=== PATIENT | male | born 1960 | race Two or more races ===

== ENCOUNTER 2016-11-05 15:47 | Inpatient (IN) | payer MEDICAID ==
[~2016-11-05] VITALS: Ht 185.4 cm; Wt 99.8 kg
[~2016-11-05 15:47] MED LIST: AUGMENTIN 875-1 EAC1 ORAL; BISACODYL5 MG ORAL; DOCUSATE SODIU100 MG ORAL; IBUPROFEN600 MG ORAL; MILK OF MA400 MG/51 ORAL; TYLENOL325 MG ORAL
[2016-11-05] MEDS ORDERED: Acetaminophen 650 MG SUPP RECTAL ONE ×2 (15:56→16:00)
[2016-11-05 16:00] VITALS: BP 116/100
[2016-11-05] MEDS ORDERED: FLEET ENEMA133 M1 RC (16:09)
[2016-11-05] MEDS ORDERED: DULCOLAX10 MG RC (16:09)
[2016-11-05] MEDS ORDERED: MULTIVITAMINS1 EAC8 ORAL (16:09)
[2016-11-05] MEDS ORDERED: VENTOLIN HFA18 GM INH (16:09)
[2016-11-05 16:53] LABS: BASOPHILS % (AUTO) 1.5 % (0.0-2.0); EOSINOPHILS % (AUTO) 2.3 % (0.0-3.0); LYMPHOCYTES % (AUTO) 25.4 % (20.0-45.0); MEAN CORPUSCULAR HEMOGLOBIN 32.5 PG (27.0-31.0); MEAN CORPUSCULAR HGB CONC 32.4 G/DL (32.0-36.0); MEAN CORPUSCULAR VOLUME 100 FL (80-99); MEAN PLATELET VOLUME 11.5 FL (6.5-10.1); MONOCYTES % (AUTO) 6.9 % (1.0-10.0); NEUTROPHILS % (AUTO) 63.9 % (45.0-75.0); PLATELET COUNT 189 K/UL (150-450); RED BLOOD COUNT 5.27 M/UL (4.70-6.10); RED CELL DISTRIBUTION WIDTH 14.5 % (11.6-14.8)
[2016-11-05 17:00] VITALS: BP 126/88
[2016-11-05 17:03] LABS: TROPONIN I < 0.30 ng/mL (<=0.30)
[2016-11-05 17:24] LABS: APPEARANCE,URINE CLOUDY; KETONES,URINE 1+ (NEGATIVE); LEUKOCYTE ESTERASE ,URINE 3+ (NEGATIVE); NITRITE,URINE NEGATIVE (NEGATIVE); PH,URINE 7 (4.5-8.0); PROTEIN,URINE 4+ (NEGATIVE); UROBILINOGEN,URINE 4 MG/DL (0.0-1.0)
[2016-11-05 17:31] LABS: BACTERIA,URINE MODERATE /HPF; RBC,URINE 20-30 /HPF (0 - 0); WBC,URINE TNTC /HPF (0 - 0)
[2016-11-05 17:32] LABS: TRIPLE PHOSPHATE CRYSTAL,UR MODERATE /LPF
[2016-11-05 18:00] VITALS: BP 110/87
[2016-11-05 18:12] LABS: ALANINE AMINOTRANSFERASE 22 U/L (3-41); ALBUMIN/GLOBULIN RATIO 0.7 (1.0-2.7); ASPARTATE AMINO TRANSFERASE 21 U/L (5-40); CALCIUM 9.2 mg/dL (8.6-10.2); CARBON DIOXIDE 28 mEQ/L (20-30); CHLORIDE 135 mEQ/L (98-107); CREATININE 1.1 mg/dL (0.7-1.2); GLOMERULAR FILTRATION RATE > 60 mL/min (>60); HEMOLYSIS 7; POTASSIUM 3.7 mEQ/L (3.4-4.9); TOTAL PROTEIN 9.1 g/dL (6.6-8.7)
[2016-11-05 18:23] LABS: CKMB < 1.5 ng/mL (< 6.7)
[2016-11-05 18:28] LABS: ANION GAP 16 (5-15)
[2016-11-05 18:31] LABS: SODIUM 179 mEQ/L (135-145)
--- NOTE | 2016-11-05 19:17 | Emergency Room Report ---
History of Present Illness General Chief Complaint: General Complaint Source: Medical Record Present Illness HPI 56-year-old male presents to ER for evaluation. Per EMS patient noted to be tachycardic today at the residential. Triage states the patient has fever. Patient has history of encephalopathy is unable to provide any additional history at this time. Patient showing no signs of distress. No reported shortness of breath. No other aggravating relieving factors. No other associated symptoms Allergies: Coded Allergies: CIPROFLOXACIN (Verified Allergy, Unknown, 08/23/15) Patient History Past Medical History: CVA/TIA, other - encephalopathy Past Surgical History: other - gtube Pertinent Family History: none Social History: Denies: alcohol use, drug use, smoking Immunizations: UTD Reviewed Nursing Documentation: PMH: Agreed, PSxH: Agreed Nursing Documentation-PMH Past Medical History Deferred: Pt Cognitively Impaired Hx Cardiac Problems: No Hx Gastrointestinal Problems: Yes - GTUBE Hx Neurological Problems: Yes - HYDROCEPHALUS, ENCEPHALOPATHY Hx Cerebrovascular Accident: Yes Hx Speech Problem: Yes Review of Systems All Other Systems: limited Physical Exam Vital Signs Date Time Temp Pulse Resp B/P Pulse Ox O2 Delivery O2 Flow Rate FiO2 11/05/16 15:47 98.2 141 37 122/91 95 Room Air 11/05/16 16:00 2.0 Sp02 EP Interpretation: reviewed, normal General Appearance: other - encephalopathy Head: normocephalic Eyes: bilateral eye PERRL, bilateral eye normal inspection ENT: hearing grossly normal, normal pharynx, no angioedema, normal voice Neck: normal inspection Respiratory: chest non-tender, lungs clear, normal breath sounds, speaking full sentences Cardiovascular #1: tachycardia Gastrointestinal: normal bowel sounds, non tender, soft, non-distended, no guarding, no rebound Rectal: deferred Genitourinary: no CVA tenderness Musculoskeletal: normal inspection Neurologic: other - encephaloaphy Psychiatric: other - encephalopathy Skin: normal inspection Lymphatic: normal inspection Procedures Critical Care Time Critical Care Time i. I feel this is a highly complex case requiring extensive working including EKG/Rhythm strip, Xray/CT/US, Blood/urine lab work, repeat exams while in ED, and administration of strong opiates/narcotics for pain control, admission to hospital or close patient follow up. Total time: 30 min bedside evaluation and treatment excludes procedures (EKG). Reason for critical care: Tachycardia, fever, hypernatremia Possible complications: hypotension, hypertension, OK, shock, arrhythmias, metabolic acidosis, end organ damage, respiratory failure. Interventions: Labs, IV fluids, EKG, chest x-ray. IV fluids. Tylenol. Antibiotics Course: Patient brought in for tachycardia, fever. Sodium 179, BUN/creatinine elevated. UA grossly positive for UTI. Patient given rectal Tylenol, IV fluids with tachycardia improving. Antibiotics. Consultations: nursing staff, EMS, family Performed by: Dr Campos Tolerated well condition = serious j. because of unstable vital signs this patient had a condition that could potentially threaten life or limb. I feel this is a critical patient who required my full attention while patient was considered critical. Total Critical Care Time excluding procedures was greater than 35 minutes Medical Decision Making Diagnostic Impression: Primary Impression: Hypernatremia Additional Impressions: Renal insufficiency UTI (urinary tract infection) Qualified Codes: N39.0 - Urinary tract infection, site not specified Tachycardia Encephalopathy ER Course Hospital Course 56 year-old male brought in with fever and tachycardia. History of encephalopathy Differential diagnoses include: Pneumonia, UTI, sepsis, dehydration, OK/ unstable angina Clinical course Patient placed on stretcher. On front desk monitor with tachycardia. After initial history and physical, I ordered labs, IV fluids, EKG, chest x-ray, blood cultures, UA. given rectal tylenol Labs - BUN/Cr elevated, Na 179, noted leukocytosis, troponins negative, UA grossly positive for UTI EKG- Sinus tachycardia, no ischemic changes interpreted by me CXR - no acute process Abx given. IVFs given. Tachycardia improving. Case discussed with Dr Smith and they agreed to admit patient to their service for further care and support I feel this is a highly complex case requiring extensive working including EKG/ Rhythm strip, Xray/CT/US, Blood/urine lab work, repeat exams while in ED, and administration of strong opiates/narcotics for pain control, admission to hospital or close patient follow up. Diagnosis - UTI, hypernatremia, renal insufficiency, tachycardia, encephalopathy Patient admitted to telemetry in serious condition Labs Test 11/05/16 16:16 11/05/16 17:43 White Blood Count 15.0 K/UL (4.8-10.8) Red Blood Count 5.27 M/UL (4.70-6.10) Hemoglobin 17.1 G/DL (14.2-18.0) Hematocrit 52.9 % (42.0-52.0) Mean Corpuscular Volume 100 FL (80-99) Mean Corpuscular Hemoglobin 32.5 PG (27.0-31.0) Mean Corpuscular Hemoglobin Concent 32.4 G/DL (32.0-36.0) Red Cell Distribution Width 14.5 % (11.6-14.8) Platelet Count 189 K/UL (150-450) Mean Platelet Volume 11.5 FL (6.5-10.1) Neutrophils (%) (Auto) 63.9 % (45.0-75.0) Lymphocytes (%) (Auto) 25.4 % (20.0-45.0) Monocytes (%) (Auto) 6.9 % (1.0-10.0) Eosinophils (%) (Auto) 2.3 % (0.0-3.0) Basophils (%) (Auto) 1.5 % (0.0-2.0) Urine Color Yellow Urine Appearance Cloudy Urine pH 7 (4.5-8.0) Urine Specific [place] 1.015 (1.005-1.035) Urine Protein 4+ (NEGATIVE) Urine Glucose (UA) Negative (NEGATIVE) Urine Ketones 1+ (NEGATIVE) Urine Occult Blood 5+ (NEGATIVE) Urine Nitrite Negative (NEGATIVE) Urine Bilirubin Negative (NEGATIVE) Urine Urobilinogen 4 MG/DL (0.0-1.0) Urine Leukocyte Esterase 3+ (NEGATIVE) Urine RBC 20-30 /HPF (0 - 0) Urine WBC Tntc /HPF (0 - 0) Urine Squamous Epithelial Cells None /LPF (NONE/OCC) Urine Triple Phosphate Crystals Moderate /LPF (NONE) Urine Bacteria Moderate /HPF (NONE) Lactic Acid Level 1.90 mmol/L (0.66-2.22) Troponin I < 0.30 ng/mL (<=0.30) Sodium Level 179 mEQ/L (135-145) Potassium Level 3.7 mEQ/L (3.4-4.9) Chloride Level 135 mEQ/L (98-107) Carbon Dioxide Level 28 mEQ/L (20-30) Anion Gap 16 (5-15) Blood Urea Nitrogen 57 mg/dL (7-23) Creatinine 1.1 mg/dL (0.7-1.2) Estimat Glomerular Filtration Rate > 60 mL/min (>60) Glucose Level 142 mg/dL (74-106) Calcium Level 9.2 mg/dL (8.6-10.2) Total Bilirubin 0.6 mg/dL (0.0-1.2) Aspartate Amino Transf (AST/SGOT) 21 U/L (5-40) Alanine Aminotransferase (ALT/SGPT) 22 U/L (3-41) Alkaline Phosphatase 59 U/L (40-129) Total Creatine Kinase 80 U/L (38-174) Creatine Kinase MB < 1.5 ng/mL (< 6.7) Creatine Kinase MB Relative Index Pro-B-Type Natriuretic Peptide 41 pg/mL (0-125) Total Protein 9.1 g/dL (6.6-8.7) Albumin 3.8 g/dL (3.5-5.2) Globulin 5.3 g/dL Albumin/Globulin Ratio 0.7 (1.0-2.7) EKG Diagnostic Results Rate: tachycardiac Rhythm: NSR ST Segments: no acute changes ASA given to the pt in ED: No Rhythm Strip Diag. Results EP Interpretation: yes Rhythm: NSR, no PVC's, no ectopy Chest X-Ray Diagnostic Results Chest X-Ray Diagnostic Results : Chest X-Ray Ordered: Yes # of Views/Limited/Complete: 1 View Indication: Other - fever EP Interpretation: Yes Interpretation: no consolidation, no effusion, no pneumothorax, no acute cardiopulmonary disease Impression: No acute disease Interpreting ER Provider: Electronically signed by Willie Campos MD Last Vital Signs Date Time Temp Pulse Resp B/P Pulse Ox O2 Delivery O2 Flow Rate FiO2 11/05/16 18:04 99.6 11/05/16 18:00 123 31 110/87 99 Nasal Cannula 2.0 Status: improved Disposition: ADMITTED INPATIENT Condition: Serious Referrals: NOT CHOSEN NASRIN/,REFERRING (PCP) WILLIE CAMPOS M.D. Nov 05, 2016 19:17
[2016-11-05 19:45] VITALS: BP 109/85
[2016-11-05] MEDS: Albuterol 90mcg Inhaler 8gm INH SCH (21:00)
[2016-11-05] MEDS ORDERED: Fleet's Enema 133ml RECTAL SCH (21:00)
[2016-11-05] MEDS ORDERED: Fleet's Enema 133ml RECTAL PRN (22:00)
[2016-11-05] MEDS ORDERED: Bisacodyl EC 5mg tab ORAL PRN (22:15)
[2016-11-05] MEDS: Vancomycin 1.5 GM/D5W 250ML IVPB SCH (22:50)
[2016-11-05 23:43] VITALS: BP 114/80
[2016-11-06] MEDS: Piperacillin/Tazobactam 3.375 GM in D5W 110 ML IVPB SCH ×3 (01:27→17:33)
[2016-11-06] MEDS: Albuterol 90mcg Inhaler 8gm INH SCH ×6 (01:30→23:00)
[2016-11-06 04:00] VITALS: BP 113/80
[2016-11-06] MEDS: NovoLOG Insulin Flexpen SUBQ SCH ×3 (06:18→16:50)
[2016-11-06] MEDS ORDERED: NovoLOG Insulin Flexpen SUBQ SCH ×2 (06:30)
[2016-11-06 06:55] LABS: BASOPHILS % (AUTO) 1.3 % (0.0-2.0); EOSINOPHILS % (AUTO) 3.6 % (0.0-3.0); LYMPHOCYTES % (AUTO) 24.1 % (20.0-45.0); MEAN CORPUSCULAR HEMOGLOBIN 31.2 PG (27.0-31.0); MEAN CORPUSCULAR HGB CONC 30.9 G/DL (32.0-36.0); MEAN CORPUSCULAR VOLUME 101 FL (80-99); MEAN PLATELET VOLUME 10.5 FL (6.5-10.1); MONOCYTES % (AUTO) 7.2 % (1.0-10.0); NEUTROPHILS % (AUTO) 63.8 % (45.0-75.0); PLATELET COUNT 186 K/UL (150-450); RED BLOOD COUNT 5.04 M/UL (4.70-6.10); RED CELL DISTRIBUTION WIDTH 14.4 % (11.6-14.8); WHITE BLOOD COUNT 12.7 K/UL (4.8-10.8)
[2016-11-06 07:29] LABS: ALANINE AMINOTRANSFERASE 20 U/L (3-41); ALBUMIN/GLOBULIN RATIO 0.6 (1.0-2.7); ANION GAP 12 (5-15); ASPARTATE AMINO TRANSFERASE 19 U/L (5-40); CALCIUM 9.2 mg/dL (8.6-10.2); CARBON DIOXIDE 30 mEQ/L (20-30); CHLORIDE 135 mEQ/L (98-107); CREATININE 1.2 mg/dL (0.7-1.2); GLOMERULAR FILTRATION RATE > 60 mL/min (>60); HEMOLYSIS 4; POTASSIUM 3.8 mEQ/L (3.4-4.9); TOTAL PROTEIN 8.7 g/dL (6.6-8.7)
[2016-11-06 07:33] LABS: SODIUM 177 mEQ/L (135-145)
[2016-11-06 08:00] VITALS: BP 103/71
[2016-11-06] MEDS: Docusate 100mg/10ml Liq GT SCH (08:43)
[2016-11-06] MEDS: Bisacodyl EC 5mg tab ORAL SCH (08:44)
[2016-11-06] MEDS: Multivitamin w/Minerals tab ORAL SCH (08:44)
[2016-11-06] MEDS ORDERED: Docusate 100mg cap ORAL SCH (09:00)
[2016-11-06] MEDS ORDERED: Milk of Magnesia 30ml Ud ORAL SCH (09:00)
[2016-11-06] MEDS: Vancomycin 1.5 GM/D5W 250ML IVPB SCH ×2 (10:26→22:45)
[2016-11-06 12:00] VITALS: BP 101/73
--- NOTE | 2016-11-06 13:30 | History and Physical Report ---
DATE OF ADMISSION: 11/05/2016 CHIEF COMPLAINT: Sepsis, acute renal failure, dehydration, hypernatremia, and history of stroke. HISTORY OF PRESENT ILLNESS: The patient is an unfortunately elderly male with history of stroke and encephalopathy. He has a history of suprapubic catheter and a G-tube because of aphagia. He is transferred due to altered mental status. On evaluation in the emergency room, the patient was tachycardiac. He had severe hypernatremia with a sodium of 180 and white count of 15,000. He had the evidence of urinary tract infection. The patient has been started on broad-spectrum IV antibiotic therapy and now admitted. PAST MEDICAL HISTORY: As above. PAST SURGICAL HISTORY: Includes a suprapubic catheter and a G-tube. CURRENT MEDICATIONS: Reconciled and reviewed. ALLERGIES: Include Cipro. FAMILY HISTORY: Noncontributory. SOCIAL HISTORY: There is no known history of tobacco, ethanol, or drugs. REVIEW OF SYSTEMS: Unobtainable as the patient is confused. PHYSICAL EXAMINATION: VITAL SIGNS: Temperature 98 degrees, pulse 91, blood pressure 113/80, pulse of 128, and respirations 20. GENERAL: The patient is well-developed, chronically ill-appearing male, in no apparent distress. HEART: Regular rate and rhythm. LUNGS: Clear. ABDOMEN: soft, nontender, and nondistended. EXTREMITIES: Without clubbing, cyanosis, or edema. LABORATORY DATA: Labs, sodium 179. White count 55501. Creatinine of 1.1. ASSESSMENT: This is an elderly male admitted with a history of stroke, admitted with severe hypernatremia, dehydration, and sepsis secondary to urinary tract infection. PLAN: Intravenous antibiotics. Hypotonic fluids. Monitor lytes. We will follow pending cultures. The patient's overall prognosis is poor. Gabo Smith M.D. DR: NICOLÁS JOB#: [id number] CC:
[2016-11-06] MEDS ORDERED: 1/2 NS 1000ml IV ONE (14:08)
[2016-11-06] MEDS ORDERED: Tubing IV Secondary IV ONE (14:08)
[2016-11-06 16:00] VITALS: BP 147/83
--- NOTE | 2016-11-06 16:15 | Diagnostic Imaging Report ---
Indication: AMS Technique: One view of the chest Comparison: none Findings: There are multiple old healed left rib fracture deformities. Some scarring is seen in the right suprahilar region. Lungs and pleural spaces are otherwise clear. Heart size is normal. The aorta is tortuous Impression: No acute process. Findings as noted
[2016-11-06 16:41] LABS: ALANINE AMINOTRANSFERASE 18 U/L (3-41); ALBUMIN/GLOBULIN RATIO 0.6 (1.0-2.7); ASPARTATE AMINO TRANSFERASE 18 U/L (5-40); CALCIUM 8.7 mg/dL (8.6-10.2); CARBON DIOXIDE 29 mEQ/L (20-30); CHLORIDE 132 mEQ/L (98-107); CREATININE 1.1 mg/dL (0.7-1.2); GLOMERULAR FILTRATION RATE > 60 mL/min (>60); HEMOLYSIS 1; POTASSIUM 3.8 mEQ/L (3.4-4.9); TOTAL PROTEIN 7.8 g/dL (6.6-8.7)
[2016-11-06 16:46] LABS: ANION GAP 9 (5-15)
[2016-11-06 16:51] LABS: SODIUM 170 mEQ/L (135-145)
--- NOTE | 2016-11-06 18:11 | Cardiology Report ---
APPROVED REPORT EKG Measurement Heart [id number] 130P5 [id number] Sinus tachycardia Indeterminate axis Cannot rule out Anterior infarct, age undetermined Abnormal ECG
[2016-11-06 20:00] VITALS: BP 103/71
[2016-11-06] MEDS ORDERED: Milk of Magnesia 30ml Ud ORAL PRN (21:00)
[2016-11-07] VITALS: BP 106/73
[2016-11-07] MEDS: Piperacillin/Tazobactam 3.375 GM in D5W 110 ML IVPB SCH ×2 (01:03→08:18)
[2016-11-07] MEDS: Albuterol 90mcg Inhaler 8gm INH SCH ×6 (02:50→23:00)
[2016-11-07 04:00] VITALS: BP 112/69
[2016-11-07] MEDS: NovoLOG Insulin Flexpen SUBQ SCH ×3 (06:55→17:31)
[2016-11-07 08:00] VITALS: BP 94/62
--- NOTE | 2016-11-07 08:45 | General Progress Note ---
Assessment/Plan Problem List: (1) Hypernatremia ICD Codes: E87.0 - Hyperosmolality and hypernatremia SNOMED: 57212209 (2) UTI (urinary tract infection) ICD Codes: N39.0 - Urinary tract infection, site not specified SNOMED: 95819324, 706587245 Qualifiers: Qualified Codes: N39.0 - Urinary tract infection, site not specified (3) Tachycardia ICD Codes: R00.0 - Tachycardia, unspecified SNOMED: 9075580, 269348900 (4) Renal insufficiency ICD Codes: N28.9 - Disorder of kidney and ureter, unspecified SNOMED: 311507093, 239486962 (5) Encephalopathy ICD Codes: G93.40 - Encephalopathy, unspecified SNOMED: 73053063, 467172303 Status: stable, progressing Assessment/Plan ivf iv abx monitor lytes gt feeds xarelto watch for bleeding Subjective ROS Limited/Unobtainable: Yes Constitutional: Reports: malaise, weakness HEENT: Reports: no symptoms Cardiovascular: Reports: no symptoms Respiratory: Reports: no symptoms Gastrointestinal/Abdominal: Reports: difficulty swallowing Genitourinary: Reports: no symptoms 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: Reports: pre-existing deficit Endocrine: Reports: no symptoms Hematologic/Lymphatic: Reports: anemia Allergies: Coded Allergies: CIPROFLOXACIN (Verified Allergy, Unknown, 08/23/15) All Systems: reviewed and negative except above Subjective labs improving. on xarelto for dvt. labs improving Objective Last 24 Hour Vital Signs Date Time Temp Pulse Resp B/P Pulse Ox O2 Delivery O2 Flow Rate FiO2 11/07/16 08:00 97.9 106 20 94/62 95 Nasal Cannula 2.0 11/07/16 07:53 Nasal Cannula 11/07/16 07:51 106 20 99 Nasal Cannula 2.0 28 11/07/16 07:49 99 Nasal Cannula 2.0 28 11/07/16 07:49 Nasal Cannula 2.0 28 11/07/16 04:00 2.0 11/07/16 04:00 98.8 112 19 112/69 99 Nasal Cannula 2.0 11/07/16 04:00 115 11/07/16 00:00 2.0 11/07/16 00:00 121 11/07/16 00:00 98.2 116 18 106/73 100 Nasal Cannula 2.0 11/06/16 20:21 Nasal Cannula 2.0 28 11/06/16 20:21 98 Nasal Cannula 2.0 28 11/06/16 20:00 97.5 112 18 103/71 95 Room Air 11/06/16 20:00 2.0 11/06/16 16:00 98.1 126 20 147/83 100 Nasal Cannula 3.0 11/06/16 16:00 2.0 11/06/16 16:00 125 11/06/16 12:00 98.4 129 18 101/73 100 Nasal Cannula 3.0 11/06/16 12:00 2.0 11/06/16 11:53 123 Intake and Output 11/06/16 11/07/16 19:00 07:00 Intake Total 1886 ml 1866.25 ml Output Total 400 ml 475 ml Balance 1486 ml 1391.25 ml Intake Free Water 500 ml 450 ml IV Total 966 ml 816.25 ml Tube Feeding 420 ml 600 ml Output Urine Total 400 ml 475 ml # Bowel Movements 2 Laboratory Tests 11/06/16 16:00: Sodium Level 170*H, Potassium Level 3.8, Chloride Level 132H, Carbon Dioxide Level 29, Anion Gap 9, Blood Urea Nitrogen 51H, Creatinine 1.1, Estimat Glomerular Filtration Rate > 60, Glucose Level 165H, Calcium Level 8.7, Total Bilirubin 0.5, Aspartate Amino Transf (AST/SGOT) 18, Alanine Aminotransferase ( ALT/SGPT) 18, Alkaline Phosphatase 59, Total Protein 7.8, Albumin 3.2L, Globulin 4.6, Albumin/Globulin Ratio 0.6L Height (Feet): 6 Height (Inches): 1.00 Weight (Pounds): 220 General Appearance: WD/WN, lethargic, confused Neck: supple Cardiovascular: regular rhythm Respiratory/Chest: lungs clear, normal breath sounds, no respiratory distress Abdomen: normal bowel sounds, non tender, soft, no organomegaly Edema: no edema noted Arm (L), no edema noted Arm (R), no edema noted Leg (L), no edema noted Leg (R), no edema noted Pedal (L), no edema noted Pedal (R), no edema noted Generalized Neurologic: unresponsive, aphasia CALEB LINDSAY Nov 07, 2016 08:45
[2016-11-07] MEDS: Bisacodyl EC 5mg tab ORAL SCH (09:04)
[2016-11-07] MEDS: Docusate 100mg/10ml Liq GT SCH (09:04)
[2016-11-07] MEDS: Xarelto 15mg tab GT SCH ×2 (09:04→17:30)
[2016-11-07] MEDS: Multivitamin w/Minerals tab ORAL SCH (09:04)
[2016-11-07 09:17] LABS: ALANINE AMINOTRANSFERASE 16 U/L (3-41); ALBUMIN/GLOBULIN RATIO 0.6 (1.0-2.7); ASPARTATE AMINO TRANSFERASE 20 U/L (5-40); CALCIUM 8.3 mg/dL (8.6-10.2); CARBON DIOXIDE 30 mEQ/L (20-30); CHLORIDE 125 mEQ/L (98-107); CREATININE 1.1 mg/dL (0.7-1.2); GLOMERULAR FILTRATION RATE > 60 mL/min (>60); HEMOLYSIS 1; POTASSIUM 3.4 mEQ/L (3.4-4.9); TOTAL PROTEIN 7.5 g/dL (6.6-8.7)
[2016-11-07 09:23] LABS: ANION GAP 12 (5-15)
[2016-11-07 09:32] LABS: SODIUM 167 mEQ/L (135-145)
[2016-11-07 12:15] VITALS: BP 112/66
[2016-11-07] MEDS: cefTRIAXone 1 GM in D5W 55 ML IVPB SCH (12:15)
--- NOTE | 2016-11-07 15:30 | Consultation ---
DATE OF CONSULTATION: 11/07/2016 INFECTIOUS DISEASES CONSULTATION REFERRING PHYSICIAN: Gabo Smith M.D. REASON FOR CONSULTATION: Leukocytosis and urinary tract infection. HISTORY OF PRESENTING ILLNESS: This is a 56-year-old gentleman with history of stroke and encephalopathy, who came in with altered mental status. He was found to have severe hypernatremia with a sodium of 180 and white count of 15,000. He was also found to have a urinary tract infection and an Infectious Diseases consultation has been obtained for antibiotics. PAST MEDICAL HISTORY: 1. History of stroke. 2. Encephalopathy. 3. Status post G-tube placement. 4. History of suprapubic catheter placement. SOCIAL HISTORY: Unknown. FAMILY HISTORY: Unknown. REVIEW OF SYSTEMS: Unable to obtain currently. MEDICATIONS: As an inpatient, the patient is on Xarelto, milk of magnesia, Dulcolax, multivitamin, Colace, Prevacid, albuterol, insulin, Zosyn,Tylenol, and IV vancomycin. ALLERGIES: The patient is allergic to ciprofloxacin. PHYSICAL EXAMINATION: VITAL SIGNS: Temperature of 97.9, T-max of 98.8, pulse of 106, respiratory rate 20, blood pressure 94/62, and O2 saturation of 95%. HEENT: Pupils equally reactive to light and accommodation. Mouth appears clean without thrush. NECK: Supple. No adenopathy. No JVD. CARDIOVASCULAR: Regular rate and rhythm. No murmurs. LUNGS: Clear to auscultation bilaterally. No crackles. No wheezes. ABDOMEN: Soft and nontender. G-tube site appears clean. EXTREMITIES: No cyanosis, no clubbing. Edema noted bilaterally. LABORATORY AND DIAGNOSTIC DATA: On 11/05/2016, white count was 15. On 11/06/2016, white count was 12.7, hemoglobin 15.7, hematocrit 50.9, MCV 101, platelet count of 186,000, with neutrophils of 63%. Sodium 167, potassium 3.4, chloride 125, bicarb 30, BUN 40, creatinine 1.1, glucose 203, and calcium 8.3. Total bilirubin 0.4. AST 20, ALT 16, and alkaline phosphatase 51. Total protein 7.5. Albumin of 3. UA showing too numerous to count white cells. Blood cultures are negative from 11/05/2016. A 11/05/2016 nasal swab was positive for MRSA. A 11/05/2016 rectal swab was negative for VRE. A 11/05/2016 urine culture growing Proteus, which is ceftriaxone susceptible, cefazolin susceptible, ertapenem susceptible, piperacillin/tazobactam susceptible, and Levaquin susceptible. Chest x-ray from 11/05/2016 showing no acute process. ASSESSMENT: 1. This is a 56-year-old gentleman with history of stroke and encephalopathy, who comes in and was found to have Proteus urinary tract infection. 2. Leukocytosis is improving. 3. Hypernatremia is improving. PLAN: 1. Discontinue vancomycin and Zosyn. 2. We will start the patient on ceftriaxone and continue five more days. 3. We will follow up cultures. I would like to thank, Dr. Smith, for this consultation. Moon Marques M.D. DR: JOSE JOB#: [id number] CC: Gabo Smith M.D.
[2016-11-07 16:15] VITALS: BP 98/66
[2016-11-07 20:00] VITALS: BP 100/65
[2016-11-08] VITALS: BP 100/60
[2016-11-08] MEDS: Albuterol 90mcg Inhaler 8gm INH SCH ×6 (02:47→22:49)
[2016-11-08 04:00] VITALS: BP 100/60
[2016-11-08] MEDS: NovoLOG Insulin Flexpen SUBQ SCH ×4 (06:00→17:41)
[2016-11-08 08:16] VITALS: BP 112/78
[2016-11-08] MEDS: Multivitamin w/Minerals tab ORAL SCH (08:25)
[2016-11-08] MEDS: Xarelto 15mg tab GT SCH ×2 (08:25→17:40)
[2016-11-08] MEDS: Bisacodyl EC 5mg tab ORAL SCH (08:26)
[2016-11-08] MEDS: Docusate 100mg/10ml Liq GT SCH (08:26)
[2016-11-08 08:53] LABS: ALANINE AMINOTRANSFERASE 15 U/L (3-41); ALBUMIN/GLOBULIN RATIO 0.6 (1.0-2.7); ANION GAP 10 (5-15); ASPARTATE AMINO TRANSFERASE 19 U/L (5-40); CALCIUM 7.9 mg/dL (8.6-10.2); CARBON DIOXIDE 29 mEQ/L (20-30); CHLORIDE 117 mEQ/L (98-107); CREATININE 0.9 mg/dL (0.7-1.2); GLOMERULAR FILTRATION RATE > 60 mL/min (>60); HEMOLYSIS 1; POTASSIUM 3.3 mEQ/L (3.4-4.9); SODIUM 156 mEQ/L (135-145); TOTAL PROTEIN 7.1 g/dL (6.6-8.7)
[2016-11-08] MEDS ORDERED: KCl 10% 40mEq/30ml liquid NG ONE ×2 (10:00→14:30)
[2016-11-08] MEDS: cefTRIAXone 1 GM in D5W 55 ML IVPB SCH (11:10)
[2016-11-08] MEDS ORDERED: NS 275ml ONE (11:20)
[2016-11-08] MEDS ORDERED: Sterile Water Irrig 1000ml IRRIG ONE (11:20)
[2016-11-08 11:28] VITALS: BP 97/66
--- NOTE | 2016-11-08 11:50 | Infectious Diseases Prog Note ---
Assessment/Plan Assessment/Plan antibiotics : ceftriaxone A 1. proteus UTI 2. leucocytosis improving 3. hypernatremia improving 4. CVA P 1. continue ceftriaxone iv 4 more days 2. will follow up cultures Subjective ROS Limited/Unobtainable: Yes Allergies: Coded Allergies: CIPROFLOXACIN (Verified Allergy, Unknown, 08/23/15) Objective Vital Signs Last 24 Hour Vital Signs Date Time Temp Pulse Resp B/P Pulse Ox O2 Delivery O2 Flow Rate FiO2 11/08/16 11:28 97.5 74 21 97/66 97 Room Air 11/08/16 11:11 Room Air 11/08/16 11:11 Room Air 11/08/16 08:16 97.7 85 21 112/78 98 Room Air 11/08/16 08:00 91 11/08/16 07:30 Nasal Cannula 11/08/16 07:30 Nasal Cannula 2.0 11/08/16 07:30 88 16 97 Nasal Cannula 2.0 11/08/16 07:30 97 Nasal Cannula 2.0 11/08/16 04:00 95 11/08/16 04:00 98.1 89 20 100/60 97 Room Air 11/08/16 02:50 Nasal Cannula 11/08/16 02:50 Nasal Cannula 11/08/16 01:30 Nasal Cannula 11/08/16 01:30 Nasal Cannula 11/08/16 00:00 98.1 89 20 100/60 97 Room Air 11/08/16 00:00 91 11/07/16 20:00 98.7 92 20 100/65 97 11/07/16 20:00 91 11/07/16 19:30 Nasal Cannula 11/07/16 19:30 Nasal Cannula 2.0 28 11/07/16 19:30 99 Nasal Cannula 2.0 28 11/07/16 19:30 Nasal Cannula 11/07/16 16:15 97.6 99 16 98/66 97 Room Air 11/07/16 15:52 100 11/07/16 13:16 Nasal Cannula 11/07/16 13:16 Nasal Cannula 11/07/16 12:15 94.3 100 12 112/66 94 Room Air Height (Feet): 6 Height (Inches): 1.00 Weight (Pounds): 220 Respiratory/Chest: lungs clear Cardiovascular: normal rate, regular rhythm, no gallop/murmur Abdomen: soft, non tender Extremities: no edema Microbiology Date/Time Source Procedure Growth Status 11/05/16 16:16 Blood Blood Culture - Preliminary NO GROWTH AFTER 48 HOURS Resulted 11/05/16 16:00 Blood Blood Culture - Preliminary NO GROWTH AFTER 48 HOURS Resulted 11/05/16 16:16 Nasal Nares MRSA Culture - Final Staphylococcus Aureus - Mrsa Complete 11/05/16 16:16 Urine,Clean Catch Urine Culture - Final Proteus Mirabilis Complete 11/05/16 16:16 Rectum VRE Culture - Final NO VANCOMYCIN RESISTANT ENTEROCOCCUS ... Complete Laboratory Tests Test 11/08/16 07:40 Sodium Level 156 mEQ/L (135-145) #H Potassium Level 3.3 mEQ/L (3.4-4.9) L Chloride Level 117 mEQ/L (98-107) H Carbon Dioxide Level 29 mEQ/L (20-30) Anion Gap 10 (5-15) Blood Urea Nitrogen 28 mg/dL (7-23) H Creatinine 0.9 mg/dL (0.7-1.2) Estimat Glomerular Filtration Rate > 60 mL/min (>60) Glucose Level 158 mg/dL (74-106) H Calcium Level 7.9 mg/dL (8.6-10.2) L Total Bilirubin 0.2 mg/dL (0.0-1.2) Aspartate Amino Transf (AST/SGOT) 19 U/L (5-40) Alanine Aminotransferase (ALT/SGPT) 15 U/L (3-41) Alkaline Phosphatase 47 U/L (40-129) Total Protein 7.1 g/dL (6.6-8.7) Albumin 2.9 g/dL (3.5-5.2) L Globulin 4.2 g/dL Albumin/Globulin Ratio 0.6 (1.0-2.7) L LYNETTE MTZ Nov 08, 2016 11:50
--- NOTE | 2016-11-08 14:25 | General Progress Note ---
Assessment/Plan Problem List: (1) Hypernatremia ICD Codes: E87.0 - Hyperosmolality and hypernatremia SNOMED: 76511896 (2) UTI (urinary tract infection) ICD Codes: N39.0 - Urinary tract infection, site not specified SNOMED: 79338178, 250317586 Qualifiers: Qualified Codes: N39.0 - Urinary tract infection, site not specified (3) Tachycardia ICD Codes: R00.0 - Tachycardia, unspecified SNOMED: 3580770, 722183162 (4) Renal insufficiency ICD Codes: N28.9 - Disorder of kidney and ureter, unspecified SNOMED: 792140642, 359698169 (5) Encephalopathy ICD Codes: G93.40 - Encephalopathy, unspecified SNOMED: 15541580, 350842361 Status: stable, progressing Assessment/Plan ivf iv abx monitor lytes gt feeds xarelto watch for bleeding Subjective ROS Limited/Unobtainable: Yes Constitutional: Reports: malaise, weakness HEENT: Reports: no symptoms Cardiovascular: Reports: no symptoms Respiratory: Reports: no symptoms Gastrointestinal/Abdominal: Reports: difficulty swallowing Genitourinary: Reports: no symptoms 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: Reports: pre-existing deficit Endocrine: Reports: no symptoms Hematologic/Lymphatic: Reports: no symptoms Allergies: Coded Allergies: CIPROFLOXACIN (Verified Allergy, Unknown, 08/23/15) All Systems: reviewed and negative except above Subjective labs improving. on xarelto for dvt. Ucx noted. on rocephin Objective Last 24 Hour Vital Signs Date Time Temp Pulse Resp B/P Pulse Ox O2 Delivery O2 Flow Rate FiO2 11/08/16 12:00 89 11/08/16 11:28 97.5 74 21 97/66 97 Room Air 11/08/16 11:11 Room Air 11/08/16 11:11 Room Air 11/08/16 08:16 97.7 85 21 112/78 98 Room Air 11/08/16 08:00 91 11/08/16 07:30 Nasal Cannula 11/08/16 07:30 Nasal Cannula 2.0 11/08/16 07:30 88 16 97 Nasal Cannula 2.0 11/08/16 07:30 97 Nasal Cannula 2.0 11/08/16 04:00 95 11/08/16 04:00 98.1 89 20 100/60 97 Room Air 11/08/16 02:50 Nasal Cannula 11/08/16 02:50 Nasal Cannula 11/08/16 01:30 Nasal Cannula 11/08/16 01:30 Nasal Cannula 11/08/16 00:00 98.1 89 20 100/60 97 Room Air 11/08/16 00:00 91 11/07/16 20:00 98.7 92 20 100/65 97 11/07/16 20:00 91 11/07/16 19:30 Nasal Cannula 11/07/16 19:30 Nasal Cannula 2.0 28 11/07/16 19:30 99 Nasal Cannula 2.0 28 11/07/16 19:30 Nasal Cannula 11/07/16 16:15 97.6 99 16 98/66 97 Room Air 11/07/16 15:52 100 Intake and Output 11/07/16 11/08/16 19:00 07:00 Intake Total 2400.0 ml 2270 ml Output Total 200 ml 300 ml Balance 2200.0 ml 1970 ml Intake Free Water 450 ml 450 ml IV Total 1170.0 ml 1100 ml Tube Feeding 720 ml 720 ml Other 60 ml Output Urine Total 200 ml 300 ml Laboratory Tests 11/08/16 07:40: Sodium Level 156#H, Potassium Level 3.3L, Chloride Level 117H, Carbon Dioxide Level 29, Anion Gap 10, Blood Urea Nitrogen 28H, Creatinine 0.9, Estimat Glomerular Filtration Rate > 60, Glucose Level 158H, Calcium Level 7.9L, Total Bilirubin 0.2, Aspartate Amino Transf (AST/SGOT) 19, Alanine Aminotransferase ( ALT/SGPT) 15, Alkaline Phosphatase 47, Total Protein 7.1, Albumin 2.9L, Globulin 4.2, Albumin/Globulin Ratio 0.6L Height (Feet): 6 Height (Inches): 1.00 Weight (Pounds): 220 General Appearance: WD/WN, confused Cardiovascular: regular rhythm Respiratory/Chest: lungs clear Abdomen: normal bowel sounds, non tender, soft, no organomegaly Edema: no edema noted Arm (L), no edema noted Arm (R), no edema noted Leg (L), no edema noted Leg (R), no edema noted Pedal (L), no edema noted Pedal (R), no edema noted Generalized Neurologic: disoriented, unresponsive, aphasia UOMOTO,CALEB Nov 08, 2016 14:24
[2016-11-08] MEDS ORDERED: Milk of Magnesia 30ml Ud GT PRN (14:50)
[2016-11-08 15:47] VITALS: BP 95/57
--- NOTE | 2016-11-08 19:25 | Diagnostic Imaging Report ---
APPROVED REPORT CPT Code: 61757 Present Symptoms Shortness of breath Comments: Technically difficult study due to BLE contracture of hip and knee. RIGHT LEG: Venous imaging reveals a patent deep venous system. There is no evidence of thrombus within the femoral, popliteal or tibial segments. The greater saphenous vein is also within normal limits. Doppler indicates normal spontaneous flow within these segments. LEFT LEG: Venous imaging reveals acute thrombus in the superficial femoral and popliteal veins. Remainder of the deep venous system within normal limits. No evidence of thrombus in the common femoral or calf veins. Greater saphenous vein also within normal limit. CANDI Pitts was informed at 1400 hours.
[2016-11-08 20:00] VITALS: BP 114/68
[2016-11-09] VITALS (7 sets, daily range): BP systolic 99–123; BP diastolic 62–78
[2016-11-09] MEDS: Albuterol 90mcg Inhaler 8gm INH SCH ×6 (03:00→23:38)
[2016-11-09] MEDS: NovoLOG Insulin Flexpen SUBQ SCH ×5 (06:00→23:58)
[2016-11-09 07:27] LABS: ALANINE AMINOTRANSFERASE 15 U/L (3-41); ALBUMIN/GLOBULIN RATIO 0.7 (1.0-2.7); ANION GAP 10 (5-15); ASPARTATE AMINO TRANSFERASE 21 U/L (5-40); CALCIUM 7.7 mg/dL (8.6-10.2); CARBON DIOXIDE 28 mEQ/L (20-30); CHLORIDE 111 mEQ/L (98-107); CREATININE 0.6 mg/dL (0.7-1.2); GLOMERULAR FILTRATION RATE > 60 mL/min (>60); HEMOLYSIS 5; POTASSIUM 3.6 mEQ/L (3.4-4.9); SODIUM 149 mEQ/L (135-145); TOTAL PROTEIN 6.8 g/dL (6.6-8.7)
[2016-11-09] MEDS: Bisacodyl EC 5mg tab ORAL SCH (09:30)
[2016-11-09] MEDS: Multivitamins W/Minerals 15 ML UDC GT SCH (09:30)
[2016-11-09] MEDS: Docusate 100mg/10ml Liq GT SCH (09:30)
[2016-11-09] MEDS: Xarelto 15mg tab GT SCH ×2 (09:31→17:59)
[2016-11-09] MEDS ORDERED: CEFTRIAXON1 GM/50 ML IV (09:58)
[2016-11-09] MEDS ORDERED: XARELTO15 MG GT (09:58)
[2016-11-09] MEDS: cefTRIAXone 1 GM in D5W 55 ML IVPB SCH (12:52)
--- NOTE | 2016-11-09 14:38 | Infectious Diseases Prog Note ---
Assessment/Plan Assessment/Plan A 1. proteus UTI 2. leucocytosis improving 3. hypernatremia improving 4. CVA P 1. continue ceftriaxone iv 3 more days 2. will follow up cultures Subjective ROS Limited/Unobtainable: Yes Allergies: Coded Allergies: CIPROFLOXACIN (Verified Allergy, Unknown, 08/23/15) Objective Vital Signs Last 24 Hour Vital Signs Date Time Temp Pulse Resp B/P Pulse Ox O2 Delivery O2 Flow Rate FiO2 11/09/16 12:22 Room Air 11/09/16 11:57 98.0 78 18 122/71 97 Room Air 11/09/16 11:00 89 17 97 Room Air 11/09/16 08:00 97.7 88 18 116/62 98 Room Air 11/09/16 07:37 Room Air 11/09/16 07:34 87 18 97 Room Air 11/09/16 07:33 Room Air 11/09/16 07:31 97 Room Air 11/09/16 04:00 97.9 66 18 116/68 93 Room Air 11/09/16 04:00 92 11/09/16 03:20 Room Air 11/09/16 03:20 Room Air 11/09/16 00:00 97.7 90 18 106/62 99 Room Air 11/09/16 00:00 92 11/08/16 22:49 Room Air 11/08/16 22:49 Room Air 11/08/16 20:29 Room Air 11/08/16 20:29 99 Room Air 11/08/16 20:00 97.2 82 20 114/68 97 Room Air 11/08/16 20:00 83 11/08/16 19:00 Room Air 11/08/16 19:00 Room Air 11/08/16 16:00 89 11/08/16 15:47 98.2 95 20 95/57 96 Room Air 11/08/16 14:50 Room Air 11/08/16 14:50 Room Air Height (Feet): 6 Height (Inches): 1.00 Weight (Pounds): 220 General Appearance: no acute distress HEENT: mucous membranes moist Respiratory/Chest: lungs clear Cardiovascular: normal rate Abdomen: soft, non tender, other - GT feeding Extremities: no edema, other - contracted left hand 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: aphasia, other - opens eyes Laboratory Tests Test 11/09/16 04:40 Sodium Level 149 mEQ/L (135-145) H Potassium Level 3.6 mEQ/L (3.4-4.9) Chloride Level 111 mEQ/L (98-107) H Carbon Dioxide Level 28 mEQ/L (20-30) Anion Gap 10 (5-15) Blood Urea Nitrogen 20 mg/dL (7-23) Creatinine 0.6 mg/dL (0.7-1.2) L Estimat Glomerular Filtration Rate > 60 mL/min (>60) Glucose Level 126 mg/dL (74-106) H Calcium Level 7.7 mg/dL (8.6-10.2) L Total Bilirubin 0.2 mg/dL (0.0-1.2) Aspartate Amino Transf (AST/SGOT) 21 U/L (5-40) Alanine Aminotransferase (ALT/SGPT) 15 U/L (3-41) Alkaline Phosphatase 47 U/L (40-129) Total Protein 6.8 g/dL (6.6-8.7) Albumin 2.9 g/dL (3.5-5.2) L Globulin 3.9 g/dL Albumin/Globulin Ratio 0.7 (1.0-2.7) L Current Medications Medications (Trade) Dose Ordered Sig/Fab Route PRN Reason Start Time Stop Time Status Last Admin Dose Admin Acetaminophen (Tylenol) 650 mg DAILY PRN ORAL For Pain 11/05/16 21:00 12/05/16 20:59 Acetaminophen (Tylenol) 650 mg Q4HR PRN ORAL Fever/Headache/Mild Pain 11/05/16 19:45 12/05/16 19:44 11/08/16 13:14 Albuterol Sulfate (Proventil MDI) 1 puff Q4HRT INH 11/06/16 07:00 12/05/16 20:59 11/08/16 07:30 Bisacodyl (Dulcolax) 10 mg DAILY ORAL 11/06/16 09:00 12/06/16 08:59 11/09/16 09:30 Bisacodyl (Dulcolax) 10 mg DAILY PRN ORAL Constipation 11/05/16 22:15 12/05/16 22:14 Ceftriaxone Sodium/Dextrose (Rocephin/D5W) 55 ml @ 110 mls/hr Q24H IVPB 11/07/16 12:00 11/14/16 11:59 11/09/16 12:52 Dextrose (D5W 1000ml) 1,000 ml @ 50 mls/hr Q20H IV 11/08/16 10:00 12/08/16 09:59 11/08/16 17:40 Docusate Sodium (Colace) 250 mg DAILY GT 11/06/16 09:00 12/06/16 08:59 11/09/16 09:30 Insulin Aspart (NovoLOG) per MD to carry nurs... EVERY 6 HOURS SUBQ 11/07/16 12:00 12/07/16 11:59 11/07/16 17:31 Lansoprazole (Prevacid) 30 mg DAILY GT 11/06/16 09:00 12/06/16 08:59 11/09/16 09:30 Magnesium Hydroxide (Mom) 30 ml QHS PRN GT Constipation 11/08/16 14:50 12/06/16 20:59 Multivitamins (Multivitamins W/ Minerals 15ml Liquid) 15 ml DAILY GT 11/09/16 09:00 12/09/16 08:59 11/09/16 09:30 Rivaroxaban 15 mg 15 mg BID GT 11/07/16 09:00 11/27/16 18:01 11/09/16 09:31 Rivaroxaban 20 mg 20 mg QPM GT 11/28/16 16:30 12/28/16 16:29 Sodium Phosphate (Fleet's Sodium Phosl Enema) 133 ml Q48H PRN RECTAL Constipation 11/05/16 22:00 12/05/16 21:59 ELE GRANDA Nov 09, 2016 14:37
[2016-11-10] MEDS: Albuterol 90mcg Inhaler 8gm INH SCH ×3 (03:00→11:36)
[2016-11-10 03:48] VITALS: BP 110/73
[2016-11-10] MEDS: NovoLOG Insulin Flexpen SUBQ SCH ×2 (06:00→12:00)
[2016-11-10 08:00] VITALS: BP 117/75
[2016-11-10] MEDS ORDERED: CEPHALEXIN500 MG ORAL (08:02)
--- NOTE | 2016-11-10 08:04 | General Progress Note ---
Assessment/Plan Problem List: (1) Hypernatremia ICD Codes: E87.0 - Hyperosmolality and hypernatremia SNOMED: 14583740 (2) UTI (urinary tract infection) ICD Codes: N39.0 - Urinary tract infection, site not specified SNOMED: 64655611, 737325120 Qualifiers: Qualified Codes: N39.0 - Urinary tract infection, site not specified (3) Tachycardia ICD Codes: R00.0 - Tachycardia, unspecified SNOMED: 6770645, 519242954 (4) Renal insufficiency ICD Codes: N28.9 - Disorder of kidney and ureter, unspecified SNOMED: 085902990, 513024447 (5) Encephalopathy ICD Codes: G93.40 - Encephalopathy, unspecified SNOMED: 26800066, 189910017 Status: stable, progressing Assessment/Plan ivf abx changed to keflex monitor lytes gt feeds xarelto watch for bleeding Subjective ROS Limited/Unobtainable: No Constitutional: Reports: malaise, weakness HEENT: Reports: no symptoms Cardiovascular: Reports: no symptoms Respiratory: Reports: no symptoms Gastrointestinal/Abdominal: Reports: difficulty swallowing Genitourinary: Reports: no symptoms 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: Reports: pre-existing deficit Endocrine: Reports: no symptoms Hematologic/Lymphatic: Reports: no symptoms Allergies: Coded Allergies: CIPROFLOXACIN (Verified Allergy, Unknown, 08/23/15) All Systems: reviewed and negative except above Subjective SNF refused to take pt due to isolation. PATIENT DOES NOT REQUIRE ANY ISOLATION. Objective Last 24 Hour Vital Signs Date Time Temp Pulse Resp B/P Pulse Ox O2 Delivery O2 Flow Rate FiO2 11/10/16 04:11 96 11/10/16 03:48 96.4 95 20 110/73 100 Room Air 11/10/16 03:20 Room Air 11/10/16 03:19 Room Air 11/09/16 23:38 Room Air 11/09/16 23:38 Room Air 11/09/16 23:33 99 11/09/16 23:10 97.9 96 20 112/78 98 Room Air 11/09/16 20:06 96.0 94 20 99/64 97 Room Air 11/09/16 19:40 Room Air 11/09/16 19:40 Room Air 11/09/16 19:40 Room Air 11/09/16 19:40 96 Room Air 11/09/16 19:25 93 11/09/16 16:30 98.6 80 18 123/70 98 Room Air 11/09/16 16:21 94 11/09/16 16:05 Room Air 11/09/16 16:00 Room Air 11/09/16 12:22 Room Air 11/09/16 12:00 90 11/09/16 11:57 98.0 78 18 122/71 97 Room Air 11/09/16 11:00 89 17 97 Room Air 11/09/16 10:11 86 Intake and Output 11/09/16 11/10/16 19:00 07:00 Intake Total 1625 ml 1210 ml Output Total 350 ml 575 ml Balance 1275 ml 635 ml Free Water 450 ml 300 ml IV Total 455 ml 550 ml Tube Feeding 720 ml 360 ml Output Urine Total 350 ml 575 ml # Bowel Movements 3 2 Height (Feet): 6 Height (Inches): 1.00 Weight (Pounds): 220 CALEB LINDSAY Nov 10, 2016 08:04
[2016-11-10] MEDS: Xarelto 15mg tab GT SCH (09:09)
[2016-11-10] MEDS: Bisacodyl EC 5mg tab ORAL SCH (09:10)
[2016-11-10] MEDS: Docusate 100mg/10ml Liq GT SCH (09:11)
[2016-11-10] MEDS: Multivitamins W/Minerals 15 ML UDC GT SCH (09:11)
[2016-11-10 10:23] LABS: BASOPHILS % (AUTO) 1.1 % (0.0-2.0); LYMPHOCYTES % (AUTO) 38.4 % (20.0-45.0); MEAN CORPUSCULAR HEMOGLOBIN 29.6 PG (27.0-31.0); MEAN CORPUSCULAR VOLUME 96 FL (80-99); MEAN PLATELET VOLUME 11.5 FL (6.5-10.1); MONOCYTES % (AUTO) 7.7 % (1.0-10.0); NEUTROPHILS % (AUTO) 48.9 % (45.0-75.0); PLATELET COUNT 152 K/UL (150-450); RED BLOOD COUNT 4.06 M/UL (4.70-6.10); RED CELL DISTRIBUTION WIDTH 13.4 % (11.6-14.8); WHITE BLOOD COUNT 5.9 K/UL (4.8-10.8)
[2016-11-10 10:33] LABS: ALANINE AMINOTRANSFERASE 24 U/L (3-41); ALBUMIN/GLOBULIN RATIO 0.6 (1.0-2.7); ANION GAP 8 (5-15); ASPARTATE AMINO TRANSFERASE 28 U/L (5-40); CARBON DIOXIDE 26 mEQ/L (20-30); CHLORIDE 109 mEQ/L (98-107); CREATININE 0.6 mg/dL (0.7-1.2); GLOMERULAR FILTRATION RATE > 60 mL/min (>60); HEMOLYSIS 2; SODIUM 143 mEQ/L (135-145); TOTAL PROTEIN 7.1 g/dL (6.6-8.7)
--- NOTE | 2016-11-10 11:59 | Infectious Diseases Prog Note ---
Assessment/Plan Assessment/Plan antibiotics : ceftriaxone A 1. proteus UTI 2. leucocytosis improving 3. hypernatremia improving 4. CVA P 1. continue ceftriaxone in hospital 2. po keflex on discharge 2 more days 3. will follow up cultures Subjective ROS Limited/Unobtainable: Yes Allergies: Coded Allergies: CIPROFLOXACIN (Verified Allergy, Unknown, 08/23/15) Objective Vital Signs Last 24 Hour Vital Signs Date Time Temp Pulse Resp B/P Pulse Ox O2 Delivery O2 Flow Rate FiO2 11/10/16 11:38 Room Air 11/10/16 11:36 Room Air 11/10/16 08:00 97.1 89 20 117/75 95 Room Air 11/10/16 07:20 Room Air 11/10/16 07:20 Room Air 11/10/16 07:20 100 Room Air 11/10/16 07:20 92 18 100 Room Air 11/10/16 04:11 96 11/10/16 03:48 96.4 95 20 110/73 100 Room Air 11/10/16 03:20 Room Air 11/10/16 03:19 Room Air 11/09/16 23:38 Room Air 11/09/16 23:38 Room Air 11/09/16 23:33 99 11/09/16 23:10 97.9 96 20 112/78 98 Room Air 11/09/16 20:06 96.0 94 20 99/64 97 Room Air 11/09/16 19:40 Room Air 11/09/16 19:40 Room Air 11/09/16 19:40 Room Air 11/09/16 19:40 96 Room Air 11/09/16 19:25 93 11/09/16 16:30 98.6 80 18 123/70 98 Room Air 11/09/16 16:21 94 11/09/16 16:05 Room Air 11/09/16 16:00 Room Air 11/09/16 12:22 Room Air 11/09/16 12:00 90 Height (Feet): 6 Height (Inches): 1.00 Weight (Pounds): 220 Respiratory/Chest: lungs clear Cardiovascular: normal rate, regular rhythm, no gallop/murmur Abdomen: soft, non tender, other - GT Extremities: no edema Laboratory Tests Test 11/10/16 10:10 White Blood Count 5.9 K/UL (4.8-10.8) Red Blood Count 4.06 M/UL (4.70-6.10) L Hemoglobin 12.0 G/DL (14.2-18.0) L Hematocrit 38.8 % (42.0-52.0) L Mean Corpuscular Volume 96 FL (80-99) Mean Corpuscular Hemoglobin 29.6 PG (27.0-31.0) Mean Corpuscular Hemoglobin Concent 31.0 G/DL (32.0-36.0) L Red Cell Distribution Width 13.4 % (11.6-14.8) Platelet Count 152 K/UL (150-450) Mean Platelet Volume 11.5 FL (6.5-10.1) H Neutrophils (%) (Auto) 48.9 % (45.0-75.0) Lymphocytes (%) (Auto) 38.4 % (20.0-45.0) Monocytes (%) (Auto) 7.7 % (1.0-10.0) Eosinophils (%) (Auto) 4.0 % (0.0-3.0) H Basophils (%) (Auto) 1.1 % (0.0-2.0) Sodium Level 143 mEQ/L (135-145) Potassium Level 4.0 mEQ/L (3.4-4.9) Chloride Level 109 mEQ/L (98-107) H Carbon Dioxide Level 26 mEQ/L (20-30) Anion Gap 8 (5-15) Blood Urea Nitrogen 14 mg/dL (7-23) Creatinine 0.6 mg/dL (0.7-1.2) L Estimat Glomerular Filtration Rate > 60 mL/min (>60) Glucose Level 132 mg/dL (74-106) H Calcium Level 8.0 mg/dL (8.6-10.2) L Total Bilirubin < 0.2 mg/dL (0.0-1.2) Aspartate Amino Transf (AST/SGOT) 28 U/L (5-40) Alanine Aminotransferase (ALT/SGPT) 24 U/L (3-41) Alkaline Phosphatase 47 U/L (40-129) Total Protein 7.1 g/dL (6.6-8.7) Albumin 2.9 g/dL (3.5-5.2) L Globulin 4.2 g/dL Albumin/Globulin Ratio 0.6 (1.0-2.7) L LYNETTE MTZ Nov 10, 2016 11:59
[2016-11-10 12:00] VITALS: BP 115/91
[2016-11-10] MEDS: cefTRIAXone 1 GM in D5W 55 ML IVPB SCH (12:46)
[2016-11-10] MEDS ORDERED: Tubing IV Secondary IV ONE (15:29)
[2016-11-10] MEDS ORDERED: NS 275ml ONE (15:29)
[2016-11-10] MEDS ORDERED: Sterile Water Irrig 1000ml IRRIG ONE (15:29)
--- NOTE | 2016-11-13 13:23 | Discharge Summary ---
Discharge Summary Hospital Course Date of Admission Nov 05, 2016 at 16:21 Date of Discharge Nov 10, 2016 at 15:30 Admitting Diagnosis tachy/fever HPI Tim Conti is a 56 year old male who was admitted on Nov 05, 2016 at 16:21 for Tachy/Fever Hospital Course dc summary #[id number] Discharge Medications New Medications: Rivaroxaban (Xarelto) 15 Mg Tablet 15 MG GT BID for 14 Days, #30 TAB Continued Medications: Acetaminophen (Tylenol) 325 Mg Tab 650 MG ORAL DAILY PRN for For Pain Albuterol Sulfate (Ventolin Hfa) 18 Gm Hfa.aer.ad 1 PUFF INH EVERY 4 HOURS, #18 GM 0 Refills Bisacodyl (Dulcolax) 10 Mg Supp.rect 10 MG RC, SUPP Bisacodyl* (Dulcolax*) 5 Mg Tablet.dr 10 MG ORAL DAILY Docusate Sodium* (Docusate Sodium*) 100 Mg Capsule 100 MG ORAL TWICE A DAY Magnesium Hydroxide* (Milk Of Magnesia*) 400 Mg/5 Ml Oral.susp 30 ML ORAL DAILY, ML Multivitamin With Minerals (Multivitamins With Minerals*) 1 Each Tablet 1 TAB ORAL DAILY, TAB Na Phos,M-B/Na Phos,Di-Ba (Fleet Enema) 133 Ml Enema 133 ML RC, EA Discharge Condition Upon Discharge: stable Discharge Disposition Patient was discharged to SNF/Subacute Facility(03) Discharge Diagnoses: Discharge Instructions Discharge Instructions Special Instructions I have been assigned to complete a D/C Summary on this account. I was not involved in the patient management Ann Marie Lees NP (Vanchtein) Nov 13, 2016 13:23
--- NOTE | 2016-11-14 | Discharge Summary 2 SIG ---
DATE OF ADMISSION: 11/05/2016 DATE OF DISCHARGE: 11/10/2016 The patient is admitted under Dr. Smith. REASON FOR ADMISSION: The patient is a 56-year-old male, with cognitive impairment, history of CVA, chronic encephalopathy, dysphagia, and G-tube, was presented to the emergency department due to the altered mental status. Workup in the emergency room revealed that the patient had a fever of 101.7 degrees and leukocytosis, WBC 15. Urinalysis grossly positive for urinary tract infection. The patient was tachycardic in 140 and tachypneic in 36. Sodium was 170. Lactic acid 1.9 within normal limits. BUN 51 and creatinine 0.1. The patient was admitted for further management. ADMITTING DIAGNOSES: Includes: 1. Acute on chronic encephalopathy. 2. Sepsis. 3. Urinary tract infection. 4. Severe hypernatremia. 5. Dehydration. 6. Tachycardia. HOSPITAL COURSE: The patient was admitted. The patient was started on empiric antibiotics. The patient was on the IV fluids. ID followed. Urine culture revealed Proteus mirabilis. Blood cultures were negative. Antibiotic regimen optimized as per ID. The patient was on generous IV hydration. Renal parameters and electrolytes were closely monitored. Prior to discharge, sodium down to normal 143, BUN down to 14, and creatinine down to 0.6. Leukocytosis resolved. Venous duplex of bilateral lower extremity was done and revealed acute DVT in the left lower extremity superficial femoral vein and popliteal vein. The patient was started on Xarelto. The patient's tachycardia and tachypnea resolved, likely were related to infectious process and dehydration. Supplemental oxygen to keep saturation above 92% was provided as needed. SNF medication were resumed. The patient was stable for discharge. DISCHARGE DIAGNOSES: Includes: 1. Acute on chronic encephalopathy (likely secondary to sepsis and dehydration). 2. Sepsis due to urinary tract infection. 3. Urinary tract infection with Proteus. 4. Severe hypernatremia secondary to dehydration. 5. Dehydration, resolved and after diet, hypernatremia resolved. 6. Tachycardia, resolved. 7. Acute deep venous thrombosis of left lower extremity superficial femoral vein and popliteal vein. DISCHARGE MEDICATIONS: See medication reconciliation list. DISCHARGE INSTRUCTIONS: The patient is discharged to half-way facility. FOLLOWUP: Follow up with medical doctor at the facility. Gabo Smith M.D. I have been assigned to dictate discharge summary on this account and I was not involved in the patient's management. Ann Marie Lees (vanchtein) NAlyssa DR: SEAMUS JOB#: [id number] CC:
[2016-11-28] MEDS ORDERED: Xarelto 10mg tab GT SCH (16:30)
== END 2016-11-10 15:30 | DRG 720 ==
LOC: EDBD 15:47 → EMR 16:09 → 2E 16:21 → EDBEDREQ 19:12
DX: A41.9 Sepsis, unspecified organism (principal); G93.40 Encephalopathy, unspecified; N17.9 Acute kidney failure, unspecified; E87.0 Hyperosmolality and hypernatremia; N39.0 Urinary tract infection, site not specified; E86.0 Dehydration; Z86.73 Personal history of transient ischemic attack (TIA), and cerebral infarction without residual deficits; Z79.01 Long term (current) use of anticoagulants; Z88.1 Allergy status to other antibiotic agents; B96.4 Proteus (mirabilis) (morganii) as the cause of diseases classified elsewhere; I82.412 Acute embolism and thrombosis of left femoral vein; I82.432 Acute embolism and thrombosis of left popliteal vein
CPT/HCPCS: 36415; 71010; 80053; 80202; 81003; 82550; 82553; 82962; 83605; 83880; 84484; 85025; 87040; 87081; 87086; 87181; 93005; 93970; 94640; 94664; 94760; J1815; J2405

== ENCOUNTER 2016-11-12 10:37 | Inpatient (IN) | payer MEDICAID ==
[~2016-11-12] VITALS: Ht 165.1 cm; Wt 90.7 kg
[2016-11-12 10:35] VITALS: BP 132/89
[~2016-11-12 10:37] MED LIST changes: +CEFTRIAXON1 GM/50 ML IV; +CEPHALEXIN500 MG ORAL; +DULCOLAX10 MG RC; +FLEET ENEMA133 M1 RC; +MULTIVITAMINS1 EAC8 ORAL; +VENTOLIN HFA18 GM INH; +XARELTO15 MG GT
[2016-11-12 11:00] VITALS: BP 146/100
[2016-11-12 11:30] VITALS: BP 147/100
[2016-11-12 11:37] LABS: BASOPHILS % (AUTO) 1.1 % (0.0-2.0); EOSINOPHILS % (AUTO) 2.1 % (0.0-3.0); LYMPHOCYTES % (AUTO) 32.5 % (20.0-45.0); MEAN CORPUSCULAR HGB CONC 30.7 G/DL (32.0-36.0); MEAN CORPUSCULAR VOLUME 95 FL (80-99); MEAN PLATELET VOLUME 10.4 FL (6.5-10.1); MONOCYTES % (AUTO) 6.7 % (1.0-10.0); NEUTROPHILS % (AUTO) 57.6 % (45.0-75.0); PLATELET COUNT 135 K/UL (150-450); RED BLOOD COUNT 4.48 M/UL (4.70-6.10); RED CELL DISTRIBUTION WIDTH 13.8 % (11.6-14.8); WHITE BLOOD COUNT 8.5 K/UL (4.8-10.8)
[2016-11-12] MEDS ORDERED: CEPHALEXIN500 MG ORAL (11:42)
[2016-11-12] MEDS ORDERED: PEPCID20 MG GT (11:42)
[2016-11-12 11:47] LABS: INR 0.9 (0.9-1.1); PROTHROMBIN TIME 9.8 SEC (9.30-11.50)
[2016-11-12 11:51] LABS: ALANINE AMINOTRANSFERASE 25 U/L (3-41); ALBUMIN/GLOBULIN RATIO 0.6 (1.0-2.7); ANION GAP 13 (5-15); ASPARTATE AMINO TRANSFERASE 24 U/L (5-40); CALCIUM 8.9 mg/dL (8.6-10.2); CARBON DIOXIDE 22 mEQ/L (20-30); CHLORIDE 107 mEQ/L (98-107); CREATININE 0.5 mg/dL (0.7-1.2); GLOMERULAR FILTRATION RATE > 60 mL/min (>60); HEMOLYSIS 7; POTASSIUM 4.4 mEQ/L (3.4-4.9); SODIUM 142 mEQ/L (135-145)
--- NOTE | 2016-11-12 12:05 | Emergency Room Report ---
History of Present Illness General Chief Complaint: Malfunctioning Gastric Tube Source: EMS Present Illness HPI Patient is a 56-year-old male who presented after having accidentally removed his G-tube. Patient prior history of functional quadriplegia. The patient is noted be able to move all his upper extremities. G-tube was removed approximately 5 AM. The patient presented to the emergency department several hours later. History is limited by patient's mental status Allergies: Coded Allergies: CIPROFLOXACIN (Verified Allergy, Unknown, 08/23/15) Patient History Past Medical History: old chart reviewed Reviewed Nursing Documentation: PMH: Agreed, PSxH: Agreed Nursing Documentation-PMH Hx Cardiac Problems: No Hx Cancer: No Hx Neurological Problems: Yes - HYDROCEPHALUS, ENCEPHALOPATHY Hx Cerebrovascular Accident: Yes Hx Speech Problem: Yes Review of Systems All Other Systems: limited - by mental status Physical Exam Vital Signs Date Time Temp Pulse Resp B/P Pulse Ox O2 Delivery O2 Flow Rate FiO2 11/12/16 10:27 98.1 92 16 128/92 98 Room Air General Appearance: obese, Chronically Ill ENT: normal pharynx Respiratory: lungs clear, normal breath sounds Cardiovascular #1: regular rate, rhythm Gastrointestinal: soft, other - gtube stoma present, overweight Musculoskeletal: digits/nails normal, other - motor weakness Neurologic: normal inspection, alert, motor weakness, other - oriented X1 Skin: normal inspection, no rash Medical Decision Making Diagnostic Impression: Primary Impression: Encounter for PEG (percutaneous endoscopic gastrostomy) ER Course Patient presented for G-tube replacement. Differential diagnosis included was not limited to patent stoma, G-tube tract closure, cellulitis among others.Because of complexity of patient's case laboratory testing and imaging studies were ordered. I attempted to replace the G-tube after sterile prep however can not advance the G-tube past [address] Faust was contacted for consult. Dr. Smith was contacted for inpatient management Labs Test 11/12/16 11:20 White Blood Count 8.5 K/UL (4.8-10.8) Red Blood Count 4.48 M/UL (4.70-6.10) Hemoglobin 13.0 G/DL (14.2-18.0) Hematocrit 42.4 % (42.0-52.0) Mean Corpuscular Volume 95 FL (80-99) Mean Corpuscular Hemoglobin 29.0 PG (27.0-31.0) Mean Corpuscular Hemoglobin Concent 30.7 G/DL (32.0-36.0) Red Cell Distribution Width 13.8 % (11.6-14.8) Platelet Count 135 K/UL (150-450) Mean Platelet Volume 10.4 FL (6.5-10.1) Neutrophils (%) (Auto) 57.6 % (45.0-75.0) Lymphocytes (%) (Auto) 32.5 % (20.0-45.0) Monocytes (%) (Auto) 6.7 % (1.0-10.0) Eosinophils (%) (Auto) 2.1 % (0.0-3.0) Basophils (%) (Auto) 1.1 % (0.0-2.0) Prothrombin Time 9.8 SEC (9.30-11.50) Prothromb Time International Ratio 0.9 (0.9-1.1) Activated Partial Thromboplast Time 21 SEC (23-33) Sodium Level 142 mEQ/L (135-145) Potassium Level 4.4 mEQ/L (3.4-4.9) Chloride Level 107 mEQ/L (98-107) Carbon Dioxide Level 22 mEQ/L (20-30) Anion Gap 13 (5-15) Blood Urea Nitrogen 13 mg/dL (7-23) Creatinine 0.5 mg/dL (0.7-1.2) Estimat Glomerular Filtration Rate > 60 mL/min (>60) Glucose Level 134 mg/dL (74-106) Calcium Level 8.9 mg/dL (8.6-10.2) Total Bilirubin 0.3 mg/dL (0.0-1.2) Aspartate Amino Transf (AST/SGOT) 24 U/L (5-40) Alanine Aminotransferase (ALT/SGPT) 25 U/L (3-41) Alkaline Phosphatase 63 U/L (40-129) Total Protein 8.0 g/dL (6.6-8.7) Albumin 3.2 g/dL (3.5-5.2) Globulin 4.8 g/dL Albumin/Globulin Ratio 0.6 (1.0-2.7) Last Vital Signs Date Time Temp Pulse Resp B/P Pulse Ox O2 Delivery O2 Flow Rate FiO2 11/12/16 11:30 101 23 147/100 99 Room Air 86/17 10:35 98.2 Status: unchanged Disposition: ADMITTED INPATIENT Condition: Serious Referrals: NON PHYSICIAN (PCP) Froy Garcia Nov 12, 2016 12:05
[2016-11-12 13:48] VITALS: BP 153/88
--- NOTE | 2016-11-12 15:45 | Consultation ---
DATE OF CONSULTATION: 11/12/2016 GASTROENTEROLOGY CONSULTATION CHIEF COMPLAINT: Malfunction of G-tube. HISTORY OF PRESENT ILLNESS: Most of history per chart. This is an unfortunate male with multiple medical problems, history of CVA, history of dysphagia, and history of bilateral amputations, who presented to the hospital, because the G-tube was not functioning and actually was out. The ER doctor tried to put the G-tube, but the site seems to be closed and he could not get any. I also went to the ER myself, tried to place a 16-Aust[place] G-tube to through the old hole, but the hole was close from inside, so we could not pass the tube. PAST MEDICAL HISTORY: History of CVA, dysphagia with G-tube, and history of suprapubic catheter placement. PAST SURGICAL HISTORY: History of amputations. ALLERGIES: To Cipro. MEDICATIONS: Please see medication reconciliation list. SOCIAL HISTORY: Currently lives in correction. No recent history of tobacco, alcohol, or drug abuse. FAMILY HISTORY: Noncontributory. REVIEW OF SYSTEMS: Unable to obtain. PHYSICAL EXAMINATION: VITAL SIGNS: Temperature is 98.2 degrees, pulse is 91, respiratory rate 18, and blood pressure 146/100. HEENT: Atraumatic. Sclerae anicteric. NECK: Supple. No lymphadenopathy. CARDIOVASCULAR: Regular rhythm. Plus S1 and S2. LUNGS: Decreased breath sounds bilaterally diffusely. ABDOMEN: Soft and nontender. No rebound. No guarding. No peritoneal sign. The G-tube site, which is closed and is oozing with blood. There is a suprapubic catheter in place. EXTREMITIES: The patient has bilateral amputations. LABORATORY DATA: White count is 5.9, hemoglobin 12, hematocrit 38, and platelet count is 152,000. ASSESSMENT AND PLAN: This is a 56-year-old male with the G-tube site closure, need a new G-tube. PLAN: Plan to make the patient NPO after midnight tonight. Start him on IV fluids and plan to do a PEG for tomorrow morning. Deep Faust M.D. DR: KAT JOB#: [id number] CC:
[2016-11-12] MEDS: D5NS 1,000 ML IV SCH (17:24)
[2016-11-12] MEDS: NovoLOG Insulin Flexpen SUBQ SCH ×2 (18:00→23:35)
[2016-11-12 20:00] VITALS: BP 120/98
[2016-11-12] MEDS: ceFAZolin sod 1 GM in D5W 55 ML IVPB SCH (21:28)
[2016-11-13] VITALS (11 sets, daily range): BP systolic 112–158; BP diastolic 88–118
[2016-11-13] MEDS: D5NS 1,000 ML IV SCH ×3 (01:55→21:52)
[2016-11-13] MEDS: ceFAZolin sod 1 GM in D5W 55 ML IVPB SCH ×3 (05:18→21:01)
[2016-11-13] MEDS: NovoLOG Insulin Flexpen SUBQ SCH ×4 (05:19→23:24)
[2016-11-13 07:05] LABS: BASOPHILS % (AUTO) 0.7 % (0.0-2.0); EOSINOPHILS % (AUTO) 2.1 % (0.0-3.0); LYMPHOCYTES % (AUTO) 37.6 % (20.0-45.0); MEAN CORPUSCULAR HEMOGLOBIN 31.5 PG (27.0-31.0); MEAN CORPUSCULAR HGB CONC 33.3 G/DL (32.0-36.0); MEAN CORPUSCULAR VOLUME 94 FL (80-99); MEAN PLATELET VOLUME 10.3 FL (6.5-10.1); NEUTROPHILS % (AUTO) 51.7 % (45.0-75.0); PLATELET COUNT 189 K/UL (150-450); RED BLOOD COUNT 4.32 M/UL (4.70-6.10); RED CELL DISTRIBUTION WIDTH 13.6 % (11.6-14.8); WHITE BLOOD COUNT 7.6 K/UL (4.8-10.8)
[2016-11-13 07:11] LABS: CALCIUM 8.9 mg/dL (8.6-10.2); CARBON DIOXIDE 23 mEQ/L (20-30); CREATININE 0.5 mg/dL (0.7-1.2); GLOMERULAR FILTRATION RATE > 60 mL/min (>60); HEMOLYSIS 1
[2016-11-13 07:41] LABS: PROTHROMBIN TIME 10.1 SEC (9.30-11.50)
--- NOTE | 2016-11-13 08:00 | History and Physical Report ---
DATE OF ADMISSION: 11/12/2016 CHIEF COMPLAINT: Dislodged G-tube. HISTORY OF PRESENT ILLNESS: The patient is an unfortunate 56-year-old male. He has a history of encephalopathy, stroke, and dysphagia, status post G-tube. He was recently hospitalized with dehydration and sepsis. He was discharged to a residential facility where apparently he pulled out his G-tube. It could not be replaced in the emergency room. He is therefore admitted for further evaluation and care. PAST MEDICAL HISTORY: As above. PAST SURGICAL HISTORY: G-tube. MEDICATIONS: Current medications reconciled and reviewed. ALLERGIES: Cipro. SOCIAL HISTORY: There is no known history of tobacco, ethanol, or drugs. FAMILY HISTORY: Noncontributory. REVIEW OF SYSTEMS: Review of systems from the patient is unobtainable, as he is nonverbal. PHYSICAL EXAMINATION: GENERAL: The patient is a chronically ill-appearing male, in no apparent distress. VITAL SIGNS: Temperature 98.2 degrees, pulse 101, respirations 23, and blood pressure 147/100. HEART: Regular rate and rhythm. LUNGS: Clear. ABDOMEN: Soft. EXTREMITIES: Without clubbing or cyanosis. NEUROLOGIC: The patient is confused at baseline. LABORATORY DATA: White count is 8, hemoglobin 13, and hematocrit 42. Sodium 143, potassium 4.4, and creatinine of 0.5. ASSESSMENT: This is an elderly male admitted with 1. Dislodged gastrostomy tube gastrostomy tube. 2. Encephalopathy. PLAN: 1. IV dehydration. 2. problem with DVT, hold Xarelto. 3. Endoscopy with G-tube replacement. 4. Discharge planning once G-tube will be replaced and the patient is tolerating feeds. Gabo Smith M.D. DR: SONA JOB#: [id number] CC:
--- NOTE | 2016-11-13 08:01 | General Progress Note ---
Assessment/Plan Problem List: (1) Encephalopathy chronic ICD Codes: G93.49 - Other encephalopathy SNOMED: 77345940 (2) Encounter for PEG (percutaneous endoscopic gastrostomy) ICD Codes: Z43.1 - Encounter for attention to gastrostomy SNOMED: 386968785, 058001026 Status: stable Assessment/Plan GT placement by gi ivf dc after gt placement Subjective ROS Limited/Unobtainable: Yes Constitutional: Reports: weakness HEENT: Reports: no symptoms Cardiovascular: Reports: no symptoms Respiratory: Reports: no symptoms Gastrointestinal/Abdominal: Reports: no symptoms Genitourinary: Reports: no symptoms 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: Reports: pre-existing deficit Endocrine: Reports: no symptoms Hematologic/Lymphatic: Reports: no symptoms Allergies: Coded Allergies: CIPROFLOXACIN (Verified Allergy, Unknown, 08/23/15) All Systems: reviewed and negative except above Subjective confused. on ivf. bp better controlled. Objective Last 24 Hour Vital Signs Date Time Temp Pulse Resp B/P Pulse Ox O2 Delivery O2 Flow Rate FiO2 11/13/16 04:00 98.6 80 18 132/96 96 Room Air 11/13/16 00:00 97.6 87 18 137/96 97 Room Air 11/12/16 20:00 97.7 95 18 120/98 98 Room Air 11/12/16 13:48 87 18 153/88 99 Room Air 11/12/16 12:38 98.2 101 23 147/100 99 Room Air 11/12/16 11:30 101 23 147/100 99 Room Air 11/12/16 11:00 91 18 146/100 99 Room Air 11/12/16 10:35 98.2 89 15 132/89 99 Room Air 11/12/16 10:27 98.1 92 16 128/92 98 Room Air Intake and Output 11/12/16 11/13/16 19:00 07:00 Intake Total 100 ml 1110 ml Output Total 600 ml Balance 100 ml 510 ml Intake IV Total 100 ml 1110 ml Output Urine Total 600 ml # Voids 1 Laboratory Tests 11/12/16 11:20: White Blood Count 8.5, Red Blood Count 4.48L, Hemoglobin 13.0L, Hematocrit 42.4 , Mean Corpuscular Volume 95, Mean Corpuscular Hemoglobin 29.0, Mean Corpuscular Hemoglobin Concent 30.7L, Red Cell Distribution Width 13.8, Platelet Count 135L, Mean Platelet Volume 10.4H, Neutrophils (%) (Auto) 57.6, Lymphocytes (%) (Auto) 32.5, Monocytes (%) (Auto) 6.7, Eosinophils (%) (Auto) 2.1, Basophils (%) (Auto) 1.1, Prothrombin Time 9.8, Prothromb Time International Ratio 0.9, Activated Partial Thromboplast Time 21L, Sodium Level 142, Potassium Level 4.4, Chloride Level 107, Carbon Dioxide Level 22, Anion Gap 13, Blood Urea Nitrogen 13, Creatinine 0.5L, Estimat Glomerular Filtration Rate > 60, Glucose Level 134H, Calcium Level 8.9, Total Bilirubin 0.3, Aspartate Amino Transf (AST/SGOT) 24, Alanine Aminotransferase (ALT/SGPT) 25, Alkaline Phosphatase 63, Total Protein 8.0, Albumin 3.2L, Globulin 4.8, Albumin/ Globulin Ratio 0.6L 11/13/16 05:30: White Blood Count 7.6, Red Blood Count 4.32L, Hemoglobin 13.6L, Hematocrit 40.8L , Mean Corpuscular Volume 94, Mean Corpuscular Hemoglobin 31.5H, Mean Corpuscular Hemoglobin Concent 33.3, Red Cell Distribution Width 13.6, Platelet Count 189, Mean Platelet Volume 10.3H, Neutrophils (%) (Auto) 51.7, Lymphocytes (%) (Auto) 37.6, Monocytes (%) (Auto) 8.0, Eosinophils (%) (Auto) 2.1, Basophils (%) (Auto) 0.7, Prothrombin Time 10.1, Prothromb Time International Ratio 1.0, Sodium Level [Pending], Potassium Level [Pending], Chloride Level [ Pending], Carbon Dioxide Level 23, Blood Urea Nitrogen 10, Creatinine 0.5L, Estimat Glomerular Filtration Rate > 60, Glucose Level 127H, Calcium Level 8.9 Height (Feet): 5 Height (Inches): 5.00 Weight (Pounds): 200 General Appearance: WD/WN, confused Neck: supple Cardiovascular: regular rhythm Respiratory/Chest: lungs clear Abdomen: normal bowel sounds, non tender, soft, no organomegaly Edema: no edema noted Arm (L), no edema noted Arm (R), no edema noted Leg (L), no edema noted Leg (R), no edema noted Pedal (L), no edema noted Pedal (R), no edema noted Generalized Neurologic: disoriented CALEB LINDSAY Nov 13, 2016 08:01
[2016-11-13 09:12] LABS: ANION GAP 13 (5-15); CHLORIDE 106 mEQ/L (98-107); POTASSIUM 4.1 mEQ/L (3.4-4.9); SODIUM 142 mEQ/L (135-145)
--- NOTE | 2016-11-13 10:37 | Pre-Procedure Note/Attestation ---
Pre-Procedure Note/Attestation Complete Prior to Procedure Planned Procedure: not applicable Procedure Narrative: egd/peg Indications for Procedure Pre-Operative Diagnosis: dysphagia Attestation I attest that I discussed the nature of the procedure; its benefits; risks and complications; and alternatives (and the risks and benefits of such alternatives ), prior to the procedure, with the patient (or the patient's legal sales representative [employer]). I attest that, if there was a reasonable possibility of needing a blood transfusion, the patient (or the patient's legal sales representative [employer]) was given the [facility] standardized written summary, pursuant to the [place] Blood Safety Act ([place] Health and Safety Code # 1645, as amended). I attest that I re-evaluated the patient just prior to the surgery and that there has been no change in the patient's H&P, except as documented below: SCOT HUFF Nov 13, 2016 10:37
[2016-11-13] MEDS ORDERED: NS 550ML IV ONE (10:40)
--- NOTE | 2016-11-13 10:58 | Endoscopy Procedure Note ---
Endoscopy Procedure Note Indication for Procedure: dysphagia Procedures Performed: EGD, PEG Operative Findings/Diagnosis: same Specimen: none Pt Tolerated Procedure Well: Yes Estimated Blood Loss: none Anesthesiologist: lena Anesthesia: MAC Implant(s) used?: No 50 yrs or older w/o bx or poly: Not Applicable 10yrs. F/U not recommended: Not Applicable SCOT HUFF Nov 13, 2016 10:58
[2016-11-13] MEDS ORDERED: Lidocaine 1% MPF 10mg/ml 5ml ONE (11:00)
[2016-11-13] MEDS ORDERED: Propofol 10mg/ml 20ml IV ONE (11:00)
--- NOTE | 2016-11-13 11:17 | Anethesia Preoperative Eval ---
Anesthesia Pre-op PMH/ROS General Mallampati Score Class I : Soft palate, uvula, fauces, pillars visible Class II: Soft palate, uvula, fauces visible Class III: Soft palate, base of uvula visible Class IV: Only hard plate visible Allergies: Coded Allergies: CIPROFLOXACIN (Verified Allergy, Unknown, 08/23/15) Anesthesia Pre-op Phys. Exam Physician Exam Labs Test 11/12/16 11:20 11/13/16 05:30 White Blood Count 8.5 K/UL (4.8-10.8) 7.6 K/UL (4.8-10.8) Red Blood Count 4.48 M/UL (4.70-6.10) 4.32 M/UL (4.70-6.10) Hemoglobin 13.0 G/DL (14.2-18.0) 13.6 G/DL (14.2-18.0) Hematocrit 42.4 % (42.0-52.0) 40.8 % (42.0-52.0) Mean Corpuscular Volume 95 FL (80-99) 94 FL (80-99) Mean Corpuscular Hemoglobin 29.0 PG (27.0-31.0) 31.5 PG (27.0-31.0) Mean Corpuscular Hemoglobin Concent 30.7 G/DL (32.0-36.0) 33.3 G/DL (32.0-36.0) Red Cell Distribution Width 13.8 % (11.6-14.8) 13.6 % (11.6-14.8) Platelet Count 135 K/UL (150-450) 189 K/UL (150-450) Mean Platelet Volume 10.4 FL (6.5-10.1) 10.3 FL (6.5-10.1) Neutrophils (%) (Auto) 57.6 % (45.0-75.0) 51.7 % (45.0-75.0) Lymphocytes (%) (Auto) 32.5 % (20.0-45.0) 37.6 % (20.0-45.0) Monocytes (%) (Auto) 6.7 % (1.0-10.0) 8.0 % (1.0-10.0) Eosinophils (%) (Auto) 2.1 % (0.0-3.0) 2.1 % (0.0-3.0) Basophils (%) (Auto) 1.1 % (0.0-2.0) 0.7 % (0.0-2.0) Prothrombin Time 9.8 SEC (9.30-11.50) 10.1 SEC (9.30-11.50) Prothromb Time International Ratio 0.9 (0.9-1.1) 1.0 (0.9-1.1) Activated Partial Thromboplast Time 21 SEC (23-33) Sodium Level 142 mEQ/L (135-145) 142 mEQ/L (135-145) Potassium Level 4.4 mEQ/L (3.4-4.9) 4.1 mEQ/L (3.4-4.9) Chloride Level 107 mEQ/L (98-107) 106 mEQ/L (98-107) Carbon Dioxide Level 22 mEQ/L (20-30) 23 mEQ/L (20-30) Anion Gap 13 (5-15) 13 (5-15) Blood Urea Nitrogen 13 mg/dL (7-23) 10 mg/dL (7-23) Creatinine 0.5 mg/dL (0.7-1.2) 0.5 mg/dL (0.7-1.2) Estimat Glomerular Filtration Rate > 60 mL/min (>60) > 60 mL/min (>60) Glucose Level 134 mg/dL (74-106) 127 mg/dL (74-106) Calcium Level 8.9 mg/dL (8.6-10.2) 8.9 mg/dL (8.6-10.2) Total Bilirubin 0.3 mg/dL (0.0-1.2) Aspartate Amino Transf (AST/SGOT) 24 U/L (5-40) Alanine Aminotransferase (ALT/SGPT) 25 U/L (3-41) Alkaline Phosphatase 63 U/L (40-129) Total Protein 8.0 g/dL (6.6-8.7) Albumin 3.2 g/dL (3.5-5.2) Globulin 4.8 g/dL Albumin/Globulin Ratio 0.6 (1.0-2.7) Last Vital Signs Date Time Temp Pulse Resp B/P Pulse Ox O2 Delivery O2 Flow Rate FiO2 8/7/17 08:55 97.3 88 19 140/104 98 Room Air Constitutional: NAD Neurologic: other Cardiovascular: RRR Respiratory: CTA Gastrointestinal: S/NT/ND Airway Exam Mallampati Score: Class II MO: limited Neck: supple TMD: 2fb ROM: limited Teeth: missing, broken Anesthesia Pre-op A/P Labs Hematology Test 11/12/16 11:20 11/13/16 05:30 White Blood Count 8.5 K/UL (4.8-10.8) 7.6 K/UL (4.8-10.8) Red Blood Count 4.48 M/UL (4.70-6.10) L 4.32 M/UL (4.70-6.10) L Hemoglobin 13.0 G/DL (14.2-18.0) L 13.6 G/DL (14.2-18.0) L Hematocrit 42.4 % (42.0-52.0) 40.8 % (42.0-52.0) L Mean Corpuscular Volume 95 FL (80-99) 94 FL (80-99) Mean Corpuscular Hemoglobin 29.0 PG (27.0-31.0) 31.5 PG (27.0-31.0) H Mean Corpuscular Hemoglobin Concent 30.7 G/DL (32.0-36.0) L 33.3 G/DL (32.0-36.0) Red Cell Distribution Width 13.8 % (11.6-14.8) 13.6 % (11.6-14.8) Platelet Count 135 K/UL (150-450) L 189 K/UL (150-450) Mean Platelet Volume 10.4 FL (6.5-10.1) H 10.3 FL (6.5-10.1) H Neutrophils (%) (Auto) 57.6 % (45.0-75.0) 51.7 % (45.0-75.0) Lymphocytes (%) (Auto) 32.5 % (20.0-45.0) 37.6 % (20.0-45.0) Monocytes (%) (Auto) 6.7 % (1.0-10.0) 8.0 % (1.0-10.0) Eosinophils (%) (Auto) 2.1 % (0.0-3.0) 2.1 % (0.0-3.0) Basophils (%) (Auto) 1.1 % (0.0-2.0) 0.7 % (0.0-2.0) Coagulation Test 11/12/16 11:20 11/13/16 05:30 Prothrombin Time 9.8 SEC (9.30-11.50) 10.1 SEC (9.30-11.50) Prothromb Time International Ratio 0.9 (0.9-1.1) 1.0 (0.9-1.1) Activated Partial Thromboplast Time 21 SEC (23-33) L Chemistry Test 11/12/16 11:20 11/13/16 05:30 Sodium Level 142 mEQ/L (135-145) 142 mEQ/L (135-145) Potassium Level 4.4 mEQ/L (3.4-4.9) 4.1 mEQ/L (3.4-4.9) Chloride Level 107 mEQ/L (98-107) 106 mEQ/L (98-107) Carbon Dioxide Level 22 mEQ/L (20-30) 23 mEQ/L (20-30) Anion Gap 13 (5-15) 13 (5-15) Blood Urea Nitrogen 13 mg/dL (7-23) 10 mg/dL (7-23) Creatinine 0.5 mg/dL (0.7-1.2) L 0.5 mg/dL (0.7-1.2) L Estimat Glomerular Filtration Rate > 60 mL/min (>60) > 60 mL/min (>60) Glucose Level 134 mg/dL (74-106) H 127 mg/dL (74-106) H Calcium Level 8.9 mg/dL (8.6-10.2) 8.9 mg/dL (8.6-10.2) Total Bilirubin 0.3 mg/dL (0.0-1.2) Aspartate Amino Transf (AST/SGOT) 24 U/L (5-40) Alanine Aminotransferase (ALT/SGPT) 25 U/L (3-41) Alkaline Phosphatase 63 U/L (40-129) Total Protein 8.0 g/dL (6.6-8.7) Albumin 3.2 g/dL (3.5-5.2) L Globulin 4.8 g/dL Albumin/Globulin Ratio 0.6 (1.0-2.7) L Risk Assessment & Plan Assessment: asa4 Plan: mac Status Change Before Surgery: No Pre-Antibiotics Drug: HUNTER Henderson Nov 13, 2016 11:17
[2016-11-13] MEDS ORDERED: Atropine Inj 1mg/10ml Syr IV PRN ×2 (11:30→11:45)
[2016-11-13] MEDS ORDERED: Midazolam 2mg/2ml Inj IVP PRN (11:30)
[2016-11-13] MEDS ORDERED: DiphenhydrAMINE 50mg/ml Inj IVP PRN (11:30)
[2016-11-13] MEDS ORDERED: Hydromorphone 0.5mg/0.5ml inj IVP PRN (11:30)
--- NOTE | 2016-11-13 11:37 | Immediate Post-Op Evaluation ---
Immediate Post-Op Evalulation Immediate Post-Op Evalulation Procedure: peg Date of Evaluation: Nov 13, 2016 Time of Evaluation: 11:37 IV Fluids: 0.9ns Blood Products: none Estimated Blood Loss: negligible Blood Pressure Systolic: 158 Blood Pressure Diastolic: 116 Pulse Rate: 88 Respiratory Rate: 18 O2 Sat by Pulse Oximetry: 99 Temperature (Fahrenheit): 97.0 Pain Score (1-10): 0 Nausea: No Vomiting: No Complications none Patient Status: awake, reacts, patent Hydration Status: adequate Drug: HUNTER Henderson Nov 13, 2016 11:37
--- NOTE | 2016-11-13 11:40 | 48 Hour Post Anesthesia Eval ---
Post Anesthesia Evaluation Procedure: peg Date of Evaluation: Nov 13, 2016 Time of Evaluation: 11:39 Blood Pressure Systolic: 156 0: 100 Pulse Rate: 88 Respiratory Rate: 18 Temperature (Fahrenheit): 97.0 O2 Sat by Pulse Oximetry: 100 Airway: patent Nausea: No Vomiting: No Pain Intensity: 0 Hydration Status: adequate Cardiopulmonary Status: stable Mental Status/LOC: patient returned to baseline Post-Anesthesia Complications: none Follow-up care needed: N/A HUNTER DAVIS Nov 13, 2016 11:40
--- NOTE | 2016-11-13 15:45 | Procedure Note ---
DATE OF PROCEDURE: 11/13/2016 SURGEON: Deep Faust M.D. PROCEDURE: Upper endoscopy with biopsy and PEG placement. ANESTHESIOLOGIST: Claudia Rowland M.D. INSTRUMENT: Olympus adult flexible upper endoscope. INDICATION: Dysphagia. REASON FOR PROCEDURE: The procedure, risks, benefits, and possible consequences, including hemorrhage, aspiration, perforation and infection, and alternative treatments, were explained to the patient/legal guardian by Dr. Deep Faust and the patient/legal guardian understood and accepted these risks. PROCEDURE: After informed consent was obtained and the patient was adequately sedated, Olympus upper endoscope was advanced from the mouth into the second portion of the duodenum and retroflexion was performed of the stomach. The old G-tube site was completely closed. There was some inflammatory looking polyp in that area, which was biopsied. Then, under endoscopic guidance and under sterile condition, a 20-Cambodian pull type of G-tube was successfully placed in epigastric area. The distance from the tip of the tube to skin was roughly about 5 cm in size. The patient tolerated the procedure well without any complications. SUMMARY OF FINDINGS: 1. Gastric polyp, status post biopsy. 2. Status post successful percutaneous endoscopic gastrostomy placement. RECOMMENDATIONS: 1. Abdominal binder. 2. Elevate the head of the bed at all times. 3. G-tube flush. 4. G-tube care. 5. Start tube feeding later today. 6. The patient is to received a dose of antibiotic just 5 o'clock in the morning. I want to thank, Dr. Smith, for this kind referral. Deep Faust M.D. DR: KAT JOB#: [id number] CC: Gabo Smith M.D.
--- NOTE | 2016-11-14 00:22 | Wound Care Consultation ---
Wound Assessment Wound Assessment #1: Wound Number: #1 Wound Present on Admission: Yes New Wound: No Status Change of Wound: No Wound Location Body Site Modif: right Wound Location Body Site: hand Wound Type: blister - scattered Leroy Test: Does not Leroy Wound Thickness: Partial Thickness Wound Drainage Amount: None Wound Drainage Odor: None/Absent Tissue Surrounding Wound: Erythemic Wound Assessment #2: Wound Number: #2 Wound Present on Admission: Yes New Wound: No Status Change of Wound: No Wound Location Body Site: perineal area Wound Type: erosion - with full thickness skin loss Leroy Test: Does not Leroy Wound Thickness: Full Thickness Wound Length: 1.0 Wound Width: 2.0 Wound Depth: 0.2 Percent of Wound [place]/Red: 50 Percent of Wound Bed Yellow/Wh: 50 Wound Drainage Description: Serosanguineous Wound Drainage Amount: Scant Wound Drainage Odor: None/Absent Tissue Surrounding Wound: Erythemic Wound General Appearance: Reddened, Draining Wound Assessment #3: Wound Number: #3 Wound Present on Admission: Yes New Wound: No Status Change of Wound: No Wound Location Body Site Modif: right Wound Location Body Site: buttocks Wound Type: pressure ulcer Leroy Test: Does not Leroy Pressure Ulcer Stage: deep tissue injury Wound Thickness: Full Thickness Wound Length: 2.5 Wound Width: 2.0 Wound Depth: utd Percent of Wound Purple/Maroon: 100 Wound Drainage Amount: None Wound Drainage Odor: None/Absent Tissue Surrounding Wound: Erythemic Wound General Appearance: Reddened - tan Wound Assessment #4: Wound Number: #4 Wound Present on Admission: Yes New Wound: No Status Change of Wound: No Wound Location Body Site Modif: left Wound Location Body Site: buttocks Wound Type: pressure ulcer Leroy Test: Does not Leroy Pressure Ulcer Stage: deep tissue injury Wound Thickness: Full Thickness Wound Length: 1.5 Wound Width: 3.5 Wound Depth: utd Percent of Wound Purple/Maroon: 100 Wound Drainage Amount: None Wound Drainage Odor: None/Absent Tissue Surrounding Wound: Erythemic Wound General Appearance: Reddened - maroon Wound Assessment #5: Wound Number: #5 Wound Present on Admission: Yes New Wound: No Status Change of Wound: No Wound Location Body Site Modif: mid Wound Location Body Site: other - sacrococcygeal Wound Type: pressure ulcer Leroy Test: Does not Leroy Pressure Ulcer Stage: deep tissue injury - scattered Wound Thickness: Full Thickness Wound Length: 4.5 Wound Width: 5.5 Wound Depth: utd Percent of Wound Purple/Maroon: 100 Wound Drainage Amount: None Wound Drainage Odor: None/Absent Tissue Surrounding Wound: Erythemic Wound General Appearance: Reddened - tan Wound Comment #1 Right hand with scattered fluid filled blister #2 Perineal (Tip of penis) erosion with full thickness skin loss #3 Right buttock DTI pressure ulcer #4 Left buttock DTI pressure ulcer #5 Sacrococcygeal DTI pressure ulcer Recommendation -Local wound care per protocol for intact blister and DTI -Perineal area (Tip of penis) erosion with full thickness skin loss, Cleanse with saline pat dry apply Triad cream BID and leave area open to air -Low air loss mattress -Keep clean and dry -Optimize nutrition -Turn and reposition -Offload both heels -Heel protector on both heels -Assess and f/u accordingly for any changes MARIS MEJIA RN Nov 14, 2016 00:22
[2016-11-14] MEDS: ceFAZolin sod 1 GM in D5W 55 ML IVPB SCH ×2 (05:00→14:10)
[2016-11-14] MEDS: NovoLOG Insulin Flexpen SUBQ SCH ×2 (05:56→11:54)
[2016-11-14 06:55] LABS: BASOPHILS % (AUTO) 1.1 % (0.0-2.0); EOSINOPHILS % (AUTO) 1.5 % (0.0-3.0); LYMPHOCYTES % (AUTO) 25.9 % (20.0-45.0); MEAN CORPUSCULAR HEMOGLOBIN 31.1 PG (27.0-31.0); MEAN CORPUSCULAR HGB CONC 32.8 G/DL (32.0-36.0); MEAN CORPUSCULAR VOLUME 95 FL (80-99); MEAN PLATELET VOLUME 10.1 FL (6.5-10.1); NEUTROPHILS % (AUTO) 65.4 % (45.0-75.0); PLATELET COUNT 221 K/UL (150-450); RED BLOOD COUNT 4.28 M/UL (4.70-6.10); RED CELL DISTRIBUTION WIDTH 13.5 % (11.6-14.8); WHITE BLOOD COUNT 10.8 K/UL (4.8-10.8)
[2016-11-14 07:26] LABS: ANION GAP 12 (5-15); CALCIUM 8.8 mg/dL (8.6-10.2); CARBON DIOXIDE 25 mEQ/L (20-30); CHLORIDE 108 mEQ/L (98-107); CREATININE 0.6 mg/dL (0.7-1.2); GLOMERULAR FILTRATION RATE > 60 mL/min (>60); HEMOLYSIS 3; SODIUM 145 mEQ/L (135-145)
[2016-11-14] MEDS: D5NS 1,000 ML IV SCH (08:09)
[2016-11-14 08:10] VITALS: BP 112/74
[2016-11-14 12:00] VITALS: BP 116/76
[2016-11-14] MEDS ORDERED: D5NS 1000ml IV ONE (15:15)
[2016-11-14] MEDS ORDERED: Tubing IV Secondary IV ONE (15:15)
--- NOTE | 2016-11-14 15:51 | GI Progress Note ---
Assessment/Plan Problems: (1) Encephalopathy chronic ICD Codes: G93.49 - Other encephalopathy SNOMED: [id number] (2) gtube malfunction Status: doing well, stable, progressing Status Narrative Discussed with Dr. Faust. Assessment/Plan s/p PEG SUMMARY OF FINDINGS: 1. Gastric polyp, status post biopsy. 2. Status post successful percutaneous endoscopic gastrostomy placement. RECOMMENDATIONS: 1. Abdominal binder. 2. Elevate the head of the bed at all times. 3. G-tube flush. 4. G-tube care. 5. GTF's, tolerating Subjective Subjective limited Objective Last 24 Hour Vital Signs Date Time Temp Pulse Resp B/P Pulse Ox O2 Delivery O2 Flow Rate FiO2 11/14/16 12:00 97.6 92 18 116/76 94 Room Air 11/14/16 08:10 96.3 107 18 112/74 92 Room Air 11/13/16 23:47 98.1 103 18 123/90 98 Room Air 11/13/16 20:00 97.7 94 18 146/88 99 Room Air 11/13/16 16:25 97.5 94 19 112/88 99 Nasal Cannula 2.0 Intake and Output 11/13/16 11/14/16 19:00 07:00 Intake Total 500 ml 900 ml Output Total 450 ml 300 ml Balance 50 ml 600 ml Intake IV Total 500 ml 900 ml Output Urine Total 450 ml 300 ml # Bowel Movements 2 2 Laboratory Tests Test 11/14/16 06:05 White Blood Count 10.8 K/UL (4.8-10.8) Red Blood Count 4.28 M/UL (4.70-6.10) L Hemoglobin 13.3 G/DL (14.2-18.0) L Hematocrit 40.6 % (42.0-52.0) L Mean Corpuscular Volume 95 FL (80-99) Mean Corpuscular Hemoglobin 31.1 PG (27.0-31.0) H Mean Corpuscular Hemoglobin Concent 32.8 G/DL (32.0-36.0) Red Cell Distribution Width 13.5 % (11.6-14.8) Platelet Count 221 K/UL (150-450) Mean Platelet Volume 10.1 FL (6.5-10.1) Neutrophils (%) (Auto) 65.4 % (45.0-75.0) Lymphocytes (%) (Auto) 25.9 % (20.0-45.0) Monocytes (%) (Auto) 6.0 % (1.0-10.0) Eosinophils (%) (Auto) 1.5 % (0.0-3.0) Basophils (%) (Auto) 1.1 % (0.0-2.0) Sodium Level 145 mEQ/L (135-145) Potassium Level 4.0 mEQ/L (3.4-4.9) Chloride Level 108 mEQ/L (98-107) H Carbon Dioxide Level 25 mEQ/L (20-30) Anion Gap 12 (5-15) Blood Urea Nitrogen 10 mg/dL (7-23) Creatinine 0.6 mg/dL (0.7-1.2) L Estimat Glomerular Filtration Rate > 60 mL/min (>60) Glucose Level 144 mg/dL (74-106) H Calcium Level 8.8 mg/dL (8.6-10.2) Height (Feet): 5 Height (Inches): 5.00 Weight (Pounds): 200 General Appearance: no apparent distress, alert Cardiovascular: normal rate Respiratory/Chest: lungs clear, normal breath sounds Abdominal Exam: soft, GT site - c/d/i Chanell Ocampo N.P. Nov 14, 2016 15:51
--- NOTE | 2016-11-16 15:58 | Discharge Summary ---
Discharge Summary Hospital Course Date of Admission Nov 12, 2016 at 11:18 Date of Discharge Nov 14, 2016 at 15:16 Admitting Diagnosis G-Tube Malfunction HPI Tim Conti is a 56 year old male who was admitted on Nov 12, 2016 at 11:18 for G- Tube Malfunction Procedures [id number] Discharge Discharge Disposition Patient was discharged to [facility] (04) Discharge Diagnoses: Marah Kearns CHAINSTITCH HEMMER Nov 16, 2016 15:58
--- NOTE | 2016-11-16 21:30 | Discharge Summary 2 SIG ---
DATE OF ADMISSION: 11/12/2016 DATE OF DISCHARGE: 11/14/2016 QUALITY ANALYST/TECHNICAL WRITER: Deep Faust M.D. BRIEF HOSPITAL COURSE: The patient is a 56-year-old male with history of encephalopathy, stroke, dysphagia status post G-tube, who was recently hospitalized due to dehydration and sepsis where he was discharged to a intermediate facility and he apparently pulled out his G-tube. He was taken to [facility] ED and attempt to replace the G-tube was done at ED, however, unable to advance the G-tube pass 2 cm. G-tube tract was closed and needed GI evaluation. The patient was then admitted for further evaluation and care. He was admitted to medical floor and was started on IV hydration. Xarelto was placed on hold. He was seen by Dr. Faust and underwent EGD with PEG tube placement on 11/13/2016. G-tube feeding was then started. Abdominal binder was placed. Advised to elevate the head of the bed at all times. He came in with multiple deep tissue injury pressure ulcer. He was provided with a local wound care and penile erosion was applied with Triad cream. He was tolerating feeding and was eventually [facility] to [facility]. FINAL DIAGNOSES: 1. Dislodged and malfunctioning gastrostomy tube status post new percutaneous endoscopic gastrostomy tube placement. 2. Chronic encephalopathy. 3. Multiple deep tissue injury with pressure ulcer, present on admission. DISPOSITION: The patient was discharged back to SNF. DISCHARGE MEDICATIONS: Please refer to medication list. PROCEDURE: Status post esophagogastroduodenoscopy with percutaneous endoscopic gastrostomy tube placement on 11/13/2016. Gabo Smith M.D. I have been assigned to dictate discharge summary on this account and I was not involved in the patient's management. Marah Kearns N.P. DR: SHUBHAM JOB#: [id number] CC: SABINA
== END 2016-11-14 15:16 | DRG 252 ==
LOC: EDBD 10:37 → EDBEDREQ 10:55 → EMR 11:10 → EDBEDREQ 11:17 → OBSVTOIN 11:18 → 4W 11:18 → EDBEDREQ 11:21
PROC: 0DH63UZ Insertion of Feeding Device into Stomach, Percutaneous Approach (ICD-10-PCS; 2016-11-13)
PROC: 0DH63UZ Insertion of Feeding Device into Stomach, Percutaneous Approach (ICD-10-PCS; principal; 2016-11-13 09:15)
PROC: 0DB68ZX Excision of Stomach, Via Natural or Artificial Opening Endoscopic, Diagnostic (ICD-10-PCS; 2016-11-13 09:15)
DX: K94.23 Gastrostomy malfunction (principal); G93.49 Other encephalopathy; L89.320 Pressure ulcer of left buttock, unstageable; L89.150 Pressure ulcer of sacral region, unstageable; L89.310 Pressure ulcer of right buttock, unstageable; R13.10 Dysphagia, unspecified; Z86.73 Personal history of transient ischemic attack (TIA), and cerebral infarction without residual deficits; K31.7 Polyp of stomach and duodenum; Z89.9 Acquired absence of limb, unspecified
CPT/HCPCS: 36415; 80048; 80053; 82962; 85025; 85610; 85730; 87081; 94003; 94150; J1815

== ENCOUNTER 2017-03-10 05:18 | Inpatient (IN) | payer MEDICAID ==
[~2017-03-10] VITALS: Ht 172.7 cm; Wt 90.7 kg
[~2017-03-10 05:18] MED LIST changes: +PEPCID20 MG GT
--- NOTE | 2017-03-10 05:51 | Emergency Room Report ---
History of Present Illness General Chief Complaint: Male Urogenital Problems Source: Medical Record (Froy Garcia) Present Illness HPI Patient is a 56-year-old male brought in by EMS after increased hematuria. Patient prior history of suprapubic catheter placement. He had been on oral anticoagulants. The patient was noted to be tachycardic by EMS. He had been noted to have increased bleeding in his catheter. He had reportedly not been vomiting. The patient was noted to be bedridden and had chronic upper lower extremity neurologic impairment (Froy Garcia) Allergies: Coded Allergies: CIPROFLOXACIN (Verified Allergy, Unknown, 08/23/15) Patient History Past Medical History: old chart reviewed Reviewed Nursing Documentation: PMH: Agreed, PSxH: Agreed (Froy Garcia) Nursing Documentation-PMH Past Medical History: No History, Except For Hx Cardiac Problems: No - Bilateral Myopia, Dysphagia Hx Diabetes: Yes - Type 2 Hx Cancer: No Hx Gastrointestinal Problems: Yes - Encephalopathy, UTI, Obstructive Hydrocephalus Hx Neurological Problems: Yes - Functional Quadriplegia Hx Cerebrovascular Accident: Yes Hx Paralysis: Yes - paraplegic Hx Speech Problem: Yes Hx Aphasia: Yes (Froy Garcia) Review of Systems All Other Systems: limited - by poor historian (Froy Garcia) Physical Exam Vital Signs Date Time Temp Pulse Resp B/P (MAP) Pulse Ox O2 Delivery O2 Flow Rate FiO2 03/10/17 05:19 120 16 111/72 95 Room Air Sp02 EP Interpretation: normal General Appearance: moderate distress, obese, Chronically Ill Eyes: bilateral eye PERRL ENT: hearing grossly normal Neck: limited range of motion Respiratory: lungs clear, no retraction Cardiovascular #1: tachycardia, edema Gastrointestinal: normal inspection, non tender, other - gtube site, c/d/I Musculoskeletal: decreased range of motion, other - deformity to left wrist Neurologic: alert, responsive, motor weakness Skin: other - decubitus ulcers (Froy Garcia) Procedures Critical Care Time Critical Care Time 30 minutes CC time 30minutes Critical care time includes review of laboratory tests, imaging, review of EMR, review of paperwork from SNF (if available), discussion with patient and family (if available), review of code status/POLS (if available). Critical care time also likely includes assessment of fluid status, stabilization of vital signs, selection and dosing of appropriate antibiotics, selection and dosing of Aspirin/Plavix/Heparin/Lovenox, discussion with PMD/ attending hospitalist/lottery manager. Critical care time does not include any procedures which are documented elsewhere in this EMR. (GA GAINES M.D.) Medical Decision Making Diagnostic Impression: Primary Impression: Severe sepsis Additional Impressions: Gross hematuria Tachycardia with heart rate 121-140 beats per minute Encephalopathy chronic Scrotal disorder ER Course The patient presented for hematuria. Differential diagnosis included was not limited to urinary tract infection, renal cell carcinoma, bladder CA pyelonephritis among others.Because of complexity of patient's case laboratory testing and imaging studies were ordered. The patient noted be on anticoagulation. Patient was given IV antibiotics and IV fluids. Dr. Gabo Smith was contacted for inpatient management due to prior admission and primary care physician coverage. Labs Test 03/10/17 06:04 03/10/17 08:15 White Blood Count 34.1 K/UL (4.8-10.8) Red Blood Count 5.00 M/UL (4.70-6.10) Hemoglobin 15.1 G/DL (14.2-18.0) Hematocrit 46.0 % (42.0-52.0) Mean Corpuscular Volume 92 FL (80-99) Mean Corpuscular Hemoglobin 30.3 PG (27.0-31.0) Mean Corpuscular Hemoglobin Concent 32.9 G/DL (32.0-36.0) Red Cell Distribution Width 14.4 % (11.6-14.8) Platelet Count 181 K/UL (150-450) Mean Platelet Volume 12.7 FL (6.5-10.1) Neutrophils (%) (Auto) % (45.0-75.0) Lymphocytes (%) (Auto) % (20.0-45.0) Monocytes (%) (Auto) % (1.0-10.0) Eosinophils (%) (Auto) % (0.0-3.0) Basophils (%) (Auto) % (0.0-2.0) Differential Total Cells Counted 100 Neutrophils % (Manual) 62 % (45-75) Lymphocytes % (Manual) 4 % (20-45) Monocytes % (Manual) 8 % (1-10) Eosinophils % (Manual) 0 % (0-3) Basophils % (Manual) 0 % (0-2) Band Neutrophils 26 % (0-8) Platelet Estimate Adequate Platelet Morphology Normal Red Blood Cell Morphology Normal Anisocytosis Prothrombin Time 11.1 SEC (9.30-11.50) Prothromb Time International Ratio 1.1 (0.9-1.1) Activated Partial Thromboplast Time 27 SEC (23-33) Urine Color Brown Urine Appearance Cloudy Urine pH 7 (4.5-8.0) Urine Specific [place] 1.010 (1.005-1.035) Urine Protein 3+ (NEGATIVE) Urine Glucose (UA) Negative (NEGATIVE) Urine Ketones 2+ (NEGATIVE) Urine Occult Blood 5+ (NEGATIVE) Urine Nitrite Negative (NEGATIVE) Urine Bilirubin 1+ (NEGATIVE) Urine Ictotest Negative Urine Urobilinogen 4 MG/DL (0.0-1.0) Urine Leukocyte Esterase 3+ (NEGATIVE) Urine RBC Tntc /HPF (0 - 0) Urine WBC 20-30 /HPF (0 - 0) Urine Squamous Epithelial Cells Occasional /LPF Urine Bacteria Few /HPF (NONE) Sodium Level 145 MMOL/L (136-145) Potassium Level 4.8 MMOL/L (3.5-5.1) Chloride Level 110 MMOL/L (98-107) Carbon Dioxide Level 27 MMOL/L (21-32) Anion Gap 8 mmol/L (5-15) Blood Urea Nitrogen 48 mg/dL (7-18) Creatinine 1.6 MG/DL (0.55-1.30) Estimat Glomerular Filtration Rate 44.6 mL/min (>60) Glucose Level 124 MG/DL (74-106) Calcium Level 9.2 MG/DL (8.5-10.1) Total Bilirubin 0.5 MG/DL (0.2-1.0) Aspartate Amino Transf (AST/SGOT) 46 U/L (15-37) Alanine Aminotransferase (ALT/SGPT) 35 U/L (12-78) Alkaline Phosphatase 82 U/L (46-116) Total Creatine Kinase 85 U/L (26-308) Creatine Kinase MB < 0.5 NG/ML (0.0-3.6) Creatine Kinase MB Relative Index 0.5 Troponin I 0.000 ng/mL (0.000-0.056) Total Protein 9.0 G/DL (6.4-8.2) Albumin 2.9 G/DL (3.4-5.0) Globulin 6.1 g/dL Albumin/Globulin Ratio 0.5 (1.0-2.7) Lactic Acid Level 2.90 mmol/L (0.66-2.22) (Froy Garcia) ER Course Received signout from Dr Garcia at 630am VS significant for fever, tachycardia, and now hypotension Lactate >3 Was given IVF, Abx GTube tylenol changed to [place] Given additional fluid bolus to meet 30cc/kg sepsis bundle - lungs CTAB on my exam. Patient 100% on room air, there is room for more fluid resuscitation. CXR does not show PNA UA with multiple WBCs, LE 3+ - likely source There is also a scrotal wound that could be source Patient already endorsed to Dr Smith - I will update him at 718am (GA GAINES M.D.) EKG Diagnostic Results Rate: tachycardiac Rhythm: NSR (Froy Garcia) Rhythm Strip Diag. Results EP Interpretation: yes Rhythm: no PVC's, no ectopy (Froy Garcia) EP Interpretation: yes Rate: 125 Rhythm: NSR, no PVC's, no ectopy (GA GAINES M.D.) Last Vital Signs Date Time Temp Pulse Resp B/P (MAP) Pulse Ox O2 Delivery O2 Flow Rate FiO2 03/10/17 05:19 120 16 111/72 95 Room Air Status: unchanged (Froy Garcia) Status: improved (GA GAINES M.D.) Disposition: ADMITTED INPATIENT Condition: Critical Froy Garcia Mar 10, 2017 05:51 GA GAINES M.D. Mar 10, 2017 07:21
[2017-03-10] MEDS ORDERED: cefTRIAXone 1 GM in NS 55 ML IVPB ONE (06:00)
[2017-03-10 06:29] VITALS: BP 90/65
[2017-03-10] MEDS ORDERED: Acetaminophen 650mg/20.3ml GT ONE (06:30)
[2017-03-10 06:46] LABS: MEAN CORPUSCULAR HEMOGLOBIN 30.3 PG (27.0-31.0); MEAN CORPUSCULAR HGB CONC 32.9 G/DL (32.0-36.0); MEAN CORPUSCULAR VOLUME 92 FL (80-99); MEAN PLATELET VOLUME 12.7 FL (6.5-10.1); PLATELET COUNT 181 K/UL (150-450); RED CELL DISTRIBUTION WIDTH 14.4 % (11.6-14.8)
[2017-03-10 06:47] LABS: WHITE BLOOD COUNT 34.1 K/UL (4.8-10.8)
[2017-03-10 06:52] LABS: ANION GAP 8 mmol/L (5-15); CALCIUM 9.2 MG/DL (8.5-10.1); CARBON DIOXIDE 27 MMOL/L (21-32); CHLORIDE 110 MMOL/L (98-107); CREATININE 1.6 MG/DL (0.55-1.30); GLOMERULAR FILTRATION RATE 44.6 mL/min (>60); SODIUM 145 MMOL/L (136-145)
[2017-03-10 06:53] LABS: INR 1.1 (0.9-1.1); PROTHROMBIN TIME 11.1 SEC (9.30-11.50)
[2017-03-10 06:57] LABS: APPEARANCE,URINE CLOUDY; KETONES,URINE 2+ (NEGATIVE); LEUKOCYTE ESTERASE ,URINE 3+ (NEGATIVE); NITRITE,URINE NEGATIVE (NEGATIVE); PH,URINE 7 (4.5-8.0); PROTEIN,URINE 3+ (NEGATIVE); UROBILINOGEN,URINE 4 MG/DL (0.0-1.0)
[2017-03-10 07:00] LABS: BACTERIA,URINE FEW /HPF; RBC,URINE TNTC /HPF (0 - 0); SQUAMOUS EPITHELIAL CELL,UR OCCASIONAL /LPF (NONE/OCC); WBC,URINE 20-30 /HPF (0 - 0)
[2017-03-10 07:01] LABS: ICTOTEST NEGATIVE
[2017-03-10 07:06] LABS: ALANINE AMINOTRANSFERASE 35 U/L (12-78); ALBUMIN/GLOBULIN RATIO 0.5 (1.0-2.7); ASPARTATE AMINO TRANSFERASE 46 U/L (15-37); CKMB < 0.5 NG/ML (0.0-3.6)
[2017-03-10 07:07] LABS: POTASSIUM 4.8 MMOL/L (3.5-5.1)
[2017-03-10] MEDS ORDERED: Acetaminophen 650 MG SUPP RECTAL ONE (07:15)
[2017-03-10 07:17] LABS: REFLEX LACTIC ACID YES OR NO YES
[2017-03-10 07:47] VITALS: BP 109/76
[2017-03-10 08:05] LABS: BAND NEUTROPHILS % (MANUAL) 26 % (0-8); BASOPHILS % (MANUAL) 0 % (0-2); EOSINOPHILS % (MANUAL) 0 % (0-3); LYMPHOCYTES % (MANUAL) 4 % (20-45); NEUTROPHILS % (MANUAL) 62 % (45-75); PLATELET ESTIMATE ADEQUATE; PLATELET MORPHOLOGY NORMAL; TOTAL CELLS COUNTED 100
[2017-03-10] MEDS ORDERED: Albuterol 90mcg Inhaler 8gm INH SCH (09:00)
[2017-03-10] MEDS ORDERED: Fleet's Enema 133ml RECTAL PRN (09:00)
[2017-03-10] MEDS: Multivitamin w/Minerals tab ORAL SCH (09:52)
[2017-03-10] MEDS: Docusate 100mg cap ORAL SCH ×2 (09:52→17:17)
[2017-03-10] MEDS: Bisacodyl EC 5mg tab ORAL SCH (09:52)
[2017-03-10] MEDS ORDERED: Potassium Chloride 10 MEQ in D5 1/2NS 1,000 ML IV SCH (10:00)
--- NOTE | 2017-03-10 10:29 | Diagnostic Imaging Report ---
Indication: Dyspnea Comparison: 11/05/16 A single view chest radiograph was obtained. Findings: Lung volumes are low. There is scarring in the right upper lobe. Of interstitium is prominent. A moderate CHF not excluded. Impression: Limited evaluation because of low lung volumes. Mild interstitial edema not excluded
[2017-03-10] MEDS ORDERED: Vancomycin 1.5 GM/D5W 250ML IVPB ONE ×2 (10:30)
[2017-03-10] MEDS: Milk of Magnesia 30ml Ud ORAL SCH (10:54)
[2017-03-10] MEDS: D5 1/2NS w/KCL 10meq 1,000 ML IV SCH ×2 (11:00→20:26)
[2017-03-10 11:58] VITALS: BP 107/73
[2017-03-10] MEDS: Piperacillin/Tazobactam 3.375 GM in D5W 110 ML IVPB SCH ×2 (14:07→20:25)
[2017-03-10 15:58] VITALS: BP 110/77
[2017-03-10] MEDS: NovoLOG Insulin Flexpen SUBQ SCH (17:28)
--- NOTE | 2017-03-10 18:19 | Cardiology Report ---
APPROVED REPORT EKG Measurement Heart [id number] NH [id number] [id number] Sinus tachycardia Right superior axis deviation Abnormal ECG
[2017-03-10] MEDS: Albuterol 90mcg Inhaler 8gm INH SCH ×2 (19:00→23:00)
[2017-03-10 20:00] VITALS: BP 133/65
[2017-03-10] MEDS ORDERED: D5W 275ml ONE (20:14)
[2017-03-10] MEDS ORDERED: NS 500ML ONE (20:14)
[2017-03-10] MEDS ORDERED: Sterile Water For Irrig 2000ml IRRIG ONE (20:14)
[2017-03-10] MEDS ORDERED: Tubing IV Secondary IV ONE (20:14)
--- NOTE | 2017-03-10 20:15 | Consultation ---
DATE OF CONSULTATION: 03/10/2017 CONSULTING PHYSICIAN: Kulwinder Helms M.D. REFERRING PHYSICIAN: Gabo Smith M.D. REASON FOR THE CONSULTATION: Evaluation of suprapubic tube and scrotal wound. HISTORY OF PRESENT ILLNESS: This is a 56-year-old male, resident of an nursing home facility. He has a chronic suprapubic tube. He was noted to have open scrotal wound. The exact duration is unknown, however, apparently, the wound has been there for some time. He was brought to the emergency room for evaluation. Apparently, suprapubic tube catheter was changed in the emergency room. Urology evaluation was requested. PAST MEDICAL HISTORY: Significant for above. He has a history of myopia, encephalopathy, quadriplegia, contractures, chronic suprapubic tube. MEDICATIONS: List was reviewed. PHYSICAL EXAMINATION: GENERAL: An elderly male, contracted, nonverbal. VITAL SIGNS: Stable. Temperature is 101.3. ABDOMEN: Soft. GENITOURINARY: Suprapubic tube is in place, the 20-[place] three-way. The urine is yellowish with some debris. The scrotal area was inspected. There was an open wound. It appears to have some granulation in it and I believe this is an old wound, it is not new. There is no active bleeding. I did personally irrigate suprapubic tube and the position is good, but I could see some of the irrigation fluid coming through the wound and it may have urethral opening. LABORATORY AND DIAGNOSTIC DATA: BUN 48, creatinine 1.6. White count is 34, hemoglobin 15, and platelets 181. His imaging studies were reviewed. He did have a CT scan of the abdomen and pelvis back in 2016 and at that time there was mention of clusters of stones just posterior to the urethra, possibly a large bladder diverticulum with stones in it. He also had evidence of renal cyst. UA showed too numerous to count RBCs, 20 to 30 WBCs. The patient had a CT scan last year, there was mention of a cluster of stones in the scrotal area, possibly inside bladder diverticulum, there was also mention of renal cysts. IMPRESSION: 1. Urinary retention with chronic suprapubic tube. 2. Probable neurogenic bladder. 3. Hematuria. 4. Pyuria and colonization. 5. Mild acute kidney injury. 6. Renal cyst. 7. 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 PLAN AND DISCUSSION: Again as noted above, the patient does have a scrotal wound, which appears to be old. I would recommend wound care. Any further management of the wound would require plastic surgery evaluation or tertiary care. It may have been that he had a stone that was lodged in the diverticulum that eroded through with an opening in the urethra. At this time, we would just recommend to keep the suprapubic tube. I irrigated it. It is in good position and also continue with antibiotics as ordered. Kulwinder Helms M.D. DR: Estiven JOB#: [id number] CC:
[2017-03-10] MEDS: Vancomycin 1gm/D5W 275ml IVPB SCH ×2 (22:03)
[2017-03-11] VITALS: BP 97/67
[2017-03-11] MEDS: Albuterol 90mcg Inhaler 8gm INH SCH ×5 (03:00→23:00)
[2017-03-11 04:00] VITALS: BP 106/70
[2017-03-11] MEDS: Piperacillin/Tazobactam 3.375 GM in D5W 110 ML IVPB SCH ×3 (04:42→20:00)
[2017-03-11] MEDS: NovoLOG Insulin Flexpen SUBQ SCH ×4 (06:00→17:30)
[2017-03-11] MEDS: D5 1/2NS w/KCL 10meq 1,000 ML IV SCH ×2 (07:00→16:44)
[2017-03-11 08:22] VITALS: BP 90/61
[2017-03-11 08:34] LABS: ALANINE AMINOTRANSFERASE 25 U/L (12-78); ALBUMIN/GLOBULIN RATIO 0.5 (1.0-2.7); ANION GAP 5 mmol/L (5-15); ASPARTATE AMINO TRANSFERASE 20 U/L (15-37); CALCIUM 7.7 MG/DL (8.5-10.1); CARBON DIOXIDE 26 MMOL/L (21-32); CHLORIDE 111 MMOL/L (98-107); CREATININE 0.9 MG/DL (0.55-1.30); GLOMERULAR FILTRATION RATE > 60 mL/min (>60); POTASSIUM 3.6 MMOL/L (3.5-5.1); SODIUM 142 MMOL/L (136-145); TOTAL PROTEIN 6.9 G/DL (6.4-8.2)
[2017-03-11 08:35] LABS: BASOPHILS % (AUTO) 0.6 % (0.0-2.0); MEAN CORPUSCULAR HEMOGLOBIN 31.1 PG (27.0-31.0); MEAN CORPUSCULAR HGB CONC 33.4 G/DL (32.0-36.0); MEAN CORPUSCULAR VOLUME 93 FL (80-99); MEAN PLATELET VOLUME 11.3 FL (6.5-10.1); MONOCYTES % (AUTO) 6.2 % (1.0-10.0); NEUTROPHILS % (AUTO) 81.2 % (45.0-75.0); PLATELET COUNT 121 K/UL (150-450); RED BLOOD COUNT 4.14 M/UL (4.70-6.10); RED CELL DISTRIBUTION WIDTH 14.8 % (11.6-14.8); WHITE BLOOD COUNT 13.1 K/UL (4.8-10.8)
--- NOTE | 2017-03-11 09:28 | Urology Progress Note ---
Assessment/Plan Assessment/Plan 1. Urinary retention with chronic suprapubic tube. 2. Probable neurogenic bladder. 3. Hematuria. 4. Pyuria and colonization. 5. Mild acute kidney injury. 6. Renal cyst. 7. 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 abx as ordred local wound care sp tube hand irrigated, would irrigate PRN Subjective Allergies: Coded Allergies: CIPROFLOXACIN (Verified Allergy, Unknown, 08/23/15) Subjective all noted Objective Last 24 Hour Vital Signs Date Time Temp Pulse Resp B/P (MAP) Pulse Ox O2 Delivery O2 Flow Rate FiO2 03/11/17 08:22 98.2 97 20 90/61 97 03/11/17 06:51 Room Air 03/11/17 06:49 107 14 94 Room Air 21 03/11/17 04:00 108 18 106/70 03/11/17 04:00 111 03/11/17 03:52 Room Air 03/11/17 03:52 Room Air 03/11/17 00:00 115 03/11/17 00:00 100.4 119 18 97/67 96 Room Air 03/10/17 23:49 Room Air 03/10/17 23:49 Room Air 03/10/17 20:00 124 03/10/17 20:00 98.6 129 23 133/65 97 Room Air 03/10/17 19:40 Room Air 03/10/17 19:39 80 16 98 Room Air 21 03/10/17 16:00 129 03/10/17 15:58 97.7 129 20 110/77 96 03/10/17 12:00 120 03/10/17 11:58 98.9 122 20 107/73 100 Microbiology Date/Time Source Procedure Growth Status 03/10/17 06:04 Indwelling Cath Urine Culture - Preliminary Gram Negative Bacillus 1 Resulted Current Medications Medications (Trade) Dose Ordered Sig/Fab Route PRN Reason Start Time Stop Time Status Last Admin Dose Admin Acetaminophen (Tylenol) 650 mg DAILY PRN ORAL For Pain 03/10/17 09:00 04/09/17 08:59 Albuterol Sulfate (Proventil MDI) 1 puff Q4HRT INH 03/10/17 15:00 04/09/17 08:59 Bisacodyl (Dulcolax) 10 mg DAILY ORAL 03/10/17 09:00 04/09/17 08:59 03/10/17 09:52 Bisacodyl (Dulcolax) 10 mg DAILYPRN PRN RECTAL Constipation 03/10/17 09:00 04/09/17 08:59 Dextrose (Dextrose 50%) STAT PRN IV Hypoglycemia 03/10/17 14:45 04/09/17 14:44 Dextrose/ Electrolytes 1,000 ml @ 100 mls/hr Q10H IV 03/10/17 11:00 04/09/17 10:59 03/10/17 20:26 Docusate Sodium (Colace) 100 mg TWICE A DAY ORAL 03/10/17 09:00 04/09/17 08:59 03/10/17 17:17 Insulin Aspart (NovoLOG) Q6HR SUBQ 03/10/17 18:00 04/09/17 17:59 Magnesium Hydroxide (Mom) 30 ml DAILY ORAL 03/10/17 10:00 04/09/17 09:59 03/10/17 10:54 Multivitamins Therapeutic (Therapeutic Multivitamin) 1 ea DAILY ORAL 03/10/17 09:00 04/09/17 08:59 03/10/17 09:52 Pantoprazole (Protonix) 40 mg DAILY ORAL 03/10/17 09:00 04/09/17 08:59 03/10/17 09:52 Piperacillin Sod/ Tazobactam Sod 3.375 gm/Dextrose 110 ml @ 27.5 mls/hr Q8H IVPB 03/10/17 12:00 03/17/17 11:59 03/11/17 04:42 Ranitidine HCl (Zantac) 150 mg BEDTIME ORAL 03/10/17 21:00 04/09/17 20:59 03/10/17 20:25 Sodium Phosphate (Fleet's Sodium Phosl Enema) 133 ml DAILYPRN PRN RECTAL IF DULCOLAX INEFFECTIVE 03/10/17 09:00 04/09/17 08:59 Vancomycin HCl (Vanco rx to dose) 1 ea DAILY PRN MISC Per rx protocol 03/10/17 09:00 04/09/17 08:59 Vancomycin HCl 1 gm/Dextrose 275 ml @ 183.708 mls/hr Q12H IVPB 03/10/17 22:00 03/15/17 21:59 03/10/17 22:03 Laboratory Tests 03/11/17 06:05: White Blood Count 13.1#H, Red Blood Count 4.14L, Hemoglobin 12.9L, Hematocrit 38.6L, Mean Corpuscular Volume 93, Mean Corpuscular Hemoglobin 31.1H, Mean Corpuscular Hemoglobin Concent 33.4, Red Cell Distribution Width 14.8, Platelet Count 121L, Mean Platelet Volume 11.3H, Neutrophils (%) (Auto) 81.2H, Lymphocytes (%) (Auto) 11.0L, Monocytes (%) (Auto) 6.2, Eosinophils (%) (Auto) 1.0, Basophils (%) (Auto) 0.6, Sodium Level 142, Potassium Level 3.6, Chloride Level 111H, Carbon Dioxide Level 26, Anion Gap 5, Blood Urea Nitrogen 23H, Creatinine 0.9, Estimat Glomerular Filtration Rate > 60, Glucose Level 142H, Lactic Acid Level 0.90, Calcium Level 7.7L, Total Bilirubin 0.4, Aspartate Amino Transf (AST/SGOT) 20, Alanine Aminotransferase (ALT/SGPT) 25, Alkaline Phosphatase 70, Total Protein 6.9, Albumin 2.4L, Globulin 4.5, Albumin/Globulin Ratio 0.5L Height (Feet): 5 Height (Inches): 8.00 Weight (Pounds): 200 Objective exam stable CHIP BURKETT Mar 11, 2017 09:28
[2017-03-11] MEDS: Milk of Magnesia 30ml Ud ORAL SCH (09:50)
[2017-03-11] MEDS: Multivitamin w/Minerals tab ORAL SCH (09:51)
[2017-03-11] MEDS: Docusate 100mg cap ORAL SCH ×2 (09:51→17:29)
[2017-03-11] MEDS: Vancomycin 1gm/D5W 275ml IVPB SCH ×4 (09:52→21:58)
[2017-03-11] MEDS: Bisacodyl EC 5mg tab ORAL SCH (09:54)
--- NOTE | 2017-03-11 11:15 | Diagnostic Imaging Report ---
Indication: Abdominal pain Technique: Continuous helical transaxial imaging of the abdomen and pelvis was obtained from the lung bases to the pubic symphysis. No intravenous contrast was administered. Coronal 2-D reformats were also obtained. Automatic Exposure Control was utilized. Total Dose length Product (DLP): [address] Dose Index Volume (CTDIvol): 0.15 19.75mGy Comparison: 08/23/15 Findings: Gastrostomy noted in the position. The gallbladder is unremarkable. Nonobstructive stones are noted within the right kidney and left kidney. Nonobstructive stone 6 mm in size in the left renal pelvis noted. There is no hydronephrosis. The ureters are normal caliber. Urinary bladder is relatively nondistended. There is a suprapubic catheter in place. There is moderate distention of the rectum due to feces. There is thickening of the rectal wall. Surgical clips noted in the lower abdomen. Appendix not definitely seen. No free fluid, free air or bowel obstruction identified. The aorta is mildly calcified. Hypodensity in the posterior right lobe of the liver stable compared to last study. This is probably a hemangioma or cyst. Other liver hypodensities are grossly stable. There is no adrenal mass. Cyst in the left kidney appear stable. Impression: Bilateral nonobstructive nephrolithiasis. Moderate fecal retention with distention of the rectum and evidence of proctitis. Suprapubic catheter in good position. Gastrostomy good position. Multiple liver hypodensities stable compared to the prior exams. Left renal cysts. The CT scanner at [facility] is accredited by the [employer] and the scans are performed using dose optimization techniques as appropriate to a performed exam including Automatic Exposure control.
[2017-03-11 12:00] VITALS: BP 111/78
--- NOTE | 2017-03-11 16:00 | History and Physical Report ---
DATE OF ADMISSION: 03/10/2017 CHIEF COMPLAINT: Scrotal wound and shortness of breath. HISTORY OF PRESENT ILLNESS: The patient is an unfortunate 56-year-old male. He has a history of stroke, suprapubic catheter, dysphagia, status post G-tube, and hypertension. He was transferred from a [facility] facility with complaints of fevers and shortness of breath. On evaluation in the emergency room, the patient was noted to be febrile. He was also tachycardic and had an elevated white count of 34,000. He was noted to have a scrotal wound and UA with numerous WBCs. The patient has been pancultured. He has been started on broad-spectrum IV antibiotics. He is now admitted for further evaluation and care. He is nonverbal at baseline. He is unable to provide any history. PAST MEDICAL HISTORY: As above. PAST SURGICAL HISTORY: Includes history of suprapubic catheter and G-tube. CURRENT MEDICATIONS: Reconciled and reviewed. ALLERGIES: Include Cipro. SOCIAL HISTORY: There is no known history of tobacco, ethanol, or drugs. FAMILY HISTORY: Noncontributory. REVIEW OF SYSTEMS: From the patient is unobtainable as the patient is nonverbal. PHYSICAL EXAMINATION: VITAL SIGNS: Initial temperature was 100.4 degrees, pulse 119, respirations 18, and blood pressure 96/67. GENERAL: The patient is a well-developed male, in no apparent distress. He is nonverbal, but awake. NECK: Supple. HEART: Regular rate and rhythm. LUNGS: Clear. ABDOMEN: Soft, nontender, and nondistended. EXTREMITIES: Without clubbing or cyanosis. There is an approximately 1 inch scrotal wound that is open, but appears clean. There is some bleeding noted. LABORATORY DATA: White count is 34,000 and hemoglobin 15. Sodium 145, BUN 48, and creatinine is 1.6. Lactic acid level is 3.1. UA showed 20 to 30 WBCs. ASSESSMENT: This is an unfortunate male with history of stroke, dysphagia, gastrostomy tube, and history of suprapubic catheter, admitted with a large scrotal wound and possible sepsis secondary to urinary tract infection. The wound does not appear to be infected. It appears clean. PLAN: IV antibiotics. Follow up cultures. ID and Urology consultations. Continue local wound care. Xarelto will be discontinued in light of the bleeding from the wound. Gabo Smith M.D. DR: Juan Diego JOB#: [id number] CC:
[2017-03-11 16:23] VITALS: BP 99/77
--- NOTE | 2017-03-11 18:30 | Consultation ---
DATE OF CONSULTATION: 03/11/2017 INFECTIOUS DISEASE CONSULTATION CONSULTING PHYSICIAN: Alex Balbuena M.D. This consultation is for coverage of Dr. Marques. PRIMARY ATTENDING PHYSICIAN: Gabo Smith M.D. REASON FOR CONSULTATION: Gram-negative sepsis and UTI. HISTORY OF PRESENT ILLNESS: This is a 56-year-old [facility] resident, admitted yesterday because of hematuria. The patient had a temperature of 101.3 in the ER, tachycardia with heart rate up to 136. In addition to hematuria, he has scrotal wound and significant leukocytosis. Blood culture is growing positive for gram-negative marisa today. PAST MEDICAL HISTORY: Significant for suprapubic catheter, diabetes mellitus type 2, and functional quadriplegia secondary to hydrocephalus. The patient has a G-tube placement in the previous admission in November of 2016. ALLERGIES: Allergic to Cipro. MEDICATIONS: Getting vancomycin, ranitidine, insulin, albuterol, Zosyn, magnesium hydroxide, Tylenol, bisacodyl, multivitamin, and Protonix. SOCIAL HISTORY: Single. Lives in [facility]. REVIEW OF SYSTEMS: Difficult to obtain, just saying yes or no answer to the question. Has no pain. PHYSICAL EXAMINATION: VITAL SIGNS: Temperature 98.2, pulse 91, and blood pressure 90/60. T-max is 101.3. GENERAL APPEARANCE: Seems to be obese. HEAD AND NECK: [place] conjunctivae. HEART: Regular. LUNGS: Clear. ABDOMEN: Soft. There is a scar of midline surgery. GENITOURINARY: Has Kenny catheter. Has ulcer in scrotal area near midline, slightly left side that seems to be deep. EXTREMITIES: Has a finger amputation, left thumb. No significant edema. LABORATORY DATA: WBC yesterday was 34.1, coming down to 13.1; hemoglobin 12.9; hematocrit 38.6; and platelets 121. Sodium 142, potassium 3.6, chloride 111, bicarbonate 26, BUN 23, creatinine 0.9, and glucose 142. Blood culture x2, gram-negative rods. Urine culture, gram-negative rods. The patient had abdominal CT scan, which does show bilateral nephrolithiasis, fecal retention, suprapubic catheter, gastrostomy tube, and left renal cyst. IMPRESSION: Gram-negative sepsis, most likely secondary to complicated urinary tract infection. The patient has a suprapubic catheter. 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 Has diabetes mellitus type 2, on insulin. Has functional quadriplegia and lactic acidosis. RECOMMENDATION: We will continue with Zosyn and vancomycin. We will follow up the cultures and narrow antibiotic. At the end of my exam, I thank Dr. Smith for involving me in the care of this patient. Alex Balbuena M.D. DR: ERWIN JOB#: [id number] CC:
[2017-03-11] MEDS: Dyna-Hex 2% Top Sol 2oz TOPIC SCH ×2 (20:00→23:38)
[2017-03-11 20:02] VITALS: BP 130/82
[2017-03-12] VITALS: BP 117/78
[2017-03-12] MEDS: NovoLOG Insulin Flexpen SUBQ SCH ×4 (00:34→17:22)
[2017-03-12] MEDS: Albuterol 90mcg Inhaler 8gm INH SCH ×6 (03:00→23:00)
[2017-03-12] MEDS: D5 1/2NS w/KCL 10meq 1,000 ML IV SCH ×2 (03:00→13:50)
[2017-03-12 04:00] VITALS: BP 124/85
[2017-03-12] MEDS: Piperacillin/Tazobactam 3.375 GM in D5W 110 ML IVPB SCH (04:00)
[2017-03-12] MEDS ORDERED: Heparin 2000 units/Ns 1000ml INJ ONE (06:00)
[2017-03-12] MEDS ORDERED: Lidocaine 1% Plain 30 ml INJ ONE (06:00)
--- NOTE | 2017-03-12 07:57 | General Progress Note ---
Assessment/Plan Problem List: (1) Cellulitis of scrotum ICD Codes: N49.2 - Inflammatory disorders of scrotum SNOMED: 09729738 (2) Severe sepsis ICD Codes: A41.9 - Sepsis, unspecified organism; R65.20 - Severe sepsis without septic shock SNOMED: 22704273 (3) Encephalopathy chronic ICD Codes: G93.49 - Other encephalopathy SNOMED: 90808336 (4) Scrotal disorder ICD Codes: N50.9 - Disorder of male genital organs, unspecified SNOMED: 48510917 (5) Gross hematuria ICD Codes: R31.0 - Gross hematuria SNOMED: 141267765 Status: stable, progressing Assessment/Plan iv abx follow up cultures wound care gt feeds decrease ivf Subjective ROS Limited/Unobtainable: Yes Constitutional: Reports: malaise, weakness HEENT: Reports: no symptoms Cardiovascular: Reports: no symptoms Respiratory: Reports: no symptoms Gastrointestinal/Abdominal: Reports: difficulty swallowing Genitourinary: Reports: no symptoms 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: Reports: pre-existing deficit Endocrine: Reports: no symptoms Hematologic/Lymphatic: Reports: no symptoms Allergies: Coded Allergies: CIPROFLOXACIN (Verified Allergy, Unknown, 08/23/15) All Systems: reviewed and negative except above Subjective no events. +blood cultures. on iv abx. noncompliant with care at times. Objective Last 24 Hour Vital Signs Date Time Temp Pulse Resp B/P (MAP) Pulse Ox O2 Delivery O2 Flow Rate FiO2 03/12/17 04:00 102 03/12/17 04:00 94 18 124/85 Room Air 03/12/17 03:26 Room Air 03/12/17 03:26 Room Air 03/12/17 00:00 97.9 101 20 117/78 98 Room Air 03/12/17 00:00 100 03/11/17 23:20 Room Air 03/11/17 23:19 Room Air 03/11/17 20:02 100 20 130/82 97 Room Air 03/11/17 20:00 104 03/11/17 19:10 Room Air 03/11/17 19:10 86 18 96 Room Air 03/11/17 16:23 97.5 94 20 99/77 96 03/11/17 16:00 97 03/11/17 15:07 Room Air 03/11/17 15:03 90 18 94 Room Air 21 03/11/17 12:00 94 03/11/17 12:00 97.7 95 20 111/78 98 03/11/17 11:38 Room Air 03/11/17 11:34 91 20 99 Room Air 21 03/11/17 08:22 98.2 97 20 90/61 97 03/11/17 08:00 98 Height (Feet): 5 Height (Inches): 8.00 Weight (Pounds): 200 Objective GENERAL: The patient is a well-developed male, in no apparent distress. He is nonverbal, but awake. NECK: Supple. HEART: Regular rate and rhythm. LUNGS: Clear. ABDOMEN: Soft, nontender, and nondistended. EXTREMITIES: Without clubbing or cyanosis. There is an approximately 1 inch scrotal wound that is open, but appears clean. There is some bleeding noted. CALEB LINDSAY Mar 12, 2017 07:57
--- NOTE | 2017-03-12 08:16 | Urology Progress Note ---
Assessment/Plan Assessment/Plan 1. Urinary retention with chronic suprapubic tube. 2. Probable neurogenic bladder. 3. Hematuria. 4. Pyuria and colonization. 5. Mild acute kidney injury. 6. Renal cyst. 7. 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 abx as ordred local wound care irrigate sp tube PRN Subjective Allergies: Coded Allergies: CIPROFLOXACIN (Verified Allergy, Unknown, 08/23/15) Subjective all noted Objective Last 24 Hour Vital Signs Date Time Temp Pulse Resp B/P (MAP) Pulse Ox O2 Delivery O2 Flow Rate FiO2 03/12/17 04:00 102 03/12/17 04:00 94 18 124/85 Room Air 03/12/17 03:26 Room Air 03/12/17 03:26 Room Air 03/12/17 00:00 97.9 101 20 117/78 98 Room Air 03/12/17 00:00 100 03/11/17 23:20 Room Air 03/11/17 23:19 Room Air 03/11/17 20:02 100 20 130/82 97 Room Air 03/11/17 20:00 104 03/11/17 19:10 Room Air 03/11/17 19:10 86 18 96 Room Air 21 03/11/17 16:23 97.5 94 20 99/77 96 03/11/17 16:00 97 03/11/17 15:07 Room Air 03/11/17 15:03 90 18 94 Room Air 21 03/11/17 12:00 94 03/11/17 12:00 97.7 95 20 111/78 98 03/11/17 11:38 Room Air 03/11/17 11:34 91 20 99 Room Air 21 03/11/17 08:22 98.2 97 20 90/61 97 Microbiology Date/Time Source Procedure Growth Status 03/10/17 06:12 Blood Blood Culture - Preliminary Gram Negative Bacillus 1 Resulted 03/10/17 06:04 Indwelling Cath Urine Culture - Final Proteus Mirabilis Complete Current Medications Medications (Trade) Dose Ordered Sig/Fab Route PRN Reason Start Time Stop Time Status Last Admin Dose Admin Acetaminophen (Tylenol) 650 mg DAILY PRN ORAL For Pain 03/10/17 09:00 04/09/17 08:59 Albuterol Sulfate (Proventil MDI) 1 puff Q4HRT INH 03/10/17 15:00 04/09/17 08:59 03/11/17 15:00 Bisacodyl (Dulcolax) 10 mg DAILY ORAL 03/10/17 09:00 04/09/17 08:59 03/11/17 09:54 Bisacodyl (Dulcolax) 10 mg DAILYPRN PRN RECTAL Constipation 03/10/17 09:00 04/09/17 08:59 Chlorhexidine Gluconate (Licha-Hex 2%) 1 applic DAILY@2000 TOPIC 03/11/17 20:00 04/10/17 19:59 Dextrose (Dextrose 50%) STAT PRN IV Hypoglycemia 03/10/17 14:45 04/09/17 14:44 Dextrose/ Electrolytes 1,000 ml @ 50 mls/hr Q20H IV 03/12/17 11:00 04/10/17 08:00 Docusate Sodium (Colace) 100 mg TWICE A DAY ORAL 03/10/17 09:00 04/09/17 08:59 03/11/17 17:29 Insulin Aspart (NovoLOG) Q6HR SUBQ 03/10/17 18:00 04/09/17 17:59 03/12/17 00:34 Magnesium Hydroxide (Mom) 30 ml DAILY ORAL 03/10/17 10:00 04/09/17 09:59 03/11/17 09:50 Multivitamins Therapeutic (Therapeutic Multivitamin) 1 ea DAILY ORAL 03/10/17 09:00 04/09/17 08:59 03/11/17 09:51 Pantoprazole (Protonix) 40 mg DAILY ORAL 03/10/17 09:00 04/09/17 08:59 03/11/17 09:51 Piperacillin Sod/ Tazobactam Sod 3.375 gm/Dextrose 110 ml @ 27.5 mls/hr Q8H IVPB 03/10/17 12:00 03/17/17 11:59 03/11/17 04:42 Ranitidine HCl (Zantac) 150 mg BEDTIME ORAL 03/10/17 21:00 04/09/17 20:59 03/11/17 21:58 Sodium Phosphate (Fleet's Sodium Phosl Enema) 133 ml DAILYPRN PRN RECTAL IF DULCOLAX INEFFECTIVE 03/10/17 09:00 04/09/17 08:59 Vancomycin HCl (Vanco rx to dose) 1 ea DAILY PRN MISC Per rx protocol 03/10/17 09:00 04/09/17 08:59 Vancomycin HCl 1 gm/Dextrose 275 ml @ 183.708 mls/hr Q12H IVPB 03/10/17 22:00 03/15/17 21:59 03/11/17 09:52 Height (Feet): 5 Height (Inches): 8.00 Weight (Pounds): 200 Objective exam stable CHIP BURKETT Mar 12, 2017 08:16
[2017-03-12 08:33] VITALS: BP 114/77
[2017-03-12] MEDS: Bisacodyl EC 5mg tab ORAL SCH (09:30)
[2017-03-12] MEDS: Multivitamin w/Minerals tab ORAL SCH (09:30)
[2017-03-12] MEDS: Docusate 100mg cap ORAL SCH ×2 (09:30→17:08)
[2017-03-12] MEDS: Milk of Magnesia 30ml Ud ORAL SCH (09:30)
[2017-03-12] MEDS: Vancomycin 1gm/D5W 275ml IVPB SCH ×2 (10:00)
--- NOTE | 2017-03-12 12:27 | Infectious Diseases Prog Note ---
Assessment/Plan Assessment/Plan antibiotics : vancomycin iv, zosyn A 1. gram negative sepsis 2. proteus UTI 3. leucocytosis improving 4. scrotal ulcer 5. nephrolithiasis P 1. continue zosyn 2. d/c iv vancomycin 3. will follow up cultures Subjective ROS Limited/Unobtainable: Yes Allergies: Coded Allergies: CIPROFLOXACIN (Verified Allergy, Unknown, 08/23/15) Objective Vital Signs Last 24 Hour Vital Signs Date Time Temp Pulse Resp B/P (MAP) Pulse Ox O2 Delivery O2 Flow Rate FiO2 03/12/17 11:33 Room Air 21 03/12/17 11:31 Room Air 03/12/17 08:33 97.7 87 20 114/77 95 03/12/17 07:15 78 20 99 Room Air 21 03/12/17 07:12 76 18 98 Room Air 21 03/12/17 04:00 102 03/12/17 04:00 94 18 124/85 Room Air 03/12/17 03:26 Room Air 03/12/17 03:26 Room Air 03/12/17 00:00 97.9 101 20 117/78 98 Room Air 03/12/17 00:00 100 03/11/17 23:20 Room Air 03/11/17 23:19 Room Air 03/11/17 20:02 100 20 130/82 97 Room Air 03/11/17 20:00 104 03/11/17 19:10 Room Air 03/11/17 19:10 86 18 96 Room Air 21 03/11/17 16:23 97.5 94 20 99/77 96 03/11/17 16:00 97 03/11/17 15:07 Room Air 03/11/17 15:03 90 18 94 Room Air 21 Height (Feet): 5 Height (Inches): 8.00 Weight (Pounds): 200 Respiratory/Chest: lungs clear Cardiovascular: normal rate, regular rhythm, no gallop/murmur Abdomen: soft, non tender, other - GT, SPC, scrotal ulcer Extremities: no edema, other - right arm PICC Microbiology Date/Time Source Procedure Growth Status 03/10/17 06:12 Blood Blood Culture - Preliminary Gram Negative Bacillus 1 Resulted 03/10/17 06:04 Blood Blood Culture - Preliminary Gram Negative Bacillus 1 Resulted 03/10/17 06:04 Indwelling Cath Urine Culture - Final Proteus Mirabilis Complete SMITH,SHAKUNTALA Mar 12, 2017 12:27
--- NOTE | 2017-03-12 12:39 | Wound Care Consultation ---
Wound Assessment Wound Assessment #1: Wound Number: 1 Wound Present on Admission: Yes New Wound: No Status Change of Wound: No Wound Location Body Site: perineal area Wound Type: lesion-etiology unknown Leroy Test: Does not Leroy Wound Thickness: Partial Thickness Wound Length: 2.5 Wound Width: 2.5 Wound Depth: less than 0.1 Percent of Wound [place]/Red: 100 Wound Drainage Description: Serosanguineous Wound Drainage Amount: Scant Wound Drainage Odor: None/Absent Tissue Surrounding Wound: Erythemic Wound General Appearance: Reddened, Draining Wound Assessment #2: Wound Number: 2 Wound Present on Admission: Yes New Wound: No Status Change of Wound: No Wound Location Body Site Modif: mid Wound Location Body Site: abdomen Wound Type: lesion-etiology unknown Leroy Test: Does not Leroy Wound Thickness: Full Thickness Wound Length: 2.0 Wound Width: 3.0 Wound Depth: 0.1 Percent of Wound [place]/Red: 100 Wound Drainage Description: Serosanguineous Wound Drainage Amount: Scant Wound Drainage Odor: None/Absent Tissue Surrounding Wound: Erythemic Wound General Appearance: Reddened, Draining Wound Comment #1 Perineal area lesion with partial thickness skin loss,etiology unknown #2 Open wound on abdominal area Recommendation -Local wound care per protocol -Keep clean and dry -Turn and reposition -Optimize nutrition -Low air loss SPR mattress -Offload both heels -Heel protector on both heels -Assess and f/u accordingly for any changes MARIS MEJIA RN Mar 12, 2017 12:39
[2017-03-12 12:44] VITALS: BP 122/82
--- NOTE | 2017-03-12 12:53 | Diagnostic Imaging Report ---
Indications: Needs long-term IV access Technique: Procedural timeout performed. Ultrasound confirms patent compressible right great vein. Total sterile technique, including sterile probe cover and sterile gel, hat, mask,, sterile gown, large sterile drape, and preparation with 2% chlorhexidine utilized. Local anesthesia with 1% lidocaine. Under real-time ultrasound guidance, puncture right vein using 21-gauge needle, documented and archived, passage 0.018 guidewire under direct fluoroscopy, which was used to determine appropriate catheter length, exchange for 5 [place] peel-away sheath. 5 [place] Bard dual-lumen power PICC cut to 38 cm. It was inserted through the peel-away sheath. Peel-away sheath and guidewire removed. Catheter fixed to the skin. Both catheter ports aspirated and flushed. Patient tolerated procedure well, without immediate complication. Digital radiograph documents satisfactory catheter tip position, at the cavoatrial junction. Total fluoroscopy time 0.3 minutes. Total dose area product 25 dGycm2 Impression: Successful placement of right arm PICC under sonographic and fluoroscopic guidance, as described above.
[2017-03-12] MEDS: Piperacillin/Tazobactam 3.375 GM in D5W 55 ML IVPB SCH ×2 (13:50→22:17)
[2017-03-12 13:54] LABS: BASOPHILS % (AUTO) 0.9 % (0.0-2.0); EOSINOPHILS % (AUTO) 2.3 % (0.0-3.0); LYMPHOCYTES % (AUTO) 22.5 % (20.0-45.0); MEAN CORPUSCULAR HEMOGLOBIN 29.6 PG (27.0-31.0); MEAN CORPUSCULAR HGB CONC 31.9 G/DL (32.0-36.0); MEAN CORPUSCULAR VOLUME 93 FL (80-99); MEAN PLATELET VOLUME 10.9 FL (6.5-10.1); MONOCYTES % (AUTO) 7.7 % (1.0-10.0); NEUTROPHILS % (AUTO) 66.6 % (45.0-75.0); PLATELET COUNT 122 K/UL (150-450); RED BLOOD COUNT 4.18 M/UL (4.70-6.10); WHITE BLOOD COUNT 8.1 K/UL (4.8-10.8)
[2017-03-12 14:15] LABS: ALANINE AMINOTRANSFERASE 21 U/L (12-78); ALBUMIN/GLOBULIN RATIO 0.5 (1.0-2.7); ANION GAP 6 mmol/L (5-15); ASPARTATE AMINO TRANSFERASE 16 U/L (15-37); CALCIUM 8.5 MG/DL (8.5-10.1); CARBON DIOXIDE 27 MMOL/L (21-32); CHLORIDE 109 MMOL/L (98-107); CREATININE 0.8 MG/DL (0.55-1.30); GLOMERULAR FILTRATION RATE > 60 mL/min (>60); POTASSIUM 3.5 MMOL/L (3.5-5.1); SODIUM 142 MMOL/L (136-145); TOTAL PROTEIN 7.7 G/DL (6.4-8.2)
[2017-03-12 16:19] VITALS: BP 109/86
[2017-03-12] MEDS: Dyna-Hex 2% Top Sol 2oz TOPIC SCH (22:18)
[2017-03-13] VITALS: BP 114/74
[2017-03-13] MEDS: Albuterol 90mcg Inhaler 8gm INH SCH ×4 (03:00→15:00)
[2017-03-13 04:00] VITALS: BP 137/86
[2017-03-13] MEDS: Piperacillin/Tazobactam 3.375 GM in D5W 55 ML IVPB SCH ×2 (05:19→13:41)
[2017-03-13 06:02] LABS: ALANINE AMINOTRANSFERASE 16 U/L (12-78); ALBUMIN/GLOBULIN RATIO 0.5 (1.0-2.7); ANION GAP 6 mmol/L (5-15); ASPARTATE AMINO TRANSFERASE 14 U/L (15-37); CALCIUM 7.9 MG/DL (8.5-10.1); CARBON DIOXIDE 28 MMOL/L (21-32); CHLORIDE 111 MMOL/L (98-107); GLOMERULAR FILTRATION RATE > 60 mL/min (>60); POTASSIUM 3.4 MMOL/L (3.5-5.1); SODIUM 145 MMOL/L (136-145); TOTAL PROTEIN 7.6 G/DL (6.4-8.2)
[2017-03-13] MEDS: NovoLOG Insulin Flexpen SUBQ SCH ×4 (06:22→18:00)
[2017-03-13] MEDS: D5 1/2NS w/KCL 10meq 1,000 ML IV SCH (06:24)
[2017-03-13 08:00] VITALS: BP 111/72
[2017-03-13] MEDS ORDERED: CEFTRIAXONE1 G2 IV (08:17)
--- NOTE | 2017-03-13 08:55 | Urology Progress Note ---
Assessment/Plan Assessment/Plan 1. Urinary retention with chronic suprapubic tube. 2. Probable neurogenic bladder. 3. Hematuria. 4. Pyuria and colonization. 5. Mild acute kidney injury. 6. Renal cyst. 7. 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 abx as ordred local wound care irrigate sp tube PRN Subjective Allergies: Coded Allergies: CIPROFLOXACIN (Verified Allergy, Unknown, 08/23/15) Subjective all noted Objective Last 24 Hour Vital Signs Date Time Temp Pulse Resp B/P (MAP) Pulse Ox O2 Delivery O2 Flow Rate FiO2 03/13/17 08:00 97.5 82 21 111/72 96 Room Air 03/13/17 06:55 Room Air 03/13/17 06:50 85 18 94 Room Air 21 03/13/17 04:00 97.7 93 24 137/86 97 Room Air 03/13/17 03:41 Room Air 03/13/17 03:41 Room Air 03/13/17 00:00 97.6 94 20 114/74 98 Room Air 03/13/17 00:00 94 03/12/17 23:54 21 03/12/17 23:54 21 03/12/17 20:03 Room Air 21 03/12/17 20:03 Room Air 21 03/12/17 16:19 97.2 88 20 109/86 97 03/12/17 16:00 103 03/12/17 15:13 Room Air 21 03/12/17 15:13 Room Air 03/12/17 12:44 97.0 88 20 122/82 97 03/12/17 12:00 94 03/12/17 11:33 Room Air 03/12/17 11:31 Room Air Laboratory Tests 03/12/17 13:30: White Blood Count 8.1, Red Blood Count 4.18L, Hemoglobin 12.4L, Hematocrit 38.9L , Mean Corpuscular Volume 93, Mean Corpuscular Hemoglobin 29.6, Mean Corpuscular Hemoglobin Concent 31.9L, Red Cell Distribution Width 14.0, Platelet Count 122L, Mean Platelet Volume 10.9H, Neutrophils (%) (Auto) 66.6, Lymphocytes (%) (Auto) 22.5, Monocytes (%) (Auto) 7.7, Eosinophils (%) (Auto) 2.3, Basophils (%) (Auto) 0.9, Sodium Level 142, Potassium Level 3.5, Chloride Level 109H, Carbon Dioxide Level 27, Anion Gap 6, Blood Urea Nitrogen 14, Creatinine 0.8, Estimat Glomerular Filtration Rate > 60, Glucose Level 86, Calcium Level 8.5, Total Bilirubin 0.4, Aspartate Amino Transf (AST/SGOT) 16, Alanine Aminotransferase (ALT/SGPT) 21, Alkaline Phosphatase 67, Total Protein 7.7, Albumin 2.5L, Globulin 5.2, Albumin/Globulin Ratio 0.5L 03/13/17 05:15: Sodium Level 145, Potassium Level 3.4L, Chloride Level 111H, Carbon Dioxide Level 28, Anion Gap 6, Blood Urea Nitrogen 11, Creatinine 1.0, Estimat Glomerular Filtration Rate > 60, Glucose Level 130H, Calcium Level 7.9L, Total Bilirubin 0.3, Aspartate Amino Transf (AST/SGOT) 14L, Alanine Aminotransferase ( ALT/SGPT) 16, Alkaline Phosphatase 63, Total Protein 7.6, Albumin 2.4L, Globulin 5.2, Albumin/Globulin Ratio 0.5L Height (Feet): 5 Height (Inches): 8.00 Weight (Pounds): 200 Objective exam stable CHIP BURKETT Mar 13, 2017 08:55
[2017-03-13] MEDS ORDERED: KCl 10% 20 mEq/15ml liquid NG ONE (09:00)
[2017-03-13] MEDS: Bisacodyl EC 5mg tab ORAL SCH (09:15)
[2017-03-13] MEDS: Milk of Magnesia 30ml Ud ORAL SCH (09:15)
[2017-03-13] MEDS: Docusate 100mg/10ml Liq NG SCH ×2 (09:15→18:00)
[2017-03-13] MEDS: Multivitamin w/Minerals tab ORAL SCH (09:15)
--- NOTE | 2017-03-13 10:40 | Infectious Diseases Prog Note ---
Assessment/Plan Assessment/Plan antibiotics : zosyn A 1. proteus sepsis secondary to UTI 2. proteus UTI 3. leucocytosis improving 4. scrotal ulcer 5. nephrolithiasis P 1. d/c zosyn 2. start iv ceftriaxone 3. will follow up cultures Subjective ROS Limited/Unobtainable: Yes Allergies: Coded Allergies: CIPROFLOXACIN (Verified Allergy, Unknown, 08/23/15) Objective Vital Signs Last 24 Hour Vital Signs Date Time Temp Pulse Resp B/P (MAP) Pulse Ox O2 Delivery O2 Flow Rate FiO2 03/13/17 08:00 97.5 82 21 111/72 96 Room Air 03/13/17 06:55 Room Air 21 03/13/17 06:50 85 18 94 Room Air 21 03/13/17 04:00 97.7 93 24 137/86 97 Room Air 03/13/17 03:41 Room Air 03/13/17 03:41 Room Air 21 03/13/17 00:00 97.6 94 20 114/74 98 Room Air 03/13/17 00:00 94 03/12/17 23:54 21 03/12/17 23:54 21 03/12/17 20:03 Room Air 21 03/12/17 20:03 Room Air 21 03/12/17 16:19 97.2 88 20 109/86 97 03/12/17 16:00 103 03/12/17 15:13 Room Air 21 03/12/17 15:13 Room Air 03/12/17 12:44 97.0 88 20 122/82 97 03/12/17 12:00 94 03/12/17 11:33 Room Air 21 03/12/17 11:31 Room Air Height (Feet): 5 Height (Inches): 8.00 Weight (Pounds): 200 Respiratory/Chest: lungs clear Cardiovascular: normal rate, regular rhythm, no gallop/murmur Abdomen: soft, non tender, other - GT, SPC Extremities: no edema, other - right arm PICC Laboratory Tests Test 03/12/17 13:30 03/13/17 05:15 White Blood Count 8.1 K/UL (4.8-10.8) Red Blood Count 4.18 M/UL (4.70-6.10) L Hemoglobin 12.4 G/DL (14.2-18.0) L Hematocrit 38.9 % (42.0-52.0) L Mean Corpuscular Volume 93 FL (80-99) Mean Corpuscular Hemoglobin 29.6 PG (27.0-31.0) Mean Corpuscular Hemoglobin Concent 31.9 G/DL (32.0-36.0) L Red Cell Distribution Width 14.0 % (11.6-14.8) Platelet Count 122 K/UL (150-450) L Mean Platelet Volume 10.9 FL (6.5-10.1) H Neutrophils (%) (Auto) 66.6 % (45.0-75.0) Lymphocytes (%) (Auto) 22.5 % (20.0-45.0) Monocytes (%) (Auto) 7.7 % (1.0-10.0) Eosinophils (%) (Auto) 2.3 % (0.0-3.0) Basophils (%) (Auto) 0.9 % (0.0-2.0) Sodium Level 142 MMOL/L (136-145) 145 MMOL/L (136-145) Potassium Level 3.5 MMOL/L (3.5-5.1) 3.4 MMOL/L (3.5-5.1) L Chloride Level 109 MMOL/L (98-107) H 111 MMOL/L (98-107) H Carbon Dioxide Level 27 MMOL/L (21-32) 28 MMOL/L (21-32) Anion Gap 6 mmol/L (5-15) 6 mmol/L (5-15) Blood Urea Nitrogen 14 mg/dL (7-18) 11 mg/dL (7-18) Creatinine 0.8 MG/DL (0.55-1.30) 1.0 MG/DL (0.55-1.30) Estimat Glomerular Filtration Rate > 60 mL/min (>60) > 60 mL/min (>60) Glucose Level 86 MG/DL (74-106) 130 MG/DL (74-106) H Calcium Level 8.5 MG/DL (8.5-10.1) 7.9 MG/DL (8.5-10.1) L Total Bilirubin 0.4 MG/DL (0.2-1.0) 0.3 MG/DL (0.2-1.0) Aspartate Amino Transf (AST/SGOT) 16 U/L (15-37) 14 U/L (15-37) L Alanine Aminotransferase (ALT/SGPT) 21 U/L (12-78) 16 U/L (12-78) Alkaline Phosphatase 67 U/L (46-116) 63 U/L (46-116) Total Protein 7.7 G/DL (6.4-8.2) 7.6 G/DL (6.4-8.2) Albumin 2.5 G/DL (3.4-5.0) L 2.4 G/DL (3.4-5.0) L Globulin 5.2 g/dL 5.2 g/dL Albumin/Globulin Ratio 0.5 (1.0-2.7) L 0.5 (1.0-2.7) L LYNETTE MTZ Mar 13, 2017 10:40
[2017-03-13 12:00] VITALS: BP 119/65
[2017-03-13 16:00] VITALS: BP 129/92
[2017-03-13] MEDS ORDERED: cefTRIAXone 1gm/D5W 55ml IVPB SCH ×2 (16:00)
[2017-03-13] MEDS ORDERED: CEPHALEXIN250 MG ORAL (16:34)
[2017-03-13] MEDS ORDERED: Sterile Water Irrig 1000ml IRRIG ONE (19:19)
--- NOTE | 2017-03-13 21:32 | Discharge Summary ---
DATE OF ADMISSION: 03/10/2017 DATE OF DISCHARGE: 03/13/2017 ADMISSION DIAGNOSES: 1. Sepsis. 2. Obstructed suprapubic catheter, status post exchange. 3. History of chronic scrotal wound. 4. History of stroke. 5. Hypertension. DISCHARGE DIAGNOSES: 1. Sepsis. 2. Obstructed suprapubic catheter, status post exchange. 3. History of chronic scrotal wound. 4. History of stroke. 5. Hypertension. HOSPITAL COURSE: The patient is unfortunate male with history of stroke and encephalopathy, admitted with complaints of sepsis. He was noted to have obstructive suprapubic catheter. He had a wound on the scrotum that appeared chronic, received broad-spectrum IV antibiotic therapy and positive blood cultures. PICC line was placed because of poor access. The patient was seen by the Urology and felt likely the wound was chronic. There was no gross infection of the scrotum. His CAT scan showed no evidence of Elizabeth's. The patient will be discharged to complete 14 days of IV antibiotic therapy. He should follow up with his regular urologist. He should continue with local wound care. Continue NG tube feeds. Xarelto can be resumed, but the patient should be monitored closely for any bleeding. DISCHARGE MEDICATIONS: Please see discharge medication list for discharge medications. DIET: G-tube feeding. ACTIVITIES: Ad-odell. FOLLOWUP: The patient to follow up by his PMD in one to two days at longterm facility. Gabo Smith M.D. DR: Juan Diego JOB#: [id number] CC:
[2017-03-14] MEDS ORDERED: Milk of Magnesia 30ml Ud GT SCH (09:00)
[2017-03-14 10:04] LABS: OTHERS PATHOLOGIST COMMENT
== END 2017-03-13 19:20 | DRG 720 ==
LOC: EDBD 05:18 → EMR 05:51 → EDBEDREQ 08:03 → 2E 08:25
PROC: 02HV33Z Insertion of Infusion Device into Superior Vena Cava, Percutaneous Approach (ICD-10-PCS; principal; 2017-03-12)
DX: A41.50 Gram-negative sepsis, unspecified (principal); G93.49 Other encephalopathy; N17.9 Acute kidney failure, unspecified; R53.2 Functional quadriplegia; N39.0 Urinary tract infection, site not specified; N31.9 Neuromuscular dysfunction of bladder, unspecified; R31.0 Gross hematuria; E11.9 Type 2 diabetes mellitus without complications; Z79.4 Long term (current) use of insulin; T83.090A Other mechanical complication of cystostomy catheter, initial encounter; Y83.3 Surgical operation with formation of external stoma as the cause of abnormal reaction of the patient, or of later complication, without mention of misadventure at the time of the procedure; N50.89 Other specified disorders of the male genital organs; Z86.73 Personal history of transient ischemic attack (TIA), and cerebral infarction without residual deficits; I10 Essential (primary) hypertension; R33.9 Retention of urine, unspecified; N28.1 Cyst of kidney, acquired; Z88.1 Allergy status to other antibiotic agents; Z89.012 Acquired absence of left thumb; N20.0 Calculus of kidney; Z43.1 Encounter for attention to gastrostomy; N49.2 Inflammatory disorders of scrotum
CPT/HCPCS: 36415; 36569; 71010; 74176; 76937; 80053; 81003; 82550; 82553; 82962; 83605; 84484; 85007; 85025; 85610; 85730; 86850; 86900; 86901; 87040; 87086; 87181; 93005; 94640; 99291; J1815

== ENCOUNTER 2017-04-26 19:05 | Emergency (ER) | payer MEDICAID ==
[~2017-04-26] VITALS: Ht 172.7 cm; Wt 97.5 kg
[~2017-04-26 19:05] MED LIST changes: -BISACODYL5 MG ORAL; +BISACODYL5 MG RECTAL; +CEFTRIAXONE1 G2 IV; +CEPHALEXIN250 MG ORAL; +DOCUSATE SODIU100 MG GT; -DOCUSATE SODIU100 MG ORAL; +MILK OF MA400 MG/51 GT; -MILK OF MA400 MG/51 ORAL; +MULTIVITAMINS1 EAC8 GT; -MULTIVITAMINS1 EAC8 ORAL; +TYLENOL325 MG GT; -TYLENOL325 MG ORAL
[2017-04-26 21:00] VITALS: BP 157/97
--- NOTE | 2017-04-26 22:55 | Emergency Room Report ---
History of Present Illness General Chief Complaint: General Complaint Source: Medical Record Present Illness HPI 56-year-old male presents ED for evaluation. Patient is here for suprapubic catheter replacement. [facility] nursing staff at [facility] suprapubic catheter was initially not flushing well and they replaced it. However urine appears to be flowing from the ostomy site. Patient is nonverbal at baseline. Showing no signs of distress. No fevers or chills. No nausea or vomiting. No other aggravating relieving factors. No other specific symptoms Allergies: Coded Allergies: CIPROFLOXACIN (Verified Allergy, Unknown, 08/23/15) Patient History Past Medical History: DM Past Surgical History: none Pertinent Family History: none Social History: Denies: smoking, alcohol use, drug use Immunizations: UTD Reviewed Nursing Documentation: PMH: Agreed, PSxH: Agreed Nursing Documentation-PMH Hx Diabetes: Yes - dm type 2, hypokalemia Hx Paralysis: Yes - paraplegic Hx Speech Problem: Yes Hx Aphasia: Yes Review of Systems All Other Systems: limited Physical Exam Vital Signs Date Time Temp Pulse Resp B/P (MAP) Pulse Ox O2 Delivery O2 Flow Rate FiO2 04/26/17 18:46 97.5 88 18 140/100 98 Room Air Sp02 EP Interpretation: reviewed, normal General Appearance: no apparent distress Head: normocephalic Eyes: bilateral eye normal inspection, bilateral eye PERRL ENT: normal ENT inspection Neck: normal inspection Respiratory: chest non-tender, lungs clear, normal breath sounds, speaking full sentences Cardiovascular #1: regular rate, rhythm, no edema Gastrointestinal: normal bowel sounds, non tender, soft, non-distended, no guarding, no rebound, other - ostomy site C/D/I Rectal: deferred Genitourinary: no CVA tenderness Musculoskeletal: normal inspection Neurologic: other - nonverbal Psychiatric: other - nonverbal Skin: normal inspection Lymphatic: normal inspection Procedures Additional Procedure Procedure Narrative suprapubic catheter replacement Patient placed on stretcher. Old villagran is removed by deflating the balloon using syringe. ostomy site is inspected with no contraindications to suprapubic catheter placement. suprapubic catheter slowly inserted until resistance is met; balloon is slowly filled with 30 mL of normal saline and slowly retracted back until resistance is met. urine flow is noted. patient tolerated procedure without difficulty Medical Decision Making Diagnostic Impression: Primary Impression: Suprapubic catheter dysfunction Qualified Codes: T83.010A - Breakdown (mechanical) of cystostomy catheter, initial encounter ER Course Hospital Course 56-year-old male presents to ED for suprapubic catheter replacement Clinical course Patient placed on stretcher. After initial history and physical I replaced suprapubic catheter. urine is noted in the bag. Patient tolerated her procedure without complication Diagnosis - suprapubic catheter dysfunction Stable and discharged SNF with suprapubic catheter and bag. Instructed to followup with PMD/urologist. Return to ED if symptoms recur or worsen Last Vital Signs Date Time Temp Pulse Resp B/P (MAP) Pulse Ox O2 Delivery O2 Flow Rate FiO2 04/26/17 21:00 97.5 80 20 157/97 94 Room Air Status: improved Disposition: XFER SNF Condition: Stable Patient Instructions: Suprapubic Catheter Replacement, Care After SUJIT PAULINO M.D. Apr 26, 2017 22:55
[2017-04-26 23:08] VITALS: BP 109/90
[2017-04-27 00:06] VITALS: BP 127/77
[2017-04-27 00:09] VITALS: BP 127/77
== END 2017-04-27 00:09 ==
LOC: EDBD 19:05 → EMR 19:10
DX: T83.010A Breakdown (mechanical) of cystostomy catheter, initial encounter (principal); T83.098A Other mechanical complication of other urinary catheter, initial encounter; Y92.129 Unspecified place in nursing home as the place of occurrence of the external cause; G82.20 Paraplegia, unspecified; R47.01 Aphasia; E11.9 Type 2 diabetes mellitus without complications
CPT/HCPCS: 51702; 99284

== ENCOUNTER 2017-06-04 14:34 | Inpatient (IN) | payer MEDICAID ==
[~2017-06-04] VITALS: Ht 167.6 cm; Wt 99.8 kg
[2017-06-04] MEDS ORDERED: Sodium Chloride 500ML 500 ML IV ONE (14:58)
[2017-06-04 15:00] VITALS: BP 116/90
[2017-06-04 16:17] LABS: HEMATOCRIT 42.6 % (42.0-52.0); HEMOGLOBIN 14.2 G/DL (14.2-18.0); MEAN CORPUSCULAR VOLUME 90 FL (80-99); PLATELET COUNT 226 K/UL (150-450); RED BLOOD COUNT 4.74 M/UL (4.70-6.10); RED CELL DISTRIBUTION WIDTH 13.4 % (11.6-14.8); WHITE BLOOD COUNT 20.6 K/UL (4.8-10.8)
[2017-06-04 16:18] LABS: BILIRUBIN, URINE NEGATIVE (NEGATIVE); GLUCOSE, URINE (UA) NEGATIVE (NEGATIVE); KETONES,URINE NEGATIVE (NEGATIVE); LEUKOCYTE ESTERASE ,URINE 2+ (NEGATIVE); NITRITE,URINE NEGATIVE (NEGATIVE); PH,URINE 9 (4.5-8.0); PROTEIN,URINE 3+ (NEGATIVE); UROBILINOGEN,URINE NORMAL MG/DL (0.0-1.0)
[2017-06-04 16:22] LABS: APPEARANCE,URINE SLIGHTLY CLOUDY; COLOR,URINE YELLOW
[2017-06-04 16:29] LABS: ANION GAP 6 mmol/L (5-15); BLOOD UREA NITROGEN 28 mg/dL (7-18); CALCIUM 9.8 MG/DL (8.5-10.1); CARBON DIOXIDE 30 MMOL/L (21-32); CHLORIDE 103 MMOL/L (98-107); CREATININE 1.1 MG/DL (0.55-1.30); POTASSIUM 4.1 MMOL/L (3.5-5.1); SODIUM 139 MMOL/L (136-145)
[2017-06-04 16:44] LABS: ALANINE AMINOTRANSFERASE 19 U/L (12-78); ALBUMIN/GLOBULIN RATIO 0.5 (1.0-2.7); ALKALINE PHOSPHATASE 66 U/L (46-116); ASPARTATE AMINO TRANSFERASE 15 U/L (15-37); BILIRUBIN,TOTAL 0.5 MG/DL (0.2-1.0); CKMB 0.5 NG/ML (0.0-3.6); CREATINE KINASE 67 U/L (26-308)
[2017-06-04 16:45] LABS: INR 1.1 (0.9-1.1)
[2017-06-04] MEDS ORDERED: cefTRIAXone 1 GM in NS 55 ML IVPB ONE (16:45)
[2017-06-04] MEDS ORDERED: Nitroglycerin Subl 0.4mg tab SL PRN (17:15)
[2017-06-04] MEDS ORDERED: Morphine Sulfate 2mg/ml Inj IVP PRN (17:15)
[2017-06-04] MEDS ORDERED: Mylanta II UD 30ml ORAL PRN (17:15)
[2017-06-04] MEDS ORDERED: Miralax 17gm pkt ORAL PRN (17:15)
--- NOTE | 2017-06-04 17:38 | Emergency Room Report ---
History of Present Illness General Chief Complaint: Nausea Source: Patient, Medical Record Present Illness HPI 57-year-old male presents ED for evaluation. Patient presenting from retirement with one episode of coffee-ground emesis today. Currently patient showing no signs of distress. Patient is encephalopathic at baseline and unable to provide any additional history. No vomiting per EMS. No other aggravating relieving factors. No other associated symptoms Allergies: Coded Allergies: CIPROFLOXACIN (Verified Allergy, Unknown, 08/23/15) Patient History Past Medical History: DM Past Surgical History: none Pertinent Family History: none Social History: Denies: smoking, alcohol use, drug use Immunizations: UTD Reviewed Nursing Documentation: PMH: Agreed, PSxH: Agreed Nursing Documentation-PMH Hx Diabetes: Yes - dm type 2, hypokalemia Hx Paralysis: Yes - paraplegic Hx Speech Problem: Yes Hx Aphasia: Yes Review of Systems All Other Systems: negative except mentioned in HPI Physical Exam Vital Signs Date Time Temp Pulse Resp B/P (MAP) Pulse Ox O2 Delivery O2 Flow Rate FiO2 06/04/17 14:36 98.4 118 18 116/90 95 98.4 Sp02 EP Interpretation: reviewed, normal General Appearance: no apparent distress, alert, GCS 15, non-toxic Head: normocephalic Eyes: bilateral eye normal inspection, bilateral eye PERRL ENT: normal ENT inspection Neck: normal inspection Respiratory: chest non-tender, lungs clear, normal breath sounds, speaking full sentences Cardiovascular #1: regular rate, rhythm, no edema Gastrointestinal: normal bowel sounds, non tender, soft, non-distended, no guarding, no rebound, other - suprapubic catheter Rectal: deferred Genitourinary: no CVA tenderness Musculoskeletal: normal inspection Neurologic: other - nonverbal Psychiatric: other - nonverbal Skin: normal inspection Lymphatic: normal inspection Medical Decision Making Diagnostic Impression: Primary Impression: UGIB (upper gastrointestinal bleed) Additional Impression: UTI (urinary tract infection) Qualified Codes: N39.0 - Urinary tract infection, site not specified ER Course Hospital Course 57-year-old male presents with coffee-ground emesis Differential diagnoses include: UGIB, LGIB, hemorrhoids Clinical course Patient placed on stretcher. pvc monitor. After initial history and physical I ordered labs, IV fluids, UA, protonix, zofran Labs - noted leukocytosis, Hb/Hct stable. electrolytes ok, UA + bacteria Rocephin given Case discussed with Dr. Smith; he asked that we admit to Dr Bryant spoke with Dr Bryant and he agreed to accept the patient to his service for further care and support I feel this is a highly complex case requiring extensive working including EKG/ Rhythm strip, Xray/CT/US, Blood/urine lab work, repeat exams while in ED, and administration of strong opiates/narcotics for pain control, admission to hospital or close patient follow up. Diagnosis - UGIB, UTI Patient admitted to telemetry in serious condition Labs Test 06/04/17 15:45 White Blood Count 20.6 K/UL (4.8-10.8) Red Blood Count 4.74 M/UL (4.70-6.10) Hemoglobin 14.2 G/DL (14.2-18.0) Hematocrit 42.6 % (42.0-52.0) Mean Corpuscular Volume 90 FL (80-99) Mean Corpuscular Hemoglobin 30.0 PG (27.0-31.0) Mean Corpuscular Hemoglobin Concent 33.4 G/DL (32.0-36.0) Red Cell Distribution Width 13.4 % (11.6-14.8) Platelet Count 226 K/UL (150-450) Mean Platelet Volume 9.5 FL (6.5-10.1) Neutrophils (%) (Auto) % (45.0-75.0) Lymphocytes (%) (Auto) % (20.0-45.0) Monocytes (%) (Auto) % (1.0-10.0) Eosinophils (%) (Auto) % (0.0-3.0) Basophils (%) (Auto) % (0.0-2.0) Differential Total Cells Counted 100 Neutrophils % (Manual) 76 % (45-75) Lymphocytes % (Manual) 16 % (20-45) Monocytes % (Manual) 5 % (1-10) Eosinophils % (Manual) 0 % (0-3) Basophils % (Manual) 0 % (0-2) Band Neutrophils 3 % (0-8) Platelet Estimate Adequate Platelet Morphology Normal Red Blood Cell Morphology Normal Prothrombin Time 11.4 SEC (9.30-11.50) Prothromb Time International Ratio 1.1 (0.9-1.1) Activated Partial Thromboplast Time 32 SEC (23-33) Urine Color Yellow Urine Appearance Slightly cloudy Urine pH 9 (4.5-8.0) Urine Specific [place] 1.015 (1.005-1.035) Urine Protein 3+ (NEGATIVE) Urine Glucose (UA) Negative (NEGATIVE) Urine Ketones Negative (NEGATIVE) Urine Occult Blood 4+ (NEGATIVE) Urine Nitrite Negative (NEGATIVE) Urine Bilirubin Negative (NEGATIVE) Urine Urobilinogen Normal MG/DL (0.0-1.0) Urine Leukocyte Esterase 2+ (NEGATIVE) Urine RBC 10-15 /HPF (0 - 0) Urine WBC 5-10 /HPF (0 - 0) Urine Squamous Epithelial Cells None /LPF (NONE/OCC) Urine Uric Acid Crystals Few /LPF (NONE) Urine Amorphous Sediment Few /LPF (NONE) Urine Bacteria Many /HPF (NONE) Sodium Level 139 MMOL/L (136-145) Potassium Level 4.1 MMOL/L (3.5-5.1) Chloride Level 103 MMOL/L (98-107) Carbon Dioxide Level 30 MMOL/L (21-32) Anion Gap 6 mmol/L (5-15) Blood Urea Nitrogen 28 mg/dL (7-18) Creatinine 1.1 MG/DL (0.55-1.30) Estimat Glomerular Filtration Rate > 60 mL/min (>60) Glucose Level 124 MG/DL (74-106) Calcium Level 9.8 MG/DL (8.5-10.1) Total Bilirubin 0.5 MG/DL (0.2-1.0) Aspartate Amino Transf (AST/SGOT) 15 U/L (15-37) Alanine Aminotransferase (ALT/SGPT) 19 U/L (12-78) Alkaline Phosphatase 66 U/L (46-116) Total Creatine Kinase 67 U/L (26-308) Creatine Kinase MB 0.5 NG/ML (0.0-3.6) Creatine Kinase MB Relative Index 0.7 Troponin I 0.000 ng/mL (0.000-0.056) Total Protein 9.2 G/DL (6.4-8.2) Albumin 3.0 G/DL (3.4-5.0) Globulin 6.2 g/dL Albumin/Globulin Ratio 0.5 (1.0-2.7) Lipase 129 U/L (73-393) Last Vital Signs Date Time Temp Pulse Resp B/P (MAP) Pulse Ox O2 Delivery O2 Flow Rate FiO2 06/04/17 14:36 98.4 118 18 116/90 95 98.4 Status: improved Disposition: ADMITTED INPATIENT Condition: Serious Referrals: NON PHYSICIAN (PCP) SUJIT PAULINO M.D. Jun 04, 2017 17:37
[2017-06-04] MEDS ORDERED: Albuterol 90mcg Inhaler 8gm INH PRN (18:00)
[2017-06-04] MEDS: D5NS 1,000 ML IV SCH (19:39)
[2017-06-04 20:00] VITALS: BP 110/85
--- NOTE | 2017-06-04 21:10 | History and Physical ---
History of Present Illness General Date patient seen: Jun 04, 2017 Reason for Hospitalization: Nausea Present Illness HPI 57-year-old male with hx of CVA, aphasic, bed bound, PEG, suprapubic catheter, presented to ER for evaluation of one episode of coffee-ground emesis today. Currently patient showing no signs of distress. Patient is unable to provide any additional history. No vomiting per EMS. No other aggravating relieving factors. No other associated symptoms. Pt was notice to have suprapubic catheter. He is admitted to telemetry to telemetry for acute GI bleeding. Allergies: Coded Allergies: CIPROFLOXACIN (Verified Allergy, Unknown, 08/23/15) Medication History Scheduled Albuterol Sulfate (Ventolin Hfa), 1 PUFF INH EVERY 4 HOURS, (Reported) Bisacodyl* (Dulcolax*), 10 MG ORAL DAILY, (Reported) Cephalexin (Cephalexin), 500 MG ORAL QID, (Reported) Docusate Sodium* (Docusate Sodium*), 100 MG ORAL TWICE A DAY, (Reported) Famotidine (Pepcid), 20 MG GT DAILY, (Reported) Magnesium Hydroxide* (Milk Of Magnesia*), 30 ML ORAL DAILY, (Reported) Multivitamin With Minerals (Multivitamins With Minerals*), 1 TAB ORAL DAILY, ( Reported) Rivaroxaban (Xarelto), 15 MG GT BID Scheduled PRN Acetaminophen (Tylenol), 650 MG ORAL DAILY PRN for For Pain, (Reported) Miscellaneous Medications Bisacodyl (Dulcolax), 10 MG RC, (Reported) Na Phos,M-B/Na Phos,Di-Ba (Fleet Enema), 133 ML RC, (Reported) Patient History Healthcare decision maker N Resuscitation status Advanced Directive on File Past Medical/Surgical History Past Medical/Surgical History: (1) Feeding by G-tube (2) History of CVA (cerebrovascular accident) (3) Aphasia Review of Systems All Other Systems: negative except mentioned in HPI Physical Exam General Appearance: WD/WN Lines, tubes and drains: peripheral, gtube HEENT: normocephalic, atraumatic, mucous membranes moist Neck: non-tender, normal alignment Respiratory/Chest: chest wall non-tender, lungs clear Abdomen: normal bowel sounds Genitourinary/Rectal: normal rectal exam Extremities: normal range of motion Skin Exam: normal pigmentation 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 Last 24 Hour Vital Signs Date Time Temp Pulse Resp B/P (MAP) Pulse Ox O2 Delivery O2 Flow Rate FiO2 06/04/17 15:00 98.4 18 116/90 95 98.4 06/04/17 14:36 98.4 118 18 116/90 95 98.4 Laboratory Tests Test 06/04/17 15:45 White Blood Count 20.6 K/UL (4.8-10.8) H Red Blood Count 4.74 M/UL (4.70-6.10) Hemoglobin 14.2 G/DL (14.2-18.0) Hematocrit 42.6 % (42.0-52.0) Mean Corpuscular Volume 90 FL (80-99) Mean Corpuscular Hemoglobin 30.0 PG (27.0-31.0) Mean Corpuscular Hemoglobin Concent 33.4 G/DL (32.0-36.0) Red Cell Distribution Width 13.4 % (11.6-14.8) Platelet Count 226 K/UL (150-450) Mean Platelet Volume 9.5 FL (6.5-10.1) Neutrophils (%) (Auto) % (45.0-75.0) Lymphocytes (%) (Auto) % (20.0-45.0) Monocytes (%) (Auto) % (1.0-10.0) Eosinophils (%) (Auto) % (0.0-3.0) Basophils (%) (Auto) % (0.0-2.0) Differential Total Cells Counted 100 Neutrophils % (Manual) 76 % (45-75) H Lymphocytes % (Manual) 16 % (20-45) L Monocytes % (Manual) 5 % (1-10) Eosinophils % (Manual) 0 % (0-3) Basophils % (Manual) 0 % (0-2) Band Neutrophils 3 % (0-8) Platelet Estimate Adequate Platelet Morphology Normal Red Blood Cell Morphology Normal Prothrombin Time 11.4 SEC (9.30-11.50) Prothromb Time International Ratio 1.1 (0.9-1.1) Activated Partial Thromboplast Time 32 SEC (23-33) Urine Color Yellow Urine Appearance Slightly cloudy Urine pH 9 (4.5-8.0) Urine Specific [place] 1.015 (1.005-1.035) Urine Protein 3+ (NEGATIVE) H Urine Glucose (UA) Negative (NEGATIVE) Urine Ketones Negative (NEGATIVE) Urine Occult Blood 4+ (NEGATIVE) H Urine Nitrite Negative (NEGATIVE) Urine Bilirubin Negative (NEGATIVE) Urine Urobilinogen Normal MG/DL (0.0-1.0) Urine Leukocyte Esterase 2+ (NEGATIVE) H Urine RBC 10-15 /HPF (0 - 0) H Urine WBC 5-10 /HPF (0 - 0) H Urine Squamous Epithelial Cells None /LPF (NONE/OCC) Urine Uric Acid Crystals Few /LPF (NONE) H Urine Amorphous Sediment Few /LPF (NONE) H Urine Bacteria Many /HPF (NONE) H Sodium Level 139 MMOL/L (136-145) Potassium Level 4.1 MMOL/L (3.5-5.1) Chloride Level 103 MMOL/L (98-107) Carbon Dioxide Level 30 MMOL/L (21-32) Anion Gap 6 mmol/L (5-15) Blood Urea Nitrogen 28 mg/dL (7-18) H Creatinine 1.1 MG/DL (0.55-1.30) Estimat Glomerular Filtration Rate > 60 mL/min (>60) Glucose Level 124 MG/DL (74-106) H Calcium Level 9.8 MG/DL (8.5-10.1) Total Bilirubin 0.5 MG/DL (0.2-1.0) Aspartate Amino Transf (AST/SGOT) 15 U/L (15-37) Alanine Aminotransferase (ALT/SGPT) 19 U/L (12-78) Alkaline Phosphatase 66 U/L (46-116) Total Creatine Kinase 67 U/L (26-308) Creatine Kinase MB 0.5 NG/ML (0.0-3.6) Creatine Kinase MB Relative Index 0.7 Troponin I 0.000 ng/mL (0.000-0.056) Total Protein 9.2 G/DL (6.4-8.2) H Albumin 3.0 G/DL (3.4-5.0) L Globulin 6.2 g/dL Albumin/Globulin Ratio 0.5 (1.0-2.7) L Lipase 129 U/L (73-393) Height (Feet): 5 Height (Inches): 6.00 Weight (Pounds): 220 Medications Current Medications Medications (Trade) Dose Ordered Sig/Fab Route PRN Reason Start Time Stop Time Status Last Admin Dose Admin Acetaminophen (Tylenol) 650 mg DAILY PRN ORAL Mild Pain (Pain Scale 1-3) 06/04/17 17:15 07/04/17 17:14 Acetaminophen (Tylenol) 650 mg Q4H PRN ORAL fever (temp>100.5F) 06/04/17 17:15 07/04/17 17:14 Al Hydroxide/Mg Hydroxide (Mylanta II) 30 ml Q6H PRN ORAL dyspepsia 06/04/17 17:15 07/04/17 17:14 Albuterol Sulfate (Proventil MDI) 1 puff Q4H PRN INH Shortness of Breath 06/04/17 18:00 07/04/17 17:59 Dextrose (Dextrose 50%) STAT PRN IV Hypoglycemia 06/04/17 17:15 07/04/17 17:14 Dextrose/Sodium Chloride 1,000 ml @ 100 mls/hr Q10H IV 06/04/17 18:00 07/04/17 17:59 06/04/17 19:39 Diphenhydramine HCl (Benadryl) 25 mg Q6H PRN ORAL Itching/Pruritis 06/04/17 17:15 07/04/17 17:14 Morphine Sulfate (Morphine Sulfate) 2 mg Q4H PRN IVP severe Pain (Pain Scale 7-10) 06/04/17 17:15 06/11/17 17:14 Nitroglycerin (Ntg) 0.4 mg Q5M X 3 DOSES PRN SL Prn Chest Pain 06/04/17 17:15 07/04/17 17:14 Ondansetron HCl (Zofran) 4 mg Q6H PRN IVP Nausea & Vomiting 06/04/17 17:15 07/04/17 17:14 Polyethylene Glycol (Miralax) 17 gm HSPRN PRN ORAL Constipation 06/04/17 17:15 07/04/17 17:14 Temazepam (Restoril) 15 mg HSPRN PRN ORAL Insomnia 06/04/17 17:15 06/11/17 17:14 Assessment/Plan Problem List: (1) UGIB (upper gastrointestinal bleed) ICD Codes: K92.2 - Gastrointestinal hemorrhage, unspecified SNOMED: 34340883 (2) UTI (urinary tract infection) ICD Codes: N39.0 - Urinary tract infection, site not specified SNOMED: 96875236 Qualifiers: Qualified Codes: N39.0 - Urinary tract infection, site not specified (3) History of CVA (cerebrovascular accident) ICD Codes: Z86.73 - Personal history of transient ischemic attack (TIA), and cerebral infarction without residual deficits SNOMED: 103303086 (4) Feeding by G-tube ICD Codes: Z93.1 - Gastrostomy status SNOMED: 062516499, 449420847 (5) Aphasia ICD Codes: R47.01 - Aphasia SNOMED: 10055696 Assessment/Plan npo iv fluids GI evaluation check h/h, prbc prn avoid anticoagulants scd for dvt prophylaxis. LISETTE SCOTT Jun 04, 2017 20:57
[2017-06-05] VITALS: BP 118/74
--- NOTE | 2017-06-05 01:30 | Consultation ---
DATE OF CONSULTATION: 06/04/2017 HEMATOLOGY/ONCOLOGY CONSULTATION CONSULTING PHYSICIAN: Nathan Ludwig M.D. REQUESTING PHYSICIAN: Rigoberto Bryant M.D. REASON FOR CONSULTATION: Evaluation of GI bleed as well as anemia and leukocytosis. IDENTIFYING DATA: Dear Dr. Bryant, The patient is a pleasant 57-year-old male with past medical history significant for diabetes mellitus, at this time presents to the ER from long term facility with coffee-ground emesis, to be seen by GI Service. Currently, the patient is and unable to provide any further history. He does not have any history of malignancy. No history of anemia in the past per review of the record. The patient with a history of hyperkalemia only as well as paraplegia. Hematology and GI service consulted again. PAST MEDICAL HISTORY: Diabetes mellitus. PAST SURGICAL HISTORY: None noted. ALLERGIES: Cipro. FAMILY HISTORY: Noncontributory. SOCIAL HISTORY: No alcohol, tobacco, or illicit drug use. REVIEW OF SYSTEMS: CONSTITUTIONAL: No fevers, chills, or night sweats. SKIN: No rashes, bumps, or itching. HEENT: No headache, hearing or vision changes. BREASTS: No lumps, pain, or discharge. PULMONARY: No cough, sputum, or shortness of breath. GASTROINTESTINAL: Some coffee-ground emesis noted. GENITOURINARY: No dysuria, frequency, or urgency. MUSCULOSKELETAL: No joint swelling, muscle pain, or trauma. PHYSICAL EXAMINATION: VITAL SIGNS: Reviewed. GENERAL: No acute distress. PULMONARY: Decreased breath sounds. CARDIOVASCULAR: Regular rate. No S3 or S4. ABDOMEN: Soft, nontender, and nondistended. EXTREMITIES: No cyanosis, swelling, or edema. LABORATORY DATA: WBC 21,000. Reviewed the patient's prior labs. In 2017, 34,000 secondary to infection and they improved at the time of discharge. Hemoglobin of 14 and platelet count within normal limits. IMAGING: PICC line inserted in the past. CT scan of the abdomen and pelvis in 2017 shows stones, suprapubic catheter, G-tube in position, multiple liver hyperdensities. ASSESSMENT AND RECOMMENDATIONS: 1. Leukocytosis, potentially secondary to underlying urinary tract infection. The patient has a suprapubic catheter in place, potentially secondary to chronic infection. May consider Infectious Disease service followup, and continue the patient on ceftriaxone. 2. Anemia due to underlying gastrointestinal bleed. Continue to monitor hemoglobin and hematocrit. 3. Neutrophilia, secondary to likely infection. 4. Paraplegia. The patient is from [facility] with coffee-grounds emesis. 5. Diabetes mellitus. Currently, blood sugar is 124. Continue to closely monitor before meals, at bedtime insulin sliding scale. 6. Deep venous thrombosis prophylaxis. We will await heparin subcutaneous once tomorrow's hemoglobin and hematocrit resolve. Nathan Ludwig M.D. DR: CHRISTEN JOB#: [id number] CC:
[2017-06-05 04:00] VITALS: BP 112/75
[2017-06-05] MEDS: D5NS 1,000 ML IV SCH ×4 (04:38→20:34)
[2017-06-05 08:00] VITALS: BP 102/69
[2017-06-05] MEDS ORDERED: Morphine Sulfate 4mg/ml Inj IVP PRN ×2 (09:15→16:30)
[2017-06-05 12:00] VITALS: BP 127/72
--- NOTE | 2017-06-05 12:20 | Pulmonology Progress Note ---
Assessment/Plan Problems: (1) UGIB (upper gastrointestinal bleed) (2) UTI (urinary tract infection) (3) Encephalopathy chronic (4) Aphasia (5) Feeding by G-tube (6) History of CVA (cerebrovascular accident) Assessment/Plan f/u h/h prbc prn GI evaluation h2 blockers. Subjective ROS Limited/Unobtainable: No Interval Events: awake, comfortable Allergies: Coded Allergies: CIPROFLOXACIN (Verified Allergy, Unknown, 08/23/15) Objective Last 24 Hour Vital Signs Date Time Temp Pulse Resp B/P (MAP) Pulse Ox O2 Delivery O2 Flow Rate FiO2 06/05/17 08:00 86 06/05/17 08:00 97.5 87 20 102/69 100 Room Air 97.5 87 06/05/17 04:00 97.7 90 20 112/75 95 Room Air 97.7 06/05/17 04:00 86 06/05/17 00:00 98.1 103 118/74 98.1 06/05/17 00:00 90 06/05/17 00:00 20 94 Room Air 06/04/17 23:14 98.1 16 117/77 95 Room Air 06/04/17 20:00 97.9 99 20 110/85 94 97.9 06/04/17 20:00 101 06/04/17 15:00 98.4 18 116/90 95 98.4 06/04/17 14:36 98.4 118 18 116/90 95 98.4 Intake and Output 06/04/17 06/05/17 19:00 07:00 Intake Total 0 ml 1187 ml Balance 0 ml 1187 ml Intake Oral 0 ml IV Total 1187 ml # Voids 4 # Bowel Movements 1 1 Objective General Appearance: WD/WN, Lines, tubes and drains: peripheral Neck: non-tender, normal inspection Respiratory/Chest: chest wall non-tender, lungs clear Breasts: no masses Cardiovascular/Chest: normal peripheral pulses, normal rate Abdomen: normal bowel sounds, suprapubic catheter Genitourinary/Rectal: normal genital exam Skin Exam: normal pigmentation Microbiology Date/Time Source Procedure Growth Status 06/04/17 15:45 Urine,Clean Catch Urine Culture - Preliminary Resulted Laboratory Tests 06/04/17 15:45: White Blood Count 20.6H, Red Blood Count 4.74, Hemoglobin 14.2, Hematocrit 42.6 , Mean Corpuscular Volume 90, Mean Corpuscular Hemoglobin 30.0, Mean Corpuscular Hemoglobin Concent 33.4, Red Cell Distribution Width 13.4, Platelet Count 226, Mean Platelet Volume 9.5, Neutrophils (%) (Auto) , Lymphocytes (%) ( Auto) , Monocytes (%) (Auto) , Eosinophils (%) (Auto) , Basophils (%) (Auto) , Differential Total Cells Counted 100, Neutrophils % (Manual) 76H, Lymphocytes % (Manual) 16L, Monocytes % (Manual) 5, Eosinophils % (Manual) 0, Basophils % ( Manual) 0, Band Neutrophils 3, Platelet Estimate Adequate, Platelet Morphology Normal, Red Blood Cell Morphology Normal, Prothrombin Time 11.4, Prothromb Time International Ratio 1.1, Activated Partial Thromboplast Time 32, Urine Color Yellow, Urine Appearance Slightly cloudy, Urine pH 9, Urine Specific [place] 1.015, Urine Protein 3+H, Urine Glucose (UA) Negative, Urine Ketones Negative, Urine Occult Blood 4+H, Urine Nitrite Negative, Urine Bilirubin Negative, Urine Urobilinogen Normal, Urine Leukocyte Esterase 2+H, Urine RBC 10-15H, Urine WBC 5 -10H, Urine Squamous Epithelial Cells None, Urine Uric Acid Crystals FewH, Urine Amorphous Sediment FewH, Urine Bacteria ManyH, Sodium Level 139, Potassium Level 4.1, Chloride Level 103, Carbon Dioxide Level 30, Anion Gap 6, Blood Urea Nitrogen 28H, Creatinine 1.1, Estimat Glomerular Filtration Rate > 60 , Glucose Level 124H, Calcium Level 9.8, Total Bilirubin 0.5, Aspartate Amino Transf (AST/SGOT) 15, Alanine Aminotransferase (ALT/SGPT) 19, Alkaline Phosphatase 66, Total Creatine Kinase 67, Creatine Kinase MB 0.5, Creatine Kinase MB Relative Index 0.7, Troponin I 0.000, Total Protein 9.2H, Albumin 3.0L , Globulin 6.2, Albumin/Globulin Ratio 0.5L, Lipase 129 Current Medications Medications (Trade) Dose Ordered Sig/Fab Route PRN Reason Start Time Stop Time Status Last Admin Dose Admin Acetaminophen (Tylenol) 650 mg DAILY PRN ORAL Mild Pain (Pain Scale 1-3) 06/04/17 17:15 07/04/17 17:14 Acetaminophen (Tylenol) 650 mg Q4H PRN ORAL fever (temp>100.5F) 06/04/17 17:15 07/04/17 17:14 Al Hydroxide/Mg Hydroxide (Mylanta II) 30 ml Q6H PRN ORAL dyspepsia 06/04/17 17:15 07/04/17 17:14 Albuterol Sulfate (Proventil MDI) 1 puff Q4H PRN INH Shortness of Breath 06/04/17 18:00 07/04/17 17:59 Dextrose (Dextrose 50%) STAT PRN IV Hypoglycemia 06/04/17 17:15 07/04/17 17:14 Dextrose/Sodium Chloride 1,000 ml @ 100 mls/hr Q10H IV 06/04/17 18:00 07/04/17 17:59 06/05/17 04:38 Diphenhydramine HCl (Benadryl) 25 mg Q6H PRN ORAL Itching/Pruritis 06/04/17 17:15 07/04/17 17:14 Morphine Sulfate (Morphine Sulfate) 2 mg Q4H PRN IVP severe Pain (Pain Scale 7-10) 06/05/17 09:15 06/11/17 17:14 Nitroglycerin (Ntg) 0.4 mg Q5M X 3 DOSES PRN SL Prn Chest Pain 06/04/17 17:15 07/04/17 17:14 Ondansetron HCl (Zofran) 4 mg Q6H PRN IVP Nausea & Vomiting 06/04/17 17:15 07/04/17 17:14 Polyethylene Glycol (Miralax) 17 gm HSPRN PRN ORAL Constipation 06/04/17 17:15 07/04/17 17:14 Temazepam (Restoril) 15 mg HSPRN PRN ORAL Insomnia 06/04/17 17:15 06/11/17 17:14 LISETTE SCOTT Jun 05, 2017 12:20
--- NOTE | 2017-06-05 13:14 | Wound Care Consultation ---
Wound Assessment Wound Assessment #1: Wound Number: 1 Wound Present on Admission: Yes New Wound: No Status Change of Wound: No Wound Location Body Site Modif: right, lateral Wound Location Body Site: knee Wound Type: pressure ulcer Leroy Test: Does not Leroy Wound Thickness: Full Thickness Wound Length: 2.0 Wound Width: 2.0 Wound Depth: utd Percent of Wound Bed Yellow/Wh: 50 Percent of Wound Black/Brown: 50 Wound Drainage Description: Serosanguineous Wound Drainage Amount: Moderate Wound Drainage Odor: None/Absent Tissue Surrounding Wound: Erythemic Wound General Appearance: Draining, Necrotic Wound Assessment #2: Wound Number: 2 Wound Present on Admission: Yes New Wound: No Status Change of Wound: No Wound Location Body Site Modif: left Wound Location Body Site: abdominal fold Wound Type: blister - blood filled Leroy Test: Does not Leroy Wound Thickness: Partial Thickness Wound Length: 2.0 Wound Width: 1.0 Wound Depth: utd Percent of Wound [place]/Red: 100 Wound Drainage Amount: None Wound Drainage Odor: None/Absent Tissue Surrounding Wound: Intact Wound General Appearance: Reddened - deep red Wound Assessment #3: Wound Number: 3 Wound Present on Admission: Yes New Wound: No Status Change of Wound: No Wound Location Body Site Modif: mid Wound Location Body Site: abdomen Wound Type: other - open wound -full thickness -etiology unknown. Leroy Test: Does not Leroy Wound Thickness: Full Thickness Wound Length: 3.5 Wound Width: 3.5 Wound Depth: 0.3 Percent of Wound [place]/Red: 100 Wound Drainage Description: Serosanguineous Wound Drainage Amount: Moderate Wound Drainage Odor: None/Absent Tissue Surrounding Wound: Macerated Wound General Appearance: Reddened, Draining Wound Comment #1 Right lateral knee unstageable pressure ulcer. #2 Left abdominal fold blood filled blister. #3 Mid abdominal open wound full thickness-etiology unknown. Recommendation. -Local wound care as ordered. -Turn and reposition. -Optimize nutrition. -Keep clean and dry. -Offload affected sites. -Offload heels. -Apply heel protectors for preventative measures. -Assess and notify MD for any further change of condition to skin noted. KRISTOPHER SANCHEZ Jun 05, 2017 13:14
--- NOTE | 2017-06-05 13:15 | GI Initial Consult Note ---
History of Present Illness General Date patient seen: Jun 05, 2017 Time patient seen: 13:04 Reason for Hospitalization: Nausea Referring physician: LISETTE OCONNELL Reason for Consultation: COFFEE GROUNDS Present Illness HPI 57-year-old male presents ED for evaluation. Patient presenting from senior living with one episode of coffee-ground emesis today. Currently patient showing no signs of distress. Patient is encephalopathic at baseline and unable to provide any additional history. No vomiting per EMS. No other aggravating relieving factors. No other associated symptoms GI consulted for coffee grounds. ROS limited, pt seen non verbal NAD with no active s/sx of N/V/D. All history obtained from chart. Reports of coffee ground emesis from SNF. Labs reviewed, patient presents with leukocytosis. No anemia noted. Lipase WNL. Pt NPO with IVFs. Unknown history of endoscopies / colonoscopies. Home Meds Active Scripts Rivaroxaban (XARELTO) 15 Mg Tablet, 15 MG GT BID for 14 Days, #30 TAB Prov:CALEB LINDSAY 11/09/16 Reported Medications Cephalexin (Cephalexin) 250 Mg Capsule, 500 MG ORAL QID for 6 Days, CAP 03/13/17 Famotidine (PEPCID) 20 Mg Tablet, 20 MG GT DAILY, #7 TAB 0 Refills 11/12/16 Na Phos,M-B/Na Phos,Di-Ba (Fleet Enema) 133 Ml Enema, 133 ML RC, EA 11/05/16 Bisacodyl (DULCOLAX) 10 Mg Supp.rect, 10 MG RC, SUPP 11/05/16 Albuterol Sulfate (VENTOLIN HFA) 18 Gm Hfa.aer.ad, 1 PUFF INH EVERY 4 HOURS, # 18 GM 0 Refills 11/05/16 Multivitamin With Minerals (MULTIVITAMINS WITH MINERALS*) 1 Each Tablet, 1 TAB ORAL DAILY, TAB 11/05/16 Acetaminophen (Tylenol) 325 Mg Tab, 650 MG ORAL DAILY Y for For Pain 08/23/15 Magnesium Hydroxide* (MILK OF MAGNESIA*) 400 Mg/5 Ml Oral.susp, 30 ML ORAL DAILY , ML 08/23/15 Bisacodyl* (DULCOLAX*) 5 Mg Tablet.dr, 10 MG ORAL DAILY 08/23/15 Docusate Sodium* (DOCUSATE SODIUM*) 100 Mg Capsule, 100 MG ORAL TWICE A DAY 08/23/15 Med list reviewed/reconciled: Yes Allergies: Coded Allergies: CIPROFLOXACIN (Verified Allergy, Unknown, 08/23/15) Patient History Limited by: medical condition History Provided By: Medical Record PMH Narrative Past Medical History: DM Past Surgical History: none Pertinent Family History: none Social History: Denies: smoking, alcohol use, drug use Immunizations: UTD Reviewed Nursing Documentation: PMH: Agreed, PSxH: Agreed Nursing Documentation-PMH Hx Diabetes: Yes - dm type 2, hypokalemia Hx Paralysis: Yes - paraplegic Hx Speech Problem: Yes Hx Aphasia: Yes Review of Systems All Other Systems: limited Physical Exam Vital Signs Date Time Temp Pulse Resp B/P (MAP) Pulse Ox O2 Delivery O2 Flow Rate FiO2 06/04/17 14:36 98.4 118 18 116/90 95 98.4 06/04/17 23:14 Room Air Sp02 EP Interpretation: reviewed Labs Laboratory Tests Test 06/04/17 15:45 White Blood Count 20.6 K/UL (4.8-10.8) H Red Blood Count 4.74 M/UL (4.70-6.10) Hemoglobin 14.2 G/DL (14.2-18.0) Hematocrit 42.6 % (42.0-52.0) Mean Corpuscular Volume 90 FL (80-99) Mean Corpuscular Hemoglobin 30.0 PG (27.0-31.0) Mean Corpuscular Hemoglobin Concent 33.4 G/DL (32.0-36.0) Red Cell Distribution Width 13.4 % (11.6-14.8) Platelet Count 226 K/UL (150-450) Mean Platelet Volume 9.5 FL (6.5-10.1) Neutrophils (%) (Auto) % (45.0-75.0) Lymphocytes (%) (Auto) % (20.0-45.0) Monocytes (%) (Auto) % (1.0-10.0) Eosinophils (%) (Auto) % (0.0-3.0) Basophils (%) (Auto) % (0.0-2.0) Differential Total Cells Counted 100 Neutrophils % (Manual) 76 % (45-75) H Lymphocytes % (Manual) 16 % (20-45) L Monocytes % (Manual) 5 % (1-10) Eosinophils % (Manual) 0 % (0-3) Basophils % (Manual) 0 % (0-2) Band Neutrophils 3 % (0-8) Platelet Estimate Adequate Platelet Morphology Normal Red Blood Cell Morphology Normal Prothrombin Time 11.4 SEC (9.30-11.50) Prothromb Time International Ratio 1.1 (0.9-1.1) Activated Partial Thromboplast Time 32 SEC (23-33) Urine Color Yellow Urine Appearance Slightly cloudy Urine pH 9 (4.5-8.0) Urine Specific [place] 1.015 (1.005-1.035) Urine Protein 3+ (NEGATIVE) H Urine Glucose (UA) Negative (NEGATIVE) Urine Ketones Negative (NEGATIVE) Urine Occult Blood 4+ (NEGATIVE) H Urine Nitrite Negative (NEGATIVE) Urine Bilirubin Negative (NEGATIVE) Urine Urobilinogen Normal MG/DL (0.0-1.0) Urine Leukocyte Esterase 2+ (NEGATIVE) H Urine RBC 10-15 /HPF (0 - 0) H Urine WBC 5-10 /HPF (0 - 0) H Urine Squamous Epithelial Cells None /LPF (NONE/OCC) Urine Uric Acid Crystals Few /LPF (NONE) H Urine Amorphous Sediment Few /LPF (NONE) H Urine Bacteria Many /HPF (NONE) H Sodium Level 139 MMOL/L (136-145) Potassium Level 4.1 MMOL/L (3.5-5.1) Chloride Level 103 MMOL/L (98-107) Carbon Dioxide Level 30 MMOL/L (21-32) Anion Gap 6 mmol/L (5-15) Blood Urea Nitrogen 28 mg/dL (7-18) H Creatinine 1.1 MG/DL (0.55-1.30) Estimat Glomerular Filtration Rate > 60 mL/min (>60) Glucose Level 124 MG/DL (74-106) H Calcium Level 9.8 MG/DL (8.5-10.1) Total Bilirubin 0.5 MG/DL (0.2-1.0) Aspartate Amino Transf (AST/SGOT) 15 U/L (15-37) Alanine Aminotransferase (ALT/SGPT) 19 U/L (12-78) Alkaline Phosphatase 66 U/L (46-116) Total Creatine Kinase 67 U/L (26-308) Creatine Kinase MB 0.5 NG/ML (0.0-3.6) Creatine Kinase MB Relative Index 0.7 Troponin I 0.000 ng/mL (0.000-0.056) Total Protein 9.2 G/DL (6.4-8.2) H Albumin 3.0 G/DL (3.4-5.0) L Globulin 6.2 g/dL Albumin/Globulin Ratio 0.5 (1.0-2.7) L Lipase 129 U/L (73-393) General Appearance: well appearing, no apparent distress Head: normocephalic EENT: normal ENT inspection Neck: supple Respiratory: normal breath sounds, no respiratory distress Cardiovascular: normal rate Gastrointestinal: normal inspection, non tender, soft Neurologic: alert Skin: normal inspection, normal color, no rash Lymphatic: normal inspection, no adenopathy Current Medications Current Medications Medications (Trade) Dose Ordered Sig/Fab Route PRN Reason Start Time Stop Time Status Last Admin Dose Admin Acetaminophen (Tylenol) 650 mg DAILY PRN ORAL Mild Pain (Pain Scale 1-3) 06/04/17 17:15 07/04/17 17:14 Acetaminophen (Tylenol) 650 mg Q4H PRN ORAL fever (temp>100.5F) 06/04/17 17:15 07/04/17 17:14 Al Hydroxide/Mg Hydroxide (Mylanta II) 30 ml Q6H PRN ORAL dyspepsia 06/04/17 17:15 07/04/17 17:14 Albuterol Sulfate (Proventil MDI) 1 puff Q4H PRN INH Shortness of Breath 06/04/17 18:00 07/04/17 17:59 Dextrose (Dextrose 50%) STAT PRN IV Hypoglycemia 06/04/17 17:15 07/04/17 17:14 Dextrose/Sodium Chloride 1,000 ml @ 100 mls/hr Q10H IV 06/04/17 18:00 07/04/17 17:59 06/05/17 04:38 Diphenhydramine HCl (Benadryl) 25 mg Q6H PRN ORAL Itching/Pruritis 06/04/17 17:15 07/04/17 17:14 Morphine Sulfate (Morphine Sulfate) 2 mg Q4H PRN IVP severe Pain (Pain Scale 7-10) 06/05/17 09:15 06/11/17 17:14 Nitroglycerin (Ntg) 0.4 mg Q5M X 3 DOSES PRN SL Prn Chest Pain 06/04/17 17:15 07/04/17 17:14 Ondansetron HCl (Zofran) 4 mg Q6H PRN IVP Nausea & Vomiting 06/04/17 17:15 07/04/17 17:14 Polyethylene Glycol (Miralax) 17 gm HSPRN PRN ORAL Constipation 06/04/17 17:15 07/04/17 17:14 Temazepam (Restoril) 15 mg HSPRN PRN ORAL Insomnia 06/04/17 17:15 06/11/17 17:14 GI: Plan Problems: (1) Feeding by G-tube (2) UGIB (upper gastrointestinal bleed) (3) Aphasia Plan defer EGD at this time given stable H&H with no active signs of bleed OB stool r/o GI bleed ppi prn transfusions okay to start GTFs per RD abx fu labs Discussed with Dr. Faust. Thank you for this patient referral, we will follow. Chanell Ocampo N.P. Jun 05, 2017 13:15
[2017-06-05 13:51] LABS: BASOPHILS % (AUTO) 1.4 % (0.0-2.0); EOSINOPHILS % (AUTO) 2.3 % (0.0-3.0); HEMATOCRIT 38.5 % (42.0-52.0); HEMOGLOBIN 12.6 G/DL (14.2-18.0); LYMPHOCYTES % (AUTO) 26.4 % (20.0-45.0); MEAN CORPUSCULAR VOLUME 91 FL (80-99); PLATELET COUNT 218 K/UL (150-450); RED BLOOD COUNT 4.22 M/UL (4.70-6.10); RED CELL DISTRIBUTION WIDTH 13.5 % (11.6-14.8); WHITE BLOOD COUNT 8.3 K/UL (4.8-10.8)
[2017-06-05 14:10] LABS: ALANINE AMINOTRANSFERASE 9 U/L (12-78); ALBUMIN 2.6 G/DL (3.4-5.0); ALBUMIN/GLOBULIN RATIO 0.5 (1.0-2.7); ALKALINE PHOSPHATASE 63 U/L (46-116); AMYLASE 63 U/L (25-115); ANION GAP 6 mmol/L (5-15); ASPARTATE AMINO TRANSFERASE 18 U/L (15-37); BILIRUBIN,TOTAL 0.2 MG/DL (0.2-1.0); BLOOD UREA NITROGEN 21 mg/dL (7-18); CALCIUM 8.7 MG/DL (8.5-10.1); CARBON DIOXIDE 29 MMOL/L (21-32); CHLORIDE 108 MMOL/L (98-107); CREATININE 0.8 MG/DL (0.55-1.30); POTASSIUM 3.6 MMOL/L (3.5-5.1); SODIUM 143 MMOL/L (136-145)
[2017-06-05 16:00] VITALS: BP 127/79
[2017-06-05] MEDS ORDERED: Albuterol 90mcg Inhaler 8gm INH PRN (16:30)
[2017-06-05] MEDS ORDERED: Nitroglycerin Subl 0.4mg tab SL PRN (16:30)
[2017-06-05] MEDS ORDERED: Mylanta II UD 30ml ORAL PRN (17:15)
[2017-06-05] MEDS ORDERED: Miralax 17gm pkt ORAL PRN (17:15)
--- NOTE | 2017-06-05 18:19 | Consultation ---
History of Present Illness General Date patient seen: Jun 05, 2017 Chief Complaint: Nausea Referring physician: LISETTE OCONNELL Reason for Consultation: COFFEE GROUNDS Present Illness HPI 57-year-old male presents ED for evaluation. Patient presenting from senior living with one episode of coffee-ground emesis today. Currently patient showing no signs of distress. Patient is encephalopathic at baseline and unable to provide any additional history. today he was noted eating his chest leads. during the eval he was confused. Allergies: Coded Allergies: CIPROFLOXACIN (Verified Allergy, Unknown, 08/23/15) Medication History Scheduled Albuterol Sulfate (Ventolin Hfa), 1 PUFF INH EVERY 4 HOURS, (Reported) Bisacodyl* (Dulcolax*), 10 MG ORAL DAILY, (Reported) Cephalexin (Cephalexin), 500 MG ORAL QID, (Reported) Docusate Sodium* (Docusate Sodium*), 100 MG ORAL TWICE A DAY, (Reported) Famotidine (Pepcid), 20 MG GT DAILY, (Reported) Magnesium Hydroxide* (Milk Of Magnesia*), 30 ML ORAL DAILY, (Reported) Multivitamin With Minerals (Multivitamins With Minerals*), 1 TAB ORAL DAILY, ( Reported) Rivaroxaban (Xarelto), 15 MG GT BID Scheduled PRN Acetaminophen (Tylenol), 650 MG ORAL DAILY PRN for For Pain, (Reported) Miscellaneous Medications Bisacodyl (Dulcolax), 10 MG RC, (Reported) Na Phos,M-B/Na Phos,Di-Ba (Fleet Enema), 133 ML RC, (Reported) Patient History History Provided By: Patient, Medical Record, PMD Healthcare decision maker N Resuscitation status Full Code Advanced Directive on File No Past Medical/Surgical History Past Medical/Surgical History: (1) gtube malfunction (2) Scrotal disorder (3) Cellulitis of scrotum (4) UTI (urinary tract infection) (5) UGIB (upper gastrointestinal bleed) (6) Aphasia (7) Feeding by G-tube (8) History of CVA (cerebrovascular accident) (9) Suprapubic catheter dysfunction (10) Encephalopathy chronic Review of Systems Psychiatric: Reports: prior hx, anxiety, depressed feelings, emotional problems , hallucinations Physical Exam General Appearance: alert, confused, agitated Neurologic: alert Last 24 Hour Vital Signs Date Time Temp Pulse Resp B/P (MAP) Pulse Ox O2 Delivery O2 Flow Rate FiO2 06/05/17 16:00 97.5 83 20 127/79 96 97.5 83 06/05/17 12:00 97.3 78 20 127/72 100 Room Air 97.3 87 06/05/17 12:00 87 06/05/17 08:00 86 06/05/17 08:00 97.5 87 20 102/69 100 Room Air 97.5 87 06/05/17 04:00 97.7 90 20 112/75 95 Room Air 97.7 06/05/17 04:00 86 06/05/17 00:00 98.1 103 118/74 98.1 06/05/17 00:00 90 06/05/17 00:00 20 94 Room Air 06/04/17 23:14 98.1 16 117/77 95 Room Air 06/04/17 20:00 97.9 99 20 110/85 94 97.9 06/04/17 20:00 101 Intake and Output 06/04/17 06/05/17 19:00 07:00 Intake Total 0 ml 1187 ml Balance 0 ml 1187 ml Intake Oral 0 ml IV Total 1187 ml # Voids 4 # Bowel Movements 1 1 Laboratory Tests Test 06/05/17 13:05 White Blood Count 8.3 K/UL (4.8-10.8) # Red Blood Count 4.22 M/UL (4.70-6.10) L Hemoglobin 12.6 G/DL (14.2-18.0) L Hematocrit 38.5 % (42.0-52.0) L Mean Corpuscular Volume 91 FL (80-99) Mean Corpuscular Hemoglobin 29.8 PG (27.0-31.0) Mean Corpuscular Hemoglobin Concent 32.6 G/DL (32.0-36.0) Red Cell Distribution Width 13.5 % (11.6-14.8) Platelet Count 218 K/UL (150-450) Mean Platelet Volume 9.4 FL (6.5-10.1) Neutrophils (%) (Auto) 58.0 % (45.0-75.0) Lymphocytes (%) (Auto) 26.4 % (20.0-45.0) Monocytes (%) (Auto) 12.0 % (1.0-10.0) H Eosinophils (%) (Auto) 2.3 % (0.0-3.0) Basophils (%) (Auto) 1.4 % (0.0-2.0) Prothrombin Time 10.7 SEC (9.30-11.50) Prothromb Time International Ratio 1.0 (0.9-1.1) Activated Partial Thromboplast Time 30 SEC (23-33) Sodium Level 143 MMOL/L (136-145) Potassium Level 3.6 MMOL/L (3.5-5.1) Chloride Level 108 MMOL/L (98-107) H Carbon Dioxide Level 29 MMOL/L (21-32) Anion Gap 6 mmol/L (5-15) Blood Urea Nitrogen 21 mg/dL (7-18) H Creatinine 0.8 MG/DL (0.55-1.30) Estimat Glomerular Filtration Rate > 60 mL/min (>60) Glucose Level 110 MG/DL (74-106) H Calcium Level 8.7 MG/DL (8.5-10.1) Total Bilirubin 0.2 MG/DL (0.2-1.0) Aspartate Amino Transf (AST/SGOT) 18 U/L (15-37) Alanine Aminotransferase (ALT/SGPT) 9 U/L (12-78) L Alkaline Phosphatase 63 U/L (46-116) Total Protein 8.3 G/DL (6.4-8.2) H Albumin 2.6 G/DL (3.4-5.0) L Globulin 5.7 g/dL Albumin/Globulin Ratio 0.5 (1.0-2.7) L Amylase Level 63 U/L (25-115) Lipase 133 U/L (73-393) Height (Feet): 5 Height (Inches): 6.00 Weight (Pounds): 220 Medications Current Medications Medications (Trade) Dose Ordered Sig/Fab Route PRN Reason Start Time Stop Time Status Last Admin Dose Admin Acetaminophen (Tylenol) 650 mg DAILYPRN PRN ORAL Mild Pain (Pain Scale 1-3) 06/05/17 16:30 07/05/17 16:29 Acetaminophen (Tylenol) 650 mg Q4H PRN ORAL fever (temp>100.5F) 06/05/17 16:30 07/05/17 16:29 Al Hydroxide/Mg Hydroxide (Mylanta II) 30 ml Q6H PRN ORAL dyspepsia 06/05/17 17:15 07/04/17 17:14 Albuterol Sulfate (Proventil MDI) 1 puff Q4H PRN INH Shortness of Breath 06/05/17 16:30 07/04/17 16:29 Dextrose (Dextrose 50%) STAT PRN IV Hypoglycemia 06/05/17 16:30 07/04/17 16:29 Dextrose/Sodium Chloride 1,000 ml @ 100 mls/hr Q10H IV 06/05/17 16:30 07/04/17 17:59 Diphenhydramine HCl (Benadryl) 25 mg Q6H PRN ORAL Itching/Pruritis 06/05/17 16:30 07/04/17 16:29 Morphine Sulfate (Morphine Sulfate) 2 mg Q4H PRN IVP Severe Pain (Pain Scale 7-10) 06/05/17 16:30 06/11/17 16:29 Nitroglycerin (Ntg) 0.4 mg Q5M X 3 DOSES PRN SL Prn Chest Pain 06/05/17 16:30 07/04/17 17:14 Ondansetron HCl (Zofran) 4 mg Q6H PRN IVP Nausea & Vomiting 06/05/17 16:30 07/04/17 16:29 Polyethylene Glycol (Miralax) 17 gm HSPRN PRN ORAL Constipation 06/05/17 17:15 07/04/17 17:14 Temazepam (Restoril) 15 mg HSPRN PRN ORAL Insomnia 06/05/17 21:00 06/11/17 20:59 Assessment/Plan Assessment/Plan encephalopathy risperdal 1mg qhs Chanel Ingram M.D. Jun 05, 2017 18:19
--- NOTE | 2017-06-05 18:31 | Cardiology Report ---
APPROVED REPORT EKG Measurement Heart [id number] Normal sinus rhythm Normal ECG
--- NOTE | 2017-06-05 19:11 | Consultation ---
History of Present Illness General Date patient seen: Jun 05, 2017 Time patient seen: 19:09 Chief Complaint: Nausea Referring physician: LISETTE OCONNELL Reason for Consultation: COFFEE GROUNDS Present Illness HPI 57 yo male with multiple medical issues. Coffee ground emesis. Question regarding SP tube necessity. Patient is facility bound. Allergies: Coded Allergies: CIPROFLOXACIN (Verified Allergy, Unknown, 08/23/15) Medication History Scheduled Albuterol Sulfate (Ventolin Hfa), 1 PUFF INH EVERY 4 HOURS, (Reported) Bisacodyl* (Dulcolax*), 10 MG ORAL DAILY, (Reported) Cephalexin (Cephalexin), 500 MG ORAL QID, (Reported) Docusate Sodium* (Docusate Sodium*), 100 MG ORAL TWICE A DAY, (Reported) Famotidine (Pepcid), 20 MG GT DAILY, (Reported) Magnesium Hydroxide* (Milk Of Magnesia*), 30 ML ORAL DAILY, (Reported) Multivitamin With Minerals (Multivitamins With Minerals*), 1 TAB ORAL DAILY, ( Reported) Rivaroxaban (Xarelto), 15 MG GT BID Scheduled PRN Acetaminophen (Tylenol), 650 MG ORAL DAILY PRN for For Pain, (Reported) Miscellaneous Medications Bisacodyl (Dulcolax), 10 MG RC, (Reported) Na Phos,M-B/Na Phos,Di-Ba (Fleet Enema), 133 ML RC, (Reported) Patient History Limited by: medical condition Healthcare decision maker N Resuscitation status Full Code Advanced Directive on File No Review of Systems All Other Systems: negative except mentioned in HPI Physical Exam General Appearance: alert Neck: supple Abdomen: non tender, soft, other - Sp tube in place draining Last 24 Hour Vital Signs Date Time Temp Pulse Resp B/P (MAP) Pulse Ox O2 Delivery O2 Flow Rate FiO2 06/05/17 16:00 97.5 83 20 127/79 96 97.5 83 06/05/17 12:00 97.3 78 20 127/72 100 Room Air 97.3 87 06/05/17 12:00 87 06/05/17 08:00 86 06/05/17 08:00 97.5 87 20 102/69 100 Room Air 97.5 87 06/05/17 04:00 97.7 90 20 112/75 95 Room Air 97.7 06/05/17 04:00 86 06/05/17 00:00 98.1 103 118/74 98.1 06/05/17 00:00 90 06/05/17 00:00 20 94 Room Air 06/04/17 23:14 98.1 16 117/77 95 Room Air 06/04/17 20:00 97.9 99 20 110/85 94 97.9 06/04/17 20:00 101 Intake and Output 06/04/17 06/05/17 19:00 07:00 Intake Total 0 ml 1187 ml Balance 0 ml 1187 ml Intake Oral 0 ml IV Total 1187 ml # Voids 4 # Bowel Movements 1 1 Laboratory Tests Test 06/05/17 13:05 White Blood Count 8.3 K/UL (4.8-10.8) # Red Blood Count 4.22 M/UL (4.70-6.10) L Hemoglobin 12.6 G/DL (14.2-18.0) L Hematocrit 38.5 % (42.0-52.0) L Mean Corpuscular Volume 91 FL (80-99) Mean Corpuscular Hemoglobin 29.8 PG (27.0-31.0) Mean Corpuscular Hemoglobin Concent 32.6 G/DL (32.0-36.0) Red Cell Distribution Width 13.5 % (11.6-14.8) Platelet Count 218 K/UL (150-450) Mean Platelet Volume 9.4 FL (6.5-10.1) Neutrophils (%) (Auto) 58.0 % (45.0-75.0) Lymphocytes (%) (Auto) 26.4 % (20.0-45.0) Monocytes (%) (Auto) 12.0 % (1.0-10.0) H Eosinophils (%) (Auto) 2.3 % (0.0-3.0) Basophils (%) (Auto) 1.4 % (0.0-2.0) Prothrombin Time 10.7 SEC (9.30-11.50) Prothromb Time International Ratio 1.0 (0.9-1.1) Activated Partial Thromboplast Time 30 SEC (23-33) Sodium Level 143 MMOL/L (136-145) Potassium Level 3.6 MMOL/L (3.5-5.1) Chloride Level 108 MMOL/L (98-107) H Carbon Dioxide Level 29 MMOL/L (21-32) Anion Gap 6 mmol/L (5-15) Blood Urea Nitrogen 21 mg/dL (7-18) H Creatinine 0.8 MG/DL (0.55-1.30) Estimat Glomerular Filtration Rate > 60 mL/min (>60) Glucose Level 110 MG/DL (74-106) H Calcium Level 8.7 MG/DL (8.5-10.1) Total Bilirubin 0.2 MG/DL (0.2-1.0) Aspartate Amino Transf (AST/SGOT) 18 U/L (15-37) Alanine Aminotransferase (ALT/SGPT) 9 U/L (12-78) L Alkaline Phosphatase 63 U/L (46-116) Total Protein 8.3 G/DL (6.4-8.2) H Albumin 2.6 G/DL (3.4-5.0) L Globulin 5.7 g/dL Albumin/Globulin Ratio 0.5 (1.0-2.7) L Amylase Level 63 U/L (25-115) Lipase 133 U/L (73-393) Height (Feet): 5 Height (Inches): 6.00 Weight (Pounds): 220 Medications Current Medications Medications (Trade) Dose Ordered Sig/Fab Route PRN Reason Start Time Stop Time Status Last Admin Dose Admin Acetaminophen (Tylenol) 650 mg DAILYPRN PRN ORAL Mild Pain (Pain Scale 1-3) 06/05/17 16:30 07/05/17 16:29 Acetaminophen (Tylenol) 650 mg Q4H PRN ORAL fever (temp>100.5F) 06/05/17 16:30 07/05/17 16:29 Al Hydroxide/Mg Hydroxide (Mylanta II) 30 ml Q6H PRN ORAL dyspepsia 06/05/17 17:15 07/04/17 17:14 Albuterol Sulfate (Proventil MDI) 1 puff Q4H PRN INH Shortness of Breath 06/05/17 16:30 07/04/17 16:29 Dextrose (Dextrose 50%) STAT PRN IV Hypoglycemia 06/05/17 16:30 07/04/17 16:29 Dextrose/Sodium Chloride 1,000 ml @ 100 mls/hr Q10H IV 06/05/17 16:30 07/04/17 17:59 Diphenhydramine HCl (Benadryl) 25 mg Q6H PRN ORAL Itching/Pruritis 06/05/17 16:30 07/04/17 16:29 Morphine Sulfate (Morphine Sulfate) 2 mg Q4H PRN IVP Severe Pain (Pain Scale 7-10) 06/05/17 16:30 06/11/17 16:29 Nitroglycerin (Ntg) 0.4 mg Q5M X 3 DOSES PRN SL Prn Chest Pain 06/05/17 16:30 07/04/17 17:14 Ondansetron HCl (Zofran) 4 mg Q6H PRN IVP Nausea & Vomiting 06/05/17 16:30 07/04/17 16:29 Polyethylene Glycol (Miralax) 17 gm HSPRN PRN ORAL Constipation 06/05/17 17:15 07/04/17 17:14 Risperidone (RisperDAL) 1 mg BEDTIME PRN ORAL For Anxiety 06/05/17 18:30 07/05/17 18:29 Temazepam (Restoril) 15 mg HSPRN PRN ORAL Insomnia 06/05/17 21:00 06/11/17 20:59 Assessment/Plan Status: stable Assessment/Plan 57 yo male facility bound. given co-morbidities, patient is not a good candidate to be without any reliable urinary drainage. SP tube was changed at this facility recently, it is working. Not uncommon to void per penis with SP tube in. Continue SP tube care, change every 2 months. Sammy Lara M.D. Jun 05, 2017 19:11
[2017-06-05 19:58] VITALS: BP 133/87
[2017-06-06] VITALS: BP 134/83
[2017-06-06 04:00] VITALS: BP 130/81
[2017-06-06] MEDS: D5NS 1,000 ML IV SCH ×2 (06:12→22:37)
[2017-06-06 08:22] VITALS: BP 133/89
--- NOTE | 2017-06-06 10:18 | GI Progress Note ---
Assessment/Plan Problems: (1) Feeding by G-tube ICD Codes: Z93.1 - Gastrostomy status SNOMED: 577714574, 849726234 (2) Aphasia ICD Codes: R47.01 - Aphasia SNOMED: 93186473 (3) UGIB (upper gastrointestinal bleed) ICD Codes: K92.2 - Gastrointestinal hemorrhage, unspecified SNOMED: 34945578 Status: stable Status Narrative Discussed with Dr. Faust. Assessment/Plan defer EGD at this time given stable H&H with no active signs of bleed OB stool r/o GI bleed ppi prn transfusions GTFs per RD abx fu labs Subjective Gastrointestinal/Abdominal: Reports: no symptoms Subjective limited Objective Last 24 Hour Vital Signs Date Time Temp Pulse Resp B/P (MAP) Pulse Ox O2 Delivery O2 Flow Rate FiO2 06/06/17 08:22 97.2 91 19 133/89 97.2 20 06/06/17 04:00 97.6 90 18 130/81 100 97.6 06/06/17 00:00 97.8 91 18 134/83 99 97.8 06/06/17 00:00 Room Air 06/05/17 20:00 Room Air 06/05/17 19:58 98.7 90 18 133/87 100 98.7 06/05/17 16:00 97.5 83 20 127/79 96 97.5 83 06/05/17 12:00 97.3 78 20 127/72 100 Room Air 97.3 87 06/05/17 12:00 87 Intake and Output 06/05/17 06/06/17 19:00 07:00 Intake Total 730 ml 1440 ml Output Total 100 ml 200 ml Balance 630 ml 1240 ml Free Water 100 ml IV Total 700 ml 900 ml Tube Feeding 30 ml 440 ml Output Urine Total 100 ml 200 ml # Voids 2 2 Laboratory Tests Test 06/05/17 13:05 White Blood Count 8.3 K/UL (4.8-10.8) # Red Blood Count 4.22 M/UL (4.70-6.10) L Hemoglobin 12.6 G/DL (14.2-18.0) L Hematocrit 38.5 % (42.0-52.0) L Mean Corpuscular Volume 91 FL (80-99) Mean Corpuscular Hemoglobin 29.8 PG (27.0-31.0) Mean Corpuscular Hemoglobin Concent 32.6 G/DL (32.0-36.0) Red Cell Distribution Width 13.5 % (11.6-14.8) Platelet Count 218 K/UL (150-450) Mean Platelet Volume 9.4 FL (6.5-10.1) Neutrophils (%) (Auto) 58.0 % (45.0-75.0) Lymphocytes (%) (Auto) 26.4 % (20.0-45.0) Monocytes (%) (Auto) 12.0 % (1.0-10.0) H Eosinophils (%) (Auto) 2.3 % (0.0-3.0) Basophils (%) (Auto) 1.4 % (0.0-2.0) Prothrombin Time 10.7 SEC (9.30-11.50) Prothromb Time International Ratio 1.0 (0.9-1.1) Activated Partial Thromboplast Time 30 SEC (23-33) Sodium Level 143 MMOL/L (136-145) Potassium Level 3.6 MMOL/L (3.5-5.1) Chloride Level 108 MMOL/L (98-107) H Carbon Dioxide Level 29 MMOL/L (21-32) Anion Gap 6 mmol/L (5-15) Blood Urea Nitrogen 21 mg/dL (7-18) H Creatinine 0.8 MG/DL (0.55-1.30) Estimat Glomerular Filtration Rate > 60 mL/min (>60) Glucose Level 110 MG/DL (74-106) H Calcium Level 8.7 MG/DL (8.5-10.1) Total Bilirubin 0.2 MG/DL (0.2-1.0) Aspartate Amino Transf (AST/SGOT) 18 U/L (15-37) Alanine Aminotransferase (ALT/SGPT) 9 U/L (12-78) L Alkaline Phosphatase 63 U/L (46-116) Total Protein 8.3 G/DL (6.4-8.2) H Albumin 2.6 G/DL (3.4-5.0) L Globulin 5.7 g/dL Albumin/Globulin Ratio 0.5 (1.0-2.7) L Amylase Level 63 U/L (25-115) Lipase 133 U/L (73-393) Height (Feet): 5 Height (Inches): 6.00 Weight (Pounds): 220 General Appearance: no apparent distress, alert Cardiovascular: normal rate Respiratory/Chest: normal breath sounds, no respiratory distress Abdominal Exam: normal bowel sounds, non tender, soft, GT site - c/d/i Extremities: non-tender Chanell Ocampo N.P. Jun 06, 2017 10:18
--- NOTE | 2017-06-06 10:23 | General Progress Note ---
Assessment/Plan Assessment/Plan 1. Leukocytosis, potentially secondary to underlying urinary tract infection. --> Wbc count downtrended from yesterday and now WNL --> The patient has a suprapubic catheter in place, potentially secondary to chronic infection. --> May consider Infectious Disease service followup, and continue the patient on ceftriaxone. 2. Anemia due to underlying gastrointestinal bleed. Mild at this time. --> Continue to monitor hemoglobin and hematocrit. 3. Neutrophilia, secondary to likely infection. 4. Paraplegia. --> The patient is from [facility] with coffee-grounds emesis. 5. Diabetes mellitus. Currently, blood sugar is 124. --> Continue to closely monitor before meals, at bedtime insulin sliding scale. 6. Deep venous thrombosis prophylaxis. --> We will await heparin subcutaneous once tomorrow's hemoglobin and hematocrit resolve. Subjective Date patient seen: Jun 05, 2017 Constitutional: Denies: no symptoms, chills, diaphoresis, fever, malaise, weakness, other HEENT: Denies: no symptoms, eye pain, blurred vision, tearing, double vision, ear pain, ear discharge, nose pain, nose congestion, throat pain, throat swelling, mouth pain, mouth swelling, other Cardiovascular: Denies: no symptoms, chest pain, edema, irregular heart rate, lightheadedness, palpitations, syncope, other Respiratory: Denies: no symptoms, cough, orthopnea, shortness of breath, SOB with excertion, SOB at rest, sputum, stridor, wheezing, other Gastrointestinal/Abdominal: Denies: no symptoms, abdomen distended, abdominal pain, black stools, tarry stools, blood in stool, constipated, diarrhea, difficulty swallowing, nausea, poor appetite, poor fluid intake, rectal bleeding , vomiting, other Genitourinary: Denies: no symptoms, burning, discharge, frequency, flank pain, hematuria, incontinence, pain, urgency, other Hematologic/Lymphatic: Reports: anemia Allergies: Coded Allergies: CIPROFLOXACIN (Verified Allergy, Unknown, 08/23/15) Subjective Leukocytosis improved. Resting in bed. No fever. Objective Last 24 Hour Vital Signs Date Time Temp Pulse Resp B/P (MAP) Pulse Ox O2 Delivery O2 Flow Rate FiO2 06/06/17 08:22 97.2 91 19 133/89 97.2 20 06/06/17 04:00 97.6 90 18 130/81 100 97.6 06/06/17 00:00 97.8 91 18 134/83 99 97.8 06/06/17 00:00 Room Air 06/05/17 20:00 Room Air 06/05/17 19:58 98.7 90 18 133/87 100 98.7 06/05/17 16:00 97.5 83 20 127/79 96 97.5 83 06/05/17 12:00 97.3 78 20 127/72 100 Room Air 97.3 87 06/05/17 12:00 87 Intake and Output 06/05/17 06/06/17 19:00 07:00 Intake Total 730 ml 1440 ml Output Total 100 ml 200 ml Balance 630 ml 1240 ml Free Water 100 ml IV Total 700 ml 900 ml Tube Feeding 30 ml 440 ml Output Urine Total 100 ml 200 ml # Voids 2 2 Laboratory Tests 06/05/17 13:05: White Blood Count 8.3#, Red Blood Count 4.22L, Hemoglobin 12.6L, Hematocrit 38.5L, Mean Corpuscular Volume 91, Mean Corpuscular Hemoglobin 29.8, Mean Corpuscular Hemoglobin Concent 32.6, Red Cell Distribution Width 13.5, Platelet Count 218, Mean Platelet Volume 9.4, Neutrophils (%) (Auto) 58.0, Lymphocytes (% ) (Auto) 26.4, Monocytes (%) (Auto) 12.0H, Eosinophils (%) (Auto) 2.3, Basophils (%) (Auto) 1.4, Prothrombin Time 10.7, Prothromb Time International Ratio 1.0, Activated Partial Thromboplast Time 30, Sodium Level 143, Potassium Level 3.6, Chloride Level 108H, Carbon Dioxide Level 29, Anion Gap 6, Blood Urea Nitrogen 21H, Creatinine 0.8, Estimat Glomerular Filtration Rate > 60, Glucose Level 110H, Calcium Level 8.7, Total Bilirubin 0.2, Aspartate Amino Transf (AST/SGOT) 18, Alanine Aminotransferase (ALT/SGPT) 9L, Alkaline Phosphatase 63, Total Protein 8.3H, Albumin 2.6L, Globulin 5.7, Albumin/ Globulin Ratio 0.5L, Amylase Level 63, Lipase 133 Height (Feet): 5 Height (Inches): 6.00 Weight (Pounds): 220 Respiratory/Chest: decreased breath sounds Abdomen: non tender, soft Edema: trace edema Skin: warm/dry Nathan Ludwig Jun 06, 2017 10:23
[2017-06-06 12:00] VITALS: BP 130/87
--- NOTE | 2017-06-06 13:11 | Consultation ---
Consult Note Consult Note ID DIC # [id number] JACOBO RAPHAEL M.D. Jun 06, 2017 13:11
--- NOTE | 2017-06-06 13:29 | Diagnostic Imaging Report ---
APPROVED REPORT CPT Code: 92412 Present Symptoms Comments: R/O DVT Technically difficult study. (patient has BLE contractures of the knee). RIGHT LEG: Venous imaging reveals a patent deep venous system. There is no evidence of thrombus within the femoral, popliteal or tibial segments. The greater saphenous vein is also within normal limits. Doppler indicates normal spontaneous flow within these segments. LEFT LEG: Venous imaging reveals recanalized chronic thrombus in the superficial femoral vein and popliteal vein. Large collateral vein noted anterior to the superficial femoral artery. The remainder of the deep venous system is within normal limits. There is no evidence of thrombus in the common femoral, or calf veins. The greater saphenous vein is also within normal limits. Doppler indicates normal spontaneous flow within these segments. There is no evidence of acute deep vein thrombosis.
--- NOTE | 2017-06-06 15:23 | General Progress Note ---
Assessment/Plan Status: stable Assessment/Plan Covering IM for Dr Looney: (1) UGIB (upper gastrointestinal bleed) (2) UTI (urinary tract infection) (3) Encephalopathy chronic (4) Aphasia (5) Feeding by G-tube (6) History of CVA (cerebrovascular accident) Notes from GI and Hem/onch reviewd agree with current management Subjective Allergies: Coded Allergies: CIPROFLOXACIN (Verified Allergy, Unknown, 08/23/15) Objective Last 24 Hour Vital Signs Date Time Temp Pulse Resp B/P (MAP) Pulse Ox O2 Delivery O2 Flow Rate FiO2 06/06/17 12:00 97.7 73 20 130/87 100 97.7 06/06/17 08:22 97.2 91 19 133/89 97.2 20 06/06/17 04:00 97.6 90 18 130/81 100 97.6 06/06/17 00:00 97.8 91 18 134/83 99 97.8 06/06/17 00:00 Room Air 06/05/17 20:00 Room Air 06/05/17 19:58 98.7 90 18 133/87 100 98.7 06/05/17 16:00 97.5 83 20 127/79 96 97.5 83 Intake and Output 06/05/17 06/06/17 19:00 07:00 Intake Total 730 ml 1440 ml Output Total 100 ml 200 ml Balance 630 ml 1240 ml Free Water 100 ml IV Total 700 ml 900 ml Tube Feeding 30 ml 440 ml Output Urine Total 100 ml 200 ml # Voids 2 2 Height (Feet): 5 Height (Inches): 6.00 Weight (Pounds): 220 Krystal Duval MD Jun 06, 2017 15:23
[2017-06-06 16:00] VITALS: BP 134/94
--- NOTE | 2017-06-06 20:01 | Progress Note ---
DATE: 06/06/2017 SUBJECTIVE: The patient has the same intensity of aggressive. Refused the chest x-ray. Has poor insight and judgment. Minimally verbal. Slept well last night. He is having cognitive impairment and is having difficulty processing the information given to him. MENTAL STATUS EXAMINATION: Patient is alert and oriented to time and self. Minimally verbal. Unable to assess his cognition due to being uncooperative or confusion. Cognition is impaired. Mood is neutral to agitation. Affect is constricted. Thought process is concrete. Thought content, no suicidal or homicidal ideations. ASSESSMENT: 1. Cognitive impairment. 2. Psychosis. PLAN: 1. We will continue current medications. 2. We will provide the patient with supportive therapy and reality orientation. Chanel Ingram M.D. DR: Ernesto JOB#: [id number] CC:
--- NOTE | 2017-06-06 23:31 | Consultation ---
DATE OF CONSULTATION: 06/06/2017 INFECTIOUS DISEASES CONSULTATION CONSULTING PHYSICIAN: Peterson Cabrera M.D. REFERRING PHYSICIAN: Rigoberto Bryant M.D. REASON FOR CONSULTATION: Evaluation of the patient for leukocytosis. HISTORY OF PRESENT ILLNESS: The patient is a 57-year-old male with multiple medical problems, who was admitted here with an episode of coffee-ground emesis. The patient had mild epigastric abdominal pain. The patient at the time of admission was found to have leukocytosis of 20. Infectious Diseases consultation has been requested for need for possible antibiotic management. The patient is not able to provide detailed information. However, his son is present, was able to gather information from him personally. PAST MEDICAL HISTORY: 1. Quadriplegia. 2. History of CVA. 3. Seizure disorder. 4. Suprapubic catheter. 5. History of hypertension. 6. History of DVT. 7. COPD. 8. GERD. 9. Contracture of all four extremities. 10. Diabetes. 11. Anxiety. MEDICATIONS: Currently off of antibiotics. ALLERGIES: Cipro. FAMILY HISTORY: Unavailable. REVIEW OF SYSTEMS: Limited. Most of the information as we were able to gather mentioned above. The patient does not have cough. No diarrhea. PHYSICAL EXAMINATION: VITAL SIGNS: Temperature 97 degrees, blood pressure 130/87, pulse 86, and respiratory rate 18. HEENT: No pale conjunctiva. No icterus. NECK: No lymphadenopathy. CHEST: Clear. HEART: S1 and S2. ABDOMEN: Soft. G-tube in place. Also, the patient has suprapubic catheter. EXTREMITIES: No cyanosis at this time. NEUROLOGIC: Awake. SKIN: No rash. LABORATORY AND DIAGNOSTIC DATA: WBC at the time of admission 20, today is 8, hemoglobin 12, and platelets 218,000. UA 10 to 15 red blood cells and 5 to 10 white blood cells. BUN 21 and creatinine 0.8. Liver function test unremarkable. Urine culture grew mixed gram-negative rods. ASSESSMENT: The patient is a 57-year-old male with: 1. Leukocytosis that has improved mostly due to acute stress. 2. The patient has positive urine culture due to suprapubic catheter, asymptomatic at this time. 3. Afebrile. 4. History of upper gastrointestinal bleed, being followed by GI. PLAN: 1. We will monitor the patient off of antibiotics. 2. Monitor CBC. 3. Monitor BMP. 4. Monitor cultures. 5. Monitor chest x-ray. 6. Based on the patient's clinical course and labs, we will do further recommendation. Thank you, Dr. Bryant, for allowing me to participate in the care of this patient. I will follow the patient with you during this hospitalization. Peterson Cabrera M.D. DR: Kyle JOB#: [id number] CC:
[2017-06-06 23:47] VITALS: BP 146/89
[2017-06-07 03:47] VITALS: BP 137/91
[2017-06-07 08:00] VITALS: BP 131/86
[2017-06-07] MEDS: D5NS 1,000 ML IV SCH ×2 (08:30→18:30)
--- NOTE | 2017-06-07 09:42 | General Progress Note ---
Assessment/Plan Assessment/Plan #. Anemia due to underlying gastrointestinal bleed. Mild at this time. --> Continue to monitor hemoglobin and hematocrit. --> Trend and transfuse if hgb <7 #. Leukocytosis, potentially secondary to underlying urinary tract infection. --> Resolved. --> The patient has a suprapubic catheter in place, potentially secondary to chronic infection. --> May consider Infectious Disease service followup, and continue the patient on ceftriaxone. #. Neutrophilia, secondary to likely infection. #. Paraplegia. --> The patient is from [facility] with coffee-grounds emesis. #. Diabetes mellitus. Currently, blood sugar is 124. --> Continue to closely monitor before meals, at bedtime insulin sliding scale. #. Deep venous thrombosis prophylaxis. --> S/P venous duplex. Results were negative. Subjective Date patient seen: Jun 06, 2017 Constitutional: Denies: no symptoms, chills, diaphoresis, fever, malaise, weakness, other HEENT: Denies: no symptoms, eye pain, blurred vision, tearing, double vision, ear pain, ear discharge, nose pain, nose congestion, throat pain, throat swelling, mouth pain, mouth swelling, other Cardiovascular: Denies: no symptoms, chest pain, edema, irregular heart rate, lightheadedness, palpitations, syncope, other Respiratory: Denies: no symptoms, cough, orthopnea, shortness of breath, SOB with excertion, SOB at rest, sputum, stridor, wheezing, other Gastrointestinal/Abdominal: Denies: no symptoms, abdomen distended, abdominal pain, black stools, tarry stools, blood in stool, constipated, diarrhea, difficulty swallowing, nausea, poor appetite, poor fluid intake, rectal bleeding , vomiting, other Genitourinary: Denies: no symptoms, burning, discharge, frequency, flank pain, hematuria, incontinence, pain, urgency, other Hematologic/Lymphatic: Reports: anemia Allergies: Coded Allergies: CIPROFLOXACIN (Verified Allergy, Unknown, 08/23/15) Subjective S/P venous duplex. No fever. NAD. Objective Last 24 Hour Vital Signs Date Time Temp Pulse Resp B/P (MAP) Pulse Ox O2 Delivery O2 Flow Rate FiO2 06/07/17 08:00 96.8 67 20 131/86 95 96.8 06/07/17 03:47 97.3 76 20 137/91 99 Room Air 97.3 75 06/06/17 23:47 97.7 84 20 146/89 94 Room Air 97.7 84 06/06/17 16:00 97.2 74 20 134/94 99 97.2 06/06/17 12:00 97.7 73 20 130/87 100 97.7 Intake and Output 06/06/17 06/07/17 19:00 07:00 Intake Total 1045 ml 950 ml Balance 1045 ml 950 ml Free Water 260 ml IV Total 100 ml 300 ml Tube Feeding 685 ml 650 ml # Voids 3 Height (Feet): 5 Height (Inches): 6.00 Weight (Pounds): 220 General Appearance: no apparent distress Cardiovascular: normal rate Respiratory/Chest: decreased breath sounds Abdomen: non tender, soft Nathan Ludwig Jun 07, 2017 09:42
--- NOTE | 2017-06-07 10:52 | Infectious Diseases Prog Note ---
Assessment/Plan Assessment/Plan ASSESSMENT: The patient is a 57-year-old male with: Leukocytosis , SP 2/2 acute stress Urine culture: mixed gram-negative rods asymptomatic at this time. suprapubic catheter Afebrile. History of upper gastrointestinal bleed, being followed by GI. Quadriplegia History of CVA Seizure disorder Suprapubic catheter History of hypertension History of DVT COPD GERD Contracture of all four extremities Diabetes Anxiety PLAN: will monitor the patient off of antibiotics. Monitor CBC. Monitor BMP. Monitor cultures. Monitor chest x-ray. Subjective Allergies: Coded Allergies: CIPROFLOXACIN (Verified Allergy, Unknown, 08/23/15) Objective Vital Signs Last 24 Hour Vital Signs Date Time Temp Pulse Resp B/P (MAP) Pulse Ox O2 Delivery O2 Flow Rate FiO2 06/07/17 08:00 96.8 67 20 131/86 95 96.8 06/07/17 03:47 97.3 76 20 137/91 99 Room Air 97.3 75 06/06/17 23:47 97.7 84 20 146/89 94 Room Air 97.7 84 06/06/17 16:00 97.2 74 20 134/94 99 97.2 06/06/17 12:00 97.7 73 20 130/87 100 97.7 Height (Feet): 5 Height (Inches): 6.00 Weight (Pounds): 220 Microbiology Date/Time Source Procedure Growth Status 06/04/17 16:22 Nasal Nares MRSA Culture - Final NO METHICILLIN RESISTANT STAPH AUREUS... Complete 06/04/17 15:45 Urine,Clean Catch Urine Culture - Final Proteus Mirabilis Escherichia Coli Complete 06/04/17 16:22 Rectum VRE Culture - Final NO VANCOMYCIN RESISTANT ENTEROCOCCUS ... Complete Current Medications Medications (Trade) Dose Ordered Sig/Fab Route PRN Reason Start Time Stop Time Status Last Admin Dose Admin Acetaminophen (Tylenol) 650 mg DAILYPRN PRN ORAL Mild Pain (Pain Scale 1-3) 06/05/17 16:30 07/05/17 16:29 Acetaminophen (Tylenol) 650 mg Q4H PRN ORAL fever (temp>100.5F) 06/05/17 16:30 07/05/17 16:29 Al Hydroxide/Mg Hydroxide (Mylanta II) 30 ml Q6H PRN ORAL dyspepsia 06/05/17 17:15 07/04/17 17:14 Albuterol Sulfate (Proventil MDI) 1 puff Q4H PRN INH Shortness of Breath 06/05/17 16:30 07/04/17 16:29 Dextrose (Dextrose 50%) STAT PRN IV Hypoglycemia 06/05/17 16:30 07/04/17 16:29 Dextrose/Sodium Chloride 1,000 ml @ 100 mls/hr Q10H IV 06/05/17 16:30 07/04/17 17:59 06/07/17 08:30 Diphenhydramine HCl (Benadryl) 25 mg Q6H PRN ORAL Itching/Pruritis 06/05/17 16:30 07/04/17 16:29 Morphine Sulfate (Morphine Sulfate) 2 mg Q4H PRN IVP Severe Pain (Pain Scale 7-10) 06/05/17 16:30 06/11/17 16:29 Nitroglycerin (Ntg) 0.4 mg Q5M X 3 DOSES PRN SL Prn Chest Pain 06/05/17 16:30 07/04/17 17:14 Ondansetron HCl (Zofran) 4 mg Q6H PRN IVP Nausea & Vomiting 06/05/17 16:30 07/04/17 16:29 Polyethylene Glycol (Miralax) 17 gm HSPRN PRN ORAL Constipation 06/05/17 17:15 07/04/17 17:14 Risperidone (RisperDAL) 1 mg BEDTIME PRN ORAL For Anxiety 06/05/17 18:30 07/05/17 18:29 Temazepam (Restoril) 15 mg HSPRN PRN ORAL Insomnia 06/05/17 21:00 06/11/17 20:59 JACOBO RAPHAEL M.D. Jun 07, 2017 10:51
--- NOTE | 2017-06-07 11:59 | GI Progress Note ---
Assessment/Plan Problems: (1) Feeding by G-tube ICD Codes: Z93.1 - Gastrostomy status SNOMED: 170615027, 668625248 (2) Aphasia ICD Codes: R47.01 - Aphasia SNOMED: 88644247 (3) UGIB (upper gastrointestinal bleed) ICD Codes: K92.2 - Gastrointestinal hemorrhage, unspecified SNOMED: 57475993 Status: stable Status Narrative Discussed with Dr. Faust. Assessment/Plan GT clogged, changed yesterday. GT site care daily/prn no labs drawn defer EGD at this time given stable H&H with no active signs of bleed OB stool r/o GI bleed ppi prn transfusions GTFs per RD abx fu labs Subjective Subjective limited Objective Last 24 Hour Vital Signs Date Time Temp Pulse Resp B/P (MAP) Pulse Ox O2 Delivery O2 Flow Rate FiO2 06/07/17 08:00 96.8 67 20 131/86 95 96.8 06/07/17 03:47 97.3 76 20 137/91 99 Room Air 97.3 75 06/06/17 23:47 97.7 84 20 146/89 94 Room Air 97.7 84 06/06/17 16:00 97.2 74 20 134/94 99 97.2 06/06/17 12:00 97.7 73 20 130/87 100 97.7 Intake and Output 06/06/17 06/07/17 19:00 07:00 Intake Total 1045 ml 950 ml Balance 1045 ml 950 ml Free Water 260 ml IV Total 100 ml 300 ml Tube Feeding 685 ml 650 ml # Voids 3 Height (Feet): 5 Height (Inches): 6.00 Weight (Pounds): 220 General Appearance: WD/WN, no apparent distress, alert Cardiovascular: normal rate Respiratory/Chest: normal breath sounds, no respiratory distress Abdominal Exam: normal bowel sounds, non tender, soft, GT site - c/d/i Extremities: non-tender Chanell Ocampo N.P. Jun 07, 2017 11:59
[2017-06-07 12:00] VITALS: BP 138/88
[2017-06-07] MEDS ORDERED: Tubing IV Secondary IV ONE (15:12)
[2017-06-07] MEDS ORDERED: NS 275ml ONE (15:12)
--- NOTE | 2017-06-07 15:18 | Pulmonology Progress Note ---
Assessment/Plan Problems: (1) UGIB (upper gastrointestinal bleed) (2) UTI (urinary tract infection) (3) Encephalopathy chronic (4) Aphasia (5) Feeding by G-tube (6) History of CVA (cerebrovascular accident) Assessment/Plan f/u h/h prbc prn GI evaluation appreciated h2 blockers. suprapubic catheter not functioning Subjective ROS Limited/Unobtainable: No Constitutional: Reports: no symptoms HEENT: Repors: no symptoms Respiratory: Reports: no symptoms Allergies: Coded Allergies: CIPROFLOXACIN (Verified Allergy, Unknown, 08/23/15) Objective Last 24 Hour Vital Signs Date Time Temp Pulse Resp B/P (MAP) Pulse Ox O2 Delivery O2 Flow Rate FiO2 06/07/17 12:00 97.5 70 20 138/88 99 97.5 06/07/17 08:00 96.8 67 20 131/86 95 96.8 06/07/17 03:47 97.3 76 20 137/91 99 Room Air 97.3 75 06/06/17 23:47 97.7 84 20 146/89 94 Room Air 97.7 84 06/06/17 16:00 97.2 74 20 134/94 99 97.2 Intake and Output 06/06/17 06/07/17 19:00 07:00 Intake Total 1045 ml 950 ml Balance 1045 ml 950 ml Free Water 260 ml IV Total 100 ml 300 ml Tube Feeding 685 ml 650 ml # Voids 3 Objective General Appearance: WD/WN, Lines, tubes and drains: peripheral Neck: non-tender, normal inspection Respiratory/Chest: chest wall non-tender, lungs clear Breasts: no masses Cardiovascular/Chest: normal peripheral pulses, normal rate Abdomen: normal bowel sounds, suprapubic catheter Genitourinary/Rectal: normal genital exam Skin Exam: normal pigmentation Microbiology Date/Time Source Procedure Growth Status 06/04/17 16:22 Nasal Nares MRSA Culture - Final NO METHICILLIN RESISTANT STAPH AUREUS... Complete 06/04/17 15:45 Urine,Clean Catch Urine Culture - Final Proteus Mirabilis Escherichia Coli Complete 06/04/17 16:22 Rectum VRE Culture - Final NO VANCOMYCIN RESISTANT ENTEROCOCCUS ... Complete Current Medications Medications (Trade) Dose Ordered Sig/Fab Route PRN Reason Start Time Stop Time Status Last Admin Dose Admin Acetaminophen (Tylenol) 650 mg DAILYPRN PRN ORAL Mild Pain (Pain Scale 1-3) 06/05/17 16:30 07/05/17 16:29 Acetaminophen (Tylenol) 650 mg Q4H PRN ORAL fever (temp>100.5F) 06/05/17 16:30 07/05/17 16:29 Al Hydroxide/Mg Hydroxide (Mylanta II) 30 ml Q6H PRN ORAL dyspepsia 06/05/17 17:15 07/04/17 17:14 Albuterol Sulfate (Proventil MDI) 1 puff Q4H PRN INH Shortness of Breath 06/05/17 16:30 07/04/17 16:29 Dextrose (Dextrose 50%) STAT PRN IV Hypoglycemia 06/05/17 16:30 07/04/17 16:29 Dextrose/Sodium Chloride 1,000 ml @ 100 mls/hr Q10H IV 06/05/17 16:30 07/04/17 17:59 06/07/17 08:30 Diphenhydramine HCl (Benadryl) 25 mg Q6H PRN ORAL Itching/Pruritis 06/05/17 16:30 07/04/17 16:29 Morphine Sulfate (Morphine Sulfate) 2 mg Q4H PRN IVP Severe Pain (Pain Scale 7-10) 06/05/17 16:30 06/11/17 16:29 Nitroglycerin (Ntg) 0.4 mg Q5M X 3 DOSES PRN SL Prn Chest Pain 06/05/17 16:30 07/04/17 17:14 Ondansetron HCl (Zofran) 4 mg Q6H PRN IVP Nausea & Vomiting 06/05/17 16:30 07/04/17 16:29 Polyethylene Glycol (Miralax) 17 gm HSPRN PRN ORAL Constipation 06/05/17 17:15 07/04/17 17:14 Risperidone (RisperDAL) 1 mg BEDTIME PRN ORAL For Anxiety 06/05/17 18:30 07/05/17 18:29 Temazepam (Restoril) 15 mg HSPRN PRN ORAL Insomnia 06/05/17 21:00 06/11/17 20:59 LISETTE SCOTT Jun 07, 2017 15:18
[2017-06-07 16:00] VITALS: BP 130/88
[2017-06-07 20:00] VITALS: BP 138/88
--- NOTE | 2017-06-07 22:45 | Progress Note ---
DATE: 06/07/2017 SUBJECTIVE: The patient is calmer and less agitated, still bizarre and is minimally verbal. MENTAL STATUS EXAMINATION: The patient is alert, confused. Mood is neutral. Affect is constricted. Congruent with mood. Thought process is concrete. Thought content, no suicidal or homicidal ideations. ASSESSMENT: 1. Encephalopathy. 2. Cognitive impairment. PLAN: We will continue the current medications. Provide the patient with supportive therapy and reality orientation. Chanel Ingram M.D. DR: Ely JOB#: [id number] CC:
--- NOTE | 2017-06-07 23:47 | General Progress Note ---
Assessment/Plan Assessment/Plan #. Anemia due to underlying gastrointestinal bleed. Mild at this time. --> Continue to monitor hemoglobin and hematocrit. --> Trend and transfuse if hgb <7 --> Has not required blood transfusion the past few days. #. Leukocytosis, potentially secondary to underlying urinary tract infection. --> Resolved. --> The patient has a suprapubic catheter in place, potentially secondary to chronic infection. --> May consider Infectious Disease service followup, and continue the patient on ceftriaxone. #. Neutrophilia, secondary to likely infection. #. Paraplegia. --> The patient is from [facility] with coffee-grounds emesis. #. Diabetes mellitus. Currently, blood sugar is 124. --> Continue to closely monitor before meals, at bedtime insulin sliding scale. #. Deep venous thrombosis prophylaxis. --> S/P venous duplex. Results were negative. Subjective Date patient seen: Jun 07, 2017 Constitutional: Denies: no symptoms, chills, diaphoresis, fever, malaise, weakness, other HEENT: Denies: no symptoms, eye pain, blurred vision, tearing, double vision, ear pain, ear discharge, nose pain, nose congestion, throat pain, throat swelling, mouth pain, mouth swelling, other Cardiovascular: Denies: no symptoms, chest pain, edema, irregular heart rate, lightheadedness, palpitations, syncope, other Respiratory: Denies: no symptoms, cough, orthopnea, shortness of breath, SOB with excertion, SOB at rest, sputum, stridor, wheezing, other Gastrointestinal/Abdominal: Denies: no symptoms, abdomen distended, abdominal pain, black stools, tarry stools, blood in stool, constipated, diarrhea, difficulty swallowing, nausea, poor appetite, poor fluid intake, rectal bleeding , vomiting, other Genitourinary: Denies: no symptoms, burning, discharge, frequency, flank pain, hematuria, incontinence, pain, urgency, other Hematologic/Lymphatic: Reports: anemia Allergies: Coded Allergies: CIPROFLOXACIN (Verified Allergy, Unknown, 08/23/15) Subjective Nonverbal. Confused. No fever or chills. Objective Last 24 Hour Vital Signs Date Time Temp Pulse Resp B/P (MAP) Pulse Ox O2 Delivery O2 Flow Rate FiO2 06/07/17 20:00 73 19 138/88 73 06/07/17 16:00 Room Air 06/07/17 16:00 97.7 73 20 130/88 100 97.7 06/07/17 12:00 97.5 70 20 138/88 99 97.5 06/07/17 12:00 Room Air 06/07/17 08:00 96.8 67 20 131/86 95 96.8 06/07/17 08:00 Room Air 06/07/17 03:47 97.3 76 20 137/91 99 Room Air 97.3 75 06/06/17 23:47 97.7 84 20 146/89 94 Room Air 97.7 84 Intake and Output 06/06/17 06/07/17 19:00 07:00 Intake Total 1045 ml 1015 ml Balance 1045 ml 1015 ml Free Water 260 ml IV Total 100 ml 300 ml Tube Feeding 685 ml 715 ml # Voids 3 Height (Feet): 5 Height (Inches): 6.00 Weight (Pounds): 220 General Appearance: no apparent distress Cardiovascular: normal rate Respiratory/Chest: decreased breath sounds Abdomen: non tender Nathan Ludwig Jun 07, 2017 23:47
[2017-06-08 03:47] VITALS: BP 139/78
[2017-06-08] MEDS: D5NS 1,000 ML IV SCH ×4 (04:58→22:00)
[2017-06-08 08:17] VITALS: BP 127/87
[2017-06-08 11:34] VITALS: BP 144/93
--- NOTE | 2017-06-08 12:30 | Pulmonology Progress Note ---
Assessment/Plan Assessment/Plan ASSESSMENT UGIB Encephalopathy chronic Aphasia Dysphagia, G tube s/p G tube change due to malfunctioning History of CVA with quadriplegia DM s/pubic catheter R lateral knee decub ulcer POA, un-stageable PLAN OF CARE [facility] floor IVF GI follows HH stable no further episodes of upper GI bleeding stool OB not collected EGD deferred due to stable HH G tube changed, G tube site care, strict aspiration precautions, GT feeding, monitor tolerance urology eval appreciated s/p catheter care, change q 2 month, s/p catheter care ID follows leukocytosis resolved in one day, likely stress related, urine cx + ; due to s/ catheter, no urinary complaints, keep off abx as per ID recs BS stable DVT GI prophayxsi wound care as per wound nurse recs dc today to SNF case discussed and evaluated by supervising physician Subjective Allergies: Coded Allergies: CIPROFLOXACIN (Verified Allergy, Unknown, 08/23/15) Subjective awaiting for discharge tolerates GT feeding no further episodes of GI bleeding Objective Last 24 Hour Vital Signs Date Time Temp Pulse Resp B/P (MAP) Pulse Ox O2 Delivery O2 Flow Rate FiO2 06/08/17 11:34 98.2 64 20 144/93 99 98.2 06/08/17 08:17 98.4 74 20 127/87 99 98.4 06/08/17 03:47 96.5 77 20 139/78 100 Room Air 96.5 72 74 06/07/17 20:00 73 19 138/88 73 06/07/17 16:00 Room Air 06/07/17 16:00 97.7 73 20 130/88 100 97.7 Intake and Output 06/07/17 06/08/17 19:00 07:00 Intake Total 2080 ml 2130 ml Balance 2080 ml 2130 ml Free Water 300 ml 150 ml IV Total 1000 ml 1200 ml Tube Feeding 780 ml 780 ml # Voids 3 3 General Appearance: no acute distress, other - bedridden awake, responsive, aphasic HEENT: normocephalic, atraumatic Respiratory/Chest: lungs clear - with moderate air exchange Cardiovascular: regular rhythm Abdomen: normal bowel sounds, soft, non tender - G tube Extremities: no edema 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: abnormal gait - bedridden , alert, responsive, other - quadriplegia, aphagia Current Medications Medications (Trade) Dose Ordered Sig/Fab Route PRN Reason Start Time Stop Time Status Last Admin Dose Admin Acetaminophen (Tylenol) 650 mg DAILYPRN PRN ORAL Mild Pain (Pain Scale 1-3) 06/05/17 16:30 07/05/17 16:29 Acetaminophen (Tylenol) 650 mg Q4H PRN ORAL fever (temp>100.5F) 06/05/17 16:30 07/05/17 16:29 Al Hydroxide/Mg Hydroxide (Mylanta II) 30 ml Q6H PRN ORAL dyspepsia 06/05/17 17:15 07/04/17 17:14 Albuterol Sulfate (Proventil MDI) 1 puff Q4H PRN INH Shortness of Breath 06/05/17 16:30 07/04/17 16:29 Dextrose (Dextrose 50%) STAT PRN IV Hypoglycemia 06/05/17 16:30 07/04/17 16:29 Dextrose/Sodium Chloride 1,000 ml @ 100 mls/hr Q10H IV 06/05/17 16:30 07/04/17 17:59 06/08/17 04:58 Diphenhydramine HCl (Benadryl) 25 mg Q6H PRN ORAL Itching/Pruritis 06/05/17 16:30 07/04/17 16:29 Morphine Sulfate (Morphine Sulfate) 2 mg Q4H PRN IVP Severe Pain (Pain Scale 7-10) 06/05/17 16:30 06/11/17 16:29 Nitroglycerin (Ntg) 0.4 mg Q5M X 3 DOSES PRN SL Prn Chest Pain 06/05/17 16:30 07/04/17 17:14 Ondansetron HCl (Zofran) 4 mg Q6H PRN IVP Nausea & Vomiting 06/05/17 16:30 07/04/17 16:29 Polyethylene Glycol (Miralax) 17 gm HSPRN PRN ORAL Constipation 06/05/17 17:15 07/04/17 17:14 Risperidone (RisperDAL) 1 mg BEDTIME PRN ORAL For Anxiety 06/05/17 18:30 07/05/17 18:29 Temazepam (Restoril) 15 mg HSPRN PRN ORAL Insomnia 06/05/17 21:00 06/11/17 20:59 Ann Marie Lees NP ([facility]) Jun 08, 2017 12:30
--- NOTE | 2017-06-08 13:56 | GI Progress Note ---
Assessment/Plan Problems: (1) Feeding by G-tube ICD Codes: Z93.1 - Gastrostomy status SNOMED: 511224834, 699369342 (2) Aphasia ICD Codes: R47.01 - Aphasia SNOMED: 27398116 (3) UGIB (upper gastrointestinal bleed) ICD Codes: K92.2 - Gastrointestinal hemorrhage, unspecified SNOMED: 94192479 Status: stable Status Narrative Discussed with Dr. Faust. Assessment/Plan GT changed. GT site care daily/prn no labs drawn defer EGD at this time given stable H&H with no active signs of bleed OB stool r/o GI bleed >> had BM, but not collected ppi prn transfusions GTFs per RD abx fu labs Subjective Subjective limited Objective Last 24 Hour Vital Signs Date Time Temp Pulse Resp B/P (MAP) Pulse Ox O2 Delivery O2 Flow Rate FiO2 06/08/17 11:34 98.2 64 20 144/93 99 98.2 06/08/17 08:17 98.4 74 20 127/87 99 98.4 06/08/17 03:47 96.5 77 20 139/78 100 Room Air 96.5 72 74 06/07/17 20:00 73 19 138/88 73 06/07/17 16:00 Room Air 06/07/17 16:00 97.7 73 20 130/88 100 97.7 Intake and Output 06/07/17 06/08/17 19:00 07:00 Intake Total 2080 ml 2130 ml Balance 2080 ml 2130 ml Free Water 300 ml 150 ml IV Total 1000 ml 1200 ml Tube Feeding 780 ml 780 ml # Voids 3 3 Height (Feet): 5 Height (Inches): 6.00 Weight (Pounds): 220 General Appearance: WD/WN, no apparent distress, alert Cardiovascular: normal rate Respiratory/Chest: normal breath sounds, no respiratory distress Abdominal Exam: normal bowel sounds, non tender, soft, GT site - c/d/i Extremities: normal range of motion, non-tender Chanell Ocampo N.P. Jun 08, 2017 13:56
--- NOTE | 2017-06-08 14:57 | Infectious Diseases Prog Note ---
Assessment/Plan Assessment/Plan ASSESSMENT: The patient is a 57-year-old male with: Leukocytosis , SP 2/2 acute stress Urine culture: mixed gram-negative rods asymptomatic at this time. suprapubic catheter Afebrile. History of upper gastrointestinal bleed, being followed by GI. Quadriplegia History of CVA Seizure disorder Suprapubic catheter History of hypertension History of DVT COPD GERD Contracture of all four extremities Diabetes Anxiety PLAN: will monitor the patient off of antibiotics. Monitor CBC. Monitor BMP. Monitor cultures. Monitor chest x-ray. Subjective Constitutional: Denies: no symptoms, fever, chills, fatigue, anorexia, drenching sweats, other Allergies: Coded Allergies: CIPROFLOXACIN (Verified Allergy, Unknown, 08/23/15) Objective Vital Signs Last 24 Hour Vital Signs Date Time Temp Pulse Resp B/P (MAP) Pulse Ox O2 Delivery O2 Flow Rate FiO2 06/08/17 11:34 98.2 64 20 144/93 99 98.2 06/08/17 08:17 98.4 74 20 127/87 99 98.4 06/08/17 03:47 96.5 77 20 139/78 100 Room Air 96.5 72 74 06/07/17 20:00 73 19 138/88 73 06/07/17 16:00 Room Air 06/07/17 16:00 97.7 73 20 130/88 100 97.7 Height (Feet): 5 Height (Inches): 6.00 Weight (Pounds): 220 HEENT: anicteric Respiratory/Chest: no respiratory distress Cardiovascular: regular rhythm Abdomen: no organomegaly Current Medications Medications (Trade) Dose Ordered Sig/Fab Route PRN Reason Start Time Stop Time Status Last Admin Dose Admin Acetaminophen (Tylenol) 650 mg DAILYPRN PRN ORAL Mild Pain (Pain Scale 1-3) 06/05/17 16:30 07/05/17 16:29 Acetaminophen (Tylenol) 650 mg Q4H PRN ORAL fever (temp>100.5F) 06/05/17 16:30 07/05/17 16:29 Al Hydroxide/Mg Hydroxide (Mylanta II) 30 ml Q6H PRN ORAL dyspepsia 06/05/17 17:15 07/04/17 17:14 Albuterol Sulfate (Proventil MDI) 1 puff Q4H PRN INH Shortness of Breath 06/05/17 16:30 07/04/17 16:29 Dextrose (Dextrose 50%) STAT PRN IV Hypoglycemia 06/05/17 16:30 07/04/17 16:29 Dextrose/Sodium Chloride 1,000 ml @ 100 mls/hr Q10H IV 06/05/17 16:30 07/04/17 17:59 06/08/17 04:58 Diphenhydramine HCl (Benadryl) 25 mg Q6H PRN ORAL Itching/Pruritis 06/05/17 16:30 07/04/17 16:29 Morphine Sulfate (Morphine Sulfate) 2 mg Q4H PRN IVP Severe Pain (Pain Scale 7-10) 06/05/17 16:30 06/11/17 16:29 Nitroglycerin (Ntg) 0.4 mg Q5M X 3 DOSES PRN SL Prn Chest Pain 06/05/17 16:30 07/04/17 17:14 Ondansetron HCl (Zofran) 4 mg Q6H PRN IVP Nausea & Vomiting 06/05/17 16:30 07/04/17 16:29 Polyethylene Glycol (Miralax) 17 gm HSPRN PRN ORAL Constipation 06/05/17 17:15 07/04/17 17:14 Risperidone (RisperDAL) 1 mg BEDTIME PRN ORAL For Anxiety 06/05/17 18:30 07/05/17 18:29 Temazepam (Restoril) 15 mg HSPRN PRN ORAL Insomnia 06/05/17 21:00 06/11/17 20:59 JACOBO RAPHAEL M.D. Jun 08, 2017 14:57
--- NOTE | 2017-06-08 15:08 | Urology Progress Note ---
Assessment/Plan Status: stable Assessment/Plan SP tube changed. OK for discharge. Subjective Date patient seen: Jun 08, 2017 Time patient seen: 15:07 ROS Limited/Unobtainable: Yes Allergies: Coded Allergies: CIPROFLOXACIN (Verified Allergy, Unknown, 08/23/15) Subjective doing ok, SP tube apparently not draining. Objective Last 24 Hour Vital Signs Date Time Temp Pulse Resp B/P (MAP) Pulse Ox O2 Delivery O2 Flow Rate FiO2 06/08/17 11:34 98.2 64 20 144/93 99 98.2 06/08/17 08:17 98.4 74 20 127/87 99 98.4 06/08/17 03:47 96.5 77 20 139/78 100 Room Air 96.5 72 74 06/07/17 20:00 73 19 138/88 73 06/07/17 16:00 Room Air 06/07/17 16:00 97.7 73 20 130/88 100 97.7 Intake and Output 06/07/17 06/08/17 19:00 07:00 Intake Total 2080 ml 2130 ml Balance 2080 ml 2130 ml Free Water 300 ml 150 ml IV Total 1000 ml 1200 ml Tube Feeding 780 ml 780 ml # Voids 3 3 Height (Feet): 5 Height (Inches): 6.00 Weight (Pounds): 220 General Appearance: mild distress Abdomen: soft Objective Under sterile conditions, old SP tube removed. New 16 hebrew passed easily. Immediate drainage of urine. 10 mL water in balloon. Sammy Lara M.D. Jun 08, 2017 15:08
[2017-06-08 16:03] VITALS: BP 158/90
[2017-06-08] MEDS ORDERED: Fleet's Enema 133ml RECTAL ONE (16:45)
[2017-06-08] MEDS ORDERED: Bisacodyl EC 5mg tab ORAL ONE (19:00)
[2017-06-08 20:00] VITALS: BP 121/88
--- NOTE | 2017-06-08 21:00 | Progress Note ---
DATE: 06/08/2017 SUBJECTIVE: The patient is the same. No behavior issues. The patient is irritable and uncooperative during the examination. No behavior issues. MENTAL STATUS EXAMINATION: The patient is alert and oriented times self and place. Mood is irritable. Affect is constricted, congruent with mood. Thought process is concrete. Thought content, no suicidal or homicidal ideations. ASSESSMENT: 1. Cognitive impairment. 2. Mood disorder. PLAN: We will continue current medication. Provide the patient with supportive therapy and reality orientation. Chanel Ingram M.D. DR: Luana JOB#: [id number] CC:
[2017-06-08] MEDS: Heparin 5000 units/ml inj SUBQ SCH (22:05)
[2017-06-09 04:00] VITALS: BP 125/83
[2017-06-09 08:36] VITALS: BP 124/84
--- NOTE | 2017-06-09 08:44 | Pulmonology Progress Note ---
Assessment/Plan Assessment/Plan ASSESSMENT UGIB Encephalopathy chronic Aphasia Dysphagia, G tube s/p G tube change due to malfunctioning History of CVA with quadriplegia DM s/pubic catheter, s/p change 06/08 due to malfunctioning ( not draining) R lateral knee decub ulcer POA, un-stageable PLAN OF CARE [facility] floor IVF GI follows HH stable no further episodes of upper GI bleeding stool OB not collected EGD deferred due to stable HH G tube changed, G tube site care, strict aspiration precautions, GT feeding, monitor tolerance urology eval appreciated s/p catheter care, change q 2 month, s/p catheter care ID follows leukocytosis resolved in one day, likely stress related, urine cx + ; due to s/ catheter, no urinary complaints, keep off abx as per ID recs BS stable DVT GI prophayxsi wound care as per wound nurse recs dc today to SNF case discussed and evaluated by supervising physician Subjective Allergies: Coded Allergies: CIPROFLOXACIN (Verified Allergy, Unknown, 08/23/15) Subjective awaiting for discharge tolerates GT feeding no further episodes of GI bleeding unable to be dc 06/08 but facility is accepting the patient today Objective Last 24 Hour Vital Signs Date Time Temp Pulse Resp B/P (MAP) Pulse Ox O2 Delivery O2 Flow Rate FiO2 06/09/17 08:36 97.7 71 19 124/84 96 97.7 06/09/17 04:00 97.0 80 19 125/83 99 Room Air 97.0 06/08/17 20:00 97.5 69 18 121/88 98 Room Air 97.5 06/08/17 16:03 98.8 63 20 158/90 100 98.8 06/08/17 11:34 98.2 64 20 144/93 99 98.2 Intake and Output 06/08/17 06/09/17 19:00 07:00 Intake Total 65 ml 775 ml Output Total 500 ml 450 ml Balance -435 ml 325 ml Free Water 60 ml Tube Feeding 65 ml 715 ml Output Urine Total 500 ml 450 ml # Voids 1 # Bowel Movements 1 Objective General Appearance: no acute distress, bedridden awake, responsive, aphasic HEENT: normocephalic, atraumatic Respiratory/Chest: lungs clear - with moderate air exchange Cardiovascular: regular rhythm Abdomen: normal bowel sounds, soft, non tender - G tube Extremities: no edema 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: abnormal gait - bedridden , alert, responsive, other - quadriplegia, aphasia Laboratory Tests 06/09/17 04:00: Stool Occult Blood [Pending] Current Medications Medications (Trade) Dose Ordered Sig/Fab Route PRN Reason Start Time Stop Time Status Last Admin Dose Admin Acetaminophen (Tylenol) 650 mg DAILYPRN PRN ORAL Mild Pain (Pain Scale 1-3) 06/05/17 16:30 07/05/17 16:29 Acetaminophen (Tylenol) 650 mg Q4H PRN ORAL fever (temp>100.5F) 06/05/17 16:30 07/05/17 16:29 Al Hydroxide/Mg Hydroxide (Mylanta II) 30 ml Q6H PRN ORAL dyspepsia 06/05/17 17:15 07/04/17 17:14 Albuterol Sulfate (Proventil MDI) 1 puff Q4H PRN INH Shortness of Breath 06/05/17 16:30 07/04/17 16:29 Dextrose (Dextrose 50%) STAT PRN IV Hypoglycemia 06/05/17 16:30 07/04/17 16:29 Dextrose/Sodium Chloride 1,000 ml @ 40 mls/hr Q24H IV 06/08/17 16:30 07/08/17 16:29 Diphenhydramine HCl (Benadryl) 25 mg Q6H PRN ORAL Itching/Pruritis 06/05/17 16:30 07/04/17 16:29 Heparin Sodium (Porcine) (Heparin 5000 units/ml) 5,000 units EVERY 12 HOURS SUBQ 06/08/17 21:00 07/08/17 20:59 06/08/17 22:05 Morphine Sulfate (Morphine Sulfate) 2 mg Q4H PRN IVP Severe Pain (Pain Scale 7-10) 06/05/17 16:30 06/11/17 16:29 Nitroglycerin (Ntg) 0.4 mg Q5M X 3 DOSES PRN SL Prn Chest Pain 06/05/17 16:30 07/04/17 17:14 Ondansetron HCl (Zofran) 4 mg Q6H PRN IVP Nausea & Vomiting 06/05/17 16:30 07/04/17 16:29 Polyethylene Glycol (Miralax) 17 gm HSPRN PRN ORAL Constipation 06/05/17 17:15 07/04/17 17:14 Risperidone (RisperDAL) 1 mg BEDTIME PRN ORAL For Anxiety 06/05/17 18:30 07/05/17 18:29 Temazepam (Restoril) 15 mg HSPRN PRN ORAL Insomnia 06/05/17 21:00 06/11/17 20:59 Nabeel O[facility]aint [facility]Ann Marie Torres NP Jun 09, 2017 08:44
--- NOTE | 2017-06-09 09:46 | General Progress Note ---
Assessment/Plan Problem List: (1) gtube malfunction (2) Encephalopathy chronic ICD Codes: G93.49 - Other encephalopathy SNOMED: 79696492 (3) History of CVA (cerebrovascular accident) ICD Codes: Z86.73 - Personal history of transient ischemic attack (TIA), and cerebral infarction without residual deficits SNOMED: 802956642 (4) Aphasia ICD Codes: R47.01 - Aphasia SNOMED: 76586145 Assessment/Plan GT changed. GT site care daily/prn no labs drawn defer EGD at this time given stable H&H with no active signs of bleed OB stool r/o GI bleed >> had BM, but not collected ppi prn transfusions GTF abx fu labs Subjective ROS Limited/Unobtainable: No Allergies: Coded Allergies: CIPROFLOXACIN (Verified Allergy, Unknown, 08/23/15) Objective Last 24 Hour Vital Signs Date Time Temp Pulse Resp B/P (MAP) Pulse Ox O2 Delivery O2 Flow Rate FiO2 06/09/17 08:36 97.7 71 19 124/84 96 97.7 06/09/17 04:00 97.0 80 19 125/83 99 Room Air 97.0 06/08/17 20:00 97.5 69 18 121/88 98 Room Air 97.5 06/08/17 16:03 98.8 63 20 158/90 100 98.8 06/08/17 11:34 98.2 64 20 144/93 99 98.2 Intake and Output 06/08/17 06/09/17 19:00 07:00 Intake Total 65 ml 775 ml Output Total 500 ml 450 ml Balance -435 ml 325 ml Free Water 60 ml Tube Feeding 65 ml 715 ml Output Urine Total 500 ml 450 ml # Voids 1 # Bowel Movements 1 Laboratory Tests 06/09/17 04:00: Stool Occult Blood [Pending] Height (Feet): 5 Height (Inches): 6.00 Weight (Pounds): 220 General Appearance: no apparent distress EENT: normal ENT inspection Neck: supple Cardiovascular: normal rate Respiratory/Chest: decreased breath sounds Abdomen: normal bowel sounds, non tender, soft Extremities: non-tender SCOT HUFF Jun 09, 2017 09:46
[2017-06-09] MEDS: Heparin 5000 units/ml inj SUBQ SCH (09:55)
--- NOTE | 2017-06-09 09:56 | General Progress Note ---
Assessment/Plan Assessment/Plan #. Anemia due to underlying gastrointestinal bleed. Mild at this time. --> Continue to monitor hemoglobin and hematocrit. --> Trend and transfuse if hgb <7 --> Anemia mild, does not need prbc right now. #. Leukocytosis, potentially secondary to underlying urinary tract infection. --> Resolved. --> The patient has a suprapubic catheter in place, potentially secondary to chronic infection. --> May consider Infectious Disease service followup, and continue the patient on ceftriaxone. #. Neutrophilia, secondary to likely infection. #. Paraplegia. --> The patient is from [facility] with coffee-grounds emesis. #. Diabetes mellitus. Currently, blood sugar is 124. --> Continue to closely monitor before meals, at bedtime insulin sliding scale. #. Deep venous thrombosis prophylaxis. --> S/P venous duplex. Results were negative. Subjective Date patient seen: Jun 08, 2017 Constitutional: Denies: no symptoms, chills, diaphoresis, fever, malaise, weakness, other HEENT: Denies: no symptoms, eye pain, blurred vision, tearing, double vision, ear pain, ear discharge, nose pain, nose congestion, throat pain, throat swelling, mouth pain, mouth swelling, other Cardiovascular: Denies: no symptoms, chest pain, edema, irregular heart rate, lightheadedness, palpitations, syncope, other Respiratory: Denies: no symptoms, cough, orthopnea, shortness of breath, SOB with excertion, SOB at rest, sputum, stridor, wheezing, other Gastrointestinal/Abdominal: Denies: no symptoms, abdomen distended, abdominal pain, black stools, tarry stools, blood in stool, constipated, diarrhea, difficulty swallowing, nausea, poor appetite, poor fluid intake, rectal bleeding , vomiting, other Genitourinary: Denies: no symptoms, burning, discharge, frequency, flank pain, hematuria, incontinence, pain, urgency, other 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: Denies: no symptoms, anxiety, depressed, emotional problems, headache, numbness, paresthesia, pre-existing deficit, seizure, tingling, tremors, weakness, other Allergies: Coded Allergies: CIPROFLOXACIN (Verified Allergy, Unknown, 08/23/15) Subjective No major events overnight. No fever or chills. Objective Last 24 Hour Vital Signs Date Time Temp Pulse Resp B/P (MAP) Pulse Ox O2 Delivery O2 Flow Rate FiO2 06/09/17 08:36 97.7 71 19 124/84 96 97.7 06/09/17 04:00 97.0 80 19 125/83 99 Room Air 97.0 06/08/17 20:00 97.5 69 18 121/88 98 Room Air 97.5 06/08/17 16:03 98.8 63 20 158/90 100 98.8 06/08/17 11:34 98.2 64 20 144/93 99 98.2 Intake and Output 06/08/17 06/09/17 19:00 07:00 Intake Total 65 ml 775 ml Output Total 500 ml 450 ml Balance -435 ml 325 ml Free Water 60 ml Tube Feeding 65 ml 715 ml Output Urine Total 500 ml 450 ml # Voids 1 # Bowel Movements 1 Laboratory Tests 06/09/17 04:00: Stool Occult Blood [Pending] Height (Feet): 5 Height (Inches): 6.00 Weight (Pounds): 220 Nathan Ludwig Jun 09, 2017 09:55
[2017-06-09 11:39] VITALS: BP 123/79
[2017-06-09] MEDS ORDERED: Sterile Water Irrig 1000ml IRRIG ONE (13:18)
[2017-06-09] MEDS ORDERED: D5NS 1000ml IV ONE (13:18)
--- NOTE | 2017-06-09 23:59 | General Progress Note ---
Assessment/Plan Assessment/Plan #. Anemia due to underlying gastrointestinal bleed. --> Continue to monitor hemoglobin and hematocrit. --> Trend and transfuse if hgb <7 --> Anemia mild and hemoglobin levels have been near normal levels. --> No blood transfusion required at this time. #. Leukocytosis, potentially secondary to underlying urinary tract infection. --> Resolved. --> The patient has a suprapubic catheter in place, potentially secondary to chronic infection. --> May consider Infectious Disease service followup, and continue the patient on ceftriaxone. #. Neutrophilia, secondary to likely infection. #. Paraplegia. --> The patient is from [facility] with coffee-grounds emesis. #. Diabetes mellitus. Currently, blood sugar is 124. --> Continue to closely monitor before meals, at bedtime insulin sliding scale. #. Deep venous thrombosis prophylaxis. --> S/P venous duplex. Results were negative. Subjective Date patient seen: Jun 09, 2017 Constitutional: Denies: no symptoms, chills, diaphoresis, fever, malaise, weakness, other HEENT: Denies: no symptoms, eye pain, blurred vision, tearing, double vision, ear pain, ear discharge, nose pain, nose congestion, throat pain, throat swelling, mouth pain, mouth swelling, other Cardiovascular: Denies: no symptoms, chest pain, edema, irregular heart rate, lightheadedness, palpitations, syncope, other Respiratory: Denies: no symptoms, cough, orthopnea, shortness of breath, SOB with excertion, SOB at rest, sputum, stridor, wheezing, other Gastrointestinal/Abdominal: Denies: no symptoms, abdomen distended, abdominal pain, black stools, tarry stools, blood in stool, constipated, diarrhea, difficulty swallowing, nausea, poor appetite, poor fluid intake, rectal bleeding , vomiting, other Genitourinary: Denies: no symptoms, burning, discharge, frequency, flank pain, hematuria, incontinence, pain, urgency, other Allergies: Coded Allergies: CIPROFLOXACIN (Verified Allergy, Unknown, 08/23/15) Subjective Anemia mild. Pending discharge. NAD Objective Last 24 Hour Vital Signs Date Time Temp Pulse Resp B/P (MAP) Pulse Ox O2 Delivery O2 Flow Rate FiO2 06/09/17 11:39 97.8 80 20 123/79 97 97.8 06/09/17 08:36 97.7 71 19 124/84 96 97.7 06/09/17 04:00 97.0 80 19 125/83 99 Room Air 97.0 Intake and Output 06/08/17 06/09/17 19:00 07:00 Intake Total 65 ml 775 ml Output Total 500 ml 450 ml Balance -435 ml 325 ml Free Water 60 ml Tube Feeding 65 ml 715 ml Output Urine Total 500 ml 450 ml # Voids 1 # Bowel Movements 1 Laboratory Tests 06/09/17 04:00: Stool Occult Blood [Pending] Height (Feet): 5 Height (Inches): 6.00 Weight (Pounds): 220 General Appearance: no apparent distress Nathan Ludwig Jun 09, 2017 23:58
--- NOTE | 2017-06-11 22:37 | General Progress Note ---
Assessment/Plan Status Narrative 1. Cognitive impairment. 2. Mood disorder. PLAN: We will continue current medication. Provide the patient with supportive therapy and reality orientation. Subjective Date patient seen: Jun 09, 2017 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: Reports: anxiety, depressed, emotional problems Allergies: Coded Allergies: CIPROFLOXACIN (Verified Allergy, Unknown, 08/23/15) Objective Height (Feet): 5 Height (Inches): 6.00 Weight (Pounds): 220 General Appearance: no apparent distress, alert, confused Chanel Ingram M.D. Jun 11, 2017 22:37
--- NOTE | 2017-06-13 09:54 | Discharge Summary ---
Discharge Summary Hospital Course Date of Admission Jun 04, 2017 at 15:42 Date of Discharge Jun 09, 2017 at 13:19 Admitting Diagnosis ugib HPI Tim Conti is a 57 year old male who was admitted on Jun 04, 2017 at 15:42 for Upper Gastrointestinal Bleed Hospital Course dc summary #[id number] Discharge Medications Continued Medications: Acetaminophen (Tylenol) 325 Mg Tab 650 MG ORAL DAILY PRN for For Pain Albuterol Sulfate (Ventolin Hfa) 18 Gm Hfa.aer.ad 1 PUFF INH EVERY 4 HOURS, #18 GM 0 Refills Bisacodyl (Dulcolax) 10 Mg Supp.rect 10 MG RC, SUPP Discharge Condition Upon Discharge: stable Discharge Disposition Patient was discharged to SNF/Subacute Facility(03) Discharge Diagnoses: Nabeel (Ann Marie Linton NP Jun 13, 2017 09:54
--- NOTE | 2017-06-14 02:15 | Discharge Summary 2 SIG ---
DATE OF ADMISSION: 06/04/2017 DATE OF DISCHARGE: 06/09/2017 REASON FOR ADMISSION: 57-year-old male with past medical history significant for diabetes mellitus type 2, CVA with quadriplegia, encephalopathy, aphasia, dysphagia, G-tube, and suprapubic catheter, was sent from the longterm [facility] for evaluation due to the episode of coffee-ground emesis. Upon presentation to the emergency department, the patient was afebrile, but tachycardic, and white blood count was 20.6. Urinalysis with possible evidence of UTI. Troponin was negative. Stable hemoglobin and hematocrit. Hemoglobin -14.2 and hematocrit- 42.6. Stable LFT and lipase. The patient was admitted with upper GI bleeding and possible urinary tract infection. HOSPITAL COURSE: The patient was admitted. The patient was started on IV fluids. Initially kept NPO. GI evaluation was requested. Hemoglobin and hematocrit were closely monitored. The patient was started on DVT prophylaxis. The patient had G-tube malfunctioning. G-tube was changed. G-tube site care provided daily and as needed. The patient was started on PPI. Hemoglobin and hematocrit were closely monitored. The patient was started on tube feeding and was able to tolerate it. EGD was deferred at that time, given stable hemoglobin and hematocrit and no active signs of bleeding. No episodes of coffee ground emesis in the hospital. Bowel regimen was instituted. The patient had bowel movement. Stool for OB was not collected. Recommended to collect stool for OB at the facility. ID closely followed. Leukocytosis resolved. According to the ID, leukocytosis was due to the acute stress and it resolved. The patient wqas asymptomatic and afebrile. Urine culture revealed Proteus and E. coli. Since the patient was asymptomatic and afebrile, ID specialist recommended to keep the patient off antibiotics. Urine culture likely contaminated secondary to suprapubic catheter. Urologist initially seen the patient for evaluation. He stated that given the patient's condition and his comorbidities, he was not a good candidate to be without any reliable urinary drainage. Suprapubic tube was changed at the facility and was working. The patient was voiding per penis as well with suprapubic tube in and it was not uncommon as per urologist. He recommended to continue suprapubic catheter care and change catheter every two months. Prior to discharge, urologist was called since the suprapubic tube apparently was not draining. Suprapubic tube was changed. The patient was cleared for discharge. The patient was on strict aspiration /reflux precaution. Blood sugar was stable. DVT and GI prophylaxis provided. Wound care provided as per wound care nurse recommendation for right lateral knee decubitus ulcer present on admission, un- stageable. The patient was stable for discharge back to longterm facility. FINAL DIAGNOSES: 1. Upper gastrointestinal bleeding 2. Chronic encephalopathy 3. Aphasia 4. Dysphagia, 5.Gastrostomy tube, status post gastrostomy tube change due to malfunctioning. 6. History of cerebrovascular accident with quadriplegia. 7. Diabetes mellitus. 8. Suprapubic catheter, status post change due to malfunctioning. 9. Right lateral knee decubitus ulcer present on admission, un-stageable. DISCHARGE MEDICATIONS: See medication reconciliation list. DISCHARGE INSTRUCTIONS: The patient was discharged to longterm facility. Follow up with medical doctor at the facility. Change the suprapubic catheter every two months as recommended by urologist. Recommended to collect stool OB and monitor for any signs of GI bleeding. Rigoberto Bryant M.D. Ann Marie KrugerHuntington HospitalMelissa N.PBaldemar DR: SEAMUS JOB#: [id number] CC: SABINA
== END 2017-06-09 13:19 | DRG 253 ==
LOC: EDBD 14:34 → EMR 15:25 → 2E 15:42 → EDBEDREQ 16:09 → 4W 06-05 16:10
PROC: 0D20XUZ Change Feeding Device in Upper Intestinal Tract, External Approach (ICD-10-PCS; principal; 2017-06-09)
DX: K92.2 Gastrointestinal hemorrhage, unspecified (principal); G93.49 Other encephalopathy; G82.50 Quadriplegia, unspecified; R47.01 Aphasia; L89.890 Pressure ulcer of other site, unstageable; K94.23 Gastrostomy malfunction; R13.10 Dysphagia, unspecified; N39.0 Urinary tract infection, site not specified; E11.9 Type 2 diabetes mellitus without complications; D50.0 Iron deficiency anemia secondary to blood loss (chronic); Z88.1 Allergy status to other antibiotic agents; G40.909 Epilepsy, unspecified, not intractable, without status epilepticus; Z86.718 Personal history of other venous thrombosis and embolism; I69.365 Other paralytic syndrome following cerebral infarction, bilateral; J44.9 Chronic obstructive pulmonary disease, unspecified; K21.9 Gastro-esophageal reflux disease without esophagitis; F29 Unspecified psychosis not due to a substance or known physiological condition; F41.9 Anxiety disorder, unspecified; Y83.3 Surgical operation with formation of external stoma as the cause of abnormal reaction of the patient, or of later complication, without mention of misadventure at the time of the procedure
CPT/HCPCS: 36415; 80053; 81003; 82150; 82270; 82550; 82553; 82962; 83690; 84484; 85007; 85025; 85060; 85610; 85730; 86850; 86900; 86901; 87081; 87086; 87181; 93005; 93970; 99285; J2405

== ENCOUNTER 2017-06-20 12:00 | Inpatient (IN) | payer MEDICAID ==
[~2017-06-20] VITALS: Ht 172.7 cm; Wt 81.6 kg
[2017-06-20 12:26] VITALS: BP 132/91
[2017-06-20] MEDS ORDERED: CRANBERRY450 M4 GT (13:08)
[2017-06-20] MEDS ORDERED: mylanta GT (13:12)
[2017-06-20 13:20] LABS: BASOPHILS % (AUTO) 2.2 % (0.0-2.0); EOSINOPHILS % (AUTO) 4.2 % (0.0-3.0); HEMATOCRIT 46.1 % (42.0-52.0); HEMOGLOBIN 15.1 G/DL (14.2-18.0); MEAN CORPUSCULAR VOLUME 90 FL (80-99); MONOCYTES % (AUTO) 7.8 % (1.0-10.0); NEUTROPHILS % (AUTO) 36.8 % (45.0-75.0); PLATELET COUNT 257 K/UL (150-450); RED CELL DISTRIBUTION WIDTH 13.7 % (11.6-14.8); WHITE BLOOD COUNT 5.9 K/UL (4.8-10.8)
[2017-06-20 13:33] LABS: ANION GAP 5 mmol/L (5-15); BLOOD UREA NITROGEN 27 mg/dL (7-18); CARBON DIOXIDE 29 MMOL/L (21-32); CHLORIDE 102 MMOL/L (98-107); CREATININE 0.8 MG/DL (0.55-1.30); POTASSIUM 4.7 MMOL/L (3.5-5.1); SODIUM 136 MMOL/L (136-145)
[2017-06-20 13:38] LABS: ALANINE AMINOTRANSFERASE 19 U/L (12-78); ALBUMIN 3.2 G/DL (3.4-5.0); ALBUMIN/GLOBULIN RATIO 0.5 (1.0-2.7); ALKALINE PHOSPHATASE 65 U/L (46-116); ASPARTATE AMINO TRANSFERASE 40 U/L (15-37); BILIRUBIN,TOTAL 0.3 MG/DL (0.2-1.0)
[2017-06-20 14:18] VITALS: BP 103/97
[2017-06-20] MEDS ORDERED: Solu-MEDROL 125mg Inj IVP ONE (14:30)
[2017-06-20] MEDS ORDERED: Albuterol ud Inhalation HHN ONE (14:30)
--- NOTE | 2017-06-20 15:03 | Emergency Room Report ---
History of Present Illness General Chief Complaint: Upper Respiratory Illness Source: Medical Record, EMS Present Illness HPI [facility] and concern of a pneumonia. The patient does have a history of COPD. The patient is nonverbal at baseline and is unable to give a history. Allergies: Coded Allergies: CIPROFLOXACIN (Verified Allergy, Unknown, 08/23/15) Patient History Past Medical History: see triage record, HTN, COPD, GERD, CVA/TIA, renal disease, other - Quadraplegia, hx DVT Past Surgical History: other - subprapubic catheter Social History: Denies: smoking, alcohol use, drug use Reviewed Nursing Documentation: PMH: Agreed, PSxH: Agreed Nursing Documentation-PMH Past Medical History: No History, Except For Hx Cardiac Problems: Yes - tachycardia, DVT Hx COPD: Yes - dyspnea, PE Hx Diabetes: Yes Hx Cancer: No Hx Gastrointestinal Problems: Yes - GERD Hx Neurological Problems: Yes - encephalopathy Hx Cerebrovascular Accident: Yes - quadriplegia, uti, dysphagia Hx Seizures: Yes - CRF Hx Paralysis: Yes - paraplegic Hx Speech Problem: Yes Hx Aphasia: Yes Review of Systems All Other Systems: limited Physical Exam Vital Signs Date Time Temp Pulse Resp B/P (MAP) Pulse Ox O2 Delivery O2 Flow Rate FiO2 06/20/17 11:47 98.4 89 14 132/91 95 Room Air 98.4 Sp02 EP Interpretation: reviewed, normal General Appearance: no apparent distress, alert, GCS 15, non-toxic Head: normocephalic, atraumatic Eyes: bilateral eye normal inspection, bilateral eye PERRL ENT: hearing grossly normal, no angioedema Neck: full range of motion, supple/symm/no masses Respiratory: no respiratory distress, no retraction, no accessory muscle use, rhonchi, wheezing Cardiovascular #1: regular rate, rhythm, no edema Gastrointestinal: normal bowel sounds, non tender, soft, non-distended, no guarding, no rebound Rectal: deferred Genitourinary: other - suprapubic catheter in place Musculoskeletal: other - contracted, quadraplegia Neurologic: alert, responsive, other - At baseline Psychiatric: mood/affect normal Skin: warm/dry, well hydrated, other - See RN skin exam Medical Decision Making Diagnostic Impression: Primary Impression: COPD exacerbation ER Course This patient presents with COPD exacerbation. He is wheezing on exam and coarse breath sounds. Given the patient's body habitus and quadriplegia and a very coarse breath sounds, I did go ahead and give the patient IV antibiotics as a precaution. The patient was also given a breathing treatment, steroids and admitted for further evaluation and treatment. Laboratory Tests Test 06/20/17 12:10 White Blood Count 5.9 K/UL (4.8-10.8) Red Blood Count 5.10 M/UL (4.70-6.10) Hemoglobin 15.1 G/DL (14.2-18.0) Hematocrit 46.1 % (42.0-52.0) Mean Corpuscular Volume 90 FL (80-99) Mean Corpuscular Hemoglobin 29.7 PG (27.0-31.0) Mean Corpuscular Hemoglobin Concent 32.9 G/DL (32.0-36.0) Red Cell Distribution Width 13.7 % (11.6-14.8) Platelet Count 257 K/UL (150-450) Mean Platelet Volume 9.7 FL (6.5-10.1) Neutrophils (%) (Auto) 36.8 % (45.0-75.0) L Lymphocytes (%) (Auto) 49.0 % (20.0-45.0) H Monocytes (%) (Auto) 7.8 % (1.0-10.0) Eosinophils (%) (Auto) 4.2 % (0.0-3.0) H Basophils (%) (Auto) 2.2 % (0.0-2.0) H Sodium Level 136 MMOL/L (136-145) Potassium Level 4.7 MMOL/L (3.5-5.1) Chloride Level 102 MMOL/L (98-107) Carbon Dioxide Level 29 MMOL/L (21-32) Anion Gap 5 mmol/L (5-15) Blood Urea Nitrogen 27 mg/dL (7-18) H Creatinine 0.8 MG/DL (0.55-1.30) Estimate Glomerular Filtration Rate > 60 mL/min (>60) Glucose Level 103 MG/DL (74-106) Calcium Level 9.0 MG/DL (8.5-10.1) Total Bilirubin 0.3 MG/DL (0.2-1.0) Aspartate Amino Transferase (AST) 40 U/L (15-37) H Alanine Aminotransferase (ALT) 19 U/L (12-78) Alkaline Phosphatase 65 U/L (46-116) Total Protein 9.3 G/DL (6.4-8.2) H Albumin 3.2 G/DL (3.4-5.0) L Globulin 6.1 g/dL Albumin/Globulin Ratio 0.5 (1.0-2.7) L EKG Diagnostic Results Rate: normal Rhythm: NSR ST Segments: no acute changes Rhythm Strip Diag. Results EP Interpretation: yes Rate: 80's Rhythm: NSR, no PVC's, no ectopy Chest X-Ray Diagnostic Results Chest X-Ray Diagnostic Results : Chest X-Ray Ordered: Yes # of Views/Limited/Complete: 1 View Indication: Other - cough EP Interpretation: No Interpretation: no consolidation, no effusion, no pneumothorax, no acute cardiopulmonary disease Impression: No acute disease Electronically Signed by: Radha Last Vital Signs Date Time Temp Pulse Resp B/P (MAP) Pulse Ox O2 Delivery O2 Flow Rate FiO2 06/20/17 14:40 80 20 98 Room Air 06/20/17 14:18 98.4 103/97 98.4 Disposition: ADMITTED INPATIENT Condition: Serious RAFAEL COOMBS D.O. Jun 20, 2017 15:03
--- NOTE | 2017-06-20 15:08 | Diagnostic Imaging Report ---
Indication: Cough Technique: One view of the chest Comparison: 03/10/2017 Findings: Again demonstrated is a healed fracture deformity of the left lateral fifth rib. Patient's chin obscures the upper mediastinum. The lungs and pleural spaces are clear. The heart size is upper limits of normal. The aorta is tortuous. Impression: No acute process
[2017-06-20] MEDS ORDERED: Albuterol/Ipratropium 3ml neb HHN PRN (15:30)
[2017-06-20] MEDS ORDERED: cefTRIAXone 1 GM in NS 55 ML IVPB ONE (15:30)
[2017-06-20] MEDS ORDERED: Miralax 17gm pkt ORAL PRN (15:30)
[2017-06-20] MEDS ORDERED: Morphine Sulfate 2mg/ml Inj IVP PRN (15:30)
[2017-06-20 16:14] VITALS: BP 123/76
[2017-06-20 17:49] VITALS: BP 115/76
[2017-06-20] MEDS ORDERED: Vancomycin 1500mg IVPB ONE (18:30)
[2017-06-20 18:56] VITALS: BP 116/86
[2017-06-20 19:37] VITALS: BP 125/88
[2017-06-20] MEDS: Cefepime HCl 2 GM in NS 110 ML IV SCH (21:18)
[2017-06-20] MEDS: Heparin 5000 units/ml inj SUBQ SCH (21:20)
[2017-06-21] MEDS ORDERED: Vancomycin 1 GM in D5W 275 ML IV SCH (00:30)
[2017-06-21 02:00] LABS: BILIRUBIN, URINE NEGATIVE (NEGATIVE); COLOR,URINE PALE YELLOW; GLUCOSE, URINE (UA) NEGATIVE (NEGATIVE); KETONES,URINE NEGATIVE (NEGATIVE); LEUKOCYTE ESTERASE ,URINE 3+ (NEGATIVE); NITRITE,URINE POSITIVE (NEGATIVE); PH,URINE 8 (4.5-8.0); UROBILINOGEN,URINE NORMAL MG/DL (0.0-1.0)
[2017-06-21 02:01] LABS: APPEARANCE,URINE SLIGHTLY CLOUDY; PROTEIN,URINE 1+ (NEGATIVE)
[2017-06-21] MEDS ORDERED: Vancomycin 1250mg/D5W 250ml IVPB SCH (06:00)
[2017-06-21 08:00] VITALS: BP 113/80
[2017-06-21] MEDS: Cefepime HCl 2 GM in NS 110 ML IV SCH (09:36)
[2017-06-21] MEDS: Heparin 5000 units/ml inj SUBQ SCH ×2 (09:37→20:41)
[2017-06-21 12:00] VITALS: BP 113/74
--- NOTE | 2017-06-21 12:16 | Consultation ---
History of Present Illness General Date patient seen: Jun 21, 2017 Chief Complaint: Upper Respiratory Illness Present Illness HPI 57 y/o M with hx of HTN, COPD, GERD, CVA/TIA, renal disease, hx fo uti, quadriplegia, non verbal, DVT, SNF resident, neurogenic bladder s/p suprapubic catheter presents to ED on with congestion Afebrile, no leukocytosis. U/a with significant pyuria. CXR neg. Allergies: Coded Allergies: CIPROFLOXACIN (Verified Allergy, Unknown, 08/23/15) Medication History Scheduled Cranberry Fruit Concentrate (Cranberry), 450 MG GT BID, (Reported) Docusate Sodium* (Docusate Sodium*), 100 MG GT TWICE A DAY, (Reported) Famotidine (Pepcid), 20 MG GT DAILY, (Reported) Multivitamin With Minerals (Multivitamins With Minerals*), 1 TAB GT DAILY, ( Reported) Na Phos,M-B/Na Phos,Di-Ba (Fleet Enema), 133 ML RC QOD, (Reported) Rivaroxaban (Xarelto), 15 MG GT BID [mylanta], 30 ML GT Q8HR, (Reported) Scheduled PRN Acetaminophen (Tylenol), 650 MG GT DAILY PRN for For Pain, (Reported) Magnesium Hydroxide* (Milk Of Magnesia*), 30 ML GT DAILY PRN for Constipation, ( Reported) Miscellaneous Medications Bisacodyl (Dulcolax), 10 MG RC, (Reported) Discontinued Medications Albuterol Sulfate (Ventolin Hfa), 1 PUFF INH EVERY 4 HOURS, (Reported) Discontinued Reason: discontinued med Bisacodyl* (Dulcolax*), 10 MG RECTAL DAILY, (Reported) Discontinued Reason: Medication dose changed Cephalexin (Cephalexin), 500 MG ORAL QID, (Reported) Discontinued Reason: Therapy completed Patient History Healthcare decision maker Resuscitation status Advanced Directive on File Patient History Narrative Pmhx: as above SHx: Denies: smoking, alcohol use, drug use Fx: non contributory Review of Systems ROS Narrative unable to obtain Physical Exam Physical Exam Narrative General Appearance: no apparent distress, alert HEENT: normocephalic, atraumatic, PERRL Neck: full range of motion, supple/symm/no masses Respiratory: no respiratory distress, no retraction, no accessory muscle use, rhonchi, wheezing Cardiovascular regular rate, rhythm, no edema Gastrointestinal: normal bowel sounds, non tender, soft, non-distended, no guarding, no rebound Genitourinary: other - suprapubic catheter in place Musculoskeletal: other - contracted, quadraplegia Neurologic: alert, responsive, other - At baseline Skin: warm/dry, well hydrated, other - See RN skin exam Last 24 Hour Vital Signs Date Time Temp Pulse Resp B/P (MAP) Pulse Ox O2 Delivery O2 Flow Rate FiO2 06/21/17 08:00 97.2 92 20 113/80 Room Air 97.2 06/21/17 04:19 Room Air 06/20/17 21:30 110 06/20/17 20:00 Room Air 06/20/17 19:37 97.7 118 20 125/88 96 Room Air 97.7 06/20/17 18:56 97.7 109 18 116/86 99 Room Air 97.7 06/20/17 18:27 98.0 90 15 115/76 96 Room Air 98.0 06/20/17 17:49 98.0 90 15 115/76 96 Room Air 98.0 06/20/17 16:14 98.6 98 15 123/76 96 Room Air 98.6 06/20/17 15:00 107 18 100 Room Air 06/20/17 14:40 80 20 98 Room Air 06/20/17 14:40 80 20 Room Air 06/20/17 14:18 98.4 80 15 103/97 97 Room Air 98.4 06/20/17 12:26 90 20 Room Air 06/20/17 12:26 98.4 90 14 132/91 95 Room Air 98.4 Intake and Output 06/20/17 06/21/17 19:00 07:00 Intake Total 1055 ml 570.000 ml Output Total 1000 ml Balance 1055 ml -430.000 ml Intake Oral 0 ml Free Water 40 ml IV Total 1055 ml 360.000 ml Tube Feeding 170 ml Output Urine Total 1000 ml Laboratory Tests Test 06/20/17 12:10 06/20/17 23:35 White Blood Count 5.9 K/UL (4.8-10.8) Red Blood Count 5.10 M/UL (4.70-6.10) Hemoglobin 15.1 G/DL (14.2-18.0) Hematocrit 46.1 % (42.0-52.0) Mean Corpuscular Volume 90 FL (80-99) Mean Corpuscular Hemoglobin 29.7 PG (27.0-31.0) Mean Corpuscular Hemoglobin Concent 32.9 G/DL (32.0-36.0) Red Cell Distribution Width 13.7 % (11.6-14.8) Platelet Count 257 K/UL (150-450) Mean Platelet Volume 9.7 FL (6.5-10.1) Neutrophils (%) (Auto) 36.8 % (45.0-75.0) L Lymphocytes (%) (Auto) 49.0 % (20.0-45.0) H Monocytes (%) (Auto) 7.8 % (1.0-10.0) Eosinophils (%) (Auto) 4.2 % (0.0-3.0) H Basophils (%) (Auto) 2.2 % (0.0-2.0) H Sodium Level 136 MMOL/L (136-145) Potassium Level 4.7 MMOL/L (3.5-5.1) Chloride Level 102 MMOL/L (98-107) Carbon Dioxide Level 29 MMOL/L (21-32) Anion Gap 5 mmol/L (5-15) Blood Urea Nitrogen 27 mg/dL (7-18) H Creatinine 0.8 MG/DL (0.55-1.30) Estimat Glomerular Filtration Rate > 60 mL/min (>60) Glucose Level 103 MG/DL (74-106) Calcium Level 9.0 MG/DL (8.5-10.1) Total Bilirubin 0.3 MG/DL (0.2-1.0) Aspartate Amino Transf (AST/SGOT) 40 U/L (15-37) H Alanine Aminotransferase (ALT/SGPT) 19 U/L (12-78) Alkaline Phosphatase 65 U/L (46-116) Total Protein 9.3 G/DL (6.4-8.2) H Albumin 3.2 G/DL (3.4-5.0) L Globulin 6.1 g/dL Albumin/Globulin Ratio 0.5 (1.0-2.7) L Urine Color Pale yellow Urine Appearance Slightly cloudy Urine pH 8 (4.5-8.0) Urine Specific [place] 1.010 (1.005-1.035) Urine Protein 1+ (NEGATIVE) H Urine Glucose (UA) Negative (NEGATIVE) Urine Ketones Negative (NEGATIVE) Urine Occult Blood 1+ (NEGATIVE) H Urine Nitrite Positive (NEGATIVE) H Urine Bilirubin Negative (NEGATIVE) Urine Urobilinogen Normal MG/DL (0.0-1.0) Urine Leukocyte Esterase 3+ (NEGATIVE) H Urine RBC 2-4 /HPF (0 - 0) H Urine WBC Tntc /HPF (0 - 0) H Urine Squamous Epithelial Cells Moderate /LPF (NONE/OCC) H Urine Triple Phosphate Crystals Many /LPF (NONE) H Urine Amorphous Sediment Many /LPF (NONE) H Urine Bacteria Many /HPF (NONE) H Height (Feet): 5 Height (Inches): 8.00 Weight (Pounds): 180 Medications Current Medications Medications (Trade) Dose Ordered Sig/Fab Route PRN Reason Start Time Stop Time Status Last Admin Dose Admin Acetaminophen (Tylenol) 650 mg Q4H PRN ORAL T>100.5 06/20/17 15:30 07/20/17 15:29 Albuterol/ Ipratropium (Albuterol/ Ipratropium) 3 ml Q4H PRN HHN Shortness of Breath 06/20/17 15:30 06/25/17 15:29 Cefepime HCl 2 gm/ Sodium Chloride 110 ml @ 220 mls/hr EVERY 12 HOURS IV 06/20/17 21:00 06/27/17 20:59 06/21/17 09:36 Heparin Sodium (Porcine) (Heparin 5000 units/ml) 5,000 units EVERY 12 HOURS SUBQ 06/20/17 21:00 07/20/17 20:59 06/21/17 09:37 Morphine Sulfate (Morphine Sulfate) 2 mg Q4H PRN IVP Moderate Pain (Pain Scale 4-6) 06/20/17 15:30 06/27/17 15:29 Ondansetron HCl (Zofran) 4 mg Q6H PRN IVP Nausea & Vomiting 06/20/17 15:30 07/20/17 15:29 Phenazopyridine HCl (Pyridium) 100 mg DAILYPRN PRN ORAL dysuria 06/20/17 15:30 07/20/17 15:29 06/21/17 09:35 Polyethylene Glycol (Miralax) 17 gm DAILYPRN PRN ORAL Constipation 06/20/17 15:30 07/20/17 15:29 Temazepam (Restoril) 15 mg HSPRN PRN ORAL Insomnia 06/20/17 21:00 06/27/17 20:59 Vancomycin HCl/ Dextrose 250 ml @ 166.667 mls/hr Q12H IVPB 06/21/17 06:00 06/26/17 05:59 06/21/17 05:26 Assessment/Plan Assessment/Plan Abx: IV Vanco 06/20- Ceftriaxone x1 06/20 CEfepime 06/20- Assessment: Congestion- no PNA- r/o Flu -CXR: no acute process Pyuria- r/o UTI -u/a wbc tntc, nit+, leuk +3 Afebrile, no leukocytosis HTN, COPD, GERD, CVA/TIA, renal disease, hx fo uti, quadriplegia, non verbal, DVT, SNF resident, neurogenic bladder s/p suprapubic catheter Plan: -d/c IV Vanco #2 -Switch Cefepime #2 to Zosyn pending ucx -if febrile, leukocytosis, HD usntable, switch to Meropenem -f/u cx -Monitor CBC/CMP, temperatures Thank you for this consultation. Will continue to follow along with you. Discussed with Dorothea Soler M.D. Jun 21, 2017 12:16
[2017-06-21] MEDS: Piperacillin/Tazobactam 3.375 GM in D5W 110 ML IVPB SCH ×2 (14:43→21:58)
[2017-06-21 16:00] VITALS: BP 122/94
--- NOTE | 2017-06-21 19:45 | History and Physical Report ---
DATE OF ADMISSION: 06/20/2017 TIME: 2 p.m. RESIDENTIAL ROOFER: Rigoberto Bryant M.D. CHIEF COMPLAINT: Shortness of breath. BRIEF HISTORY: This is a 57-year-old male from [facility], presented to [facility] with history of shortness of breath x2 days, getting worse, diagnosed with exacerbation of chronic obstructive pulmonary disease, admitted to medical floor for further treatment. Currently, calm, confused in bed, and slightly short of breath. No complaint. PAST MEDICAL HISTORY: Includes CVA, COPD, and aphasia. PAST SURGICAL HISTORY: G-tube. MEDICATIONS: Zosyn, vancomycin, cefepime, temazepam, albuterol, Tylenol, morphine, and Zofran. ALLERGIES: Cipro. SOCIAL HISTORY: No smoking. No alcohol. No intravenous drug abuse. FAMILY HISTORY: Noncontributory. REVIEW OF SYSTEMS: No chest pain. Slightly short of breath. No nausea, vomiting, or diarrhea. PHYSICAL EXAMINATION: GENERAL: Slightly confused in bed, oriented x1, in no acute distress. VITAL SIGNS: Temperature 97, pulse 90, respirations 18, and blood pressure 113/74. CARDIOVASCULAR: No murmurs. LUNGS: Poor air exchange. ABDOMEN: Bowel sounds distant. EXTREMITIES: No cyanosis, clubbing, or edema. NEUROLOGIC: The patient moves all extremities, but slightly weak. LABORATORY AND DIAGNOSTIC DATA: CBC is normal. BMP shows BUN 27, AST 40, and albumin 3.2. Otherwise, BMP is normal. Urinalysis show 3+ leukocyte esterase. ASSESSMENT: 1. Urinary tract infection. 2. Exacerbation of chronic obstructive pulmonary disease. 3. Aphasia. 4. Cerebrovascular accident. PLAN: 1. Continue premeds. 2. O2 and pulmonary treatment as needed. 3. Antibiotics per Infectious Disease. 4. OT, PT, and dietary evaluation. 5. CBC and BMP in the morning. 6. We will continue to follow this patient medically. Jaylen Bear D.O. DR: CARMEN JOB#: [id number] CC:
[2017-06-21 20:00] VITALS: BP 121/82
--- NOTE | 2017-06-21 22:05 | Consultation ---
History of Present Illness General Chief Complaint: Upper Respiratory Illness Present Illness Allergies: Coded Allergies: CIPROFLOXACIN (Verified Allergy, Unknown, 08/23/15) Medication History Scheduled Cranberry Fruit Concentrate (Cranberry), 450 MG GT BID, (Reported) Docusate Sodium* (Docusate Sodium*), 100 MG GT TWICE A DAY, (Reported) Famotidine (Pepcid), 20 MG GT DAILY, (Reported) Multivitamin With Minerals (Multivitamins With Minerals*), 1 TAB GT DAILY, ( Reported) Na Phos,M-B/Na Phos,Di-Ba (Fleet Enema), 133 ML RC QOD, (Reported) Rivaroxaban (Xarelto), 15 MG GT BID [mylanta], 30 ML GT Q8HR, (Reported) Scheduled PRN Acetaminophen (Tylenol), 650 MG GT DAILY PRN for For Pain, (Reported) Magnesium Hydroxide* (Milk Of Magnesia*), 30 ML GT DAILY PRN for Constipation, ( Reported) Miscellaneous Medications Bisacodyl (Dulcolax), 10 MG RC, (Reported) Discontinued Medications Albuterol Sulfate (Ventolin Hfa), 1 PUFF INH EVERY 4 HOURS, (Reported) Discontinued Reason: MD discontinued med Bisacodyl* (Dulcolax*), 10 MG RECTAL DAILY, (Reported) Discontinued Reason: Medication dose changed Cephalexin (Cephalexin), 500 MG ORAL QID, (Reported) Discontinued Reason: Therapy completed Patient History Healthcare decision maker Resuscitation status Advanced Directive on File Physical Exam Last 24 Hour Vital Signs Date Time Temp Pulse Resp B/P (MAP) Pulse Ox O2 Delivery O2 Flow Rate FiO2 06/21/17 20:00 97.3 81 20 121/82 98 97.3 20 06/21/17 16:00 81 20 122/94 06/21/17 12:00 97.9 90 18 113/74 96 Room Air 97.9 06/21/17 08:00 97.2 92 20 113/80 Room Air 97.2 06/21/17 04:19 Room Air Intake and Output 06/20/17 06/21/17 19:00 07:00 Intake Total 1055 ml 570.000 ml Output Total 1000 ml Balance 1055 ml -430.000 ml Intake Oral 0 ml Free Water 40 ml IV Total 1055 ml 360.000 ml Tube Feeding 170 ml Output Urine Total 1000 ml Laboratory Tests Test 06/20/17 23:35 Urine Color Pale yellow Urine Appearance Slightly cloudy Urine pH 8 (4.5-8.0) Urine Specific [place] 1.010 (1.005-1.035) Urine Protein 1+ (NEGATIVE) H Urine Glucose (UA) Negative (NEGATIVE) Urine Ketones Negative (NEGATIVE) Urine Occult Blood 1+ (NEGATIVE) H Urine Nitrite Positive (NEGATIVE) H Urine Bilirubin Negative (NEGATIVE) Urine Urobilinogen Normal MG/DL (0.0-1.0) Urine Leukocyte Esterase 3+ (NEGATIVE) H Urine RBC 2-4 /HPF (0 - 0) H Urine WBC Tntc /HPF (0 - 0) H Urine Squamous Epithelial Cells Moderate /LPF (NONE/OCC) H Urine Triple Phosphate Crystals Many /LPF (NONE) H Urine Amorphous Sediment Many /LPF (NONE) H Urine Bacteria Many /HPF (NONE) H Height (Feet): 5 Height (Inches): 8.00 Weight (Pounds): 180 Medications Current Medications Medications (Trade) Dose Ordered Sig/Fab Route PRN Reason Start Time Stop Time Status Last Admin Dose Admin Acetaminophen (Tylenol) 650 mg Q4H PRN ORAL T>100.5 06/20/17 15:30 07/20/17 15:29 Albuterol/ Ipratropium (Albuterol/ Ipratropium) 3 ml Q4H PRN HHN Shortness of Breath 06/20/17 15:30 06/25/17 15:29 Heparin Sodium (Porcine) (Heparin 5000 units/ml) 5,000 units EVERY 12 HOURS SUBQ 06/20/17 21:00 07/20/17 20:59 06/21/17 20:41 Morphine Sulfate (Morphine Sulfate) 2 mg Q4H PRN IVP Moderate Pain (Pain Scale 4-6) 06/20/17 15:30 06/27/17 15:29 Ondansetron HCl (Zofran) 4 mg Q6H PRN IVP Nausea & Vomiting 06/20/17 15:30 07/20/17 15:29 Phenazopyridine HCl (Pyridium) 100 mg DAILYPRN PRN ORAL dysuria 06/20/17 15:30 07/20/17 15:29 06/21/17 09:35 Piperacillin Sod/ Tazobactam Sod 3.375 gm/Dextrose 110 ml @ 27.5 mls/hr EVERY 8 HOURS IVPB 06/21/17 14:00 06/26/17 13:59 06/21/17 21:58 Polyethylene Glycol (Miralax) 17 gm DAILYPRN PRN ORAL Constipation 06/20/17 15:30 07/20/17 15:29 Temazepam (Restoril) 15 mg HSPRN PRN ORAL Insomnia 06/20/17 21:00 06/27/17 20:59 Assessment/Plan Problem List: (1) Sepsis ICD Codes: A41.9 - Sepsis, unspecified organism SNOMED: 13345666 (2) Encephalopathy chronic ICD Codes: G93.49 - Other encephalopathy SNOMED: 60506835 (3) History of CVA (cerebrovascular accident) ICD Codes: Z86.73 - Personal history of transient ischemic attack (TIA), and cerebral infarction without residual deficits SNOMED: 304276601 (4) Feeding by G-tube ICD Codes: Z93.1 - Gastrostomy status SNOMED: 762583311, 333598739 (5) Aphasia ICD Codes: R47.01 - Aphasia SNOMED: 96626609 Assessment/Plan neri culture iv fluids iv abx dvt prophylaxis Rigoberto Bryant MD Jun 21, 2017 22:05
[2017-06-22 00:54] VITALS: BP 123/80
[2017-06-22 04:10] VITALS: BP 115/86
[2017-06-22] MEDS: Piperacillin/Tazobactam 3.375 GM in D5W 110 ML IVPB SCH ×3 (05:42→20:59)
[2017-06-22 08:10] VITALS: BP 126/81
[2017-06-22] MEDS: Heparin 5000 units/ml inj SUBQ SCH ×2 (08:53→20:23)
[2017-06-22 11:32] VITALS: BP 127/66
--- NOTE | 2017-06-22 13:30 | General Progress Note ---
Assessment/Plan Problem List: (1) UTI (urinary tract infection) ICD Codes: N39.0 - Urinary tract infection, site not specified SNOMED: 44817866 (2) COPD exacerbation ICD Codes: J44.1 - Chronic obstructive pulmonary disease with (acute) exacerbation SNOMED: 883626991 (3) Aphasia ICD Codes: R47.01 - Aphasia SNOMED: 94084408 (4) Sepsis ICD Codes: A41.9 - Sepsis, unspecified organism SNOMED: 89810693 (5) History of CVA (cerebrovascular accident) ICD Codes: Z86.73 - Personal history of transient ischemic attack (TIA), and cerebral infarction without residual deficits SNOMED: 312963626 Status: unchanged Assessment/Plan ot pt diet abx cbc bmp am Subjective Constitutional: Reports: weakness Allergies: Coded Allergies: CIPROFLOXACIN (Verified Allergy, Unknown, 08/23/15) All Systems: reviewed and negative except above Subjective sl confused in bed Objective Last 24 Hour Vital Signs Date Time Temp Pulse Resp B/P (MAP) Pulse Ox O2 Delivery O2 Flow Rate FiO2 06/22/17 11:32 97.8 98 20 127/66 99 97.8 06/22/17 08:10 98.3 103 20 126/81 98 98.3 06/22/17 04:10 97.0 78 20 115/86 99 Room Air 97.0 06/22/17 00:54 97.2 97 20 123/80 99 Room Air 97.2 06/21/17 20:00 97.3 81 20 121/82 98 97.3 20 06/21/17 20:00 Room Air 06/21/17 16:00 81 20 122/94 Intake and Output 06/21/17 06/22/17 19:00 07:00 Intake Total 525 ml 952.5 ml Output Total 400 ml 400 ml Balance 125 ml 552.5 ml Free Water 110 ml 100 ml IV Total 137.5 ml Tube Feeding 415 ml 715 ml Output Urine Total 400 ml 400 ml Height (Feet): 5 Height (Inches): 8.00 Weight (Pounds): 180 General Appearance: lethargic, confused EENT: normal ENT inspection Neck: normal alignment Cardiovascular: normal peripheral pulses, normal rate, regular rhythm Respiratory/Chest: chest wall non-tender, lungs clear, normal breath sounds Extremities: normal inspection Edema: no edema noted Arm (L), no edema noted Arm (R), no edema noted Leg (L), no edema noted Leg (R), no edema noted Pedal (L), no edema noted Pedal (R), no edema noted Generalized Neurologic: motor weakness Skin: normal pigmentation, warm/dry TANIA LEÓN Jun 22, 2017 13:30
--- NOTE | 2017-06-22 14:16 | Wound Care Consultation ---
Wound Assessment Wound Assessment #1: Wound Number: 1 Wound Present on Admission: Yes New Wound: No Status Change of Wound: No Wound Location Body Site Modif: right, lateral Wound Location Body Site: knee Wound Type: pressure ulcer Leroy Test: Does not Leroy Pressure Ulcer Stage: Unstageable Wound Thickness: Full Thickness Wound Length: 2.0 Wound Width: 2.0 Wound Depth: utd Percent of Wound Black/Brown: 50 Percent of Wound Purple/Maroon: 50 Wound Drainage Description: Serosanguineous Wound Drainage Amount: Scant Wound Drainage Odor: None/Absent Tissue Surrounding Wound: Erythemic Wound General Appearance: Blackened Wound Assessment #2: Wound Number: 2 Wound Present on Admission: Yes New Wound: No Status Change of Wound: No Wound Location Body Site Modif: upper Wound Location Body Site: abdomen Wound Type: other - open full thickness wound Leroy Test: Does not Leroy Wound Thickness: Full Thickness Wound Length: 4.0 Wound Width: 2.0 Wound Depth: 0.3 Percent of Wound [place]/Red: 100 Wound Drainage Description: Serosanguineous Wound Drainage Amount: Moderate Wound Drainage Odor: None/Absent Tissue Surrounding Wound: Macerated Wound General Appearance: Reddened, Draining Wound Comment #1 Right lateral knee unstageable pressure ulcer. #2 upper abdomen open wound full thickness #3 sacral assessed skin intact noted with cortez hyperpigmentation, no redness/ maroon color present. Offload area, reposition for skin management and prevention Recommendation. -Local wound care per protocol. -Offload affected sites. -Turn and reposition. -Keep clean and dry. -low air loss overlay for skin management and prevention. -Offload knees and feet -heel protectors. -Optimize nutrition -Assess and notify MD if any further change of condition to skin is present. KRISTOPHER SANCHEZ Jun 22, 2017 14:16
--- NOTE | 2017-06-22 15:02 | Infectious Diseases Prog Note ---
Assessment/Plan Assessment/Plan Assessment: Congestion- no PNA- r/o Flu -CXR: no acute process -influenza sc p Pyuria- r/o UTI -u/a wbc tntc, nit+, leuk +3; Ucx Afebrile, no leukocytosis HTN, COPD, GERD, CVA/TIA, renal disease, hx fo uti, quadriplegia, non verbal, DVT, SNF resident, neurogenic bladder s/p suprapubic catheter Plan: -Continue empiric Zosyn abx d#3 pending ucx -if febrile, leukocytosis, HD usntable, switch to Meropenem -06/21 SP IV Vancomcyin #2, CEfepime #2 -06/20 SP Ceftriaxone x1 -f/u cx -Monitor CBC/CMP, temperatures Thank you for this consultation. Will continue to follow along with you. Discussed with RN. Subjective Allergies: Coded Allergies: CIPROFLOXACIN (Verified Allergy, Unknown, 08/23/15) Subjective afebrile no leukocytosis ucx p Objective Vital Signs Last 24 Hour Vital Signs Date Time Temp Pulse Resp B/P (MAP) Pulse Ox O2 Delivery O2 Flow Rate FiO2 06/22/17 11:32 97.8 98 20 127/66 99 97.8 06/22/17 08:10 98.3 103 20 126/81 98 98.3 06/22/17 04:10 97.0 78 20 115/86 99 Room Air 97.0 06/22/17 00:54 97.2 97 20 123/80 99 Room Air 97.2 06/21/17 20:00 97.3 81 20 121/82 98 97.3 20 06/21/17 20:00 Room Air 06/21/17 16:00 81 20 122/94 Height (Feet): 5 Height (Inches): 8.00 Weight (Pounds): 180 Objective General Appearance: no apparent distress, alert HEENT: normocephalic, atraumatic, PERRL Neck: full range of motion, supple/symm/no masses Respiratory: no respiratory distress, no retraction, no accessory muscle use, rhonchi, wheezing Cardiovascular regular rate, rhythm, no edema Gastrointestinal: normal bowel sounds, non tender, soft, non-distended, no guarding, no rebound Genitourinary: other - suprapubic catheter in place Musculoskeletal: other - contracted, quadraplegia Neurologic: alert, responsive, other - At baseline Skin: warm/dry, well hydrated, other - See RN skin exa Microbiology Date/Time Source Procedure Growth Status 06/20/17 12:45 Blood Blood Culture - Preliminary NO GROWTH AFTER 24 HOURS Resulted 06/20/17 12:45 Blood Blood Culture - Preliminary NO GROWTH AFTER 24 HOURS Resulted 06/20/17 17:40 Nasal Nares MRSA Culture - Final NO METHICILLIN RESISTANT STAPH AUREUS... Complete 06/20/17 23:35 Urine,Clean Catch Urine Culture - Preliminary Resulted 06/20/17 17:40 Rectum VRE Culture - Final NO VANCOMYCIN RESISTANT ENTEROCOCCUS ... Complete Current Medications Medications (Trade) Dose Ordered Sig/Fab Route PRN Reason Start Time Stop Time Status Last Admin Dose Admin Acetaminophen (Tylenol) 650 mg Q4H PRN ORAL T>100.5 06/20/17 15:30 07/20/17 15:29 Albuterol/ Ipratropium (Albuterol/ Ipratropium) 3 ml Q4H PRN HHN Shortness of Breath 06/20/17 15:30 06/25/17 15:29 Heparin Sodium (Porcine) (Heparin 5000 units/ml) 5,000 units EVERY 12 HOURS SUBQ 06/20/17 21:00 07/20/17 20:59 06/22/17 08:53 Morphine Sulfate (Morphine Sulfate) 2 mg Q4H PRN IVP Moderate Pain (Pain Scale 4-6) 06/20/17 15:30 06/27/17 15:29 Ondansetron HCl (Zofran) 4 mg Q6H PRN IVP Nausea & Vomiting 06/20/17 15:30 07/20/17 15:29 Phenazopyridine HCl (Pyridium) 100 mg DAILYPRN PRN ORAL dysuria 06/20/17 15:30 07/20/17 15:29 06/21/17 09:35 Piperacillin Sod/ Tazobactam Sod 3.375 gm/Dextrose 110 ml @ 27.5 mls/hr EVERY 8 HOURS IVPB 06/21/17 14:00 06/26/17 13:59 06/22/17 14:07 Polyethylene Glycol (Miralax) 17 gm DAILYPRN PRN ORAL Constipation 06/20/17 15:30 4/13/18 15:29 Temazepam (Restoril) 15 mg HSPRN PRN ORAL Insomnia 06/20/17 21:00 06/27/17 20:59 06/21/17 22:04 Dorothea Macario M.D. Jun 22, 2017 15:02
--- NOTE | 2017-06-22 16:16 | Pulmonology Progress Note ---
Assessment/Plan Problems: (1) Sepsis (2) Encephalopathy chronic (3) History of CVA (cerebrovascular accident) (4) Feeding by G-tube (5) Aphasia Assessment/Plan neri culture iv abx iv fluids tolerating diet dvt prophylaxis Subjective ROS Limited/Unobtainable: No Allergies: Coded Allergies: CIPROFLOXACIN (Verified Allergy, Unknown, 08/23/15) Objective Last 24 Hour Vital Signs Date Time Temp Pulse Resp B/P (MAP) Pulse Ox O2 Delivery O2 Flow Rate FiO2 06/22/17 11:32 97.8 98 20 127/66 99 97.8 06/22/17 08:10 98.3 103 20 126/81 98 98.3 06/22/17 04:10 97.0 78 20 115/86 99 Room Air 97.0 06/22/17 00:54 97.2 97 20 123/80 99 Room Air 97.2 06/21/17 20:00 97.3 81 20 121/82 98 97.3 20 06/21/17 20:00 Room Air Intake and Output 06/21/17 06/22/17 19:00 07:00 Intake Total 525 ml 952.5 ml Output Total 400 ml 400 ml Balance 125 ml 552.5 ml Free Water 110 ml 100 ml IV Total 137.5 ml Tube Feeding 415 ml 715 ml Output Urine Total 400 ml 400 ml General Appearance: WD/WN HEENT: normocephalic, atraumatic Respiratory/Chest: chest wall non-tender, lungs clear, no accessory muscle use Cardiovascular: normal rate, regular rhythm Abdomen: normal bowel sounds, no mass Genitourinary: normal external genitalia Extremities: no cyanosis Skin: no lesions 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 Complete 06/20/17 23:35 Urine,Clean Catch Urine Culture - Preliminary Resulted 06/20/17 17:40 Rectum VRE Culture - Final NO VANCOMYCIN RESISTANT ENTEROCOCCUS ... Complete Current Medications Medications (Trade) Dose Ordered Sig/Fab Route PRN Reason Start Time Stop Time Status Last Admin Dose Admin Acetaminophen (Tylenol) 650 mg Q4H PRN ORAL T>100.5 06/20/17 15:30 07/20/17 15:29 Albuterol/ Ipratropium (Albuterol/ Ipratropium) 3 ml Q4H PRN HHN Shortness of Breath 06/20/17 15:30 06/25/17 15:29 Heparin Sodium (Porcine) (Heparin 5000 units/ml) 5,000 units EVERY 12 HOURS SUBQ 06/20/17 21:00 07/20/17 20:59 06/22/17 08:53 Morphine Sulfate (Morphine Sulfate) 2 mg Q4H PRN IVP Moderate Pain (Pain Scale 4-6) 06/20/17 15:30 06/27/17 15:29 Ondansetron HCl (Zofran) 4 mg Q6H PRN IVP Nausea & Vomiting 06/20/17 15:30 07/20/17 15:29 Phenazopyridine HCl (Pyridium) 100 mg DAILYPRN PRN ORAL dysuria 06/20/17 15:30 07/20/17 15:29 06/21/17 09:35 Piperacillin Sod/ Tazobactam Sod 3.375 gm/Dextrose 110 ml @ 27.5 mls/hr EVERY 8 HOURS IVPB 06/21/17 14:00 06/26/17 13:59 06/22/17 14:07 Polyethylene Glycol (Miralax) 17 gm DAILYPRN PRN ORAL Constipation 06/20/17 15:30 07/20/17 15:29 Temazepam (Restoril) 15 mg HSPRN PRN ORAL Insomnia 06/20/17 21:00 06/27/17 20:59 06/21/17 22:04 Rigoberto Bryant MD Jun 22, 2017 16:16
[2017-06-22 16:18] VITALS: BP 127/68
--- NOTE | 2017-06-22 17:35 | Cardiology Report ---
APPROVED REPORT EKG Measurement Heart [id number] Normal sinus rhythm Rightward axis Anterior infarct, age undetermined Abnormal ECG
[2017-06-22 20:00] VITALS: BP 124/84
[2017-06-23] VITALS: BP 112/82
[2017-06-23 04:26] VITALS: BP 110/80
[2017-06-23] MEDS: Piperacillin/Tazobactam 3.375 GM in D5W 110 ML IVPB SCH ×3 (06:11→21:41)
[2017-06-23 07:24] LABS: BASOPHILS % (AUTO) 1.6 % (0.0-2.0); EOSINOPHILS % (AUTO) 3.4 % (0.0-3.0); HEMATOCRIT 41.1 % (42.0-52.0); HEMOGLOBIN 13.7 G/DL (14.2-18.0); LYMPHOCYTES % (AUTO) 44.8 % (20.0-45.0); MEAN CORPUSCULAR VOLUME 89 FL (80-99); NEUTROPHILS % (AUTO) 40.3 % (45.0-75.0); PLATELET COUNT 255 K/UL (150-450); RED BLOOD COUNT 4.61 M/UL (4.70-6.10); RED CELL DISTRIBUTION WIDTH 13.8 % (11.6-14.8); WHITE BLOOD COUNT 6.9 K/UL (4.8-10.8)
[2017-06-23 07:54] LABS: ALANINE AMINOTRANSFERASE 20 U/L (12-78); ALBUMIN/GLOBULIN RATIO 0.6 (1.0-2.7); ALKALINE PHOSPHATASE 58 U/L (46-116); ANION GAP 6 mmol/L (5-15); ASPARTATE AMINO TRANSFERASE 15 U/L (15-37); BILIRUBIN,TOTAL 0.2 MG/DL (0.2-1.0); BLOOD UREA NITROGEN 24 mg/dL (7-18); CALCIUM 8.6 MG/DL (8.5-10.1); CARBON DIOXIDE 29 MMOL/L (21-32); CHLORIDE 109 MMOL/L (98-107); CREATININE 0.8 MG/DL (0.55-1.30); SODIUM 144 MMOL/L (136-145)
[2017-06-23 08:00] VITALS: BP 115/77
[2017-06-23 08:16] LABS: PHOSPHORUS 3.5 MG/DL (2.5-4.9)
--- NOTE | 2017-06-23 08:31 | General Progress Note ---
Assessment/Plan Problem List: (1) UTI (urinary tract infection) ICD Codes: N39.0 - Urinary tract infection, site not specified SNOMED: 09561912 (2) COPD exacerbation ICD Codes: J44.1 - Chronic obstructive pulmonary disease with (acute) exacerbation SNOMED: 249311507 (3) Aphasia ICD Codes: R47.01 - Aphasia SNOMED: 70208512 (4) Sepsis ICD Codes: A41.9 - Sepsis, unspecified organism SNOMED: 69128512 (5) History of CVA (cerebrovascular accident) ICD Codes: Z86.73 - Personal history of transient ischemic attack (TIA), and cerebral infarction without residual deficits SNOMED: 154887124 Status: unchanged Assessment/Plan o2 pulm tx ot pt diet abx cbc bmp am Subjective Constitutional: Reports: weakness Allergies: Coded Allergies: CIPROFLOXACIN (Verified Allergy, Unknown, 08/23/15) All Systems: reviewed and negative except above Subjective sl confused in bed Objective Last 24 Hour Vital Signs Date Time Temp Pulse Resp B/P (MAP) Pulse Ox O2 Delivery O2 Flow Rate FiO2 06/23/17 08:00 97.0 87 20 115/77 98 97.0 06/23/17 04:26 97.1 79 20 110/80 96 Room Air 97.1 06/23/17 00:00 97.8 88 19 112/82 97 97.8 06/22/17 20:00 97.9 85 21 124/84 97.9 06/22/17 16:18 97.5 101 20 127/68 98 97.5 06/22/17 11:32 97.8 98 20 127/66 99 97.8 Intake and Output 06/22/17 06/23/17 19:00 07:00 Intake Total 505 ml 455 ml Output Total 350 ml Balance 505 ml 105 ml Free Water 50 ml Tube Feeding 455 ml 455 ml Output Urine Total 350 ml Laboratory Tests 06/23/17 06:30: White Blood Count 6.9, Red Blood Count 4.61L, Hemoglobin 13.7L, Hematocrit 41.1L , Mean Corpuscular Volume 89, Mean Corpuscular Hemoglobin 29.7, Mean Corpuscular Hemoglobin Concent 33.3, Red Cell Distribution Width 13.8, Platelet Count 255, Mean Platelet Volume 9.3, Neutrophils (%) (Auto) 40.3L, Lymphocytes ( %) (Auto) 44.8, Monocytes (%) (Auto) 10.0, Eosinophils (%) (Auto) 3.4H, Basophils (%) (Auto) 1.6, Sodium Level 144, Potassium Level 4.0, Chloride Level 109H, Carbon Dioxide Level 29, Anion Gap 6, Blood Urea Nitrogen 24H, Creatinine 0.8, Estimat Glomerular Filtration Rate > 60, Glucose Level 108H, Calcium Level 8.6, Phosphorus Level 3.5, Magnesium Level 2.4, Total Bilirubin 0.2, Aspartate Amino Transf (AST/SGOT) 15, Alanine Aminotransferase (ALT/SGPT) 20, Alkaline Phosphatase 58, Total Protein 8.3H, Albumin 3.0L, Globulin 5.3, Albumin/ Globulin Ratio 0.6L Height (Feet): 5 Height (Inches): 8.00 Weight (Pounds): 180 General Appearance: lethargic EENT: normal ENT inspection Neck: normal alignment Cardiovascular: normal peripheral pulses, normal rate, regular rhythm Respiratory/Chest: decreased breath sounds Abdomen: normal bowel sounds, non tender, soft Extremities: normal inspection Edema: no edema noted Arm (L), no edema noted Arm (R), no edema noted Leg (L), no edema noted Leg (R), no edema noted Pedal (L), no edema noted Pedal (R), no edema noted Generalized Neurologic: motor weakness Skin: normal pigmentation, warm/dry TANIA LEÓN Jun 23, 2017 08:31
[2017-06-23] MEDS: Heparin 5000 units/ml inj SUBQ SCH ×2 (09:37→20:30)
[2017-06-23 12:00] VITALS: BP 115/75
[2017-06-23] MEDS ORDERED: Tubing IV Secondary IV ONE (14:15)
[2017-06-23 15:41] VITALS: BP 123/76
--- NOTE | 2017-06-23 17:03 | Pulmonology Progress Note ---
Assessment/Plan Problems: (1) Sepsis (2) Encephalopathy chronic (3) History of CVA (cerebrovascular accident) (4) Feeding by G-tube (5) Aphasia Assessment/Plan afebrile, improving neri culture iv abx iv fluids tolerating diet dvt prophylaxis Subjective ROS Limited/Unobtainable: No Constitutional: Reports: no symptoms HEENT: Repors: no symptoms Respiratory: Reports: no symptoms Allergies: Coded Allergies: CIPROFLOXACIN (Verified Allergy, Unknown, 08/23/15) Objective Last 24 Hour Vital Signs Date Time Temp Pulse Resp B/P (MAP) Pulse Ox O2 Delivery O2 Flow Rate FiO2 06/23/17 15:41 97.2 63 20 123/76 100 97.2 06/23/17 12:38 78 20 98 Room Air 06/23/17 12:00 96.8 69 20 115/75 100 96.8 06/23/17 08:00 97.0 87 20 115/77 98 97.0 06/23/17 04:26 97.1 79 20 110/80 96 Room Air 97.1 06/23/17 00:00 97.8 88 19 112/82 97 97.8 06/22/17 20:00 97.9 85 21 124/84 97.9 Intake and Output 06/22/17 06/23/17 19:00 07:00 Intake Total 505 ml 455 ml Output Total 350 ml Balance 505 ml 105 ml Free Water 50 ml Tube Feeding 455 ml 455 ml Output Urine Total 350 ml General Appearance: no acute distress HEENT: atraumatic, anicteric Respiratory/Chest: chest wall non-tender, lungs clear Cardiovascular: normal peripheral pulses, normal rate Abdomen: normal bowel sounds, soft, non tender Genitourinary: normal external genitalia Extremities: no clubbing Skin: no ulcers 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: no motor/sensory deficits, abnormal gait Lymphatic: no neck adenopathy Microbiology Date/Time Source Procedure Growth Status 06/20/17 17:40 Nasal Nares MRSA Culture - Final NO METHICILLIN RESISTANT STAPH AUREUS... Complete 06/20/17 23:35 Urine,Clean Catch Urine Culture - Preliminary Staphylococcus Species Strep Species, Gamma-Hemolytic Resulted 06/20/17 17:40 Rectum VRE Culture - Final NO VANCOMYCIN RESISTANT ENTEROCOCCUS ... Complete Laboratory Tests 06/23/17 06:30: White Blood Count 6.9, Red Blood Count 4.61L, Hemoglobin 13.7L, Hematocrit 41.1L , Mean Corpuscular Volume 89, Mean Corpuscular Hemoglobin 29.7, Mean Corpuscular Hemoglobin Concent 33.3, Red Cell Distribution Width 13.8, Platelet Count 255, Mean Platelet Volume 9.3, Neutrophils (%) (Auto) 40.3L, Lymphocytes ( %) (Auto) 44.8, Monocytes (%) (Auto) 10.0, Eosinophils (%) (Auto) 3.4H, Basophils (%) (Auto) 1.6, Sodium Level 144, Potassium Level 4.0, Chloride Level 109H, Carbon Dioxide Level 29, Anion Gap 6, Blood Urea Nitrogen 24H, Creatinine 0.8, Estimat Glomerular Filtration Rate > 60, Glucose Level 108H, Calcium Level 8.6, Phosphorus Level 3.5, Magnesium Level 2.4, Total Bilirubin 0.2, Aspartate Amino Transf (AST/SGOT) 15, Alanine Aminotransferase (ALT/SGPT) 20, Alkaline Phosphatase 58, Total Protein 8.3H, Albumin 3.0L, Globulin 5.3, Albumin/ Globulin Ratio 0.6L Current Medications Medications (Trade) Dose Ordered Sig/Fab Route PRN Reason Start Time Stop Time Status Last Admin Dose Admin Acetaminophen (Tylenol) 650 mg Q4H PRN ORAL T>100.5 06/20/17 15:30 07/20/17 15:29 Albuterol/ Ipratropium (Albuterol/ Ipratropium) 3 ml Q4H PRN HHN Shortness of Breath 06/20/17 15:30 06/25/17 15:29 06/23/17 12:38 Heparin Sodium (Porcine) (Heparin 5000 units/ml) 5,000 units EVERY 12 HOURS SUBQ 06/20/17 21:00 07/20/17 20:59 06/23/17 09:37 Morphine Sulfate (Morphine Sulfate) 2 mg Q4H PRN IVP Moderate Pain (Pain Scale 4-6) 06/20/17 15:30 06/27/17 15:29 Ondansetron HCl (Zofran) 4 mg Q6H PRN IVP Nausea & Vomiting 06/20/17 15:30 07/20/17 15:29 Phenazopyridine HCl (Pyridium) 100 mg DAILYPRN PRN ORAL dysuria 06/20/17 15:30 07/20/17 15:29 06/21/17 09:35 Piperacillin Sod/ Tazobactam Sod 3.375 gm/Dextrose 110 ml @ 27.5 mls/hr EVERY 8 HOURS IVPB 06/21/17 14:00 06/26/17 13:59 06/23/17 14:41 Polyethylene Glycol (Miralax) 17 gm DAILYPRN PRN ORAL Constipation 06/20/17 15:30 07/20/17 15:29 Temazepam (Restoril) 15 mg HSPRN PRN ORAL Insomnia 06/20/17 21:00 06/27/17 20:59 06/21/17 22:04 Rigoberto Bryant MD Jun 23, 2017 17:03
--- NOTE | 2017-06-23 19:34 | Infectious Diseases Prog Note ---
Assessment/Plan Assessment/Plan Assessment: Congestion- no PNA- r/o Flu -CXR: no acute process -influenza sc p Pyuria- r/o UTI Strp and Staph ( final : P ) most likley colonizer -u/a wbc tntc, nit+, leuk +3; Ucx Afebrile, no leukocytosis HTN COPD GERD CVA/TIA renal disease, quadriplegia DVT Neurogenic bladder s/p suprapubic catheter Plan: -Continue empiric Zosyn abx d#4 pending ucx , may stop Ab rx soon -if febrile, leukocytosis, HD usntable, switch to Meropenem -06/21 SP IV Vancomcyin #2, CEfepime #2 -06/20 SP Ceftriaxone x1 -f/u cx -Monitor CBC/CMP, temperatures Subjective Allergies: Coded Allergies: CIPROFLOXACIN (Verified Allergy, Unknown, 08/23/15) Subjective afebrile Objective Vital Signs Last 24 Hour Vital Signs Date Time Temp Pulse Resp B/P (MAP) Pulse Ox O2 Delivery O2 Flow Rate FiO2 06/23/17 15:41 97.2 63 20 123/76 100 97.2 06/23/17 12:38 78 20 98 Room Air 06/23/17 12:00 96.8 69 20 115/75 100 96.8 06/23/17 08:00 97.0 87 20 115/77 98 97.0 06/23/17 04:26 97.1 79 20 110/80 96 Room Air 97.1 06/23/17 00:00 97.8 88 19 112/82 97 97.8 06/22/17 20:00 97.9 85 21 124/84 97.9 Height (Feet): 5 Height (Inches): 8.00 Weight (Pounds): 180 HEENT: anicteric Respiratory/Chest: no accessory muscle use Cardiovascular: no gallop/murmur Abdomen: non distended Microbiology Date/Time Source Procedure Growth Status 06/20/17 23:35 Urine,Clean Catch Urine Culture - Preliminary Staphylococcus Species Strep Species, Gamma-Hemolytic Resulted Laboratory Tests Test 06/23/17 06:30 White Blood Count 6.9 K/UL (4.8-10.8) Red Blood Count 4.61 M/UL (4.70-6.10) L Hemoglobin 13.7 G/DL (14.2-18.0) L Hematocrit 41.1 % (42.0-52.0) L Mean Corpuscular Volume 89 FL (80-99) Mean Corpuscular Hemoglobin 29.7 PG (27.0-31.0) Mean Corpuscular Hemoglobin Concent 33.3 G/DL (32.0-36.0) Red Cell Distribution Width 13.8 % (11.6-14.8) Platelet Count 255 K/UL (150-450) Mean Platelet Volume 9.3 FL (6.5-10.1) Neutrophils (%) (Auto) 40.3 % (45.0-75.0) L Lymphocytes (%) (Auto) 44.8 % (20.0-45.0) Monocytes (%) (Auto) 10.0 % (1.0-10.0) Eosinophils (%) (Auto) 3.4 % (0.0-3.0) H Basophils (%) (Auto) 1.6 % (0.0-2.0) Sodium Level 144 MMOL/L (136-145) Potassium Level 4.0 MMOL/L (3.5-5.1) Chloride Level 109 MMOL/L (98-107) H Carbon Dioxide Level 29 MMOL/L (21-32) Anion Gap 6 mmol/L (5-15) Blood Urea Nitrogen 24 mg/dL (7-18) H Creatinine 0.8 MG/DL (0.55-1.30) Estimat Glomerular Filtration Rate > 60 mL/min (>60) Glucose Level 108 MG/DL (74-106) H Calcium Level 8.6 MG/DL (8.5-10.1) Phosphorus Level 3.5 MG/DL (2.5-4.9) Magnesium Level 2.4 MG/DL (1.8-2.4) Total Bilirubin 0.2 MG/DL (0.2-1.0) Aspartate Amino Transf (AST/SGOT) 15 U/L (15-37) Alanine Aminotransferase (ALT/SGPT) 20 U/L (12-78) Alkaline Phosphatase 58 U/L (46-116) Total Protein 8.3 G/DL (6.4-8.2) H Albumin 3.0 G/DL (3.4-5.0) L Globulin 5.3 g/dL Albumin/Globulin Ratio 0.6 (1.0-2.7) L Current Medications Medications (Trade) Dose Ordered Sig/Fab Route PRN Reason Start Time Stop Time Status Last Admin Dose Admin Acetaminophen (Tylenol) 650 mg Q4H PRN ORAL T>100.5 06/20/17 15:30 07/20/17 15:29 Albuterol/ Ipratropium (Albuterol/ Ipratropium) 3 ml Q4H PRN HHN Shortness of Breath 06/20/17 15:30 06/25/17 15:29 06/23/17 12:38 Heparin Sodium (Porcine) (Heparin 5000 units/ml) 5,000 units EVERY 12 HOURS SUBQ 06/20/17 21:00 07/20/17 20:59 06/23/17 09:37 Morphine Sulfate (Morphine Sulfate) 2 mg Q4H PRN IVP Moderate Pain (Pain Scale 4-6) 06/20/17 15:30 06/27/17 15:29 Ondansetron HCl (Zofran) 4 mg Q6H PRN IVP Nausea & Vomiting 06/20/17 15:30 07/20/17 15:29 Phenazopyridine HCl (Pyridium) 100 mg DAILYPRN PRN ORAL dysuria 06/20/17 15:30 07/20/17 15:29 06/21/17 09:35 Piperacillin Sod/ Tazobactam Sod 3.375 gm/Dextrose 110 ml @ 27.5 mls/hr EVERY 8 HOURS IVPB 06/21/17 14:00 06/26/17 13:59 06/23/17 14:41 Polyethylene Glycol (Miralax) 17 gm DAILYPRN PRN ORAL Constipation 06/20/17 15:30 07/20/17 15:29 Temazepam (Restoril) 15 mg HSPRN PRN ORAL Insomnia 06/20/17 21:00 06/27/17 20:59 06/21/17 22:04 JACOBO RAPHAEL M.D. Jun 23, 2017 19:34
[2017-06-23 20:00] VITALS: BP 136/89
[2017-06-24] VITALS: BP 130/76
[2017-06-24 04:00] VITALS: BP 120/73
[2017-06-24] MEDS: Piperacillin/Tazobactam 3.375 GM in D5W 110 ML IVPB SCH ×3 (05:15→21:12)
--- NOTE | 2017-06-24 08:56 | General Progress Note ---
Assessment/Plan Problem List: (1) UTI (urinary tract infection) ICD Codes: N39.0 - Urinary tract infection, site not specified SNOMED: 51941645 (2) COPD exacerbation ICD Codes: J44.1 - Chronic obstructive pulmonary disease with (acute) exacerbation SNOMED: 647891206 (3) Aphasia ICD Codes: R47.01 - Aphasia SNOMED: 02943633 (4) Sepsis ICD Codes: A41.9 - Sepsis, unspecified organism SNOMED: 13514578 (5) History of CVA (cerebrovascular accident) ICD Codes: Z86.73 - Personal history of transient ischemic attack (TIA), and cerebral infarction without residual deficits SNOMED: 425531205 Status: unchanged Assessment/Plan o2 pulm tx ot pt diet abx cbc bmp am Subjective Allergies: Coded Allergies: CIPROFLOXACIN (Verified Allergy, Unknown, 08/23/15) All Systems: reviewed and negative except above Subjective sl confused in bed Objective Last 24 Hour Vital Signs Date Time Temp Pulse Resp B/P (MAP) Pulse Ox O2 Delivery O2 Flow Rate FiO2 06/24/17 04:00 97.9 83 17 120/73 95 97.9 06/24/17 00:00 97.9 70 20 130/76 98 Room Air 97.9 06/23/17 20:00 97.5 68 18 136/89 99 Room Air 97.5 06/23/17 15:41 97.2 63 20 123/76 100 97.2 06/23/17 12:38 78 20 98 Room Air 06/23/17 12:00 96.8 69 20 115/75 100 96.8 Intake and Output 06/23/17 06/24/17 19:00 07:00 Intake Total 65 ml 952.5 ml Output Total 1200 ml 400 ml Balance -1135 ml 552.5 ml Free Water 100 ml IV Total 137.5 ml Tube Feeding 65 ml 715 ml Output Urine Total 1200 ml 400 ml Height (Feet): 5 Height (Inches): 8.00 Weight (Pounds): 180 General Appearance: lethargic EENT: normal ENT inspection Neck: normal alignment Cardiovascular: normal peripheral pulses, normal rate, regular rhythm Respiratory/Chest: chest wall non-tender, lungs clear, normal breath sounds Abdomen: normal bowel sounds, non tender, soft Extremities: normal inspection Edema: no edema noted Arm (L), no edema noted Arm (R), no edema noted Leg (L), no edema noted Leg (R), no edema noted Pedal (L), no edema noted Pedal (R), no edema noted Generalized Neurologic: motor weakness Skin: normal pigmentation, warm/dry TANIA LEÓN Jun 24, 2017 08:56
[2017-06-24] MEDS: Heparin 5000 units/ml inj SUBQ SCH ×2 (09:13→20:17)
[2017-06-24 16:00] VITALS: BP 132/98
[2017-06-24] MEDS ORDERED: NS 275ml ONE (18:47)
[2017-06-24 20:00] VITALS: BP 134/81
--- NOTE | 2017-06-24 22:16 | Pulmonology Progress Note ---
Assessment/Plan Problems: (1) Sepsis (2) Encephalopathy chronic (3) History of CVA (cerebrovascular accident) (4) Feeding by G-tube (5) Aphasia Assessment/Plan afebrile, improving neri culture iv abx iv fluids tolerating diet dvt prophylaxis Subjective ROS Limited/Unobtainable: No Allergies: Coded Allergies: CIPROFLOXACIN (Verified Allergy, Unknown, 08/23/15) Objective Last 24 Hour Vital Signs Date Time Temp Pulse Resp B/P (MAP) Pulse Ox O2 Delivery O2 Flow Rate FiO2 06/24/17 20:00 97.5 71 18 134/81 99 Room Air 97.5 06/24/17 16:00 97.3 76 20 132/98 98 97.3 06/24/17 09:00 96 Room Air 21 06/24/17 04:00 97.9 83 17 120/73 95 97.9 06/24/17 00:00 97.9 70 20 130/76 98 Room Air 97.9 Intake and Output 06/23/17 06/24/17 19:00 07:00 Intake Total 65 ml 1017.5 ml Output Total 1200 ml 400 ml Balance -1135 ml 617.5 ml Free Water 100 ml IV Total 137.5 ml Tube Feeding 65 ml 780 ml Output Urine Total 1200 ml 400 ml Objective General Appearance: WD/WN HEENT: normocephalic, atraumatic, anicteric Respiratory/Chest: loud rhonchi Cardiovascular: normal peripheral pulses, normal rate, regular rhythm Abdomen: normal bowel sounds, soft, non tender, no organomegaly Genitourinary: normal external genitalia Extremities: no cyanosis Skin: no rash, no lesions Lymphatic: no neck adenopathy, no groin adenopathy Current Medications Medications (Trade) Dose Ordered Sig/Fab Route PRN Reason Start Time Stop Time Status Last Admin Dose Admin Acetaminophen (Tylenol) 650 mg Q4H PRN ORAL T>100.5 06/20/17 15:30 07/20/17 15:29 Albuterol/ Ipratropium (Albuterol/ Ipratropium) 3 ml Q4H PRN HHN Shortness of Breath 06/20/17 15:30 06/25/17 15:29 06/23/17 12:38 Heparin Sodium (Porcine) (Heparin 5000 units/ml) 5,000 units EVERY 12 HOURS SUBQ 06/20/17 21:00 07/20/17 20:59 06/24/17 20:17 Morphine Sulfate (Morphine Sulfate) 2 mg Q4H PRN IVP Moderate Pain (Pain Scale 4-6) 06/20/17 15:30 06/27/17 15:29 Ondansetron HCl (Zofran) 4 mg Q6H PRN IVP Nausea & Vomiting 06/20/17 15:30 07/20/17 15:29 Phenazopyridine HCl (Pyridium) 100 mg DAILYPRN PRN ORAL dysuria 06/20/17 15:30 07/20/17 15:29 06/21/17 09:35 Piperacillin Sod/ Tazobactam Sod 3.375 gm/Dextrose 110 ml @ 27.5 mls/hr EVERY 8 HOURS IVPB 06/21/17 14:00 06/26/17 13:59 06/24/17 21:12 Polyethylene Glycol (Miralax) 17 gm DAILYPRN PRN ORAL Constipation 06/20/17 15:30 07/20/17 15:29 Temazepam (Restoril) 15 mg HSPRN PRN ORAL Insomnia 06/20/17 21:00 06/27/17 20:59 06/21/17 22:04 Rigoberto Bryant MD Jun 24, 2017 22:16
[2017-06-25] VITALS: BP 121/81
[2017-06-25 04:00] VITALS: BP 129/93
[2017-06-25] MEDS: Piperacillin/Tazobactam 3.375 GM in D5W 110 ML IVPB SCH ×3 (05:19→14:28)
[2017-06-25 08:00] VITALS: BP 120/87
[2017-06-25] MEDS: Heparin 5000 units/ml inj SUBQ SCH ×2 (08:48→22:07)
[2017-06-25 12:00] VITALS: BP 131/69
--- NOTE | 2017-06-25 14:42 | General Progress Note ---
Assessment/Plan Problem List: (1) UTI (urinary tract infection) ICD Codes: N39.0 - Urinary tract infection, site not specified SNOMED: 51664890 (2) COPD exacerbation ICD Codes: J44.1 - Chronic obstructive pulmonary disease with (acute) exacerbation SNOMED: 556652123 (3) Aphasia ICD Codes: R47.01 - Aphasia SNOMED: 44234345 (4) Sepsis ICD Codes: A41.9 - Sepsis, unspecified organism SNOMED: 80926378 (5) History of CVA (cerebrovascular accident) ICD Codes: Z86.73 - Personal history of transient ischemic attack (TIA), and cerebral infarction without residual deficits SNOMED: 688794223 Status: unchanged Assessment/Plan o2 pulm tx ot pt diet abx cbc bmp am Subjective Constitutional: Reports: weakness Allergies: Coded Allergies: CIPROFLOXACIN (Verified Allergy, Unknown, 08/23/15) All Systems: reviewed and negative except above Subjective sl confused in bed Objective Last 24 Hour Vital Signs Date Time Temp Pulse Resp B/P (MAP) Pulse Ox O2 Delivery O2 Flow Rate FiO2 06/25/17 12:00 85 21 131/69 99 06/25/17 09:10 95 Room Air 21 06/25/17 08:00 86 18 120/87 98 06/25/17 04:00 97.7 97 20 129/93 94 Room Air 97.7 06/25/17 00:00 97.9 101 18 121/81 100 97.9 06/25/17 00:00 Room Air 06/24/17 20:00 97.5 71 18 134/81 99 Room Air 97.5 06/24/17 19:21 97 Room Air 21 06/24/17 16:00 97.3 76 20 132/98 98 97.3 Intake and Output 06/24/17 06/25/17 19:00 07:00 Intake Total 577.5 ml 1017.5 ml Output Total 450 ml 350 ml Balance 127.5 ml 667.5 ml Free Water 50 ml 100 ml IV Total 137.5 ml 137.5 ml Tube Feeding 390 ml 780 ml Output Urine Total 450 ml 350 ml Height (Feet): 5 Height (Inches): 8.00 Weight (Pounds): 180 General Appearance: lethargic, confused EENT: normal ENT inspection Neck: normal alignment Cardiovascular: normal peripheral pulses, normal rate, regular rhythm Respiratory/Chest: chest wall non-tender, lungs clear, normal breath sounds Abdomen: normal bowel sounds, non tender, soft Extremities: normal inspection Edema: no edema noted Arm (L), no edema noted Arm (R), no edema noted Leg (L), no edema noted Leg (R), no edema noted Pedal (L), no edema noted Pedal (R), no edema noted Generalized Neurologic: motor weakness Skin: normal pigmentation, warm/dry TANIA LEÓN Jun 25, 2017 14:42
[2017-06-25 15:58] VITALS: BP 119/79
--- NOTE | 2017-06-25 18:19 | Infectious Diseases Prog Note ---
Assessment/Plan Assessment/Plan Assessment: Congestion- no PNA- , possible COPD exacerbation -CXR: no acute process -influenza sc not done as patient refused Pyuria- Ucx MRSA (S Vanco, tetracycline, bactrim), E.fecalis(neri S) most likley colonizer ; mod sq cells on u/a, afebrile, no leukocytosis -u/a wbc tntc, nit+, leuk +3; Afebrile, no leukocytosis HTN COPD GERD CVA/TIA renal disease, quadriplegia DVT Neurogenic bladder s/p suprapubic catheter Plan: -D/c empiric Zosyn abx d#6 and monitor off abx -if febrile, leukocytosis, will treat urine pathogens with Linezolid -06/21 SP IV Vancomcyin #2, CEfepime #2 -06/20 SP Ceftriaxone x1 -f/u cx -Monitor CBC/CMP, temperatures Subjective Allergies: Coded Allergies: CIPROFLOXACIN (Verified Allergy, Unknown, 08/23/15) Subjective afebrile no leukocytosis Bcx NTD Objective Vital Signs Last 24 Hour Vital Signs Date Time Temp Pulse Resp B/P (MAP) Pulse Ox O2 Delivery O2 Flow Rate FiO2 06/25/17 15:58 97.5 80 20 119/79 98 97.5 06/25/17 12:00 85 21 131/69 99 06/25/17 09:10 95 Room Air 21 06/25/17 08:00 86 18 120/87 98 06/25/17 04:00 97.7 97 20 129/93 94 Room Air 97.7 06/25/17 00:00 97.9 101 18 121/81 100 97.9 06/25/17 00:00 Room Air 06/24/17 20:00 97.5 71 18 134/81 99 Room Air 97.5 06/24/17 19:21 97 Room Air 21 Height (Feet): 5 Height (Inches): 8.00 Weight (Pounds): 180 Objective General Appearance: no apparent distress, alert HEENT: normocephalic, atraumatic, PERRL Neck: full range of motion, supple/symm/no masses Respiratory: no respiratory distress, no retraction, no accessory muscle use, rhonchi, wheezing Cardiovascular regular rate, rhythm, no edema Gastrointestinal: normal bowel sounds, non tender, soft, non-distended, no guarding, no rebound Genitourinary: other - suprapubic catheter in place Musculoskeletal: other - contracted, quadraplegia Neurologic: alert, responsive, other - At baseline Skin: warm/dry, well hydrated, other - See RN skin exa Current Medications Medications (Trade) Dose Ordered Sig/Fab Route PRN Reason Start Time Stop Time Status Last Admin Dose Admin Acetaminophen (Tylenol) 650 mg Q4H PRN ORAL T>100.5 06/20/17 15:30 07/20/17 15:29 Heparin Sodium (Porcine) (Heparin 5000 units/ml) 5,000 units EVERY 12 HOURS SUBQ 06/20/17 21:00 07/20/17 20:59 06/25/17 08:48 Morphine Sulfate (Morphine Sulfate) 2 mg Q4H PRN IVP Moderate Pain (Pain Scale 4-6) 06/20/17 15:30 06/27/17 15:29 Ondansetron HCl (Zofran) 4 mg Q6H PRN IVP Nausea & Vomiting 06/20/17 15:30 07/20/17 15:29 Phenazopyridine HCl (Pyridium) 100 mg DAILYPRN PRN ORAL dysuria 06/20/17 15:30 07/20/17 15:29 06/21/17 09:35 Piperacillin Sod/ Tazobactam Sod 3.375 gm/Dextrose 110 ml @ 27.5 mls/hr EVERY 8 HOURS IVPB 06/21/17 14:00 06/26/17 13:59 06/25/17 14:28 Polyethylene Glycol (Miralax) 17 gm DAILYPRN PRN ORAL Constipation 06/20/17 15:30 07/20/17 15:29 Temazepam (Restoril) 15 mg HSPRN PRN ORAL Insomnia 06/20/17 21:00 06/27/17 20:59 06/21/17 22:04 Dortohea Macario M.D. Jun 25, 2017 18:19
[2017-06-25 19:47] VITALS: BP 137/86
--- NOTE | 2017-06-25 22:17 | Pulmonology Progress Note ---
Assessment/Plan Problems: (1) Sepsis (2) Encephalopathy chronic (3) History of CVA (cerebrovascular accident) (4) Feeding by G-tube (5) Aphasia Assessment/Plan afebrile, improving neri culture off iv fluids tolerating diet dvt prophylaxis dc planning Subjective ROS Limited/Unobtainable: No Constitutional: Reports: no symptoms HEENT: Repors: no symptoms Allergies: Coded Allergies: CIPROFLOXACIN (Verified Allergy, Unknown, 08/23/15) Objective Last 24 Hour Vital Signs Date Time Temp Pulse Resp B/P (MAP) Pulse Ox O2 Delivery O2 Flow Rate FiO2 06/25/17 20:57 100 Room Air 21 06/25/17 19:47 97.7 94 20 137/86 100 Room Air 97.7 06/25/17 15:58 97.5 80 20 119/79 98 97.5 06/25/17 12:00 85 21 131/69 99 06/25/17 09:10 95 Room Air 21 06/25/17 08:00 86 18 120/87 98 06/25/17 04:00 97.7 97 20 129/93 94 Room Air 97.7 06/25/17 00:00 97.9 101 18 121/81 100 97.9 06/25/17 00:00 Room Air Intake and Output 06/24/17 06/25/17 19:00 07:00 Intake Total 577.5 ml 1017.5 ml Output Total 450 ml 350 ml Balance 127.5 ml 667.5 ml Free Water 50 ml 100 ml IV Total 137.5 ml 137.5 ml Tube Feeding 390 ml 780 ml Output Urine Total 450 ml 350 ml Objective General Appearance: WD/WN HEENT: normocephalic, atraumatic, anicteric Respiratory/Chest: loud rhonchi Cardiovascular: normal peripheral pulses, normal rate, regular rhythm Abdomen: normal bowel sounds, soft, non tender, no organomegaly Genitourinary: normal external genitalia Extremities: no cyanosis Skin: no rash, no lesions Lymphatic: no neck adenopathy, no groin adenopathy Current Medications Medications (Trade) Dose Ordered Sig/Fab Route PRN Reason Start Time Stop Time Status Last Admin Dose Admin Acetaminophen (Tylenol) 650 mg Q4H PRN ORAL T>100.5 06/20/17 15:30 07/20/17 15:29 Heparin Sodium (Porcine) (Heparin 5000 units/ml) 5,000 units EVERY 12 HOURS SUBQ 06/20/17 21:00 07/20/17 20:59 06/25/17 22:07 Morphine Sulfate (Morphine Sulfate) 2 mg Q4H PRN IVP Moderate Pain (Pain Scale 4-6) 06/20/17 15:30 06/27/17 15:29 Ondansetron HCl (Zofran) 4 mg Q6H PRN IVP Nausea & Vomiting 06/20/17 15:30 07/20/17 15:29 Phenazopyridine HCl (Pyridium) 100 mg DAILYPRN PRN ORAL dysuria 06/20/17 15:30 07/20/17 15:29 06/21/17 09:35 Polyethylene Glycol (Miralax) 17 gm DAILYPRN PRN ORAL Constipation 06/20/17 15:30 07/20/17 15:29 Temazepam (Restoril) 15 mg HSPRN PRN ORAL Insomnia 06/20/17 21:00 06/27/17 20:59 06/21/17 22:04 Rigoberto Bryant MD Jun 25, 2017 22:17
[2017-06-26 08:00] VITALS: BP 136/82
[2017-06-26] MEDS: Heparin 5000 units/ml inj SUBQ SCH (08:52)
[2017-06-26 12:00] VITALS: BP 105/71
--- NOTE | 2017-06-26 14:24 | General Progress Note ---
Assessment/Plan Problem List: (1) UTI (urinary tract infection) ICD Codes: N39.0 - Urinary tract infection, site not specified SNOMED: 12173677 (2) COPD exacerbation ICD Codes: J44.1 - Chronic obstructive pulmonary disease with (acute) exacerbation SNOMED: 842222709 (3) Aphasia ICD Codes: R47.01 - Aphasia SNOMED: 70872326 (4) Sepsis ICD Codes: A41.9 - Sepsis, unspecified organism SNOMED: 29964175 (5) History of CVA (cerebrovascular accident) ICD Codes: Z86.73 - Personal history of transient ischemic attack (TIA), and cerebral infarction without residual deficits SNOMED: 511827030 Status: unchanged Assessment/Plan o2 pulm tx ot pt diet abx cbc bmp am Subjective Allergies: Coded Allergies: CIPROFLOXACIN (Verified Allergy, Unknown, 08/23/15) All Systems: reviewed and negative except above Subjective sl confused in bed Objective Last 24 Hour Vital Signs Date Time Temp Pulse Resp B/P (MAP) Pulse Ox O2 Delivery O2 Flow Rate FiO2 06/26/17 12:00 97.3 103 16 105/71 96 97.3 06/26/17 08:00 97.7 100 16 136/82 98 Room Air 97.7 06/25/17 20:57 100 Room Air 21 06/25/17 19:47 97.7 94 20 137/86 100 Room Air 97.7 06/25/17 15:58 97.5 80 20 119/79 98 97.5 Intake and Output 06/25/17 06/26/17 19:00 07:00 Intake Total 682.5 ml 915 ml Output Total 250 ml 300 ml Balance 432.5 ml 615 ml Free Water 100 ml 200 ml IV Total 192.5 ml Tube Feeding 390 ml 715 ml Output Urine Total 250 ml 300 ml # Bowel Movements 1 1 Height (Feet): 5 Height (Inches): 8.00 Weight (Pounds): 180 General Appearance: lethargic, confused EENT: normal ENT inspection Neck: normal alignment Cardiovascular: normal peripheral pulses, normal rate, regular rhythm Respiratory/Chest: chest wall non-tender, lungs clear, normal breath sounds Abdomen: normal bowel sounds, non tender, soft Extremities: normal inspection Edema: no edema noted Arm (L), no edema noted Arm (R), no edema noted Leg (L), no edema noted Leg (R), no edema noted Pedal (L), no edema noted Pedal (R), no edema noted Generalized Neurologic: motor weakness Skin: normal pigmentation, warm/dry TANIA LEÓN Jun 26, 2017 14:24
--- NOTE | 2017-06-26 15:31 | Pulmonology Progress Note ---
Assessment/Plan Problems: (1) Sepsis (2) Encephalopathy chronic (3) History of CVA (cerebrovascular accident) (4) Feeding by G-tube (5) Aphasia Assessment/Plan afebrile, improving neri culture off iv fluids tolerating diet dvt prophylaxis dc planning Subjective ROS Limited/Unobtainable: No Constitutional: Reports: no symptoms Allergies: Coded Allergies: CIPROFLOXACIN (Verified Allergy, Unknown, 08/23/15) Objective Last 24 Hour Vital Signs Date Time Temp Pulse Resp B/P (MAP) Pulse Ox O2 Delivery O2 Flow Rate FiO2 06/26/17 12:00 97.3 103 16 105/71 96 97.3 06/26/17 08:00 97.7 100 16 136/82 98 Room Air 97.7 06/25/17 20:57 100 Room Air 21 06/25/17 19:47 97.7 94 20 137/86 100 Room Air 97.7 06/25/17 15:58 97.5 80 20 119/79 98 97.5 Intake and Output 06/25/17 06/26/17 19:00 07:00 Intake Total 682.5 ml 915 ml Output Total 250 ml 300 ml Balance 432.5 ml 615 ml Free Water 100 ml 200 ml IV Total 192.5 ml Tube Feeding 390 ml 715 ml Output Urine Total 250 ml 300 ml # Bowel Movements 1 1 Objective General Appearance: WD/WN HEENT: normocephalic, atraumatic, anicteric Respiratory/Chest: loud rhonchi Cardiovascular: normal peripheral pulses, normal rate, regular rhythm Abdomen: normal bowel sounds, soft, non tender, no organomegaly Genitourinary: normal external genitalia Extremities: no cyanosis Skin: no rash, no lesions Lymphatic: no neck adenopathy, no groin adenopathy Current Medications Medications (Trade) Dose Ordered Sig/Fab Route PRN Reason Start Time Stop Time Status Last Admin Dose Admin Acetaminophen (Tylenol) 650 mg Q4H PRN ORAL T>100.5 06/20/17 15:30 07/20/17 15:29 Heparin Sodium (Porcine) (Heparin 5000 units/ml) 5,000 units EVERY 12 HOURS SUBQ 06/20/17 21:00 07/20/17 20:59 06/26/17 08:52 Morphine Sulfate (Morphine Sulfate) 2 mg Q4H PRN IVP Moderate Pain (Pain Scale 4-6) 06/20/17 15:30 06/27/17 15:29 06/26/17 05:23 Ondansetron HCl (Zofran) 4 mg Q6H PRN IVP Nausea & Vomiting 06/20/17 15:30 07/20/17 15:29 Phenazopyridine HCl (Pyridium) 100 mg DAILYPRN PRN ORAL dysuria 06/20/17 15:30 07/20/17 15:29 06/21/17 09:35 Polyethylene Glycol (Miralax) 17 gm DAILYPRN PRN ORAL Constipation 06/20/17 15:30 07/20/17 15:29 Temazepam (Restoril) 15 mg HSPRN PRN ORAL Insomnia 06/20/17 21:00 06/27/17 20:59 06/21/17 22:04 Rigoberto Bryant MD Jun 26, 2017 15:31
--- NOTE | 2017-06-26 18:39 | Discharge Summary ---
Discharge Summary Hospital Course Date of Admission Jun 20, 2017 at 15:47 Date of Discharge Jun 26, 2017 at 14:30 Admitting Diagnosis COPD exacerbation AUSTEN Conti is a 57 year old male who was admitted on Jun 20, 2017 at 15:47 for Chronic Obstructive Pulmonary Disease Exacerbation Hospital Course [id number] Discharge Discharge Disposition Patient was discharged to SNF/Subacute Facility(03) Discharge Diagnoses: Marah Kearns NP Jun 26, 2017 18:39
--- NOTE | 2017-06-27 02:46 | Discharge Summary 2 SIG ---
DATE OF ADMISSION: 06/20/2017 DATE OF DISCHARGE: 06/26/2017 CONSULTANTS: 1. Dorothea Macario M.D. 2. Jaylen Bear D.O. BRIEF HOSPITAL COURSE: The patient is a 57-year-old male from [facility], presented to ED complaining of shortness of breath for two days. The patient symptoms have been getting worse. He has history of CVA, COPD and dysphagia. On evaluation at ED, the patient was wheezing and had course breath sounds. There was no leukocytosis. Chest x-ray done showed no acute disease. EKG was in normal sinus rhythm. He was admitted for acute chronic obstructive pulmonary disease exacerbation and was given IV Solu-Medrol. He was started on IV Zosyn and was given nebulizer treatment. He was seen by Infectious Disease specialist. The patient was pancultured. Influenza screen was not done as the patient refused. Urine culture with MRSA and Enterococcus most likely colonizers. The patient had been afebrile. He received six days of IV Zosyn and was monitored off antibiotic treatment. [facility] FINAL DIAGNOSES: 1. Acute chronic obstructive pulmonary disease exacerbation. 2. Cerebrovascular accident with quadriplegia. 3. Dysphagia with gastrostomy tube. 4. Pyuria. 5. Gastroesophageal reflux disease. 6. Hypertension. 7. Neurogenic bladder status post suprapubic catheter. 8. Old deep venous thrombosis. DISPOSITION: The patient was discharged to SNF. DISCHARGE MEDICATIONS: Refer to medication list. Rigoberto Bryant M.D. I have been assigned to dictate discharge summary on this account and I was not involved in the patient's management. Marah Kearns N.P. DR: JASE JOB#: [id number] CC: SABINA
== END 2017-06-26 14:30 | DRG 140 ==
LOC: EDBD 12:00 → EMR 15:30 → 4W 15:47 → EDBEDREQ 17:03
DX: J44.1 Chronic obstructive pulmonary disease with (acute) exacerbation (principal); G82.50 Quadriplegia, unspecified; N31.9 Neuromuscular dysfunction of bladder, unspecified; R47.01 Aphasia; R13.10 Dysphagia, unspecified; Z43.1 Encounter for attention to gastrostomy; N39.0 Urinary tract infection, site not specified; I10 Essential (primary) hypertension; K21.9 Gastro-esophageal reflux disease without esophagitis; Z86.73 Personal history of transient ischemic attack (TIA), and cerebral infarction without residual deficits; Z88.1 Allergy status to other antibiotic agents; I69.365 Other paralytic syndrome following cerebral infarction, bilateral; Z86.718 Personal history of other venous thrombosis and embolism; Z22.322 Carrier or suspected carrier of Methicillin resistant Staphylococcus aureus
CPT/HCPCS: 36415; 71045; 80053; 81003; 83735; 84100; 85025; 87040; 87081; 87086; 87181; 93005; 94640; 94664; 94760; 97803; 99285; J7620

== ENCOUNTER 2018-01-03 13:58 | Emergency (ER) | payer MEDICAID ==
[~2018-01-03] VITALS: Ht 170.2 cm; Wt 113.4 kg
[~2018-01-03 13:58] MED LIST changes: +CRANBERRY450 M4 GT; +mylanta GT
[2018-01-03 14:00] VITALS: BP 109/89
[2018-01-03] MEDS ORDERED: FLEET ENEMA133 M1 RC (14:05)
[2018-01-03] MEDS ORDERED: COLACE100 MG GT (14:05)
[2018-01-03] MEDS ORDERED: TYLENOL EXTRA500 MG GT (14:05)
[2018-01-03] MEDS ORDERED: XARELTO15 MG GT (14:05)
--- NOTE | 2018-01-03 14:24 | Emergency Room Report ---
History of Present Illness General Chief Complaint: General Complaint Source: Patient, Medical Record Present Illness HPI Patient is a 57-year-old male who presented after being sent from [facility]. Patient noted to have hole to the scrotum.The patient reportedly had been having some abnormal laboratory values. The patient had a previous had suprapubic catheter placed. The patient is noted to have COPD as well as a G- tube dependence. The patient was poorly verbal. He is able to move his extremities but has some pronounced weakness to his left upper extremity. The patient was noted to have been oriented 1 Allergies: Coded Allergies: CIPROFLOXACIN (Verified Allergy, Unknown, 08/23/15) Patient History Past Medical History: see triage record Reviewed Nursing Documentation: PMH: Agreed; PSxH: Agreed Nursing Documentation-PMH Past Medical History: No History, Except For Hx Cardiac Problems: Yes - tachycardia, DVT Hx COPD: Yes Hx Diabetes: Yes - type 2 Hx Cancer: No Hx Gastrointestinal Problems: Yes - GERD, gtube Hx Neurological Problems: Yes - encephalopathy Hx Cerebrovascular Accident: Yes - quadriplegia Hx Transient Ischemic Attacks: Yes Hx Seizures: Yes - CRF Hx Paralysis: Yes - paraplegic Hx Speech Problem: Yes Hx Aphasia: Yes Review of Systems All Other Systems: limited - by mental status Physical Exam Vital Signs Date Time Temp Pulse Resp B/P (MAP) Pulse Ox O2 Delivery O2 Flow Rate FiO2 01/03/18 13:56 98.6 94 16 123/87 96 Room Air 98.6 Sp02 EP Interpretation: reviewed, normal General Appearance: normal inspection, alert, obese, Chronically Ill Head: atraumatic ENT: normal ENT inspection, hearing grossly normal Neck: normal inspection, supple, no bony tend, limited range of motion Respiratory: normal inspection, lungs clear, normal breath sounds, no respiratory distress, no retraction, no wheezing Cardiovascular #1: regular rate, rhythm, edema Gastrointestinal: normal inspection, normal bowel sounds, non tender, soft, no guarding Genitourinary: no CVA tenderness, other - large defect to midline scrotum and urethra Musculoskeletal: normal inspection, back normal, normal range of motion Neurologic: normal inspection, alert, responsive, motor weakness - left upper extremity Psychiatric: mood/affect normal Skin: no rash, other Medical Decision Making Diagnostic Impression: Primary Impression: UTI (urinary tract infection) Additional Impressions: Encephalopathy chronic Dehydration Suprapubic catheter Hypospadias in male ER Course Patient presented for scrotal defect. Differential diagnosis included was not limited to fistula, iatrogenic hypospadias, urinary tract infection among others. The patient was noted to have indwelling suprapubic catheter placed had this is noted to have some cloudy bloody urine. Patient was given fluids and IV antibiotics. I discussed the patient's scrotal defect with urology Dr. Lara. Who stated the patient has been seen by him in the past and was noted to have chronic iatrogenic hypospadias. Dr. Lara stated this was not something that would require surgical management. The patient was noted to have some evidence of hematuria. This is likely related to anticoagulation. The patient will be been [facility]. There does not appear to be any evidence of acute infection to the urethral defect. The patient appears to be chronic. The patient is to follow up with urology as an outpatient patient is to return if any worsening condition or if any changes in status that are concerning. This report is dictated with [employer] budget analyst software which may occasionally lead to discrepancies related to use of this software. Labs Test 01/03/18 14:30 01/03/18 15:10 White Blood Count 9.9 K/UL (4.8-10.8) Red Blood Count 5.08 M/UL (4.70-6.10) Hemoglobin 14.6 G/DL (14.2-18.0) Hematocrit 46.2 % (42.0-52.0) Mean Corpuscular Volume 91 FL (80-99) Mean Corpuscular Hemoglobin 28.8 PG (27.0-31.0) Mean Corpuscular Hemoglobin Concent 31.7 G/DL (32.0-36.0) Red Cell Distribution Width 13.3 % (11.6-14.8) Platelet Count 229 K/UL (150-450) Mean Platelet Volume 9.1 FL (6.5-10.1) Neutrophils (%) (Auto) 57.3 % (45.0-75.0) Lymphocytes (%) (Auto) 28.9 % (20.0-45.0) Monocytes (%) (Auto) 9.9 % (1.0-10.0) Eosinophils (%) (Auto) 2.2 % (0.0-3.0) Basophils (%) (Auto) 1.7 % (0.0-2.0) Urine Color Brown Urine Appearance Very cloudy Urine pH 9 (4.5-8.0) Urine Specific [place] 1.010 (1.005-1.035) Urine Protein 3+ (NEGATIVE) Urine Glucose (UA) Negative (NEGATIVE) Urine Ketones 1+ (NEGATIVE) Urine Blood 5+ (NEGATIVE) Urine Nitrite Positive (NEGATIVE) Urine Bilirubin Negative (NEGATIVE) Urine Urobilinogen Normal MG/DL (0.0-1.0) Urine Leukocyte Esterase 3+ (NEGATIVE) Urine RBC Tntc /HPF (0 - 0) Urine WBC 0-2 /HPF (0 - 0) Urine Squamous Epithelial Cells None /LPF (NONE/OCC) Urine Triple Phosphate Crystals Moderate /LPF (NONE) Urine Amorphous Sediment Many /LPF (NONE) Urine Bacteria Many /HPF (NONE) Sodium Level 141 MMOL/L (136-145) Potassium Level 4.0 MMOL/L (3.5-5.1) Chloride Level 106 MMOL/L (98-107) Carbon Dioxide Level 29 MMOL/L (21-32) Anion Gap 6 mmol/L (5-15) Blood Urea Nitrogen 28 mg/dL (7-18) Creatinine 0.7 MG/DL (0.55-1.30) Estimat Glomerular Filtration Rate > 60 mL/min (>60) Glucose Level 104 MG/DL (74-106) Calcium Level 9.2 MG/DL (8.5-10.1) Total Bilirubin 0.3 MG/DL (0.2-1.0) Aspartate Amino Transf (AST/SGOT) 14 U/L (15-37) Alanine Aminotransferase (ALT/SGPT) 19 U/L (12-78) Alkaline Phosphatase 74 U/L (46-116) Troponin I 0.000 ng/mL (0.000-0.056) Total Protein 8.9 G/DL (6.4-8.2) Albumin 3.2 G/DL (3.4-5.0) Globulin 5.7 g/dL Albumin/Globulin Ratio 0.6 (1.0-2.7) Prothrombin Time 11.1 SEC (9.30-11.50) Prothromb Time International Ratio 1.1 (0.9-1.1) Activated Partial Thromboplast Time 32 SEC (23-33) EKG Diagnostic Results Rate: normal - 97 Rhythm: NSR ST Segments: no acute changes Last Vital Signs Date Time Temp Pulse Resp B/P (MAP) Pulse Ox O2 Delivery O2 Flow Rate FiO2 01/03/18 13:56 98.6 94 16 123/87 96 Room Air 98.6 Status: improved Disposition: XFER SNF Condition: Stable Froy Garcia MD Jan 03, 2018 14:24
[2018-01-03] MEDS ORDERED: cefTRIAXone 1 GM in NS 55 ML IVPB ONE (14:45)
[2018-01-03 15:15] LABS: BASOPHILS % (AUTO) 1.7 % (0.0-2.0); EOSINOPHILS % (AUTO) 2.2 % (0.0-3.0); HEMATOCRIT 46.2 % (42.0-52.0); HEMOGLOBIN 14.6 G/DL (14.2-18.0); LYMPHOCYTES % (AUTO) 28.9 % (20.0-45.0); MEAN CORPUSCULAR VOLUME 91 FL (80-99); MONOCYTES % (AUTO) 9.9 % (1.0-10.0); NEUTROPHILS % (AUTO) 57.3 % (45.0-75.0); PLATELET COUNT 229 K/UL (150-450); RED BLOOD COUNT 5.08 M/UL (4.70-6.10); RED CELL DISTRIBUTION WIDTH 13.3 % (11.6-14.8); WHITE BLOOD COUNT 9.9 K/UL (4.8-10.8)
[2018-01-03 15:22] LABS: APPEARANCE,URINE VERY CLOUDY; BILIRUBIN, URINE NEGATIVE (NEGATIVE); GLUCOSE, URINE (UA) NEGATIVE (NEGATIVE); KETONES,URINE 1+ (NEGATIVE); LEUKOCYTE ESTERASE ,URINE 3+ (NEGATIVE); NITRITE,URINE POSITIVE (NEGATIVE); PH,URINE 9 (4.5-8.0); PROTEIN,URINE 3+ (NEGATIVE); UROBILINOGEN,URINE NORMAL MG/DL (0.0-1.0)
[2018-01-03 15:23] LABS: ANION GAP 6 mmol/L (5-15); BLOOD UREA NITROGEN 28 mg/dL (7-18); CALCIUM 9.2 MG/DL (8.5-10.1); CARBON DIOXIDE 29 MMOL/L (21-32); CHLORIDE 106 MMOL/L (98-107); CREATININE 0.7 MG/DL (0.55-1.30); SODIUM 141 MMOL/L (136-145)
[2018-01-03 15:24] LABS: COLOR,URINE BROWN
[2018-01-03 15:28] LABS: ALANINE AMINOTRANSFERASE 19 U/L (12-78); ALBUMIN 3.2 G/DL (3.4-5.0); ALBUMIN/GLOBULIN RATIO 0.6 (1.0-2.7); ALKALINE PHOSPHATASE 74 U/L (46-116); ASPARTATE AMINO TRANSFERASE 14 U/L (15-37); BILIRUBIN,TOTAL 0.3 MG/DL (0.2-1.0)
[2018-01-03 15:43] VITALS: BP 108/83
[2018-01-03 16:06] LABS: INR 1.1 (0.9-1.1)
[2018-01-03 18:12] VITALS: BP 110/82
== END 2018-01-03 18:10 ==
LOC: EDBD 13:58 → EMR 14:25 → EDBEDREQ 14:51 → EMR 18:10
DX: N39.0 Urinary tract infection, site not specified (principal); G93.40 Encephalopathy, unspecified; E86.0 Dehydration; Q54.9 Hypospadias, unspecified; R31.9 Hematuria, unspecified; Z46.6 Encounter for fitting and adjustment of urinary device; J44.9 Chronic obstructive pulmonary disease, unspecified; K21.9 Gastro-esophageal reflux disease without esophagitis; E11.22 Type 2 diabetes mellitus with diabetic chronic kidney disease; N18.9 Chronic kidney disease, unspecified; Z93.1 Gastrostomy status; Z86.718 Personal history of other venous thrombosis and embolism; G82.20 Paraplegia, unspecified; R47.01 Aphasia
CPT/HCPCS: 36415; 80053; 81001; 84484; 85025; 85610; 85730; 86850; 86900; 86901; 87040; 87086; 93005; 96360; 99284; J0696; 87181

== ENCOUNTER 2018-03-30 17:44 | Inpatient (IN) | payer MEDICAID ==
[~2018-03-30] VITALS: Ht 182.9 cm; Wt 107.7 kg
[~2018-03-30 17:44] MED LIST changes: +COLACE100 MG GT; +TYLENOL EXTRA500 MG GT
[2018-03-30 18:28] VITALS: BP 103/76
[2018-03-30 18:29] LABS: HEMATOCRIT 49.6 % (42.0-52.0); HEMOGLOBIN 15.6 G/DL (14.2-18.0); MEAN CORPUSCULAR VOLUME 90 FL (80-99); PLATELET COUNT 214 K/UL (150-450); RED CELL DISTRIBUTION WIDTH 13.4 % (11.6-14.8); WHITE BLOOD COUNT 19.7 K/UL (4.8-10.8)
[2018-03-30] MEDS ORDERED: Acetaminophen 650mg/20.3ml GT ONE (18:30)
--- NOTE | 2018-03-30 18:41 | Diagnostic Imaging Report ---
History: AMS Exam: XR CXR 1 VIEW Comparison: 06/20/2017 FINDINGS: The lungs appear clear. Low lung volumes with mild elevation of the right hemidiaphragm again noted. The cardiac and mediastinal contours appear within limits. Left-sided rib fracture deformities again noted. IMPRESSION: No evidence of acute disease.
[2018-03-30 18:42] LABS: ANION GAP 11 mmol/L (5-15); BLOOD UREA NITROGEN 36 mg/dL (7-18); CARBON DIOXIDE 28 MMOL/L (21-32); CHLORIDE 111 MMOL/L (98-107); CREATININE 1.3 MG/DL (0.55-1.30); POTASSIUM 3.8 MMOL/L (3.5-5.1); SODIUM 150 MMOL/L (136-145)
[2018-03-30 18:55] LABS: ALANINE AMINOTRANSFERASE 37 U/L (12-78); ALBUMIN 3.4 G/DL (3.4-5.0); ALBUMIN/GLOBULIN RATIO 0.6 (1.0-2.7); ALKALINE PHOSPHATASE 92 U/L (46-116); ASPARTATE AMINO TRANSFERASE 29 U/L (15-37); BILIRUBIN,TOTAL 0.5 MG/DL (0.2-1.0); CKMB < 0.5 NG/ML (0.0-3.6); CREATINE KINASE 103 U/L (26-308)
[2018-03-30 19:17] LABS: APPEARANCE,URINE CLOUDY; BILIRUBIN, URINE NEGATIVE (NEGATIVE); GLUCOSE, URINE (UA) NEGATIVE (NEGATIVE); KETONES,URINE 1+ (NEGATIVE); LEUKOCYTE ESTERASE ,URINE 3+ (NEGATIVE); NITRITE,URINE NEGATIVE (NEGATIVE); PH,URINE 7 (4.5-8.0); PROTEIN,URINE 3+ (NEGATIVE); UROBILINOGEN,URINE 1 MG/DL (0.0-1.0)
[2018-03-30 19:18] LABS: COLOR,URINE YELLOW
[2018-03-30] MEDS ORDERED: Piperacillin/Tazobactam 3.375 GM in NS 110 ML IVPB ONE (19:30)
--- NOTE | 2018-03-30 19:32 | Emergency Room Report ---
History of Present Illness General Chief Complaint: Fever Source: Patient Present Illness HPI 57-year-old male presents ED for evaluation. Coming from group home facility for evaluation of fever. Temp 101.6 at group home facility today. Patient is nonverbal at baseline. Has G-tube. No signs of distress upon arrival. No nausea or vomiting. No respiratory distress. No other aggravating relieving factors. Denies any other associated symptoms Allergies: Coded Allergies: CIPROFLOXACIN (Verified Allergy, Unknown, 08/23/15) Patient History Past Medical History: DM, COPD, GERD, CVA/TIA Past Surgical History: none Pertinent Family History: none Social History: Denies: smoking, alcohol use, drug use Immunizations: UTD Reviewed Nursing Documentation: PMH: Agreed; PSxH: Agreed Nursing Documentation-PMH Past Medical History: No History, Except For Hx Cardiac Problems: Yes - tachycardia, DVT Hx COPD: Yes Hx Diabetes: Yes - type 2 Hx Cancer: No Hx Gastrointestinal Problems: Yes - GERD, gtube Hx Neurological Problems: Yes - encephalopathy Hx Cerebrovascular Accident: Yes - quadriplegia Hx Transient Ischemic Attacks: Yes Hx Seizures: Yes - CRF Hx Paralysis: Yes - paraplegic Hx Speech Problem: Yes Hx Aphasia: Yes Review of Systems All Other Systems: limited Physical Exam Vital Signs Date Time Temp Pulse Resp B/P (MAP) Pulse Ox O2 Delivery O2 Flow Rate FiO2 03/30/18 17:41 99.3 129 20 109/73 94 Room Air Sp02 EP Interpretation: reviewed, normal General Appearance: no apparent distress, GCS 15, non-toxic, other - nonverbal Head: normocephalic Eyes: bilateral eye normal inspection, bilateral eye PERRL ENT: normal ENT inspection Neck: normal inspection Respiratory: chest non-tender, lungs clear, normal breath sounds, speaking full sentences Cardiovascular #1: regular rate, rhythm, no edema Gastrointestinal: normal bowel sounds, non tender, soft, non-distended, no guarding, no rebound Rectal: deferred Genitourinary: no CVA tenderness Musculoskeletal: back normal Neurologic: other - nonverbal Psychiatric: other - nonverbal Skin: normal inspection Lymphatic: normal inspection Medical Decision Making Diagnostic Impression: Primary Impression: UTI (urinary tract infection) Qualified Codes: N39.0 - Urinary tract infection, site not specified Additional Impressions: Encephalopathy chronic Hypernatremia ER Course Hospital Course 57 yo M presents to ED for evaluation of fever from SNF Differential diagnoses include: Pneumonia, UTI, sepsis, dehydration, OK/ unstable angina Clinical course Patient placed on stretcher. On monitoring specialist with tachycardia. Temp 100.6. After initial history and physical, I ordered labs, IV fluids, EKG, chest x-ray , blood cultures, UA. given tylenol Labs - Na 150, noted leukocytosis, UA + bacteria, lactate 1.9 EKG - sinus tachycardia, no acute ischemic changes interpreted by me CXR - no acute process last urine Cx shows multiple organisms growing - sensitive to Zosyn zosyn given. given IVFs. tachycardia resolving. Case discussed with Dr Mclaughlin and they agreed to admit patient to their service for further care and support I feel this is a highly complex case requiring extensive working including EKG/ Rhythm strip, Xray/CT/US, Blood/urine lab work, repeat exams while in ED, and administration of strong opiates/narcotics for pain control, admission to hospital or close patient follow up. Diagnosis - UTI, chronic encepahloatphy, hypernatremia Patient admitted to telemetry in serious condition Labs Test 03/30/18 18:10 03/30/18 19:01 White Blood Count 19.7 K/UL (4.8-10.8) Red Blood Count 5.50 M/UL (4.70-6.10) Hemoglobin 15.6 G/DL (14.2-18.0) Hematocrit 49.6 % (42.0-52.0) Mean Corpuscular Volume 90 FL (80-99) Mean Corpuscular Hemoglobin 28.3 PG (27.0-31.0) Mean Corpuscular Hemoglobin Concent 31.4 G/DL (32.0-36.0) Red Cell Distribution Width 13.4 % (11.6-14.8) Platelet Count 214 K/UL (150-450) Mean Platelet Volume 10.2 FL (6.5-10.1) Neutrophils (%) (Auto) % (45.0-75.0) Lymphocytes (%) (Auto) % (20.0-45.0) Monocytes (%) (Auto) % (1.0-10.0) Eosinophils (%) (Auto) % (0.0-3.0) Basophils (%) (Auto) % (0.0-2.0) Differential Total Cells Counted 100 Neutrophils % (Manual) 80 % (45-75) Lymphocytes % (Manual) 7 % (20-45) Monocytes % (Manual) 4 % (1-10) Eosinophils % (Manual) 0 % (0-3) Basophils % (Manual) 1 % (0-2) Band Neutrophils 8 % (0-8) Platelet Estimate Adequate Platelet Morphology Normal Red Blood Cell Morphology Normal Sodium Level 150 MMOL/L (136-145) Potassium Level 3.8 MMOL/L (3.5-5.1) Chloride Level 111 MMOL/L (98-107) Carbon Dioxide Level 28 MMOL/L (21-32) Anion Gap 11 mmol/L (5-15) Blood Urea Nitrogen 36 mg/dL (7-18) Creatinine 1.3 MG/DL (0.55-1.30) Estimat Glomerular Filtration Rate 56.5 mL/min (>60) Glucose Level 114 MG/DL (74-106) Lactic Acid Level 1.90 mmol/L (0.4-2.0) Calcium Level 10.0 MG/DL (8.5-10.1) Total Bilirubin 0.5 MG/DL (0.2-1.0) Aspartate Amino Transf (AST/SGOT) 29 U/L (15-37) Alanine Aminotransferase (ALT/SGPT) 37 U/L (12-78) Alkaline Phosphatase 92 U/L (46-116) Total Creatine Kinase 103 U/L (26-308) Creatine Kinase MB < 0.5 NG/ML (0.0-3.6) Creatine Kinase MB Relative Index 0.4 Troponin I 0.000 ng/mL (0.000-0.056) Pro-B-Type Natriuretic Peptide 66 pg/mL (0-125) Total Protein 9.0 G/DL (6.4-8.2) Albumin 3.4 G/DL (3.4-5.0) Globulin 5.6 g/dL Albumin/Globulin Ratio 0.6 (1.0-2.7) Urine Color Yellow Urine Appearance Cloudy Urine pH 7 (4.5-8.0) Urine Specific [place] 1.010 (1.005-1.035) Urine Protein 3+ (NEGATIVE) Urine Glucose (UA) Negative (NEGATIVE) Urine Ketones 1+ (NEGATIVE) Urine Blood 5+ (NEGATIVE) Urine Nitrite Negative (NEGATIVE) Urine Bilirubin Negative (NEGATIVE) Urine Urobilinogen 1 MG/DL (0.0-1.0) Urine Leukocyte Esterase 3+ (NEGATIVE) Urine RBC Tntc /HPF (0 - 0) Urine WBC Tntc /HPF (0 - 0) Urine Squamous Epithelial Cells None /LPF (NONE/OCC) Urine Bacteria Moderate /HPF (NONE) EKG Diagnostic Results Rate: tachycardiac Rhythm: NSR ST Segments: no acute changes ASA given to the pt in ED: No Rhythm Strip Diag. Results EP Interpretation: yes Rhythm: NSR, no PVC's, no ectopy Last Vital Signs Date Time Temp Pulse Resp B/P (MAP) Pulse Ox O2 Delivery O2 Flow Rate FiO2 03/30/18 18:28 128 18 Room Air 03/30/18 18:28 100.6 103/76 93 Status: improved Disposition: ADMITTED INPATIENT Condition: Serious Referrals: NON PHYSICIAN (PCP) Willie Campos MD Mar 30, 2018 19:32
[2018-03-30 20:29] VITALS: BP 114/83
[2018-03-30 22:30] VITALS: BP 110/78
[2018-03-31] MEDS ORDERED: Piperacillin/Tazobactam 3.375 GM in D5W 110 ML IVPB SCH (02:00)
[2018-03-31 04:00] VITALS: BP 102/74
[2018-03-31] MEDS: Piperacillin/Tazobactam 3.375 GM in D5W 110 ML IVPB SCH ×3 (06:29→22:04)
[2018-03-31] MEDS: NovoLOG Insulin Flexpen SUBQ SCH ×4 (06:29→23:33)
[2018-03-31] MEDS ORDERED: NovoLOG Insulin Flexpen SUBQ SCH ×2 (06:30)
[2018-03-31 08:00] VITALS: BP 112/75
[2018-03-31 08:01] LABS: HEMATOCRIT 50.4 % (42.0-52.0); HEMOGLOBIN 16.1 G/DL (14.2-18.0); MEAN CORPUSCULAR VOLUME 92 FL (80-99); PLATELET COUNT 180 K/UL (150-450); RED BLOOD COUNT 5.48 M/UL (4.70-6.10); RED CELL DISTRIBUTION WIDTH 13.8 % (11.6-14.8); WHITE BLOOD COUNT 12.5 K/UL (4.8-10.8)
[2018-03-31 08:34] LABS: ALANINE AMINOTRANSFERASE 39 U/L (12-78); ALBUMIN 3.3 G/DL (3.4-5.0); ALBUMIN/GLOBULIN RATIO 0.6 (1.0-2.7); ALKALINE PHOSPHATASE 92 U/L (46-116); ANION GAP 12 mmol/L (5-15); ASPARTATE AMINO TRANSFERASE 30 U/L (15-37); BILIRUBIN,TOTAL 0.6 MG/DL (0.2-1.0); BLOOD UREA NITROGEN 30 mg/dL (7-18); CALCIUM 9.1 MG/DL (8.5-10.1); CARBON DIOXIDE 26 MMOL/L (21-32); CHLORIDE 111 MMOL/L (98-107); CREATININE 1.6 MG/DL (0.55-1.30); POTASSIUM 3.7 MMOL/L (3.5-5.1); SODIUM 149 MMOL/L (136-145)
[2018-03-31] MEDS: Xarelto 15mg tab GT SCH (09:21)
[2018-03-31 12:00] VITALS: BP 108/54
--- NOTE | 2018-03-31 14:08 | Cardiology Report ---
APPROVED REPORT EKG Measurement Heart [id number] [id number] Sinus tachycardia Possible Right ventricular hypertrophy Possible Lateral infarct, age undetermined Inferior infarct, age undetermined Abnormal ECG
[2018-03-31 16:00] VITALS: BP 107/77
[2018-03-31 20:00] VITALS: BP 131/82
[2018-04-01] VITALS: BP 105/60
[2018-04-01] MEDS ORDERED: Vancomycin 1 GM in D5W 275 ML IVPB ONE (02:00)
--- NOTE | 2018-04-01 03:30 | Progress Note ---
DATE: 03/31/2018 CARDIOLOGY PROGRESS NOTE SUBJECTIVE: The patient's condition remains tenuous. He has had episodes of agitation. He continues to have fever spikes and sinus tachycardic episodes as well. OBJECTIVE: VITAL SIGNS: Blood pressure 131/82, pulse 127, respiratory rate 20, and temperature 102.2. LUNGS: Bilateral breath sounds. Scattered rhonchi. HEART: Regular rhythm. Rapid rate. Normal S1 and S2. ABDOMEN: Soft. EXTREMITIES: Trace edema. LABORATORY DATA: White count 12.5 and hemoglobin 16.1. Sodium 149, potassium 3.7, chloride 111, bicarbonate 26, BUN 30, creatinine 1.6, and albumin 3.3. TSH 0.56. Chest x-ray yesterday revealed left-sided rib fractures, low lung volumes and no acute disease. IMPRESSION: 1. Sepsis. 2. Secondary sinus tachycardia. 3. Persistent fevers. 4. Urinary tract infection. 5. Possible aspiration pneumonia. 6. Dehydration. 7. Hyponatremia. 8. Hyperchloremia. 9. Acute on chronic kidney injury with prerenal azotemia. 10. Metabolic encephalopathy. 11. Toxic encephalopathy. 12. History of DVT and pulmonary embolus. PLAN: 1. Continue hypotonic IV fluids, antipyretics. 2. Continue Zosyn, add vancomycin, maintain full anticoagulation. 3. Repeat chest x-ray. 4. Continue cardiac monitoring. Quentin Mclaughlin M.D. DR: ARNALDO JOB#: [id number] CC:
[2018-04-01 04:00] VITALS: BP 87/63
--- NOTE | 2018-04-01 04:30 | History and Physical Report ---
DATE OF ADMISSION: 03/30/2018 REASON FOR ADMISSION: Sepsis. HISTORY OF PRESENT ILLNESS: This is a 57-year-old male, who resides at a shelter facility. He is debilitated due to a prior stroke. He has a G-tube as well as a suprapubic catheter. He was referred to the emergency room for evaluation of fevers to 101.6. No other associated symptoms were noted including nausea, vomiting, diarrhea, cough, sputum production, or respiratory distress. PAST MEDICAL HISTORY: Includes type 2 diabetes mellitus, COPD, cerebrovascular disease, cerebrovascular accident, dysphagia, GERD, gastrostomy tube, aphasia, functional quadriplegia, history of DVT and pulmonary embolus, and chronic kidney disease. ALLERGIES: Include ciprofloxacin. MEDICATIONS: Prior to admission, reviewed and reconciled. SOCIAL HISTORY: Not obtainable from records. FAMILY HISTORY: Not known. REVIEW OF SYSTEMS: Not obtainable; however, records from the prior hospitalization at this facility were reviewed and records from the shelter facility and pertinent data as outlined above. PHYSICAL EXAMINATION: VITAL SIGNS: Blood pressure 109/73, pulse 129, respiratory rate 20, and temperature 99.3. HEENT: Temporal wasting. Pale conjunctivae. Oropharynx clear. Mucous membranes dry. NECK: Supple. Jugular venous pressure normal. LUNGS: Clear with diminished breath sounds. CARDIAC: Regular rhythm. Rapid rate. Normal S1 and S2 with no murmur or rub. ABDOMEN: Soft and nontender. G-tube and suprapubic catheter sites noted with no erythema at the site. EXTREMITIES: Without edema. SKIN: Intact. There is one skin tear pictured in the chart. LABORATORY DATA: White count 19.7 and hemoglobin 15.6. Sodium 150, potassium 3.8, chloride 111, bicarb 28, BUN 36, and creatinine 1.3. Albumin is 3.4. Lactic acid 1.9. Urinalysis with too numerous to count white cells and moderate bacteria. IMPRESSION: 1. Sepsis, complicated urinary tract infection. 2. Suprapubic catheter. 3. Cerebrovascular accident. 4. Dysphagia with G-tube. 5. History of DVT and PE, on full anticoagulation with rivaroxaban. 6. Secondary sinus tachycardia. 7. Type 2 diabetes mellitus with complications. 8. Hypovolemia. 9. Dehydration. 10. Hypernatremia. 11. Hyperchloremia. 12. Acute on chronic kidney injury. PLAN: 1. Panculture. 2. Cardiac monitoring. 3. Broad-spectrum antibiotics. 4. Hypotonic IV fluids. 5. Continue full anticoagulation with rivaroxaban. 6. Venous duplex to assess for status of DVT. 7. Respiratory hygiene. 8. Nutrition by feeding tube. 9. Urologic consultation to be considered for changing for the catheter. Quentin Mclaughlin M.D. DR: NENITA JOB#: [id number] CC:
[2018-04-01] MEDS: Piperacillin/Tazobactam 3.375 GM in D5W 110 ML IVPB SCH ×2 (05:45→14:12)
[2018-04-01] MEDS: NovoLOG Insulin Flexpen SUBQ SCH ×3 (05:46→18:11)
[2018-04-01] MEDS ORDERED: Sodium Chloride 500ML 500 ML IV ONE (06:45)
[2018-04-01 07:18] LABS: ALANINE AMINOTRANSFERASE 23 U/L (12-78); ALBUMIN 2.4 G/DL (3.4-5.0); ALBUMIN/GLOBULIN RATIO 0.4 (1.0-2.7); ALKALINE PHOSPHATASE 73 U/L (46-116); ANION GAP 8 mmol/L (5-15); ASPARTATE AMINO TRANSFERASE 23 U/L (15-37); BILIRUBIN,TOTAL 0.4 MG/DL (0.2-1.0); BLOOD UREA NITROGEN 26 mg/dL (7-18); CALCIUM 8.1 MG/DL (8.5-10.1); CARBON DIOXIDE 26 MMOL/L (21-32); CHLORIDE 109 MMOL/L (98-107); CREATININE 1.6 MG/DL (0.55-1.30); HEMATOCRIT 37.4 % (42.0-52.0); HEMOGLOBIN 12.2 G/DL (14.2-18.0); MEAN CORPUSCULAR VOLUME 89 FL (80-99); PLATELET COUNT 137 K/UL (150-450); POTASSIUM 3.9 MMOL/L (3.5-5.1); RED BLOOD COUNT 4.19 M/UL (4.70-6.10); RED CELL DISTRIBUTION WIDTH 13.4 % (11.6-14.8); SODIUM 142 MMOL/L (136-145)
[2018-04-01 08:00] VITALS: BP 93/70
[2018-04-01] MEDS: Xarelto 15mg tab GT SCH (08:02)
[2018-04-01] MEDS ORDERED: Sterile Water Irrig 1000ml IRRIG ONE (10:31)
[2018-04-01] MEDS ORDERED: D5W 275ml ONE (10:31)
[2018-04-01] MEDS ORDERED: 1/2 NS 1000ml IV ONE (10:31)
[2018-04-01] MEDS ORDERED: Tubing IV Secondary IV ONE (10:31)
[2018-04-01] MEDS ORDERED: NS 275ml ONE (10:31)
[2018-04-01] MEDS ORDERED: NS 500ML ONE (10:31)
--- NOTE | 2018-04-01 10:33 | Diagnostic Imaging Report ---
Indication: Cough Technique: One view of the chest Comparison: 03/30/2018 Findings: Tortuous ectatic aorta again demonstrated. The lungs and pleural spaces are clear. There is no significant interim change Impression: Unchanged, over 2 days, findings as above.
[2018-04-01 12:00] VITALS: BP 122/87
[2018-04-01] MEDS ORDERED: Vancomycin 500mg/D5W 110ml IVPB SCH ×2 (15:00)
[2018-04-01 16:00] VITALS: BP 121/75
--- NOTE | 2018-04-01 18:15 | Consultation ---
DATE OF CONSULTATION: 04/01/2018 INFECTIOUS DISEASE CONSULTATION CONSULTING PHYSICIAN: Moon Marques M.D. REFERRING PHYSICIAN: Quentin Mclaughlin M.D. REASON FOR CONSULTATION: Urinary tract infection. HISTORY OF PRESENT ILLNESS: This is a 57-year-old gentleman with history of stroke, diabetes, CVA, COPD, DVT, pulmonary embolism, and chronic kidney disease, who came in with a fever of 101.6. He has a suprapubic catheter and now he is found to have urinary tract infection, and Infectious Disease consultation has been obtained for antibiotics. PAST MEDICAL HISTORY: 1. Diabetes. 2. COPD. 3. CVA. 4. Dysphagia. 5. GERD. 6. Status post G-tube placement. 7. Status post suprapubic catheter placement. 8. Aphasia. 9. Quadriplegia. 10. History of DVT. 11. History of pulmonary embolism. 12. Chronic kidney disease. SOCIAL HISTORY: Unknown. FAMILY HISTORY: Unknown. REVIEW OF SYSTEMS: Unable to obtain currently. MEDICATIONS: As an inpatient, he is on IV vancomycin, famotidine, Xarelto, Zosyn, insulin, and Tylenol. ALLERGIES: Ciprofloxacin noted in the chart. PHYSICAL EXAMINATION: VITAL SIGNS: Temperature 99, T-max of 102.2. Pulse 123, respiratory rate 19, and blood pressure 122/87. O2 saturation of 97%. HEENT: Pupils are equally reactive to light and accommodation. Mouth appears clean without thrush. NECK: Supple. No adenopathy. No JVD. CARDIOVASCULAR: Regular rate and rhythm. No murmurs. LUNGS: Clear to auscultation bilaterally. No crackles. No wheezes. ABDOMEN: Soft and nontender. No organomegaly. G-tube site appears clean. Suprapubic catheter noted. EXTREMITIES: No cyanosis, no clubbing, no edema. LABORATORY AND DIAGNOSTIC DATA: White count 19, hemoglobin 12.2, hematocrit 37.4, MCV 89, and platelet count of 137,000 with neutrophils of 77%. Sodium 142, potassium 3.9, chloride 109, bicarb 26, BUN 26, and creatinine 1.6. Glucose 115. Calcium 8.1. Total bilirubin 0.4. AST 23, ALT 23, and alkaline phosphatase 73. Total protein 7.8, albumin 2.4. UA showing too numerous to count white cells. 03/30/2018, urine culture showing two types of gram-negative rods. Wound cultures from the abdomen showing Staph aureus. 03/30/2018, blood cultures are negative. Nasal swab was negative for influenza A and B. ASSESSMENT: This is a 57-year-old gentleman with history of diabetes, CVA, DVT and pulmonary embolism, who comes in with: 1. Gram-negative urinary tract infection, two different types. 2. Chronic obstructive pulmonary disease. 3. Increasing leukocytosis. 4. Cerebrovascular accident. PLAN: 1. Continue IV vancomycin for now. 2. Discontinue Zosyn. 3. We will start the patient on meropenem. 4. We will follow up cultures and adjust antibiotics accordingly. 5. Consider Urology evaluation. I would like to thank Dr. Mclaughlin for this consultation. Moon Marques M.D. DR: ELIEZER JOB#: [id number] CC:
[2018-04-01 21:12] LABS: APPEARANCE,URINE SLIGHTLY CLOUDY; BILIRUBIN, URINE NEGATIVE (NEGATIVE); GLUCOSE, URINE (UA) NEGATIVE (NEGATIVE); KETONES,URINE 3+ (NEGATIVE); LEUKOCYTE ESTERASE ,URINE 2+ (NEGATIVE); NITRITE,URINE NEGATIVE (NEGATIVE); PH,URINE 5 (4.5-8.0); PROTEIN,URINE 3+ (NEGATIVE); UROBILINOGEN,URINE NORMAL MG/DL (0.0-1.0)
[2018-04-01] MEDS: Meropenem 500 MG in NS 55 ML IVPB SCH (21:50)
[2018-04-01 21:59] LABS: COLOR,URINE YELLOW
--- NOTE | 2018-04-01 23:15 | Progress Note ---
DATE: 04/01/2018 CARDIOLOGY PROGRESS NOTE SUBJECTIVE: The patient has had recurring fevers up to 102.7 tachycardia is noted, sinus tachycardia up to 160 at times. The patient's antibiotic regimen was broadened yesterday. OBJECTIVE: VITAL SIGNS: T-max 102.7, blood pressure 122/87, heart rate 123, and respiratory rate 19. LUNGS: Bilateral breath sounds. No wheezing or rales. CARDIAC: Regular rhythm and rate. Rapid S1 and S2. ABDOMEN: Soft. Moderately obese. Suprapubic catheter site clean and dry. EXTREMITIES: No edema. IMPRESSION: 1. Complicated urinary tract infection, polymicrobial. 2. Chronic obstructive pulmonary disease. 3. Leukocytosis. 4. History of cerebrovascular accident with dementia. 5. Hypertensive heart disease. 6. Secondary sinus tachycardia. 7. Hypovolemia. 8. Dehydration. 9. History of deep venous thrombosis. PLAN: 1. Antimicrobials per Infectious Disease renewable energy consultant. 2. Urology consulted to change suprapubic catheter. 3. Continue cardiac monitoring. 4. Maintain adequate hydration. 5. No role for antiarrhythmics. 6. Monitor electrolytes and replace accordingly. 7. Continue full anticoagulation. 8. Await results of repeat venous duplex study. Quentin Mclaughlin M.D. DR: NENITA JOB#: [id number] CC:
[2018-04-02] VITALS (12 sets, daily range): BP systolic 79–129; BP diastolic 58–98
[2018-04-02] MEDS: NovoLOG Insulin Flexpen SUBQ SCH ×4 (06:00→17:41)
[2018-04-02] MEDS ORDERED: Metoprolol 5mg/5ml Inj ONE (06:08)
[2018-04-02] MEDS ORDERED: Metoprolol 5mg/5ml Inj IVP ONE (06:15)
[2018-04-02] MEDS: Meropenem 500 MG in NS 55 ML IVPB SCH ×4 (06:28→21:14)
[2018-04-02 07:32] LABS: HEMATOCRIT 38.7 % (42.0-52.0); HEMOGLOBIN 12.7 G/DL (14.2-18.0); MEAN CORPUSCULAR VOLUME 91 FL (80-99); PLATELET COUNT 120 K/UL (150-450); RED BLOOD COUNT 4.26 M/UL (4.70-6.10); RED CELL DISTRIBUTION WIDTH 14.5 % (11.6-14.8); WHITE BLOOD COUNT 13.6 K/UL (4.8-10.8)
[2018-04-02 07:57] LABS: ANION GAP 12 mmol/L (5-15); BLOOD UREA NITROGEN 17 mg/dL (7-18); CALCIUM 8.3 MG/DL (8.5-10.1); CARBON DIOXIDE 24 MMOL/L (21-32); CHLORIDE 107 MMOL/L (98-107); CREATININE 1.5 MG/DL (0.55-1.30); SODIUM 143 MMOL/L (136-145)
[2018-04-02] MEDS: Xarelto 15mg tab GT SCH (09:00)
[2018-04-02] MEDS ORDERED: Vancomycin 1gm/D5W 275ml IVPB ONE ×2 (10:00)
[2018-04-02] MEDS ORDERED: Sodium Chloride 500ML 500 ML IV ONE (11:30)
--- NOTE | 2018-04-02 12:20 | Cardiology Report ---
APPROVED REPORT EKG Measurement Heart [id number] [id number] Sinus tachycardia Otherwise normal ECG
[2018-04-02] MEDS ORDERED: Acetaminophen 650mg/20.3ml GT PRN (13:04)
[2018-04-02] MEDS ORDERED: 1/2 NS 1000ml IV ONE (13:19)
[2018-04-02] MEDS ORDERED: Sterile Water Irrig 1000ml IRRIG ONE (13:19)
[2018-04-02] MEDS ORDERED: NS 275ml ONE (13:19)
--- NOTE | 2018-04-02 19:57 | Urology Progress Note ---
Assessment/Plan Assessment/Plan 1. Urinary retention with chronic suprapubic tube. 2. Probable neurogenic bladder. 3. UTI and colonization. 4. Hematuria. 5. Proteinuria. 6. Mild acute kidney injury. 7. Nephrolithiasis history. 8. Renal cyst history. I personally removed and placed new 18f SP tube hand irrigated and position is satisfactory abx as ordered monitor renal fxn consider renal u/s f/u on blood cx Subjective Allergies: Coded Allergies: CIPROFLOXACIN (Verified Allergy, Unknown, 08/23/15) Subjective all noted Objective Last 24 Hour Vital Signs Date Time Temp Pulse Resp B/P (MAP) Pulse Ox O2 Delivery O2 Flow Rate FiO2 04/02/18 16:00 Nasal Cannula 2.0 04/02/18 16:00 97.7 81 18 123/67 (85) 99 04/02/18 16:00 92 04/02/18 12:21 Nasal Cannula 2.0 04/02/18 12:10 97.7 72 17 119/75 (90) 99 04/02/18 12:00 90 04/02/18 12:00 82/64 (70) 04/02/18 11:30 79/59 (66) 04/02/18 11:17 Nasal Cannula 2.0 28 04/02/18 11:17 100 Nasal Cannula 2.0 28 04/02/18 10:45 81/61 (68) 04/02/18 10:34 98 04/02/18 10:15 79/60 (66) 04/02/18 09:30 97.5 92 19 89/64 (72) 100 04/02/18 09:00 Room Air 04/02/18 08:30 99.6 98 20 105/63 (77) 100 04/02/18 08:00 99.6 106 20 92/64 (73) 98 04/02/18 06:59 99.3 04/02/18 06:26 125 77/49 04/02/18 04:00 97.5 122 19 128/98 (108) 95 04/02/18 04:00 134 04/02/18 00:00 115 04/02/18 00:00 98.4 108 20 129/66 (87) 98 04/01/18 21:00 Room Air 04/01/18 20:00 117 Intake and Output 04/01/18 04/02/18 19:00 07:00 Intake Total 2350 ml Output Total 800 ml 800 ml Balance -800 ml 1550 ml Intake Free Water 100 ml IV Total 1645 ml Tube Feeding 605 ml Output Urine Total 800 ml 800 ml Microbiology Date/Time Source Procedure Growth Status 03/30/18 18:20 Blood Blood Culture - Preliminary NO GROWTH AFTER 48 HOURS Resulted 03/30/18 19:50 Nasal Nares MRSA Culture - Final NO METHICILLIN RESISTANT STAPH AUREUS... Complete 03/30/18 19:01 Urine,Clean Catch Urine Culture - Final Pseudomonas Aeruginosa Proteus Mirabilis Complete 03/31/18 03:00 Abdomen Gram Stain - Final Resulted 03/31/18 03:00 Wound Culture - Preliminary Staphylococcus Aureus - Mrsa Gram Negative Bacillus 1 Diphtheroids Resulted Current Medications Medications (Trade) Dose Ordered Sig/Fab Route PRN Reason Start Time Stop Time Status Last Admin Dose Admin Acetaminophen (Tylenol) 650 mg Q4H PRN GT Mild Pain/Temp > 100.5 04/02/18 13:04 04/30/18 13:03 Dextrose (Dextrose 50%) 25 ml Q30M PRN IV Hypoglycemia 04/02/18 13:30 04/30/18 02:29 Dextrose (Dextrose 50%) 50 ml Q30M PRN IV Hypoglycemia 04/02/18 13:30 04/30/18 02:29 Famotidine (Pepcid) 20 mg BID GT 04/02/18 18:00 04/30/18 08:59 04/02/18 17:41 Insulin Aspart (NovoLOG) EVERY 6 HOURS SUBQ 04/02/18 18:00 04/30/18 05:59 Meropenem 500 mg/ Sodium Chloride 55 ml @ 110 mls/hr EVERY 8 HOURS IVPB 04/02/18 14:00 04/06/18 21:59 04/02/18 14:08 Rivaroxaban (Xarelto) 15 mg DAILY GT 04/03/18 09:00 04/30/18 08:59 Sodium Chloride 1,000 ml @ 125 mls/hr Q8H IV 04/02/18 13:00 04/30/18 00:00 04/02/18 14:07 Vancomycin HCl (Vanco rx to dose) 1 ea DAILY PRN MISC Per rx protocol 04/03/18 09:00 05/01/18 13:29 Laboratory Tests 04/01/18 20:05: Urine Color Yellow, Urine Appearance Slightly cloudy, Urine pH 5, Urine Specific [place] 1.010, Urine Protein 3+H, Urine Glucose (UA) Negative, Urine Ketones 3+H, Urine Blood 3+H, Urine Nitrite Negative, Urine Bilirubin Negative, Urine Urobilinogen Normal, Urine Leukocyte Esterase 2+H, Urine RBC 20-30H, Urine WBC 15-20H, Urine Squamous Epithelial Cells None, Urine Bacteria ModerateH 04/02/18 05:32: White Blood Count 13.6H, Red Blood Count 4.26L, Hemoglobin 12.7L, Hematocrit 38.7L, Mean Corpuscular Volume 91, Mean Corpuscular Hemoglobin 29.7, Mean Corpuscular Hemoglobin Concent 32.7, Red Cell Distribution Width 14.5, Platelet Count 120L, Mean Platelet Volume 9.9, Neutrophils (%) (Auto) , Lymphocytes (%) ( Auto) , Monocytes (%) (Auto) , Eosinophils (%) (Auto) , Basophils (%) (Auto) , Differential Total Cells Counted 100, Neutrophils % (Manual) 73, Lymphocytes % ( Manual) 4L, Monocytes % (Manual) 9, Eosinophils % (Manual) 0, Basophils % ( Manual) 0, Band Neutrophils 14H, Platelet Estimate DecreasedL, Platelet Morphology Normal, Anisocytosis 1+, Sodium Level 143, Potassium Level 4.0, Chloride Level 107, Carbon Dioxide Level 24, Anion Gap 12, Blood Urea Nitrogen 17, Creatinine 1.5H, Estimat Glomerular Filtration Rate 47.9, Glucose Level 75, Calcium Level 8.3L, Magnesium Level 2.0, Random Vancomycin Level 9.4 04/02/18 11:35: Arterial Blood pH 7.372, Arterial Blood Partial Pressure CO2 36.5, Arterial Blood Partial Pressure O2 126.5H, Arterial Blood HCO3 20.2L, Arterial Blood Oxygen Saturation 98.0, Arterial Blood Base Excess -4.0L, Aiden Test Positive Height (Feet): 6 Weight (Pounds): 223 Objective exam stable Kulwinder Helms MD Apr 02, 2018 19:57
--- NOTE | 2018-04-02 22:15 | Consultation ---
DATE OF CONSULTATION: 04/01/2018 CONSULTING PHYSICIAN: Kulwinder Helms M.D. REFERRING PHYSICIAN: Quentin Mclaughlin M.D. REASON FOR CONSULTATION: Suprapubic tube. HISTORY OF PRESENT ILLNESS: This is an unfortunate 57-year-old male. I believe I have seen this patient before. He has a history of neurogenic bladder and chronic suprapubic tube. He has a history of large urethral calculus that he had passed with a big wound in his scrotum. He was admitted to the hospital because of fevers. Urology evaluation requested. PAST MEDICAL HISTORY: Significant for above, diabetes, COPD, cerebrovascular accident, vegetative state, and gastrostomy tube. ALLERGIES: Cipro. MEDICATIONS: List noted. FAMILY HISTORY: Unable to obtain. PHYSICAL EXAMINATION: GENERAL: A well-developed and well-nourished male, in no acute distress. VITAL SIGNS: He is currently afebrile. Vital signs are stable. GENITOURINARY: 18-[place] suprapubic in place. Urine is yellowish with some debris. He has a large wound on his scrotum. LABORATORY DATA: Reviewed. His creatinine is 1.6. He did come in with a creatinine of 1.3. White count is 19.0 and hemoglobin 12.2. UA was positive for red cells, white cells, and protein. His recent urine culture was noted. IMAGING STUDIES: The patient's last CT scan of the abdomen and pelvis was back in March 2017, and at that time, there was mention of bilateral nonobstructive renal calculi and renal cysts. IMPRESSION: 1. Urinary retention with chronic suprapubic tube. 2. Probable neurogenic bladder. 3. UTI and colonization. 4. Hematuria. 5. Proteinuria. 6. Mild acute kidney injury. 7. Nephrolithiasis history. 8. Renal cyst history. PLAN AND DISCUSSION: The patient is to continue with antibiotics as ordered. Renal function will be monitored and we will plan on changing the suprapubic tube during this admission. We will also consider renal imaging study. Thank you for this consultation. Kulwinder Helms M.D. DR: LIZ JOB#: [id number] CC:
--- NOTE | 2018-04-02 22:45 | Progress Note ---
DATE: 04/02/2018 CARDIOLOGY PROGRESS NOTE SUBJECTIVE: Suprapubic catheter was replaced today by urologist. OBJECTIVE: VITAL SIGNS: Blood pressure 123/67, pulse 81, and respirations 18. LUNGS: Coarse breath sounds. CARDIAC: Regular rhythm and rate. Normal S1, S2. ABDOMEN: Soft, no focal tenderness. Catheter site is dry. No edema. The patient has had congestion, fevers, tachycardia, and episodes of sustained ventricular arrhythmias. He was given IV beta-stephan with good clinical response. Wound culture is positive for MRSA and gram-negative bacillus. Urine culture is positive for Pseudomonas and Proteus. LABORATORY DATA: White count 13 and hemoglobin 12. Potassium 4, BUN 17, and creatinine 1.5. IMPRESSION: 1. Sepsis. 2. Paroxysmal ventricular tachycardia. 3. Secondary sinus tachycardia. 4. Polymicrobial urinary tract infection. 5. Suprapubic catheter wound site infection. 6. Hypovolemia. 7. Dehydration. 8. Acute on chronic kidney disease. 9. History of DVT and pulmonary embolus, on full anticoagulation. PLAN: 1. Antimicrobials per Infectious Disease php consultant. 2. Adjust IV fluids. 3. Nutritional support. 4. Continue beta-stephan. 5. Await final cultures. 6. Antibiotics per Infectious Disease php consultant. 7. Continue full anticoagulation. 8. Await venous duplex scan. Quentin Mclaughlin M.D. DR: JENNIFER JOB#: [id number] CC:
[2018-04-03] VITALS: BP 125/61
[2018-04-03 04:00] VITALS: BP 108/74
[2018-04-03] MEDS: Meropenem 500 MG in NS 55 ML IVPB SCH ×2 (05:33)
[2018-04-03] MEDS: NovoLOG Insulin Flexpen SUBQ SCH ×4 (05:34→17:16)
[2018-04-03 08:00] VITALS: BP 114/76
[2018-04-03] MEDS: Xarelto 15mg tab GT SCH (08:13)
--- NOTE | 2018-04-03 09:06 | Urology Progress Note ---
Assessment/Plan Assessment/Plan 1. Urinary retention with chronic suprapubic tube. 2. Probable neurogenic bladder. 3. UTI and colonization. 4. Hematuria. 5. Proteinuria. 6. Mild acute kidney injury. 7. Nephrolithiasis history. 8. Renal cyst history. keep sp tube, last exchanged 04/02 hand irrigate PRN cont with abx as ordered monitor renal fxn consider renal u/s f/u on blood cx Subjective Allergies: Coded Allergies: CIPROFLOXACIN (Verified Allergy, Unknown, 08/23/15) Subjective all noted, new sp tube draining ok Objective Last 24 Hour Vital Signs Date Time Temp Pulse Resp B/P (MAP) Pulse Ox O2 Delivery O2 Flow Rate FiO2 04/03/18 08:18 102 04/03/18 08:00 99.6 105 18 114/76 (89) 98 04/03/18 04:00 98.1 104 22 108/74 (85) 98 04/03/18 04:00 Nasal Cannula 2.0 04/03/18 03:38 107 04/03/18 00:00 97.6 98 20 125/61 (82) 100 04/03/18 00:00 Nasal Cannula 2.0 04/02/18 23:32 118 04/02/18 20:00 97.2 103 24 118/58 (78) 96 04/02/18 20:00 Nasal Cannula 2.0 04/02/18 19:07 105 04/02/18 16:00 Nasal Cannula 2.0 04/02/18 16:00 97.7 81 18 123/67 (85) 99 04/02/18 16:00 92 04/02/18 12:21 Nasal Cannula 2.0 04/02/18 12:10 97.7 72 17 119/75 (90) 99 04/02/18 12:00 90 04/02/18 12:00 82/64 (70) 04/02/18 11:30 79/59 (66) 04/02/18 11:17 Nasal Cannula 2.0 28 04/02/18 11:17 100 Nasal Cannula 2.0 28 04/02/18 10:45 81/61 (68) 04/02/18 10:34 98 04/02/18 10:15 79/60 (66) 04/02/18 09:30 97.5 92 19 89/64 (72) 100 Intake and Output 04/02/18 04/03/18 19:00 07:00 Intake Total 845 ml 1327 ml Output Total 1500 ml 550 ml Balance -655 ml 777 ml Intake Free Water 100 ml 80 ml IV Total 305 ml 642 ml Tube Feeding 440 ml 605 ml Output Urine Total 1500 ml 550 ml # Bowel Movements 1 2 Microbiology Date/Time Source Procedure Growth Status 03/30/18 18:20 Blood Blood Culture - Preliminary NO GROWTH AFTER 72 HOURS Resulted 03/30/18 19:50 Nasal Nares MRSA Culture - Final NO METHICILLIN RESISTANT STAPH AUREUS... Complete 04/01/18 20:05 Urine,Clean Catch Urine Culture - Preliminary Gram Negative Bacillus 1 Resulted 03/31/18 03:00 Abdomen Gram Stain - Final Resulted 03/31/18 03:00 Wound Culture - Preliminary Staphylococcus Aureus - Mrsa Gram Negative Bacillus 1 Diphtheroids Resulted Current Medications Medications (Trade) Dose Ordered Sig/Fab Route PRN Reason Start Time Stop Time Status Last Admin Dose Admin Acetaminophen (Tylenol) 650 mg Q4H PRN GT Mild Pain/Temp > 100.5 04/02/18 13:04 04/30/18 13:03 Dextrose (Dextrose 50%) 25 ml Q30M PRN IV Hypoglycemia 04/02/18 13:30 04/30/18 02:29 Dextrose (Dextrose 50%) 50 ml Q30M PRN IV Hypoglycemia 04/02/18 13:30 04/30/18 02:29 Famotidine (Pepcid) 20 mg BID GT 04/02/18 18:00 04/30/18 08:59 04/03/18 08:13 Insulin Aspart (NovoLOG) EVERY 6 HOURS SUBQ 04/02/18 18:00 04/30/18 05:59 Meropenem 500 mg/ Sodium Chloride 55 ml @ 110 mls/hr EVERY 8 HOURS IVPB 04/02/18 14:00 04/06/18 21:59 04/03/18 05:33 Rivaroxaban (Xarelto) 15 mg DAILY GT 04/03/18 09:00 04/30/18 08:59 04/03/18 08:13 Sodium Chloride 1,000 ml @ 60 mls/hr [id number] IV 04/02/18 21:58 05/02/18 21:57 04/02/18 22:08 Vancomycin HCl (Vanco rx to dose) 1 ea DAILY PRN MISC Per rx protocol 04/03/18 09:00 05/01/18 13:29 Laboratory Tests 04/02/18 11:35: Arterial Blood pH 7.372, Arterial Blood Partial Pressure CO2 36.5, Arterial Blood Partial Pressure O2 126.5H, Arterial Blood HCO3 20.2L, Arterial Blood Oxygen Saturation 98.0, Arterial Blood Base Excess -4.0L, Aiden Test Positive Height (Feet): 6 Weight (Pounds): 237 Objective exam stable Kulwinder Helms MD Apr 03, 2018 09:06
--- NOTE | 2018-04-03 10:57 | Infectious Diseases Prog Note ---
"Assessment/Plan Assessment/Plan antibiotics : vancomycin iv, meropenem A 1. pseudomonas | proteus urinary tract infection 2. Chronic obstructive pulmonary disease. 3. leukocytosis improving 4. Cerebrovascular accident. P 1. start and continue cefepime 2 more days 2. d/c iv vancomycin, meropenem 3. will follow up cultures Subjective ROS Limited/Unobtainable: Yes Allergies: Coded Allergies: CIPROFLOXACIN (Verified Allergy, Unknown, 08/23/15) Objective Vital Signs Last 24 Hour Vital Signs Date Time Temp Pulse Resp B/P (MAP) Pulse Ox O2 Delivery O2 Flow Rate FiO2 04/03/18 08:18 102 04/03/18 08:00 99.6 105 18 114/76 (89) 98 04/03/18 08:00 Room Air 04/03/18 04:00 98.1 104 22 108/74 (85) 98 04/03/18 04:00 Nasal Cannula 2.0 04/03/18 03:38 107 04/03/18 00:00 97.6 98 20 125/61 (82) 100 04/03/18 00:00 Nasal Cannula 2.0 04/02/18 23:32 118 04/02/18 20:00 97.2 103 24 118/58 (78) 96 04/02/18 20:00 Nasal Cannula 2.0 04/02/18 19:07 105 04/02/18 16:00 Nasal Cannula 2.0 04/02/18 16:00 97.7 81 18 123/67 (85) 99 04/02/18 16:00 92 04/02/18 12:21 Nasal Cannula 2.0 04/02/18 12:10 97.7 72 17 119/75 (90) 99 04/02/18 12:00 90 04/02/18 12:00 82/64 (70) 04/02/18 11:30 79/59 (66) 04/02/18 11:17 Nasal Cannula 2.0 28 04/02/18 11:17 100 Nasal Cannula 2.0 28 Height (Feet): 6 Weight (Pounds): 237 Respiratory/Chest: lungs clear Cardiovascular: normal rate, regular rhythm, no gallop/murmur Abdomen: soft, non tender, other - GT, SPC Extremities: other - + edema Microbiology Date/Time Source Procedure Growth Status 04/01/18 20:05 Urine,Clean Catch Urine Culture - Preliminary Gram Negative Bacillus 1 Resulted Laboratory Tests Test 04/02/18 11:35 Arterial Blood pH 7.372 (7.350-7.450) Arterial Blood Partial Pressure CO2 36.5 mmHg (35.0-45.0) Arterial Blood Partial Pressure O2 126.5 mmHg (75.0-100.0) H Arterial Blood HCO3 20.2 mmol/L (22.0-26.0) L Arterial Blood Oxygen Saturation 98.0 % (95-100) Arterial Blood Base Excess -4.0 (-2-2) L Aiden Test Positive Current Medications Medications (Trade) Dose Ordered Sig/Fab Route PRN Reason Start Time Stop Time Status Last Admin Dose Admin Acetaminophen (Tylenol) 650 mg Q4H PRN GT Mild Pain/Temp > 100.5 04/02/18 13:04 04/30/18 13:03 Dextrose (Dextrose 50%) 25 ml Q30M PRN IV Hypoglycemia 04/02/18 13:30 04/30/18 02:29 Dextrose (Dextrose 50%) 50 ml Q30M PRN IV Hypoglycemia 04/02/18 13:30 04/30/18 02:29 Famotidine (Pepcid) 20 mg BID GT 04/02/18 18:00 04/30/18 08:59 04/03/18 08:13 Insulin Aspart (NovoLOG) EVERY 6 HOURS SUBQ 04/02/18 18:00 04/30/18 05:59 Meropenem 500 mg/ Sodium Chloride 55 ml @ 110 mls/hr EVERY 8 HOURS IVPB 04/02/18 14:00 04/06/18 21:59 04/03/18 05:33 Rivaroxaban (Xarelto) 15 mg DAILY GT 04/03/18 09:00 04/30/18 08:59 04/03/18 08:13 Sodium Chloride 1,000 ml @ 60 mls/hr [id number] IV 04/02/18 21:58 05/02/18 21:57 04/02/18 22:08 Vancomycin HCl (Vanco rx to dose) 1 ea DAILY PRN MISC Per rx protocol 04/03/18 09:00 05/01/18 13:29 Moon Marques MD Apr 03, 2018 10:57"
[2018-04-03] MEDS: Cefepime HCl 1 GM in D5W 55 ML IVPB SCH ×2 (11:42→20:00)
[2018-04-03 12:00] VITALS: BP 130/87
[2018-04-03] MEDS ORDERED: 1/2 NS 1000ml IV ONE (14:38)
[2018-04-03 16:00] VITALS: BP 126/72
[2018-04-03 20:00] VITALS: BP 150/78
[2018-04-04] VITALS: BP 134/70
--- NOTE | 2018-04-04 01:45 | Progress Note ---
DATE: 04/03/2018 INTERNAL MEDICINE AND CARDIOLOGY PROGRESS NOTE SUBJECTIVE: The patient remains with episodes of rapid heart rate. On antibiotics. His cultures noted polymicrobial urinary infection seen. Venous Duplex scan revealed no residual DVT. OBJECTIVE: LUNGS: Coarse breath sounds. Scattered rhonchi. HEART: Regular rhythm and rate. Normal S1, S2. ABDOMEN: Soft. EXTREMITIES: Trace edema. IMPRESSION: 1. Secondary sinus tachycardia. 2. Paroxysmal ventricular arrhythmias. 3. History of DVT - now resolved. 4. Suprapubic catheter. 5. Complicated polymicrobial UTI with sepsis. PLAN: 1. Antimicrobials. 2. Hydration. 3. Consider stopping full anticoagulation. 4. Beta-stephan therapy added. Quentin Mclaughlin M.D. DR: EFRAIN JOB#: [id number] CC: SABINA
[2018-04-04 04:00] VITALS: BP 128/64
[2018-04-04 05:16] LABS: BASOPHILS % (AUTO) 2.3 % (0.0-2.0); EOSINOPHILS % (AUTO) 3.5 % (0.0-3.0); HEMATOCRIT 33.2 % (42.0-52.0); HEMOGLOBIN 11.2 G/DL (14.2-18.0); LYMPHOCYTES % (AUTO) 29.5 % (20.0-45.0); MEAN CORPUSCULAR VOLUME 89 FL (80-99); MONOCYTES % (AUTO) 13.3 % (1.0-10.0); NEUTROPHILS % (AUTO) 51.4 % (45.0-75.0); PLATELET COUNT 140 K/UL (150-450); RED BLOOD COUNT 3.74 M/UL (4.70-6.10); WHITE BLOOD COUNT 8.1 K/UL (4.8-10.8)
[2018-04-04 05:48] LABS: ALANINE AMINOTRANSFERASE 17 U/L (12-78); ALBUMIN 1.9 G/DL (3.4-5.0); ALBUMIN/GLOBULIN RATIO 0.4 (1.0-2.7); ALKALINE PHOSPHATASE 65 U/L (46-116); ANION GAP 8 mmol/L (5-15); ASPARTATE AMINO TRANSFERASE 20 U/L (15-37); BILIRUBIN,TOTAL 0.2 MG/DL (0.2-1.0); BLOOD UREA NITROGEN 18 mg/dL (7-18); CALCIUM 7.6 MG/DL (8.5-10.1); CARBON DIOXIDE 24 MMOL/L (21-32); CHLORIDE 111 MMOL/L (98-107); POTASSIUM 3.5 MMOL/L (3.5-5.1); SODIUM 143 MMOL/L (136-145)
[2018-04-04] MEDS: NovoLOG Insulin Flexpen SUBQ SCH ×4 (06:00→17:09)
[2018-04-04 08:00] VITALS: BP 124/64
--- NOTE | 2018-04-04 08:14 | General Progress Note ---
Assessment/Plan Problem List: (1) Sepsis ICD Codes: A41.9 - Sepsis, unspecified organism SNOMED: 46743964 (2) History of CVA (cerebrovascular accident) ICD Codes: Z86.73 - Personal history of transient ischemic attack (TIA), and cerebral infarction without residual deficits SNOMED: 218915631 (3) Suprapubic catheter dysfunction ICD Codes: T83.010A - Breakdown (mechanical) of cystostomy catheter, initial encounter SNOMED: 310825710 (4) UTI (urinary tract infection) ICD Codes: N39.0 - Urinary tract infection, site not specified SNOMED: 28819350 Qualifiers: Qualified Codes: N39.0 - Urinary tract infection, site not specified (5) Hypernatremia ICD Codes: E87.0 - Hyperosmolality and hypernatremia SNOMED: 31435412 (6) Encephalopathy chronic ICD Codes: G93.49 - Other encephalopathy SNOMED: 69346560 Status: stable Assessment/Plan cardiac rx gt feeds replace k abx ?dc planning Subjective ROS Limited/Unobtainable: Yes Constitutional: Reports: malaise, weakness HEENT: Reports: no symptoms Cardiovascular: Reports: no symptoms Respiratory: Reports: no symptoms Genitourinary: Reports: no symptoms 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: Reports: pre-existing deficit, seizure Endocrine: Reports: no symptoms Hematologic/Lymphatic: Reports: anemia Allergies: Coded Allergies: CIPROFLOXACIN (Verified Allergy, Unknown, 08/23/15) All Systems: reviewed and negative except above Subjective no events. no arrhythmias. tolerating feeds. low k Objective Last 24 Hour Vital Signs Date Time Temp Pulse Resp B/P (MAP) Pulse Ox O2 Delivery O2 Flow Rate FiO2 04/04/18 04:00 97.9 89 24 128/64 (85) 99 04/04/18 04:00 Room Air 04/04/18 04:00 89 04/04/18 00:00 98.1 98 21 134/70 (91) 99 04/04/18 00:00 Room Air 04/03/18 23:47 98 04/03/18 20:50 99 Room Air 21 04/03/18 20:50 Room Air 04/03/18 20:00 Room Air 04/03/18 20:00 98.2 95 20 150/78 (102) 98 04/03/18 19:03 97 04/03/18 16:00 Room Air 04/03/18 16:00 101 04/03/18 16:00 98.2 97 18 126/72 (90) 98 04/03/18 13:03 110 04/03/18 12:00 Room Air 04/03/18 12:00 99.3 102 18 130/87 (101) 98 04/03/18 08:18 102 Intake and Output 04/03/18 04/04/18 19:00 07:00 Intake Total 1445 ml 1000 ml Output Total 1200 ml 950 ml Balance 245 ml 50 ml Intake Free Water 120 ml 100 ml IV Total 775 ml 295 ml Tube Feeding 550 ml 605 ml Output Urine Total 1200 ml 950 ml # Bowel Movements 2 Laboratory Tests 04/04/18 03:25: White Blood Count 8.1, Red Blood Count 3.74L, Hemoglobin 11.2L, Hematocrit 33.2L , Mean Corpuscular Volume 89, Mean Corpuscular Hemoglobin 30.0, Mean Corpuscular Hemoglobin Concent 33.8, Red Cell Distribution Width 14.0, Platelet Count 140L, Mean Platelet Volume 8.8, Neutrophils (%) (Auto) 51.4, Lymphocytes ( %) (Auto) 29.5, Monocytes (%) (Auto) 13.3H, Eosinophils (%) (Auto) 3.5H, Basophils (%) (Auto) 2.3H, Sodium Level 143, Potassium Level 3.5, Chloride Level 111H, Carbon Dioxide Level 24, Anion Gap 8, Blood Urea Nitrogen 18, Creatinine 1.0, Estimat Glomerular Filtration Rate > 60, Glucose Level 116H, Calcium Level 7.6L, Magnesium Level 2.3, Total Bilirubin 0.2, Aspartate Amino Transf (AST/SGOT) 20, Alanine Aminotransferase (ALT/SGPT) 17, Alkaline Phosphatase 65, Total Protein 7.1, Albumin 1.9L, Globulin 5.2, Albumin/Globulin Ratio 0.4L Height (Feet): 6 Weight (Pounds): 237 General Appearance: WD/WN, confused Cardiovascular: normal rate Respiratory/Chest: lungs clear Abdomen: normal bowel sounds, non tender, soft, no organomegaly Edema: no edema noted Arm (L), no edema noted Arm (R), no edema noted Leg (L), no edema noted Leg (R), no edema noted Pedal (L), no edema noted Pedal (R), no edema noted Generalized Gabo Simth MD Apr 04, 2018 08:14
--- NOTE | 2018-04-04 08:50 | Urology Progress Note ---
Assessment/Plan Assessment/Plan 1. Urinary retention with chronic suprapubic tube. 2. Probable neurogenic bladder. 3. UTI and colonization. 4. Hematuria. 5. Proteinuria. 6. Mild acute kidney injury. 7. Nephrolithiasis history. 8. Renal cyst history. keep sp tube, last exchanged 04/02 hand irrigate PRN cont with abx as ordered monitor renal fxn consider renal u/s f/u on blood cx Subjective Allergies: Coded Allergies: CIPROFLOXACIN (Verified Allergy, Unknown, 08/23/15) Subjective all noted, new sp tube draining ok Objective Last 24 Hour Vital Signs Date Time Temp Pulse Resp B/P (MAP) Pulse Ox O2 Delivery O2 Flow Rate FiO2 04/04/18 04:00 97.9 89 24 128/64 (85) 99 04/04/18 04:00 Room Air 04/04/18 04:00 89 04/04/18 00:00 98.1 98 21 134/70 (91) 99 04/04/18 00:00 Room Air 04/03/18 23:47 98 04/03/18 20:50 99 Room Air 21 04/03/18 20:50 Room Air 04/03/18 20:00 Room Air 04/03/18 20:00 98.2 95 20 150/78 (102) 98 04/03/18 19:03 97 04/03/18 16:00 Room Air 04/03/18 16:00 101 04/03/18 16:00 98.2 97 18 126/72 (90) 98 04/03/18 13:03 110 04/03/18 12:00 Room Air 04/03/18 12:00 99.3 102 18 130/87 (101) 98 Intake and Output 04/03/18 04/04/18 19:00 07:00 Intake Total 1445 ml 1000 ml Output Total 1200 ml 950 ml Balance 245 ml 50 ml Intake Free Water 120 ml 100 ml IV Total 775 ml 295 ml Tube Feeding 550 ml 605 ml Output Urine Total 1200 ml 950 ml # Bowel Movements 2 Microbiology Date/Time Source Procedure Growth Status 03/30/18 18:20 Blood Blood Culture - Preliminary NO GROWTH AFTER 4 DAYS Resulted 03/30/18 19:50 Nasal Nares MRSA Culture - Final NO METHICILLIN RESISTANT STAPH AUREUS... Complete 04/01/18 20:05 Urine,Clean Catch Urine Culture - Final Pseudomonas Aeruginosa Complete 03/31/18 03:00 Abdomen Gram Stain - Final Complete 03/31/18 03:00 Wound Culture - Final Staphylococcus Aureus - Mrsa Pseudomonas Aeruginosa Diphtheroids Complete Current Medications Medications (Trade) Dose Ordered Sig/Fab Route PRN Reason Start Time Stop Time Status Last Admin Dose Admin Acetaminophen (Tylenol) 650 mg Q4H PRN GT Mild Pain/Temp > 100.5 04/02/18 13:04 04/30/18 13:03 Carvedilol (Coreg) 6.25 mg EVERY 12 HOURS ORAL 04/04/18 09:00 05/04/18 08:59 Cefepime HCl 1 gm/ Dextrose 55 ml @ 110 mls/hr EVERY 12 HOURS IVPB 04/03/18 12:00 04/10/18 11:59 04/03/18 20:00 Dextrose (Dextrose 50%) 25 ml Q30M PRN IV Hypoglycemia 04/02/18 13:30 04/30/18 02:29 Dextrose (Dextrose 50%) 50 ml Q30M PRN IV Hypoglycemia 04/02/18 13:30 04/30/18 02:29 Famotidine (Pepcid) 20 mg BID GT 04/02/18 18:00 04/30/18 08:59 04/03/18 17:10 Insulin Aspart (NovoLOG) EVERY 6 HOURS SUBQ 04/02/18 18:00 04/30/18 05:59 04/03/18 17:16 Potassium Chloride (K-Dur) 40 meq ONCE ORAL 04/04/18 08:13 04/04/18 09:13 Rivaroxaban (Xarelto) 15 mg DAILY GT 04/03/18 09:00 04/30/18 08:59 04/03/18 08:13 Laboratory Tests 04/04/18 03:25: White Blood Count 8.1, Red Blood Count 3.74L, Hemoglobin 11.2L, Hematocrit 33.2L , Mean Corpuscular Volume 89, Mean Corpuscular Hemoglobin 30.0, Mean Corpuscular Hemoglobin Concent 33.8, Red Cell Distribution Width 14.0, Platelet Count 140L, Mean Platelet Volume 8.8, Neutrophils (%) (Auto) 51.4, Lymphocytes ( %) (Auto) 29.5, Monocytes (%) (Auto) 13.3H, Eosinophils (%) (Auto) 3.5H, Basophils (%) (Auto) 2.3H, Sodium Level 143, Potassium Level 3.5, Chloride Level 111H, Carbon Dioxide Level 24, Anion Gap 8, Blood Urea Nitrogen 18, Creatinine 1.0, Estimat Glomerular Filtration Rate > 60, Glucose Level 116H, Calcium Level 7.6L, Magnesium Level 2.3, Total Bilirubin 0.2, Aspartate Amino Transf (AST/SGOT) 20, Alanine Aminotransferase (ALT/SGPT) 17, Alkaline Phosphatase 65, Total Protein 7.1, Albumin 1.9L, Globulin 5.2, Albumin/Globulin Ratio 0.4L Height (Feet): 6 Weight (Pounds): 237 Objective exam stable Kulwinder Helms MD Apr 04, 2018 08:50
[2018-04-04] MEDS ORDERED: Carvedilol 6.25mg Tab ORAL SCH (09:00)
[2018-04-04] MEDS: Xarelto 15mg tab GT SCH (09:14)
[2018-04-04] MEDS: Cefepime HCl 1 GM in D5W 55 ML IVPB SCH ×2 (09:15→20:02)
[2018-04-04 12:00] VITALS: BP 112/81
--- NOTE | 2018-04-04 12:02 | Infectious Diseases Prog Note ---
Assessment/Plan Assessment/Plan A 1. pseudomonas & proteus urinary tract infection 2. Chronic obstructive pulmonary disease. 3. leukocytosis resolved 4. history of Cerebrovascular accident. 5. Gastrostomy status 6. s/p suprapubic catheter P 1. start and continue cefepime 1 more day Subjective ROS Limited/Unobtainable: Yes Neurologic: Reports: confusion, other - on restraint Allergies: Coded Allergies: CIPROFLOXACIN (Verified Allergy, Unknown, 08/23/15) Objective Vital Signs Last 24 Hour Vital Signs Date Time Temp Pulse Resp B/P (MAP) Pulse Ox O2 Delivery O2 Flow Rate FiO2 04/04/18 09:14 87 124/64 04/04/18 08:00 98.1 87 18 124/64 (84) 99 04/04/18 08:00 85 04/04/18 08:00 Room Air 04/04/18 04:00 97.9 89 24 128/64 (85) 99 04/04/18 04:00 Room Air 04/04/18 04:00 89 04/04/18 00:00 98.1 98 21 134/70 (91) 99 04/04/18 00:00 Room Air 04/03/18 23:47 98 04/03/18 20:50 99 Room Air 21 04/03/18 20:50 Room Air 04/03/18 20:00 Room Air 04/03/18 20:00 98.2 95 20 150/78 (102) 98 04/03/18 19:03 97 04/03/18 16:00 Room Air 04/03/18 16:00 101 04/03/18 16:00 98.2 97 18 126/72 (90) 98 04/03/18 13:03 110 04/03/18 12:00 Room Air 04/03/18 12:00 99.3 102 18 130/87 (101) 98 Height (Feet): 6 Weight (Pounds): 237 General Appearance: other - obese HEENT: mucous membranes moist Respiratory/Chest: lungs clear Cardiovascular: normal rate Abdomen: soft, non tender, other - s/p GT, scar of midline surgery Extremities: other - edema of hands 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: other - opens eyes Microbiology Date/Time Source Procedure Growth Status 04/01/18 20:05 Urine,Clean Catch Urine Culture - Final Pseudomonas Aeruginosa Complete Laboratory Tests Test 12/27/18 03:25 White Blood Count 8.1 K/UL (4.8-10.8) Red Blood Count 3.74 M/UL (4.70-6.10) L Hemoglobin 11.2 G/DL (14.2-18.0) L Hematocrit 33.2 % (42.0-52.0) L Mean Corpuscular Volume 89 FL (80-99) Mean Corpuscular Hemoglobin 30.0 PG (27.0-31.0) Mean Corpuscular Hemoglobin Concent 33.8 G/DL (32.0-36.0) Red Cell Distribution Width 14.0 % (11.6-14.8) Platelet Count 140 K/UL (150-450) L Mean Platelet Volume 8.8 FL (6.5-10.1) Neutrophils (%) (Auto) 51.4 % (45.0-75.0) Lymphocytes (%) (Auto) 29.5 % (20.0-45.0) Monocytes (%) (Auto) 13.3 % (1.0-10.0) H Eosinophils (%) (Auto) 3.5 % (0.0-3.0) H Basophils (%) (Auto) 2.3 % (0.0-2.0) H Sodium Level 143 MMOL/L (136-145) Potassium Level 3.5 MMOL/L (3.5-5.1) Chloride Level 111 MMOL/L (98-107) H Carbon Dioxide Level 24 MMOL/L (21-32) Anion Gap 8 mmol/L (5-15) Blood Urea Nitrogen 18 mg/dL (7-18) Creatinine 1.0 MG/DL (0.55-1.30) Estimat Glomerular Filtration Rate > 60 mL/min (>60) Glucose Level 116 MG/DL (74-106) H Calcium Level 7.6 MG/DL (8.5-10.1) L Magnesium Level 2.3 MG/DL (1.8-2.4) Total Bilirubin 0.2 MG/DL (0.2-1.0) Aspartate Amino Transf (AST/SGOT) 20 U/L (15-37) Alanine Aminotransferase (ALT/SGPT) 17 U/L (12-78) Alkaline Phosphatase 65 U/L (46-116) Total Protein 7.1 G/DL (6.4-8.2) Albumin 1.9 G/DL (3.4-5.0) L Globulin 5.2 g/dL Albumin/Globulin Ratio 0.4 (1.0-2.7) L Current Medications Medications (Trade) Dose Ordered Sig/Fab Route PRN Reason Start Time Stop Time Status Last Admin Dose Admin Acetaminophen (Tylenol) 650 mg Q4H PRN GT Mild Pain/Temp > 100.5 04/02/18 13:04 04/30/18 13:03 Carvedilol (Coreg) 6.25 mg EVERY 12 HOURS ORAL 04/04/18 09:00 05/04/18 08:59 04/04/18 09:14 Cefepime HCl 1 gm/ Dextrose 55 ml @ 110 mls/hr EVERY 12 HOURS IVPB 04/03/18 12:00 04/10/18 11:59 04/04/18 09:15 Dextrose (Dextrose 50%) 25 ml Q30M PRN IV Hypoglycemia 04/02/18 13:30 04/30/18 02:29 Dextrose (Dextrose 50%) 50 ml Q30M PRN IV Hypoglycemia 04/02/18 13:30 04/30/18 02:29 Famotidine (Pepcid) 20 mg BID GT 04/02/18 18:00 04/30/18 08:59 04/04/18 09:14 Insulin Aspart (NovoLOG) EVERY 6 HOURS SUBQ 04/02/18 18:00 04/30/18 05:59 04/04/18 11:40 Rivaroxaban (Xarelto) 15 mg DAILY GT 04/03/18 09:00 04/30/18 08:59 04/04/18 09:14 Alex Balbuena MD Apr 04, 2018 12:02
--- NOTE | 2018-04-04 13:27 | Cardiology Report ---
APPROVED REPORT EXAM: Two-dimensional and M-mode echocardiogram with Doppler and color Doppler. INDICATION Tachycardia M-Mode DIMENSIONS IVSd1.2 (0.7-1.1cm)Left Atrium (MM)3.8 (1.6-4.0cm) LVDd3.9 (3.5-5.6cm)Aortic Root3.6 (2.0-3.7cm) PWd1.5 (0.7-1.1cm)Aortic Cusp Exc.2.1 (1.5-2.0cm) LVDs2.7 (2.5-4.0cm) PWs1.8 cm Normal left ventricular chamber size, systolic function and wall motion to extent visualized. Left ventricular ejection fraction estimated to be 55-60 %. Mild left ventricular hypertrophy by 2-D. Anterior Echo-free space, may be due to pericardial fat or effusion. Left atrial size at upper limits of normal. Right cardiac chamber sizes are within normal limits. Focal aortic valve sclerosis with adequate cusp excursion. Thickened mitral valve leaflets with normal excursion. Mitral annulus and aortic root calcification. Pulmonic valve not well visualized. Normal tricuspid valve structure. No subcostal views obtained. A color flow and spectral Doppler study was performed and revealed: Trace mitral regurgitation. Mitral diastolic velocities suggest reduced left ventricular relaxation c/w mild LV diastolic dysfunction (Grade I). Mild tricuspid regurgitation. Tricuspid systolic velocities suggests peak right ventricular systolic pressure of 44 mmHg, consistent with mild to moderate pulmonary hypertension.
[2018-04-04 16:00] VITALS: BP 134/91
[2018-04-04] MEDS ORDERED: NS 275ml ONE (16:10)
[2018-04-04] MEDS ORDERED: Tubing IV Secondary IV ONE (16:10)
--- NOTE | 2018-04-04 17:05 | Diagnostic Imaging Report ---
APPROVED REPORT CPT Code: 78191 Present Symptoms Comments: Pain BILATERAL: Imaging reveals a patent deep venous system bilaterally. There is no evidence of thrombus within the femoral, popliteal or tibial segments. The greater saphenous veins are also within normal limits. Doppler indicates normal spontaneous flow within these segments. Note: Technically difficult and limited visualization from the left superficial femoral to the popliteal vein, due to patient condition.
[2018-04-04 20:00] VITALS: BP 150/86
[2018-04-04] MEDS: Carvedilol 6.25mg Tab GT SCH (20:03)
--- NOTE | 2018-04-04 21:45 | Progress Note ---
DATE: 04/04/2018 CARDIOLOGY PROGRESS NOTE SUBJECTIVE: The patient remains in sinus rhythm. No recurring ventricular arrhythmias. Tolerating feedings. No distress. OBJECTIVE: VITAL SIGNS: Blood pressure 128/64, pulse 89, and respirations 24. LUNGS: Bilateral breath sounds. No wheezing. HEART: Regular rhythm and rate. Normal S1, S2. ABDOMEN: Soft. EXTREMITIES: Trace edema. LABORATORY DATA: White count 8.1 and hemoglobin 11.2. Sodium 143, potassium 3.5, bicarb 24, BUN 18, and creatinine 1. Albumin 1.9. Magnesium 2.3. Repeat urine culture reveals Pseudomonas. IMPRESSION: 1. Polymicrobial urinary tract infection. 2. Chronic obstructive pulmonary disease. 3. Paroxysmal ventricular tachycardia. 4. Suprapubic catheter. 5. Cerebrovascular disease with dementia. 6. Dysphagia with G-tube. 7. Severe protein-calorie malnutrition. PLAN: 1. IV antibiotics per Infectious Disease cisco consultant. 2. Discharge planning. 3. Continue beta-blockade. 4. Monitor and replace electrolytes accordingly. 5. Protein supplement. Quentin Mclaughlin M.D. DR: YARON JOB#: [id number] CC:
[2018-04-05 00:33] VITALS: BP 145/85
[2018-04-05 04:00] VITALS: BP 141/70
[2018-04-05] MEDS: NovoLOG Insulin Flexpen SUBQ SCH ×3 (05:54→12:00)
[2018-04-05 08:00] VITALS: BP 126/92
[2018-04-05] MEDS ORDERED: COREG6.25 MG GT (09:07)
[2018-04-05] MEDS ORDERED: XARELTO15 MG GT (09:07)
[2018-04-05] MEDS ORDERED: FAMOTIDINE20 MG GT (09:07)
--- NOTE | 2018-04-05 09:38 | Urology Progress Note ---
Assessment/Plan Assessment/Plan 1. Urinary retention with chronic suprapubic tube. 2. Probable neurogenic bladder. 3. UTI and colonization. 4. Hematuria. 5. Proteinuria. 6. Mild acute kidney injury. 7. Nephrolithiasis history. 8. Renal cyst history. keep sp tube, last exchanged 04/02 hand irrigate PRN cont with abx as ordered monitor renal fxn consider renal u/s cysto at some point Subjective Allergies: Coded Allergies: CIPROFLOXACIN (Verified Allergy, Unknown, 08/23/15) Subjective all noted, new sp tube draining ok Objective Last 24 Hour Vital Signs Date Time Temp Pulse Resp B/P (MAP) Pulse Ox O2 Delivery O2 Flow Rate FiO2 04/05/18 08:00 97.7 72 20 126/92 (103) 99 04/05/18 05:34 74 04/05/18 04:00 Room Air 04/05/18 04:00 98.9 73 20 141/70 (93) 99 04/05/18 00:33 98.2 69 20 145/85 (105) 97 04/05/18 00:33 Room Air 04/04/18 20:03 74 150/86 04/04/18 20:00 99.9 75 18 150/86 (107) 97 04/04/18 20:00 Room Air 04/04/18 20:00 71 04/04/18 18:42 Nasal Cannula 2.0 28 04/04/18 18:42 99 Nasal Cannula 97.0 28 04/04/18 16:00 97.2 67 16 134/91 (105) 98 04/04/18 16:00 Room Air 04/04/18 16:00 72 04/04/18 12:00 97.7 77 18 112/81 (91) 98 04/04/18 12:00 Room Air 04/04/18 12:00 72 Intake and Output 04/04/18 04/05/18 19:00 07:00 Intake Total 765 ml 790 ml Output Total 1300 ml 1250 ml Balance -535 ml -460 ml Intake Free Water 50 ml 40 ml IV Total 55 ml 55 ml Tube Feeding 660 ml 605 ml Other 90 ml Output Urine Total 1300 ml 1250 ml # Bowel Movements 1 2 Microbiology Date/Time Source Procedure Growth Status 03/30/18 18:20 Blood Blood Culture - Final NO GROWTH AFTER 5 DAYS Complete 03/30/18 19:50 Nasal Nares MRSA Culture - Final NO METHICILLIN RESISTANT STAPH AUREUS... Complete 04/01/18 20:05 Urine,Clean Catch Urine Culture - Final Pseudomonas Aeruginosa Complete 03/31/18 03:00 Abdomen Gram Stain - Final Complete 03/31/18 03:00 Wound Culture - Final Staphylococcus Aureus - Mrsa Pseudomonas Aeruginosa Diphtheroids Complete Current Medications Medications (Trade) Dose Ordered Sig/Fab Route PRN Reason Start Time Stop Time Status Last Admin Dose Admin Acetaminophen (Tylenol) 650 mg Q4H PRN GT Mild Pain/Temp > 100.5 04/02/18 13:04 04/30/18 13:03 Carvedilol (Coreg) 6.25 mg EVERY 12 HOURS GT 04/04/18 21:00 05/04/18 08:59 04/04/18 20:03 Cefepime HCl 1 gm/ Dextrose 55 ml @ 110 mls/hr EVERY 12 HOURS IVPB 04/03/18 12:00 04/10/18 11:59 04/04/18 20:02 Dextrose (Dextrose 50%) 25 ml Q30M PRN IV Hypoglycemia 04/02/18 13:30 04/30/18 02:29 Dextrose (Dextrose 50%) 50 ml Q30M PRN IV Hypoglycemia 04/02/18 13:30 04/30/18 02:29 Famotidine (Pepcid) 20 mg BID GT 04/02/18 18:00 04/30/18 08:59 04/04/18 17:07 Insulin Aspart (NovoLOG) EVERY 6 HOURS SUBQ 04/02/18 18:00 04/30/18 05:59 04/04/18 11:40 Rivaroxaban (Xarelto) 15 mg DAILY GT 04/03/18 09:00 04/30/18 08:59 04/04/18 09:14 Height (Feet): 6 Weight (Pounds): 237 Objective exam stable Kulwinder Helms MD Apr 05, 2018 09:38
[2018-04-05] MEDS: Xarelto 15mg tab GT SCH (09:46)
[2018-04-05] MEDS: Carvedilol 6.25mg Tab GT SCH (09:46)
[2018-04-05] MEDS: Cefepime HCl 1 GM in D5W 55 ML IVPB SCH (09:46)
[2018-04-05 12:00] VITALS: BP 136/94
--- NOTE | 2018-04-05 13:34 | Infectious Diseases Prog Note ---
Assessment/Plan Assessment/Plan A 1. pseudomonas & proteus urinary tract infection treated 2. Chronic obstructive pulmonary disease. 3. leukocytosis resolved 4. history of Cerebrovascular accident. 5. Gastrostomy status 6. s/p suprapubic catheter 7. MRSA colonization P 1. discontinue cefepime 2. Agree with discharge to SNF without antibiotic Subjective ROS Limited/Unobtainable: Yes Constitutional: Reports: no symptoms Allergies: Coded Allergies: CIPROFLOXACIN (Verified Allergy, Unknown, 08/23/15) Objective Vital Signs Last 24 Hour Vital Signs Date Time Temp Pulse Resp B/P (MAP) Pulse Ox O2 Delivery O2 Flow Rate FiO2 04/05/18 12:00 66 04/05/18 09:46 72 126/92 04/05/18 08:00 97.7 72 20 126/92 (103) 99 04/05/18 08:00 Room Air 04/05/18 08:00 71 04/05/18 05:34 74 04/05/18 04:00 Room Air 04/05/18 04:00 98.9 73 20 141/70 (93) 99 04/05/18 00:33 98.2 69 20 145/85 (105) 97 04/05/18 00:33 Room Air 04/04/18 20:03 74 150/86 04/04/18 20:00 99.9 75 18 150/86 (107) 97 04/04/18 20:00 Room Air 04/04/18 20:00 71 04/04/18 18:42 Nasal Cannula 2.0 28 04/04/18 18:42 99 Nasal Cannula 97.0 28 04/04/18 16:00 97.2 67 16 134/91 (105) 98 04/04/18 16:00 Room Air 04/04/18 16:00 72 Height (Feet): 6 Weight (Pounds): 237 General Appearance: other - obese HEENT: mucous membranes moist Respiratory/Chest: lungs clear Cardiovascular: normal rate Abdomen: soft, non tender, other - GT feeding Genitourinary: other - suprapubi catheter Skin: ulcers 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: alert, responsive, motor weakness Current Medications Medications (Trade) Dose Ordered Sig/Fab Route PRN Reason Start Time Stop Time Status Last Admin Dose Admin Acetaminophen (Tylenol) 650 mg Q4H PRN GT Mild Pain/Temp > 100.5 04/02/18 13:04 04/30/18 13:03 Carvedilol (Coreg) 6.25 mg EVERY 12 HOURS GT 04/04/18 21:00 05/04/18 08:59 04/05/18 09:46 Cefepime HCl 1 gm/ Dextrose 55 ml @ 110 mls/hr EVERY 12 HOURS IVPB 04/03/18 12:00 04/10/18 11:59 04/05/18 09:46 Dextrose (Dextrose 50%) 25 ml Q30M PRN IV Hypoglycemia 04/02/18 13:30 04/30/18 02:29 Dextrose (Dextrose 50%) 50 ml Q30M PRN IV Hypoglycemia 04/02/18 13:30 04/30/18 02:29 Famotidine (Pepcid) 20 mg BID GT 04/02/18 18:00 04/30/18 08:59 04/05/18 09:46 Insulin Aspart (NovoLOG) EVERY 6 HOURS SUBQ 04/02/18 18:00 04/30/18 05:59 04/04/18 11:40 Rivaroxaban (Xarelto) 15 mg DAILY GT 04/03/18 09:00 04/30/18 08:59 04/05/18 09:46 Alex Balbuena MD Apr 05, 2018 13:34
--- NOTE | 2018-04-06 15:23 | Discharge Summary ---
Discharge Summary Discharge Summary _ DATE OF ADMISSION: 03/30/2018 DATE OF DISCHARGE: 04/05/2018 DISCHARGED BY: Dr. Mclaughlin REASON FOR ADMISSION: 57 years old male with past medical history of type 2 diabetes mellitus, COPD, cerebrovascular disease with cerebrovascular accident, dysphagia, aphasia, functional quadriplegia, history of DVT and pulmonary emboli, chronic kidney disease, GERD, resident of [facility] facility, was referred to emergency room for evaluation due to ongoing fevers of 101.6. No other associated symptoms were noted, including nausea, vomiting ,diarrhea, cough, sputum production or respiratory distress. Vital signs revealed low-grade fever 99.3 and tachycardia with heart rate 129. Pulse oximetry was stable on room air. Laboratory workup revealed leukocytosis WBC 19.7. Hemoglobin and hematocrit stable. Chemistry revealed sodium 150, BUN 36, creatinine 1.3. Glucose 114. Troponin was negative. Stable LFT and lipase. Urinalysis +3 protein plus high blood and evidence X-ray revealed no evidence of acute disease. Left-sided rib fracture deformities noted. Patient was admitted with diagnoses of sepsis probably due to complicated urinary tract infection, suprapubic catheter, history of cerebrovascular accident, dysphagia , G-tube feeding, history of DVT and PE (on full anticoagulation), type 2 diabetes mellitus with complication; secondary sinus tachycardia, hypokalemia, dehydration, hypernatremia, acute on chronic kidney injury. CONSULTANTS: ID specialist Dr. Marques Urologist Dr. Helms HOSPITAL COURSE: Patient admitted to cardiac monitored floor . Patient started on hypotonic IV fluids and empiric antibiotics. Full anticoagulation with Xarelto was continued. Renal parameters and electrolytes were closely monitored. Electrolytes were corrected as needed. Nephrotoxics were avoided. Upon discharge BUN from 30 down to 18, creatinine from 1.6 down to 1.0. Sodium 143. Potassium 3.5. Venous duplex bilateral lower extremities revealed no evidence of acute DVT. Supplemental oxygen provided as needed to keep oximetry above 92%. Pulmonary toilet was on standby as needed. Chest x-ray revealed clear lungs and pleural spaces. Strict aspiration /reflux precautions were maintained . Patient was able to tolerate tube feeding. Sports Book Board Attendant recommendation implemented in plan of care. Urologist seen and evaluated patient. Suprapubic tube catheter was changed 04/02. Urologist recommended to hand irrigate as needed. , continue antibiotics, follow up with renal function test and consider renal ultrasound and cystoscopy at some point. Echocardiogram revealed preserved ejection fraction 55-60% with mild left ventricular hypertrophy. No evidence of wall motion abnormalities. Right ventricular systolic pressure of 44 consistent with mild pulmonary hypertension. pro BNP 66. Patient was continued on full anticoagulation for history of DVT and PE . GI prophylaxis provided. No bleeding. Beta-stephan continued . Blood pressure was controlled with current dose of beta-stephan. ID specialist clsoely followed. Influenza screen test was negative. Blood cultures were negative. Urine culture revealed Pseudomonas aeruginosa and Proteus mirabilis , repeated urine culture revealed Pseudomonas aeruginosa. Antibiotic regimen was optimized as per ID specialist further recommendations. Patient completed treatment for urinary tract infection. Leukocytosis resolved. Hemoglobin and hematocrit were closely monitored with goal to keep hemoglobin above 7, remained stable. Blood sugar was closely monitored. Sliding scale insulin was on board as needed. Patient stabilized and was ready for transfer back to [facility] facility for continuation of care. FINAL DIAGNOSES: Sepsis due to complicated UTI Pseudomonas and Proteus UTI , status post treatment Leukocytosis - resolved Acute on chronic kidney injury due to dehydration Urinary retention with chronic suprapubic catheter, status post replacement Cerebrovascular disease with history of CVA and dementia Dysphagia, G-tube feeding History of DVT and PE COPD Hypernatremia- resolved Hypokalemia -resolved Severe protein calorie malnutrition Probable neurogenic bladder History of nephrolithiasis Diabetes melitis Severe protein calorie malnutrition DISCHARGE MEDICATIONS: See Medication Reconciliation list. DISCHARGE INSTRUCTIONS: Patient was discharged to the [facility] facility. Follow up with medical doctor at the facility. I have been assigned to dictate discharge summary for this account. I was not involved in the patient's management. Ann Marie Lees NP Apr 06, 2018 15:22
== END 2018-04-05 14:40 | DRG 720 ==
LOC: EDBD 17:44 → EMR 18:25 → EDBEDREQSVC 19:20 → 2E 19:22 → EDBEDREQ 21:22 → 2W 04-02 12:10
DX: A41.9 Sepsis, unspecified organism (principal); E43 Unspecified severe protein-calorie malnutrition; N17.9 Acute kidney failure, unspecified; E11.22 Type 2 diabetes mellitus with diabetic chronic kidney disease; R13.10 Dysphagia, unspecified; E87.8 Other disorders of electrolyte and fluid balance, not elsewhere classified; E86.0 Dehydration; N31.9 Neuromuscular dysfunction of bladder, unspecified; E87.0 Hyperosmolality and hypernatremia; N39.0 Urinary tract infection, site not specified; B96.4 Proteus (mirabilis) (morganii) as the cause of diseases classified elsewhere; B96.5 Pseudomonas (aeruginosa) (mallei) (pseudomallei) as the cause of diseases classified elsewhere; N18.9 Chronic kidney disease, unspecified; R33.9 Retention of urine, unspecified; I69.319 Unspecified symptoms and signs involving cognitive functions following cerebral infarction; F01.50 Vascular dementia, unspecified severity, without behavioral disturbance, psychotic disturbance, mood disturbance, and anxiety; Z43.1 Encounter for attention to gastrostomy; Z86.718 Personal history of other venous thrombosis and embolism; Z86.711 Personal history of pulmonary embolism; J44.9 Chronic obstructive pulmonary disease, unspecified; E87.6 Hypokalemia; Z88.1 Allergy status to other antibiotic agents; I27.20 Pulmonary hypertension, unspecified; S31.30XA Unspecified open wound of scrotum and testes, initial encounter; X58.XXXA Exposure to other specified factors, initial encounter; Z79.01 Long term (current) use of anticoagulants; Z68.34 Body mass index [BMI] 34.0-34.9, adult
CPT/HCPCS: 36415; 36600; 71045; 80048; 80053; 80202; 81003; 82550; 82553; 82803; 82962; 83605; 83735; 83880; 84443; 84484; 85007; 85025; 86710; 87040; 87070; 87081; 87086; 87181; 87205; 93005; 93306; 93970; 94760; 96361; 96365; 99285; J1815; J8499

== ENCOUNTER 2018-08-06 18:47 | Inpatient (IN) | payer MEDICAID ==
[~2018-08-06] VITALS: Ht 180.3 cm; Wt 100.3 kg
[~2018-08-06 18:47] MED LIST changes: +COREG6.25 MG GT; +FAMOTIDINE20 MG GT
[2018-08-06 19:06] VITALS: BP 100/81
--- NOTE | 2018-08-06 19:15 | NUR ---
ED Nurse Note: RECIEVED REPORT FROM AM NURSE TO RESUME CARE, PT IN BED EYES OPEN, PT IS NON-VERBAL BUT DOES FOLLOW COMMANDS APPROPRIATELY, PT IS ON CARDIAC MONITORING, NO SOB OR LABORED BREATHING NOTED, PT HAS SUPRAPUBIC CATH WITH DRAINAGE AND BLEEDING NOTED FROM STOMA SITE, G-TUBE INTACT AND PATENT, WILL RESUME CARE ORDERED AND CONTINUE TO CLOSELY MONITOR.
[2018-08-06 20:00] VITALS: BP 117/74
[2018-08-06 20:20] LABS: BASOPHILS % (AUTO) 1.5 % (0.0-2.0); EOSINOPHILS % (AUTO) 3.4 % (0.0-3.0); HEMATOCRIT 41.1 % (42.0-52.0); HEMOGLOBIN 13.3 G/DL (14.2-18.0); LYMPHOCYTES % (AUTO) 33.3 % (20.0-45.0); MEAN CORPUSCULAR VOLUME 89 FL (80-99); MONOCYTES % (AUTO) 10.5 % (1.0-10.0); NEUTROPHILS % (AUTO) 51.4 % (45.0-75.0); PLATELET COUNT 194 K/UL (150-450); RED BLOOD COUNT 4.63 M/UL (4.70-6.10); RED CELL DISTRIBUTION WIDTH 13.9 % (11.6-14.8); WHITE BLOOD COUNT 8.7 K/UL (4.8-10.8)
[2018-08-06 20:26] LABS: ANION GAP 6 mmol/L (5-15); BLOOD UREA NITROGEN 38 mg/dL (7-18); CALCIUM 9.3 MG/DL (8.5-10.1); CARBON DIOXIDE 31 MMOL/L (21-32); CHLORIDE 108 MMOL/L (98-107); CREATININE 0.9 MG/DL (0.55-1.30); POTASSIUM 3.8 MMOL/L (3.5-5.1); SODIUM 145 MMOL/L (136-145)
[2018-08-06 20:32] LABS: INR 1.1 (0.9-1.1)
[2018-08-06 20:35] LABS: ALANINE AMINOTRANSFERASE 31 U/L (12-78); ALBUMIN 3.1 G/DL (3.4-5.0); ALBUMIN/GLOBULIN RATIO 0.5 (1.0-2.7); ALKALINE PHOSPHATASE 74 U/L (46-116); ASPARTATE AMINO TRANSFERASE 17 U/L (15-37); BILIRUBIN,TOTAL 0.3 MG/DL (0.2-1.0); CREATINE KINASE 48 U/L (26-308)
--- NOTE | 2018-08-06 21:05 | Emergency Room Report ---
History of Present Illness General Chief Complaint: General Complaint Source: Medical Record, EMS Present Illness HPI Patient sent in for suprapubic cath not draining with blood in urine. He has a chronic indwelling suprapubic cath. No documented fevers. On blood thinners - Xarelto for DVT. Testicular lesion post passing of large stone. G tube. Post CVA. Patient last admitted March 2018 with these d/c dx: Sepsis due to complicated UTI Pseudomonas and Proteus UTI , status post treatment Leukocytosis - resolved Acute on chronic kidney injury due to dehydration Urinary retention with chronic suprapubic catheter, status post replacement Cerebrovascular disease with history of CVA and dementia Dysphagia, G-tube feeding History of DVT and PE COPD Hypernatremia- resolved Hypokalemia -resolved Severe protein calorie malnutrition Probable neurogenic bladder History of nephrolithiasis Diabetes melitis Severe protein calorie malnutrition Allergies: Coded Allergies: CIPROFLOXACIN (Verified Allergy, Unknown, 08/23/15) Patient History Limited by: medical condition Past Medical History: see triage record, old chart reviewed Social History Narrative SNF Reviewed Nursing Documentation: PMH: Agreed; PSxH: Agreed Nursing Documentation-PMH Past Medical History: No History, Except For Hx Cardiac Problems: Yes - tachycardia, DVT Hx COPD: Yes Hx Diabetes: Yes - type 2 Hx Cancer: No Hx Gastrointestinal Problems: Yes - Dysphagia Hx Neurological Problems: Yes - Encephalopathy Hx Cerebrovascular Accident: Yes Hx Transient Ischemic Attacks: Yes Hx Seizures: Yes - CRF Hx Paralysis: Yes - paraplegic Hx Speech Problem: Yes Hx Aphasia: Yes Review of Systems All Other Systems: limited Physical Exam Vital Signs Date Time Temp Pulse Resp B/P (MAP) Pulse Ox O2 Delivery O2 Flow Rate FiO2 08/06/18 18:50 98.4 85 18 122/85 96 Room Air Sp02 EP Interpretation: reviewed, normal General Appearance: alert, other - looks with eyes, Chronically Ill Eyes: bilateral eye normal inspection, bilateral eye PERRL, bilateral eye EOMI ENT: moist mucus membranes Neck: supple Respiratory: lungs clear, normal breath sounds Cardiovascular #1: regular rate, rhythm, no edema Cardiovascular #2: 2+ radial (R) Gastrointestinal: non tender, other - G tube, overweight Genitourinary: no CVA tenderness, other - suprapubic catheter, not draining, some hematuria from around the site - testicular lesion Musculoskeletal: other - contractures bilat legs (cross legged) Neurologic: alert, motor weakness, other - ebulic Skin: warm/dry, other - old scar (see genitals) Procedures Additional Procedure Procedure Narrative Remove prior cath. Betadine prep and insert suprapubic cath with ease (18 fr). Medical Decision Making Diagnostic Impression: Primary Impression: Hematuria Qualified Codes: R31.0 - Gross hematuria Additional Impressions: UTI (urinary tract infection) Qualified Codes: T83.510A - Infection and inflammatory reaction due to cystostomy catheter, initial encounter; N39.0 - Urinary tract infection, site not specified Encephalopathy chronic Xarelto use Suprapubic catheter dysfunction Qualified Codes: T83.010S - Breakdown (mechanical) of cystostomy catheter, sequela ER Course Patient presents with a nondraining suprapubic catheter. Differential includes urinary tract infection, catheter-related infection, catheter obstruction, hematuria, clots, anticoagulation amongst others. The patient will be evaluated with labs and a chest x-ray EKG at. The suprapubic catheter will be changed out. The patient may need to be started on antibiotics. When the suprapubic catheter was changed out there was dark hematuria without clots. Urine was draining without difficulty. Labs with normal CBC. CMP with elevated BUN. Normal coags (expected on Xarelto ). CXR no infiltreate. EKG, no injury. Pyuria in addition to hematuria. Patient begun on antibiotics. Admitted med, Dr. Smith. Will most likely need urology and hematology consult , along with serial H/H. Laboratory Tests Test 08/06/18 19:15 08/06/18 21:05 White Blood Count 8.7 K/UL (4.8-10.8) Red Blood Count 4.63 M/UL (4.70-6.10) L Hemoglobin 13.3 G/DL (14.2-18.0) L Hematocrit 41.1 % (42.0-52.0) L Mean Corpuscular Volume 89 FL (80-99) Mean Corpuscular Hemoglobin 28.7 PG (27.0-31.0) Mean Corpuscular Hemoglobin Concent 32.3 G/DL (32.0-36.0) Red Cell Distribution Width 13.9 % (11.6-14.8) Platelet Count 194 K/UL (150-450) Mean Platelet Volume 9.6 FL (6.5-10.1) Neutrophils (%) (Auto) 51.4 % (45.0-75.0) Lymphocytes (%) (Auto) 33.3 % (20.0-45.0) Monocytes (%) (Auto) 10.5 % (1.0-10.0) H Eosinophils (%) (Auto) 3.4 % (0.0-3.0) H Basophils (%) (Auto) 1.5 % (0.0-2.0) Prothrombin Time 11.2 SEC (9.30-11.50) Prothrombin Time INR 1.1 (0.9-1.1) PTT 30 SEC (23-33) Sodium Level 145 MMOL/L (136-145) Potassium Level 3.8 MMOL/L (3.5-5.1) Chloride Level 108 MMOL/L (98-107) H Carbon Dioxide Level 31 MMOL/L (21-32) Anion Gap 6 mmol/L (5-15) Blood Urea Nitrogen 38 mg/dL (7-18) H Creatinine 0.9 MG/DL (0.55-1.30) Estimate Glomerular Filtration Rate > 60 mL/min (>60) Glucose Level 110 MG/DL (74-106) H Lactic Acid Level 1.00 mmol/L (0.4-2.0) Calcium Level 9.3 MG/DL (8.5-10.1) Magnesium Level 2.5 MG/DL (1.8-2.4) H Total Bilirubin 0.3 MG/DL (0.2-1.0) Aspartate Amino Transferase (AST) 17 U/L (15-37) Alanine Aminotransferase (ALT) 31 U/L (12-78) Alkaline Phosphatase 74 U/L (46-116) Total Creatine Kinase 48 U/L (26-308) Troponin I 0.000 ng/mL (0.000-0.056) Pro-B-Type Natriuretic Peptide 22 pg/mL (0-125) Total Protein 9.4 G/DL (6.4-8.2) H Albumin 3.1 G/DL (3.4-5.0) L Globulin 6.3 g/dL Albumin/Globulin Ratio 0.5 (1.0-2.7) L Urine Color Red Urine Appearance Cloudy Urine pH 7 (4.5-8.0) Urine Specific E[place]y 1.010 (1.005-1.035) Urine Protein 4+ (NEGATIVE) H Urine Glucose (UA) Negative (NEGATIVE) Urine Ketones 1+ (NEGATIVE) H Urine Blood 5+ (NEGATIVE) H Urine Nitrite Negative (NEGATIVE) Urine Bilirubin Negative (NEGATIVE) Urine Urobilinogen 1 MG/DL (0.0-1.0) H Urine Leukocyte Esterase 3+ (NEGATIVE) H Urine RBC Tntc /HPF (0 - 0) H Urine WBC Tntc /HPF (0 - 0) H Urine Squamous Epithelial Cells None /LPF (NONE/OCC) Urine Bacteria Moderate /HPF (NONE) H EKG Diagnostic Results Rate: normal Rhythm: NSR ST Segments: no acute changes - LAD Rhythm Strip Diag. Results EP Interpretation: yes Rhythm: NSR, no PVC's, no ectopy Chest X-Ray Diagnostic Results Chest X-Ray Diagnostic Results : Chest X-Ray Ordered: Yes # of Views/Limited/Complete: 1 View Indication: Other EP Interpretation: Yes Interpretation: no consolidation, no effusion, no pneumothorax, other - rotation Impression: Other Electronically Signed by: Electronically signed by Quentin Diaz MD Last Vital Signs Date Time Temp Pulse Resp B/P (MAP) Pulse Ox O2 Delivery O2 Flow Rate FiO2 08/07/18 01:25 Room Air 08/07/18 00:00 98.2 105/73 (84) 08/06/18 23:30 88 18 97 Status: improved Disposition: ADMITTED INPATIENT Condition: Serious Referrals: NON PHYSICIAN (PCP) Quentin Diaz MD Aug 06, 2018 21:05
[2018-08-06] MEDS ORDERED: cefTRIAXone 1 GM in NS 55 ML IVPB ONE (21:45)
[2018-08-06 21:54] LABS: APPEARANCE,URINE CLOUDY; BILIRUBIN, URINE NEGATIVE (NEGATIVE); GLUCOSE, URINE (UA) NEGATIVE (NEGATIVE); KETONES,URINE 1+ (NEGATIVE); LEUKOCYTE ESTERASE ,URINE 3+ (NEGATIVE); NITRITE,URINE NEGATIVE (NEGATIVE); PH,URINE 7 (4.5-8.0); PROTEIN,URINE 4+ (NEGATIVE); UROBILINOGEN,URINE 1 MG/DL (0.0-1.0)
[2018-08-06 22:00] VITALS: BP 126/77
--- NOTE | 2018-08-06 22:00 | NUR ---
ED Nurse Note: Pt continues to rest quietly in bed, being prepared for admission, pt remains on cardiac monitoring, iv site patent with fluids infusing, changed suprapubic catheter and no complications or resistance, remains with gross hematuria, specimen sent to lab, pt re-positioned and turned with pillows, skin is intact, will continue to closely monitor and resume care as ordered.
[2018-08-06 22:03] LABS: COLOR,URINE RED
[2018-08-06] MEDS ORDERED: Milk of Magnesia 30ml Ud GT PRN (22:30)
[2018-08-06] MEDS: Piperacillin/Tazobactam 3.375 GM in NS 110 ML IVPB SCH (22:30)
[2018-08-06] MEDS: Carvedilol 6.25mg Tab GT SCH (22:45)
--- NOTE | 2018-08-06 23:20 | NUR ---
ED Nurse Note: PT BEING ADMITTED TO HOSPITAL, ALL FORMS COMPLETED, PT CONTINUES TO REST QUIETLY, NO CHANGES OR DISTRESS NOTED, PT GIVEN IV ANTIBIOTICS, TOLERATED WELL, NO S/S OF ADVERSE REACTION NOTED, BELONGINGS LIST COMPLETED AND ALL FORMS, VERBAL REPORT CALLED TO FLOOR NURSE MOI,RN, PT TAKEN TO UNIT VIA GURNEY AND ER-TECH.
[2018-08-07] VITALS: BP 105/73
--- NOTE | 2018-08-07 00:20 | NUR ---
NURSE NOTES: Received ER report from CANDI Blakely. Patient arrived on the unit at 0010. Patient is awake, AAOX1, on room air, no s/s of distress or pain, unlabored breathing. Patient has a supra pubic cath in place that was inserted on 08/06/2018, hematuria output noted. Patient is contracted on bilateral leg, pillows supports on both knees and float heels on pillows. Patient has a tube feeding, auscultated for placement, no residuals, running Glucerna 1.2 at 30 ml/hr, dressing dry and intact. Patient has a patent left AC 20G. Seizure precaution implemented. Side rails padded. Bed is locked at the lowest position, bed alarm active side rails up x2, and call lights are within reach. Will continue to monitor.
[2018-08-07] MEDS: Piperacillin/Tazobactam 3.375 GM in NS 110 ML IVPB SCH ×3 (01:08→16:10)
[2018-08-07 04:00] VITALS: BP 102/70
--- NOTE | 2018-08-07 07:37 | NUR ---
HAND-OFF: Report given to Nanda Hanson RN.
--- NOTE | 2018-08-07 07:45 | NUR ---
nurse notes received patient in bed, patient is awake, alert,orientedX1, no sign of distress,on room air, HL patent. Patient has a supra pubic cath in place that was inserted on 08/06/2018,bloody output noted with small clots noted, G tube feeding Tolerating well, no residuals,on fall, aspiration , Seizure precaution implemented. HOB elevated ,Side rails padded. Bed is locked at the lowest position, bed alarm active side rails up x2, and call lights are within reach.per NOC shift MD notified for admission order, Will continue to monitor alonzo.
[2018-08-07 07:50] LABS: BASOPHILS % (AUTO) 1.4 % (0.0-2.0); EOSINOPHILS % (AUTO) 3.5 % (0.0-3.0); HEMATOCRIT 43.9 % (42.0-52.0); LYMPHOCYTES % (AUTO) 31.3 % (20.0-45.0); MEAN CORPUSCULAR VOLUME 91 FL (80-99); NEUTROPHILS % (AUTO) 52.8 % (45.0-75.0); PLATELET COUNT 164 K/UL (150-450); RED BLOOD COUNT 4.82 M/UL (4.70-6.10); RED CELL DISTRIBUTION WIDTH 14.7 % (11.6-14.8); WHITE BLOOD COUNT 8.1 K/UL (4.8-10.8)
[2018-08-07 08:00] VITALS: BP 109/80
[2018-08-07] MEDS: Carvedilol 6.25mg Tab GT SCH ×2 (08:27→21:40)
[2018-08-07] MEDS: Multivitamin w/Minerals tab ORAL SCH (08:27)
[2018-08-07] MEDS: Docusate 100mg cap ORAL SCH (08:27)
[2018-08-07] MEDS ORDERED: Carvedilol 6.25mg Tab GT SCH (09:00)
--- NOTE | 2018-08-07 10:21 | Diagnostic Imaging Report ---
Indication: Chest pain Technique: One view of the chest Comparison: 04/01/2018 Findings: Right suprahilar scarring is again demonstrated. Lungs and pleural spaces are otherwise clear. The heart is upper limits of normal in size. The aorta is tortuous and ectatic. Impression: Findings as noted. No definite acute process
--- NOTE | 2018-08-07 11:44 | NUR ---
RD ASSESSMENT & RECOMMENDATIONS SEE CARE ACTIVITY FOR COMPLETE ASSESSMENT DAILY ESTIMATED NEEDS: Needs based on DM, Obesity 77.6adj 20-25 kcals/kg 8220-8741 total kcals 1-1.5 g protein/kg 78-116 g total protein 25-30 mL/kg 5114-2123 total fluid mLs NUTRITION DIAGNOSIS: 1) Swallowing difficulty related to dysphagia s/p cva as evidenced by pt dependent on PEG for all nutrition and hydration needs. CURRENT TF: Glucerna 1.2 @55ml x24hrs ENTERAL NUTRITION RECOMMENDATIONS: Glucerna 1.5 @ 45ml/hr x 24hrs to provide 1080ml, 1620 kcal, 89g prot, 820ml free H2O * Rec TF change to Glucerna 1.5, initiate @25ml for 6 hrs. Advance as tolerated 10ml every 4-6 hrs to goal of 45ml/hr x24 hrs * HOB >30 degrees/ H2O flushes per MD ADDITIONAL RECOMMENDATIONS: 1) Obtain an UPDATED CALIBRATED BEDSCALE WEIGHT as able 2) TF recs as above to better meet est needs 3) Monitor lytes closely, replete as needed 4) NISS/ accuchecks for BG control .
[2018-08-07 12:00] VITALS: BP 100/65
--- NOTE | 2018-08-07 14:54 | Diagnostic Imaging Report ---
APPROVED REPORT CPT Code: 02161 RIGHT LEG: Venous imaging reveals a patent deep venous system. There is no evidence of thrombus within the femoral, popliteal or tibial segments. Doppler indicates normal spontaneous flow within these segments. LEFT LEG: Venous imaging reveals recanalized chronic thrombus in the superficial femoral vein. Large collateral vein noted anterior to the superficial femoral artery. The remainder of the deep venous system is within normal limits. There is no evidence of thrombus in the common femoral, or calf veins. The popliteal vein was not imaged due to knee contracture. The greater saphenous vein is also within normal limits. Doppler indicates normal spontaneous flow within these segments. There is no evidence of acute deep vein thrombosis.
[2018-08-07 16:00] VITALS: BP 129/54
--- NOTE | 2018-08-07 16:15 | History and Physical Report ---
DATE OF ADMISSION: 08/06/2018 CHIEF COMPLAINT: Hematuria and UTI. HISTORY OF PRESENT ILLNESS: The patient is a 58-year-old male. He has a prior history of stroke. He has a history of suprapubic catheter. He has a history of hypertensive heart disease, who presented with complaints of hematuria. The patient is on Xarelto for prior history of DVT. Labs in the emergency room were consistent with urinary tract infection. The patient has been cultured and started on antibiotics and is now admitted. PAST MEDICAL HISTORY: As above. PAST SURGICAL HISTORY: Includes a history of a G-tube and suprapubic catheter. CURRENT MEDICATIONS: Reconciled and reviewed. ALLERGIES: Include Cipro. FAMILY HISTORY: Noncontributory. SOCIAL HISTORY: There is no known history of tobacco, ethanol, or drugs. REVIEW OF SYSTEMS: Unobtainable as the patient is nonverbal. PHYSICAL EXAMINATION: VITAL SIGNS: Temperature 98.1, pulse 86, respirations 18, and blood pressure 102/70. GENERAL: The patient is well developed, in no apparent distress. Nonverbal. HEART: Regular rate and rhythm. LUNGS: Clear. ABDOMEN: Soft. EXTREMITIES: Without clubbing or cyanosis. GENITOURINARY: The patient has suprapubic catheter with dark blood-tinged urine. LABORATORY DATA: Sodium 145. Hemoglobin 13. INR is 1.1. Creatinine was 0.9. UA showed too numerous to count wbc's. ASSESSMENT: This is a pleasant 58-year-old male with a prior history of stroke, hypertension, suprapubic catheter, and encephalopathy, admitted with hematuria secondary to urinary tract infection and anticoagulation. PLAN: 1. IV antibiotics. 2. Follow up cultures. 3. Discontinue Xarelto. We will place SCDs. We will resume Xarelto once bleeding is better. 4. We will continue the patient's G-tube feeds and cardiac medications. Gabo Smith M.D. DR: CHRISTA JOB#: [id number] CC:
--- NOTE | 2018-08-07 16:47 | NUR ---
CASE MANAGEMENT:REVIEW 58 YR OLD MALE BIBA FROM [facility] CC: HEMATURIA. UTI SI: HEMATURIA. SUPRAPUBIC 98.4 85 18 122/85 96% ON RA H/H-13.3/41.1 MAG-2.5 IS: 1L NS BOLUS IV ZOSYN Q8HRS CHEST XRAY BLOOD CX : TO MED[facility]G [facility]
--- NOTE | 2018-08-07 17:43 | NUR ---
nurse notes called [facility] spoke to secretary receptionist regarding patient admission/condition/ medication ,per secretary receptionist Dr Smith will take care of it will continue to monitor poonam rosado
--- NOTE | 2018-08-07 18:42 | CDS Physician Query ---
--------- THIS DOCUMENT IS A PERMANENT PART OF THE MEDICAL RECORD --------- PLEASE COMPLETE THE QUESTION BEFORE SIGNING Acct#[id number] Pt Name: Tim Conti Elina Dear Dr. Smith Date: _08/07/2018 Mixer Pigment/CDS Name: _Shubham Phone No. : Exercise your independent professional judgment when responding to the query. Questions asked do not imply a particular answer is desired or expected. We greatly appreciate your clarification on this issue. CLINICAL DOCUMENTATION STATES: ED Note: Patient sent in for suprapubic cath not draining with blood in urine. He has a chronic indwelling suprapubic cath. H&P: admitted with hematuria secondary to urinary tract infection and anticoagulation Rx: Ceftriaxone IV CLINICAL FINDINGS SHOW: U/A: Ur leukocyte Esterase 3+, Ur ketone 1+ Please respond to the following question: Is there a causal relationship between the _UTI____ and _Suprapubic Catheter____ ? PHYSICIAN RESPONSE: [] YES [] NO Condition Present on admission [] Yes [] No []Clinically Undeterminable Please also document in your Progress Notes and/or Discharge summary and indicate if the condition was present on admission. M.D.
--- NOTE | 2018-08-07 19:51 | NUR ---
HAND-OFF: Report given to CANDI SUMMERS. CANDI VEGA
--- NOTE | 2018-08-07 19:52 | NUR ---
NURSE NOTES: Received patient in bed, patient is awake, alert,orientedX1, no sign of distress,on room air, HL patent. Patient has a supra pubic cath in place that was inserted on 08/06/2018,light micheline output noted. G tube feeding Tolerating well, no residuals,on fall, aspiration , Seizure precaution implemented. HOB elevated ,Side rails padded. Bed is locked at the lowest position, bed alarm active side rails up x2, and call lights are within reach. Will continue to monitor
[2018-08-07 20:00] VITALS: BP 128/79
[2018-08-08] MEDS: Piperacillin/Tazobactam 3.375 GM in NS 110 ML IVPB SCH ×3 (01:00→17:08)
[2018-08-08 04:00] VITALS: BP 105/71
--- NOTE | 2018-08-08 07:30 | NUR ---
nurse notes received patient in bed, sleeping, no sign of distress,on room air, HL patent. Patient has a supra pubic cath in place, G tube feeding tolerating well, no residuals noted,on fall, aspiration ,Seizure precaution implemented. HOB elevated ,Side rails padded. Bed is locked at the lowest position, bed alarm active,side rails up x2, and call lights are within reach. Will continue to monitor [facility].
--- NOTE | 2018-08-08 07:42 | NUR ---
HAND-OFF: Report given to CANDI Pineda
--- NOTE | 2018-08-08 07:55 | NUR ---
nurse notes seen and examined by Dr Smith with order noted and carried out poonam rosado
[2018-08-08 08:00] VITALS: BP 113/72
[2018-08-08] MEDS: Carvedilol 6.25mg Tab GT SCH ×2 (08:13→21:00)
[2018-08-08] MEDS: Multivitamin w/Minerals tab ORAL SCH (08:14)
[2018-08-08] MEDS: Docusate 100mg cap ORAL SCH (08:14)
--- NOTE | 2018-08-08 09:54 | NUR ---
CASE MANAGEMENT:REVIEW 08/08/18 SI: ENCEPHALOPATHY HEMATURIA SECONDARY TO UTI 98.0 90 18 105/71 100% ON RA IS: IV ZOSYN Q8HRS PEPCID GT BID COREG GT Q12 : MED/SURG STATUS 4 [facility]
[2018-08-08 11:52] VITALS: BP 157/64
--- NOTE | 2018-08-08 14:00 | NUR ---
NURSE NOTES Wound care done on the scrotum, and Gtube site tolerated well poonam rosado
--- NOTE | 2018-08-08 14:30 | Cardiology Report ---
APPROVED REPORT EKG Measurement Heart [id number] ID [id number] Sinus rhythm with fusion complexes Left axis deviation Inferior infarct, age undetermined Possible Anterolateral infarct, age undetermined Abnormal ECG
[2018-08-08 16:00] VITALS: BP 139/69
[2018-08-08] MEDS ORDERED: Tubing IV Secondary IV ONE (16:46)
--- NOTE | 2018-08-08 19:10 | NUR ---
HAND-OFF: Report given to CANDI SUMMERS. CANDI VEGA
[2018-08-08 20:00] VITALS: BP 122/84
[2018-08-09] VITALS: BP 128/78
[2018-08-09] MEDS: Piperacillin/Tazobactam 3.375 GM in NS 110 ML IVPB SCH ×2 (00:41→09:01)
[2018-08-09 04:00] VITALS: BP 104/72
--- NOTE | 2018-08-09 07:30 | NUR ---
NURSE NOTES: Received pt from CANDI MOORE, Pt is nonverbal and orient x1. pt is in RA , No SOB or acute respiratory distress noted. pt has intact iv access LAC 20G is running well. pt has Supra pubic cath in place is running well. pt has G tube in place is running well.all needs attended, bed is locked and is in the lowest position, call light within easy reach. will continue to monitor.
--- NOTE | 2018-08-09 07:44 | NUR ---
HAND-OFF: Report given to CANDI Yang.
[2018-08-09 08:00] VITALS: BP 120/87
[2018-08-09] MEDS: Docusate 100mg cap ORAL SCH (09:01)
[2018-08-09] MEDS: Carvedilol 6.25mg Tab GT SCH (09:01)
[2018-08-09] MEDS: Multivitamin w/Minerals tab ORAL SCH (09:01)
[2018-08-09] MEDS ORDERED: BACTRIM-DS1 EA ORAL ×2 (10:17)
--- NOTE | 2018-08-09 11:18 | NUR ---
RD ASSESSMENT & RECOMMENDATIONS SEE CARE ACTIVITY FOR COMPLETE ASSESSMENT DAILY ESTIMATED NEEDS: Needs based on DM, Obesity 77.6adj 20-25 kcals/kg 2657-8484 total kcals 1-1.5 g protein/kg 78-116 g total protein 25-30 mL/kg 3137-9106 total fluid mLs NUTRITION DIAGNOSIS: 1) Swallowing difficulty related to dysphagia s/p cva as evidenced by pt dependent on PEG for all nutrition and hydration needs. CURRENT TF:Glucerna 1.2 @55ml x24hrs ENTERAL NUTRITION RECOMMENDATIONS: Glucerna 1.5 @ 45ml/hr x 24hrs + Prosource x1 daily to provide 1080ml, 1620 kcal, 89g prot, 820ml free H2O * Rec TF change to Glucerna 1.5, initiate @25ml for 6 hrs. Advance as tolerated 10ml every 4-6 hrs to goal of 45ml/hr x24 hrs * HOB >30 degrees/ H2O flushes per MD ADDITIONAL RECOMMENDATIONS: 1) Obtain an UPDATED CALIBRATED BED SCALE WEIGHT as able 2) TF recs as above to better meet est needs 3) Monitor lytes closely, replete as needed 4) NISS/ accuchecks for BG control .
[2018-08-09 11:58] VITALS: BP 114/81
--- NOTE | 2018-08-09 12:36 | NUR ---
DISCHARGE PLANNING DISCHARGE ORDER NOTED CLINICALS FAXED TO [facility] AWAIT ACCEPTANCE AND ROOM NUMBER
--- NOTE | 2018-08-09 13:13 | NUR ---
DISCHARGE PLANNED PATIENT WILL DISCHARGE TO [facility] ROOM 17 T: [phone] FOR NURSE TO NURSE REPORT [facility] HAS BEEN ARRANGED FOR [address] [employer] MONITORING TECHNICIAN
--- NOTE | 2018-08-09 15:30 | NUR ---
NURSE NOTES: Pt has D/C order, all discharge instructions and assessments done. pt is stable, V/S stable. GIVEN BED BATH TO PT AND TOLERATE WELL. supra pubic cath flushed, g tube cath flushed. pt's sister is aware. given report to CANDI DEWEY. iv access D/C. NO BELONGINGS WITH PT. pt left hospital with accompany of hospital personnel.
--- NOTE | 2018-08-10 03:30 | Discharge Summary ---
DATE OF ADMISSION: 08/06/2018 DATE OF DISCHARGE: 08/09/2018 ADMISSION DIAGNOSES: 1. Sepsis. 2. Urinary tract infection. 3. Stroke. 4. History of suprapubic catheter. DISCHARGE DIAGNOSES: 1. Sepsis. 2. Urinary tract infection. 3. Stroke. 4. History of suprapubic catheter. HOSPITAL COURSE: The patient is an unfortunate male with a history of stroke. He has a history of suprapubic catheter. He presented with complaints of hematuria. He was diagnosed with a Proteus urinary tract infection. He received antibiotics and improved. His hematuria resolved and on discharge, he was stable. He will be discharged back to [facility] facility to complete a week of antibiotic therapy there. DISCHARGE MEDICATIONS: Please see discharge medication list for discharge medications. DIET: G-tube feedings. ACTIVITIES: Ad-odell. FOLLOWUP: The patient will be followed by his PMD at the [facility]. Gabo Smith M.D. DR: JOE JOB#: [id number] CC:
[2018-12-13] MEDS ORDERED: LANSOPRAZOLE30 MG GT (15:04)
[2019-01-20] MEDS ORDERED: HEPARIN 6,6000 UNIT/ IV (09:37)
[2019-01-20] MEDS ORDERED: PRO-STAT LIQUID30 ML GT (09:40)
[2019-01-20] MEDS ORDERED: ZINC50 M2 GT (09:41)
[2019-01-20] MEDS ORDERED: ASCORBIC ACID500 MG GT (09:41)
[2019-01-22] MEDS ORDERED: NOVOLOG100 UNITS1 (14:14)
[2019-01-22] MEDS ORDERED: CEFDINIR300 MG PO ×2 (14:20→14:21)
== END 2018-08-09 15:40 | DRG 466 ==
LOC: EDBD 18:47 → EMR 19:41 → 4E 21:34 → EDBEDREQ 21:55
PROC: 0T2BX0Z Change Drainage Device in Bladder, External Approach (ICD-10-PCS; principal; 2018-08-06)
DX: T83.510A Infection and inflammatory reaction due to cystostomy catheter, initial encounter (principal); Z43.5 Encounter for attention to cystostomy; I11.9 Hypertensive heart disease without heart failure; N39.0 Urinary tract infection, site not specified; Z79.01 Long term (current) use of anticoagulants; B96.4 Proteus (mirabilis) (morganii) as the cause of diseases classified elsewhere; Z86.73 Personal history of transient ischemic attack (TIA), and cerebral infarction without residual deficits; Z88.1 Allergy status to other antibiotic agents; Z86.718 Personal history of other venous thrombosis and embolism; R31.9 Hematuria, unspecified
CPT/HCPCS: 36415; 51702; 71045; 80053; 81003; 82550; 82962; 83605; 83735; 83880; 84484; 85025; 85610; 85730; 86850; 86900; 86901; 87040; 87081; 87086; 87181; 93005; 93970; 96365; 99285

== ENCOUNTER 2018-10-29 00:01 | Inpatient (IN) | payer MEDICAID ==
[~2018-10-29] VITALS: Ht 170.2 cm; Wt 105.3 kg
[2018-10-29] VITALS (41 sets, daily range): BP systolic 76–187; BP diastolic 51–152
[~2018-10-29 00:01] MED LIST changes: +BACTRIM-DS1 EA ORAL
--- NOTE | 2018-10-29 00:05 | NUR ---
ED Nurse Note: TRISTON PRAJAPATI FROM [facility] C/O FEVER X2100. TEMP 100.3 HR 150 AT TRIAGE. CURRENTLY UNDER TREATMENT FOR UTI. PT LETHARGIC BUT RESPONSE TO NOXIOUS STIMULI. SINUS TACH. ROOM AIR SPO2 98%. GTUBE AND AND SUPRAPUBIC NOTED.
--- NOTE | 2018-10-29 00:23 | Emergency Room Report ---
History of Present Illness General Chief Complaint: Altered Mental Status Source: Medical Record, EMS Present Illness HPI This is a 58-year-old male snf patient. He presents with chief complaint of fever tachycardia and sepsis. He is being treated for UTI with Cipro. He had a fever snf. I was also very tachycardic. Unable to get any history from this patient because of his condition. Allergies: Coded Allergies: CIPROFLOXACIN (Verified Allergy, Unknown, 08/23/15) Patient History Past Medical History: see triage record, old chart reviewed Past Surgical History: other Pertinent Family History: none Social History: Denies: smoking Immunizations: other Reviewed Nursing Documentation: PMH: Agreed; PSxH: Agreed Nursing Documentation-PMH Hx Cardiac Problems: Yes - tachycardia, DVT Hx COPD: Yes Hx Diabetes: Yes - type 2 Hx Cancer: No Hx Gastrointestinal Problems: Yes - Dysphagia Hx Neurological Problems: Yes - Encephalopathy Hx Cerebrovascular Accident: Yes Hx Transient Ischemic Attacks: Yes Hx Seizures: Yes - CRF Hx Paralysis: Yes - paraplegic Hx Speech Problem: Yes Hx Aphasia: Yes Review of Systems Constitutional: Reports: fever, malaise, weakness Eye: Denies: eye pain, blurred vision ENT: Denies: ear pain, nose congestion, throat swelling Respiratory: Denies: cough, shortness of breath Cardiovascular: Denies: chest pain, palpitations Gastrointestinal: Denies: abdominal pain, diarrhea, nausea, vomiting Musculoskeletal: Denies: back pain, joint pain Skin: Denies: rash Neurological: Denies: headache, numbness Endocrine: Denies: increased thirst, increased urine Hematologic/Lymphatic: Denies: easy bruising All Other Systems: limited - secondary to condition Physical Exam Vital Signs Date Time Temp Pulse Resp B/P (MAP) Pulse Ox O2 Delivery O2 Flow Rate FiO2 10/29/18 00:02 100.2 150 16 100/51 (67) 100 Room Air Vitals with fever and tachycardia Sp02 EP Interpretation: reviewed, abnormal General Appearance: well appearing, moderate distress, lethargic Head: normocephalic, atraumatic Eyes: bilateral eye PERRL, bilateral eye EOMI ENT: hearing grossly normal, normal pharynx Neck: full range of motion, supple, no meningismus Respiratory: chest non-tender, lungs clear, normal breath sounds Cardiovascular #1: no murmur, tachycardia Gastrointestinal: normal bowel sounds, non tender, no mass, no organomegaly, no bruit, non-distended Musculoskeletal: back normal, normal range of motion Psychiatric: mood/affect normal Procedures Critical Care Time Critical Care Time Critical care is mandated in this patient who presented with septic shock from UTI. Patient require my urgent intervention to attenuate the risks of metabolic collapse which may lead to cardiovascular collapse and . Critical care time is 35 minutes excluding any reportable procedure. Critical care time included evaluation, multiple reevaluation, looking at old charts, interpreting laboratory and diagnostic data, discussing case with patient and family and consultants, and charting. Medical Decision Making Diagnostic Impression: Primary Impression: Septic shock Additional Impressions: UTI (urinary tract infection) Qualified Codes: N30.00 - Acute cystitis without hematuria GILDARDO (acute kidney injury) Dehydration ER Course Patient with septic shock secondary to UTI. He grew out Proteus and Pseudomonas in the past. I put him on cefepime here. He received fluids. Heart rate improved greatly from 140s-150s to now 110. BP however still was hypotensive. I placed a central line and started patient on levophed. prognosis poor. I contacted Dr. Bear and Manny for admission. Sepsis reevaluation: Vital signs: Improve heart rate. Blood pressure improved somewhat. General: No responsive after IV fluid Cardiovascular: Tachycardic but improved capillary refill less than 2-second Lungs: Clear to auscultation Abd: Soft Extremity: No edema Skin: No mottling EKG Diagnostic Results Rate: tachycardiac Rhythm: NSR ST Segments: other - NSST changes Rhythm Strip Diag. Results EP Interpretation: yes Rate: 140 Rhythm: NSR, no PVC's, no ectopy Chest X-Ray Diagnostic Results Chest X-Ray Diagnostic Results : Chest X-Ray Ordered: Yes # of Views/Limited/Complete: 1 View Indication: Shortness of Breath EP Interpretation: Yes Interpretation: no consolidation, no effusion, no pneumothorax, no acute cardiopulmonary disease Impression: No acute disease Electronically Signed by: Zander Ocampo MD Last Vital Signs Date Time Temp Pulse Resp B/P (MAP) Pulse Ox O2 Delivery O2 Flow Rate FiO2 10/29/18 00:02 100.2 150 16 100/51 (67) 100 Room Air Status: improved Disposition: ADMITTED INPATIENT Condition: Critical Zander Ocampo MD Oct 29, 2018 00:23
[2018-10-29] MEDS ORDERED: SENNA176 MG/5 M GT (00:29)
[2018-10-29] MEDS ORDERED: Acetaminophen 650 MG SUPP RECTAL ONE (00:30)
[2018-10-29 00:31] LABS: HEMATOCRIT 46.1 % (42.0-52.0); HEMOGLOBIN 14.8 G/DL (14.2-18.0); MEAN CORPUSCULAR VOLUME 89 FL (80-99); PLATELET COUNT 209 K/UL (150-450); RED BLOOD COUNT 5.16 M/UL (4.70-6.10); WHITE BLOOD COUNT 18.2 K/UL (4.8-10.8)
--- NOTE | 2018-10-29 00:36 | NUR ---
ED Nurse Note: Blood sample sent to lab.
[2018-10-29 00:45] LABS: ANION GAP 10 mmol/L (5-15); BLOOD UREA NITROGEN 41 mg/dL (7-18); CALCIUM 9.5 MG/DL (8.5-10.1); CARBON DIOXIDE 27 MMOL/L (21-32); CHLORIDE 106 MMOL/L (98-107); CREATININE 1.9 MG/DL (0.55-1.30); POTASSIUM 4.2 MMOL/L (3.5-5.1); SODIUM 143 MMOL/L (136-145)
[2018-10-29 00:47] LABS: APPEARANCE,URINE CLOUDY; BILIRUBIN, URINE NEGATIVE (NEGATIVE); GLUCOSE, URINE (UA) NEGATIVE (NEGATIVE); KETONES,URINE NEGATIVE (NEGATIVE); NITRITE,URINE POSITIVE (NEGATIVE); PH,URINE 9 (4.5-8.0); PROTEIN,URINE 3+ (NEGATIVE); UROBILINOGEN,URINE NORMAL MG/DL (0.0-1.0)
[2018-10-29 00:51] LABS: ALANINE AMINOTRANSFERASE 14 U/L (12-78); ALBUMIN 2.9 G/DL (3.4-5.0); ALBUMIN/GLOBULIN RATIO 0.4 (1.0-2.7); ALKALINE PHOSPHATASE 102 U/L (46-116); ASPARTATE AMINO TRANSFERASE 15 U/L (15-37); BILIRUBIN,TOTAL 0.7 MG/DL (0.2-1.0); CREATINE KINASE 44 U/L (26-308)
[2018-10-29 01:11] LABS: COLOR,URINE YELLOW; LEUKOCYTE ESTERASE ,URINE 2+ (NEGATIVE)
[2018-10-29 01:14] LABS: CKMB < 0.5 NG/ML (0.0-3.6)
[2018-10-29] MEDS ORDERED: Cefepime HCl 1 GM in D5W 55 ML IVPB ONE (01:15)
--- NOTE | 2018-10-29 01:30 | NUR ---
ED Nurse Note: REPEAT LACTIC COLLECTED; SENT DOWN TO LAB.
--- NOTE | 2018-10-29 01:47 | NUR ---
ED Nurse Note: PT HYPOTENSIVE. BP 76/61. ERMD AT BEDSIDE FOR CENTRAL LINE PLACEMENT.
--- NOTE | 2018-10-29 02:20 | NUR ---
TRANSFER TO FLOOR: Patient transferred to ICU 246E as ordered, per MD MAU. Report given to RADHA. BELONGINGS LIST COMPLETED WITH RECEIVING RN.
--- NOTE | 2018-10-29 02:30 | NUR ---
NURSE NOTES: Received pt from ER, report given by CANDI Ingram. Pt was transferred to ICU for ER for hypotensive, and septic shock. Pt's currently on Levophed at 10mcg/min, via newly inserted Right femoral TLC. Pt's non verbal, asleep, in no acute distress, able to bed aroused by shaking. VS stable at this time. BP 86/63, O2 sat 99% on RA. Afebrile. Noted extremities contracted, paraplegic. Noted GT LUQ intact, noted broken blister at the GT site, cleansed and covered with optifoam. No pressure ulcers noted. HOB kept elevated, bed in low and locked position. Call light within reach. Will continue to monitor.
--- NOTE | 2018-10-29 03:30 | NUR ---
NURSE NOTES: Dr Bear was paged for admission orders. Waiting for him to call back. Pt's stable condition. Current Levophed at 10mcg. Will continue to monitor.
--- NOTE | 2018-10-29 04:30 | NUR ---
NURSE NOTES: Dr Bear called back for orders, also to call DR Bryant as well for consult. Dr Bryant was paged. Will f/up
[2018-10-29] MEDS ORDERED: D5NS 1,000 ML IV SCH (05:00)
--- NOTE | 2018-10-29 06:00 | NUR ---
NURSE NOTES: Pt's resting in bed, asleep, in no acute distress. VS stable. Will continue to monitor.
[2018-10-29 06:48] LABS: HEMATOCRIT 38.6 % (42.0-52.0); HEMOGLOBIN 12.4 G/DL (14.2-18.0); MEAN CORPUSCULAR VOLUME 91 FL (80-99); PLATELET COUNT 192 K/UL (150-450); RED BLOOD COUNT 4.26 M/UL (4.70-6.10); RED CELL DISTRIBUTION WIDTH 14.6 % (11.6-14.8); WHITE BLOOD COUNT 18.9 K/UL (4.8-10.8)
--- NOTE | 2018-10-29 07:10 | NUR ---
NURSE NOTES: Received pt from CANDI Alcaraz. patient is asleep, able to arouse to voice and touch. A/Ox1; able to answer yes or no to simple questions. Denies pain this time. RA, oxygen saturation is 100%. Patient has a PEG, clamped and NPO maintained as ordered. Patient has a suprapubic catheter. Urine leaking noted from site, changed split gauze dressing and applied towels and pads. Open blister noted on site as well. Patient is on levophed @10mcg/kg/hr via right femoral TLC. NS@100cc/hr running. RW 22G TKO, asymptomatic. Seizure precautions in place. Sxn and o2 at bedside and siderails are padded. Bed locked, alarmed and in lowest position. Will continue plan of care.
[2018-10-29] MEDS ORDERED: Miralax 17gm pkt ORAL PRN (07:15)
[2018-10-29] MEDS ORDERED: Albuterol/Ipratropium 3ml neb HHN PRN (07:15)
[2018-10-29 07:28] LABS: ALANINE AMINOTRANSFERASE 12 U/L (12-78); ALBUMIN 2.3 G/DL (3.4-5.0); ALBUMIN/GLOBULIN RATIO 0.4 (1.0-2.7); ALKALINE PHOSPHATASE 67 U/L (46-116); ANION GAP 6 mmol/L (5-15); ASPARTATE AMINO TRANSFERASE 14 U/L (15-37); BILIRUBIN,TOTAL 0.5 MG/DL (0.2-1.0); BLOOD UREA NITROGEN 38 mg/dL (7-18); CALCIUM 8.1 MG/DL (8.5-10.1); CARBON DIOXIDE 27 MMOL/L (21-32); CHLORIDE 113 MMOL/L (98-107); CREATININE 1.6 MG/DL (0.55-1.30); POTASSIUM 3.7 MMOL/L (3.5-5.1); SODIUM 146 MMOL/L (136-145)
[2018-10-29] MEDS ORDERED: Amikacin Rx to dose MISC PRN (07:45)
[2018-10-29] MEDS ORDERED: Vancomycin 1.5gm Premix IVPB SCH (08:00)
[2018-10-29] MEDS ORDERED: Pantoprazole Inj IVP SCH (09:00)
[2018-10-29] MEDS: Heparin 5000 units/ml inj SUBQ SCH ×2 (09:01→21:15)
--- NOTE | 2018-10-29 09:56 | Consultation ---
History of Present Illness General Date patient seen: Oct 29, 2018 Chief Complaint: Altered Mental Status Present Illness HPI 58-year-old male with a prior history of stroke, suprapubic catheter, DVT, hypertensive heart disease, who presented with complaints of fever. He was hypotensive in ER and was started on levophed drip. The patient has been cultured and started on antibiotics and is now admitted to ICU. Allergies: Coded Allergies: CIPROFLOXACIN (Verified Allergy, Unknown, 08/23/15) Medication History Scheduled Bisacodyl (Dulcolax), 10 MG RC PRN, (Reported) Carvedilol (Coreg), 6.25 MG GT EVERY 12 HOURS Cranberry Fruit Concentrate (Cranberry), 450 MG GT BID, (Reported) Docusate Sodium* (Colace*), 100 MG GT DAILY, (Reported) Famotidine (Pepcid), 20 MG GT DAILY, (Reported) Famotidine (Famotidine), 20 MG GT BID Multivitamin With Minerals (Multivitamins With Minerals*), 5 ML GT DAILY, ( Reported) Rivaroxaban (Xarelto), 15 MG GT BID, (Reported) Rivaroxaban (Xarelto), 15 MG GT DAILY Senna Aldan Extract (Senna), 17.6 MG GT HS, (Reported) Trimethoprim/Sulfamethoxazole (Bactrim Ds Tablet), 1 TAB ORAL TWICE A DAY Scheduled PRN Acetaminophen (Tylenol), 650 MG GT Q4H PRN for Mild Pain (Pain Scale 1-3), ( Reported) Acetaminophen* (Tylenol Extra Strength*), 2 TAB GT Q4H PRN for Moderate Pain ( Pain Scale 4-6), (Reported) Magnesium Hydroxide* (Milk Of Magnesia*), 30 ML GT QHS PRN for Constipation, ( Reported) Na Phos,M-B/Na Phos,Di-Ba (Fleet Enema), 133 ML RC QOD PRN for Constipation, ( Reported) Patient History Healthcare decision maker Resuscitation status Full Code Advanced Directive on File Past Medical/Surgical History Past Medical/Surgical History: (1) History of DVT (deep vein thrombosis) (2) Encephalopathy chronic (3) Suprapubic catheter dysfunction (4) History of CVA (cerebrovascular accident) (5) Feeding by G-tube (6) COPD (chronic obstructive pulmonary disease) (7) Obstructive hydrocephalus Review of Systems All Other Systems: negative except mentioned in HPI Physical Exam General Appearance: WD/WN, no apparent distress Lines, tubes and drains: peripheral, central line, gtube HEENT: normocephalic, atraumatic, anicteric Neck: non-tender, normal alignment Respiratory/Chest: chest wall non-tender, lungs clear Cardiovascular/Chest: normal peripheral pulses, normal rate Abdomen: normal bowel sounds Genitourinary/Rectal: normal genital exam Extremities: normal range of motion Last 24 Hour Vital Signs Date Time Temp Pulse Resp B/P (MAP) Pulse Ox O2 Delivery O2 Flow Rate FiO2 10/29/18 07:00 103/68 10/29/18 06:00 88/73 10/29/18 05:26 105/69 10/29/18 05:20 99/64 10/29/18 05:00 105/69 10/29/18 04:00 Mechanical Ventilator 10/29/18 04:00 86/63 10/29/18 04:00 97 10/29/18 03:32 Room Air 10/29/18 03:30 80 18 81/61 (68) 97 10/29/18 03:15 71 17 76/62 (67) 97 10/29/18 03:00 99/69 10/29/18 03:00 106 18 90/67 (75) 96 10/29/18 02:45 106 18 90/67 (75) 94 10/29/18 02:30 86/57 10/29/18 02:30 98.0 106 18 86/57 (67) 97 10/29/18 02:20 98.8 123 16 77/54 98 Room Air 10/29/18 02:20 77/54 10/29/18 01:46 98.8 123 16 76/61 98 Room Air 10/29/18 00:57 100.2 135 16 100/51 100 Room Air 10/29/18 00:57 98.8 10/29/18 00:57 150 16 Room Air 10/29/18 00:02 100.2 150 16 100/51 (67) 100 Room Air Intake and Output 10/28/18 10/29/18 18:59 06:59 Intake Total 212.91 ml Output Total 250 ml Balance -37.09 ml Intake IV Total 212.91 ml Output Urine Total 250 ml Laboratory Tests Test 10/29/18 00:15 10/29/18 01:30 10/29/18 05:43 White Blood Count 18.2 K/UL (4.8-10.8) H 18.9 K/UL (4.8-10.8) H Red Blood Count 5.16 M/UL (4.70-6.10) 4.26 M/UL (4.70-6.10) L Hemoglobin 14.8 G/DL (14.2-18.0) 12.4 G/DL (14.2-18.0) L Hematocrit 46.1 % (42.0-52.0) 38.6 % (42.0-52.0) L Mean Corpuscular Volume 89 FL (80-99) 91 FL (80-99) Mean Corpuscular Hemoglobin 28.6 PG (27.0-31.0) 29.1 PG (27.0-31.0) Mean Corpuscular Hemoglobin Concent 32.1 G/DL (32.0-36.0) 32.1 G/DL (32.0-36.0) Red Cell Distribution Width 14.0 % (11.6-14.8) 14.6 % (11.6-14.8) Platelet Count 209 K/UL (150-450) 192 K/UL (150-450) Mean Platelet Volume 8.4 FL (6.5-10.1) 8.6 FL (6.5-10.1) Neutrophils (%) (Auto) % (45.0-75.0) % (45.0-75.0) Lymphocytes (%) (Auto) % (20.0-45.0) % (20.0-45.0) Monocytes (%) (Auto) % (1.0-10.0) % (1.0-10.0) Eosinophils (%) (Auto) % (0.0-3.0) % (0.0-3.0) Basophils (%) (Auto) % (0.0-2.0) % (0.0-2.0) Differential Total Cells Counted 100 100 Neutrophils % (Manual) 89 % (45-75) H 80 % (45-75) H Lymphocytes % (Manual) 7 % (20-45) L 14 % (20-45) L Monocytes % (Manual) 4 % (1-10) 6 % (1-10) Eosinophils % (Manual) 0 % (0-3) 0 % (0-3) Basophils % (Manual) 0 % (0-2) 0 % (0-2) Band Neutrophils 0 % (0-8) 0 % (0-8) Platelet Estimate Adequate Adequate Platelet Morphology Normal Normal Red Blood Cell Morphology Normal Normal Urine Color Yellow Urine Appearance Cloudy Urine pH 9 (4.5-8.0) Urine Specific [place] 1.010 (1.005-1.035) Urine Protein 3+ (NEGATIVE) H Urine Glucose (UA) Negative (NEGATIVE) Urine Ketones Negative (NEGATIVE) Urine Blood 5+ (NEGATIVE) H Urine Nitrite Positive (NEGATIVE) H Urine Bilirubin Negative (NEGATIVE) Urine Urobilinogen Normal MG/DL (0.0-1.0) Urine Leukocyte Esterase 2+ (NEGATIVE) H Urine RBC 30-40 /HPF (0 - 0) H Urine WBC 10-15 /HPF (0 - 0) H Urine Squamous Epithelial Cells None /LPF (NONE/OCC) Urine Triple Phosphate Crystals Many /LPF (NONE) H Urine Bacteria Many /HPF (NONE) H Sodium Level 143 MMOL/L (136-145) 146 MMOL/L (136-145) H Potassium Level 4.2 MMOL/L (3.5-5.1) 3.7 MMOL/L (3.5-5.1) Chloride Level 106 MMOL/L (98-107) 113 MMOL/L (98-107) H Carbon Dioxide Level 27 MMOL/L (21-32) 27 MMOL/L (21-32) Anion Gap 10 mmol/L (5-15) 6 mmol/L (5-15) Blood Urea Nitrogen 41 mg/dL (7-18) H 38 mg/dL (7-18) H Creatinine 1.9 MG/DL (0.55-1.30) H 1.6 MG/DL (0.55-1.30) H Estimat Glomerular Filtration Rate 36.3 mL/min (>60) 44.3 mL/min (>60) Glucose Level 180 MG/DL (74-106) H 187 MG/DL (74-106) H Lactic Acid Level 2.40 mmol/L (0.4-2.0) H 1.60 mmol/L (0.66-2.22) Calcium Level 9.5 MG/DL (8.5-10.1) 8.1 MG/DL (8.5-10.1) L Total Bilirubin 0.7 MG/DL (0.2-1.0) 0.5 MG/DL (0.2-1.0) Aspartate Amino Transf (AST/SGOT) 15 U/L (15-37) 14 U/L (15-37) L Alanine Aminotransferase (ALT/SGPT) 14 U/L (12-78) 12 U/L (12-78) Alkaline Phosphatase 102 U/L (46-116) 67 U/L (46-116) Total Creatine Kinase 44 U/L (26-308) Creatine Kinase MB < 0.5 NG/ML (0.0-3.6) Creatine Kinase MB Relative Index 1.1 Troponin I 0.000 ng/mL (0.000-0.056) Total Protein 9.7 G/DL (6.4-8.2) H 7.9 G/DL (6.4-8.2) Albumin 2.9 G/DL (3.4-5.0) L 2.3 G/DL (3.4-5.0) L Globulin 6.8 g/dL 5.6 g/dL Albumin/Globulin Ratio 0.4 (1.0-2.7) L 0.4 (1.0-2.7) L Height (Feet): 5 Height (Inches): 8.00 Weight (Pounds): 215 Medications Current Medications Medications (Trade) Dose Ordered Sig/Fab Route PRN Reason Start Time Stop Time Status Last Admin Dose Admin Acetaminophen (Tylenol) 650 mg Q4H PRN ORAL fever (temp>100.5 F) 10/29/18 07:15 11/28/18 07:14 Albuterol/ Ipratropium (Albuterol/ Ipratropium) 3 ml Q4H PRN HHN Shortness of Breath 10/29/18 07:15 11/03/18 07:14 Amikacin Protocol (Amikacin pharmacy to dose) 1 ea DAILY PRN MISC PER RX PROTOCOL 10/29/18 07:45 11/28/18 07:44 Amikacin Sulfate 1200 mg/Sodium Chloride 279.8 ml @ 559.6 mls/ hr Q36H IV 10/29/18 12:00 11/05/18 11:59 Ertapenem 1 gm/ Sodium Chloride 55 ml @ 110 mls/hr Q24H IV 10/29/18 10:00 11/03/18 09:59 Heparin Sodium (Porcine) (Heparin 5000 units/ml) 5,000 units EVERY 12 HOURS SUBQ 10/29/18 09:00 11/28/18 08:59 10/29/18 09:01 Morphine Sulfate (Morphine Sulfate) 2 mg Q4H PRN IVP Severe Pain (Pain Scale 7-10) 10/29/18 07:15 11/05/18 07:14 Norepinephrine Bitartrate 4 mg/ Dextrose 250 ml @ 0 mls/hr Q24H IV 10/29/18 04:45 11/28/18 04:44 10/29/18 05:26 Ondansetron HCl (Zofran) 4 mg Q6H PRN IVP Nausea & Vomiting 10/29/18 07:15 11/28/18 07:14 Pantoprazole (Protonix) 40 mg DAILY IVP 10/29/18 09:00 11/28/18 08:59 10/29/18 08:59 Polyethylene Glycol (Miralax) 17 gm DAILYPRN PRN ORAL Constipation 10/29/18 07:15 11/28/18 07:14 Sodium Chloride 1,000 ml @ 100 mls/hr Q10H IVLG 10/29/18 07:15 11/28/18 07:14 10/29/18 07:15 Vancomycin HCl (Vanco rx to dose) 1 ea DAILY PRN MISC PER RX PROTOCOL 10/29/18 07:45 11/28/18 07:44 Vancomycin HCl/ Dextrose 275 ml @ 137.5 mls/ hr Q24H IVPB 10/29/18 08:00 11/03/18 07:59 10/29/18 09:00 Assessment/Plan Problem List: (1) Septic shock ICD Codes: A41.9 - Sepsis, unspecified organism; R65.21 - Severe sepsis with septic shock SNOMED: 90718208 (2) ATN (acute tubular necrosis) ICD Codes: N17.0 - Acute kidney failure with tubular necrosis SNOMED: 03473264 (3) COPD (chronic obstructive pulmonary disease) ICD Codes: J44.9 - Chronic obstructive pulmonary disease, unspecified SNOMED: 50175243 (4) Encephalopathy chronic ICD Codes: G93.49 - Other encephalopathy SNOMED: 68827820 (5) Obstructive hydrocephalus ICD Codes: G91.1 - Obstructive hydrocephalus SNOMED: 545114078 (6) History of DVT (deep vein thrombosis) ICD Codes: Z86.718 - Personal history of other venous thrombosis and embolism SNOMED: 148703275 (7) Suprapubic catheter ICD Codes: Z93.59 - Other cystostomy status SNOMED: 215368342, 824141949 (8) Aphasia ICD Codes: R47.01 - Aphasia SNOMED: 49545642 (9) Feeding by G-tube ICD Codes: Z93.1 - Gastrostomy status SNOMED: 920093409, 609974865 (10) History of CVA (cerebrovascular accident) ICD Codes: Z86.73 - Personal history of transient ischemic attack (TIA), and cerebral infarction without residual deficits SNOMED: 121642701 Assessment/Plan: neri culture iv fluids titrate Levophed to mean BP of 60 check electrolytes sliding scale suprapubic catheter care dvt prophylaxis. Rigoberto Bryant MD Oct 29, 2018 09:56
--- NOTE | 2018-10-29 09:57 | Diagnostic Imaging Report ---
Indication: Shortness of breath Technique: One view of the chest Comparison: For 2018 Findings: Inspiration is suboptimal. Atelectatic changes are seen in the right perihilar region. No acute infiltrates. The heart size is normal. The pleural spaces are clear. Impression: Low lung volumes with right perihilar atelectatic changes No definite acute process
[2018-10-29] MEDS ORDERED: Ertapenem 1 GM in NS 55 ML IV SCH (10:00)
--- NOTE | 2018-10-29 10:01 | NUR ---
NURSE NOTES: Right femoral TLC dressing changed. IV ABX running well. patient more awake, titrated Levophed to meet SBP >90 and MAP >65.
[2018-10-29 10:34] LABS: CREATINE KINASE 53 U/L (26-308)
--- NOTE | 2018-10-29 11:01 | Cardiac Electrophysiology PN ---
Subjective Subjective [id number] Objective Last 24 Hour Vital Signs Date Time Temp Pulse Resp B/P (MAP) Pulse Ox O2 Delivery O2 Flow Rate FiO2 10/29/18 08:00 Room Air 10/29/18 07:00 103/68 10/29/18 06:00 88/73 10/29/18 05:26 105/69 10/29/18 05:20 99/64 10/29/18 05:00 105/69 10/29/18 04:00 Mechanical Ventilator 10/29/18 04:00 86/63 10/29/18 04:00 97 10/29/18 03:32 Room Air 10/29/18 03:30 80 18 81/61 (68) 97 10/29/18 03:15 71 17 76/62 (67) 97 10/29/18 03:00 99/69 10/29/18 03:00 106 18 90/67 (75) 96 10/29/18 02:45 106 18 90/67 (75) 94 10/29/18 02:30 86/57 10/29/18 02:30 98.0 106 18 86/57 (67) 97 10/29/18 02:20 98.8 123 16 77/54 98 Room Air 10/29/18 02:20 77/54 10/29/18 01:46 98.8 123 16 76/61 98 Room Air 10/29/18 00:57 100.2 135 16 100/51 100 Room Air 10/29/18 00:57 98.8 10/29/18 00:57 150 16 Room Air 10/29/18 00:02 100.2 150 16 100/51 (67) 100 Room Air Intake and Output 10/28/18 10/29/18 19:00 07:00 Intake Total 350.41 ml Output Total 350 ml Balance 0.41 ml Intake IV Total 350.41 ml Output Urine Total 350 ml Laboratory Tests Test 10/29/18 00:15 10/29/18 01:30 10/29/18 05:43 10/29/18 05:53 White Blood Count 18.2 K/UL (4.8-10.8) H 18.9 K/UL (4.8-10.8) H Red Blood Count 5.16 M/UL (4.70-6.10) 4.26 M/UL (4.70-6.10) L Hemoglobin 14.8 G/DL (14.2-18.0) 12.4 G/DL (14.2-18.0) L Hematocrit 46.1 % (42.0-52.0) 38.6 % (42.0-52.0) L Mean Corpuscular Volume 89 FL (80-99) 91 FL (80-99) Mean Corpuscular Hemoglobin 28.6 PG (27.0-31.0) 29.1 PG (27.0-31.0) Mean Corpuscular Hemoglobin Concent 32.1 G/DL (32.0-36.0) 32.1 G/DL (32.0-36.0) Red Cell Distribution Width 14.0 % (11.6-14.8) 14.6 % (11.6-14.8) Platelet Count 209 K/UL (150-450) 192 K/UL (150-450) Mean Platelet Volume 8.4 FL (6.5-10.1) 8.6 FL (6.5-10.1) Neutrophils (%) (Auto) % (45.0-75.0) % (45.0-75.0) Lymphocytes (%) (Auto) % (20.0-45.0) % (20.0-45.0) Monocytes (%) (Auto) % (1.0-10.0) % (1.0-10.0) Eosinophils (%) (Auto) % (0.0-3.0) % (0.0-3.0) Basophils (%) (Auto) % (0.0-2.0) % (0.0-2.0) Differential Total Cells Counted 100 100 Neutrophils % (Manual) 89 % (45-75) H 80 % (45-75) H Lymphocytes % (Manual) 7 % (20-45) L 14 % (20-45) L Monocytes % (Manual) 4 % (1-10) 6 % (1-10) Eosinophils % (Manual) 0 % (0-3) 0 % (0-3) Basophils % (Manual) 0 % (0-2) 0 % (0-2) Band Neutrophils 0 % (0-8) 0 % (0-8) Platelet Estimate Adequate Adequate Platelet Morphology Normal Normal Red Blood Cell Morphology Normal Normal Urine Color Yellow Urine Appearance Cloudy Urine pH 9 (4.5-8.0) Urine Specific [place] 1.010 (1.005-1.035) Urine Protein 3+ (NEGATIVE) H Urine Glucose (UA) Negative (NEGATIVE) Urine Ketones Negative (NEGATIVE) Urine Blood 5+ (NEGATIVE) H Urine Nitrite Positive (NEGATIVE) H Urine Bilirubin Negative (NEGATIVE) Urine Urobilinogen Normal MG/DL (0.0-1.0) Urine Leukocyte Esterase 2+ (NEGATIVE) H Urine RBC 30-40 /HPF (0 - 0) H Urine WBC 10-15 /HPF (0 - 0) H Urine Squamous Epithelial Cells None /LPF (NONE/OCC) Urine Triple Phosphate Crystals Many /LPF (NONE) H Urine Bacteria Many /HPF (NONE) H Sodium Level 143 MMOL/L (136-145) 146 MMOL/L (136-145) H Potassium Level 4.2 MMOL/L (3.5-5.1) 3.7 MMOL/L (3.5-5.1) Chloride Level 106 MMOL/L (98-107) 113 MMOL/L (98-107) H Carbon Dioxide Level 27 MMOL/L (21-32) 27 MMOL/L (21-32) Anion Gap 10 mmol/L (5-15) 6 mmol/L (5-15) Blood Urea Nitrogen 41 mg/dL (7-18) H 38 mg/dL (7-18) H Creatinine 1.9 MG/DL (0.55-1.30) H 1.6 MG/DL (0.55-1.30) H Estimat Glomerular Filtration Rate 36.3 mL/min (>60) 44.3 mL/min (>60) Glucose Level 180 MG/DL (74-106) H 187 MG/DL (74-106) H Lactic Acid Level 2.40 mmol/L (0.4-2.0) H 1.60 mmol/L (0.66-2.22) Calcium Level 9.5 MG/DL (8.5-10.1) 8.1 MG/DL (8.5-10.1) L Total Bilirubin 0.7 MG/DL (0.2-1.0) 0.5 MG/DL (0.2-1.0) Aspartate Amino Transf (AST/SGOT) 15 U/L (15-37) 14 U/L (15-37) L Alanine Aminotransferase (ALT/SGPT) 14 U/L (12-78) 12 U/L (12-78) Alkaline Phosphatase 102 U/L (46-116) 67 U/L (46-116) Total Creatine Kinase 44 U/L (26-308) 53 U/L (26-308) Creatine Kinase MB < 0.5 NG/ML (0.0-3.6) Creatine Kinase MB Relative Index 1.1 Troponin I 0.000 ng/mL (0.000-0.056) Total Protein 9.7 G/DL (6.4-8.2) H 7.9 G/DL (6.4-8.2) Albumin 2.9 G/DL (3.4-5.0) L 2.3 G/DL (3.4-5.0) L Globulin 6.8 g/dL 5.6 g/dL Albumin/Globulin Ratio 0.4 (1.0-2.7) L 0.4 (1.0-2.7) L Uric Acid 6.9 MG/DL (2.6-7.2) Darnell Segundo MD Oct 29, 2018 11:01
--- NOTE | 2018-10-29 11:08 | Consultation ---
History of Present Illness General Date patient seen: Oct 29, 2018 Chief Complaint: Altered Mental Status Present Illness HPI 58 y/o M with hx of CVA/TIA, Dm2, CKD, suprapubic catheter, DVT, hypertensive heart disease, [place] resident presented to ED on 10/29 with fever. Upon admission, patient was hypotensive, started on levophed and admitted to ICU. Allergies: Coded Allergies: CIPROFLOXACIN (Verified Allergy, Unknown, 08/23/15) Medication History Scheduled Bisacodyl (Dulcolax), 10 MG RC PRN, (Reported) Carvedilol (Coreg), 6.25 MG GT EVERY 12 HOURS Cranberry Fruit Concentrate (Cranberry), 450 MG GT BID, (Reported) Docusate Sodium* (Colace*), 100 MG GT DAILY, (Reported) Famotidine (Pepcid), 20 MG GT DAILY, (Reported) Famotidine (Famotidine), 20 MG GT BID Multivitamin With Minerals (Multivitamins With Minerals*), 5 ML GT DAILY, ( Reported) Rivaroxaban (Xarelto), 15 MG GT BID, (Reported) Rivaroxaban (Xarelto), 15 MG GT DAILY Senna [place] Extract (Senna), 17.6 MG GT HS, (Reported) Trimethoprim/Sulfamethoxazole (Bactrim Ds Tablet), 1 TAB ORAL TWICE A DAY Scheduled PRN Acetaminophen (Tylenol), 650 MG GT Q4H PRN for Mild Pain (Pain Scale 1-3), ( Reported) Acetaminophen* (Tylenol Extra Strength*), 2 TAB GT Q4H PRN for Moderate Pain ( Pain Scale 4-6), (Reported) Magnesium Hydroxide* (Milk Of Magnesia*), 30 ML GT QHS PRN for Constipation, ( Reported) Na Phos,M-B/Na Phos,Di-Ba (Fleet Enema), 133 ML RC QOD PRN for Constipation, ( Reported) Patient History Healthcare decision maker Resuscitation status Full Code Advanced Directive on File Patient History Narrative Pmhx: as above Shx: reviewed Fhx: non contributory Review of Systems All Other Systems: negative except mentioned in HPI Physical Exam Physical Exam Narrative General Appearance: WD/WN, no apparent distress Lines, tubes and drains: peripheral, central line, gtube HEENT: normocephalic, atraumatic, anicteric Neck: non-tender, normal alignment Respiratory/Chest: chest wall non-tender, lungs clear Cardiovascular/Chest: normal peripheral pulses, normal rate Abdomen: normal bowel sounds Extremities: normal range of motion Last 24 Hour Vital Signs Date Time Temp Pulse Resp B/P (MAP) Pulse Ox O2 Delivery O2 Flow Rate FiO2 10/29/18 08:00 Room Air 10/29/18 07:00 103/68 10/29/18 06:00 88/73 10/29/18 05:26 105/69 10/29/18 05:20 99/64 10/29/18 05:00 105/69 10/29/18 04:00 Mechanical Ventilator 10/29/18 04:00 86/63 10/29/18 04:00 97 10/29/18 03:32 Room Air 10/29/18 03:30 80 18 81/61 (68) 97 10/29/18 03:15 71 17 76/62 (67) 97 10/29/18 03:00 99/69 10/29/18 03:00 106 18 90/67 (75) 96 10/29/18 02:45 106 18 90/67 (75) 94 10/29/18 02:30 86/57 10/29/18 02:30 98.0 106 18 86/57 (67) 97 10/29/18 02:20 98.8 123 16 77/54 98 Room Air 10/29/18 02:20 77/54 10/29/18 01:46 98.8 123 16 76/61 98 Room Air 10/29/18 00:57 100.2 135 16 100/51 100 Room Air 10/29/18 00:57 98.8 10/29/18 00:57 150 16 Room Air 10/29/18 00:02 100.2 150 16 100/51 (67) 100 Room Air Intake and Output 10/28/18 10/29/18 19:00 07:00 Intake Total 350.41 ml Output Total 350 ml Balance 0.41 ml Intake IV Total 350.41 ml Output Urine Total 350 ml Laboratory Tests Test 10/29/18 00:15 10/29/18 01:30 10/29/18 05:43 10/29/18 05:53 White Blood Count 18.2 K/UL (4.8-10.8) H 18.9 K/UL (4.8-10.8) H Red Blood Count 5.16 M/UL (4.70-6.10) 4.26 M/UL (4.70-6.10) L Hemoglobin 14.8 G/DL (14.2-18.0) 12.4 G/DL (14.2-18.0) L Hematocrit 46.1 % (42.0-52.0) 38.6 % (42.0-52.0) L Mean Corpuscular Volume 89 FL (80-99) 91 FL (80-99) Mean Corpuscular Hemoglobin 28.6 PG (27.0-31.0) 29.1 PG (27.0-31.0) Mean Corpuscular Hemoglobin Concent 32.1 G/DL (32.0-36.0) 32.1 G/DL (32.0-36.0) Red Cell Distribution Width 14.0 % (11.6-14.8) 14.6 % (11.6-14.8) Platelet Count 209 K/UL (150-450) 192 K/UL (150-450) Mean Platelet Volume 8.4 FL (6.5-10.1) 8.6 FL (6.5-10.1) Neutrophils (%) (Auto) % (45.0-75.0) % (45.0-75.0) Lymphocytes (%) (Auto) % (20.0-45.0) % (20.0-45.0) Monocytes (%) (Auto) % (1.0-10.0) % (1.0-10.0) Eosinophils (%) (Auto) % (0.0-3.0) % (0.0-3.0) Basophils (%) (Auto) % (0.0-2.0) % (0.0-2.0) Differential Total Cells Counted 100 100 Neutrophils % (Manual) 89 % (45-75) H 80 % (45-75) H Lymphocytes % (Manual) 7 % (20-45) L 14 % (20-45) L Monocytes % (Manual) 4 % (1-10) 6 % (1-10) Eosinophils % (Manual) 0 % (0-3) 0 % (0-3) Basophils % (Manual) 0 % (0-2) 0 % (0-2) Band Neutrophils 0 % (0-8) 0 % (0-8) Platelet Estimate Adequate Adequate Platelet Morphology Normal Normal Red Blood Cell Morphology Normal Normal Urine Color Yellow Urine Appearance Cloudy Urine pH 9 (4.5-8.0) Urine Specific [place] 1.010 (1.005-1.035) Urine Protein 3+ (NEGATIVE) H Urine Glucose (UA) Negative (NEGATIVE) Urine Ketones Negative (NEGATIVE) Urine Blood 5+ (NEGATIVE) H Urine Nitrite Positive (NEGATIVE) H Urine Bilirubin Negative (NEGATIVE) Urine Urobilinogen Normal MG/DL (0.0-1.0) Urine Leukocyte Esterase 2+ (NEGATIVE) H Urine RBC 30-40 /HPF (0 - 0) H Urine WBC 10-15 /HPF (0 - 0) H Urine Squamous Epithelial Cells None /LPF (NONE/OCC) Urine Triple Phosphate Crystals Many /LPF (NONE) H Urine Bacteria Many /HPF (NONE) H Sodium Level 143 MMOL/L (136-145) 146 MMOL/L (136-145) H Potassium Level 4.2 MMOL/L (3.5-5.1) 3.7 MMOL/L (3.5-5.1) Chloride Level 106 MMOL/L (98-107) 113 MMOL/L (98-107) H Carbon Dioxide Level 27 MMOL/L (21-32) 27 MMOL/L (21-32) Anion Gap 10 mmol/L (5-15) 6 mmol/L (5-15) Blood Urea Nitrogen 41 mg/dL (7-18) H 38 mg/dL (7-18) H Creatinine 1.9 MG/DL (0.55-1.30) H 1.6 MG/DL (0.55-1.30) H Estimat Glomerular Filtration Rate 36.3 mL/min (>60) 44.3 mL/min (>60) Glucose Level 180 MG/DL (74-106) H 187 MG/DL (74-106) H Lactic Acid Level 2.40 mmol/L (0.4-2.0) H 1.60 mmol/L (0.66-2.22) Calcium Level 9.5 MG/DL (8.5-10.1) 8.1 MG/DL (8.5-10.1) L Total Bilirubin 0.7 MG/DL (0.2-1.0) 0.5 MG/DL (0.2-1.0) Aspartate Amino Transf (AST/SGOT) 15 U/L (15-37) 14 U/L (15-37) L Alanine Aminotransferase (ALT/SGPT) 14 U/L (12-78) 12 U/L (12-78) Alkaline Phosphatase 102 U/L (46-116) 67 U/L (46-116) Total Creatine Kinase 44 U/L (26-308) 53 U/L (26-308) Creatine Kinase MB < 0.5 NG/ML (0.0-3.6) Creatine Kinase MB Relative Index 1.1 Troponin I 0.000 ng/mL (0.000-0.056) Total Protein 9.7 G/DL (6.4-8.2) H 7.9 G/DL (6.4-8.2) Albumin 2.9 G/DL (3.4-5.0) L 2.3 G/DL (3.4-5.0) L Globulin 6.8 g/dL 5.6 g/dL Albumin/Globulin Ratio 0.4 (1.0-2.7) L 0.4 (1.0-2.7) L Uric Acid 6.9 MG/DL (2.6-7.2) Height (Feet): 5 Height (Inches): 8.00 Weight (Pounds): 215 Medications Current Medications Medications (Trade) Dose Ordered Sig/Fab Route PRN Reason Start Time Stop Time Status Last Admin Dose Admin Acetaminophen (Tylenol) 650 mg Q4H PRN ORAL fever (temp>100.5 F) 10/29/18 07:15 11/28/18 07:14 Albuterol/ Ipratropium (Albuterol/ Ipratropium) 3 ml Q4H PRN HHN Shortness of Breath 10/29/18 07:15 11/03/18 07:14 Amikacin Protocol (Amikacin pharmacy to dose) 1 ea DAILY PRN MISC PER RX PROTOCOL 10/29/18 07:45 11/28/18 07:44 Amikacin Sulfate 1200 mg/Sodium Chloride 279.8 ml @ 559.6 mls/ hr Q36H IV 10/29/18 12:00 11/05/18 11:59 Ertapenem 1 gm/ Sodium Chloride 55 ml @ 110 mls/hr Q24H IV 10/29/18 10:00 11/03/18 09:59 Heparin Sodium (Porcine) (Heparin 5000 units/ml) 5,000 units EVERY 12 HOURS SUBQ 10/29/18 09:00 11/28/18 08:59 10/29/18 09:01 Morphine Sulfate (Morphine Sulfate) 2 mg Q4H PRN IVP Severe Pain (Pain Scale 7-10) 10/29/18 07:15 11/05/18 07:14 Norepinephrine Bitartrate 4 mg/ Dextrose 250 ml @ 0 mls/hr Q24H IV 10/29/18 04:45 11/28/18 04:44 10/29/18 05:26 Ondansetron HCl (Zofran) 4 mg Q6H PRN IVP Nausea & Vomiting 10/29/18 07:15 11/28/18 07:14 Pantoprazole (Protonix) 40 mg DAILY IVP 10/29/18 09:00 11/28/18 08:59 10/29/18 08:59 Polyethylene Glycol (Miralax) 17 gm DAILYPRN PRN ORAL Constipation 10/29/18 07:15 11/28/18 07:14 Sodium Chloride 1,000 ml @ 150 mls/hr Q6H40M IV 10/29/18 10:15 11/28/18 10:14 Vancomycin HCl (Vanco rx to dose) 1 ea DAILY PRN MISC PER RX PROTOCOL 10/29/18 07:45 11/28/18 07:44 Vancomycin HCl/ Dextrose 275 ml @ 137.5 mls/ hr Q24H IVPB 10/29/18 08:00 11/03/18 07:59 10/29/18 09:00 Assessment/Plan Assessment/Plan: Abx: IV Amikacin 10/29- IV Vancomycin 10/29- Ertapenem 10/29- Assessment: Septic shock- likely 2ryt o UTI- r.o bacteremia -u/a wbc 19-15, nit +, leuk +2; ucx p -CXR: Low lung volumes with right perihilar atelectatic changes. No definite acute process Low grade fever Leukocytosis GILDARDO, improving hx of UTI -07/2018 ucx E. fecalis (neri S), P. mirabilis -03/2019 ucx PsA CVA/TIA Dm2 CKD suprapubic catheter DVT hypertensive heart disease [facility] resident Plan: -Continue empiric IV Vancomycin #1 pending UCx given hx of E. fecalis -Continue empiric Amikacin #1 and switch Ertapenem to Meropenem pending cultures -f/u cx -Monitor CBC/CMP, temperatures -ICU care -aspiration precautions Thank you for this consultation. Will continue to follow along with you. Discussed with CANDI. Dorothea Macario M.D. Oct 29, 2018 11:08
--- NOTE | 2018-10-29 11:21 | NUR ---
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 Patient will return to this facility upon discharge. Patient's sister Rosalva Canela [phone] is the primary decision maker (primary langue is Kazakh but can communicate in Georgian) and the secondary contact is her dgt Diann Crain [phone] who is a physician. Sister requested for JOYCELYN to contact her dgt Diann to address code status. JOYCELYN spoke with Diann who states patient is a full code with full treatment. Will continue to monitor and assist as needed.
--- NOTE | 2018-10-29 11:57 | NUR ---
NURSE NOTES: Vanco IV ABX infusion completed. Patchy redness, blanchable, resembling hives noted on face and neck. Notified Dr. Bryant. Received orders for benedryl 25mg IVP 6hrs PRN and solumedrol 60mg IVP 6hrs PRN. Read back given and verified.
[2018-10-29 11:59] LABS: APPEARANCE,URINE SLIGHTLY CLOUDY; BILIRUBIN, URINE NEGATIVE (NEGATIVE); COLOR,URINE PALE YELLOW; GLUCOSE, URINE (UA) NEGATIVE (NEGATIVE); KETONES,URINE NEGATIVE (NEGATIVE); LEUKOCYTE ESTERASE ,URINE 3+ (NEGATIVE); NITRITE,URINE POSITIVE (NEGATIVE); PH,URINE 6 (4.5-8.0); PROTEIN,URINE 2+ (NEGATIVE); UROBILINOGEN,URINE NORMAL MG/DL (0.0-1.0)
[2018-10-29] MEDS ORDERED: DiphenhydrAMINE 50mg/ml Inj IVP PRN (12:00)
[2018-10-29] MEDS ORDERED: Amikacin 1,200 MG in NS 275 ML IV SCH (12:00)
[2018-10-29] MEDS ORDERED: Solu-MEDROL 125mg Inj IVP PRN ×2 (12:00→16:00)
[2018-10-29] MEDS: DiphenhydrAMINE 50mg/ml Inj IVP PRN (13:31)
--- NOTE | 2018-10-29 13:42 | Cardiology Report ---
APPROVED REPORT EXAM: Two-dimensional and M-mode echocardiogram with Doppler and color Doppler. INDICATION LV FUNCTION M-Mode DIMENSIONS IVSd1.0 (0.7-1.1cm)Left Atrium (MM)2.8 (1.6-4.0cm) LVDd4.9 (3.5-5.6cm)Aortic Root3.6 (2.0-3.7cm) PWd0.9 (0.7-1.1cm)Aortic Cusp Exc.2.0 (1.5-2.0cm) IVSs1.1 cm LVDs3.2 (2.5-4.0cm) PWs1.4 cm Normal left ventricular chamber size, systolic function and wall motion . Left ventricular ejection fraction estimated to be 60-65%. No evidence of left ventricular hypertrophy . Anterior Echo-free space, may be due to pericardial fat or effusion. All other cardiac chamber sizes are within normal limits. Focal aortic valve sclerosis with adequate cusp excursion. Thickened mitral valve leaflets with normal excursion. Mitral annulus and aortic root calcification. Normal pulmonic valve structure. Normal tricuspid valve structure. IVC at normal size with physiologic collapse. A color flow and spectral Doppler study was performed and revealed: No aortic insufficiency . Trace mitral regurgitation. Mitral inflow indicates normal left ventricular diastolic function. Mild tricuspid regurgitation. Tricuspid systolic velocities suggests peak right ventricular systolic pressure of 42mmHg,consistent with mild pulmonary HTN. Trace pulmonic regurgitation present .
--- NOTE | 2018-10-29 13:56 | Cardiology Report ---
APPROVED REPORT EKG Measurement Heart [id number] [id number] Sinus tachycardia Right ventricular hypertrophy Possible Lateral infarct, age undetermined Inferior infarct, age undetermined Abnormal ECG
--- NOTE | 2018-10-29 14:28 | Consultation ---
Consult Note Consult Note This is a 58-year-old male senior care patient. He presents with chief complaint of fever tachycardia and sepsis. He is being treated for UTI with Cipro. He had a fever senior care. I was also very tachycardic. Unable to get any history from this patient because of his condition. Coded Allergies: CIPROFLOXACIN (Verified Allergy, Unknown, 08/23/15) Hx Cardiac Problems: Yes - tachycardia, DVT Hx COPD: Yes Hx Diabetes: Yes - type 2 Hx Gastrointestinal Problems: Yes - Dysphagia Hx Neurological Problems: Yes - Encephalopathy Hx Cerebrovascular Accident: Yes Hx Transient Ischemic Attacks: Yes Hx Seizures: Yes - CRF Hx Paralysis: Yes - paraplegic Hx Speech Problem: Yes Hx Aphasia: Yes examined data reviewed discussed with RN . Assessment/Plan Acute renal failure- Septic shock on presentation CVA Suprapubic cath / ? Neurogenic bladder HTN DVT UTI Hydrate avoid nephrotoxics monitor renal parameters per orders Pranav Grady MD Oct 29, 2018 14:28
--- NOTE | 2018-10-29 14:56 | NUR ---
RD ASSESSMENT & RECOMMENDATIONS SEE CARE ACTIVITY FOR COMPLETE ASSESSMENT DAILY ESTIMATED NEEDS: Needs based on Sepsis/ 77kg abw 25-30 kcals/kg 2118-0410 total kcals 1-2 g protein/kg 77-154 g total protein 25-30 mL/kg 6251-5116 total fluid mLs NUTRITION DIAGNOSIS: 1) Swallowing difficulty related to dysphagia s/p cva as evidenced by pt dependent on PEG for all nutrition and hydration needs. CURRENT TF:NPO ENTERAL NUTRITION RECOMMENDATIONS: Glucerna 1.5 @ 55ml/hr x 24 hrs to provide 1320ml, 1980kcal, 109g prot, 1002ml free water * As medically appropriate, w/ HD stability, initiate TF * Initiate Glucerna 1.5 @ 25ml/hr x 6 hrs, advance 10ml q 4-6 hrs as tolerated to goal. * HOB over 30 degrees/ water flush per MD. WITHOUT HEMODYNAMIC STABILITY: rec trophic feeding of Glucerna 1.5 @ 10-15ml/hr x 24 hrs ADDITIONAL RECOMMENDATIONS: 1) Calibrated bedscale wt for accurate CBW 2) Monitor lytes, replete as needed 3) NISS/ accuchecks for BG control 4) Monitor HD stability: NE held at this time 5) Rec wound eval ( wound photos noted)
--- NOTE | 2018-10-29 15:08 | NUR ---
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 PT IS CURRENTLY BEING TREATED FOR UTI SI: SEPTIC SHOCK, UTI T.100.3 HR 150 RR 16 B/P 77/54 2L NC O2 SAT @ 975 WBC 18.2 BUN 41 CR 1.9 LACTID ACID 2.40 UA+ BLOOD,NITRITE,LEUKOCYTE ESTERASE,RBC,WBC,BACTERIA CXR=LOW LUNG VOLUME WITH RIGHT PERIHILAR ATELECTASIS IS: IV BOLUS NS X 2 LITERS CEFEPIME IV TYLENOL ADMITTED TO ICU @ 0345 ICU STATUS DCP PENDING HOSPITAL STAY
[2018-10-29] MEDS: Meropenem 1 GM in NS 55 ML IVPB SCH (15:18)
--- NOTE | 2018-10-29 15:59 | NUR ---
NURSE NOTES: Notified Dr. Bear of mild allergic reaction to Vanco IVPB, received orders to d/c Vanco and notify Dr. Cabrera for a substitute. Clarified orders with Dr. Grady, received T/O to discontinue pepcid IVP.
--- NOTE | 2018-10-29 16:08 | Diagnostic Imaging Report ---
Indication: Abnormal renal function tests. Abnormal white blood cells. Urinary tract infection, history of chronic kidney disease Technique: Grayscale and duplex images of the kidneys, retroperitoneum, and bladder were obtained. Comparison: No comparison sonograms. Reference made to abdomen pelvis CT 03/11/2017 Findings: Exam somewhat limited by patient body habitus. Right kidney measures 12.6 cm in length. Left kidney measures 11.5 cm in length. Both kidneys demonstrate normal echogenicity. No hydronephrosis. Multiple calcifications are seen in the renal sinuses bilaterally. These are also documented on prior CT. There are also small bilateral renal cysts.. Normal inferior vena cava. Bladder is empty, contains a suprapubic catheter Suprapubic catheter in place. Which is also demonstrated on prior CT. Impression: Hydronephrosis Bilateral nonobstructive intrarenal calculi, also described on prior CT scan Incidental finding bilateral renal cysts.
--- NOTE | 2018-10-29 16:44 | NUR ---
HAND-OFF: Report given to Jazmin Charge nurse.
[2018-10-29] MEDS: Docusate 100mg cap ORAL SCH (17:18)
[2018-10-29] MEDS ORDERED: SENNA8.6 M2 GT (18:21)
[2018-10-29] MEDS ORDERED: PRO-STAT LIQUID30 ML GT (18:21)
--- NOTE | 2018-10-29 18:30 | NUR ---
NURSE NOTES: [id number] mattress put on pt's bed. No acute distress. Will continue to monitor.
--- NOTE | 2018-10-29 19:28 | NUR ---
HAND-OFF: Report given to Yenifer Robin.
--- NOTE | 2018-10-29 19:30 | NUR ---
NURSE NOTES:Received pt awake with good eye contact and tried to follow simple commands, ST on the monitor, bp stable. afebrile, pt been off Levophed drip, bp now been stable. mauintainance ivf 1/2NS at 150 cc/hr, been infusing to RT femoral central line. Site with drsg dry and intact. Suprapubic cath to gravity with moderate amt of micheline yellow urine. Pt NPO at this time. Monitor I and O. Monitor lytes. Pt also has wound abdominal site, cover with optifoam drg dry and intact. Pt on overlay mattress. Turned q 2hrs PRN with good skin care done.Will continue to monitor.
[2018-10-29] MEDS: Morphine Sulfate 2mg/ml Inj(IV/IM USE ONLY) IVP PRN (20:20)
--- NOTE | 2018-10-29 20:21 | NUR ---
NURSE NOTES:Morphine 2mg ivp given due to pain FLACC8. pt was restless ST 125/min. Bp 187/152.
--- NOTE | 2018-10-29 21:30 | NUR ---
NURSE NOTES:Complete bath with partial bed changed done. Oral care done as well.
--- NOTE | 2018-10-29 22:30 | Consultation ---
DATE OF CONSULTATION: 10/29/2018 CARDIOLOGY CONSULTATION CONSULTING PHYSICIAN: Darnell Segundo M.D. REFERRING PHYSICIAN: Jaylen Bear D.O. REASON FOR CONSULTATION: Hypotension and septic shock. HISTORY OF PRESENT ILLNESS: The patient is a 58-year-old gentleman with history of stroke, hypertension, and paraplegia as well as left hemiplegia, suprapubic catheter, and DVT, was brought to the emergency room for fever. The patient was noted to be hypotensive, started on Levophed drip and was pancultured and started on IV antibiotics. The patient was admitted to intensive care unit and Cardiology consultation was requested for further evaluation and management. REVIEW OF SYSTEMS: Negative other than what was mentioned in history of present illness. PAST MEDICAL HISTORY: As mentioned above. FAMILY HISTORY: Noncontributory. SOCIAL HISTORY: He lives in senior living. Does not smoke or drink alcohol. PHYSICAL EXAMINATION: VITAL SIGNS: Show blood pressure 102/68, pulse 106, respirations 18, and temperature 100.2. HEAD AND NECK: Shows no JVD. LUNGS: Coarse rhonchi. CARDIOVASCULAR: Shows tachycardic. S1, S2 with no gallop. ABDOMEN: Soft, status post suprapubic catheter. EXTREMITIES: Bilateral lower extremity . The arm is also contracted. LABORATORY AND DIAGNOSTIC DATA: His EKG showed sinus tachycardia 155 with inferior infarct of undetermined age. Labs show white count 18.9, hemoglobin 12.5, hematocrit 38.6, and platelet count 192. Sodium 142, potassium 3.7, BUN 38, and creatinine 1.6. Glucose 187. Lactic acid 2.4. Troponin is negative. ASSESSMENT AND PLAN: 1. Shock, likely due to septic shock as well as dehydration, as sodium is high and BUN and creatinine is also elevated. The patient with lactic acidosis 2.4. The patient is also on Levophed and IV antibiotics with amikacin and vancomycin as well as IV fluids. We will get an echocardiogram for evaluation of ejection fraction and wall motion abnormality. 2. Inferior wall myocardial infarction based on electrocardiogram. First troponin is negative. Completely rule out myocardial infarction protocol. I would get an echocardiogram for further evaluation. 3. Hypernatremia. 4. Renal failure. 5. CVA with paraplegia. 6. Status post suprapubic catheter. Thank you very much, Dr. Bear, for allowing me to participate in the care of this patient. Please do not hesitate to contact me for any questions regarding my evaluation. Darnell Segundo M.D. DR: HAYLEY JOB#: [id number] CC:
--- NOTE | 2018-10-29 23:00 | History and Physical Report ---
DATE OF ADMISSION: 10/29/2018 CONSULTANTS: 1. Rigoberto Bryant M.D. 2. Peterson Cabrera M.D. 3. Pranav Grady M.D. 4. Darnell Segundo M.D. CHIEF COMPLAINT: Septic shock and renal failure. BRIEF HISTORY: This is a 58-year-old male from [facility], presented with lethargy, low blood pressure, and confusion. The patient was sent to [facility], diagnosed with the above, and admitted to ICU for further care. Currently, calm in bed, confused, and not talking much. PAST MEDICAL HISTORY: Includes obstructive hydrocephalus, COPD, diabetes, aphasia, CVA, GILDARDO, DVT, and ATN. PAST SURGICAL HISTORY: G-tube. MEDICATIONS: Include docusate sodium, methylprednisolone, diphenhydramine, meropenem, amikacin, heparin, albuterol, Zofran, and norepinephrine. ALLERGY: Cipro and vancomycin. SOCIAL HISTORY: Unable to obtain secondary to the patient's condition. REVIEW OF SYSTEMS: Unavailable. PHYSICAL EXAMINATION: GENERAL: Calm in bed, confused, not talking much. VITAL SIGNS: Temperature is 99, pulse 107, respirations 18, and blood pressure 110/77. CARDIOVASCULAR: No murmurs. LUNGS: Poor air exchange. ABDOMEN: Bowel sounds distant. EXTREMITIES: No cyanosis or edema. NEUROLOGIC: The patient is flaccid in bed, not following directions. LABORATORY AND DIAGNOSTIC DATA: White count 18.9, hemoglobin and hematocrit 12 and 38, otherwise CBC is normal. BMP shows sodium 146, chloride 113, BUN and creatinine are 30 and 1.6, and glucose 187. Troponin 0.006. Albumin 2.3. Urinalysis showed 3+ leukocyte esterase. ASSESSMENT: 1. UTI. 2. Sepsis shock. 3. Renal failure. 4. Hydrocephalus. 5. Malnutrition. 6. COPD. 7. Diabetes. 8. Aphasia. 9. CVA. 10. GILDARDO. 11. History of DVT. 12. ATN. PLAN: 1. O2 and pulmonary treatment. 2. Antibiotics per Infectious Disease. 3. Blood pressure and blood sugar control. 4. Dietary followup. Jaylen Bear D.O. DR: CARMEN JOB#: [id number] CC:
--- NOTE | 2018-10-29 23:30 | NUR ---
NURSE NOTES:02 sat >95% on room air. HOB kept elevated. watch for any resp. distress.
[2018-10-29] MEDS ORDERED: Vancomycin 1 GM in D5W 275 ML IV SCH (23:45)
[2018-10-30] VITALS (31 sets, daily range): BP systolic 80–212; BP diastolic 50–138
[2018-10-30] MEDS: Meropenem 1 GM in NS 55 ML IVPB SCH ×2 (00:37→13:32)
--- NOTE | 2018-10-30 01:19 | NUR ---
HAND-OFF: Report given to Venkata CHRISTOPHER.
--- NOTE | 2018-10-30 01:23 | NUR ---
NURSE NOTES: Received report from CANDI Street. Patient awake and responsive to verbal and tactile stimuli. No acute distress/SOB noted. On room air. On NPO. Gtube intact and clean. Suprapubic catheter intact and draining by gravity. Right femoral TLC intact and clean, running with 1/2NS @150cc/hr. Elevated HOB>30 and kept clean, dry and comfortable. Call light placed in easy reach. Will continue plan of care.
--- NOTE | 2018-10-30 03:25 | NUR ---
NURSE NOTES: Collected blood from right femoral TLC for morning labs and sent to the lab.
--- NOTE | 2018-10-30 04:30 | NUR ---
NURSE NOTES: Bed bath given. No distress/SOB noted.
[2018-10-30 04:32] LABS: ALANINE AMINOTRANSFERASE 10 U/L (12-78); ALBUMIN 2.1 G/DL (3.4-5.0); ALBUMIN/GLOBULIN RATIO 0.5 (1.0-2.7); ALKALINE PHOSPHATASE 55 U/L (46-116); ANION GAP 8 mmol/L (5-15); ASPARTATE AMINO TRANSFERASE 14 U/L (15-37); BILIRUBIN,TOTAL 0.5 MG/DL (0.2-1.0); BLOOD UREA NITROGEN 24 mg/dL (7-18); CALCIUM 7.1 MG/DL (8.5-10.1); CARBON DIOXIDE 25 MMOL/L (21-32); CHLORIDE 109 MMOL/L (98-107); CREATININE 1.3 MG/DL (0.55-1.30); POTASSIUM 3.6 MMOL/L (3.5-5.1); SODIUM 142 MMOL/L (136-145)
[2018-10-30 04:38] LABS: CREATINE KINASE 63 U/L (26-308); GAMMA GLUTAMYL TRANSPEPTIDASE 23 U/L (5-85)
[2018-10-30 04:49] LABS: BASOPHILS % (AUTO) 0.6 % (0.0-2.0); EOSINOPHILS % (AUTO) 0.3 % (0.0-3.0); HEMATOCRIT 32.5 % (42.0-52.0); HEMOGLOBIN 10.4 G/DL (14.2-18.0); LYMPHOCYTES % (AUTO) 9.3 % (20.0-45.0); MEAN CORPUSCULAR VOLUME 90 FL (80-99); MONOCYTES % (AUTO) 8.5 % (1.0-10.0); NEUTROPHILS % (AUTO) 81.3 % (45.0-75.0); PLATELET COUNT 162 K/UL (150-450); RED BLOOD COUNT 3.62 M/UL (4.70-6.10); RED CELL DISTRIBUTION WIDTH 13.9 % (11.6-14.8); WHITE BLOOD COUNT 16.9 K/UL (4.8-10.8)
--- NOTE | 2018-10-30 05:05 | NUR ---
NURSE NOTES: NURSE NOTES: Provided bedpan. No BM noted.
[2018-10-30 05:18] LABS: CHOLESTEROL 75 MG/DL (< 200); HDL CHOLESTEROL 19 MG/DL (40-60); PHOSPHORUS 1.6 MG/DL (2.5-4.9); TRIGLYCERIDES 86 MG/DL (30-150)
[2018-10-30] MEDS: Morphine Sulfate 2mg/ml Inj(IV/IM USE ONLY) IVP PRN (06:42)
--- NOTE | 2018-10-30 06:42 | NUR ---
NURSE NOTES: Patient HR sustains 140-150s. BP is 210/138. Patient c/o generalized pain. Pain medication given as ordered.
[2018-10-30] MEDS: DiphenhydrAMINE 50mg/ml Inj IVP PRN (07:00)
--- NOTE | 2018-10-30 07:18 | NUR ---
NURSE NOTES: Dr. Segundo made aware that pt's HR and BP. Stat ecg is ordered.
--- NOTE | 2018-10-30 07:38 | NUR ---
HAND-OFF: Report given to CANDI Saavedra. Endorsed plan of care.
--- NOTE | 2018-10-30 08:25 | NUR ---
RADIOLOGY DEPT., CHEST X-RAY DONE.-P.DYE
--- NOTE | 2018-10-30 09:10 | NUR ---
NURSE NOTES: Dr. Bear updated on patient condition at the bedside and plan of care from pressing department supervisor Dr. Bryant. no verbal orders given at this time.
--- NOTE | 2018-10-30 09:34 | General Progress Note ---
Assessment/Plan Problem List: (1) Obstructive hydrocephalus ICD Codes: G91.1 - Obstructive hydrocephalus SNOMED: 717619520 (2) COPD (chronic obstructive pulmonary disease) ICD Codes: J44.9 - Chronic obstructive pulmonary disease, unspecified SNOMED: 95868625 (3) Diabetes mellitus ICD Codes: E11.9 - Type 2 diabetes mellitus without complications SNOMED: 95908491 (4) Feeding by G-tube ICD Codes: Z93.1 - Gastrostomy status SNOMED: 967993604, 326004578 (5) Sepsis ICD Codes: A41.9 - Sepsis, unspecified organism SNOMED: 73729771 (6) History of CVA (cerebrovascular accident) ICD Codes: Z86.73 - Personal history of transient ischemic attack (TIA), and cerebral infarction without residual deficits SNOMED: 275864033 (7) Encephalopathy chronic ICD Codes: G93.49 - Other encephalopathy SNOMED: 21328049 (8) UTI (urinary tract infection) ICD Codes: N39.0 - Urinary tract infection, site not specified SNOMED: 83210052 Qualifiers: Qualified Codes: N30.00 - Acute cystitis without hematuria (9) Septic shock ICD Codes: A41.9 - Sepsis, unspecified organism; R65.21 - Severe sepsis with septic shock SNOMED: 00862972 (10) ATN (acute tubular necrosis) ICD Codes: N17.0 - Acute kidney failure with tubular necrosis SNOMED: 04364570 Status: unchanged Assessment/Plan: o2 pulm tx abx bp control cbc bmp am Subjective Constitutional: Reports: weakness Allergies: Coded Allergies: VANCOMYCIN (Verified Allergy, Mild, Redness , 10/29/18) CIPROFLOXACIN (Verified Allergy, Unknown, 08/23/15) All Systems: reviewed and negative except above Subjective o2nc calm in icu off pressors Objective Last 24 Hour Vital Signs Date Time Temp Pulse Resp B/P (MAP) Pulse Ox O2 Delivery O2 Flow Rate FiO2 10/30/18 09:00 100 28 88/69 (75) 97 10/30/18 08:00 100.1 116 30 110/59 (76) 96 10/30/18 08:00 139 10/30/18 08:00 Room Air 10/30/18 07:17 125 20 99 Room Air 21 10/30/18 07:00 144 28 212/138 (162) 99 10/30/18 06:00 113 23 118/83 (95) 92 10/30/18 05:00 99.3 117 21 112/66 (81) 99 10/30/18 04:42 99.3 10/30/18 04:00 117 10/30/18 04:00 102.5 112 22 109/62 (78) 95 10/30/18 04:00 Room Air 10/30/18 03:00 117 23 95/61 (72) 95 10/30/18 02:00 123 24 94/57 (69) 95 10/30/18 01:00 104 25 107/79 (88) 88 10/30/18 00:00 99.8 80 26 107/79 (88) 100 10/30/18 00:00 Room Air 10/29/18 23:00 106 26 101/55 (70) 100 10/29/18 22:00 124 26 101/55 (70) 96 10/29/18 21:00 115 29 103/67 (79) 95 10/29/18 20:00 Room Air 10/29/18 20:00 132 10/29/18 20:00 99.0 132 32 187/152 (164) 95 10/29/18 19:25 109 21 97 Room Air 21 10/29/18 19:00 118 20 123/76 (92) 99 10/29/18 18:00 110 27 127/78 (94) 99 10/29/18 17:00 108 27 120/82 (95) 100 10/29/18 16:00 Room Air 10/29/18 16:00 110 10/29/18 16:00 99.2 106 24 119/87 (98) 98 10/29/18 15:00 105 23 121/78 (92) 100 10/29/18 14:00 105 23 133/100 (111) 100 10/29/18 13:30 110/77 10/29/18 13:15 107 18 110/77 (88) 100 10/29/18 13:00 135/86 10/29/18 13:00 93 22 135/86 (102) 100 10/29/18 12:30 95 20 121/80 (94) 100 10/29/18 12:15 94 20 118/86 (97) 100 10/29/18 12:00 99.5 95 18 118/85 (96) 99 10/29/18 12:00 92 10/29/18 12:00 118/85 10/29/18 12:00 Room Air 10/29/18 11:45 94 20 108/70 (83) 100 10/29/18 11:30 94 18 129/97 (108) 100 10/29/18 11:00 107/79 10/29/18 11:00 94 18 107/79 (88) 100 10/29/18 10:45 93 18 117/74 (88) 100 10/29/18 10:30 94 18 124/79 (94) 100 10/29/18 10:15 90 18 120/79 (93) 100 10/29/18 10:00 85 18 111/78 (89) 100 10/29/18 10:00 111/78 10/29/18 09:45 87 20 107/76 (86) 100 Intake and Output 10/29/18 10/30/18 19:00 07:00 Intake Total 795.0 ml 1650 ml Output Total 750 ml 730 ml Balance 45.0 ml 920 ml Intake Free Water 60 ml IV Total 735.0 ml 1650 ml Output Urine Total 750 ml 730 ml Laboratory Tests 10/29/18 11:30: Urine Color Pale yellow, Urine Appearance Slightly cloudy, Urine pH 6, Urine Specific [place] 1.010, Urine Protein 2+H, Urine Glucose (UA) Negative, Urine Ketones Negative, Urine Blood 4+H, Urine Nitrite PositiveH, Urine Bilirubin Negative, Urine Urobilinogen Normal, Urine Leukocyte Esterase 3+H, Urine RBC 30- 40H, Urine WBC TntcH, Urine Squamous Epithelial Cells Occasional, Urine Amorphous Sediment FewH, Urine Bacteria ModerateH, Urine Eosinophils None seen, Urine Osmolality 653H, Urine Random Creatinine [Pending], Urine Random Microalbumin [Pending], Urine Random Sodium 30, Urine Microalbumin/Creatinine Ratio [Pending], Troponin I 0.006 10/29/18 18:32: Troponin I 0.011 10/30/18 00:20: Random Amikacin Level 7.3 10/30/18 03:25: Troponin I 0.010, White Blood Count 16.9H, Red Blood Count 3.62L, Hemoglobin 10.4L, Hematocrit 32.5L, Mean Corpuscular Volume 90, Mean Corpuscular Hemoglobin 28.8, Mean Corpuscular Hemoglobin Concent 32.1, Red Cell Distribution Width 13.9, Platelet Count 162, Mean Platelet Volume 8.9, Neutrophils (%) (Auto) 81.3H, Lymphocytes (%) (Auto) 9.3L, Monocytes (%) (Auto) 8.5, Eosinophils (%) (Auto) 0.3, Basophils (%) (Auto) 0.6, Sodium Level 142, Potassium Level 3.6, Chloride Level 109H, Carbon Dioxide Level 25, Anion Gap 8, Blood Urea Nitrogen 24H, Creatinine 1.3, Estimat Glomerular Filtration Rate 56.3 , Glucose Level 87#, Hemoglobin A1c 5.4, Uric Acid 5.7, Calcium Level 7.1L, Phosphorus Level 1.6L, Magnesium Level 2.2, Total Bilirubin 0.5, Gamma Glutamyl Transpeptidase 23, Aspartate Amino Transf (AST/SGOT) 14L, Alanine Aminotransferase (ALT/SGPT) 10L, Alkaline Phosphatase 55, Total Creatine Kinase 63, C-Reactive Protein, Quantitative 23.1H, Pro-B-Type Natriuretic Peptide 1550H , Total Protein 6.4, Albumin 2.1L, Globulin 4.3, Albumin/Globulin Ratio 0.5L, Triglycerides Level 86, Cholesterol Level 75, LDL Cholesterol 47, HDL Cholesterol 19L, Cholesterol/HDL Ratio 3.9, Thyroid Stimulating Hormone (TSH) 0.464 10/30/18 08:29: Arterial Blood pH 7.449, Arterial Blood Partial Pressure CO2 28.1L, Arterial Blood Partial Pressure O2 66.0L, Arterial Blood HCO3 19.0L, Arterial Blood Oxygen Saturation 93.7L, Arterial Blood Base Excess -3.8L, Aiden Test Positive Height (Feet): 5 Height (Inches): 8.00 Weight (Pounds): 222 General Appearance: lethargic EENT: normal ENT inspection Neck: normal alignment Cardiovascular: normal peripheral pulses, normal rate, regular rhythm Respiratory/Chest: chest wall non-tender, lungs clear, normal breath sounds Abdomen: normal bowel sounds, non tender, soft Extremities: normal inspection Edema: no edema noted Arm (L), no edema noted Arm (R), no edema noted Leg (L), no edema noted Leg (R), no edema noted Pedal (L), no edema noted Pedal (R), no edema noted Generalized Neurologic: motor weakness Skin: normal pigmentation, warm/dry Jaylen Bear DO Oct 30, 2018 09:34
--- NOTE | 2018-10-30 09:56 | Pulmonolgy Critical Care Note ---
Critical Care - Asmt/Plan Problems: (1) Sepsis (2) ATN (acute tubular necrosis) (3) COPD (chronic obstructive pulmonary disease) (4) Suprapubic catheter (5) Encephalopathy chronic (6) Obstructive hydrocephalus (7) Aphasia (8) Feeding by G-tube (9) History of DVT (deep vein thrombosis) Respiratory: monitor respiratory rate, adjust FIO2, CXR Cardiac: continue to monitor HR/BP Renal: F/U I&O Infectious Disease: check cultures Gastrointestinal: continue feedings/current rate Endocrine: monitor blood sugar, check HgA1C Hematologic: monitor H/H Neurologic: PRN Morphine Time Spent (Minutes): 40 Notes Reviewed: cardio, renal Discussed with: nurses, consultants, [employer] emergency services manager - Objective Last 24 Hour Vital Signs Date Time Temp Pulse Resp B/P (MAP) Pulse Ox O2 Delivery O2 Flow Rate FiO2 10/30/18 09:00 100 28 88/69 (75) 97 10/30/18 08:00 100.1 116 30 110/59 (76) 96 10/30/18 08:00 139 10/30/18 08:00 Room Air 10/30/18 07:17 125 20 99 Room Air 21 10/30/18 07:00 144 28 212/138 (162) 99 10/30/18 06:00 113 23 118/83 (95) 92 10/30/18 05:00 99.3 117 21 112/66 (81) 99 10/30/18 04:42 99.3 10/30/18 04:00 117 10/30/18 04:00 102.5 112 22 109/62 (78) 95 10/30/18 04:00 Room Air 10/30/18 03:00 117 23 95/61 (72) 95 10/30/18 02:00 123 24 94/57 (69) 95 10/30/18 01:00 104 25 107/79 (88) 88 10/30/18 00:00 99.8 80 26 107/79 (88) 100 10/30/18 00:00 Room Air 10/29/18 23:00 106 26 101/55 (70) 100 10/29/18 22:00 124 26 101/55 (70) 96 10/29/18 21:00 115 29 103/67 (79) 95 10/29/18 20:00 Room Air 10/29/18 20:00 132 10/29/18 20:00 99.0 132 32 187/152 (164) 95 10/29/18 19:25 109 21 97 Room Air 21 10/29/18 19:00 118 20 123/76 (92) 99 10/29/18 18:00 110 27 127/78 (94) 99 10/29/18 17:00 108 27 120/82 (95) 100 10/29/18 16:00 Room Air 10/29/18 16:00 110 10/29/18 16:00 99.2 106 24 119/87 (98) 98 10/29/18 15:00 105 23 121/78 (92) 100 10/29/18 14:00 105 23 133/100 (111) 100 10/29/18 13:30 110/77 10/29/18 13:15 107 18 110/77 (88) 100 10/29/18 13:00 135/86 10/29/18 13:00 93 22 135/86 (102) 100 10/29/18 12:30 95 20 121/80 (94) 100 10/29/18 12:15 94 20 118/86 (97) 100 10/29/18 12:00 99.5 95 18 118/85 (96) 99 10/29/18 12:00 92 10/29/18 12:00 118/85 10/29/18 12:00 Room Air 10/29/18 11:45 94 20 108/70 (83) 100 10/29/18 11:30 94 18 129/97 (108) 100 10/29/18 11:00 107/79 10/29/18 11:00 94 18 107/79 (88) 100 10/29/18 10:45 93 18 117/74 (88) 100 10/29/18 10:30 94 18 124/79 (94) 100 10/29/18 10:15 90 18 120/79 (93) 100 10/29/18 10:00 85 18 111/78 (89) 100 10/29/18 10:00 111/78 Status: awake Condition: critical Neck: full ROM Heart: HR/BP stable Abdomen: soft, non-tender Extremities: no C/C/E Micro: Microbiology Date/Time Source Procedure Growth Status 10/29/18 00:30 Blood Blood Culture - Preliminary NO GROWTH AFTER 24 HOURS Resulted 10/29/18 00:15 Blood Blood Culture - Preliminary NO GROWTH AFTER 24 HOURS Resulted 10/29/18 10:00 Sputum Gram Stain - Final Resulted 10/29/18 10:00 Sputum Sputum Culture Pending Resulted 10/29/18 00:15 Urine,Clean Catch Urine Culture - Preliminary Gram Negative Bacillus 1 Resulted Accucheck: 157 Critical Care - Subjective ROS Limited/Unobtainable: Yes Condition: critical EKG Rhythm: Sinus Rhythm FI02: 21 Sputum Amount: None I&O: Intake and Output 10/29/18 10/30/18 19:00 07:00 Intake Total 795.0 ml 1650 ml Output Total 750 ml 730 ml Balance 45.0 ml 920 ml Intake Free Water 60 ml IV Total 735.0 ml 1650 ml Output Urine Total 750 ml 730 ml Labs: Laboratory Tests Test 10/29/18 11:30 10/29/18 18:32 10/30/18 00:20 10/30/18 03:25 Urine Color Pale yellow Urine Appearance Slightly cloudy Urine pH 6 (4.5-8.0) Urine Specific [place] 1.010 (1.005-1.035) Urine Protein 2+ (NEGATIVE) H Urine Glucose (UA) Negative (NEGATIVE) Urine Ketones Negative (NEGATIVE) Urine Blood 4+ (NEGATIVE) H Urine Nitrite Positive (NEGATIVE) H Urine Bilirubin Negative (NEGATIVE) Urine Urobilinogen Normal MG/DL (0.0-1.0) Urine Leukocyte Esterase 3+ (NEGATIVE) H Urine RBC 30-40 /HPF (0 - 0) H Urine WBC Tntc /HPF (0 - 0) H Urine Squamous Epithelial Cells Occasional /LPF Urine Amorphous Sediment Few /LPF (NONE) H Urine Bacteria Moderate /HPF (NONE) H Urine Eosinophils None seen (NONE SEEN) Urine Osmolality 653 mOsm/kg (429-449) H Urine Random Creatinine Pending Urine Random Microalbumin Pending Urine Random Sodium 30 mmol/L (20-110) Urine Microalbumin/Creatinine Ratio Pending Troponin I 0.006 ng/mL (0.000-0.056) 0.011 ng/mL (0.000-0.056) 0.010 ng/mL (0.000-0.056) Random Amikacin Level 7.3 ug/mL White Blood Count 16.9 K/UL (4.8-10.8) H Red Blood Count 3.62 M/UL (4.70-6.10) L Hemoglobin 10.4 G/DL (14.2-18.0) L Hematocrit 32.5 % (42.0-52.0) L Mean Corpuscular Volume 90 FL (80-99) Mean Corpuscular Hemoglobin 28.8 PG (27.0-31.0) Mean Corpuscular Hemoglobin Concent 32.1 G/DL (32.0-36.0) Red Cell Distribution Width 13.9 % (11.6-14.8) Platelet Count 162 K/UL (150-450) Mean Platelet Volume 8.9 FL (6.5-10.1) Neutrophils (%) (Auto) 81.3 % (45.0-75.0) H Lymphocytes (%) (Auto) 9.3 % (20.0-45.0) L Monocytes (%) (Auto) 8.5 % (1.0-10.0) Eosinophils (%) (Auto) 0.3 % (0.0-3.0) Basophils (%) (Auto) 0.6 % (0.0-2.0) Sodium Level 142 MMOL/L (136-145) Potassium Level 3.6 MMOL/L (3.5-5.1) Chloride Level 109 MMOL/L (98-107) H Carbon Dioxide Level 25 MMOL/L (21-32) Anion Gap 8 mmol/L (5-15) Blood Urea Nitrogen 24 mg/dL (7-18) H Creatinine 1.3 MG/DL (0.55-1.30) Estimat Glomerular Filtration Rate 56.3 mL/min (>60) Glucose Level 87 MG/DL (74-106) # Hemoglobin A1c 5.4 % (4.3-6.0) Uric Acid 5.7 MG/DL (2.6-7.2) Calcium Level 7.1 MG/DL (8.5-10.1) L Phosphorus Level 1.6 MG/DL (2.5-4.9) L Magnesium Level 2.2 MG/DL (1.8-2.4) Total Bilirubin 0.5 MG/DL (0.2-1.0) Gamma Glutamyl Transpeptidase 23 U/L (5-85) Aspartate Amino Transf (AST/SGOT) 14 U/L (15-37) L Alanine Aminotransferase (ALT/SGPT) 10 U/L (12-78) L Alkaline Phosphatase 55 U/L (46-116) Total Creatine Kinase 63 U/L (26-308) C-Reactive Protein, Quantitative 23.1 mg/dL (0.00-0.90) H Pro-B-Type Natriuretic Peptide 1550 pg/mL (0-125) H Total Protein 6.4 G/DL (6.4-8.2) Albumin 2.1 G/DL (3.4-5.0) L Globulin 4.3 g/dL Albumin/Globulin Ratio 0.5 (1.0-2.7) L Triglycerides Level 86 MG/DL (30-150) Cholesterol Level 75 MG/DL (< 200) LDL Cholesterol 47 mg/dL (<100) HDL Cholesterol 19 MG/DL (40-60) L Cholesterol/HDL Ratio 3.9 (3.3-4.4) Thyroid Stimulating Hormone (TSH) 0.464 uiU/mL (0.358-3.740) Test 10/30/18 08:29 Arterial Blood pH 7.449 (7.350-7.450) Arterial Blood Partial Pressure CO2 28.1 mmHg (35.0-45.0) L Arterial Blood Partial Pressure O2 66.0 mmHg (75.0-100.0) L Arterial Blood HCO3 19.0 mmol/L (22.0-26.0) L Arterial Blood Oxygen Saturation 93.7 % (95-100) L Arterial Blood Base Excess -3.8 (-2-2) L Aiden Test Positive Rigoberto Bryant MD Oct 30, 2018 09:56
[2018-10-30] MEDS: Docusate 100mg cap ORAL SCH ×3 (10:04→19:05)
--- NOTE | 2018-10-30 10:05 | NUR ---
NURSE NOTES: Dr. Bryant updated on plan of care. Dr. Bryant ordered famotidine 20mg Q12hrs and potassium phosphate 30mm, no further orders given at this time.
[2018-10-30] MEDS: Heparin 5000 units/ml inj SUBQ SCH ×2 (10:07→20:39)
--- NOTE | 2018-10-30 10:20 | NUR ---
NURSE NOTES: blister under G-tube is pink with dry thin fluid, cleaned with saline, applied Silvasorb and Optifoam over dressing
[2018-10-30] MEDS ORDERED: Potassium Phosphate 30 MM in Sodium Chloride 550 ML IV ONE (11:00)
--- NOTE | 2018-10-30 11:03 | Diagnostic Imaging Report ---
Indication: Dyspnea Comparison: 10/29/2018 A single view chest radiograph was obtained. Findings: Some increase in bronchovascular markings about the right hilum noted once again unchanged. Lung volumes remain low bilaterally. Heart size is normal and stable. Bones are unremarkable. IMPRESSION: Right perihilar disease possibly atelectasis or pneumonia. No change
--- NOTE | 2018-10-30 11:23 | NUR ---
NURSE NOTES: Message left at Dr. Amirah galdamez, informed regarding Blood cultures resulted with gram positive cocci in clusters and gram negative rods seen. awaiting for call back.
--- NOTE | 2018-10-30 13:20 | Cardiac Electrophysiology PN ---
Assessment/Plan Assessment/Plan 1. Shock, likely due to septic shock as well as dehydration, as sodium is high and BUN and creatinine is also elevated. The patient with lactic acidosis 2.4. Now off Levophed and on IV antibiotics Echo Nl EF 2. Inferior wall myocardial infarction based on electrocardiogram. Ruled out for myocardial infarction. Echocardiogram EF 65% 3. Hypernatremia. 4. Renal failure. 5. CVA with paraplegia. 6. Status post suprapubic catheter. Subjective Subjective Off pressors in ICU. Had sinus tach but was febrile but HR now 100 Objective Last 24 Hour Vital Signs Date Time Temp Pulse Resp B/P (MAP) Pulse Ox O2 Delivery O2 Flow Rate FiO2 10/30/18 12:00 99.8 118 22 95/62 (73) 97 10/30/18 12:00 Room Air 10/30/18 12:00 116 10/30/18 11:09 100.5 10/30/18 11:00 126 23 98/78 (85) 98 10/30/18 10:00 127 25 110/88 (95) 100 10/30/18 09:00 100 28 88/69 (75) 97 10/30/18 08:00 100.1 116 30 110/59 (76) 96 10/30/18 08:00 139 10/30/18 08:00 Room Air 10/30/18 07:17 125 20 99 Room Air 21 10/30/18 07:00 144 28 212/138 (162) 99 10/30/18 06:00 113 23 118/83 (95) 92 10/30/18 05:00 99.3 117 21 112/66 (81) 99 10/30/18 04:00 117 10/30/18 04:00 102.5 112 22 109/62 (78) 95 10/30/18 04:00 Room Air 10/30/18 03:00 117 23 95/61 (72) 95 10/30/18 02:00 123 24 94/57 (69) 95 10/30/18 01:00 104 25 107/79 (88) 88 10/30/18 00:00 99.8 80 26 107/79 (88) 100 10/30/18 00:00 Room Air 10/29/18 23:00 106 26 101/55 (70) 100 10/29/18 22:00 124 26 101/55 (70) 96 7/23/19 21:00 115 29 103/67 (79) 95 10/29/18 20:00 Room Air 10/29/18 20:00 132 10/29/18 20:00 99.0 132 32 187/152 (164) 95 10/29/18 19:25 109 21 97 Room Air 21 10/29/18 19:00 118 20 123/76 (92) 99 10/29/18 18:00 110 27 127/78 (94) 99 10/29/18 17:00 108 27 120/82 (95) 100 10/29/18 16:00 Room Air 10/29/18 16:00 110 10/29/18 16:00 99.2 106 24 119/87 (98) 98 10/29/18 15:00 105 23 121/78 (92) 100 10/29/18 14:00 105 23 133/100 (111) 100 10/29/18 13:30 110/77 Intake and Output 10/29/18 10/30/18 19:00 07:00 Intake Total 795.0 ml 1650 ml Output Total 750 ml 730 ml Balance 45.0 ml 920 ml Intake Free Water 60 ml IV Total 735.0 ml 1650 ml Output Urine Total 750 ml 730 ml Laboratory Tests Test 10/29/18 18:32 10/30/18 00:20 10/30/18 03:25 10/30/18 08:29 Troponin I 0.011 ng/mL (0.000-0.056) 0.010 ng/mL (0.000-0.056) Random Amikacin Level 7.3 ug/mL White Blood Count 16.9 K/UL (4.8-10.8) H Red Blood Count 3.62 M/UL (4.70-6.10) L Hemoglobin 10.4 G/DL (14.2-18.0) L Hematocrit 32.5 % (42.0-52.0) L Mean Corpuscular Volume 90 FL (80-99) Mean Corpuscular Hemoglobin 28.8 PG (27.0-31.0) Mean Corpuscular Hemoglobin Concent 32.1 G/DL (32.0-36.0) Red Cell Distribution Width 13.9 % (11.6-14.8) Platelet Count 162 K/UL (150-450) Mean Platelet Volume 8.9 FL (6.5-10.1) Neutrophils (%) (Auto) 81.3 % (45.0-75.0) H Lymphocytes (%) (Auto) 9.3 % (20.0-45.0) L Monocytes (%) (Auto) 8.5 % (1.0-10.0) Eosinophils (%) (Auto) 0.3 % (0.0-3.0) Basophils (%) (Auto) 0.6 % (0.0-2.0) Sodium Level 142 MMOL/L (136-145) Potassium Level 3.6 MMOL/L (3.5-5.1) Chloride Level 109 MMOL/L (98-107) H Carbon Dioxide Level 25 MMOL/L (21-32) Anion Gap 8 mmol/L (5-15) Blood Urea Nitrogen 24 mg/dL (7-18) H Creatinine 1.3 MG/DL (0.55-1.30) Estimat Glomerular Filtration Rate 56.3 mL/min (>60) Glucose Level 87 MG/DL (74-106) # Hemoglobin A1c 5.4 % (4.3-6.0) Uric Acid 5.7 MG/DL (2.6-7.2) Calcium Level 7.1 MG/DL (8.5-10.1) L Phosphorus Level 1.6 MG/DL (2.5-4.9) L Magnesium Level 2.2 MG/DL (1.8-2.4) Total Bilirubin 0.5 MG/DL (0.2-1.0) Gamma Glutamyl Transpeptidase 23 U/L (5-85) Aspartate Amino Transf (AST/SGOT) 14 U/L (15-37) L Alanine Aminotransferase (ALT/SGPT) 10 U/L (12-78) L Alkaline Phosphatase 55 U/L (46-116) Total Creatine Kinase 63 U/L (26-308) C-Reactive Protein, Quantitative 23.1 mg/dL (0.00-0.90) H Pro-B-Type Natriuretic Peptide 1550 pg/mL (0-125) H Total Protein 6.4 G/DL (6.4-8.2) Albumin 2.1 G/DL (3.4-5.0) L Globulin 4.3 g/dL Albumin/Globulin Ratio 0.5 (1.0-2.7) L Triglycerides Level 86 MG/DL (30-150) Cholesterol Level 75 MG/DL (< 200) LDL Cholesterol 47 mg/dL (<100) HDL Cholesterol 19 MG/DL (40-60) L Cholesterol/HDL Ratio 3.9 (3.3-4.4) Thyroid Stimulating Hormone (TSH) 0.464 uiU/mL (0.358-3.740) Arterial Blood pH 7.449 (7.350-7.450) Arterial Blood Partial Pressure CO2 28.1 mmHg (35.0-45.0) L Arterial Blood Partial Pressure O2 66.0 mmHg (75.0-100.0) L Arterial Blood HCO3 19.0 mmol/L (22.0-26.0) L Arterial Blood Oxygen Saturation 93.7 % (95-100) L Arterial Blood Base Excess -3.8 (-2-2) L Aiden Test Positive Microbiology Date/Time Source Procedure Growth Status 10/29/18 00:30 Blood Blood Culture - Preliminary Resulted 10/29/18 00:15 Blood Blood Culture - Preliminary Resulted 10/29/18 10:00 Sputum Gram Stain - Final Resulted 10/29/18 10:00 Sputum Sputum Culture Pending Resulted 10/29/18 00:15 Urine,Clean Catch Urine Culture - Preliminary Gram Negative Bacillus 1 Resulted Objective HEAD AND NECK: No JVD. LUNGS: Coarse rhonchi. CARDIOVASCULAR: Shows tachycardic. S1, S2 with no gallop. ABDOMEN: Soft, status post suprapubic catheter. EXTREMITIES: Bilateral lower extremity _. The arm is also contracted. Darnell Segundo MD Oct 30, 2018 13:20
[2018-10-30] MEDS: Amikacin 1,200 MG in NS 275 ML IV SCH (13:31)
--- NOTE | 2018-10-30 13:36 | Infectious Diseases Prog Note ---
Assessment/Plan Assessment/Plan Assessment: Septic shock- likely 2ryt o UTI c/w bacteremia- off pressors now -10/30 CXR: Right perihilar disease possibly atelectasis or pneumonia. No change -repeat u/a wbc tnct, nit +, leuk +3 -u/a wbc 19-15, nit +, leuk +2; ucx >100k GNR -CXR: Low lung volumes with right perihilar atelectatic changes. No definite acute process -10/29 Bcx 07/11 GNR -sp cx p Fever Leukocytosis; improving GILDARDO, improving hx of UTI -07/2018 ucx E. fecalis (neri S), P. mirabilis -03/2019 ucx PsA CVA/TIA Dm2 CKD suprapubic catheter DVT hypertensive heart disease [place] resident Plan: -Continue empiric Amikacin #2 and Meropenem #2 pending cultures -10/29 SP Ertapenem #1, IV Vancomycin x1 -f/u cx -Monitor CBC/CMP, temperatures -ICU care -aspiration precautions Thank you for this consultation. Will continue to follow along with you. Discussed with RN. Subjective Allergies: Coded Allergies: VANCOMYCIN (Verified Allergy, Mild, Redness , 10/29/18) CIPROFLOXACIN (Verified Allergy, Unknown, 08/23/15) Subjective Tm 102.5 wbc and Cr improving bacteremic Objective Vital Signs Last 24 Hour Vital Signs Date Time Temp Pulse Resp B/P (MAP) Pulse Ox O2 Delivery O2 Flow Rate FiO2 10/30/18 12:00 99.8 118 22 95/62 (73) 97 10/30/18 12:00 Room Air 10/30/18 12:00 116 10/30/18 11:09 100.5 10/30/18 11:00 126 23 98/78 (85) 98 10/30/18 10:00 127 25 110/88 (95) 100 10/30/18 09:00 100 28 88/69 (75) 97 10/30/18 08:00 100.1 116 30 110/59 (76) 96 10/30/18 08:00 139 10/30/18 08:00 Room Air 10/30/18 07:17 125 20 99 Room Air 21 10/30/18 07:00 144 28 212/138 (162) 99 10/30/18 06:00 113 23 118/83 (95) 92 10/30/18 05:00 99.3 117 21 112/66 (81) 99 10/30/18 04:00 117 10/30/18 04:00 102.5 112 22 109/62 (78) 95 10/30/18 04:00 Room Air 10/30/18 03:00 117 23 95/61 (72) 95 10/30/18 02:00 123 24 94/57 (69) 95 10/30/18 01:00 104 25 107/79 (88) 88 10/30/18 00:00 99.8 80 26 107/79 (88) 100 10/30/18 00:00 Room Air 10/29/18 23:00 106 26 101/55 (70) 100 10/29/18 22:00 124 26 101/55 (70) 96 10/29/18 21:00 115 29 103/67 (79) 95 10/29/18 20:00 Room Air 10/29/18 20:00 132 10/29/18 20:00 99.0 132 32 187/152 (164) 95 10/29/18 19:25 109 21 97 Room Air 21 10/29/18 19:00 118 20 123/76 (92) 99 10/29/18 18:00 110 27 127/78 (94) 99 10/29/18 17:00 108 27 120/82 (95) 100 10/29/18 16:00 Room Air 10/29/18 16:00 110 10/29/18 16:00 99.2 106 24 119/87 (98) 98 10/29/18 15:00 105 23 121/78 (92) 100 10/29/18 14:00 105 23 133/100 (111) 100 10/29/18 13:30 110/77 Height (Feet): 5 Height (Inches): 8.00 Weight (Pounds): 222 Objective General Appearance: WD/WN, no apparent distress Lines, tubes and drains: peripheral, central line, gtube HEENT: normocephalic, atraumatic, anicteric Neck: non-tender, normal alignment Respiratory/Chest: chest wall non-tender, lungs clear Cardiovascular/Chest: normal peripheral pulses, normal rate Abdomen: normal bowel sounds Extremities: normal range of motion Microbiology Date/Time Source Procedure Growth Status 10/29/18 00:30 Blood Blood Culture - Preliminary Resulted 10/29/18 00:15 Blood Blood Culture - Preliminary Resulted 10/29/18 10:00 Sputum Gram Stain - Final Resulted 10/29/18 10:00 Sputum Sputum Culture Pending Resulted 10/29/18 00:15 Urine,Clean Catch Urine Culture - Preliminary Gram Negative Bacillus 1 Resulted Laboratory Tests Test 10/29/18 18:32 10/30/18 00:20 10/30/18 03:25 10/30/18 08:29 Troponin I 0.011 ng/mL (0.000-0.056) 0.010 ng/mL (0.000-0.056) Random Amikacin Level 7.3 ug/mL White Blood Count 16.9 K/UL (4.8-10.8) H Red Blood Count 3.62 M/UL (4.70-6.10) L Hemoglobin 10.4 G/DL (14.2-18.0) L Hematocrit 32.5 % (42.0-52.0) L Mean Corpuscular Volume 90 FL (80-99) Mean Corpuscular Hemoglobin 28.8 PG (27.0-31.0) Mean Corpuscular Hemoglobin Concent 32.1 G/DL (32.0-36.0) Red Cell Distribution Width 13.9 % (11.6-14.8) Platelet Count 162 K/UL (150-450) Mean Platelet Volume 8.9 FL (6.5-10.1) Neutrophils (%) (Auto) 81.3 % (45.0-75.0) H Lymphocytes (%) (Auto) 9.3 % (20.0-45.0) L Monocytes (%) (Auto) 8.5 % (1.0-10.0) Eosinophils (%) (Auto) 0.3 % (0.0-3.0) Basophils (%) (Auto) 0.6 % (0.0-2.0) Sodium Level 142 MMOL/L (136-145) Potassium Level 3.6 MMOL/L (3.5-5.1) Chloride Level 109 MMOL/L (98-107) H Carbon Dioxide Level 25 MMOL/L (21-32) Anion Gap 8 mmol/L (5-15) Blood Urea Nitrogen 24 mg/dL (7-18) H Creatinine 1.3 MG/DL (0.55-1.30) Estimat Glomerular Filtration Rate 56.3 mL/min (>60) Glucose Level 87 MG/DL (74-106) # Hemoglobin A1c 5.4 % (4.3-6.0) Uric Acid 5.7 MG/DL (2.6-7.2) Calcium Level 7.1 MG/DL (8.5-10.1) L Phosphorus Level 1.6 MG/DL (2.5-4.9) L Magnesium Level 2.2 MG/DL (1.8-2.4) Total Bilirubin 0.5 MG/DL (0.2-1.0) Gamma Glutamyl Transpeptidase 23 U/L (5-85) Aspartate Amino Transf (AST/SGOT) 14 U/L (15-37) L Alanine Aminotransferase (ALT/SGPT) 10 U/L (12-78) L Alkaline Phosphatase 55 U/L (46-116) Total Creatine Kinase 63 U/L (26-308) C-Reactive Protein, Quantitative 23.1 mg/dL (0.00-0.90) H Pro-B-Type Natriuretic Peptide 1550 pg/mL (0-125) H Total Protein 6.4 G/DL (6.4-8.2) Albumin 2.1 G/DL (3.4-5.0) L Globulin 4.3 g/dL Albumin/Globulin Ratio 0.5 (1.0-2.7) L Triglycerides Level 86 MG/DL (30-150) Cholesterol Level 75 MG/DL (< 200) LDL Cholesterol 47 mg/dL (<100) HDL Cholesterol 19 MG/DL (40-60) L Cholesterol/HDL Ratio 3.9 (3.3-4.4) Thyroid Stimulating Hormone (TSH) 0.464 uiU/mL (0.358-3.740) Arterial Blood pH 7.449 (7.350-7.450) Arterial Blood Partial Pressure CO2 28.1 mmHg (35.0-45.0) L Arterial Blood Partial Pressure O2 66.0 mmHg (75.0-100.0) L Arterial Blood HCO3 19.0 mmol/L (22.0-26.0) L Arterial Blood Oxygen Saturation 93.7 % (95-100) L Arterial Blood Base Excess -3.8 (-2-2) L Aiden Test Positive Current Medications Medications (Trade) Dose Ordered Sig/Fab Route PRN Reason Start Time Stop Time Status Last Admin Dose Admin Acetaminophen (Tylenol) 650 mg Q4H PRN ORAL fever (temp>100.5 F) 10/29/18 07:15 11/28/18 07:14 10/30/18 10:06 Albuterol/ Ipratropium (Albuterol/ Ipratropium) 3 ml Q4H PRN HHN Shortness of Breath 10/29/18 07:15 11/03/18 07:14 Amikacin Protocol (Amikacin pharmacy to dose) 1 ea DAILY PRN MISC PER RX PROTOCOL 10/29/18 07:45 11/28/18 07:44 Amikacin Sulfate 1200 mg/Sodium Chloride 279.8 ml @ 559.6 mls/ hr Q24H IV 10/30/18 13:00 11/06/18 12:59 Chlorhexidine Gluconate (Licha-Hex 2%) 1 applic DAILY@2000 TOPIC 10/30/18 20:00 11/29/18 19:59 Diphenhydramine HCl (Benadryl) 25 mg Q6H PRN IVP Itching 10/29/18 13:14 11/28/18 13:13 10/30/18 07:00 Docusate Sodium (Colace) 100 mg THREE TIMES A DAY ORAL 10/29/18 18:00 11/28/18 17:59 10/30/18 10:04 Famotidine (Pepcid) 20 mg Q12HR ORAL 10/30/18 21:00 11/29/18 20:59 Heparin Sodium (Porcine) (Heparin 5000 units/ml) 5,000 units EVERY 12 HOURS SUBQ 10/29/18 09:00 11/28/18 08:59 10/30/18 10:07 Meropenem 1 gm/ Sodium Chloride 55 ml @ 110 mls/hr Q12H IVPB 10/29/18 13:00 11/03/18 12:59 10/30/18 00:37 Morphine Sulfate (Morphine Sulfate) 2 mg Q4H PRN IVP Severe Pain (Pain Scale 7-10) 10/29/18 07:15 11/05/18 07:14 10/30/18 06:42 Norepinephrine Bitartrate 4 mg/ Dextrose 250 ml @ 0 mls/hr Q24H IV 10/29/18 04:45 11/28/18 04:44 10/29/18 05:26 Ondansetron HCl (Zofran) 4 mg Q6H PRN IVP Nausea & Vomiting 10/29/18 07:15 11/28/18 07:14 Polyethylene Glycol (Miralax) 17 gm DAILYPRN PRN ORAL Constipation 10/29/18 07:15 11/28/18 07:14 Potassium Phosphate 30 mm/ Sodium Chloride 560 ml @ 93.3 mls/hr ONCE ONCE IV 10/30/18 11:00 10/30/18 17:00 10/30/18 11:59 Sodium Chloride 1,000 ml @ 75 mls/hr [id number] IV 10/30/18 12:30 11/29/18 12:29 Dorothea Macario M.D. Oct 30, 2018 13:36
--- NOTE | 2018-10-30 13:37 | NUR ---
VETERINARY VIROLOGISTASTHMA EDUCATOR SI: SEPTIC SHOCK T. 102.5 HR 144 RR 28 B/P 95/61 PH 7.44 PCO2 28.1 PO2 66.0 HCO3 19.0 O2 SAT 93.7 WBC 16.9 BNP 1560 CXR= RIGHT PERIHILAR DISEASE ATELECTASIS VS PNA IS: AMIKACIN IV IVF NS @ 75ML/HR KEPPRA IV ICU STATUS
--- NOTE | 2018-10-30 14:30 | NUR ---
NURSE NOTES: Dr. Macario placed order for Blood cultures to be drawn peripherally, Venous duplex completed and awaiting for report to be completed, Patient remains awake and alert to name, place and situation, he is able to answer questions with a yes and no response, no pain reported using his head to node right to left, patient is covered with blankets for shivering while reposition at the bedside,
--- NOTE | 2018-10-30 14:44 | Nephrology Progress Note ---
Assessment/Plan Problem List: (1) GILDARDO (acute kidney injury) (2) Septic shock (3) Suprapubic catheter (4) History of CVA (cerebrovascular accident) Assessment Acute renal failure- Septic shock on presentation CVA Suprapubic cath / ? Neurogenic bladder HTN DVT UTI Plan Hydrate avoid nephrotoxics monitor renal parameters per orders Subjective ROS Limited/Unobtainable: No Constitutional: Reports: malaise, weakness Objective Objective Last 24 Hour Vital Signs Date Time Temp Pulse Resp B/P (MAP) Pulse Ox O2 Delivery O2 Flow Rate FiO2 10/30/18 14:00 131 21 129/78 (95) 96 10/30/18 13:00 107 19 87/58 (68) 97 10/30/18 12:00 99.8 118 22 95/62 (73) 97 10/30/18 12:00 Room Air 10/30/18 12:00 116 10/30/18 11:09 100.5 10/30/18 11:00 126 23 98/78 (85) 98 10/30/18 10:00 127 25 110/88 (95) 100 10/30/18 09:00 100 28 88/69 (75) 97 10/30/18 08:00 100.1 116 30 110/59 (76) 96 10/30/18 08:00 139 10/30/18 08:00 Room Air 10/30/18 07:17 125 20 99 Room Air 21 10/30/18 07:00 144 28 212/138 (162) 99 10/30/18 06:00 113 23 118/83 (95) 92 10/30/18 05:00 99.3 117 21 112/66 (81) 99 10/30/18 04:00 117 10/30/18 04:00 102.5 112 22 109/62 (78) 95 10/30/18 04:00 Room Air 10/30/18 03:00 117 23 95/61 (72) 95 10/30/18 02:00 123 24 94/57 (69) 95 10/30/18 01:00 104 25 107/79 (88) 88 10/30/18 00:00 99.8 80 26 107/79 (88) 100 10/30/18 00:00 Room Air 10/29/18 23:00 106 26 101/55 (70) 100 10/29/18 22:00 124 26 101/55 (70) 96 10/29/18 21:00 115 29 103/67 (79) 95 10/29/18 20:00 Room Air 10/29/18 20:00 132 10/29/18 20:00 99.0 132 32 187/152 (164) 95 10/29/18 19:25 109 21 97 Room Air 21 10/29/18 19:00 118 20 123/76 (92) 99 10/29/18 18:00 110 27 127/78 (94) 99 10/29/18 17:00 108 27 120/82 (95) 100 10/29/18 16:00 Room Air 10/29/18 16:00 110 10/29/18 16:00 99.2 106 24 119/87 (98) 98 10/29/18 15:00 105 23 121/78 (92) 100 Intake and Output 10/29/18 10/30/18 19:00 07:00 Intake Total 795.0 ml 1650 ml Output Total 750 ml 730 ml Balance 45.0 ml 920 ml Intake Free Water 60 ml IV Total 735.0 ml 1650 ml Output Urine Total 750 ml 730 ml Laboratory Tests 10/29/18 18:32: Troponin I 0.011 10/30/18 00:20: Random Amikacin Level 7.3 10/30/18 03:25: Troponin I 0.010, White Blood Count 16.9H, Red Blood Count 3.62L, Hemoglobin 10.4L, Hematocrit 32.5L, Mean Corpuscular Volume 90, Mean Corpuscular Hemoglobin 28.8, Mean Corpuscular Hemoglobin Concent 32.1, Red Cell Distribution Width 13.9, Platelet Count 162, Mean Platelet Volume 8.9, Neutrophils (%) (Auto) 81.3H, Lymphocytes (%) (Auto) 9.3L, Monocytes (%) (Auto) 8.5, Eosinophils (%) (Auto) 0.3, Basophils (%) (Auto) 0.6, Sodium Level 142, Potassium Level 3.6, Chloride Level 109H, Carbon Dioxide Level 25, Anion Gap 8, Blood Urea Nitrogen 24H, Creatinine 1.3, Estimat Glomerular Filtration Rate 56.3 , Glucose Level 87#, Hemoglobin A1c 5.4, Uric Acid 5.7, Calcium Level 7.1L, Phosphorus Level 1.6L, Magnesium Level 2.2, Total Bilirubin 0.5, Gamma Glutamyl Transpeptidase 23, Aspartate Amino Transf (AST/SGOT) 14L, Alanine Aminotransferase (ALT/SGPT) 10L, Alkaline Phosphatase 55, Total Creatine Kinase 63, C-Reactive Protein, Quantitative 23.1H, Pro-B-Type Natriuretic Peptide 1550H , Total Protein 6.4, Albumin 2.1L, Globulin 4.3, Albumin/Globulin Ratio 0.5L, Triglycerides Level 86, Cholesterol Level 75, LDL Cholesterol 47, HDL Cholesterol 19L, Cholesterol/HDL Ratio 3.9, Thyroid Stimulating Hormone (TSH) 0.464 10/30/18 08:29: Arterial Blood pH 7.449, Arterial Blood Partial Pressure CO2 28.1L, Arterial Blood Partial Pressure O2 66.0L, Arterial Blood HCO3 19.0L, Arterial Blood Oxygen Saturation 93.7L, Arterial Blood Base Excess -3.8L, Aiden Test Positive Height (Feet): 5 Height (Inches): 8.00 Weight (Pounds): 222 General Appearance: no apparent distress Cardiovascular: tachycardia Respiratory/Chest: decreased breath sounds Abdomen: distended Genitourinary/Rectal: other - suprapubic Pranav Grady MD Oct 30, 2018 14:44
--- NOTE | 2018-10-30 14:48 | Cardiology Report ---
APPROVED REPORT EKG Measurement Heart [id number] MD [id number] Sinus tachycardia Right superior axis deviation Nonspecific T wave abnormality Abnormal ECG
--- NOTE | 2018-10-30 14:53 | Cardiology Report ---
APPROVED REPORT EKG Measurement Heart [id number] MD [id number] Sinus tachycardia Rightward axis Low voltage QRS Borderline ECG
--- NOTE | 2018-10-30 19:48 | NUR ---
HAND-OFF: Report given to CANDI Clark. Patient has temperature of 103.0F and remains awake and responsive, he remains able to say yes and no, patient given 650mg po of tylenol, placed on cooling measures with fan at the bedside.
--- NOTE | 2018-10-30 19:50 | NUR ---
NURSE NOTES: PATIENT ALERT, RESPONSE TO QUESTION, DENIED PAIN OR SOB AT THIS TIME, RESPIRATION REGULAR ON ROOM AIR, O2 SATURATION 100% NOTED, ABDOMEN SOFT, ROUND, NON TENDER STATUS, G TUBE INTACT AND PATENT, NPO STATUS, SUPRAPUBIC CATHETER SLIGHT LEAKED STATUS, YELLOW COLOR WITH SEDIMENTS URINE OUTED, TLC TO RIGHT FEMORAL INTACT AND PATENT, ONGOING 1/2 NS AT 75ML/HR VIA TLC, KEPT SZ PRECAUTION. MADE LOWER BED POSITION, PROVIDED CALL LIGHT WITHIN REACH, ON BED ALARM, TEMP 101.6F NOTED THAT CONTINUE COOLING MEASURE, WILL CONTINUE TO MONITOR.
[2018-10-30] MEDS ORDERED: Dyna-Hex 2% Top Sol 2oz TOPIC SCH (20:00)
--- NOTE | 2018-10-30 21:35 | NUR ---
NURSE NOTES: STARTED LEVOPHED DRIP 2MCG/MIN VIA RIGHT FEMORAL TLC PER PROTOCOLS, WILL CONTINUE TO MONITOR.
--- NOTE | 2018-10-30 23:03 | NUR ---
NURSE NOTES: PATIENT ASLEEP STATUS, ONGOING LEVOPHED 4MCG/MIN VIA TLC, WILL CONTINUE PLAN OF CARE.
[2018-10-31] VITALS (19 sets, daily range): BP systolic 107–158; BP diastolic 72–101
[2018-10-31] MEDS: Meropenem 1 GM in NS 55 ML IVPB SCH (00:35)
--- NOTE | 2018-10-31 01:00 | NUR ---
NURSE NOTES: NO ACUTE DISTRESS NOTED AT THIS TIME.
--- NOTE | 2018-10-31 03:50 | NUR ---
HAND-OFF: Report given to CANDI ESCOBAR.
--- NOTE | 2018-10-31 04:00 | NUR ---
NURSE NOTES: Pt report received from Marquise LINER REPLACER. pt appears to be stable resting in bed. pt is alert and oriented times 1, unable to follow commands. pt has a air sampling and monitoring able to show NSR, no signs symptoms acute cardiac distress noted. pt is on room air and able to sat at 99%, no signs symptoms of acute resp distress noted. pt has a R Femoral triple lumen central line inserted, patent no abnormalities noted. pt bed armed, locked and low, call light within easy reach, bed rails up times 3. will proceed with plan of care.
[2018-10-31 05:21] LABS: BASOPHILS % (AUTO) 0.3 % (0.0-2.0); EOSINOPHILS % (AUTO) 0.1 % (0.0-3.0); HEMATOCRIT 34.6 % (42.0-52.0); MEAN CORPUSCULAR VOLUME 90 FL (80-99); MONOCYTES % (AUTO) 8.2 % (1.0-10.0); NEUTROPHILS % (AUTO) 78.4 % (45.0-75.0); PLATELET COUNT 146 K/UL (150-450); RED BLOOD COUNT 3.85 M/UL (4.70-6.10); RED CELL DISTRIBUTION WIDTH 14.1 % (11.6-14.8); WHITE BLOOD COUNT 17.1 K/UL (4.8-10.8)
--- NOTE | 2018-10-31 05:22 | NUR ---
NURSE NOTES: Pt Blood pressure is stable as of now, 133/96 (MAP 103), HR 107. Pt Levophed is stopped until further assessment.
[2018-10-31 06:00] LABS: ALANINE AMINOTRANSFERASE 10 U/L (12-78); ALBUMIN/GLOBULIN RATIO 0.4 (1.0-2.7); ALKALINE PHOSPHATASE 72 U/L (46-116); ANION GAP 12 mmol/L (5-15); ASPARTATE AMINO TRANSFERASE 20 U/L (15-37); BILIRUBIN,TOTAL 0.4 MG/DL (0.2-1.0); BLOOD UREA NITROGEN 19 mg/dL (7-18); CALCIUM 7.2 MG/DL (8.5-10.1); CARBON DIOXIDE 22 MMOL/L (21-32); CHLORIDE 107 MMOL/L (98-107); CREATININE 1.2 MG/DL (0.55-1.30); PHOSPHORUS 2.7 MG/DL (2.5-4.9); POTASSIUM 3.8 MMOL/L (3.5-5.1); SODIUM 141 MMOL/L (136-145)
--- NOTE | 2018-10-31 07:34 | NUR ---
HAND-OFF: Report given to Quentin ONBOARDING SPECIALIST. PT is in stable condition.
--- NOTE | 2018-10-31 08:37 | Nephrology Progress Note ---
Assessment/Plan Problem List: (1) GILDARDO (acute kidney injury) (2) Septic shock (3) Suprapubic catheter (4) History of CVA (cerebrovascular accident) Assessment Acute renal failure- resolved Septic shock on presentation CVA Suprapubic cath / ? Neurogenic bladder HTN DVT UTI Plan stop Hydrate avoid nephrotoxics monitor renal parameters med surg? per orders Subjective ROS Limited/Unobtainable: Yes Objective Objective Last 24 Hour Vital Signs Date Time Temp Pulse Resp B/P (MAP) Pulse Ox O2 Delivery O2 Flow Rate FiO2 10/31/18 08:00 90 10/31/18 06:00 93 19 122/77 (92) 100 10/31/18 05:00 95 19 133/96 (108) 100 10/31/18 05:00 133/93 10/31/18 04:26 128/88 10/31/18 04:00 98.1 82 17 128/88 (101) 99 10/31/18 04:00 Room Air 10/31/18 04:00 88 10/31/18 04:00 128/88 10/31/18 03:00 121/75 10/31/18 02:00 117/93 10/31/18 01:00 117/79 10/31/18 01:00 82 16 117/79 (92) 100 10/31/18 00:30 85 18 107/73 (84) 100 10/31/18 00:00 97.3 89 17 108/72 (84) 97 10/31/18 00:00 Room Air 10/31/18 00:00 108/72 10/31/18 00:00 85 10/30/18 23:30 92 17 107/69 (82) 100 10/30/18 23:00 86 16 103/69 (80) 100 10/30/18 23:00 103/69 10/30/18 22:30 92 15 93/62 (72) 100 10/30/18 22:00 92/69 10/30/18 22:00 97.9 94 16 92/69 (77) 97 10/30/18 21:45 102 17 96/69 (78) 100 10/30/18 21:40 103 16 80/53 (62) 98 10/30/18 21:40 80/53 10/30/18 21:35 80/55 10/30/18 21:30 106 17 80/55 (63) 99 10/30/18 21:00 112 20 83/52 (62) 99 10/30/18 20:30 123 25 85/50 (62) 100 10/30/18 20:00 101.6 129 27 88/54 (65) 99 10/30/18 20:00 Room Air 10/30/18 19:36 101.6 10/30/18 19:33 124 20 99 Room Air 21 10/30/18 19:23 126 10/30/18 19:00 137 32 103/71 (82) 98 10/30/18 18:00 136 29 97/72 (80) 97 10/30/18 17:00 140 31 120/78 (92) 97 10/30/18 16:30 144 30 115/74 (88) 100 10/30/18 16:00 143 10/30/18 16:00 Room Air 10/30/18 16:00 100.1 148 29 142/112 (122) 90 10/30/18 15:00 132 27 163/77 (105) 93 10/30/18 14:00 131 21 129/78 (95) 96 10/30/18 13:00 107 19 87/58 (68) 97 10/30/18 12:00 99.8 118 22 95/62 (73) 97 10/30/18 12:00 Room Air 10/30/18 12:00 116 10/30/18 11:00 126 23 98/78 (85) 98 10/30/18 10:00 127 25 110/88 (95) 100 10/30/18 09:00 100 28 88/69 (75) 97 Intake and Output 10/30/18 10/31/18 19:00 07:00 Intake Total 4359.8 ml 1008.1 ml Output Total 755 ml 480 ml Balance 3604.8 ml 528.1 ml Intake Free Water 675 ml IV Total 3644.8 ml 968.1 ml Other 40 ml 40 ml Output Urine Total 755 ml 480 ml Laboratory Tests 10/31/18 04:36: White Blood Count 17.1H, Red Blood Count 3.85L, Hemoglobin 11.0L, Hematocrit 34.6L, Mean Corpuscular Volume 90, Mean Corpuscular Hemoglobin 28.7, Mean Corpuscular Hemoglobin Concent 31.9L, Red Cell Distribution Width 14.1, Platelet Count 146L, Mean Platelet Volume 8.1, Neutrophils (%) (Auto) 78.4H, Lymphocytes (%) (Auto) 13.0L, Monocytes (%) (Auto) 8.2, Eosinophils (%) (Auto) 0.1, Basophils (%) (Auto) 0.3, Erythrocyte Sedimentation Rate 105H, Sodium Level 141, Potassium Level 3.8, Chloride Level 107, Carbon Dioxide Level 22, Anion Gap 12, Blood Urea Nitrogen 19H, Creatinine 1.2, Estimat Glomerular Filtration Rate > 60, Glucose Level 80, Uric Acid 5.5, Calcium Level 7.2L, Phosphorus Level 2.7, Magnesium Level 2.3, Total Bilirubin 0.4, Gamma Glutamyl Transpeptidase 14, Aspartate Amino Transf (AST/SGOT) 20, Alanine Aminotransferase (ALT/SGPT) 10L, Alkaline Phosphatase 72, C-Reactive Protein, Quantitative 31.2H, Pro-B-Type Natriuretic Peptide 4719H, Total Protein 7.4, Albumin 2.0L, Globulin 5.4, Albumin/Globulin Ratio 0.4L, Cortisol AM Sample [ Pending] Height (Feet): 5 Height (Inches): 8.00 Weight (Pounds): 222 General Appearance: no apparent distress Cardiovascular: tachycardia Respiratory/Chest: decreased breath sounds Abdomen: soft, other - PEG Pranav Grady MD Oct 31, 2018 08:36
--- NOTE | 2018-10-31 09:30 | NUR ---
NURSE NOTES: Dr. Grady updated on patient condition, no verbal orders given at this time.
--- NOTE | 2018-10-31 10:12 | Infectious Diseases Prog Note ---
Assessment/Plan Assessment/Plan Assessment: Septic shock- likely 2ryt o UTI c/w bacteremia- off pressors now -probable pNA -10/30 CXR: Right perihilar disease possibly atelectasis or pneumonia. No change -repeat u/a wbc tnct, nit +, leuk +3 -u/a wbc 19-15, nit +, leuk +2; ucx >100k GNR -CXR: Low lung volumes with right perihilar atelectatic changes. No definite acute process -10/29 Bcx 07/11 GNR; repeat Bcx NTD -sp cx GNR, Staph sp Fever Leukocytosis; improving GILDARDO, improving hx of UTI -07/2018 ucx E. fecalis (neri S), P. mirabilis -03/2019 ucx PsA CVA/TIA Dm2 CKD suprapubic catheter DVT hypertensive heart disease MD resident Plan: -Continue empiric Amikacin #3 and Meropenem #3 pending cultures -Resume empiric IV Vancomycin #2 for staph sp sputum cx -10/29 SP Ertapenem #1, IV Vancomycin x1 -f/u cx -Monitor CBC/CMP, temperatures -ICU care -aspiration precautions -CXR am Thank you for this consultation. Will continue to follow along with you. Discussed with RN. Subjective Allergies: Coded Allergies: VANCOMYCIN (Verified Allergy, Mild, Redness , 10/29/18) CIPROFLOXACIN (Verified Allergy, Unknown, 08/23/15) Subjective Tm 102.5 repaet Bcx NTD leukocytosis Objective Vital Signs Last 24 Hour Vital Signs Date Time Temp Pulse Resp B/P (MAP) Pulse Ox O2 Delivery O2 Flow Rate FiO2 10/31/18 09:00 84 20 113/78 (90) 100 10/31/18 08:00 82 21 123/75 (91) 100 10/31/18 08:00 90 10/31/18 07:00 96 20 116/78 (91) 95 10/31/18 06:00 93 19 122/77 (92) 100 10/31/18 05:00 95 19 133/96 (108) 100 10/31/18 05:00 133/93 10/31/18 04:26 128/88 10/31/18 04:00 98.1 82 17 128/88 (101) 99 10/31/18 04:00 Room Air 10/31/18 04:00 88 10/31/18 04:00 128/88 10/31/18 03:00 121/75 10/31/18 02:00 117/93 10/31/18 01:00 117/79 10/31/18 01:00 82 16 117/79 (92) 100 10/31/18 00:30 85 18 107/73 (84) 100 10/31/18 00:00 97.3 89 17 108/72 (84) 97 10/31/18 00:00 Room Air 10/31/18 00:00 108/72 10/31/18 00:00 85 10/30/18 23:30 92 17 107/69 (82) 100 10/30/18 23:00 86 16 103/69 (80) 100 10/30/18 23:00 103/69 10/30/18 22:30 92 15 93/62 (72) 100 10/30/18 22:00 92/69 10/30/18 22:00 97.9 94 16 92/69 (77) 97 10/30/18 21:45 102 17 96/69 (78) 100 10/30/18 21:40 103 16 80/53 (62) 98 10/30/18 21:40 80/53 10/30/18 21:35 80/55 10/30/18 21:30 106 17 80/55 (63) 99 10/30/18 21:00 112 20 83/52 (62) 99 10/30/18 20:30 123 25 85/50 (62) 100 10/30/18 20:00 101.6 129 27 88/54 (65) 99 10/30/18 20:00 Room Air 10/30/18 19:36 101.6 10/30/18 19:33 124 20 99 Room Air 21 10/30/18 19:23 126 10/30/18 19:00 137 32 103/71 (82) 98 10/30/18 18:00 136 29 97/72 (80) 97 10/30/18 17:00 140 31 120/78 (92) 97 10/30/18 16:30 144 30 115/74 (88) 100 10/30/18 16:00 143 10/30/18 16:00 Room Air 10/30/18 16:00 100.1 148 29 142/112 (122) 90 10/30/18 15:00 132 27 163/77 (105) 93 10/30/18 14:00 131 21 129/78 (95) 96 10/30/18 13:00 107 19 87/58 (68) 97 10/30/18 12:00 99.8 118 22 95/62 (73) 97 10/30/18 12:00 Room Air 10/30/18 12:00 116 10/30/18 11:00 126 23 98/78 (85) 98 Height (Feet): 5 Height (Inches): 8.00 Weight (Pounds): 222 Objective General Appearance: WD/WN, no apparent distress Lines, tubes and drains: peripheral, central line, gtube HEENT: normocephalic, atraumatic, anicteric Neck: non-tender, normal alignment Respiratory/Chest: chest wall non-tender, lungs clear Cardiovascular/Chest: normal peripheral pulses, normal rate Abdomen: normal bowel sounds Extremities: normal range of motion Microbiology Date/Time Source Procedure Growth Status 10/29/18 07:30 Blood Blood Culture - Preliminary NO GROWTH AFTER 24 HOURS Resulted 10/29/18 07:15 Blood Blood Culture - Preliminary NO GROWTH AFTER 24 HOURS Resulted 10/29/18 00:30 Blood Blood Culture - Preliminary Gram Negative Bacillus 1 Resulted 10/29/18 00:15 Blood Blood Culture - Preliminary Gram Negative Bacillus 1 Resulted 10/29/18 10:00 Sputum Gram Stain - Final Resulted 10/29/18 10:00 Sputum Culture - Preliminary Staphylococcus Species Gram Negative Oswaldo Resulted 10/29/18 00:15 Urine,Clean Catch Urine Culture - Preliminary Gram Negative Bacillus 1 Resulted 10/29/18 00:30 Rectum - Final NO CARBAPENEM-RESISTANT ENTEROBACTERI... Complete 10/29/18 00:30 Rectum VRE Culture - Final Enterococcus Faecium - Vre Complete Laboratory Tests Test 10/31/18 04:36 White Blood Count 17.1 K/UL (4.8-10.8) H Red Blood Count 3.85 M/UL (4.70-6.10) L Hemoglobin 11.0 G/DL (14.2-18.0) L Hematocrit 34.6 % (42.0-52.0) L Mean Corpuscular Volume 90 FL (80-99) Mean Corpuscular Hemoglobin 28.7 PG (27.0-31.0) Mean Corpuscular Hemoglobin Concent 31.9 G/DL (32.0-36.0) L Red Cell Distribution Width 14.1 % (11.6-14.8) Platelet Count 146 K/UL (150-450) L Mean Platelet Volume 8.1 FL (6.5-10.1) Neutrophils (%) (Auto) 78.4 % (45.0-75.0) H Lymphocytes (%) (Auto) 13.0 % (20.0-45.0) L Monocytes (%) (Auto) 8.2 % (1.0-10.0) Eosinophils (%) (Auto) 0.1 % (0.0-3.0) Basophils (%) (Auto) 0.3 % (0.0-2.0) Erythrocyte Sedimentation Rate 105 MM/HR (0-20) H Sodium Level 141 MMOL/L (136-145) Potassium Level 3.8 MMOL/L (3.5-5.1) Chloride Level 107 MMOL/L (98-107) Carbon Dioxide Level 22 MMOL/L (21-32) Anion Gap 12 mmol/L (5-15) Blood Urea Nitrogen 19 mg/dL (7-18) H Creatinine 1.2 MG/DL (0.55-1.30) Estimat Glomerular Filtration Rate > 60 mL/min (>60) Glucose Level 80 MG/DL (74-106) Uric Acid 5.5 MG/DL (2.6-7.2) Calcium Level 7.2 MG/DL (8.5-10.1) L Phosphorus Level 2.7 MG/DL (2.5-4.9) Magnesium Level 2.3 MG/DL (1.8-2.4) Total Bilirubin 0.4 MG/DL (0.2-1.0) Gamma Glutamyl Transpeptidase 14 U/L (5-85) Aspartate Amino Transf (AST/SGOT) 20 U/L (15-37) Alanine Aminotransferase (ALT/SGPT) 10 U/L (12-78) L Alkaline Phosphatase 72 U/L (46-116) C-Reactive Protein, Quantitative 31.2 mg/dL (0.00-0.90) H Pro-B-Type Natriuretic Peptide 4719 pg/mL (0-125) H Total Protein 7.4 G/DL (6.4-8.2) Albumin 2.0 G/DL (3.4-5.0) L Globulin 5.4 g/dL Albumin/Globulin Ratio 0.4 (1.0-2.7) L Cortisol AM Sample Pending Current Medications Medications (Trade) Dose Ordered Sig/Fab Route PRN Reason Start Time Stop Time Status Last Admin Dose Admin Acetaminophen (Tylenol) 650 mg Q4H PRN ORAL fever (temp>100.5 F) 10/29/18 07:15 11/28/18 07:14 10/30/18 19:06 Albuterol/ Ipratropium (Albuterol/ Ipratropium) 3 ml Q4H PRN HHN Shortness of Breath 10/29/18 07:15 11/03/18 07:14 Amikacin Protocol (Amikacin pharmacy to dose) 1 ea DAILY PRN MISC PER RX PROTOCOL 10/29/18 07:45 11/28/18 07:44 Amikacin Sulfate 1200 mg/Sodium Chloride 279.8 ml @ 559.6 mls/ hr Q24H IV 10/30/18 13:00 11/06/18 12:59 10/30/18 13:31 Chlorhexidine Gluconate (Licha-Hex 2%) 1 applic DAILY@2000 TOPIC 10/30/18 20:00 11/29/18 19:59 10/30/18 19:49 Diphenhydramine HCl (Benadryl) 25 mg Q6H PRN IVP Itching 10/29/18 13:14 11/28/18 13:13 10/30/18 07:00 Docusate Sodium (Colace) 100 mg THREE TIMES A DAY ORAL 10/29/18 18:00 11/28/18 17:59 10/30/18 19:05 Famotidine (Pepcid) 20 mg Q12HR ORAL 10/30/18 21:00 11/29/18 20:59 10/30/18 20:38 Heparin Sodium (Porcine) (Heparin 5000 units/ml) 5,000 units EVERY 12 HOURS SUBQ 10/29/18 09:00 11/28/18 08:59 10/30/18 20:39 Meropenem 1 gm/ Sodium Chloride 110 ml @ 220 mls/hr Q8HR@0100,0900,1700 IVPB 10/31/18 10:00 11/05/18 09:59 Midodrine (Pro-Amatine) 2.5 mg THREE TIMES A DAY GT 10/30/18 18:00 11/29/18 17:59 10/30/18 19:05 Morphine Sulfate (Morphine Sulfate) 2 mg Q4H PRN IVP Severe Pain (Pain Scale 7-10) 10/29/18 07:15 11/05/18 07:14 10/30/18 06:42 Norepinephrine Bitartrate 4 mg/ Dextrose 250 ml @ 0 mls/hr Q24H IV 10/29/18 04:45 11/28/18 04:44 10/30/18 21:35 Ondansetron HCl (Zofran) 4 mg Q6H PRN IVP Nausea & Vomiting 10/29/18 07:15 11/28/18 07:14 Polyethylene Glycol (Miralax) 17 gm DAILYPRN PRN ORAL Constipation 10/29/18 07:15 11/28/18 07:14 Dorothea Macario M.D. Oct 31, 2018 10:12
--- NOTE | 2018-10-31 10:18 | Pulmonolgy Critical Care Note ---
Critical Care - Asmt/Plan Problems: (1) Sepsis (2) ATN (acute tubular necrosis) (3) COPD (chronic obstructive pulmonary disease) (4) Suprapubic catheter (5) Encephalopathy chronic (6) Obstructive hydrocephalus (7) Aphasia (8) Feeding by G-tube (9) History of DVT (deep vein thrombosis) Respiratory: monitor respiratory rate, adjust FIO2, CXR Cardiac: continue to monitor HR/BP Renal: F/U I&O, keep IV fluid Infectious Disease: check cultures Gastrointestinal: continue feedings/current rate Endocrine: monitor blood sugar Prophylaxis: Protonix Disposition: keep in ICU Notes Reviewed: head orthopedic team physician, cardio, ID Critical Care - Objective Last 24 Hour Vital Signs Date Time Temp Pulse Resp B/P (MAP) Pulse Ox O2 Delivery O2 Flow Rate FiO2 10/31/18 09:00 84 20 113/78 (90) 100 10/31/18 08:00 82 21 123/75 (91) 100 10/31/18 08:00 90 10/31/18 07:00 96 20 116/78 (91) 95 10/31/18 06:00 93 19 122/77 (92) 100 10/31/18 05:00 95 19 133/96 (108) 100 10/31/18 05:00 133/93 10/31/18 04:26 128/88 10/31/18 04:00 98.1 82 17 128/88 (101) 99 10/31/18 04:00 Room Air 10/31/18 04:00 88 10/31/18 04:00 128/88 10/31/18 03:00 121/75 10/31/18 02:00 117/93 10/31/18 01:00 117/79 10/31/18 01:00 82 16 117/79 (92) 100 10/31/18 00:30 85 18 107/73 (84) 100 10/31/18 00:00 97.3 89 17 108/72 (84) 97 10/31/18 00:00 Room Air 10/31/18 00:00 108/72 10/31/18 00:00 85 10/30/18 23:30 92 17 107/69 (82) 100 10/30/18 23:00 86 16 103/69 (80) 100 10/30/18 23:00 103/69 10/30/18 22:30 92 15 93/62 (72) 100 10/30/18 22:00 92/69 10/30/18 22:00 97.9 94 16 92/69 (77) 97 10/30/18 21:45 102 17 96/69 (78) 100 10/30/18 21:40 103 16 80/53 (62) 98 10/30/18 21:40 80/53 10/30/18 21:35 80/55 10/30/18 21:30 106 17 80/55 (63) 99 10/30/18 21:00 112 20 83/52 (62) 99 10/30/18 20:30 123 25 85/50 (62) 100 10/30/18 20:00 101.6 129 27 88/54 (65) 99 10/30/18 20:00 Room Air 10/30/18 19:36 101.6 10/30/18 19:33 124 20 99 Room Air 21 10/30/18 19:23 126 10/30/18 19:00 137 32 103/71 (82) 98 10/30/18 18:00 136 29 97/72 (80) 97 10/30/18 17:00 140 31 120/78 (92) 97 10/30/18 16:30 144 30 115/74 (88) 100 10/30/18 16:00 143 10/30/18 16:00 Room Air 10/30/18 16:00 100.1 148 29 142/112 (122) 90 10/30/18 15:00 132 27 163/77 (105) 93 10/30/18 14:00 131 21 129/78 (95) 96 10/30/18 13:00 107 19 87/58 (68) 97 10/30/18 12:00 99.8 118 22 95/62 (73) 97 10/30/18 12:00 Room Air 10/30/18 12:00 116 10/30/18 11:00 126 23 98/78 (85) 98 Status: awake Condition: critical HEENT: atraumatic Lungs: clear Heart: HR/BP stable Abdomen: soft, active bowel sounds Extremities: no C/C/E Decubiti: location Micro: Microbiology Date/Time Source Procedure Growth Status 10/29/18 07:30 Blood Blood Culture - Preliminary NO GROWTH AFTER 24 HOURS Resulted 10/29/18 07:15 Blood Blood Culture - Preliminary NO GROWTH AFTER 24 HOURS Resulted 10/29/18 00:30 Blood Blood Culture - Preliminary Gram Negative Bacillus 1 Resulted 10/29/18 00:15 Blood Blood Culture - Preliminary Gram Negative Bacillus 1 Resulted 10/29/18 10:00 Sputum Gram Stain - Final Resulted 10/29/18 10:00 Sputum Culture - Preliminary Staphylococcus Species Gram Negative Oswaldo Resulted 10/29/18 00:15 Urine,Clean Catch Urine Culture - Preliminary Gram Negative Bacillus 1 Resulted 10/29/18 00:30 Rectum - Final NO CARBAPENEM-RESISTANT ENTEROBACTERI... Complete 10/29/18 00:30 Rectum VRE Culture - Final Enterococcus Faecium - Vre Complete Accucheck: 157 Critical Care - Subjective ROS Limited/Unobtainable: Yes Condition: critical EKG Rhythm: Sinus Rhythm FI02: 21 Sputum Amount: None I&O: Intake and Output 10/30/18 10/31/18 19:00 07:00 Intake Total 4359.8 ml 1008.1 ml Output Total 755 ml 480 ml Balance 3604.8 ml 528.1 ml Intake Free Water 675 ml IV Total 3644.8 ml 968.1 ml Other 40 ml 40 ml Output Urine Total 755 ml 480 ml Labs: Laboratory Tests Test 10/31/18 04:36 White Blood Count 17.1 K/UL (4.8-10.8) H Red Blood Count 3.85 M/UL (4.70-6.10) L Hemoglobin 11.0 G/DL (14.2-18.0) L Hematocrit 34.6 % (42.0-52.0) L Mean Corpuscular Volume 90 FL (80-99) Mean Corpuscular Hemoglobin 28.7 PG (27.0-31.0) Mean Corpuscular Hemoglobin Concent 31.9 G/DL (32.0-36.0) L Red Cell Distribution Width 14.1 % (11.6-14.8) Platelet Count 146 K/UL (150-450) L Mean Platelet Volume 8.1 FL (6.5-10.1) Neutrophils (%) (Auto) 78.4 % (45.0-75.0) H Lymphocytes (%) (Auto) 13.0 % (20.0-45.0) L Monocytes (%) (Auto) 8.2 % (1.0-10.0) Eosinophils (%) (Auto) 0.1 % (0.0-3.0) Basophils (%) (Auto) 0.3 % (0.0-2.0) Erythrocyte Sedimentation Rate 105 MM/HR (0-20) H Sodium Level 141 MMOL/L (136-145) Potassium Level 3.8 MMOL/L (3.5-5.1) Chloride Level 107 MMOL/L (98-107) Carbon Dioxide Level 22 MMOL/L (21-32) Anion Gap 12 mmol/L (5-15) Blood Urea Nitrogen 19 mg/dL (7-18) H Creatinine 1.2 MG/DL (0.55-1.30) Estimat Glomerular Filtration Rate > 60 mL/min (>60) Glucose Level 80 MG/DL (74-106) Uric Acid 5.5 MG/DL (2.6-7.2) Calcium Level 7.2 MG/DL (8.5-10.1) L Phosphorus Level 2.7 MG/DL (2.5-4.9) Magnesium Level 2.3 MG/DL (1.8-2.4) Total Bilirubin 0.4 MG/DL (0.2-1.0) Gamma Glutamyl Transpeptidase 14 U/L (5-85) Aspartate Amino Transf (AST/SGOT) 20 U/L (15-37) Alanine Aminotransferase (ALT/SGPT) 10 U/L (12-78) L Alkaline Phosphatase 72 U/L (46-116) C-Reactive Protein, Quantitative 31.2 mg/dL (0.00-0.90) H Pro-B-Type Natriuretic Peptide 4719 pg/mL (0-125) H Total Protein 7.4 G/DL (6.4-8.2) Albumin 2.0 G/DL (3.4-5.0) L Globulin 5.4 g/dL Albumin/Globulin Ratio 0.4 (1.0-2.7) L Cortisol AM Sample Pending Rigoberto Bryant MD Oct 31, 2018 10:18
--- NOTE | 2018-10-31 10:30 | NUR ---
NURSE NOTES: Dr. Bryant updated on patient condition and for possible transfer to the floor, no further orders given at this time.
[2018-10-31] MEDS: Meropenem 1gm/NS 110ml IVPB SCH ×4 (10:42→16:38)
[2018-10-31] MEDS: Docusate 100mg cap ORAL SCH ×3 (10:42→17:54)
[2018-10-31] MEDS: Heparin 5000 units/ml inj SUBQ SCH ×2 (10:44→21:00)
--- NOTE | 2018-10-31 11:00 | Cardiac Electrophysiology PN ---
Assessment/Plan Assessment/Plan 1. Shock, likely due to septic shock as well as dehydration as sodium is high and BUN and creatinine is also elevated. The patient with lactic acidosis 2.4. Now off Levophed and on IV antibiotics Echo Nl EF 2. Inferior wall myocardial infarction based on electrocardiogram. Ruled out for myocardial infarction. Echocardiogram EF 65% 3. Hypernatremia. 4. Renal failure. 5. CVA with paraplegia. 6. Status post suprapubic catheter. Transfer out of ICU Subjective Subjective Off pressors in ICU. Alert. DC to med surg pending Objective Last 24 Hour Vital Signs Date Time Temp Pulse Resp B/P (MAP) Pulse Ox O2 Delivery O2 Flow Rate FiO2 10/31/18 09:00 84 20 113/78 (90) 100 10/31/18 08:00 82 21 123/75 (91) 100 10/31/18 08:00 90 10/31/18 07:00 96 20 116/78 (91) 95 10/31/18 06:00 93 19 122/77 (92) 100 10/31/18 05:00 95 19 133/96 (108) 100 10/31/18 05:00 133/93 10/31/18 04:26 128/88 10/31/18 04:00 98.1 82 17 128/88 (101) 99 10/31/18 04:00 Room Air 10/31/18 04:00 88 10/31/18 04:00 128/88 10/31/18 03:00 121/75 10/31/18 02:00 117/93 10/31/18 01:00 117/79 10/31/18 01:00 82 16 117/79 (92) 100 10/31/18 00:30 85 18 107/73 (84) 100 10/31/18 00:00 97.3 89 17 108/72 (84) 97 10/31/18 00:00 Room Air 10/31/18 00:00 108/72 10/31/18 00:00 85 10/30/18 23:30 92 17 107/69 (82) 100 10/30/18 23:00 86 16 103/69 (80) 100 10/30/18 23:00 103/69 10/30/18 22:30 92 15 93/62 (72) 100 10/30/18 22:00 92/69 10/30/18 22:00 97.9 94 16 92/69 (77) 97 10/30/18 21:45 102 17 96/69 (78) 100 10/30/18 21:40 103 16 80/53 (62) 98 10/30/18 21:40 80/53 10/30/18 21:35 80/55 10/30/18 21:30 106 17 80/55 (63) 99 10/30/18 21:00 112 20 83/52 (62) 99 10/30/18 20:30 123 25 85/50 (62) 100 10/30/18 20:00 101.6 129 27 88/54 (65) 99 10/30/18 20:00 Room Air 10/30/18 19:36 101.6 10/30/18 19:33 124 20 99 Room Air 21 10/30/18 19:23 126 10/30/18 19:00 137 32 103/71 (82) 98 10/30/18 18:00 136 29 97/72 (80) 97 10/30/18 17:00 140 31 120/78 (92) 97 10/30/18 16:30 144 30 115/74 (88) 100 10/30/18 16:00 143 10/30/18 16:00 Room Air 10/30/18 16:00 100.1 148 29 142/112 (122) 90 10/30/18 15:00 132 27 163/77 (105) 93 10/30/18 14:00 131 21 129/78 (95) 96 10/30/18 13:00 107 19 87/58 (68) 97 10/30/18 12:00 99.8 118 22 95/62 (73) 97 10/30/18 12:00 Room Air 10/30/18 12:00 116 10/30/18 11:00 126 23 98/78 (85) 98 Intake and Output 10/30/18 10/31/18 19:00 07:00 Intake Total 4359.8 ml 1008.1 ml Output Total 755 ml 535 ml Balance 3604.8 ml 473.1 ml Intake Free Water 675 ml IV Total 3644.8 ml 968.1 ml Other 40 ml 40 ml Output Urine Total 755 ml 535 ml Laboratory Tests Test 10/31/18 04:36 White Blood Count 17.1 K/UL (4.8-10.8) H Red Blood Count 3.85 M/UL (4.70-6.10) L Hemoglobin 11.0 G/DL (14.2-18.0) L Hematocrit 34.6 % (42.0-52.0) L Mean Corpuscular Volume 90 FL (80-99) Mean Corpuscular Hemoglobin 28.7 PG (27.0-31.0) Mean Corpuscular Hemoglobin Concent 31.9 G/DL (32.0-36.0) L Red Cell Distribution Width 14.1 % (11.6-14.8) Platelet Count 146 K/UL (150-450) L Mean Platelet Volume 8.1 FL (6.5-10.1) Neutrophils (%) (Auto) 78.4 % (45.0-75.0) H Lymphocytes (%) (Auto) 13.0 % (20.0-45.0) L Monocytes (%) (Auto) 8.2 % (1.0-10.0) Eosinophils (%) (Auto) 0.1 % (0.0-3.0) Basophils (%) (Auto) 0.3 % (0.0-2.0) Erythrocyte Sedimentation Rate 105 MM/HR (0-20) H Sodium Level 141 MMOL/L (136-145) Potassium Level 3.8 MMOL/L (3.5-5.1) Chloride Level 107 MMOL/L (98-107) Carbon Dioxide Level 22 MMOL/L (21-32) Anion Gap 12 mmol/L (5-15) Blood Urea Nitrogen 19 mg/dL (7-18) H Creatinine 1.2 MG/DL (0.55-1.30) Estimat Glomerular Filtration Rate > 60 mL/min (>60) Glucose Level 80 MG/DL (74-106) Uric Acid 5.5 MG/DL (2.6-7.2) Calcium Level 7.2 MG/DL (8.5-10.1) L Phosphorus Level 2.7 MG/DL (2.5-4.9) Magnesium Level 2.3 MG/DL (1.8-2.4) Total Bilirubin 0.4 MG/DL (0.2-1.0) Gamma Glutamyl Transpeptidase 14 U/L (5-85) Aspartate Amino Transf (AST/SGOT) 20 U/L (15-37) Alanine Aminotransferase (ALT/SGPT) 10 U/L (12-78) L Alkaline Phosphatase 72 U/L (46-116) C-Reactive Protein, Quantitative 31.2 mg/dL (0.00-0.90) H Pro-B-Type Natriuretic Peptide 4719 pg/mL (0-125) H Total Protein 7.4 G/DL (6.4-8.2) Albumin 2.0 G/DL (3.4-5.0) L Globulin 5.4 g/dL Albumin/Globulin Ratio 0.4 (1.0-2.7) L Cortisol AM Sample Pending Microbiology Date/Time Source Procedure Growth Status 10/29/18 07:30 Blood Blood Culture - Preliminary NO GROWTH AFTER 24 HOURS Resulted 10/29/18 07:15 Blood Blood Culture - Preliminary NO GROWTH AFTER 24 HOURS Resulted 10/29/18 00:30 Blood Blood Culture - Preliminary Gram Negative Bacillus 1 Resulted 10/29/18 00:15 Blood Blood Culture - Preliminary Gram Negative Bacillus 1 Resulted 10/29/18 10:00 Sputum Gram Stain - Final Resulted 10/29/18 10:00 Sputum Culture - Preliminary Staphylococcus Species Gram Negative Oswaldo Resulted 10/29/18 00:30 Nasal Nares MRSA Culture - Final NO METHICILLIN RESISTANT STAPH AUREUS... Complete 10/29/18 00:15 Urine,Clean Catch Urine Culture - Preliminary Gram Negative Bacillus 1 Resulted 10/29/18 00:30 Rectum - Final NO CARBAPENEM-RESISTANT ENTEROBACTERI... Complete 10/29/18 00:30 Rectum VRE Culture - Final Enterococcus Faecium - Vre Complete Objective HEAD AND NECK: No JVD. LUNGS: Coarse rhonchi. CARDIOVASCULAR: Shows tachycardic. S1, S2 with no gallop. ABDOMEN: Soft, status post suprapubic catheter. EXTREMITIES: Bilateral lower extremity _. The arm is also contracted. Darnell Segundo MD Oct 31, 2018 11:00
[2018-10-31] MEDS ORDERED: Vancomycin 1.5gm Premix IVPB ONE (11:30)
--- NOTE | 2018-10-31 12:30 | NUR ---
NURSE NOTES: Wound care provided on patient abdominal wound with with silvabord and optifoam, will continue plan of care.
--- NOTE | 2018-10-31 13:27 | NUR ---
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 98.7 HR 87 RR 23 B/P 121/85 RA 98% WBC 17.1 PLT 146 ESR 105 BUN 19 BNP 4719 IS: VANCO IV AMIKACIN IV MEROPENEM IV DOWNGRADE TO MED/SURG MED/SURG STATUS
[2018-10-31] MEDS: Amikacin 1,200 MG in NS 275 ML IV SCH (13:57)
--- NOTE | 2018-10-31 14:30 | NUR ---
NURSE NOTES: Right femoral central Line dressing changed and placed with sterile technique, applied a collection bag over suprapubic catheter to collect leaking urine from suprapubic catheter. opening around suprapubic remains pink with no swelling of redness. central line remains clean and dry with no swelling or redness at insertion site.
--- NOTE | 2018-10-31 15:05 | General Progress Note ---
Assessment/Plan Status: unchanged Assessment/Plan: (1) Obstructive hydrocephalus ICD Codes: G91.1 - Obstructive hydrocephalus SNOMED: 120036550 (2) COPD (chronic obstructive pulmonary disease) ICD Codes: J44.9 - Chronic obstructive pulmonary disease, unspecified SNOMED: 77207321 (3) Diabetes mellitus ICD Codes: E11.9 - Type 2 diabetes mellitus without complications SNOMED: 28617892 (4) Feeding by G-tube ICD Codes: Z93.1 - Gastrostomy status SNOMED: 797612577, 579077982 (5) Sepsis ICD Codes: A41.9 - Sepsis, unspecified organism SNOMED: 58777815 (6) History of CVA (cerebrovascular accident) ICD Codes: Z86.73 - Personal history of transient ischemic attack (TIA), and cerebral infarction without residual deficits SNOMED: 760759697 (7) Encephalopathy chronic ICD Codes: G93.49 - Other encephalopathy SNOMED: 01314771 (8) UTI (urinary tract infection) ICD Codes: N39.0 - Urinary tract infection, site not specified SNOMED: 98287020 Qualifiers: Qualified Codes: N30.00 - Acute cystitis without hematuria (9) Septic shock ICD Codes: A41.9 - Sepsis, unspecified organism; R65.21 - Severe sepsis with septic shock SNOMED: 67659744 (10) ATN (acute tubular necrosis) ICD Codes: N17.0 - Acute kidney failure with tubular necrosis SNOMED: 94620203 Status: unchanged Assessment/Plan: --> dc to med surg floor today, seen by cards, pulm Subjective Constitutional: Denies: no symptoms, chills, diaphoresis, fever, malaise, weakness, other HEENT: Denies: no symptoms, eye pain, blurred vision, tearing, double vision, ear pain, ear discharge, nose pain, nose congestion, throat pain, throat swelling, mouth pain, mouth swelling, other Cardiovascular: Denies: no symptoms, chest pain, edema, irregular heart rate, lightheadedness, palpitations, syncope, other Respiratory: Denies: no symptoms, cough, orthopnea, shortness of breath, SOB with excertion, SOB at rest, sputum, stridor, wheezing, other Genitourinary: Denies: no symptoms, burning, discharge, frequency, flank pain, hematuria, incontinence, pain, urgency, other 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: Denies: no symptoms, anxiety, depressed, emotional problems, headache, numbness, paresthesia, pre-existing deficit, seizure, tingling, tremors, weakness, other Allergies: Coded Allergies: VANCOMYCIN (Verified Allergy, Mild, Redness , 10/29/18) CIPROFLOXACIN (Verified Allergy, Unknown, 08/23/15) Subjective 10/31: dc to med surg from icu, doing better Objective Last 24 Hour Vital Signs Date Time Temp Pulse Resp B/P (MAP) Pulse Ox O2 Delivery O2 Flow Rate FiO2 10/31/18 14:00 100 23 158/101 (120) 95 10/31/18 13:00 99 19 137/96 (110) 99 10/31/18 12:00 Room Air 10/31/18 12:00 98.7 95 23 121/85 (97) 99 10/31/18 12:00 87 10/31/18 11:00 96 22 125/86 (99) 99 10/31/18 10:00 98 24 127/80 (96) 100 10/31/18 09:00 84 20 113/78 (90) 100 10/31/18 08:00 82 21 123/75 (91) 100 10/31/18 08:00 90 10/31/18 08:00 Room Air 10/31/18 07:00 96 20 116/78 (91) 95 10/31/18 06:00 93 19 122/77 (92) 100 10/31/18 05:00 95 19 133/96 (108) 100 10/31/18 05:00 133/93 10/31/18 04:26 128/88 10/31/18 04:00 98.1 82 17 128/88 (101) 99 10/31/18 04:00 Room Air 10/31/18 04:00 88 10/31/18 04:00 128/88 10/31/18 03:00 121/75 10/31/18 02:00 117/93 10/31/18 01:00 117/79 10/31/18 01:00 82 16 117/79 (92) 100 10/31/18 00:30 85 18 107/73 (84) 100 10/31/18 00:00 97.3 89 17 108/72 (84) 97 10/31/18 00:00 Room Air 10/31/18 00:00 108/72 10/31/18 00:00 85 10/30/18 23:30 92 17 107/69 (82) 100 10/30/18 23:00 86 16 103/69 (80) 100 10/30/18 23:00 103/69 10/30/18 22:30 92 15 93/62 (72) 100 10/30/18 22:00 92/69 10/30/18 22:00 97.9 94 16 92/69 (77) 97 10/30/18 21:45 102 17 96/69 (78) 100 10/30/18 21:40 103 16 80/53 (62) 98 10/30/18 21:40 80/53 10/30/18 21:35 80/55 10/30/18 21:30 106 17 80/55 (63) 99 10/30/18 21:00 112 20 83/52 (62) 99 10/30/18 20:30 123 25 85/50 (62) 100 10/30/18 20:00 101.6 129 27 88/54 (65) 99 10/30/18 20:00 Room Air 10/30/18 19:36 101.6 10/30/18 19:33 124 20 99 Room Air 21 10/30/18 19:23 126 10/30/18 19:00 137 32 103/71 (82) 98 10/30/18 18:00 136 29 97/72 (80) 97 10/30/18 17:00 140 31 120/78 (92) 97 10/30/18 16:30 144 30 115/74 (88) 100 10/30/18 16:00 143 10/30/18 16:00 Room Air 10/30/18 16:00 100.1 148 29 142/112 (122) 90 Intake and Output 10/30/18 10/31/18 19:00 07:00 Intake Total 4359.8 ml 1008.1 ml Output Total 755 ml 535 ml Balance 3604.8 ml 473.1 ml Intake Free Water 675 ml IV Total 3644.8 ml 968.1 ml Other 40 ml 40 ml Output Urine Total 755 ml 535 ml Laboratory Tests 10/31/18 04:36: White Blood Count 17.1H, Red Blood Count 3.85L, Hemoglobin 11.0L, Hematocrit 34.6L, Mean Corpuscular Volume 90, Mean Corpuscular Hemoglobin 28.7, Mean Corpuscular Hemoglobin Concent 31.9L, Red Cell Distribution Width 14.1, Platelet Count 146L, Mean Platelet Volume 8.1, Neutrophils (%) (Auto) 78.4H, Lymphocytes (%) (Auto) 13.0L, Monocytes (%) (Auto) 8.2, Eosinophils (%) (Auto) 0.1, Basophils (%) (Auto) 0.3, Erythrocyte Sedimentation Rate 105H, Sodium Level 141, Potassium Level 3.8, Chloride Level 107, Carbon Dioxide Level 22, Anion Gap 12, Blood Urea Nitrogen 19H, Creatinine 1.2, Estimat Glomerular Filtration Rate > 60, Glucose Level 80, Uric Acid 5.5, Calcium Level 7.2L, Phosphorus Level 2.7, Magnesium Level 2.3, Total Bilirubin 0.4, Gamma Glutamyl Transpeptidase 14, Aspartate Amino Transf (AST/SGOT) 20, Alanine Aminotransferase (ALT/SGPT) 10L, Alkaline Phosphatase 72, C-Reactive Protein, Quantitative 31.2H, Pro-B-Type Natriuretic Peptide 4719H, Total Protein 7.4, Albumin 2.0L, Globulin 5.4, Albumin/Globulin Ratio 0.4L, Cortisol AM Sample [ Pending] Height (Feet): 5 Height (Inches): 8.00 Weight (Pounds): 222 Objective Physical Exam General Appearance: A+O x3, NAD HEENT: normocephalic, atraumatic Neck: non-tender, normal alignment Respiratory/Chest: chest wall non-tender, lungs clear Cardiovascular/Chest: normal peripheral pulses, normal rate Abdomen: normal bowel sounds, non tender ++ peg Extremities: normal range of motion Nathan Ludwig MD Oct 31, 2018 15:05
--- NOTE | 2018-10-31 17:00 | NUR ---
NURSE NOTES: report given to CANDI roger. patient transferred to [facility]-, no belongings with patient and belongings list signed, patient denies any pain over abdominal or chest region, patient is awake and alert and able to word one word answers, he is able to track staff and move upper arms. suprapubic catheter remains draining clear straw urine, abdominal wound covered with optifoam.
--- NOTE | 2018-10-31 17:16 | NUR ---
NURSE NOTES: Received report from Quentin RN/ICU. pt awake, A/O x 1-2, calm. VS stable. GTube in place , clamped, dressing on abd, CDI. Superpubic cath in place, draining around the site. femoral line [address], TKO. pts scar LE contracted. seizure, fall and asp precaution maintained. suction PRN. iso precaution maintained. fall precaution maintained. will continue to monitor.
[2018-10-31] MEDS ORDERED: Albuterol/Ipratropium 3ml neb HHN PRN (17:30)
[2018-10-31] MEDS ORDERED: DiphenhydrAMINE 50mg/ml Inj IVP PRN (17:30)
[2018-10-31] MEDS ORDERED: Miralax 17gm pkt ORAL PRN (17:30)
[2018-10-31] MEDS ORDERED: Morphine Sulfate 2mg/ml Inj(IV/IM USE ONLY) IVP PRN (17:30)
--- NOTE | 2018-10-31 19:44 | NUR ---
NURSE NOTES: Pt awake, A/O x 1, calm at this time. GTube clamped, dressing on GT site dry, intact, Suprapubic cath in place, draining around the site with a pouch to cover the site. femoral line triple lumens in place, TKO. Bilateral LE contracted. seizure, fall and asp precaution in place. suction at bedside, PRN. iso precaution maintained. bed locked in lowest position, side rails x3, bed alarm on, call light within reach. Will continue to monitor.
[2018-10-31] MEDS ORDERED: Dyna-Hex 2% Top Sol 2oz TOPIC SCH (20:00)
[2018-10-31] MEDS ORDERED: Vancomycin 750 MG in NS 275 ML IVPB SCH (22:00)
[2018-10-31] MEDS ORDERED: Vancomycin 750mg/NS 275ml IVPB SCH ×2 (22:00)
[2018-11-01] VITALS (7 sets, daily range): BP systolic 75–157; BP diastolic 48–98
[2018-11-01] MEDS: Meropenem 1 GM in NS 110 ML IVPB SCH ×3 (00:05→16:15)
--- NOTE | 2018-11-01 04:45 | NUR ---
NURSE NOTES: Called Dr Macario and left a voicemail with the exchange. I am concerned as pt respiration are quick and shallow, tachypneic at 28-30, tachycardic at 136, temp 102.1, 98/52. left voicemail of concern about the patient. will await response from ID doctor.
--- NOTE | 2018-11-01 05:50 | NUR ---
NURSE NOTES: Left message for Dr Bryant regarding pt's change in condition. gave tylenol and fever persists vital signs are altered and awaiting response from Manny if pt requires higher level of care. Will endorse to day shift if no response
--- NOTE | 2018-11-01 07:30 | NUR ---
HAND-OFF: Report given to CANDI Rodrigez.
--- NOTE | 2018-11-01 07:57 | NUR ---
NURSE NOTES: HANDOFF RECEIVED FROM CANDI SUMMERS. PATIENT RECEIVED RESTING IN BED. CALL LIGHT IN REACH AND BED IN LOCKED AND LOWEST POSITION. NIGHT NURSE SPOKE TO DR ABOUT TRANSFERRING PATIENT TO EV DUE TO THE NEED FOR HIGHER LEVEL OF CARE.
--- NOTE | 2018-11-01 08:08 | NUR ---
NURSE NOTES: left msg for dr Bryant re bp at this time, and if we can do ivf bolus, awaiting response pt is nonverbal but follows commands , no sob. no distress. will monitor.
--- NOTE | 2018-11-01 08:28 | Diagnostic Imaging Report ---
Indication: Cough Technique: One view of the chest Comparison: 10/30/2017 Findings: Lung volumes are low. Prominent bronchovascular markings in the right perihilar region are unchanged. No new infiltrates or effusions. Heart size is upper limits normal. Findings are unchanged Impression: Unchanged, over 2 days, findings as above.
--- NOTE | 2018-11-01 08:31 | NUR ---
NURSE NOTES: CHARGE NURSE SPOKE TO DOCTOR AND GOT AN ORDER FOR A BOLUS 500ML TO HELP RAISE PATIENTS BLOOD PRESSURE.
--- NOTE | 2018-11-01 08:32 | NUR ---
RADIOLOGY DEPT., CHEST X-RAY DONE.-P.DYE
--- NOTE | 2018-11-01 08:49 | NUR ---
NURSE NOTES: relayed to dr Bear re bp and hr , received order for bolus ns 500x1, relayed to Dr Sanya hutchinson bp and hr, pt receiving bolus at this time, per md transfer pt to [facility] made aware , awaiting bed. patient in no distress 98% on 2lnc
[2018-11-01] MEDS: Heparin 5000 units/ml inj SUBQ SCH ×2 (09:00→20:32)
[2018-11-01] MEDS ORDERED: Amikacin Rx to dose MISC PRN (09:00)
--- NOTE | 2018-11-01 09:10 | General Progress Note ---
Assessment/Plan Status: unchanged Assessment/Plan: (1) Obstructive hydrocephalus ICD Codes: G91.1 - Obstructive hydrocephalus SNOMED: 088382575 (2) COPD (chronic obstructive pulmonary disease) ICD Codes: J44.9 - Chronic obstructive pulmonary disease, unspecified SNOMED: 04700587 (3) Diabetes mellitus ICD Codes: E11.9 - Type 2 diabetes mellitus without complications SNOMED: 28918808 (4) Feeding by G-tube ICD Codes: Z93.1 - Gastrostomy status SNOMED: 388822503, 669026806 (5) Sepsis ICD Codes: A41.9 - Sepsis, unspecified organism SNOMED: 09821657 (6) History of CVA (cerebrovascular accident) ICD Codes: Z86.73 - Personal history of transient ischemic attack (TIA), and cerebral infarction without residual deficits SNOMED: 605945894 (7) Encephalopathy chronic ICD Codes: G93.49 - Other encephalopathy SNOMED: 11399731 (8) UTI (urinary tract infection) ICD Codes: N39.0 - Urinary tract infection, site not specified SNOMED: 42332783 Qualifiers: Qualified Codes: N30.00 - Acute cystitis without hematuria (9) Septic shock ICD Codes: A41.9 - Sepsis, unspecified organism; R65.21 - Severe sepsis with septic shock SNOMED: 64105110 (10) ATN (acute tubular necrosis) ICD Codes: N17.0 - Acute kidney failure with tubular necrosis SNOMED: 18398762 Status: unchanged --> now med surg floor today, seen by cards, pulm --> now has been started on amikacin and vanc for septic shock --> id and cards recs reviewed Subjective HEENT: Denies: no symptoms, eye pain, blurred vision, tearing, double vision, ear pain, ear discharge, nose pain, nose congestion, throat pain, throat swelling, mouth pain, mouth swelling, other Cardiovascular: Denies: no symptoms, chest pain, edema, irregular heart rate, lightheadedness, palpitations, syncope, other Respiratory: Denies: no symptoms, cough, orthopnea, shortness of breath, SOB with excertion, SOB at rest, sputum, stridor, wheezing, other Gastrointestinal/Abdominal: Denies: no symptoms, abdomen distended, abdominal pain, black stools, tarry stools, blood in stool, constipated, diarrhea, difficulty swallowing, nausea, poor appetite, poor fluid intake, rectal bleeding , vomiting, other Genitourinary: Denies: no symptoms, burning, discharge, frequency, flank pain, hematuria, incontinence, pain, urgency, other 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: Denies: no symptoms, anxiety, depressed, emotional problems, headache, numbness, paresthesia, pre-existing deficit, seizure, tingling, tremors, weakness, other Endocrine: Denies: no symptoms, excessive sweating, flushing, intolerance to cold, intolerance to heat, increased hunger, increased thirst, increased urine, unexplained weight gain, unexplained weight loss, other Allergies: Coded Allergies: VANCOMYCIN (Verified Allergy, Mild, Redness , 10/29/18) CIPROFLOXACIN (Verified Allergy, Unknown, 08/23/15) Subjective 10/31: dc to med surg from icu, doing better 11/01: given 500cc ns for low bp, pcp was made aware as well as cards Objective Last 24 Hour Vital Signs Date Time Temp Pulse Resp B/P (MAP) Pulse Ox O2 Delivery O2 Flow Rate FiO2 11/01/18 08:07 97.5 111 20 75/48 (57) 98 11/01/18 06:05 102.6 11/01/18 04:00 102.1 136 20 98/52 (67) 98 11/01/18 00:20 112 20 99 Nasal Cannula 2.0 28 11/01/18 00:11 109 20 97 Nasal Cannula 2.0 28 11/01/18 00:00 99.1 100 20 157/97 (117) 98 10/31/18 23:27 Room Air 10/31/18 20:00 99.5 112 18 132/80 (97) 97 10/31/18 19:50 104 20 98 Room Air 21 10/31/18 18:00 98.3 99 20 135/87 (103) 99 10/31/18 17:48 Room Air 10/31/18 17:15 98.3 99 20 135/87 (103) 99 10/31/18 16:00 108 10/31/18 16:00 Room Air 10/31/18 16:00 108 24 140/93 (109) 100 10/31/18 15:00 98.1 104 27 137/86 (103) 100 10/31/18 14:00 100 23 158/101 (120) 95 10/31/18 13:00 99 19 137/96 (110) 99 10/31/18 12:00 Room Air 10/31/18 12:00 98.7 95 23 121/85 (97) 99 10/31/18 12:00 87 10/31/18 11:00 96 22 125/86 (99) 99 10/31/18 10:00 98 24 127/80 (96) 100 Intake and Output 10/31/18 11/01/18 18:59 06:59 Intake Total 549.8 ml Output Total 485 ml 1000 ml Balance 64.8 ml -1000 ml Intake Free Water 130 ml IV Total 389.8 ml Other 30 ml Output Urine Total 485 ml 1000 ml # Voids 1 # Bowel Movements 1 Height (Feet): 5 Height (Inches): 8.00 Weight (Pounds): 244 Objective Physical Exam General Appearance: A+O x3, NAD HEENT: normocephalic, atraumatic Neck: non-tender, normal alignment Respiratory/Chest: chest wall non-tender, lungs clear Cardiovascular/Chest: normal peripheral pulses, normal rate Abdomen: normal bowel sounds, non tender ++ peg Extremities: normal range of motion Nathan Ludwig MD Nov 01, 2018 09:10
[2018-11-01] MEDS: Docusate 100mg cap ORAL SCH (09:42)
--- NOTE | 2018-11-01 10:20 | NUR ---
NURSE NOTES: Patient arrived to unit via hospital bed accompanied with RN. Report received from CANDI Payan. Pt. is alert and oriented x 1 by his name only. No s/s of pain at this time. No belongings noted. shelter monitor applied to the patient. Vitals checked. Skin assessment done and noted with blister around GT site. GT site intact and patent. Suprapubic catheter intact and draining well. Bed in lowest position. Call light within reach. Will continue to monitor.
--- NOTE | 2018-11-01 10:30 | NUR ---
NURSE NOTES: Called and spoke with Dr. Macario regarding vancomycin order. Pt. has allergy to Vancomycin and he has been getting vancomycin. Dr. Macario said she aware of it and she spoke with pharmacist before so it is okay to give it to the patient. Order carried out.
--- NOTE | 2018-11-01 10:34 | NUR ---
NURSE NOTES: PATIENT TRANSFERRED TO EV, REPORT GIVEN TO CANDI TRAYLOR.
[2018-11-01] MEDS ORDERED: Vancomycin 750 MG in NS 275 ML IVPB SCH (10:45)
--- NOTE | 2018-11-01 10:45 | NUR ---
RD ASSESSMENT & RECOMMENDATIONS SEE CARE ACTIVITY FOR COMPLETE ASSESSMENT DAILY ESTIMATED NEEDS: Needs based on Sepsis/ 77kg abw 25-30 kcals/kg 1161-5950 total kcals 1-2 g protein/kg 77-154 g total protein 25-30 mL/kg 1769-6799 total fluid mLs NUTRITION DIAGNOSIS: 1) Swallowing difficulty related to dysphagia s/p cva as evidenced by pt dependent on PEG for all nutrition and hydration needs. CURRENT TF:Glucerna 1.5 @ 55ml/hr x 24 hrs ENTERAL NUTRITION RECOMMENDATIONS: Glucerna 1.5 @ 55ml/hr x 24 hrs to provide 1320ml, 1980kcal, 109g prot, 1002ml free water * Initiate Glucerna 1.5 @ 25ml/hr x 6 hrs, advance 10ml q 4-6 hrs as tolerated to goal. * HOB over 30 degrees/ water flush per MD. FEED WITH HEMODYNAMIC STABILITY ADDITIONAL RECOMMENDATIONS: 1) Calibrated bedscale wt for accurate CBW 2) Monitor lytes, replete as needed 3) NISS/ accuchecks w/ TF for BG control- h/o DM 4) Rec wound eval ( wound photos noted) 5) Monitor HD stability: low BP 11/01, txr'ed to SDU
--- NOTE | 2018-11-01 11:13 | Infectious Diseases Prog Note ---
Assessment/Plan Assessment/Plan Assessment: Septic shock- likely 2ryt o UTI c/w bacteremia- off pressors now -probable pNA -S.aureus bacteremia- r/o MRSA, r/o endocarditis -10/30 CXR: Right perihilar disease possibly atelectasis or pneumonia. No change -repeat u/a wbc tnct, nit +, leuk +3 -u/a wbc 19-15, nit +, leuk +2; ucx >100k P. mirabilis, probabel ESBL (S Genta, Ertapenem, Zosyn) -CXR: Low lung volumes with right perihilar atelectatic changes. No definite acute process -10/29 Bcx / P. mirabilis (neri S), S. aureus (sensi pending); repeat Bcx NTD; 10/30 BCxx 2/4 GNR -sp cx PsA (neri S), Staph aureus (sensi P) -2d Echo: no vegeatiosn Fever; ongoing Leukocytosis; improving GILDARDO, improving hx of UTI -07/2018 ucx E. fecalis (neri S), P. mirabilis -03/2019 ucx PsA CVA/TIA Dm2 CKD suprapubic catheter DVT hypertensive heart disease [place] resident Plan: -D/c empiric Amikacin #4 -Continue Meropenem #4 for probable ESBL Proteus, UTI, neri S Proteus bactremia and PsA PNA -Continue empiric IV Vancomycin #3 pending S. aureus sensi -10/29 SP Ertapenem #1, IV Vancomycin x1 -f/u cx -Monitor CBC/CMP, temperatures -aspiration precautions -will obtain CT abd/p w/ contrast once Cr improves -Will need TASNEEM -Bcxx 2 Thank you for this consultation. Will continue to follow along with you. Discussed with RN. Subjective Allergies: Coded Allergies: VANCOMYCIN (Verified Allergy, Mild, Redness , 10/29/18) CIPROFLOXACIN (Verified Allergy, Unknown, 08/23/15) Subjective Tm 102.5 repaet Bcx GNR leukocytosis;no cbc today yet Objective Vital Signs Last 24 Hour Vital Signs Date Time Temp Pulse Resp B/P (MAP) Pulse Ox O2 Delivery O2 Flow Rate FiO2 11/01/18 09:17 Room Air 11/01/18 09:17 97.5 98 20 107/60 (76) 98 11/01/18 08:07 97.5 111 20 75/48 (57) 98 11/01/18 06:05 102.6 11/01/18 04:00 102.1 136 20 98/52 (67) 98 11/01/18 00:20 112 20 99 Nasal Cannula 2.0 28 11/01/18 00:11 109 20 97 Nasal Cannula 2.0 28 11/01/18 00:00 99.1 100 20 157/97 (117) 98 10/31/18 23:27 Room Air 10/31/18 20:00 99.5 112 18 132/80 (97) 97 10/31/18 19:50 104 20 98 Room Air 21 10/31/18 18:00 98.3 99 20 135/87 (103) 99 10/31/18 17:48 Room Air 10/31/18 17:15 98.3 99 20 135/87 (103) 99 10/31/18 16:00 108 10/31/18 16:00 Room Air 10/31/18 16:00 108 24 140/93 (109) 100 10/31/18 15:00 98.1 104 27 137/86 (103) 100 10/31/18 14:00 100 23 158/101 (120) 95 10/31/18 13:00 99 19 137/96 (110) 99 10/31/18 12:00 Room Air 10/31/18 12:00 98.7 95 23 121/85 (97) 99 10/31/18 12:00 87 10/31/18 11:00 96 22 125/86 (99) 99 Height (Feet): 5 Height (Inches): 8.00 Weight (Pounds): 244 Objective General Appearance: WD/WN, no apparent distress Lines, tubes and drains: peripheral, central line, gtube HEENT: normocephalic, atraumatic, anicteric Neck: non-tender, normal alignment Respiratory/Chest: chest wall non-tender, lungs clear Cardiovascular/Chest: normal peripheral pulses, normal rate Abdomen: normal bowel sounds Extremities: normal range of motion Microbiology Date/Time Source Procedure Growth Status 10/30/18 16:45 Blood Blood Culture - Preliminary Gram Negative Bacillus 1 Resulted 10/30/18 16:30 Blood Blood Culture - Preliminary Gram Negative Bacillus 1 Resulted Current Medications Medications (Trade) Dose Ordered Sig/Fab Route PRN Reason Start Time Stop Time Status Last Admin Dose Admin Acetaminophen (Tylenol) 650 mg Q4H PRN ORAL fever (temp>100.5 F) 11/01/18 13:30 11/28/18 17:29 Albuterol/ Ipratropium (Albuterol/ Ipratropium) 3 ml Q4H PRN HHN Shortness of Breath 11/01/18 13:30 11/03/18 17:29 Amikacin Protocol (Amikacin pharmacy to dose) 1 ea DAILY PRN MISC PER RX PROTOCOL 11/02/18 09:00 11/28/18 07:44 Amikacin Sulfate 1200 mg/Sodium Chloride 279.8 ml @ 559.6 mls/ hr Q24H IV 11/01/18 13:00 11/06/18 12:59 Chlorhexidine Gluconate (Licha-Hex 2%) 1 applic DAILY@2000 TOPIC 11/01/18 20:00 11/29/18 19:59 Diphenhydramine HCl (Benadryl) 25 mg Q6H PRN IVP Itching 11/01/18 11:30 11/28/18 17:29 Docusate Sodium (Colace) 100 mg THREE TIMES A DAY ORAL 11/01/18 13:00 11/28/18 17:59 Famotidine (Pepcid) 20 mg Q12HR ORAL 11/01/18 21:00 11/29/18 20:59 Heparin Sodium (Porcine) (Heparin 5000 units/ml) 5,000 units EVERY 12 HOURS SUBQ 11/01/18 21:00 11/28/18 08:59 Meropenem 1 gm/ Sodium Chloride 110 ml @ 220 mls/hr Q8HR@0100,0900,1700 IVPB 11/01/18 17:00 11/05/18 09:59 Midodrine (Pro-Amatine) 2.5 mg THREE TIMES A DAY GT 11/01/18 13:00 11/29/18 17:59 Morphine Sulfate (Morphine Sulfate) 2 mg Q4H PRN IVP Severe Pain (Pain Scale 7-10) 11/01/18 13:30 11/05/18 17:29 Ondansetron HCl (Zofran) 4 mg Q6H PRN IVP Nausea & Vomiting 11/01/18 11:30 11/28/18 17:29 Polyethylene Glycol (Miralax) 17 gm DAILYPRN PRN ORAL Constipation 11/01/18 17:30 11/30/18 17:29 Vancomycin HCl (Vanco rx to dose) 1 ea DAILY PRN MISC Per rx protocol 11/02/18 09:00 11/30/18 10:14 Vancomycin HCl 750 mg/Sodium Chloride 275 ml @ 110 mls/hr Q12HR@1000,2200 IVPB 11/01/18 10:45 11/05/18 10:44 Dorothea Macario M.D. Nov 01, 2018 11:13
--- NOTE | 2018-11-01 11:24 | Pulmonology Progress Note ---
Assessment/Plan Problems: (1) Septic shock (2) ATN (acute tubular necrosis) (3) COPD (chronic obstructive pulmonary disease) (4) Encephalopathy chronic (5) Obstructive hydrocephalus (6) History of DVT (deep vein thrombosis) (7) Suprapubic catheter (8) Aphasia (9) Feeding by G-tube (10) History of CVA (cerebrovascular accident) Assessment/Plan persistent bacteremia still tachy continue abx respiratory treatment titrate fio2 to sat of 92% renal function better. Subjective ROS Limited/Unobtainable: No Allergies: Coded Allergies: VANCOMYCIN (Verified Allergy, Mild, Redness , 10/29/18) CIPROFLOXACIN (Verified Allergy, Unknown, 08/23/15) Objective Last 24 Hour Vital Signs Date Time Temp Pulse Resp B/P (MAP) Pulse Ox O2 Delivery O2 Flow Rate FiO2 11/01/18 09:17 Room Air 11/01/18 09:17 97.5 98 20 107/60 (76) 98 11/01/18 08:07 97.5 111 20 75/48 (57) 98 11/01/18 06:05 102.6 11/01/18 04:00 102.1 136 20 98/52 (67) 98 11/01/18 00:20 112 20 99 Nasal Cannula 2.0 28 11/01/18 00:11 109 20 97 Nasal Cannula 2.0 28 11/01/18 00:00 99.1 100 20 157/97 (117) 98 10/31/18 23:27 Room Air 10/31/18 20:00 99.5 112 18 132/80 (97) 97 10/31/18 19:50 104 20 98 Room Air 21 10/31/18 18:00 98.3 99 20 135/87 (103) 99 10/31/18 17:48 Room Air 10/31/18 17:15 98.3 99 20 135/87 (103) 99 10/31/18 16:00 108 10/31/18 16:00 Room Air 10/31/18 16:00 108 24 140/93 (109) 100 10/31/18 15:00 98.1 104 27 137/86 (103) 100 10/31/18 14:00 100 23 158/101 (120) 95 10/31/18 13:00 99 19 137/96 (110) 99 10/31/18 12:00 Room Air 10/31/18 12:00 98.7 95 23 121/85 (97) 99 10/31/18 12:00 87 Intake and Output 10/31/18 11/01/18 19:00 07:00 Intake Total 549.8 ml Output Total 430 ml 1000 ml Balance 119.8 ml -1000 ml Intake Free Water 130 ml IV Total 389.8 ml Other 30 ml Output Urine Total 430 ml 1000 ml # Voids 1 # Bowel Movements 1 General Appearance: WD/WN HEENT: normocephalic, anicteric Respiratory/Chest: chest wall non-tender, lungs clear Cardiovascular: normal peripheral pulses, regular rhythm Abdomen: normal bowel sounds, no organomegaly Genitourinary: normal external genitalia Skin: no lesions Microbiology Date/Time Source Procedure Growth Status 10/30/18 16:45 Blood Blood Culture - Preliminary Gram Negative Bacillus 1 Resulted 10/30/18 16:30 Blood Blood Culture - Preliminary Gram Negative Bacillus 1 Resulted Current Medications Medications (Trade) Dose Ordered Sig/Fab Route PRN Reason Start Time Stop Time Status Last Admin Dose Admin Acetaminophen (Tylenol) 650 mg Q4H PRN ORAL fever (temp>100.5 F) 11/01/18 13:30 11/28/18 17:29 Albuterol/ Ipratropium (Albuterol/ Ipratropium) 3 ml Q4H PRN HHN Shortness of Breath 11/01/18 13:30 11/03/18 17:29 Amikacin Protocol (Amikacin pharmacy to dose) 1 ea DAILY PRN MISC PER RX PROTOCOL 11/02/18 09:00 11/28/18 07:44 Chlorhexidine Gluconate (Licha-Hex 2%) 1 applic DAILY@1999 TOPIC 11/01/18 20:00 11/29/18 19:59 Diphenhydramine HCl (Benadryl) 25 mg Q6H PRN IVP Itching 11/01/18 11:30 11/28/18 17:29 Docusate Sodium (Colace) 100 mg THREE TIMES A DAY ORAL 11/01/18 13:00 11/28/18 17:59 Famotidine (Pepcid) 20 mg Q12HR ORAL 11/01/18 21:00 11/29/18 20:59 Heparin Sodium (Porcine) (Heparin 5000 units/ml) 5,000 units EVERY 12 HOURS SUBQ 11/01/18 21:00 11/28/18 08:59 Meropenem 1 gm/ Sodium Chloride 110 ml @ 220 mls/hr Q8HR@0100,0900,1700 IVPB 11/01/18 17:00 11/05/18 09:59 Midodrine (Pro-Amatine) 2.5 mg THREE TIMES A DAY GT 11/01/18 13:00 11/29/18 17:59 Morphine Sulfate (Morphine Sulfate) 2 mg Q4H PRN IVP Severe Pain (Pain Scale 7-10) 11/01/18 13:30 11/05/18 17:29 Ondansetron HCl (Zofran) 4 mg Q6H PRN IVP Nausea & Vomiting 11/01/18 11:30 11/28/18 17:29 Polyethylene Glycol (Miralax) 17 gm DAILYPRN PRN ORAL Constipation 11/01/18 17:30 11/30/18 17:29 Vancomycin HCl (Vanco rx to dose) 1 ea DAILY PRN MISC Per rx protocol 11/02/18 09:00 11/30/18 10:14 Vancomycin HCl 750 mg/Sodium Chloride 275 ml @ 110 mls/hr Q12HR@1000,2200 IVPB 11/01/18 10:45 11/05/18 10:44 Rigoberto Bryant MD Nov 01, 2018 11:24
[2018-11-01] MEDS ORDERED: DiphenhydrAMINE 50mg/ml Inj IVP PRN (11:30)
[2018-11-01] MEDS ORDERED: 1/2 NS 1000ml IV ONE (11:37)
[2018-11-01] MEDS ORDERED: Tubing IV Secondary IV ONE (11:37)
[2018-11-01] MEDS ORDERED: NS 275ml ONE (11:37)
[2018-11-01] MEDS ORDERED: NS Irrig 1000ml ONE (11:37)
--- NOTE | 2018-11-01 12:10 | NUR ---
NURSE NOTES: Informed Dr. Macario that lab was not able to draw blood peripherally for blood culture with no new order at this time.
--- NOTE | 2018-11-01 12:18 | Nephrology Progress Note ---
Assessment/Plan Problem List: (1) GILDARDO (acute kidney injury) (2) Septic shock (3) Suprapubic catheter (4) History of CVA (cerebrovascular accident) Assessment Acute renal failure- resolved Septic shock on presentation CVA Suprapubic cath / ? Neurogenic bladder HTN DVT UTI Plan stop Hydrate midodrine avoid nephrotoxics monitor renal parameters med surg? per orders Subjective ROS Limited/Unobtainable: No Constitutional: Reports: malaise, weakness Objective Objective Last 24 Hour Vital Signs Date Time Temp Pulse Resp B/P (MAP) Pulse Ox O2 Delivery O2 Flow Rate FiO2 11/01/18 09:17 Room Air 11/01/18 09:17 97.5 98 20 107/60 (76) 98 11/01/18 08:07 97.5 111 20 75/48 (57) 98 11/01/18 06:05 102.6 11/01/18 04:00 102.1 136 20 98/52 (67) 98 11/01/18 00:20 112 20 99 Nasal Cannula 2.0 28 11/01/18 00:11 109 20 97 Nasal Cannula 2.0 28 11/01/18 00:00 99.1 100 20 157/97 (117) 98 10/31/18 23:27 Room Air 10/31/18 20:00 99.5 112 18 132/80 (97) 97 10/31/18 19:50 104 20 98 Room Air 21 10/31/18 18:00 98.3 99 20 135/87 (103) 99 10/31/18 17:48 Room Air 10/31/18 17:15 98.3 99 20 135/87 (103) 99 10/31/18 16:00 108 10/31/18 16:00 Room Air 10/31/18 16:00 108 24 140/93 (109) 100 10/31/18 15:00 98.1 104 27 137/86 (103) 100 10/31/18 14:00 100 23 158/101 (120) 95 10/31/18 13:00 99 19 137/96 (110) 99 Intake and Output 10/31/18 11/01/18 19:00 07:00 Intake Total 549.8 ml Output Total 430 ml 1000 ml Balance 119.8 ml -1000 ml Intake Free Water 130 ml IV Total 389.8 ml Other 30 ml Output Urine Total 430 ml 1000 ml # Voids 1 # Bowel Movements 1 Height (Feet): 5 Height (Inches): 8.00 Weight (Pounds): 244 General Appearance: no apparent distress Objective no change Pranav Grady MD Nov 01, 2018 12:18
--- NOTE | 2018-11-01 12:40 | NUR ---
DIRECTOR SUPPLY CHAINPAINTER MIRROR SI: SEPTICK SHOCK T. 102.1 HR 136 RR 20 B/P 74/48 RA 98% IS: MEROPENEM IV VANCO IV MIDODRINE PO STEP DOWN STATUS
[2018-11-01] MEDS ORDERED: Amikacin 1,200 MG in NS 275 ML IV SCH ×4 (13:00)
[2018-11-01] MEDS ORDERED: Docusate 100mg cap ORAL SCH (13:00)
[2018-11-01] MEDS ORDERED: Albuterol/Ipratropium 3ml neb HHN PRN (13:30)
[2018-11-01] MEDS ORDERED: Morphine Sulfate 2mg/ml Inj(IV/IM USE ONLY) IVP PRN (13:30)
--- NOTE | 2018-11-01 15:43 | Cardiac Electrophysiology PN ---
Assessment/Plan Assessment/Plan 1. Shock, likely due to septic shock as well as dehydration as sodium is high and BUN and creatinine is also elevated. Lactic acidosis 2.4. Now off Levophed and on IV antibiotics Echo Nl EF 2. Sinus tach 140s likely due to sepsis with fever and sinus tach 3. Inferior wall myocardial infarction based on electrocardiogram. Ruled out for myocardial infarction. Echocardiogram EF 65% 4. Hypernatremia. 5. Renal failure. 6. CVA with paraplegia. 7. Status post suprapubic catheter. COLLETTE RN and Transferred to SDU Subjective Subjective Transferred to [facility] and transferred back to SDU as BP dropped to 70s. Now febrile with T 102 and tachycardic with HR 145 Objective Last 24 Hour Vital Signs Date Time Temp Pulse Resp B/P (MAP) Pulse Ox O2 Delivery O2 Flow Rate FiO2 11/01/18 15:35 100.2 138 21 108/72 (84) 97 11/01/18 12:00 141 11/01/18 12:00 Nasal Cannula 2.0 11/01/18 11:30 97.8 112 23 147/98 (114) 99 11/01/18 09:17 Room Air 11/01/18 09:17 97.5 98 20 107/60 (76) 98 11/01/18 08:07 97.5 111 20 75/48 (57) 98 11/01/18 06:05 102.6 11/01/18 04:00 102.1 136 20 98/52 (67) 98 11/01/18 00:20 112 20 99 Nasal Cannula 2.0 28 11/01/18 00:11 109 20 97 Nasal Cannula 2.0 28 11/01/18 00:00 99.1 100 20 157/97 (117) 98 10/31/18 23:27 Room Air 10/31/18 20:00 99.5 112 18 132/80 (97) 97 10/31/18 19:50 104 20 98 Room Air 21 10/31/18 18:00 98.3 99 20 135/87 (103) 99 10/31/18 17:48 Room Air 10/31/18 17:15 98.3 99 20 135/87 (103) 99 10/31/18 16:00 108 10/31/18 16:00 Room Air 10/31/18 16:00 108 24 140/93 (109) 100 Intake and Output 10/31/18 11/01/18 19:00 07:00 Intake Total 549.8 ml Output Total 430 ml 1000 ml Balance 119.8 ml -1000 ml Intake Free Water 130 ml IV Total 389.8 ml Other 30 ml Output Urine Total 430 ml 1000 ml # Voids 1 # Bowel Movements 1 Microbiology Date/Time Source Procedure Growth Status 10/30/18 16:45 Blood Blood Culture - Preliminary Gram Negative Bacillus 1 Resulted 10/30/18 16:30 Blood Blood Culture - Preliminary Gram Negative Bacillus 1 Resulted Objective HEAD AND NECK: No JVD. LUNGS: Coarse rhonchi. CARDIOVASCULAR: Tachycardic S1, S2 with no gallop. ABDOMEN: Soft, status post suprapubic catheter. EXTREMITIES: Bilateral lower extremity _. The arm is also contracted. Darnell Segundo MD Nov 01, 2018 15:43
--- NOTE | 2018-11-01 15:48 | NUR ---
NURSE NOTES: Spoke with Dr. Macario that patient's face became so red and has fever 100.2. Pt. is tachycardia HR is 140' with decreased in BP. Dr. Macario said to discontinue Vancomycin and change it to other ATB. Order carried out. Ice pack applied and Tylenol given as ordered. Will continue to monitor.
[2018-11-01] MEDS ORDERED: Miralax 17gm pkt ORAL PRN (17:30)
[2018-11-01] MEDS: Docusate 100mg/10ml Liq GT SCH (17:31)
--- NOTE | 2018-11-01 19:04 | NUR ---
HAND-OFF: Report given to CANDI Willams. Stable condition.
--- NOTE | 2018-11-01 19:10 | NUR ---
NURSE NOTES: Report received from CANDI Gil. Observed pt sleeping in bed. A/O x1. SR with night monitor. No signs of pain noted. On room air with no signs of sob. GT site, open blister noted, covered with optifoam, running Glucerna 1.5 at 40cc/hr. Goal is 55cc/hr, will increase if well tolerated. Suprapubic catheter on RRL, leaking noted. Central line at R femoral TLC, intact. Bed in the lowest position. Side rails up x3. Call light within reach. Will continue to monitor.
[2018-11-01] MEDS: Dyna-Hex 2% Top Sol 2oz TOPIC SCH (20:32)
--- NOTE | 2018-11-01 22:54 | NUR ---
NURSE NOTES: Observed pt lying in the bed. No distress noted at this time. SR with business segment manager. BM x1 noted, large amount of brown soft stool noted. Central dressing changed. Oral care done. Optifoam applied on sacral for protection. GT intact, no residual noted. Will continue to monitor.
[2018-11-02] VITALS: BP 113/74
[2018-11-02] MEDS: Meropenem 1 GM in NS 110 ML IVPB SCH ×2 (01:38→09:00)
[2018-11-02 04:00] VITALS: BP 125/88
[2018-11-02 05:37] LABS: HEMATOCRIT 28.8 % (42.0-52.0); HEMOGLOBIN 9.5 G/DL (14.2-18.0); MEAN CORPUSCULAR VOLUME 87 FL (80-99); PLATELET COUNT 111 K/UL (150-450); RED BLOOD COUNT 3.32 M/UL (4.70-6.10)
[2018-11-02 05:53] LABS: ALANINE AMINOTRANSFERASE 10 U/L (12-78); ALBUMIN 1.7 G/DL (3.4-5.0); ALBUMIN/GLOBULIN RATIO 0.4 (1.0-2.7); ALKALINE PHOSPHATASE 98 U/L (46-116); ANION GAP 11 mmol/L (5-15); ASPARTATE AMINO TRANSFERASE 27 U/L (15-37); BILIRUBIN,TOTAL 0.4 MG/DL (0.2-1.0); BLOOD UREA NITROGEN 22 mg/dL (7-18); CALCIUM 7.2 MG/DL (8.5-10.1); CARBON DIOXIDE 22 MMOL/L (21-32); CHLORIDE 110 MMOL/L (98-107); CREATININE 1.1 MG/DL (0.55-1.30); POTASSIUM 2.9 MMOL/L (3.5-5.1); SODIUM 143 MMOL/L (136-145)
--- NOTE | 2018-11-02 06:00 | NUR ---
NURSE NOTES: Left a message to Dr. Macario regarding same reaction from day shift. Around 0300 Pt's face became red and temperature went up to 102. Tyleonal and benadryl given. Applied ice packs. T is 99.2 now. Awaiting for call back.
--- NOTE | 2018-11-02 07:06 | Pulmonology Progress Note ---
Assessment/Plan Problems: (1) Septic shock (2) ATN (acute tubular necrosis) (3) COPD (chronic obstructive pulmonary disease) (4) Encephalopathy chronic (5) Obstructive hydrocephalus (6) History of DVT (deep vein thrombosis) (7) Suprapubic catheter (8) Aphasia (9) Feeding by G-tube (10) History of CVA (cerebrovascular accident) Assessment/Plan more stable persistent bacteremia less tachy continue abx, change abx because of possible adverse reaction to Merrem respiratory treatment titrate fio2 to sat of 92% renal function better. Subjective ROS Limited/Unobtainable: No Constitutional: Reports: no symptoms HEENT: Repors: no symptoms Allergies: Coded Allergies: VANCOMYCIN (Verified Allergy, Mild, Redness , 10/29/18) CIPROFLOXACIN (Verified Allergy, Unknown, 08/23/15) Objective Last 24 Hour Vital Signs Date Time Temp Pulse Resp B/P (MAP) Pulse Ox O2 Delivery O2 Flow Rate FiO2 11/02/18 06:36 74 18 97 Room Air 21 11/02/18 04:30 99.2 11/02/18 04:17 99.2 11/02/18 04:00 Nasal Cannula 2.0 11/02/18 04:00 138 11/02/18 04:00 102.0 136 24 125/88 (100) 96 11/02/18 00:00 90 11/02/18 00:00 97.8 90 20 113/74 (87) 96 11/02/18 00:00 Nasal Cannula 2.0 11/01/18 20:00 89 11/01/18 20:00 Nasal Cannula 2.0 11/01/18 20:00 98.9 90 20 103/60 (74) 96 11/01/18 19:30 90 20 97 Room Air 21 11/01/18 17:30 98.9 11/01/18 16:00 136 11/01/18 15:35 100.2 138 21 108/72 (84) 97 11/01/18 12:00 141 11/01/18 12:00 Nasal Cannula 2.0 11/01/18 11:30 97.8 112 23 147/98 (114) 99 11/01/18 09:17 Room Air 11/01/18 09:17 97.5 98 20 107/60 (76) 98 11/01/18 08:07 97.5 111 20 75/48 (57) 98 Intake and Output 11/01/18 11/02/18 19:00 07:00 Intake Total 925 ml 420 ml Output Total 200 ml Balance 725 ml 420 ml Intake Free Water 310 ml 150 ml IV Total 385 ml 110 ml Tube Feeding 230 ml 160 ml Output Urine Total 200 ml # Voids 2 # Bowel Movements 2 2 General Appearance: WD/WN HEENT: normocephalic, atraumatic Respiratory/Chest: chest wall non-tender, lungs clear Cardiovascular: normal peripheral pulses, regular rhythm Abdomen: soft, non tender, non distended Genitourinary: normal external genitalia Skin: no rash Microbiology Date/Time Source Procedure Growth Status 10/30/18 16:45 Blood Blood Culture - Preliminary Proteus Mirabilis Gram Positive Cocci Resulted 10/30/18 16:30 Blood Blood Culture - Final Proteus Mirabilis Complete Laboratory Tests 11/02/18 05:20: White Blood Count 22.0H, Red Blood Count 3.32L, Hemoglobin 9.5L, Hematocrit 28.8L, Mean Corpuscular Volume 87, Mean Corpuscular Hemoglobin 28.5, Mean Corpuscular Hemoglobin Concent 33.0, Red Cell Distribution Width 14.0, Platelet Count 111L, Mean Platelet Volume 8.1, Neutrophils (%) (Auto) , Lymphocytes (%) ( Auto) , Monocytes (%) (Auto) , Eosinophils (%) (Auto) , Basophils (%) (Auto) , Differential Total Cells Counted 100, Neutrophils % (Manual) 95H, Lymphocytes % (Manual) 2L, Monocytes % (Manual) 2, Eosinophils % (Manual) 0, Basophils % ( Manual) 0, Band Neutrophils 1, Platelet Estimate DecreasedL, Platelet Morphology Normal, Hypochromasia 2+, Anisocytosis 1+, Spherocytes 1+, Sodium Level 143, Potassium Level 2.9L, Chloride Level 110H, Carbon Dioxide Level 22, Anion Gap 11, Blood Urea Nitrogen 22H, Creatinine 1.1, Estimat Glomerular Filtration Rate > 60, Glucose Level 104, Uric Acid 6.1, Calcium Level 7.2L, Phosphorus Level 1.0L, Magnesium Level 1.9, Total Bilirubin 0.4, Aspartate Amino Transf (AST/SGOT) 27, Alanine Aminotransferase (ALT/SGPT) 10L, Alkaline Phosphatase 98, C-Reactive Protein, Quantitative 27.0H, Pro-B-Type Natriuretic Peptide 9506H, Total Protein 6.5, Albumin 1.7L, Globulin 4.8, Albumin/Globulin Ratio 0.4L Current Medications Medications (Trade) Dose Ordered Sig/Fab Route PRN Reason Start Time Stop Time Status Last Admin Dose Admin Acetaminophen (Tylenol) 650 mg Q4H PRN ORAL fever (temp>100.5 F) 11/01/18 13:30 11/28/18 17:29 11/02/18 03:47 Albuterol/ Ipratropium (Albuterol/ Ipratropium) 3 ml Q4H PRN HHN Shortness of Breath 11/01/18 13:30 11/03/18 17:29 Chlorhexidine Gluconate (Licha-Hex 2%) 1 applic DAILY@1999 TOPIC 11/01/18 20:00 11/29/18 19:59 11/01/18 20:32 Diphenhydramine HCl (Benadryl) 25 mg Q6H PRN IVP Itching 11/01/18 11:30 11/28/18 17:29 11/02/18 03:47 Docusate Sodium (Colace) 100 mg THREE TIMES A DAY GT 11/01/18 18:00 12/01/18 17:59 Famotidine (Pepcid) 20 mg Q12HR ORAL 11/01/18 21:00 11/29/18 20:59 11/01/18 20:32 Heparin Sodium (Porcine) (Heparin 5000 units/ml) 5,000 units EVERY 12 HOURS SUBQ 11/01/18 21:00 11/28/18 08:59 Linezolid (Zyvox) 600 mg EVERY 12 HOURS GT 11/01/18 21:00 11/06/18 20:59 11/01/18 20:32 Meropenem 1 gm/ Sodium Chloride 110 ml @ 220 mls/hr Q8HR@0100,0900,1700 IVPB 11/01/18 17:00 11/05/18 09:59 11/02/18 01:38 Midodrine (Pro-Amatine) 10 mg THREE TIMES A DAY GT 11/01/18 13:00 11/29/18 17:59 11/01/18 17:31 Morphine Sulfate (Morphine Sulfate) 2 mg Q4H PRN IVP Severe Pain (Pain Scale 7-10) 11/01/18 13:30 11/05/18 17:29 Ondansetron HCl (Zofran) 4 mg Q6H PRN IVP Nausea & Vomiting 11/01/18 11:30 11/28/18 17:29 Polyethylene Glycol (Miralax) 17 gm DAILYPRN PRN ORAL Constipation 11/01/18 17:30 11/30/18 17:29 Potassium Chloride (K-Dur) 40 meq ONCE ONCE GT 11/02/18 07:00 11/02/18 07:01 UNV Potassium Chloride (K-Dur) 40 meq ONCE ONCE GT 11/02/18 11:00 11/02/18 11:01 Rigoberto Barrientos MD Nov 02, 2018 07:06
--- NOTE | 2018-11-02 07:30 | NUR ---
HAND-OFF: Report given to CANDI Brenner. No distress noted at this time.
--- NOTE | 2018-11-02 07:38 | NUR ---
NURSE NOTES: received patient report from richard levin. patient is on bed awake. not in acute distress. aox1, by name. no arrythmias reported during the night. bed is low and locked for safety. will follow plan of care.
--- NOTE | 2018-11-02 07:44 | NUR ---
NURSE NOTES: left a message to dr gomez regarding merrem, that patient had reaction after infusion, facila nohemi, SOB and inc temp. that there is a merrem sched @ 0900 today. awaits callback as of this time.
[2018-11-02 08:00] VITALS: BP 105/69
[2018-11-02] MEDS: Docusate 100mg/10ml Liq GT SCH ×3 (08:43→17:05)
[2018-11-02] MEDS: Heparin 5000 units/ml inj SUBQ SCH ×2 (08:48→20:34)
[2018-11-02] MEDS ORDERED: Amikacin Rx to dose MISC PRN (09:00)
[2018-11-02] MEDS ORDERED: POTASSIUM PHOSPHATE IVPB ONE (09:45)
[2018-11-02] MEDS ORDERED: NS IVPB ONE (09:45)
[2018-11-02] MEDS ORDERED: D5NS 1000ml IV ONE (10:01)
[2018-11-02] MEDS ORDERED: 1/2 NS 1000ml IV ONE (10:01)
--- NOTE | 2018-11-02 10:29 | NUR ---
NURSE NOTES: merren was not administered due to report from the assistant shift supervisor nurse that after administration of merren this AM @ 0130 patient had facial redness, SOB and increase temperature. reported to Dr Cabrera the reaction of the medication, awaits callback and new order.
--- NOTE | 2018-11-02 10:56 | Nephrology Progress Note ---
Assessment/Plan Problem List: (1) GILDARDO (acute kidney injury) (2) Septic shock (3) Suprapubic catheter (4) History of CVA (cerebrovascular accident) Assessment Acute renal failure- resolved Septic shock on presentation CVA Suprapubic cath / ? Neurogenic bladder HTN DVT UTI Plan K Phos IV stop Hydrate midodrine avoid nephrotoxics monitor renal parameters med surg? per orders Subjective ROS Limited/Unobtainable: No Constitutional: Reports: malaise Objective Objective Last 24 Hour Vital Signs Date Time Temp Pulse Resp B/P (MAP) Pulse Ox O2 Delivery O2 Flow Rate FiO2 11/02/18 08:00 109 11/02/18 08:00 97.5 81 24 105/69 (81) 100 11/02/18 08:00 Nasal Cannula 2.0 11/02/18 06:36 74 18 97 Room Air 21 11/02/18 04:30 99.2 11/02/18 04:17 99.2 11/02/18 04:00 Nasal Cannula 2.0 11/02/18 04:00 138 11/02/18 04:00 102.0 136 24 125/88 (100) 96 11/02/18 00:00 90 11/02/18 00:00 97.8 90 20 113/74 (87) 96 11/02/18 00:00 Nasal Cannula 2.0 11/01/18 20:00 89 11/01/18 20:00 Nasal Cannula 2.0 11/01/18 20:00 98.9 90 20 103/60 (74) 96 11/01/18 19:30 90 20 97 Room Air 21 11/01/18 17:30 98.9 11/01/18 16:00 136 11/01/18 15:35 100.2 138 21 108/72 (84) 97 11/01/18 12:00 141 11/01/18 12:00 Nasal Cannula 2.0 11/01/18 11:30 97.8 112 23 147/98 (114) 99 Intake and Output 11/01/18 11/02/18 18:59 06:59 Intake Total 885 ml 1030 ml Output Total 200 ml 400 ml Balance 685 ml 630 ml Intake Free Water 310 ml 350 ml IV Total 385 ml 110 ml Tube Feeding 190 ml 570 ml Output Urine Total 200 ml 400 ml # Voids 2 # Bowel Movements 2 2 Laboratory Tests 11/02/18 05:20: White Blood Count 22.0H, Red Blood Count 3.32L, Hemoglobin 9.5L, Hematocrit 28.8L, Mean Corpuscular Volume 87, Mean Corpuscular Hemoglobin 28.5, Mean Corpuscular Hemoglobin Concent 33.0, Red Cell Distribution Width 14.0, Platelet Count 111L, Mean Platelet Volume 8.1, Neutrophils (%) (Auto) , Lymphocytes (%) ( Auto) , Monocytes (%) (Auto) , Eosinophils (%) (Auto) , Basophils (%) (Auto) , Differential Total Cells Counted 100, Neutrophils % (Manual) 95H, Lymphocytes % (Manual) 2L, Monocytes % (Manual) 2, Eosinophils % (Manual) 0, Basophils % ( Manual) 0, Band Neutrophils 1, Platelet Estimate DecreasedL, Platelet Morphology Normal, Hypochromasia 2+, Anisocytosis 1+, Spherocytes 1+, Sodium Level 143, Potassium Level 2.9L, Chloride Level 110H, Carbon Dioxide Level 22, Anion Gap 11, Blood Urea Nitrogen 22H, Creatinine 1.1, Estimat Glomerular Filtration Rate > 60, Glucose Level 104, Uric Acid 6.1, Calcium Level 7.2L, Phosphorus Level 1.0L, Magnesium Level 1.9, Total Bilirubin 0.4, Aspartate Amino Transf (AST/SGOT) 27, Alanine Aminotransferase (ALT/SGPT) 10L, Alkaline Phosphatase 98, C-Reactive Protein, Quantitative 27.0H, Pro-B-Type Natriuretic Peptide 9506H, Total Protein 6.5, Albumin 1.7L, Globulin 4.8, Albumin/Globulin Ratio 0.4L Height (Feet): 5 Height (Inches): 8.00 Weight (Pounds): 248 General Appearance: no apparent distress Cardiovascular: normal rate Respiratory/Chest: decreased breath sounds Abdomen: soft Objective no change Pranav Grady MD Nov 02, 2018 10:56
[2018-11-02] MEDS: Potassium Phosphate 30 MM in NS 275ml IV SCH ×2 (10:58→17:05)
--- NOTE | 2018-11-02 11:45 | NUR ---
NURSE NOTES: per dr blevins, resume merrem and monitor patient. will take note and carry out.
--- NOTE | 2018-11-02 11:48 | Infectious Diseases Prog Note ---
Assessment/Plan Assessment/Plan Assessment: Septic shock- SP -probable pNA -MRSA/ P Mirabilis bacteremia- m/l source UTI , may need to r/o endocarditis -10/30 CXR: Right perihilar disease possibly atelectasis or pneumonia. No change -repeat u/a wbc tnct, nit +, leuk +3 -u/a wbc 19-15, nit +, leuk +2; ucx >100k P. mirabilis (S Genta, Ertapenem , Zosyn) -CXR: Low lung volumes with right perihilar atelectatic changes. No definite acute process -10/29 Bcx 4/ P. mirabilis (neri S), MRSA; repeat Bcx NTD; 10/30 BCxx 2/4 GPC and P Mirabilis -sp cx PsA (neri S), MRSA -2d Echo: no vegeatiosn Fever; ongoing Leukocytosis; increased GILDARDO, improving hx of UTI -07/2018 ucx E. fecalis (neri S), P. mirabilis -03/2019 ucx PsA TCP CVA/TIA Dm2 CKD suprapubic catheter DVT hypertensive heart disease [place] resident Plan: cont Zyvox and Cefepime # 1 ( monitor PLT ) - DC Meropenem #4 for probable ESBL Proteus, UTI, neri S Proteus bactremia and PsA PNA - DC IV Vancomycin #3 pending S. aureus sensi -11/01 Sp Amikacin #4 -10/29 SP Ertapenem #1, IV Vancomycin x1 -f/u cx -Monitor CBC/CMP, temperatures -aspiration precautions - CT abd/p w/ contrast -Will need TASNEEM -Bcxx 2 Subjective Allergies: Coded Allergies: VANCOMYCIN (Verified Allergy, Mild, Redness , 10/29/18) CIPROFLOXACIN (Verified Allergy, Unknown, 08/23/15) Subjective \ fever pt has facial erythema while getting Merrem vanco was changed to Zyvox Objective Vital Signs Last 24 Hour Vital Signs Date Time Temp Pulse Resp B/P (MAP) Pulse Ox O2 Delivery O2 Flow Rate FiO2 11/02/18 08:00 109 11/02/18 08:00 97.5 81 24 105/69 (81) 100 11/02/18 08:00 Nasal Cannula 2.0 11/02/18 06:36 74 18 97 Room Air 21 11/02/18 04:30 99.2 11/02/18 04:17 99.2 11/02/18 04:00 Nasal Cannula 2.0 11/02/18 04:00 138 11/02/18 04:00 102.0 136 24 125/88 (100) 96 11/02/18 00:00 90 11/02/18 00:00 97.8 90 20 113/74 (87) 96 11/02/18 00:00 Nasal Cannula 2.0 11/01/18 20:00 89 11/01/18 20:00 Nasal Cannula 2.0 11/01/18 20:00 98.9 90 20 103/60 (74) 96 11/01/18 19:30 90 20 97 Room Air 21 11/01/18 17:30 98.9 11/01/18 16:00 136 11/01/18 15:35 100.2 138 21 108/72 (84) 97 11/01/18 12:00 141 11/01/18 12:00 Nasal Cannula 2.0 Height (Feet): 5 Height (Inches): 8.00 Weight (Pounds): 248 HEENT: anicteric Respiratory/Chest: lungs clear Cardiovascular: normal peripheral pulses Abdomen: soft, non tender, other - sup pubic Cath Microbiology Date/Time Source Procedure Growth Status 11/01/18 11:30 Blood Blood Culture - Preliminary Resulted 11/01/18 11:15 Blood Blood Culture - Preliminary Resulted 10/30/18 16:45 Blood Blood Culture - Preliminary Proteus Mirabilis Gram Positive Cocci Resulted 10/30/18 16:30 Blood Blood Culture - Final Proteus Mirabilis Complete Laboratory Tests Test 11/02/18 05:20 White Blood Count 22.0 K/UL (4.8-10.8) H Red Blood Count 3.32 M/UL (4.70-6.10) L Hemoglobin 9.5 G/DL (14.2-18.0) L Hematocrit 28.8 % (42.0-52.0) L Mean Corpuscular Volume 87 FL (80-99) Mean Corpuscular Hemoglobin 28.5 PG (27.0-31.0) Mean Corpuscular Hemoglobin Concent 33.0 G/DL (32.0-36.0) Red Cell Distribution Width 14.0 % (11.6-14.8) Platelet Count 111 K/UL (150-450) L Mean Platelet Volume 8.1 FL (6.5-10.1) Neutrophils (%) (Auto) % (45.0-75.0) Lymphocytes (%) (Auto) % (20.0-45.0) Monocytes (%) (Auto) % (1.0-10.0) Eosinophils (%) (Auto) % (0.0-3.0) Basophils (%) (Auto) % (0.0-2.0) Differential Total Cells Counted 100 Neutrophils % (Manual) 95 % (45-75) H Lymphocytes % (Manual) 2 % (20-45) L Monocytes % (Manual) 2 % (1-10) Eosinophils % (Manual) 0 % (0-3) Basophils % (Manual) 0 % (0-2) Band Neutrophils 1 % (0-8) Platelet Estimate Decreased L Platelet Morphology Normal Hypochromasia 2+ Anisocytosis 1+ Spherocytes 1+ Sodium Level 143 MMOL/L (136-145) Potassium Level 2.9 MMOL/L (3.5-5.1) L Chloride Level 110 MMOL/L (98-107) H Carbon Dioxide Level 22 MMOL/L (21-32) Anion Gap 11 mmol/L (5-15) Blood Urea Nitrogen 22 mg/dL (7-18) H Creatinine 1.1 MG/DL (0.55-1.30) Estimat Glomerular Filtration Rate > 60 mL/min (>60) Glucose Level 104 MG/DL (74-106) Uric Acid 6.1 MG/DL (2.6-7.2) Calcium Level 7.2 MG/DL (8.5-10.1) L Phosphorus Level 1.0 MG/DL (2.5-4.9) L Magnesium Level 1.9 MG/DL (1.8-2.4) Total Bilirubin 0.4 MG/DL (0.2-1.0) Aspartate Amino Transf (AST/SGOT) 27 U/L (15-37) Alanine Aminotransferase (ALT/SGPT) 10 U/L (12-78) L Alkaline Phosphatase 98 U/L (46-116) C-Reactive Protein, Quantitative 27.0 mg/dL (0.00-0.90) H Pro-B-Type Natriuretic Peptide 9506 pg/mL (0-125) H Total Protein 6.5 G/DL (6.4-8.2) Albumin 1.7 G/DL (3.4-5.0) L Globulin 4.8 g/dL Albumin/Globulin Ratio 0.4 (1.0-2.7) L Current Medications Medications (Trade) Dose Ordered Sig/Fab Route PRN Reason Start Time Stop Time Status Last Admin Dose Admin Acetaminophen (Tylenol) 650 mg Q4H PRN ORAL fever (temp>100.5 F) 11/01/18 13:30 11/28/18 17:29 11/02/18 03:47 Albuterol/ Ipratropium (Albuterol/ Ipratropium) 3 ml Q4H PRN HHN Shortness of Breath 11/01/18 13:30 11/03/18 17:29 Chlorhexidine Gluconate (Licha-Hex 2%) 1 applic DAILY@2000 TOPIC 11/01/18 20:00 11/29/18 19:59 11/01/18 20:32 Diphenhydramine HCl (Benadryl) 25 mg Q6H PRN IVP Itching 11/01/18 11:30 11/28/18 17:29 11/02/18 03:47 Docusate Sodium (Colace) 100 mg THREE TIMES A DAY GT 11/01/18 18:00 12/01/18 17:59 Famotidine (Pepcid) 20 mg Q12HR ORAL 11/01/18 21:00 11/29/18 20:59 11/02/18 08:44 Heparin Sodium (Porcine) (Heparin 5000 units/ml) 5,000 units EVERY 12 HOURS SUBQ 11/01/18 21:00 11/28/18 08:59 11/02/18 08:48 Linezolid (Zyvox) 600 mg EVERY 12 HOURS GT 11/01/18 21:00 11/06/18 20:59 11/02/18 08:44 Meropenem 1 gm/ Sodium Chloride 110 ml @ 220 mls/hr Q8HR IVPB 11/02/18 12:00 11/07/18 11:59 Midodrine (Pro-Amatine) 10 mg THREE TIMES A DAY GT 11/01/18 13:00 11/29/18 17:59 11/02/18 08:41 Morphine Sulfate (Morphine Sulfate) 2 mg Q4H PRN IVP Severe Pain (Pain Scale 7-10) 11/01/18 13:30 11/05/18 17:29 Ondansetron HCl (Zofran) 4 mg Q6H PRN IVP Nausea & Vomiting 11/01/18 11:30 11/28/18 17:29 Polyethylene Glycol (Miralax) 17 gm DAILYPRN PRN ORAL Constipation 11/01/18 17:30 11/30/18 17:29 Potassium Phosphate 30 mm/ Sodium Chloride 285 ml @ 47.5 mls/hr Q6H IV 11/02/18 11:00 11/02/18 22:59 11/02/18 10:58 Potassium Chloride (K-Dur) 40 meq ONCE GT 11/02/18 11:00 11/02/18 12:00 11/02/18 10:59 Peterson Cabrera MD Nov 02, 2018 11:48
[2018-11-02 12:00] VITALS: BP 152/108
[2018-11-02] MEDS ORDERED: Meropenem 1 GM in NS 110 ML IVPB SCH (12:00)
--- NOTE | 2018-11-02 13:30 | NUR ---
NURSE NOTES: merrem IV was administered per order by dr blevins to resume it. no allergy reaction so far. patient is stable. will keep on monitoring.
[2018-11-02] MEDS: Cefepime HCl 2 GM in D5W 55 ML IVPB SCH ×2 (13:35→22:05)
--- NOTE | 2018-11-02 13:44 | NUR ---
CASE MANAGEMENT: REVIEW 11/02/2018 SI:SEPSIS. ARF. T 97.5 HR 114 RR 23 B/P 152/108 SATS 96% ON 2L/NC WBC 22 K 2.9 CL 110 BUN 22 CA 7.2 AST 10 PHOS 1 IS:CEFEPIME IV Q8H LINEZOLID GT Q12H PEPCID PO Q12H K PHOS IV Q6H MIDODRINE GT TID SDU PLAN OF CARE: CT ABD/PELVIS
[2018-11-02] MEDS ORDERED: NS 250 ML IVLG ONE (14:30)
--- NOTE | 2018-11-02 15:22 | NUR ---
NURSE NOTES: Ct dept called and reported that CT abdomen will be tomorrow 11/03/18. will continue to monitor .
[2018-11-02] MEDS ORDERED: NS 275ml ONE (15:49)
[2018-11-02 16:00] VITALS: BP 123/80
--- NOTE | 2018-11-02 17:35 | Cardiac Electrophysiology PN ---
Assessment/Plan Assessment/Plan 1. Septic Shock and dehydration as sodium is high and BUN and creatinine is also elevated. Lactic acidosis 2.4. Now off Levophed and on IV antibiotics Echo Nl EF. Received 500 cc NS. WBC 22K today MRSA/ P Mirabilis bacteremia may need to r/o endocarditis 2. Sinus tach 140s likely due to sepsis with fever. HR better 3. Inferior wall myocardial infarction based on electrocardiogram. Ruled out for myocardial infarction. Echocardiogram EF 65% 4. Hypernatremia. 5. Renal failure. 6. CVA with paraplegia. 7. Status post suprapubic catheter. DW RN and at bedside Subjective Subjective In SDU. BP still in 80s. Received 500 cc NS. Alert and at bedside. Objective Last 24 Hour Vital Signs Date Time Temp Pulse Resp B/P (MAP) Pulse Ox O2 Delivery O2 Flow Rate FiO2 11/02/18 16:00 Nasal Cannula 2.0 11/02/18 16:00 98.1 114 24 123/80 (94) 99 11/02/18 12:00 Nasal Cannula 2.0 11/02/18 12:00 98.2 114 23 152/108 (123) 96 11/02/18 11:45 115 11/02/18 08:00 109 11/02/18 08:00 97.5 81 24 105/69 (81) 100 11/02/18 08:00 Nasal Cannula 2.0 11/02/18 06:36 74 18 97 Room Air 21 11/02/18 04:30 99.2 11/02/18 04:17 99.2 11/02/18 04:00 Nasal Cannula 2.0 11/02/18 04:00 138 11/02/18 04:00 102.0 136 24 125/88 (100) 96 11/02/18 00:00 90 11/02/18 00:00 97.8 90 20 113/74 (87) 96 11/02/18 00:00 Nasal Cannula 2.0 11/01/18 20:00 89 11/01/18 20:00 Nasal Cannula 2.0 11/01/18 20:00 98.9 90 20 103/60 (74) 96 11/01/18 19:30 90 20 97 Room Air 21 Intake and Output 11/01/18 11/02/18 19:00 07:00 Intake Total 925 ml 1045 ml Output Total 200 ml 400 ml Balance 725 ml 645 ml Intake Free Water 310 ml 350 ml IV Total 385 ml 110 ml Tube Feeding 230 ml 585 ml Output Urine Total 200 ml 400 ml # Voids 2 # Bowel Movements 2 2 Laboratory Tests Test 11/02/18 05:20 White Blood Count 22.0 K/UL (4.8-10.8) H Red Blood Count 3.32 M/UL (4.70-6.10) L Hemoglobin 9.5 G/DL (14.2-18.0) L Hematocrit 28.8 % (42.0-52.0) L Mean Corpuscular Volume 87 FL (80-99) Mean Corpuscular Hemoglobin 28.5 PG (27.0-31.0) Mean Corpuscular Hemoglobin Concent 33.0 G/DL (32.0-36.0) Red Cell Distribution Width 14.0 % (11.6-14.8) Platelet Count 111 K/UL (150-450) L Mean Platelet Volume 8.1 FL (6.5-10.1) Neutrophils (%) (Auto) % (45.0-75.0) Lymphocytes (%) (Auto) % (20.0-45.0) Monocytes (%) (Auto) % (1.0-10.0) Eosinophils (%) (Auto) % (0.0-3.0) Basophils (%) (Auto) % (0.0-2.0) Differential Total Cells Counted 100 Neutrophils % (Manual) 95 % (45-75) H Lymphocytes % (Manual) 2 % (20-45) L Monocytes % (Manual) 2 % (1-10) Eosinophils % (Manual) 0 % (0-3) Basophils % (Manual) 0 % (0-2) Band Neutrophils 1 % (0-8) Platelet Estimate Decreased L Platelet Morphology Normal Hypochromasia 2+ Anisocytosis 1+ Spherocytes 1+ Sodium Level 143 MMOL/L (136-145) Potassium Level 2.9 MMOL/L (3.5-5.1) L Chloride Level 110 MMOL/L (98-107) H Carbon Dioxide Level 22 MMOL/L (21-32) Anion Gap 11 mmol/L (5-15) Blood Urea Nitrogen 22 mg/dL (7-18) H Creatinine 1.1 MG/DL (0.55-1.30) Estimat Glomerular Filtration Rate > 60 mL/min (>60) Glucose Level 104 MG/DL (74-106) Uric Acid 6.1 MG/DL (2.6-7.2) Calcium Level 7.2 MG/DL (8.5-10.1) L Phosphorus Level 1.0 MG/DL (2.5-4.9) L Magnesium Level 1.9 MG/DL (1.8-2.4) Total Bilirubin 0.4 MG/DL (0.2-1.0) Aspartate Amino Transf (AST/SGOT) 27 U/L (15-37) Alanine Aminotransferase (ALT/SGPT) 10 U/L (12-78) L Alkaline Phosphatase 98 U/L (46-116) C-Reactive Protein, Quantitative 27.0 mg/dL (0.00-0.90) H Pro-B-Type Natriuretic Peptide 9506 pg/mL (0-125) H Total Protein 6.5 G/DL (6.4-8.2) Albumin 1.7 G/DL (3.4-5.0) L Globulin 4.8 g/dL Albumin/Globulin Ratio 0.4 (1.0-2.7) L Microbiology Date/Time Source Procedure Growth Status 11/01/18 11:30 Blood Blood Culture - Preliminary Resulted 11/01/18 11:15 Blood Blood Culture - Preliminary Resulted Objective HEAD AND NECK: No JVD. LUNGS: Coarse rhonchi. CARDIOVASCULAR: Tachycardic S1, S2 with no gallop. ABDOMEN: Soft, status post suprapubic catheter. EXTREMITIES: Bilateral lower extremity _. The arm is also contracted. Darnell Segundo MD Nov 02, 2018 17:35
--- NOTE | 2018-11-02 19:16 | NUR ---
NURSE NOTES: report given to kolton levin
--- NOTE | 2018-11-02 19:17 | NUR ---
NURSE NOTES: Received patient from Elidia CHRISTOPHER. Patient is awake and oriented x2. Receiving oxygen via room air, patient tolerating well, showing no signs of respiratory distress. G-tube is patent and receiving Glucerna 1.5 @55cc/hr. Patient has a suprapubic catheter that is intact, but leaking. IV site is right femoral TLC and Right hand 24g. Right hand is receiving Potassium phosphate at 47.5cc/hr. Bed is locked, placed in lowest position, side rails up x3, bed alarm on. Will continue to monitor.
[2018-11-02 20:00] VITALS: BP 110/84
[2018-11-02] MEDS: Dyna-Hex 2% Top Sol 2oz TOPIC SCH (20:34)
--- NOTE | 2018-11-02 21:49 | Hematology/Onc Progress Note ---
Assessment/Plan Assessment/Plan (1) Obstructive hydrocephalus ICD Codes: G91.1 - Obstructive hydrocephalus SNOMED: 474871286 (2) COPD (chronic obstructive pulmonary disease) ICD Codes: J44.9 - Chronic obstructive pulmonary disease, unspecified SNOMED: 72315821 (3) Diabetes mellitus ICD Codes: E11.9 - Type 2 diabetes mellitus without complications SNOMED: 21791313 (4) Feeding by G-tube ICD Codes: Z93.1 - Gastrostomy status SNOMED: 085345149, 970986837 (5) Sepsis ICD Codes: A41.9 - Sepsis, unspecified organism SNOMED: 42690702 (6) History of CVA (cerebrovascular accident) ICD Codes: Z86.73 - Personal history of transient ischemic attack (TIA), and cerebral infarction without residual deficits SNOMED: 524535330 (7) Encephalopathy chronic ICD Codes: G93.49 - Other encephalopathy SNOMED: 34214849 (8) UTI (urinary tract infection) ICD Codes: N39.0 - Urinary tract infection, site not specified SNOMED: 17122934 Qualifiers: Qualified Codes: N30.00 - Acute cystitis without hematuria (9) Septic shock ICD Codes: A41.9 - Sepsis, unspecified organism; R65.21 - Severe sepsis with septic shock SNOMED: 02526333 (10) ATN (acute tubular necrosis) ICD Codes: N17.0 - Acute kidney failure with tubular necrosis SNOMED: 49336100 Status: unchanged --> now med surg floor today, seen by cards, pulm --> now has been started on linezolid/cefepime --> id and cards recs reviewed --> ct a/p pending, venous duplex reviewed Subjective Constitutional: Denies: no symptoms, chills, fever, malaise, weakness, other HEENT: Denies: no symptoms, eye pain, blurred vision, tearing, double vision, ear pain, ear discharge, nose pain, nose congestion, throat pain, throat swelling, mouth pain, mouth swelling, other Cardiovascular: Denies: no symptoms, chest pain, edema, irregular heart rate, lightheadedness, palpitations, syncope, other Respiratory: Denies: no symptoms, cough, shortness of breath, SOB with excertion, SOB at rest, sputum, wheezing, other Gastrointestinal/Abdominal: Denies: no symptoms, abdomen distended, abdominal pain, black stools, tarry stools, blood in stool, constipated, diarrhea, difficulty swallowing, nausea, poor appetite, poor fluid intake, rectal bleeding , vomiting, other Genitourinary: Denies: no symptoms, burning, discharge, frequency, flank pain, hematuria, incontinence, pain, urgency, other 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: Denies: no symptoms, anxiety, depressed, emotional problems, headache, numbness, paresthesia, pre-existing deficit, seizure, tingling, tremors, weakness, other Endocrine: Denies: no symptoms, excessive sweating, flushing, intolerance to cold, intolerance to heat, increased hunger, increased thirst, increased urine, unexplained weight gain, unexplained weight loss, other Allergies: Coded Allergies: VANCOMYCIN (Verified Allergy, Mild, Redness , 10/29/18) CIPROFLOXACIN (Verified Allergy, Unknown, 08/23/15) Subjective 10/31: dc to med surg from icu, doing better 11/01: given 500cc ns for low bp, pcp was made aware as well as cards 11/02: on zyvox and cefepime, no fc, no bleeding, on feedings Objective Objective Current Medications Medications (Trade) Dose Ordered Sig/Fab Route PRN Reason Start Time Stop Time Status Last Admin Dose Admin Acetaminophen (Tylenol) 650 mg Q4H PRN ORAL fever (temp>100.5 F) 11/01/18 13:30 11/28/18 17:29 11/02/18 03:47 Albuterol/ Ipratropium (Albuterol/ Ipratropium) 3 ml Q4H PRN HHN Shortness of Breath 11/01/18 13:30 11/03/18 17:29 Cefepime HCl 2 gm/ Dextrose 55 ml @ 110 mls/hr EVERY 8 HOURS IVPB 11/02/18 13:00 11/09/18 12:59 11/02/18 13:35 Chlorhexidine Gluconate (Licha-Hex 2%) 1 applic DAILY@1999 TOPIC 11/01/18 20:00 11/29/18 19:59 11/02/18 20:34 Diphenhydramine HCl (Benadryl) 25 mg Q6H PRN IVP Itching 11/01/18 11:30 11/28/18 17:29 11/02/18 03:47 Docusate Sodium (Colace) 100 mg THREE TIMES A DAY GT 11/01/18 18:00 12/01/18 17:59 Famotidine (Pepcid) 20 mg Q12HR ORAL 11/01/18 21:00 11/29/18 20:59 11/02/18 20:34 Heparin Sodium (Porcine) (Heparin 5000 units/ml) 5,000 units EVERY 12 HOURS SUBQ 11/01/18 21:00 11/28/18 08:59 11/02/18 08:48 Linezolid (Zyvox) 600 mg EVERY 12 HOURS GT 11/01/18 21:00 11/06/18 20:59 11/02/18 20:34 Midodrine (Pro-Amatine) 10 mg THREE TIMES A DAY GT 11/01/18 13:00 11/29/18 17:59 11/02/18 08:41 Morphine Sulfate (Morphine Sulfate) 2 mg Q4H PRN IVP Severe Pain (Pain Scale 7-10) 11/01/18 13:30 11/05/18 17:29 Ondansetron HCl (Zofran) 4 mg Q6H PRN IVP Nausea & Vomiting 11/01/18 11:30 11/28/18 17:29 Polyethylene Glycol (Miralax) 17 gm DAILYPRN PRN ORAL Constipation 11/01/18 17:30 11/30/18 17:29 Potassium Phosphate 30 mm/ Sodium Chloride 285 ml @ 47.5 mls/hr Q6H IV 11/02/18 11:00 11/02/18 22:59 11/02/18 17:05 Last 24 Hour Vital Signs Date Time Temp Pulse Resp B/P (MAP) Pulse Ox O2 Delivery O2 Flow Rate FiO2 11/02/18 20:21 112 18 99 Nasal Cannula 2.0 28 11/02/18 17:23 114 11/02/18 16:00 Nasal Cannula 2.0 11/02/18 16:00 98.1 114 24 123/80 (94) 99 11/02/18 12:00 Nasal Cannula 2.0 11/02/18 12:00 98.2 114 23 152/108 (123) 96 11/02/18 11:45 115 11/02/18 08:00 109 11/02/18 08:00 97.5 81 24 105/69 (81) 100 11/02/18 08:00 Nasal Cannula 2.0 11/02/18 06:36 74 18 97 Room Air 21 11/02/18 04:30 99.2 11/02/18 04:17 99.2 11/02/18 04:00 Nasal Cannula 2.0 11/02/18 04:00 138 11/02/18 04:00 102.0 136 24 125/88 (100) 96 11/02/18 00:00 90 11/02/18 00:00 97.8 90 20 113/74 (87) 96 11/02/18 00:00 Nasal Cannula 2.0 11/01/18 20:00 89 11/01/18 20:00 Nasal Cannula 2.0 11/01/18 20:00 98.9 90 20 103/60 (74) 96 11/01/18 19:30 90 20 97 Room Air 21 11/01/18 17:30 98.9 11/01/18 16:00 136 11/01/18 15:35 100.2 138 21 108/72 (84) 97 11/01/18 12:00 141 11/01/18 12:00 Nasal Cannula 2.0 11/01/18 11:30 97.8 112 23 147/98 (114) 99 11/01/18 09:17 Room Air 11/01/18 09:17 97.5 98 20 107/60 (76) 98 11/01/18 08:07 97.5 111 20 75/48 (57) 98 11/01/18 06:05 102.6 11/01/18 04:00 102.1 136 20 98/52 (67) 98 11/01/18 00:20 112 20 99 Nasal Cannula 2.0 28 11/01/18 00:11 109 20 97 Nasal Cannula 2.0 28 11/01/18 00:00 99.1 100 20 157/97 (117) 98 10/31/18 23:27 Room Air Intake and Output 11/01/18 11/02/18 19:00 07:00 Intake Total 925 ml 1045 ml Output Total 200 ml 400 ml Balance 725 ml 645 ml Intake Free Water 310 ml 350 ml IV Total 385 ml 110 ml Tube Feeding 230 ml 585 ml Output Urine Total 200 ml 400 ml # Voids 2 # Bowel Movements 2 2 Labs Test 10/31/18 04:36 11/02/18 05:20 White Blood Count 17.1 K/UL (4.8-10.8) 22.0 K/UL (4.8-10.8) Red Blood Count 3.85 M/UL (4.70-6.10) 3.32 M/UL (4.70-6.10) Hemoglobin 11.0 G/DL (14.2-18.0) 9.5 G/DL (14.2-18.0) Hematocrit 34.6 % (42.0-52.0) 28.8 % (42.0-52.0) Mean Corpuscular Volume 90 FL (80-99) 87 FL (80-99) Mean Corpuscular Hemoglobin 28.7 PG (27.0-31.0) 28.5 PG (27.0-31.0) Mean Corpuscular Hemoglobin Concent 31.9 G/DL (32.0-36.0) 33.0 G/DL (32.0-36.0) Red Cell Distribution Width 14.1 % (11.6-14.8) 14.0 % (11.6-14.8) Platelet Count 146 K/UL (150-450) 111 K/UL (150-450) Mean Platelet Volume 8.1 FL (6.5-10.1) 8.1 FL (6.5-10.1) Neutrophils (%) (Auto) 78.4 % (45.0-75.0) % (45.0-75.0) Lymphocytes (%) (Auto) 13.0 % (20.0-45.0) % (20.0-45.0) Monocytes (%) (Auto) 8.2 % (1.0-10.0) % (1.0-10.0) Eosinophils (%) (Auto) 0.1 % (0.0-3.0) % (0.0-3.0) Basophils (%) (Auto) 0.3 % (0.0-2.0) % (0.0-2.0) Erythrocyte Sedimentation Rate 105 MM/HR (0-20) Sodium Level 141 MMOL/L (136-145) 143 MMOL/L (136-145) Potassium Level 3.8 MMOL/L (3.5-5.1) 2.9 MMOL/L (3.5-5.1) Chloride Level 107 MMOL/L (98-107) 110 MMOL/L (98-107) Carbon Dioxide Level 22 MMOL/L (21-32) 22 MMOL/L (21-32) Anion Gap 12 mmol/L (5-15) 11 mmol/L (5-15) Blood Urea Nitrogen 19 mg/dL (7-18) 22 mg/dL (7-18) Creatinine 1.2 MG/DL (0.55-1.30) 1.1 MG/DL (0.55-1.30) Estimat Glomerular Filtration Rate > 60 mL/min (>60) > 60 mL/min (>60) Glucose Level 80 MG/DL (74-106) 104 MG/DL (74-106) Uric Acid 5.5 MG/DL (2.6-7.2) 6.1 MG/DL (2.6-7.2) Calcium Level 7.2 MG/DL (8.5-10.1) 7.2 MG/DL (8.5-10.1) Phosphorus Level 2.7 MG/DL (2.5-4.9) 1.0 MG/DL (2.5-4.9) Magnesium Level 2.3 MG/DL (1.8-2.4) 1.9 MG/DL (1.8-2.4) Total Bilirubin 0.4 MG/DL (0.2-1.0) 0.4 MG/DL (0.2-1.0) Gamma Glutamyl Transpeptidase 14 U/L (5-85) Aspartate Amino Transf (AST/SGOT) 20 U/L (15-37) 27 U/L (15-37) Alanine Aminotransferase (ALT/SGPT) 10 U/L (12-78) 10 U/L (12-78) Alkaline Phosphatase 72 U/L (46-116) 98 U/L (46-116) C-Reactive Protein, Quantitative 31.2 mg/dL (0.00-0.90) 27.0 mg/dL (0.00-0.90) Pro-B-Type Natriuretic Peptide 4719 pg/mL (0-125) 9506 pg/mL (0-125) Total Protein 7.4 G/DL (6.4-8.2) 6.5 G/DL (6.4-8.2) Albumin 2.0 G/DL (3.4-5.0) 1.7 G/DL (3.4-5.0) Globulin 5.4 g/dL 4.8 g/dL Albumin/Globulin Ratio 0.4 (1.0-2.7) 0.4 (1.0-2.7) Cortisol AM Sample 14.4 UG/DL Differential Total Cells Counted 100 Neutrophils % (Manual) 95 % (45-75) Lymphocytes % (Manual) 2 % (20-45) Monocytes % (Manual) 2 % (1-10) Eosinophils % (Manual) 0 % (0-3) Basophils % (Manual) 0 % (0-2) Band Neutrophils 1 % (0-8) Platelet Estimate Decreased Platelet Morphology Normal Hypochromasia 2+ Anisocytosis 1+ Spherocytes 1+ Height (Feet): 5 Height (Inches): 8.00 Weight (Pounds): 248 Objective Physical Exam General Appearance: A+O x3, NAD HEENT: normocephalic, atraumatic Neck: non-tender, normal alignment Respiratory/Chest: chest wall non-tender, lungs clear Cardiovascular/Chest: normal peripheral pulses, normal rate Abdomen: normal bowel sounds, non tender ++ peg Extremities: normal range of motion Nathan Ludwig MD Nov 02, 2018 21:49
[2018-11-03] VITALS: BP 120/77
[2018-11-03 04:00] VITALS: BP 106/47
[2018-11-03] MEDS: Cefepime HCl 2 GM in D5W 55 ML IVPB SCH ×3 (05:40→21:14)
[2018-11-03 06:15] LABS: HEMATOCRIT 22.3 % (42.0-52.0); MEAN CORPUSCULAR VOLUME 89 FL (80-99); PLATELET COUNT 122 K/UL (150-450); RED CELL DISTRIBUTION WIDTH 17.7 % (11.6-14.8); WHITE BLOOD COUNT 11.3 K/UL (4.8-10.8)
[2018-11-03 06:21] LABS: HEMOGLOBIN 6.7 G/DL (14.2-18.0)
[2018-11-03 07:05] LABS: HEMATOCRIT 33.8 % (42.0-52.0); HEMOGLOBIN 11.6 G/DL (14.2-18.0); MEAN CORPUSCULAR VOLUME 86 FL (80-99); PLATELET COUNT 159 K/UL (150-450); RED BLOOD COUNT 3.91 M/UL (4.70-6.10); RED CELL DISTRIBUTION WIDTH 14.1 % (11.6-14.8); WHITE BLOOD COUNT 21.3 K/UL (4.8-10.8)
--- NOTE | 2018-11-03 07:13 | NUR ---
HAND-OFF: Report given to Elidia CHRISTOPHER. Patient in stable condition.
--- NOTE | 2018-11-03 07:13 | Pulmonology Progress Note ---
Assessment/Plan Problems: (1) Septic shock (2) ATN (acute tubular necrosis) (3) COPD (chronic obstructive pulmonary disease) (4) Encephalopathy chronic (5) Obstructive hydrocephalus (6) History of DVT (deep vein thrombosis) (7) Suprapubic catheter (8) Aphasia (9) Feeding by G-tube (10) History of CVA (cerebrovascular accident) Assessment/Plan persistent bacteremia, more stable persistent bacteremia less tachy continue abx, change abx because of possible adverse reaction to Merrem respiratory treatment titrate fio2 to sat of 92% renal function better. Subjective ROS Limited/Unobtainable: No Allergies: Coded Allergies: VANCOMYCIN (Verified Allergy, Mild, Redness , 10/29/18) CIPROFLOXACIN (Verified Allergy, Unknown, 08/23/15) Objective Last 24 Hour Vital Signs Date Time Temp Pulse Resp B/P (MAP) Pulse Ox O2 Delivery O2 Flow Rate FiO2 11/03/18 04:00 93 11/03/18 04:00 97.7 105 25 106/47 (66) 98 11/03/18 04:00 Nasal Cannula 2.0 11/03/18 00:00 97.7 104 23 120/77 (91) 97 11/03/18 00:00 Nasal Cannula 2.0 11/03/18 00:00 106 11/02/18 20:21 112 18 99 Nasal Cannula 2.0 28 11/02/18 20:00 Nasal Cannula 2.0 11/02/18 20:00 98.4 96 22 110/84 (93) 99 11/02/18 19:21 122 11/02/18 17:23 114 11/02/18 16:00 Nasal Cannula 2.0 11/02/18 16:00 98.1 114 24 123/80 (94) 99 11/02/18 12:00 Nasal Cannula 2.0 11/02/18 12:00 98.2 114 23 152/108 (123) 96 11/02/18 11:45 115 11/02/18 08:00 109 11/02/18 08:00 97.5 81 24 105/69 (81) 100 11/02/18 08:00 Nasal Cannula 2.0 Intake and Output 11/02/18 11/03/18 19:00 07:00 Intake Total 1052.5 ml 487.5 ml Output Total 650 ml 200 ml Balance 402.5 ml 287.5 ml Intake Free Water 100 ml IV Total 347.5 ml 102.5 ml Tube Feeding 605 ml 385 ml Output Urine Total 650 ml 200 ml # Bowel Movements 4 1 General Appearance: WD/WN HEENT: normocephalic, atraumatic Respiratory/Chest: chest wall non-tender, lungs clear Cardiovascular: normal peripheral pulses, normal rate Abdomen: normal bowel sounds, non distended Skin: no rash Microbiology Date/Time Source Procedure Growth Status 11/01/18 11:30 Blood Blood Culture - Preliminary Gram Negative Oswaldo Gram Positive Cocci Resulted 11/01/18 11:15 Blood Blood Culture - Preliminary Gram Negative Oswaldo Gram Positive Cocci Resulted Laboratory Tests 11/03/18 04:00: White Blood Count 11.3H, Red Blood Count 2.50L, Hemoglobin 6.7*L, Hematocrit 22.3L, Mean Corpuscular Volume 89, Mean Corpuscular Hemoglobin 26.7L, Mean Corpuscular Hemoglobin Concent 30.0L, Red Cell Distribution Width 17.7H, Platelet Count 122L, Mean Platelet Volume 11.5H, Neutrophils (%) (Auto) , Lymphocytes (%) (Auto) , Monocytes (%) (Auto) , Eosinophils (%) (Auto) , Basophils (%) (Auto) , Neutrophils % (Manual) [Pending], Lymphocytes % (Manual) [Pending], Platelet Estimate [Pending], Platelet Morphology [Pending], Erythrocyte Sedimentation Rate 127H, Sodium Level [Pending], Potassium Level [ Pending], Chloride Level [Pending], Carbon Dioxide Level [Pending], Blood Urea Nitrogen [Pending], Creatinine [Pending], Estimat Glomerular Filtration Rate [ Pending], Glucose Level [Pending], Uric Acid 2.5L, Calcium Level [Pending], Phosphorus Level [Pending], Magnesium Level [Pending], Total Bilirubin [Pending] , Aspartate Amino Transf (AST/SGOT) [Pending], Alanine Aminotransferase (ALT/ SGPT) [Pending], Alkaline Phosphatase [Pending], C-Reactive Protein, Quantitative [Pending], Pro-B-Type Natriuretic Peptide 4012H, Total Protein [ Pending], Albumin [Pending], Globulin [Pending] 11/03/18 06:40: White Blood Count 21.3#H, Red Blood Count 3.91L, Hemoglobin 11.6#L, Hematocrit 33.8#L, Mean Corpuscular Volume 86, Mean Corpuscular Hemoglobin 29.6, Mean Corpuscular Hemoglobin Concent 34.3, Red Cell Distribution Width 14.1, Platelet Count 159, Mean Platelet Volume 7.7, Neutrophils (%) (Auto) , Lymphocytes (%) ( Auto) , Monocytes (%) (Auto) , Eosinophils (%) (Auto) , Basophils (%) (Auto) , Neutrophils % (Manual) [Pending], Lymphocytes % (Manual) [Pending], Platelet Estimate [Pending], Platelet Morphology [Pending] Current Medications Medications (Trade) Dose Ordered Sig/Fab Route PRN Reason Start Time Stop Time Status Last Admin Dose Admin Acetaminophen (Tylenol) 650 mg Q4H PRN ORAL fever (temp>100.5 F) 11/01/18 13:30 11/28/18 17:29 11/02/18 03:47 Albuterol/ Ipratropium (Albuterol/ Ipratropium) 3 ml Q4H PRN HHN Shortness of Breath 11/01/18 13:30 11/03/18 17:29 Cefepime HCl 2 gm/ Dextrose 55 ml @ 110 mls/hr EVERY 8 HOURS IVPB 11/02/18 13:00 11/09/18 12:59 11/03/18 05:40 Chlorhexidine Gluconate (Licha-Hex 2%) 1 applic DAILY@2000 TOPIC 11/01/18 20:00 11/29/18 19:59 11/02/18 20:34 Diphenhydramine HCl (Benadryl) 25 mg Q6H PRN IVP Itching 11/01/18 11:30 11/28/18 17:29 11/02/18 03:47 Docusate Sodium (Colace) 100 mg THREE TIMES A DAY GT 11/01/18 18:00 12/01/18 17:59 Famotidine (Pepcid) 20 mg Q12HR ORAL 11/01/18 21:00 11/29/18 20:59 11/02/18 20:34 Heparin Sodium (Porcine) (Heparin 5000 units/ml) 5,000 units EVERY 12 HOURS SUBQ 11/01/18 21:00 11/28/18 08:59 11/02/18 08:48 Linezolid (Zyvox) 600 mg EVERY 12 HOURS GT 11/01/18 21:00 11/06/18 20:59 11/02/18 20:34 Midodrine (Pro-Amatine) 10 mg THREE TIMES A DAY GT 11/01/18 13:00 11/29/18 17:59 11/02/18 08:41 Morphine Sulfate (Morphine Sulfate) 2 mg Q4H PRN IVP Severe Pain (Pain Scale 7-10) 11/01/18 13:30 11/05/18 17:29 Ondansetron HCl (Zofran) 4 mg Q6H PRN IVP Nausea & Vomiting 11/01/18 11:30 11/28/18 17:29 Polyethylene Glycol (Miralax) 17 gm DAILYPRN PRN ORAL Constipation 11/01/18 17:30 11/30/18 17:29 Rigoberto Bryant MD Nov 03, 2018 07:13
[2018-11-03] MEDS ORDERED: Heparin1,000 units/500ml Premix(Conc:2 units/ml) IV PRN (07:15)
[2018-11-03] MEDS ORDERED: Lidocaine 1% Plain 30 ml INJ PRN (07:15)
[2018-11-03 07:18] LABS: ALANINE AMINOTRANSFERASE 44 U/L (12-78); ALBUMIN 1.4 G/DL (3.4-5.0); ALBUMIN/GLOBULIN RATIO 0.3 (1.0-2.7); ALKALINE PHOSPHATASE 81 U/L (46-116); ANION GAP 5 mmol/L (5-15); ASPARTATE AMINO TRANSFERASE 30 U/L (15-37); BILIRUBIN,TOTAL 0.2 MG/DL (0.2-1.0); BLOOD UREA NITROGEN 57 mg/dL (7-18); CALCIUM 8.8 MG/DL (8.5-10.1); CARBON DIOXIDE 31 MMOL/L (21-32); CHLORIDE 115 MMOL/L (98-107); CREATININE 0.7 MG/DL (0.55-1.30); PHOSPHORUS 3.4 MG/DL (2.5-4.9); POTASSIUM 4.1 MMOL/L (3.5-5.1); SODIUM 151 MMOL/L (136-145)
--- NOTE | 2018-11-03 07:31 | NUR ---
NURSE NOTES: received patient report from kolton rn. patient is on bed awake. not in acute distress. comfortable. on 2 Li NC. bed is low and locked for safety. will follow plan of care.
[2018-11-03 08:00] VITALS: BP 107/41
[2018-11-03] MEDS: Docusate 100mg/10ml Liq GT SCH ×3 (08:22→17:06)
[2018-11-03] MEDS: Heparin 5000 units/ml inj SUBQ SCH ×2 (08:25→20:08)
--- NOTE | 2018-11-03 11:26 | Diagnostic Imaging Report ---
EXAM: CT Abdomen and Pelvis With Intravenous Contrast CLINICAL HISTORY: ABSCESS TECHNIQUE: Axial computed tomography images of the abdomen and pelvis with intravenous contrast. CTDI is 19.51 mGy and DLP is 1228.30 mGy-cm. One or more of the following dose reduction techniques were used: automated exposure control, adjustment of the mA and/or kV according to patient size, use of iterative reconstruction technique. COMPARISON: CT abdomen/pelvis on 03/11/2017 FINDINGS: Liver: Hepatic cysts. Some of the hypodensities in the liver are too small to definitively characterize. Spleen: No. No focal lesion. Gallbladder: Distended gallbladder. No stones or biliary dilatation. Pancreas: Normal. No acute inflammation. No mass. Adrenal glands: Normal. No mass. Kidneys: 1.2 cm stone in the proximal right ureter. Moderate to severe right hydronephrosis. Additional stones in the right kidney and right renal pelvis, measuring up to approximately 1.8 cm and the right renal pelvis. Right perinephric fat stranding. No hydronephrosis or stone on the left. Bilateral renal cysts. Some of the hypodensities in the kidneys are too small to definitively characterize. Bowel: Wall thickening of the rectum may be secondary to fecal material versus proctitis. Dilated fluid and gas-filled small bowel loops with transition point in the right lower quadrant where there is swirling of mesenteric vessels and small bowel, concerning for volvulus causing obstruction. Urinary bladder: Suprapubic catheter in a decompressed bladder. Reproductive organs: Normal. Muscles: No mass. Subcutaneous tissues: Small fat-containing left inguinal hernia. Small fat-containing ventral hernias. Peritoneal space: Small amount of free fluid in the pelvis. Lymph nodes: Normal. No lymphadenopathy. Vessels: Normal. No aneurysm or dissection. Bones: Old fracture deformity of the inferior right pubic ramus. Lumbosacral transitional anatomy. Degenerative changes of the spine. No acute fracture or bony lesion. Lung bases: Small bilateral pleural effusions. Associated atelectasis. IMPRESSION: 1. Dilated fluid and gas-filled small bowel loops with transition point in the right lower quadrant where there is swirling of mesenteric vessels and small bowel, concerning for volvulus causing obstruction. 2. Wall thickening of the rectum may be secondary to fecal material versus proctitis. 3. Obstructing stone measuring 1.2 cm in the proximal right ureter. Moderate to severe right hydronephrosis. Additional stones in the right kidney and right renal pelvis, measuring up to approximately 1.8 cm and the right renal pelvis. 4. Small amount of free fluid in the pelvis. No abscess identified.
--- NOTE | 2018-11-03 11:28 | Cardiac Electrophysiology PN ---
Assessment/Plan Assessment/Plan 1. S/P Septic Shock and dehydration Lactic acidosis 2.4. Off Levophed and on IV antibiotics Echo Nl EF. WBC still 21K today MRSA/ P Mirabilis bacteremia may need to r/o endocarditis 2. Sinus tach 140s likely due to sepsis with fever. HR better 3. Inferior wall myocardial infarction based on electrocardiogram. Ruled out for myocardial infarction. EF 65% 4. Hypernatremia. 5. Renal failure. 6. CVA with paraplegia. 7. Status post suprapubic catheter. COLLETTE RN Subjective Subjective In SDU. No events. BP better Objective Last 24 Hour Vital Signs Date Time Temp Pulse Resp B/P (MAP) Pulse Ox O2 Delivery O2 Flow Rate FiO2 11/03/18 08:00 Nasal Cannula 2.0 11/03/18 08:00 104 11/03/18 08:00 97.6 110 24 107/41 (63) 98 11/03/18 04:00 93 11/03/18 04:00 97.7 105 25 106/47 (66) 98 11/03/18 04:00 Nasal Cannula 2.0 11/03/18 00:00 97.7 104 23 120/77 (91) 97 11/03/18 00:00 Nasal Cannula 2.0 11/03/18 00:00 106 11/02/18 20:21 112 18 99 Nasal Cannula 2.0 28 11/02/18 20:00 Nasal Cannula 2.0 11/02/18 20:00 98.4 96 22 110/84 (93) 99 11/02/18 19:21 122 11/02/18 17:23 114 11/02/18 16:00 Nasal Cannula 2.0 11/02/18 16:00 98.1 114 24 123/80 (94) 99 11/02/18 12:00 Nasal Cannula 2.0 11/02/18 12:00 98.2 114 23 152/108 (123) 96 11/02/18 11:45 115 Intake and Output 11/02/18 11/03/18 18:59 06:59 Intake Total 1107.5 ml 487.5 ml Output Total 650 ml 200 ml Balance 457.5 ml 287.5 ml Intake Free Water 100 ml IV Total 347.5 ml 102.5 ml Tube Feeding 660 ml 385 ml Output Urine Total 650 ml 200 ml # Bowel Movements 4 1 Laboratory Tests Test 11/03/18 04:00 11/03/18 06:40 White Blood Count 11.3 K/UL (4.8-10.8) H 21.3 K/UL (4.8-10.8) #H Red Blood Count 2.50 M/UL (4.70-6.10) L 3.91 M/UL (4.70-6.10) L Hemoglobin 6.7 G/DL (14.2-18.0) *L 11.6 G/DL (14.2-18.0) #L Hematocrit 22.3 % (42.0-52.0) L 33.8 % (42.0-52.0) #L Mean Corpuscular Volume 89 FL (80-99) 86 FL (80-99) Mean Corpuscular Hemoglobin 26.7 PG (27.0-31.0) L 29.6 PG (27.0-31.0) Mean Corpuscular Hemoglobin Concent 30.0 G/DL (32.0-36.0) L 34.3 G/DL (32.0-36.0) Red Cell Distribution Width 17.7 % (11.6-14.8) H 14.1 % (11.6-14.8) Platelet Count 122 K/UL (150-450) L 159 K/UL (150-450) Mean Platelet Volume 11.5 FL (6.5-10.1) H 7.7 FL (6.5-10.1) Neutrophils (%) (Auto) % (45.0-75.0) % (45.0-75.0) Lymphocytes (%) (Auto) % (20.0-45.0) % (20.0-45.0) Monocytes (%) (Auto) % (1.0-10.0) % (1.0-10.0) Eosinophils (%) (Auto) % (0.0-3.0) % (0.0-3.0) Basophils (%) (Auto) % (0.0-2.0) % (0.0-2.0) Differential Total Cells Counted 100 100 Neutrophils % (Manual) 81 % (45-75) H 89 % (45-75) H Lymphocytes % (Manual) 9 % (20-45) L 3 % (20-45) L Monocytes % (Manual) 5 % (1-10) 5 % (1-10) Eosinophils % (Manual) 5 % (0-3) H 0 % (0-3) Basophils % (Manual) 0 % (0-2) 0 % (0-2) Band Neutrophils 0 % (0-8) 3 % (0-8) Platelet Estimate Decreased L Adequate Platelet Morphology Normal Giant Platelets Occasional Polychromasia 1+ 1+ Hypochromasia 1+ 1+ Anisocytosis 1+ 1+ Erythrocyte Sedimentation Rate 127 MM/HR (0-20) H Sodium Level 151 MMOL/L (136-145) H Potassium Level 4.1 MMOL/L (3.5-5.1) Chloride Level 115 MMOL/L (98-107) H Carbon Dioxide Level 31 MMOL/L (21-32) Anion Gap 5 mmol/L (5-15) Blood Urea Nitrogen 57 mg/dL (7-18) H Creatinine 0.7 MG/DL (0.55-1.30) Estimat Glomerular Filtration Rate > 60 mL/min (>60) Glucose Level 118 MG/DL (74-106) H Uric Acid 2.5 MG/DL (2.6-7.2) L Calcium Level 8.8 MG/DL (8.5-10.1) # Phosphorus Level 3.4 MG/DL (2.5-4.9) Magnesium Level 2.3 MG/DL (1.8-2.4) Total Bilirubin 0.2 MG/DL (0.2-1.0) Aspartate Amino Transf (AST/SGOT) 30 U/L (15-37) Alanine Aminotransferase (ALT/SGPT) 44 U/L (12-78) Alkaline Phosphatase 81 U/L (46-116) C-Reactive Protein, Quantitative 2.5 mg/dL (0.00-0.90) H Pro-B-Type Natriuretic Peptide 4012 pg/mL (0-125) H Total Protein 5.8 G/DL (6.4-8.2) L Albumin 1.4 G/DL (3.4-5.0) L Globulin 4.4 g/dL Albumin/Globulin Ratio 0.3 (1.0-2.7) L Microbiology Date/Time Source Procedure Growth Status 11/01/18 11:30 Blood Blood Culture - Preliminary Gram Negative Oswaldo Gram Positive Cocci Resulted 11/01/18 11:15 Blood Blood Culture - Preliminary Gram Negative Oswaldo Gram Positive Cocci Resulted Objective HEAD AND NECK: No JVD. LUNGS: Coarse rhonchi. CARDIOVASCULAR: Tachycardic S1, S2 with no gallop. ABDOMEN: Soft, status post suprapubic catheter. EXTREMITIES: Bilateral lower extremity _. The arm is also contracted. Darnell Segundo MD Nov 03, 2018 11:28
[2018-11-03 12:00] VITALS: BP 137/96
--- NOTE | 2018-11-03 15:00 | Nephrology Progress Note ---
Assessment/Plan Problem List: (1) GILDARDO (acute kidney injury) (2) Septic shock (3) Suprapubic catheter (4) History of CVA (cerebrovascular accident) Assessment Acute renal failure- resolved Septic shock on presentation CVA Suprapubic cath / ? Neurogenic bladder HTN DVT UTI Plan K Phos IV stop Hydrate midodrine avoid nephrotoxics monitor renal parameters med surg? per orders Subjective ROS Limited/Unobtainable: No Constitutional: Reports: malaise Objective Objective Last 24 Hour Vital Signs Date Time Temp Pulse Resp B/P (MAP) Pulse Ox O2 Delivery O2 Flow Rate FiO2 11/03/18 12:00 92 11/03/18 12:00 Nasal Cannula 2.0 11/03/18 12:00 96.8 95 20 137/96 (110) 99 11/03/18 08:00 Nasal Cannula 2.0 11/03/18 08:00 104 11/03/18 08:00 97.6 110 24 107/41 (63) 98 11/03/18 04:00 93 11/03/18 04:00 97.7 105 25 106/47 (66) 98 11/03/18 04:00 Nasal Cannula 2.0 11/03/18 00:00 97.7 104 23 120/77 (91) 97 11/03/18 00:00 Nasal Cannula 2.0 11/03/18 00:00 106 11/02/18 20:21 112 18 99 Nasal Cannula 2.0 28 11/02/18 20:00 Nasal Cannula 2.0 11/02/18 20:00 98.4 96 22 110/84 (93) 99 11/02/18 19:21 122 11/02/18 17:23 114 11/02/18 16:00 Nasal Cannula 2.0 11/02/18 16:00 98.1 114 24 123/80 (94) 99 Intake and Output 11/02/18 11/03/18 18:59 06:59 Intake Total 1107.5 ml 487.5 ml Output Total 650 ml 200 ml Balance 457.5 ml 287.5 ml Intake Free Water 100 ml IV Total 347.5 ml 102.5 ml Tube Feeding 660 ml 385 ml Output Urine Total 650 ml 200 ml # Bowel Movements 4 1 Laboratory Tests 11/03/18 04:00: White Blood Count 11.3H, Red Blood Count 2.50L, Hemoglobin 6.7*L, Hematocrit 22.3L, Mean Corpuscular Volume 89, Mean Corpuscular Hemoglobin 26.7L, Mean Corpuscular Hemoglobin Concent 30.0L, Red Cell Distribution Width 17.7H, Platelet Count 122L, Mean Platelet Volume 11.5H, Neutrophils (%) (Auto) , Lymphocytes (%) (Auto) , Monocytes (%) (Auto) , Eosinophils (%) (Auto) , Basophils (%) (Auto) , Differential Total Cells Counted 100, Neutrophils % ( Manual) 81H, Lymphocytes % (Manual) 9L, Monocytes % (Manual) 5, Eosinophils % ( Manual) 5H, Basophils % (Manual) 0, Band Neutrophils 0, Platelet Estimate DecreasedL, Platelet Morphology , Giant Platelets Occasional, Polychromasia 1+, Hypochromasia 1+, Anisocytosis 1+, Erythrocyte Sedimentation Rate 127H, Sodium Level 151H, Potassium Level 4.1, Chloride Level 115H, Carbon Dioxide Level 31, Anion Gap 5, Blood Urea Nitrogen 57H, Creatinine 0.7, Estimat Glomerular Filtration Rate > 60, Glucose Level 118H, Uric Acid 2.5L, Calcium Level 8.8#, Phosphorus Level 3.4, Magnesium Level 2.3, Total Bilirubin 0.2, Aspartate Amino Transf (AST/SGOT) 30, Alanine Aminotransferase (ALT/SGPT) 44, Alkaline Phosphatase 81, C-Reactive Protein, Quantitative 2.5H, Pro-B-Type Natriuretic Peptide 4012H, Total Protein 5.8L, Albumin 1.4L, Globulin 4.4, Albumin/Globulin Ratio 0.3L 11/03/18 06:40: White Blood Count 21.3#H, Red Blood Count 3.91L, Hemoglobin 11.6#L, Hematocrit 33.8#L, Mean Corpuscular Volume 86, Mean Corpuscular Hemoglobin 29.6, Mean Corpuscular Hemoglobin Concent 34.3, Red Cell Distribution Width 14.1, Platelet Count 159, Mean Platelet Volume 7.7, Neutrophils (%) (Auto) , Lymphocytes (%) ( Auto) , Monocytes (%) (Auto) , Eosinophils (%) (Auto) , Basophils (%) (Auto) , Differential Total Cells Counted 100, Neutrophils % (Manual) 89H, Lymphocytes % (Manual) 3L, Monocytes % (Manual) 5, Eosinophils % (Manual) 0, Basophils % ( Manual) 0, Band Neutrophils 3, Platelet Estimate Adequate, Platelet Morphology Normal, Polychromasia 1+, Hypochromasia 1+, Anisocytosis 1+ Height (Feet): 5 Height (Inches): 8.00 Weight (Pounds): 250 General Appearance: no apparent distress Objective no change Pranav Grady MD Nov 03, 2018 15:00
--- NOTE | 2018-11-03 15:50 | NUR ---
CASE MANAGEMENT: REVIEW 11/03/2018 SI:SEPSIS. ARF. T 98.4 HR 96 RR 22 B/P 110/84 SATS 99% ON 2L/NC WBC 11.3 HGB 6.7 HCT 22.3 NA 151 CL 115 BUN 57 GLU 118 URIC ACID 2.5 BNP 4012 IS:CEFEPIME IV Q8H LINEZOLID GT Q12H PEPCID PO Q12H K PHOS IV Q6H MIDODRINE GT TID SDU PLAN OF CARE: CT ABD/PELVIS IMPRESSION: 1. Dilated fluid and gas-filled small bowel loops with transition point in the right lower quadrant where there is swirling of mesenteric vessels and small bowel, concerning for volvulus causing obstruction. 2. Wall thickening of the rectum may be secondary to fecal material versus proctitis. 3. Obstructing stone measuring 1.2 cm in the proximal right ureter. Moderate to severe right hydronephrosis. Additional stones in the right kidney and right renal pelvis, measuring up to approximately 1.8 cm and the right renal pelvis. 4. Small amount of free fluid in the pelvis. No abscess identified.
[2018-11-03 16:00] VITALS: BP 137/93
--- NOTE | 2018-11-03 19:20 | NUR ---
NURSE NOTES: Pt report received from wesly CHRISTOPHER EV. pt appears to be resting in bed, no distress noted. pt is alert and oriented times 1, and unable to follow simple commands. pts pupils are round and reactive to light and accommodating bilaterally. pt has a equipment monitor phototypesetting attached, able to display NSR on monitor, no acute signs symptoms of distress noted cardiac [place]. pt is on 2 L NC, able to sat 99%, no signs symptoms of acute respiratory distress noted. pt bed locked and low, bed armed, call light within reach, bed rails up times 3. will continue plan of care.
--- NOTE | 2018-11-03 19:30 | NUR ---
HAND-OFF: Report given to ivan levin.
[2018-11-03 20:00] VITALS: BP 147/92
[2018-11-03] MEDS ORDERED: Dyna-Hex 2% Top Sol 2oz TOPIC SCH (20:00)
--- NOTE | 2018-11-03 20:05 | NUR ---
NURSE NOTES: Heparin on hold due to PICC line placement tomorrow.
[2018-11-03] MEDS: Dyna-Hex 2% Top Sol 2oz TOPIC SCH (20:08)
--- NOTE | 2018-11-03 20:11 | General Progress Note ---
Assessment/Plan Status: unchanged Assessment/Plan: (1) Obstructive hydrocephalus ICD Codes: G91.1 - Obstructive hydrocephalus SNOMED: 224011846 (2) COPD (chronic obstructive pulmonary disease) ICD Codes: J44.9 - Chronic obstructive pulmonary disease, unspecified SNOMED: 49943420 (3) Diabetes mellitus ICD Codes: E11.9 - Type 2 diabetes mellitus without complications SNOMED: 54089368 (4) Feeding by G-tube ICD Codes: Z93.1 - Gastrostomy status SNOMED: 539793454, 892540687 (5) Sepsis ICD Codes: A41.9 - Sepsis, unspecified organism SNOMED: 61135662 (6) History of CVA (cerebrovascular accident) ICD Codes: Z86.73 - Personal history of transient ischemic attack (TIA), and cerebral infarction without residual deficits SNOMED: 700461673 (7) Encephalopathy chronic ICD Codes: G93.49 - Other encephalopathy SNOMED: 72848710 (8) UTI (urinary tract infection) ICD Codes: N39.0 - Urinary tract infection, site not specified SNOMED: 69592152 Qualifiers: Qualified Codes: N30.00 - Acute cystitis without hematuria (9) Septic shock ICD Codes: A41.9 - Sepsis, unspecified organism; R65.21 - Severe sepsis with septic shock SNOMED: 11495295 (10) ATN (acute tubular necrosis) ICD Codes: N17.0 - Acute kidney failure with tubular necrosis SNOMED: 90377025 Status: unchanged --> now med surg floor today, seen by cards, pulm --> now has been started on linezolid/cefepime --> id and cards recs reviewed --> ct with potential volvulus v proctitis, have consulted gi Subjective Constitutional: Denies: no symptoms, chills, diaphoresis, fever, malaise, weakness, other Cardiovascular: Denies: no symptoms, chest pain, edema, irregular heart rate, lightheadedness, palpitations, syncope, other Respiratory: Denies: no symptoms, cough, orthopnea, shortness of breath, SOB with excertion, SOB at rest, sputum, stridor, wheezing, other Gastrointestinal/Abdominal: Denies: no symptoms, abdomen distended, abdominal pain, black stools, tarry stools, blood in stool, constipated, diarrhea, difficulty swallowing, nausea, poor appetite, poor fluid intake, rectal bleeding , vomiting, other Genitourinary: Denies: no symptoms, burning, discharge, frequency, flank pain, hematuria, incontinence, pain, urgency, other Allergies: Coded Allergies: VANCOMYCIN (Verified Allergy, Mild, Redness , 10/29/18) CIPROFLOXACIN (Verified Allergy, Unknown, 08/23/15) Subjective 10/31: dc to med surg from icu, doing better 11/01: given 500cc ns for low bp, pcp was made aware as well as cards 11/02: on zyvox and cefepime, no fc, no bleeding, on feedings 11/03: on abx still, seen by id, and cards, r/o bacteremia induced by valve abnml Objective Last 24 Hour Vital Signs Date Time Temp Pulse Resp B/P (MAP) Pulse Ox O2 Delivery O2 Flow Rate FiO2 11/03/18 16:00 97.9 104 18 137/93 (108) 99 11/03/18 16:00 93 11/03/18 16:00 Nasal Cannula 2.0 11/03/18 12:00 92 11/03/18 12:00 Nasal Cannula 2.0 11/03/18 12:00 96.8 95 20 137/96 (110) 99 11/03/18 08:00 Nasal Cannula 2.0 11/03/18 08:00 104 11/03/18 08:00 97.6 110 24 107/41 (63) 98 11/03/18 07:05 102 18 98 Nasal Cannula 2.0 28 11/03/18 04:00 93 11/03/18 04:00 97.7 105 25 106/47 (66) 98 11/03/18 04:00 Nasal Cannula 2.0 11/03/18 00:00 97.7 104 23 120/77 (91) 97 11/03/18 00:00 Nasal Cannula 2.0 11/03/18 00:00 106 11/02/18 20:21 112 18 99 Nasal Cannula 2.0 28 Intake and Output 11/02/18 11/03/18 19:00 07:00 Intake Total 1052.5 ml 487.5 ml Output Total 650 ml 200 ml Balance 402.5 ml 287.5 ml Intake Free Water 100 ml IV Total 347.5 ml 102.5 ml Tube Feeding 605 ml 385 ml Output Urine Total 650 ml 200 ml # Bowel Movements 4 1 Laboratory Tests 11/03/18 04:00: White Blood Count 11.3H, Red Blood Count 2.50L, Hemoglobin 6.7*L, Hematocrit 22.3L, Mean Corpuscular Volume 89, Mean Corpuscular Hemoglobin 26.7L, Mean Corpuscular Hemoglobin Concent 30.0L, Red Cell Distribution Width 17.7H, Platelet Count 122L, Mean Platelet Volume 11.5H, Neutrophils (%) (Auto) , Lymphocytes (%) (Auto) , Monocytes (%) (Auto) , Eosinophils (%) (Auto) , Basophils (%) (Auto) , Differential Total Cells Counted 100, Neutrophils % ( Manual) 81H, Lymphocytes % (Manual) 9L, Monocytes % (Manual) 5, Eosinophils % ( Manual) 5H, Basophils % (Manual) 0, Band Neutrophils 0, Platelet Estimate DecreasedL, Platelet Morphology , Giant Platelets Occasional, Polychromasia 1+, Hypochromasia 1+, Anisocytosis 1+, Erythrocyte Sedimentation Rate 127H, Sodium Level 151H, Potassium Level 4.1, Chloride Level 115H, Carbon Dioxide Level 31, Anion Gap 5, Blood Urea Nitrogen 57H, Creatinine 0.7, Estimat Glomerular Filtration Rate > 60, Glucose Level 118H, Uric Acid 2.5L, Calcium Level 8.8#, Phosphorus Level 3.4, Magnesium Level 2.3, Total Bilirubin 0.2, Aspartate Amino Transf (AST/SGOT) 30, Alanine Aminotransferase (ALT/SGPT) 44, Alkaline Phosphatase 81, C-Reactive Protein, Quantitative 2.5H, Pro-B-Type Natriuretic Peptide 4012H, Total Protein 5.8L, Albumin 1.4L, Globulin 4.4, Albumin/Globulin Ratio 0.3L 11/03/18 06:40: White Blood Count 21.3#H, Red Blood Count 3.91L, Hemoglobin 11.6#L, Hematocrit 33.8#L, Mean Corpuscular Volume 86, Mean Corpuscular Hemoglobin 29.6, Mean Corpuscular Hemoglobin Concent 34.3, Red Cell Distribution Width 14.1, Platelet Count 159, Mean Platelet Volume 7.7, Neutrophils (%) (Auto) , Lymphocytes (%) ( Auto) , Monocytes (%) (Auto) , Eosinophils (%) (Auto) , Basophils (%) (Auto) , Differential Total Cells Counted 100, Neutrophils % (Manual) 89H, Lymphocytes % (Manual) 3L, Monocytes % (Manual) 5, Eosinophils % (Manual) 0, Basophils % ( Manual) 0, Band Neutrophils 3, Platelet Estimate Adequate, Platelet Morphology Normal, Polychromasia 1+, Hypochromasia 1+, Anisocytosis 1+ Height (Feet): 5 Height (Inches): 8.00 Weight (Pounds): 250 Objective Physical Exam General Appearance: A+O x3, NAD HEENT: normocephalic, atraumatic Neck: non-tender, normal alignment Respiratory/Chest: chest wall non-tender, lungs clear Cardiovascular/Chest: normal peripheral pulses, normal rate Abdomen: normal bowel sounds, non tender ++ peg Extremities: normal range of motion Nathan Ludwig MD Nov 03, 2018 20:11
[2018-11-04] VITALS: BP 138/86
[2018-11-04 04:00] VITALS: BP 145/89
[2018-11-04 05:11] LABS: BASOPHILS % (AUTO) 0.7 % (0.0-2.0); EOSINOPHILS % (AUTO) 1.2 % (0.0-3.0); HEMATOCRIT 33.1 % (42.0-52.0); HEMOGLOBIN 10.7 G/DL (14.2-18.0); MEAN CORPUSCULAR VOLUME 87 FL (80-99); MONOCYTES % (AUTO) 7.8 % (1.0-10.0); NEUTROPHILS % (AUTO) 75.3 % (45.0-75.0); PLATELET COUNT 166 K/UL (150-450); RED CELL DISTRIBUTION WIDTH 14.3 % (11.6-14.8); WHITE BLOOD COUNT 15.8 K/UL (4.8-10.8)
[2018-11-04 05:29] LABS: ALANINE AMINOTRANSFERASE 7 U/L (12-78); ALBUMIN 1.7 G/DL (3.4-5.0); ALBUMIN/GLOBULIN RATIO 0.3 (1.0-2.7); ALKALINE PHOSPHATASE 78 U/L (46-116); ANION GAP 5 mmol/L (5-15); ASPARTATE AMINO TRANSFERASE 17 U/L (15-37); BILIRUBIN,TOTAL 0.4 MG/DL (0.2-1.0); BLOOD UREA NITROGEN 24 mg/dL (7-18); CALCIUM 7.3 MG/DL (8.5-10.1); CARBON DIOXIDE 28 MMOL/L (21-32); CHLORIDE 112 MMOL/L (98-107); PHOSPHORUS 2.4 MG/DL (2.5-4.9); POTASSIUM 3.6 MMOL/L (3.5-5.1); SODIUM 145 MMOL/L (136-145)
[2018-11-04] MEDS: Cefepime HCl 2 GM in D5W 55 ML IVPB SCH ×3 (05:45→21:54)
--- NOTE | 2018-11-04 07:05 | NUR ---
NURSE NOTES: received patient report and update from ivan levin. patient is on bed awake. not in acute distress. for PICC placement today. consent signed via telephone. will follow plan of care.
--- NOTE | 2018-11-04 07:07 | NUR ---
HAND-OFF: Report given to Elidia CHRISTOPHER EV.
[2018-11-04 08:00] VITALS: BP_SYST 132; BP_SYST 91; BP_DIAS 53; BP_DIAS 95
--- NOTE | 2018-11-04 08:00 | NUR ---
NURSE NOTES: left a message to dr artis if he wants to dc PICC placement today, that an IV access was obtained on the R foot. awaits callback and new order.
[2018-11-04] MEDS: Docusate 100mg/10ml Liq GT SCH ×3 (08:02→17:11)
[2018-11-04] MEDS: Heparin 5000 units/ml inj SUBQ SCH ×2 (08:02→20:40)
--- NOTE | 2018-11-04 08:41 | General Progress Note ---
Assessment/Plan Status: unchanged Assessment/Plan: (1) Obstructive hydrocephalus ICD Codes: G91.1 - Obstructive hydrocephalus SNOMED: 473604069 (2) COPD (chronic obstructive pulmonary disease) ICD Codes: J44.9 - Chronic obstructive pulmonary disease, unspecified SNOMED: 92909137 (3) Diabetes mellitus ICD Codes: E11.9 - Type 2 diabetes mellitus without complications SNOMED: 54288676 (4) Feeding by G-tube ICD Codes: Z93.1 - Gastrostomy status SNOMED: 440045650, 769696734 (5) Sepsis ICD Codes: A41.9 - Sepsis, unspecified organism SNOMED: 31318363 (6) History of CVA (cerebrovascular accident) ICD Codes: Z86.73 - Personal history of transient ischemic attack (TIA), and cerebral infarction without residual deficits SNOMED: 982258349 (7) Encephalopathy chronic ICD Codes: G93.49 - Other encephalopathy SNOMED: 30512841 (8) UTI (urinary tract infection) ICD Codes: N39.0 - Urinary tract infection, site not specified SNOMED: 03840310 Qualifiers: Qualified Codes: N30.00 - Acute cystitis without hematuria (9) Septic shock ICD Codes: A41.9 - Sepsis, unspecified organism; R65.21 - Severe sepsis with septic shock SNOMED: 31299968 (10) ATN (acute tubular necrosis) ICD Codes: N17.0 - Acute kidney failure with tubular necrosis SNOMED: 83885094 Status: unchanged --> now med surg floor today, seen by cards, pulm --> now has been started on linezolid/cefepime --> id and cards recs reviewed --> ct with potential volvulus v proctitis, have consulted gi --> potentially picc placement Subjective Constitutional: Denies: no symptoms, chills, diaphoresis, fever, malaise, weakness, other HEENT: Denies: no symptoms, eye pain, blurred vision, tearing, double vision, ear pain, ear discharge, nose pain, nose congestion, throat pain, throat swelling, mouth pain, mouth swelling, other Cardiovascular: Denies: no symptoms, chest pain, edema, irregular heart rate, lightheadedness, palpitations, syncope, other Respiratory: Denies: no symptoms, cough, orthopnea, shortness of breath, SOB with excertion, SOB at rest, sputum, stridor, wheezing, other Gastrointestinal/Abdominal: Denies: no symptoms, abdomen distended, abdominal pain, black stools, tarry stools, blood in stool, constipated, diarrhea, difficulty swallowing, nausea, poor appetite, poor fluid intake, rectal bleeding , vomiting, other 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: Denies: no symptoms, anxiety, depressed, emotional problems, headache, numbness, paresthesia, pre-existing deficit, seizure, tingling, tremors, weakness, other Endocrine: Denies: no symptoms, excessive sweating, flushing, intolerance to cold, intolerance to heat, increased hunger, increased thirst, increased urine, unexplained weight gain, unexplained weight loss, other Allergies: Coded Allergies: VANCOMYCIN (Verified Allergy, Mild, Redness , 10/29/18) CIPROFLOXACIN (Verified Allergy, Unknown, 08/23/15) Subjective 10/31: dc to med surg from icu, doing better 11/01: given 500cc ns for low bp, pcp was made aware as well as cards 11/02: on zyvox and cefepime, no fc, no bleeding, on feedings 11/03: on abx still, seen by id, and cards, r/o bacteremia induced by valve abnml 11/04: iv is on the right foot, pending potentially picc Objective Last 24 Hour Vital Signs Date Time Temp Pulse Resp B/P (MAP) Pulse Ox O2 Delivery O2 Flow Rate FiO2 11/04/18 08:00 97.9 88 22 132/95 (107) 100 11/04/18 04:00 Nasal Cannula 2.0 11/04/18 04:00 98.1 98 18 145/89 (107) 100 11/04/18 03:34 93 11/04/18 00:00 Nasal Cannula 2.0 11/04/18 00:00 97.8 105 18 138/86 (103) 98 11/03/18 23:24 96 11/03/18 20:00 101 20 98 Room Air 21 11/03/18 20:00 98.0 116 18 147/92 (110) 98 11/03/18 20:00 Nasal Cannula 2.0 11/03/18 19:00 111 11/03/18 16:00 97.9 104 18 137/93 (108) 99 11/03/18 16:00 93 11/03/18 16:00 Nasal Cannula 2.0 11/03/18 12:00 92 11/03/18 12:00 Nasal Cannula 2.0 11/03/18 12:00 96.8 95 20 137/96 (110) 99 Intake and Output 11/03/18 11/04/18 19:00 07:00 Intake Total 895 ml 1070 ml Output Total 450 ml 500 ml Balance 445 ml 570 ml Intake Free Water 180 ml 300 ml IV Total 110 ml 110 ml Tube Feeding 605 ml 660 ml Output Urine Total 450 ml 500 ml # Bowel Movements 4 1 Laboratory Tests 11/04/18 04:00: White Blood Count 15.8H, Red Blood Count 3.80L, Hemoglobin 10.7L, Hematocrit 33.1L, Mean Corpuscular Volume 87, Mean Corpuscular Hemoglobin 28.1, Mean Corpuscular Hemoglobin Concent 32.3, Red Cell Distribution Width 14.3, Platelet Count 166, Mean Platelet Volume 7.6, Neutrophils (%) (Auto) 75.3H, Lymphocytes ( %) (Auto) 15.0L, Monocytes (%) (Auto) 7.8, Eosinophils (%) (Auto) 1.2, Basophils (%) (Auto) 0.7, Erythrocyte Sedimentation Rate 96H, Sodium Level 145, Potassium Level 3.6, Chloride Level 112H, Carbon Dioxide Level 28, Anion Gap 5, Blood Urea Nitrogen 24H, Creatinine 1.0, Estimat Glomerular Filtration Rate > 60 , Glucose Level 106, Calcium Level 7.3L, Phosphorus Level 2.4L, Magnesium Level 2.3, Total Bilirubin 0.4, Aspartate Amino Transf (AST/SGOT) 17, Alanine Aminotransferase (ALT/SGPT) 7L, Alkaline Phosphatase 78, C-Reactive Protein, Quantitative 16.9H, Total Protein 7.1, Albumin 1.7L, Globulin 5.4, Albumin/ Globulin Ratio 0.3L Height (Feet): 5 Height (Inches): 8.00 Weight (Pounds): 249 Objective Physical Exam General Appearance: A+O x3, NAD HEENT: normocephalic, atraumatic Neck: non-tender, normal alignment Respiratory/Chest: chest wall non-tender, lungs clear Cardiovascular/Chest: normal peripheral pulses, normal rate Abdomen: normal bowel sounds, non tender ++ peg Extremities: normal range of motion Kleynberg,Nathan L. MD Nov 04, 2018 08:41
--- NOTE | 2018-11-04 10:28 | Nephrology Progress Note ---
Assessment/Plan Problem List: (1) GILDARDO (acute kidney injury) (2) Septic shock (3) Suprapubic catheter (4) History of CVA (cerebrovascular accident) Assessment Acute renal failure- resolved Septic shock on presentation CVA Suprapubic cath / ? Neurogenic bladder HTN DVT UTI Plan K Phos IV stop Hydrate midodrine avoid nephrotoxics monitor renal parameters med surg? per orders Subjective ROS Limited/Unobtainable: No Constitutional: Reports: malaise Objective Objective Last 24 Hour Vital Signs Date Time Temp Pulse Resp B/P (MAP) Pulse Ox O2 Delivery O2 Flow Rate FiO2 11/04/18 09:14 87 20 98 Room Air 21 11/04/18 08:00 Nasal Cannula 2.0 11/04/18 08:00 97.9 88 22 132/95 (107) 100 11/04/18 04:00 Nasal Cannula 2.0 11/04/18 04:00 98.1 98 18 145/89 (107) 100 11/04/18 03:34 93 11/04/18 00:00 Nasal Cannula 2.0 11/04/18 00:00 97.8 105 18 138/86 (103) 98 11/03/18 23:24 96 11/03/18 20:00 101 20 98 Room Air 21 11/03/18 20:00 98.0 116 18 147/92 (110) 98 11/03/18 20:00 Nasal Cannula 2.0 11/03/18 19:00 111 11/03/18 16:00 97.9 104 18 137/93 (108) 99 11/03/18 16:00 93 11/03/18 16:00 Nasal Cannula 2.0 11/03/18 12:00 92 11/03/18 12:00 Nasal Cannula 2.0 11/03/18 12:00 96.8 95 20 137/96 (110) 99 Intake and Output 11/03/18 11/04/18 19:00 07:00 Intake Total 895 ml 1070 ml Output Total 450 ml 500 ml Balance 445 ml 570 ml Intake Free Water 180 ml 300 ml IV Total 110 ml 110 ml Tube Feeding 605 ml 660 ml Output Urine Total 450 ml 500 ml # Bowel Movements 4 1 Laboratory Tests 11/04/18 04:00: White Blood Count 15.8H, Red Blood Count 3.80L, Hemoglobin 10.7L, Hematocrit 33.1L, Mean Corpuscular Volume 87, Mean Corpuscular Hemoglobin 28.1, Mean Corpuscular Hemoglobin Concent 32.3, Red Cell Distribution Width 14.3, Platelet Count 166, Mean Platelet Volume 7.6, Neutrophils (%) (Auto) 75.3H, Lymphocytes ( %) (Auto) 15.0L, Monocytes (%) (Auto) 7.8, Eosinophils (%) (Auto) 1.2, Basophils (%) (Auto) 0.7, Erythrocyte Sedimentation Rate 96H, Sodium Level 145, Potassium Level 3.6, Chloride Level 112H, Carbon Dioxide Level 28, Anion Gap 5, Blood Urea Nitrogen 24H, Creatinine 1.0, Estimat Glomerular Filtration Rate > 60 , Glucose Level 106, Calcium Level 7.3L, Phosphorus Level 2.4L, Magnesium Level 2.3, Total Bilirubin 0.4, Aspartate Amino Transf (AST/SGOT) 17, Alanine Aminotransferase (ALT/SGPT) 7L, Alkaline Phosphatase 78, C-Reactive Protein, Quantitative 16.9H, Total Protein 7.1, Albumin 1.7L, Globulin 5.4, Albumin/ Globulin Ratio 0.3L Height (Feet): 5 Height (Inches): 8.00 Weight (Pounds): 249 General Appearance: no apparent distress Cardiovascular: tachycardia Respiratory/Chest: decreased breath sounds Abdomen: distended Objective no change Pranav Grady MD Nov 04, 2018 10:28
[2018-11-04] MEDS ORDERED: Potassium Phosphate 20 MM in NS 275 ML IV ONE (10:30)
--- NOTE | 2018-11-04 10:48 | GI Initial Consult Note ---
History of Present Illness General Date patient seen: Nov 04, 2018 Time patient seen: 10:42 Reason for Hospitalization: Altered Mental Status Referring physician: TANIA LEÓN Reason for Consultation: PROCTITIS Present Illness HPI This is a 58-year-old male [facility] patient. He presents with chief complaint of fever tachycardia and sepsis. He is being treated for UTI with Cipro. He had a fever [facility]. I was also very tachycardic. Unable to get any history from this patient because of his condition. GI consulted for reported proctitis versus fecal material noted on recent CT. ROS limited, patient unable to provide any significant history. Patient seen, awake alert oriented no apparent distress with no active signs or symptoms of nausea or vomiting. Abdomen is soft, nondistended, non-tympanic, nontender. Recent abdominal pelvis CT noted for dilated fluid and gas-filled small bowel loops concerning for volvulus. In addition was noted with wall thickening of the rectum. Patient has history of endoscopy with PEG placement in November 2016. Home Meds Active Scripts Famotidine (FAMOTIDINE) 20 Mg Tablet, 20 MG GT BID, #30 TAB Prov:Gabo Smith MD 04/05/18 Carvedilol (Coreg) 6.25 Mg Tablet, 6.25 MG GT EVERY 12 HOURS, #30 TAB Prov:Gabo Smith MD 04/05/18 Reported Medications Amino Acids/Protein Hydrolys (PRO-STAT LIQUID) 30 Ml Liquid.pkt, 30 ML GT DAILY , ML 10/29/18 Sennosides (SENNA) 8.6 Mg Tablet, 17.2 MG GT QHS, TAB HOLD FOR LBM 10/29/18 Acetaminophen* (TYLENOL EXTRA STRENGTH*) 500 Mg Tablet, 2 TAB GT Q4H PRN for Moderate Pain (Pain Scale 4-6) 01/03/18 Cranberry Fruit Concentrate (CRANBERRY) 450 Mg Capsule, 900 MG GT BID, CAP 06/20/17 Na Phos,M-B/Na Phos,Di-Ba (Fleet Enema) 133 Ml Enema, 133 ML RC QOD PRN for Constipation, EA IF DULCOLAX IS INEFFECTIVE 11/05/16 Bisacodyl (DULCOLAX) 10 Mg Supp.rect, 10 MG RC PRN, SUPP IF MOM IS INEFFECTIVE 11/05/16 Multivitamin With Minerals (MULTIVITAMINS WITH MINERALS*) 1 Each Tablet, 5 ML GT DAILY, TAB 11/05/16 Acetaminophen (Tylenol) 325 Mg Tab, 650 MG GT Q4H PRN for Mild Pain (Pain Scale 1-3) AND OR TEMP > 101 F 08/23/15 Magnesium Hydroxide* (MILK OF MAGNESIA*) 400 Mg/5 Ml Oral.susp, 30 ML GT QHS PRN for Constipation IF ORDERED STOOL SOFTENERS ARE INEFFECTIVE 08/23/15 Discontinued Reported Medications Senna [place] Extract (SENNA) 176 Mg/5 Ml Syrup, 17.6 MG GT HS, ML 10/29/18 Rivaroxaban (XARELTO) 15 Mg Tablet, 15 MG GT BID 01/03/18 Docusate Sodium* (COLACE*) 100 Mg Capsule, 100 MG GT DAILY, CAP 01/03/18 Discontinued Scripts Trimethoprim/Sulfamethoxazole (Bactrim Ds Tablet) 1 Each Tablet, 1 TAB ORAL TWICE A DAY for 7 Days, #14 TAB Prov:Gabo Smith MD 08/09/18 Med list reviewed/reconciled: Yes Allergies: Coded Allergies: VANCOMYCIN (Verified Allergy, Mild, Redness , 10/29/18) CIPROFLOXACIN (Verified Allergy, Unknown, 08/23/15) Patient History Limited by: medical condition History Provided By: Medical Record PMH Narrative Past Medical History: see triage record, old chart reviewed Past Surgical History: other Pertinent Family History: none Social History: Denies: smoking Immunizations: other Reviewed Nursing Documentation: PMH: Agreed; PSxH: Agreed Nursing Documentation-PMH Hx Cardiac Problems: Yes - tachycardia, DVT Hx COPD: Yes Hx Diabetes: Yes - type 2 Hx Cancer: No Hx Gastrointestinal Problems: Yes - Dysphagia Hx Neurological Problems: Yes - Encephalopathy Hx Cerebrovascular Accident: Yes Hx Transient Ischemic Attacks: Yes Hx Seizures: Yes - CRF Hx Paralysis: Yes - paraplegic Hx Speech Problem: Yes Hx Aphasia: Yes Review of Systems All Other Systems: limited Physical Exam Vital Signs Date Time Temp Pulse Resp B/P (MAP) Pulse Ox O2 Delivery O2 Flow Rate FiO2 10/31/18 07:00 96 20 116/78 (91) 95 10/31/18 08:00 Room Air 10/31/18 12:00 98.7 10/31/18 19:50 21 11/01/18 00:11 2.0 Sp02 EP Interpretation: reviewed, normal Labs Laboratory Tests Test 11/04/18 04:00 White Blood Count 15.8 K/UL (4.8-10.8) H Red Blood Count 3.80 M/UL (4.70-6.10) L Hemoglobin 10.7 G/DL (14.2-18.0) L Hematocrit 33.1 % (42.0-52.0) L Mean Corpuscular Volume 87 FL (80-99) Mean Corpuscular Hemoglobin 28.1 PG (27.0-31.0) Mean Corpuscular Hemoglobin Concent 32.3 G/DL (32.0-36.0) Red Cell Distribution Width 14.3 % (11.6-14.8) Platelet Count 166 K/UL (150-450) Mean Platelet Volume 7.6 FL (6.5-10.1) Neutrophils (%) (Auto) 75.3 % (45.0-75.0) H Lymphocytes (%) (Auto) 15.0 % (20.0-45.0) L Monocytes (%) (Auto) 7.8 % (1.0-10.0) Eosinophils (%) (Auto) 1.2 % (0.0-3.0) Basophils (%) (Auto) 0.7 % (0.0-2.0) Erythrocyte Sedimentation Rate 96 MM/HR (0-20) H Sodium Level 145 MMOL/L (136-145) Potassium Level 3.6 MMOL/L (3.5-5.1) Chloride Level 112 MMOL/L (98-107) H Carbon Dioxide Level 28 MMOL/L (21-32) Anion Gap 5 mmol/L (5-15) Blood Urea Nitrogen 24 mg/dL (7-18) H Creatinine 1.0 MG/DL (0.55-1.30) Estimat Glomerular Filtration Rate > 60 mL/min (>60) Glucose Level 106 MG/DL (74-106) Calcium Level 7.3 MG/DL (8.5-10.1) L Phosphorus Level 2.4 MG/DL (2.5-4.9) L Magnesium Level 2.3 MG/DL (1.8-2.4) Total Bilirubin 0.4 MG/DL (0.2-1.0) Aspartate Amino Transf (AST/SGOT) 17 U/L (15-37) Alanine Aminotransferase (ALT/SGPT) 7 U/L (12-78) L Alkaline Phosphatase 78 U/L (46-116) C-Reactive Protein, Quantitative 16.9 mg/dL (0.00-0.90) H Total Protein 7.1 G/DL (6.4-8.2) Albumin 1.7 G/DL (3.4-5.0) L Globulin 5.4 g/dL Albumin/Globulin Ratio 0.3 (1.0-2.7) L General Appearance: no apparent distress Head: normocephalic EENT: PERRL/EOMI, normal ENT inspection Neck: supple Respiratory: normal breath sounds, no respiratory distress Cardiovascular: normal rate Gastrointestinal: normal inspection, non tender, soft, normal bowel sounds, non -distended Rectal: deferred Genitourinary: deferred Musculoskeletal: normal inspection, back normal Neurologic: alert, responsive Skin: normal inspection, normal color, no rash, warm/dry, palpation normal, well hydrated Lymphatic: normal inspection, no adenopathy Current Medications Current Medications Medications (Trade) Dose Ordered Sig/Fab Route PRN Reason Start Time Stop Time Status Last Admin Dose Admin Acetaminophen (Tylenol) 650 mg Q4H PRN ORAL fever (temp>100.5 F) 11/01/18 13:30 11/28/18 17:29 11/02/18 03:47 Cefepime HCl 2 gm/ Dextrose 55 ml @ 110 mls/hr EVERY 8 HOURS IVPB 11/02/18 13:00 11/09/18 12:59 11/04/18 05:45 Chlorhexidine Gluconate (Licha-Hex 2%) 1 applic DAILY@2000 TOPIC 11/01/18 20:00 11/29/18 19:59 11/03/18 20:08 Diphenhydramine HCl (Benadryl) 25 mg Q6H PRN IVP Itching 11/01/18 11:30 11/28/18 17:29 11/02/18 03:47 Docusate Sodium (Colace) 100 mg THREE TIMES A DAY GT 11/01/18 18:00 12/01/18 17:59 Famotidine (Pepcid) 20 mg Q12HR ORAL 11/01/18 21:00 11/29/18 20:59 11/04/18 08:02 Heparin Sodium (Porcine) (Heparin 5000 units/ml) 5,000 units EVERY 12 HOURS SUBQ 11/01/18 21:00 11/28/18 08:59 11/03/18 08:25 Heparin Sodium/ Sodium Chloride (Heparin 1000 units/500ml Premix) 1,000 unit ONCE PRN IV PICC LINE PLACEMENT 11/03/18 07:15 11/04/18 23:59 Lidocaine HCl (Xylocaine 1% 30ml) 30 ml ONCE PRN INJ PICC PLACEMENT 11/03/18 07:15 11/04/18 23:59 Linezolid (Zyvox) 600 mg EVERY 12 HOURS GT 11/01/18 21:00 11/06/18 20:59 11/04/18 08:02 Midodrine (Pro-Amatine) 10 mg THREE TIMES A DAY GT 11/01/18 13:00 11/29/18 17:59 11/03/18 08:23 Morphine Sulfate (Morphine Sulfate) 2 mg Q4H PRN IVP Severe Pain (Pain Scale 7-10) 11/01/18 13:30 11/05/18 17:29 Ondansetron HCl (Zofran) 4 mg Q6H PRN IVP Nausea & Vomiting 11/01/18 11:30 11/28/18 17:29 Polyethylene Glycol (Miralax) 17 gm DAILYPRN PRN ORAL Constipation 11/01/18 17:30 11/30/18 17:29 Potassium Phosphate 20 mm/ Sodium Chloride 281.6667 ml @ 46.944 m... ONCE ONCE IV 11/04/18 10:30 11/04/18 16:29 GI: Plan Problems: (1) Gastrostomy tube dependent (2) Fecal impaction (3) Proctitis (4) Volvulus (5) Anemia (6) Feeding by G-tube Plan Consider surgical consultation given possible volvulus seen on recent CT, may need SBFT. Patient may benefit from colonoscopy to evaluate proctitis once volvulus ruled out, can be done as outpatient. Anemia work-up reviewed Occult blood stool to rule out any GI bleed G-tube feedings per RD Prevacid Monitor H&H, PRN transfusions Bowel regimen Follow-up labs Discussed with Dr. Faust. Thank you for this patient referral, we will follow. The patient was seen and examined at bedside and all new and available data was reviewed in the patients chart. I agree with the above findings, impression and plan. (Patient seen earlier today. Signature stamp does not reflect patient encounter time.). - MD Damaris BardalesAbrazo [facility] HospitalHo ELLISON Nov 04, 2018 10:48
--- NOTE | 2018-11-04 11:13 | Pulmonology Progress Note ---
Assessment/Plan Problems: (1) Septic shock (2) ATN (acute tubular necrosis) (3) COPD (chronic obstructive pulmonary disease) (4) Encephalopathy chronic (5) Obstructive hydrocephalus (6) History of DVT (deep vein thrombosis) (7) Suprapubic catheter (8) Aphasia (9) Feeding by G-tube (10) History of CVA (cerebrovascular accident) Assessment/Plan no new more stable persistent bacteremia less tachy respiratory treatment titrate fio2 to sat of 92% renal function better. Subjective ROS Limited/Unobtainable: Yes Constitutional: Reports: no symptoms HEENT: Repors: no symptoms Allergies: Coded Allergies: VANCOMYCIN (Verified Allergy, Mild, Redness , 10/29/18) CIPROFLOXACIN (Verified Allergy, Unknown, 08/23/15) Objective Last 24 Hour Vital Signs Date Time Temp Pulse Resp B/P (MAP) Pulse Ox O2 Delivery O2 Flow Rate FiO2 11/04/18 09:14 87 20 98 Room Air 21 11/04/18 08:00 Nasal Cannula 2.0 11/04/18 08:00 97.9 88 22 132/95 (107) 100 11/04/18 04:00 Nasal Cannula 2.0 11/04/18 04:00 98.1 98 18 145/89 (107) 100 11/04/18 03:34 93 11/04/18 00:00 Nasal Cannula 2.0 11/04/18 00:00 97.8 105 18 138/86 (103) 98 11/03/18 23:24 96 11/03/18 20:00 101 20 98 Room Air 21 11/03/18 20:00 98.0 116 18 147/92 (110) 98 11/03/18 20:00 Nasal Cannula 2.0 11/03/18 19:00 111 11/03/18 16:00 97.9 104 18 137/93 (108) 99 11/03/18 16:00 93 11/03/18 16:00 Nasal Cannula 2.0 11/03/18 12:00 92 11/03/18 12:00 Nasal Cannula 2.0 11/03/18 12:00 96.8 95 20 137/96 (110) 99 Intake and Output 11/03/18 11/04/18 19:00 07:00 Intake Total 895 ml 1070 ml Output Total 450 ml 500 ml Balance 445 ml 570 ml Intake Free Water 180 ml 300 ml IV Total 110 ml 110 ml Tube Feeding 605 ml 660 ml Output Urine Total 450 ml 500 ml # Bowel Movements 4 1 General Appearance: WD/WN HEENT: atraumatic, mucous membranes moist Respiratory/Chest: chest wall non-tender, normal breath sounds Cardiovascular: normal peripheral pulses, regular rhythm Abdomen: soft, non tender, non distended Extremities: no cyanosis Skin: no rash Microbiology Date/Time Source Procedure Growth Status 11/01/18 11:30 Blood Blood Culture - Preliminary Gram Negative Oswaldo Gram Positive Cocci Resulted 11/01/18 11:15 Blood Blood Culture - Preliminary Gram Negative Oswaldo Enterococcus Faecalis Resulted Laboratory Tests 11/04/18 04:00: White Blood Count 15.8H, Red Blood Count 3.80L, Hemoglobin 10.7L, Hematocrit 33.1L, Mean Corpuscular Volume 87, Mean Corpuscular Hemoglobin 28.1, Mean Corpuscular Hemoglobin Concent 32.3, Red Cell Distribution Width 14.3, Platelet Count 166, Mean Platelet Volume 7.6, Neutrophils (%) (Auto) 75.3H, Lymphocytes ( %) (Auto) 15.0L, Monocytes (%) (Auto) 7.8, Eosinophils (%) (Auto) 1.2, Basophils (%) (Auto) 0.7, Erythrocyte Sedimentation Rate 96H, Sodium Level 145, Potassium Level 3.6, Chloride Level 112H, Carbon Dioxide Level 28, Anion Gap 5, Blood Urea Nitrogen 24H, Creatinine 1.0, Estimat Glomerular Filtration Rate > 60 , Glucose Level 106, Calcium Level 7.3L, Phosphorus Level 2.4L, Magnesium Level 2.3, Total Bilirubin 0.4, Aspartate Amino Transf (AST/SGOT) 17, Alanine Aminotransferase (ALT/SGPT) 7L, Alkaline Phosphatase 78, C-Reactive Protein, Quantitative 16.9H, Total Protein 7.1, Albumin 1.7L, Globulin 5.4, Albumin/ Globulin Ratio 0.3L Current Medications Medications (Trade) Dose Ordered Sig/Fab Route PRN Reason Start Time Stop Time Status Last Admin Dose Admin Acetaminophen (Tylenol) 650 mg Q4H PRN ORAL fever (temp>100.5 F) 11/01/18 13:30 11/28/18 17:29 11/02/18 03:47 Cefepime HCl 2 gm/ Dextrose 55 ml @ 110 mls/hr EVERY 8 HOURS IVPB 11/02/18 13:00 11/09/18 12:59 11/04/18 05:45 Chlorhexidine Gluconate (Licha-Hex 2%) 1 applic DAILY@2000 TOPIC 11/01/18 20:00 11/29/18 19:59 11/03/18 20:08 Diphenhydramine HCl (Benadryl) 25 mg Q6H PRN IVP Itching 11/01/18 11:30 11/28/18 17:29 11/02/18 03:47 Docusate Sodium (Colace) 100 mg THREE TIMES A DAY GT 11/01/18 18:00 12/01/18 17:59 Famotidine (Pepcid) 20 mg Q12HR ORAL 11/01/18 21:00 11/29/18 20:59 11/04/18 08:02 Heparin Sodium (Porcine) (Heparin 5000 units/ml) 5,000 units EVERY 12 HOURS SUBQ 11/01/18 21:00 11/28/18 08:59 11/03/18 08:25 Heparin Sodium/ Sodium Chloride (Heparin 1000 units/500ml Premix) 1,000 unit ONCE PRN IV PICC LINE PLACEMENT 11/03/18 07:15 11/04/18 23:59 Lidocaine HCl (Xylocaine 1% 30ml) 30 ml ONCE PRN INJ PICC PLACEMENT 11/03/18 07:15 11/04/18 23:59 Linezolid (Zyvox) 600 mg EVERY 12 HOURS GT 11/01/18 21:00 11/06/18 20:59 11/04/18 08:02 Midodrine (Pro-Amatine) 10 mg THREE TIMES A DAY GT 11/04/18 13:00 11/29/18 12:59 UNV Morphine Sulfate (Morphine Sulfate) 2 mg Q4H PRN IVP Severe Pain (Pain Scale 7-10) 11/01/18 13:30 11/05/18 17:29 Ondansetron HCl (Zofran) 4 mg Q6H PRN IVP Nausea & Vomiting 11/01/18 11:30 11/28/18 17:29 Polyethylene Glycol (Miralax) 17 gm DAILYPRN PRN ORAL Constipation 11/01/18 17:30 11/30/18 17:29 Potassium Phosphate 20 mm/ Sodium Chloride 281.6667 ml @ 46.944 m... ONCE ONCE IV 11/04/18 10:30 11/04/18 16:29 11/04/18 10:44 Rigoberto Bryant MD Nov 04, 2018 11:13
--- NOTE | 2018-11-04 11:18 | Infectious Diseases Prog Note ---
Assessment/Plan Assessment/Plan Assessment: Septic shock- SP -probable pNA -MRSA/ P Mirabilis bacteremia- m/l source UTI from obstructive stone , may need to r/o endocarditis -11/03 CT abd/p: 1. Dilated fluid and gas-filled small bowel loops with transition point in the right lower quadrant where there is swirling of mesenteric vessels and small bowel, concerning for volvulus causing obstruction. Wall thickening of the rectum may be secondary to fecal material versus proctitis. Obstructing stone measuring 1.2 cm in the proximal right ureter. Moderate to severe right hydronephrosis. Additional stones in the right kidney and right renal pelvis, measuring up to approximately 1.8 cm and the right renal pelvis. Small amount of free fluid in the pelvis. No abscess identified. -10/30 CXR: Right perihilar disease possibly atelectasis or pneumonia. No change -repeat u/a wbc tnct, nit +, leuk +3 -u/a wbc 19-15, nit +, leuk +2; ucx >100k P. mirabilis (Previously reporte as onlyS Genta, Ertapenem, Zosyn; now hs been updated to R Nitrofurantoin and otherwise S) -CXR: Low lung volumes with right perihilar atelectatic changes. No definite acute process -10/29 Bcx 4/ P. mirabilis (neri S), MRSA; repeat Bcx Neg; 10/30 BCxx 2/4 P Mirabilis , 1/ E. fecalis (S Vanc, AMP); 11/01 Bcx 4/4 GNR, GPC -sp cx PsA (neri S), MRSA -2d Echo: no vegeatiosn Fever; improving Leukocytosis; improving GILDARDO, improving hx of UTI -07/2018 ucx E. fecalis (neri S), P. mirabilis -03/2019 ucx PsA TCP CVA/TIA Dm2 CKD suprapubic catheter DVT hypertensive heart disease [place] resident Plan: cont Zyvox #4 and Cefepime # 3 ( monitor PLT ) -11/02 SP Meropenem #4 -11/01 Sp Amikacin #4 , IV Vancomycin #3 -10/29 SP Ertapenem #1, IV Vancomycin x1 -f/u cx -Monitor CBC/CMP, temperatures -aspiration precautions - CT abd/p w/ contrast -Will need TASNEEM -Bcxx 2 Subjective Allergies: Coded Allergies: VANCOMYCIN (Verified Allergy, Mild, Redness , 10/29/18) CIPROFLOXACIN (Verified Allergy, Unknown, 08/23/15) Subjective afebrile >48hrs remains bacteremic now on EV Objective Vital Signs Last 24 Hour Vital Signs Date Time Temp Pulse Resp B/P (MAP) Pulse Ox O2 Delivery O2 Flow Rate FiO2 11/04/18 09:14 87 20 98 Room Air 21 11/04/18 08:00 Nasal Cannula 2.0 11/04/18 08:00 97.9 88 22 132/95 (107) 100 11/04/18 04:00 Nasal Cannula 2.0 11/04/18 04:00 98.1 98 18 145/89 (107) 100 11/04/18 03:34 93 11/04/18 00:00 Nasal Cannula 2.0 11/04/18 00:00 97.8 105 18 138/86 (103) 98 11/03/18 23:24 96 11/03/18 20:00 101 20 98 Room Air 21 11/03/18 20:00 98.0 116 18 147/92 (110) 98 11/03/18 20:00 Nasal Cannula 2.0 11/03/18 19:00 111 11/03/18 16:00 97.9 104 18 137/93 (108) 99 11/03/18 16:00 93 11/03/18 16:00 Nasal Cannula 2.0 11/03/18 12:00 92 11/03/18 12:00 Nasal Cannula 2.0 11/03/18 12:00 96.8 95 20 137/96 (110) 99 Height (Feet): 5 Height (Inches): 8.00 Weight (Pounds): 249 Objective General Appearance: WD/WN, no apparent distress Lines, tubes and drains: peripheral, central line, gtube HEENT: normocephalic, atraumatic, anicteric Neck: non-tender, normal alignment Respiratory/Chest: chest wall non-tender, lungs clear Cardiovascular/Chest: normal peripheral pulses, normal rate Abdomen: normal bowel sounds Extremities: normal range of motion Microbiology Date/Time Source Procedure Growth Status 11/01/18 11:30 Blood Blood Culture - Preliminary Gram Negative Oswaldo Gram Positive Cocci Resulted 11/01/18 11:15 Blood Blood Culture - Preliminary Gram Negative Oswaldo Enterococcus Faecalis Resulted Laboratory Tests Test 11/04/18 04:00 White Blood Count 15.8 K/UL (4.8-10.8) H Red Blood Count 3.80 M/UL (4.70-6.10) L Hemoglobin 10.7 G/DL (14.2-18.0) L Hematocrit 33.1 % (42.0-52.0) L Mean Corpuscular Volume 87 FL (80-99) Mean Corpuscular Hemoglobin 28.1 PG (27.0-31.0) Mean Corpuscular Hemoglobin Concent 32.3 G/DL (32.0-36.0) Red Cell Distribution Width 14.3 % (11.6-14.8) Platelet Count 166 K/UL (150-450) Mean Platelet Volume 7.6 FL (6.5-10.1) Neutrophils (%) (Auto) 75.3 % (45.0-75.0) H Lymphocytes (%) (Auto) 15.0 % (20.0-45.0) L Monocytes (%) (Auto) 7.8 % (1.0-10.0) Eosinophils (%) (Auto) 1.2 % (0.0-3.0) Basophils (%) (Auto) 0.7 % (0.0-2.0) Erythrocyte Sedimentation Rate 96 MM/HR (0-20) H Sodium Level 145 MMOL/L (136-145) Potassium Level 3.6 MMOL/L (3.5-5.1) Chloride Level 112 MMOL/L (98-107) H Carbon Dioxide Level 28 MMOL/L (21-32) Anion Gap 5 mmol/L (5-15) Blood Urea Nitrogen 24 mg/dL (7-18) H Creatinine 1.0 MG/DL (0.55-1.30) Estimat Glomerular Filtration Rate > 60 mL/min (>60) Glucose Level 106 MG/DL (74-106) Calcium Level 7.3 MG/DL (8.5-10.1) L Phosphorus Level 2.4 MG/DL (2.5-4.9) L Magnesium Level 2.3 MG/DL (1.8-2.4) Total Bilirubin 0.4 MG/DL (0.2-1.0) Aspartate Amino Transf (AST/SGOT) 17 U/L (15-37) Alanine Aminotransferase (ALT/SGPT) 7 U/L (12-78) L Alkaline Phosphatase 78 U/L (46-116) C-Reactive Protein, Quantitative 16.9 mg/dL (0.00-0.90) H Total Protein 7.1 G/DL (6.4-8.2) Albumin 1.7 G/DL (3.4-5.0) L Globulin 5.4 g/dL Albumin/Globulin Ratio 0.3 (1.0-2.7) L Current Medications Medications (Trade) Dose Ordered Sig/Fab Route PRN Reason Start Time Stop Time Status Last Admin Dose Admin Acetaminophen (Tylenol) 650 mg Q4H PRN ORAL fever (temp>100.5 F) 11/01/18 13:30 11/28/18 17:29 11/02/18 03:47 Cefepime HCl 2 gm/ Dextrose 55 ml @ 110 mls/hr EVERY 8 HOURS IVPB 11/02/18 13:00 11/09/18 12:59 11/04/18 05:45 Chlorhexidine Gluconate (Licha-Hex 2%) 1 applic DAILY@2000 TOPIC 11/01/18 20:00 11/29/18 19:59 11/03/18 20:08 Diphenhydramine HCl (Benadryl) 25 mg Q6H PRN IVP Itching 11/01/18 11:30 11/28/18 17:29 11/02/18 03:47 Docusate Sodium (Colace) 100 mg THREE TIMES A DAY GT 11/01/18 18:00 12/01/18 17:59 Famotidine (Pepcid) 20 mg Q12HR ORAL 11/01/18 21:00 11/29/18 20:59 11/04/18 08:02 Heparin Sodium (Porcine) (Heparin 5000 units/ml) 5,000 units EVERY 12 HOURS SUBQ 11/01/18 21:00 11/28/18 08:59 11/03/18 08:25 Heparin Sodium/ Sodium Chloride (Heparin 1000 units/500ml Premix) 1,000 unit ONCE PRN IV PICC LINE PLACEMENT 11/03/18 07:15 11/04/18 23:59 Lidocaine HCl (Xylocaine 1% 30ml) 30 ml ONCE PRN INJ PICC PLACEMENT 11/03/18 07:15 11/04/18 23:59 Linezolid (Zyvox) 600 mg EVERY 12 HOURS GT 11/01/18 21:00 11/06/18 20:59 11/04/18 08:02 Midodrine (Pro-Amatine) 10 mg THREE TIMES A DAY GT 11/04/18 13:00 11/29/18 12:59 UNV Morphine Sulfate (Morphine Sulfate) 2 mg Q4H PRN IVP Severe Pain (Pain Scale 7-10) 11/01/18 13:30 11/05/18 17:29 Ondansetron HCl (Zofran) 4 mg Q6H PRN IVP Nausea & Vomiting 11/01/18 11:30 11/28/18 17:29 Polyethylene Glycol (Miralax) 17 gm DAILYPRN PRN ORAL Constipation 11/01/18 17:30 11/30/18 17:29 Potassium Phosphate 20 mm/ Sodium Chloride 281.6667 ml @ 46.944 m... ONCE ONCE IV 11/04/18 10:30 11/04/18 16:29 11/04/18 10:44 Dorothea Macario M.D. Nov 04, 2018 11:18
--- NOTE | 2018-11-04 11:30 | NUR ---
[employer] SI: SEPTIC SHOCK,UTI T. 97.9 HR 81 RR 22 B/P 132/95 2L NC O2 SAT @ 98% WBC 15.8 ESR 96 BUN 24 IS: CEFEPIME IV K-PHOS IV ZYVOX MIDODRINE HEPARIN SUBC STEP DOWN STATUS
[2018-11-04 12:00] VITALS: BP 135/89
[2018-11-04] MEDS: Midodrine 10mg tab GT SCH ×2 (12:01→17:11)
--- NOTE | 2018-11-04 12:21 | Consultation ---
History of Present Illness General Date patient seen: Nov 04, 2018 Reason for Hospitalization: Altered Mental Status Present Illness HPI This is a very pleasant 58-year-old male who is a group home resident with multiple medical comorbidities, G-tube, suprapubic catheter who presented to [facility] emergency department approximately a week ago with fevers. Patient was identified to have sepsis with leukocytosis, tachycardia, bacteremia. On recent CT scan was identified to have a potential volvulus as noted below and findings. Surgery called to evaluate. Patient seen, patient evaluate, chart reviewed. Patient is awake and responsive. He is pleasant during examination and states he is currently not having any pain otherwise comfortable. He is otherwise a poor historian Allergies: Coded Allergies: VANCOMYCIN (Verified Allergy, Mild, Redness , 10/29/18) CIPROFLOXACIN (Verified Allergy, Unknown, 08/23/15) Medication History Scheduled Amino Acids/Protein Hydrolys (Pro-Stat Liquid), 30 ML GT DAILY, (Reported) Bisacodyl (Dulcolax), 10 MG RC PRN, (Reported) Carvedilol (Coreg), 6.25 MG GT EVERY 12 HOURS Cranberry Fruit Concentrate (Cranberry), 900 MG GT BID, (Reported) Famotidine (Famotidine), 20 MG GT BID Multivitamin With Minerals (Multivitamins With Minerals*), 5 ML GT DAILY, ( Reported) Sennosides (Senna), 17.2 MG GT QHS, (Reported) Scheduled PRN Acetaminophen (Tylenol), 650 MG GT Q4H PRN for Mild Pain (Pain Scale 1-3), ( Reported) Acetaminophen* (Tylenol Extra Strength*), 2 TAB GT Q4H PRN for Moderate Pain ( Pain Scale 4-6), (Reported) Magnesium Hydroxide* (Milk Of Magnesia*), 30 ML GT QHS PRN for Constipation, ( Reported) Na Phos,M-B/Na Phos,Di-Ba (Fleet Enema), 133 ML RC QOD PRN for Constipation, ( Reported) Discontinued Medications Docusate Sodium* (Colace*), 100 MG GT DAILY, (Reported) Discontinued Reason: Therapy completed Rivaroxaban (Xarelto), 15 MG GT BID, (Reported) Discontinued Reason: Therapy completed Senna [place] Extract (Senna), 17.6 MG GT HS, (Reported) Discontinued Reason: Prescription changed Trimethoprim/Sulfamethoxazole (Bactrim Ds Tablet), 1 TAB ORAL TWICE A DAY Discontinued Reason: Therapy completed Patient History Limited by: medical condition, other History Provided By: Patient, Medical Record, PMD Healthcare decision maker Resuscitation status Full Code Advanced Directive on File Past Medical/Surgical History Past Medical/Surgical History: (1) Anemia (2) Fecal impaction (3) Proctitis (4) Volvulus (5) Gastrostomy tube dependent (6) Obstructive hydrocephalus (7) COPD (chronic obstructive pulmonary disease) (8) Gram negative septicemia (9) Diabetes mellitus (10) Aphasia (11) Feeding by G-tube (12) Cellulitis of scrotum (13) Sepsis (14) History of CVA (cerebrovascular accident) (15) Suprapubic catheter dysfunction (16) Encephalopathy chronic (17) GILDARDO (acute kidney injury) (18) UTI (urinary tract infection) (19) Septic shock (20) History of DVT (deep vein thrombosis) (21) Suprapubic catheter (22) ATN (acute tubular necrosis) Review of Systems Review of Symptoms General ROS: no weight loss or fever Psychological ROS: no depression or mood changes, no memory loss Ophthalmic ROS: no visual changes or eye irritation ENT ROS: no nasal congestion, hearing loss, dizziness Allergy and Immunology ROS: no allergic symptoms or urticaria Hematological and Lymphatic ROS: no swollen glands, unusual bleeding or bruising Endocrine ROS: no polyuria, polydipsia, weight changes, temperature intolerance Respiratory ROS: no cough, shortness of breath, or wheezing Cardiovascular ROS: no chest pain or dyspnea on exertion Gastrointestinal ROS: denies abdominal pain, no bright red blood in stool. Musculoskeletal ROS: no myalgias or arthralgias Neurological ROS: no TIA or stroke symptoms Dermatological ROS: no new or changing skin lesions, rashes or pruritis Physical Exam Physical Exam General appearance: alert, cooperative, no distress, appears stated age Head: Normocephalic, without obvious abnormality, atraumatic Eyes: conjunctivae/corneas clear. PERRL, EOM's intact. Fundi benign Throat: Lips, mucosa, and tongue normal. Teeth and gums normal Neck: supple, symmetrical, trachea midline, no adenopathy, thyroid: not enlarged, symmetric, no tenderness/mass/nodules, no carotid bruit and no JVD Lungs: clear to auscultation bilaterally Heart: regular rate and rhythm, S1, S2 normal, no murmur, click, rub or gallop Abdomen: soft, non-tender. Bowel sounds normal. No masses, no organomegaly Extremities: extremities normal, atraumatic, no cyanosis or edema Pulses: 2+ and symmetric Skin: Skin color, texture, turgor normal. No rashes or lesions Neurologic: Grossly normal Last 24 Hour Vital Signs Date Time Temp Pulse Resp B/P (MAP) Pulse Ox O2 Delivery O2 Flow Rate FiO2 11/04/18 12:00 98.1 87 20 135/89 (104) 99 11/04/18 09:14 87 20 98 Room Air 21 11/04/18 08:00 Nasal Cannula 2.0 11/04/18 08:00 97.9 88 22 132/95 (107) 100 11/04/18 08:00 84 11/04/18 04:00 Nasal Cannula 2.0 11/04/18 04:00 98.1 98 18 145/89 (107) 100 11/04/18 03:34 93 11/04/18 00:00 Nasal Cannula 2.0 11/04/18 00:00 97.8 105 18 138/86 (103) 98 11/03/18 23:24 96 11/03/18 20:00 101 20 98 Room Air 21 11/03/18 20:00 98.0 116 18 147/92 (110) 98 11/03/18 20:00 Nasal Cannula 2.0 11/03/18 19:00 111 11/03/18 16:00 97.9 104 18 137/93 (108) 99 11/03/18 16:00 93 11/03/18 16:00 Nasal Cannula 2.0 Intake and Output 11/03/18 11/04/18 19:00 07:00 Intake Total 895 ml 1070 ml Output Total 450 ml 500 ml Balance 445 ml 570 ml Intake Free Water 180 ml 300 ml IV Total 110 ml 110 ml Tube Feeding 605 ml 660 ml Output Urine Total 450 ml 500 ml # Bowel Movements 4 1 Laboratory Tests Test 11/04/18 04:00 White Blood Count 15.8 K/UL (4.8-10.8) H Red Blood Count 3.80 M/UL (4.70-6.10) L Hemoglobin 10.7 G/DL (14.2-18.0) L Hematocrit 33.1 % (42.0-52.0) L Mean Corpuscular Volume 87 FL (80-99) Mean Corpuscular Hemoglobin 28.1 PG (27.0-31.0) Mean Corpuscular Hemoglobin Concent 32.3 G/DL (32.0-36.0) Red Cell Distribution Width 14.3 % (11.6-14.8) Platelet Count 166 K/UL (150-450) Mean Platelet Volume 7.6 FL (6.5-10.1) Neutrophils (%) (Auto) 75.3 % (45.0-75.0) H Lymphocytes (%) (Auto) 15.0 % (20.0-45.0) L Monocytes (%) (Auto) 7.8 % (1.0-10.0) Eosinophils (%) (Auto) 1.2 % (0.0-3.0) Basophils (%) (Auto) 0.7 % (0.0-2.0) Erythrocyte Sedimentation Rate 96 MM/HR (0-20) H Sodium Level 145 MMOL/L (136-145) Potassium Level 3.6 MMOL/L (3.5-5.1) Chloride Level 112 MMOL/L (98-107) H Carbon Dioxide Level 28 MMOL/L (21-32) Anion Gap 5 mmol/L (5-15) Blood Urea Nitrogen 24 mg/dL (7-18) H Creatinine 1.0 MG/DL (0.55-1.30) Estimat Glomerular Filtration Rate > 60 mL/min (>60) Glucose Level 106 MG/DL (74-106) Calcium Level 7.3 MG/DL (8.5-10.1) L Phosphorus Level 2.4 MG/DL (2.5-4.9) L Magnesium Level 2.3 MG/DL (1.8-2.4) Total Bilirubin 0.4 MG/DL (0.2-1.0) Aspartate Amino Transf (AST/SGOT) 17 U/L (15-37) Alanine Aminotransferase (ALT/SGPT) 7 U/L (12-78) L Alkaline Phosphatase 78 U/L (46-116) C-Reactive Protein, Quantitative 16.9 mg/dL (0.00-0.90) H Total Protein 7.1 G/DL (6.4-8.2) Albumin 1.7 G/DL (3.4-5.0) L Globulin 5.4 g/dL Albumin/Globulin Ratio 0.3 (1.0-2.7) L Height (Feet): 5 Height (Inches): 8.00 Weight (Pounds): 249 Medications Current Medications Medications (Trade) Dose Ordered Sig/Fab Route PRN Reason Start Time Stop Time Status Last Admin Dose Admin Acetaminophen (Tylenol) 650 mg Q4H PRN ORAL fever (temp>100.5 F) 11/01/18 13:30 11/28/18 17:29 11/02/18 03:47 Cefepime HCl 2 gm/ Dextrose 55 ml @ 110 mls/hr EVERY 8 HOURS IVPB 11/02/18 13:00 11/09/18 12:59 11/04/18 05:45 Chlorhexidine Gluconate (Licha-Hex 2%) 1 applic DAILY@2000 TOPIC 11/01/18 20:00 11/29/18 19:59 11/03/18 20:08 Diphenhydramine HCl (Benadryl) 25 mg Q6H PRN IVP Itching 11/01/18 11:30 11/28/18 17:29 11/02/18 03:47 Docusate Sodium (Colace) 100 mg THREE TIMES A DAY GT 11/01/18 18:00 12/01/18 17:59 Famotidine (Pepcid) 20 mg Q12HR ORAL 11/01/18 21:00 11/29/18 20:59 11/04/18 08:02 Heparin Sodium (Porcine) (Heparin 5000 units/ml) 5,000 units EVERY 12 HOURS SUBQ 11/01/18 21:00 11/28/18 08:59 11/03/18 08:25 Heparin Sodium/ Sodium Chloride (Heparin 1000 units/500ml Premix) 1,000 unit ONCE PRN IV PICC LINE PLACEMENT 11/03/18 07:15 11/04/18 23:59 Lidocaine HCl (Xylocaine 1% 30ml) 30 ml ONCE PRN INJ PICC PLACEMENT 11/03/18 07:15 11/04/18 23:59 Linezolid (Zyvox) 600 mg EVERY 12 HOURS GT 11/01/18 21:00 11/06/18 20:59 11/04/18 08:02 Midodrine (Pro-Amatine) 10 mg THREE TIMES A DAY GT 11/04/18 13:00 11/29/18 12:59 Morphine Sulfate (Morphine Sulfate) 2 mg Q4H PRN IVP Severe Pain (Pain Scale 7-10) 11/01/18 13:30 11/05/18 17:29 Ondansetron HCl (Zofran) 4 mg Q6H PRN IVP Nausea & Vomiting 11/01/18 11:30 11/28/18 17:29 Polyethylene Glycol (Miralax) 17 gm DAILYPRN PRN ORAL Constipation 11/01/18 17:30 11/30/18 17:29 Potassium Phosphate 20 mm/ Sodium Chloride 281.6667 ml @ 46.944 m... ONCE ONCE IV 11/04/18 10:30 11/04/18 16:29 11/04/18 10:44 Assessment/Plan Problem List: (1) Volvulus Assessment & Plan: This is a 58-year-old male currently admitted for work-up of sepsis who was identified to have a leukocytosis, tachycardia, bacteremia. Patient is currently on IV antibiotics and slowly improving. On recent CT scan he was identified to have a potential volvulus. On examination clinically patient does not seem to have volvulus or bowel obstruction. His abdomen is soft nondistended nontender and with positive bowel sounds. He is tolerating tube feeds through his G-tube and having bowel movements and passing flatus. Swirling of the mesentery noted on CT scan concerning and will follow with serial exams and recommendations. For now okay to continue with tube feeds. Thank you for this consultation ICD Codes: K56.2 - Volvulus SNOMED: 5765120 (2) Fecal impaction Assessment & Plan: IMPRESSION: 1. Dilated fluid and gas-filled small bowel loops with transition point in the right lower quadrant where there is swirling of mesenteric vessels and small bowel, concerning for volvulus causing obstruction. 2. Wall thickening of the rectum may be secondary to fecal material versus proctitis. 3. Obstructing stone measuring 1.2 cm in the proximal right ureter. Moderate to severe right hydronephrosis. Additional stones in the right kidney and right renal pelvis, measuring up to approximately 1.8 cm and the right renal pelvis. 4. Small amount of free fluid in the pelvis. No abscess identified. ICD Codes: K56.41 - Fecal impaction SNOMED: 09825201 (3) Sepsis Assessment & Plan: There is an obstructing stone within the ureter which is causing moderate severe hydronephrosis. The urinalysis demonstrated bacteria similar to that of his bacteremia. Potential etiology of sepsis and above is these obstructing stone. Recommend urological evaluation. Thank you ICD Codes: A41.9 - Sepsis, unspecified organism SNOMED: 54681351 (4) Anemia ICD Codes: D64.9 - Anemia, unspecified SNOMED: 805436664 (5) Proctitis ICD Codes: K62.89 - Other specified diseases of anus and rectum SNOMED: 6479223 (6) Gastrostomy tube dependent ICD Codes: Z93.1 - Gastrostomy status SNOMED: 528992558, 058095375 (7) Obstructive hydrocephalus ICD Codes: G91.1 - Obstructive hydrocephalus SNOMED: 375859414 (8) COPD (chronic obstructive pulmonary disease) ICD Codes: J44.9 - Chronic obstructive pulmonary disease, unspecified SNOMED: 99050702 (9) Diabetes mellitus ICD Codes: E11.9 - Type 2 diabetes mellitus without complications SNOMED: 98882454 (10) Gram negative septicemia ICD Codes: A41.50 - Gram-negative sepsis, unspecified SNOMED: 469424046, 246134803291 (11) Aphasia ICD Codes: R47.01 - Aphasia SNOMED: 16983575 (12) Feeding by G-tube ICD Codes: Z93.1 - Gastrostomy status SNOMED: 555396990, 036211506 (13) Cellulitis of scrotum ICD Codes: N49.2 - Inflammatory disorders of scrotum SNOMED: 57600999 (14) History of CVA (cerebrovascular accident) ICD Codes: Z86.73 - Personal history of transient ischemic attack (TIA), and cerebral infarction without residual deficits SNOMED: 597466289 (15) Suprapubic catheter dysfunction ICD Codes: T83.010A - Breakdown (mechanical) of cystostomy catheter, initial encounter SNOMED: 244499219 (16) Encephalopathy chronic ICD Codes: G93.49 - Other encephalopathy SNOMED: 93089138 (17) GILDARDO (acute kidney injury) ICD Codes: N17.9 - Acute kidney failure, unspecified; R65.21 - Severe sepsis with septic shock SNOMED: 34809950, 5715345 (18) UTI (urinary tract infection) ICD Codes: N39.0 - Urinary tract infection, site not specified SNOMED: 40848190 Qualifiers: Qualified Codes: N30.00 - Acute cystitis without hematuria (19) Septic shock ICD Codes: A41.9 - Sepsis, unspecified organism; R65.21 - Severe sepsis with septic shock SNOMED: 19327806 (20) History of DVT (deep vein thrombosis) ICD Codes: Z86.718 - Personal history of other venous thrombosis and embolism SNOMED: 115618632 (21) Suprapubic catheter ICD Codes: Z93.59 - Other cystostomy status SNOMED: 909061278, 566867308 (22) ATN (acute tubular necrosis) ICD Codes: N17.0 - Acute kidney failure with tubular necrosis SNOMED: 75869788 Russell Lopez Nov 04, 2018 12:21
--- NOTE | 2018-11-04 14:54 | NUR ---
RD ASSESSMENT & RECOMMENDATIONS SEE CARE ACTIVITY FOR COMPLETE ASSESSMENT DAILY ESTIMATED NEEDS: Needs based on Sepsis/ 77kg abw 25-30 kcals/kg 4769-2670 total kcals 1-2 g protein/kg 77-154 g total protein 25-30 mL/kg 5576-5939 total fluid mLs NUTRITION DIAGNOSIS: 1) Swallowing difficulty related to dysphagia s/p cva as evidenced by pt dependent on PEG for all nutrition and hydration needs. CURRENT TF: Glucerna 1.5 @ 55ml/hr x 24 hrs ENTERAL NUTRITION RECOMMENDATIONS: Glucerna 1.5 @ 55ml/hr x 24 hrs to provide 1320ml, 1980kcal, 109g prot, 1002ml free water * Maintain current TF * HOB over 30 degrees/ water flush per MD. ADDITIONAL RECOMMENDATIONS: 1) Calibrated bedscale wt for accurate CBW 2) Monitor lytes, replete as needed (low phos) 3) Consider NISS/ accuchecks w/ TF for BG control- h/o DM 4) Rec wound eval ( wound photos noted) .
--- NOTE | 2018-11-04 15:11 | NUR ---
RADIOLOGY DEPT., SMALL BOWEL FOLLOW THROUGH STILL IN PROGRESS. ADDITIONAL IMAGING WILL BE DONE PORTABLY.-P.DYE
--- NOTE | 2018-11-04 15:52 | Cardiac Electrophysiology PN ---
Assessment/Plan Assessment/Plan 1. S/P Septic Shock and dehydration Lactic acidosis 2.4. Off Levophed and on IV antibiotics Echo Nl EF. WBC down from 21K yesterday to 15k today MRSA/ P Mirabilis bacteremia may need to r/o endocarditis 2. Sinus tach 140s likely due to sepsis with fever. HR better 3. Inferior wall myocardial infarction based on electrocardiogram. Ruled out for myocardial infarction. EF 65% 4. Hypernatremia. 5. Renal failure. 6. CVA with paraplegia. 7. Status post suprapubic catheter. COLLETTE RN Subjective Subjective In SDU. No events. RN at bedside.r Objective Last 24 Hour Vital Signs Date Time Temp Pulse Resp B/P (MAP) Pulse Ox O2 Delivery O2 Flow Rate FiO2 11/04/18 12:00 98.1 87 20 135/89 (104) 99 11/04/18 12:00 Nasal Cannula 2.0 11/04/18 09:14 87 20 98 Room Air 21 11/04/18 08:00 Nasal Cannula 2.0 11/04/18 08:00 97.9 88 22 132/95 (107) 100 11/04/18 08:00 84 11/04/18 04:00 Nasal Cannula 2.0 11/04/18 04:00 98.1 98 18 145/89 (107) 100 11/04/18 03:34 93 11/04/18 00:00 Nasal Cannula 2.0 11/04/18 00:00 97.8 105 18 138/86 (103) 98 11/03/18 23:24 96 11/03/18 20:00 101 20 98 Room Air 21 11/03/18 20:00 98.0 116 18 147/92 (110) 98 11/03/18 20:00 Nasal Cannula 2.0 11/03/18 19:00 111 11/03/18 16:00 97.9 104 18 137/93 (108) 99 11/03/18 16:00 93 11/03/18 16:00 Nasal Cannula 2.0 Intake and Output 11/03/18 11/04/18 18:59 06:59 Intake Total 790 ml 1175 ml Output Total 450 ml 500 ml Balance 340 ml 675 ml Intake Free Water 130 ml 350 ml IV Total 110 ml 110 ml Tube Feeding 550 ml 715 ml Output Urine Total 450 ml 500 ml # Bowel Movements 4 1 Laboratory Tests Test 11/04/18 04:00 White Blood Count 15.8 K/UL (4.8-10.8) H Red Blood Count 3.80 M/UL (4.70-6.10) L Hemoglobin 10.7 G/DL (14.2-18.0) L Hematocrit 33.1 % (42.0-52.0) L Mean Corpuscular Volume 87 FL (80-99) Mean Corpuscular Hemoglobin 28.1 PG (27.0-31.0) Mean Corpuscular Hemoglobin Concent 32.3 G/DL (32.0-36.0) Red Cell Distribution Width 14.3 % (11.6-14.8) Platelet Count 166 K/UL (150-450) Mean Platelet Volume 7.6 FL (6.5-10.1) Neutrophils (%) (Auto) 75.3 % (45.0-75.0) H Lymphocytes (%) (Auto) 15.0 % (20.0-45.0) L Monocytes (%) (Auto) 7.8 % (1.0-10.0) Eosinophils (%) (Auto) 1.2 % (0.0-3.0) Basophils (%) (Auto) 0.7 % (0.0-2.0) Erythrocyte Sedimentation Rate 96 MM/HR (0-20) H Sodium Level 145 MMOL/L (136-145) Potassium Level 3.6 MMOL/L (3.5-5.1) Chloride Level 112 MMOL/L (98-107) H Carbon Dioxide Level 28 MMOL/L (21-32) Anion Gap 5 mmol/L (5-15) Blood Urea Nitrogen 24 mg/dL (7-18) H Creatinine 1.0 MG/DL (0.55-1.30) Estimat Glomerular Filtration Rate > 60 mL/min (>60) Glucose Level 106 MG/DL (74-106) Calcium Level 7.3 MG/DL (8.5-10.1) L Phosphorus Level 2.4 MG/DL (2.5-4.9) L Magnesium Level 2.3 MG/DL (1.8-2.4) Total Bilirubin 0.4 MG/DL (0.2-1.0) Aspartate Amino Transf (AST/SGOT) 17 U/L (15-37) Alanine Aminotransferase (ALT/SGPT) 7 U/L (12-78) L Alkaline Phosphatase 78 U/L (46-116) C-Reactive Protein, Quantitative 16.9 mg/dL (0.00-0.90) H Total Protein 7.1 G/DL (6.4-8.2) Albumin 1.7 G/DL (3.4-5.0) L Globulin 5.4 g/dL Albumin/Globulin Ratio 0.3 (1.0-2.7) L Objective HEAD AND NECK: No JVD. LUNGS: Coarse rhonchi. CARDIOVASCULAR: Tachy S1, S2 with no gallop. ABDOMEN: Soft, status post suprapubic catheter. EXTREMITIES: Paraplegic with edema Darnell Segundo MD Nov 04, 2018 15:52
[2018-11-04 16:00] VITALS: BP 126/92
--- NOTE | 2018-11-04 17:41 | Diagnostic Imaging Report ---
Indication: Abdominal pain Technique: Water-soluble contrast administered through gastrostomy tube. Serial images obtained over the abdomen. Comparison: Reference made to abdomen and pelvis CT scan dated dated 11/03/2018 Findings: Electric Bath Attendant image demonstrates contrast from prior CT scan within the colon. Single dilated small bowel loop is seen in the right mid abdomen. Some surgical clips are noted in the right abdomen and in the mid pelvis. There is a gastrostomy in place. Contrast fills proximal small bowel loops fairly rapidly, is equivocally seen in distal small bowel at one hour, and is seen throughout the colon on the 3 hour film. Impression: No significant small bowel obstruction demonstrated; contrast transited the entire GI tract in 3 hours
--- NOTE | 2018-11-04 18:51 | NUR ---
NURSE NOTES: dr vogel came to see the patient. able to replace a new suprapubic cath F20.patent and draining. ordered to place a dressing. will continue to monitor.
--- NOTE | 2018-11-04 19:04 | NUR ---
NURSE NOTES: report given to kolton levin
--- NOTE | 2018-11-04 19:05 | NUR ---
NURSE NOTES: Received patient from Elidia CHRISTOPHER. Patient is awake and oriented x1. Receiving oxygen via room air, patient tolerating well, showing no signs of respiratory distress. G-tube is patent and receiving Glucerna 1.5 @55cc/hr. Patient has a suprapubic catheter FR 20 inserted today. IV site is Right Foot 22g and Right hand 24g both patent and asymptomatic. Bed is locked, placed in lowest position, side rails up x3, bed alarm on. Will continue to monitor.
[2018-11-04] MEDS: Dyna-Hex 2% Top Sol 2oz TOPIC SCH (19:58)
[2018-11-04 20:00] VITALS: BP 127/90
--- NOTE | 2018-11-04 23:30 | Consultation ---
DATE OF CONSULTATION: 11/04/2018 REASON FOR CONSULTATION: Leaking suprapubic tube, obstructing nephropathy. HISTORY: The patient is a 58-year-old male with a history of stroke, suprapubic catheter, DVT, hypertensive heart disease, and many other medical problems. He was admitted with sepsis, stabilized, and placed on antibiotics. In the process of evaluation, he had a CT urogram that showed a stone 1.2 cm in the right ureter with hydronephrosis and some additional large stones in the kidney. He has a suprapubic 18-[place] catheter that is currently leaking. The patient is a poor historian and I was not able to assess. MEDICATIONS: Have been reviewed. PHYSICAL EXAMINATION: VITAL SIGNS: Afebrile. Vital signs are stable. ABDOMINAL: Essentially negative except for mild leakage around the suprapubic tube. The old catheter was removed and the new suprapubic tube 18-Bulgarian was inserted and left indwelling with a 10 mL water in the balloon. CT scan was reviewed and indeed he had an obstructing stone, whether it is new or old is hard to say. He is not complaining of any pain and his creatinine is stable around 1. Considering his medical condition, I would be inclined to watch him conservatively. I will discuss this matter with Dr. Bryant and if decision will be made to operate, he would need retrograde intrarenal surgery with possible extracorporeal shock wave lithotripsy. Will Funk M.D. DR: CAROL JOB#: [id number] CC:
[2018-11-05] VITALS: BP 106/76
[2018-11-05 04:00] VITALS: BP 123/86
[2018-11-05 04:35] LABS: BASOPHILS % (AUTO) 1.4 % (0.0-2.0); HEMATOCRIT 31.5 % (42.0-52.0); HEMOGLOBIN 10.3 G/DL (14.2-18.0); LYMPHOCYTES % (AUTO) 15.1 % (20.0-45.0); MEAN CORPUSCULAR VOLUME 88 FL (80-99); MONOCYTES % (AUTO) 5.1 % (1.0-10.0); NEUTROPHILS % (AUTO) 77.4 % (45.0-75.0); PLATELET COUNT 190 K/UL (150-450); RED CELL DISTRIBUTION WIDTH 14.6 % (11.6-14.8); WHITE BLOOD COUNT 13.8 K/UL (4.8-10.8)
[2018-11-05 04:50] LABS: ANION GAP 5 mmol/L (5-15); BLOOD UREA NITROGEN 21 mg/dL (7-18); CALCIUM 7.6 MG/DL (8.5-10.1); CARBON DIOXIDE 28 MMOL/L (21-32); CHLORIDE 114 MMOL/L (98-107); CREATININE 1.1 MG/DL (0.55-1.30); PHOSPHORUS 3.2 MG/DL (2.5-4.9); POTASSIUM 3.9 MMOL/L (3.5-5.1); SODIUM 147 MMOL/L (136-145)
[2018-11-05] MEDS: Cefepime HCl 2 GM in D5W 55 ML IVPB SCH ×3 (05:55→22:18)
--- NOTE | 2018-11-05 07:29 | NUR ---
HAND-OFF: Report given to Clover Rodriguez RN. Patient in stable condition.
[2018-11-05 08:00] VITALS: BP 135/95
--- NOTE | 2018-11-05 08:19 | NUR ---
NURSE NOTES: received pt in the bed, awake, confused, vital signs stable, no co pain, no SOB, skin warm and dry to touch, multiple decub, dressing dry and intact, suprapubic catheter, tolerate GT feeding well, bed in low position, HOB elevated.
[2018-11-05] MEDS: Heparin 5000 units/ml inj SUBQ SCH ×2 (08:31→20:40)
[2018-11-05] MEDS: Docusate 100mg/10ml Liq GT SCH ×3 (08:32→18:00)
[2018-11-05] MEDS: Midodrine 10mg tab GT SCH ×3 (08:33→18:00)
--- NOTE | 2018-11-05 09:55 | Hematology/Onc Progress Note ---
Assessment/Plan Assessment/Plan # Anemia due to underlying chronic disease, multifactorial --> anemia panel ordered, likely ferritin will be high --> hgb trend as 9-->6.7-->10-->11-->10 --> monitor for hematuria --> cysto as needed per urology # Leukocytosis likely due to uti, mdr v gi process --> now has been started on linezolid/cefepime --> id and cards recs reviewed --> ct with potential volvulus v proctitis, have consulted gi --> wbc trend 22-->16-->14 #Septic Shock s/p and dehydration, lactic acidosis 2.4. Off levophed and on IV antibiotics --> per id MRSA/ P. Mirabilis bacteremia may need to r/o endocarditis --> on abx as per id recs # Sinus tachycardia 140s likely due to sepsis with fever, HR better --> monitor closely for improvement with cards # Hypernatremia --> trend na with renal # Renal failure # CVA with paraplegia Appreciate consultation greatly. Subjective Constitutional: Denies: no symptoms, chills, fever, malaise, weakness, other HEENT: Denies: no symptoms, eye pain, blurred vision, tearing, double vision, ear pain, ear discharge, nose pain, nose congestion, throat pain, throat swelling, mouth pain, mouth swelling, other Cardiovascular: Denies: no symptoms, chest pain, edema, irregular heart rate, lightheadedness, palpitations, syncope, other Respiratory: Denies: no symptoms, cough, shortness of breath, SOB with excertion, SOB at rest, sputum, wheezing, other Gastrointestinal/Abdominal: Denies: no symptoms, abdomen distended, abdominal pain, black stools, tarry stools, blood in stool, constipated, diarrhea, difficulty swallowing, nausea, poor appetite, poor fluid intake, rectal bleeding , vomiting, other 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: Denies: no symptoms, anxiety, depressed, emotional problems, headache, numbness, paresthesia, pre-existing deficit, seizure, tingling, tremors, weakness, other Endocrine: Denies: no symptoms, excessive sweating, flushing, intolerance to cold, intolerance to heat, increased hunger, increased thirst, increased urine, unexplained weight gain, unexplained weight loss, other Hematologic/Lymphatic: Denies: no symptoms, anemia, easy bleeding, easy bruising, adenopathy, other Allergies: Coded Allergies: VANCOMYCIN (Verified Allergy, Mild, Redness , 10/29/18) CIPROFLOXACIN (Verified Allergy, Unknown, 08/23/15) Subjective 10/31: dc to med surg from icu, doing better 11/01: given 500cc ns for low bp, pcp was made aware as well as cards 11/02: on zyvox and cefepime, no fc, no bleeding, on feedings 11/03: on abx still, seen by id, and cards, r/o bacteremia induced by valve abnml 11/04: iv is on the right foot, pending potentially picc 11/05: labs have been reviewed, no f/c, no night sweats, seen by uro last night Objective Objective Current Medications Medications (Trade) Dose Ordered Sig/Fab Route PRN Reason Start Time Stop Time Status Last Admin Dose Admin Acetaminophen (Tylenol) 650 mg Q4H PRN ORAL fever (temp>100.5 F) 11/01/18 13:30 11/28/18 17:29 11/04/18 19:57 Cefepime HCl 2 gm/ Dextrose 55 ml @ 110 mls/hr EVERY 8 HOURS IVPB 11/02/18 13:00 11/09/18 12:59 11/05/18 05:55 Chlorhexidine Gluconate (Licha-Hex 2%) 1 applic DAILY@2000 TOPIC 11/01/18 20:00 11/29/18 19:59 11/04/18 19:58 Diphenhydramine HCl (Benadryl) 25 mg Q6H PRN IVP Itching 11/01/18 11:30 11/28/18 17:29 11/02/18 03:47 Docusate Sodium (Colace) 100 mg THREE TIMES A DAY GT 11/01/18 18:00 12/01/18 17:59 Famotidine (Pepcid) 20 mg Q12HR ORAL 11/01/18 21:00 11/29/18 20:59 11/05/18 08:31 Heparin Sodium (Porcine) (Heparin 5000 units/ml) 5,000 units EVERY 12 HOURS SUBQ 11/01/18 21:00 11/28/18 08:59 11/05/18 08:31 Linezolid (Zyvox) 600 mg EVERY 12 HOURS GT 11/01/18 21:00 11/06/18 20:59 11/05/18 08:32 Midodrine (Pro-Amatine) 10 mg THREE TIMES A DAY GT 11/04/18 13:00 11/29/18 12:59 Morphine Sulfate (Morphine Sulfate) 2 mg Q4H PRN IVP Severe Pain (Pain Scale 7-10) 11/01/18 13:30 11/05/18 17:29 Ondansetron HCl (Zofran) 4 mg Q6H PRN IVP Nausea & Vomiting 11/01/18 11:30 11/28/18 17:29 Polyethylene Glycol (Miralax) 17 gm DAILYPRN PRN ORAL Constipation 11/01/18 17:30 11/30/18 17:29 Last 24 Hour Vital Signs Date Time Temp Pulse Resp B/P (MAP) Pulse Ox O2 Delivery O2 Flow Rate FiO2 11/05/18 08:00 Nasal Cannula 2.0 11/05/18 08:00 98.1 98 18 135/95 (108) 97 11/05/18 04:00 98.2 98 20 123/86 (98) 98 11/05/18 04:00 Nasal Cannula 2.0 11/05/18 03:23 94 11/05/18 00:00 98.2 101 20 106/76 (86) 98 11/04/18 23:22 Nasal Cannula 2.0 11/04/18 23:22 102 11/04/18 21:41 100 20 94 Room Air 21 11/04/18 20:27 98.1 11/04/18 20:00 101.0 124 24 127/90 (102) 95 11/04/18 19:42 101 11/04/18 19:00 Nasal Cannula 2.0 11/04/18 18:12 119 11/04/18 16:00 98.8 98 21 126/92 (103) 94 11/04/18 16:00 Nasal Cannula 2.0 11/04/18 12:00 98.1 87 20 135/89 (104) 99 11/04/18 12:00 Nasal Cannula 2.0 11/04/18 11:43 95 11/04/18 09:14 87 20 98 Room Air 21 11/04/18 08:00 Nasal Cannula 2.0 11/04/18 08:00 97.9 88 22 132/95 (107) 100 11/04/18 08:00 84 11/04/18 04:00 Nasal Cannula 2.0 11/04/18 04:00 98.1 98 18 145/89 (107) 100 11/04/18 03:34 93 11/04/18 00:00 Nasal Cannula 2.0 11/04/18 00:00 97.8 105 18 138/86 (103) 98 11/03/18 23:24 96 11/03/18 20:00 101 20 98 Room Air 21 11/03/18 20:00 98.0 116 18 147/92 (110) 98 11/03/18 20:00 Nasal Cannula 2.0 11/03/18 19:00 111 11/03/18 16:00 97.9 104 18 137/93 (108) 99 11/03/18 16:00 93 11/03/18 16:00 Nasal Cannula 2.0 11/03/18 12:00 92 11/03/18 12:00 Nasal Cannula 2.0 11/03/18 12:00 96.8 95 20 137/96 (110) 99 Intake and Output 11/04/18 11/05/18 19:00 07:00 Intake Total 1193.608 ml 770 ml Output Total 575 ml 550 ml Balance 618.608 ml 220 ml Intake Free Water 150 ml IV Total 438.608 ml 110 ml Tube Feeding 605 ml 660 ml Output Urine Total 575 ml 550 ml # Bowel Movements 4 Labs Test 11/03/18 04:00 11/03/18 06:40 11/04/18 04:00 11/04/18 20:00 White Blood Count 11.3 K/UL (4.8-10.8) 21.3 K/UL (4.8-10.8) 15.8 K/UL (4.8-10.8) Red Blood Count 2.50 M/UL (4.70-6.10) 3.91 M/UL (4.70-6.10) 3.80 M/UL (4.70-6.10) Hemoglobin 6.7 G/DL (14.2-18.0) 11.6 G/DL (14.2-18.0) 10.7 G/DL (14.2-18.0) Hematocrit 22.3 % (42.0-52.0) 33.8 % (42.0-52.0) 33.1 % (42.0-52.0) Mean Corpuscular Volume 89 FL (80-99) 86 FL (80-99) 87 FL (80-99) Mean Corpuscular Hemoglobin 26.7 PG (27.0-31.0) 29.6 PG (27.0-31.0) 28.1 PG (27.0-31.0) Mean Corpuscular Hemoglobin Concent 30.0 G/DL (32.0-36.0) 34.3 G/DL (32.0-36.0) 32.3 G/DL (32.0-36.0) Red Cell Distribution Width 17.7 % (11.6-14.8) 14.1 % (11.6-14.8) 14.3 % (11.6-14.8) Platelet Count 122 K/UL (150-450) 159 K/UL (150-450) 166 K/UL (150-450) Mean Platelet Volume 11.5 FL (6.5-10.1) 7.7 FL (6.5-10.1) 7.6 FL (6.5-10.1) Neutrophils (%) (Auto) % (45.0-75.0) % (45.0-75.0) 75.3 % (45.0-75.0) Lymphocytes (%) (Auto) % (20.0-45.0) % (20.0-45.0) 15.0 % (20.0-45.0) Monocytes (%) (Auto) % (1.0-10.0) % (1.0-10.0) 7.8 % (1.0-10.0) Eosinophils (%) (Auto) % (0.0-3.0) % (0.0-3.0) 1.2 % (0.0-3.0) Basophils (%) (Auto) % (0.0-2.0) % (0.0-2.0) 0.7 % (0.0-2.0) Differential Total Cells Counted 100 100 Neutrophils % (Manual) 81 % (45-75) 89 % (45-75) Lymphocytes % (Manual) 9 % (20-45) 3 % (20-45) Monocytes % (Manual) 5 % (1-10) 5 % (1-10) Eosinophils % (Manual) 5 % (0-3) 0 % (0-3) Basophils % (Manual) 0 % (0-2) 0 % (0-2) Band Neutrophils 0 % (0-8) 3 % (0-8) Platelet Estimate Decreased Adequate Platelet Morphology Normal Giant Platelets Occasional Polychromasia 1+ 1+ Hypochromasia 1+ 1+ Anisocytosis 1+ 1+ Erythrocyte Sedimentation Rate 127 MM/HR (0-20) 96 MM/HR (0-20) Sodium Level 151 MMOL/L (136-145) 145 MMOL/L (136-145) Potassium Level 4.1 MMOL/L (3.5-5.1) 3.6 MMOL/L (3.5-5.1) Chloride Level 115 MMOL/L (98-107) 112 MMOL/L (98-107) Carbon Dioxide Level 31 MMOL/L (21-32) 28 MMOL/L (21-32) Anion Gap 5 mmol/L (5-15) 5 mmol/L (5-15) Blood Urea Nitrogen 57 mg/dL (7-18) 24 mg/dL (7-18) Creatinine 0.7 MG/DL (0.55-1.30) 1.0 MG/DL (0.55-1.30) Estimat Glomerular Filtration Rate > 60 mL/min (>60) > 60 mL/min (>60) Glucose Level 118 MG/DL (74-106) 106 MG/DL (74-106) Uric Acid 2.5 MG/DL (2.6-7.2) Calcium Level 8.8 MG/DL (8.5-10.1) 7.3 MG/DL (8.5-10.1) Phosphorus Level 3.4 MG/DL (2.5-4.9) 2.4 MG/DL (2.5-4.9) Magnesium Level 2.3 MG/DL (1.8-2.4) 2.3 MG/DL (1.8-2.4) Total Bilirubin 0.2 MG/DL (0.2-1.0) 0.4 MG/DL (0.2-1.0) Aspartate Amino Transf (AST/SGOT) 30 U/L (15-37) 17 U/L (15-37) Alanine Aminotransferase (ALT/SGPT) 44 U/L (12-78) 7 U/L (12-78) Alkaline Phosphatase 81 U/L (46-116) 78 U/L (46-116) C-Reactive Protein, Quantitative 2.5 mg/dL (0.00-0.90) 16.9 mg/dL (0.00-0.90) Pro-B-Type Natriuretic Peptide 4012 pg/mL (0-125) Total Protein 5.8 G/DL (6.4-8.2) 7.1 G/DL (6.4-8.2) Albumin 1.4 G/DL (3.4-5.0) 1.7 G/DL (3.4-5.0) Globulin 4.4 g/dL 5.4 g/dL Albumin/Globulin Ratio 0.3 (1.0-2.7) 0.3 (1.0-2.7) Stool Occult Blood Negative (NEGATIVE) Test 11/05/18 03:20 White Blood Count 13.8 K/UL (4.8-10.8) Red Blood Count 3.60 M/UL (4.70-6.10) Hemoglobin 10.3 G/DL (14.2-18.0) Hematocrit 31.5 % (42.0-52.0) Mean Corpuscular Volume 88 FL (80-99) Mean Corpuscular Hemoglobin 28.7 PG (27.0-31.0) Mean Corpuscular Hemoglobin Concent 32.8 G/DL (32.0-36.0) Red Cell Distribution Width 14.6 % (11.6-14.8) Platelet Count 190 K/UL (150-450) Mean Platelet Volume 7.5 FL (6.5-10.1) Neutrophils (%) (Auto) 77.4 % (45.0-75.0) Lymphocytes (%) (Auto) 15.1 % (20.0-45.0) Monocytes (%) (Auto) 5.1 % (1.0-10.0) Eosinophils (%) (Auto) 1.0 % (0.0-3.0) Basophils (%) (Auto) 1.4 % (0.0-2.0) Sodium Level 147 MMOL/L (136-145) Potassium Level 3.9 MMOL/L (3.5-5.1) Chloride Level 114 MMOL/L (98-107) Carbon Dioxide Level 28 MMOL/L (21-32) Anion Gap 5 mmol/L (5-15) Blood Urea Nitrogen 21 mg/dL (7-18) Creatinine 1.1 MG/DL (0.55-1.30) Estimat Glomerular Filtration Rate > 60 mL/min (>60) Glucose Level 113 MG/DL (74-106) Calcium Level 7.6 MG/DL (8.5-10.1) Phosphorus Level 3.2 MG/DL (2.5-4.9) Magnesium Level 2.3 MG/DL (1.8-2.4) Height (Feet): 5 Height (Inches): 8.00 Weight (Pounds): 242 Objective Physical Exam General Appearance: A+O x1, NAD HEENT: normocephalic, atraumatic Neck: non-tender, normal alignment Respiratory/Chest: chest wall non-tender, lungs clear Cardiovascular/Chest: normal peripheral pulses, normal rate Abdomen: normal bowel sounds, non tender ++ peg ++ suprapubic catheter Extremities: normal range of motion Nathan Ludwig MD Nov 05, 2018 09:55
--- NOTE | 2018-11-05 09:58 | Pulmonology Progress Note ---
Assessment/Plan Problems: (1) Septic shock (2) ATN (acute tubular necrosis) (3) COPD (chronic obstructive pulmonary disease) (4) Encephalopathy chronic (5) Obstructive hydrocephalus (6) History of DVT (deep vein thrombosis) (7) Suprapubic catheter (8) Aphasia (9) Feeding by G-tube (10) History of CVA (cerebrovascular accident) Assessment/Plan no new more stable persistent bacteremia less tachy respiratory treatment titrate fio2 to sat of 92% renal function better. Urology saw the patient, will d/w rest of the team to find the best approach. Subjective ROS Limited/Unobtainable: No Constitutional: Reports: no symptoms HEENT: Repors: no symptoms Respiratory: Reports: no symptoms Allergies: Coded Allergies: VANCOMYCIN (Verified Allergy, Mild, Redness , 10/29/18) CIPROFLOXACIN (Verified Allergy, Unknown, 08/23/15) Objective Last 24 Hour Vital Signs Date Time Temp Pulse Resp B/P (MAP) Pulse Ox O2 Delivery O2 Flow Rate FiO2 11/05/18 08:00 Nasal Cannula 2.0 11/05/18 08:00 100 11/05/18 08:00 98.1 98 18 135/95 (108) 97 11/05/18 04:00 98.2 98 20 123/86 (98) 98 11/05/18 04:00 Nasal Cannula 2.0 11/05/18 03:23 94 11/05/18 00:00 98.2 101 20 106/76 (86) 98 11/04/18 23:22 Nasal Cannula 2.0 11/04/18 23:22 102 11/04/18 21:41 100 20 94 Room Air 21 11/04/18 20:27 98.1 11/04/18 20:00 101.0 124 24 127/90 (102) 95 11/04/18 19:42 101 11/04/18 19:00 Nasal Cannula 2.0 11/04/18 18:12 119 11/04/18 16:00 98.8 98 21 126/92 (103) 94 11/04/18 16:00 Nasal Cannula 2.0 11/04/18 12:00 98.1 87 20 135/89 (104) 99 11/04/18 12:00 Nasal Cannula 2.0 11/04/18 11:43 95 Intake and Output 11/04/18 11/05/18 19:00 07:00 Intake Total 1193.608 ml 770 ml Output Total 575 ml 550 ml Balance 618.608 ml 220 ml Intake Free Water 150 ml IV Total 438.608 ml 110 ml Tube Feeding 605 ml 660 ml Output Urine Total 575 ml 550 ml # Bowel Movements 4 General Appearance: WD/WN HEENT: atraumatic, anicteric Respiratory/Chest: chest wall non-tender, lungs clear Cardiovascular: normal peripheral pulses, regular rhythm Abdomen: soft, non tender, no organomegaly Genitourinary: normal external genitalia Extremities: no clubbing Skin: no ulcers Laboratory Tests 11/04/18 20:00: Stool Occult Blood Negative 11/05/18 03:20: White Blood Count 13.8H, Red Blood Count 3.60L, Hemoglobin 10.3L, Hematocrit 31.5L, Mean Corpuscular Volume 88, Mean Corpuscular Hemoglobin 28.7, Mean Corpuscular Hemoglobin Concent 32.8, Red Cell Distribution Width 14.6, Platelet Count 190, Mean Platelet Volume 7.5, Neutrophils (%) (Auto) 77.4H, Lymphocytes ( %) (Auto) 15.1L, Monocytes (%) (Auto) 5.1, Eosinophils (%) (Auto) 1.0, Basophils (%) (Auto) 1.4, Sodium Level 147H, Potassium Level 3.9, Chloride Level 114H, Carbon Dioxide Level 28, Anion Gap 5, Blood Urea Nitrogen 21H, Creatinine 1.1, Estimat Glomerular Filtration Rate > 60, Glucose Level 113H, Calcium Level 7.6L, Phosphorus Level 3.2, Magnesium Level 2.3 Current Medications Medications (Trade) Dose Ordered Sig/Fab Route PRN Reason Start Time Stop Time Status Last Admin Dose Admin Acetaminophen (Tylenol) 650 mg Q4H PRN ORAL fever (temp>100.5 F) 11/01/18 13:30 11/28/18 17:29 11/04/18 19:57 Cefepime HCl 2 gm/ Dextrose 55 ml @ 110 mls/hr EVERY 8 HOURS IVPB 11/02/18 13:00 11/09/18 12:59 11/05/18 05:55 Chlorhexidine Gluconate (Licha-Hex 2%) 1 applic DAILY@1999 TOPIC 11/01/18 20:00 11/29/18 19:59 11/04/18 19:58 Diphenhydramine HCl (Benadryl) 25 mg Q6H PRN IVP Itching 11/01/18 11:30 11/28/18 17:29 11/02/18 03:47 Docusate Sodium (Colace) 100 mg THREE TIMES A DAY GT 11/01/18 18:00 12/01/18 17:59 Famotidine (Pepcid) 20 mg Q12HR ORAL 11/01/18 21:00 11/29/18 20:59 11/05/18 08:31 Heparin Sodium (Porcine) (Heparin 5000 units/ml) 5,000 units EVERY 12 HOURS SUBQ 11/01/18 21:00 11/28/18 08:59 11/05/18 08:31 Linezolid (Zyvox) 600 mg EVERY 12 HOURS GT 11/01/18 21:00 11/06/18 20:59 11/05/18 08:32 Midodrine (Pro-Amatine) 10 mg THREE TIMES A DAY GT 11/04/18 13:00 11/29/18 12:59 Morphine Sulfate (Morphine Sulfate) 2 mg Q4H PRN IVP Severe Pain (Pain Scale 7-10) 11/01/18 13:30 11/05/18 17:29 Ondansetron HCl (Zofran) 4 mg Q6H PRN IVP Nausea & Vomiting 11/01/18 11:30 11/28/18 17:29 Polyethylene Glycol (Miralax) 17 gm DAILYPRN PRN ORAL Constipation 11/01/18 17:30 11/30/18 17:29 Rigoberto Bryant MD Nov 05, 2018 09:58
--- NOTE | 2018-11-05 10:06 | GI Progress Note ---
Assessment/Plan Problems: (1) Aphasia ICD Codes: R47.01 - Aphasia SNOMED: 09993524 (2) Anemia ICD Codes: D64.9 - Anemia, unspecified SNOMED: 601807339 (3) Fecal impaction ICD Codes: K56.41 - Fecal impaction SNOMED: 56709851 (4) Proctitis ICD Codes: K62.89 - Other specified diseases of anus and rectum SNOMED: 2783062 (5) Volvulus ICD Codes: K56.2 - Volvulus SNOMED: 8020788 Status: unchanged Status Narrative Discussed with Dr. Faust. Assessment/Plan SBFT negative OB stool negative Patient may benefit from colonoscopy to evaluate proctitis, can be done as outpatient. Anemia work-up reviewed Prevacid Monitor H&H, PRN transfusions Bowel regimen Follow-up labs The patient was seen and examined at bedside and all new and available data was reviewed in the patients chart. I agree with the above findings, impression and plan. (Patient seen earlier today. Signature stamp does not reflect patient encounter time.). - Deep Faust MD Subjective Gastrointestinal/Abdominal: Reports: no symptoms Objective Last 24 Hour Vital Signs Date Time Temp Pulse Resp B/P (MAP) Pulse Ox O2 Delivery O2 Flow Rate FiO2 11/05/18 08:00 Nasal Cannula 2.0 11/05/18 08:00 100 11/05/18 08:00 98.1 98 18 135/95 (108) 97 11/05/18 04:00 98.2 98 20 123/86 (98) 98 11/05/18 04:00 Nasal Cannula 2.0 11/05/18 03:23 94 11/05/18 00:00 98.2 101 20 106/76 (86) 98 11/04/18 23:22 Nasal Cannula 2.0 11/04/18 23:22 102 11/04/18 21:41 100 20 94 Room Air 21 11/04/18 20:27 98.1 11/04/18 20:00 101.0 124 24 127/90 (102) 95 11/04/18 19:42 101 11/04/18 19:00 Nasal Cannula 2.0 11/04/18 18:12 119 11/04/18 16:00 98.8 98 21 126/92 (103) 94 11/04/18 16:00 Nasal Cannula 2.0 11/04/18 12:00 98.1 87 20 135/89 (104) 99 11/04/18 12:00 Nasal Cannula 2.0 11/04/18 11:43 95 Intake and Output 11/04/18 11/05/18 19:00 07:00 Intake Total 1193.608 ml 770 ml Output Total 575 ml 550 ml Balance 618.608 ml 220 ml Intake Free Water 150 ml IV Total 438.608 ml 110 ml Tube Feeding 605 ml 660 ml Output Urine Total 575 ml 550 ml # Bowel Movements 4 Laboratory Tests Test 11/04/18 20:00 11/05/18 03:20 11/05/18 03:30 Stool Occult Blood Negative (NEGATIVE) White Blood Count 13.8 K/UL (4.8-10.8) H Red Blood Count 3.60 M/UL (4.70-6.10) L Hemoglobin 10.3 G/DL (14.2-18.0) L Hematocrit 31.5 % (42.0-52.0) L Mean Corpuscular Volume 88 FL (80-99) Mean Corpuscular Hemoglobin 28.7 PG (27.0-31.0) Mean Corpuscular Hemoglobin Concent 32.8 G/DL (32.0-36.0) Red Cell Distribution Width 14.6 % (11.6-14.8) Platelet Count 190 K/UL (150-450) Mean Platelet Volume 7.5 FL (6.5-10.1) Neutrophils (%) (Auto) 77.4 % (45.0-75.0) H Lymphocytes (%) (Auto) 15.1 % (20.0-45.0) L Monocytes (%) (Auto) 5.1 % (1.0-10.0) Eosinophils (%) (Auto) 1.0 % (0.0-3.0) Basophils (%) (Auto) 1.4 % (0.0-2.0) Sodium Level 147 MMOL/L (136-145) H Potassium Level 3.9 MMOL/L (3.5-5.1) Chloride Level 114 MMOL/L (98-107) H Carbon Dioxide Level 28 MMOL/L (21-32) Anion Gap 5 mmol/L (5-15) Blood Urea Nitrogen 21 mg/dL (7-18) H Creatinine 1.1 MG/DL (0.55-1.30) Estimat Glomerular Filtration Rate > 60 mL/min (>60) Glucose Level 113 MG/DL (74-106) H Calcium Level 7.6 MG/DL (8.5-10.1) L Phosphorus Level 3.2 MG/DL (2.5-4.9) Magnesium Level 2.3 MG/DL (1.8-2.4) Iron Level Pending Unsaturated Iron Binding Pending Ferritin Pending Height (Feet): 5 Height (Inches): 8.00 Weight (Pounds): 242 General Appearance: no apparent distress Cardiovascular: normal rate Respiratory/Chest: normal breath sounds, no respiratory distress Abdominal Exam: normal bowel sounds, non tender, soft, GT site Extremities: non-tender Nevaeh Ocampo NP Nov 05, 2018 10:06
[2018-11-05 10:21] LABS: % IRON SATURATION 12 % (15-50); IRON 17 ug/dL (50-175); TOTAL IRON BINDING CAPACITY 140 ug/dL (250-450)
[2018-11-05] MEDS ORDERED: Acetaminophen 650mg/20.3ml GT PRN (10:30)
[2018-11-05] MEDS ORDERED: Miralax 17gm pkt GT PRN (10:30)
[2018-11-05 10:34] LABS: FERRITIN 294 NG/ML (8-388)
--- NOTE | 2018-11-05 11:44 | NUR ---
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 98.2 HR 101 RR 20 B/P 106/76 2L NC O2 SAT @ 98% NA 147 BUN 21 WBC 13.8 STOOL OCCULT BLOOD= NEG SBO X-RAY= NEGATIVE FOR SBO IS: CEFEPIME IV ZYVOX GT HEPARIN SUBC STEP DOWN STATUS
[2018-11-05 12:00] VITALS: BP 108/74
--- NOTE | 2018-11-05 12:08 | Surgery Progress Note ---
Surgery Progress Note Subjective Additional Comments Patient seen and examined at bedside. With limited examination does not seem to be uncomfortable and does not complain of any discomfort. Seen by urology and input noted. Leukocytosis trending down. Blood cultures identified. Objective Last 24 Hour Vital Signs Date Time Temp Pulse Resp B/P (MAP) Pulse Ox O2 Delivery O2 Flow Rate FiO2 11/05/18 08:00 Nasal Cannula 2.0 11/05/18 08:00 100 11/05/18 08:00 98.1 98 18 135/95 (108) 97 11/05/18 04:00 98.2 98 20 123/86 (98) 98 11/05/18 04:00 Nasal Cannula 2.0 11/05/18 03:23 94 11/05/18 00:00 98.2 101 20 106/76 (86) 98 11/04/18 23:22 Nasal Cannula 2.0 11/04/18 23:22 102 11/04/18 21:41 100 20 94 Room Air 21 11/04/18 20:27 98.1 11/04/18 20:00 101.0 124 24 127/90 (102) 95 11/04/18 19:42 101 11/04/18 19:00 Nasal Cannula 2.0 11/04/18 18:12 119 11/04/18 16:00 98.8 98 21 126/92 (103) 94 11/04/18 16:00 Nasal Cannula 2.0 I&O Intake and Output 11/04/18 11/05/18 19:00 07:00 Intake Total 1193.608 ml 770 ml Output Total 575 ml 550 ml Balance 618.608 ml 220 ml Intake Free Water 150 ml IV Total 438.608 ml 110 ml Tube Feeding 605 ml 660 ml Output Urine Total 575 ml 550 ml # Bowel Movements 4 Cardiovascular: RSR Respiratory: clear Abdomen: soft, present bowel sounds, non-distended Extremities: no cyanosis Laboratory Tests Test 11/04/18 20:00 11/05/18 03:20 11/05/18 03:30 Stool Occult Blood Negative (NEGATIVE) White Blood Count 13.8 K/UL (4.8-10.8) H Red Blood Count 3.60 M/UL (4.70-6.10) L Hemoglobin 10.3 G/DL (14.2-18.0) L Hematocrit 31.5 % (42.0-52.0) L Mean Corpuscular Volume 88 FL (80-99) Mean Corpuscular Hemoglobin 28.7 PG (27.0-31.0) Mean Corpuscular Hemoglobin Concent 32.8 G/DL (32.0-36.0) Red Cell Distribution Width 14.6 % (11.6-14.8) Platelet Count 190 K/UL (150-450) Mean Platelet Volume 7.5 FL (6.5-10.1) Neutrophils (%) (Auto) 77.4 % (45.0-75.0) H Lymphocytes (%) (Auto) 15.1 % (20.0-45.0) L Monocytes (%) (Auto) 5.1 % (1.0-10.0) Eosinophils (%) (Auto) 1.0 % (0.0-3.0) Basophils (%) (Auto) 1.4 % (0.0-2.0) Sodium Level 147 MMOL/L (136-145) H Potassium Level 3.9 MMOL/L (3.5-5.1) Chloride Level 114 MMOL/L (98-107) H Carbon Dioxide Level 28 MMOL/L (21-32) Anion Gap 5 mmol/L (5-15) Blood Urea Nitrogen 21 mg/dL (7-18) H Creatinine 1.1 MG/DL (0.55-1.30) Estimat Glomerular Filtration Rate > 60 mL/min (>60) Glucose Level 113 MG/DL (74-106) H Calcium Level 7.6 MG/DL (8.5-10.1) L Phosphorus Level 3.2 MG/DL (2.5-4.9) Magnesium Level 2.3 MG/DL (1.8-2.4) Iron Level 17 ug/dL (50-175) L Total Iron Binding Capacity 140 ug/dL (250-450) L Percent Iron Saturation 12 % (15-50) L Unsaturated Iron Binding 123 ug/dL (112-346) Ferritin 294 NG/ML (8-388) Plan Problems: (1) Volvulus Assessment & Plan: This is a 58-year-old male currently admitted for work-up of sepsis who was identified to have a leukocytosis, tachycardia, bacteremia. Patient is currently on IV antibiotics and slowly improving. On recent CT scan he was identified to have a potential volvulus. On examination clinically patient does not seem to have volvulus or bowel obstruction. His abdomen is soft nondistended nontender and with positive bowel sounds. He is tolerating tube feeds through his G-tube and having bowel movements and passing flatus. Swirling of the mesentery noted on CT scan concerning and will follow with serial exams and recommendations. For now okay to continue with tube feeds. Thank you for this consultation Small bowel series noted. No obstruction noted. (2) Fecal impaction Assessment & Plan: IMPRESSION: 1. Dilated fluid and gas-filled small bowel loops with transition point in the right lower quadrant where there is swirling of mesenteric vessels and small bowel, concerning for volvulus causing obstruction. 2. Wall thickening of the rectum may be secondary to fecal material versus proctitis. 3. Obstructing stone measuring 1.2 cm in the proximal right ureter. Moderate to severe right hydronephrosis. Additional stones in the right kidney and right renal pelvis, measuring up to approximately 1.8 cm and the right renal pelvis. 4. Small amount of free fluid in the pelvis. No abscess identified. (3) Sepsis Assessment & Plan: There is an obstructing stone within the ureter which is causing moderate severe hydronephrosis. The urinalysis demonstrated bacteria similar to that of his bacteremia. Potential etiology of sepsis and above is these obstructing stone. Recommend urological evaluation. Thank you (4) Anemia (5) Proctitis (6) Gastrostomy tube dependent (7) Obstructive hydrocephalus (8) COPD (chronic obstructive pulmonary disease) (9) Diabetes mellitus (10) Gram negative septicemia (11) Aphasia (12) Feeding by G-tube (13) Cellulitis of scrotum (14) History of CVA (cerebrovascular accident) (15) Suprapubic catheter dysfunction (16) Encephalopathy chronic (17) GILDARDO (acute kidney injury) (18) UTI (urinary tract infection) (19) Septic shock (20) History of DVT (deep vein thrombosis) (21) Suprapubic catheter (22) ATN (acute tubular necrosis) Russell Lopez Nov 05, 2018 12:07
--- NOTE | 2018-11-05 12:18 | Infectious Diseases Prog Note ---
Assessment/Plan Assessment/Plan Assessment: Septic shock- SP -probable pNA -MRSA/ P Mirabilis, E. fecalis bacteremia- m/l source UTI from obstructive stone , may need to r/o endocarditis -small bowel series: No significant small bowel obstruction demonstrated; contrast transitethe entire GI tract in 3 hours -11/03 CT abd/p: 1. Dilated fluid and gas-filled small bowel loops with transition point in the right lower quadrant where there is swirling of mesenteric vessels and small bowel, concerning for volvulus causing obstruction. Wall thickening of the rectum may be secondary to fecal material versus proctitis. Obstructing stone measuring 1.2 cm in the proximal right ureter. Moderate to severe right hydronephrosis. Additional stones in the right kidney and right renal pelvis, measuring up to approximately 1.8 cm and the right renal pelvis. Small amount of free fluid in the pelvis. No abscess identified. -10/30 CXR: Right perihilar disease possibly atelectasis or pneumonia. No change -repeat u/a wbc tnct, nit +, leuk +3 -u/a wbc 19-15, nit +, leuk +2; ucx >100k P. mirabilis (Previously reporte as onlyS Genta, Ertapenem, Zosyn; now hs been updated to R Nitrofurantoin and otherwise S) -CXR: Low lung volumes with right perihilar atelectatic changes. No definite acute process -10/29 Bcx 4/ P. mirabilis (neri S), MRSA; repeat Bcx Neg; 10/30 BCxx 2/4 P Mirabilis , 1/ E. fecalis (S Vanc, AMP); 11/01 Bcx 4/ P. mirabilis, E. fecalis ; 11/04 BCx p -sp cx PsA (neri S), MRSA -2d Echo: no vegeatiosn Fever; improving Leukocytosis; improving GILDARDO, improving hx of UTI -07/2018 ucx E. fecalis (neri S), P. mirabilis -03/2019 ucx PsA TCP CVA/TIA Dm2 CKD suprapubic catheter DVT hypertensive heart disease [place] resident Plan: cont Zyvox #5 and Cefepime # 4 ( monitor PLT ) -11/02 SP Meropenem #4 -11/01 Sp Amikacin #4 , IV Vancomycin #3 -10/29 SP Ertapenem #1, IV Vancomycin x1 -f/u cx -Monitor CBC/CMP, temperatures -aspiration precautions -favor a surgical procedure for relief of stone obstruction due to persistent bacteremia for source control -Will need TASNEEM -f/u Bcxx 2 Subjective Allergies: Coded Allergies: VANCOMYCIN (Verified Allergy, Mild, Redness , 10/29/18) CIPROFLOXACIN (Verified Allergy, Unknown, 08/23/15) Subjective Tm 101 remains bacteremic now on EV leukocytosis improving Objective Vital Signs Last 24 Hour Vital Signs Date Time Temp Pulse Resp B/P (MAP) Pulse Ox O2 Delivery O2 Flow Rate FiO2 11/05/18 08:00 Nasal Cannula 2.0 11/05/18 08:00 100 11/05/18 08:00 98.1 98 18 135/95 (108) 97 11/05/18 04:00 98.2 98 20 123/86 (98) 98 11/05/18 04:00 Nasal Cannula 2.0 11/05/18 03:23 94 11/05/18 00:00 98.2 101 20 106/76 (86) 98 11/04/18 23:22 Nasal Cannula 2.0 11/04/18 23:22 102 11/04/18 21:41 100 20 94 Room Air 21 11/04/18 20:27 98.1 11/04/18 20:00 101.0 124 24 127/90 (102) 95 11/04/18 19:42 101 11/04/18 19:00 Nasal Cannula 2.0 11/04/18 18:12 119 11/04/18 16:00 98.8 98 21 126/92 (103) 94 11/04/18 16:00 Nasal Cannula 2.0 Height (Feet): 5 Height (Inches): 8.00 Weight (Pounds): 242 Objective General Appearance: WD/WN, no apparent distress Lines, tubes and drains: peripheral, central line, gtube HEENT: normocephalic, atraumatic, anicteric Neck: non-tender, normal alignment Respiratory/Chest: chest wall non-tender, lungs clear Cardiovascular/Chest: normal peripheral pulses, normal rate Abdomen: normal bowel sounds Extremities: normal range of motion Laboratory Tests Test 11/04/18 20:00 11/05/18 03:20 11/05/18 03:30 Stool Occult Blood Negative (NEGATIVE) White Blood Count 13.8 K/UL (4.8-10.8) H Red Blood Count 3.60 M/UL (4.70-6.10) L Hemoglobin 10.3 G/DL (14.2-18.0) L Hematocrit 31.5 % (42.0-52.0) L Mean Corpuscular Volume 88 FL (80-99) Mean Corpuscular Hemoglobin 28.7 PG (27.0-31.0) Mean Corpuscular Hemoglobin Concent 32.8 G/DL (32.0-36.0) Red Cell Distribution Width 14.6 % (11.6-14.8) Platelet Count 190 K/UL (150-450) Mean Platelet Volume 7.5 FL (6.5-10.1) Neutrophils (%) (Auto) 77.4 % (45.0-75.0) H Lymphocytes (%) (Auto) 15.1 % (20.0-45.0) L Monocytes (%) (Auto) 5.1 % (1.0-10.0) Eosinophils (%) (Auto) 1.0 % (0.0-3.0) Basophils (%) (Auto) 1.4 % (0.0-2.0) Sodium Level 147 MMOL/L (136-145) H Potassium Level 3.9 MMOL/L (3.5-5.1) Chloride Level 114 MMOL/L (98-107) H Carbon Dioxide Level 28 MMOL/L (21-32) Anion Gap 5 mmol/L (5-15) Blood Urea Nitrogen 21 mg/dL (7-18) H Creatinine 1.1 MG/DL (0.55-1.30) Estimat Glomerular Filtration Rate > 60 mL/min (>60) Glucose Level 113 MG/DL (74-106) H Calcium Level 7.6 MG/DL (8.5-10.1) L Phosphorus Level 3.2 MG/DL (2.5-4.9) Magnesium Level 2.3 MG/DL (1.8-2.4) Iron Level 17 ug/dL (50-175) L Total Iron Binding Capacity 140 ug/dL (250-450) L Percent Iron Saturation 12 % (15-50) L Unsaturated Iron Binding 123 ug/dL (112-346) Ferritin 294 NG/ML (8-388) Current Medications Medications (Trade) Dose Ordered Sig/Fab Route PRN Reason Start Time Stop Time Status Last Admin Dose Admin Acetaminophen (Tylenol) 650 mg Q4H PRN GT fever (temp>100.5 F) 11/05/18 10:30 11/28/18 17:29 Cefepime HCl 2 gm/ Dextrose 55 ml @ 110 mls/hr EVERY 8 HOURS IVPB 11/02/18 13:00 11/09/18 12:59 11/05/18 05:55 Chlorhexidine Gluconate (Licha-Hex 2%) 1 applic DAILY@2000 TOPIC 11/01/18 20:00 11/29/18 19:59 11/04/18 19:58 Diphenhydramine HCl (Benadryl) 25 mg Q6H PRN IVP Itching 11/01/18 11:30 11/28/18 17:29 11/02/18 03:47 Docusate Sodium (Colace) 100 mg THREE TIMES A DAY GT 11/01/18 18:00 12/01/18 17:59 Famotidine (Pepcid) 20 mg Q12HR GT 11/05/18 21:00 11/29/18 20:59 Heparin Sodium (Porcine) (Heparin 5000 units/ml) 5,000 units EVERY 12 HOURS SUBQ 11/01/18 21:00 11/28/18 08:59 11/05/18 08:31 Linezolid (Zyvox) 600 mg EVERY 12 HOURS GT 11/01/18 21:00 11/10/18 20:59 11/05/18 08:32 Midodrine (Pro-Amatine) 10 mg THREE TIMES A DAY GT 11/04/18 13:00 11/29/18 12:59 Morphine Sulfate (Morphine Sulfate) 2 mg Q4H PRN IVP Severe Pain (Pain Scale 7-10) 11/01/18 13:30 11/05/18 17:29 Ondansetron HCl (Zofran) 4 mg Q6H PRN IVP Nausea & Vomiting 11/01/18 11:30 11/28/18 17:29 Polyethylene Glycol (Miralax) 17 gm DAILYPRN PRN GT Constipation 11/05/18 10:30 11/30/18 17:29 Dorothea Macario M.D. Nov 05, 2018 12:18
--- NOTE | 2018-11-05 13:00 | NUR ---
NURSE NOTES: no any distress noted, vital signs stable, tolerate feeding well, bed bath given, repositioned, continue monitoring.
--- NOTE | 2018-11-05 13:24 | General Progress Note ---
Assessment/Plan Problem List: (1) Obstructive hydrocephalus ICD Codes: G91.1 - Obstructive hydrocephalus SNOMED: 459163898 (2) COPD (chronic obstructive pulmonary disease) ICD Codes: J44.9 - Chronic obstructive pulmonary disease, unspecified SNOMED: 96202989 (3) Diabetes mellitus ICD Codes: E11.9 - Type 2 diabetes mellitus without complications SNOMED: 23411454 (4) Feeding by G-tube ICD Codes: Z93.1 - Gastrostomy status SNOMED: 901673277, 480361327 (5) Sepsis ICD Codes: A41.9 - Sepsis, unspecified organism SNOMED: 44331512 (6) History of CVA (cerebrovascular accident) ICD Codes: Z86.73 - Personal history of transient ischemic attack (TIA), and cerebral infarction without residual deficits SNOMED: 402273350 (7) Encephalopathy chronic ICD Codes: G93.49 - Other encephalopathy SNOMED: 43649161 (8) UTI (urinary tract infection) ICD Codes: N39.0 - Urinary tract infection, site not specified SNOMED: 24863060 Qualifiers: Qualified Codes: N30.00 - Acute cystitis without hematuria (9) Septic shock ICD Codes: A41.9 - Sepsis, unspecified organism; R65.21 - Severe sepsis with septic shock SNOMED: 01157071 (10) ATN (acute tubular necrosis) ICD Codes: N17.0 - Acute kidney failure with tubular necrosis SNOMED: 82361581 Status: stable, progressing Assessment/Plan: o2 pulm tx abx bp control cbc bmp am ltach eval Subjective Constitutional: Reports: weakness Allergies: Coded Allergies: VANCOMYCIN (Verified Allergy, Mild, Redness , 10/29/18) CIPROFLOXACIN (Verified Allergy, Unknown, 08/23/15) All Systems: reviewed and negative except above Subjective calm in bed Objective Last 24 Hour Vital Signs Date Time Temp Pulse Resp B/P (MAP) Pulse Ox O2 Delivery O2 Flow Rate FiO2 11/05/18 12:00 Nasal Cannula 2.0 11/05/18 12:00 98.1 97 18 108/74 (85) 95 11/05/18 08:00 Nasal Cannula 2.0 11/05/18 08:00 100 11/05/18 08:00 98.1 98 18 135/95 (108) 97 11/05/18 04:00 98.2 98 20 123/86 (98) 98 11/05/18 04:00 Nasal Cannula 2.0 11/05/18 03:23 94 11/05/18 00:00 98.2 101 20 106/76 (86) 98 11/04/18 23:22 Nasal Cannula 2.0 11/04/18 23:22 102 11/04/18 21:41 100 20 94 Room Air 21 11/04/18 20:27 98.1 11/04/18 20:00 101.0 124 24 127/90 (102) 95 11/04/18 19:42 101 11/04/18 19:00 Nasal Cannula 2.0 11/04/18 18:12 119 11/04/18 16:00 98.8 98 21 126/92 (103) 94 11/04/18 16:00 Nasal Cannula 2.0 Intake and Output 11/04/18 11/05/18 19:00 07:00 Intake Total 1193.608 ml 770 ml Output Total 575 ml 550 ml Balance 618.608 ml 220 ml Intake Free Water 150 ml IV Total 438.608 ml 110 ml Tube Feeding 605 ml 660 ml Output Urine Total 575 ml 550 ml # Bowel Movements 4 Laboratory Tests 11/04/18 20:00: Stool Occult Blood Negative 11/05/18 03:20: White Blood Count 13.8H, Red Blood Count 3.60L, Hemoglobin 10.3L, Hematocrit 31.5L, Mean Corpuscular Volume 88, Mean Corpuscular Hemoglobin 28.7, Mean Corpuscular Hemoglobin Concent 32.8, Red Cell Distribution Width 14.6, Platelet Count 190, Mean Platelet Volume 7.5, Neutrophils (%) (Auto) 77.4H, Lymphocytes ( %) (Auto) 15.1L, Monocytes (%) (Auto) 5.1, Eosinophils (%) (Auto) 1.0, Basophils (%) (Auto) 1.4, Sodium Level 147H, Potassium Level 3.9, Chloride Level 114H, Carbon Dioxide Level 28, Anion Gap 5, Blood Urea Nitrogen 21H, Creatinine 1.1, Estimat Glomerular Filtration Rate > 60, Glucose Level 113H, Calcium Level 7.6L, Phosphorus Level 3.2, Magnesium Level 2.3 11/05/18 03:30: Iron Level 17L, Total Iron Binding Capacity 140L, Percent Iron Saturation 12L, Unsaturated Iron Binding 123, Ferritin 294 Height (Feet): 5 Height (Inches): 8.00 Weight (Pounds): 242 General Appearance: lethargic EENT: normal ENT inspection Neck: normal alignment Cardiovascular: normal peripheral pulses, normal rate, regular rhythm Respiratory/Chest: chest wall non-tender, lungs clear, normal breath sounds Abdomen: normal bowel sounds, non tender, soft Extremities: normal inspection Edema: no edema noted Arm (L), no edema noted Arm (R), no edema noted Leg (L), no edema noted Leg (R), no edema noted Pedal (L), no edema noted Pedal (R), no edema noted Generalized Neurologic: motor weakness Skin: normal pigmentation, warm/dry Jaylen Bear DO Nov 05, 2018 13:24
[2018-11-05] MEDS ORDERED: NS Irrig 1000ml ONE (15:00)
[2018-11-05] MEDS ORDERED: NS 275ml ONE (15:00)
[2018-11-05 16:00] VITALS: BP 135/98
--- NOTE | 2018-11-05 16:18 | Nephrology Progress Note ---
Assessment/Plan Problem List: (1) GILDARDO (acute kidney injury) (2) Septic shock (3) Suprapubic catheter (4) History of CVA (cerebrovascular accident) Assessment Acute renal failure- resolved Septic shock on presentation CVA Suprapubic cath / ? Neurogenic bladder HTN DVT UTI Plan K Phos IV stop Hydrate midodrine avoid nephrotoxics monitor renal parameters med surg? per orders Subjective ROS Limited/Unobtainable: No Objective Objective Last 24 Hour Vital Signs Date Time Temp Pulse Resp B/P (MAP) Pulse Ox O2 Delivery O2 Flow Rate FiO2 11/05/18 16:08 98 11/05/18 16:00 98.4 98 20 135/98 (110) 96 11/05/18 16:00 Nasal Cannula 2.0 11/05/18 12:00 Nasal Cannula 2.0 11/05/18 12:00 98.1 97 18 108/74 (85) 95 11/05/18 12:00 97 11/05/18 08:00 Nasal Cannula 2.0 11/05/18 08:00 100 11/05/18 08:00 98.1 98 18 135/95 (108) 97 11/05/18 04:00 98.2 98 20 123/86 (98) 98 11/05/18 04:00 Nasal Cannula 2.0 11/05/18 03:23 94 11/05/18 00:00 98.2 101 20 106/76 (86) 98 11/04/18 23:22 Nasal Cannula 2.0 11/04/18 23:22 102 11/04/18 21:41 100 20 94 Room Air 21 11/04/18 20:27 98.1 11/04/18 20:00 101.0 124 24 127/90 (102) 95 11/04/18 19:42 101 11/04/18 19:00 Nasal Cannula 2.0 11/04/18 18:12 119 Intake and Output 11/04/18 11/05/18 19:00 07:00 Intake Total 1193.608 ml 770 ml Output Total 575 ml 550 ml Balance 618.608 ml 220 ml Intake Free Water 150 ml IV Total 438.608 ml 110 ml Tube Feeding 605 ml 660 ml Output Urine Total 575 ml 550 ml # Bowel Movements 4 Laboratory Tests 11/04/18 20:00: Stool Occult Blood Negative 11/05/18 03:20: White Blood Count 13.8H, Red Blood Count 3.60L, Hemoglobin 10.3L, Hematocrit 31.5L, Mean Corpuscular Volume 88, Mean Corpuscular Hemoglobin 28.7, Mean Corpuscular Hemoglobin Concent 32.8, Red Cell Distribution Width 14.6, Platelet Count 190, Mean Platelet Volume 7.5, Neutrophils (%) (Auto) 77.4H, Lymphocytes ( %) (Auto) 15.1L, Monocytes (%) (Auto) 5.1, Eosinophils (%) (Auto) 1.0, Basophils (%) (Auto) 1.4, Sodium Level 147H, Potassium Level 3.9, Chloride Level 114H, Carbon Dioxide Level 28, Anion Gap 5, Blood Urea Nitrogen 21H, Creatinine 1.1, Estimat Glomerular Filtration Rate > 60, Glucose Level 113H, Calcium Level 7.6L, Phosphorus Level 3.2, Magnesium Level 2.3 11/05/18 03:30: Iron Level 17L, Total Iron Binding Capacity 140L, Percent Iron Saturation 12L, Unsaturated Iron Binding 123, Ferritin 294 Height (Feet): 5 Height (Inches): 8.00 Weight (Pounds): 242 General Appearance: no apparent distress Objective no change Pranav Grady MD Nov 05, 2018 16:18
--- NOTE | 2018-11-05 17:26 | Cardiac Electrophysiology PN ---
Assessment/Plan Assessment/Plan 1. S/P Septic Shock and dehydration Lactic acidosis 2.4. Off Levophed and on antibiotics Echo Nl EF. WBC down from 21K to 15k MRSA/ P Mirabilis bacteremia may need to r/o endocarditis 2. Sinus tach 140s likely due to sepsis with fever. HR better 3. Inferior wall myocardial infarction based on electrocardiogram. Ruled out for myocardial infarction. EF 65% 4. Hypernatremia. 5. Renal failure. 6. CVA with paraplegia. 7. Status post suprapubic catheter. COLLETTE RN Subjective Subjective In SDU. No events. RN at bedside.Had sinus tach Objective Last 24 Hour Vital Signs Date Time Temp Pulse Resp B/P (MAP) Pulse Ox O2 Delivery O2 Flow Rate FiO2 11/05/18 16:45 89 11/05/18 16:00 98.4 98 20 135/98 (110) 96 11/05/18 16:00 Nasal Cannula 2.0 11/05/18 12:00 Nasal Cannula 2.0 11/05/18 12:00 98.1 97 18 108/74 (85) 95 11/05/18 12:00 97 11/05/18 08:00 Nasal Cannula 2.0 11/05/18 08:00 100 11/05/18 08:00 98.1 98 18 135/95 (108) 97 11/05/18 04:00 98.2 98 20 123/86 (98) 98 11/05/18 04:00 Nasal Cannula 2.0 11/05/18 03:23 94 11/05/18 00:00 98.2 101 20 106/76 (86) 98 11/04/18 23:22 Nasal Cannula 2.0 11/04/18 23:22 102 11/04/18 21:41 100 20 94 Room Air 21 11/04/18 20:27 98.1 11/04/18 20:00 101.0 124 24 127/90 (102) 95 11/04/18 19:42 101 11/04/18 19:00 Nasal Cannula 2.0 11/04/18 18:12 119 Intake and Output 11/04/18 11/05/18 18:59 06:59 Intake Total 1108.608 ml 800 ml Output Total 575 ml 550 ml Balance 533.608 ml 250 ml Intake Free Water 120 ml 30 ml IV Total 438.608 ml 110 ml Tube Feeding 550 ml 660 ml Output Urine Total 575 ml 550 ml # Bowel Movements 4 Laboratory Tests Test 11/04/18 20:00 11/05/18 03:20 11/05/18 03:30 Stool Occult Blood Negative (NEGATIVE) White Blood Count 13.8 K/UL (4.8-10.8) H Red Blood Count 3.60 M/UL (4.70-6.10) L Hemoglobin 10.3 G/DL (14.2-18.0) L Hematocrit 31.5 % (42.0-52.0) L Mean Corpuscular Volume 88 FL (80-99) Mean Corpuscular Hemoglobin 28.7 PG (27.0-31.0) Mean Corpuscular Hemoglobin Concent 32.8 G/DL (32.0-36.0) Red Cell Distribution Width 14.6 % (11.6-14.8) Platelet Count 190 K/UL (150-450) Mean Platelet Volume 7.5 FL (6.5-10.1) Neutrophils (%) (Auto) 77.4 % (45.0-75.0) H Lymphocytes (%) (Auto) 15.1 % (20.0-45.0) L Monocytes (%) (Auto) 5.1 % (1.0-10.0) Eosinophils (%) (Auto) 1.0 % (0.0-3.0) Basophils (%) (Auto) 1.4 % (0.0-2.0) Sodium Level 147 MMOL/L (136-145) H Potassium Level 3.9 MMOL/L (3.5-5.1) Chloride Level 114 MMOL/L (98-107) H Carbon Dioxide Level 28 MMOL/L (21-32) Anion Gap 5 mmol/L (5-15) Blood Urea Nitrogen 21 mg/dL (7-18) H Creatinine 1.1 MG/DL (0.55-1.30) Estimat Glomerular Filtration Rate > 60 mL/min (>60) Glucose Level 113 MG/DL (74-106) H Calcium Level 7.6 MG/DL (8.5-10.1) L Phosphorus Level 3.2 MG/DL (2.5-4.9) Magnesium Level 2.3 MG/DL (1.8-2.4) Iron Level 17 ug/dL (50-175) L Total Iron Binding Capacity 140 ug/dL (250-450) L Percent Iron Saturation 12 % (15-50) L Unsaturated Iron Binding 123 ug/dL (112-346) Ferritin 294 NG/ML (8-388) Objective HEAD AND NECK: No JVD. LUNGS: Coarse rhonchi. CARDIOVASCULAR: Tachy S1, S2 with no gallop. ABDOMEN: Soft, status post suprapubic catheter. EXTREMITIES: Paraplegic with edema Darnell Segundo MD Nov 05, 2018 17:26
--- NOTE | 2018-11-05 17:43 | Cardiac Electrophysiology PN ---
Assessment/Plan Assessment/Plan 1. S/P Septic Shock and dehydration Lactic acidosis 2.4. Off Levophed and on antibiotics Echo Nl EF. WBC down from 21K to 15k MRSA and enterococcus bacteremia. Ordered TASNEEM 2. Sinus tach 140s likely due to sepsis with fever. HR better 3. Inferior wall myocardial infarction based on electrocardiogram. Ruled out for myocardial infarction. EF 65% 4. Hypernatremia. 5. Renal failure. 6. CVA with paraplegia. 7. Status post suprapubic catheter. COLLETTE RN Subjective Subjective In SDU. No events. RN at bedside.Had sinus tach. Now has MRSA and enterococcus bacteremia Objective Last 24 Hour Vital Signs Date Time Temp Pulse Resp B/P (MAP) Pulse Ox O2 Delivery O2 Flow Rate FiO2 11/05/18 16:45 89 11/05/18 16:00 98.4 98 20 135/98 (110) 96 11/05/18 16:00 Nasal Cannula 2.0 11/05/18 12:00 Nasal Cannula 2.0 11/05/18 12:00 98.1 97 18 108/74 (85) 95 11/05/18 12:00 97 11/05/18 08:00 Nasal Cannula 2.0 11/05/18 08:00 100 11/05/18 08:00 98.1 98 18 135/95 (108) 97 11/05/18 04:00 98.2 98 20 123/86 (98) 98 11/05/18 04:00 Nasal Cannula 2.0 11/05/18 03:23 94 11/05/18 00:00 98.2 101 20 106/76 (86) 98 11/04/18 23:22 Nasal Cannula 2.0 11/04/18 23:22 102 11/04/18 21:41 100 20 94 Room Air 21 11/04/18 20:27 98.1 11/04/18 20:00 101.0 124 24 127/90 (102) 95 11/04/18 19:42 101 11/04/18 19:00 Nasal Cannula 2.0 11/04/18 18:12 119 Intake and Output 11/04/18 11/05/18 18:59 06:59 Intake Total 1108.608 ml 800 ml Output Total 575 ml 550 ml Balance 533.608 ml 250 ml Intake Free Water 120 ml 30 ml IV Total 438.608 ml 110 ml Tube Feeding 550 ml 660 ml Output Urine Total 575 ml 550 ml # Bowel Movements 4 Laboratory Tests Test 11/04/18 20:00 11/05/18 03:20 11/05/18 03:30 Stool Occult Blood Negative (NEGATIVE) White Blood Count 13.8 K/UL (4.8-10.8) H Red Blood Count 3.60 M/UL (4.70-6.10) L Hemoglobin 10.3 G/DL (14.2-18.0) L Hematocrit 31.5 % (42.0-52.0) L Mean Corpuscular Volume 88 FL (80-99) Mean Corpuscular Hemoglobin 28.7 PG (27.0-31.0) Mean Corpuscular Hemoglobin Concent 32.8 G/DL (32.0-36.0) Red Cell Distribution Width 14.6 % (11.6-14.8) Platelet Count 190 K/UL (150-450) Mean Platelet Volume 7.5 FL (6.5-10.1) Neutrophils (%) (Auto) 77.4 % (45.0-75.0) H Lymphocytes (%) (Auto) 15.1 % (20.0-45.0) L Monocytes (%) (Auto) 5.1 % (1.0-10.0) Eosinophils (%) (Auto) 1.0 % (0.0-3.0) Basophils (%) (Auto) 1.4 % (0.0-2.0) Sodium Level 147 MMOL/L (136-145) H Potassium Level 3.9 MMOL/L (3.5-5.1) Chloride Level 114 MMOL/L (98-107) H Carbon Dioxide Level 28 MMOL/L (21-32) Anion Gap 5 mmol/L (5-15) Blood Urea Nitrogen 21 mg/dL (7-18) H Creatinine 1.1 MG/DL (0.55-1.30) Estimat Glomerular Filtration Rate > 60 mL/min (>60) Glucose Level 113 MG/DL (74-106) H Calcium Level 7.6 MG/DL (8.5-10.1) L Phosphorus Level 3.2 MG/DL (2.5-4.9) Magnesium Level 2.3 MG/DL (1.8-2.4) Iron Level 17 ug/dL (50-175) L Total Iron Binding Capacity 140 ug/dL (250-450) L Percent Iron Saturation 12 % (15-50) L Unsaturated Iron Binding 123 ug/dL (112-346) Ferritin 294 NG/ML (8-388) Objective HEAD AND NECK: No JVD. LUNGS: Coarse rhonchi. CARDIOVASCULAR: Tachy S1, S2 with no gallop. ABDOMEN: Soft, status post suprapubic catheter. EXTREMITIES: Paraplegic with edema Darnell Segundo MD Nov 05, 2018 17:43
--- NOTE | 2018-11-05 19:14 | NUR ---
HAND-OFF: Report given to HALIMA CHRISTOPHER.
--- NOTE | 2018-11-05 19:15 | NUR ---
NURSE NOTES: Received patient from Clover Rodriguez RN. Patient is awake and oriented x1. Receiving oxygen via room air, patient tolerating well, showing no signs of respiratory distress. G-tube is patent and receiving Glucerna 1.5 @55cc/hr. Patient has a suprapubic catheter patent and draining. IV site is Right Foot 22g and Right hand 24g both patent and asymptomatic. Bed is locked, placed in lowest position, side rails up x3, bed alarm on. Will continue to monitor.
[2018-11-05 20:00] VITALS: BP 128/87
[2018-11-05] MEDS: Dyna-Hex 2% Top Sol 2oz TOPIC SCH (20:38)
[2018-11-06] VITALS: BP 129/88
[2018-11-06 04:00] VITALS: BP 130/85
[2018-11-06 04:42] LABS: BASOPHILS % (AUTO) 1.1 % (0.0-2.0); EOSINOPHILS % (AUTO) 1.3 % (0.0-3.0); HEMATOCRIT 32.1 % (42.0-52.0); HEMOGLOBIN 10.4 G/DL (14.2-18.0); LYMPHOCYTES % (AUTO) 17.1 % (20.0-45.0); MEAN CORPUSCULAR VOLUME 88 FL (80-99); MONOCYTES % (AUTO) 7.3 % (1.0-10.0); NEUTROPHILS % (AUTO) 73.2 % (45.0-75.0); PLATELET COUNT 189 K/UL (150-450); RED BLOOD COUNT 3.63 M/UL (4.70-6.10); RED CELL DISTRIBUTION WIDTH 14.7 % (11.6-14.8); WHITE BLOOD COUNT 13.1 K/UL (4.8-10.8)
[2018-11-06 04:47] LABS: ANION GAP 7 mmol/L (5-15); BLOOD UREA NITROGEN 21 mg/dL (7-18); CALCIUM 8.1 MG/DL (8.5-10.1); CARBON DIOXIDE 27 MMOL/L (21-32); CHLORIDE 111 MMOL/L (98-107); POTASSIUM 4.8 MMOL/L (3.5-5.1); SODIUM 145 MMOL/L (136-145)
[2018-11-06] MEDS: Cefepime HCl 2 GM in D5W 55 ML IVPB SCH ×3 (05:48→22:05)
--- NOTE | 2018-11-06 07:33 | NUR ---
HAND-OFF: Report given to Clover Jamil RN. Patient in stable condition.
--- NOTE | 2018-11-06 07:35 | NUR ---
NURSE NOTES: Report received from Amanda Azul RN.Pt awake,alert noted no resp distress on 2L NC ,no signs of pain or discomfort SR on the monitor,GTF off,Kept NPO for TASNEEM,but no consent for procedure noted,with Supra pubic catheter in placed draining yellow urine,incontinent of liquid diarrhea like stools in mod amount,PIV x2 intact, RH and RT foot HL,skin warm and dry ,SR up x2 HOB elevated,will continue with plans of care.
[2018-11-06 08:00] VITALS: BP 120/77
--- NOTE | 2018-11-06 08:00 | NUR ---
NURSE NOTES: Consent for TASNEEM obtained from pt's sister per Telephone consent,procedure explained ,verbalized understanding,witnessed by another RN.
[2018-11-06] MEDS: Docusate 100mg/10ml Liq GT SCH ×3 (09:00→17:52)
[2018-11-06] MEDS: Midodrine 10mg tab GT SCH ×3 (09:00→17:52)
--- NOTE | 2018-11-06 09:04 | Diagnostic Imaging Report ---
APPROVED REPORT CPT Code: 90703 Present Symptoms Comments: BILATERAL LEGS PAIN. RIGHT LEG: Venous imaging reveals a patent deep venous system. There is no evidence of thrombus within the femoral, popliteal or tibial segments. The greater saphenous vein is also within normal limits. Doppler indicates normal spontaneous flow within these segments. LEFT LEG: Venous imaging reveals recanalized chronic thrombus in the superficial femoral vein. Large collateral vein noted anterior to the superficial femoral artery. The remainder of the deep venous system is within normal limits. There is no evidence of thrombus in the common femoral, popliteal or calf veins. The greater saphenous vein is also within normal limits. Doppler indicates normal spontaneous flow within these segments.
--- NOTE | 2018-11-06 09:47 | General Progress Note ---
Assessment/Plan Problem List: (1) Obstructive hydrocephalus ICD Codes: G91.1 - Obstructive hydrocephalus SNOMED: 858411142 (2) COPD (chronic obstructive pulmonary disease) ICD Codes: J44.9 - Chronic obstructive pulmonary disease, unspecified SNOMED: 82301543 (3) Diabetes mellitus ICD Codes: E11.9 - Type 2 diabetes mellitus without complications SNOMED: 95631247 (4) Feeding by G-tube ICD Codes: Z93.1 - Gastrostomy status SNOMED: 016059330, 534076838 (5) Sepsis ICD Codes: A41.9 - Sepsis, unspecified organism SNOMED: 79556312 (6) History of CVA (cerebrovascular accident) ICD Codes: Z86.73 - Personal history of transient ischemic attack (TIA), and cerebral infarction without residual deficits SNOMED: 214536307 (7) Encephalopathy chronic ICD Codes: G93.49 - Other encephalopathy SNOMED: 72486941 (8) UTI (urinary tract infection) ICD Codes: N39.0 - Urinary tract infection, site not specified SNOMED: 56408272 Qualifiers: Qualified Codes: N30.00 - Acute cystitis without hematuria (9) Septic shock ICD Codes: A41.9 - Sepsis, unspecified organism; R65.21 - Severe sepsis with septic shock SNOMED: 78933215 (10) ATN (acute tubular necrosis) ICD Codes: N17.0 - Acute kidney failure with tubular necrosis SNOMED: 28983929 Status: stable, progressing Assessment/Plan: o2 pulm tx abx bp control cbc bmp am ltach eval Subjective Constitutional: Reports: weakness Allergies: Coded Allergies: VANCOMYCIN (Verified Allergy, Mild, Redness , 10/29/18) CIPROFLOXACIN (Verified Allergy, Unknown, 08/23/15) All Systems: reviewed and negative except above Subjective sl general pain Objective Last 24 Hour Vital Signs Date Time Temp Pulse Resp B/P (MAP) Pulse Ox O2 Delivery O2 Flow Rate FiO2 11/06/18 07:11 97 18 95 Room Air 21 11/06/18 04:00 Nasal Cannula 2.0 11/06/18 04:00 97.9 98 22 130/85 (100) 96 11/06/18 03:53 99 11/06/18 00:00 99.5 98 24 129/88 (102) 98 11/06/18 00:00 Nasal Cannula 2.0 11/05/18 23:25 100 11/05/18 20:28 101 18 96 Room Air 21 11/05/18 20:00 Nasal Cannula 2.0 11/05/18 20:00 99.5 101 24 128/87 (101) 100 11/05/18 19:37 120 11/05/18 16:45 89 11/05/18 16:00 98.4 98 20 135/98 (110) 96 11/05/18 16:00 Nasal Cannula 2.0 11/05/18 12:00 Nasal Cannula 2.0 11/05/18 12:00 98.1 97 18 108/74 (85) 95 11/05/18 12:00 97 Intake and Output 11/05/18 11/06/18 19:00 07:00 Intake Total 1015 ml 705 ml Output Total 700 ml 450 ml Balance 315 ml 255 ml Intake Free Water 300 ml 100 ml IV Total 55 ml 55 ml Tube Feeding 660 ml 550 ml Output Urine Total 700 ml 450 ml # Bowel Movements 8 5 Laboratory Tests 11/06/18 03:45: White Blood Count 13.1H, Red Blood Count 3.63L, Hemoglobin 10.4L, Hematocrit 32.1L, Mean Corpuscular Volume 88, Mean Corpuscular Hemoglobin 28.6, Mean Corpuscular Hemoglobin Concent 32.4, Red Cell Distribution Width 14.7, Platelet Count 189, Mean Platelet Volume 6.8, Neutrophils (%) (Auto) 73.2, Lymphocytes (% ) (Auto) 17.1L, Monocytes (%) (Auto) 7.3, Eosinophils (%) (Auto) 1.3, Basophils (%) (Auto) 1.1, Sodium Level 145, Potassium Level 4.8, Chloride Level 111H, Carbon Dioxide Level 27, Anion Gap 7, Blood Urea Nitrogen 21H, Creatinine 1.0, Estimat Glomerular Filtration Rate > 60, Glucose Level 99, Calcium Level 8.1L Height (Feet): 5 Height (Inches): 8.00 Weight (Pounds): 244 General Appearance: lethargic EENT: normal ENT inspection Neck: normal alignment Cardiovascular: normal peripheral pulses, normal rate, regular rhythm Respiratory/Chest: chest wall non-tender, lungs clear, normal breath sounds Abdomen: normal bowel sounds, non tender, soft Extremities: normal inspection Edema: no edema noted Arm (L), no edema noted Arm (R), no edema noted Leg (L), no edema noted Leg (R), no edema noted Pedal (L), no edema noted Pedal (R), no edema noted Generalized Neurologic: motor weakness Skin: normal pigmentation, warm/dry Jaylen Bear DO Nov 06, 2018 09:47
--- NOTE | 2018-11-06 10:00 | NUR ---
NURSE NOTES: Medical Accounts Receivable Specialist Paul ,called and said no DR available to perform procedure today ,NPO status cancelled,GT feeding turned on and due medic given.
--- NOTE | 2018-11-06 10:12 | GI Progress Note ---
Assessment/Plan Problems: (1) Aphasia ICD Codes: R47.01 - Aphasia SNOMED: 76940815 (2) Anemia ICD Codes: D64.9 - Anemia, unspecified SNOMED: 387002452 (3) Fecal impaction ICD Codes: K56.41 - Fecal impaction SNOMED: 89410926 (4) Proctitis ICD Codes: K62.89 - Other specified diseases of anus and rectum SNOMED: 3003025 (5) Volvulus ICD Codes: K56.2 - Volvulus SNOMED: 4669900 Status: stable Status Narrative Discussed with Dr. Faust. Assessment/Plan SBFT negative OB stool negative Patient may benefit from colonoscopy to evaluate proctitis, can be done as outpatient. Anemia work-up reviewed Prevacid Monitor H&H, PRN transfusions Bowel regimen turn q2 hours Follow-up labs The patient was seen and examined at bedside and all new and available data was reviewed in the patients chart. I agree with the above findings, impression and plan. (Patient seen earlier today. Signature stamp does not reflect patient encounter time.). - Deep Faust MD Subjective Gastrointestinal/Abdominal: Reports: no symptoms Objective Last 24 Hour Vital Signs Date Time Temp Pulse Resp B/P (MAP) Pulse Ox O2 Delivery O2 Flow Rate FiO2 11/06/18 07:11 97 18 95 Room Air 21 11/06/18 04:00 Nasal Cannula 2.0 11/06/18 04:00 97.9 98 22 130/85 (100) 96 11/06/18 03:53 99 11/06/18 00:00 99.5 98 24 129/88 (102) 98 11/06/18 00:00 Nasal Cannula 2.0 11/05/18 23:25 100 11/05/18 20:28 101 18 96 Room Air 21 11/05/18 20:00 Nasal Cannula 2.0 11/05/18 20:00 99.5 101 24 128/87 (101) 100 11/05/18 19:37 120 11/05/18 16:45 89 11/05/18 16:00 98.4 98 20 135/98 (110) 96 11/05/18 16:00 Nasal Cannula 2.0 11/05/18 12:00 Nasal Cannula 2.0 11/05/18 12:00 98.1 97 18 108/74 (85) 95 11/05/18 12:00 97 Intake and Output 11/05/18 11/06/18 19:00 07:00 Intake Total 1015 ml 705 ml Output Total 700 ml 450 ml Balance 315 ml 255 ml Intake Free Water 300 ml 100 ml IV Total 55 ml 55 ml Tube Feeding 660 ml 550 ml Output Urine Total 700 ml 450 ml # Bowel Movements 8 5 Laboratory Tests Test 11/06/18 03:45 White Blood Count 13.1 K/UL (4.8-10.8) H Red Blood Count 3.63 M/UL (4.70-6.10) L Hemoglobin 10.4 G/DL (14.2-18.0) L Hematocrit 32.1 % (42.0-52.0) L Mean Corpuscular Volume 88 FL (80-99) Mean Corpuscular Hemoglobin 28.6 PG (27.0-31.0) Mean Corpuscular Hemoglobin Concent 32.4 G/DL (32.0-36.0) Red Cell Distribution Width 14.7 % (11.6-14.8) Platelet Count 189 K/UL (150-450) Mean Platelet Volume 6.8 FL (6.5-10.1) Neutrophils (%) (Auto) 73.2 % (45.0-75.0) Lymphocytes (%) (Auto) 17.1 % (20.0-45.0) L Monocytes (%) (Auto) 7.3 % (1.0-10.0) Eosinophils (%) (Auto) 1.3 % (0.0-3.0) Basophils (%) (Auto) 1.1 % (0.0-2.0) Sodium Level 145 MMOL/L (136-145) Potassium Level 4.8 MMOL/L (3.5-5.1) Chloride Level 111 MMOL/L (98-107) H Carbon Dioxide Level 27 MMOL/L (21-32) Anion Gap 7 mmol/L (5-15) Blood Urea Nitrogen 21 mg/dL (7-18) H Creatinine 1.0 MG/DL (0.55-1.30) Estimat Glomerular Filtration Rate > 60 mL/min (>60) Glucose Level 99 MG/DL (74-106) Calcium Level 8.1 MG/DL (8.5-10.1) L Height (Feet): 5 Height (Inches): 8.00 Weight (Pounds): 244 General Appearance: WD/WN, no apparent distress, alert Cardiovascular: normal rate Respiratory/Chest: normal breath sounds, no respiratory distress Abdominal Exam: normal bowel sounds, non tender, soft Extremities: normal range of motion, non-tender Nevaeh Ocampo NP Nov 06, 2018 10:12
--- NOTE | 2018-11-06 10:24 | Pulmonology Progress Note ---
Assessment/Plan Problems: (1) Septic shock (2) ATN (acute tubular necrosis) (3) COPD (chronic obstructive pulmonary disease) (4) Encephalopathy chronic (5) Obstructive hydrocephalus (6) History of DVT (deep vein thrombosis) (7) Suprapubic catheter (8) Aphasia (9) Feeding by G-tube (10) History of CVA (cerebrovascular accident) Assessment/Plan no new more stable persistent bacteremia less tachy respiratory treatment titrate fio2 to sat of 92% renal function better. f/u urology recommendations Subjective ROS Limited/Unobtainable: No Constitutional: Reports: no symptoms Allergies: Coded Allergies: VANCOMYCIN (Verified Allergy, Mild, Redness , 10/29/18) CIPROFLOXACIN (Verified Allergy, Unknown, 08/23/15) Objective Last 24 Hour Vital Signs Date Time Temp Pulse Resp B/P (MAP) Pulse Ox O2 Delivery O2 Flow Rate FiO2 11/06/18 07:11 97 18 95 Room Air 21 11/06/18 04:00 Nasal Cannula 2.0 11/06/18 04:00 97.9 98 22 130/85 (100) 96 11/06/18 03:53 99 11/06/18 00:00 99.5 98 24 129/88 (102) 98 11/06/18 00:00 Nasal Cannula 2.0 11/05/18 23:25 100 11/05/18 20:28 101 18 96 Room Air 21 11/05/18 20:00 Nasal Cannula 2.0 11/05/18 20:00 99.5 101 24 128/87 (101) 100 11/05/18 19:37 120 11/05/18 16:45 89 11/05/18 16:00 98.4 98 20 135/98 (110) 96 11/05/18 16:00 Nasal Cannula 2.0 11/05/18 12:00 Nasal Cannula 2.0 11/05/18 12:00 98.1 97 18 108/74 (85) 95 11/05/18 12:00 97 Intake and Output 11/05/18 11/06/18 19:00 07:00 Intake Total 1015 ml 705 ml Output Total 700 ml 450 ml Balance 315 ml 255 ml Intake Free Water 300 ml 100 ml IV Total 55 ml 55 ml Tube Feeding 660 ml 550 ml Output Urine Total 700 ml 450 ml # Bowel Movements 8 5 General Appearance: WD/WN HEENT: normocephalic, anicteric Respiratory/Chest: chest wall non-tender, lungs clear Abdomen: normal bowel sounds, no organomegaly Extremities: no clubbing Laboratory Tests 11/06/18 03:45: White Blood Count 13.1H, Red Blood Count 3.63L, Hemoglobin 10.4L, Hematocrit 32.1L, Mean Corpuscular Volume 88, Mean Corpuscular Hemoglobin 28.6, Mean Corpuscular Hemoglobin Concent 32.4, Red Cell Distribution Width 14.7, Platelet Count 189, Mean Platelet Volume 6.8, Neutrophils (%) (Auto) 73.2, Lymphocytes (% ) (Auto) 17.1L, Monocytes (%) (Auto) 7.3, Eosinophils (%) (Auto) 1.3, Basophils (%) (Auto) 1.1, Sodium Level 145, Potassium Level 4.8, Chloride Level 111H, Carbon Dioxide Level 27, Anion Gap 7, Blood Urea Nitrogen 21H, Creatinine 1.0, Estimat Glomerular Filtration Rate > 60, Glucose Level 99, Calcium Level 8.1L Current Medications Medications (Trade) Dose Ordered Sig/Fab Route PRN Reason Start Time Stop Time Status Last Admin Dose Admin Acetaminophen (Tylenol) 650 mg Q4H PRN GT fever (temp>100.5 F) 11/05/18 10:30 11/28/18 17:29 Cefepime HCl 2 gm/ Dextrose 55 ml @ 110 mls/hr EVERY 8 HOURS IVPB 11/02/18 13:00 11/09/18 12:59 11/06/18 05:48 Chlorhexidine Gluconate (Licha-Hex 2%) 1 applic DAILY@1999 TOPIC 11/01/18 20:00 11/29/18 19:59 11/05/18 20:38 Diphenhydramine HCl (Benadryl) 25 mg Q6H PRN IVP Itching 11/01/18 11:30 11/28/18 17:29 11/02/18 03:47 Docusate Sodium (Colace) 100 mg THREE TIMES A DAY GT 11/01/18 18:00 12/01/18 17:59 Famotidine (Pepcid) 20 mg Q12HR GT 11/05/18 21:00 11/29/18 20:59 11/05/18 20:38 Heparin Sodium (Porcine) (Heparin 5000 units/ml) 5,000 units EVERY 12 HOURS SUBQ 11/01/18 21:00 11/28/18 08:59 11/05/18 20:40 Linezolid (Zyvox) 600 mg EVERY 12 HOURS GT 11/01/18 21:00 11/10/18 20:59 11/05/18 20:38 Midodrine (Pro-Amatine) 10 mg THREE TIMES A DAY GT 11/04/18 13:00 11/29/18 12:59 Ondansetron HCl (Zofran) 4 mg Q6H PRN IVP Nausea & Vomiting 11/01/18 11:30 11/28/18 17:29 Polyethylene Glycol (Miralax) 17 gm DAILYPRN PRN GT Constipation 11/05/18 10:30 11/30/18 17:29 Rigoberto Bryant MD Nov 06, 2018 10:24
[2018-11-06] MEDS: Heparin 5000 units/ml inj SUBQ SCH ×2 (10:30→20:35)
--- NOTE | 2018-11-06 10:30 | NUR ---
NURSE NOTES: WOCN Emily at bedside , assessed and dressed pt's wound to lower mid abd .kept dry and clean,repositioned to sides.
--- NOTE | 2018-11-06 10:51 | Nephrology Progress Note ---
Assessment/Plan Problem List: (1) GILDARDO (acute kidney injury) (2) Septic shock (3) Suprapubic catheter (4) History of CVA (cerebrovascular accident) Assessment Acute renal failure- resolved Septic shock on presentation CVA Suprapubic cath / ? Neurogenic bladder HTN DVT UTI Plan K Phos IV stop Hydrate midodrine avoid nephrotoxics monitor renal parameters med surg? per orders Subjective ROS Limited/Unobtainable: No Constitutional: Reports: malaise Objective Objective Last 24 Hour Vital Signs Date Time Temp Pulse Resp B/P (MAP) Pulse Ox O2 Delivery O2 Flow Rate FiO2 11/06/18 08:00 98.2 97 20 120/77 (91) 97 11/06/18 08:00 Nasal Cannula 2.0 11/06/18 07:44 84 11/06/18 07:11 97 18 95 Room Air 21 11/06/18 04:00 Nasal Cannula 2.0 11/06/18 04:00 97.9 98 22 130/85 (100) 96 11/06/18 03:53 99 11/06/18 00:00 99.5 98 24 129/88 (102) 98 11/06/18 00:00 Nasal Cannula 2.0 11/05/18 23:25 100 11/05/18 20:28 101 18 96 Room Air 21 11/05/18 20:00 Nasal Cannula 2.0 11/05/18 20:00 99.5 101 24 128/87 (101) 100 11/05/18 19:37 120 11/05/18 16:45 89 11/05/18 16:00 98.4 98 20 135/98 (110) 96 11/05/18 16:00 Nasal Cannula 2.0 11/05/18 12:00 Nasal Cannula 2.0 11/05/18 12:00 98.1 97 18 108/74 (85) 95 11/05/18 12:00 97 Intake and Output 11/05/18 11/06/18 19:00 07:00 Intake Total 1015 ml 705 ml Output Total 700 ml 450 ml Balance 315 ml 255 ml Intake Free Water 300 ml 100 ml IV Total 55 ml 55 ml Tube Feeding 660 ml 550 ml Output Urine Total 700 ml 450 ml # Bowel Movements 8 5 Laboratory Tests 11/06/18 03:45: White Blood Count 13.1H, Red Blood Count 3.63L, Hemoglobin 10.4L, Hematocrit 32.1L, Mean Corpuscular Volume 88, Mean Corpuscular Hemoglobin 28.6, Mean Corpuscular Hemoglobin Concent 32.4, Red Cell Distribution Width 14.7, Platelet Count 189, Mean Platelet Volume 6.8, Neutrophils (%) (Auto) 73.2, Lymphocytes (% ) (Auto) 17.1L, Monocytes (%) (Auto) 7.3, Eosinophils (%) (Auto) 1.3, Basophils (%) (Auto) 1.1, Sodium Level 145, Potassium Level 4.8, Chloride Level 111H, Carbon Dioxide Level 27, Anion Gap 7, Blood Urea Nitrogen 21H, Creatinine 1.0, Estimat Glomerular Filtration Rate > 60, Glucose Level 99, Calcium Level 8.1L Height (Feet): 5 Height (Inches): 8.00 Weight (Pounds): 244 General Appearance: no apparent distress Objective no change Pranav Grady MD Nov 06, 2018 10:51
--- NOTE | 2018-11-06 11:00 | Infectious Diseases Prog Note ---
Assessment/Plan Assessment/Plan Assessment: Septic shock- SP -probable pNA -MRSA/ P Mirabilis, E. fecalis bacteremia- m/l source UTI from obstructive stone , may need to r/o endocarditis -small bowel series: No significant small bowel obstruction demonstrated; contrast transitethe entire GI tract in 3 hours -11/03 CT abd/p: 1. Dilated fluid and gas-filled small bowel loops with transition point in the right lower quadrant where there is swirling of mesenteric vessels and small bowel, concerning for volvulus causing obstruction. Wall thickening of the rectum may be secondary to fecal material versus proctitis. Obstructing stone measuring 1.2 cm in the proximal right ureter. Moderate to severe right hydronephrosis. Additional stones in the right kidney and right renal pelvis, measuring up to approximately 1.8 cm and the right renal pelvis. Small amount of free fluid in the pelvis. No abscess identified. -10/30 CXR: Right perihilar disease possibly atelectasis or pneumonia. No change -repeat u/a wbc tnct, nit +, leuk +3 -u/a wbc 19-15, nit +, leuk +2; ucx >100k P. mirabilis (Previously reporte as onlyS Genta, Ertapenem, Zosyn; now hs been updated to R Nitrofurantoin and otherwise S) -CXR: Low lung volumes with right perihilar atelectatic changes. No definite acute process -10/29 Bcx 4/ P. mirabilis (neri S), MRSA; repeat Bcx Neg; 10/30 BCxx 2/4 P Mirabilis , 1/ E. fecalis (S Vanc, AMP); 11/01 Bcx 4/4 P. mirabilis, E. fecalis ; 11/04 BCx p -sp cx PsA (neri S), MRSA -2d Echo: no vegeatiosn Fever; improving Leukocytosis; improving GILDARDO, improving hx of UTI -07/2018 ucx E. fecalis (neri S), P. mirabilis -03/2019 ucx PsA TCP , SP CVA/TIA Dm2 CKD suprapubic catheter DVT hypertensive heart disease [place] resident Plan: cont Zyvox #6 and Cefepime # 5 ( monitor PLT ) for MRSA, enterococus and Proteus bacteremia, respectively -11/02 SP Meropenem #4 -11/01 Sp Amikacin #4 , IV Vancomycin #3 -10/29 SP Ertapenem #1, IV Vancomycin x1 -f/u cx -Monitor CBC/CMP, temperatures -aspiration precautions -favor a surgical procedure for relief of stone obstruction due to persistent bacteremia for source control -for TASNEEM to evaluate for endocarditis -f/u repeat Bcx x 2 -Uro, Cards, Sx f/u Subjective Allergies: Coded Allergies: VANCOMYCIN (Verified Allergy, Mild, Redness , 10/29/18) CIPROFLOXACIN (Verified Allergy, Unknown, 08/23/15) Subjective afebrile in >36hrs repeat Bcx p wbc improved Objective Vital Signs Last 24 Hour Vital Signs Date Time Temp Pulse Resp B/P (MAP) Pulse Ox O2 Delivery O2 Flow Rate FiO2 11/06/18 08:00 98.2 97 20 120/77 (91) 97 11/06/18 08:00 Nasal Cannula 2.0 11/06/18 07:44 84 11/06/18 07:11 97 18 95 Room Air 21 11/06/18 04:00 Nasal Cannula 2.0 11/06/18 04:00 97.9 98 22 130/85 (100) 96 11/06/18 03:53 99 11/06/18 00:00 99.5 98 24 129/88 (102) 98 11/06/18 00:00 Nasal Cannula 2.0 11/05/18 23:25 100 11/05/18 20:28 101 18 96 Room Air 21 11/05/18 20:00 Nasal Cannula 2.0 11/05/18 20:00 99.5 101 24 128/87 (101) 100 11/05/18 19:37 120 11/05/18 16:45 89 11/05/18 16:00 98.4 98 20 135/98 (110) 96 11/05/18 16:00 Nasal Cannula 2.0 11/05/18 12:00 Nasal Cannula 2.0 11/05/18 12:00 98.1 97 18 108/74 (85) 95 11/05/18 12:00 97 Height (Feet): 5 Height (Inches): 8.00 Weight (Pounds): 244 Objective General Appearance: WD/WN, no apparent distress Lines, tubes and drains: peripheral, central line, gtube HEENT: normocephalic, atraumatic, anicteric Neck: non-tender, normal alignment Respiratory/Chest: chest wall non-tender, lungs clear Cardiovascular/Chest: normal peripheral pulses, normal rate Abdomen: normal bowel sounds Extremities: normal range of motion Laboratory Tests Test 11/06/18 03:45 White Blood Count 13.1 K/UL (4.8-10.8) H Red Blood Count 3.63 M/UL (4.70-6.10) L Hemoglobin 10.4 G/DL (14.2-18.0) L Hematocrit 32.1 % (42.0-52.0) L Mean Corpuscular Volume 88 FL (80-99) Mean Corpuscular Hemoglobin 28.6 PG (27.0-31.0) Mean Corpuscular Hemoglobin Concent 32.4 G/DL (32.0-36.0) Red Cell Distribution Width 14.7 % (11.6-14.8) Platelet Count 189 K/UL (150-450) Mean Platelet Volume 6.8 FL (6.5-10.1) Neutrophils (%) (Auto) 73.2 % (45.0-75.0) Lymphocytes (%) (Auto) 17.1 % (20.0-45.0) L Monocytes (%) (Auto) 7.3 % (1.0-10.0) Eosinophils (%) (Auto) 1.3 % (0.0-3.0) Basophils (%) (Auto) 1.1 % (0.0-2.0) Sodium Level 145 MMOL/L (136-145) Potassium Level 4.8 MMOL/L (3.5-5.1) Chloride Level 111 MMOL/L (98-107) H Carbon Dioxide Level 27 MMOL/L (21-32) Anion Gap 7 mmol/L (5-15) Blood Urea Nitrogen 21 mg/dL (7-18) H Creatinine 1.0 MG/DL (0.55-1.30) Estimat Glomerular Filtration Rate > 60 mL/min (>60) Glucose Level 99 MG/DL (74-106) Calcium Level 8.1 MG/DL (8.5-10.1) L Current Medications Medications (Trade) Dose Ordered Sig/Fab Route PRN Reason Start Time Stop Time Status Last Admin Dose Admin Acetaminophen (Tylenol) 650 mg Q4H PRN GT fever (temp>100.5 F) 11/05/18 10:30 11/28/18 17:29 Cefepime HCl 2 gm/ Dextrose 55 ml @ 110 mls/hr EVERY 8 HOURS IVPB 11/02/18 13:00 11/09/18 12:59 11/06/18 05:48 Chlorhexidine Gluconate (Licha-Hex 2%) 1 applic DAILY@2000 TOPIC 11/01/18 20:00 11/29/18 19:59 11/05/18 20:38 Diphenhydramine HCl (Benadryl) 25 mg Q6H PRN IVP Itching 11/01/18 11:30 11/28/18 17:29 11/02/18 03:47 Docusate Sodium (Colace) 100 mg THREE TIMES A DAY GT 11/01/18 18:00 12/01/18 17:59 Famotidine (Pepcid) 20 mg Q12HR GT 11/05/18 21:00 11/29/18 20:59 11/06/18 10:27 Heparin Sodium (Porcine) (Heparin 5000 units/ml) 5,000 units EVERY 12 HOURS SUBQ 11/01/18 21:00 11/28/18 08:59 11/06/18 10:30 Linezolid (Zyvox) 600 mg EVERY 12 HOURS GT 11/01/18 21:00 11/10/18 20:59 11/06/18 10:27 Midodrine (Pro-Amatine) 10 mg THREE TIMES A DAY GT 11/04/18 13:00 11/29/18 12:59 Ondansetron HCl (Zofran) 4 mg Q6H PRN IVP Nausea & Vomiting 11/01/18 11:30 11/28/18 17:29 Polyethylene Glycol (Miralax) 17 gm DAILYPRN PRN GT Constipation 11/05/18 10:30 11/30/18 17:29 Dorothea Macario M.D. Nov 06, 2018 11:00
[2018-11-06 11:50] VITALS: BP 126/84
--- NOTE | 2018-11-06 13:39 | NUR ---
[employer]Y LEGAL COUNSEL SI: SEPTIC SHOCK,UTI T. 98.2 HR 111 RR 20 B/P 120/77 2L NC O2 SAT @ 98% WBC 13.1 BUN 21 IS: CEFEPIME IV ZYVOX GT MIDODRINE PO TASNEEM MED/SURG STATUS
--- NOTE | 2018-11-06 13:59 | Surgery Progress Note ---
Surgery Progress Note Subjective Symptoms: improved Additional Comments leukocytosis stable exam unchanged no complaints Objective Last 24 Hour Vital Signs Date Time Temp Pulse Resp B/P (MAP) Pulse Ox O2 Delivery O2 Flow Rate FiO2 11/06/18 12:02 Nasal Cannula 2.0 11/06/18 12:00 111 11/06/18 11:50 98.2 87 20 126/84 (98) 97 11/06/18 08:00 98.2 97 20 120/77 (91) 97 11/06/18 08:00 Nasal Cannula 2.0 11/06/18 07:44 84 11/06/18 07:11 97 18 95 Room Air 21 11/06/18 04:00 Nasal Cannula 2.0 11/06/18 04:00 97.9 98 22 130/85 (100) 96 11/06/18 03:53 99 11/06/18 00:00 99.5 98 24 129/88 (102) 98 11/06/18 00:00 Nasal Cannula 2.0 11/05/18 23:25 100 11/05/18 20:28 101 18 96 Room Air 21 11/05/18 20:00 Nasal Cannula 2.0 11/05/18 20:00 99.5 101 24 128/87 (101) 100 11/05/18 19:37 120 11/05/18 16:45 89 11/05/18 16:00 98.4 98 20 135/98 (110) 96 11/05/18 16:00 Nasal Cannula 2.0 I&O Intake and Output 11/05/18 11/06/18 19:00 07:00 Intake Total 1015 ml 705 ml Output Total 700 ml 450 ml Balance 315 ml 255 ml Intake Free Water 300 ml 100 ml IV Total 55 ml 55 ml Tube Feeding 660 ml 550 ml Output Urine Total 700 ml 450 ml # Bowel Movements 8 5 Cardiovascular: RSR Respiratory: clear Abdomen: soft, flat, non-tender, present bowel sounds, non-distended Extremities: no tenderness Laboratory Tests Test 11/06/18 03:45 White Blood Count 13.1 K/UL (4.8-10.8) H Red Blood Count 3.63 M/UL (4.70-6.10) L Hemoglobin 10.4 G/DL (14.2-18.0) L Hematocrit 32.1 % (42.0-52.0) L Mean Corpuscular Volume 88 FL (80-99) Mean Corpuscular Hemoglobin 28.6 PG (27.0-31.0) Mean Corpuscular Hemoglobin Concent 32.4 G/DL (32.0-36.0) Red Cell Distribution Width 14.7 % (11.6-14.8) Platelet Count 189 K/UL (150-450) Mean Platelet Volume 6.8 FL (6.5-10.1) Neutrophils (%) (Auto) 73.2 % (45.0-75.0) Lymphocytes (%) (Auto) 17.1 % (20.0-45.0) L Monocytes (%) (Auto) 7.3 % (1.0-10.0) Eosinophils (%) (Auto) 1.3 % (0.0-3.0) Basophils (%) (Auto) 1.1 % (0.0-2.0) Sodium Level 145 MMOL/L (136-145) Potassium Level 4.8 MMOL/L (3.5-5.1) Chloride Level 111 MMOL/L (98-107) H Carbon Dioxide Level 27 MMOL/L (21-32) Anion Gap 7 mmol/L (5-15) Blood Urea Nitrogen 21 mg/dL (7-18) H Creatinine 1.0 MG/DL (0.55-1.30) Estimat Glomerular Filtration Rate > 60 mL/min (>60) Glucose Level 99 MG/DL (74-106) Calcium Level 8.1 MG/DL (8.5-10.1) L Plan Problems: (1) Volvulus Assessment & Plan: This is a 58-year-old male currently admitted for work-up of sepsis who was identified to have a leukocytosis, tachycardia, bacteremia. Patient is currently on IV antibiotics and slowly improving. On recent CT scan he was identified to have a potential volvulus. On examination clinically patient does not seem to have volvulus or bowel obstruction. His abdomen is soft nondistended nontender and with positive bowel sounds. He is tolerating tube feeds through his G-tube and having bowel movements and passing flatus. Swirling of the mesentery noted on CT scan concerning and will follow with serial exams and recommendations. For now okay to continue with tube feeds. Thank you for this consultation Small bowel series noted. No obstruction noted. (2) Fecal impaction Assessment & Plan: IMPRESSION: 1. Dilated fluid and gas-filled small bowel loops with transition point in the right lower quadrant where there is swirling of mesenteric vessels and small bowel, concerning for volvulus causing obstruction. 2. Wall thickening of the rectum may be secondary to fecal material versus proctitis. 3. Obstructing stone measuring 1.2 cm in the proximal right ureter. Moderate to severe right hydronephrosis. Additional stones in the right kidney and right renal pelvis, measuring up to approximately 1.8 cm and the right renal pelvis. 4. Small amount of free fluid in the pelvis. No abscess identified. (3) Sepsis Assessment & Plan: There is an obstructing stone within the ureter which is causing moderate severe hydronephrosis. The urinalysis demonstrated bacteria similar to that of his bacteremia. Potential etiology of sepsis and above is these obstructing stone. Recommend urological evaluation. Thank you (4) Anemia (5) Proctitis (6) Gastrostomy tube dependent (7) Obstructive hydrocephalus (8) COPD (chronic obstructive pulmonary disease) (9) Diabetes mellitus (10) Gram negative septicemia (11) Aphasia (12) Feeding by G-tube (13) Cellulitis of scrotum (14) History of CVA (cerebrovascular accident) (15) Suprapubic catheter dysfunction (16) Encephalopathy chronic (17) GILDARDO (acute kidney injury) (18) UTI (urinary tract infection) (19) Septic shock (20) History of DVT (deep vein thrombosis) (21) Suprapubic catheter (22) ATN (acute tubular necrosis) Russell Lopez Nov 06, 2018 13:59
--- NOTE | 2018-11-06 14:02 | Hematology/Onc Progress Note ---
Assessment/Plan Assessment/Plan # Anemia due to underlying chronic disease, multifactorial --> anemia panel ordered, likely ferritin will be high - reviewed, ferritin at 294 --> hgb trend as 9-->6.7-->10-->11-->10-->10.4 --> monitor for hematuria --> hgb goal >7, transfuse prn --> cysto as needed per urology # Leukocytosis likely due to uti, mdr v gi process --> monitor for improvement --> now has been started on linezolid/cefepime --> id and cards recs reviewed --> ct with potential volvulus v proctitis, have consulted gi --> wbc trend 22-->16-->14-->13.1 # Septic Shock s/p and dehydration, lactic acidosis 2.4. Off levophed and on IV antibiotics --> per id MRSA/ P. Mirabilis bacteremia may need to r/o endocarditis --> on abx as per id recs # Sinus tachycardia 140s likely due to sepsis with fever, HR better --> monitor closely for improvement with cards # Hypernatremia --> trend na with renal # Renal failure # CVA with paraplegia Appreciate consultation greatly. Subjective Genitourinary: Reports: hematuria Hematologic/Lymphatic: Reports: anemia Allergies: Coded Allergies: VANCOMYCIN (Verified Allergy, Mild, Redness , 10/29/18) CIPROFLOXACIN (Verified Allergy, Unknown, 08/23/15) All Systems: reviewed and negative except above Subjective 10/31: dc to med surg from icu, doing better 11/01: given 500cc ns for low bp, pcp was made aware as well as cards 11/02: on zyvox and cefepime, no fc, no bleeding, on feedings 11/03: on abx still, seen by id, and cards, r/o bacteremia induced by valve abnml 11/04: iv is on the right foot, pending potentially picc 11/05: labs have been reviewed, no f/c, no night sweats, seen by uro last night 11/06: anemia w/u reviewed, ferritin at 294, h/h stable, olga lidia postponed Objective Objective Current Medications Medications (Trade) Dose Ordered Sig/Fab Route PRN Reason Start Time Stop Time Status Last Admin Dose Admin Acetaminophen (Tylenol) 650 mg Q4H PRN GT fever (temp>100.5 F) 11/05/18 10:30 11/28/18 17:29 Cefepime HCl 2 gm/ Dextrose 55 ml @ 110 mls/hr EVERY 8 HOURS IVPB 11/02/18 13:00 11/09/18 12:59 11/06/18 13:49 Chlorhexidine Gluconate (Licha-Hex 2%) 1 applic DAILY@2000 TOPIC 11/01/18 20:00 11/29/18 19:59 11/05/18 20:38 Diphenhydramine HCl (Benadryl) 25 mg Q6H PRN IVP Itching 11/01/18 11:30 11/28/18 17:29 11/02/18 03:47 Docusate Sodium (Colace) 100 mg THREE TIMES A DAY GT 11/01/18 18:00 12/01/18 17:59 Famotidine (Pepcid) 20 mg Q12HR GT 11/05/18 21:00 11/29/18 20:59 11/06/18 10:27 Heparin Sodium (Porcine) (Heparin 5000 units/ml) 5,000 units EVERY 12 HOURS SUBQ 11/01/18 21:00 11/28/18 08:59 11/06/18 10:30 Linezolid (Zyvox) 600 mg EVERY 12 HOURS GT 11/01/18 21:00 11/10/18 20:59 11/06/18 10:27 Midodrine (Pro-Amatine) 10 mg THREE TIMES A DAY GT 11/04/18 13:00 11/29/18 12:59 Ondansetron HCl (Zofran) 4 mg Q6H PRN IVP Nausea & Vomiting 11/01/18 11:30 11/28/18 17:29 Polyethylene Glycol (Miralax) 17 gm DAILYPRN PRN GT Constipation 11/05/18 10:30 11/30/18 17:29 Last 24 Hour Vital Signs Date Time Temp Pulse Resp B/P (MAP) Pulse Ox O2 Delivery O2 Flow Rate FiO2 11/06/18 12:02 Nasal Cannula 2.0 11/06/18 12:00 111 11/06/18 11:50 98.2 87 20 126/84 (98) 97 11/06/18 08:00 98.2 97 20 120/77 (91) 97 11/06/18 08:00 Nasal Cannula 2.0 11/06/18 07:44 84 11/06/18 07:11 97 18 95 Room Air 21 11/06/18 04:00 Nasal Cannula 2.0 11/06/18 04:00 97.9 98 22 130/85 (100) 96 11/06/18 03:53 99 11/06/18 00:00 99.5 98 24 129/88 (102) 98 11/06/18 00:00 Nasal Cannula 2.0 11/05/18 23:25 100 11/05/18 20:28 101 18 96 Room Air 21 11/05/18 20:00 Nasal Cannula 2.0 11/05/18 20:00 99.5 101 24 128/87 (101) 100 11/05/18 19:37 120 11/05/18 16:45 89 11/05/18 16:00 98.4 98 20 135/98 (110) 96 11/05/18 16:00 Nasal Cannula 2.0 11/05/18 12:00 Nasal Cannula 2.0 11/05/18 12:00 98.1 97 18 108/74 (85) 95 11/05/18 12:00 97 11/05/18 08:00 Nasal Cannula 2.0 11/05/18 08:00 100 11/05/18 08:00 98.1 98 18 135/95 (108) 97 11/05/18 07:00 98 18 96 Room Air 21 11/05/18 04:00 98.2 98 20 123/86 (98) 98 11/05/18 04:00 Nasal Cannula 2.0 11/05/18 03:23 94 11/05/18 00:00 98.2 101 20 106/76 (86) 98 11/04/18 23:22 Nasal Cannula 2.0 11/04/18 23:22 102 11/04/18 21:41 100 20 94 Room Air 21 11/04/18 20:27 98.1 11/04/18 20:00 101.0 124 24 127/90 (102) 95 11/04/18 19:42 101 11/04/18 19:00 Nasal Cannula 2.0 11/04/18 18:12 119 11/04/18 16:00 98.8 98 21 126/92 (103) 94 11/04/18 16:00 Nasal Cannula 2.0 Intake and Output 11/05/18 11/06/18 19:00 07:00 Intake Total 1015 ml 705 ml Output Total 700 ml 450 ml Balance 315 ml 255 ml Intake Free Water 300 ml 100 ml IV Total 55 ml 55 ml Tube Feeding 660 ml 550 ml Output Urine Total 700 ml 450 ml # Bowel Movements 8 5 Labs Test 11/04/18 04:00 11/04/18 20:00 11/05/18 03:20 11/05/18 03:30 White Blood Count 15.8 K/UL (4.8-10.8) 13.8 K/UL (4.8-10.8) Red Blood Count 3.80 M/UL (4.70-6.10) 3.60 M/UL (4.70-6.10) Hemoglobin 10.7 G/DL (14.2-18.0) 10.3 G/DL (14.2-18.0) Hematocrit 33.1 % (42.0-52.0) 31.5 % (42.0-52.0) Mean Corpuscular Volume 87 FL (80-99) 88 FL (80-99) Mean Corpuscular Hemoglobin 28.1 PG (27.0-31.0) 28.7 PG (27.0-31.0) Mean Corpuscular Hemoglobin Concent 32.3 G/DL (32.0-36.0) 32.8 G/DL (32.0-36.0) Red Cell Distribution Width 14.3 % (11.6-14.8) 14.6 % (11.6-14.8) Platelet Count 166 K/UL (150-450) 190 K/UL (150-450) Mean Platelet Volume 7.6 FL (6.5-10.1) 7.5 FL (6.5-10.1) Neutrophils (%) (Auto) 75.3 % (45.0-75.0) 77.4 % (45.0-75.0) Lymphocytes (%) (Auto) 15.0 % (20.0-45.0) 15.1 % (20.0-45.0) Monocytes (%) (Auto) 7.8 % (1.0-10.0) 5.1 % (1.0-10.0) Eosinophils (%) (Auto) 1.2 % (0.0-3.0) 1.0 % (0.0-3.0) Basophils (%) (Auto) 0.7 % (0.0-2.0) 1.4 % (0.0-2.0) Erythrocyte Sedimentation Rate 96 MM/HR (0-20) Sodium Level 145 MMOL/L (136-145) 147 MMOL/L (136-145) Potassium Level 3.6 MMOL/L (3.5-5.1) 3.9 MMOL/L (3.5-5.1) Chloride Level 112 MMOL/L (98-107) 114 MMOL/L (98-107) Carbon Dioxide Level 28 MMOL/L (21-32) 28 MMOL/L (21-32) Anion Gap 5 mmol/L (5-15) 5 mmol/L (5-15) Blood Urea Nitrogen 24 mg/dL (7-18) 21 mg/dL (7-18) Creatinine 1.0 MG/DL (0.55-1.30) 1.1 MG/DL (0.55-1.30) Estimat Glomerular Filtration Rate > 60 mL/min (>60) > 60 mL/min (>60) Glucose Level 106 MG/DL (74-106) 113 MG/DL (74-106) Calcium Level 7.3 MG/DL (8.5-10.1) 7.6 MG/DL (8.5-10.1) Phosphorus Level 2.4 MG/DL (2.5-4.9) 3.2 MG/DL (2.5-4.9) Magnesium Level 2.3 MG/DL (1.8-2.4) 2.3 MG/DL (1.8-2.4) Total Bilirubin 0.4 MG/DL (0.2-1.0) Aspartate Amino Transf (AST/SGOT) 17 U/L (15-37) Alanine Aminotransferase (ALT/SGPT) 7 U/L (12-78) Alkaline Phosphatase 78 U/L (46-116) C-Reactive Protein, Quantitative 16.9 mg/dL (0.00-0.90) Total Protein 7.1 G/DL (6.4-8.2) Albumin 1.7 G/DL (3.4-5.0) Globulin 5.4 g/dL Albumin/Globulin Ratio 0.3 (1.0-2.7) Stool Occult Blood Negative (NEGATIVE) Iron Level 17 ug/dL (50-175) Total Iron Binding Capacity 140 ug/dL (250-450) Percent Iron Saturation 12 % (15-50) Unsaturated Iron Binding 123 ug/dL (112-346) Ferritin 294 NG/ML (8-388) Test 11/06/18 03:45 White Blood Count 13.1 K/UL (4.8-10.8) Red Blood Count 3.63 M/UL (4.70-6.10) Hemoglobin 10.4 G/DL (14.2-18.0) Hematocrit 32.1 % (42.0-52.0) Mean Corpuscular Volume 88 FL (80-99) Mean Corpuscular Hemoglobin 28.6 PG (27.0-31.0) Mean Corpuscular Hemoglobin Concent 32.4 G/DL (32.0-36.0) Red Cell Distribution Width 14.7 % (11.6-14.8) Platelet Count 189 K/UL (150-450) Mean Platelet Volume 6.8 FL (6.5-10.1) Neutrophils (%) (Auto) 73.2 % (45.0-75.0) Lymphocytes (%) (Auto) 17.1 % (20.0-45.0) Monocytes (%) (Auto) 7.3 % (1.0-10.0) Eosinophils (%) (Auto) 1.3 % (0.0-3.0) Basophils (%) (Auto) 1.1 % (0.0-2.0) Sodium Level 145 MMOL/L (136-145) Potassium Level 4.8 MMOL/L (3.5-5.1) Chloride Level 111 MMOL/L (98-107) Carbon Dioxide Level 27 MMOL/L (21-32) Anion Gap 7 mmol/L (5-15) Blood Urea Nitrogen 21 mg/dL (7-18) Creatinine 1.0 MG/DL (0.55-1.30) Estimat Glomerular Filtration Rate > 60 mL/min (>60) Glucose Level 99 MG/DL (74-106) Calcium Level 8.1 MG/DL (8.5-10.1) Height (Feet): 5 Height (Inches): 8.00 Weight (Pounds): 244 Objective Physical Exam General Appearance: A+O x1, NAD HEENT: normocephalic, atraumatic Neck: non-tender, normal alignment Respiratory/Chest: chest wall non-tender, lungs clear Cardiovascular/Chest: normal peripheral pulses, normal rate Abdomen: normal bowel sounds, non tender ++ peg ++ suprapubic catheter Extremities: normal range of motion Nathan Ludwig MD Nov 06, 2018 14:02
--- NOTE | 2018-11-06 15:32 | NUR ---
NURSE NOTES:WOUND CARE FOLLOW-UP NOTES: Open blister secondary to adhesive denudement noted in close proximity to GT site. base of wound moist and viable. Open blister secondary to adhesive denudement noted in close proximity to suprapubic cath. Buttocks and heels are pink and blanchable .No other skin concerns noted. Recommendations: Cleanse blisters abd with saline. Apply Silvasorb gel. Cover with Optifoam drsg. Change every 7 days and prn. Apply Moisture Barrier to sacrum. Cover with Optifoam drsg. Change every 3 days and prn. Reposition at least every 2hours or as tolerated. Off-load heels with pillow.
[2018-11-06 16:00] VITALS: BP 128/84
--- NOTE | 2018-11-06 16:22 | Cardiac Electrophysiology PN ---
Assessment/Plan Assessment/Plan 1. S/P Septic Shock and dehydration Lactic acidosis 2.4. Off Levophed and on antibiotics Echo Nl EF. WBC down from 21K to 15k MRSA and enterococcus bacteremia. Awaiting TASNEEM 2. Sinus tach 140s likely due to sepsis with fever. HR better 3. Inferior wall myocardial infarction based on electrocardiogram. Ruled out for myocardial infarction. EF 65% 4. Hypernatremia. 5. Renal failure. 6. CVA with paraplegia. 7. Status post suprapubic catheter. COLLETTE RN Subjective Subjective In SDU. No events. Now has MRSA and enterococcus bacteremia. TASNEEM pending Objective Last 24 Hour Vital Signs Date Time Temp Pulse Resp B/P (MAP) Pulse Ox O2 Delivery O2 Flow Rate FiO2 11/06/18 12:02 Nasal Cannula 2.0 11/06/18 12:00 111 11/06/18 11:50 98.2 87 20 126/84 (98) 97 11/06/18 08:00 98.2 97 20 120/77 (91) 97 11/06/18 08:00 Nasal Cannula 2.0 11/06/18 07:44 84 11/06/18 07:11 97 18 95 Room Air 21 11/06/18 04:00 Nasal Cannula 2.0 11/06/18 04:00 97.9 98 22 130/85 (100) 96 11/06/18 03:53 99 11/06/18 00:00 99.5 98 24 129/88 (102) 98 11/06/18 00:00 Nasal Cannula 2.0 11/05/18 23:25 100 11/05/18 20:28 101 18 96 Room Air 21 11/05/18 20:00 Nasal Cannula 2.0 11/05/18 20:00 99.5 101 24 128/87 (101) 100 11/05/18 19:37 120 11/05/18 16:45 89 Intake and Output 11/05/18 11/06/18 19:00 07:00 Intake Total 1015 ml 705 ml Output Total 700 ml 450 ml Balance 315 ml 255 ml Intake Free Water 300 ml 100 ml IV Total 55 ml 55 ml Tube Feeding 660 ml 550 ml Output Urine Total 700 ml 450 ml # Bowel Movements 8 5 Laboratory Tests Test 11/06/18 03:45 White Blood Count 13.1 K/UL (4.8-10.8) H Red Blood Count 3.63 M/UL (4.70-6.10) L Hemoglobin 10.4 G/DL (14.2-18.0) L Hematocrit 32.1 % (42.0-52.0) L Mean Corpuscular Volume 88 FL (80-99) Mean Corpuscular Hemoglobin 28.6 PG (27.0-31.0) Mean Corpuscular Hemoglobin Concent 32.4 G/DL (32.0-36.0) Red Cell Distribution Width 14.7 % (11.6-14.8) Platelet Count 189 K/UL (150-450) Mean Platelet Volume 6.8 FL (6.5-10.1) Neutrophils (%) (Auto) 73.2 % (45.0-75.0) Lymphocytes (%) (Auto) 17.1 % (20.0-45.0) L Monocytes (%) (Auto) 7.3 % (1.0-10.0) Eosinophils (%) (Auto) 1.3 % (0.0-3.0) Basophils (%) (Auto) 1.1 % (0.0-2.0) Sodium Level 145 MMOL/L (136-145) Potassium Level 4.8 MMOL/L (3.5-5.1) Chloride Level 111 MMOL/L (98-107) H Carbon Dioxide Level 27 MMOL/L (21-32) Anion Gap 7 mmol/L (5-15) Blood Urea Nitrogen 21 mg/dL (7-18) H Creatinine 1.0 MG/DL (0.55-1.30) Estimat Glomerular Filtration Rate > 60 mL/min (>60) Glucose Level 99 MG/DL (74-106) Calcium Level 8.1 MG/DL (8.5-10.1) L Objective HEAD AND NECK: No JVD. LUNGS: Coarse rhonchi. CARDIOVASCULAR: Tachy S1, S2 with no gallop. ABDOMEN: Soft, status post suprapubic catheter. EXTREMITIES: Paraplegic with edema Darnell Segundo MD Nov 06, 2018 16:22
--- NOTE | 2018-11-06 17:00 | NUR ---
NURSE NOTES: Pt stable no distress presented,turned and repositioned.
--- NOTE | 2018-11-06 19:00 | NUR ---
HAND-OFF: Report given to Amanda Azul RN.
--- NOTE | 2018-11-06 19:16 | NUR ---
NURSE NOTES: Received patient from Clover Jamil RN. Patient is awake and oriented x1. Receiving oxygen via room air, patient tolerating well, showing no signs of respiratory distress. G-tube is patent and receiving Glucerna 1.5 @55cc/hr. Patient has a suprapubic catheter patent. IV site is Right Foot 22g and Right hand 24g both patent and asymptomatic. Bed is locked, placed in lowest position, side rails up x3, bed alarm on. Will continue to monitor.
[2018-11-06 20:00] VITALS: BP 131/83
[2018-11-06] MEDS: Dyna-Hex 2% Top Sol 2oz TOPIC SCH (20:00)
[2018-11-07] VITALS: BP 112/66
[2018-11-07 04:00] VITALS: BP 118/76
[2018-11-07 05:34] LABS: EOSINOPHILS % (AUTO) 1.1 % (0.0-3.0); HEMATOCRIT 32.2 % (42.0-52.0); HEMOGLOBIN 10.4 G/DL (14.2-18.0); MEAN CORPUSCULAR VOLUME 89 FL (80-99); PLATELET COUNT 190 K/UL (150-450); RED BLOOD COUNT 3.61 M/UL (4.70-6.10); RED CELL DISTRIBUTION WIDTH 14.6 % (11.6-14.8); WHITE BLOOD COUNT 12.6 K/UL (4.8-10.8)
[2018-11-07] MEDS: Cefepime HCl 2 GM in D5W 55 ML IVPB SCH ×3 (05:41→21:23)
[2018-11-07 05:45] LABS: ANION GAP 8 mmol/L (5-15); BLOOD UREA NITROGEN 24 mg/dL (7-18); CALCIUM 7.3 MG/DL (8.5-10.1); CARBON DIOXIDE 24 MMOL/L (21-32); CHLORIDE 112 MMOL/L (98-107); CREATININE 1.1 MG/DL (0.55-1.30); SODIUM 144 MMOL/L (136-145)
--- NOTE | 2018-11-07 07:10 | NUR ---
NURSE NOTES: Received pt from CANDI Iniguez. Pt is asleep, able to arouse by voice and touch. Speech is garbled and delayed; able to say yes or no. PEG is NPO since midnight for TASNEEM scheduled for today. GT site dressing clean and intact, no oozing noted. abdomen is round and non-tender. Suprapubic catheter draining well to gravity. Adhesive gum noted around the OS to prevent leaking; minimal leaking noted. RFA 22G TKO, asymptomatic. Bed locked, alarmed and in lowest position. Will continue plan of care.
--- NOTE | 2018-11-07 07:30 | NUR ---
HAND-OFF: Report given to Betina CHRISTOPHER. Patient in stable condition.
[2018-11-07 08:00] VITALS: BP 131/68
[2018-11-07] MEDS: Midodrine 10mg tab GT SCH ×3 (09:00→17:34)
[2018-11-07] MEDS: Docusate 100mg/10ml Liq GT SCH ×3 (09:00→17:34)
[2018-11-07] MEDS: Heparin 5000 units/ml inj SUBQ SCH ×2 (09:12→20:47)
--- NOTE | 2018-11-07 09:44 | Hematology/Onc Progress Note ---
Assessment/Plan Assessment/Plan # Anemia due to underlying chronic disease, multifactorial --> anemia panel ordered, likely ferritin will be high - reviewed, ferritin at 294 --> hgb trend as 9-->6.7-->10-->11-->10-->10.4 --> monitor for hematuria --> hgb goal >7, transfuse prn --> cysto as needed per urology # Leukocytosis likely due to uti, mdr v gi process --> monitor for improvement --> now has been started on linezolid/cefepime --> id and cards recs reviewed --> ct with potential volvulus v proctitis, have consulted gi --> wbc trend 22-->16-->14-->13.1-->12.6 # Septic Shock s/p and dehydration, lactic acidosis 2.4. Off levophed and on IV antibiotics --> per id MRSA/ P. Mirabilis bacteremia may need to r/o endocarditis --> on abx as per id recs # Sinus tachycardia 140s likely due to sepsis with fever, HR better --> monitor closely for improvement with cards # Hypernatremia --> trend na with renal # Renal failure --> renal recs # CVA with paraplegia Appreciate consultation greatly. Subjective Constitutional: Denies: no symptoms, chills, fever, malaise, weakness, other HEENT: Denies: no symptoms, eye pain, blurred vision, tearing, double vision, ear pain, ear discharge, nose pain, nose congestion, throat pain, throat swelling, mouth pain, mouth swelling, other Cardiovascular: Denies: no symptoms, chest pain, edema, irregular heart rate, lightheadedness, palpitations, syncope, other Respiratory: Denies: no symptoms, cough, shortness of breath, SOB with excertion, SOB at rest, sputum, wheezing, other Gastrointestinal/Abdominal: Denies: no symptoms, abdomen distended, abdominal pain, black stools, tarry stools, blood in stool, constipated, diarrhea, difficulty swallowing, nausea, poor appetite, poor fluid intake, rectal bleeding , vomiting, other Genitourinary: Denies: no symptoms, burning, discharge, frequency, flank pain, hematuria, incontinence, pain, urgency, other Endocrine: Denies: no symptoms, excessive sweating, flushing, intolerance to cold, intolerance to heat, increased hunger, increased thirst, increased urine, unexplained weight gain, unexplained weight loss, other Hematologic/Lymphatic: Denies: no symptoms, anemia, easy bleeding, easy bruising, adenopathy, other Allergies: Coded Allergies: VANCOMYCIN (Verified Allergy, Mild, Redness , 10/29/18) CIPROFLOXACIN (Verified Allergy, Unknown, 08/23/15) Subjective 10/31: dc to med surg from icu, doing better 11/01: given 500cc ns for low bp, pcp was made aware as well as cards 11/02: on zyvox and cefepime, no fc, no bleeding, on feedings 11/03: on abx still, seen by id, and cards, r/o bacteremia induced by valve abnml 11/04: iv is on the right foot, pending potentially picc 11/05: labs have been reviewed, no f/c, no night sweats, seen by uro last night 11/06: anemia w/u reviewed, ferritin at 294, h/h stable, olga lidia postponed 11/07: no events noted, no f/c, on gtube feeds, no bleeding Objective Objective Current Medications Medications (Trade) Dose Ordered Sig/Fab Route PRN Reason Start Time Stop Time Status Last Admin Dose Admin Acetaminophen (Tylenol) 650 mg Q4H PRN GT fever (temp>100.5 F) 11/05/18 10:30 11/28/18 17:29 Cefepime HCl 2 gm/ Dextrose 55 ml @ 110 mls/hr EVERY 8 HOURS IVPB 11/02/18 13:00 11/09/18 12:59 11/07/18 05:41 Chlorhexidine Gluconate (Licha-Hex 2%) 1 applic DAILY@1999 TOPIC 11/01/18 20:00 11/29/18 19:59 11/05/18 20:38 Diphenhydramine HCl (Benadryl) 25 mg Q6H PRN IVP Itching 11/01/18 11:30 11/28/18 17:29 11/02/18 03:47 Docusate Sodium (Colace) 100 mg THREE TIMES A DAY GT 11/01/18 18:00 12/01/18 17:59 11/07/18 09:00 Famotidine (Pepcid) 20 mg Q12HR GT 11/05/18 21:00 11/29/18 20:59 11/07/18 09:00 Heparin Sodium (Porcine) (Heparin 5000 units/ml) 5,000 units EVERY 12 HOURS SUBQ 11/01/18 21:00 11/28/18 08:59 11/07/18 09:12 Linezolid (Zyvox) 600 mg EVERY 12 HOURS GT 11/01/18 21:00 11/10/18 20:59 11/07/18 09:00 Midodrine (Pro-Amatine) 10 mg THREE TIMES A DAY GT 11/04/18 13:00 11/29/18 12:59 Ondansetron HCl (Zofran) 4 mg Q6H PRN IVP Nausea & Vomiting 11/01/18 11:30 11/28/18 17:29 Polyethylene Glycol (Miralax) 17 gm DAILYPRN PRN GT Constipation 11/05/18 10:30 11/30/18 17:29 Last 24 Hour Vital Signs Date Time Temp Pulse Resp B/P (MAP) Pulse Ox O2 Delivery O2 Flow Rate FiO2 11/07/18 08:00 97.7 87 20 131/68 (89) 99 11/07/18 08:00 Room Air 11/07/18 04:00 Nasal Cannula 2.0 11/07/18 04:00 99.1 95 20 118/76 (90) 99 11/07/18 03:25 73 11/07/18 00:00 Nasal Cannula 2.0 11/07/18 00:00 99.3 91 20 112/66 (81) 96 11/06/18 23:27 93 11/06/18 20:00 Nasal Cannula 2.0 11/06/18 20:00 99.8 91 20 131/83 (99) 95 11/06/18 19:01 95 11/06/18 16:00 98.8 92 20 128/84 (99) 97 11/06/18 16:00 Nasal Cannula 2.0 11/06/18 16:00 87 11/06/18 12:02 Nasal Cannula 2.0 11/06/18 12:00 111 11/06/18 11:50 98.2 87 20 126/84 (98) 97 11/06/18 08:00 98.2 97 20 120/77 (91) 97 11/06/18 08:00 Nasal Cannula 2.0 11/06/18 07:44 84 11/06/18 07:11 97 18 95 Room Air 21 11/06/18 04:00 Nasal Cannula 2.0 11/06/18 04:00 97.9 98 22 130/85 (100) 96 11/06/18 03:53 99 11/06/18 00:00 99.5 98 24 129/88 (102) 98 11/06/18 00:00 Nasal Cannula 2.0 11/05/18 23:25 100 11/05/18 20:28 101 18 96 Room Air 21 11/05/18 20:00 Nasal Cannula 2.0 11/05/18 20:00 99.5 101 24 128/87 (101) 100 11/05/18 19:37 120 11/05/18 16:45 89 11/05/18 16:00 98.4 98 20 135/98 (110) 96 11/05/18 16:00 Nasal Cannula 2.0 11/05/18 12:00 Nasal Cannula 2.0 11/05/18 12:00 98.1 97 18 108/74 (85) 95 11/05/18 12:00 97 Intake and Output 11/06/18 11/07/18 19:00 07:00 Intake Total 775 ml 275 ml Output Total 901 ml 700 ml Balance -126 ml -425 ml Intake Free Water 100 ml IV Total 55 ml Tube Feeding 495 ml 220 ml Other 180 ml Output Urine Total 900 ml 700 ml Stool Total 1 ml # Bowel Movements 1 4 Labs Test 11/04/18 20:00 11/05/18 03:20 11/05/18 03:30 11/06/18 03:45 Stool Occult Blood Negative (NEGATIVE) White Blood Count 13.8 K/UL (4.8-10.8) 13.1 K/UL (4.8-10.8) Red Blood Count 3.60 M/UL (4.70-6.10) 3.63 M/UL (4.70-6.10) Hemoglobin 10.3 G/DL (14.2-18.0) 10.4 G/DL (14.2-18.0) Hematocrit 31.5 % (42.0-52.0) 32.1 % (42.0-52.0) Mean Corpuscular Volume 88 FL (80-99) 88 FL (80-99) Mean Corpuscular Hemoglobin 28.7 PG (27.0-31.0) 28.6 PG (27.0-31.0) Mean Corpuscular Hemoglobin Concent 32.8 G/DL (32.0-36.0) 32.4 G/DL (32.0-36.0) Red Cell Distribution Width 14.6 % (11.6-14.8) 14.7 % (11.6-14.8) Platelet Count 190 K/UL (150-450) 189 K/UL (150-450) Mean Platelet Volume 7.5 FL (6.5-10.1) 6.8 FL (6.5-10.1) Neutrophils (%) (Auto) 77.4 % (45.0-75.0) 73.2 % (45.0-75.0) Lymphocytes (%) (Auto) 15.1 % (20.0-45.0) 17.1 % (20.0-45.0) Monocytes (%) (Auto) 5.1 % (1.0-10.0) 7.3 % (1.0-10.0) Eosinophils (%) (Auto) 1.0 % (0.0-3.0) 1.3 % (0.0-3.0) Basophils (%) (Auto) 1.4 % (0.0-2.0) 1.1 % (0.0-2.0) Sodium Level 147 MMOL/L (136-145) 145 MMOL/L (136-145) Potassium Level 3.9 MMOL/L (3.5-5.1) 4.8 MMOL/L (3.5-5.1) Chloride Level 114 MMOL/L (98-107) 111 MMOL/L (98-107) Carbon Dioxide Level 28 MMOL/L (21-32) 27 MMOL/L (21-32) Anion Gap 5 mmol/L (5-15) 7 mmol/L (5-15) Blood Urea Nitrogen 21 mg/dL (7-18) 21 mg/dL (7-18) Creatinine 1.1 MG/DL (0.55-1.30) 1.0 MG/DL (0.55-1.30) Estimat Glomerular Filtration Rate > 60 mL/min (>60) > 60 mL/min (>60) Glucose Level 113 MG/DL (74-106) 99 MG/DL (74-106) Calcium Level 7.6 MG/DL (8.5-10.1) 8.1 MG/DL (8.5-10.1) Phosphorus Level 3.2 MG/DL (2.5-4.9) Magnesium Level 2.3 MG/DL (1.8-2.4) Iron Level 17 ug/dL (50-175) Total Iron Binding Capacity 140 ug/dL (250-450) Percent Iron Saturation 12 % (15-50) Unsaturated Iron Binding 123 ug/dL (112-346) Ferritin 294 NG/ML (8-388) Test 11/07/18 03:35 White Blood Count 12.6 K/UL (4.8-10.8) Red Blood Count 3.61 M/UL (4.70-6.10) Hemoglobin 10.4 G/DL (14.2-18.0) Hematocrit 32.2 % (42.0-52.0) Mean Corpuscular Volume 89 FL (80-99) Mean Corpuscular Hemoglobin 28.7 PG (27.0-31.0) Mean Corpuscular Hemoglobin Concent 32.2 G/DL (32.0-36.0) Red Cell Distribution Width 14.6 % (11.6-14.8) Platelet Count 190 K/UL (150-450) Mean Platelet Volume 6.5 FL (6.5-10.1) Neutrophils (%) (Auto) 80.0 % (45.0-75.0) Lymphocytes (%) (Auto) 7.0 % (20.0-45.0) Monocytes (%) (Auto) 7.0 % (1.0-10.0) Eosinophils (%) (Auto) 1.1 % (0.0-3.0) Basophils (%) (Auto) 5.0 % (0.0-2.0) Sodium Level 144 MMOL/L (136-145) Potassium Level 4.0 MMOL/L (3.5-5.1) Chloride Level 112 MMOL/L (98-107) Carbon Dioxide Level 24 MMOL/L (21-32) Anion Gap 8 mmol/L (5-15) Blood Urea Nitrogen 24 mg/dL (7-18) Creatinine 1.1 MG/DL (0.55-1.30) Estimat Glomerular Filtration Rate > 60 mL/min (>60) Glucose Level 82 MG/DL (74-106) Calcium Level 7.3 MG/DL (8.5-10.1) Height (Feet): 5 Height (Inches): 8.00 Weight (Pounds): 242 Objective Physical Exam General Appearance: A+O x1, NAD HEENT: normocephalic, atraumatic Neck: non-tender, normal alignment Respiratory/Chest: chest wall non-tender, lungs clear Cardiovascular/Chest: normal peripheral pulses, normal rate Abdomen: normal bowel sounds, non tender ++ peg ++ suprapubic catheter Extremities: normal range of motion Nathan Ludwig MD Nov 07, 2018 09:44
--- NOTE | 2018-11-07 09:47 | Nephrology Progress Note ---
Assessment/Plan Problem List: (1) GILDARDO (acute kidney injury) (2) Septic shock (3) Suprapubic catheter (4) History of CVA (cerebrovascular accident) Assessment Acute renal failure- resolved Septic shock on presentation CVA Suprapubic cath / ? Neurogenic bladder HTN DVT UTI Plan K Phos IV stop Hydrate midodrine avoid nephrotoxics monitor renal parameters med surg? per orders Subjective ROS Limited/Unobtainable: No Objective Objective Last 24 Hour Vital Signs Date Time Temp Pulse Resp B/P (MAP) Pulse Ox O2 Delivery O2 Flow Rate FiO2 11/07/18 08:00 97.7 87 20 131/68 (89) 99 11/07/18 08:00 Room Air 11/07/18 04:00 Nasal Cannula 2.0 11/07/18 04:00 99.1 95 20 118/76 (90) 99 11/07/18 03:25 73 11/07/18 00:00 Nasal Cannula 2.0 11/07/18 00:00 99.3 91 20 112/66 (81) 96 11/06/18 23:27 93 11/06/18 20:00 Nasal Cannula 2.0 11/06/18 20:00 99.8 91 20 131/83 (99) 95 11/06/18 19:01 95 11/06/18 16:00 98.8 92 20 128/84 (99) 97 11/06/18 16:00 Nasal Cannula 2.0 11/06/18 16:00 87 11/06/18 12:02 Nasal Cannula 2.0 11/06/18 12:00 111 11/06/18 11:50 98.2 87 20 126/84 (98) 97 Intake and Output 11/06/18 11/07/18 19:00 07:00 Intake Total 775 ml 275 ml Output Total 901 ml 700 ml Balance -126 ml -425 ml Intake Free Water 100 ml IV Total 55 ml Tube Feeding 495 ml 220 ml Other 180 ml Output Urine Total 900 ml 700 ml Stool Total 1 ml # Bowel Movements 1 4 Laboratory Tests 11/07/18 03:35: White Blood Count 12.6H, Red Blood Count 3.61L, Hemoglobin 10.4L, Hematocrit 32.2L, Mean Corpuscular Volume 89, Mean Corpuscular Hemoglobin 28.7, Mean Corpuscular Hemoglobin Concent 32.2, Red Cell Distribution Width 14.6, Platelet Count 190, Mean Platelet Volume 6.5, Neutrophils (%) (Auto) 80.0H, Lymphocytes ( %) (Auto) 7.0L, Monocytes (%) (Auto) 7.0, Eosinophils (%) (Auto) 1.1, Basophils (%) (Auto) 5.0H, Sodium Level 144, Potassium Level 4.0, Chloride Level 112H, Carbon Dioxide Level 24, Anion Gap 8, Blood Urea Nitrogen 24H, Creatinine 1.1, Estimat Glomerular Filtration Rate > 60, Glucose Level 82, Calcium Level 7.3L Height (Feet): 5 Height (Inches): 8.00 Weight (Pounds): 242 General Appearance: no apparent distress Objective no change Pranav Grady MD Nov 07, 2018 09:47
--- NOTE | 2018-11-07 10:19 | NUR ---
NURSE NOTES: Tang Nick, cardiology dept, unable to find a physician to perform TASNEEM today, rescheduled for tomorrow.
--- NOTE | 2018-11-07 10:20 | GI Progress Note ---
Assessment/Plan Problems: (1) Aphasia ICD Codes: R47.01 - Aphasia SNOMED: 57134104 (2) Anemia ICD Codes: D64.9 - Anemia, unspecified SNOMED: 406202676 (3) Fecal impaction ICD Codes: K56.41 - Fecal impaction SNOMED: 29168885 (4) Proctitis ICD Codes: K62.89 - Other specified diseases of anus and rectum SNOMED: 2240626 (5) Volvulus ICD Codes: K56.2 - Volvulus SNOMED: 0509116 Status: unchanged Status Narrative Discussed with Dr. Faust. Assessment/Plan SBFT negative OB stool negative Patient may benefit from colonoscopy to evaluate proctitis, can be done as outpatient. Anemia work-up reviewed Prevacid Monitor H&H, PRN transfusions Bowel regimen turn q2 hours Follow-up labs The patient was seen and examined at bedside and all new and available data was reviewed in the patients chart. I agree with the above findings, impression and plan. (Patient seen earlier today. Signature stamp does not reflect patient encounter time.). - Deep Faust MD Subjective Gastrointestinal/Abdominal: Reports: no symptoms Objective Last 24 Hour Vital Signs Date Time Temp Pulse Resp B/P (MAP) Pulse Ox O2 Delivery O2 Flow Rate FiO2 11/07/18 08:00 76 11/07/18 08:00 97.7 87 20 131/68 (89) 99 11/07/18 08:00 Room Air 11/07/18 04:00 Nasal Cannula 2.0 11/07/18 04:00 99.1 95 20 118/76 (90) 99 11/07/18 03:25 73 11/07/18 00:00 Nasal Cannula 2.0 11/07/18 00:00 99.3 91 20 112/66 (81) 96 11/06/18 23:27 93 11/06/18 20:00 Nasal Cannula 2.0 11/06/18 20:00 99.8 91 20 131/83 (99) 95 11/06/18 19:01 95 11/06/18 16:00 98.8 92 20 128/84 (99) 97 11/06/18 16:00 Nasal Cannula 2.0 11/06/18 16:00 87 11/06/18 12:02 Nasal Cannula 2.0 11/06/18 12:00 111 11/06/18 11:50 98.2 87 20 126/84 (98) 97 Intake and Output 11/06/18 11/07/18 19:00 07:00 Intake Total 775 ml 275 ml Output Total 901 ml 700 ml Balance -126 ml -425 ml Intake Free Water 100 ml IV Total 55 ml Tube Feeding 495 ml 220 ml Other 180 ml Output Urine Total 900 ml 700 ml Stool Total 1 ml # Bowel Movements 1 4 Laboratory Tests Test 11/07/18 03:35 White Blood Count 12.6 K/UL (4.8-10.8) H Red Blood Count 3.61 M/UL (4.70-6.10) L Hemoglobin 10.4 G/DL (14.2-18.0) L Hematocrit 32.2 % (42.0-52.0) L Mean Corpuscular Volume 89 FL (80-99) Mean Corpuscular Hemoglobin 28.7 PG (27.0-31.0) Mean Corpuscular Hemoglobin Concent 32.2 G/DL (32.0-36.0) Red Cell Distribution Width 14.6 % (11.6-14.8) Platelet Count 190 K/UL (150-450) Mean Platelet Volume 6.5 FL (6.5-10.1) Neutrophils (%) (Auto) 80.0 % (45.0-75.0) H Lymphocytes (%) (Auto) 7.0 % (20.0-45.0) L Monocytes (%) (Auto) 7.0 % (1.0-10.0) Eosinophils (%) (Auto) 1.1 % (0.0-3.0) Basophils (%) (Auto) 5.0 % (0.0-2.0) H Sodium Level 144 MMOL/L (136-145) Potassium Level 4.0 MMOL/L (3.5-5.1) Chloride Level 112 MMOL/L (98-107) H Carbon Dioxide Level 24 MMOL/L (21-32) Anion Gap 8 mmol/L (5-15) Blood Urea Nitrogen 24 mg/dL (7-18) H Creatinine 1.1 MG/DL (0.55-1.30) Estimat Glomerular Filtration Rate > 60 mL/min (>60) Glucose Level 82 MG/DL (74-106) Calcium Level 7.3 MG/DL (8.5-10.1) L Height (Feet): 5 Height (Inches): 8.00 Weight (Pounds): 242 General Appearance: WD/WN, no apparent distress, alert Cardiovascular: normal rate Respiratory/Chest: normal breath sounds, no respiratory distress Abdominal Exam: normal bowel sounds, non tender, soft, GT site - c/d/i Extremities: non-tender Nevaeh Ocampo NP Nov 07, 2018 10:20
--- NOTE | 2018-11-07 10:46 | Surgery Progress Note ---
Surgery Progress Note Subjective Additional Comments leukocytosis trending down h/h stable tolerating diet having BM Objective Last 24 Hour Vital Signs Date Time Temp Pulse Resp B/P (MAP) Pulse Ox O2 Delivery O2 Flow Rate FiO2 11/07/18 08:00 76 11/07/18 08:00 97.7 87 20 131/68 (89) 99 11/07/18 08:00 Room Air 11/07/18 04:00 Nasal Cannula 2.0 11/07/18 04:00 99.1 95 20 118/76 (90) 99 11/07/18 03:25 73 11/07/18 00:00 Nasal Cannula 2.0 11/07/18 00:00 99.3 91 20 112/66 (81) 96 11/06/18 23:27 93 11/06/18 20:00 Nasal Cannula 2.0 11/06/18 20:00 99.8 91 20 131/83 (99) 95 11/06/18 19:01 95 11/06/18 16:00 98.8 92 20 128/84 (99) 97 11/06/18 16:00 Nasal Cannula 2.0 11/06/18 16:00 87 11/06/18 12:02 Nasal Cannula 2.0 11/06/18 12:00 111 11/06/18 11:50 98.2 87 20 126/84 (98) 97 I&O Intake and Output 11/06/18 11/07/18 19:00 07:00 Intake Total 775 ml 275 ml Output Total 901 ml 700 ml Balance -126 ml -425 ml Intake Free Water 100 ml IV Total 55 ml Tube Feeding 495 ml 220 ml Other 180 ml Output Urine Total 900 ml 700 ml Stool Total 1 ml # Bowel Movements 1 4 Cardiovascular: RSR Respiratory: clear Abdomen: soft, non-tender, present bowel sounds, non-distended Extremities: no tenderness, no cyanosis Laboratory Tests Test 11/07/18 03:35 White Blood Count 12.6 K/UL (4.8-10.8) H Red Blood Count 3.61 M/UL (4.70-6.10) L Hemoglobin 10.4 G/DL (14.2-18.0) L Hematocrit 32.2 % (42.0-52.0) L Mean Corpuscular Volume 89 FL (80-99) Mean Corpuscular Hemoglobin 28.7 PG (27.0-31.0) Mean Corpuscular Hemoglobin Concent 32.2 G/DL (32.0-36.0) Red Cell Distribution Width 14.6 % (11.6-14.8) Platelet Count 190 K/UL (150-450) Mean Platelet Volume 6.5 FL (6.5-10.1) Neutrophils (%) (Auto) 80.0 % (45.0-75.0) H Lymphocytes (%) (Auto) 7.0 % (20.0-45.0) L Monocytes (%) (Auto) 7.0 % (1.0-10.0) Eosinophils (%) (Auto) 1.1 % (0.0-3.0) Basophils (%) (Auto) 5.0 % (0.0-2.0) H Sodium Level 144 MMOL/L (136-145) Potassium Level 4.0 MMOL/L (3.5-5.1) Chloride Level 112 MMOL/L (98-107) H Carbon Dioxide Level 24 MMOL/L (21-32) Anion Gap 8 mmol/L (5-15) Blood Urea Nitrogen 24 mg/dL (7-18) H Creatinine 1.1 MG/DL (0.55-1.30) Estimat Glomerular Filtration Rate > 60 mL/min (>60) Glucose Level 82 MG/DL (74-106) Calcium Level 7.3 MG/DL (8.5-10.1) L Plan Problems: (1) Volvulus Assessment & Plan: This is a 58-year-old male currently admitted for work-up of sepsis who was identified to have a leukocytosis, tachycardia, bacteremia. Patient is currently on IV antibiotics and slowly improving. On recent CT scan he was identified to have a potential volvulus. On examination clinically patient does not seem to have volvulus or bowel obstruction. His abdomen is soft nondistended nontender and with positive bowel sounds. He is tolerating tube feeds through his G-tube and having bowel movements and passing flatus. Swirling of the mesentery noted on CT scan concerning and will follow with serial exams and recommendations. For now okay to continue with tube feeds. Thank you for this consultation Small bowel series noted. No obstruction noted. (2) Fecal impaction Assessment & Plan: IMPRESSION: 1. Dilated fluid and gas-filled small bowel loops with transition point in the right lower quadrant where there is swirling of mesenteric vessels and small bowel, concerning for volvulus causing obstruction. 2. Wall thickening of the rectum may be secondary to fecal material versus proctitis. 3. Obstructing stone measuring 1.2 cm in the proximal right ureter. Moderate to severe right hydronephrosis. Additional stones in the right kidney and right renal pelvis, measuring up to approximately 1.8 cm and the right renal pelvis. 4. Small amount of free fluid in the pelvis. No abscess identified. (3) Sepsis Assessment & Plan: There is an obstructing stone within the ureter which is causing moderate severe hydronephrosis. The urinalysis demonstrated bacteria similar to that of his bacteremia. Potential etiology of sepsis and above is these obstructing stone. Recommend urological evaluation. Thank you (4) Anemia (5) Proctitis (6) Gastrostomy tube dependent (7) Obstructive hydrocephalus (8) COPD (chronic obstructive pulmonary disease) (9) Diabetes mellitus (10) Gram negative septicemia (11) Aphasia (12) Feeding by G-tube (13) Cellulitis of scrotum (14) History of CVA (cerebrovascular accident) (15) Suprapubic catheter dysfunction (16) Encephalopathy chronic (17) GILDARDO (acute kidney injury) (18) UTI (urinary tract infection) (19) Septic shock (20) History of DVT (deep vein thrombosis) (21) Suprapubic catheter (22) ATN (acute tubular necrosis) Russell Lopez Nov 07, 2018 10:46
--- NOTE | 2018-11-07 10:50 | NUR ---
NURSE NOTES: Report received from CANDI Moffett. Patient AOx1. In RA. No breathing distress or discomfort noted. IV on Left leg 22g on TKO, site intact. Supra pubic cath leaking, per RNMD aware. Pt. with G tube at 35 goal 55. Sacral dressing intact. Bed on lowest position, side rails upx2, brakes engaged, alarm on. Call light within easy reach.
--- NOTE | 2018-11-07 10:50 | NUR ---
HAND-OFF: Report given to CANDI Fierro.
--- NOTE | 2018-11-07 10:55 | Cardiac Electrophysiology PN ---
Assessment/Plan Assessment/Plan 1. S/P Septic Shock and dehydration Lactic acidosis 2.4. Off Levophed and on antibiotics Echo Nl EF. WBC down from 21K to 15k MRSA and enterococcus bacteremia. Awaiting TASNEEM today 2. Sinus tach 140s likely due to sepsis with fever. HR better 3. Inferior wall myocardial infarction based on electrocardiogram. Ruled out for myocardial infarction. EF 65% 4. Hypernatremia. 5. Renal failure. 6. CVA with paraplegia. 7. Status post suprapubic catheter. COLLETTE RN Subjective Subjective No events. Has MRSA and enterococcus bacteremia. TASNEEM pending today Objective Last 24 Hour Vital Signs Date Time Temp Pulse Resp B/P (MAP) Pulse Ox O2 Delivery O2 Flow Rate FiO2 11/07/18 08:00 76 11/07/18 08:00 97.7 87 20 131/68 (89) 99 11/07/18 08:00 Room Air 11/07/18 04:00 Nasal Cannula 2.0 11/07/18 04:00 99.1 95 20 118/76 (90) 99 11/07/18 03:25 73 11/07/18 00:00 Nasal Cannula 2.0 11/07/18 00:00 99.3 91 20 112/66 (81) 96 11/06/18 23:27 93 11/06/18 20:00 Nasal Cannula 2.0 11/06/18 20:00 99.8 91 20 131/83 (99) 95 11/06/18 19:01 95 11/06/18 16:00 98.8 92 20 128/84 (99) 97 11/06/18 16:00 Nasal Cannula 2.0 11/06/18 16:00 87 11/06/18 12:02 Nasal Cannula 2.0 11/06/18 12:00 111 11/06/18 11:50 98.2 87 20 126/84 (98) 97 Intake and Output 11/06/18 11/07/18 19:00 07:00 Intake Total 775 ml 275 ml Output Total 901 ml 700 ml Balance -126 ml -425 ml Intake Free Water 100 ml IV Total 55 ml Tube Feeding 495 ml 220 ml Other 180 ml Output Urine Total 900 ml 700 ml Stool Total 1 ml # Bowel Movements 1 4 Laboratory Tests Test 11/07/18 03:35 White Blood Count 12.6 K/UL (4.8-10.8) H Red Blood Count 3.61 M/UL (4.70-6.10) L Hemoglobin 10.4 G/DL (14.2-18.0) L Hematocrit 32.2 % (42.0-52.0) L Mean Corpuscular Volume 89 FL (80-99) Mean Corpuscular Hemoglobin 28.7 PG (27.0-31.0) Mean Corpuscular Hemoglobin Concent 32.2 G/DL (32.0-36.0) Red Cell Distribution Width 14.6 % (11.6-14.8) Platelet Count 190 K/UL (150-450) Mean Platelet Volume 6.5 FL (6.5-10.1) Neutrophils (%) (Auto) 80.0 % (45.0-75.0) H Lymphocytes (%) (Auto) 7.0 % (20.0-45.0) L Monocytes (%) (Auto) 7.0 % (1.0-10.0) Eosinophils (%) (Auto) 1.1 % (0.0-3.0) Basophils (%) (Auto) 5.0 % (0.0-2.0) H Sodium Level 144 MMOL/L (136-145) Potassium Level 4.0 MMOL/L (3.5-5.1) Chloride Level 112 MMOL/L (98-107) H Carbon Dioxide Level 24 MMOL/L (21-32) Anion Gap 8 mmol/L (5-15) Blood Urea Nitrogen 24 mg/dL (7-18) H Creatinine 1.1 MG/DL (0.55-1.30) Estimat Glomerular Filtration Rate > 60 mL/min (>60) Glucose Level 82 MG/DL (74-106) Calcium Level 7.3 MG/DL (8.5-10.1) L Microbiology Date/Time Source Procedure Growth Status 11/05/18 15:45 Blood Blood Culture - Preliminary NO GROWTH AFTER 24 HOURS Resulted 11/05/18 15:30 Blood Blood Culture - Preliminary NO GROWTH AFTER 24 HOURS Resulted Objective HEAD AND NECK: No JVD. LUNGS: Coarse rhonchi. CARDIOVASCULAR: Tachy S1, S2 with no gallop. ABDOMEN: Soft, status post suprapubic catheter. EXTREMITIES: Paraplegic with edema Darnell Segundo MD Nov 07, 2018 10:55
--- NOTE | 2018-11-07 11:17 | Pulmonology Progress Note ---
Assessment/Plan Problems: (1) Septic shock (2) ATN (acute tubular necrosis) (3) COPD (chronic obstructive pulmonary disease) (4) Encephalopathy chronic (5) Obstructive hydrocephalus (6) History of DVT (deep vein thrombosis) (7) Suprapubic catheter (8) Aphasia (9) Feeding by G-tube (10) History of CVA (cerebrovascular accident) Assessment/Plan wbc lowe, still elevated more stable persistent bacteremia less tachy respiratory treatment titrate fio2 to sat of 92% renal function better. f/u urology recommendations Subjective ROS Limited/Unobtainable: No Constitutional: Reports: no symptoms HEENT: Repors: no symptoms Allergies: Coded Allergies: VANCOMYCIN (Verified Allergy, Mild, Redness , 10/29/18) CIPROFLOXACIN (Verified Allergy, Unknown, 08/23/15) Objective Last 24 Hour Vital Signs Date Time Temp Pulse Resp B/P (MAP) Pulse Ox O2 Delivery O2 Flow Rate FiO2 11/07/18 08:00 79 11/07/18 08:00 76 11/07/18 08:00 97.7 87 20 131/68 (89) 99 11/07/18 08:00 Room Air 11/07/18 04:00 Nasal Cannula 2.0 11/07/18 04:00 99.1 95 20 118/76 (90) 99 11/07/18 03:25 73 11/07/18 00:00 Nasal Cannula 2.0 11/07/18 00:00 99.3 91 20 112/66 (81) 96 11/06/18 23:27 93 11/06/18 20:00 Nasal Cannula 2.0 11/06/18 20:00 99.8 91 20 131/83 (99) 95 11/06/18 19:01 95 11/06/18 16:00 98.8 92 20 128/84 (99) 97 11/06/18 16:00 Nasal Cannula 2.0 11/06/18 16:00 87 11/06/18 12:02 Nasal Cannula 2.0 11/06/18 12:00 111 11/06/18 11:50 98.2 87 20 126/84 (98) 97 Intake and Output 11/06/18 11/07/18 19:00 07:00 Intake Total 775 ml 275 ml Output Total 901 ml 700 ml Balance -126 ml -425 ml Intake Free Water 100 ml IV Total 55 ml Tube Feeding 495 ml 220 ml Other 180 ml Output Urine Total 900 ml 700 ml Stool Total 1 ml # Bowel Movements 1 4 General Appearance: WD/WN HEENT: normocephalic, anicteric Respiratory/Chest: chest wall non-tender, lungs clear Cardiovascular: normal peripheral pulses, regular rhythm Abdomen: normal bowel sounds, no organomegaly Genitourinary: normal external genitalia Skin: no lesions 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: no motor/sensory deficits Lymphatic: no neck adenopathy Microbiology Date/Time Source Procedure Growth Status 11/05/18 15:45 Blood Blood Culture - Preliminary NO GROWTH AFTER 24 HOURS Resulted 11/05/18 15:30 Blood Blood Culture - Preliminary NO GROWTH AFTER 24 HOURS Resulted Laboratory Tests 11/07/18 03:35: White Blood Count 12.6H, Red Blood Count 3.61L, Hemoglobin 10.4L, Hematocrit 32.2L, Mean Corpuscular Volume 89, Mean Corpuscular Hemoglobin 28.7, Mean Corpuscular Hemoglobin Concent 32.2, Red Cell Distribution Width 14.6, Platelet Count 190, Mean Platelet Volume 6.5, Neutrophils (%) (Auto) 80.0H, Lymphocytes ( %) (Auto) 7.0L, Monocytes (%) (Auto) 7.0, Eosinophils (%) (Auto) 1.1, Basophils (%) (Auto) 5.0H, Sodium Level 144, Potassium Level 4.0, Chloride Level 112H, Carbon Dioxide Level 24, Anion Gap 8, Blood Urea Nitrogen 24H, Creatinine 1.1, Estimat Glomerular Filtration Rate > 60, Glucose Level 82, Calcium Level 7.3L Current Medications Medications (Trade) Dose Ordered Sig/Fab Route PRN Reason Start Time Stop Time Status Last Admin Dose Admin Acetaminophen (Tylenol) 650 mg Q4H PRN GT fever (temp>100.5 F) 11/05/18 10:30 11/28/18 17:29 Cefepime HCl 2 gm/ Dextrose 55 ml @ 110 mls/hr EVERY 8 HOURS IVPB 11/02/18 13:00 11/09/18 12:59 11/07/18 05:41 Chlorhexidine Gluconate (Licha-Hex 2%) 1 applic DAILY@1999 TOPIC 11/01/18 20:00 11/29/18 19:59 11/05/18 20:38 Diphenhydramine HCl (Benadryl) 25 mg Q6H PRN IVP Itching 11/01/18 11:30 11/28/18 17:29 11/02/18 03:47 Docusate Sodium (Colace) 100 mg THREE TIMES A DAY GT 11/01/18 18:00 12/01/18 17:59 11/07/18 09:00 Famotidine (Pepcid) 20 mg Q12HR GT 11/05/18 21:00 11/29/18 20:59 11/07/18 09:00 Heparin Sodium (Porcine) (Heparin 5000 units/ml) 5,000 units EVERY 12 HOURS SUBQ 11/01/18 21:00 11/28/18 08:59 11/07/18 09:12 Linezolid (Zyvox) 600 mg EVERY 12 HOURS GT 11/01/18 21:00 11/10/18 20:59 11/07/18 09:00 Midodrine (Pro-Amatine) 10 mg THREE TIMES A DAY GT 11/04/18 13:00 11/29/18 12:59 Ondansetron HCl (Zofran) 4 mg Q6H PRN IVP Nausea & Vomiting 11/01/18 11:30 11/28/18 17:29 Polyethylene Glycol (Miralax) 17 gm DAILYPRN PRN GT Constipation 11/05/18 10:30 11/30/18 17:29 Rigoberto Bryant MD Nov 07, 2018 11:16
[2018-11-07 12:00] VITALS: BP 123/87
--- NOTE | 2018-11-07 12:53 | NUR ---
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 97.7 HR 87 RR 20 B/P 118/76 2L NC O2 SAT @ 98% WBC 12.6 BUN 24 IS: CEFEPIME IV ZYVOX GT RIGHT PERCUTANEOUS NEPHROSTOMY PLACEMENT STEP DOWN STATUS
--- NOTE | 2018-11-07 13:28 | Infectious Diseases Prog Note ---
Assessment/Plan Assessment/Plan Assessment: Septic shock- SP -probable pNA -MRSA/ P Mirabilis, E. fecalis bacteremia- m/l source UTI from obstructive stone , may need to r/o endocarditis -small bowel series: No significant small bowel obstruction demonstrated; contrast transitethe entire GI tract in 3 hours -11/03 CT abd/p: 1. Dilated fluid and gas-filled small bowel loops with transition point in the right lower quadrant where there is swirling of mesenteric vessels and small bowel, concerning for volvulus causing obstruction. Wall thickening of the rectum may be secondary to fecal material versus proctitis. Obstructing stone measuring 1.2 cm in the proximal right ureter. Moderate to severe right hydronephrosis. Additional stones in the right kidney and right renal pelvis, measuring up to approximately 1.8 cm and the right renal pelvis. Small amount of free fluid in the pelvis. No abscess identified. -10/30 CXR: Right perihilar disease possibly atelectasis or pneumonia. No change -repeat u/a wbc tnct, nit +, leuk +3 -u/a wbc 19-15, nit +, leuk +2; ucx >100k P. mirabilis (Previously reporte as onlyS Genta, Ertapenem, Zosyn; now hs been updated to R Nitrofurantoin and otherwise S) -CXR: Low lung volumes with right perihilar atelectatic changes. No definite acute process -10/29 Bcx 4/4 P. mirabilis (neri S), MRSA; repeat Bcx Neg; 10/30 BCxx 2/4 P Mirabilis , 1/ E. fecalis (S Vanc, AMP); 11/01 Bcx 4/ P. mirabilis, E. fecalis ; 11/04 BCx NTD -sp cx PsA (neri S), MRSA -2d Echo: no vegeatiosn Fever; improving Leukocytosis; improving GILDARDO, improving hx of UTI -07/2018 ucx E. fecalis (neri S), P. mirabilis -03/2019 ucx PsA TCP , SP CVA/TIA Dm2 CKD suprapubic catheter DVT hypertensive heart disease [place] resident Plan: cont Zyvox #7 and Cefepime # 6 ( monitor PLT ) for MRSA, enterococus and Proteus bacteremia, respectively -11/02 SP Meropenem #4 -11/01 Sp Amikacin #4 , IV Vancomycin #3 -10/29 SP Ertapenem #1, IV Vancomycin x1 -f/u cx -Monitor CBC/CMP, temperatures -aspiration precautions -favor a surgical procedure for relief of stone obstruction due to persistent bacteremia for source control -for TASNEEM to evaluate for endocarditis; scheduled for tomorrow -f/u repeat Bcx x 2 -Uro, Cards, Sx f/u Subjective Allergies: Coded Allergies: VANCOMYCIN (Verified Allergy, Mild, Redness , 10/29/18) CIPROFLOXACIN (Verified Allergy, Unknown, 08/23/15) Subjective afebrile in >48hrs repeat Bcx NTD wbc improved Objective Vital Signs Last 24 Hour Vital Signs Date Time Temp Pulse Resp B/P (MAP) Pulse Ox O2 Delivery O2 Flow Rate FiO2 11/07/18 12:43 80 11/07/18 12:00 Room Air 11/07/18 12:00 98.2 87 20 123/87 (99) 97 11/07/18 08:00 79 11/07/18 08:00 76 11/07/18 08:00 97.7 87 20 131/68 (89) 99 11/07/18 08:00 Room Air 11/07/18 04:00 Nasal Cannula 2.0 11/07/18 04:00 99.1 95 20 118/76 (90) 99 11/07/18 03:25 73 11/07/18 00:00 Nasal Cannula 2.0 11/07/18 00:00 99.3 91 20 112/66 (81) 96 11/06/18 23:27 93 11/06/18 20:00 Nasal Cannula 2.0 11/06/18 20:00 99.8 91 20 131/83 (99) 95 11/06/18 19:01 95 11/06/18 16:00 98.8 92 20 128/84 (99) 97 11/06/18 16:00 Nasal Cannula 2.0 11/06/18 16:00 87 Height (Feet): 5 Height (Inches): 8.00 Weight (Pounds): 242 Objective General Appearance: WD/WN, no apparent distress Lines, tubes and drains: peripheral, central line, gtube HEENT: normocephalic, atraumatic, anicteric Neck: non-tender, normal alignment Respiratory/Chest: chest wall non-tender, lungs clear Cardiovascular/Chest: normal peripheral pulses, normal rate Abdomen: normal bowel sounds Extremities: normal range of motion Microbiology Date/Time Source Procedure Growth Status 11/05/18 15:45 Blood Blood Culture - Preliminary NO GROWTH AFTER 24 HOURS Resulted 11/05/18 15:30 Blood Blood Culture - Preliminary NO GROWTH AFTER 24 HOURS Resulted Laboratory Tests Test 11/07/18 03:35 White Blood Count 12.6 K/UL (4.8-10.8) H Red Blood Count 3.61 M/UL (4.70-6.10) L Hemoglobin 10.4 G/DL (14.2-18.0) L Hematocrit 32.2 % (42.0-52.0) L Mean Corpuscular Volume 89 FL (80-99) Mean Corpuscular Hemoglobin 28.7 PG (27.0-31.0) Mean Corpuscular Hemoglobin Concent 32.2 G/DL (32.0-36.0) Red Cell Distribution Width 14.6 % (11.6-14.8) Platelet Count 190 K/UL (150-450) Mean Platelet Volume 6.5 FL (6.5-10.1) Neutrophils (%) (Auto) 80.0 % (45.0-75.0) H Lymphocytes (%) (Auto) 7.0 % (20.0-45.0) L Monocytes (%) (Auto) 7.0 % (1.0-10.0) Eosinophils (%) (Auto) 1.1 % (0.0-3.0) Basophils (%) (Auto) 5.0 % (0.0-2.0) H Sodium Level 144 MMOL/L (136-145) Potassium Level 4.0 MMOL/L (3.5-5.1) Chloride Level 112 MMOL/L (98-107) H Carbon Dioxide Level 24 MMOL/L (21-32) Anion Gap 8 mmol/L (5-15) Blood Urea Nitrogen 24 mg/dL (7-18) H Creatinine 1.1 MG/DL (0.55-1.30) Estimat Glomerular Filtration Rate > 60 mL/min (>60) Glucose Level 82 MG/DL (74-106) Calcium Level 7.3 MG/DL (8.5-10.1) L Current Medications Medications (Trade) Dose Ordered Sig/Fab Route PRN Reason Start Time Stop Time Status Last Admin Dose Admin Acetaminophen (Tylenol) 650 mg Q4H PRN GT fever (temp>100.5 F) 11/05/18 10:30 11/28/18 17:29 Cefepime HCl 2 gm/ Dextrose 55 ml @ 110 mls/hr EVERY 8 HOURS IVPB 11/02/18 13:00 11/09/18 12:59 11/07/18 05:41 Chlorhexidine Gluconate (Licha-Hex 2%) 1 applic DAILY@2000 TOPIC 11/01/18 20:00 11/29/18 19:59 11/05/18 20:38 Diphenhydramine HCl (Benadryl) 25 mg Q6H PRN IVP Itching 11/01/18 11:30 11/28/18 17:29 11/02/18 03:47 Docusate Sodium (Colace) 100 mg THREE TIMES A DAY GT 11/01/18 18:00 12/01/18 17:59 11/07/18 09:00 Famotidine (Pepcid) 20 mg Q12HR GT 11/05/18 21:00 11/29/18 20:59 11/07/18 09:00 Heparin Sodium (Porcine) (Heparin 5000 units/ml) 5,000 units EVERY 12 HOURS SUBQ 11/01/18 21:00 11/28/18 08:59 11/07/18 09:12 Linezolid (Zyvox) 600 mg EVERY 12 HOURS GT 11/01/18 21:00 11/10/18 20:59 11/07/18 09:00 Midodrine (Pro-Amatine) 10 mg THREE TIMES A DAY GT 11/04/18 13:00 11/29/18 12:59 Ondansetron HCl (Zofran) 4 mg Q6H PRN IVP Nausea & Vomiting 11/01/18 11:30 11/28/18 17:29 Polyethylene Glycol (Miralax) 17 gm DAILYPRN PRN GT Constipation 11/05/18 10:30 11/30/18 17:29 Dorothea Macario M.D. Nov 07, 2018 13:28
--- NOTE | 2018-11-07 13:34 | General Progress Note ---
Assessment/Plan Problem List: (1) Obstructive hydrocephalus ICD Codes: G91.1 - Obstructive hydrocephalus SNOMED: 690413186 (2) COPD (chronic obstructive pulmonary disease) ICD Codes: J44.9 - Chronic obstructive pulmonary disease, unspecified SNOMED: 57760836 (3) Diabetes mellitus ICD Codes: E11.9 - Type 2 diabetes mellitus without complications SNOMED: 28713119 (4) Feeding by G-tube ICD Codes: Z93.1 - Gastrostomy status SNOMED: 216904518, 903075659 (5) Sepsis ICD Codes: A41.9 - Sepsis, unspecified organism SNOMED: 94022725 (6) History of CVA (cerebrovascular accident) ICD Codes: Z86.73 - Personal history of transient ischemic attack (TIA), and cerebral infarction without residual deficits SNOMED: 998816551 (7) Encephalopathy chronic ICD Codes: G93.49 - Other encephalopathy SNOMED: 97165416 (8) UTI (urinary tract infection) ICD Codes: N39.0 - Urinary tract infection, site not specified SNOMED: 90365207 Qualifiers: Qualified Codes: N30.00 - Acute cystitis without hematuria (9) Septic shock ICD Codes: A41.9 - Sepsis, unspecified organism; R65.21 - Severe sepsis with septic shock SNOMED: 36819631 (10) ATN (acute tubular necrosis) ICD Codes: N17.0 - Acute kidney failure with tubular necrosis SNOMED: 26605333 Status: stable, progressing Assessment/Plan: o2 pulm tx abx bp control cbc bmp am aru eval Subjective Constitutional: Reports: weakness Allergies: Coded Allergies: VANCOMYCIN (Verified Allergy, Mild, Redness , 10/29/18) CIPROFLOXACIN (Verified Allergy, Unknown, 08/23/15) All Systems: reviewed and negative except above Subjective sl general pain Objective Last 24 Hour Vital Signs Date Time Temp Pulse Resp B/P (MAP) Pulse Ox O2 Delivery O2 Flow Rate FiO2 11/07/18 12:43 80 11/07/18 12:00 Room Air 11/07/18 12:00 98.2 87 20 123/87 (99) 97 11/07/18 08:00 79 11/07/18 08:00 76 11/07/18 08:00 97.7 87 20 131/68 (89) 99 11/07/18 08:00 Room Air 11/07/18 04:00 Nasal Cannula 2.0 11/07/18 04:00 99.1 95 20 118/76 (90) 99 11/07/18 03:25 73 11/07/18 00:00 Nasal Cannula 2.0 11/07/18 00:00 99.3 91 20 112/66 (81) 96 11/06/18 23:27 93 11/06/18 20:00 Nasal Cannula 2.0 11/06/18 20:00 99.8 91 20 131/83 (99) 95 11/06/18 19:01 95 11/06/18 16:00 98.8 92 20 128/84 (99) 97 11/06/18 16:00 Nasal Cannula 2.0 11/06/18 16:00 87 Intake and Output 11/06/18 11/07/18 19:00 07:00 Intake Total 775 ml 275 ml Output Total 901 ml 700 ml Balance -126 ml -425 ml Intake Free Water 100 ml IV Total 55 ml Tube Feeding 495 ml 220 ml Other 180 ml Output Urine Total 900 ml 700 ml Stool Total 1 ml # Bowel Movements 1 4 Laboratory Tests 11/07/18 03:35: White Blood Count 12.6H, Red Blood Count 3.61L, Hemoglobin 10.4L, Hematocrit 32.2L, Mean Corpuscular Volume 89, Mean Corpuscular Hemoglobin 28.7, Mean Corpuscular Hemoglobin Concent 32.2, Red Cell Distribution Width 14.6, Platelet Count 190, Mean Platelet Volume 6.5, Neutrophils (%) (Auto) 80.0H, Lymphocytes ( %) (Auto) 7.0L, Monocytes (%) (Auto) 7.0, Eosinophils (%) (Auto) 1.1, Basophils (%) (Auto) 5.0H, Sodium Level 144, Potassium Level 4.0, Chloride Level 112H, Carbon Dioxide Level 24, Anion Gap 8, Blood Urea Nitrogen 24H, Creatinine 1.1, Estimat Glomerular Filtration Rate > 60, Glucose Level 82, Calcium Level 7.3L Height (Feet): 5 Height (Inches): 8.00 Weight (Pounds): 242 General Appearance: lethargic EENT: normal ENT inspection Neck: normal alignment Cardiovascular: normal peripheral pulses, normal rate, regular rhythm Respiratory/Chest: chest wall non-tender, lungs clear, normal breath sounds Abdomen: normal bowel sounds, non tender, soft Extremities: normal inspection Edema: no edema noted Arm (L), no edema noted Arm (R), no edema noted Leg (L), no edema noted Leg (R), no edema noted Pedal (L), no edema noted Pedal (R), no edema noted Generalized Neurologic: motor weakness Skin: normal pigmentation, warm/dry Jaylen Bear DO Nov 07, 2018 13:34
--- NOTE | 2018-11-07 14:01 | NUR ---
HAND-OFF: Report given to CANDI Moffett.
--- NOTE | 2018-11-07 14:36 | NUR ---
NURSE NOTES: Report received from CANDI Thomas.
--- NOTE | 2018-11-07 15:00 | NUR ---
NURSE NOTES: Received transfer orders to tele from Dr. Bryant
[2018-11-07 16:00] VITALS: BP 143/89
--- NOTE | 2018-11-07 17:51 | NUR ---
NURSE NOTES: Telephone consent obtained for Nephrostomy by Madhav, on facesheet. 2nd RN verified by CANDI Thomas.
--- NOTE | 2018-11-07 19:28 | NUR ---
HAND-OFF: Report given to Quique Rizo RN.
--- NOTE | 2018-11-07 19:30 | NUR ---
NURSE NOTES: Received report from CANDI Moffett. Pt is resting in bed. In no acute distress. IV line intact and patent. GT site intact. HOB elevated. Bed in lowest position, call light within reach. Will continue plan of care.
[2018-11-07 20:00] VITALS: BP_SYST 118; BP_SYST 128; BP_DIAS 84; BP_DIAS 85
[2018-11-07] MEDS: Dyna-Hex 2% Top Sol 2oz TOPIC SCH (20:46)
--- NOTE | 2018-11-07 22:30 | NUR ---
TRANSFER TO FLOOR: Patient transferred to [facility], telemetry, per MD. Report given to CANDI Monae. Belongings and medications given to RN.
--- NOTE | 2018-11-07 22:30 | NUR ---
NURSE NOTES: Received patient from Guillermo CHRISTOPHER. Patient in bed, on room air, no s/s respiratory distress. Suprapubic catheter intact, patent, no leakage. G tube intact, 100 ml of residual, placed tube feeding on hold. Patient is contracted bilaterally on both upper and lower extremities including fingers and toes. On air mattress. Bed placed in low position, locked, bed alarm on, call light within reach.
[2018-11-08] VITALS (16 sets, daily range): BP systolic 100–141; BP diastolic 60–93
[2018-11-08] MEDS: Cefepime HCl 2 GM in D5W 55 ML IVPB SCH ×3 (05:06→23:05)
[2018-11-08 06:23] LABS: BASOPHILS % (AUTO) 1.8 % (0.0-2.0); EOSINOPHILS % (AUTO) 1.6 % (0.0-3.0); HEMATOCRIT 33.8 % (42.0-52.0); HEMOGLOBIN 11.1 G/DL (14.2-18.0); LYMPHOCYTES % (AUTO) 24.6 % (20.0-45.0); MEAN CORPUSCULAR VOLUME 87 FL (80-99); MONOCYTES % (AUTO) 8.5 % (1.0-10.0); NEUTROPHILS % (AUTO) 63.5 % (45.0-75.0); PLATELET COUNT 259 K/UL (150-450); RED BLOOD COUNT 3.86 M/UL (4.70-6.10); RED CELL DISTRIBUTION WIDTH 14.7 % (11.6-14.8); WHITE BLOOD COUNT 10.5 K/UL (4.8-10.8)
[2018-11-08 06:35] LABS: ALANINE AMINOTRANSFERASE 15 U/L (12-78); ALBUMIN 1.9 G/DL (3.4-5.0); ALBUMIN/GLOBULIN RATIO 0.3 (1.0-2.7); ALKALINE PHOSPHATASE 65 U/L (46-116); ANION GAP 5 mmol/L (5-15); ASPARTATE AMINO TRANSFERASE 24 U/L (15-37); BILIRUBIN,TOTAL 0.3 MG/DL (0.2-1.0); BLOOD UREA NITROGEN 19 mg/dL (7-18); CALCIUM 8.5 MG/DL (8.5-10.1); CARBON DIOXIDE 27 MMOL/L (21-32); CHLORIDE 101 MMOL/L (98-107); CREATININE 1.2 MG/DL (0.55-1.30); POTASSIUM 4.8 MMOL/L (3.5-5.1); SODIUM 132 MMOL/L (136-145)
[2018-11-08 07:17] LABS: PHOSPHORUS 3.5 MG/DL (2.5-4.9)
--- NOTE | 2018-11-08 07:41 | NUR ---
NURSE NOTES: received report from Sharda Monae. Patient sleeping comfortably in bed. NO s/s of distress. Patient NPO TF off for possible TASNEEM/nephrostomy tube placement today. will monito.
--- NOTE | 2018-11-08 08:19 | General Progress Note ---
Assessment/Plan Problem List: (1) Obstructive hydrocephalus ICD Codes: G91.1 - Obstructive hydrocephalus SNOMED: 726695756 (2) COPD (chronic obstructive pulmonary disease) ICD Codes: J44.9 - Chronic obstructive pulmonary disease, unspecified SNOMED: 81638846 (3) Diabetes mellitus ICD Codes: E11.9 - Type 2 diabetes mellitus without complications SNOMED: 28149504 (4) Feeding by G-tube ICD Codes: Z93.1 - Gastrostomy status SNOMED: 717542197, 103938210 (5) Sepsis ICD Codes: A41.9 - Sepsis, unspecified organism SNOMED: 57336658 (6) History of CVA (cerebrovascular accident) ICD Codes: Z86.73 - Personal history of transient ischemic attack (TIA), and cerebral infarction without residual deficits SNOMED: 299354314 (7) Encephalopathy chronic ICD Codes: G93.49 - Other encephalopathy SNOMED: 05579797 (8) UTI (urinary tract infection) ICD Codes: N39.0 - Urinary tract infection, site not specified SNOMED: 20153344 Qualifiers: Qualified Codes: N30.00 - Acute cystitis without hematuria (9) Septic shock ICD Codes: A41.9 - Sepsis, unspecified organism; R65.21 - Severe sepsis with septic shock SNOMED: 75036742 (10) ATN (acute tubular necrosis) ICD Codes: N17.0 - Acute kidney failure with tubular necrosis SNOMED: 09285571 Status: stable, progressing Assessment/Plan: o2 pulm tx abx bp control cbc bmp am aru eval Subjective Constitutional: Reports: weakness Allergies: Coded Allergies: VANCOMYCIN (Verified Allergy, Mild, Redness , 10/29/18) CIPROFLOXACIN (Verified Allergy, Unknown, 08/23/15) All Systems: reviewed and negative except above Subjective sleepy calm Objective Last 24 Hour Vital Signs Date Time Temp Pulse Resp B/P (MAP) Pulse Ox O2 Delivery O2 Flow Rate FiO2 11/08/18 08:00 98.7 104 18 116/75 (89) 95 11/08/18 04:00 98.5 98 18 115/71 (86) 97 11/08/18 04:00 96 11/08/18 00:00 Room Air 11/08/18 00:00 105 11/08/18 00:00 98.3 104 18 112/70 (84) 98 11/07/18 20:00 99 11/07/18 20:00 99 11/07/18 20:00 Room Air 11/07/18 20:00 99.9 99 20 128/85 (99) 95 11/07/18 17:23 94 11/07/18 16:00 Room Air 11/07/18 16:00 97.9 93 20 143/89 (107) 97 11/07/18 12:43 80 11/07/18 12:00 Room Air 11/07/18 12:00 98.2 87 20 123/87 (99) 97 Intake and Output 11/07/18 11/08/18 19:00 07:00 Intake Total 695 ml 220 ml Output Total 550 ml 700 ml Balance 145 ml -480 ml Intake Free Water 180 ml IV Total 55 ml Tube Feeding 515 ml 165 ml Output Urine Total 550 ml 700 ml # Bowel Movements 1 Laboratory Tests 11/08/18 05:45: White Blood Count 10.5, Red Blood Count 3.86L, Hemoglobin 11.1L, Hematocrit 33.8L, Mean Corpuscular Volume 87, Mean Corpuscular Hemoglobin 28.6, Mean Corpuscular Hemoglobin Concent 32.7, Red Cell Distribution Width 14.7, Platelet Count 259, Mean Platelet Volume 6.4L, Neutrophils (%) (Auto) 63.5, Lymphocytes ( %) (Auto) 24.6, Monocytes (%) (Auto) 8.5, Eosinophils (%) (Auto) 1.6, Basophils (%) (Auto) 1.8, Sodium Level 132L, Potassium Level 4.8, Chloride Level 101, Carbon Dioxide Level 27, Anion Gap 5, Blood Urea Nitrogen 19H, Creatinine 1.2, Estimat Glomerular Filtration Rate > 60, Glucose Level 108H, Calcium Level 8.5, Phosphorus Level 3.5, Magnesium Level 2.0, Total Bilirubin 0.3, Aspartate Amino Transf (AST/SGOT) 24, Alanine Aminotransferase (ALT/SGPT) 15, Alkaline Phosphatase 65, Total Protein 9.0H, Albumin 1.9L, Globulin 7.1, Albumin/ Globulin Ratio 0.3L Height (Feet): 5 Height (Inches): 8.00 Weight (Pounds): 242 General Appearance: lethargic EENT: normal ENT inspection Neck: normal alignment Cardiovascular: normal peripheral pulses, normal rate, regular rhythm Respiratory/Chest: chest wall non-tender, lungs clear, normal breath sounds Abdomen: normal bowel sounds, non tender, soft Extremities: normal inspection Edema: no edema noted Arm (L), no edema noted Arm (R), no edema noted Leg (L), no edema noted Leg (R), no edema noted Pedal (L), no edema noted Pedal (R), no edema noted Generalized Neurologic: motor weakness Skin: normal pigmentation, warm/dry Jaylen Bear DO Nov 08, 2018 08:19
--- NOTE | 2018-11-08 08:35 | Hematology/Onc Progress Note ---
Assessment/Plan Assessment/Plan # Anemia due to underlying chronic disease, multifactorial, elev inflamm markers --> anemia panel ordered, likely ferritin will be high - reviewed, ferritin at 294 --> hgb trend as 9-->6.7-->10-->11-->10-->10.4-->11.1 --> monitor for hematuria --> hgb goal >7, transfuse prn --> cysto as needed per urology/potential nephrostomy exchange # Leukocytosis likely due to uti, mdr v gi process --> monitor for improvement --> now has been started on linezolid/cefepime --> id and cards recs reviewed --> ct with potential volvulus v proctitis, have consulted gi --> wbc trend 22-->16-->14-->13.1-->12.6 # Septic Shock s/p and dehydration, lactic acidosis 2.4. Off levophed and on IV antibiotics --> per id MRSA/ P. Mirabilis bacteremia may need to r/o endocarditis --> on abx as per id recs # Sinus tachycardia 140s likely due to sepsis with fever, HR better --> monitor closely for improvement with cards # Hypernatremia --> trend na with renal # Renal failure --> renal recs # CVA with paraplegia Appreciate consultation greatly. Subjective Constitutional: Denies: no symptoms, chills, fever, malaise, weakness, other HEENT: Denies: no symptoms, eye pain, blurred vision, tearing, double vision, ear pain, ear discharge, nose pain, nose congestion, throat pain, throat swelling, mouth pain, mouth swelling, other Respiratory: Denies: no symptoms, cough, shortness of breath, SOB with excertion, SOB at rest, sputum, wheezing, other Genitourinary: Denies: no symptoms, burning, discharge, frequency, flank pain, hematuria, incontinence, pain, urgency, other 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: Denies: no symptoms, anxiety, depressed, emotional problems, headache, numbness, paresthesia, pre-existing deficit, seizure, tingling, tremors, weakness, other Endocrine: Denies: no symptoms, excessive sweating, flushing, intolerance to cold, intolerance to heat, increased hunger, increased thirst, increased urine, unexplained weight gain, unexplained weight loss, other Allergies: Coded Allergies: VANCOMYCIN (Verified Allergy, Mild, Redness , 10/29/18) CIPROFLOXACIN (Verified Allergy, Unknown, 08/23/15) Subjective 10/31: dc to med surg from icu, doing better 11/01: given 500cc ns for low bp, pcp was made aware as well as cards 11/02: on zyvox and cefepime, no fc, no bleeding, on feedings 11/03: on abx still, seen by id, and cards, r/o bacteremia induced by valve abnml 11/04: iv is on the right foot, pending potentially picc 11/05: labs have been reviewed, no f/c, no night sweats, seen by uro last night 11/06: anemia w/u reviewed, ferritin at 294, h/h stable, olga lidia postponed 11/07: no events noted, no f/c, on gtube feeds, no bleeding 11/08: npo for possible gtube/nephrostomy procedure, gtube is intact, no f/c Objective Objective Current Medications Medications (Trade) Dose Ordered Sig/Fab Route PRN Reason Start Time Stop Time Status Last Admin Dose Admin Acetaminophen (Tylenol) 650 mg Q4H PRN GT fever (temp>100.5 F) 11/05/18 10:30 11/28/18 17:29 Cefepime HCl 2 gm/ Dextrose 55 ml @ 110 mls/hr EVERY 8 HOURS IVPB 11/02/18 13:00 11/09/18 12:59 11/08/18 05:06 Chlorhexidine Gluconate (Licha-Hex 2%) 1 applic DAILY@1999 TOPIC 11/01/18 20:00 11/29/18 19:59 11/07/18 20:46 Diphenhydramine HCl (Benadryl) 25 mg Q6H PRN IVP Itching 11/01/18 11:30 11/28/18 17:29 11/02/18 03:47 Docusate Sodium (Colace) 100 mg THREE TIMES A DAY GT 11/01/18 18:00 12/01/18 17:59 11/07/18 17:34 Famotidine (Pepcid) 20 mg Q12HR GT 11/05/18 21:00 11/29/18 20:59 11/07/18 20:46 Heparin Sodium (Porcine) (Heparin 5000 units/ml) 5,000 units EVERY 12 HOURS SUBQ 11/01/18 21:00 11/28/18 08:59 11/07/18 20:47 Linezolid (Zyvox) 600 mg EVERY 12 HOURS GT 11/01/18 21:00 11/10/18 20:59 11/07/18 20:46 Midodrine (Pro-Amatine) 10 mg THREE TIMES A DAY GT 11/04/18 13:00 11/29/18 12:59 Ondansetron HCl (Zofran) 4 mg Q6H PRN IVP Nausea & Vomiting 11/01/18 11:30 11/28/18 17:29 Polyethylene Glycol (Miralax) 17 gm DAILYPRN PRN GT Constipation 11/05/18 10:30 11/30/18 17:29 Last 24 Hour Vital Signs Date Time Temp Pulse Resp B/P (MAP) Pulse Ox O2 Delivery O2 Flow Rate FiO2 11/08/18 08:00 98.7 104 18 116/75 (89) 95 11/08/18 04:00 98.5 98 18 115/71 (86) 97 11/08/18 04:00 96 11/08/18 00:00 Room Air 11/08/18 00:00 105 11/08/18 00:00 98.3 104 18 112/70 (84) 98 11/07/18 20:00 99 11/07/18 20:00 99 11/07/18 20:00 Room Air 11/07/18 20:00 99.9 99 20 128/85 (99) 95 11/07/18 17:23 94 11/07/18 16:00 Room Air 11/07/18 16:00 97.9 93 20 143/89 (107) 97 11/07/18 12:43 80 11/07/18 12:00 Room Air 11/07/18 12:00 98.2 87 20 123/87 (99) 97 11/07/18 08:00 79 11/07/18 08:00 76 11/07/18 08:00 97.7 87 20 131/68 (89) 99 11/07/18 08:00 Room Air 11/07/18 04:00 Nasal Cannula 2.0 11/07/18 04:00 99.1 95 20 118/76 (90) 99 11/07/18 03:25 73 11/07/18 00:00 Nasal Cannula 2.0 11/07/18 00:00 99.3 91 20 112/66 (81) 96 11/06/18 23:27 93 11/06/18 20:00 Nasal Cannula 2.0 11/06/18 20:00 99.8 91 20 131/83 (99) 95 11/06/18 19:01 95 11/06/18 16:00 98.8 92 20 128/84 (99) 97 11/06/18 16:00 Nasal Cannula 2.0 11/06/18 16:00 87 11/06/18 12:02 Nasal Cannula 2.0 11/06/18 12:00 111 11/06/18 11:50 98.2 87 20 126/84 (98) 97 Intake and Output 11/07/18 11/08/18 19:00 07:00 Intake Total 695 ml 220 ml Output Total 550 ml 700 ml Balance 145 ml -480 ml Intake Free Water 180 ml IV Total 55 ml Tube Feeding 515 ml 165 ml Output Urine Total 550 ml 700 ml # Bowel Movements 1 Labs Test 11/06/18 03:45 11/07/18 03:35 11/08/18 05:45 White Blood Count 13.1 K/UL (4.8-10.8) 12.6 K/UL (4.8-10.8) 10.5 K/UL (4.8-10.8) Red Blood Count 3.63 M/UL (4.70-6.10) 3.61 M/UL (4.70-6.10) 3.86 M/UL (4.70-6.10) Hemoglobin 10.4 G/DL (14.2-18.0) 10.4 G/DL (14.2-18.0) 11.1 G/DL (14.2-18.0) Hematocrit 32.1 % (42.0-52.0) 32.2 % (42.0-52.0) 33.8 % (42.0-52.0) Mean Corpuscular Volume 88 FL (80-99) 89 FL (80-99) 87 FL (80-99) Mean Corpuscular Hemoglobin 28.6 PG (27.0-31.0) 28.7 PG (27.0-31.0) 28.6 PG (27.0-31.0) Mean Corpuscular Hemoglobin Concent 32.4 G/DL (32.0-36.0) 32.2 G/DL (32.0-36.0) 32.7 G/DL (32.0-36.0) Red Cell Distribution Width 14.7 % (11.6-14.8) 14.6 % (11.6-14.8) 14.7 % (11.6-14.8) Platelet Count 189 K/UL (150-450) 190 K/UL (150-450) 259 K/UL (150-450) Mean Platelet Volume 6.8 FL (6.5-10.1) 6.5 FL (6.5-10.1) 6.4 FL (6.5-10.1) Neutrophils (%) (Auto) 73.2 % (45.0-75.0) 80.0 % (45.0-75.0) 63.5 % (45.0-75.0) Lymphocytes (%) (Auto) 17.1 % (20.0-45.0) 7.0 % (20.0-45.0) 24.6 % (20.0-45.0) Monocytes (%) (Auto) 7.3 % (1.0-10.0) 7.0 % (1.0-10.0) 8.5 % (1.0-10.0) Eosinophils (%) (Auto) 1.3 % (0.0-3.0) 1.1 % (0.0-3.0) 1.6 % (0.0-3.0) Basophils (%) (Auto) 1.1 % (0.0-2.0) 5.0 % (0.0-2.0) 1.8 % (0.0-2.0) Sodium Level 145 MMOL/L (136-145) 144 MMOL/L (136-145) 132 MMOL/L (136-145) Potassium Level 4.8 MMOL/L (3.5-5.1) 4.0 MMOL/L (3.5-5.1) 4.8 MMOL/L (3.5-5.1) Chloride Level 111 MMOL/L (98-107) 112 MMOL/L (98-107) 101 MMOL/L (98-107) Carbon Dioxide Level 27 MMOL/L (21-32) 24 MMOL/L (21-32) 27 MMOL/L (21-32) Anion Gap 7 mmol/L (5-15) 8 mmol/L (5-15) 5 mmol/L (5-15) Blood Urea Nitrogen 21 mg/dL (7-18) 24 mg/dL (7-18) 19 mg/dL (7-18) Creatinine 1.0 MG/DL (0.55-1.30) 1.1 MG/DL (0.55-1.30) 1.2 MG/DL (0.55-1.30) Estimat Glomerular Filtration Rate > 60 mL/min (>60) > 60 mL/min (>60) > 60 mL/min (>60) Glucose Level 99 MG/DL (74-106) 82 MG/DL (74-106) 108 MG/DL (74-106) Calcium Level 8.1 MG/DL (8.5-10.1) 7.3 MG/DL (8.5-10.1) 8.5 MG/DL (8.5-10.1) Phosphorus Level 3.5 MG/DL (2.5-4.9) Magnesium Level 2.0 MG/DL (1.8-2.4) Total Bilirubin 0.3 MG/DL (0.2-1.0) Aspartate Amino Transf (AST/SGOT) 24 U/L (15-37) Alanine Aminotransferase (ALT/SGPT) 15 U/L (12-78) Alkaline Phosphatase 65 U/L (46-116) Total Protein 9.0 G/DL (6.4-8.2) Albumin 1.9 G/DL (3.4-5.0) Globulin 7.1 g/dL Albumin/Globulin Ratio 0.3 (1.0-2.7) Height (Feet): 5 Height (Inches): 8.00 Weight (Pounds): 242 Objective Physical Exam General Appearance: A+O x1, NAD HEENT: normocephalic, atraumatic Neck: non-tender, normal alignment Respiratory/Chest: chest wall non-tender, lungs clear Cardiovascular/Chest: normal peripheral pulses, normal rate Abdomen: normal bowel sounds, non tender ++ peg ++ suprapubic catheter Extremities: normal range of motion Nathan Ludwig MD Nov 08, 2018 08:35
--- NOTE | 2018-11-08 08:45 | NUR ---
PT EVALUATION NOTE order received for PT eval, medical record reviewed. Spoke with staff at SNF. Patient is dependent with all mobility, transfers to michelle-chair with Eris lift, on RNA program. Skilled inpatient PT intervention is not warranted as patient is at baseline and is dependent with all mobility. Patient discharged from PT, Rachelle CHRISTOPHER notified.
[2018-11-08] MEDS: Heparin 5000 units/ml inj SUBQ SCH ×2 (09:00→23:31)
[2018-11-08] MEDS: Midodrine 10mg tab GT SCH ×3 (09:17→17:50)
[2018-11-08] MEDS: Docusate 100mg/10ml Liq GT SCH ×3 (09:17→18:00)
--- NOTE | 2018-11-08 10:39 | GI Progress Note ---
Assessment/Plan Problems: (1) Aphasia ICD Codes: R47.01 - Aphasia SNOMED: 12990841 (2) Anemia ICD Codes: D64.9 - Anemia, unspecified SNOMED: 411794417 (3) Fecal impaction ICD Codes: K56.41 - Fecal impaction SNOMED: 65125225 (4) Proctitis ICD Codes: K62.89 - Other specified diseases of anus and rectum SNOMED: 0475020 (5) Volvulus ICD Codes: K56.2 - Volvulus SNOMED: 5554598 Status: stable, unchanged Status Narrative Discussed with Dr. Faust Assessment/Plan SBFT negative OB stool negative Anemia work-up reviewed Patient may benefit from colonoscopy to evaluate proctitis, can be done as outpatient. Prevacid Monitor H&H, PRN transfusions Bowel regimen turn q2 hours Follow-up labs The patient was seen and examined at bedside and all new and available data was reviewed in the patients chart. I agree with the above findings, impression and plan. (Patient seen earlier today. Signature stamp does not reflect patient encounter time.). - Deep Faust MD Subjective Gastrointestinal/Abdominal: Reports: no symptoms Subjective limited Objective Last 24 Hour Vital Signs Date Time Temp Pulse Resp B/P (MAP) Pulse Ox O2 Delivery O2 Flow Rate FiO2 11/08/18 09:00 91 11/08/18 09:00 Room Air 11/08/18 08:00 98.7 104 18 116/75 (89) 95 11/08/18 04:00 98.5 98 18 115/71 (86) 97 11/08/18 04:00 96 11/08/18 00:00 Room Air 11/08/18 00:00 105 11/08/18 00:00 98.3 104 18 112/70 (84) 98 11/07/18 20:00 99 11/07/18 20:00 99 11/07/18 20:00 Room Air 11/07/18 20:00 99.9 99 20 128/85 (99) 95 11/07/18 17:23 94 11/07/18 16:00 Room Air 11/07/18 16:00 97.9 93 20 143/89 (107) 97 11/07/18 12:43 80 11/07/18 12:00 Room Air 11/07/18 12:00 98.2 87 20 123/87 (99) 97 Intake and Output 11/07/18 11/08/18 19:00 07:00 Intake Total 695 ml 220 ml Output Total 550 ml 700 ml Balance 145 ml -480 ml Intake Free Water 180 ml IV Total 55 ml Tube Feeding 515 ml 165 ml Output Urine Total 550 ml 700 ml # Bowel Movements 1 Laboratory Tests Test 11/08/18 05:45 White Blood Count 10.5 K/UL (4.8-10.8) Red Blood Count 3.86 M/UL (4.70-6.10) L Hemoglobin 11.1 G/DL (14.2-18.0) L Hematocrit 33.8 % (42.0-52.0) L Mean Corpuscular Volume 87 FL (80-99) Mean Corpuscular Hemoglobin 28.6 PG (27.0-31.0) Mean Corpuscular Hemoglobin Concent 32.7 G/DL (32.0-36.0) Red Cell Distribution Width 14.7 % (11.6-14.8) Platelet Count 259 K/UL (150-450) Mean Platelet Volume 6.4 FL (6.5-10.1) L Neutrophils (%) (Auto) 63.5 % (45.0-75.0) Lymphocytes (%) (Auto) 24.6 % (20.0-45.0) Monocytes (%) (Auto) 8.5 % (1.0-10.0) Eosinophils (%) (Auto) 1.6 % (0.0-3.0) Basophils (%) (Auto) 1.8 % (0.0-2.0) Sodium Level 132 MMOL/L (136-145) L Potassium Level 4.8 MMOL/L (3.5-5.1) Chloride Level 101 MMOL/L (98-107) Carbon Dioxide Level 27 MMOL/L (21-32) Anion Gap 5 mmol/L (5-15) Blood Urea Nitrogen 19 mg/dL (7-18) H Creatinine 1.2 MG/DL (0.55-1.30) Estimat Glomerular Filtration Rate > 60 mL/min (>60) Glucose Level 108 MG/DL (74-106) H Calcium Level 8.5 MG/DL (8.5-10.1) Phosphorus Level 3.5 MG/DL (2.5-4.9) Magnesium Level 2.0 MG/DL (1.8-2.4) Total Bilirubin 0.3 MG/DL (0.2-1.0) Aspartate Amino Transf (AST/SGOT) 24 U/L (15-37) Alanine Aminotransferase (ALT/SGPT) 15 U/L (12-78) Alkaline Phosphatase 65 U/L (46-116) Total Protein 9.0 G/DL (6.4-8.2) H Albumin 1.9 G/DL (3.4-5.0) L Globulin 7.1 g/dL Albumin/Globulin Ratio 0.3 (1.0-2.7) L Height (Feet): 5 Height (Inches): 8.00 Weight (Pounds): 242 General Appearance: WD/WN, no apparent distress, alert Cardiovascular: normal rate Respiratory/Chest: normal breath sounds, no respiratory distress Abdominal Exam: normal bowel sounds, non tender, soft, GT site - Clean dry and intact Extremities: non-tender Nevaeh Ocampo NP Nov 08, 2018 10:39
--- NOTE | 2018-11-08 11:12 | Infectious Diseases Prog Note ---
Assessment/Plan Assessment/Plan Assessment: Septic shock- SP -probable pNA -MRSA/ P Mirabilis, E. fecalis bacteremia- m/l source UTI from obstructive stone , may need to r/o endocarditis -small bowel series: No significant small bowel obstruction demonstrated; contrast transitethe entire GI tract in 3 hours -11/03 CT abd/p: 1. Dilated fluid and gas-filled small bowel loops with transition point in the right lower quadrant where there is swirling of mesenteric vessels and small bowel, concerning for volvulus causing obstruction. Wall thickening of the rectum may be secondary to fecal material versus proctitis. Obstructing stone measuring 1.2 cm in the proximal right ureter. Moderate to severe right hydronephrosis. Additional stones in the right kidney and right renal pelvis, measuring up to approximately 1.8 cm and the right renal pelvis. Small amount of free fluid in the pelvis. No abscess identified. -10/30 CXR: Right perihilar disease possibly atelectasis or pneumonia. No change -repeat u/a wbc tnct, nit +, leuk +3 -u/a wbc 19-15, nit +, leuk +2; ucx >100k P. mirabilis (Previously reporte as onlyS Genta, Ertapenem, Zosyn; now hs been updated to R Nitrofurantoin and otherwise S) -CXR: Low lung volumes with right perihilar atelectatic changes. No definite acute process -10/29 Bcx 4/ P. mirabilis (neri S), MRSA; repeat Bcx Neg; 10/30 BCxx 2/4 P Mirabilis , 1/ E. fecalis (S Vanc, AMP); 11/01 Bcx 4/ P. mirabilis, E. fecalis ; 11/04 BCx NTD -sp cx PsA (neri S), MRSA -2d Echo: no vegeatiosn Fever; SP Leukocytosis; SP GILDARDO, improving hx of UTI -07/2018 ucx E. fecalis (neri S), P. mirabilis -03/2019 ucx PsA TCP , SP CVA/TIA Dm2 CKD suprapubic catheter DVT hypertensive heart disease [facility] Plan: cont Zyvox #8 and Cefepime # 7 ( monitor PLT ) for MRSA, enterococus and Proteus bacteremia, respectively -11/02 SP Meropenem #4 -11/01 Sp Amikacin #4 , IV Vancomycin #3 -10/29 SP Ertapenem #1, IV Vancomycin x1 -f/u cx -Monitor CBC/CMP, temperatures -aspiration precautions -favor a surgical procedure for relief of stone obstruction due to persistent bacteremia for source control; plan for NT today -for TASNEEM to evaluate for endocarditis; scheduled for today -f/u repeat Bcx x 2 -Uro, Cards, Sx f/u Subjective Allergies: Coded Allergies: VANCOMYCIN (Verified Allergy, Mild, Redness , 10/29/18) CIPROFLOXACIN (Verified Allergy, Unknown, 08/23/15) Subjective afebrile in >72hrs repeat Bcx NTD leukocytosis resolved plan for TASNEEM and NT placement today Objective Vital Signs Last 24 Hour Vital Signs Date Time Temp Pulse Resp B/P (MAP) Pulse Ox O2 Delivery O2 Flow Rate FiO2 11/08/18 09:00 91 11/08/18 09:00 Room Air 11/08/18 08:00 98.7 104 18 116/75 (89) 95 11/08/18 04:00 98.5 98 18 115/71 (86) 97 11/08/18 04:00 96 11/08/18 00:00 Room Air 11/08/18 00:00 105 11/08/18 00:00 98.3 104 18 112/70 (84) 98 11/07/18 20:00 99 11/07/18 20:00 99 11/07/18 20:00 Room Air 11/07/18 20:00 99.9 99 20 128/85 (99) 95 11/07/18 17:23 94 11/07/18 16:00 Room Air 11/07/18 16:00 97.9 93 20 143/89 (107) 97 11/07/18 12:43 80 11/07/18 12:00 Room Air 11/07/18 12:00 98.2 87 20 123/87 (99) 97 Height (Feet): 5 Height (Inches): 8.00 Weight (Pounds): 242 Objective General Appearance: WD/WN, no apparent distress Lines, tubes and drains: peripheral, central line, gtube HEENT: normocephalic, atraumatic, anicteric Neck: non-tender, normal alignment Respiratory/Chest: chest wall non-tender, lungs clear Cardiovascular/Chest: normal peripheral pulses, normal rate Abdomen: normal bowel sounds Extremities: normal range of motion Microbiology Date/Time Source Procedure Growth Status 11/05/18 15:45 Blood Blood Culture - Preliminary NO GROWTH AFTER 48 HOURS Resulted 11/05/18 15:30 Blood Blood Culture - Preliminary NO GROWTH AFTER 48 HOURS Resulted Laboratory Tests Test 11/08/18 05:45 White Blood Count 10.5 K/UL (4.8-10.8) Red Blood Count 3.86 M/UL (4.70-6.10) L Hemoglobin 11.1 G/DL (14.2-18.0) L Hematocrit 33.8 % (42.0-52.0) L Mean Corpuscular Volume 87 FL (80-99) Mean Corpuscular Hemoglobin 28.6 PG (27.0-31.0) Mean Corpuscular Hemoglobin Concent 32.7 G/DL (32.0-36.0) Red Cell Distribution Width 14.7 % (11.6-14.8) Platelet Count 259 K/UL (150-450) Mean Platelet Volume 6.4 FL (6.5-10.1) L Neutrophils (%) (Auto) 63.5 % (45.0-75.0) Lymphocytes (%) (Auto) 24.6 % (20.0-45.0) Monocytes (%) (Auto) 8.5 % (1.0-10.0) Eosinophils (%) (Auto) 1.6 % (0.0-3.0) Basophils (%) (Auto) 1.8 % (0.0-2.0) Sodium Level 132 MMOL/L (136-145) L Potassium Level 4.8 MMOL/L (3.5-5.1) Chloride Level 101 MMOL/L (98-107) Carbon Dioxide Level 27 MMOL/L (21-32) Anion Gap 5 mmol/L (5-15) Blood Urea Nitrogen 19 mg/dL (7-18) H Creatinine 1.2 MG/DL (0.55-1.30) Estimat Glomerular Filtration Rate > 60 mL/min (>60) Glucose Level 108 MG/DL (74-106) H Calcium Level 8.5 MG/DL (8.5-10.1) Phosphorus Level 3.5 MG/DL (2.5-4.9) Magnesium Level 2.0 MG/DL (1.8-2.4) Total Bilirubin 0.3 MG/DL (0.2-1.0) Aspartate Amino Transf (AST/SGOT) 24 U/L (15-37) Alanine Aminotransferase (ALT/SGPT) 15 U/L (12-78) Alkaline Phosphatase 65 U/L (46-116) Total Protein 9.0 G/DL (6.4-8.2) H Albumin 1.9 G/DL (3.4-5.0) L Globulin 7.1 g/dL Albumin/Globulin Ratio 0.3 (1.0-2.7) L Current Medications Medications (Trade) Dose Ordered Sig/Fab Route PRN Reason Start Time Stop Time Status Last Admin Dose Admin Acetaminophen (Tylenol) 650 mg Q4H PRN GT fever (temp>100.5 F) 11/05/18 10:30 11/28/18 17:29 Cefepime HCl 2 gm/ Dextrose 55 ml @ 110 mls/hr EVERY 8 HOURS IVPB 11/02/18 13:00 11/13/18 12:59 11/08/18 05:06 Chlorhexidine Gluconate (Licha-Hex 2%) 1 applic DAILY@2000 TOPIC 11/01/18 20:00 11/29/18 19:59 11/07/18 20:46 Diphenhydramine HCl (Benadryl) 25 mg Q6H PRN IVP Itching 11/01/18 11:30 11/28/18 17:29 11/02/18 03:47 Docusate Sodium (Colace) 100 mg THREE TIMES A DAY GT 11/01/18 18:00 12/01/18 17:59 11/08/18 09:17 Famotidine (Pepcid) 20 mg Q12HR GT 11/05/18 21:00 11/29/18 20:59 11/08/18 09:17 Heparin Sodium (Porcine) (Heparin 5000 units/ml) 5,000 units EVERY 12 HOURS SUBQ 11/01/18 21:00 11/28/18 08:59 11/07/18 20:47 Linezolid (Zyvox) 600 mg EVERY 12 HOURS GT 11/01/18 21:00 11/10/18 20:59 11/08/18 09:17 Midodrine (Pro-Amatine) 10 mg THREE TIMES A DAY GT 11/04/18 13:00 11/29/18 12:59 11/08/18 09:17 Ondansetron HCl (Zofran) 4 mg Q6H PRN IVP Nausea & Vomiting 11/01/18 11:30 11/28/18 17:29 Polyethylene Glycol (Miralax) 17 gm DAILYPRN PRN GT Constipation 11/05/18 10:30 11/30/18 17:29 Dorothea Macario M.D. Nov 08, 2018 11:12
--- NOTE | 2018-11-08 11:46 | NUR ---
RD ASSESSMENT & RECOMMENDATIONS SEE CARE ACTIVITY FOR COMPLETE ASSESSMENT DAILY ESTIMATED NEEDS: Needs based on Sepsis/ 77kg abw 25-30 kcals/kg 5469-8272 total kcals 1-2 g protein/kg 77-154 g total protein 25-30 mL/kg 7877-6463 total fluid mLs NUTRITION DIAGNOSIS: 1) Swallowing difficulty related to dysphagia s/p cva as evidenced by pt dependent on PEG for all nutrition and hydration needs. CURRENT TF:Glucerna 1.5 @ 55ml/hr x 24 hrs -> HELD ENTERAL NUTRITION RECOMMENDATIONS: Glucerna 1.5 @ 55ml/hr x 24 hrs to provide 1320ml, 1980kcal, 109g prot, 1002ml free water * Post procedure, resume TF as medically appropriate * HOB over 30 degrees/ water flush per MD. ADDITIONAL RECOMMENDATIONS: 1) Calibrated bedscale wt for accurate CBW 2) Monitor lytes, replete as needed 3) Consider NISS/ accuchecks w/ TF for BG control- h/o DM 4) Rec wound eval ( wound photos noted) .
[2018-11-08] MEDS ORDERED: Isovue-300 100ml vial INJ PRN (11:51)
[2018-11-08] MEDS ORDERED: Lidocaine 1% Plain 30 ml INJ PRN ×2 (12:00→14:57)
[2018-11-08 13:04] LABS: INR 1.1 (0.9-1.1)
--- NOTE | 2018-11-08 13:28 | NUR ---
[employer] HOBBER SI: SEPTIC SHOCK, UTI T. 98.2 HR 104 RR 18 B/P 118/78 RA 98% NA 132 IS: CEFEPIME IV ZYVOX HEPARIN SUBC PEPCID TELE STATUS
--- NOTE | 2018-11-08 13:45 | NUR ---
NURSE NOTES: Made attempts to contact Rosalva Canela and Diann Crain for consent for Right Percutaneous Nephrostomy Tube Placement. Awaiting call back.
[2018-11-08] MEDS ORDERED: Heparin1,000 units/500ml Premix(Conc:2 units/ml) INJ PRN (14:57)
--- NOTE | 2018-11-08 14:58 | Pre-Procedure Note/Attestation ---
Pre-Procedure Note/Attestation Complete Prior to Procedure Planned Procedure: right Procedure Narrative: nephrostomy Indications for Procedure Pre-Operative Diagnosis: obstructive uropathy Attestation I attest that I discussed the nature of the procedure; its benefits; risks and complications; and alternatives (and the risks and benefits of such alternatives ), prior to the procedure, with the patient (or the patient's legal tax representative). I attest that, if there was a reasonable possibility of needing a blood transfusion, the patient (or the patient's legal tax representative) was given the [facility] standardized written summary, pursuant to the [place] Blood Safety Act ([place] Health and Safety Code # 1645, as amended). I attest that I re-evaluated the patient just prior to the surgery and that there has been no change in the patient's H&P, except as documented below: Discussed by phone with pt's niece (FRANCHESCA) at approximately 1440 on 11/08/2018 Harry Curtis MD Nov 08, 2018 14:58
[2018-11-08] MEDS ORDERED: ceFAZolin sod 1 GM in D5W 55 ML IVPB ONE (15:00)
--- NOTE | 2018-11-08 15:37 | Cardiac Electrophysiology PN ---
Assessment/Plan Assessment/Plan 1. S/P Septic Shock and dehydration Lactic acidosis 2.4. Off Levophed and on antibiotics Echo Nl EF. WBC down from 21K to 10 k MRSA and enterococcus bacteremia. TASNEEM rescheduled for Sunday 2. Sinus tach 140s likely due to sepsis with fever. HR better 3. Inferior wall myocardial infarction based on electrocardiogram. Ruled out for myocardial infarction. EF 65% 4. Hypernatremia. 5. Renal failure. 6. CVA with paraplegia. 7. Status post suprapubic catheter. COLLETTE RN Subjective Subjective No events. Has MRSA and enterococcus bacteremia. TASNEEM still pending Objective Last 24 Hour Vital Signs Date Time Temp Pulse Resp B/P (MAP) Pulse Ox O2 Delivery O2 Flow Rate FiO2 11/08/18 12:00 98.2 90 20 118/79 (92) 90 11/08/18 12:00 89 11/08/18 09:00 91 11/08/18 09:00 Room Air 11/08/18 08:00 98.7 104 18 116/75 (89) 95 11/08/18 04:00 98.5 98 18 115/71 (86) 97 11/08/18 04:00 96 11/08/18 00:00 Room Air 11/08/18 00:00 105 11/08/18 00:00 98.3 104 18 112/70 (84) 98 11/07/18 20:00 99 11/07/18 20:00 99 11/07/18 20:00 Room Air 11/07/18 20:00 99.9 99 20 128/85 (99) 95 11/07/18 17:23 94 11/07/18 16:00 Room Air 11/07/18 16:00 97.9 93 20 143/89 (107) 97 Intake and Output 11/07/18 11/08/18 19:00 07:00 Intake Total 695 ml 220 ml Output Total 550 ml 700 ml Balance 145 ml -480 ml Intake Free Water 180 ml IV Total 55 ml Tube Feeding 515 ml 165 ml Output Urine Total 550 ml 700 ml # Bowel Movements 1 Laboratory Tests Test 11/08/18 05:45 11/08/18 12:35 White Blood Count 10.5 K/UL (4.8-10.8) Red Blood Count 3.86 M/UL (4.70-6.10) L Hemoglobin 11.1 G/DL (14.2-18.0) L Hematocrit 33.8 % (42.0-52.0) L Mean Corpuscular Volume 87 FL (80-99) Mean Corpuscular Hemoglobin 28.6 PG (27.0-31.0) Mean Corpuscular Hemoglobin Concent 32.7 G/DL (32.0-36.0) Red Cell Distribution Width 14.7 % (11.6-14.8) Platelet Count 259 K/UL (150-450) Mean Platelet Volume 6.4 FL (6.5-10.1) L Neutrophils (%) (Auto) 63.5 % (45.0-75.0) Lymphocytes (%) (Auto) 24.6 % (20.0-45.0) Monocytes (%) (Auto) 8.5 % (1.0-10.0) Eosinophils (%) (Auto) 1.6 % (0.0-3.0) Basophils (%) (Auto) 1.8 % (0.0-2.0) Sodium Level 132 MMOL/L (136-145) L Potassium Level 4.8 MMOL/L (3.5-5.1) Chloride Level 101 MMOL/L (98-107) Carbon Dioxide Level 27 MMOL/L (21-32) Anion Gap 5 mmol/L (5-15) Blood Urea Nitrogen 19 mg/dL (7-18) H Creatinine 1.2 MG/DL (0.55-1.30) Estimat Glomerular Filtration Rate > 60 mL/min (>60) Glucose Level 108 MG/DL (74-106) H Calcium Level 8.5 MG/DL (8.5-10.1) Phosphorus Level 3.5 MG/DL (2.5-4.9) Magnesium Level 2.0 MG/DL (1.8-2.4) Total Bilirubin 0.3 MG/DL (0.2-1.0) Aspartate Amino Transf (AST/SGOT) 24 U/L (15-37) Alanine Aminotransferase (ALT/SGPT) 15 U/L (12-78) Alkaline Phosphatase 65 U/L (46-116) Total Protein 9.0 G/DL (6.4-8.2) H Albumin 1.9 G/DL (3.4-5.0) L Globulin 7.1 g/dL Albumin/Globulin Ratio 0.3 (1.0-2.7) L Prothrombin Time 11.4 SEC (9.30-11.50) Prothromb Time International Ratio 1.1 (0.9-1.1) Activated Partial Thromboplast Time 31 SEC (23-33) Microbiology Date/Time Source Procedure Growth Status 11/05/18 15:45 Blood Blood Culture - Preliminary NO GROWTH AFTER 48 HOURS Resulted Objective HEAD AND NECK: No JVD. LUNGS: Coarse rhonchi. CARDIOVASCULAR: Tachy S1, S2 with no gallop. ABDOMEN: Soft, status post suprapubic catheter. EXTREMITIES: Paraplegic with edema Darnell Segundo MD Nov 08, 2018 15:36
--- NOTE | 2018-11-08 15:43 | Surgery Progress Note ---
Surgery Progress Note Subjective Additional Comments no acute events comfortable stable. labs improved exam improved +BM Objective Last 24 Hour Vital Signs Date Time Temp Pulse Resp B/P (MAP) Pulse Ox O2 Delivery O2 Flow Rate FiO2 11/08/18 15:33 88 20 3.0 11/08/18 12:00 98.2 90 20 118/79 (92) 90 11/08/18 12:00 89 11/08/18 09:00 91 11/08/18 09:00 Room Air 11/08/18 08:00 98.7 104 18 116/75 (89) 95 11/08/18 04:00 98.5 98 18 115/71 (86) 97 11/08/18 04:00 96 11/08/18 00:00 Room Air 11/08/18 00:00 105 11/08/18 00:00 98.3 104 18 112/70 (84) 98 11/07/18 20:00 99 11/07/18 20:00 99 11/07/18 20:00 Room Air 11/07/18 20:00 99.9 99 20 128/85 (99) 95 11/07/18 17:23 94 11/07/18 16:00 Room Air 11/07/18 16:00 97.9 93 20 143/89 (107) 97 I&O Intake and Output 11/07/18 11/08/18 19:00 07:00 Intake Total 695 ml 220 ml Output Total 550 ml 700 ml Balance 145 ml -480 ml Intake Free Water 180 ml IV Total 55 ml Tube Feeding 515 ml 165 ml Output Urine Total 550 ml 700 ml # Bowel Movements 1 Dressing: saturated Wound: clean Cardiovascular: RSR Respiratory: clear Abdomen: soft, non-tender, present bowel sounds Extremities: no cyanosis Laboratory Tests Test 11/08/18 05:45 11/08/18 12:35 White Blood Count 10.5 K/UL (4.8-10.8) Red Blood Count 3.86 M/UL (4.70-6.10) L Hemoglobin 11.1 G/DL (14.2-18.0) L Hematocrit 33.8 % (42.0-52.0) L Mean Corpuscular Volume 87 FL (80-99) Mean Corpuscular Hemoglobin 28.6 PG (27.0-31.0) Mean Corpuscular Hemoglobin Concent 32.7 G/DL (32.0-36.0) Red Cell Distribution Width 14.7 % (11.6-14.8) Platelet Count 259 K/UL (150-450) Mean Platelet Volume 6.4 FL (6.5-10.1) L Neutrophils (%) (Auto) 63.5 % (45.0-75.0) Lymphocytes (%) (Auto) 24.6 % (20.0-45.0) Monocytes (%) (Auto) 8.5 % (1.0-10.0) Eosinophils (%) (Auto) 1.6 % (0.0-3.0) Basophils (%) (Auto) 1.8 % (0.0-2.0) Sodium Level 132 MMOL/L (136-145) L Potassium Level 4.8 MMOL/L (3.5-5.1) Chloride Level 101 MMOL/L (98-107) Carbon Dioxide Level 27 MMOL/L (21-32) Anion Gap 5 mmol/L (5-15) Blood Urea Nitrogen 19 mg/dL (7-18) H Creatinine 1.2 MG/DL (0.55-1.30) Estimat Glomerular Filtration Rate > 60 mL/min (>60) Glucose Level 108 MG/DL (74-106) H Calcium Level 8.5 MG/DL (8.5-10.1) Phosphorus Level 3.5 MG/DL (2.5-4.9) Magnesium Level 2.0 MG/DL (1.8-2.4) Total Bilirubin 0.3 MG/DL (0.2-1.0) Aspartate Amino Transf (AST/SGOT) 24 U/L (15-37) Alanine Aminotransferase (ALT/SGPT) 15 U/L (12-78) Alkaline Phosphatase 65 U/L (46-116) Total Protein 9.0 G/DL (6.4-8.2) H Albumin 1.9 G/DL (3.4-5.0) L Globulin 7.1 g/dL Albumin/Globulin Ratio 0.3 (1.0-2.7) L Prothrombin Time 11.4 SEC (9.30-11.50) Prothromb Time International Ratio 1.1 (0.9-1.1) Activated Partial Thromboplast Time 31 SEC (23-33) Plan Problems: (1) Volvulus Assessment & Plan: This is a 58-year-old male currently admitted for work-up of sepsis who was identified to have a leukocytosis, tachycardia, bacteremia. Patient is currently on IV antibiotics and slowly improving. On recent CT scan he was identified to have a potential volvulus. On examination clinically patient does not seem to have volvulus or bowel obstruction. His abdomen is soft nondistended nontender and with positive bowel sounds. He is tolerating tube feeds through his G-tube and having bowel movements and passing flatus. Swirling of the mesentery noted on CT scan concerning and will follow with serial exams and recommendations. For now okay to continue with tube feeds. Thank you for this consultation Small bowel series noted. No obstruction noted. (2) Fecal impaction Assessment & Plan: IMPRESSION: 1. Dilated fluid and gas-filled small bowel loops with transition point in the right lower quadrant where there is swirling of mesenteric vessels and small bowel, concerning for volvulus causing obstruction. 2. Wall thickening of the rectum may be secondary to fecal material versus proctitis. 3. Obstructing stone measuring 1.2 cm in the proximal right ureter. Moderate to severe right hydronephrosis. Additional stones in the right kidney and right renal pelvis, measuring up to approximately 1.8 cm and the right renal pelvis. 4. Small amount of free fluid in the pelvis. No abscess identified. (3) Sepsis Assessment & Plan: There is an obstructing stone within the ureter which is causing moderate severe hydronephrosis. The urinalysis demonstrated bacteria similar to that of his bacteremia. Potential etiology of sepsis and above is these obstructing stone. Recommend urological evaluation. Thank you (4) Anemia (5) Proctitis (6) Gastrostomy tube dependent (7) Obstructive hydrocephalus (8) COPD (chronic obstructive pulmonary disease) (9) Diabetes mellitus (10) Gram negative septicemia (11) Aphasia (12) Feeding by G-tube (13) Cellulitis of scrotum (14) History of CVA (cerebrovascular accident) (15) Suprapubic catheter dysfunction (16) Encephalopathy chronic (17) GILDARDO (acute kidney injury) (18) UTI (urinary tract infection) (19) Septic shock (20) History of DVT (deep vein thrombosis) (21) Suprapubic catheter (22) ATN (acute tubular necrosis) Russell Lopez Nov 08, 2018 15:43
--- NOTE | 2018-11-08 16:16 | Nephrology Progress Note ---
Assessment/Plan Problem List: (1) GILDARDO (acute kidney injury) (2) ATN (acute tubular necrosis) (3) Diabetes mellitus (4) COPD (chronic obstructive pulmonary disease) (5) Sepsis Assessment renal function stable Plan await nephrostomy abxs follow labs Subjective Subjective pt is getting a nephrostomy Objective Objective Last 24 Hour Vital Signs Date Time Temp Pulse Resp B/P (MAP) Pulse Ox O2 Delivery O2 Flow Rate FiO2 11/08/18 16:10 91 22 141/92 (108) 96 11/08/18 16:05 92 22 134/81 (98) 96 11/08/18 16:00 92 22 128/90 (103) 98 11/08/18 15:55 90 22 140/93 (109) 98 11/08/18 15:33 88 20 3.0 11/08/18 12:00 98.2 90 20 118/79 (92) 90 11/08/18 12:00 89 11/08/18 09:00 91 11/08/18 09:00 Room Air 11/08/18 08:00 98.7 104 18 116/75 (89) 95 11/08/18 04:00 98.5 98 18 115/71 (86) 97 11/08/18 04:00 96 11/08/18 00:00 Room Air 11/08/18 00:00 105 11/08/18 00:00 98.3 104 18 112/70 (84) 98 11/07/18 20:00 99 11/07/18 20:00 99 11/07/18 20:00 Room Air 11/07/18 20:00 99.9 99 20 128/85 (99) 95 11/07/18 17:23 94 Intake and Output 11/07/18 11/08/18 19:00 07:00 Intake Total 695 ml 220 ml Output Total 550 ml 700 ml Balance 145 ml -480 ml Intake Free Water 180 ml IV Total 55 ml Tube Feeding 515 ml 165 ml Output Urine Total 550 ml 700 ml # Bowel Movements 1 Laboratory Tests 11/08/18 05:45: White Blood Count 10.5, Red Blood Count 3.86L, Hemoglobin 11.1L, Hematocrit 33.8L, Mean Corpuscular Volume 87, Mean Corpuscular Hemoglobin 28.6, Mean Corpuscular Hemoglobin Concent 32.7, Red Cell Distribution Width 14.7, Platelet Count 259, Mean Platelet Volume 6.4L, Neutrophils (%) (Auto) 63.5, Lymphocytes ( %) (Auto) 24.6, Monocytes (%) (Auto) 8.5, Eosinophils (%) (Auto) 1.6, Basophils (%) (Auto) 1.8, Sodium Level 132L, Potassium Level 4.8, Chloride Level 101, Carbon Dioxide Level 27, Anion Gap 5, Blood Urea Nitrogen 19H, Creatinine 1.2, Estimat Glomerular Filtration Rate > 60, Glucose Level 108H, Calcium Level 8.5, Phosphorus Level 3.5, Magnesium Level 2.0, Total Bilirubin 0.3, Aspartate Amino Transf (AST/SGOT) 24, Alanine Aminotransferase (ALT/SGPT) 15, Alkaline Phosphatase 65, Total Protein 9.0H, Albumin 1.9L, Globulin 7.1, Albumin/ Globulin Ratio 0.3L 11/08/18 12:35: Prothrombin Time 11.4, Prothromb Time International Ratio 1.1, Activated Partial Thromboplast Time 31 Height (Feet): 5 Height (Inches): 8.00 Weight (Pounds): 242 Cardiovascular: normal rate Respiratory/Chest: lungs clear Bennie Balbuena MD Nov 08, 2018 16:16
--- NOTE | 2018-11-08 16:23 | Brief Operative Note ---
Immediate Post Operative Note Operative Note Pre-op Diagnosis: obstructive uropathy Procedure: R nephrostomy Post-op Diagnosis: same as pre-op Surgeon: Glenys CURTIS Anesthesia: local Specimen: yes - small amount slightly purulent urine sent for C and S Complications: none Fluids: none Drains: other - 8 F nephrostomy Implant(s) used?: No Harry Curtis MD Nov 08, 2018 16:22
--- NOTE | 2018-11-08 16:40 | NUR ---
NURSE NOTES: Patient returned to floor @ 1630 S/P right nephrostomy tube. Tube to gravity connected to accordion drainage draining milky yellow drainage to blood tinged. VSS no c/o pain or discomfort. Will monitor.
--- NOTE | 2018-11-08 16:41 | Cardiac Electrophysiology PN ---
Assessment/Plan Assessment/Plan 1. S/P Septic Shock and dehydration Lactic acidosis 2.4. Off Levophed and on antibiotics Echo Nl EF. WBC down from 21K to 10 k MRSA and enterococcus bacteremia. TASNEEM rescheduled for Sunday 2. Sinus tach 140s likely due to sepsis with fever. HR better 3. Inferior wall myocardial infarction based on electrocardiogram. Ruled out for myocardial infarction. EF 65% 4. Hypernatremia. 5. Renal failure and obstructive nephropathy. . S/P R Nephrostomy tube placement today 11/08/18 6. CVA with paraplegia. 7. Status post suprapubic catheter. COLLETTE RN Subjective Subjective Just underwent right nephrostomy tube placement. Has MRSA and enterococcus bacteremia. TASNEEM still pending Objective Last 24 Hour Vital Signs Date Time Temp Pulse Resp B/P (MAP) Pulse Ox O2 Delivery O2 Flow Rate FiO2 11/08/18 16:10 91 22 141/92 (108) 96 11/08/18 16:05 92 22 134/81 (98) 96 11/08/18 16:00 92 22 128/90 (103) 98 11/08/18 15:55 90 22 140/93 (109) 98 11/08/18 15:33 88 20 3.0 11/08/18 12:00 98.2 90 20 118/79 (92) 90 11/08/18 12:00 89 11/08/18 09:00 91 11/08/18 09:00 Room Air 11/08/18 08:00 98.7 104 18 116/75 (89) 95 11/08/18 04:00 98.5 98 18 115/71 (86) 97 11/08/18 04:00 96 11/08/18 00:00 Room Air 11/08/18 00:00 105 11/08/18 00:00 98.3 104 18 112/70 (84) 98 11/07/18 20:00 99 11/07/18 20:00 99 11/07/18 20:00 Room Air 11/07/18 20:00 99.9 99 20 128/85 (99) 95 11/07/18 17:23 94 Intake and Output 11/07/18 11/08/18 19:00 07:00 Intake Total 695 ml 220 ml Output Total 550 ml 700 ml Balance 145 ml -480 ml Intake Free Water 180 ml IV Total 55 ml Tube Feeding 515 ml 165 ml Output Urine Total 550 ml 700 ml # Bowel Movements 1 Laboratory Tests Test 11/08/18 05:45 11/08/18 12:35 White Blood Count 10.5 K/UL (4.8-10.8) Red Blood Count 3.86 M/UL (4.70-6.10) L Hemoglobin 11.1 G/DL (14.2-18.0) L Hematocrit 33.8 % (42.0-52.0) L Mean Corpuscular Volume 87 FL (80-99) Mean Corpuscular Hemoglobin 28.6 PG (27.0-31.0) Mean Corpuscular Hemoglobin Concent 32.7 G/DL (32.0-36.0) Red Cell Distribution Width 14.7 % (11.6-14.8) Platelet Count 259 K/UL (150-450) Mean Platelet Volume 6.4 FL (6.5-10.1) L Neutrophils (%) (Auto) 63.5 % (45.0-75.0) Lymphocytes (%) (Auto) 24.6 % (20.0-45.0) Monocytes (%) (Auto) 8.5 % (1.0-10.0) Eosinophils (%) (Auto) 1.6 % (0.0-3.0) Basophils (%) (Auto) 1.8 % (0.0-2.0) Sodium Level 132 MMOL/L (136-145) L Potassium Level 4.8 MMOL/L (3.5-5.1) Chloride Level 101 MMOL/L (98-107) Carbon Dioxide Level 27 MMOL/L (21-32) Anion Gap 5 mmol/L (5-15) Blood Urea Nitrogen 19 mg/dL (7-18) H Creatinine 1.2 MG/DL (0.55-1.30) Estimat Glomerular Filtration Rate > 60 mL/min (>60) Glucose Level 108 MG/DL (74-106) H Calcium Level 8.5 MG/DL (8.5-10.1) Phosphorus Level 3.5 MG/DL (2.5-4.9) Magnesium Level 2.0 MG/DL (1.8-2.4) Total Bilirubin 0.3 MG/DL (0.2-1.0) Aspartate Amino Transf (AST/SGOT) 24 U/L (15-37) Alanine Aminotransferase (ALT/SGPT) 15 U/L (12-78) Alkaline Phosphatase 65 U/L (46-116) Total Protein 9.0 G/DL (6.4-8.2) H Albumin 1.9 G/DL (3.4-5.0) L Globulin 7.1 g/dL Albumin/Globulin Ratio 0.3 (1.0-2.7) L Prothrombin Time 11.4 SEC (9.30-11.50) Prothromb Time International Ratio 1.1 (0.9-1.1) Activated Partial Thromboplast Time 31 SEC (23-33) Objective HEAD AND NECK: No JVD. LUNGS: Coarse rhonchi. CARDIOVASCULAR: Tachy S1, S2 with no gallop. ABDOMEN: Soft, status post suprapubic catheter. EXTREMITIES: Paraplegic with edema Darnell Segundo MD Nov 08, 2018 16:41
--- NOTE | 2018-11-08 16:58 | NUR ---
RIGHT NEPHROSTOMY TUBE PLACED BY . 8.5 MAURITIAN 25 CM
--- NOTE | 2018-11-08 17:30 | Pulmonology Progress Note ---
Assessment/Plan Problems: (1) Septic shock (2) ATN (acute tubular necrosis) (3) COPD (chronic obstructive pulmonary disease) (4) Encephalopathy chronic (5) Obstructive hydrocephalus (6) History of DVT (deep vein thrombosis) (7) Suprapubic catheter (8) Aphasia (9) Feeding by G-tube (10) History of CVA (cerebrovascular accident) Assessment/Plan ding better more stable persistent bacteremia less tachy respiratory treatment titrate fio2 to sat of 92% renal function better. f/u urology recommendations Subjective ROS Limited/Unobtainable: No Constitutional: Reports: no symptoms HEENT: Repors: no symptoms Allergies: Coded Allergies: VANCOMYCIN (Verified Allergy, Mild, Redness , 10/29/18) CIPROFLOXACIN (Verified Allergy, Unknown, 08/23/15) Objective Last 24 Hour Vital Signs Date Time Temp Pulse Resp B/P (MAP) Pulse Ox O2 Delivery O2 Flow Rate FiO2 11/08/18 16:10 91 22 141/92 (108) 96 11/08/18 16:05 92 22 134/81 (98) 96 11/08/18 16:00 92 22 128/90 (103) 98 11/08/18 15:55 90 22 140/93 (109) 98 11/08/18 15:33 88 20 3.0 11/08/18 12:00 98.2 90 20 118/79 (92) 90 11/08/18 12:00 89 11/08/18 09:00 91 11/08/18 09:00 Room Air 11/08/18 08:00 98.7 104 18 116/75 (89) 95 11/08/18 04:00 98.5 98 18 115/71 (86) 97 11/08/18 04:00 96 11/08/18 00:00 Room Air 11/08/18 00:00 105 11/08/18 00:00 98.3 104 18 112/70 (84) 98 11/07/18 20:00 99 11/07/18 20:00 99 11/07/18 20:00 Room Air 11/07/18 20:00 99.9 99 20 128/85 (99) 95 Intake and Output 11/07/18 11/08/18 19:00 07:00 Intake Total 695 ml 220 ml Output Total 550 ml 700 ml Balance 145 ml -480 ml Intake Free Water 180 ml IV Total 55 ml Tube Feeding 515 ml 165 ml Output Urine Total 550 ml 700 ml # Bowel Movements 1 General Appearance: WD/WN HEENT: normocephalic, atraumatic, anicteric Respiratory/Chest: chest wall non-tender, lungs clear Abdomen: normal bowel sounds, soft, non tender Genitourinary: normal external genitalia Extremities: no cyanosis 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: 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 grossly normal Lymphatic: no neck adenopathy Musculoskeletal: normal muscle bulk Laboratory Tests 11/08/18 05:45: White Blood Count 10.5, Red Blood Count 3.86L, Hemoglobin 11.1L, Hematocrit 33.8L, Mean Corpuscular Volume 87, Mean Corpuscular Hemoglobin 28.6, Mean Corpuscular Hemoglobin Concent 32.7, Red Cell Distribution Width 14.7, Platelet Count 259, Mean Platelet Volume 6.4L, Neutrophils (%) (Auto) 63.5, Lymphocytes ( %) (Auto) 24.6, Monocytes (%) (Auto) 8.5, Eosinophils (%) (Auto) 1.6, Basophils (%) (Auto) 1.8, Sodium Level 132L, Potassium Level 4.8, Chloride Level 101, Carbon Dioxide Level 27, Anion Gap 5, Blood Urea Nitrogen 19H, Creatinine 1.2, Estimat Glomerular Filtration Rate > 60, Glucose Level 108H, Calcium Level 8.5, Phosphorus Level 3.5, Magnesium Level 2.0, Total Bilirubin 0.3, Aspartate Amino Transf (AST/SGOT) 24, Alanine Aminotransferase (ALT/SGPT) 15, Alkaline Phosphatase 65, Total Protein 9.0H, Albumin 1.9L, Globulin 7.1, Albumin/ Globulin Ratio 0.3L 11/08/18 12:35: Prothrombin Time 11.4, Prothromb Time International Ratio 1.1, Activated Partial Thromboplast Time 31 Current Medications Medications (Trade) Dose Ordered Sig/Fab Route PRN Reason Start Time Stop Time Status Last Admin Dose Admin Acetaminophen (Tylenol) 650 mg Q4H PRN GT fever (temp>100.5 F) 11/05/18 10:30 11/28/18 17:29 Cefepime HCl 2 gm/ Dextrose 55 ml @ 110 mls/hr EVERY 8 HOURS IVPB 11/02/18 13:00 11/13/18 12:59 11/08/18 14:37 Chlorhexidine Gluconate (Licha-Hex 2%) 1 applic DAILY@2000 TOPIC 11/01/18 20:00 11/29/18 19:59 11/07/18 20:46 Diphenhydramine HCl (Benadryl) 25 mg Q6H PRN IVP Itching 11/01/18 11:30 11/28/18 17:29 11/02/18 03:47 Docusate Sodium (Colace) 100 mg THREE TIMES A DAY GT 11/01/18 18:00 12/01/18 17:59 11/08/18 13:15 Famotidine (Pepcid) 20 mg Q12HR GT 11/05/18 21:00 11/29/18 20:59 11/08/18 09:17 Heparin Sodium (Porcine) (Heparin 5000 units/ml) 5,000 units EVERY 12 HOURS SUBQ 11/01/18 21:00 11/28/18 08:59 11/07/18 20:47 Heparin Sodium/ Sodium Chloride (Heparin 1000 units/500ml Premix) 1,000 unit ONCE PRN INJ PICC 11/08/18 14:57 11/08/18 23:59 Iopamidol (Isovue-300 100ml) 100 ml ONCE PRN INJ RADIOLOGY 11/08/18 11:51 11/08/18 23:59 Lidocaine HCl (Xylocaine 1% 30ml) 30 ml ONCE PRN INJ RADIOLOGY 11/08/18 12:00 11/08/18 23:59 Lidocaine HCl (Xylocaine 1% 30ml) 30 ml ONCE PRN INJ LINE 11/08/18 14:57 11/08/18 23:59 Linezolid (Zyvox) 600 mg EVERY 12 HOURS GT 11/01/18 21:00 11/10/18 20:59 11/08/18 09:17 Midodrine (Pro-Amatine) 10 mg THREE TIMES A DAY GT 11/04/18 13:00 11/29/18 12:59 11/08/18 13:15 Ondansetron HCl (Zofran) 4 mg Q6H PRN IVP Nausea & Vomiting 11/01/18 11:30 11/28/18 17:29 Polyethylene Glycol (Miralax) 17 gm DAILYPRN PRN GT Constipation 11/05/18 10:30 8/24/19 17:29 Rigoberto Bryant MD Nov 08, 2018 17:30
--- NOTE | 2018-11-08 17:41 | Diagnostic Imaging Report ---
Indication: Obstructive right uropathy due to urinary stone disease Technique: Informed consent obtained from patient's niece who has power of civil rights attorney. Prior imaging studies reviewed. Procedure timeout performed. Total sterile technique, including sterile gloves and hand hygiene, hat, mask, sterile gown, large sterile drape, and preparation with 2% chlorhexidine utilized. Deep and superficial local anesthesia with 1% lidocaine. Under real-time ultrasound guidance, a posterior lower pole calyx was punctured using 21-gauge AccuStick needle. Return of cloudy urine was noted. Contrast was injected, confirming needle placement within the collecting system. A 0.018 guidewire was inserted, and the needle was removed. A 6 Bengali AccuStick introducer was then passed over the guidewire and into the renal pelvis. The stiffener and dilator were removed, and a 0.035 guidewire was inserted. The introducer was removed, 0.018 wire left in as a safety wire. Over the guidewire, an 8 Bengali dilator and then an 8 Bengali nephrostomy tube was inserted. The pigtail was formed in the renal pelvis. Contrast was injected, confirming satisfactory position of the nephrostomy. The safety wire was removed. The catheter was fixed to the skin and placed to gravity drainage. The patient tolerated the procedure well, without immediate complication. Total fluoroscopy time 102.2 seconds . Total dose area product [id number] Number of images: 4 Comparison: none Findings: Intraprocedural images demonstrate dilated right renal collecting system. Multiple filling defects are compatible with a calculi demonstrated on recent CT scan Impression: Successful placement of right nephrostomy tube, as described, under fluoroscopic and sonographic guidance
--- NOTE | 2018-11-08 19:21 | NUR ---
HAND-OFF: Report given to Sharda Monae. Patient Resting comfortabley at bedside. Right nephrostomy tube clean and intact, draining cortez milky drainage. PLan of care endorsed to Rn.
--- NOTE | 2018-11-08 19:30 | NUR ---
NURSE NOTES: Received patient from Rachelle CHRISTOPHER. Patient in bed, on room air, no s/s of respiratory distress. Right flank nephrostomy tube intact and patent with cranberry color output. Suprapubic catheter intact. Patient refused to have nurse check G tube, and just kept yelling "no, no, no, no!!" Patient refused to have IV site checked. Responded by saying "no, no, no, no!!" Pushed nurse's hand away with his left hand. Glucern 1.5 running at 55ml/hr. Will try to assess patient later.
--- NOTE | 2018-11-08 20:30 | NUR ---
NURSE NOTES: Patient still refusing care from nurse. Refusing assessment, medications, vitals, keeps yelling "no, no, no, no" and gesturing with his left arm to go away.
[2018-11-08] MEDS: Dyna-Hex 2% Top Sol 2oz TOPIC SCH (20:49)
--- NOTE | 2018-11-08 22:30 | NUR ---
NURSE NOTES: Patient was cooperative and allowed 2100 medications to be administered.
--- NOTE | 2018-11-08 23:30 | NUR ---
NURSE NOTES: Patient more calm and cooperative. Checked residual from G tube, 150ml, placed tube feeding on hold. Suprapubic catheter intact, no leakage. Right nephrostomy intact and draining.
[2018-11-09] VITALS: BP 103/73
[2018-11-09 04:00] VITALS: BP 104/75
[2018-11-09] MEDS: Cefepime HCl 2 GM in D5W 55 ML IVPB SCH ×3 (05:27→21:40)
--- NOTE | 2018-11-09 06:00 | NUR ---
NURSE NOTES: No residual from G tube, restarted TF at 20ml/hr. 175ml of output from Right nephrostomy.
--- NOTE | 2018-11-09 07:20 | NUR ---
NURSE NOTES: Received patient from CANDI Monae. Patient is AAO x 1 and labile. Patient in bed, on room air, no s/s of respiratory distress. Patient is on panel monitor. Right flank nephrostomy tube intact and patent with cranberry color output. Suprapubic catheter intact. Noted no 10ml residual at 7:20am. IV site is patent and intact on left hand 22g. Glucerna 1.5 was running at 20 ml/hr. Patient on p200 matress. Noted bilateral legs contracture. Will follow up with plan of care.
--- NOTE | 2018-11-09 07:30 | NUR ---
HAND-OFF: Report given to Nicolas CHRISTOPHER.
[2018-11-09 07:37] LABS: EOSINOPHILS % (AUTO) 0.9 % (0.0-3.0); HEMATOCRIT 34.4 % (42.0-52.0); LYMPHOCYTES % (AUTO) 29.9 % (20.0-45.0); MEAN CORPUSCULAR VOLUME 88 FL (80-99); MONOCYTES % (AUTO) 7.2 % (1.0-10.0); PLATELET COUNT 316 K/UL (150-450); RED BLOOD COUNT 3.91 M/UL (4.70-6.10); RED CELL DISTRIBUTION WIDTH 14.4 % (11.6-14.8); WHITE BLOOD COUNT 9.2 K/UL (4.8-10.8)
[2018-11-09 07:53] LABS: ANION GAP 7 mmol/L (5-15); BLOOD UREA NITROGEN 21 mg/dL (7-18); CALCIUM 8.7 MG/DL (8.5-10.1); CARBON DIOXIDE 25 MMOL/L (21-32); CHLORIDE 101 MMOL/L (98-107); CREATININE 1.2 MG/DL (0.55-1.30); POTASSIUM 4.5 MMOL/L (3.5-5.1); SODIUM 133 MMOL/L (136-145)
[2018-11-09 08:00] VITALS: BP 98/69
--- NOTE | 2018-11-09 08:53 | General Progress Note ---
Assessment/Plan Problem List: (1) Obstructive hydrocephalus ICD Codes: G91.1 - Obstructive hydrocephalus SNOMED: 548431687 (2) COPD (chronic obstructive pulmonary disease) ICD Codes: J44.9 - Chronic obstructive pulmonary disease, unspecified SNOMED: 99780969 (3) Diabetes mellitus ICD Codes: E11.9 - Type 2 diabetes mellitus without complications SNOMED: 56797087 (4) Feeding by G-tube ICD Codes: Z93.1 - Gastrostomy status SNOMED: 172110678, 577875630 (5) Sepsis ICD Codes: A41.9 - Sepsis, unspecified organism SNOMED: 52254624 (6) History of CVA (cerebrovascular accident) ICD Codes: Z86.73 - Personal history of transient ischemic attack (TIA), and cerebral infarction without residual deficits SNOMED: 778796851 (7) Encephalopathy chronic ICD Codes: G93.49 - Other encephalopathy SNOMED: 85488146 (8) UTI (urinary tract infection) ICD Codes: N39.0 - Urinary tract infection, site not specified SNOMED: 52215168 Qualifiers: Qualified Codes: N30.00 - Acute cystitis without hematuria (9) Septic shock ICD Codes: A41.9 - Sepsis, unspecified organism; R65.21 - Severe sepsis with septic shock SNOMED: 20045235 (10) ATN (acute tubular necrosis) ICD Codes: N17.0 - Acute kidney failure with tubular necrosis SNOMED: 70419023 Status: stable, progressing Assessment/Plan: o2 pulm tx abx bp control cbc bmp am aru eval Subjective Constitutional: Reports: weakness Allergies: Coded Allergies: VANCOMYCIN (Verified Allergy, Mild, Redness , 10/29/18) CIPROFLOXACIN (Verified Allergy, Unknown, 08/23/15) All Systems: reviewed and negative except above Subjective sleepy calm Objective Last 24 Hour Vital Signs Date Time Temp Pulse Resp B/P (MAP) Pulse Ox O2 Delivery O2 Flow Rate FiO2 11/09/18 08:00 97.5 92 20 98/69 (79) 98 11/09/18 04:00 98.2 92 18 104/75 (85) 98 11/09/18 03:34 95 11/09/18 00:00 97.6 94 18 103/73 (83) 96 11/08/18 23:29 104 11/08/18 21:00 Room Air 11/08/18 20:05 66 11/08/18 19:40 97.2 86 18 117/77 (90) 95 11/08/18 18:27 97.6 73 16 103/66 (78) 95 11/08/18 17:50 97.6 17 100/64 (76) 96 11/08/18 17:20 97.6 18 118/60 (79) 96 11/08/18 17:05 97.8 18 116/81 (93) 98 11/08/18 16:50 97.8 20 116/83 (94) 96 11/08/18 16:40 90 11/08/18 16:35 18 116/83 (94) 96 11/08/18 16:10 91 22 141/92 (108) 96 11/08/18 16:05 92 22 134/81 (98) 96 11/08/18 16:00 92 22 128/90 (103) 98 11/08/18 15:55 90 22 140/93 (109) 98 11/08/18 15:33 88 20 3.0 11/08/18 12:00 98.2 90 20 118/79 (92) 90 11/08/18 12:00 89 11/08/18 09:00 91 11/08/18 09:00 Room Air Intake and Output 11/08/18 11/09/18 18:59 06:59 Output Total 900 ml 520 ml Balance -900 ml -520 ml Output Urine Total 900 ml 520 ml # Bowel Movements 1 Laboratory Tests 11/08/18 12:35: Prothrombin Time 11.4, Prothromb Time International Ratio 1.1, Activated Partial Thromboplast Time 31 11/09/18 05:58: White Blood Count 9.2, Red Blood Count 3.91L, Hemoglobin 11.0L, Hematocrit 34.4L , Mean Corpuscular Volume 88, Mean Corpuscular Hemoglobin 28.1, Mean Corpuscular Hemoglobin Concent 32.0, Red Cell Distribution Width 14.4, Platelet Count 316, Mean Platelet Volume 6.3L, Neutrophils (%) (Auto) 61.0, Lymphocytes ( %) (Auto) 29.9, Monocytes (%) (Auto) 7.2, Eosinophils (%) (Auto) 0.9, Basophils (%) (Auto) 1.0, Sodium Level 133L, Potassium Level 4.5, Chloride Level 101, Carbon Dioxide Level 25, Anion Gap 7, Blood Urea Nitrogen 21H, Creatinine 1.2, Estimat Glomerular Filtration Rate > 60, Glucose Level 123H, Calcium Level 8.7 Height (Feet): 5 Height (Inches): 8.00 Weight (Pounds): 242 General Appearance: lethargic EENT: normal ENT inspection Neck: normal alignment Cardiovascular: normal peripheral pulses, normal rate, regular rhythm Respiratory/Chest: chest wall non-tender, lungs clear, normal breath sounds Abdomen: normal bowel sounds, non tender, soft Extremities: normal inspection Edema: no edema noted Arm (L), no edema noted Arm (R), no edema noted Leg (L), no edema noted Leg (R), no edema noted Pedal (L), no edema noted Pedal (R), no edema noted Generalized Neurologic: motor weakness Skin: normal pigmentation, warm/dry Jaylen Bear DO Nov 09, 2018 08:53
--- NOTE | 2018-11-09 09:22 | General Progress Note ---
Assessment/Plan Status: stable, progressing Assessment/Plan: (1) Aphasia ICD Codes: R47.01 - Aphasia SNOMED: 22324214 (2) Anemia ICD Codes: D64.9 - Anemia, unspecified SNOMED: 133011045 (3) Fecal impaction ICD Codes: K56.41 - Fecal impaction SNOMED: 44270580 (4) Proctitis ICD Codes: K62.89 - Other specified diseases of anus and rectum SNOMED: 5684058 (5) Volvulus ICD Codes: K56.2 - Volvulus SNOMED: 6544611 Status: stable, unchanged Status Narrative Discussed with Dr. Faust Assessment/Plan SBFT negative OB stool negative Anemia work-up reviewed Prevacid Monitor H&H, PRN transfusions Bowel regimen turn q2 hours Follow-up labs add reglan increase GTF as tolerated to goal rate s/p nephrostomy tube placement Subjective ROS Limited/Unobtainable: No Allergies: Coded Allergies: VANCOMYCIN (Verified Allergy, Mild, Redness , 10/29/18) CIPROFLOXACIN (Verified Allergy, Unknown, 08/23/15) Objective Last 24 Hour Vital Signs Date Time Temp Pulse Resp B/P (MAP) Pulse Ox O2 Delivery O2 Flow Rate FiO2 11/09/18 08:00 97.5 92 20 98/69 (79) 98 11/09/18 04:00 98.2 92 18 104/75 (85) 98 11/09/18 03:34 95 11/09/18 00:00 97.6 94 18 103/73 (83) 96 11/08/18 23:29 104 11/08/18 21:00 Room Air 11/08/18 20:05 66 11/08/18 19:40 97.2 86 18 117/77 (90) 95 11/08/18 18:27 97.6 73 16 103/66 (78) 95 11/08/18 17:50 97.6 17 100/64 (76) 96 11/08/18 17:20 97.6 18 118/60 (79) 96 11/08/18 17:05 97.8 18 116/81 (93) 98 11/08/18 16:50 97.8 20 116/83 (94) 96 11/08/18 16:40 90 11/08/18 16:35 18 116/83 (94) 96 11/08/18 16:10 91 22 141/92 (108) 96 11/08/18 16:05 92 22 134/81 (98) 96 11/08/18 16:00 92 22 128/90 (103) 98 11/08/18 15:55 90 22 140/93 (109) 98 11/08/18 15:33 88 20 3.0 11/08/18 12:00 98.2 90 20 118/79 (92) 90 11/08/18 12:00 89 Intake and Output 11/08/18 11/09/18 18:59 06:59 Output Total 900 ml 520 ml Balance -900 ml -520 ml Output Urine Total 900 ml 520 ml # Bowel Movements 1 Laboratory Tests 11/08/18 12:35: Prothrombin Time 11.4, Prothromb Time International Ratio 1.1, Activated Partial Thromboplast Time 31 11/09/18 05:58: White Blood Count 9.2, Red Blood Count 3.91L, Hemoglobin 11.0L, Hematocrit 34.4L , Mean Corpuscular Volume 88, Mean Corpuscular Hemoglobin 28.1, Mean Corpuscular Hemoglobin Concent 32.0, Red Cell Distribution Width 14.4, Platelet Count 316, Mean Platelet Volume 6.3L, Neutrophils (%) (Auto) 61.0, Lymphocytes ( %) (Auto) 29.9, Monocytes (%) (Auto) 7.2, Eosinophils (%) (Auto) 0.9, Basophils (%) (Auto) 1.0, Sodium Level 133L, Potassium Level 4.5, Chloride Level 101, Carbon Dioxide Level 25, Anion Gap 7, Blood Urea Nitrogen 21H, Creatinine 1.2, Estimat Glomerular Filtration Rate > 60, Glucose Level 123H, Calcium Level 8.7 Height (Feet): 5 Height (Inches): 8.00 Weight (Pounds): 242 General Appearance: no apparent distress EENT: normal ENT inspection Neck: supple Cardiovascular: normal rate Respiratory/Chest: decreased breath sounds Abdomen: normal bowel sounds, non tender, soft Extremities: non-tender Deep Faust MD Nov 09, 2018 09:22
[2018-11-09] MEDS: Docusate 100mg/10ml Liq GT SCH ×3 (09:33→18:04)
[2018-11-09] MEDS: Midodrine 10mg tab GT SCH ×3 (09:33→18:04)
[2018-11-09] MEDS: Heparin 5000 units/ml inj SUBQ SCH ×2 (09:34→21:39)
[2018-11-09] MEDS: Metoclopramide 10mg/10ml Liq NG SCH ×2 (11:57→18:04)
[2018-11-09 12:00] VITALS: BP 93/74
--- NOTE | 2018-11-09 12:06 | Surgery Progress Note ---
Surgery Progress Note Subjective Additional Comments s/p right nephrostomy tube placement labs noted exam stable Objective Last 24 Hour Vital Signs Date Time Temp Pulse Resp B/P (MAP) Pulse Ox O2 Delivery O2 Flow Rate FiO2 11/09/18 09:00 Room Air 11/09/18 08:00 97.5 92 20 98/69 (79) 98 11/09/18 07:51 95 11/09/18 04:00 98.2 92 18 104/75 (85) 98 11/09/18 03:34 95 11/09/18 00:00 97.6 94 18 103/73 (83) 96 11/08/18 23:29 104 11/08/18 21:00 Room Air 11/08/18 20:05 66 11/08/18 19:40 97.2 86 18 117/77 (90) 95 11/08/18 18:27 97.6 73 16 103/66 (78) 95 11/08/18 17:50 97.6 17 100/64 (76) 96 11/08/18 17:20 97.6 18 118/60 (79) 96 11/08/18 17:05 97.8 18 116/81 (93) 98 11/08/18 16:50 97.8 20 116/83 (94) 96 11/08/18 16:40 90 11/08/18 16:35 18 116/83 (94) 96 11/08/18 16:10 91 22 141/92 (108) 96 11/08/18 16:05 92 22 134/81 (98) 96 11/08/18 16:00 92 22 128/90 (103) 98 11/08/18 15:55 90 22 140/93 (109) 98 11/08/18 15:33 88 20 3.0 I&O Intake and Output 11/08/18 11/09/18 19:00 07:00 Output Total 900 ml 695 ml Balance -900 ml -695 ml Output Urine Total 900 ml 520 ml Other 175 ml # Bowel Movements 1 Dressing: dry Wound: clean Drains: other Cardiovascular: RSR Respiratory: clear Abdomen: soft, present bowel sounds, non-distended Extremities: no tenderness, no cyanosis Laboratory Tests Test 11/08/18 12:35 11/09/18 05:58 Prothrombin Time 11.4 SEC (9.30-11.50) Prothromb Time International Ratio 1.1 (0.9-1.1) Activated Partial Thromboplast Time 31 SEC (23-33) White Blood Count 9.2 K/UL (4.8-10.8) Red Blood Count 3.91 M/UL (4.70-6.10) L Hemoglobin 11.0 G/DL (14.2-18.0) L Hematocrit 34.4 % (42.0-52.0) L Mean Corpuscular Volume 88 FL (80-99) Mean Corpuscular Hemoglobin 28.1 PG (27.0-31.0) Mean Corpuscular Hemoglobin Concent 32.0 G/DL (32.0-36.0) Red Cell Distribution Width 14.4 % (11.6-14.8) Platelet Count 316 K/UL (150-450) Mean Platelet Volume 6.3 FL (6.5-10.1) L Neutrophils (%) (Auto) 61.0 % (45.0-75.0) Lymphocytes (%) (Auto) 29.9 % (20.0-45.0) Monocytes (%) (Auto) 7.2 % (1.0-10.0) Eosinophils (%) (Auto) 0.9 % (0.0-3.0) Basophils (%) (Auto) 1.0 % (0.0-2.0) Sodium Level 133 MMOL/L (136-145) L Potassium Level 4.5 MMOL/L (3.5-5.1) Chloride Level 101 MMOL/L (98-107) Carbon Dioxide Level 25 MMOL/L (21-32) Anion Gap 7 mmol/L (5-15) Blood Urea Nitrogen 21 mg/dL (7-18) H Creatinine 1.2 MG/DL (0.55-1.30) Estimat Glomerular Filtration Rate > 60 mL/min (>60) Glucose Level 123 MG/DL (74-106) H Calcium Level 8.7 MG/DL (8.5-10.1) Plan Problems: (1) Volvulus Assessment & Plan: This is a 58-year-old male currently admitted for work-up of sepsis who was identified to have a leukocytosis, tachycardia, bacteremia. Patient is currently on IV antibiotics and slowly improving. On recent CT scan he was identified to have a potential volvulus. On examination clinically patient does not seem to have volvulus or bowel obstruction. His abdomen is soft nondistended nontender and with positive bowel sounds. He is tolerating tube feeds through his G-tube and having bowel movements and passing flatus. Swirling of the mesentery noted on CT scan concerning and will follow with serial exams and recommendations. For now okay to continue with tube feeds. Thank you for this consultation Small bowel series noted. No obstruction noted. okay for diet will monitor (2) Fecal impaction Assessment & Plan: IMPRESSION: 1. Dilated fluid and gas-filled small bowel loops with transition point in the right lower quadrant where there is swirling of mesenteric vessels and small bowel, concerning for volvulus causing obstruction. 2. Wall thickening of the rectum may be secondary to fecal material versus proctitis. 3. Obstructing stone measuring 1.2 cm in the proximal right ureter. Moderate to severe right hydronephrosis. Additional stones in the right kidney and right renal pelvis, measuring up to approximately 1.8 cm and the right renal pelvis. 4. Small amount of free fluid in the pelvis. No abscess identified. (3) Sepsis Assessment & Plan: There is an obstructing stone within the ureter which is causing moderate severe hydronephrosis. The urinalysis demonstrated bacteria similar to that of his bacteremia. Potential etiology of sepsis and above is these obstructing stone. appreciate urological evaluation. nephrostomy tube placed cont with current care plan Thank you (4) Anemia (5) Proctitis (6) Gastrostomy tube dependent (7) Obstructive hydrocephalus (8) COPD (chronic obstructive pulmonary disease) (9) Diabetes mellitus (10) Gram negative septicemia (11) Aphasia (12) Feeding by G-tube (13) Cellulitis of scrotum (14) History of CVA (cerebrovascular accident) (15) Suprapubic catheter dysfunction (16) Encephalopathy chronic (17) GILDARDO (acute kidney injury) (18) UTI (urinary tract infection) (19) Septic shock (20) History of DVT (deep vein thrombosis) (21) Suprapubic catheter (22) ATN (acute tubular necrosis) Russell Lopez Nov 09, 2018 12:06
--- NOTE | 2018-11-09 14:56 | Cardiology Report ---
APPROVED REPORT EKG Measurement Heart [id number] RI [id number] [id number] Normal sinus rhythm Left axis deviation Low voltage QRS Inferior infarct, age undetermined Cannot rule out Anterior infarct, age undetermined Abnormal ECG
--- NOTE | 2018-11-09 15:02 | Cardiac Electrophysiology PN ---
Assessment/Plan Assessment/Plan 1. S/P Septic Shock and dehydration Lactic acidosis 2.4. Off Levophed and on antibiotics Echo Nl EF. WBC down from 21K to 10 k MRSA and enterococcus bacteremia. TASNEEM rescheduled for Sunday 2. Sinus tach 140s likely due to sepsis with fever. HR better 3. Inferior wall myocardial infarction based on electrocardiogram. Ruled out for myocardial infarction. EF 65% 4. Hypernatremia. 5. Renal failure and obstructive nephropathy. S/P R Nephrostomy tube placement on 11/08/18 6. CVA with paraplegia. 7. Status post suprapubic catheter. COLLETTE RN Subjective Subjective Just underwent right nephrostomy tube placement. TASNEEM still pending Objective Last 24 Hour Vital Signs Date Time Temp Pulse Resp B/P (MAP) Pulse Ox O2 Delivery O2 Flow Rate FiO2 11/09/18 12:00 97.6 96 20 93/74 (80) 97 11/09/18 11:48 83 11/09/18 09:00 Room Air 11/09/18 08:00 97.5 92 20 98/69 (79) 98 11/09/18 07:51 95 11/09/18 04:00 98.2 92 18 104/75 (85) 98 11/09/18 03:34 95 11/09/18 00:00 97.6 94 18 103/73 (83) 96 11/08/18 23:29 104 11/08/18 21:00 Room Air 11/08/18 20:05 66 11/08/18 19:40 97.2 86 18 117/77 (90) 95 11/08/18 18:27 97.6 73 16 103/66 (78) 95 11/08/18 17:50 97.6 17 100/64 (76) 96 11/08/18 17:20 97.6 18 118/60 (79) 96 11/08/18 17:05 97.8 18 116/81 (93) 98 11/08/18 16:50 97.8 20 116/83 (94) 96 11/08/18 16:40 90 11/08/18 16:35 18 116/83 (94) 96 11/08/18 16:10 91 22 141/92 (108) 96 11/08/18 16:05 92 22 134/81 (98) 96 11/08/18 16:00 92 22 128/90 (103) 98 11/08/18 15:55 90 22 140/93 (109) 98 11/08/18 15:33 88 20 3.0 Intake and Output 11/08/18 11/09/18 19:00 07:00 Output Total 900 ml 695 ml Balance -900 ml -695 ml Output Urine Total 900 ml 520 ml Other 175 ml # Bowel Movements 1 Laboratory Tests Test 11/09/18 05:58 White Blood Count 9.2 K/UL (4.8-10.8) Red Blood Count 3.91 M/UL (4.70-6.10) L Hemoglobin 11.0 G/DL (14.2-18.0) L Hematocrit 34.4 % (42.0-52.0) L Mean Corpuscular Volume 88 FL (80-99) Mean Corpuscular Hemoglobin 28.1 PG (27.0-31.0) Mean Corpuscular Hemoglobin Concent 32.0 G/DL (32.0-36.0) Red Cell Distribution Width 14.4 % (11.6-14.8) Platelet Count 316 K/UL (150-450) Mean Platelet Volume 6.3 FL (6.5-10.1) L Neutrophils (%) (Auto) 61.0 % (45.0-75.0) Lymphocytes (%) (Auto) 29.9 % (20.0-45.0) Monocytes (%) (Auto) 7.2 % (1.0-10.0) Eosinophils (%) (Auto) 0.9 % (0.0-3.0) Basophils (%) (Auto) 1.0 % (0.0-2.0) Sodium Level 133 MMOL/L (136-145) L Potassium Level 4.5 MMOL/L (3.5-5.1) Chloride Level 101 MMOL/L (98-107) Carbon Dioxide Level 25 MMOL/L (21-32) Anion Gap 7 mmol/L (5-15) Blood Urea Nitrogen 21 mg/dL (7-18) H Creatinine 1.2 MG/DL (0.55-1.30) Estimat Glomerular Filtration Rate > 60 mL/min (>60) Glucose Level 123 MG/DL (74-106) H Calcium Level 8.7 MG/DL (8.5-10.1) Objective HEAD AND NECK: No JVD. LUNGS: Coarse rhonchi. CARDIOVASCULAR: Tachy S1, S2 with no gallop. ABDOMEN: Soft, status post suprapubic catheter. EXTREMITIES: Paraplegic with edema Darnell Segundo MD Nov 09, 2018 15:02
--- NOTE | 2018-11-09 15:57 | NUR ---
CASE MANAGEMENT: REVIEW 58Y/M [facility]ST[facility] FROM [facility] CC: AMS SI: SEPTIC . UTI . FECAL IMPACTION . VOLVULUS . OBSTRUCTIVE UROPATHY RIGHT NEPHROSTOMY TUBE PLACEMENT 11/08 T 97.5 HR 92 RR 20 BP 93/74 SAT 97% ROOM AIR H/H 11.0/34.4 NA 133 BUN 21 IS: MASON GT Q6HR PEPCID GT Q12HR CEFEPIME IV Q8HR HEPARIN SUBQ Q12HR ZYVOX GT Q12HR PATIENT ADMITTED TO TELEMETRY UNIT 11/09/2018 DCP: PATIENT IS FROM [facility]
[2018-11-09 16:00] VITALS: BP 105/72
--- NOTE | 2018-11-09 19:10 | NUR ---
HAND-OFF: Report given to CANDI Ramirez. Patient resting in bed.
--- NOTE | 2018-11-09 19:10 | NUR ---
NURSE NOTES: Received report from CANDI Valenzuela. Patient awake and verbally responsive with simple word to let his needs known. Breathing unlabored and evenly without distress, discomfort, or sob on room air. Denies pain at this time. Patient on continuous cardiac monitoring per protocol. G-tube site noted patent and running glucerna at 30cc/hr. No residual, tolerating well at this time. Suprapubic cath draining yellow urine. Right nephrostomy patent and draining properly. IV site noted on the left hand. Patient on p200 matress. Bed placed at the lowest with brakes, alarms, and side rails up x 2 for safety measures. Will continue to monitor and provide care as ordered. Addendum: 11/09/18 at 2017 by Estuardo Rivera RN NURSE NOTES: Call light placed within reach.
[2018-11-09 20:00] VITALS: BP 127/73
--- NOTE | 2018-11-09 20:21 | Nephrology Progress Note ---
Assessment/Plan Problem List: (1) GILDARDO (acute kidney injury) (2) Diabetes mellitus (3) COPD (chronic obstructive pulmonary disease) (4) Sepsis (5) Obstructive uropathy Assessment renal function stable Plan abxs follow labs Subjective Subjective In NAD Objective Objective Last 24 Hour Vital Signs Date Time Temp Pulse Resp B/P (MAP) Pulse Ox O2 Delivery O2 Flow Rate FiO2 11/09/18 16:00 97.3 85 20 105/72 (83) 97 11/09/18 15:24 81 11/09/18 12:00 97.6 96 20 93/74 (80) 97 11/09/18 11:48 83 11/09/18 09:00 Room Air 11/09/18 08:00 97.5 92 20 98/69 (79) 98 11/09/18 07:51 95 11/09/18 04:00 98.2 92 18 104/75 (85) 98 11/09/18 03:34 95 11/09/18 00:00 97.6 94 18 103/73 (83) 96 11/08/18 23:29 104 11/08/18 21:00 Room Air Intake and Output 11/08/18 11/09/18 19:00 07:00 Output Total 900 ml 695 ml Balance -900 ml -695 ml Output Urine Total 900 ml 520 ml Other 175 ml # Bowel Movements 1 Laboratory Tests 11/09/18 05:58: White Blood Count 9.2, Red Blood Count 3.91L, Hemoglobin 11.0L, Hematocrit 34.4L , Mean Corpuscular Volume 88, Mean Corpuscular Hemoglobin 28.1, Mean Corpuscular Hemoglobin Concent 32.0, Red Cell Distribution Width 14.4, Platelet Count 316, Mean Platelet Volume 6.3L, Neutrophils (%) (Auto) 61.0, Lymphocytes ( %) (Auto) 29.9, Monocytes (%) (Auto) 7.2, Eosinophils (%) (Auto) 0.9, Basophils (%) (Auto) 1.0, Sodium Level 133L, Potassium Level 4.5, Chloride Level 101, Carbon Dioxide Level 25, Anion Gap 7, Blood Urea Nitrogen 21H, Creatinine 1.2, Estimat Glomerular Filtration Rate > 60, Glucose Level 123H, Calcium Level 8.7 Height (Feet): 5 Height (Inches): 8.00 Weight (Pounds): 242 Cardiovascular: normal rate Respiratory/Chest: lungs clear Bennie Balbuena MD Nov 09, 2018 20:21
--- NOTE | 2018-11-09 21:09 | NUR ---
NURSE NOTES: Patient's previous IV on the left hand showed redness around the surrounding and patient said "hurt" when flushing the IV to check the patency. Confirmed with patient to place a new IV and discontinue the old IV site. Explained the procedure before and during. Placed new IV on the right forearm 22g, with good blood draw back and no resistance and no pain when flushing. Patient tolerated the procedure well. Will continue to monitor.
[2018-11-09] MEDS: Dyna-Hex 2% Top Sol 2oz TOPIC SCH (21:50)
[2018-11-10] VITALS: BP 142/84
[2018-11-10] MEDS: Metoclopramide 10mg/10ml Liq NG SCH ×5 (01:05→23:45)
[2018-11-10] MEDS ORDERED: Acetaminophen 650mg/20.3ml GT PRN (02:30)
[2018-11-10 04:00] VITALS: BP 127/68
[2018-11-10] MEDS ORDERED: DiphenhydrAMINE 50mg/ml Inj IVP PRN (05:30)
[2018-11-10] MEDS: Cefepime HCl 2 GM in D5W 55 ML IVPB SCH ×3 (06:02→21:48)
--- NOTE | 2018-11-10 06:14 | General Progress Note ---
Assessment/Plan Status: stable, progressing Assessment/Plan: (1) Aphasia ICD Codes: R47.01 - Aphasia SNOMED: 16505897 (2) Anemia ICD Codes: D64.9 - Anemia, unspecified SNOMED: 433313509 (3) Fecal impaction ICD Codes: K56.41 - Fecal impaction SNOMED: 77129100 (4) Proctitis ICD Codes: K62.89 - Other specified diseases of anus and rectum SNOMED: 7450217 (5) Volvulus ICD Codes: K56.2 - Volvulus SNOMED: 7720295 Status: stable, unchanged Status Narrative Discussed with Dr. Faust Assessment/Plan SBFT negative OB stool negative Anemia work-up reviewed Prevacid Monitor H&H, PRN transfusions Bowel regimen turn q2 hours Follow-up labs on low dose reglan increase GTF as tolerated to goal rate s/p nephrostomy tube placement Subjective ROS Limited/Unobtainable: Yes Allergies: Coded Allergies: VANCOMYCIN (Verified Allergy, Mild, Redness , 10/29/18) CIPROFLOXACIN (Verified Allergy, Unknown, 08/23/15) Objective Last 24 Hour Vital Signs Date Time Temp Pulse Resp B/P (MAP) Pulse Ox O2 Delivery O2 Flow Rate FiO2 11/10/18 04:00 98.1 99 16 127/68 (87) 98 11/10/18 04:00 103 11/10/18 00:00 100 18 142/84 (103) 96 11/10/18 00:00 91 11/09/18 21:00 Room Air 11/09/18 20:00 98.1 91 20 127/73 (91) 95 11/09/18 20:00 94 11/09/18 16:00 97.3 85 20 105/72 (83) 97 11/09/18 15:24 81 11/09/18 12:00 97.6 96 20 93/74 (80) 97 11/09/18 11:48 83 11/09/18 09:00 Room Air 11/09/18 08:00 97.5 92 20 98/69 (79) 98 11/09/18 07:51 95 Intake and Output 11/09/18 11/10/18 19:00 07:00 Intake Total 270 ml Output Total 600 ml Balance -330 ml Tube Feeding 270 ml Output Urine Total 250 ml Other 350 ml Height (Feet): 5 Height (Inches): 8.00 Weight (Pounds): 242 General Appearance: no apparent distress EENT: normal ENT inspection Neck: supple Cardiovascular: normal rate Respiratory/Chest: decreased breath sounds Abdomen: normal bowel sounds, non tender, soft Extremities: non-tender Deep Faust MD Nov 10, 2018 06:14
--- NOTE | 2018-11-10 06:45 | NUR ---
NURSE NOTES: Called patient's niece Diann Crain to receive a verbal consent on Transesophageal Echocardiogram scheduled for Sunday. Was not able to reach the patient at this moment. Left a voice massage to be called back.
--- NOTE | 2018-11-10 07:51 | NUR ---
NURSE NOTES: Received report from CANDI Ramirez. Patient in bed resting, no active cardiac, respiratory distress noticed at this time. Patient AOx1, ST with HR 103. Patient on room air, Suprapubic catheter draining well to gravity, nephrostomy tube in place, draining. Patient on g-tube feeding, Glucerna 1.5 running at 55ml/h at this time. Endorsed TASNEEM schedule for tomorrow, need of consent. IV on right FA 22G, asymptomatic, patent, intact. Bed in lowest position, side rails upx2, padded, call light within reach. Will continue to monitor.
--- NOTE | 2018-11-10 07:55 | NUR ---
HAND-OFF: Report given to Darius Iraheta RN. Patient in bed with no S/S of distress. Endorsed plan of care.
[2018-11-10 08:00] VITALS: BP 100/68
[2018-11-10 08:13] LABS: BASOPHILS % (AUTO) 1.7 % (0.0-2.0); EOSINOPHILS % (AUTO) 0.9 % (0.0-3.0); HEMATOCRIT 33.3 % (42.0-52.0); HEMOGLOBIN 10.7 G/DL (14.2-18.0); LYMPHOCYTES % (AUTO) 29.7 % (20.0-45.0); MEAN CORPUSCULAR VOLUME 88 FL (80-99); MONOCYTES % (AUTO) 10.3 % (1.0-10.0); NEUTROPHILS % (AUTO) 57.4 % (45.0-75.0); PLATELET COUNT 341 K/UL (150-450); RED BLOOD COUNT 3.78 M/UL (4.70-6.10); RED CELL DISTRIBUTION WIDTH 14.3 % (11.6-14.8); WHITE BLOOD COUNT 9.5 K/UL (4.8-10.8)
--- NOTE | 2018-11-10 08:52 | General Progress Note ---
Assessment/Plan Problem List: (1) Obstructive hydrocephalus ICD Codes: G91.1 - Obstructive hydrocephalus SNOMED: 643924389 (2) COPD (chronic obstructive pulmonary disease) ICD Codes: J44.9 - Chronic obstructive pulmonary disease, unspecified SNOMED: 49286961 (3) Diabetes mellitus ICD Codes: E11.9 - Type 2 diabetes mellitus without complications SNOMED: 80444170 (4) Feeding by G-tube ICD Codes: Z93.1 - Gastrostomy status SNOMED: 314805013, 691208397 (5) Sepsis ICD Codes: A41.9 - Sepsis, unspecified organism SNOMED: 38329810 (6) History of CVA (cerebrovascular accident) ICD Codes: Z86.73 - Personal history of transient ischemic attack (TIA), and cerebral infarction without residual deficits SNOMED: 718384452 (7) Encephalopathy chronic ICD Codes: G93.49 - Other encephalopathy SNOMED: 43574118 (8) UTI (urinary tract infection) ICD Codes: N39.0 - Urinary tract infection, site not specified SNOMED: 61133773 Qualifiers: Qualified Codes: N30.00 - Acute cystitis without hematuria (9) Septic shock ICD Codes: A41.9 - Sepsis, unspecified organism; R65.21 - Severe sepsis with septic shock SNOMED: 28870685 (10) ATN (acute tubular necrosis) ICD Codes: N17.0 - Acute kidney failure with tubular necrosis SNOMED: 99041708 Status: stable, progressing Assessment/Plan: o2 pulm tx abx bp control cbc bmp am aru eval Subjective Constitutional: Reports: weakness Allergies: Coded Allergies: VANCOMYCIN (Verified Allergy, Mild, Redness , 10/29/18) CIPROFLOXACIN (Verified Allergy, Unknown, 08/23/15) All Systems: reviewed and negative except above Subjective sleepy calm Objective Last 24 Hour Vital Signs Date Time Temp Pulse Resp B/P (MAP) Pulse Ox O2 Delivery O2 Flow Rate FiO2 11/10/18 08:00 98.4 109 20 100/68 (79) 96 11/10/18 04:00 98.1 99 16 127/68 (87) 98 11/10/18 04:00 103 11/10/18 00:00 100 18 142/84 (103) 96 11/10/18 00:00 91 11/09/18 21:00 Room Air 11/09/18 20:00 98.1 91 20 127/73 (91) 95 11/09/18 20:00 94 11/09/18 16:00 97.3 85 20 105/72 (83) 97 11/09/18 15:24 81 11/09/18 12:00 97.6 96 20 93/74 (80) 97 11/09/18 11:48 83 11/09/18 09:00 Room Air Intake and Output 11/09/18 11/10/18 18:59 06:59 Intake Total 270 ml 985 ml Output Total 775 ml 500 ml Balance -505 ml 485 ml Intake Free Water 500 ml Tube Feeding 270 ml 485 ml Output Urine Total 250 ml 300 ml Other 525 ml 200 ml # Bowel Movements 1 Laboratory Tests 11/10/18 06:43: White Blood Count 9.5, Red Blood Count 3.78L, Hemoglobin 10.7L, Hematocrit 33.3L , Mean Corpuscular Volume 88, Mean Corpuscular Hemoglobin 28.3, Mean Corpuscular Hemoglobin Concent 32.2, Red Cell Distribution Width 14.3, Platelet Count 341, Mean Platelet Volume 6.2L, Neutrophils (%) (Auto) 57.4, Lymphocytes ( %) (Auto) 29.7, Monocytes (%) (Auto) 10.3H, Eosinophils (%) (Auto) 0.9, Basophils (%) (Auto) 1.7, Sodium Level [Pending], Potassium Level [Pending], Chloride Level [Pending], Carbon Dioxide Level [Pending], Blood Urea Nitrogen [ Pending], Creatinine [Pending], Estimat Glomerular Filtration Rate [Pending], Glucose Level [Pending], Calcium Level [Pending] Height (Feet): 5 Height (Inches): 8.00 Weight (Pounds): 237 General Appearance: lethargic EENT: normal ENT inspection Neck: normal alignment Cardiovascular: normal peripheral pulses, normal rate, regular rhythm Respiratory/Chest: chest wall non-tender, lungs clear, normal breath sounds Abdomen: normal bowel sounds, non tender, soft Extremities: normal inspection Edema: no edema noted Arm (L), no edema noted Arm (R), no edema noted Leg (L), no edema noted Leg (R), no edema noted Pedal (L), no edema noted Pedal (R), no edema noted Generalized Neurologic: motor weakness Skin: normal pigmentation, warm/dry Jaylen Bear DO Nov 10, 2018 08:52
--- NOTE | 2018-11-10 09:03 | Hematology/Onc Progress Note ---
Assessment/Plan Assessment/Plan # Anemia due to underlying chronic disease, multifactorial, elev inflamm markers --> anemia panel ordered, likely ferritin will be high - reviewed, ferritin at 294 --> hgb trend as 9-->6.7-->10-->11-->10-->10.4-->11.1--.10.6 --> monitor for hematuria --> hgb goal >7, transfuse prn --> cysto as needed per urology/potential nephrostomy exchange # Leukocytosis likely due to uti, mdr v gi process --> monitor for improvement --> now has been started on linezolid/cefepime --> id and cards recs reviewed --> ct with potential volvulus v proctitis, have consulted gi --> wbc trend 22-->16-->14-->13.1-->12.6-->9.5 # Septic Shock s/p and dehydration, lactic acidosis 2.4. Off levophed and on IV antibiotics --> per id MRSA/ P. Mirabilis bacteremia may need to r/o endocarditis --> on abx as per id recs # Sinus tachycardia 140s likely due to sepsis with fever, HR better --> monitor closely for improvement with cards # Hypernatremia --> trend na with renal # Renal failure --> renal recs # CVA with paraplegia Appreciate consultation greatly. Subjective Constitutional: Denies: no symptoms, chills, fever, malaise, weakness, other HEENT: Denies: no symptoms, eye pain, blurred vision, tearing, double vision, ear pain, ear discharge, nose pain, nose congestion, throat pain, throat swelling, mouth pain, mouth swelling, other Cardiovascular: Denies: no symptoms, chest pain, edema, irregular heart rate, lightheadedness, palpitations, syncope, other Respiratory: Denies: no symptoms, cough, shortness of breath, SOB with excertion, SOB at rest, sputum, wheezing, other Gastrointestinal/Abdominal: Denies: no symptoms, abdomen distended, abdominal pain, black stools, tarry stools, blood in stool, constipated, diarrhea, difficulty swallowing, nausea, poor appetite, poor fluid intake, rectal bleeding , vomiting, other Genitourinary: Denies: no symptoms, burning, discharge, frequency, flank pain, hematuria, incontinence, pain, urgency, other 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: Denies: no symptoms, anxiety, depressed, emotional problems, headache, numbness, paresthesia, pre-existing deficit, seizure, tingling, tremors, weakness, other Endocrine: Denies: no symptoms, excessive sweating, flushing, intolerance to cold, intolerance to heat, increased hunger, increased thirst, increased urine, unexplained weight gain, unexplained weight loss, other Allergies: Coded Allergies: VANCOMYCIN (Verified Allergy, Mild, Redness , 10/29/18) CIPROFLOXACIN (Verified Allergy, Unknown, 08/23/15) Subjective 10/31: dc to med surg from icu, doing better 11/01: given 500cc ns for low bp, pcp was made aware as well as cards 11/02: on zyvox and cefepime, no fc, no bleeding, on feedings 11/03: on abx still, seen by id, and cards, r/o bacteremia induced by valve abnml 11/04: iv is on the right foot, pending potentially picc 11/05: labs have been reviewed, no f/c, no night sweats, seen by uro last night 11/06: anemia w/u reviewed, ferritin at 294, h/h stable, olga lidia postponed 11/07: no events noted, no f/c, on gtube feeds, no bleeding 11/08: npo for possible gtube/nephrostomy procedure, gtube is intact, no f/c 11/10: no events to report, no night sweats, no bleeding, cbc reviewed Objective Objective Current Medications Medications (Trade) Dose Ordered Sig/Fab Route PRN Reason Start Time Stop Time Status Last Admin Dose Admin Acetaminophen (Tylenol) 650 mg Q4H PRN GT fever (temp>100.5 F) 11/10/18 02:30 11/28/18 17:29 Cefepime HCl 2 gm/ Dextrose 55 ml @ 110 mls/hr EVERY 8 HOURS IVPB 11/10/18 06:00 11/13/18 12:59 11/10/18 06:02 Diphenhydramine HCl (Benadryl) 25 mg Q6H PRN IVP Itching 11/10/18 05:30 11/28/18 17:29 Docusate Sodium (Colace) 100 mg THREE TIMES A DAY GT 11/10/18 09:00 12/01/18 17:59 Famotidine (Pepcid) 20 mg Q12HR GT 11/10/18 09:00 11/29/18 20:59 Heparin Sodium (Porcine) (Heparin 5000 units/ml) 5,000 units EVERY 12 HOURS SUBQ 11/10/18 09:00 11/28/18 08:59 Linezolid (Zyvox) 600 mg EVERY 12 HOURS GT 11/10/18 09:00 11/10/18 20:59 Metoclopramide HCl (Reglan) 5 mg EVERY 6 HOURS NG 11/10/18 06:00 12/09/18 11:59 11/10/18 05:59 Midodrine (Pro-Amatine) 10 mg THREE TIMES A DAY GT 11/10/18 09:00 11/29/18 12:59 Ondansetron HCl (Zofran) 4 mg Q6H PRN IVP Nausea & Vomiting 11/10/18 05:30 11/28/18 17:29 Polyethylene Glycol (Miralax) 17 gm DAILYPRN PRN GT Constipation 11/10/18 10:30 11/30/18 17:29 Last 24 Hour Vital Signs Date Time Temp Pulse Resp B/P (MAP) Pulse Ox O2 Delivery O2 Flow Rate FiO2 11/10/18 08:00 98.4 109 20 100/68 (79) 96 11/10/18 04:00 98.1 99 16 127/68 (87) 98 11/10/18 04:00 103 11/10/18 00:00 100 18 142/84 (103) 96 11/10/18 00:00 91 11/09/18 21:00 Room Air 11/09/18 20:00 98.1 91 20 127/73 (91) 95 11/09/18 20:00 94 11/09/18 16:00 97.3 85 20 105/72 (83) 97 11/09/18 15:24 81 11/09/18 12:00 97.6 96 20 93/74 (80) 97 11/09/18 11:48 83 11/09/18 09:00 Room Air 11/09/18 08:00 97.5 92 20 98/69 (79) 98 11/09/18 07:51 95 11/09/18 04:00 98.2 92 18 104/75 (85) 98 11/09/18 03:34 95 11/09/18 00:00 97.6 94 18 103/73 (83) 96 11/08/18 23:29 104 11/08/18 21:00 Room Air 11/08/18 20:05 66 11/08/18 19:40 97.2 86 18 117/77 (90) 95 11/08/18 18:27 97.6 73 16 103/66 (78) 95 11/08/18 17:50 97.6 17 100/64 (76) 96 11/08/18 17:20 97.6 18 118/60 (79) 96 11/08/18 17:05 97.8 18 116/81 (93) 98 11/08/18 16:50 97.8 20 116/83 (94) 96 11/08/18 16:40 90 11/08/18 16:35 18 116/83 (94) 96 11/08/18 16:10 91 22 141/92 (108) 96 11/08/18 16:05 92 22 134/81 (98) 96 11/08/18 16:00 92 22 128/90 (103) 98 11/08/18 15:55 90 22 140/93 (109) 98 11/08/18 15:33 88 20 3.0 11/08/18 12:00 98.2 90 20 118/79 (92) 90 11/08/18 12:00 89 Intake and Output 11/09/18 11/10/18 18:59 06:59 Intake Total 270 ml 985 ml Output Total 775 ml 500 ml Balance -505 ml 485 ml Intake Free Water 500 ml Tube Feeding 270 ml 485 ml Output Urine Total 250 ml 300 ml Other 525 ml 200 ml # Bowel Movements 1 Labs Test 11/08/18 05:45 11/08/18 12:35 11/09/18 05:58 11/10/18 06:43 White Blood Count 10.5 K/UL (4.8-10.8) 9.2 K/UL (4.8-10.8) 9.5 K/UL (4.8-10.8) Red Blood Count 3.86 M/UL (4.70-6.10) 3.91 M/UL (4.70-6.10) 3.78 M/UL (4.70-6.10) Hemoglobin 11.1 G/DL (14.2-18.0) 11.0 G/DL (14.2-18.0) 10.7 G/DL (14.2-18.0) Hematocrit 33.8 % (42.0-52.0) 34.4 % (42.0-52.0) 33.3 % (42.0-52.0) Mean Corpuscular Volume 87 FL (80-99) 88 FL (80-99) 88 FL (80-99) Mean Corpuscular Hemoglobin 28.6 PG (27.0-31.0) 28.1 PG (27.0-31.0) 28.3 PG (27.0-31.0) Mean Corpuscular Hemoglobin Concent 32.7 G/DL (32.0-36.0) 32.0 G/DL (32.0-36.0) 32.2 G/DL (32.0-36.0) Red Cell Distribution Width 14.7 % (11.6-14.8) 14.4 % (11.6-14.8) 14.3 % (11.6-14.8) Platelet Count 259 K/UL (150-450) 316 K/UL (150-450) 341 K/UL (150-450) Mean Platelet Volume 6.4 FL (6.5-10.1) 6.3 FL (6.5-10.1) 6.2 FL (6.5-10.1) Neutrophils (%) (Auto) 63.5 % (45.0-75.0) 61.0 % (45.0-75.0) 57.4 % (45.0-75.0) Lymphocytes (%) (Auto) 24.6 % (20.0-45.0) 29.9 % (20.0-45.0) 29.7 % (20.0-45.0) Monocytes (%) (Auto) 8.5 % (1.0-10.0) 7.2 % (1.0-10.0) 10.3 % (1.0-10.0) Eosinophils (%) (Auto) 1.6 % (0.0-3.0) 0.9 % (0.0-3.0) 0.9 % (0.0-3.0) Basophils (%) (Auto) 1.8 % (0.0-2.0) 1.0 % (0.0-2.0) 1.7 % (0.0-2.0) Sodium Level 132 MMOL/L (136-145) 133 MMOL/L (136-145) Potassium Level 4.8 MMOL/L (3.5-5.1) 4.5 MMOL/L (3.5-5.1) Chloride Level 101 MMOL/L (98-107) 101 MMOL/L (98-107) Carbon Dioxide Level 27 MMOL/L (21-32) 25 MMOL/L (21-32) Anion Gap 5 mmol/L (5-15) 7 mmol/L (5-15) Blood Urea Nitrogen 19 mg/dL (7-18) 21 mg/dL (7-18) Creatinine 1.2 MG/DL (0.55-1.30) 1.2 MG/DL (0.55-1.30) Estimat Glomerular Filtration Rate > 60 mL/min (>60) > 60 mL/min (>60) Glucose Level 108 MG/DL (74-106) 123 MG/DL (74-106) Calcium Level 8.5 MG/DL (8.5-10.1) 8.7 MG/DL (8.5-10.1) Phosphorus Level 3.5 MG/DL (2.5-4.9) Magnesium Level 2.0 MG/DL (1.8-2.4) Total Bilirubin 0.3 MG/DL (0.2-1.0) Aspartate Amino Transf (AST/SGOT) 24 U/L (15-37) Alanine Aminotransferase (ALT/SGPT) 15 U/L (12-78) Alkaline Phosphatase 65 U/L (46-116) Total Protein 9.0 G/DL (6.4-8.2) Albumin 1.9 G/DL (3.4-5.0) Globulin 7.1 g/dL Albumin/Globulin Ratio 0.3 (1.0-2.7) Prothrombin Time 11.4 SEC (9.30-11.50) Prothromb Time International Ratio 1.1 (0.9-1.1) Activated Partial Thromboplast Time 31 SEC (23-33) Height (Feet): 5 Height (Inches): 8.00 Weight (Pounds): 237 Objective PE Gen: A+O x1, NAD HEENT: normocephalic, atraumatic Neck: non-tender, normal alignment Respiratory/Chest: chest wall non-tender, lungs clear Cardiovascular/Chest: normal peripheral pulses, normal rate Abdomen: normal bowel sounds, non tender ++ peg ++ suprapubic catheter Extremities: normal range of motion Nathan Ludwig MD Nov 10, 2018 09:03
[2018-11-10] MEDS: Midodrine 10mg tab GT SCH ×3 (09:08→17:21)
[2018-11-10] MEDS: Docusate 100mg/10ml Liq GT SCH ×3 (09:08→17:17)
[2018-11-10] MEDS: Heparin 5000 units/ml inj SUBQ SCH ×2 (09:10→21:00)
[2018-11-10 09:16] LABS: ANION GAP 8 mmol/L (5-15); BLOOD UREA NITROGEN 21 mg/dL (7-18); CALCIUM 8.9 MG/DL (8.5-10.1); CARBON DIOXIDE 25 MMOL/L (21-32); CHLORIDE 101 MMOL/L (98-107); CREATININE 1.1 MG/DL (0.55-1.30); POTASSIUM 4.3 MMOL/L (3.5-5.1); SODIUM 134 MMOL/L (136-145)
[2018-11-10] MEDS ORDERED: Miralax 17gm pkt GT PRN (10:30)
--- NOTE | 2018-11-10 11:49 | Nephrology Progress Note ---
Assessment/Plan Problem List: (1) GILDARDO (acute kidney injury) (2) Diabetes mellitus (3) COPD (chronic obstructive pulmonary disease) (4) Sepsis (5) Obstructive uropathy Assessment renal function stable Plan abxs DC midodrine if BP ok follow labs Subjective Subjective In NAD Objective Objective Last 24 Hour Vital Signs Date Time Temp Pulse Resp B/P (MAP) Pulse Ox O2 Delivery O2 Flow Rate FiO2 11/10/18 09:00 Room Air 11/10/18 08:00 98.4 109 20 100/68 (79) 96 11/10/18 08:00 99 11/10/18 04:00 98.1 99 16 127/68 (87) 98 11/10/18 04:00 103 11/10/18 00:00 100 18 142/84 (103) 96 11/10/18 00:00 91 11/09/18 21:00 Room Air 11/09/18 20:00 98.1 91 20 127/73 (91) 95 11/09/18 20:00 94 11/09/18 16:00 97.3 85 20 105/72 (83) 97 11/09/18 15:24 81 11/09/18 12:00 97.6 96 20 93/74 (80) 97 11/09/18 11:48 83 Intake and Output 11/09/18 11/10/18 18:59 06:59 Intake Total 270 ml 985 ml Output Total 775 ml 500 ml Balance -505 ml 485 ml Intake Free Water 500 ml Tube Feeding 270 ml 485 ml Output Urine Total 250 ml 300 ml Other 525 ml 200 ml # Bowel Movements 1 Laboratory Tests 11/10/18 06:43: White Blood Count 9.5, Red Blood Count 3.78L, Hemoglobin 10.7L, Hematocrit 33.3L , Mean Corpuscular Volume 88, Mean Corpuscular Hemoglobin 28.3, Mean Corpuscular Hemoglobin Concent 32.2, Red Cell Distribution Width 14.3, Platelet Count 341, Mean Platelet Volume 6.2L, Neutrophils (%) (Auto) 57.4, Lymphocytes ( %) (Auto) 29.7, Monocytes (%) (Auto) 10.3H, Eosinophils (%) (Auto) 0.9, Basophils (%) (Auto) 1.7, Sodium Level 134L, Potassium Level 4.3, Chloride Level 101, Carbon Dioxide Level 25, Anion Gap 8, Blood Urea Nitrogen 21H, Creatinine 1.1, Estimat Glomerular Filtration Rate > 60, Glucose Level 136H, Calcium Level 8.9 Height (Feet): 5 Height (Inches): 8.00 Weight (Pounds): 237 Cardiovascular: normal rate Respiratory/Chest: lungs clear Extremities: trace edema Bennie Balbuena MD Nov 10, 2018 11:49
[2018-11-10 12:00] VITALS: BP 119/81
--- NOTE | 2018-11-10 13:23 | Cardiac Electrophysiology PN ---
Assessment/Plan Assessment/Plan 1. S/P Septic Shock and dehydration Lactic acidosis 2.4. On antibiotics Echo Nl EF. WBC down from 21K to 10 k MRSA and enterococcus bacteremia. TASNEEM rescheduled for Sunday by Dr. Elias 2. Sinus tach 140s likely due to sepsis with fever. HR better 3. Inferior wall myocardial infarction based on electrocardiogram. Ruled out for myocardial infarction. EF 65% 4. Hypernatremia. 5. Renal failure and obstructive nephropathy. S/P R Nephrostomy tube placement on 11/08/18 6. CVA with paraplegia. 7. Status post suprapubic catheter. COLLETTE RN Subjective Subjective Still has right nephrostomy tube and draining. TASNEEM still pending Sunday Objective Last 24 Hour Vital Signs Date Time Temp Pulse Resp B/P (MAP) Pulse Ox O2 Delivery O2 Flow Rate FiO2 11/10/18 12:00 97.9 102 20 119/81 (94) 96 11/10/18 12:00 97 11/10/18 09:00 Room Air 11/10/18 08:00 98.4 109 20 100/68 (79) 96 11/10/18 08:00 99 11/10/18 04:00 98.1 99 16 127/68 (87) 98 11/10/18 04:00 103 11/10/18 00:00 100 18 142/84 (103) 96 11/10/18 00:00 91 11/09/18 21:00 Room Air 11/09/18 20:00 98.1 91 20 127/73 (91) 95 11/09/18 20:00 94 11/09/18 16:00 97.3 85 20 105/72 (83) 97 11/09/18 15:24 81 Intake and Output 11/09/18 11/10/18 19:00 07:00 Intake Total 300 ml 955 ml Output Total 600 ml 500 ml Balance -300 ml 455 ml Intake Free Water 500 ml Tube Feeding 300 ml 455 ml Output Urine Total 250 ml 300 ml Other 350 ml 200 ml # Bowel Movements 1 Laboratory Tests Test 11/10/18 06:43 White Blood Count 9.5 K/UL (4.8-10.8) Red Blood Count 3.78 M/UL (4.70-6.10) L Hemoglobin 10.7 G/DL (14.2-18.0) L Hematocrit 33.3 % (42.0-52.0) L Mean Corpuscular Volume 88 FL (80-99) Mean Corpuscular Hemoglobin 28.3 PG (27.0-31.0) Mean Corpuscular Hemoglobin Concent 32.2 G/DL (32.0-36.0) Red Cell Distribution Width 14.3 % (11.6-14.8) Platelet Count 341 K/UL (150-450) Mean Platelet Volume 6.2 FL (6.5-10.1) L Neutrophils (%) (Auto) 57.4 % (45.0-75.0) Lymphocytes (%) (Auto) 29.7 % (20.0-45.0) Monocytes (%) (Auto) 10.3 % (1.0-10.0) H Eosinophils (%) (Auto) 0.9 % (0.0-3.0) Basophils (%) (Auto) 1.7 % (0.0-2.0) Sodium Level 134 MMOL/L (136-145) L Potassium Level 4.3 MMOL/L (3.5-5.1) Chloride Level 101 MMOL/L (98-107) Carbon Dioxide Level 25 MMOL/L (21-32) Anion Gap 8 mmol/L (5-15) Blood Urea Nitrogen 21 mg/dL (7-18) H Creatinine 1.1 MG/DL (0.55-1.30) Estimat Glomerular Filtration Rate > 60 mL/min (>60) Glucose Level 136 MG/DL (74-106) H Calcium Level 8.9 MG/DL (8.5-10.1) Microbiology Date/Time Source Procedure Growth Status 11/08/18 16:05 Drainage Fluid Gram Stain - Final Resulted 11/08/18 16:05 Drainage Fluid Body Fluid Culture - Preliminary NO GROWTH Resulted Objective HEAD AND NECK: No JVD. LUNGS: Coarse rhonchi. CARDIOVASCULAR: Tachy S1, S2 with no gallop. ABDOMEN: Soft, status post suprapubic catheter.Nephrostomy Right Flank EXTREMITIES: Paraplegic with edema Darnell Segundo MD Nov 10, 2018 13:23
[2018-11-10] MEDS ORDERED: NS 275ml ONE ×2 (15:35→15:45)
[2018-11-10 16:00] VITALS: BP 105/79
--- NOTE | 2018-11-10 16:29 | NUR ---
CASE MANAGEMENT: REVIEW SI: SEPTIC . UTI . FECAL IMPACTION . VOLVULUS . OBSTRUCTIVE UROPATHY RIGHT NEPHROSTOMY TUBE PLACEMENT 11/08 T 97.7 HR 109 RR 20 BP 142/84 SAT 95% ROOM AIR H/H 10.7/33.3 NA 134 IS: MASON GT Q6HR PEPCID GT Q12HR CEFEPIME IV Q8HR HEPARIN SUBQ Q12HR ZYVOX GT Q12HR NPO TELEMETRY STATUS DCP: PATIENT IS FROM [facility]
--- NOTE | 2018-11-10 18:01 | Infectious Diseases Prog Note ---
Assessment/Plan Assessment/Plan Assessment: Septic shock- SP -probable pNA -MRSA/ P Mirabilis, E. fecalis bacteremia- m/l source UTI from obstructive stone , may need to r/o endocarditis -11/08 SP R nephrostomy --findings: small amount slightly purulent urine sent for C and S. Intraprocedural images demonstrate dilated right renal collecting system. Multiple filling defects are compatible with a calculi demonstrated on recent CT scan --cx NTD -small bowel series: No significant small bowel obstruction demonstrated; contrast transitethe entire GI tract in 3 hours -11/03 CT abd/p: 1. Dilated fluid and gas-filled small bowel loops with transition point in the right lower quadrant where there is swirling of mesenteric vessels and small bowel, concerning for volvulus causing obstruction. Wall thickening of the rectum may be secondary to fecal material versus proctitis. Obstructing stone measuring 1.2 cm in the proximal right ureter. Moderate to severe right hydronephrosis. Additional stones in the right kidney and right renal pelvis, measuring up to approximately 1.8 cm and the right renal pelvis. Small amount of free fluid in the pelvis. No abscess identified. -10/30 CXR: Right perihilar disease possibly atelectasis or pneumonia. No change -repeat u/a wbc tnct, nit +, leuk +3 -u/a wbc 19-15, nit +, leuk +2; ucx >100k P. mirabilis (Previously reporte as onlyS Genta, Ertapenem, Zosyn; now hs been updated to R Nitrofurantoin and otherwise S) -CXR: Low lung volumes with right perihilar atelectatic changes. No definite acute process -10/29 Bcx 4/ P. mirabilis (neri S), MRSA; repeat Bcx Neg; 10/30 BCxx 2/ P Mirabilis , 1/ E. fecalis (S Vanc, AMP); 11/01 Bcx 07/11 P. mirabilis, E. fecalis ; 11/04 BCx NTD -sp cx PsA (neri S), MRSA -2d Echo: no vegeatiosn Fever; SP Leukocytosis; SP GILDARDO, SP hx of UTI -07/2018 ucx E. fecalis (neri S), P. mirabilis -03/2019 ucx PsA TCP , SP CVA/TIA Dm2 CKD suprapubic catheter DVT hypertensive heart disease [place] resident Plan: cont Zyvox #10 and Cefepime # 9 ( monitor PLT ) for MRSA, enterococus and Proteus bacteremia, respectively (duration to follow) -11/02 SP Meropenem #4 -11/01 Sp Amikacin #4 , IV Vancomycin #3 -10/29 SP Ertapenem #1, IV Vancomycin x1 -f/u cx -Monitor CBC/CMP, temperatures -aspiration precautions -for TASNEEM to evaluate for endocarditis; scheduled for tomorrow Saturday 11/11 -f/u repeat Bcx x 2 -Uro, Cards, Sx f/u Subjective Allergies: Coded Allergies: VANCOMYCIN (Verified Allergy, Mild, Redness , 10/29/18) CIPROFLOXACIN (Verified Allergy, Unknown, 08/23/15) Subjective afebrile repeat Bcx NTD no leukocytosis Objective Vital Signs Last 24 Hour Vital Signs Date Time Temp Pulse Resp B/P (MAP) Pulse Ox O2 Delivery O2 Flow Rate FiO2 11/10/18 16:00 97.7 106 20 105/79 (88) 95 11/10/18 16:00 108 11/10/18 12:00 97.9 102 20 119/81 (94) 96 11/10/18 12:00 97 11/10/18 09:00 Room Air 11/10/18 08:00 98.4 109 20 100/68 (79) 96 11/10/18 08:00 99 11/10/18 04:00 98.1 99 16 127/68 (87) 98 11/10/18 04:00 103 11/10/18 00:00 100 18 142/84 (103) 96 11/10/18 00:00 91 11/09/18 21:00 Room Air 11/09/18 20:00 98.1 91 20 127/73 (91) 95 11/09/18 20:00 94 Height (Feet): 5 Height (Inches): 8.00 Weight (Pounds): 237 Objective General Appearance: WD/WN, no apparent distress Lines, tubes and drains: peripheral, central line, gtube HEENT: normocephalic, atraumatic, anicteric Neck: non-tender, normal alignment Respiratory/Chest: chest wall non-tender, lungs clear Cardiovascular/Chest: normal peripheral pulses, normal rate Abdomen: normal bowel sounds Extremities: normal range of motion Microbiology Date/Time Source Procedure Growth Status 11/08/18 16:05 Drainage Fluid Gram Stain - Final Resulted 11/08/18 16:05 Drainage Fluid Body Fluid Culture - Preliminary NO GROWTH Resulted Laboratory Tests Test 11/10/18 06:43 White Blood Count 9.5 K/UL (4.8-10.8) Red Blood Count 3.78 M/UL (4.70-6.10) L Hemoglobin 10.7 G/DL (14.2-18.0) L Hematocrit 33.3 % (42.0-52.0) L Mean Corpuscular Volume 88 FL (80-99) Mean Corpuscular Hemoglobin 28.3 PG (27.0-31.0) Mean Corpuscular Hemoglobin Concent 32.2 G/DL (32.0-36.0) Red Cell Distribution Width 14.3 % (11.6-14.8) Platelet Count 341 K/UL (150-450) Mean Platelet Volume 6.2 FL (6.5-10.1) L Neutrophils (%) (Auto) 57.4 % (45.0-75.0) Lymphocytes (%) (Auto) 29.7 % (20.0-45.0) Monocytes (%) (Auto) 10.3 % (1.0-10.0) H Eosinophils (%) (Auto) 0.9 % (0.0-3.0) Basophils (%) (Auto) 1.7 % (0.0-2.0) Sodium Level 134 MMOL/L (136-145) L Potassium Level 4.3 MMOL/L (3.5-5.1) Chloride Level 101 MMOL/L (98-107) Carbon Dioxide Level 25 MMOL/L (21-32) Anion Gap 8 mmol/L (5-15) Blood Urea Nitrogen 21 mg/dL (7-18) H Creatinine 1.1 MG/DL (0.55-1.30) Estimat Glomerular Filtration Rate > 60 mL/min (>60) Glucose Level 136 MG/DL (74-106) H Calcium Level 8.9 MG/DL (8.5-10.1) Current Medications Medications (Trade) Dose Ordered Sig/Fab Route PRN Reason Start Time Stop Time Status Last Admin Dose Admin Acetaminophen (Tylenol) 650 mg Q4H PRN GT fever (temp>100.5 F) 11/10/18 02:30 11/28/18 17:29 Cefepime HCl 2 gm/ Dextrose 55 ml @ 110 mls/hr EVERY 8 HOURS IVPB 11/10/18 06:00 11/13/18 12:59 11/10/18 14:24 Diphenhydramine HCl (Benadryl) 25 mg Q6H PRN IVP Itching 11/10/18 05:30 11/28/18 17:29 Docusate Sodium (Colace) 100 mg THREE TIMES A DAY GT 11/10/18 09:00 12/01/18 17:59 11/10/18 09:08 Famotidine (Pepcid) 20 mg Q12HR GT 11/10/18 09:00 11/29/18 20:59 11/10/18 09:08 Heparin Sodium (Porcine) (Heparin 5000 units/ml) 5,000 units EVERY 12 HOURS SUBQ 11/10/18 09:00 11/28/18 08:59 11/10/18 09:10 Linezolid (Zyvox) 600 mg EVERY 12 HOURS GT 11/10/18 09:00 11/10/18 20:59 11/10/18 09:08 Metoclopramide HCl (Reglan) 5 mg EVERY 6 HOURS NG 11/10/18 06:00 12/09/18 11:59 11/10/18 17:21 Midodrine (Pro-Amatine) 10 mg THREE TIMES A DAY GT 11/10/18 09:00 11/29/18 12:59 11/10/18 17:21 Ondansetron HCl (Zofran) 4 mg Q6H PRN IVP Nausea & Vomiting 11/10/18 05:30 11/28/18 17:29 Polyethylene Glycol (Miralax) 17 gm DAILYPRN PRN GT Constipation 11/10/18 10:30 11/30/18 17:29 Dorothea Macario M.D. Nov 10, 2018 18:01
--- NOTE | 2018-11-10 19:21 | NUR ---
HAND-OFF: Report given to CANDI [facility]ille[place].
--- NOTE | 2018-11-10 19:50 | NUR ---
NURSE NOTES: RECEIVED PATIENT RESTING IN BED, NON- VERBAL. FALL, ASPIRATION AND SEIZURE PRECAUTIONS IN PLACE: CALL LIGHT WITHIN REACH, BED IN LOW POSITION AND BED ALARM ON, HOB ELEVATED AND SIDE RAILS PADDED. WILL CONTINUE WITH PLAN OF CARE.
[2018-11-10 20:00] VITALS: BP 115/77
--- NOTE | 2018-11-10 20:23 | Surgery Progress Note ---
Surgery Progress Note Subjective Additional Comments late entry as patient seen earlier today. afebrile, HD Stable, exam unchanged. alert. comfortable. tolerating feeds Objective Last 24 Hour Vital Signs Date Time Temp Pulse Resp B/P (MAP) Pulse Ox O2 Delivery O2 Flow Rate FiO2 11/10/18 16:00 97.7 106 20 105/79 (88) 95 11/10/18 16:00 108 11/10/18 12:00 97.9 102 20 119/81 (94) 96 11/10/18 12:00 97 11/10/18 09:00 Room Air 11/10/18 08:00 98.4 109 20 100/68 (79) 96 11/10/18 08:00 99 11/10/18 04:00 98.1 99 16 127/68 (87) 98 11/10/18 04:00 103 11/10/18 00:00 100 18 142/84 (103) 96 11/10/18 00:00 91 11/09/18 21:00 Room Air I&O Intake and Output 11/09/18 11/10/18 19:00 07:00 Intake Total 300 ml 955 ml Output Total 600 ml 500 ml Balance -300 ml 455 ml Intake Free Water 500 ml Tube Feeding 300 ml 455 ml Output Urine Total 250 ml 300 ml Other 350 ml 200 ml # Bowel Movements 1 Dressing: saturated Wound: other Drains: other Cardiovascular: RSR Respiratory: decreased breath sounds Abdomen: soft, distended, present bowel sounds Extremities: no edema, no tenderness, no cyanosis Laboratory Tests Test 11/10/18 06:43 White Blood Count 9.5 K/UL (4.8-10.8) Red Blood Count 3.78 M/UL (4.70-6.10) L Hemoglobin 10.7 G/DL (14.2-18.0) L Hematocrit 33.3 % (42.0-52.0) L Mean Corpuscular Volume 88 FL (80-99) Mean Corpuscular Hemoglobin 28.3 PG (27.0-31.0) Mean Corpuscular Hemoglobin Concent 32.2 G/DL (32.0-36.0) Red Cell Distribution Width 14.3 % (11.6-14.8) Platelet Count 341 K/UL (150-450) Mean Platelet Volume 6.2 FL (6.5-10.1) L Neutrophils (%) (Auto) 57.4 % (45.0-75.0) Lymphocytes (%) (Auto) 29.7 % (20.0-45.0) Monocytes (%) (Auto) 10.3 % (1.0-10.0) H Eosinophils (%) (Auto) 0.9 % (0.0-3.0) Basophils (%) (Auto) 1.7 % (0.0-2.0) Sodium Level 134 MMOL/L (136-145) L Potassium Level 4.3 MMOL/L (3.5-5.1) Chloride Level 101 MMOL/L (98-107) Carbon Dioxide Level 25 MMOL/L (21-32) Anion Gap 8 mmol/L (5-15) Blood Urea Nitrogen 21 mg/dL (7-18) H Creatinine 1.1 MG/DL (0.55-1.30) Estimat Glomerular Filtration Rate > 60 mL/min (>60) Glucose Level 136 MG/DL (74-106) H Calcium Level 8.9 MG/DL (8.5-10.1) Plan Problems: (1) Volvulus Assessment & Plan: This is a 58-year-old male currently admitted for work-up of sepsis who was identified to have a leukocytosis, tachycardia, bacteremia. Patient is currently on IV antibiotics and slowly improving. On recent CT scan he was identified to have a potential volvulus. On examination clinically patient does not seem to have volvulus or bowel obstruction. His abdomen is soft nondistended nontender and with positive bowel sounds. He is tolerating tube feeds through his G-tube and having bowel movements and passing flatus. Swirling of the mesentery noted on CT scan concerning and will follow with serial exams and recommendations. For now okay to continue with tube feeds. Thank you for this consultation Small bowel series noted. No obstruction noted. okay for diet will monitor (2) Fecal impaction Assessment & Plan: IMPRESSION: 1. Dilated fluid and gas-filled small bowel loops with transition point in the right lower quadrant where there is swirling of mesenteric vessels and small bowel, concerning for volvulus causing obstruction. 2. Wall thickening of the rectum may be secondary to fecal material versus proctitis. 3. Obstructing stone measuring 1.2 cm in the proximal right ureter. Moderate to severe right hydronephrosis. Additional stones in the right kidney and right renal pelvis, measuring up to approximately 1.8 cm and the right renal pelvis. 4. Small amount of free fluid in the pelvis. No abscess identified. (3) Sepsis Assessment & Plan: There is an obstructing stone within the ureter which is causing moderate severe hydronephrosis. The urinalysis demonstrated bacteria similar to that of his bacteremia. Potential etiology of sepsis and above is these obstructing stone. appreciate urological evaluation. nephrostomy tube placed cont with current care plan Thank you (4) Anemia (5) Proctitis (6) Gastrostomy tube dependent (7) Obstructive hydrocephalus (8) COPD (chronic obstructive pulmonary disease) (9) Diabetes mellitus (10) Gram negative septicemia (11) Aphasia (12) Feeding by G-tube (13) Cellulitis of scrotum (14) History of CVA (cerebrovascular accident) (15) Suprapubic catheter dysfunction (16) Encephalopathy chronic (17) GILDARDO (acute kidney injury) (18) UTI (urinary tract infection) (19) Septic shock (20) History of DVT (deep vein thrombosis) (21) Suprapubic catheter (22) ATN (acute tubular necrosis) Russell Lopez Nov 10, 2018 20:23
--- NOTE | 2018-11-10 22:12 | NUR ---
NURSE NOTES: PATIENT CLEANED AND REPOSITIONED, PERINEAL CARE GIVEN, LINEN CHANGED. DRESSING TO GT SITE CHANGED. PATIENT TURNED AND REPOSITIONED.
[2018-11-11] VITALS: BP 119/80
[2018-11-11 04:00] VITALS: BP 115/69
[2018-11-11] MEDS: Metoclopramide 10mg/10ml Liq NG SCH ×3 (05:25→17:38)
[2018-11-11] MEDS: Cefepime HCl 2 GM in D5W 55 ML IVPB SCH ×3 (05:26→21:34)
--- NOTE | 2018-11-11 07:11 | NUR ---
HAND-OFF: Report given to CANDI LOPEZ. PATIENT RESTING IN BED, NO SIGNS OF DISTRESS NOTED.
--- NOTE | 2018-11-11 07:25 | NUR ---
NURSE NOTES: Received report from CANDI Villegas. Patient in bed resting, no active s/s cardiac, respiratory distress noticed at this time. Patient on room air, AAOx1, open eyes spontaneously, IV on right FA 22G, asymptomatic, patent, intact. Patient on NPO at midnight prior to procedure. Suprapubic catheter draining well to gravity, nephrostomy tube intact, draining well to gravity. Bed in lowest position, side rails padded upx2, call light within reach. Will continue to monitor.
[2018-11-11 07:45] LABS: BASOPHILS % (AUTO) 1.4 % (0.0-2.0); EOSINOPHILS % (AUTO) 0.4 % (0.0-3.0); HEMATOCRIT 32.5 % (42.0-52.0); HEMOGLOBIN 10.8 G/DL (14.2-18.0); LYMPHOCYTES % (AUTO) 29.5 % (20.0-45.0); MEAN CORPUSCULAR VOLUME 88 FL (80-99); MONOCYTES % (AUTO) 9.7 % (1.0-10.0); NEUTROPHILS % (AUTO) 59.1 % (45.0-75.0); PLATELET COUNT 383 K/UL (150-450); RED CELL DISTRIBUTION WIDTH 14.9 % (11.6-14.8); WHITE BLOOD COUNT 11.5 K/UL (4.8-10.8)
[2018-11-11 08:00] VITALS: BP 104/67
[2018-11-11 08:16] LABS: ANION GAP 6 mmol/L (5-15); BLOOD UREA NITROGEN 17 mg/dL (7-18); CALCIUM 9.2 MG/DL (8.5-10.1); CARBON DIOXIDE 27 MMOL/L (21-32); CHLORIDE 102 MMOL/L (98-107); CREATININE 1.1 MG/DL (0.55-1.30); POTASSIUM 4.5 MMOL/L (3.5-5.1); SODIUM 135 MMOL/L (136-145)
[2018-11-11] MEDS: Midodrine 10mg tab GT SCH ×2 (08:52→12:50)
[2018-11-11] MEDS: Docusate 100mg/10ml Liq GT SCH ×3 (08:52→17:37)
[2018-11-11] MEDS: Heparin 5000 units/ml inj SUBQ SCH ×2 (08:55→21:00)
--- NOTE | 2018-11-11 09:32 | NUR ---
NURSE NOTES: Sandoval, from cardiology called and was told Dr. Elias cannot perform TASNEEM today, but tomorrow 11/12/[address] Lebron can perform TASNEEM. Dr. Segundo made aware. Called Sister, Hilton, for telephone consent. G-tube feeding continued on Glucerna 1.5ml at 55ml/h. Will continue to monitor.
--- NOTE | 2018-11-11 10:31 | General Progress Note ---
Assessment/Plan Status: stable, progressing Assessment/Plan: (1) Aphasia ICD Codes: R47.01 - Aphasia SNOMED: 45528821 (2) Anemia ICD Codes: D64.9 - Anemia, unspecified SNOMED: 795976661 (3) Fecal impaction ICD Codes: K56.41 - Fecal impaction SNOMED: 53602017 (4) Proctitis ICD Codes: K62.89 - Other specified diseases of anus and rectum SNOMED: 2097365 (5) Volvulus ICD Codes: K56.2 - Volvulus SNOMED: 2128327 Status: stable, unchanged Status Narrative Discussed with Dr. Faust Assessment/Plan SBFT negative OB stool negative Anemia work-up reviewed Prevacid Monitor H&H, PRN transfusions Bowel regimen turn q2 hours Follow-up labs on low dose reglan increase GTF as tolerated to goal rate s/p nephrostomy tube placement fu TASNEEM Subjective Allergies: Coded Allergies: VANCOMYCIN (Verified Allergy, Mild, Redness , 10/29/18) CIPROFLOXACIN (Verified Allergy, Unknown, 08/23/15) Subjective was npo for TASNEEM which has been canceled vomited once Objective Last 24 Hour Vital Signs Date Time Temp Pulse Resp B/P (MAP) Pulse Ox O2 Delivery O2 Flow Rate FiO2 11/11/18 09:00 Room Air 11/11/18 08:00 97 11/11/18 08:00 98.2 104 18 104/67 (79) 96 11/11/18 04:00 94 11/11/18 04:00 98.3 97 18 115/69 (84) 99 11/11/18 00:00 98.1 101 18 119/80 (93) 95 11/11/18 00:00 114 11/10/18 21:00 Room Air 11/10/18 20:00 107 11/10/18 20:00 98.1 106 16 115/77 (90) 95 11/10/18 16:00 97.7 106 20 105/79 (88) 95 11/10/18 16:00 108 11/10/18 12:00 97.9 102 20 119/81 (94) 96 11/10/18 12:00 97 Intake and Output 11/10/18 11/11/18 18:59 06:59 Intake Total 255 ml 560 ml Output Total 650 ml 500 ml Balance -395 ml 60 ml Intake Free Water 200 ml 120 ml IV Total 165 ml Tube Feeding 55 ml 275 ml Output Urine Total 650 ml 300 ml Other 200 ml # Bowel Movements 1 Laboratory Tests 11/11/18 06:24: White Blood Count 11.5H, Red Blood Count 3.70L, Hemoglobin 10.8L, Hematocrit 32.5L, Mean Corpuscular Volume 88, Mean Corpuscular Hemoglobin 29.1, Mean Corpuscular Hemoglobin Concent 33.0, Red Cell Distribution Width 14.9H, Platelet Count 383, Mean Platelet Volume 6.0L, Neutrophils (%) (Auto) 59.1, Lymphocytes (%) (Auto) 29.5, Monocytes (%) (Auto) 9.7, Eosinophils (%) (Auto) 0.4, Basophils (%) (Auto) 1.4, Sodium Level 135L, Potassium Level 4.5, Chloride Level 102, Carbon Dioxide Level 27, Anion Gap 6, Blood Urea Nitrogen 17, Creatinine 1.1, Estimat Glomerular Filtration Rate > 60, Glucose Level 112H, Calcium Level 9.2 Height (Feet): 5 Height (Inches): 8.00 Weight (Pounds): 236 General Appearance: no apparent distress EENT: normal ENT inspection Neck: supple Cardiovascular: normal rate Respiratory/Chest: decreased breath sounds Abdomen: normal bowel sounds, non tender, soft Extremities: non-tender Deep Faust MD Nov 11, 2018 10:31
--- NOTE | 2018-11-11 11:20 | NUR ---
RADIOLOGY DEPT., ABDOMEN X-RAY COMPLETED.-P.DYE
[2018-11-11 12:00] VITALS: BP 107/74
--- NOTE | 2018-11-11 12:00 | Hematology/Onc Progress Note ---
Assessment/Plan Assessment/Plan # Anemia due to underlying chronic disease, multifactorial, elev inflamm markers --> anemia panel ordered, likely ferritin will be high - reviewed, ferritin at 294 --> hgb trend as 9-->6.7-->10-->11-->10-->10.4-->11.1-->10.6-->10.8 --> monitor for hematuria --> hgb goal >7, transfuse prn --> cysto as needed per urology/potential nephrostomy exchange --> dw Dr. Funk on 11/08/18 # Leukocytosis likely due to uti, mdr v gi process --> monitor for improvement --> now has been started on linezolid/cefepime --> id and cards recs reviewed --> ct with potential volvulus v proctitis, have consulted gi --> wbc trend 22-->16-->14-->13.1-->12.6-->9.5-->12 # Septic Shock s/p and dehydration, lactic acidosis 2.4. Off levophed and on IV antibiotics --> per id MRSA/ P. Mirabilis bacteremia may need to r/o endocarditis --> on abx as per id recs # Sinus tachycardia 140s likely due to sepsis with fever, HR better --> monitor closely for improvement with cards # Hypernatremia --> trend na with renal # Renal failure --> renal recs # CVA with paraplegia # s/p nephrostomy tube The timing of this note does not necessarily reflect the time of the patient was seen. GREATLY APPRECIATE CONSULTATION. Subjective Constitutional: Denies: no symptoms, chills, fever, malaise, weakness, other HEENT: Denies: no symptoms, eye pain, blurred vision, tearing, double vision, ear pain, ear discharge, nose pain, nose congestion, throat pain, throat swelling, mouth pain, mouth swelling, other Cardiovascular: Denies: no symptoms, chest pain, edema, irregular heart rate, lightheadedness, palpitations, syncope, other Respiratory: Denies: no symptoms, cough, shortness of breath, SOB with excertion, SOB at rest, sputum, wheezing, other Genitourinary: Denies: no symptoms, burning, discharge, frequency, flank pain, hematuria, incontinence, pain, urgency, other 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: Denies: no symptoms, anxiety, depressed, emotional problems, headache, numbness, paresthesia, pre-existing deficit, seizure, tingling, tremors, weakness, other Allergies: Coded Allergies: VANCOMYCIN (Verified Allergy, Mild, Redness , 10/29/18) CIPROFLOXACIN (Verified Allergy, Unknown, 08/23/15) Subjective 10/31: dc to med surg from icu, doing better 11/01: given 500cc ns for low bp, pcp was made aware as well as cards 11/02: on zyvox and cefepime, no fc, no bleeding, on feedings 11/03: on abx still, seen by id, and cards, r/o bacteremia induced by valve abnml 11/04: iv is on the right foot, pending potentially picc 11/05: labs have been reviewed, no f/c, no night sweats, seen by uro last night 11/06: anemia w/u reviewed, ferritin at 294, h/h stable, olga lidia postponed 11/07: no events noted, no f/c, on gtube feeds, no bleeding 11/08: npo for possible gtube/nephrostomy procedure, gtube is intact, no f/c 11/10: no events to report, no night sweats, no bleeding, cbc reviewed 11/11: potential olga lidia scheduled, gtube feeds to be advanced, no night sweats, no f Objective Objective Current Medications Medications (Trade) Dose Ordered Sig/Fab Route PRN Reason Start Time Stop Time Status Last Admin Dose Admin Acetaminophen (Tylenol) 650 mg Q4H PRN GT fever (temp>100.5 F) 11/10/18 02:30 11/28/18 17:29 Cefepime HCl 2 gm/ Dextrose 55 ml @ 110 mls/hr EVERY 8 HOURS IVPB 11/10/18 06:00 11/13/18 12:59 11/11/18 05:26 Diphenhydramine HCl (Benadryl) 25 mg Q6H PRN IVP Itching 11/10/18 05:30 11/28/18 17:29 Docusate Sodium (Colace) 100 mg THREE TIMES A DAY GT 11/10/18 09:00 12/01/18 17:59 11/11/18 08:52 Famotidine (Pepcid) 20 mg Q12HR GT 11/10/18 09:00 11/29/18 20:59 11/11/18 08:52 Heparin Sodium (Porcine) (Heparin 5000 units/ml) 5,000 units EVERY 12 HOURS SUBQ 11/10/18 09:00 11/28/18 08:59 11/10/18 09:10 Metoclopramide HCl (Reglan) 5 mg EVERY 6 HOURS NG 11/10/18 06:00 12/09/18 11:59 11/11/18 05:25 Midodrine (Pro-Amatine) 10 mg THREE TIMES A DAY GT 11/10/18 09:00 11/29/18 12:59 11/11/18 08:52 Ondansetron HCl (Zofran) 4 mg Q6H PRN IVP Nausea & Vomiting 11/10/18 05:30 11/28/18 17:29 Polyethylene Glycol (Miralax) 17 gm DAILYPRN PRN GT Constipation 11/10/18 10:30 11/30/18 17:29 Last 24 Hour Vital Signs Date Time Temp Pulse Resp B/P (MAP) Pulse Ox O2 Delivery O2 Flow Rate FiO2 11/11/18 09:00 Room Air 11/11/18 08:00 97 11/11/18 08:00 98.2 104 18 104/67 (79) 96 11/11/18 04:00 94 11/11/18 04:00 98.3 97 18 115/69 (84) 99 11/11/18 00:00 98.1 101 18 119/80 (93) 95 11/11/18 00:00 114 11/10/18 21:00 Room Air 11/10/18 20:00 107 11/10/18 20:00 98.1 106 16 115/77 (90) 95 11/10/18 16:00 97.7 106 20 105/79 (88) 95 11/10/18 16:00 108 11/10/18 12:00 97.9 102 20 119/81 (94) 96 11/10/18 12:00 97 11/10/18 09:00 Room Air 11/10/18 08:00 98.4 109 20 100/68 (79) 96 8/4/19 08:00 99 11/10/18 04:00 98.1 99 16 127/68 (87) 98 11/10/18 04:00 103 11/10/18 00:00 100 18 142/84 (103) 96 11/10/18 00:00 91 11/09/18 21:00 Room Air 11/09/18 20:00 98.1 91 20 127/73 (91) 95 11/09/18 20:00 94 11/09/18 16:00 97.3 85 20 105/72 (83) 97 11/09/18 15:24 81 11/09/18 12:00 97.6 96 20 93/74 (80) 97 Intake and Output 11/10/18 11/11/18 18:59 06:59 Intake Total 255 ml 560 ml Output Total 650 ml 500 ml Balance -395 ml 60 ml Intake Free Water 200 ml 120 ml IV Total 165 ml Tube Feeding 55 ml 275 ml Output Urine Total 650 ml 300 ml Other 200 ml # Bowel Movements 1 Labs Test 11/08/18 12:35 11/09/18 05:58 11/10/18 06:43 11/11/18 06:24 Prothrombin Time 11.4 SEC (9.30-11.50) Prothromb Time International Ratio 1.1 (0.9-1.1) Activated Partial Thromboplast Time 31 SEC (23-33) White Blood Count 9.2 K/UL (4.8-10.8) 9.5 K/UL (4.8-10.8) 11.5 K/UL (4.8-10.8) Red Blood Count 3.91 M/UL (4.70-6.10) 3.78 M/UL (4.70-6.10) 3.70 M/UL (4.70-6.10) Hemoglobin 11.0 G/DL (14.2-18.0) 10.7 G/DL (14.2-18.0) 10.8 G/DL (14.2-18.0) Hematocrit 34.4 % (42.0-52.0) 33.3 % (42.0-52.0) 32.5 % (42.0-52.0) Mean Corpuscular Volume 88 FL (80-99) 88 FL (80-99) 88 FL (80-99) Mean Corpuscular Hemoglobin 28.1 PG (27.0-31.0) 28.3 PG (27.0-31.0) 29.1 PG (27.0-31.0) Mean Corpuscular Hemoglobin Concent 32.0 G/DL (32.0-36.0) 32.2 G/DL (32.0-36.0) 33.0 G/DL (32.0-36.0) Red Cell Distribution Width 14.4 % (11.6-14.8) 14.3 % (11.6-14.8) 14.9 % (11.6-14.8) Platelet Count 316 K/UL (150-450) 341 K/UL (150-450) 383 K/UL (150-450) Mean Platelet Volume 6.3 FL (6.5-10.1) 6.2 FL (6.5-10.1) 6.0 FL (6.5-10.1) Neutrophils (%) (Auto) 61.0 % (45.0-75.0) 57.4 % (45.0-75.0) 59.1 % (45.0-75.0) Lymphocytes (%) (Auto) 29.9 % (20.0-45.0) 29.7 % (20.0-45.0) 29.5 % (20.0-45.0) Monocytes (%) (Auto) 7.2 % (1.0-10.0) 10.3 % (1.0-10.0) 9.7 % (1.0-10.0) Eosinophils (%) (Auto) 0.9 % (0.0-3.0) 0.9 % (0.0-3.0) 0.4 % (0.0-3.0) Basophils (%) (Auto) 1.0 % (0.0-2.0) 1.7 % (0.0-2.0) 1.4 % (0.0-2.0) Sodium Level 133 MMOL/L (136-145) 134 MMOL/L (136-145) 135 MMOL/L (136-145) Potassium Level 4.5 MMOL/L (3.5-5.1) 4.3 MMOL/L (3.5-5.1) 4.5 MMOL/L (3.5-5.1) Chloride Level 101 MMOL/L (98-107) 101 MMOL/L (98-107) 102 MMOL/L (98-107) Carbon Dioxide Level 25 MMOL/L (21-32) 25 MMOL/L (21-32) 27 MMOL/L (21-32) Anion Gap 7 mmol/L (5-15) 8 mmol/L (5-15) 6 mmol/L (5-15) Blood Urea Nitrogen 21 mg/dL (7-18) 21 mg/dL (7-18) 17 mg/dL (7-18) Creatinine 1.2 MG/DL (0.55-1.30) 1.1 MG/DL (0.55-1.30) 1.1 MG/DL (0.55-1.30) Estimat Glomerular Filtration Rate > 60 mL/min (>60) > 60 mL/min (>60) > 60 mL/min (>60) Glucose Level 123 MG/DL (74-106) 136 MG/DL (74-106) 112 MG/DL (74-106) Calcium Level 8.7 MG/DL (8.5-10.1) 8.9 MG/DL (8.5-10.1) 9.2 MG/DL (8.5-10.1) Height (Feet): 5 Height (Inches): 8.00 Weight (Pounds): 236 Objective PE Gen: A+O x1, NAD HEENT: normocephalic, atraumatic Neck: non-tender, normal alignment Respiratory/Chest: chest wall non-tender, lungs clear Cardiovascular/Chest: normal peripheral pulses, normal rate Abdomen: normal bowel sounds, non tender ++ peg ++ suprapubic catheter Extremities: normal range of motion Nathan Ludwig MD Nov 11, 2018 12:00
--- NOTE | 2018-11-11 12:41 | General Progress Note ---
Assessment/Plan Problem List: (1) Obstructive hydrocephalus ICD Codes: G91.1 - Obstructive hydrocephalus SNOMED: 401004236 (2) COPD (chronic obstructive pulmonary disease) ICD Codes: J44.9 - Chronic obstructive pulmonary disease, unspecified SNOMED: 72482060 (3) Diabetes mellitus ICD Codes: E11.9 - Type 2 diabetes mellitus without complications SNOMED: 41413568 (4) Feeding by G-tube ICD Codes: Z93.1 - Gastrostomy status SNOMED: 048729772, 721031373 (5) Sepsis ICD Codes: A41.9 - Sepsis, unspecified organism SNOMED: 12027933 (6) History of CVA (cerebrovascular accident) ICD Codes: Z86.73 - Personal history of transient ischemic attack (TIA), and cerebral infarction without residual deficits SNOMED: 007161656 (7) Encephalopathy chronic ICD Codes: G93.49 - Other encephalopathy SNOMED: 48479983 (8) UTI (urinary tract infection) ICD Codes: N39.0 - Urinary tract infection, site not specified SNOMED: 64011297 Qualifiers: Qualified Codes: N30.00 - Acute cystitis without hematuria (9) Septic shock ICD Codes: A41.9 - Sepsis, unspecified organism; R65.21 - Severe sepsis with septic shock SNOMED: 01272186 (10) ATN (acute tubular necrosis) ICD Codes: N17.0 - Acute kidney failure with tubular necrosis SNOMED: 57752809 Status: stable, progressing Assessment/Plan: o2 pulm tx abx bp control cbc bmp am aru eval Subjective Constitutional: Reports: weakness Allergies: Coded Allergies: VANCOMYCIN (Verified Allergy, Mild, Redness , 10/29/18) CIPROFLOXACIN (Verified Allergy, Unknown, 08/23/15) All Systems: reviewed and negative except above Subjective sleepy calm Objective Last 24 Hour Vital Signs Date Time Temp Pulse Resp B/P (MAP) Pulse Ox O2 Delivery O2 Flow Rate FiO2 11/11/18 12:00 100 11/11/18 12:00 97.4 96 17 107/74 (85) 97 11/11/18 09:00 Room Air 11/11/18 08:00 97 11/11/18 08:00 98.2 104 18 104/67 (79) 96 11/11/18 04:00 94 11/11/18 04:00 98.3 97 18 115/69 (84) 99 11/11/18 00:00 98.1 101 18 119/80 (93) 95 11/11/18 00:00 114 11/10/18 21:00 Room Air 11/10/18 20:00 107 11/10/18 20:00 98.1 106 16 115/77 (90) 95 11/10/18 16:00 97.7 106 20 105/79 (88) 95 11/10/18 16:00 108 Intake and Output 11/10/18 11/11/18 18:59 06:59 Intake Total 255 ml 560 ml Output Total 650 ml 500 ml Balance -395 ml 60 ml Intake Free Water 200 ml 120 ml IV Total 165 ml Tube Feeding 55 ml 275 ml Output Urine Total 650 ml 300 ml Other 200 ml # Bowel Movements 1 Laboratory Tests 11/11/18 06:24: White Blood Count 11.5H, Red Blood Count 3.70L, Hemoglobin 10.8L, Hematocrit 32.5L, Mean Corpuscular Volume 88, Mean Corpuscular Hemoglobin 29.1, Mean Corpuscular Hemoglobin Concent 33.0, Red Cell Distribution Width 14.9H, Platelet Count 383, Mean Platelet Volume 6.0L, Neutrophils (%) (Auto) 59.1, Lymphocytes (%) (Auto) 29.5, Monocytes (%) (Auto) 9.7, Eosinophils (%) (Auto) 0.4, Basophils (%) (Auto) 1.4, Sodium Level 135L, Potassium Level 4.5, Chloride Level 102, Carbon Dioxide Level 27, Anion Gap 6, Blood Urea Nitrogen 17, Creatinine 1.1, Estimat Glomerular Filtration Rate > 60, Glucose Level 112H, Calcium Level 9.2, Total Protein (PEP) [Pending], Albumin (PEP) [Pending], Globulin (PEP) [Pending], Albumin/Globulin Ratio [Pending], Bpuvb-1-Lytxhlzge [ Pending], Uleym-2-Pxlimlshr [Pending], Beta Globulins [Pending], Beta Gamma Globulin [Pending], PEP Abnormal Protein Bands [Pending], Protein Electrophoresis Interpret [Pending] Height (Feet): 5 Height (Inches): 8.00 Weight (Pounds): 236 General Appearance: lethargic EENT: normal ENT inspection Neck: normal alignment Cardiovascular: normal peripheral pulses, normal rate, regular rhythm Respiratory/Chest: chest wall non-tender, lungs clear, normal breath sounds Abdomen: normal bowel sounds, non tender, soft Extremities: normal inspection Edema: no edema noted Arm (L), no edema noted Arm (R), no edema noted Leg (L), no edema noted Leg (R), no edema noted Pedal (L), no edema noted Pedal (R), no edema noted Generalized Neurologic: motor weakness Skin: normal pigmentation, warm/dry Jaylen Bear DO Nov 11, 2018 12:41
--- NOTE | 2018-11-11 13:00 | Diagnostic Imaging Report ---
Indication: Abdominal pain Comparison: Small bowel series 11/04/2018. Single view of the abdomen obtained Findings: Distended small bowel again noted. Previous exam had shown no evidence of bowel obstruction despite small bowel dilatation. Catheter projected over the right side of the abdomen noted. Gastrostomy also noted. Surgical clips in abdomen noted. IMPRESSION: Presumed ileus stable in appearance.
--- NOTE | 2018-11-11 13:31 | Cardiac Electrophysiology PN ---
Assessment/Plan Assessment/Plan 1. S/P Shock due to Sepsis and dehydration Lactic acidosis 2.4. On antibiotics Echo Nl EF. WBC down from 21K to 10 k MRSA and enterococcus bacteremia. TASNEEM rescheduled for Sunday by Dr. Lebron 2. Sinus tach 140s likely due to sepsis with fever. HR better 3. Inferior wall myocardial infarction based on electrocardiogram. Ruled out for myocardial infarction. EF 65% 4. Hypernatremia. 5. Renal failure and obstructive nephropathy. S/P R Nephrostomy tube placement on 11/08/18 6. CVA with paraplegia. 7. Status post suprapubic catheter. COLLETTE RN Subjective Subjective Nephrostomy tube draining. TASNEEM rescheduled for Sunday by Dr. Lebron Objective Last 24 Hour Vital Signs Date Time Temp Pulse Resp B/P (MAP) Pulse Ox O2 Delivery O2 Flow Rate FiO2 11/11/18 12:00 100 11/11/18 12:00 97.4 96 17 107/74 (85) 97 11/11/18 09:00 Room Air 11/11/18 08:00 97 11/11/18 08:00 98.2 104 18 104/67 (79) 96 11/11/18 04:00 94 11/11/18 04:00 98.3 97 18 115/69 (84) 99 11/11/18 00:00 98.1 101 18 119/80 (93) 95 11/11/18 00:00 114 11/10/18 21:00 Room Air 11/10/18 20:00 107 11/10/18 20:00 98.1 106 16 115/77 (90) 95 11/10/18 16:00 97.7 106 20 105/79 (88) 95 11/10/18 16:00 108 Intake and Output 11/10/18 11/11/18 18:59 06:59 Intake Total 255 ml 560 ml Output Total 650 ml 500 ml Balance -395 ml 60 ml Intake Free Water 200 ml 120 ml IV Total 165 ml Tube Feeding 55 ml 275 ml Output Urine Total 650 ml 300 ml Other 200 ml # Bowel Movements 1 Laboratory Tests Test 11/11/18 06:24 White Blood Count 11.5 K/UL (4.8-10.8) H Red Blood Count 3.70 M/UL (4.70-6.10) L Hemoglobin 10.8 G/DL (14.2-18.0) L Hematocrit 32.5 % (42.0-52.0) L Mean Corpuscular Volume 88 FL (80-99) Mean Corpuscular Hemoglobin 29.1 PG (27.0-31.0) Mean Corpuscular Hemoglobin Concent 33.0 G/DL (32.0-36.0) Red Cell Distribution Width 14.9 % (11.6-14.8) H Platelet Count 383 K/UL (150-450) Mean Platelet Volume 6.0 FL (6.5-10.1) L Neutrophils (%) (Auto) 59.1 % (45.0-75.0) Lymphocytes (%) (Auto) 29.5 % (20.0-45.0) Monocytes (%) (Auto) 9.7 % (1.0-10.0) Eosinophils (%) (Auto) 0.4 % (0.0-3.0) Basophils (%) (Auto) 1.4 % (0.0-2.0) Sodium Level 135 MMOL/L (136-145) L Potassium Level 4.5 MMOL/L (3.5-5.1) Chloride Level 102 MMOL/L (98-107) Carbon Dioxide Level 27 MMOL/L (21-32) Anion Gap 6 mmol/L (5-15) Blood Urea Nitrogen 17 mg/dL (7-18) Creatinine 1.1 MG/DL (0.55-1.30) Estimat Glomerular Filtration Rate > 60 mL/min (>60) Glucose Level 112 MG/DL (74-106) H Calcium Level 9.2 MG/DL (8.5-10.1) Total Protein (PEP) Pending Albumin (PEP) Pending Globulin (PEP) Pending Albumin/Globulin Ratio Pending Wrumh-3-Hllpbkwaw Pending Ecsoc-5-Canfeezev Pending Beta Globulins Pending Beta Gamma Globulin Pending PEP Abnormal Protein Bands Pending Protein Electrophoresis Interpret Pending Microbiology Date/Time Source Procedure Growth Status 11/08/18 16:05 Drainage Fluid Gram Stain - Final Resulted 11/08/18 16:05 Body Fluid Culture - Preliminary Gram Positive Cocci Resulted Objective HEAD AND NECK: No JVD. LUNGS: Coarse rhonchi. CARDIOVASCULAR: Tachy S1, S2 with no gallop. ABDOMEN: Soft, status post suprapubic catheter.Nephrostomy Right Flank EXTREMITIES: Paraplegic with edema Darnell Segundo MD Nov 11, 2018 13:31
--- NOTE | 2018-11-11 14:42 | Nephrology Progress Note ---
Assessment/Plan Problem List: (1) GILDARDO (acute kidney injury) (2) Diabetes mellitus (3) COPD (chronic obstructive pulmonary disease) (4) Sepsis (5) Obstructive uropathy Assessment renal function stable Plan abxs DC midodrine follow labs Subjective Subjective In NAD Objective Objective Last 24 Hour Vital Signs Date Time Temp Pulse Resp B/P (MAP) Pulse Ox O2 Delivery O2 Flow Rate FiO2 11/11/18 12:00 100 11/11/18 12:00 97.4 96 17 107/74 (85) 97 11/11/18 09:00 Room Air 11/11/18 08:00 97 11/11/18 08:00 98.2 104 18 104/67 (79) 96 11/11/18 04:00 94 11/11/18 04:00 98.3 97 18 115/69 (84) 99 11/11/18 00:00 98.1 101 18 119/80 (93) 95 11/11/18 00:00 114 11/10/18 21:00 Room Air 11/10/18 20:00 107 11/10/18 20:00 98.1 106 16 115/77 (90) 95 11/10/18 16:00 97.7 106 20 105/79 (88) 95 11/10/18 16:00 108 Intake and Output 11/10/18 11/11/18 18:59 06:59 Intake Total 255 ml 560 ml Output Total 650 ml 500 ml Balance -395 ml 60 ml Intake Free Water 200 ml 120 ml IV Total 165 ml Tube Feeding 55 ml 275 ml Output Urine Total 650 ml 300 ml Other 200 ml # Bowel Movements 1 Laboratory Tests 11/11/18 06:24: White Blood Count 11.5H, Red Blood Count 3.70L, Hemoglobin 10.8L, Hematocrit 32.5L, Mean Corpuscular Volume 88, Mean Corpuscular Hemoglobin 29.1, Mean Corpuscular Hemoglobin Concent 33.0, Red Cell Distribution Width 14.9H, Platelet Count 383, Mean Platelet Volume 6.0L, Neutrophils (%) (Auto) 59.1, Lymphocytes (%) (Auto) 29.5, Monocytes (%) (Auto) 9.7, Eosinophils (%) (Auto) 0.4, Basophils (%) (Auto) 1.4, Sodium Level 135L, Potassium Level 4.5, Chloride Level 102, Carbon Dioxide Level 27, Anion Gap 6, Blood Urea Nitrogen 17, Creatinine 1.1, Estimat Glomerular Filtration Rate > 60, Glucose Level 112H, Calcium Level 9.2, Total Protein (PEP) [Pending], Albumin (PEP) [Pending], Globulin (PEP) [Pending], Albumin/Globulin Ratio [Pending], Tlrpn-9-Rmazhorgs [ Pending], Mrpli-5-Mqnrmqczr [Pending], Beta Globulins [Pending], Beta Gamma Globulin [Pending], PEP Abnormal Protein Bands [Pending], Protein Electrophoresis Interpret [Pending] Height (Feet): 5 Height (Inches): 8.00 Weight (Pounds): 236 Cardiovascular: normal rate Respiratory/Chest: lungs clear Bennie Balbuena MD Nov 11, 2018 14:42
--- NOTE | 2018-11-11 14:55 | Surgery Progress Note ---
Surgery Progress Note Subjective Additional Comments Patient seen and examined at bedside. No acute events. Leukocytosis of 11,000 today. Tolerating tube feeds. Having bowel movements. Objective Last 24 Hour Vital Signs Date Time Temp Pulse Resp B/P (MAP) Pulse Ox O2 Delivery O2 Flow Rate FiO2 11/11/18 12:00 100 11/11/18 12:00 97.4 96 17 107/74 (85) 97 11/11/18 09:00 Room Air 11/11/18 08:00 97 11/11/18 08:00 98.2 104 18 104/67 (79) 96 11/11/18 04:00 94 11/11/18 04:00 98.3 97 18 115/69 (84) 99 11/11/18 00:00 98.1 101 18 119/80 (93) 95 11/11/18 00:00 114 11/10/18 21:00 Room Air 11/10/18 20:00 107 11/10/18 20:00 98.1 106 16 115/77 (90) 95 11/10/18 16:00 97.7 106 20 105/79 (88) 95 11/10/18 16:00 108 I&O Intake and Output 11/10/18 11/11/18 18:59 06:59 Intake Total 255 ml 560 ml Output Total 650 ml 500 ml Balance -395 ml 60 ml Intake Free Water 200 ml 120 ml IV Total 165 ml Tube Feeding 55 ml 275 ml Output Urine Total 650 ml 300 ml Other 200 ml # Bowel Movements 1 Dressing: dry Wound: clean Cardiovascular: RSR Respiratory: clear Abdomen: soft, distended, non-tender, present bowel sounds Extremities: no tenderness, no cyanosis Laboratory Tests Test 11/11/18 06:24 White Blood Count 11.5 K/UL (4.8-10.8) H Red Blood Count 3.70 M/UL (4.70-6.10) L Hemoglobin 10.8 G/DL (14.2-18.0) L Hematocrit 32.5 % (42.0-52.0) L Mean Corpuscular Volume 88 FL (80-99) Mean Corpuscular Hemoglobin 29.1 PG (27.0-31.0) Mean Corpuscular Hemoglobin Concent 33.0 G/DL (32.0-36.0) Red Cell Distribution Width 14.9 % (11.6-14.8) H Platelet Count 383 K/UL (150-450) Mean Platelet Volume 6.0 FL (6.5-10.1) L Neutrophils (%) (Auto) 59.1 % (45.0-75.0) Lymphocytes (%) (Auto) 29.5 % (20.0-45.0) Monocytes (%) (Auto) 9.7 % (1.0-10.0) Eosinophils (%) (Auto) 0.4 % (0.0-3.0) Basophils (%) (Auto) 1.4 % (0.0-2.0) Sodium Level 135 MMOL/L (136-145) L Potassium Level 4.5 MMOL/L (3.5-5.1) Chloride Level 102 MMOL/L (98-107) Carbon Dioxide Level 27 MMOL/L (21-32) Anion Gap 6 mmol/L (5-15) Blood Urea Nitrogen 17 mg/dL (7-18) Creatinine 1.1 MG/DL (0.55-1.30) Estimat Glomerular Filtration Rate > 60 mL/min (>60) Glucose Level 112 MG/DL (74-106) H Calcium Level 9.2 MG/DL (8.5-10.1) Total Protein (PEP) Pending Albumin (PEP) Pending Globulin (PEP) Pending Albumin/Globulin Ratio Pending Ijeur-2-Eyyndqbfd Pending Xqoso-6-Mjvlmmkbt Pending Beta Globulins Pending Beta Gamma Globulin Pending PEP Abnormal Protein Bands Pending Protein Electrophoresis Interpret Pending Plan Problems: (1) Volvulus Assessment & Plan: This is a 58-year-old male currently admitted for work-up of sepsis who was identified to have a leukocytosis, tachycardia, bacteremia. Patient is currently on IV antibiotics and slowly improving. On recent CT scan he was identified to have a potential volvulus. On examination clinically patient does not seem to have volvulus or bowel obstruction. His abdomen is soft nondistended nontender and with positive bowel sounds. He is tolerating tube feeds through his G-tube and having bowel movements and passing flatus. Swirling of the mesentery noted on CT scan concerning and will follow with serial exams and recommendations. For now okay to continue with tube feeds. Thank you for this consultation Small bowel series noted. No obstruction noted. okay for diet will monitor KUB noted. Still with ileus. Continues to have bowel movements and tolerate diet. Continue with current care plan (2) Fecal impaction Assessment & Plan: IMPRESSION: 1. Dilated fluid and gas-filled small bowel loops with transition point in the right lower quadrant where there is swirling of mesenteric vessels and small bowel, concerning for volvulus causing obstruction. 2. Wall thickening of the rectum may be secondary to fecal material versus proctitis. 3. Obstructing stone measuring 1.2 cm in the proximal right ureter. Moderate to severe right hydronephrosis. Additional stones in the right kidney and right renal pelvis, measuring up to approximately 1.8 cm and the right renal pelvis. 4. Small amount of free fluid in the pelvis. No abscess identified. (3) Sepsis Assessment & Plan: There is an obstructing stone within the ureter which is causing moderate severe hydronephrosis. The urinalysis demonstrated bacteria similar to that of his bacteremia. Potential etiology of sepsis and above is these obstructing stone. appreciate urological evaluation. nephrostomy tube placed cont with current care plan Thank you (4) Anemia (5) Proctitis (6) Gastrostomy tube dependent (7) Obstructive hydrocephalus (8) COPD (chronic obstructive pulmonary disease) (9) Diabetes mellitus (10) Gram negative septicemia (11) Aphasia (12) Feeding by G-tube (13) Cellulitis of scrotum (14) History of CVA (cerebrovascular accident) (15) Suprapubic catheter dysfunction (16) Encephalopathy chronic (17) GILDARDO (acute kidney injury) (18) UTI (urinary tract infection) (19) Septic shock (20) History of DVT (deep vein thrombosis) (21) Suprapubic catheter (22) ATN (acute tubular necrosis) Russell Lopez Nov 11, 2018 14:55
--- NOTE | 2018-11-11 15:46 | Infectious Diseases Prog Note ---
Assessment/Plan Assessment/Plan Assessment: Septic shock- SP -probable pNA -MRSA/ P Mirabilis, E. fecalis bacteremia- m/l source UTI from obstructive stone , may need to r/o endocarditis -11/08 SP R nephrostomy --findings: small amount slightly purulent urine sent for C and S. Intraprocedural images demonstrate dilated right renal collecting system. Multiple filling defects are compatible with a calculi demonstrated on recent CT scan --cx GPC -small bowel series: No significant small bowel obstruction demonstrated; contrast transitethe entire GI tract in 3 hours -11/03 CT abd/p: 1. Dilated fluid and gas-filled small bowel loops with transition point in the right lower quadrant where there is swirling of mesenteric vessels and small bowel, concerning for volvulus causing obstruction. Wall thickening of the rectum may be secondary to fecal material versus proctitis. Obstructing stone measuring 1.2 cm in the proximal right ureter. Moderate to severe right hydronephrosis. Additional stones in the right kidney and right renal pelvis, measuring up to approximately 1.8 cm and the right renal pelvis. Small amount of free fluid in the pelvis. No abscess identified. -10/30 CXR: Right perihilar disease possibly atelectasis or pneumonia. No change -repeat u/a wbc tnct, nit +, leuk +3 -u/a wbc 19-15, nit +, leuk +2; ucx >100k P. mirabilis (Previously reporte as onlyS Genta, Ertapenem, Zosyn; now hs been updated to R Nitrofurantoin and otherwise S) -CXR: Low lung volumes with right perihilar atelectatic changes. No definite acute process -10/29 Bcx 4/ P. mirabilis (neri S), MRSA; repeat Bcx Neg; 10/30 BCxx 2/ P Mirabilis , 1/ E. fecalis (S Vanc, AMP); 11/01 Bcx 07/11 P. mirabilis, E. fecalis ; 11/04 BCx NTD -sp cx PsA (neri S), MRSA -2d Echo: no vegeatiosn Fever; SP Leukocytosis; SP GILDARDO, SP hx of UTI -07/2018 ucx E. fecalis (neri S), P. mirabilis -03/2019 ucx PsA TCP , SP CVA/TIA Dm2 CKD suprapubic catheter DVT hypertensive heart disease MD resident Plan: cont Zyvox #11 and Cefepime #10 ( monitor PLT ) for MRSA, enterococus and Proteus bacteremia, respectively (duration to follow) -11/02 SP Meropenem #4 -11/01 Sp Amikacin #4 , IV Vancomycin #3 -10/29 SP Ertapenem #1, IV Vancomycin x1 -f/u cx -Monitor CBC/CMP, temperatures -aspiration precautions -for TASNEEM to evaluate for endocarditis; scheduled for tomorrow Sunday 11/12 -f/u repeat Bcx x 2 -Uro, Cards, Sx f/u Subjective Allergies: Coded Allergies: VANCOMYCIN (Verified Allergy, Mild, Redness , 10/29/18) CIPROFLOXACIN (Verified Allergy, Unknown, 08/23/15) Subjective afebrile repeat Bcx NTD mild leukocytosis Objective Vital Signs Last 24 Hour Vital Signs Date Time Temp Pulse Resp B/P (MAP) Pulse Ox O2 Delivery O2 Flow Rate FiO2 11/11/18 12:00 100 11/11/18 12:00 97.4 96 17 107/74 (85) 97 11/11/18 09:00 Room Air 11/11/18 08:00 97 11/11/18 08:00 98.2 104 18 104/67 (79) 96 11/11/18 04:00 94 11/11/18 04:00 98.3 97 18 115/69 (84) 99 11/11/18 00:00 98.1 101 18 119/80 (93) 95 11/11/18 00:00 114 11/10/18 21:00 Room Air 11/10/18 20:00 107 11/10/18 20:00 98.1 106 16 115/77 (90) 95 11/10/18 16:00 97.7 106 20 105/79 (88) 95 11/10/18 16:00 108 Height (Feet): 5 Height (Inches): 8.00 Weight (Pounds): 236 Objective General Appearance: WD/WN, no apparent distress Lines, tubes and drains: peripheral, central line, gtube HEENT: normocephalic, atraumatic, anicteric Neck: non-tender, normal alignment Respiratory/Chest: chest wall non-tender, lungs clear Cardiovascular/Chest: normal peripheral pulses, normal rate Abdomen: normal bowel sounds Extremities: normal range of motion Microbiology Date/Time Source Procedure Growth Status 11/08/18 16:05 Drainage Fluid Gram Stain - Final Resulted 11/08/18 16:05 Body Fluid Culture - Preliminary Gram Positive Cocci Resulted Laboratory Tests Test 11/11/18 06:24 White Blood Count 11.5 K/UL (4.8-10.8) H Red Blood Count 3.70 M/UL (4.70-6.10) L Hemoglobin 10.8 G/DL (14.2-18.0) L Hematocrit 32.5 % (42.0-52.0) L Mean Corpuscular Volume 88 FL (80-99) Mean Corpuscular Hemoglobin 29.1 PG (27.0-31.0) Mean Corpuscular Hemoglobin Concent 33.0 G/DL (32.0-36.0) Red Cell Distribution Width 14.9 % (11.6-14.8) H Platelet Count 383 K/UL (150-450) Mean Platelet Volume 6.0 FL (6.5-10.1) L Neutrophils (%) (Auto) 59.1 % (45.0-75.0) Lymphocytes (%) (Auto) 29.5 % (20.0-45.0) Monocytes (%) (Auto) 9.7 % (1.0-10.0) Eosinophils (%) (Auto) 0.4 % (0.0-3.0) Basophils (%) (Auto) 1.4 % (0.0-2.0) Sodium Level 135 MMOL/L (136-145) L Potassium Level 4.5 MMOL/L (3.5-5.1) Chloride Level 102 MMOL/L (98-107) Carbon Dioxide Level 27 MMOL/L (21-32) Anion Gap 6 mmol/L (5-15) Blood Urea Nitrogen 17 mg/dL (7-18) Creatinine 1.1 MG/DL (0.55-1.30) Estimat Glomerular Filtration Rate > 60 mL/min (>60) Glucose Level 112 MG/DL (74-106) H Calcium Level 9.2 MG/DL (8.5-10.1) Total Protein (PEP) Pending Albumin (PEP) Pending Globulin (PEP) Pending Albumin/Globulin Ratio Pending Woapf-1-Kszikfcjx Pending Djynu-6-Corfokvib Pending Beta Globulins Pending Beta Gamma Globulin Pending PEP Abnormal Protein Bands Pending Protein Electrophoresis Interpret Pending Current Medications Medications (Trade) Dose Ordered Sig/Fab Route PRN Reason Start Time Stop Time Status Last Admin Dose Admin Acetaminophen (Tylenol) 650 mg Q4H PRN GT fever (temp>100.5 F) 11/10/18 02:30 11/28/18 17:29 Cefepime HCl 2 gm/ Dextrose 55 ml @ 110 mls/hr EVERY 8 HOURS IVPB 11/10/18 06:00 11/18/18 23:59 11/11/18 13:32 Diphenhydramine HCl (Benadryl) 25 mg Q6H PRN IVP Itching 11/10/18 05:30 11/28/18 17:29 Docusate Sodium (Colace) 100 mg THREE TIMES A DAY GT 11/10/18 09:00 12/01/18 17:59 11/11/18 12:50 Famotidine (Pepcid) 20 mg Q12HR GT 11/10/18 09:00 11/29/18 20:59 11/11/18 08:52 Heparin Sodium (Porcine) (Heparin 5000 units/ml) 5,000 units EVERY 12 HOURS SUBQ 11/10/18 09:00 11/28/18 08:59 11/10/18 09:10 Linezolid (Zyvox) 600 mg EVERY 12 HOURS GT 11/11/18 15:00 11/16/18 23:00 11/11/18 15:09 Metoclopramide HCl (Reglan) 5 mg EVERY 6 HOURS NG 11/10/18 06:00 12/09/18 11:59 11/11/18 12:50 Ondansetron HCl (Zofran) 4 mg Q6H PRN IVP Nausea & Vomiting 11/10/18 05:30 11/28/18 17:29 Polyethylene Glycol (Miralax) 17 gm DAILYPRN PRN GT Constipation 11/10/18 10:30 11/30/18 17:29 Dorothea Macario M.D. Nov 11, 2018 15:46
[2018-11-11 16:00] VITALS: BP 115/68
--- NOTE | 2018-11-11 17:50 | Pulmonology Progress Note ---
Assessment/Plan Problems: (1) Nephrostomy status (2) Septic shock (3) ATN (acute tubular necrosis) (4) COPD (chronic obstructive pulmonary disease) (5) Encephalopathy chronic (6) Obstructive hydrocephalus (7) History of DVT (deep vein thrombosis) (8) Suprapubic catheter (9) Aphasia (10) Feeding by G-tube (11) History of CVA (cerebrovascular accident) Assessment/Plan ding better TASNEEM for endocarditis more stable persistent bacteremia less tachy respiratory treatment titrate fio2 to sat of 92% renal function better. f/u urology recommendations Subjective ROS Limited/Unobtainable: No Constitutional: Reports: no symptoms HEENT: Repors: no symptoms Allergies: Coded Allergies: VANCOMYCIN (Verified Allergy, Mild, Redness , 10/29/18) CIPROFLOXACIN (Verified Allergy, Unknown, 08/23/15) Objective Last 24 Hour Vital Signs Date Time Temp Pulse Resp B/P (MAP) Pulse Ox O2 Delivery O2 Flow Rate FiO2 11/11/18 16:00 97.3 105 20 115/68 (84) 97 11/11/18 12:00 100 11/11/18 12:00 97.4 96 17 107/74 (85) 97 11/11/18 09:00 Room Air 11/11/18 08:00 97 11/11/18 08:00 98.2 104 18 104/67 (79) 96 11/11/18 04:00 94 11/11/18 04:00 98.3 97 18 115/69 (84) 99 11/11/18 00:00 98.1 101 18 119/80 (93) 95 11/11/18 00:00 114 11/10/18 21:00 Room Air 11/10/18 20:00 107 11/10/18 20:00 98.1 106 16 115/77 (90) 95 Intake and Output 11/10/18 11/11/18 19:00 07:00 Intake Total 310 ml 505 ml Output Total 650 ml 500 ml Balance -340 ml 5 ml Intake Free Water 200 ml 120 ml IV Total 165 ml Tube Feeding 110 ml 220 ml Output Urine Total 650 ml 300 ml Other 200 ml # Bowel Movements 1 General Appearance: WD/WN HEENT: normocephalic Respiratory/Chest: lungs clear, normal breath sounds Cardiovascular: normal peripheral pulses Abdomen: soft, non tender, non distended Extremities: no clubbing 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: no motor/sensory deficits Laboratory Tests 11/11/18 06:24: White Blood Count 11.5H, Red Blood Count 3.70L, Hemoglobin 10.8L, Hematocrit 32.5L, Mean Corpuscular Volume 88, Mean Corpuscular Hemoglobin 29.1, Mean Corpuscular Hemoglobin Concent 33.0, Red Cell Distribution Width 14.9H, Platelet Count 383, Mean Platelet Volume 6.0L, Neutrophils (%) (Auto) 59.1, Lymphocytes (%) (Auto) 29.5, Monocytes (%) (Auto) 9.7, Eosinophils (%) (Auto) 0.4, Basophils (%) (Auto) 1.4, Sodium Level 135L, Potassium Level 4.5, Chloride Level 102, Carbon Dioxide Level 27, Anion Gap 6, Blood Urea Nitrogen 17, Creatinine 1.1, Estimat Glomerular Filtration Rate > 60, Glucose Level 112H, Calcium Level 9.2, Total Protein (PEP) [Pending], Albumin (PEP) [Pending], Globulin (PEP) [Pending], Albumin/Globulin Ratio [Pending], Bfuqf-0-Utsomdnow [ Pending], Ltsow-8-Kikdiyych [Pending], Beta Globulins [Pending], Beta Gamma Globulin [Pending], PEP Abnormal Protein Bands [Pending], Protein Electrophoresis Interpret [Pending] Current Medications Medications (Trade) Dose Ordered Sig/Fab Route PRN Reason Start Time Stop Time Status Last Admin Dose Admin Acetaminophen (Tylenol) 650 mg Q4H PRN GT fever (temp>100.5 F) 11/10/18 02:30 11/28/18 17:29 Cefepime HCl 2 gm/ Dextrose 55 ml @ 110 mls/hr EVERY 8 HOURS IVPB 11/10/18 06:00 11/18/18 23:59 11/11/18 13:32 Diphenhydramine HCl (Benadryl) 25 mg Q6H PRN IVP Itching 11/10/18 05:30 11/28/18 17:29 Docusate Sodium (Colace) 100 mg THREE TIMES A DAY GT 11/10/18 09:00 12/01/18 17:59 11/11/18 17:37 Famotidine (Pepcid) 20 mg Q12HR GT 11/10/18 09:00 11/29/18 20:59 11/11/18 08:52 Heparin Sodium (Porcine) (Heparin 5000 units/ml) 5,000 units EVERY 12 HOURS SUBQ 11/10/18 09:00 11/28/18 08:59 11/10/18 09:10 Linezolid (Zyvox) 600 mg EVERY 12 HOURS GT 11/11/18 15:00 11/16/18 23:00 11/11/18 15:09 Metoclopramide HCl (Reglan) 5 mg EVERY 6 HOURS NG 11/10/18 06:00 12/09/18 11:59 11/11/18 17:38 Ondansetron HCl (Zofran) 4 mg Q6H PRN IVP Nausea & Vomiting 11/10/18 05:30 11/28/18 17:29 Polyethylene Glycol (Miralax) 17 gm DAILYPRN PRN GT Constipation 11/10/18 10:30 11/30/18 17:29 Rigoberto Bryant MD Nov 11, 2018 17:48
--- NOTE | 2018-11-11 19:58 | NUR ---
HAND-OFF: Report given to My, RN.
--- NOTE | 2018-11-11 19:59 | NUR ---
NURSE NOTES: Received pt and report from CANDI Chávez. Observed pt resting in bed with both eyes open. Pt is A/Ox1. manager monitoring is in placed, IV site intact, asymptomatic, and patent. Pt has a suprapubic catheter and nephrostomy tube on the right side; both patent and draining well. Pt is on G-tube feeding of Glucerna 1.5 @ 55cc/hr. Pt will be NPO at midnight for TASNEEM procedure tomorrow. Bed is in the lowest position and locked. Call light within reach. No signs and symptoms of acute distress noted at this time. Will continue plan of care.
[2018-11-11 20:00] VITALS: BP 132/86
[2018-11-12] VITALS (12 sets, daily range): BP systolic 110–124; BP diastolic 76–97
[2018-11-12] MEDS: Metoclopramide 10mg/10ml Liq NG SCH ×5 (00:03→23:45)
[2018-11-12] MEDS: Cefepime HCl 2 GM in D5W 55 ML IVPB SCH ×3 (05:40→21:35)
--- NOTE | 2018-11-12 06:30 | NUR ---
NURSE NOTES: Pt's Nephrostomy tube drainage is 450ml.
--- NOTE | 2018-11-12 06:38 | Anethesia Preoperative Eval ---
Anesthesia Pre-op PMH/ROS General Date of Evaluation: Nov 12, 2018 Time of Evaluation: 06:34 Anesthesiologist: enma ASA Score: ASA 4 Mallampati Score Class I : Soft palate, uvula, fauces, pillars visible Class II: Soft palate, uvula, fauces visible Class III: Soft palate, base of uvula visible Class IV: Only hard plate visible Mallampati Classification: Class II Surgeon: jessica Diagnosis: endocarditis Surgical Procedure: olga lidia Anesthesia History: none Social History: smoking - nonsmoker Family History: no anesthesia problems Allergies: Coded Allergies: VANCOMYCIN (Verified Allergy, Mild, Redness , 10/29/18) CIPROFLOXACIN (Verified Allergy, Unknown, 08/23/15) Medications: see eMAR Patient NPO?: Yes Past Medical History Cardiovascular: Reports: HTN, other - pacemaker, hypertensive cardiac disease Pulmonary: Reports: COPD Gastrointestinal/Genitourinary: Reports: GERD, ESRD, other - g-tube, dysphagia , gi bleed 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: Reports: CVA, depression/anxiety, TIA, other - seizure , paralysis, aphasia, encephalopathy, obstructive hydrocephalus Endocrine: Reports: DM HEENT: Reports: cataract (L), cataract (R) Hematology/Immune: Reports: anemia, DVT, other - septic shock Other: obesity Anesthesia Pre-op Phys. Exam Physician Exam Last Vital Signs Date Time Temp Pulse Resp B/P (MAP) Pulse Ox O2 Delivery O2 Flow Rate FiO2 11/12/18 04:00 98.4 106 19 117/79 (92) 95 11/11/18 21:00 Room Air 11/08/18 15:33 3.0 11/06/18 07:11 21 Constitutional: NAD Neurologic: other - paralysis and contractures Cardiovascular: RRR Respiratory: CTA Gastrointestinal: other - g-tube Airway Exam Mallampati Score: Class II MO: limited Neck: flexible TMD: 2fb Teeth: missing Anesthesia Pre-op A/P Labs Labs Test 11/10/18 06:43 11/11/18 06:24 11/12/18 05:26 White Blood Count 9.5 K/UL (4.8-10.8) 11.5 K/UL (4.8-10.8) 10.0 K/UL (4.8-10.8) Red Blood Count 3.78 M/UL (4.70-6.10) 3.70 M/UL (4.70-6.10) 3.82 M/UL (4.70-6.10) Hemoglobin 10.7 G/DL (14.2-18.0) 10.8 G/DL (14.2-18.0) 10.9 G/DL (14.2-18.0) Hematocrit 33.3 % (42.0-52.0) 32.5 % (42.0-52.0) 33.5 % (42.0-52.0) Mean Corpuscular Volume 88 FL (80-99) 88 FL (80-99) 88 FL (80-99) Mean Corpuscular Hemoglobin 28.3 PG (27.0-31.0) 29.1 PG (27.0-31.0) 28.5 PG (27.0-31.0) Mean Corpuscular Hemoglobin Concent 32.2 G/DL (32.0-36.0) 33.0 G/DL (32.0-36.0) 32.5 G/DL (32.0-36.0) Red Cell Distribution Width 14.3 % (11.6-14.8) 14.9 % (11.6-14.8) 15.4 % (11.6-14.8) Platelet Count 341 K/UL (150-450) 383 K/UL (150-450) 393 K/UL (150-450) Mean Platelet Volume 6.2 FL (6.5-10.1) 6.0 FL (6.5-10.1) 5.9 FL (6.5-10.1) Neutrophils (%) (Auto) 57.4 % (45.0-75.0) 59.1 % (45.0-75.0) 53.1 % (45.0-75.0) Lymphocytes (%) (Auto) 29.7 % (20.0-45.0) 29.5 % (20.0-45.0) 34.0 % (20.0-45.0) Monocytes (%) (Auto) 10.3 % (1.0-10.0) 9.7 % (1.0-10.0) 9.9 % (1.0-10.0) Eosinophils (%) (Auto) 0.9 % (0.0-3.0) 0.4 % (0.0-3.0) 0.8 % (0.0-3.0) Basophils (%) (Auto) 1.7 % (0.0-2.0) 1.4 % (0.0-2.0) 2.3 % (0.0-2.0) Sodium Level 134 MMOL/L (136-145) 135 MMOL/L (136-145) 136 MMOL/L (136-145) Potassium Level 4.3 MMOL/L (3.5-5.1) 4.5 MMOL/L (3.5-5.1) 4.5 MMOL/L (3.5-5.1) Chloride Level 101 MMOL/L (98-107) 102 MMOL/L (98-107) 101 MMOL/L (98-107) Carbon Dioxide Level 25 MMOL/L (21-32) 27 MMOL/L (21-32) 28 MMOL/L (21-32) Anion Gap 8 mmol/L (5-15) 6 mmol/L (5-15) 8 mmol/L (5-15) Blood Urea Nitrogen 21 mg/dL (7-18) 17 mg/dL (7-18) 18 mg/dL (7-18) Creatinine 1.1 MG/DL (0.55-1.30) 1.1 MG/DL (0.55-1.30) 1.1 MG/DL (0.55-1.30) Estimat Glomerular Filtration Rate > 60 mL/min (>60) > 60 mL/min (>60) > 60 mL/min (>60) Glucose Level 136 MG/DL (74-106) 112 MG/DL (74-106) 102 MG/DL (74-106) Calcium Level 8.9 MG/DL (8.5-10.1) 9.2 MG/DL (8.5-10.1) 9.1 MG/DL (8.5-10.1) Risk Assessment & Plan Assessment: [email or web address] Plan: mac Status Change Before Surgery: No Pre-Antibiotics Drug: Claudia Bartlett MD Nov 12, 2018 06:38
[2018-11-12] MEDS ORDERED: Atropine Inj 1mg/10ml Syr IV PRN (06:45)
[2018-11-12] MEDS ORDERED: DiphenhydrAMINE 50mg/ml Inj IVP PRN (06:45)
[2018-11-12] MEDS ORDERED: Midazolam 2mg/2ml Inj IVP PRN (06:45)
[2018-11-12 07:07] LABS: BASOPHILS % (AUTO) 2.3 % (0.0-2.0); EOSINOPHILS % (AUTO) 0.8 % (0.0-3.0); HEMATOCRIT 33.5 % (42.0-52.0); HEMOGLOBIN 10.9 G/DL (14.2-18.0); MEAN CORPUSCULAR VOLUME 88 FL (80-99); MONOCYTES % (AUTO) 9.9 % (1.0-10.0); NEUTROPHILS % (AUTO) 53.1 % (45.0-75.0); PLATELET COUNT 393 K/UL (150-450); RED BLOOD COUNT 3.82 M/UL (4.70-6.10); RED CELL DISTRIBUTION WIDTH 15.4 % (11.6-14.8)
[2018-11-12 07:13] LABS: ANION GAP 8 mmol/L (5-15); BLOOD UREA NITROGEN 18 mg/dL (7-18); CALCIUM 9.1 MG/DL (8.5-10.1); CARBON DIOXIDE 28 MMOL/L (21-32); CHLORIDE 101 MMOL/L (98-107); CREATININE 1.1 MG/DL (0.55-1.30); POTASSIUM 4.5 MMOL/L (3.5-5.1); SODIUM 136 MMOL/L (136-145)
[2018-11-12] MEDS ORDERED: NS 500ML IVPB ONE (07:15)
--- NOTE | 2018-11-12 07:30 | NUR ---
NURSE NOTES: Report received from CANDI Smith. Pt shows no signs of distress, A+Ox1, no signs of pain/SOB. Respirations are even and unlabored on room air. IV site is intact, and saline locked. Pt is NPO for TASNEEM. G-tube is patent. Suprapubic is in place and draining to gravity. Nephrostomy tube in place and draining. Seizure precautions in place. Pt is in stable condition and on his way down for procedure.
[2018-11-12] MEDS ORDERED: Propofol 200mg/20ml IV ONE (07:35)
[2018-11-12] MEDS ORDERED: NS 275ml ONE (07:35)
--- NOTE | 2018-11-12 07:42 | Cardiology Progress Note ---
Assessment/Plan Assessment/Plan [id number] Objective Last 24 Hour Vital Signs Date Time Temp Pulse Resp B/P (MAP) Pulse Ox O2 Delivery O2 Flow Rate FiO2 11/12/18 04:00 98.4 106 19 117/79 (92) 95 11/12/18 04:00 108 11/12/18 00:00 123 11/12/18 00:00 98.4 113 20 124/76 (92) 96 11/11/18 21:00 Room Air 11/11/18 20:00 71 11/11/18 20:00 99.0 87 20 132/86 (101) 95 11/11/18 16:00 97.3 105 20 115/68 (84) 97 11/11/18 16:00 120 11/11/18 12:00 100 11/11/18 12:00 97.4 96 17 107/74 (85) 97 11/11/18 09:00 Room Air 11/11/18 08:00 97 11/11/18 08:00 98.2 104 18 104/67 (79) 96 Intake and Output 11/11/18 11/12/18 19:00 07:00 Output Total 700 ml 600 ml Balance -700 ml -600 ml Output Urine Total 700 ml 600 ml Laboratory Tests Test 11/12/18 05:26 White Blood Count 10.0 K/UL (4.8-10.8) Red Blood Count 3.82 M/UL (4.70-6.10) L Hemoglobin 10.9 G/DL (14.2-18.0) L Hematocrit 33.5 % (42.0-52.0) L Mean Corpuscular Volume 88 FL (80-99) Mean Corpuscular Hemoglobin 28.5 PG (27.0-31.0) Mean Corpuscular Hemoglobin Concent 32.5 G/DL (32.0-36.0) Red Cell Distribution Width 15.4 % (11.6-14.8) H Platelet Count 393 K/UL (150-450) Mean Platelet Volume 5.9 FL (6.5-10.1) L Neutrophils (%) (Auto) 53.1 % (45.0-75.0) Lymphocytes (%) (Auto) 34.0 % (20.0-45.0) Monocytes (%) (Auto) 9.9 % (1.0-10.0) Eosinophils (%) (Auto) 0.8 % (0.0-3.0) Basophils (%) (Auto) 2.3 % (0.0-2.0) H Sodium Level 136 MMOL/L (136-145) Potassium Level 4.5 MMOL/L (3.5-5.1) Chloride Level 101 MMOL/L (98-107) Carbon Dioxide Level 28 MMOL/L (21-32) Anion Gap 8 mmol/L (5-15) Blood Urea Nitrogen 18 mg/dL (7-18) Creatinine 1.1 MG/DL (0.55-1.30) Estimat Glomerular Filtration Rate > 60 mL/min (>60) Glucose Level 102 MG/DL (74-106) Calcium Level 9.1 MG/DL (8.5-10.1) Bari Lebron MD Nov 12, 2018 07:42
--- NOTE | 2018-11-12 07:43 | Pre-Procedure Note/Attestation ---
Pre-Procedure Note/Attestation Complete Prior to Procedure Procedure Narrative: olga lidia Indications for Procedure Pre-Operative Diagnosis: bacteremia Attestation I attest that I discussed the nature of the procedure; its benefits; risks and complications; and alternatives (and the risks and benefits of such alternatives ), prior to the procedure, with the patient (or the patient's legal medical customer service representative). I attest that, if there was a reasonable possibility of needing a blood transfusion, the patient (or the patient's legal medical customer service representative) was given the [facility] standardized written summary, pursuant to the [place] Blood Safety Act ([place] Health and Safety Code # 1645, as amended). I attest that I re-evaluated the patient just prior to the surgery and that there has been no change in the patient's H&P, except as documented below: dctated note Bari Lebron MD Nov 12, 2018 07:43
--- NOTE | 2018-11-12 07:52 | NUR ---
HAND-OFF: Pt went down for TASNEEM procedure. Report given to CANDI Solis.
--- NOTE | 2018-11-12 08:07 | Brief Operative Note ---
Immediate Post Operative Note Operative Note Chief Complaint: hypotesnsion Pre-op Diagnosis: bacteremia Procedure: olga lidia, Post-op Diagnosis: bacteremia , no evidence for vegetations Surgeon: [email or web address] Anesthesia: moderate sedation Specimen: none Complications: none Condition: stable Fluids: none Estimated Blood Loss: none Drains: none Implant(s) used?: No Bari Lebron MD Nov 12, 2018 08:07
--- NOTE | 2018-11-12 08:16 | Cardiology Progress Note ---
Assessment/Plan Assessment/Plan olga lidia performed no vegatation noted on ath aortic mitral or to the exten viuslaized the tricupidc valves the pulmonic valve was poorly visualized [id number] Objective Last 24 Hour Vital Signs Date Time Temp Pulse Resp B/P (MAP) Pulse Ox O2 Delivery O2 Flow Rate FiO2 11/12/18 04:00 98.4 106 19 117/79 (92) 95 11/12/18 04:00 108 11/12/18 00:00 123 11/12/18 00:00 98.4 113 20 124/76 (92) 96 11/11/18 21:00 Room Air 11/11/18 20:00 71 11/11/18 20:00 99.0 87 20 132/86 (101) 95 11/11/18 16:00 97.3 105 20 115/68 (84) 97 11/11/18 16:00 120 11/11/18 12:00 100 11/11/18 12:00 97.4 96 17 107/74 (85) 97 11/11/18 09:00 Room Air Intake and Output 11/11/18 11/12/18 19:00 07:00 Output Total 700 ml 600 ml Balance -700 ml -600 ml Output Urine Total 700 ml 600 ml Laboratory Tests Test 11/12/18 05:26 White Blood Count 10.0 K/UL (4.8-10.8) Red Blood Count 3.82 M/UL (4.70-6.10) L Hemoglobin 10.9 G/DL (14.2-18.0) L Hematocrit 33.5 % (42.0-52.0) L Mean Corpuscular Volume 88 FL (80-99) Mean Corpuscular Hemoglobin 28.5 PG (27.0-31.0) Mean Corpuscular Hemoglobin Concent 32.5 G/DL (32.0-36.0) Red Cell Distribution Width 15.4 % (11.6-14.8) H Platelet Count 393 K/UL (150-450) Mean Platelet Volume 5.9 FL (6.5-10.1) L Neutrophils (%) (Auto) 53.1 % (45.0-75.0) Lymphocytes (%) (Auto) 34.0 % (20.0-45.0) Monocytes (%) (Auto) 9.9 % (1.0-10.0) Eosinophils (%) (Auto) 0.8 % (0.0-3.0) Basophils (%) (Auto) 2.3 % (0.0-2.0) H Sodium Level 136 MMOL/L (136-145) Potassium Level 4.5 MMOL/L (3.5-5.1) Chloride Level 101 MMOL/L (98-107) Carbon Dioxide Level 28 MMOL/L (21-32) Anion Gap 8 mmol/L (5-15) Blood Urea Nitrogen 18 mg/dL (7-18) Creatinine 1.1 MG/DL (0.55-1.30) Estimat Glomerular Filtration Rate > 60 mL/min (>60) Glucose Level 102 MG/DL (74-106) Calcium Level 9.1 MG/DL (8.5-10.1) Bari Lebron MD Nov 12, 2018 08:16
--- NOTE | 2018-11-12 08:32 | Immediate Post-Op Evaluation ---
Immediate Post-Op Evalulation Immediate Post-Op Evalulation Procedure: olga lidia Date of Evaluation: Nov 12, 2018 Time of Evaluation: 08:25 IV Fluids: 275ml 0.9ns Blood Products: none Estimated Blood Loss: negligible Blood Pressure Systolic: 112 Blood Pressure Diastolic: 82 Pulse Rate: 97 Respiratory Rate: 18 O2 Sat by Pulse Oximetry: 100 Temperature (Fahrenheit): 97.9 Pain Score (1-10): 0 Nausea: No Vomiting: No Complications none Patient Status: awake, reacts, patent Hydration Status: adequate Drug: Claudia Bartlett MD Nov 12, 2018 08:32
--- NOTE | 2018-11-12 08:34 | 48 Hour Post Anesthesia Eval ---
Post Anesthesia Evaluation Procedure: olga lidia Date of Evaluation: Nov 12, 2018 Time of Evaluation: 08:27 Blood Pressure Systolic: 117 0: 88 Pulse Rate: 95 Respiratory Rate: 18 Temperature (Fahrenheit): 97.9 O2 Sat by Pulse Oximetry: 100 Airway: patent Nausea: No Vomiting: No Pain Intensity: 0 Hydration Status: adequate Cardiopulmonary Status: stable Mental Status/LOC: patient returned to baseline Post-Anesthesia Complications: none Follow-up care needed: N/A Claudia Espinoza MD Nov 12, 2018 08:34
[2018-11-12] MEDS: Docusate 100mg/10ml Liq GT SCH ×2 (09:00→12:27)
[2018-11-12] MEDS: Heparin 5000 units/ml inj SUBQ SCH ×2 (09:00→21:36)
--- NOTE | 2018-11-12 09:15 | Hematology/Onc Progress Note ---
Assessment/Plan Assessment/Plan # Anemia due to underlying chronic disease, multifactorial, elev inflamm markers --> anemia panel ordered, likely ferritin will be high - reviewed, ferritin at 294 --> hgb trend as 9-->6.7-->10-->11-->10-->10.4-->11.1-->10.6-->10.8-->10.9 --> monitor for hematuria --> hgb goal >7, transfuse prn --> cysto as needed per urology/potential nephrostomy exchange --> dw Dr. Funk on 11/08/18 # Leukocytosis likely due to uti, mdr v gi process --> monitor for improvement --> now has been started on linezolid/cefepime --> id and cards recs reviewed --> ct with potential volvulus v proctitis, have consulted gi --> wbc trend 22-->16-->14-->13.1-->12.6-->9.5-->12 # Septic Shock s/p and dehydration, lactic acidosis 2.4. Off levophed and on IV antibiotics --> per id MRSA/ P. Mirabilis bacteremia may need to r/o endocarditis --> on abx as per id recs # Sinus tachycardia 140s likely due to sepsis with fever, HR better --> monitor closely for improvement with cards --> per cards # Hypernatremia --> trend na with renal # Renal failure --> renal recs # CVA with paraplegia # s/p nephrostomy tube The timing of this note does not necessarily reflect the time of the patient was seen. GREATLY APPRECIATE CONSULTATION. Subjective Constitutional: Denies: no symptoms, chills, fever, malaise, weakness, other HEENT: Denies: no symptoms, eye pain, blurred vision, tearing, double vision, ear pain, ear discharge, nose pain, nose congestion, throat pain, throat swelling, mouth pain, mouth swelling, other Cardiovascular: Denies: no symptoms, chest pain, edema, irregular heart rate, lightheadedness, palpitations, syncope, other Gastrointestinal/Abdominal: Denies: no symptoms, abdomen distended, abdominal pain, black stools, tarry stools, blood in stool, constipated, diarrhea, difficulty swallowing, nausea, poor appetite, poor fluid intake, rectal bleeding , vomiting, other Genitourinary: Denies: no symptoms, burning, discharge, frequency, flank pain, hematuria, incontinence, pain, urgency, other Allergies: Coded Allergies: VANCOMYCIN (Verified Allergy, Mild, Redness , 10/29/18) CIPROFLOXACIN (Verified Allergy, Unknown, 08/23/15) Subjective 10/31: dc to med surg from icu, doing better 11/01: given 500cc ns for low bp, pcp was made aware as well as cards 11/02: on zyvox and cefepime, no fc, no bleeding, on feedings 11/03: on abx still, seen by id, and cards, r/o bacteremia induced by valve abnml 11/04: iv is on the right foot, pending potentially picc 11/05: labs have been reviewed, no f/c, no night sweats, seen by uro last night 11/06: anemia w/u reviewed, ferritin at 294, h/h stable, olga lidia postponed 11/07: no events noted, no f/c, on gtube feeds, no bleeding 11/08: npo for possible gtube/nephrostomy procedure, gtube is intact, no f/c 11/10: no events to report, no night sweats, no bleeding, cbc reviewed 11/11: potential olga lidia scheduled, gtube feeds to be advanced, no night sweats, no f 11/12: olga lidia was done and negative, for vegetations Objective Objective Current Medications Medications (Trade) Dose Ordered Sig/Fab Route PRN Reason Start Time Stop Time Status Last Admin Dose Admin Acetaminophen (Tylenol) 650 mg Q4H PRN GT fever (temp>100.5 F) 11/10/18 02:30 11/28/18 17:29 Acetaminophen (Tylenol) 650 mg Q4H PRN ORAL Mild Pain (Pain Scale 1-3) 11/12/18 06:45 11/12/18 16:00 Al Hydroxide/Mg Hydroxide (Mylanta) 15 ml Q1H PRN ORAL gi upset 11/12/18 06:45 11/12/18 16:00 Atropine Sulfate (Atropine) 0.5 mg Q5M PRN IV bpm less than 45 11/12/18 06:45 11/12/18 16:00 Cefepime HCl 2 gm/ Dextrose 55 ml @ 110 mls/hr EVERY 8 HOURS IVPB 11/10/18 06:00 11/18/18 23:59 11/12/18 05:40 Diphenhydramine HCl (Benadryl) 25 mg Q15M PRN IVP Itching 11/12/18 06:45 11/12/18 16:00 Diphenhydramine HCl (Benadryl) 25 mg Q6H PRN IVP Itching 11/10/18 05:30 11/28/18 17:29 Docusate Sodium (Colace) 100 mg THREE TIMES A DAY GT 11/10/18 09:00 12/01/18 17:59 11/11/18 17:37 Famotidine (Pepcid) 20 mg Q12HR GT 11/10/18 09:00 11/29/18 20:59 11/11/18 21:34 Heparin Sodium (Porcine) (Heparin 5000 units/ml) 5,000 units EVERY 12 HOURS SUBQ 11/10/18 09:00 11/28/18 08:59 11/10/18 09:10 Hydralazine HCl (Apresoline) 5 mg Q30M PRN IV SBP>160 OR___/DBP>90 OR___ 11/12/18 06:45 11/12/18 16:00 Linezolid (Zyvox) 600 mg EVERY 12 HOURS GT 11/11/18 15:00 11/16/18 23:00 11/11/18 21:33 Metoclopramide HCl (Reglan) 5 mg EVERY 6 HOURS NG 11/10/18 06:00 12/09/18 11:59 11/12/18 05:40 Midazolam HCl (Versed 2mg/2ml vial) 1 mg Q15M PRN IVP For Anxiety 11/12/18 06:45 11/12/18 16:00 Ondansetron HCl (Zofran) 4 mg Q1H PRN IVP Nausea & Vomiting 11/12/18 06:45 11/12/18 16:00 Ondansetron HCl (Zofran) 4 mg Q6H PRN IVP Nausea & Vomiting 11/10/18 05:30 11/28/18 17:29 Polyethylene Glycol (Miralax) 17 gm DAILYPRN PRN GT Constipation 11/10/18 10:30 11/30/18 17:29 Last 24 Hour Vital Signs Date Time Temp Pulse Resp B/P (MAP) Pulse Ox O2 Delivery O2 Flow Rate FiO2 11/12/18 08:43 88 20 123/97 99 Nasal Cannula 3 11/12/18 08:34 95 18 100 11/12/18 08:33 95 22 116/86 98 Nasal Cannula 3 96 11/12/18 08:32 97 18 100 11/12/18 08:29 97.0 99 20 112/82 95 Nasal Cannula 3 11/12/18 08:23 93 22 111/83 95 Nasal Cannula 3 11/12/18 08:13 97.0 99 22 112/82 95 Nasal Cannula 3 11/12/18 04:00 98.4 106 19 117/79 (92) 95 11/12/18 04:00 108 11/12/18 00:00 123 11/12/18 00:00 98.4 113 20 124/76 (92) 96 11/11/18 21:00 Room Air 11/11/18 20:00 71 11/11/18 20:00 99.0 87 20 132/86 (101) 95 11/11/18 16:00 97.3 105 20 115/68 (84) 97 11/11/18 16:00 120 11/11/18 12:00 100 11/11/18 12:00 97.4 96 17 107/74 (85) 97 11/11/18 09:00 Room Air 11/11/18 08:00 97 11/11/18 08:00 98.2 104 18 104/67 (79) 96 11/11/18 04:00 94 11/11/18 04:00 98.3 97 18 115/69 (84) 99 11/11/18 00:00 98.1 101 18 119/80 (93) 95 11/11/18 00:00 114 11/10/18 21:00 Room Air 11/10/18 20:00 107 11/10/18 20:00 98.1 106 16 115/77 (90) 95 11/10/18 16:00 97.7 106 20 105/79 (88) 95 11/10/18 16:00 108 11/10/18 12:00 97.9 102 20 119/81 (94) 96 11/10/18 12:00 97 Intake and Output 11/11/18 11/12/18 19:00 07:00 Output Total 700 ml 600 ml Balance -700 ml -600 ml Output Urine Total 700 ml 600 ml Labs Test 11/10/18 06:43 11/11/18 06:24 11/12/18 05:26 White Blood Count 9.5 K/UL (4.8-10.8) 11.5 K/UL (4.8-10.8) 10.0 K/UL (4.8-10.8) Red Blood Count 3.78 M/UL (4.70-6.10) 3.70 M/UL (4.70-6.10) 3.82 M/UL (4.70-6.10) Hemoglobin 10.7 G/DL (14.2-18.0) 10.8 G/DL (14.2-18.0) 10.9 G/DL (14.2-18.0) Hematocrit 33.3 % (42.0-52.0) 32.5 % (42.0-52.0) 33.5 % (42.0-52.0) Mean Corpuscular Volume 88 FL (80-99) 88 FL (80-99) 88 FL (80-99) Mean Corpuscular Hemoglobin 28.3 PG (27.0-31.0) 29.1 PG (27.0-31.0) 28.5 PG (27.0-31.0) Mean Corpuscular Hemoglobin Concent 32.2 G/DL (32.0-36.0) 33.0 G/DL (32.0-36.0) 32.5 G/DL (32.0-36.0) Red Cell Distribution Width 14.3 % (11.6-14.8) 14.9 % (11.6-14.8) 15.4 % (11.6-14.8) Platelet Count 341 K/UL (150-450) 383 K/UL (150-450) 393 K/UL (150-450) Mean Platelet Volume 6.2 FL (6.5-10.1) 6.0 FL (6.5-10.1) 5.9 FL (6.5-10.1) Neutrophils (%) (Auto) 57.4 % (45.0-75.0) 59.1 % (45.0-75.0) 53.1 % (45.0-75.0) Lymphocytes (%) (Auto) 29.7 % (20.0-45.0) 29.5 % (20.0-45.0) 34.0 % (20.0-45.0) Monocytes (%) (Auto) 10.3 % (1.0-10.0) 9.7 % (1.0-10.0) 9.9 % (1.0-10.0) Eosinophils (%) (Auto) 0.9 % (0.0-3.0) 0.4 % (0.0-3.0) 0.8 % (0.0-3.0) Basophils (%) (Auto) 1.7 % (0.0-2.0) 1.4 % (0.0-2.0) 2.3 % (0.0-2.0) Sodium Level 134 MMOL/L (136-145) 135 MMOL/L (136-145) 136 MMOL/L (136-145) Potassium Level 4.3 MMOL/L (3.5-5.1) 4.5 MMOL/L (3.5-5.1) 4.5 MMOL/L (3.5-5.1) Chloride Level 101 MMOL/L (98-107) 102 MMOL/L (98-107) 101 MMOL/L (98-107) Carbon Dioxide Level 25 MMOL/L (21-32) 27 MMOL/L (21-32) 28 MMOL/L (21-32) Anion Gap 8 mmol/L (5-15) 6 mmol/L (5-15) 8 mmol/L (5-15) Blood Urea Nitrogen 21 mg/dL (7-18) 17 mg/dL (7-18) 18 mg/dL (7-18) Creatinine 1.1 MG/DL (0.55-1.30) 1.1 MG/DL (0.55-1.30) 1.1 MG/DL (0.55-1.30) Estimat Glomerular Filtration Rate > 60 mL/min (>60) > 60 mL/min (>60) > 60 mL/min (>60) Glucose Level 136 MG/DL (74-106) 112 MG/DL (74-106) 102 MG/DL (74-106) Calcium Level 8.9 MG/DL (8.5-10.1) 9.2 MG/DL (8.5-10.1) 9.1 MG/DL (8.5-10.1) Height (Feet): 5 Height (Inches): 8.00 Weight (Pounds): 235 Objective PE Gen: A+O x1, NAD HEENT: normocephalic, atraumatic Neck: non-tender, normal alignment Chest: chest wall non-tender, lungs clear CV: normal peripheral pulses, normal rate Abdomen: normal bowel sounds, non tender ++ peg ++ suprapubic catheter Extremities: normal range of motion Nathan Ludwig MD Nov 12, 2018 09:15
--- NOTE | 2018-11-12 10:27 | GI Progress Note ---
Assessment/Plan Problems: (1) Aphasia ICD Codes: R47.01 - Aphasia SNOMED: 57545279 (2) Anemia ICD Codes: D64.9 - Anemia, unspecified SNOMED: 773420252 (3) Fecal impaction ICD Codes: K56.41 - Fecal impaction SNOMED: 49455038 (4) Proctitis ICD Codes: K62.89 - Other specified diseases of anus and rectum SNOMED: 6818902 (5) Volvulus ICD Codes: K56.2 - Volvulus SNOMED: 4153886 Status: unchanged Status Narrative Discussed with Dr. Faust. Assessment/Plan SBFT negative OB stool negative Anemia work-up reviewed Prevacid Monitor H&H, PRN transfusions Bowel regimen turn q2 hours Follow-up labs on low dose reglan increase GTF as tolerated to goal rate s/p nephrostomy tube placement fu TASNEEM outpatient GI procedures The patient was seen and examined at bedside and all new and available data was reviewed in the patients chart. I agree with the above findings, impression and plan. (Patient seen earlier today. Signature stamp does not reflect patient encounter time.). - Deep Faust MD Subjective Subjective limited Objective Last 24 Hour Vital Signs Date Time Temp Pulse Resp B/P (MAP) Pulse Ox O2 Delivery O2 Flow Rate FiO2 11/12/18 08:55 97.0 97 19 110/82 100 Nasal Cannula 3 11/12/18 08:43 88 20 123/97 99 Nasal Cannula 3 11/12/18 08:34 95 18 100 11/12/18 08:33 96 22 116/86 98 Nasal Cannula 3 11/12/18 08:32 97 18 100 11/12/18 08:29 99 20 112/82 95 Nasal Cannula 3 11/12/18 08:23 93 22 111/83 95 Nasal Cannula 3 11/12/18 08:18 91 20 120/86 99 Nasal Cannula 3 11/12/18 08:13 97.0 99 22 112/82 95 Nasal Cannula 3 11/12/18 04:00 98.4 106 19 117/79 (92) 95 11/12/18 04:00 108 11/12/18 00:00 123 11/12/18 00:00 98.4 113 20 124/76 (92) 96 11/11/18 21:00 Room Air 11/11/18 20:00 71 11/11/18 20:00 99.0 87 20 132/86 (101) 95 11/11/18 16:00 97.3 105 20 115/68 (84) 97 11/11/18 16:00 120 11/11/18 12:00 100 11/11/18 12:00 97.4 96 17 107/74 (85) 97 Intake and Output 11/11/18 11/12/18 19:00 07:00 Output Total 700 ml 600 ml Balance -700 ml -600 ml Output Urine Total 700 ml 600 ml Laboratory Tests Test 11/12/18 05:26 White Blood Count 10.0 K/UL (4.8-10.8) Red Blood Count 3.82 M/UL (4.70-6.10) L Hemoglobin 10.9 G/DL (14.2-18.0) L Hematocrit 33.5 % (42.0-52.0) L Mean Corpuscular Volume 88 FL (80-99) Mean Corpuscular Hemoglobin 28.5 PG (27.0-31.0) Mean Corpuscular Hemoglobin Concent 32.5 G/DL (32.0-36.0) Red Cell Distribution Width 15.4 % (11.6-14.8) H Platelet Count 393 K/UL (150-450) Mean Platelet Volume 5.9 FL (6.5-10.1) L Neutrophils (%) (Auto) 53.1 % (45.0-75.0) Lymphocytes (%) (Auto) 34.0 % (20.0-45.0) Monocytes (%) (Auto) 9.9 % (1.0-10.0) Eosinophils (%) (Auto) 0.8 % (0.0-3.0) Basophils (%) (Auto) 2.3 % (0.0-2.0) H Sodium Level 136 MMOL/L (136-145) Potassium Level 4.5 MMOL/L (3.5-5.1) Chloride Level 101 MMOL/L (98-107) Carbon Dioxide Level 28 MMOL/L (21-32) Anion Gap 8 mmol/L (5-15) Blood Urea Nitrogen 18 mg/dL (7-18) Creatinine 1.1 MG/DL (0.55-1.30) Estimat Glomerular Filtration Rate > 60 mL/min (>60) Glucose Level 102 MG/DL (74-106) Calcium Level 9.1 MG/DL (8.5-10.1) Height (Feet): 5 Height (Inches): 8.00 Weight (Pounds): 235 General Appearance: WD/WN, no apparent distress, alert Cardiovascular: normal rate Respiratory/Chest: normal breath sounds, no respiratory distress Abdominal Exam: normal bowel sounds, non tender, soft, GT site Extremities: normal range of motion, non-tender Nevaeh Ocampo NP Nov 12, 2018 10:27
--- NOTE | 2018-11-12 10:39 | Surgery Progress Note ---
Surgery Progress Note Subjective Additional Comments leukocytosis resolved labs improved exam stable tolerating feeds tube in place. Objective Last 24 Hour Vital Signs Date Time Temp Pulse Resp B/P (MAP) Pulse Ox O2 Delivery O2 Flow Rate FiO2 11/12/18 08:55 97.0 97 19 110/82 100 Nasal Cannula 3 11/12/18 08:43 88 20 123/97 99 Nasal Cannula 3 11/12/18 08:34 95 18 100 11/12/18 08:33 96 22 116/86 98 Nasal Cannula 3 11/12/18 08:32 97 18 100 11/12/18 08:29 99 20 112/82 95 Nasal Cannula 3 11/12/18 08:23 93 22 111/83 95 Nasal Cannula 3 11/12/18 08:18 91 20 120/86 99 Nasal Cannula 3 11/12/18 08:13 97.0 99 22 112/82 95 Nasal Cannula 3 11/12/18 04:00 98.4 106 19 117/79 (92) 95 11/12/18 04:00 108 11/12/18 00:00 123 11/12/18 00:00 98.4 113 20 124/76 (92) 96 11/11/18 21:00 Room Air 11/11/18 20:00 71 11/11/18 20:00 99.0 87 20 132/86 (101) 95 11/11/18 16:00 97.3 105 20 115/68 (84) 97 11/11/18 16:00 120 11/11/18 12:00 100 11/11/18 12:00 97.4 96 17 107/74 (85) 97 I&O Intake and Output 11/11/18 11/12/18 19:00 07:00 Output Total 700 ml 600 ml Balance -700 ml -600 ml Output Urine Total 700 ml 600 ml Dressing: dry Wound: clean Drains: other Cardiovascular: RSR Respiratory: clear, decreased breath sounds Abdomen: soft, present bowel sounds, non-distended Extremities: no cyanosis Laboratory Tests Test 11/12/18 05:26 White Blood Count 10.0 K/UL (4.8-10.8) Red Blood Count 3.82 M/UL (4.70-6.10) L Hemoglobin 10.9 G/DL (14.2-18.0) L Hematocrit 33.5 % (42.0-52.0) L Mean Corpuscular Volume 88 FL (80-99) Mean Corpuscular Hemoglobin 28.5 PG (27.0-31.0) Mean Corpuscular Hemoglobin Concent 32.5 G/DL (32.0-36.0) Red Cell Distribution Width 15.4 % (11.6-14.8) H Platelet Count 393 K/UL (150-450) Mean Platelet Volume 5.9 FL (6.5-10.1) L Neutrophils (%) (Auto) 53.1 % (45.0-75.0) Lymphocytes (%) (Auto) 34.0 % (20.0-45.0) Monocytes (%) (Auto) 9.9 % (1.0-10.0) Eosinophils (%) (Auto) 0.8 % (0.0-3.0) Basophils (%) (Auto) 2.3 % (0.0-2.0) H Sodium Level 136 MMOL/L (136-145) Potassium Level 4.5 MMOL/L (3.5-5.1) Chloride Level 101 MMOL/L (98-107) Carbon Dioxide Level 28 MMOL/L (21-32) Anion Gap 8 mmol/L (5-15) Blood Urea Nitrogen 18 mg/dL (7-18) Creatinine 1.1 MG/DL (0.55-1.30) Estimat Glomerular Filtration Rate > 60 mL/min (>60) Glucose Level 102 MG/DL (74-106) Calcium Level 9.1 MG/DL (8.5-10.1) Plan Problems: (1) Volvulus Assessment & Plan: This is a 58-year-old male currently admitted for work-up of sepsis who was identified to have a leukocytosis, tachycardia, bacteremia. Patient is currently on IV antibiotics and slowly improving. On recent CT scan he was identified to have a potential volvulus. On examination clinically patient does not seem to have volvulus or bowel obstruction. His abdomen is soft nondistended nontender and with positive bowel sounds. He is tolerating tube feeds through his G-tube and having bowel movements and passing flatus. Swirling of the mesentery noted on CT scan concerning and will follow with serial exams and recommendations. For now okay to continue with tube feeds. Thank you for this consultation Small bowel series noted. No obstruction noted. okay for diet will monitor KUB noted. Still with ileus. Continues to have bowel movements and tolerate diet. Continue with current care plan (2) Fecal impaction Assessment & Plan: IMPRESSION: 1. Dilated fluid and gas-filled small bowel loops with transition point in the right lower quadrant where there is swirling of mesenteric vessels and small bowel, concerning for volvulus causing obstruction. 2. Wall thickening of the rectum may be secondary to fecal material versus proctitis. 3. Obstructing stone measuring 1.2 cm in the proximal right ureter. Moderate to severe right hydronephrosis. Additional stones in the right kidney and right renal pelvis, measuring up to approximately 1.8 cm and the right renal pelvis. 4. Small amount of free fluid in the pelvis. No abscess identified. (3) Sepsis Assessment & Plan: There is an obstructing stone within the ureter which is causing moderate severe hydronephrosis. The urinalysis demonstrated bacteria similar to that of his bacteremia. Potential etiology of sepsis and above is these obstructing stone. appreciate urological evaluation. nephrostomy tube placed cont with current care plan Thank you (4) Anemia (5) Proctitis (6) Gastrostomy tube dependent (7) Obstructive hydrocephalus (8) COPD (chronic obstructive pulmonary disease) (9) Diabetes mellitus (10) Gram negative septicemia (11) Aphasia (12) Feeding by G-tube (13) Cellulitis of scrotum (14) History of CVA (cerebrovascular accident) (15) Suprapubic catheter dysfunction (16) Encephalopathy chronic (17) GILDARDO (acute kidney injury) (18) UTI (urinary tract infection) (19) Septic shock (20) History of DVT (deep vein thrombosis) (21) Suprapubic catheter (22) ATN (acute tubular necrosis) Russell Lopez Nov 12, 2018 10:39
--- NOTE | 2018-11-12 10:46 | NUR ---
NURSE NOTES: Asked Dr. Lebron if we should continue prior diet to which he said yes. No other post procedure orders given.
--- NOTE | 2018-11-12 11:42 | Cardiac Electrophysiology PN ---
Assessment/Plan Assessment/Plan 1. S/P Shock due to Sepsis and dehydration Lactic acidosis 2.4. On antibiotics Echo Nl EF. WBC down from 21K to 10 k MRSA and enterococcus bacteremia. TASNEEM today by Dr. Lebron no vegetations 2. Sinus tach 140s likely due to sepsis with fever. HR better 3. Inferior wall myocardial infarction based on electrocardiogram. Ruled out for myocardial infarction. EF 65% 4. Hypernatremia. 5. Renal failure and obstructive nephropathy. S/P R Nephrostomy tube placement on 11/08/18 6. CVA with paraplegia. 7. Status post suprapubic catheter. COLLETTE RN and Dr Lebron Subjective Subjective Nephrostomy tube draining. TASNEEM by Dr. Lebron showed no vegetations Objective Last 24 Hour Vital Signs Date Time Temp Pulse Resp B/P (MAP) Pulse Ox O2 Delivery O2 Flow Rate FiO2 11/12/18 09:00 Room Air 11/12/18 08:55 97.0 97 19 110/82 100 Nasal Cannula 3 11/12/18 08:43 88 20 123/97 99 Nasal Cannula 3 11/12/18 08:34 95 18 100 11/12/18 08:33 96 22 116/86 98 Nasal Cannula 3 11/12/18 08:32 97 18 100 11/12/18 08:29 99 20 112/82 95 Nasal Cannula 3 11/12/18 08:23 93 22 111/83 95 Nasal Cannula 3 11/12/18 08:18 91 20 120/86 99 Nasal Cannula 3 11/12/18 08:13 97.0 99 22 112/82 95 Nasal Cannula 3 11/12/18 04:00 98.4 106 19 117/79 (92) 95 11/12/18 04:00 108 11/12/18 00:00 123 11/12/18 00:00 98.4 113 20 124/76 (92) 96 11/11/18 21:00 Room Air 11/11/18 20:00 71 11/11/18 20:00 99.0 87 20 132/86 (101) 95 11/11/18 16:00 97.3 105 20 115/68 (84) 97 11/11/18 16:00 120 11/11/18 12:00 100 11/11/18 12:00 97.4 96 17 107/74 (85) 97 Intake and Output 11/11/18 11/12/18 19:00 07:00 Output Total 700 ml 600 ml Balance -700 ml -600 ml Output Urine Total 700 ml 600 ml Laboratory Tests Test 11/12/18 05:26 White Blood Count 10.0 K/UL (4.8-10.8) Red Blood Count 3.82 M/UL (4.70-6.10) L Hemoglobin 10.9 G/DL (14.2-18.0) L Hematocrit 33.5 % (42.0-52.0) L Mean Corpuscular Volume 88 FL (80-99) Mean Corpuscular Hemoglobin 28.5 PG (27.0-31.0) Mean Corpuscular Hemoglobin Concent 32.5 G/DL (32.0-36.0) Red Cell Distribution Width 15.4 % (11.6-14.8) H Platelet Count 393 K/UL (150-450) Mean Platelet Volume 5.9 FL (6.5-10.1) L Neutrophils (%) (Auto) 53.1 % (45.0-75.0) Lymphocytes (%) (Auto) 34.0 % (20.0-45.0) Monocytes (%) (Auto) 9.9 % (1.0-10.0) Eosinophils (%) (Auto) 0.8 % (0.0-3.0) Basophils (%) (Auto) 2.3 % (0.0-2.0) H Sodium Level 136 MMOL/L (136-145) Potassium Level 4.5 MMOL/L (3.5-5.1) Chloride Level 101 MMOL/L (98-107) Carbon Dioxide Level 28 MMOL/L (21-32) Anion Gap 8 mmol/L (5-15) Blood Urea Nitrogen 18 mg/dL (7-18) Creatinine 1.1 MG/DL (0.55-1.30) Estimat Glomerular Filtration Rate > 60 mL/min (>60) Glucose Level 102 MG/DL (74-106) Calcium Level 9.1 MG/DL (8.5-10.1) Objective HEAD AND NECK: No JVD. LUNGS: Coarse rhonchi. CARDIOVASCULAR: Tachy S1, S2 with no gallop. ABDOMEN: Soft, status post suprapubic catheter.Nephrostomy Right Flank EXTREMITIES: Paraplegic with edema Darnell Segundo MD Nov 12, 2018 11:42
--- NOTE | 2018-11-12 11:53 | Nephrology Progress Note ---
Assessment/Plan Problem List: (1) GILDARDO (acute kidney injury) (2) Septic shock (3) Suprapubic catheter (4) History of CVA (cerebrovascular accident) Assessment Acute renal failure- resolved Septic shock on presentation CVA Suprapubic cath / ? Neurogenic bladder HTN DVT UTI Plan K Phos IV stop Hydrate midodrine avoid nephrotoxics monitor renal parameters med surg? per orders Subjective Constitutional: Reports: malaise, weakness Objective Objective Last 24 Hour Vital Signs Date Time Temp Pulse Resp B/P (MAP) Pulse Ox O2 Delivery O2 Flow Rate FiO2 11/12/18 09:00 Room Air 11/12/18 08:55 97.0 97 19 110/82 100 Nasal Cannula 3 11/12/18 08:43 88 20 123/97 99 Nasal Cannula 3 11/12/18 08:34 95 18 100 11/12/18 08:33 96 22 116/86 98 Nasal Cannula 3 11/12/18 08:32 97 18 100 11/12/18 08:29 99 20 112/82 95 Nasal Cannula 3 11/12/18 08:23 93 22 111/83 95 Nasal Cannula 3 11/12/18 08:18 91 20 120/86 99 Nasal Cannula 3 11/12/18 08:13 97.0 99 22 112/82 95 Nasal Cannula 3 11/12/18 04:00 98.4 106 19 117/79 (92) 95 11/12/18 04:00 108 11/12/18 00:00 123 11/12/18 00:00 98.4 113 20 124/76 (92) 96 11/11/18 21:00 Room Air 11/11/18 20:00 71 11/11/18 20:00 99.0 87 20 132/86 (101) 95 11/11/18 16:00 97.3 105 20 115/68 (84) 97 11/11/18 16:00 120 11/11/18 12:00 100 11/11/18 12:00 97.4 96 17 107/74 (85) 97 Intake and Output 11/11/18 11/12/18 19:00 07:00 Output Total 700 ml 600 ml Balance -700 ml -600 ml Output Urine Total 700 ml 600 ml Laboratory Tests 11/12/18 05:26: White Blood Count 10.0, Red Blood Count 3.82L, Hemoglobin 10.9L, Hematocrit 33.5L, Mean Corpuscular Volume 88, Mean Corpuscular Hemoglobin 28.5, Mean Corpuscular Hemoglobin Concent 32.5, Red Cell Distribution Width 15.4H, Platelet Count 393, Mean Platelet Volume 5.9L, Neutrophils (%) (Auto) 53.1, Lymphocytes (%) (Auto) 34.0, Monocytes (%) (Auto) 9.9, Eosinophils (%) (Auto) 0.8, Basophils (%) (Auto) 2.3H, Sodium Level 136, Potassium Level 4.5, Chloride Level 101, Carbon Dioxide Level 28, Anion Gap 8, Blood Urea Nitrogen 18, Creatinine 1.1, Estimat Glomerular Filtration Rate > 60, Glucose Level 102, Calcium Level 9.1 Height (Feet): 5 Height (Inches): 7 Weight (Pounds): 235 General Appearance: no apparent distress Objective no change Pranav Grady MD Nov 12, 2018 11:53
[2018-11-12 12:06] LABS: ALANINE AMINOTRANSFERASE 14 U/L (12-78); ALBUMIN 2.3 G/DL (3.4-5.0); ALKALINE PHOSPHATASE 62 U/L (46-116); ASPARTATE AMINO TRANSFERASE 17 U/L (15-37); BILIRUBIN,DIRECT < 0.1 MG/DL (0.0-0.3); BILIRUBIN,TOTAL 0.2 MG/DL (0.2-1.0); PHOSPHORUS 3.4 MG/DL (2.5-4.9)
--- NOTE | 2018-11-12 12:57 | General Progress Note ---
Assessment/Plan Problem List: (1) Obstructive hydrocephalus ICD Codes: G91.1 - Obstructive hydrocephalus SNOMED: 776863736 (2) COPD (chronic obstructive pulmonary disease) ICD Codes: J44.9 - Chronic obstructive pulmonary disease, unspecified SNOMED: 69557016 (3) Diabetes mellitus ICD Codes: E11.9 - Type 2 diabetes mellitus without complications SNOMED: 07917121 (4) Feeding by G-tube ICD Codes: Z93.1 - Gastrostomy status SNOMED: 452750661, 115074047 (5) Sepsis ICD Codes: A41.9 - Sepsis, unspecified organism SNOMED: 48978727 (6) History of CVA (cerebrovascular accident) ICD Codes: Z86.73 - Personal history of transient ischemic attack (TIA), and cerebral infarction without residual deficits SNOMED: 582406255 (7) Encephalopathy chronic ICD Codes: G93.49 - Other encephalopathy SNOMED: 14496921 (8) UTI (urinary tract infection) ICD Codes: N39.0 - Urinary tract infection, site not specified SNOMED: 34723474 Qualifiers: Qualified Codes: N30.00 - Acute cystitis without hematuria (9) Septic shock ICD Codes: A41.9 - Sepsis, unspecified organism; R65.21 - Severe sepsis with septic shock SNOMED: 54743203 (10) ATN (acute tubular necrosis) ICD Codes: N17.0 - Acute kidney failure with tubular necrosis SNOMED: 64857169 Status: stable, progressing Assessment/Plan: o2 pulm tx abx bp control cbc bmp am aru eval Subjective Constitutional: Reports: weakness Allergies: Coded Allergies: VANCOMYCIN (Verified Allergy, Mild, Redness , 10/29/18) CIPROFLOXACIN (Verified Allergy, Unknown, 08/23/15) All Systems: reviewed and negative except above Subjective sleepy calm Objective Last 24 Hour Vital Signs Date Time Temp Pulse Resp B/P (MAP) Pulse Ox O2 Delivery O2 Flow Rate FiO2 11/12/18 12:00 97.2 88 18 114/78 (90) 97 11/12/18 12:00 105 11/12/18 09:00 Room Air 11/12/18 08:55 97.0 97 19 110/82 100 Nasal Cannula 3 11/12/18 08:43 88 20 123/97 99 Nasal Cannula 3 11/12/18 08:34 95 18 100 11/12/18 08:33 96 22 116/86 98 Nasal Cannula 3 11/12/18 08:32 97 18 100 11/12/18 08:29 99 20 112/82 95 Nasal Cannula 3 11/12/18 08:23 93 22 111/83 95 Nasal Cannula 3 11/12/18 08:18 91 20 120/86 99 Nasal Cannula 3 11/12/18 08:13 97.0 99 22 112/82 95 Nasal Cannula 3 11/12/18 08:00 108 11/12/18 04:00 98.4 106 19 117/79 (92) 95 11/12/18 04:00 108 11/12/18 00:00 123 11/12/18 00:00 98.4 113 20 124/76 (92) 96 11/11/18 21:00 Room Air 11/11/18 20:00 71 11/11/18 20:00 99.0 87 20 132/86 (101) 95 11/11/18 16:00 97.3 105 20 115/68 (84) 97 11/11/18 16:00 120 Intake and Output 11/11/18 11/12/18 18:59 06:59 Output Total 700 ml 600 ml Balance -700 ml -600 ml Output Urine Total 700 ml 600 ml Laboratory Tests 11/12/18 05:26: White Blood Count 10.0, Red Blood Count 3.82L, Hemoglobin 10.9L, Hematocrit 33.5L, Mean Corpuscular Volume 88, Mean Corpuscular Hemoglobin 28.5, Mean Corpuscular Hemoglobin Concent 32.5, Red Cell Distribution Width 15.4H, Platelet Count 393, Mean Platelet Volume 5.9L, Neutrophils (%) (Auto) 53.1, Lymphocytes (%) (Auto) 34.0, Monocytes (%) (Auto) 9.9, Eosinophils (%) (Auto) 0.8, Basophils (%) (Auto) 2.3H, Sodium Level 136, Potassium Level 4.5, Chloride Level 101, Carbon Dioxide Level 28, Anion Gap 8, Blood Urea Nitrogen 18, Creatinine 1.1, Estimat Glomerular Filtration Rate > 60, Glucose Level 102, Uric Acid 3.4, Calcium Level 9.1, Phosphorus Level 3.4, Magnesium Level 2.1, Total Bilirubin 0.2, Direct Bilirubin < 0.1, Aspartate Amino Transf (AST/SGOT) 17, Alanine Aminotransferase (ALT/SGPT) 14, Alkaline Phosphatase 62, Total Protein 9.5H, Albumin 2.3L Height (Feet): 5 Height (Inches): 7 Weight (Pounds): 235 General Appearance: lethargic EENT: normal ENT inspection Neck: normal alignment Cardiovascular: normal peripheral pulses, normal rate, regular rhythm Respiratory/Chest: chest wall non-tender, lungs clear, normal breath sounds Abdomen: normal bowel sounds, non tender, soft Extremities: normal inspection Edema: no edema noted Arm (L), no edema noted Arm (R), no edema noted Leg (L), no edema noted Leg (R), no edema noted Pedal (L), no edema noted Pedal (R), no edema noted Generalized Neurologic: motor weakness Skin: normal pigmentation, warm/dry Jaylen Bear DO Nov 12, 2018 12:57
--- NOTE | 2018-11-12 14:23 | Infectious Diseases Prog Note ---
Assessment/Plan Assessment/Plan Assessment: Septic shock- SP -probable pNA -MRSA/ P Mirabilis, E. fecalis bacteremia- m/l source UTI from obstructive stone -11/12 TASNEEM: no vegetations -11/08 SP R nephrostomy --findings: small amount slightly purulent urine sent for C and S. Intraprocedural images demonstrate dilated right renal collecting system. Multiple filling defects are compatible with a calculi demonstrated on recent CT scan --cx E. fecalis (S Vancomycin, Amp) -small bowel series: No significant small bowel obstruction demonstrated; contrast transitethe entire GI tract in 3 hours -11/03 CT abd/p: 1. Dilated fluid and gas-filled small bowel loops with transition point in the right lower quadrant where there is swirling of mesenteric vessels and small bowel, concerning for volvulus causing obstruction. Wall thickening of the rectum may be secondary to fecal material versus proctitis. Obstructing stone measuring 1.2 cm in the proximal right ureter. Moderate to severe right hydronephrosis. Additional stones in the right kidney and right renal pelvis, measuring up to approximately 1.8 cm and the right renal pelvis. Small amount of free fluid in the pelvis. No abscess identified. -10/30 CXR: Right perihilar disease possibly atelectasis or pneumonia. No change -repeat u/a wbc tnct, nit +, leuk +3 -u/a wbc 19-15, nit +, leuk +2; ucx >100k P. mirabilis (Previously reporte as onlyS Genta, Ertapenem, Zosyn; now hs been updated to R Nitrofurantoin and otherwise S) -CXR: Low lung volumes with right perihilar atelectatic changes. No definite acute process -10/29 Bcx 4/ P. mirabilis (neri S), MRSA; repeat Bcx Neg; 10/30 BCxx 2/ P Mirabilis , 1/ E. fecalis (S Vanc, AMP); 11/01 Bcx / P. mirabilis, E. fecalis ; 11/05 BCx Neg -sp cx PsA (neri S), MRSA -2d Echo: no vegeatiosn Fever; SP Leukocytosis; SP GILDARDO, SP hx of UTI -07/2018 ucx E. fecalis (neri S), P. mirabilis -03/2019 ucx PsA TCP , SP CVA/TIA Dm2 CKD suprapubic catheter DVT hypertensive heart disease [facility] [place] Plan: cont Zyvox #12 and Cefepime #11 ( monitor PLT ) for MRSA, enterococcus and Proteus bacteremia, respectively; continue until November 19/2019 (2 weeks from 1st neg BCx) --monitor platelets -11/02 SP Meropenem #4 -11/01 Sp Amikacin #4 , IV Vancomycin #3 -10/29 SP Ertapenem #1, IV Vancomycin x1 -f/u cx -Monitor CBC/CMP, temperatures -aspiration precautions -Uro, Cards, Sx f/u Subjective Allergies: Coded Allergies: VANCOMYCIN (Verified Allergy, Mild, Redness , 10/29/18) CIPROFLOXACIN (Verified Allergy, Unknown, 08/23/15) Subjective afebrile repeat Bcx Neg mild leukocytosis resolved s/p TASNEEM today, no vegetations Objective Vital Signs Last 24 Hour Vital Signs Date Time Temp Pulse Resp B/P (MAP) Pulse Ox O2 Delivery O2 Flow Rate FiO2 11/12/18 12:00 97.2 88 18 114/78 (90) 97 11/12/18 12:00 105 11/12/18 09:00 Room Air 11/12/18 08:55 97.0 97 19 110/82 100 Nasal Cannula 3 11/12/18 08:43 88 20 123/97 99 Nasal Cannula 3 11/12/18 08:34 95 18 100 11/12/18 08:33 96 22 116/86 98 Nasal Cannula 3 11/12/18 08:32 97 18 100 11/12/18 08:29 99 20 112/82 95 Nasal Cannula 3 11/12/18 08:23 93 22 111/83 95 Nasal Cannula 3 11/12/18 08:18 91 20 120/86 99 Nasal Cannula 3 11/12/18 08:13 97.0 99 22 112/82 95 Nasal Cannula 3 11/12/18 08:00 108 11/12/18 04:00 98.4 106 19 117/79 (92) 95 11/12/18 04:00 108 11/12/18 00:00 123 11/12/18 00:00 98.4 113 20 124/76 (92) 96 11/11/18 21:00 Room Air 11/11/18 20:00 71 11/11/18 20:00 99.0 87 20 132/86 (101) 95 11/11/18 16:00 97.3 105 20 115/68 (84) 97 11/11/18 16:00 120 Height (Feet): 5 Height (Inches): 7 Weight (Pounds): 235 Objective General Appearance: WD/WN, no apparent distress Lines, tubes and drains: peripheral, central line, gtube HEENT: normocephalic, atraumatic, anicteric Neck: non-tender, normal alignment Respiratory/Chest: chest wall non-tender, lungs clear Cardiovascular/Chest: normal peripheral pulses, normal rate Abdomen: normal bowel sounds Extremities: normal range of motion Laboratory Tests Test 11/12/18 05:26 White Blood Count 10.0 K/UL (4.8-10.8) Red Blood Count 3.82 M/UL (4.70-6.10) L Hemoglobin 10.9 G/DL (14.2-18.0) L Hematocrit 33.5 % (42.0-52.0) L Mean Corpuscular Volume 88 FL (80-99) Mean Corpuscular Hemoglobin 28.5 PG (27.0-31.0) Mean Corpuscular Hemoglobin Concent 32.5 G/DL (32.0-36.0) Red Cell Distribution Width 15.4 % (11.6-14.8) H Platelet Count 393 K/UL (150-450) Mean Platelet Volume 5.9 FL (6.5-10.1) L Neutrophils (%) (Auto) 53.1 % (45.0-75.0) Lymphocytes (%) (Auto) 34.0 % (20.0-45.0) Monocytes (%) (Auto) 9.9 % (1.0-10.0) Eosinophils (%) (Auto) 0.8 % (0.0-3.0) Basophils (%) (Auto) 2.3 % (0.0-2.0) H Sodium Level 136 MMOL/L (136-145) Potassium Level 4.5 MMOL/L (3.5-5.1) Chloride Level 101 MMOL/L (98-107) Carbon Dioxide Level 28 MMOL/L (21-32) Anion Gap 8 mmol/L (5-15) Blood Urea Nitrogen 18 mg/dL (7-18) Creatinine 1.1 MG/DL (0.55-1.30) Estimat Glomerular Filtration Rate > 60 mL/min (>60) Glucose Level 102 MG/DL (74-106) Uric Acid 3.4 MG/DL (2.6-7.2) Calcium Level 9.1 MG/DL (8.5-10.1) Phosphorus Level 3.4 MG/DL (2.5-4.9) Magnesium Level 2.1 MG/DL (1.8-2.4) Total Bilirubin 0.2 MG/DL (0.2-1.0) Direct Bilirubin < 0.1 MG/DL (0.0-0.3) Aspartate Amino Transf (AST/SGOT) 17 U/L (15-37) Alanine Aminotransferase (ALT/SGPT) 14 U/L (12-78) Alkaline Phosphatase 62 U/L (46-116) Total Protein 9.5 G/DL (6.4-8.2) H Albumin 2.3 G/DL (3.4-5.0) L Current Medications Medications (Trade) Dose Ordered Sig/Fab Route PRN Reason Start Time Stop Time Status Last Admin Dose Admin Acetaminophen (Tylenol) 650 mg Q4H PRN GT fever (temp>100.5 F) 11/10/18 02:30 11/28/18 17:29 Cefepime HCl 2 gm/ Dextrose 55 ml @ 110 mls/hr EVERY 8 HOURS IVPB 11/10/18 06:00 11/18/18 23:59 11/12/18 05:40 Diphenhydramine HCl (Benadryl) 25 mg Q6H PRN IVP Itching 11/10/18 05:30 11/28/18 17:29 Docusate Sodium (Colace) 100 mg THREE TIMES A DAY GT 11/10/18 09:00 12/01/18 17:59 11/12/18 12:27 Famotidine (Pepcid) 20 mg Q12HR GT 11/10/18 09:00 11/29/18 20:59 11/11/18 21:34 Heparin Sodium (Porcine) (Heparin 5000 units/ml) 5,000 units EVERY 12 HOURS SUBQ 11/10/18 09:00 11/28/18 08:59 11/10/18 09:10 Linezolid (Zyvox) 600 mg EVERY 12 HOURS GT 11/11/18 15:00 11/16/18 23:00 11/12/18 10:03 Metoclopramide HCl (Reglan) 5 mg EVERY 6 HOURS NG 11/10/18 06:00 12/09/18 11:59 11/12/18 12:26 Ondansetron HCl (Zofran) 4 mg Q6H PRN IVP Nausea & Vomiting 11/10/18 05:30 11/28/18 17:29 Polyethylene Glycol (Miralax) 17 gm DAILYPRN PRN GT Constipation 11/10/18 10:30 11/30/18 17:29 Dorothea Macario M.D. Nov 12, 2018 14:23
[2018-11-12] MEDS: Docusate 100mg tablet GT SCH (17:34)
--- NOTE | 2018-11-12 18:30 | Procedure Note ---
DATE OF PROCEDURE: 11/12/2018 TRANSESOPHAGEAL ECHOCARDIOGRAM REPORT SURGEON: Bari Lebron M.D. REFERRING PHYSICIAN: Darnell Segundo M.D. PROCEDURE PERFORMED: 1. Transesophageal echocardiogram. 2. Pulsed-wave, continuous-wave, color-flow Doppler imaging. INDICATIONS: Bacteremia, to rule out cardiac source of infection for endocarditis. CONSENT: As the patient himself was unable to consent, the patient's sister was contacted specifically. Risks, possible complications of transesophageal electrocardiogram was fully discussed with the patient's sister, who gave informed consent prior to the procedure. The anesthesiologist separately obtained consent. DESCRIPTION OF PROCEDURE: After obtaining informed consent from the patient's sister, next of kin, and the patient was brought to the GI lab where he was connected to sphygmomanometry, pulse oximetry, and telemetry. After a time-out was done, appropriate steps to assure the patient's were given. The patient received anesthesia after discussion with the anesthesiologist. Once sedated, a multiplane transesophageal probe was advanced into the oropharynx through a bite guard that was previously placed. Multiple views of cardiac structure were taken and eventually the probe was withdrawn. The patient remains hemodynamically stable throughout the sedation and was continuously monitored. No adverse effects were noted during this procedure. FINDINGS: 1. Aortic valve appears to be normal. No evidence of endocarditis. 2. Mitral valve appears to be normal. No evidence of endocarditis. 3. Tricuspid valve to the extent visualized, did not show any evidence of endocarditis and the pulmonic valve was not completely visualized. No large vegetations were noted in that area. The aorta appeared to be free of any significant atheroma of the proximal thoracic aorta as well as the proximal descending thoracic aorta up to the level of the arch. There was no evidence of left atrial appendage thrombus and color-Doppler showed no significant tricuspid, aortic, or mitral regurgitation. FINAL DIAGNOSIS: No evidence of vegetation of the mitral, aortic to the extent visualized and the tricuspid or pulmonic valves. Bari Lebron M.D. DR: DAVON JOB#: [id number] CC:
--- NOTE | 2018-11-12 18:30 | Consultation ---
DATE OF CONSULTATION: 11/12/2018 CARDIOLOGY CONSULTATION CONSULTING PHYSICIAN: Bari Lebron M.D. REFERRING PHYSICIAN: 1. Jaylen Bear D.O. 2. Darnell Segundo M.D. REASON FOR REFERRAL: Transesophageal echocardiogram. HISTORY OF PRESENT ILLNESS: This is a 58-year-old gentleman who is not able to provide any meaningful history whatsoever. The patient has history of multiple medical problems given below has been admitted to the hospital because of hypotension and was noted to have eventually bacteremia with Proteus as well as Staph and the concern about possibility of endocarditis has been raised. This consultation requested for the transesophageal echocardiography. The patient is not able to provide adequate amount of information. He has been kept NPO in anticipation of this procedure. His feedings have been on hold. He is G-tube dependent. PAST MEDICAL HISTORY: Positive for history of COPD, history of cerebrovascular accident, suprapubic catheter placement and dysfunction, deep venous thrombosis on prior occasion, history of obstructive hydrocephalus, again as mentioned G-tube dependent. ALLERGIES: He is allergic to ciprofloxacin and vancomycin. SOCIAL HISTORY: Really unknown, the patient is a resident of convalescent facility. REVIEW OF SYSTEMS: Unable to obtain. PHYSICAL EXAMINATION: GENERAL: Shows to be middle-aged gentleman, awake but not really communicative, overweight. NECK: Supple, short. LUNGS: Appear to be clear to auscultation anteriorly. CARDIAC: Regular rate and rhythm. Borderline tachycardia. ABDOMEN: Soft. G-tube is present. EXTREMITIES: Chronic venous stasis. NEUROLOGICAL: Awake and responsive. LABORATORY AND DIAGNOSTIC DATA: White count of 10, hemoglobin 10.9, platelet count 293. Sodium is 132, potassium 4.5, chloride 101, bicarb 28, BUN of 18, creatinine 1.1, glucose of 102, calcium level is 9.1. His coags, INR was 1.1 and 31 three days ago. Urinalysis shows 30 to 40 rbc's and too numerous count wbc's. Stool for occult blood was negative recently. His x-ray of his abdomen was performed yesterday that showed presumed stable ileus. He did have a CT scan of his abdomen and pelvis that was performed and reported. Chest x-ray shows low lung volumes, prominent bronchovascular markings in the right perihilar region unchanged, no new infiltrates or effusions, heart size upper limits of normal, findings are unchanged. Microbiology shows blood cultures are positive for Proteus mirabilis 10/30/2018 and again on 11/01/2018 but on 11/05/2018 that were negative, did have some Staphylococcus aureus, MRSA was also in the sputum as well. His EKG shows sinus tachycardia. ASSESSMENT AND PLAN: 1. Bacteremia. 2. Chronic suprapubic catheterization. 3. History of CVA hydrocephalus. 4. Morbid obesity. 5. Obstructive uropathy. This patient was seen in cardiac consultation. The patient seems to be a reasonable candidate to undergo transesophageal echocardiogram. I discussed with the patient's sister over the telephone the possible risks and complications of the transesophageal echocardiography including fluctuation in heart rate, blood pressure, aspiration, very rare risk of . All questions answered to the patient's sister, who had given informed consent to the staff yesterday. She gave informed consent to be personally today for the actual procedure. Anesthesiologist discussed the case with the family members in relation as to side effects of anesthesia as well. Echocardiogram was recently performed showing normal left ventricular systolic function with ejection fraction of 60% to 65%, no significant valvular regurgitation was noted on the echocardiogram. The patient's vital signs appeared to be stable. Preprocedure blood pressure between 117/79 to 174/76, heart rate between 108 to 113, temperature 98.4, saturation 95% to 96% on room air is documented. Transesophageal would be attempted under moderate sedation provided by anesthesiologist. Bari Lebron M.D. DR: Zahra JOB#: [id number] CC:
--- NOTE | 2018-11-12 19:05 | NUR ---
NURSE NOTES: Received pt and report from CANDI Solis. Observed pt resting in bed with both eyes open. Pt is A/Ox1. customer acquisition manager is in placed, IV site intact, asymptomatic, and patent. Pt has a suprapubic catheter and nephrostomy tube on the right side; both patent and draining well. Pt is on G-tube feeding of Glucerna 1.5 @ 55cc/hr. Bed is in the lowest position and locked. Call light within reach. No signs and symptoms of acute distress noted at this time. Will continue plan of care.
--- NOTE | 2018-11-12 19:16 | NUR ---
HAND-OFF: Report given to CANDI Smith. Pt is in stable condition; plan of care endorsed.
[2018-11-13] VITALS: BP 140/86
[2018-11-13 04:00] VITALS: BP 120/81
--- NOTE | 2018-11-13 05:15 | NUR ---
NURSE NOTES: Pt refused morning labs. Calender Feeder will attempt again after breakfast.
[2018-11-13] MEDS: Metoclopramide 10mg/10ml Liq NG SCH ×3 (05:47→18:16)
[2018-11-13] MEDS: Cefepime HCl 2 GM in D5W 55 ML IVPB SCH ×2 (05:47→13:07)
--- NOTE | 2018-11-13 07:33 | NUR ---
NURSE NOTES: Received report from CANDI Smith. Patient in bed resting, no active s/s cardiac, respiratory distress noticed at this time. Patient AOx1, open eyes spontaneously, ST with HR 120, IV on right FA 22G, asymptomatic, patent, intact. Suprapubic Catheter draining well to gravity, nephrostomy on right side draining well to gravity, patent, intact. Patient on G-tube feeding, running as prescribed rate, no residual at this time. Bed in lowest position, side rails padded up x3, call light within reach, bed alarm on. Will continue to monitor.
--- NOTE | 2018-11-13 07:40 | NUR ---
HAND-OFF: Report given to CANDI Chávez.
[2018-11-13 08:00] VITALS: BP 118/61
[2018-11-13 08:44] LABS: BASOPHILS % (AUTO) 1.5 % (0.0-2.0); EOSINOPHILS % (AUTO) 0.7 % (0.0-3.0); HEMATOCRIT 36.3 % (42.0-52.0); HEMOGLOBIN 11.6 G/DL (14.2-18.0); MEAN CORPUSCULAR VOLUME 88 FL (80-99); MONOCYTES % (AUTO) 11.1 % (1.0-10.0); NEUTROPHILS % (AUTO) 53.7 % (45.0-75.0); PLATELET COUNT 425 K/UL (150-450); RED BLOOD COUNT 4.15 M/UL (4.70-6.10); RED CELL DISTRIBUTION WIDTH 14.9 % (11.6-14.8); WHITE BLOOD COUNT 10.7 K/UL (4.8-10.8)
[2018-11-13] MEDS: Docusate 100mg tablet GT SCH ×3 (08:52→18:17)
[2018-11-13] MEDS: Heparin 5000 units/ml inj SUBQ SCH (08:54)
[2018-11-13 08:56] LABS: ANION GAP 7 mmol/L (5-15); BLOOD UREA NITROGEN 23 mg/dL (7-18); CALCIUM 9.8 MG/DL (8.5-10.1); CARBON DIOXIDE 28 MMOL/L (21-32); CHLORIDE 101 MMOL/L (98-107); CREATININE 1.2 MG/DL (0.55-1.30); PHOSPHORUS 3.6 MG/DL (2.5-4.9); POTASSIUM 4.6 MMOL/L (3.5-5.1); SODIUM 135 MMOL/L (136-145)
--- NOTE | 2018-11-13 10:14 | GI Progress Note ---
Assessment/Plan Problems: (1) Aphasia ICD Codes: R47.01 - Aphasia SNOMED: 78063256 (2) Anemia ICD Codes: D64.9 - Anemia, unspecified SNOMED: 819932772 (3) Fecal impaction ICD Codes: K56.41 - Fecal impaction SNOMED: 06364356 (4) Proctitis ICD Codes: K62.89 - Other specified diseases of anus and rectum SNOMED: 3427708 (5) Volvulus ICD Codes: K56.2 - Volvulus SNOMED: 1105734 Status: stable, unchanged Status Narrative Discussed with Dr. Faust. Assessment/Plan SBFT negative OB stool negative Anemia work-up reviewed Prevacid Monitor H&H, PRN transfusions Bowel regimen turn q2 hours Follow-up labs on low dose reglan GTF as tolerated to goal rate s/p nephrostomy tube placement outpatient GI procedures The patient was seen and examined at bedside and all new and available data was reviewed in the patients chart. I agree with the above findings, impression and plan. (Patient seen earlier today. Signature stamp does not reflect patient encounter time.). - Deep Faust MD Subjective Subjective limited Objective Last 24 Hour Vital Signs Date Time Temp Pulse Resp B/P (MAP) Pulse Ox O2 Delivery O2 Flow Rate FiO2 11/13/18 09:00 Room Air 11/13/18 08:00 88 11/13/18 08:00 99.0 119 20 118/61 (80) 95 11/13/18 04:00 98.4 126 20 120/81 (94) 97 11/13/18 04:00 126 11/13/18 00:00 98.6 78 18 140/86 (104) 97 11/13/18 00:00 130 11/12/18 21:00 Room Air 11/12/18 20:00 118 11/12/18 20:00 98.6 118 19 110/77 (88) 95 11/12/18 16:00 98.8 86 20 120/78 (92) 92 11/12/18 16:00 123 11/12/18 12:00 97.2 88 18 114/78 (90) 97 11/12/18 12:00 105 Intake and Output 11/12/18 11/13/18 19:00 07:00 Intake Total 840 ml 255 ml Output Total 650 ml 1050 ml Balance 190 ml -795 ml Intake Free Water 200 ml 200 ml IV Total 325 ml Tube Feeding 315 ml 55 ml Output Urine Total 350 ml 1000 ml Other 300 ml 50 ml # Bowel Movements 1 Laboratory Tests Test 11/13/18 07:30 White Blood Count 10.7 K/UL (4.8-10.8) Red Blood Count 4.15 M/UL (4.70-6.10) L Hemoglobin 11.6 G/DL (14.2-18.0) L Hematocrit 36.3 % (42.0-52.0) L Mean Corpuscular Volume 88 FL (80-99) Mean Corpuscular Hemoglobin 28.0 PG (27.0-31.0) Mean Corpuscular Hemoglobin Concent 32.0 G/DL (32.0-36.0) Red Cell Distribution Width 14.9 % (11.6-14.8) H Platelet Count 425 K/UL (150-450) Mean Platelet Volume 6.2 FL (6.5-10.1) L Neutrophils (%) (Auto) 53.7 % (45.0-75.0) Lymphocytes (%) (Auto) 33.0 % (20.0-45.0) Monocytes (%) (Auto) 11.1 % (1.0-10.0) H Eosinophils (%) (Auto) 0.7 % (0.0-3.0) Basophils (%) (Auto) 1.5 % (0.0-2.0) Sodium Level 135 MMOL/L (136-145) L Potassium Level 4.6 MMOL/L (3.5-5.1) Chloride Level 101 MMOL/L (98-107) Carbon Dioxide Level 28 MMOL/L (21-32) Anion Gap 7 mmol/L (5-15) Blood Urea Nitrogen 23 mg/dL (7-18) H Creatinine 1.2 MG/DL (0.55-1.30) Estimat Glomerular Filtration Rate > 60 mL/min (>60) Glucose Level 114 MG/DL (74-106) H Calcium Level 9.8 MG/DL (8.5-10.1) Phosphorus Level 3.6 MG/DL (2.5-4.9) Magnesium Level 2.1 MG/DL (1.8-2.4) Height (Feet): 5 Height (Inches): 7 Weight (Pounds): 232 General Appearance: WD/WN, no apparent distress, alert Cardiovascular: normal rate Respiratory/Chest: normal breath sounds, no respiratory distress Abdominal Exam: normal bowel sounds, non tender, soft, GT site - c/d/i Extremities: non-tender Nevaeh Ocampo NP Nov 13, 2018 10:14
--- NOTE | 2018-11-13 11:18 | Cardiac Electrophysiology PN ---
Assessment/Plan Assessment/Plan 1. S/P Shock due to Sepsis and dehydration Lactic acidosis 2.4. On antibiotics per Dr Macario Echo Nl EF. WBC down from 21K to 10 k MRSA and enterococcus bacteremia. TASNEEM by Dr. Lebron no vegetations 2. Sinus tach 140s likely due to sepsis with fever. HR better 3. Inferior wall myocardial infarction based on electrocardiogram. Ruled out for [facility] and EF 65% 4. Hypernatremia. 5. Renal failure and obstructive nephropathy. S/P R Nephrostomy tube placement on 11/08/18 6. CVA with paraplegia. 7. Status post suprapubic catheter. DW RN Subjective Subjective Nephrostomy tube draining. TASNEEM showed no vegetations. GT feeding ongoing Objective Last 24 Hour Vital Signs Date Time Temp Pulse Resp B/P (MAP) Pulse Ox O2 Delivery O2 Flow Rate FiO2 11/13/18 09:00 Room Air 11/13/18 08:00 88 11/13/18 08:00 99.0 119 20 118/61 (80) 95 11/13/18 04:00 98.4 126 20 120/81 (94) 97 11/13/18 04:00 126 11/13/18 00:00 98.6 78 18 140/86 (104) 97 11/13/18 00:00 130 11/12/18 21:00 Room Air 11/12/18 20:00 118 11/12/18 20:00 98.6 118 19 110/77 (88) 95 11/12/18 16:00 98.8 86 20 120/78 (92) 92 11/12/18 16:00 123 11/12/18 12:00 97.2 88 18 114/78 (90) 97 11/12/18 12:00 105 Intake and Output 11/12/18 11/13/18 19:00 07:00 Intake Total 840 ml 255 ml Output Total 650 ml 1050 ml Balance 190 ml -795 ml Intake Free Water 200 ml 200 ml IV Total 325 ml Tube Feeding 315 ml 55 ml Output Urine Total 350 ml 1000 ml Other 300 ml 50 ml # Bowel Movements 1 Laboratory Tests Test 11/13/18 07:30 White Blood Count 10.7 K/UL (4.8-10.8) Red Blood Count 4.15 M/UL (4.70-6.10) L Hemoglobin 11.6 G/DL (14.2-18.0) L Hematocrit 36.3 % (42.0-52.0) L Mean Corpuscular Volume 88 FL (80-99) Mean Corpuscular Hemoglobin 28.0 PG (27.0-31.0) Mean Corpuscular Hemoglobin Concent 32.0 G/DL (32.0-36.0) Red Cell Distribution Width 14.9 % (11.6-14.8) H Platelet Count 425 K/UL (150-450) Mean Platelet Volume 6.2 FL (6.5-10.1) L Neutrophils (%) (Auto) 53.7 % (45.0-75.0) Lymphocytes (%) (Auto) 33.0 % (20.0-45.0) Monocytes (%) (Auto) 11.1 % (1.0-10.0) H Eosinophils (%) (Auto) 0.7 % (0.0-3.0) Basophils (%) (Auto) 1.5 % (0.0-2.0) Sodium Level 135 MMOL/L (136-145) L Potassium Level 4.6 MMOL/L (3.5-5.1) Chloride Level 101 MMOL/L (98-107) Carbon Dioxide Level 28 MMOL/L (21-32) Anion Gap 7 mmol/L (5-15) Blood Urea Nitrogen 23 mg/dL (7-18) H Creatinine 1.2 MG/DL (0.55-1.30) Estimat Glomerular Filtration Rate > 60 mL/min (>60) Glucose Level 114 MG/DL (74-106) H Calcium Level 9.8 MG/DL (8.5-10.1) Phosphorus Level 3.6 MG/DL (2.5-4.9) Magnesium Level 2.1 MG/DL (1.8-2.4) Objective HEAD AND NECK: No JVD. LUNGS: Coarse rhonchi. CARDIOVASCULAR: Tachy S1, S2 with no gallop. ABDOMEN: Soft, status post suprapubic catheter.Nephrostomy Right Flank draining EXTREMITIES: Paraplegic with edema Darnell Segundo MD Nov 13, 2018 11:18
--- NOTE | 2018-11-13 11:30 | NUR ---
NURSE NOTES:WOUND CARE FOLLOW-UP NOTES: Open blister in close proximity to GT site secondary to adhesive denudement. Base of wound is moist and viable. No exudate noted. Wound cleansed with Saline. Silvasorb gel applied and covered with Optifoam drsg . Open blister In close proximity to suprapubic cath resolving .Base of wound moist -viable with paink epithelial borders. Cleansed with Saline. Silvasorb gel applied and covered with Optifoam drsg. Moisture Intertrigo L breast fold and abd folds resolving .Less erythema noted. Intertrigo bilat groin folds resolved. Hyperpigmentation sacral areal area without erythema or evidence of any skin breakdown. Moisture Barrier paste applied and sacral area protected with Optifoam drsg. All wound prevention protocols continued as care planned.
--- NOTE | 2018-11-13 11:56 | Surgery Progress Note ---
Surgery Progress Note Subjective Symptoms: improved, tolerating diet, voiding well, passing flatus, BM, pain decreased Objective Last 24 Hour Vital Signs Date Time Temp Pulse Resp B/P (MAP) Pulse Ox O2 Delivery O2 Flow Rate FiO2 11/13/18 09:00 Room Air 11/13/18 08:00 88 11/13/18 08:00 99.0 119 20 118/61 (80) 95 11/13/18 04:00 98.4 126 20 120/81 (94) 97 11/13/18 04:00 126 11/13/18 00:00 98.6 78 18 140/86 (104) 97 11/13/18 00:00 130 11/12/18 21:00 Room Air 11/12/18 20:00 118 11/12/18 20:00 98.6 118 19 110/77 (88) 95 11/12/18 16:00 98.8 86 20 120/78 (92) 92 11/12/18 16:00 123 11/12/18 12:00 97.2 88 18 114/78 (90) 97 11/12/18 12:00 105 I&O Intake and Output 11/12/18 11/13/18 19:00 07:00 Intake Total 840 ml 255 ml Output Total 650 ml 1050 ml Balance 190 ml -795 ml Intake Free Water 200 ml 200 ml IV Total 325 ml Tube Feeding 315 ml 55 ml Output Urine Total 350 ml 1000 ml Other 300 ml 50 ml # Bowel Movements 1 Cardiovascular: RSR Respiratory: clear Abdomen: soft, non-tender, present bowel sounds, non-distended Extremities: no tenderness, no cyanosis Laboratory Tests Test 11/13/18 07:30 White Blood Count 10.7 K/UL (4.8-10.8) Red Blood Count 4.15 M/UL (4.70-6.10) L Hemoglobin 11.6 G/DL (14.2-18.0) L Hematocrit 36.3 % (42.0-52.0) L Mean Corpuscular Volume 88 FL (80-99) Mean Corpuscular Hemoglobin 28.0 PG (27.0-31.0) Mean Corpuscular Hemoglobin Concent 32.0 G/DL (32.0-36.0) Red Cell Distribution Width 14.9 % (11.6-14.8) H Platelet Count 425 K/UL (150-450) Mean Platelet Volume 6.2 FL (6.5-10.1) L Neutrophils (%) (Auto) 53.7 % (45.0-75.0) Lymphocytes (%) (Auto) 33.0 % (20.0-45.0) Monocytes (%) (Auto) 11.1 % (1.0-10.0) H Eosinophils (%) (Auto) 0.7 % (0.0-3.0) Basophils (%) (Auto) 1.5 % (0.0-2.0) Sodium Level 135 MMOL/L (136-145) L Potassium Level 4.6 MMOL/L (3.5-5.1) Chloride Level 101 MMOL/L (98-107) Carbon Dioxide Level 28 MMOL/L (21-32) Anion Gap 7 mmol/L (5-15) Blood Urea Nitrogen 23 mg/dL (7-18) H Creatinine 1.2 MG/DL (0.55-1.30) Estimat Glomerular Filtration Rate > 60 mL/min (>60) Glucose Level 114 MG/DL (74-106) H Calcium Level 9.8 MG/DL (8.5-10.1) Phosphorus Level 3.6 MG/DL (2.5-4.9) Magnesium Level 2.1 MG/DL (1.8-2.4) Plan Problems: (1) Volvulus Assessment & Plan: This is a 58-year-old male currently admitted for work-up of sepsis who was identified to have a leukocytosis, tachycardia, bacteremia. Patient is currently on IV antibiotics and slowly improving. On recent CT scan he was identified to have a potential volvulus. On examination clinically patient does not seem to have volvulus or bowel obstruction. His abdomen is soft nondistended nontender and with positive bowel sounds. He is tolerating tube feeds through his G-tube and having bowel movements and passing flatus. Swirling of the mesentery noted on CT scan concerning and will follow with serial exams and recommendations. For now okay to continue with tube feeds. Thank you for this consultation Small bowel series noted. No obstruction noted. okay for diet will monitor KUB noted. Still with ileus. Continues to have bowel movements and tolerate diet. Continue with current care plan cont feeds DAILY ESTIMATED NEEDS: Needs based on Sepsis/ 77kg abw 25-30 kcals/kg 9104-1296 total kcals 1-2 g protein/kg 77-154 g total protein 25-30 mL/kg 1527-7841 total fluid mLs NUTRITION DIAGNOSIS: 1) Swallowing difficulty related to dysphagia s/p cva as evidenced by pt dependent on PEG for all nutrition and hydration needs. CURRENT TF:Glucerna 1.5 @ 55ml/hr x 24 hrs -> HELD ENTERAL NUTRITION RECOMMENDATIONS: Glucerna 1.5 @ 55ml/hr x 24 hrs to provide 1320ml, 1980kcal, 109g prot, 1002ml free water * Post procedure, resume TF as medically appropriate * HOB over 30 degrees/ water flush per MD. ADDITIONAL RECOMMENDATIONS: 1) Calibrated bedscale wt for accurate CBW 2) Monitor lytes, replete as needed 3) Consider NISS/ accuchecks w/ TF for BG control- h/o DM 4) Rec wound eval ( wound photos noted) (2) Fecal impaction Assessment & Plan: IMPRESSION: 1. Dilated fluid and gas-filled small bowel loops with transition point in the right lower quadrant where there is swirling of mesenteric vessels and small bowel, concerning for volvulus causing obstruction. 2. Wall thickening of the rectum may be secondary to fecal material versus proctitis. 3. Obstructing stone measuring 1.2 cm in the proximal right ureter. Moderate to severe right hydronephrosis. Additional stones in the right kidney and right renal pelvis, measuring up to approximately 1.8 cm and the right renal pelvis. 4. Small amount of free fluid in the pelvis. No abscess identified. (3) Sepsis Assessment & Plan: There is an obstructing stone within the ureter which is causing moderate severe hydronephrosis. The urinalysis demonstrated bacteria similar to that of his bacteremia. Potential etiology of sepsis and above is these obstructing stone. appreciate urological evaluation. nephrostomy tube placed cont with current care plan Thank you (4) Anemia (5) Proctitis (6) Gastrostomy tube dependent (7) Obstructive hydrocephalus (8) COPD (chronic obstructive pulmonary disease) (9) Diabetes mellitus (10) Gram negative septicemia (11) Aphasia (12) Feeding by G-tube (13) Cellulitis of scrotum (14) History of CVA (cerebrovascular accident) (15) Suprapubic catheter dysfunction (16) Encephalopathy chronic (17) GILDARDO (acute kidney injury) (18) UTI (urinary tract infection) (19) Septic shock (20) History of DVT (deep vein thrombosis) (21) Suprapubic catheter (22) ATN (acute tubular necrosis) Russell Lopez Nov 13, 2018 11:56
[2018-11-13 12:00] VITALS: BP 100/73
[2018-11-13] MEDS ORDERED: CEFEPIME-D2 GM/50 ML IVPB (12:33)
[2018-11-13] MEDS ORDERED: ZYVOX600 MG GT (12:33)
--- NOTE | 2018-11-13 12:34 | Pulmonology Progress Note ---
Assessment/Plan Problems: (1) Nephrostomy status (2) Septic shock (3) ATN (acute tubular necrosis) (4) COPD (chronic obstructive pulmonary disease) (5) Encephalopathy chronic (6) Obstructive hydrocephalus (7) History of DVT (deep vein thrombosis) (8) Suprapubic catheter (9) Aphasia (10) Feeding by G-tube (11) History of CVA (cerebrovascular accident) Assessment/Plan doing better more stable persistent bacteremia less tachy respiratory treatment titrate fio2 to sat of 92% renal function better. f/u urology recommendations Subjective ROS Limited/Unobtainable: No Constitutional: Reports: no symptoms HEENT: Repors: no symptoms Respiratory: Reports: no symptoms Cardiovascular: Reports: no symptoms Allergies: Coded Allergies: VANCOMYCIN (Verified Allergy, Mild, Redness , 10/29/18) CIPROFLOXACIN (Verified Allergy, Unknown, 08/23/15) Objective Last 24 Hour Vital Signs Date Time Temp Pulse Resp B/P (MAP) Pulse Ox O2 Delivery O2 Flow Rate FiO2 11/13/18 09:00 Room Air 11/13/18 08:00 88 11/13/18 08:00 99.0 119 20 118/61 (80) 95 11/13/18 04:00 98.4 126 20 120/81 (94) 97 11/13/18 04:00 126 11/13/18 00:00 98.6 78 18 140/86 (104) 97 11/13/18 00:00 130 11/12/18 21:00 Room Air 11/12/18 20:00 118 11/12/18 20:00 98.6 118 19 110/77 (88) 95 11/12/18 16:00 98.8 86 20 120/78 (92) 92 11/12/18 16:00 123 Intake and Output 11/12/18 11/13/18 19:00 07:00 Intake Total 840 ml 255 ml Output Total 650 ml 1050 ml Balance 190 ml -795 ml Intake Free Water 200 ml 200 ml IV Total 325 ml Tube Feeding 315 ml 55 ml Output Urine Total 350 ml 1000 ml Other 300 ml 50 ml # Bowel Movements 1 General Appearance: WD/WN HEENT: normocephalic, mucous membranes moist Respiratory/Chest: chest wall non-tender, normal breath sounds Cardiovascular: normal peripheral pulses, normal rate Abdomen: normal bowel sounds, soft, non tender 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: supervisor patching II-XII grossly normal, no motor/sensory deficits Laboratory Tests 11/13/18 07:30: White Blood Count 10.7, Red Blood Count 4.15L, Hemoglobin 11.6L, Hematocrit 36.3L, Mean Corpuscular Volume 88, Mean Corpuscular Hemoglobin 28.0, Mean Corpuscular Hemoglobin Concent 32.0, Red Cell Distribution Width 14.9H, Platelet Count 425, Mean Platelet Volume 6.2L, Neutrophils (%) (Auto) 53.7, Lymphocytes (%) (Auto) 33.0, Monocytes (%) (Auto) 11.1H, Eosinophils (%) (Auto) 0.7, Basophils (%) (Auto) 1.5, Sodium Level 135L, Potassium Level 4.6, Chloride Level 101, Carbon Dioxide Level 28, Anion Gap 7, Blood Urea Nitrogen 23H, Creatinine 1.2, Estimat Glomerular Filtration Rate > 60, Glucose Level 114H, Calcium Level 9.8, Phosphorus Level 3.6, Magnesium Level 2.1 Current Medications Medications (Trade) Dose Ordered Sig/Fab Route PRN Reason Start Time Stop Time Status Last Admin Dose Admin Acetaminophen (Tylenol) 650 mg Q4H PRN GT fever (temp>100.5 F) 11/10/18 02:30 11/28/18 17:29 Cefepime HCl 2 gm/ Dextrose 55 ml @ 110 mls/hr EVERY 8 HOURS IVPB 11/10/18 06:00 11/18/18 23:59 11/13/18 05:47 Diphenhydramine HCl (Benadryl) 25 mg Q6H PRN IVP Itching 11/10/18 05:30 11/28/18 17:29 Docusate Sodium (Colace) 100 mg THREE TIMES A DAY GT 11/12/18 18:00 12/12/18 17:59 11/13/18 08:52 Famotidine (Pepcid) 20 mg Q12HR GT 11/10/18 09:00 11/29/18 20:59 11/13/18 08:52 Heparin Sodium (Porcine) (Heparin 5000 units/ml) 5,000 units EVERY 12 HOURS SUBQ 11/10/18 09:00 11/28/18 08:59 11/13/18 08:54 Linezolid (Zyvox) 600 mg EVERY 12 HOURS GT 11/11/18 15:00 11/16/18 23:00 11/13/18 08:52 Metoclopramide HCl (Reglan) 5 mg EVERY 6 HOURS NG 11/10/18 06:00 12/09/18 11:59 11/13/18 05:47 Ondansetron HCl (Zofran) 4 mg Q6H PRN IVP Nausea & Vomiting 11/10/18 05:30 11/28/18 17:29 Polyethylene Glycol (Miralax) 17 gm DAILYPRN PRN GT Constipation 11/10/18 10:30 11/30/18 17:29 Rigoberto Bryant MD Nov 13, 2018 12:34
--- NOTE | 2018-11-13 12:37 | Nephrology Progress Note ---
Assessment/Plan Problem List: (1) GILDARDO (acute kidney injury) (2) Septic shock (3) Suprapubic catheter (4) History of CVA (cerebrovascular accident) Assessment Acute renal failure- resolved Septic shock on presentation CVA Suprapubic cath / ? Neurogenic bladder HTN DVT UTI Plan K Phos IV stop Hydrate midodrine avoid nephrotoxics monitor renal parameters med surg? per orders Subjective ROS Limited/Unobtainable: No Objective Objective Last 24 Hour Vital Signs Date Time Temp Pulse Resp B/P (MAP) Pulse Ox O2 Delivery O2 Flow Rate FiO2 11/13/18 09:00 Room Air 11/13/18 08:00 88 11/13/18 08:00 99.0 119 20 118/61 (80) 95 11/13/18 04:00 98.4 126 20 120/81 (94) 97 11/13/18 04:00 126 11/13/18 00:00 98.6 78 18 140/86 (104) 97 11/13/18 00:00 130 11/12/18 21:00 Room Air 11/12/18 20:00 118 11/12/18 20:00 98.6 118 19 110/77 (88) 95 11/12/18 16:00 98.8 86 20 120/78 (92) 92 11/12/18 16:00 123 Intake and Output 11/12/18 11/13/18 19:00 07:00 Intake Total 840 ml 255 ml Output Total 650 ml 1050 ml Balance 190 ml -795 ml Intake Free Water 200 ml 200 ml IV Total 325 ml Tube Feeding 315 ml 55 ml Output Urine Total 350 ml 1000 ml Other 300 ml 50 ml # Bowel Movements 1 Laboratory Tests 11/13/18 07:30: White Blood Count 10.7, Red Blood Count 4.15L, Hemoglobin 11.6L, Hematocrit 36.3L, Mean Corpuscular Volume 88, Mean Corpuscular Hemoglobin 28.0, Mean Corpuscular Hemoglobin Concent 32.0, Red Cell Distribution Width 14.9H, Platelet Count 425, Mean Platelet Volume 6.2L, Neutrophils (%) (Auto) 53.7, Lymphocytes (%) (Auto) 33.0, Monocytes (%) (Auto) 11.1H, Eosinophils (%) (Auto) 0.7, Basophils (%) (Auto) 1.5, Sodium Level 135L, Potassium Level 4.6, Chloride Level 101, Carbon Dioxide Level 28, Anion Gap 7, Blood Urea Nitrogen 23H, Creatinine 1.2, Estimat Glomerular Filtration Rate > 60, Glucose Level 114H, Calcium Level 9.8, Phosphorus Level 3.6, Magnesium Level 2.1 Height (Feet): 5 Height (Inches): 7 Weight (Pounds): 232 General Appearance: no apparent distress, lethargic Objective no change Pranav Grady MD Nov 13, 2018 12:37
--- NOTE | 2018-11-13 13:40 | NUR ---
NURSE NOTES: Called [facility] tele: [phone] to give nurse to nurse report patient going 17-c. Per nurse Lydia from [facility], IV antibiotic will not be covered by insurance and need of clarification from .
--- NOTE | 2018-11-13 13:45 | NUR ---
NURSE NOTES: Paged Dr. Bryant regarding IV abx, per Dr. Bryant, ask ID for clearance, no further order given at this time. Paged Dr. Macario regarding Patient being discharged with IV abx. Awaiting for callback.
--- NOTE | 2018-11-13 14:29 | General Progress Note ---
Assessment/Plan Problem List: (1) Obstructive hydrocephalus ICD Codes: G91.1 - Obstructive hydrocephalus SNOMED: 171452769 (2) COPD (chronic obstructive pulmonary disease) ICD Codes: J44.9 - Chronic obstructive pulmonary disease, unspecified SNOMED: 30365860 (3) Diabetes mellitus ICD Codes: E11.9 - Type 2 diabetes mellitus without complications SNOMED: 41218248 (4) Feeding by G-tube ICD Codes: Z93.1 - Gastrostomy status SNOMED: 882919149, 127444869 (5) Sepsis ICD Codes: A41.9 - Sepsis, unspecified organism SNOMED: 26057006 (6) History of CVA (cerebrovascular accident) ICD Codes: Z86.73 - Personal history of transient ischemic attack (TIA), and cerebral infarction without residual deficits SNOMED: 130775693 (7) Encephalopathy chronic ICD Codes: G93.49 - Other encephalopathy SNOMED: 33344324 (8) UTI (urinary tract infection) ICD Codes: N39.0 - Urinary tract infection, site not specified SNOMED: 08954606 Qualifiers: Qualified Codes: N30.00 - Acute cystitis without hematuria (9) Septic shock ICD Codes: A41.9 - Sepsis, unspecified organism; R65.21 - Severe sepsis with septic shock SNOMED: 36685726 (10) ATN (acute tubular necrosis) ICD Codes: N17.0 - Acute kidney failure with tubular necrosis SNOMED: 06333791 Status: stable, progressing Assessment/Plan: o2 pulm tx abx bp control cbc bmp am aru eval Subjective Constitutional: Reports: weakness Allergies: Coded Allergies: VANCOMYCIN (Verified Allergy, Mild, Redness , 10/29/18) CIPROFLOXACIN (Verified Allergy, Unknown, 08/23/15) All Systems: reviewed and negative except above Subjective sleepy calm Objective Last 24 Hour Vital Signs Date Time Temp Pulse Resp B/P (MAP) Pulse Ox O2 Delivery O2 Flow Rate FiO2 11/13/18 09:00 Room Air 11/13/18 08:00 88 11/13/18 08:00 99.0 119 20 118/61 (80) 95 11/13/18 04:00 98.4 126 20 120/81 (94) 97 11/13/18 04:00 126 11/13/18 00:00 98.6 78 18 140/86 (104) 97 11/13/18 00:00 130 11/12/18 21:00 Room Air 11/12/18 20:00 118 11/12/18 20:00 98.6 118 19 110/77 (88) 95 11/12/18 16:00 98.8 86 20 120/78 (92) 92 11/12/18 16:00 123 Intake and Output 11/12/18 11/13/18 19:00 07:00 Intake Total 840 ml 255 ml Output Total 650 ml 1370 ml Balance 190 ml -1115 ml Intake Free Water 200 ml 200 ml IV Total 325 ml Tube Feeding 315 ml 55 ml Output Urine Total 350 ml 1320 ml Other 300 ml 50 ml # Bowel Movements 1 Laboratory Tests 11/13/18 07:30: White Blood Count 10.7, Red Blood Count 4.15L, Hemoglobin 11.6L, Hematocrit 36.3L, Mean Corpuscular Volume 88, Mean Corpuscular Hemoglobin 28.0, Mean Corpuscular Hemoglobin Concent 32.0, Red Cell Distribution Width 14.9H, Platelet Count 425, Mean Platelet Volume 6.2L, Neutrophils (%) (Auto) 53.7, Lymphocytes (%) (Auto) 33.0, Monocytes (%) (Auto) 11.1H, Eosinophils (%) (Auto) 0.7, Basophils (%) (Auto) 1.5, Sodium Level 135L, Potassium Level 4.6, Chloride Level 101, Carbon Dioxide Level 28, Anion Gap 7, Blood Urea Nitrogen 23H, Creatinine 1.2, Estimat Glomerular Filtration Rate > 60, Glucose Level 114H, Calcium Level 9.8, Phosphorus Level 3.6, Magnesium Level 2.1 Height (Feet): 5 Height (Inches): 7 Weight (Pounds): 232 General Appearance: lethargic EENT: normal ENT inspection Neck: normal alignment Cardiovascular: normal peripheral pulses, normal rate, regular rhythm Respiratory/Chest: chest wall non-tender, lungs clear, normal breath sounds Abdomen: normal bowel sounds, non tender, soft Extremities: normal inspection Edema: no edema noted Arm (L), no edema noted Arm (R), no edema noted Leg (L), no edema noted Leg (R), no edema noted Pedal (L), no edema noted Pedal (R), no edema noted Generalized Neurologic: motor weakness Skin: normal pigmentation, warm/dry Jaylen Bear DO Nov 13, 2018 14:29
[2018-11-13] MEDS ORDERED: BACTRIM DS TAB1 EAC1 GT (14:57)
[2018-11-13] MEDS ORDERED: BACTRIM DS TAB1 EAC1 ORAL (15:01)
[2018-11-13 16:00] VITALS: BP 101/72
--- NOTE | 2018-11-13 16:55 | Hematology/Onc Progress Note ---
Assessment/Plan Assessment/Plan # Anemia due to underlying chronic disease, multifactorial, elev inflamm markers --> anemia panel ordered, likely ferritin will be high - reviewed, ferritin at 294 --> hgb trend as 9-->6.7-->10-->11-->10-->10.4-->11.1-->10.6-->10.8-->10.9--> 11.6 --> monitor for hematuria --> hgb goal >7, transfuse prn --> cysto as needed per urology/potential nephrostomy exchange --> dw Dr. Funk on 11/08/18, per uro recs # Leukocytosis likely due to uti, mdr v gi process --> monitor for improvement --> now has been started on linezolid/cefepime --> id and cards recs reviewed --> ct with potential volvulus v proctitis, have consulted gi --> wbc trend 22-->16-->14-->13.1-->12.6-->9.5-->12 # Septic Shock s/p and dehydration, lactic acidosis 2.4. Off levophed and on IV antibiotics --> per id MRSA/ P. Mirabilis bacteremia, olga lidia neg --> on abx as per id recs # Sinus tachycardia 140s likely due to sepsis with fever, HR better --> monitor closely for improvement with cards --> per cards # Hypernatremia --> trend na with renal # Renal failure --> renal recs # CVA with paraplegia # s/p nephrostomy tube The timing of this note does not necessarily reflect the time of the patient was seen. GREATLY APPRECIATE CONSULTATION. Subjective HEENT: Denies: no symptoms, eye pain, blurred vision, tearing, double vision, ear pain, ear discharge, nose pain, nose congestion, throat pain, throat swelling, mouth pain, mouth swelling, other Cardiovascular: Denies: no symptoms, chest pain, edema, irregular heart rate, lightheadedness, palpitations, syncope, other Respiratory: Denies: no symptoms, cough, shortness of breath, SOB with excertion, SOB at rest, sputum, wheezing, other Gastrointestinal/Abdominal: Denies: no symptoms, abdomen distended, abdominal pain, black stools, tarry stools, blood in stool, constipated, diarrhea, difficulty swallowing, nausea, poor appetite, poor fluid intake, rectal bleeding , vomiting, other Genitourinary: Denies: no symptoms, burning, discharge, frequency, flank pain, hematuria, incontinence, pain, urgency, other 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: Denies: no symptoms, anxiety, depressed, emotional problems, headache, numbness, paresthesia, pre-existing deficit, seizure, tingling, tremors, weakness, other Endocrine: Denies: no symptoms, excessive sweating, flushing, intolerance to cold, intolerance to heat, increased hunger, increased thirst, increased urine, unexplained weight gain, unexplained weight loss, other Hematologic/Lymphatic: Denies: no symptoms, anemia, easy bleeding, easy bruising, adenopathy, other Allergies: Coded Allergies: VANCOMYCIN (Verified Allergy, Mild, Redness , 10/29/18) CIPROFLOXACIN (Verified Allergy, Unknown, 08/23/15) Subjective 10/31: dc to med surg from icu, doing better 11/01: given 500cc ns for low bp, pcp was made aware as well as cards 11/02: on zyvox and cefepime, no fc, no bleeding, on feedings 11/03: on abx still, seen by id, and cards, r/o bacteremia induced by valve abnml 11/04: iv is on the right foot, pending potentially picc 11/05: labs have been reviewed, no f/c, no night sweats, seen by uro last night 11/06: anemia w/u reviewed, ferritin at 294, h/h stable, olga lidia postponed 11/07: no events noted, no f/c, on gtube feeds, no bleeding 11/08: npo for possible gtube/nephrostomy procedure, gtube is intact, no f/c 11/10: no events to report, no night sweats, no bleeding, cbc reviewed 11/11: potential olga lidia scheduled, gtube feeds to be advanced, no night sweats, no f 11/12: olga lidia was done and negative, for vegetations 11/13: no events, on abx, suprapubic catheter functioning well Objective Objective Current Medications Medications (Trade) Dose Ordered Sig/Fab Route PRN Reason Start Time Stop Time Status Last Admin Dose Admin Acetaminophen (Tylenol) 650 mg Q4H PRN GT fever (temp>100.5 F) 11/10/18 02:30 11/28/18 17:29 Cefepime HCl 2 gm/ Dextrose 55 ml @ 110 mls/hr EVERY 8 HOURS IVPB 11/10/18 06:00 11/18/18 23:59 11/13/18 13:07 Diphenhydramine HCl (Benadryl) 25 mg Q6H PRN IVP Itching 11/10/18 05:30 11/28/18 17:29 Docusate Sodium (Colace) 100 mg THREE TIMES A DAY GT 11/12/18 18:00 12/12/18 17:59 11/13/18 13:06 Famotidine (Pepcid) 20 mg Q12HR GT 11/10/18 09:00 11/29/18 20:59 11/13/18 08:52 Heparin Sodium (Porcine) (Heparin 5000 units/ml) 5,000 units EVERY 12 HOURS SUBQ 11/10/18 09:00 11/28/18 08:59 11/13/18 08:54 Linezolid (Zyvox) 600 mg EVERY 12 HOURS GT 11/11/18 15:00 11/16/18 23:00 11/13/18 08:52 Metoclopramide HCl (Reglan) 5 mg EVERY 6 HOURS NG 11/10/18 06:00 12/09/18 11:59 11/13/18 13:05 Ondansetron HCl (Zofran) 4 mg Q6H PRN IVP Nausea & Vomiting 11/10/18 05:30 11/28/18 17:29 Polyethylene Glycol (Miralax) 17 gm DAILYPRN PRN GT Constipation 11/10/18 10:30 11/30/18 17:29 Last 24 Hour Vital Signs Date Time Temp Pulse Resp B/P (MAP) Pulse Ox O2 Delivery O2 Flow Rate FiO2 11/13/18 16:00 97.8 79 18 101/72 (82) 96 11/13/18 12:00 97.7 118 18 100/73 (82) 96 11/13/18 09:00 Room Air 11/13/18 08:00 88 11/13/18 08:00 99.0 119 20 118/61 (80) 95 11/13/18 04:00 98.4 126 20 120/81 (94) 97 11/13/18 04:00 126 11/13/18 00:00 98.6 78 18 140/86 (104) 97 11/13/18 00:00 130 11/12/18 21:00 Room Air 11/12/18 20:00 118 11/12/18 20:00 98.6 118 19 110/77 (88) 95 11/12/18 16:00 98.8 86 20 120/78 (92) 92 11/12/18 16:00 123 11/12/18 12:00 97.2 88 18 114/78 (90) 97 11/12/18 12:00 105 11/12/18 09:00 Room Air 11/12/18 08:55 97.0 97 19 110/82 100 Nasal Cannula 3 11/12/18 08:43 88 20 123/97 99 Nasal Cannula 3 11/12/18 08:34 95 18 100 11/12/18 08:33 96 22 116/86 98 Nasal Cannula 3 11/12/18 08:32 97 18 100 11/12/18 08:29 99 20 112/82 95 Nasal Cannula 3 11/12/18 08:23 93 22 111/83 95 Nasal Cannula 3 11/12/18 08:18 91 20 120/86 99 Nasal Cannula 3 11/12/18 08:13 97.0 99 22 112/82 95 Nasal Cannula 3 11/12/18 08:00 108 11/12/18 04:00 98.4 106 19 117/79 (92) 95 11/12/18 04:00 108 11/12/18 00:00 123 11/12/18 00:00 98.4 113 20 124/76 (92) 96 11/11/18 21:00 Room Air 11/11/18 20:00 71 11/11/18 20:00 99.0 87 20 132/86 (101) 95 Intake and Output 11/12/18 11/13/18 18:59 06:59 Intake Total 840 ml 255 ml Output Total 650 ml 850 ml Balance 190 ml -595 ml Intake Free Water 200 ml 200 ml IV Total 325 ml Tube Feeding 315 ml 55 ml Output Urine Total 350 ml 800 ml Other 300 ml 50 ml # Bowel Movements 1 Labs Test 11/11/18 06:24 11/12/18 05:26 11/13/18 07:30 White Blood Count 11.5 K/UL (4.8-10.8) 10.0 K/UL (4.8-10.8) 10.7 K/UL (4.8-10.8) Red Blood Count 3.70 M/UL (4.70-6.10) 3.82 M/UL (4.70-6.10) 4.15 M/UL (4.70-6.10) Hemoglobin 10.8 G/DL (14.2-18.0) 10.9 G/DL (14.2-18.0) 11.6 G/DL (14.2-18.0) Hematocrit 32.5 % (42.0-52.0) 33.5 % (42.0-52.0) 36.3 % (42.0-52.0) Mean Corpuscular Volume 88 FL (80-99) 88 FL (80-99) 88 FL (80-99) Mean Corpuscular Hemoglobin 29.1 PG (27.0-31.0) 28.5 PG (27.0-31.0) 28.0 PG (27.0-31.0) Mean Corpuscular Hemoglobin Concent 33.0 G/DL (32.0-36.0) 32.5 G/DL (32.0-36.0) 32.0 G/DL (32.0-36.0) Red Cell Distribution Width 14.9 % (11.6-14.8) 15.4 % (11.6-14.8) 14.9 % (11.6-14.8) Platelet Count 383 K/UL (150-450) 393 K/UL (150-450) 425 K/UL (150-450) Mean Platelet Volume 6.0 FL (6.5-10.1) 5.9 FL (6.5-10.1) 6.2 FL (6.5-10.1) Neutrophils (%) (Auto) 59.1 % (45.0-75.0) 53.1 % (45.0-75.0) 53.7 % (45.0-75.0) Lymphocytes (%) (Auto) 29.5 % (20.0-45.0) 34.0 % (20.0-45.0) 33.0 % (20.0-45.0) Monocytes (%) (Auto) 9.7 % (1.0-10.0) 9.9 % (1.0-10.0) 11.1 % (1.0-10.0) Eosinophils (%) (Auto) 0.4 % (0.0-3.0) 0.8 % (0.0-3.0) 0.7 % (0.0-3.0) Basophils (%) (Auto) 1.4 % (0.0-2.0) 2.3 % (0.0-2.0) 1.5 % (0.0-2.0) Sodium Level 135 MMOL/L (136-145) 136 MMOL/L (136-145) 135 MMOL/L (136-145) Potassium Level 4.5 MMOL/L (3.5-5.1) 4.5 MMOL/L (3.5-5.1) 4.6 MMOL/L (3.5-5.1) Chloride Level 102 MMOL/L (98-107) 101 MMOL/L (98-107) 101 MMOL/L (98-107) Carbon Dioxide Level 27 MMOL/L (21-32) 28 MMOL/L (21-32) 28 MMOL/L (21-32) Anion Gap 6 mmol/L (5-15) 8 mmol/L (5-15) 7 mmol/L (5-15) Blood Urea Nitrogen 17 mg/dL (7-18) 18 mg/dL (7-18) 23 mg/dL (7-18) Creatinine 1.1 MG/DL (0.55-1.30) 1.1 MG/DL (0.55-1.30) 1.2 MG/DL (0.55-1.30) Estimat Glomerular Filtration Rate > 60 mL/min (>60) > 60 mL/min (>60) > 60 mL/min (>60) Glucose Level 112 MG/DL (74-106) 102 MG/DL (74-106) 114 MG/DL (74-106) Calcium Level 9.2 MG/DL (8.5-10.1) 9.1 MG/DL (8.5-10.1) 9.8 MG/DL (8.5-10.1) Total Protein (PEP) 8.6 g/dL (6.0-8.5) Albumin (PEP) 2.7 g/dL (2.9-4.4) Globulin (PEP) 5.9 g/dL (2.2-3.9) Albumin/Globulin Ratio 0.5 (0.7-1.7) Tvhvc-3-Sfaawimtb 0.3 g/dL (0.0-0.4) Ujevi-3-Llgeisxzt 1.0 g/dL (0.4-1.0) Beta Globulins 1.2 g/dL (0.7-1.3) Beta Gamma Globulin 3.4 g/dL (0.4-1.8) PEP Abnormal Protein Bands Not observed g/dL (Not Protein Electrophoresis Interpret Comment (.) Uric Acid 3.4 MG/DL (2.6-7.2) Phosphorus Level 3.4 MG/DL (2.5-4.9) 3.6 MG/DL (2.5-4.9) Magnesium Level 2.1 MG/DL (1.8-2.4) 2.1 MG/DL (1.8-2.4) Total Bilirubin 0.2 MG/DL (0.2-1.0) Direct Bilirubin < 0.1 MG/DL (0.0-0.3) Aspartate Amino Transf (AST/SGOT) 17 U/L (15-37) Alanine Aminotransferase (ALT/SGPT) 14 U/L (12-78) Alkaline Phosphatase 62 U/L (46-116) Total Protein 9.5 G/DL (6.4-8.2) Albumin 2.3 G/DL (3.4-5.0) Height (Feet): 5 Height (Inches): 7 Weight (Pounds): 232 Objective PE Gen: A+O x1, NAD HEENT: normocephalic, atraumatic Neck: non-tender, normal alignment Chest: chest wall non-tender, lungs clear CV: normal peripheral pulses, normal rate Abdomen: normal bowel sounds, non tender ++ peg ++ suprapubic catheter Extremities: normal range of motion Nathan Ludwig MD Nov 13, 2018 16:55
--- NOTE | 2018-11-13 17:00 | NUR ---
NURSE NOTES: Per Dr. Macario, changed cefepime IV to Bactrim DS 1 tab GT BID, Zyvox 600 mg BID GT until 11/19 and MRSA in blood is not colonized, okay to discharge patient SNF today. Order noted, entered in discharge order. Dr. Bryant made aware of ID stand points.
--- NOTE | 2018-11-13 17:27 | NUR ---
NURSE NOTES: Called [facility] tele : [phone], per Intensive Care Unit Registered Nurse no RN tabulating supervisor available at this time, stated call 10 min later.
--- NOTE | 2018-11-13 17:51 | NUR ---
NURSE NOTES: Report given to CANDI Whaley from [facility] tele : [phone]. Patient going room 17-C, no belongings, family member made aware of transfer. Life line arranged at 1830.
--- NOTE | 2018-11-13 19:38 | NUR ---
NURSE NOTES: Received report from Kyler CHRISTOPHER. Patient lyng in bed resting with no sign of sob. Pt is Patient AOx1, open eyes spontaneously, ST with HR 110, IV on right FA 22G, c/d/i. Suprapubic Catheter draining well to gravity, nephrostomy on right side draining well. Patient on G-tube feeding, running as prescribed rate, no residual at this time. Bed in lowest position, side rails padded up x3, call light within reach, bed alarm on. Will continue to monitor.
--- NOTE | 2018-11-13 19:41 | NUR ---
HAND-OFF: Report given to CANDI Macario.
[2018-11-13 20:00] VITALS: BP 111/72
--- NOTE | 2018-11-13 20:04 | Infectious Diseases Prog Note ---
Assessment/Plan Assessment/Plan Assessment: Septic shock- SP -probable pNA -MRSA/ P Mirabilis, E. fecalis bacteremia- m/l source UTI from obstructive stone -11/12 TASNEEM: no vegetations -11/08 SP R nephrostomy --findings: small amount slightly purulent urine sent for C and S. Intraprocedural images demonstrate dilated right renal collecting system. Multiple filling defects are compatible with a calculi demonstrated on recent CT scan --cx E. fecalis (S Vancomycin, Amp) -small bowel series: No significant small bowel obstruction demonstrated; contrast transitethe entire GI tract in 3 hours -11/03 CT abd/p: 1. Dilated fluid and gas-filled small bowel loops with transition point in the right lower quadrant where there is swirling of mesenteric vessels and small bowel, concerning for volvulus causing obstruction. Wall thickening of the rectum may be secondary to fecal material versus proctitis. Obstructing stone measuring 1.2 cm in the proximal right ureter. Moderate to severe right hydronephrosis. Additional stones in the right kidney and right renal pelvis, measuring up to approximately 1.8 cm and the right renal pelvis. Small amount of free fluid in the pelvis. No abscess identified. -10/30 CXR: Right perihilar disease possibly atelectasis or pneumonia. No change -repeat u/a wbc tnct, nit +, leuk +3 -u/a wbc 19-15, nit +, leuk +2; ucx >100k P. mirabilis (Previously reporte as onlyS Genta, Ertapenem, Zosyn; now hs been updated to R Nitrofurantoin and otherwise S) -CXR: Low lung volumes with right perihilar atelectatic changes. No definite acute process -10/29 Bcx 4/ P. mirabilis (neri S), MRSA; repeat Bcx Neg; 10/30 BCxx 2/ P Mirabilis , 1/ E. fecalis (S Vanc, AMP); 11/01 Bcx / P. mirabilis, E. fecalis ; 11/05 BCx Neg -sp cx PsA (neri S), MRSA -2d Echo: no vegeatiosn Fever; SP Leukocytosis; SP GILDARDO, SP hx of UTI -07/2018 ucx E. fecalis (neri S), P. mirabilis -03/2019 ucx PsA TCP , SP CVA/TIA Dm2 CKD suprapubic catheter DVT hypertensive heart disease [place] resident Plan: cont Zyvox #13 and Cefepime #12 ( monitor PLT ) for MRSA, enterococcus and Proteus bacteremia, respectively; continue until November 19/2019 (2 weeks from 1st neg BCx) --Upon discharge can be transition to Oral zyvox 600mg bid and PO Bactrim DS 1 tab bid --monitor platelets -11/02 SP Meropenem #4 -11/01 Sp Amikacin #4 , IV Vancomycin #3 -10/29 SP Ertapenem #1, IV Vancomycin x1 -f/u cx -Monitor CBC/CMP, temperatures -aspiration precautions -Uro, Cards, Sx f/u Subjective Allergies: Coded Allergies: VANCOMYCIN (Verified Allergy, Mild, Redness , 10/29/18) CIPROFLOXACIN (Verified Allergy, Unknown, 08/23/15) Subjective afebrile no leukocytosis resolved discharge planning Objective Vital Signs Last 24 Hour Vital Signs Date Time Temp Pulse Resp B/P (MAP) Pulse Ox O2 Delivery O2 Flow Rate FiO2 11/13/18 16:00 117 11/13/18 16:00 97.8 79 18 101/72 (82) 96 11/13/18 12:00 116 11/13/18 12:00 97.7 118 18 100/73 (82) 96 11/13/18 09:00 Room Air 11/13/18 08:00 88 11/13/18 08:00 99.0 119 20 118/61 (80) 95 11/13/18 04:00 98.4 126 20 120/81 (94) 97 11/13/18 04:00 126 11/13/18 00:00 98.6 78 18 140/86 (104) 97 11/13/18 00:00 130 11/12/18 21:00 Room Air Height (Feet): 5 Height (Inches): 7 Weight (Pounds): 232 Objective General Appearance: WD/WN, no apparent distress Lines, tubes and drains: peripheral, central line, gtube HEENT: normocephalic, atraumatic, anicteric Neck: non-tender, normal alignment Respiratory/Chest: chest wall non-tender, lungs clear Cardiovascular/Chest: normal peripheral pulses, normal rate Abdomen: normal bowel sounds Extremities: normal range of motion Laboratory Tests Test 11/13/18 07:30 White Blood Count 10.7 K/UL (4.8-10.8) Red Blood Count 4.15 M/UL (4.70-6.10) L Hemoglobin 11.6 G/DL (14.2-18.0) L Hematocrit 36.3 % (42.0-52.0) L Mean Corpuscular Volume 88 FL (80-99) Mean Corpuscular Hemoglobin 28.0 PG (27.0-31.0) Mean Corpuscular Hemoglobin Concent 32.0 G/DL (32.0-36.0) Red Cell Distribution Width 14.9 % (11.6-14.8) H Platelet Count 425 K/UL (150-450) Mean Platelet Volume 6.2 FL (6.5-10.1) L Neutrophils (%) (Auto) 53.7 % (45.0-75.0) Lymphocytes (%) (Auto) 33.0 % (20.0-45.0) Monocytes (%) (Auto) 11.1 % (1.0-10.0) H Eosinophils (%) (Auto) 0.7 % (0.0-3.0) Basophils (%) (Auto) 1.5 % (0.0-2.0) Sodium Level 135 MMOL/L (136-145) L Potassium Level 4.6 MMOL/L (3.5-5.1) Chloride Level 101 MMOL/L (98-107) Carbon Dioxide Level 28 MMOL/L (21-32) Anion Gap 7 mmol/L (5-15) Blood Urea Nitrogen 23 mg/dL (7-18) H Creatinine 1.2 MG/DL (0.55-1.30) Estimat Glomerular Filtration Rate > 60 mL/min (>60) Glucose Level 114 MG/DL (74-106) H Calcium Level 9.8 MG/DL (8.5-10.1) Phosphorus Level 3.6 MG/DL (2.5-4.9) Magnesium Level 2.1 MG/DL (1.8-2.4) Current Medications Medications (Trade) Dose Ordered Sig/Fab Route PRN Reason Start Time Stop Time Status Last Admin Dose Admin Acetaminophen (Tylenol) 650 mg Q4H PRN GT fever (temp>100.5 F) 11/10/18 02:30 11/28/18 17:29 Cefepime HCl 2 gm/ Dextrose 55 ml @ 110 mls/hr EVERY 8 HOURS IVPB 11/10/18 06:00 11/18/18 23:59 11/13/18 13:07 Diphenhydramine HCl (Benadryl) 25 mg Q6H PRN IVP Itching 11/10/18 05:30 11/28/18 17:29 Docusate Sodium (Colace) 100 mg THREE TIMES A DAY GT 11/12/18 18:00 12/12/18 17:59 11/13/18 18:17 Famotidine (Pepcid) 20 mg Q12HR GT 11/10/18 09:00 11/29/18 20:59 11/13/18 08:52 Heparin Sodium (Porcine) (Heparin 5000 units/ml) 5,000 units EVERY 12 HOURS SUBQ 11/10/18 09:00 11/28/18 08:59 11/13/18 08:54 Linezolid (Zyvox) 600 mg EVERY 12 HOURS GT 11/11/18 15:00 11/16/18 23:00 11/13/18 08:52 Metoclopramide HCl (Reglan) 5 mg EVERY 6 HOURS NG 11/10/18 06:00 12/09/18 11:59 11/13/18 18:16 Ondansetron HCl (Zofran) 4 mg Q6H PRN IVP Nausea & Vomiting 11/10/18 05:30 11/28/18 17:29 Polyethylene Glycol (Miralax) 17 gm DAILYPRN PRN GT Constipation 11/10/18 10:30 11/30/18 17:29 Dorothea Macario M.D. Nov 13, 2018 20:04
[2018-11-13] MEDS ORDERED: Sterile Water Irrig 1000ml IRRIG ONE (20:13)
--- NOTE | 2018-11-13 20:16 | NUR ---
NURSE NOTES: IV removed, per Kyler CHRISTOPHER she gave report to Jovana at [facility]. Pt left floor at 2015
--- NOTE | 2018-11-14 08:21 | Discharge Summary ---
Discharge Summary Discharge Summary _ DATE OF ADMISSION: 10/29/2018 DATE OF DISCHARGE: 11/13/2018 DISCHARGED BY: Dr Bear REASON FOR ADMISSION: 58 years old male, resident of long-term facility, with past medical history of COPD, diabetes mellitus type 2, seizure disorder, chronic renal failure, history of CVA, paraplegia, aphasia, encephalopathy, dysphagia, history of DVT, presented with chief complaint presented for evaluation due to fever tachycardia possible sepsis. Patient was recently treated for UTI with ciprofloxacin. [facility] and was tachycardic. Patient by himself was unable to provide any information upon evaluation patient was febrile tachycardic. And hypotensive. Laboratory work-up revealed leukocytosis. Chemistry revealed evidence of acute renal failure. Lactic acid elevated. Troponin negative EKG revealed sinus tachycardia no acute ischemic changes. Chest x-ray demonstrated low lung volumes right basilar atelectatic changes no definite acute process. Urinalysis revealed evidence of gross evidence of UTI. Patient pancultured started on empiric antibiotics blood pressure was poorly responsive to patient received fluid bolus. Tachycardia improved blood pressure still remains low patient started on Levophed drip and admitted to ICU for further management CONSULTANTS: supervisor steel division Dr. Stroud pulmonary critical care Dr. Bryant ID specialist Amirah GI specialist Dr. Faust lithographic photographer apprentice Dr. Grady reading interventionist/oncologist Dr Ludwig surgery Dr. Lopez Urologist Dr. Funk [facility]: Patient admitted to ICU. Patient was on Levophed drip. Hemodynamic status was closely monitored to keep mean arterial blood pressure above 65. Echocardiogram revealed preserved ejection fraction of 60 to 65% with no evidence of left ventricular hypertrophy. No evidence of wall motion abnormality. Right ventricular systolic pressure of 42 consistent with mild pulmonary hypertension. Supplemental oxygen provided as needed to keep pulse oximetry above 92%. Nebulizing treatments with bronchodilator provided as needed. Patient was followed-up with chest x-ray. Per supervisor steel division , initial sinus tachycardia was likely due to sepsis and fever. Heart rate improved. Patient apparently had an inferior wall myocardial infarction, based on electrocardiogram. Patient was ruled out for acute VA on this admission with serial negative troponin and no acute ischemic changes on ECG. Antibiotics provided as per ID specialist recommendation. Blood culture revealed Proteus and MRSA Urine culture revealed Proteus and MRSA. Follow-up of blood culture on 10/30 revealed Proteus and Enterococcus faecalis. Sputum culture revealed MRSA and Pseudomonas. Repeated blood culture on 11/05 were negative. Patient was able to be weaned from pressors. Hemodynamic status was closely monitored. Patient was initially on midodrine, but was able to be weaned from it. DVT and GI prophylaxis provided. Venous duplex bilateral lower extremity reveal no evidence of acute DVT. Left leg demonstrated recanalized chronic thrombus in the superficial femoral vein. Renal ultrasound demonstrated hydronephrosis. Stretcher Leveler Operator followed. Renal parameters and electrolytes were closely monitored. Electrolytes corrected as needed. Nephrotoxins were avoided. CT of the abdomen and pelvis on this admission revealed -Dilated fluid and gas-filled small bowel loops with transition point in the right lower quadrant where there is swirling of mesenteric vessels and small bowel, concerning for volvulus causing obstruction. -Wall thickening of the rectum may be secondary to fecal material versus proctitis. -Obstructing stone measuring 1.2 cm in the proximal right ureter. Moderate to severe right hydronephrosis. Additional stones in the right kidney and right renal pelvis, measuring up to approximately 1.8 cm and the right renal pelvis. -Small amount of free fluid in the pelvis. No abscess was identified. Urologist followed. Suprapubic catheter was exchanged due to malfunctioning of suprapubic catheter. Patient had obstructive stone based on CT scan results. Given his medical condition, urologist recommended to watch patient conservatively. Right nephrostomy tube was placed under fluoroscopic and sonographic guidance on 11/08. Per urology , patient may need a retrograde intrarenal surgery with possible extracorporeal shockwave lithotripsy , if decision will be made to operate. Prior to discharge BUN 23 , creatinine 1.2 . Acute kidney injury resolved. Sodium 135. Fluid culture from nephrostomy tube was positive for Enterococcus faecalis. Last blood culture on 11/05 were negative. Patient undergone TASNEEM on 11/12 due to MRSA bacteremia , which revealed no evidence of vegetation. ID specialist recommended continue antibiotics at nursing facility to complete the course of 2 weeks treatment from the first negative blood culture; till November 19 Patient upon discharge was transitioned to oral Zyvox and oral Bactrim. Closely monitor platelets at the facility. Per ID specialist, bacteremia was likely secondary to UTI due to obstructive stone. General surgeon and GI specialist followed for possible volvulus, proctitis,, fecal impaction seen on CT skin. Per surgeon, CT scan showed possible potential volvulus. However on examination clinically patient did not seem to have volvulus of bowel obstruction. Abdomen was soft, nondistended, nontender, with positive bowel sounds. Patient was tolerated feeding through G-tube, had bowel movement, and was passing flatus. Small bowel follow-through with Gastrografin revealed no significant small bowel obstruction. Contrast transited the entire GI tract in 3 hours. Follow-up KUB revealed presumed ileus, stable. Bowel regimen instituted. Tube feeding continued. Strict aspiration precautions maintained. Tube feeding formula and nutritional supplements provided as per registered account administrator recommendation. Stool for occult blood was negative. Hemoglobin and hematocrit were closely monitored with goal to keep hemoglobin above 7. Anemia work-up was consistent with anemia of chronic disease. Ferritin 294. Prior to discharge hemoglobin 11.6, hematocrit 36.3. GI specialist recommended outpatient GI procedure. Blood sugar was closely monitored and remained stable. Hemoglobin A1c 5.4. Leukocytosis resolved, no fevers. Acute renal failure resolved. Patient remained hemodynamically stable. Patient was ready for discharge to long-term facility to complete antibiotic course and continue with current management. FINAL DIAGNOSES: Septic shock -resolved Sepsis MRSA, Proteus and Enterococci bacteremia MRSA and Proteus UTI Probably pneumonia Acute kidney injury with obstructive nephropathy s/p right nephrostomy tube placement 8/2 Chronic encephalopathy COPD Old inferior wall myocardial infarction, baseline electrocardiogram Sinus tachycardia History of CVA with paraplegia and aphasia Status post suprapubic catheter placement Hypernatremia-resolved Dysphagia , feeding by G-tube History of DVT Fecal impaction Probably ileus Diabetes melitis DISCHARGE MEDICATIONS: See Medication Reconciliation list. DISCHARGE INSTRUCTIONS: Patient was discharged to the long-term facility. Follow up with medical doctor at the facility. I have been assigned to dictate discharge summary for this account. I was not involved in the patient's management. Ann Marie Lees NP Nov 14, 2018 08:21
== END 2018-11-13 20:14 | DRG 720 ==
LOC: EDBD 00:01 → EMR 00:23 → ICU 01:50 → EDBEDREQ 02:07 → 4E 10-31 17:12 → 2W 11-01 10:17 → 2E 11-07 22:24
PROC: 0T9030Z Drainage of Right Kidney with Drainage Device, Percutaneous Approach (ICD-10-PCS; principal; 2018-11-08)
PROC: B246ZZ4 Ultrasonography of Right and Left Heart, Transesophageal (ICD-10-PCS; 2018-11-12)
DX: A41.50 Gram-negative sepsis, unspecified (principal); N17.0 Acute kidney failure with tubular necrosis; R65.21 Severe sepsis with septic shock; G93.49 Other encephalopathy; N39.0 Urinary tract infection, site not specified; E87.0 Hyperosmolality and hypernatremia; G91.1 Obstructive hydrocephalus; E46 Unspecified protein-calorie malnutrition; Z68.36 Body mass index [BMI] 36.0-36.9, adult; J44.0 Chronic obstructive pulmonary disease with (acute) lower respiratory infection; J18.9 Pneumonia, unspecified organism; E11.9 Type 2 diabetes mellitus without complications; I69.369 Other paralytic syndrome following cerebral infarction affecting unspecified side; I69.320 Aphasia following cerebral infarction; Z86.718 Personal history of other venous thrombosis and embolism; E86.0 Dehydration; I11.9 Hypertensive heart disease without heart failure; Z93.1 Gastrostomy status; D64.9 Anemia, unspecified; N31.9 Neuromuscular dysfunction of bladder, unspecified; K56.2 Volvulus; K56.7 Ileus, unspecified; K56.41 Fecal impaction; N49.2 Inflammatory disorders of scrotum; T83.010A Breakdown (mechanical) of cystostomy catheter, initial encounter; E66.01 Morbid (severe) obesity due to excess calories; N13.8 Other obstructive and reflux uropathy; R13.10 Dysphagia, unspecified; K62.89 Other specified diseases of anus and rectum; I82.512 Chronic embolism and thrombosis of left femoral vein
CPT/HCPCS: 36415; 36600; 50432; 71045; 74018; 74177; 74250; 76770; 80048; 80053; 80061; 80076; 80150; 81001; 81003; 82043; 82270; 82533; 82550; 82553; 82728; 82803; 82977; 83036; 83540; 83550; 83605; 83735; 83880; 83935; 84100; 84165; 84300; 84443; 84484; 84550; 85007; 85025; 85610; 85651; 85730; 86140; 87040; 87070; 87081; 87086; 87181; 87205; 89050; 93005; 93306; 93312; 93970; 94003; 94150; 94640; 94664; 96365; 99291; J7620; J8499

== ENCOUNTER 2018-12-06 12:19 | Inpatient (IN) | payer MEDICAID ==
[~2018-12-06] VITALS: Ht 180.3 cm; Wt 90.7 kg
[~2018-12-06 12:19] MED LIST changes: +BACTRIM DS TAB1 EAC1 GT; +BACTRIM DS TAB1 EAC1 ORAL; +CEFEPIME-D2 GM/50 ML IVPB; +PRO-STAT LIQUID30 ML GT; +SENNA176 MG/5 M GT; +SENNA8.6 M2 GT; +ZYVOX600 MG GT
[2018-12-06 12:30] VITALS: BP 118/84
--- NOTE | 2018-12-06 12:30 | NUR ---
ED Nurse Note: pt was brought in by ambulance from [facility] c/o no urine output started yesterday, pt had neprhostomy done in the past, pt noted to have g tube and suprapubic catheter. pt is nonberbal, bedbound. pt vs within normal limit. not in acute distress. will continue to monitor.
[2018-12-06 13:00] VITALS: BP 134/89
--- NOTE | 2018-12-06 13:15 | NUR ---
ED Nurse Note: with new order from michael, iv stablish on the right forearm, blood sent to lab. pt has no urine output ermd is aware. ermd ordered iv bolus. will continue to monitor.
--- NOTE | 2018-12-06 13:30 | NUR ---
ED Nurse Note: ermd notified regarding the no urine output and verbally ordered to put iv on 100mL/hour. pt vss. will continue to monitor.
--- NOTE | 2018-12-06 13:33 | Diagnostic Imaging Report ---
Indication: Dyspnea Comparison: 11/01/2018 A single view chest radiograph was obtained. Findings: Lung volumes are low bilaterally. Heart size is normal. Bones are unremarkable. IMPRESSION: No acute findings.
[2018-12-06 13:37] LABS: EOSINOPHILS % (AUTO) 4.8 % (0.0-3.0); HEMATOCRIT 43.3 % (42.0-52.0); HEMOGLOBIN 13.3 G/DL (14.2-18.0); LYMPHOCYTES % (AUTO) 37.1 % (20.0-45.0); MEAN CORPUSCULAR VOLUME 94 FL (80-99); MONOCYTES % (AUTO) 6.9 % (1.0-10.0); NEUTROPHILS % (AUTO) 50.2 % (45.0-75.0); PLATELET COUNT 277 K/UL (150-450); RED BLOOD COUNT 4.61 M/UL (4.70-6.10); RED CELL DISTRIBUTION WIDTH 18.9 % (11.6-14.8)
[2018-12-06 13:40] LABS: ANION GAP 10 mmol/L (5-15); BLOOD UREA NITROGEN 44 mg/dL (7-18); CALCIUM 9.8 MG/DL (8.5-10.1); CARBON DIOXIDE 29 MMOL/L (21-32); CHLORIDE 117 MMOL/L (98-107); CREATININE 0.9 MG/DL (0.55-1.30); POTASSIUM 3.9 MMOL/L (3.5-5.1); SODIUM 156 MMOL/L (136-145)
[2018-12-06] MEDS ORDERED: LORazepam Inj 2mg/ml 1ml IV PRN (13:45)
[2018-12-06] MEDS ORDERED: Morphine Sulfate 2mg/ml Inj(IV/IM USE ONLY) IVP PRN (13:45)
[2018-12-06 13:51] LABS: ALANINE AMINOTRANSFERASE 61 U/L (12-78); ALBUMIN 3.2 G/DL (3.4-5.0); ALBUMIN/GLOBULIN RATIO 0.5 (1.0-2.7); ALKALINE PHOSPHATASE 61 U/L (46-116); ASPARTATE AMINO TRANSFERASE 34 U/L (15-37); BILIRUBIN,TOTAL 0.4 MG/DL (0.2-1.0)
--- NOTE | 2018-12-06 13:56 | Emergency Room Report ---
History of Present Illness General Chief Complaint: Male Urogenital Problems Source: Medical Record Present Illness HPI 58-year-old male presents ED for evaluation. Brought in by EMS from [facility] facility. Per nursing staff patient noted to have clogged nephrostomy tube on the right side. The flush x1 day. Patient nonverbal at time. No signs of distress upon arrival. No reported fevers or chills. No other aggravating relieving factors. No other associated symptoms Allergies: Coded Allergies: VANCOMYCIN (Verified Allergy, Mild, Redness , 10/29/18) CIPROFLOXACIN (Verified Allergy, Unknown, 08/23/15) Patient History Past Medical History: DM, COPD, other - encephalopathy Pertinent Family History: none Social History: Denies: smoking, alcohol use, drug use Immunizations: UTD Reviewed Nursing Documentation: PMH: Agreed; PSxH: Agreed Nursing Documentation-PMH Past Medical History: No History, Except For Hx Cardiac Problems: Yes - tachycardia, DVT Hx COPD: Yes Hx Diabetes: Yes - type 2 Hx Cancer: No Hx Gastrointestinal Problems: Yes - Dysphagia Hx Neurological Problems: Yes - Encephalopathy Hx Cerebrovascular Accident: Yes Hx Transient Ischemic Attacks: Yes Hx Seizures: Yes - CRF Hx Paralysis: Yes - paraplegic Hx Speech Problem: Yes Hx Aphasia: Yes Review of Systems All Other Systems: limited Physical Exam Vital Signs Date Time Temp Pulse Resp B/P (MAP) Pulse Ox O2 Delivery O2 Flow Rate FiO2 12/06/18 12:19 98.2 98 18 118/84 (95) 98 Room Air Sp02 EP Interpretation: reviewed, normal General Appearance: no apparent distress, GCS 15, non-toxic, other - nonverbal Head: normocephalic Eyes: bilateral eye normal inspection, bilateral eye PERRL ENT: hearing grossly normal Neck: normal inspection Respiratory: chest non-tender, lungs clear, normal breath sounds, speaking full sentences Cardiovascular #1: regular rate, rhythm, no edema Gastrointestinal: normal bowel sounds, non tender, soft, non-distended, no guarding, no rebound Rectal: deferred Genitourinary: other - R nephrostomy tube. unable to flush Musculoskeletal: other - contracted extremities Neurologic: other - nonverbal Psychiatric: other - nonverbbal Skin: other - see nursing notes Lymphatic: other Medical Decision Making Diagnostic Impression: Primary Impression: Malfunction of nephrostomy tube Additional Impressions: Hypernatremia Encephalopathy chronic ER Course Hospital Course 58 yo M presents to ED with malfunctioning nephrostomy tube Differential Diagnosis - dehydration, sepsis, UTI Clinical course Patient placed on stretcher. After initial history and physical, I ordered labs , blood cultures, CXR, IV fluids. Labs reviewed-no leukocytosis, hemoglobin/hematocrit stable, Na 156, BUN elevated, EKG - NSR, no acute ischemic changes interpreted by me CXR - no acute process IVFs given. Case discussed with Dr. Bear and he agreed to accept the patient to his service for further care and support Diagnosis - malfunction of nephrostomy tube, hypernatremia, chronic encephalopathy Admitted to telemetry in serious condition Labs Test 12/06/18 13:17 White Blood Count 10.0 K/UL (4.8-10.8) Red Blood Count 4.61 M/UL (4.70-6.10) Hemoglobin 13.3 G/DL (14.2-18.0) Hematocrit 43.3 % (42.0-52.0) Mean Corpuscular Volume 94 FL (80-99) Mean Corpuscular Hemoglobin 28.9 PG (27.0-31.0) Mean Corpuscular Hemoglobin Concent 30.8 G/DL (32.0-36.0) Red Cell Distribution Width 18.9 % (11.6-14.8) Platelet Count 277 K/UL (150-450) Mean Platelet Volume 9.1 FL (6.5-10.1) Neutrophils (%) (Auto) 50.2 % (45.0-75.0) Lymphocytes (%) (Auto) 37.1 % (20.0-45.0) Monocytes (%) (Auto) 6.9 % (1.0-10.0) Eosinophils (%) (Auto) 4.8 % (0.0-3.0) Basophils (%) (Auto) 1.0 % (0.0-2.0) Prothrombin Time 11.0 SEC (9.30-11.50) Prothromb Time International Ratio 1.0 (0.9-1.1) Activated Partial Thromboplast Time 25 SEC (23-33) Sodium Level 156 MMOL/L (136-145) Potassium Level 3.9 MMOL/L (3.5-5.1) Chloride Level 117 MMOL/L (98-107) Carbon Dioxide Level 29 MMOL/L (21-32) Anion Gap 10 mmol/L (5-15) Blood Urea Nitrogen 44 mg/dL (7-18) Creatinine 0.9 MG/DL (0.55-1.30) Estimat Glomerular Filtration Rate > 60 mL/min (>60) Glucose Level 114 MG/DL (74-106) Lactic Acid Level 1.00 mmol/L (0.4-2.0) Calcium Level 9.8 MG/DL (8.5-10.1) Total Bilirubin 0.4 MG/DL (0.2-1.0) Aspartate Amino Transf (AST/SGOT) 34 U/L (15-37) Alanine Aminotransferase (ALT/SGPT) 61 U/L (12-78) Alkaline Phosphatase 61 U/L (46-116) Pro-B-Type Natriuretic Peptide 49 pg/mL (0-125) Total Protein 9.4 G/DL (6.4-8.2) Albumin 3.2 G/DL (3.4-5.0) Globulin 6.2 g/dL Albumin/Globulin Ratio 0.5 (1.0-2.7) EKG Diagnostic Results Rate: normal Rhythm: NSR ST Segments: no acute changes ASA given to the pt in ED: No Rhythm Strip Diag. Results EP Interpretation: yes Rhythm: NSR, no PVC's, no ectopy Chest X-Ray Diagnostic Results Chest X-Ray Diagnostic Results : Chest X-Ray Ordered: Yes # of Views/Limited/Complete: 1 View Indication: Other EP Interpretation: Yes Interpretation: no consolidation, no effusion, no pneumothorax, no acute cardiopulmonary disease Impression: No acute disease Electronically Signed by: Electronically signed by Willie Campos MD Last Vital Signs Date Time Temp Pulse Resp B/P (MAP) Pulse Ox O2 Delivery O2 Flow Rate FiO2 12/06/18 12:30 98.2 98 18 118/84 98 Room Air Status: improved Disposition: ADMITTED INPATIENT Condition: Serious Referrals: Jaylen Bear DO (PCP) Willie Campos MD Dec 06, 2018 13:56
[2018-12-06 15:00] VITALS: BP 132/88
--- NOTE | 2018-12-06 15:15 | NUR ---
ED Nurse Note: attempted to give report to reciveing rn on tele but rn unable to recieve report now,
--- NOTE | 2018-12-06 15:26 | NUR ---
ED Nurse Note: Pt is admitted to the hospital and report was given to Millicent levin.
--- NOTE | 2018-12-06 16:10 | NUR ---
ED Nurse Note: pt was transfered to tele floor with stable vs and pt belongings endorsed to allen levin.
[2018-12-06 16:39] LABS: APPEARANCE,URINE CLOUDY; BILIRUBIN, URINE NEGATIVE (NEGATIVE); COLOR,URINE AMBER; GLUCOSE, URINE (UA) NEGATIVE (NEGATIVE); KETONES,URINE NEGATIVE (NEGATIVE); LEUKOCYTE ESTERASE ,URINE 3+ (NEGATIVE); NITRITE,URINE POSITIVE (NEGATIVE); PH,URINE 7 (4.5-8.0); PROTEIN,URINE 2+ (NEGATIVE); UROBILINOGEN,URINE NORMAL MG/DL (0.0-1.0)
[2018-12-06] MEDS ORDERED: D5 1/2NS 1,000 ML IV SCH (17:00)
--- NOTE | 2018-12-06 17:00 | NUR ---
NURSE NOTES: RECEIVED PATIENT FROM ER WITH NO BELONGING, IV INTACT AND PATENT RUNNING D51/2NS 50 CC /HR ORDERED. IMPAIRED SKIN INTEGRITY NOTED ON RIGHT BUTTOCK AND WOUND CARE DONE PER PROTOCOL. CALL LIGHT WITH IN REACH,BED AT LOWEST POSITION RAILS UP X 3, BED ALARM ON FOR SAFETY REASONS. OT HAS SP CATH DRAINING YELLOW COLOR URIN AT THIS TIME. WILL CONTINUE TO MONITOR.
--- NOTE | 2018-12-06 18:12 | NUR ---
[facility]STOPHER for med verification and flu/PNE vaccination hx
--- NOTE | 2018-12-06 19:40 | NUR ---
HAND-OFF: Report given to KRISTAL CHRISTOPHER.
--- NOTE | 2018-12-06 19:57 | NUR ---
NURSE NOTES: Received pt from CANDI Martin. Pt awake, confused, and trying to pull off monitor. Bed in lowest position. Call light within reach. Will continue to monitor.
[2018-12-06 20:00] VITALS: BP 141/62
[2018-12-06] MEDS ORDERED: UTI-STAT L3875 MG/31 GT (20:49)
[2018-12-06] MEDS: Carvedilol 6.25mg Tab GT SCH (21:11)
[2018-12-06] MEDS: Heparin 5000 units/ml inj SUBQ SCH (21:13)
[2018-12-07] VITALS: BP 109/78
[2018-12-07 04:00] VITALS: BP 109/80
[2018-12-07 05:19] LABS: BASOPHILS % (AUTO) 1.7 % (0.0-2.0); EOSINOPHILS % (AUTO) 6.1 % (0.0-3.0); HEMATOCRIT 43.4 % (42.0-52.0); HEMOGLOBIN 13.5 G/DL (14.2-18.0); LYMPHOCYTES % (AUTO) 45.4 % (20.0-45.0); MEAN CORPUSCULAR VOLUME 95 FL (80-99); MONOCYTES % (AUTO) 5.1 % (1.0-10.0); NEUTROPHILS % (AUTO) 41.8 % (45.0-75.0); PLATELET COUNT 224 K/UL (150-450); RED BLOOD COUNT 4.59 M/UL (4.70-6.10); RED CELL DISTRIBUTION WIDTH 18.2 % (11.6-14.8); WHITE BLOOD COUNT 8.9 K/UL (4.8-10.8)
[2018-12-07 05:49] LABS: ALANINE AMINOTRANSFERASE 56 U/L (12-78); ALBUMIN/GLOBULIN RATIO 0.5 (1.0-2.7); ALKALINE PHOSPHATASE 62 U/L (46-116); ANION GAP 6 mmol/L (5-15); ASPARTATE AMINO TRANSFERASE 37 U/L (15-37); BILIRUBIN,TOTAL 0.5 MG/DL (0.2-1.0); BLOOD UREA NITROGEN 40 mg/dL (7-18); CALCIUM 9.3 MG/DL (8.5-10.1); CARBON DIOXIDE 29 MMOL/L (21-32); CHLORIDE 114 MMOL/L (98-107); CREATININE 0.9 MG/DL (0.55-1.30); POTASSIUM 4.1 MMOL/L (3.5-5.1); SODIUM 149 MMOL/L (136-145)
[2018-12-07 06:51] LABS: PHOSPHORUS 3.8 MG/DL (2.5-4.9)
--- NOTE | 2018-12-07 07:36 | Pulmonology Progress Note ---
Assessment/Plan Problems: (1) Suprapubic catheter dysfunction (2) History of DVT (deep vein thrombosis) (3) Suprapubic catheter (4) Obstructive hydrocephalus (5) COPD (chronic obstructive pulmonary disease) (6) Diabetes mellitus (7) Aphasia (8) Feeding by G-tube (9) History of CVA (cerebrovascular accident) Assessment/Plan urology evaluation continue feeding symptomatic treatment Subjective ROS Limited/Unobtainable: No Constitutional: Reports: no symptoms HEENT: Repors: no symptoms Respiratory: Reports: no symptoms Cardiovascular: Reports: no symptoms Allergies: Coded Allergies: VANCOMYCIN (Verified Allergy, Mild, Redness , 10/29/18) CIPROFLOXACIN (Verified Allergy, Unknown, 08/23/15) Objective Last 24 Hour Vital Signs Date Time Temp Pulse Resp B/P (MAP) Pulse Ox O2 Delivery O2 Flow Rate FiO2 12/07/18 04:00 97.5 83 20 109/80 (90) 94 12/07/18 04:00 81 12/07/18 00:00 80 12/07/18 00:00 98.1 84 18 109/78 (88) 99 12/06/18 21:11 91 141/62 12/06/18 21:00 Room Air 12/06/18 20:00 78 12/06/18 20:00 97.5 91 18 141/62 (88) 96 12/06/18 17:46 Room Air 12/06/18 16:10 98.2 85 13 132/88 97 Room Air 12/06/18 15:00 98.2 85 13 132/88 97 Room Air 12/06/18 13:00 95 13 134/89 97 12/06/18 12:30 98.2 98 18 118/84 98 Room Air 12/06/18 12:19 98.2 98 18 118/84 (95) 98 Room Air Intake and Output 12/06/18 12/07/18 19:00 07:00 Intake Total 1500 ml Output Total 400 ml Balance 1500 ml -400 ml Intake IV Total 1500 ml Output Urine Total 400 ml # Bowel Movements 1 1 General Appearance: WD/WN HEENT: normocephalic, atraumatic Respiratory/Chest: chest wall non-tender, lungs clear Cardiovascular: normal peripheral pulses, normal rate Abdomen: normal bowel sounds, soft, non tender Genitourinary: normal external genitalia Extremities: no clubbing 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 Microbiology Date/Time Source Procedure Growth Status 12/06/18 14:08 Rectum Received Laboratory Tests 12/06/18 13:17: White Blood Count 10.0, Red Blood Count 4.61L, Hemoglobin 13.3L, Hematocrit 43.3 , Mean Corpuscular Volume 94, Mean Corpuscular Hemoglobin 28.9, Mean Corpuscular Hemoglobin Concent 30.8L, Red Cell Distribution Width 18.9H, Platelet Count 277, Mean Platelet Volume 9.1, Neutrophils (%) (Auto) 50.2, Lymphocytes (%) (Auto) 37.1, Monocytes (%) (Auto) 6.9, Eosinophils (%) (Auto) 4.8H, Basophils (%) (Auto) 1.0, Prothrombin Time 11.0, Prothromb Time International Ratio 1.0, Activated Partial Thromboplast Time 25, Sodium Level 156H, Potassium Level 3.9, Chloride Level 117H, Carbon Dioxide Level 29, Anion Gap 10, Blood Urea Nitrogen 44H, Creatinine 0.9, Estimat Glomerular Filtration Rate > 60, Glucose Level 114H, Lactic Acid Level 1.00, Calcium Level 9.8, Total Bilirubin 0.4, Aspartate Amino Transf (AST/SGOT) 34, Alanine Aminotransferase ( ALT/SGPT) 61, Alkaline Phosphatase 61, Pro-B-Type Natriuretic Peptide 49, Total Protein 9.4H, Albumin 3.2L, Globulin 6.2, Albumin/Globulin Ratio 0.5L 12/06/18 15:00: Urine Color Yesi, Urine Appearance Cloudy, Urine pH 7, Urine Specific [place] 1.010, Urine Protein 2+H, Urine Glucose (UA) Negative, Urine Ketones Negative, Urine Blood 3+H, Urine Nitrite PositiveH, Urine Bilirubin Negative, Urine Ictotest Negative, Urine Urobilinogen Normal, Urine Leukocyte Esterase 3+H, Urine RBC 10-15H, Urine WBC TntcH, Urine Squamous Epithelial Cells Occasional, Urine Bacteria ManyH 12/07/18 04:54: White Blood Count 8.9, Red Blood Count 4.59L, Hemoglobin 13.5L, Hematocrit 43.4 , Mean Corpuscular Volume 95, Mean Corpuscular Hemoglobin 29.3, Mean Corpuscular Hemoglobin Concent 31.0L, Red Cell Distribution Width 18.2H, Platelet Count 224, Mean Platelet Volume 8.4, Neutrophils (%) (Auto) 41.8L, Lymphocytes (%) (Auto) 45.4H, Monocytes (%) (Auto) 5.1, Eosinophils (%) (Auto) 6.1H, Basophils (%) (Auto) 1.7, Sodium Level 149H, Potassium Level 4.1, Chloride Level 114H, Carbon Dioxide Level 29, Anion Gap 6, Blood Urea Nitrogen 40H, Creatinine 0.9, Estimat Glomerular Filtration Rate > 60, Glucose Level 132H , Calcium Level 9.3, Total Bilirubin 0.5, Aspartate Amino Transf (AST/SGOT) 37, Alanine Aminotransferase (ALT/SGPT) 56, Alkaline Phosphatase 62, Pro-B-Type Natriuretic Peptide 48, Total Protein 9.0H, Albumin 3.0L, Globulin 6.0, Albumin/ Globulin Ratio 0.5L, Uric Acid 6.1, Phosphorus Level 3.8, Magnesium Level 2.3, C -Reactive Protein, Quantitative < 0.4, Thyroid Stimulating Hormone (TSH) 1.327 Current Medications Medications (Trade) Dose Ordered Sig/Fab Route PRN Reason Start Time Stop Time Status Last Admin Dose Admin Carvedilol (Coreg) 6.25 mg EVERY 12 HOURS GT 12/06/18 21:00 01/05/19 20:59 12/06/18 21:11 Dextrose 1,000 ml @ 75 mls/hr [id number] IV 12/06/18 20:52 01/05/19 20:51 12/06/18 21:12 Dextrose (Dextrose 50%) 25 ml Q30M PRN IV Hypoglycemia 12/06/18 13:45 01/05/19 13:44 Dextrose (Dextrose 50%) 50 ml Q30MIN PRN IV Hypoglycemia 12/06/18 13:45 01/05/19 13:44 Heparin Sodium (Porcine) (Heparin 5000 units/ml) 5,000 units EVERY 12 HOURS SUBQ 12/06/18 21:00 01/05/19 20:59 12/06/18 21:13 Lorazepam (Ativan 2mg/ml 1ml) 0.5 mg Q4H PRN IV For Anxiety 12/06/18 13:45 12/13/18 13:44 Morphine Sulfate (Morphine Sulfate) 1 mg Q4H PRN IVP For Pain 12/06/18 13:45 12/13/18 13:44 Ondansetron HCl (Zofran) 4 mg Q6H PRN IVP Nausea & Vomiting 12/06/18 13:45 01/05/19 13:44 Rigoberto Bryant MD Dec 07, 2018 07:36
--- NOTE | 2018-12-07 07:50 | NUR ---
HAND-OFF: Report given to poonam Pulido. pT STABLE.
--- NOTE | 2018-12-07 07:50 | NUR ---
NURSE NOTES: Received report from Airam/RN, Patient is asleep, lying semi-burns's, resting comfortably. On room air, No acute distress/, SOB noted. IV site patent, no bleeding or infiltration noted. Patient on tube feeding.G-Tube, intact, Jevity running at 30cc. Patient has suprapubic cath, draining well to gravity. On cardiac monitor technician, reading SR. Bed in low position and locked. Call light within reach. Side rails up x3, and locked. Will continue plan of care.
[2018-12-07 08:00] VITALS: BP 115/48
[2018-12-07] MEDS: Carvedilol 6.25mg Tab GT SCH ×2 (09:11→21:29)
[2018-12-07] MEDS: Heparin 5000 units/ml inj SUBQ SCH ×2 (09:12→21:28)
[2018-12-07] MEDS ORDERED: Sterile Water Irrig 1000ml IRRIG ONE (09:14)
--- NOTE | 2018-12-07 10:15 | Consultation ---
Consult Note Consult Note asked to eval at the request of Dr Bear Known to me from his previous admissions 58-year-old male presents ED for evaluation. [facility] Per nursing staff patient noted to have clogged nephrostomy tube on the right side. The flush x1 day. Patient nonverbal at time. No signs of distress upon arrival. No reported fevers or chills. No other aggravating relieving factors. No other associated symptoms Allergies: VANCOMYCIN (Verified Allergy, Mild, Redness , 10/29/18) CIPROFLOXACIN (Verified Allergy, Unknown, 08/23/15) Past Medical History: DM, COPD, other - encephalopathy Past Medical History: No History, Except For Hx Cardiac Problems: Yes - tachycardia, DVT Hx COPD: Yes Hx Diabetes: Yes - type 2 Hx Gastrointestinal Problems: Yes - Dysphagia Hx Neurological Problems: Yes - Encephalopathy Hx Cerebrovascular Accident: Yes Hx Transient Ischemic Attacks: Yes Hx Seizures: Yes - CRF Hx Paralysis: Yes - paraplegic Hx Speech Problem: Yes Hx Aphasia: Yes examined data reviewed . Assessment/Plan 1) Dehydration (2) HyperNatremia (3) Suprapubic catheter (4) History of CVA (cerebrovascular accident) previous Acute renal failure- resolved previous Sepsis CVA Suprapubic cath / ? Neurogenic bladder HTN DVT UTI K , mag , phos as needed [id number] midodrine prn avoid nephrotoxics monitor renal parameters per consultants Pranav Grady MD Dec 07, 2018 10:15
[2018-12-07 12:00] VITALS: BP 107/75
--- NOTE | 2018-12-07 13:11 | Consultation ---
Consult Note Consult Note HPI 58 y/o M with hx of CVA/TIA, Dm2, CKD, suprapubic catheter, DVT, hypertensive heart disease, [place] resident presented to ED for non functioning nephrostomy tube . pt had a recent admission to this medical center for Sepsis and bacteremia. ID cons was requested for possible need for AB Rx and UTI Allergies: Coded Allergies: CIPROFLOXACIN and Vanco Patient History Pmhx: as above Shx: reviewed Fhx: non contributory Meds : on Rocephin Review of Systems All Other Systems: negative except mentioned in HPI Physical Exam Physical Exam Narrative General Appearance: WD/WN, no apparent distress Lines, tubes and drains: peripheral, central line, gtube HEENT: normocephalic, atraumatic, anicteric Neck: non-tender, normal alignment Respiratory/Chest: chest wall non-tender, lungs clear Cardiovascular/Chest: normal peripheral pulses, normal rate Abdomen: normal bowel sounds, PEG + : Rt Nephrostomy +( empty bag) , Suprapubic Cath Extremities: contracted Assessment/Plan Assessment: Afebrile nl WBC No evid of infection at this time but pt is high risk for development of UTI, bacteremia and Sepsis due to Non functional R Nephrostomy -11/08 SP R nephrostomy --findings: small amount slightly purulent urine sent for C and S. Intraprocedural images demonstrate dilated right renal collecting system. Multiple filling defects are compatible with a calculi demonstrated on recent CT scan Hx of recent Septic shock- SP -MRSA/ P Mirabilis, E. fecalis bacteremia- m/l source UTI from obstructive stone Hx of recent UTI ucx >100k P. mirabilis (Previously reporte as onlyS Genta, Ertapenem, Zosyn; now hs been updated to R Nitrofurantoin and otherwise S) Hx of recent Pneum -sp cx PsA (neri S), MRSA TCP , SP CVA/TIA Dm2 CKD suprapubic catheter DVT hypertensive heart disease NH resident Plan: pt is high risk for development of bacteremia and Sepsis, will monitor pt off of AB Rx - 11/19 SP Zyvox and Cefepime -11/02 SP Meropenem #4 -11/01 Sp Amikacin #4 , IV Vancomycin #3 -10/29 SP Ertapenem #1, IV Vancomycin x1 -f/u cx ( Bl ,Ur ) -Monitor CBC/CMP, temperatures -aspiration precautions -Uro, f/u - CT of Abd Thank you for the consult , we will follow Peterson Cabrera MD Dec 07, 2018 13:11
--- NOTE | 2018-12-07 15:00 | NUR ---
NURSE NOTES: Patient is asleep, No acute distress/SOB noted, Lying semi-burns, resting comfortably. Will continue to monitor.
[2018-12-07 16:00] VITALS: BP 123/61
--- NOTE | 2018-12-07 18:45 | History and Physical Report ---
DATE OF ADMISSION: 12/06/2018 CONSULTANTS: 1. Will Funk M.D. 2. Rigoberto Bryant M.D. 3. Pranav Grady M.D. 4. Scott Adrian M.D. CHIEF COMPLAINT: Clogged nephrostomy tube. BRIEF HISTORY: This is a 58-year-old male, who lives at [facility], presented with the above-mentioned diagnosis, currently sleeping in bed, not responding to questions. PAST MEDICAL HISTORY: Anemia, obstructive uropathy, COPD, hydrocephalus, aphasia, diabetes, CVA, encephalopathy, and DVT. PAST SURGICAL HISTORY: Nephrostomy tube and G-tube. MEDICATIONS: Include carvedilol, dextrose, lorazepam, Zofran, and morphine. ALLERGY: Vancomycin and Cipro. SOCIAL HISTORY: Unable to obtain secondary to the patient's condition. REVIEW OF SYSTEMS: Unavailable. PHYSICAL EXAMINATION: GENERAL: Sleeping in bed, not responding to questions. VITAL SIGNS: Show temperature is 97 degrees, pulse 83, respirations 20, and blood pressure 109/80. CARDIOVASCULAR: No murmurs. LUNGS: Distant and clear. ABDOMEN: Bowel sounds positive. Nontender. Nondistended. EXTREMITIES: No cyanosis. No edema. NEUROLOGIC: The patient is flaccid in bed, not following directions. LABORATORY AND DIAGNOSTIC DATA: Labs, at this time, show hemoglobin and hematocrit is 13 and 43, otherwise CBC is normal. BMP shows sodium 149, chloride 119, BUN 40, and glucose 132. Albumin 3.0. INR 1.0. PTT is 25. Urinalysis shows 3+ leukocyte esterase. ASSESSMENT: 1. UTI. 2. Clogged nephrostomy tube. 3. Hypernatremia. 4. Malnutrition. 5. Anemia. 6. Uropathy. 7. COPD. 8. Hydrocephalus. 9. Aphasia. 10. Diabetes. 11. CVA. 12. Encephalopathy. 13. DVT. PLAN: 1. Antibiotics per Infectious Disease. 2. Nephrology followup. 3. Urology followup. 4. Dietary followup. 5. Blood pressure and blood sugar control. 6. We will continue to follow this patient. Jaylen Bear D.O. DR: CARMEN JOB#: [id number] CC:
[2018-12-07] MEDS ORDERED: DOCUSATE SODIU250 MG GT (19:21)
--- NOTE | 2018-12-07 19:24 | NUR ---
HAND-OFF: Report given to Airam/RN, Patient is asleep, in stab;e condition. Endorsed plan of care.
[2018-12-07 20:00] VITALS: BP 122/81
--- NOTE | 2018-12-07 20:10 | NUR ---
NURSE NOTES: Received pt from CANDI Garrison. Pt asleep. Bed in lowest position at 30 degrees. IV site intact and running fluids. GTube intact and running feeding. Call light within reach. Will continue to monitor.
[2018-12-07] MEDS ORDERED: Sennosides 8.6mg tab GT SCH (21:00)
--- NOTE | 2018-12-08 03:15 | Consultation ---
DATE OF CONSULTATION: 12/07/2018 PSYCHOTHERAPY CONSULTATION PROGRESS NOTE CONSULTING PHYSICIAN: Dez Pablo PsyD. TREATING ATTENDING PHYSICIAN: Jaylen Bear D.O. HISTORY OF PRESENT ILLNESS: This patient is a 58-year-old male patient. This patient is from [facility]. He was brought to the hospital for obstructed nephrostomy tube. The patient has been confused, disorganized thoughts, and helpless and for these reasons, referred to psychotherapeutic services. I assessed this patient. The patient is a very poor historian and unable to provide any logical or viable information. He is from [facility]. The patient at this time is very confused and disorganized. There is no indication of auditory or visual hallucinations. There is no indication of suicidal or homicidal thoughts of ideation. PAST MEDICAL HISTORY: The patient has a history of G-tube and nephrostomy. ALLERGIES: The patient is allergic to Cipro and vancomycin. SUBSTANCE ABUSE HISTORY: There is no indication of alcohol use, illicit substance use, or smoking cigarettes. PSYCHIATRIC HISTORY: No indication of mental illness secondary to the patient's condition. SOCIAL HISTORY: The patient is a 58-year-old single male patient from [facility]. Financially sustained through [employer]. MENTAL STATUS EXAMINATION: Alert and oriented to person. Mood is dysphoric. Affect blunted. Thought process, disorganized. Thought content, confused. The patient has poor attention and concentration. Poor insight, judgement, and impulse control. TODAY, I ASSESSED THE PATIENT AND PROVIDED THE PATIENT WITH: 1. Reality orientation with a focus on improving cognitive function of the patient, who is very confused and disorganized. Oriented to person, place, time, and situation. 2. Provided the patient with supportive psychotherapy, which would provide the patient means to be able to respond or verbalize the patient's moods and thoughts. However, the patient remains a very poor historian. Unable to care for his basic needs and requires continued hospitalization for effective stabilization. PLAN: Plan is to maintain medication compliance, assist with positive coping skills, and stabilizing thoughts and behavior. Psychotherapy provided to this patient, 45 minutes. This clinician has reviewed the patient's chart and discussed the treatment with treatment team. DIAGNOSIS: Rule out major depressive disorder, recurrent, moderate without psychotic features. Dez Pablo PsyD. DR: TANISHA JOB#: [id number] CC:
[2018-12-08 04:00] VITALS: BP 124/91
--- NOTE | 2018-12-08 07:24 | NUR ---
NURSE NOTES: Report received from Airam CHRISTOPHER. Patient alert and orientedx1 and able to follow the simple direction. Bed in lowest position and locked. No c/o pain. No acute distress noted. HOB elevated. Abdomen CT pending. IV site in RFA 20G intact and asymptomatic running with D5 @75ml/hr. Noted supra-pubic cath with yellow color urine draining in the bag. On MRSA nares contact isolation. Will continue to plan care.
--- NOTE | 2018-12-08 07:24 | NUR ---
HAND-OFF: Report given to CANDI Posada. Pt stable.
[2018-12-08 08:00] VITALS: BP 104/74
[2018-12-08] MEDS: Carvedilol 6.25mg Tab GT SCH ×2 (08:32→20:41)
--- NOTE | 2018-12-08 08:58 | General Progress Note ---
Assessment/Plan Problem List: (1) Malfunction of nephrostomy tube ICD Codes: T83.098A - Other mechanical complication of other urinary catheter, initial encounter SNOMED: 221260090 (2) UTI (urinary tract infection) ICD Codes: N39.0 - Urinary tract infection, site not specified SNOMED: 55029794 (3) Hypernatremia ICD Codes: E87.0 - Hyperosmolality and hypernatremia SNOMED: 850028300 (4) Obstructive uropathy ICD Codes: N13.9 - Obstructive and reflux uropathy, unspecified SNOMED: 0045602 (5) Anemia ICD Codes: D64.9 - Anemia, unspecified SNOMED: 971820658 (6) COPD (chronic obstructive pulmonary disease) ICD Codes: J44.9 - Chronic obstructive pulmonary disease, unspecified SNOMED: 62461324 (7) Diabetes mellitus ICD Codes: E11.9 - Type 2 diabetes mellitus without complications SNOMED: 09247003 (8) History of CVA (cerebrovascular accident) ICD Codes: Z86.73 - Personal history of transient ischemic attack (TIA), and cerebral infarction without residual deficits SNOMED: 435806358 (9) History of DVT (deep vein thrombosis) ICD Codes: Z86.718 - Personal history of other venous thrombosis and embolism SNOMED: 834523195 Status: stable, progressing Assessment/Plan: ot pt diet abx neph uro f/u cbc bmp am Subjective Constitutional: Reports: weakness Allergies: Coded Allergies: VANCOMYCIN (Verified Allergy, Mild, Redness , 10/29/18) CIPROFLOXACIN (Verified Allergy, Unknown, 08/23/15) All Systems: reviewed and negative except above Subjective calm in bed Objective Last 24 Hour Vital Signs Date Time Temp Pulse Resp B/P (MAP) Pulse Ox O2 Delivery O2 Flow Rate FiO2 12/08/18 08:32 85 104/74 12/08/18 08:00 98.2 85 20 104/74 (84) 98 12/08/18 04:00 124/91 (102) 12/08/18 04:00 83 12/08/18 00:00 89 12/07/18 21:29 82 122/81 12/07/18 21:00 Room Air 12/07/18 20:00 83 12/07/18 20:00 97.5 82 20 122/81 (95) 99 12/07/18 16:00 97.7 73 18 123/61 (81) 97 12/07/18 16:00 86 12/07/18 12:00 81 12/07/18 12:00 97.9 76 20 107/75 (86) 98 12/07/18 09:11 93 115/48 12/07/18 09:00 Room Air Intake and Output 12/07/18 12/08/18 19:00 07:00 Intake Total 130 ml 105 ml Output Total 301 ml 450 ml Balance -171 ml -345 ml Intake Free Water 100 ml IV Total 75 ml Tube Feeding 30 ml 30 ml Output Urine Total 300 ml 450 ml Stool Total 1 ml Height (Feet): 5 Height (Inches): 11.00 Weight (Pounds): 205 General Appearance: lethargic, confused EENT: normal ENT inspection Neck: normal alignment Cardiovascular: normal peripheral pulses, normal rate, regular rhythm Respiratory/Chest: chest wall non-tender, lungs clear, normal breath sounds Abdomen: normal bowel sounds, non tender, soft Extremities: normal inspection Edema: no edema noted Arm (L), no edema noted Arm (R), no edema noted Leg (L), no edema noted Leg (R), no edema noted Pedal (L), no edema noted Pedal (R), no edema noted Generalized Neurologic: motor weakness Skin: normal pigmentation, warm/dry Jaylen Bear DO Dec 08, 2018 08:58
[2018-12-08] MEDS: Heparin 5000 units/ml inj SUBQ SCH ×2 (09:22→20:43)
--- NOTE | 2018-12-08 09:40 | NUR ---
NURSE NOTES: Pt went to CT scan.
--- NOTE | 2018-12-08 09:50 | NUR ---
NURSE NOTES: Pt returned from CT scan
--- NOTE | 2018-12-08 10:12 | Diagnostic Imaging Report ---
EXAM: CT Abdomen Without Intravenous Contrast CLINICAL HISTORY: ABN LABS TECHNIQUE: Axial computed tomography images of the abdomen without intravenous contrast. Sagittal and coronal reformatted images were created and reviewed. CTDI is 18.84 mGy and DLP is 1195 mGy-cm. One or more of the following dose reduction techniques were used: automated exposure control, adjustment of the mA and/or kV according to patient size, use of iterative reconstruction technique. COMPARISON: CT abdomen and pelvis dated 11/03/18 FINDINGS: Lung bases: Unremarkable. No mass. No consolidation. Liver: Scattered hepatic hypodensities likely representing cysts, largest measuring 2.3 x 1.8 cm cyst in the posterior right hepatic lobe. Gallbladder and bile ducts: Unremarkable. No calcified stones. No ductal dilation. Pancreas: Unremarkable. No ductal dilation. Spleen: Unremarkable. No splenomegaly. Adrenals: Unremarkable. No mass. Kidneys and ureters: Percutaneous nephrostomy tube with the tip coiled in the right renal pelvis. No hydronephrosis or hydroureter. Benign- appearing left renal cysts, largest including a 3.6 cm simple-appearing hypodense cyst in the left mid kidney, and a 1.3 cm hyperdense cyst, likely hemorrhagic cyst, in the left lower pole. Stomach and bowel: Moderate to large volume stool in the rectosigmoid region, which may suggest mild impaction or constipation. No significant fecal retention in the remainder of the colon. Remainder of the colon appears unremarkable. No abnormally distended loops of small bowel. GE junction and stomach appear unremarkable. No mucosal thickening. Intraperitoneal space: Unremarkable. No free air. No significant fluid collection. Bones/joints: No acute fracture. No dislocation. Soft tissues: Unremarkable. Vasculature: Unremarkable. No abdominal aortic aneurysm. Lymph nodes: Unremarkable. No enlarged lymph nodes. Tubes, lines and devices: Percutaneous cystostomy catheter, with expected positioning. Percutaneous gastrostomy tube in place, with expected positioning. IMPRESSION: 1. Interval resolution of the diffuse small bowel distention. No evidence of small bowel obstruction and this exam. 2. Moderate to large volume stool in the rectosigmoid region, which may suggest impaction or constipation. No significant fecal retention in the proximal colon. 3. Percutaneous nephrostomy tube with the tip coiled in the right renal pelvis. No hydronephrosis or hydroureter. 4. Percutaneous cystostomy catheter, with expected positioning. 5. Percutaneous gastrostomy tube in place, with expected positioning. 6. Unchanged appearance of scattered hepatic and left renal cysts.
--- NOTE | 2018-12-08 11:00 | NUR ---
PT Note Attempted to see patient for PT eval. Patient withdraws his extremities when attempted muscle/ROM testing, saying "No!" repeatedly. Will attempt again later if time permits.
[2018-12-08 11:45] LABS: BASOPHILS % (AUTO) 1.5 % (0.0-2.0); EOSINOPHILS % (AUTO) 5.5 % (0.0-3.0); HEMATOCRIT 41.2 % (42.0-52.0); HEMOGLOBIN 13.1 G/DL (14.2-18.0); LYMPHOCYTES % (AUTO) 32.6 % (20.0-45.0); MEAN CORPUSCULAR VOLUME 93 FL (80-99); MONOCYTES % (AUTO) 8.7 % (1.0-10.0); NEUTROPHILS % (AUTO) 51.7 % (45.0-75.0); PLATELET COUNT 232 K/UL (150-450); RED BLOOD COUNT 4.43 M/UL (4.70-6.10); RED CELL DISTRIBUTION WIDTH 18.2 % (11.6-14.8); WHITE BLOOD COUNT 9.3 K/UL (4.8-10.8)
[2018-12-08 11:57] LABS: ALANINE AMINOTRANSFERASE 43 U/L (12-78); BLOOD UREA NITROGEN 26 mg/dL (7-18); CALCIUM 8.6 MG/DL (8.5-10.1); CHLORIDE 109 MMOL/L (98-107); SODIUM 144 MMOL/L (136-145)
[2018-12-08 12:00] VITALS: BP 120/90
--- NOTE | 2018-12-08 12:14 | NUR ---
RD ASSESSMENT & RECOMMENDATIONS SEE CARE ACTIVITY FOR COMPLETE ASSESSMENT DAILY ESTIMATED NEEDS: Needs based on Sepsis/ 76.7kg abw 25-30 kcals/kg 2364-3278 total kcals 1-2 g protein/kg 77-153 g total protein 25-30 mL/kg 5567-0464 total fluid mLs NUTRITION DIAGNOSIS: 1) Swallowing difficulty related to dysphagia s/p cva as evidenced by pt dependent on PEG for all nutrition and hydration needs. CURRENT TF: Jevity 1.2 @30ml ENTERAL NUTRITION RECOMMENDATIONS --->>> Glucerna 1.5 @ 55ml/hr x 24 hrs to provide 1320ml, 1980kcal, 109g prot, 1002ml free water * Rec TF change to Glucerna 1.5. * Start @35ml/hr for 6 hrs, advance as tolerated 10ml/hr q4-6 hrs to goal. * HOB over 30 degrees/ water flush per MD. ----- ADDITIONAL RECOMMENDATIONS: 1) Calibrated bedscale wt for accurate CBW 2) Monitor lytes, replete as needed 3) Consider NISS/ accuchecks w/ TF for BG control- h/o DM 4) Rec wound eval / coccyx wound F/up w/ wound eval
[2018-12-08 12:33] LABS: ALBUMIN 2.8 G/DL (3.4-5.0); ALBUMIN/GLOBULIN RATIO 0.5 (1.0-2.7); ALKALINE PHOSPHATASE 60 U/L (46-116); ANION GAP 13 mmol/L (5-15); ASPARTATE AMINO TRANSFERASE 29 U/L (15-37); BILIRUBIN,TOTAL 0.5 MG/DL (0.2-1.0); CARBON DIOXIDE 22 MMOL/L (21-32); CREATININE 0.8 MG/DL (0.55-1.30); POTASSIUM 3.6 MMOL/L (3.5-5.1)
[2018-12-08 13:13] LABS: PHOSPHORUS 2.9 MG/DL (2.5-4.9)
[2018-12-08 16:00] VITALS: BP 100/65
--- NOTE | 2018-12-08 16:47 | Nephrology Progress Note ---
Assessment/Plan Problem List: (1) Hypernatremia Assessment: dehydration (2) Gastrostomy tube dependent (3) Obstructive uropathy (4) Suprapubic catheter (5) History of CVA (cerebrovascular accident) Assessment: aphasia Assessment 1) Dehydration (2) HyperNatremia (3) Suprapubic catheter (4) History of CVA (cerebrovascular accident) previous Acute renal failure- resolved previous Sepsis CVA Suprapubic cath / ? Neurogenic bladder HTN DVT UTI Plan K , mag , phos as needed stop [id number]- dehydration improved midodrine prn avoid nephrotoxics monitor renal parameters per consultants Subjective ROS Limited/Unobtainable: No Constitutional: Reports: malaise, weakness Objective Objective Last 24 Hour Vital Signs Date Time Temp Pulse Resp B/P (MAP) Pulse Ox O2 Delivery O2 Flow Rate FiO2 12/08/18 12:00 85 12/08/18 12:00 97.4 70 20 120/90 (100) 100 12/08/18 09:00 Room Air 12/08/18 08:32 85 104/74 12/08/18 08:00 98.2 85 20 104/74 (84) 98 12/08/18 08:00 80 12/08/18 04:00 124/91 (102) 12/08/18 04:00 83 12/08/18 00:00 89 12/07/18 21:29 82 122/81 12/07/18 21:00 Room Air 12/07/18 20:00 83 12/07/18 20:00 97.5 82 20 122/81 (95) 99 Intake and Output 12/07/18 12/08/18 18:59 06:59 Intake Total 130 ml Output Total 301 ml 450 ml Balance -171 ml -450 ml Intake Free Water 100 ml Tube Feeding 30 ml Output Urine Total 300 ml 450 ml Stool Total 1 ml Laboratory Tests 12/08/18 11:11: White Blood Count 9.3, Red Blood Count 4.43L, Hemoglobin 13.1L, Hematocrit 41.2L , Mean Corpuscular Volume 93, Mean Corpuscular Hemoglobin 29.6, Mean Corpuscular Hemoglobin Concent 31.8L, Red Cell Distribution Width 18.2H, Platelet Count 232, Mean Platelet Volume 9.3, Neutrophils (%) (Auto) 51.7, Lymphocytes (%) (Auto) 32.6, Monocytes (%) (Auto) 8.7, Eosinophils (%) (Auto) 5.5H, Basophils (%) (Auto) 1.5, Sodium Level 144, Potassium Level 3.6, Chloride Level 109H, Carbon Dioxide Level 22, Anion Gap 13, Blood Urea Nitrogen 26H, Creatinine 0.8, Estimat Glomerular Filtration Rate > 60, Glucose Level 122H, Hemoglobin A1c 5.2, Uric Acid 6.0, Calcium Level 8.6, Phosphorus Level 2.9, Magnesium Level 2.2, Total Bilirubin 0.5, Gamma Glutamyl Transpeptidase 14, Aspartate Amino Transf (AST/SGOT) 29, Alanine Aminotransferase (ALT/SGPT) 43, Alkaline Phosphatase 60, C-Reactive Protein, Quantitative 1.1H, Pro-B-Type Natriuretic Peptide 60, Total Protein 8.1, Albumin 2.8L, Globulin 5.3, Albumin/ Globulin Ratio 0.5L, Vitamin B12 Level 1793H, Folate 29.0 Height (Feet): 5 Height (Inches): 11.00 Weight (Pounds): 205 General Appearance: no apparent distress Cardiovascular: normal rate Respiratory/Chest: decreased breath sounds Abdomen: distended Pranav Grady MD Dec 08, 2018 16:47
[2018-12-08] MEDS ORDERED: Morphine Sulfate 2mg/ml Inj(IV/IM USE ONLY) IVP PRN (17:45)
[2018-12-08] MEDS ORDERED: LORazepam Inj 2mg/ml 1ml IV PRN (17:45)
[2018-12-08] MEDS ORDERED: Nystatin Powder 100,000 units/gm 15gm TOPIC SCH (18:00)
--- NOTE | 2018-12-08 18:00 | NUR ---
HAND-OFF: Report given to Niya CHRISTOPHER. Pt remains stable.
[2018-12-08 18:10] VITALS: BP 116/69
--- NOTE | 2018-12-08 18:15 | NUR ---
NURSE NOTES: Received patient from [facility] from tele. Patient is awake, follows directions, patient verbally responsive but with one or two words only with slurred speech. No belongings except heel protectors from group home. GT intact, dressing is dry. Patient noted with supra pubic cath is draining well but right nephrostomy is not draining. IV intact, no s/s of infiltration. HOB elevated for aspiration precaution. Patient noted to have pressure sore on right buttock and sacrum and irritation on GT stoma site. Call light within reach. Will continue plan of care.
--- NOTE | 2018-12-08 18:35 | NUR ---
NURSE NOTES: Dr. Funk paged for abd CT result and left a voice message
--- NOTE | 2018-12-08 19:36 | NUR ---
HAND-OFF: Report given to
[2018-12-08 20:00] VITALS: BP 138/84
--- NOTE | 2018-12-08 20:03 | NUR ---
NURSE NOTES: patient in bed, awake, confused. Bed in low and locked position. Provided safe environment. Kept clean and comfortable. Noted with gtube, feeding is infusing. Nephrostomy noted, Kenny catheter noted. Skin is warm, dressings noted. IV site noted. Call light is at bedside. Will continue plan of care.
[2018-12-08] MEDS: Sennosides 8.6mg tab GT SCH (20:41)
--- NOTE | 2018-12-08 23:26 | Pulmonology Progress Note ---
Assessment/Plan Problems: (1) Suprapubic catheter dysfunction (2) History of DVT (deep vein thrombosis) (3) Suprapubic catheter (4) Obstructive hydrocephalus (5) COPD (chronic obstructive pulmonary disease) (6) Diabetes mellitus (7) Aphasia (8) Feeding by G-tube (9) History of CVA (cerebrovascular accident) Assessment/Plan still waiting urology evaluation continue feeding symptomatic treatment symptomatic treatment Subjective ROS Limited/Unobtainable: No HEENT: Repors: no symptoms Respiratory: Reports: no symptoms Allergies: Coded Allergies: VANCOMYCIN (Verified Allergy, Mild, Redness , 10/29/18) CIPROFLOXACIN (Verified Allergy, Unknown, 08/23/15) Objective Last 24 Hour Vital Signs Date Time Temp Pulse Resp B/P (MAP) Pulse Ox O2 Delivery O2 Flow Rate FiO2 12/08/18 21:00 Room Air 12/08/18 20:41 82 136/84 12/08/18 20:00 98.1 82 19 138/84 (102) 96 12/08/18 18:10 97.9 93 20 116/69 (85) 96 12/08/18 16:00 98.8 80 20 100/65 (77) 98 12/08/18 12:00 85 12/08/18 12:00 97.4 70 20 120/90 (100) 100 12/08/18 09:00 Room Air 12/08/18 08:32 85 104/74 12/08/18 08:00 98.2 85 20 104/74 (84) 98 12/08/18 08:00 80 12/08/18 04:00 124/91 (102) 12/08/18 04:00 83 12/08/18 00:00 89 Intake and Output 12/07/18 12/08/18 19:00 07:00 Intake Total 130 ml 105 ml Output Total 301 ml 450 ml Balance -171 ml -345 ml Intake Free Water 100 ml IV Total 75 ml Tube Feeding 30 ml 30 ml Output Urine Total 300 ml 450 ml Stool Total 1 ml General Appearance: WD/WN HEENT: normocephalic, atraumatic Respiratory/Chest: chest wall non-tender, lungs clear Cardiovascular: normal peripheral pulses, normal rate Abdomen: normal bowel sounds, soft, non tender Genitourinary: normal external genitalia Skin: no rash Microbiology Date/Time Source Procedure Growth Status 12/06/18 13:22 Blood Blood Culture - Preliminary NO GROWTH AFTER 24 HOURS Resulted 12/06/18 13:17 Blood Blood Culture - Preliminary NO GROWTH AFTER 24 HOURS Resulted 12/06/18 14:08 Nasal Nares MRSA Culture - Final Staphylococcus Aureus - Mrsa Complete 12/06/18 15:00 Urine,Clean Catch Urine Culture - Final Providencia Stuartii Complete 12/06/18 14:08 Rectum Received Laboratory Tests 12/08/18 11:11: White Blood Count 9.3, Red Blood Count 4.43L, Hemoglobin 13.1L, Hematocrit 41.2L , Mean Corpuscular Volume 93, Mean Corpuscular Hemoglobin 29.6, Mean Corpuscular Hemoglobin Concent 31.8L, Red Cell Distribution Width 18.2H, Platelet Count 232, Mean Platelet Volume 9.3, Neutrophils (%) (Auto) 51.7, Lymphocytes (%) (Auto) 32.6, Monocytes (%) (Auto) 8.7, Eosinophils (%) (Auto) 5.5H, Basophils (%) (Auto) 1.5, Sodium Level 144, Potassium Level 3.6, Chloride Level 109H, Carbon Dioxide Level 22, Anion Gap 13, Blood Urea Nitrogen 26H, Creatinine 0.8, Estimat Glomerular Filtration Rate > 60, Glucose Level 122H, Hemoglobin A1c 5.2, Uric Acid 6.0, Calcium Level 8.6, Phosphorus Level 2.9, Magnesium Level 2.2, Total Bilirubin 0.5, Gamma Glutamyl Transpeptidase 14, Aspartate Amino Transf (AST/SGOT) 29, Alanine Aminotransferase (ALT/SGPT) 43, Alkaline Phosphatase 60, C-Reactive Protein, Quantitative 1.1H, Pro-B-Type Natriuretic Peptide 60, Total Protein 8.1, Albumin 2.8L, Globulin 5.3, Albumin/ Globulin Ratio 0.5L, Vitamin B12 Level 1793H, Folate 29.0 Current Medications Medications (Trade) Dose Ordered Sig/Fab Route PRN Reason Start Time Stop Time Status Last Admin Dose Admin Barium Sulfate (Readi-Cat 2) 450 ml NOW PRN ORAL Radiology Procedure 12/08/18 13:15 12/09/18 13:14 Bisacodyl (Dulcolax) 10 mg DAILYPRN PRN RECTAL Constipation 12/08/18 18:00 01/07/19 17:59 Carvedilol (Coreg) 6.25 mg EVERY 12 HOURS GT 12/08/18 21:00 01/05/19 20:59 12/08/18 20:41 Dextrose (Dextrose 50%) 25 ml Q30M PRN IV Hypoglycemia 12/08/18 17:45 01/05/19 13:44 Dextrose (Dextrose 50%) 50 ml Q30M PRN IV Hypoglycemia 12/08/18 18:00 01/07/19 17:59 Heparin Sodium (Porcine) (Heparin 5000 units/ml) 5,000 units EVERY 12 HOURS SUBQ 12/08/18 21:00 01/05/19 20:59 12/08/18 20:43 Lansoprazole (Prevacid) 30 mg BID GT 12/09/18 09:00 01/08/19 08:59 Lorazepam (Ativan 2mg/ml 1ml) 0.5 mg Q4H PRN IV For Anxiety 12/08/18 17:45 12/13/18 13:44 Morphine Sulfate (Morphine Sulfate) 1 mg Q4H PRN IVP For Pain 12/08/18 17:45 12/13/18 13:44 Nystatin (Nystop Powder) 1 applic THREE TIMES A DAY TOPIC 12/09/18 09:00 01/08/19 08:59 Ondansetron HCl (Zofran) 4 mg Q6H PRN IVP Nausea & Vomiting 12/08/18 18:00 01/05/19 17:59 Sennosides (Senokot) 17.2 mg QHS GT 12/08/18 21:00 01/06/19 20:59 12/08/18 20:41 Rigoberto Bryant MD Dec 08, 2018 23:26
[2018-12-09] VITALS: BP 148/71
[2018-12-09 04:00] VITALS: BP 155/77
--- NOTE | 2018-12-09 07:20 | NUR ---
HAND-OFF: Report given to CANDI Longoria.
--- NOTE | 2018-12-09 07:23 | NUR ---
NURSE NOTES: Received pt in bed, sleeping. Room air. No s/s of distress/pain. No IV site, but new IV was put in on R FA 20g. FC noted. G-tube going in @ 55 cc/hr. Nephrostomy noted. Bed in the lowest, locked, and alarm on. Call light within reach. Will continue to monitor
[2018-12-09 07:45] LABS: BASOPHILS % (AUTO) 1.5 % (0.0-2.0); EOSINOPHILS % (AUTO) 7.1 % (0.0-3.0); HEMATOCRIT 36.8 % (42.0-52.0); HEMOGLOBIN 12.4 G/DL (14.2-18.0); LYMPHOCYTES % (AUTO) 34.1 % (20.0-45.0); MEAN CORPUSCULAR VOLUME 88 FL (80-99); MONOCYTES % (AUTO) 10.8 % (1.0-10.0); NEUTROPHILS % (AUTO) 46.6 % (45.0-75.0); PLATELET COUNT 229 K/UL (150-450); RED BLOOD COUNT 4.16 M/UL (4.70-6.10); RED CELL DISTRIBUTION WIDTH 16.6 % (11.6-14.8); WHITE BLOOD COUNT 7.2 K/UL (4.8-10.8)
[2018-12-09 08:10] LABS: ANION GAP 8 mmol/L (5-15); BLOOD UREA NITROGEN 19 mg/dL (7-18); CALCIUM 8.5 MG/DL (8.5-10.1); CARBON DIOXIDE 27 MMOL/L (21-32); CHLORIDE 111 MMOL/L (98-107); CREATININE 0.8 MG/DL (0.55-1.30); POTASSIUM 3.7 MMOL/L (3.5-5.1); SODIUM 146 MMOL/L (136-145)
--- NOTE | 2018-12-09 09:01 | General Progress Note ---
Assessment/Plan Problem List: (1) Malfunction of nephrostomy tube ICD Codes: T83.098A - Other mechanical complication of other urinary catheter, initial encounter SNOMED: 189079209 (2) UTI (urinary tract infection) ICD Codes: N39.0 - Urinary tract infection, site not specified SNOMED: 75723875 (3) Hypernatremia ICD Codes: E87.0 - Hyperosmolality and hypernatremia SNOMED: 248193641 (4) Obstructive uropathy ICD Codes: N13.9 - Obstructive and reflux uropathy, unspecified SNOMED: 6824558 (5) Anemia ICD Codes: D64.9 - Anemia, unspecified SNOMED: 552274416 (6) COPD (chronic obstructive pulmonary disease) ICD Codes: J44.9 - Chronic obstructive pulmonary disease, unspecified SNOMED: 88347918 (7) Diabetes mellitus ICD Codes: E11.9 - Type 2 diabetes mellitus without complications SNOMED: 62703223 (8) History of CVA (cerebrovascular accident) ICD Codes: Z86.73 - Personal history of transient ischemic attack (TIA), and cerebral infarction without residual deficits SNOMED: 494097631 (9) History of DVT (deep vein thrombosis) ICD Codes: Z86.718 - Personal history of other venous thrombosis and embolism SNOMED: 854277362 Status: stable, progressing Assessment/Plan: ot pt diet abx neph uro f/u cbc bmp am brotman aru eval Subjective Constitutional: Reports: weakness Allergies: Coded Allergies: VANCOMYCIN (Verified Allergy, Mild, Redness , 10/29/18) CIPROFLOXACIN (Verified Allergy, Unknown, 08/23/15) All Systems: reviewed and negative except above Subjective calm in bed Objective Last 24 Hour Vital Signs Date Time Temp Pulse Resp B/P (MAP) Pulse Ox O2 Delivery O2 Flow Rate FiO2 12/09/18 04:00 98.0 71 20 155/77 (103) 98 12/09/18 00:00 97.8 86 20 148/71 (96) 98 12/08/18 21:00 Room Air 12/08/18 20:41 82 136/84 12/08/18 20:00 98.1 82 19 138/84 (102) 96 12/08/18 18:10 97.9 93 20 116/69 (85) 96 12/08/18 16:00 98.8 80 20 100/65 (77) 98 12/08/18 12:00 85 12/08/18 12:00 97.4 70 20 120/90 (100) 100 Intake and Output 12/08/18 12/09/18 19:00 07:00 Intake Total 1205 ml 280 ml Output Total 550 ml 800 ml Balance 655 ml -520 ml Intake Free Water 200 ml 100 ml IV Total 675 ml Tube Feeding 330 ml 180 ml Output Urine Total 550 ml 800 ml # Bowel Movements 1 1 Laboratory Tests 12/08/18 11:11: White Blood Count 9.3, Red Blood Count 4.43L, Hemoglobin 13.1L, Hematocrit 41.2L , Mean Corpuscular Volume 93, Mean Corpuscular Hemoglobin 29.6, Mean Corpuscular Hemoglobin Concent 31.8L, Red Cell Distribution Width 18.2H, Platelet Count 232, Mean Platelet Volume 9.3, Neutrophils (%) (Auto) 51.7, Lymphocytes (%) (Auto) 32.6, Monocytes (%) (Auto) 8.7, Eosinophils (%) (Auto) 5.5H, Basophils (%) (Auto) 1.5, Sodium Level 144, Potassium Level 3.6, Chloride Level 109H, Carbon Dioxide Level 22, Anion Gap 13, Blood Urea Nitrogen 26H, Creatinine 0.8, Estimat Glomerular Filtration Rate > 60, Glucose Level 122H, Hemoglobin A1c 5.2, Uric Acid 6.0, Calcium Level 8.6, Phosphorus Level 2.9, Magnesium Level 2.2, Total Bilirubin 0.5, Gamma Glutamyl Transpeptidase 14, Aspartate Amino Transf (AST/SGOT) 29, Alanine Aminotransferase (ALT/SGPT) 43, Alkaline Phosphatase 60, C-Reactive Protein, Quantitative 1.1H, Pro-B-Type Natriuretic Peptide 60, Total Protein 8.1, Albumin 2.8L, Globulin 5.3, Albumin/ Globulin Ratio 0.5L, Vitamin B12 Level 1793H, Folate 29.0 12/09/18 07:00: White Blood Count 7.2, Red Blood Count 4.16L, Hemoglobin 12.4L, Hematocrit 36.8L , Mean Corpuscular Volume 88, Mean Corpuscular Hemoglobin 29.9, Mean Corpuscular Hemoglobin Concent 33.8, Red Cell Distribution Width 16.6H, Platelet Count 229, Mean Platelet Volume 8.7, Neutrophils (%) (Auto) 46.6, Lymphocytes (%) (Auto) 34.1, Monocytes (%) (Auto) 10.8H, Eosinophils (%) (Auto) 7.1H, Basophils (%) (Auto) 1.5, Sodium Level 146H, Potassium Level 3.7, Chloride Level 111H, Carbon Dioxide Level 27, Anion Gap 8, Blood Urea Nitrogen 19H, Creatinine 0.8, Estimat Glomerular Filtration Rate > 60, Glucose Level 104 , Calcium Level 8.5 Height (Feet): 5 Height (Inches): 11.00 Weight (Pounds): 205 General Appearance: lethargic EENT: normal ENT inspection Neck: normal alignment Cardiovascular: normal peripheral pulses, normal rate, regular rhythm Respiratory/Chest: chest wall non-tender, lungs clear, normal breath sounds Abdomen: normal bowel sounds, non tender, soft Extremities: normal inspection Edema: no edema noted Arm (L), no edema noted Arm (R), no edema noted Leg (L), no edema noted Leg (R), no edema noted Pedal (L), no edema noted Pedal (R), no edema noted Generalized Neurologic: motor weakness Skin: normal pigmentation, warm/dry Jaylen Bear DO Dec 09, 2018 09:01
[2018-12-09] MEDS: Carvedilol 6.25mg Tab GT SCH ×2 (09:21→21:00)
[2018-12-09] MEDS: Heparin 5000 units/ml inj SUBQ SCH ×2 (09:23→20:17)
--- NOTE | 2018-12-09 10:13 | Nephrology Progress Note ---
Assessment/Plan Problem List: (1) Hypernatremia Assessment: dehydration (2) Gastrostomy tube dependent (3) Obstructive uropathy (4) Suprapubic catheter (5) History of CVA (cerebrovascular accident) Assessment: aphasia Assessment 1) Dehydration (2) HyperNatremia (3) Suprapubic catheter (4) History of CVA (cerebrovascular accident) previous Acute renal failure- resolved previous Sepsis CVA Suprapubic cath / ? Neurogenic bladder HTN DVT UTI Plan K , mag , phos as needed stop [id number]- dehydration improved midodrine prn avoid nephrotoxics monitor renal parameters per consultants Subjective ROS Limited/Unobtainable: No Objective Objective Last 24 Hour Vital Signs Date Time Temp Pulse Resp B/P (MAP) Pulse Ox O2 Delivery O2 Flow Rate FiO2 12/09/18 09:21 71 155/77 12/09/18 09:00 Room Air 12/09/18 04:00 98.0 71 20 155/77 (103) 98 12/09/18 00:00 97.8 86 20 148/71 (96) 98 12/08/18 21:00 Room Air 12/08/18 20:41 82 136/84 12/08/18 20:00 98.1 82 19 138/84 (102) 96 12/08/18 18:10 97.9 93 20 116/69 (85) 96 12/08/18 16:00 98.8 80 20 100/65 (77) 98 12/08/18 12:00 85 12/08/18 12:00 97.4 70 20 120/90 (100) 100 Intake and Output 12/08/18 12/09/18 19:00 07:00 Intake Total 1205 ml 280 ml Output Total 550 ml 800 ml Balance 655 ml -520 ml Intake Free Water 200 ml 100 ml IV Total 675 ml Tube Feeding 330 ml 180 ml Output Urine Total 550 ml 800 ml # Bowel Movements 1 1 Laboratory Tests 12/08/18 11:11: White Blood Count 9.3, Red Blood Count 4.43L, Hemoglobin 13.1L, Hematocrit 41.2L , Mean Corpuscular Volume 93, Mean Corpuscular Hemoglobin 29.6, Mean Corpuscular Hemoglobin Concent 31.8L, Red Cell Distribution Width 18.2H, Platelet Count 232, Mean Platelet Volume 9.3, Neutrophils (%) (Auto) 51.7, Lymphocytes (%) (Auto) 32.6, Monocytes (%) (Auto) 8.7, Eosinophils (%) (Auto) 5.5H, Basophils (%) (Auto) 1.5, Sodium Level 144, Potassium Level 3.6, Chloride Level 109H, Carbon Dioxide Level 22, Anion Gap 13, Blood Urea Nitrogen 26H, Creatinine 0.8, Estimat Glomerular Filtration Rate > 60, Glucose Level 122H, Hemoglobin A1c 5.2, Uric Acid 6.0, Calcium Level 8.6, Phosphorus Level 2.9, Magnesium Level 2.2, Total Bilirubin 0.5, Gamma Glutamyl Transpeptidase 14, Aspartate Amino Transf (AST/SGOT) 29, Alanine Aminotransferase (ALT/SGPT) 43, Alkaline Phosphatase 60, C-Reactive Protein, Quantitative 1.1H, Pro-B-Type Natriuretic Peptide 60, Total Protein 8.1, Albumin 2.8L, Globulin 5.3, Albumin/ Globulin Ratio 0.5L, Vitamin B12 Level 1793H, Folate 29.0 12/09/18 07:00: White Blood Count 7.2, Red Blood Count 4.16L, Hemoglobin 12.4L, Hematocrit 36.8L , Mean Corpuscular Volume 88, Mean Corpuscular Hemoglobin 29.9, Mean Corpuscular Hemoglobin Concent 33.8, Red Cell Distribution Width 16.6H, Platelet Count 229, Mean Platelet Volume 8.7, Neutrophils (%) (Auto) 46.6, Lymphocytes (%) (Auto) 34.1, Monocytes (%) (Auto) 10.8H, Eosinophils (%) (Auto) 7.1H, Basophils (%) (Auto) 1.5, Sodium Level 146H, Potassium Level 3.7, Chloride Level 111H, Carbon Dioxide Level 27, Anion Gap 8, Blood Urea Nitrogen 19H, Creatinine 0.8, Estimat Glomerular Filtration Rate > 60, Glucose Level 104 , Calcium Level 8.5 Height (Feet): 5 Height (Inches): 11.00 Weight (Pounds): 205 General Appearance: no apparent distress Objective no change Pranav Grady MD Dec 09, 2018 10:13
[2018-12-09] MEDS: Nystatin Powder 100,000 units/gm 15gm TOPIC SCH ×3 (10:38→17:38)
[2018-12-09 12:00] VITALS: BP 113/70
--- NOTE | 2018-12-09 13:43 | Consultation ---
History of Present Illness General Date patient seen: Dec 09, 2018 Chief Complaint: Male Urogenital Problems Present Illness HPI This is a 58-year-old male well-known to me from prior admission who presents with obstructed nephrostomy tube, abnormal labs, worsening condition. Patient during last admission had a potential volvulus which fortunately after work-up was identified to be likely just ileus that resolved. He was also noted to have an obstructive ureteral stone and a nephrostomy tube was placed. Currently nephrostomy tube obstructed and requiring admission care. On this admission patient identified to have worsening condition as well as gee-G-tube cellulitis with skin breakdown, scrotal cellulitis with skin breakdown, sacral decubitus ulcer. Surgery called to evaluate and assist with care. Patient seen , patient [place], chart reviewed. Patient nonverbal and unable to participate in exam. He does mumble random words. Allergies: Coded Allergies: VANCOMYCIN (Verified Allergy, Mild, Redness , 10/29/18) CIPROFLOXACIN (Verified Allergy, Unknown, 08/23/15) Medication History Scheduled Bisacodyl (Dulcolax), 10 MG RC PRN, (Reported) Carvedilol (Coreg), 6.25 MG GT EVERY 12 HOURS Cran/Vitc/Mannose/Inulin/Brom (Uti-Stat Liquid), 3,875 MG GT BID, (Reported) Cranberry Fruit Concentrate (Cranberry), 900 MG GT BID, (Reported) Docusate Sodium* (Docusate Sodium*), 250 MG GT DAILY, (Reported) Linezolid* (Zyvox*), 600 MG GT EVERY 12 HOURS Sennosides (Senna), 8.6 MG GT QHS, (Reported) Trimethoprim/Sulfamethoxazole 160/800* (Bactrim Ds Tablet*), 1 TAB GT TWICE A DAY, (Reported) Scheduled PRN Acetaminophen (Tylenol), 650 MG GT Q4H PRN for Mild Pain (Pain Scale 1-3), ( Reported) Acetaminophen* (Tylenol Extra Strength*), 2 TAB GT Q4H PRN for Moderate Pain ( Pain Scale 4-6), (Reported) Magnesium Hydroxide* (Milk Of Magnesia*), 30 ML GT QHS PRN for Constipation, ( Reported) Na Phos,M-B/Na Phos,Di-Ba (Fleet Enema), 133 ML RC QOD PRN for Constipation, ( Reported) Discontinued Medications Amino Acids/Protein Hydrolys (Pro-Stat Liquid), 30 ML GT DAILY, (Reported) Discontinued Reason: Therapy completed Famotidine (Famotidine), 20 MG GT BID Discontinued Reason: Therapy completed Multivitamin With Minerals (Multivitamins With Minerals*), 5 ML GT DAILY, ( Reported) Discontinued Reason: Therapy completed Patient History Limited by: age, medical condition History Provided By: Medical Record, PMD Healthcare decision maker Resuscitation status Full Code Advanced Directive on File Yes Past Medical/Surgical History Past Medical/Surgical History: (1) Fecal impaction (2) Proctitis (3) Volvulus (4) Hypernatremia (5) Gastrostomy tube dependent (6) Anemia (7) Obstructive uropathy (8) Malfunction of nephrostomy tube (9) Obstructive hydrocephalus (10) COPD (chronic obstructive pulmonary disease) (11) Gram negative septicemia (12) Diabetes mellitus (13) Aphasia (14) Feeding by G-tube (15) Cellulitis of scrotum (16) Sepsis (17) History of CVA (cerebrovascular accident) (18) Suprapubic catheter dysfunction (19) Encephalopathy chronic (20) UTI (urinary tract infection) (21) History of DVT (deep vein thrombosis) (22) Suprapubic catheter (23) ATN (acute tubular necrosis) Review of Systems ROS Narrative cannot obtain given medical condition Physical Exam General Appearance: no apparent distress Lines, tubes and drains: peripheral HEENT: mucous membranes moist Neck: normal inspection Respiratory/Chest: normal breath sounds, no respiratory distress, no accessory muscle use Cardiovascular/Chest: normal rate Abdomen: soft, no organomegaly, no mass, feeding tube, other Skin Exam: warm/dry, rash, other Neurologic: alert Last 24 Hour Vital Signs Date Time Temp Pulse Resp B/P (MAP) Pulse Ox O2 Delivery O2 Flow Rate FiO2 12/09/18 12:00 97.7 77 18 113/70 (84) 95 12/09/18 09:21 71 155/77 12/09/18 09:00 Room Air 12/09/18 04:00 98.0 71 20 155/77 (103) 98 12/09/18 00:00 97.8 86 20 148/71 (96) 98 12/08/18 21:00 Room Air 12/08/18 20:41 82 136/84 12/08/18 20:00 98.1 82 19 138/84 (102) 96 12/08/18 18:10 97.9 93 20 116/69 (85) 96 12/08/18 16:00 98.8 80 20 100/65 (77) 98 Intake and Output 12/08/18 12/09/18 19:00 07:00 Intake Total 1205 ml 280 ml Output Total 550 ml 800 ml Balance 655 ml -520 ml Intake Free Water 200 ml 100 ml IV Total 675 ml Tube Feeding 330 ml 180 ml Output Urine Total 550 ml 800 ml # Bowel Movements 1 1 Laboratory Tests Test 12/09/18 07:00 White Blood Count 7.2 K/UL (4.8-10.8) Red Blood Count 4.16 M/UL (4.70-6.10) L Hemoglobin 12.4 G/DL (14.2-18.0) L Hematocrit 36.8 % (42.0-52.0) L Mean Corpuscular Volume 88 FL (80-99) Mean Corpuscular Hemoglobin 29.9 PG (27.0-31.0) Mean Corpuscular Hemoglobin Concent 33.8 G/DL (32.0-36.0) Red Cell Distribution Width 16.6 % (11.6-14.8) H Platelet Count 229 K/UL (150-450) Mean Platelet Volume 8.7 FL (6.5-10.1) Neutrophils (%) (Auto) 46.6 % (45.0-75.0) Lymphocytes (%) (Auto) 34.1 % (20.0-45.0) Monocytes (%) (Auto) 10.8 % (1.0-10.0) H Eosinophils (%) (Auto) 7.1 % (0.0-3.0) H Basophils (%) (Auto) 1.5 % (0.0-2.0) Sodium Level 146 MMOL/L (136-145) H Potassium Level 3.7 MMOL/L (3.5-5.1) Chloride Level 111 MMOL/L (98-107) H Carbon Dioxide Level 27 MMOL/L (21-32) Anion Gap 8 mmol/L (5-15) Blood Urea Nitrogen 19 mg/dL (7-18) H Creatinine 0.8 MG/DL (0.55-1.30) Estimat Glomerular Filtration Rate > 60 mL/min (>60) Glucose Level 104 MG/DL (74-106) Calcium Level 8.5 MG/DL (8.5-10.1) Height (Feet): 5 Height (Inches): 11.00 Weight (Pounds): 205 Medications Current Medications Medications (Trade) Dose Ordered Sig/Fab Route PRN Reason Start Time Stop Time Status Last Admin Dose Admin Bisacodyl (Dulcolax) 10 mg DAILYPRN PRN RECTAL Constipation 12/08/18 18:00 01/07/19 17:59 Carvedilol (Coreg) 6.25 mg EVERY 12 HOURS GT 12/08/18 21:00 01/05/19 20:59 12/09/18 09:21 Dextrose (Dextrose 50%) 25 ml Q30M PRN IV Hypoglycemia 12/08/18 17:45 01/05/19 13:44 Dextrose (Dextrose 50%) 50 ml Q30M PRN IV Hypoglycemia 12/08/18 18:00 01/07/19 17:59 Heparin Sodium (Porcine) (Heparin 5000 units/ml) 5,000 units EVERY 12 HOURS SUBQ 12/08/18 21:00 01/05/19 20:59 12/09/18 09:23 Lansoprazole (Prevacid) 30 mg BID GT 12/09/18 09:00 01/08/19 08:59 12/09/18 09:21 Lorazepam (Ativan 2mg/ml 1ml) 0.5 mg Q4H PRN IV For Anxiety 12/08/18 17:45 12/13/18 13:44 Morphine Sulfate (Morphine Sulfate) 1 mg Q4H PRN IVP For Pain 12/08/18 17:45 12/13/18 13:44 Nystatin (Nystop Powder) 1 applic THREE TIMES A DAY TOPIC 12/09/18 09:00 01/08/19 08:59 12/09/18 13:20 Ondansetron HCl (Zofran) 4 mg Q6H PRN IVP Nausea & Vomiting 12/08/18 18:00 01/05/19 17:59 Sennosides (Senokot) 17.2 mg QHS GT 12/08/18 21:00 01/06/19 20:59 12/08/18 20:41 Assessment/Plan Problem List: (1) Malfunction of nephrostomy tube Assessment & Plan: prior nephrostomy tube for obstructive stone now obstructed tube Urology eval and input cont abx ICD Codes: T83.098A - Other mechanical complication of other urinary catheter, initial encounter SNOMED: 188132850 (2) Fecal impaction Assessment & Plan: needs bowel regimen with proper diet DAILY ESTIMATED NEEDS: Needs based on Sepsis/ 76.7kg abw 25-30 kcals/kg 7345-9286 total kcals 1-2 g protein/kg 77-153 g total protein 25-30 mL/kg 9965-2727 total fluid mLs NUTRITION DIAGNOSIS: 1) Swallowing difficulty related to dysphagia s/p cva as evidenced by pt dependent on PEG for all nutrition and hydration needs. CURRENT TF: Jevity 1.2 @30ml ENTERAL NUTRITION RECOMMENDATIONS --->>> Glucerna 1.5 @ 55ml/hr x 24 hrs to provide 1320ml, 1980kcal, 109g prot, 1002ml free water * Rec TF change to Glucerna 1.5. * Start @35ml/hr for 6 hrs, advance as tolerated 10ml/hr q4-6 hrs to goal. * HOB over 30 degrees/ water flush per MD. ----- ADDITIONAL RECOMMENDATIONS: 1) Calibrated bedscale wt for accurate CBW 2) Monitor lytes, replete as needed 3) Consider NISS/ accuchecks w/ TF for BG control- h/o DM 4) Rec wound eval / coccyx wound F/up w/ wound eval ICD Codes: K56.41 - Fecal impaction SNOMED: 67928876 (3) Cellulitis of scrotum Assessment & Plan: see below ICD Codes: N49.2 - Inflammatory disorders of scrotum SNOMED: 69745362 (4) Decubitus skin ulcer Assessment & Plan: Patient presents with multiple skin issues. Patient identified to have partial-thickness sacral and right buttock pressure injury and abrasions. He has breakdown of the skin around the right buttock as well. Some of this seemingly from pressure others potentially from incontinence associated dermatitis. No foul order, no significant cellulitis in the sacral buttock area, periwound intact. Furthermore patient presents with a near full- thickness skin breakdown of his scrotal area with some scrotal cellulitis. Furthermore patient has skin breakdown around his G-tube site and some mild cellulitis. The above needs further care to ensure healing. Nutritional support. Wash G-tube site daily with normal saline. Apply skin protectant apply foam dressing applied G-tube site dressing as needed Wash sacral wound daily with normal saline. Apply skin protectant. Apply foam dressing. Daily and as needed saturation. Ensure patient being changed with incontinence Offload heels with pillows and heel protectors as needed Pillow between the thighs and skin protectant as well as foam dressing on the scrotum wound Air mattress Turn every 2 hours We will follow with recommendations ICD Codes: L89.90 - Pressure ulcer of unspecified site, unspecified stage SNOMED: 398979588 Russell Lopez Dec 09, 2018 13:43
[2018-12-09 16:00] VITALS: BP 108/72
--- NOTE | 2018-12-09 16:58 | Infectious Diseases Prog Note ---
Assessment/Plan Assessment/Plan Assessment: Afebrile nl WBC Non functional R Nephrostomy and pyuria/bacteriuria- will treat -u/a wbc tnct, Ucx P. stuarti (S Ceftriaxone, Zosyn) Interval resolution of the diffuse small bowel distention. No evidence of small bowel obstruction and this exam. Moderate to large volume stool in the rectosigmoid region, which may suggest impaction or constipation. No significant fecal retention in the proximal colon. Percutaneous nephrostomy tube with the tip coiled in the right renal pelvis. No hydronephrosis or hydroureter. Percutaneous cystostomy catheter, with expected positioning.. Percutaneous gastrostomy tube in place, with expected positioning. Unchanged appearance of scattered hepatic and left renal cysts. -11/08 SP R nephrostomy --findings: small amount slightly purulent urine sent for C and S. Intraprocedural images demonstrate dilated right renal collecting system. Multiple filling defects are compatible with a calculi demonstrated on recent CT scan Hx of recent Septic shock- SP -MRSA/ P Mirabilis, E. fecalis bacteremia- m/l source UTI from obstructive stone Hx of recent UTI ucx >100k P. mirabilis (Previously reporte as onlyS Genta, Ertapenem, Zosyn; now hs been updated to R Nitrofurantoin and otherwise S) Hx of recent Pneum -sp cx PsA (neri S), MRSA TCP , SP CVA/TIA Dm2 CKD suprapubic catheter DVT hypertensive heart disease [place] resident Plan: -Start Cefepime - 11/19 SP Zyvox and Cefepime -11/02 SP Meropenem #4 -11/01 Sp Amikacin #4 , IV Vancomycin #3 -10/29 SP Ertapenem #1, IV Vancomycin x1 -f/u cx ( Bl ,Ur ) -Monitor CBC/CMP, temperatures -aspiration precautions -Uro f/u Thank you for the consult , we will follow Subjective Allergies: Coded Allergies: VANCOMYCIN (Verified Allergy, Mild, Redness , 10/29/18) CIPROFLOXACIN (Verified Allergy, Unknown, 08/23/15) Objective Vital Signs Last 24 Hour Vital Signs Date Time Temp Pulse Resp B/P (MAP) Pulse Ox O2 Delivery O2 Flow Rate FiO2 12/09/18 16:00 97.6 91 20 108/72 (84) 98 12/09/18 12:00 97.7 77 18 113/70 (84) 95 12/09/18 09:21 71 155/77 12/09/18 09:00 Room Air 12/09/18 04:00 98.0 71 20 155/77 (103) 98 12/09/18 00:00 97.8 86 20 148/71 (96) 98 12/08/18 21:00 Room Air 12/08/18 20:41 82 136/84 12/08/18 20:00 98.1 82 19 138/84 (102) 96 12/08/18 18:10 97.9 93 20 116/69 (85) 96 Height (Feet): 5 Height (Inches): 11.00 Weight (Pounds): 205 Objective General Appearance: WD/WN, no apparent distress Lines, tubes and drains: peripheral, central line, gtube HEENT: normocephalic, atraumatic, anicteric Neck: non-tender, normal alignment Respiratory/Chest: chest wall non-tender, lungs clear Cardiovascular/Chest: normal peripheral pulses, normal rate Abdomen: normal bowel sounds, PEG + : Rt Nephrostomy +( empty bag) , Suprapubic Cath Extremities: contracted Laboratory Tests Test 12/09/18 07:00 White Blood Count 7.2 K/UL (4.8-10.8) Red Blood Count 4.16 M/UL (4.70-6.10) L Hemoglobin 12.4 G/DL (14.2-18.0) L Hematocrit 36.8 % (42.0-52.0) L Mean Corpuscular Volume 88 FL (80-99) Mean Corpuscular Hemoglobin 29.9 PG (27.0-31.0) Mean Corpuscular Hemoglobin Concent 33.8 G/DL (32.0-36.0) Red Cell Distribution Width 16.6 % (11.6-14.8) H Platelet Count 229 K/UL (150-450) Mean Platelet Volume 8.7 FL (6.5-10.1) Neutrophils (%) (Auto) 46.6 % (45.0-75.0) Lymphocytes (%) (Auto) 34.1 % (20.0-45.0) Monocytes (%) (Auto) 10.8 % (1.0-10.0) H Eosinophils (%) (Auto) 7.1 % (0.0-3.0) H Basophils (%) (Auto) 1.5 % (0.0-2.0) Sodium Level 146 MMOL/L (136-145) H Potassium Level 3.7 MMOL/L (3.5-5.1) Chloride Level 111 MMOL/L (98-107) H Carbon Dioxide Level 27 MMOL/L (21-32) Anion Gap 8 mmol/L (5-15) Blood Urea Nitrogen 19 mg/dL (7-18) H Creatinine 0.8 MG/DL (0.55-1.30) Estimat Glomerular Filtration Rate > 60 mL/min (>60) Glucose Level 104 MG/DL (74-106) Calcium Level 8.5 MG/DL (8.5-10.1) Current Medications Medications (Trade) Dose Ordered Sig/Fab Route PRN Reason Start Time Stop Time Status Last Admin Dose Admin Bisacodyl (Dulcolax) 10 mg DAILYPRN PRN RECTAL Constipation 12/08/18 18:00 01/07/19 17:59 Carvedilol (Coreg) 6.25 mg EVERY 12 HOURS GT 12/08/18 21:00 01/05/19 20:59 12/09/18 09:21 Dextrose (Dextrose 50%) 25 ml Q30M PRN IV Hypoglycemia 12/08/18 17:45 01/05/19 13:44 Dextrose (Dextrose 50%) 50 ml Q30M PRN IV Hypoglycemia 12/08/18 18:00 01/07/19 17:59 Heparin Sodium (Porcine) (Heparin 5000 units/ml) 5,000 units EVERY 12 HOURS SUBQ 12/08/18 21:00 01/05/19 20:59 12/09/18 09:23 Lansoprazole (Prevacid) 30 mg BID GT 12/09/18 09:00 01/08/19 08:59 12/09/18 09:21 Lorazepam (Ativan 2mg/ml 1ml) 0.5 mg Q4H PRN IV For Anxiety 12/08/18 17:45 12/13/18 13:44 Morphine Sulfate (Morphine Sulfate) 1 mg Q4H PRN IVP For Pain 12/08/18 17:45 12/13/18 13:44 Nystatin (Nystop Powder) 1 applic THREE TIMES A DAY TOPIC 12/09/18 09:00 01/08/19 08:59 12/09/18 13:20 Ondansetron HCl (Zofran) 4 mg Q6H PRN IVP Nausea & Vomiting 12/08/18 18:00 01/05/19 17:59 Sennosides (Senokot) 17.2 mg QHS GT 12/08/18 21:00 01/06/19 20:59 12/08/18 20:41 Dorothea Macario M.D. Dec 09, 2018 16:58
[2018-12-09] MEDS ORDERED: Cefepime HCl 1 GM in D5W 55 ML IVPB SCH (17:00)
--- NOTE | 2018-12-09 18:20 | Pulmonology Progress Note ---
Assessment/Plan Problems: (1) Suprapubic catheter dysfunction (2) History of DVT (deep vein thrombosis) (3) Suprapubic catheter (4) Obstructive hydrocephalus (5) COPD (chronic obstructive pulmonary disease) (6) Diabetes mellitus (7) Aphasia (8) Feeding by G-tube (9) History of CVA (cerebrovascular accident) Assessment/Plan awake, urology evaluation continue feeding symptomatic treatment Subjective ROS Limited/Unobtainable: No Constitutional: Reports: no symptoms HEENT: Repors: no symptoms Allergies: Coded Allergies: VANCOMYCIN (Verified Allergy, Mild, Redness , 10/29/18) CIPROFLOXACIN (Verified Allergy, Unknown, 08/23/15) Objective Last 24 Hour Vital Signs Date Time Temp Pulse Resp B/P (MAP) Pulse Ox O2 Delivery O2 Flow Rate FiO2 12/09/18 16:00 97.6 91 20 108/72 (84) 98 12/09/18 12:00 97.7 77 18 113/70 (84) 95 12/09/18 09:21 71 155/77 12/09/18 09:00 Room Air 12/09/18 04:00 98.0 71 20 155/77 (103) 98 12/09/18 00:00 97.8 86 20 148/71 (96) 98 12/08/18 21:00 Room Air 12/08/18 20:41 82 136/84 12/08/18 20:00 98.1 82 19 138/84 (102) 96 Intake and Output 12/08/18 12/09/18 19:00 07:00 Intake Total 1205 ml 335 ml Output Total 550 ml 800 ml Balance 655 ml -465 ml Intake Free Water 200 ml 100 ml IV Total 675 ml Tube Feeding 330 ml 235 ml Output Urine Total 550 ml 800 ml # Bowel Movements 1 1 General Appearance: WD/WN HEENT: normocephalic, atraumatic Cardiovascular: normal peripheral pulses, normal rate Abdomen: normal bowel sounds, soft, non tender Laboratory Tests 12/09/18 07:00: White Blood Count 7.2, Red Blood Count 4.16L, Hemoglobin 12.4L, Hematocrit 36.8L , Mean Corpuscular Volume 88, Mean Corpuscular Hemoglobin 29.9, Mean Corpuscular Hemoglobin Concent 33.8, Red Cell Distribution Width 16.6H, Platelet Count 229, Mean Platelet Volume 8.7, Neutrophils (%) (Auto) 46.6, Lymphocytes (%) (Auto) 34.1, Monocytes (%) (Auto) 10.8H, Eosinophils (%) (Auto) 7.1H, Basophils (%) (Auto) 1.5, Sodium Level 146H, Potassium Level 3.7, Chloride Level 111H, Carbon Dioxide Level 27, Anion Gap 8, Blood Urea Nitrogen 19H, Creatinine 0.8, Estimat Glomerular Filtration Rate > 60, Glucose Level 104 , Calcium Level 8.5 Current Medications Medications (Trade) Dose Ordered Sig/Fab Route PRN Reason Start Time Stop Time Status Last Admin Dose Admin Bisacodyl (Dulcolax) 10 mg DAILYPRN PRN RECTAL Constipation 12/08/18 18:00 01/07/19 17:59 Carvedilol (Coreg) 6.25 mg EVERY 12 HOURS GT 12/08/18 21:00 01/05/19 20:59 12/09/18 09:21 Cefepime HCl 1 gm/ Dextrose 55 ml @ 110 mls/hr EVERY 12 HOURS IVPB 12/09/18 17:00 12/16/18 16:59 12/09/18 17:37 Dextrose (Dextrose 50%) 25 ml Q30M PRN IV Hypoglycemia 12/08/18 17:45 01/05/19 13:44 Dextrose (Dextrose 50%) 50 ml Q30M PRN IV Hypoglycemia 12/08/18 18:00 01/07/19 17:59 Heparin Sodium (Porcine) (Heparin 5000 units/ml) 5,000 units EVERY 12 HOURS SUBQ 12/08/18 21:00 01/05/19 20:59 12/09/18 09:23 Lansoprazole (Prevacid) 30 mg BID GT 12/09/18 09:00 01/08/19 08:59 12/09/18 17:38 Lorazepam (Ativan 2mg/ml 1ml) 0.5 mg Q4H PRN IV For Anxiety 12/08/18 17:45 12/13/18 13:44 Morphine Sulfate (Morphine Sulfate) 1 mg Q4H PRN IVP For Pain 12/08/18 17:45 12/13/18 13:44 Nystatin (Nystop Powder) 1 applic THREE TIMES A DAY TOPIC 12/09/18 09:00 01/08/19 08:59 12/09/18 17:38 Ondansetron HCl (Zofran) 4 mg Q6H PRN IVP Nausea & Vomiting 12/08/18 18:00 01/05/19 17:59 Sennosides (Senokot) 17.2 mg QHS GT 12/08/18 21:00 01/06/19 20:59 12/08/18 20:41 Rigoberto Bryant MD Dec 09, 2018 18:20
--- NOTE | 2018-12-09 19:38 | NUR ---
NURSE NOTES: Received report from CANDI Longoria. Patient awake and verbally able to say "ya" or make facial expression. Breathing unlabored without distress, discomfort, or sob on room air. IV site on right forearm intact, dry, clean, and patent running TKO. G-tube running feeding as prescribed. No residual noted at this time. Nephrostomy noted. Suprapubic cath intact draining urine. Bed placed at the lowest with alarm, brake, and siderails up for safety. Call light placed within reach. Will continue to monitor and provide care as ordered.
--- NOTE | 2018-12-09 19:38 | NUR ---
HAND-OFF: Report given to CANDI Marte.
[2018-12-09 20:00] VITALS: BP 107/73
[2018-12-09] MEDS: Sennosides 8.6mg tab GT SCH (20:11)
[2018-12-10] VITALS: BP 103/77
[2018-12-10 04:00] VITALS: BP 107/68
[2018-12-10 07:18] LABS: BASOPHILS % (AUTO) 1.4 % (0.0-2.0); EOSINOPHILS % (AUTO) 7.2 % (0.0-3.0); HEMATOCRIT 38.6 % (42.0-52.0); HEMOGLOBIN 12.2 G/DL (14.2-18.0); LYMPHOCYTES % (AUTO) 36.8 % (20.0-45.0); MEAN CORPUSCULAR VOLUME 94 FL (80-99); MONOCYTES % (AUTO) 9.2 % (1.0-10.0); NEUTROPHILS % (AUTO) 45.4 % (45.0-75.0); PLATELET COUNT 214 K/UL (150-450); RED BLOOD COUNT 4.11 M/UL (4.70-6.10); RED CELL DISTRIBUTION WIDTH 18.2 % (11.6-14.8); WHITE BLOOD COUNT 7.9 K/UL (4.8-10.8)
[2018-12-10 07:22] LABS: ANION GAP 8 mmol/L (5-15); BLOOD UREA NITROGEN 20 mg/dL (7-18); CALCIUM 8.5 MG/DL (8.5-10.1); CARBON DIOXIDE 27 MMOL/L (21-32); CHLORIDE 111 MMOL/L (98-107); CREATININE 0.7 MG/DL (0.55-1.30); POTASSIUM 3.6 MMOL/L (3.5-5.1); SODIUM 146 MMOL/L (136-145)
--- NOTE | 2018-12-10 07:32 | NUR ---
HAND-OFF: Report given to CANDI Longoria.
--- NOTE | 2018-12-10 07:33 | NUR ---
NURSE NOTES: Received pt in bed, AAO x 2. No c/o of pain/distress. IV on R FA 20g intact and patent, with saline lock. G-tube feeding going @ 55 cc/hr. Nephrostomy noted. Suprapubic cath intact draining urine. Side rails x 2. Bed in the lowest, locked, and alarm on. Call light within reach. Will continue to monitor
[2018-12-10] MEDS: Carvedilol 6.25mg Tab GT SCH ×2 (08:52→22:04)
[2018-12-10] MEDS: Cefepime HCl 1 GM in D5W 55 ML IVPB SCH ×2 (08:53→22:05)
[2018-12-10] MEDS: Nystatin Powder 100,000 units/gm 15gm TOPIC SCH ×3 (08:55→17:37)
[2018-12-10] MEDS: Heparin 5000 units/ml inj SUBQ SCH ×2 (08:55→22:07)
--- NOTE | 2018-12-10 10:19 | NUR ---
PT NOTE Received MD order for PT evaluation, medical record reviewed. Spoke with staff at SNF regarding patient's prior level of function. Patient at baseline is dependent with all functional mobility, is essentially bedbound, transfers to michelle chair with Eris lift. Skilled inpatient PT intervention not warranted due to dependent level of function, patient discharged from PT, Von CHRISTOPHER notified.
--- NOTE | 2018-12-10 11:39 | Cardiology Report ---
APPROVED REPORT EKG Measurement Heart [id number] Normal sinus rhythm Inferior infarct, age undetermined Abnormal ECG
--- NOTE | 2018-12-10 12:29 | Infectious Diseases Prog Note ---
Assessment/Plan Assessment/Plan Assessment: Afebrile nl WBC Non functional R Nephrostomy and pyuria/bacteriuria- will treat -u/a wbc tnct, Ucx P. stuarti (S Ceftriaxone, Zosyn) -12/08 CT abd/p: Interval resolution of the diffuse small bowel distention. No evidence of small bowel obstruction and this exam. Moderate to large volume stool in the rectosigmoid region, which may suggest impaction or constipation. No significant fecal retention in the proximal colon. Percutaneous nephrostomy tube with the tip coiled in the right renal pelvis. No hydronephrosis or hydroureter. Percutaneous cystostomy catheter, with expected positioning.. Percutaneous gastrostomy tube in place, with expected positioning. Unchanged appearance of scattered hepatic and left renal cysts. -11/08 SP R nephrostomy --findings: small amount slightly purulent urine sent for C and S. Intraprocedural images demonstrate dilated right renal collecting system. Multiple filling defects are compatible with a calculi demonstrated on recent CT scan Hx of recent Septic shock- SP -MRSA/ P Mirabilis, E. fecalis bacteremia- m/l source UTI from obstructive stone Hx of recent UTI ucx >100k P. mirabilis (Previously reporte as onlyS Genta, Ertapenem, Zosyn; now hs been updated to R Nitrofurantoin and otherwise S) Hx of recent Pneum -sp cx PsA (neri S), MRSA TCP , SP CVA/TIA Dm2 CKD suprapubic catheter DVT hypertensive heart disease [place] resident Plan: -Continue Cefepime #2 for bacteriuria and non functioning Nephrostomy tube - 11/19 SP Zyvox and Cefepime -11/02 SP Meropenem #4 -11/01 Sp Amikacin #4 , IV Vancomycin #3 -10/29 SP Ertapenem #1, IV Vancomycin x1 -f/u cx ( Bl ,Ur ) -Monitor CBC/CMP, temperatures -aspiration precautions -Uro f/u Thank you for the consult , we will follow Subjective Allergies: Coded Allergies: VANCOMYCIN (Verified Allergy, Mild, Redness , 10/29/18) CIPROFLOXACIN (Verified Allergy, Unknown, 08/23/15) Subjective afebrile no leukocytosis Bcx NTD Objective Vital Signs Last 24 Hour Vital Signs Date Time Temp Pulse Resp B/P (MAP) Pulse Ox O2 Delivery O2 Flow Rate FiO2 9/3/19 09:00 Room Air 12/10/18 08:52 85 107/68 12/10/18 04:00 97.9 85 18 107/68 (81) 98 12/10/18 00:00 98.3 88 20 103/77 (86) 99 12/09/18 21:00 94 99/70 12/09/18 21:00 Room Air 12/09/18 20:00 97.9 85 20 107/73 (84) 98 12/09/18 16:00 97.6 91 20 108/72 (84) 98 Height (Feet): 5 Height (Inches): 11.00 Weight (Pounds): 205 Objective General Appearance: WD/WN, no apparent distress Lines, tubes and drains: peripheral, central line, gtube HEENT: normocephalic, atraumatic, anicteric Neck: non-tender, normal alignment Respiratory/Chest: chest wall non-tender, lungs clear Cardiovascular/Chest: normal peripheral pulses, normal rate Abdomen: normal bowel sounds, PEG + : Rt Nephrostomy +( empty bag) , Suprapubic Cath Extremities: contracted Laboratory Tests Test 12/10/18 06:15 White Blood Count 7.9 K/UL (4.8-10.8) Red Blood Count 4.11 M/UL (4.70-6.10) L Hemoglobin 12.2 G/DL (14.2-18.0) L Hematocrit 38.6 % (42.0-52.0) L Mean Corpuscular Volume 94 FL (80-99) Mean Corpuscular Hemoglobin 29.8 PG (27.0-31.0) Mean Corpuscular Hemoglobin Concent 31.7 G/DL (32.0-36.0) L Red Cell Distribution Width 18.2 % (11.6-14.8) H Platelet Count 214 K/UL (150-450) Mean Platelet Volume 9.4 FL (6.5-10.1) Neutrophils (%) (Auto) 45.4 % (45.0-75.0) Lymphocytes (%) (Auto) 36.8 % (20.0-45.0) Monocytes (%) (Auto) 9.2 % (1.0-10.0) Eosinophils (%) (Auto) 7.2 % (0.0-3.0) H Basophils (%) (Auto) 1.4 % (0.0-2.0) Sodium Level 146 MMOL/L (136-145) H Potassium Level 3.6 MMOL/L (3.5-5.1) Chloride Level 111 MMOL/L (98-107) H Carbon Dioxide Level 27 MMOL/L (21-32) Anion Gap 8 mmol/L (5-15) Blood Urea Nitrogen 20 mg/dL (7-18) H Creatinine 0.7 MG/DL (0.55-1.30) Estimat Glomerular Filtration Rate > 60 mL/min (>60) Glucose Level 115 MG/DL (74-106) H Calcium Level 8.5 MG/DL (8.5-10.1) Current Medications Medications (Trade) Dose Ordered Sig/Fab Route PRN Reason Start Time Stop Time Status Last Admin Dose Admin Bisacodyl (Dulcolax) 10 mg DAILYPRN PRN RECTAL Constipation 12/08/18 18:00 01/07/19 17:59 Carvedilol (Coreg) 6.25 mg EVERY 12 HOURS GT 12/08/18 21:00 01/05/19 20:59 12/09/18 09:21 Cefepime HCl 1 gm/ Dextrose 55 ml @ 110 mls/hr EVERY 12 HOURS IVPB 12/10/18 09:00 12/17/18 08:59 12/10/18 08:53 Dextrose (Dextrose 50%) 25 ml Q30M PRN IV Hypoglycemia 12/08/18 17:45 01/05/19 13:44 Dextrose (Dextrose 50%) 50 ml Q30M PRN IV Hypoglycemia 12/08/18 18:00 01/07/19 17:59 Heparin Sodium (Porcine) (Heparin 5000 units/ml) 5,000 units EVERY 12 HOURS SUBQ 12/08/18 21:00 01/05/19 20:59 12/10/18 08:55 Lansoprazole (Prevacid) 30 mg BID GT 12/09/18 09:00 01/08/19 08:59 12/10/18 08:52 Lorazepam (Ativan 2mg/ml 1ml) 0.5 mg Q4H PRN IV For Anxiety 12/08/18 17:45 12/13/18 13:44 Morphine Sulfate (Morphine Sulfate) 1 mg Q4H PRN IVP For Pain 12/08/18 17:45 12/13/18 13:44 Nystatin (Nystop Powder) 1 applic THREE TIMES A DAY TOPIC 12/09/18 09:00 01/08/19 08:59 12/10/18 08:55 Ondansetron HCl (Zofran) 4 mg Q6H PRN IVP Nausea & Vomiting 12/08/18 18:00 01/05/19 17:59 Sennosides (Senokot) 17.2 mg QHS GT 12/08/18 21:00 01/06/19 20:59 12/09/18 20:11 Dorothea Macario M.D. Dec 10, 2018 12:29
--- NOTE | 2018-12-10 12:48 | Pulmonology Progress Note ---
Assessment/Plan Problems: (1) Suprapubic catheter dysfunction (2) History of DVT (deep vein thrombosis) (3) Suprapubic catheter (4) Obstructive hydrocephalus (5) COPD (chronic obstructive pulmonary disease) (6) Diabetes mellitus (7) Aphasia (8) Feeding by G-tube (9) History of CVA (cerebrovascular accident) Assessment/Plan awake, looks comfortable urology evaluation continue feeding symptomatic treatment Subjective ROS Limited/Unobtainable: No Constitutional: Reports: no symptoms Respiratory: Reports: no symptoms Allergies: Coded Allergies: VANCOMYCIN (Verified Allergy, Mild, Redness , 10/29/18) CIPROFLOXACIN (Verified Allergy, Unknown, 08/23/15) Objective Last 24 Hour Vital Signs Date Time Temp Pulse Resp B/P (MAP) Pulse Ox O2 Delivery O2 Flow Rate FiO2 12/10/18 09:00 Room Air 12/10/18 08:52 85 107/68 12/10/18 04:00 97.9 85 18 107/68 (81) 98 12/10/18 00:00 98.3 88 20 103/77 (86) 99 12/09/18 21:00 94 99/70 12/09/18 21:00 Room Air 12/09/18 20:00 97.9 85 20 107/73 (84) 98 12/09/18 16:00 97.6 91 20 108/72 (84) 98 Intake and Output 12/09/18 12/10/18 19:00 07:00 Intake Total 760 ml 650 ml Output Total 350 ml 330 ml Balance 410 ml 320 ml Intake Free Water 100 ml 100 ml IV Total 55 ml Tube Feeding 605 ml 550 ml Output Urine Total 350 ml 330 ml General Appearance: WD/WN HEENT: normocephalic, atraumatic Respiratory/Chest: chest wall non-tender, lungs clear Cardiovascular: normal peripheral pulses, normal rate Abdomen: normal bowel sounds, soft, non tender Extremities: no cyanosis 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: no motor/sensory deficits Lymphatic: no groin adenopathy Laboratory Tests 12/10/18 06:15: White Blood Count 7.9, Red Blood Count 4.11L, Hemoglobin 12.2L, Hematocrit 38.6L , Mean Corpuscular Volume 94, Mean Corpuscular Hemoglobin 29.8, Mean Corpuscular Hemoglobin Concent 31.7L, Red Cell Distribution Width 18.2H, Platelet Count 214, Mean Platelet Volume 9.4, Neutrophils (%) (Auto) 45.4, Lymphocytes (%) (Auto) 36.8, Monocytes (%) (Auto) 9.2, Eosinophils (%) (Auto) 7.2H, Basophils (%) (Auto) 1.4, Sodium Level 146H, Potassium Level 3.6, Chloride Level 111H, Carbon Dioxide Level 27, Anion Gap 8, Blood Urea Nitrogen 20H, Creatinine 0.7, Estimat Glomerular Filtration Rate > 60, Glucose Level 115H , Calcium Level 8.5 Current Medications Medications (Trade) Dose Ordered Sig/Fab Route PRN Reason Start Time Stop Time Status Last Admin Dose Admin Bisacodyl (Dulcolax) 10 mg DAILYPRN PRN RECTAL Constipation 12/08/18 18:00 01/07/19 17:59 Carvedilol (Coreg) 6.25 mg EVERY 12 HOURS GT 12/08/18 21:00 01/05/19 20:59 12/09/18 09:21 Cefepime HCl 1 gm/ Dextrose 55 ml @ 110 mls/hr EVERY 12 HOURS IVPB 12/10/18 09:00 12/17/18 08:59 12/10/18 08:53 Dextrose (Dextrose 50%) 25 ml Q30M PRN IV Hypoglycemia 12/08/18 17:45 01/05/19 13:44 Dextrose (Dextrose 50%) 50 ml Q30M PRN IV Hypoglycemia 12/08/18 18:00 01/07/19 17:59 Heparin Sodium (Porcine) (Heparin 5000 units/ml) 5,000 units EVERY 12 HOURS SUBQ 12/08/18 21:00 01/05/19 20:59 12/10/18 08:55 Lansoprazole (Prevacid) 30 mg BID GT 12/09/18 09:00 01/08/19 08:59 12/10/18 08:52 Lorazepam (Ativan 2mg/ml 1ml) 0.5 mg Q4H PRN IV For Anxiety 12/08/18 17:45 12/13/18 13:44 Morphine Sulfate (Morphine Sulfate) 1 mg Q4H PRN IVP For Pain 12/08/18 17:45 12/13/18 13:44 Nystatin (Nystop Powder) 1 applic THREE TIMES A DAY TOPIC 9/2/19 09:00 01/08/19 08:59 12/10/18 08:55 Ondansetron HCl (Zofran) 4 mg Q6H PRN IVP Nausea & Vomiting 12/08/18 18:00 01/05/19 17:59 Sennosides (Senokot) 17.2 mg QHS GT 12/08/18 21:00 01/06/19 20:59 12/09/18 20:11 Rigoberto Bryant MD Dec 10, 2018 12:48
--- NOTE | 2018-12-10 13:10 | General Progress Note ---
Assessment/Plan Problem List: (1) Malfunction of nephrostomy tube ICD Codes: T83.098A - Other mechanical complication of other urinary catheter, initial encounter SNOMED: 905622506 (2) UTI (urinary tract infection) ICD Codes: N39.0 - Urinary tract infection, site not specified SNOMED: 26755936 (3) Hypernatremia ICD Codes: E87.0 - Hyperosmolality and hypernatremia SNOMED: 499666468 (4) Obstructive uropathy ICD Codes: N13.9 - Obstructive and reflux uropathy, unspecified SNOMED: 4911542 (5) Anemia ICD Codes: D64.9 - Anemia, unspecified SNOMED: 990617938 (6) COPD (chronic obstructive pulmonary disease) ICD Codes: J44.9 - Chronic obstructive pulmonary disease, unspecified SNOMED: 32738206 (7) Diabetes mellitus ICD Codes: E11.9 - Type 2 diabetes mellitus without complications SNOMED: 54776256 (8) History of CVA (cerebrovascular accident) ICD Codes: Z86.73 - Personal history of transient ischemic attack (TIA), and cerebral infarction without residual deficits SNOMED: 070115910 (9) History of DVT (deep vein thrombosis) ICD Codes: Z86.718 - Personal history of other venous thrombosis and embolism SNOMED: 079184174 Status: stable, progressing Assessment/Plan: ot pt diet abx neph uro f/u cbc bmp am brotman aru eval Subjective Constitutional: Reports: weakness Allergies: Coded Allergies: VANCOMYCIN (Verified Allergy, Mild, Redness , 10/29/18) CIPROFLOXACIN (Verified Allergy, Unknown, 08/23/15) All Systems: reviewed and negative except above Subjective calm in bed Objective Last 24 Hour Vital Signs Date Time Temp Pulse Resp B/P (MAP) Pulse Ox O2 Delivery O2 Flow Rate FiO2 12/10/18 09:00 Room Air 12/10/18 08:52 85 107/68 12/10/18 04:00 97.9 85 18 107/68 (81) 98 12/10/18 00:00 98.3 88 20 103/77 (86) 99 12/09/18 21:00 94 99/70 12/09/18 21:00 Room Air 12/09/18 20:00 97.9 85 20 107/73 (84) 98 12/09/18 16:00 97.6 91 20 108/72 (84) 98 Intake and Output 12/09/18 12/10/18 19:00 07:00 Intake Total 760 ml 650 ml Output Total 350 ml 330 ml Balance 410 ml 320 ml Intake Free Water 100 ml 100 ml IV Total 55 ml Tube Feeding 605 ml 550 ml Output Urine Total 350 ml 330 ml Laboratory Tests 12/10/18 06:15: White Blood Count 7.9, Red Blood Count 4.11L, Hemoglobin 12.2L, Hematocrit 38.6L , Mean Corpuscular Volume 94, Mean Corpuscular Hemoglobin 29.8, Mean Corpuscular Hemoglobin Concent 31.7L, Red Cell Distribution Width 18.2H, Platelet Count 214, Mean Platelet Volume 9.4, Neutrophils (%) (Auto) 45.4, Lymphocytes (%) (Auto) 36.8, Monocytes (%) (Auto) 9.2, Eosinophils (%) (Auto) 7.2H, Basophils (%) (Auto) 1.4, Sodium Level 146H, Potassium Level 3.6, Chloride Level 111H, Carbon Dioxide Level 27, Anion Gap 8, Blood Urea Nitrogen 20H, Creatinine 0.7, Estimat Glomerular Filtration Rate > 60, Glucose Level 115H , Calcium Level 8.5 Height (Feet): 5 Height (Inches): 11.00 Weight (Pounds): 205 General Appearance: lethargic EENT: normal ENT inspection Neck: normal alignment Cardiovascular: normal peripheral pulses, normal rate, regular rhythm Respiratory/Chest: chest wall non-tender, lungs clear, normal breath sounds Abdomen: normal bowel sounds, non tender, soft Extremities: normal inspection Edema: no edema noted Arm (L), no edema noted Arm (R), no edema noted Leg (L), no edema noted Leg (R), no edema noted Pedal (L), no edema noted Pedal (R), no edema noted Generalized Neurologic: motor weakness Skin: normal pigmentation, warm/dry Jaylen Bear DO Dec 10, 2018 13:10
--- NOTE | 2018-12-10 13:23 | Nephrology Progress Note ---
Assessment/Plan Problem List: (1) Hypernatremia Assessment: dehydration (2) Gastrostomy tube dependent (3) Obstructive uropathy (4) Suprapubic catheter (5) History of CVA (cerebrovascular accident) Assessment: aphasia Assessment 1) Dehydration (2) HyperNatremia (3) Suprapubic catheter (4) History of CVA (cerebrovascular accident) previous Acute renal failure- resolved previous Sepsis CVA Suprapubic cath / ? Neurogenic bladder HTN DVT UTI Plan K , mag , phos as needed stop [id number]- dehydration improved midodrine prn avoid nephrotoxics monitor renal parameters per consultants Subjective ROS Limited/Unobtainable: No Constitutional: Reports: malaise, other - non verbal Objective Objective Last 24 Hour Vital Signs Date Time Temp Pulse Resp B/P (MAP) Pulse Ox O2 Delivery O2 Flow Rate FiO2 12/10/18 09:00 Room Air 12/10/18 08:52 85 107/68 12/10/18 04:00 97.9 85 18 107/68 (81) 98 12/10/18 00:00 98.3 88 20 103/77 (86) 99 12/09/18 21:00 94 99/70 12/09/18 21:00 Room Air 12/09/18 20:00 97.9 85 20 107/73 (84) 98 12/09/18 16:00 97.6 91 20 108/72 (84) 98 Intake and Output 12/09/18 12/10/18 19:00 07:00 Intake Total 760 ml 650 ml Output Total 350 ml 330 ml Balance 410 ml 320 ml Intake Free Water 100 ml 100 ml IV Total 55 ml Tube Feeding 605 ml 550 ml Output Urine Total 350 ml 330 ml Laboratory Tests 12/10/18 06:15: White Blood Count 7.9, Red Blood Count 4.11L, Hemoglobin 12.2L, Hematocrit 38.6L , Mean Corpuscular Volume 94, Mean Corpuscular Hemoglobin 29.8, Mean Corpuscular Hemoglobin Concent 31.7L, Red Cell Distribution Width 18.2H, Platelet Count 214, Mean Platelet Volume 9.4, Neutrophils (%) (Auto) 45.4, Lymphocytes (%) (Auto) 36.8, Monocytes (%) (Auto) 9.2, Eosinophils (%) (Auto) 7.2H, Basophils (%) (Auto) 1.4, Sodium Level 146H, Potassium Level 3.6, Chloride Level 111H, Carbon Dioxide Level 27, Anion Gap 8, Blood Urea Nitrogen 20H, Creatinine 0.7, Estimat Glomerular Filtration Rate > 60, Glucose Level 115H , Calcium Level 8.5 Height (Feet): 5 Height (Inches): 11.00 Weight (Pounds): 205 General Appearance: no apparent distress Cardiovascular: normal rate Respiratory/Chest: decreased breath sounds Abdomen: soft, distended Objective no change Pranav Grady MD Dec 10, 2018 13:23
--- NOTE | 2018-12-10 13:53 | NUR ---
NURSE NOTES: Dr Macario made aware of cre + rectum, no new orders given at this time.
[2018-12-10 16:00] VITALS: BP 123/74
--- NOTE | 2018-12-10 18:28 | NUR ---
CASE MANAGEMENT: INITIAL REVIEW 58 YO M [facility] FROM [facility] CONV CC: NO OUTPUT FROM RIGHT NEPHROSTOMY TUBE PMHx: DM. COPD. ENCEPHALOPATHY. TACHYCARDIA. DVT. CVA. SI:OBSTRUCTED NEPHROSTOMY TUBE. T 98.2 HR 98 RR 18 B/P 118/84 SATS 98% ON RA NA 156 CL 117 BUN 44 GLU 114 IS: NS BOLUS X1 PATIENT ADMITTED TO MED/SURG 12/06/2018 @ 1403 DCP: PATIENT TO BE DISCHARGED TO SNF ONCE MEDICALLY CLEARED. Addendum: 12/11/18 at 0739 by Latonia Gonzales INTERKRISTYNAL
--- NOTE | 2018-12-10 18:42 | Surgery Progress Note ---
Surgery Progress Note Subjective Symptoms: improved, tolerating diet, voiding well, passing flatus Objective Last 24 Hour Vital Signs Date Time Temp Pulse Resp B/P (MAP) Pulse Ox O2 Delivery O2 Flow Rate FiO2 12/10/18 16:00 98.0 83 20 123/74 (90) 97 12/10/18 09:00 Room Air 12/10/18 08:52 85 107/68 12/10/18 04:00 97.9 85 18 107/68 (81) 98 12/10/18 00:00 98.3 88 20 103/77 (86) 99 12/09/18 21:00 94 99/70 12/09/18 21:00 Room Air 12/09/18 20:00 97.9 85 20 107/73 (84) 98 I&O Intake and Output 12/09/18 12/10/18 19:00 07:00 Intake Total 760 ml 705 ml Output Total 350 ml 330 ml Balance 410 ml 375 ml Intake Free Water 100 ml 100 ml IV Total 55 ml Tube Feeding 605 ml 605 ml Output Urine Total 350 ml 330 ml Cardiovascular: RSR Respiratory: clear Abdomen: soft, non-tender, present bowel sounds, non-distended Extremities: no cyanosis, other Laboratory Tests Test 12/10/18 06:15 White Blood Count 7.9 K/UL (4.8-10.8) Red Blood Count 4.11 M/UL (4.70-6.10) L Hemoglobin 12.2 G/DL (14.2-18.0) L Hematocrit 38.6 % (42.0-52.0) L Mean Corpuscular Volume 94 FL (80-99) Mean Corpuscular Hemoglobin 29.8 PG (27.0-31.0) Mean Corpuscular Hemoglobin Concent 31.7 G/DL (32.0-36.0) L Red Cell Distribution Width 18.2 % (11.6-14.8) H Platelet Count 214 K/UL (150-450) Mean Platelet Volume 9.4 FL (6.5-10.1) Neutrophils (%) (Auto) 45.4 % (45.0-75.0) Lymphocytes (%) (Auto) 36.8 % (20.0-45.0) Monocytes (%) (Auto) 9.2 % (1.0-10.0) Eosinophils (%) (Auto) 7.2 % (0.0-3.0) H Basophils (%) (Auto) 1.4 % (0.0-2.0) Sodium Level 146 MMOL/L (136-145) H Potassium Level 3.6 MMOL/L (3.5-5.1) Chloride Level 111 MMOL/L (98-107) H Carbon Dioxide Level 27 MMOL/L (21-32) Anion Gap 8 mmol/L (5-15) Blood Urea Nitrogen 20 mg/dL (7-18) H Creatinine 0.7 MG/DL (0.55-1.30) Estimat Glomerular Filtration Rate > 60 mL/min (>60) Glucose Level 115 MG/DL (74-106) H Calcium Level 8.5 MG/DL (8.5-10.1) Plan Problems: (1) Malfunction of nephrostomy tube Assessment & Plan: prior nephrostomy tube for obstructive stone now obstructed tube Urology eval and input cont abx (2) Fecal impaction Assessment & Plan: needs bowel regimen with proper diet DAILY ESTIMATED NEEDS: Needs based on Sepsis/ 76.7kg abw 25-30 kcals/kg 9877-6060 total kcals 1-2 g protein/kg 77-153 g total protein 25-30 mL/kg 7528-6021 total fluid mLs NUTRITION DIAGNOSIS: 1) Swallowing difficulty related to dysphagia s/p cva as evidenced by pt dependent on PEG for all nutrition and hydration needs. CURRENT TF: Jevity 1.2 @30ml ENTERAL NUTRITION RECOMMENDATIONS --->>> Glucerna 1.5 @ 55ml/hr x 24 hrs to provide 1320ml, 1980kcal, 109g prot, 1002ml free water * Rec TF change to Glucerna 1.5. * Start @35ml/hr for 6 hrs, advance as tolerated 10ml/hr q4-6 hrs to goal. * HOB over 30 degrees/ water flush per MD. ----- ADDITIONAL RECOMMENDATIONS: 1) Calibrated bedscale wt for accurate CBW 2) Monitor lytes, replete as needed 3) Consider NISS/ accuchecks w/ TF for BG control- h/o DM 4) Rec wound eval / coccyx wound F/up w/ wound eval (3) Cellulitis of scrotum Assessment & Plan: see below (4) Decubitus skin ulcer Assessment & Plan: Patient presents with multiple skin issues. Patient identified to have partial-thickness sacral and right buttock pressure injury and abrasions. He has breakdown of the skin around the right buttock as well. Some of this seemingly from pressure others potentially from incontinence associated dermatitis. No foul order, no significant cellulitis in the sacral buttock area, periwound intact. Furthermore patient presents with a near full- thickness skin breakdown of his scrotal area with some scrotal cellulitis. Furthermore patient has skin breakdown around his G-tube site and some mild cellulitis. The above needs further care to ensure healing. Nutritional support. Wash G-tube site daily with normal saline. Apply skin protectant apply foam dressing applied G-tube site dressing as needed Wash sacral wound daily with normal saline. Apply skin protectant. Apply foam dressing. Daily and as needed saturation. Ensure patient being changed with incontinence Offload heels with pillows and heel protectors as needed Pillow between the thighs and skin protectant as well as foam dressing on the scrotum wound Air mattress Turn every 2 hours We will follow with recommendations Russell Lopez Dec 10, 2018 18:42
--- NOTE | 2018-12-10 19:27 | NUR ---
HAND-OFF: Report given to CANDI Vera.
--- NOTE | 2018-12-10 19:44 | NUR ---
NURSE NOTES: Patient in bed, awake, confused, unable to make simple needs known. Respiration is even and unlabored. No s/s of pain or discomfort noted. Skin is warm and dry to touch, noted with dressing, intact. Abdomen is soft and non distended. Kenny catheter noted and nephrostomy noted. GT noted, feeding is infusing as ordered. Call light is at bedside. Will continue plan of care.
[2018-12-10 20:00] VITALS: BP 126/77
[2018-12-10] MEDS: Sennosides 8.6mg tab GT SCH (22:04)
[2018-12-11] VITALS: BP 134/80
--- NOTE | 2018-12-11 01:04 | NUR ---
NURSE NOTES: Report given to Sharda Covington. Patient in bed, awake, call light is at bedside.
--- NOTE | 2018-12-11 01:05 | NUR ---
NURSE NOTES: Received patient in no apparent distress. A&OX1. IV site patent and intact. Supra pubic cath noted, draining well by gravity, yellow urine noted. G-tube feeding on, running Glucerna 1.5 55cc/hr, elevated HOB. Bed in lowest position. Call light within reach. Will continue to monitor.
[2018-12-11 04:00] VITALS: BP 136/76
[2018-12-11 06:23] LABS: BASOPHILS % (AUTO) 2.2 % (0.0-2.0); EOSINOPHILS % (AUTO) 7.4 % (0.0-3.0); HEMATOCRIT 37.9 % (42.0-52.0); LYMPHOCYTES % (AUTO) 42.1 % (20.0-45.0); MEAN CORPUSCULAR VOLUME 94 FL (80-99); MONOCYTES % (AUTO) 7.2 % (1.0-10.0); NEUTROPHILS % (AUTO) 41.1 % (45.0-75.0); PLATELET COUNT 204 K/UL (150-450); RED BLOOD COUNT 4.02 M/UL (4.70-6.10); RED CELL DISTRIBUTION WIDTH 18.1 % (11.6-14.8); WHITE BLOOD COUNT 7.2 K/UL (4.8-10.8)
[2018-12-11 06:39] LABS: ANION GAP 8 mmol/L (5-15); BLOOD UREA NITROGEN 20 mg/dL (7-18); CALCIUM 8.4 MG/DL (8.5-10.1); CARBON DIOXIDE 27 MMOL/L (21-32); CHLORIDE 112 MMOL/L (98-107); CREATININE 0.7 MG/DL (0.55-1.30); POTASSIUM 4.2 MMOL/L (3.5-5.1); SODIUM 147 MMOL/L (136-145)
[2018-12-11 07:29] LABS: ALANINE AMINOTRANSFERASE 40 U/L (12-78); ALBUMIN 2.8 G/DL (3.4-5.0); ALKALINE PHOSPHATASE 63 U/L (46-116); ASPARTATE AMINO TRANSFERASE 34 U/L (15-37); BILIRUBIN,DIRECT < 0.1 MG/DL (0.0-0.3); BILIRUBIN,TOTAL 0.2 MG/DL (0.2-1.0); PHOSPHORUS 2.2 MG/DL (2.5-4.9)
--- NOTE | 2018-12-11 07:34 | NUR ---
HAND-OFF: Report given to Day CHRISTOPHER.
--- NOTE | 2018-12-11 07:50 | NUR ---
NURSE NOTES: received report from CANDI Covington. patient in bed. alert. disoriented. limited verbal communication. no respiratory distress noted on room air. no pain at this time. GTF glucerna 1.5 running @55/hr. no residual. IV on RAC saline lock intact. supra pubic cath draining. yellow. clear.contact isolation. PPE at all times. bed in the lowest position. HOB at all times. call light within reach. alarm on . will continue to provide plan of care.
[2018-12-11 08:00] VITALS: BP 113/80
--- NOTE | 2018-12-11 08:55 | Nephrology Progress Note ---
Assessment/Plan Problem List: (1) Hypernatremia Assessment: dehydration (2) Gastrostomy tube dependent (3) Obstructive uropathy (4) Suprapubic catheter (5) History of CVA (cerebrovascular accident) Assessment: aphasia Assessment 1) Dehydration (2) HyperNatremia (3) Suprapubic catheter (4) History of CVA (cerebrovascular accident) previous Acute renal failure- resolved previous Sepsis CVA Suprapubic cath / ? Neurogenic bladder HTN DVT UTI Plan K , mag , phos as needed stop [id number]- dehydration improved midodrine prn avoid nephrotoxics monitor renal parameters per consultants Subjective ROS Limited/Unobtainable: No Objective Objective Last 24 Hour Vital Signs Date Time Temp Pulse Resp B/P (MAP) Pulse Ox O2 Delivery O2 Flow Rate FiO2 12/11/18 08:00 96.2 84 20 113/80 (91) 96 12/11/18 04:00 97.3 85 17 136/76 (96) 96 12/11/18 00:00 97.3 87 17 134/80 (98) 96 12/10/18 22:04 80 126/77 12/10/18 21:00 Room Air 12/10/18 20:00 97.2 80 17 126/77 (93) 99 12/10/18 16:00 98.0 83 20 123/74 (90) 97 12/10/18 09:00 Room Air Intake and Output 12/10/18 12/11/18 18:59 06:59 Intake Total 760 ml 485 ml Output Total 800 ml Balance 760 ml -315 ml Intake Free Water 100 ml 100 ml Tube Feeding 660 ml 385 ml Output Urine Total 800 ml # Bowel Movements 1 Laboratory Tests 12/11/18 04:35: White Blood Count 7.2, Red Blood Count 4.02L, Hemoglobin 12.0L, Hematocrit 37.9L , Mean Corpuscular Volume 94, Mean Corpuscular Hemoglobin 29.9, Mean Corpuscular Hemoglobin Concent 31.8L, Red Cell Distribution Width 18.1H, Platelet Count 204, Mean Platelet Volume 9.4, Neutrophils (%) (Auto) 41.1L, Lymphocytes (%) (Auto) 42.1, Monocytes (%) (Auto) 7.2, Eosinophils (%) (Auto) 7.4H, Basophils (%) (Auto) 2.2H, Sodium Level 147H, Potassium Level 4.2, Chloride Level 112H, Carbon Dioxide Level 27, Anion Gap 8, Blood Urea Nitrogen 20H, Creatinine 0.7, Estimat Glomerular Filtration Rate > 60, Glucose Level 107H , Calcium Level 8.4L, Phosphorus Level 2.2L, Magnesium Level 2.4, Total Bilirubin 0.2, Direct Bilirubin < 0.1, Aspartate Amino Transf (AST/SGOT) 34, Alanine Aminotransferase (ALT/SGPT) 40, Alkaline Phosphatase 63, Total Protein 8.0, Albumin 2.8L Height (Feet): 5 Height (Inches): 11.00 Weight (Pounds): 200 General Appearance: no apparent distress Cardiovascular: normal rate Respiratory/Chest: decreased breath sounds Abdomen: distended Genitourinary/Rectal: other - supra pubic cath Objective no change Prnaav Grady MD Dec 11, 2018 08:55
[2018-12-11] MEDS: Carvedilol 6.25mg Tab GT SCH ×2 (08:56→20:28)
[2018-12-11] MEDS: Cefepime HCl 1 GM in D5W 55 ML IVPB SCH ×2 (08:58→20:27)
[2018-12-11] MEDS: Heparin 5000 units/ml inj SUBQ SCH ×2 (08:58→20:31)
[2018-12-11] MEDS: Nystatin Powder 100,000 units/gm 15gm TOPIC SCH ×3 (09:00→17:21)
--- NOTE | 2018-12-11 10:08 | General Progress Note ---
Assessment/Plan Problem List: (1) Malfunction of nephrostomy tube ICD Codes: T83.098A - Other mechanical complication of other urinary catheter, initial encounter SNOMED: 416656044 (2) UTI (urinary tract infection) ICD Codes: N39.0 - Urinary tract infection, site not specified SNOMED: 23668951 (3) Hypernatremia ICD Codes: E87.0 - Hyperosmolality and hypernatremia SNOMED: 647423597 (4) Obstructive uropathy ICD Codes: N13.9 - Obstructive and reflux uropathy, unspecified SNOMED: 3490454 (5) Anemia ICD Codes: D64.9 - Anemia, unspecified SNOMED: 463738459 (6) COPD (chronic obstructive pulmonary disease) ICD Codes: J44.9 - Chronic obstructive pulmonary disease, unspecified SNOMED: 80263203 (7) Diabetes mellitus ICD Codes: E11.9 - Type 2 diabetes mellitus without complications SNOMED: 04218379 (8) History of CVA (cerebrovascular accident) ICD Codes: Z86.73 - Personal history of transient ischemic attack (TIA), and cerebral infarction without residual deficits SNOMED: 213994735 (9) History of DVT (deep vein thrombosis) ICD Codes: Z86.718 - Personal history of other venous thrombosis and embolism SNOMED: 907588924 Status: stable, progressing Assessment/Plan: ot pt diet abx neph uro f/u cbc bmp am brotman aru eval Subjective Constitutional: Reports: weakness Allergies: Coded Allergies: VANCOMYCIN (Verified Allergy, Mild, Redness , 10/29/18) CIPROFLOXACIN (Verified Allergy, Unknown, 08/23/15) All Systems: reviewed and negative except above Subjective calm in bed Objective Last 24 Hour Vital Signs Date Time Temp Pulse Resp B/P (MAP) Pulse Ox O2 Delivery O2 Flow Rate FiO2 12/11/18 08:56 84 113/80 12/11/18 08:00 96.2 84 20 113/80 (91) 96 12/11/18 04:00 97.3 85 17 136/76 (96) 96 12/11/18 00:00 97.3 87 17 134/80 (98) 96 12/10/18 22:04 80 126/77 12/10/18 21:00 Room Air 12/10/18 20:00 97.2 80 17 126/77 (93) 99 12/10/18 16:00 98.0 83 20 123/74 (90) 97 Intake and Output 12/10/18 12/11/18 19:00 07:00 Intake Total 705 ml 485 ml Output Total 800 ml Balance 705 ml -315 ml Intake Free Water 100 ml 100 ml Tube Feeding 605 ml 385 ml Output Urine Total 800 ml # Bowel Movements 1 Laboratory Tests 12/11/18 04:35: White Blood Count 7.2, Red Blood Count 4.02L, Hemoglobin 12.0L, Hematocrit 37.9L , Mean Corpuscular Volume 94, Mean Corpuscular Hemoglobin 29.9, Mean Corpuscular Hemoglobin Concent 31.8L, Red Cell Distribution Width 18.1H, Platelet Count 204, Mean Platelet Volume 9.4, Neutrophils (%) (Auto) 41.1L, Lymphocytes (%) (Auto) 42.1, Monocytes (%) (Auto) 7.2, Eosinophils (%) (Auto) 7.4H, Basophils (%) (Auto) 2.2H, Sodium Level 147H, Potassium Level 4.2, Chloride Level 112H, Carbon Dioxide Level 27, Anion Gap 8, Blood Urea Nitrogen 20H, Creatinine 0.7, Estimat Glomerular Filtration Rate > 60, Glucose Level 107H , Calcium Level 8.4L, Phosphorus Level 2.2L, Magnesium Level 2.4, Total Bilirubin 0.2, Direct Bilirubin < 0.1, Aspartate Amino Transf (AST/SGOT) 34, Alanine Aminotransferase (ALT/SGPT) 40, Alkaline Phosphatase 63, Total Protein 8.0, Albumin 2.8L Height (Feet): 5 Height (Inches): 11.00 Weight (Pounds): 200 General Appearance: lethargic EENT: normal ENT inspection Neck: normal alignment Cardiovascular: normal peripheral pulses, normal rate, regular rhythm Respiratory/Chest: chest wall non-tender, lungs clear, normal breath sounds Abdomen: normal bowel sounds, non tender, soft Extremities: normal inspection Edema: no edema noted Arm (L), no edema noted Arm (R), no edema noted Leg (L), no edema noted Leg (R), no edema noted Pedal (L), no edema noted Pedal (R), no edema noted Generalized Neurologic: motor weakness Skin: normal pigmentation, warm/dry Jaylen Bear DO Dec 11, 2018 10:08
--- NOTE | 2018-12-11 10:08 | NUR ---
NURSE NOTES: paged dr Mo re consult for obstructed nephrostomy, awaiting call back, paged via office (aurea curtis) Addendum: 12/11/18 at 1252 by EDWARD ELLINGTON RN received a call from dr Mo national secretary, stating that said that he doesnt do that and it's IR (interventional radiology), per WILLIAM, he will have giovanni from rad dept call me to put the right order.
[2018-12-11 12:00] VITALS: BP 121/70
--- NOTE | 2018-12-11 13:06 | NUR ---
CASE MANAGEMENT: REVIEW 12/11/2018 SI:OBSTRUCTED NEPHROSTOMY TUBE. T 96.2 HR 84 RR 20 B/P 113/80 SATS 96% ON RA NA 147 CL 112 BUN 20 GLU 107 CA 8.4 IS: COREG GT Q12H CEFEPIME IV Q12H PREVACID GT BID MED/SURG STATUS DCP: PATIENT TO BE DISCHARGED TO SNF ONCE MEDICALLY CLEARED.
--- NOTE | 2018-12-11 13:38 | Pulmonology Progress Note ---
Assessment/Plan Problems: (1) Suprapubic catheter dysfunction (2) History of DVT (deep vein thrombosis) (3) Suprapubic catheter (4) Obstructive hydrocephalus (5) COPD (chronic obstructive pulmonary disease) (6) Diabetes mellitus (7) Aphasia (8) Feeding by G-tube (9) History of CVA (cerebrovascular accident) Assessment/Plan awaiting for interventional Radiology to do a nephrogram. awake, looks comfortable urology evaluation continue feeding symptomatic treatment Subjective ROS Limited/Unobtainable: No HEENT: Repors: no symptoms Respiratory: Reports: no symptoms Allergies: Coded Allergies: VANCOMYCIN (Verified Allergy, Mild, Redness , 10/29/18) CIPROFLOXACIN (Verified Allergy, Unknown, 08/23/15) Objective Last 24 Hour Vital Signs Date Time Temp Pulse Resp B/P (MAP) Pulse Ox O2 Delivery O2 Flow Rate FiO2 12/11/18 12:00 96.2 79 20 121/70 (87) 98 12/11/18 09:00 Room Air 12/11/18 08:56 84 113/80 12/11/18 08:00 96.2 84 20 113/80 (91) 96 12/11/18 04:00 97.3 85 17 136/76 (96) 96 12/11/18 00:00 97.3 87 17 134/80 (98) 96 12/10/18 22:04 80 126/77 12/10/18 21:00 Room Air 12/10/18 20:00 97.2 80 17 126/77 (93) 99 12/10/18 16:00 98.0 83 20 123/74 (90) 97 Intake and Output 12/10/18 12/11/18 19:00 07:00 Intake Total 705 ml 485 ml Output Total 800 ml Balance 705 ml -315 ml Intake Free Water 100 ml 100 ml Tube Feeding 605 ml 385 ml Output Urine Total 800 ml # Bowel Movements 1 General Appearance: WD/WN HEENT: normocephalic, atraumatic Respiratory/Chest: lungs clear, normal breath sounds Cardiovascular: normal rate, no gallop/murmur Abdomen: soft, non tender, no scars Extremities: no cyanosis Skin: no rash Laboratory Tests 12/11/18 04:35: White Blood Count 7.2, Red Blood Count 4.02L, Hemoglobin 12.0L, Hematocrit 37.9L , Mean Corpuscular Volume 94, Mean Corpuscular Hemoglobin 29.9, Mean Corpuscular Hemoglobin Concent 31.8L, Red Cell Distribution Width 18.1H, Platelet Count 204, Mean Platelet Volume 9.4, Neutrophils (%) (Auto) 41.1L, Lymphocytes (%) (Auto) 42.1, Monocytes (%) (Auto) 7.2, Eosinophils (%) (Auto) 7.4H, Basophils (%) (Auto) 2.2H, Sodium Level 147H, Potassium Level 4.2, Chloride Level 112H, Carbon Dioxide Level 27, Anion Gap 8, Blood Urea Nitrogen 20H, Creatinine 0.7, Estimat Glomerular Filtration Rate > 60, Glucose Level 107H , Calcium Level 8.4L, Phosphorus Level 2.2L, Magnesium Level 2.4, Total Bilirubin 0.2, Direct Bilirubin < 0.1, Aspartate Amino Transf (AST/SGOT) 34, Alanine Aminotransferase (ALT/SGPT) 40, Alkaline Phosphatase 63, Total Protein 8.0, Albumin 2.8L Current Medications Medications (Trade) Dose Ordered Sig/Fab Route PRN Reason Start Time Stop Time Status Last Admin Dose Admin Bisacodyl (Dulcolax) 10 mg DAILYPRN PRN RECTAL Constipation 12/08/18 18:00 01/07/19 17:59 Carvedilol (Coreg) 6.25 mg EVERY 12 HOURS GT 12/08/18 21:00 01/05/19 20:59 12/11/18 08:56 Cefepime HCl 1 gm/ Dextrose 55 ml @ 110 mls/hr EVERY 12 HOURS IVPB 12/10/18 09:00 12/17/18 08:59 12/11/18 08:58 Dextrose (Dextrose 50%) 25 ml Q30M PRN IV Hypoglycemia 12/08/18 17:45 01/05/19 13:44 Dextrose (Dextrose 50%) 50 ml Q30M PRN IV Hypoglycemia 12/08/18 18:00 01/07/19 17:59 Heparin Sodium (Porcine) (Heparin 5000 units/ml) 5,000 units EVERY 12 HOURS SUBQ 12/08/18 21:00 01/05/19 20:59 12/11/18 08:58 Lansoprazole (Prevacid) 30 mg BID GT 12/09/18 09:00 01/08/19 08:59 12/11/18 08:56 Lorazepam (Ativan 2mg/ml 1ml) 0.5 mg Q4H PRN IV For Anxiety 12/08/18 17:45 12/13/18 13:44 Morphine Sulfate (Morphine Sulfate) 1 mg Q4H PRN IVP For Pain 12/08/18 17:45 12/13/18 13:44 Nystatin (Nystop Powder) 1 applic THREE TIMES A DAY TOPIC 12/09/18 09:00 01/08/19 08:59 12/11/18 09:00 Ondansetron HCl (Zofran) 4 mg Q6H PRN IVP Nausea & Vomiting 12/08/18 18:00 01/05/19 17:59 Sennosides (Senokot) 17.2 mg QHS GT 12/08/18 21:00 01/06/19 20:59 12/10/18 22:04 Rigoberto Bryant MD Dec 11, 2018 13:38
--- NOTE | 2018-12-11 14:07 | NUR ---
RD ASSESSMENT & RECOMMENDATIONS SEE CARE ACTIVITY FOR COMPLETE ASSESSMENT DAILY ESTIMATED NEEDS: Needs based on Sepsis, wounds/ 76.7kg abw 25-30 kcals/kg 1547-9982 total kcals 1.25-2 g protein/kg 96-153 g total protein 25-30 mL/kg 4472-4805 total fluid mLs NUTRITION DIAGNOSIS: 1) Swallowing difficulty related to dysphagia s/p cva as evidenced by pt dependent on PEG for all nutrition and hydration needs. 2) Increased pro and micronutrient needs r/t wound healing as evidenced by partial-thickness sacral and right buttock, w/ breakdown of the skin around the right buttock, near full-thickness skin breakdown of his scrotal area with some scrotal cellulitis. CURRENT TF:Glucerna 1.5 @55 ENTERAL NUTRITION RECOMMENDATIONS: Glucerna 1.5 @ 55ml/hr x 24 hrs to provide 1320ml, 1980kcal, 109g prot, 1002ml free water * Rec TF change to Glucerna 1.5. * Start @35ml/hr for 6 hrs, advance as tolerated 10ml/hr q4-6 hrs to goal. * HOB over 30 degrees/ water flush per MD. ADDITIONAL RECOMMENDATIONS: 1) Calibrated bedscale wt for accurate CBW 2) Monitor lytes, replete as needed (low phos 2.2) 3) Consider NISS/ accuchecks w/ TF for BG control- h/o DM 4) Rec wound eval (wound photos noted) Add JASMIN BID via GT + Vit C 250mg BID
--- NOTE | 2018-12-11 14:24 | Surgery Progress Note ---
Surgery Progress Note Subjective Additional Comments no acute events comfortable stable exam unchanged. labs noted Objective Last 24 Hour Vital Signs Date Time Temp Pulse Resp B/P (MAP) Pulse Ox O2 Delivery O2 Flow Rate FiO2 12/11/18 12:00 96.2 79 20 121/70 (87) 98 12/11/18 09:00 Room Air 12/11/18 08:56 84 113/80 12/11/18 08:00 96.2 84 20 113/80 (91) 96 12/11/18 04:00 97.3 85 17 136/76 (96) 96 12/11/18 00:00 97.3 87 17 134/80 (98) 96 12/10/18 22:04 80 126/77 12/10/18 21:00 Room Air 12/10/18 20:00 97.2 80 17 126/77 (93) 99 12/10/18 16:00 98.0 83 20 123/74 (90) 97 I&O Intake and Output 12/10/18 12/11/18 19:00 07:00 Intake Total 705 ml 485 ml Output Total 800 ml Balance 705 ml -315 ml Intake Free Water 100 ml 100 ml Tube Feeding 605 ml 385 ml Output Urine Total 800 ml # Bowel Movements 1 Dressing: dry Wound: clean Cardiovascular: RSR Respiratory: clear Abdomen: soft, non-tender, present bowel sounds, other, non-distended Extremities: no edema, no cyanosis Laboratory Tests Test 12/11/18 04:35 White Blood Count 7.2 K/UL (4.8-10.8) Red Blood Count 4.02 M/UL (4.70-6.10) L Hemoglobin 12.0 G/DL (14.2-18.0) L Hematocrit 37.9 % (42.0-52.0) L Mean Corpuscular Volume 94 FL (80-99) Mean Corpuscular Hemoglobin 29.9 PG (27.0-31.0) Mean Corpuscular Hemoglobin Concent 31.8 G/DL (32.0-36.0) L Red Cell Distribution Width 18.1 % (11.6-14.8) H Platelet Count 204 K/UL (150-450) Mean Platelet Volume 9.4 FL (6.5-10.1) Neutrophils (%) (Auto) 41.1 % (45.0-75.0) L Lymphocytes (%) (Auto) 42.1 % (20.0-45.0) Monocytes (%) (Auto) 7.2 % (1.0-10.0) Eosinophils (%) (Auto) 7.4 % (0.0-3.0) H Basophils (%) (Auto) 2.2 % (0.0-2.0) H Sodium Level 147 MMOL/L (136-145) H Potassium Level 4.2 MMOL/L (3.5-5.1) Chloride Level 112 MMOL/L (98-107) H Carbon Dioxide Level 27 MMOL/L (21-32) Anion Gap 8 mmol/L (5-15) Blood Urea Nitrogen 20 mg/dL (7-18) H Creatinine 0.7 MG/DL (0.55-1.30) Estimat Glomerular Filtration Rate > 60 mL/min (>60) Glucose Level 107 MG/DL (74-106) H Calcium Level 8.4 MG/DL (8.5-10.1) L Phosphorus Level 2.2 MG/DL (2.5-4.9) L Magnesium Level 2.4 MG/DL (1.8-2.4) Total Bilirubin 0.2 MG/DL (0.2-1.0) Direct Bilirubin < 0.1 MG/DL (0.0-0.3) Aspartate Amino Transf (AST/SGOT) 34 U/L (15-37) Alanine Aminotransferase (ALT/SGPT) 40 U/L (12-78) Alkaline Phosphatase 63 U/L (46-116) Total Protein 8.0 G/DL (6.4-8.2) Albumin 2.8 G/DL (3.4-5.0) L Plan Problems: (1) Malfunction of nephrostomy tube Assessment & Plan: prior nephrostomy tube for obstructive stone now obstructed tube Urology eval and input cont abx (2) Fecal impaction Assessment & Plan: needs bowel regimen with proper diet DAILY ESTIMATED NEEDS: Needs based on Sepsis/ 76.7kg abw 25-30 kcals/kg 7451-7394 total kcals 1-2 g protein/kg 77-153 g total protein 25-30 mL/kg 2490-7107 total fluid mLs NUTRITION DIAGNOSIS: 1) Swallowing difficulty related to dysphagia s/p cva as evidenced by pt dependent on PEG for all nutrition and hydration needs. CURRENT TF: Jevity 1.2 @30ml ENTERAL NUTRITION RECOMMENDATIONS --->>> Glucerna 1.5 @ 55ml/hr x 24 hrs to provide 1320ml, 1980kcal, 109g prot, 1002ml free water * Rec TF change to Glucerna 1.5. * Start @35ml/hr for 6 hrs, advance as tolerated 10ml/hr q4-6 hrs to goal. * HOB over 30 degrees/ water flush per MD. ----- ADDITIONAL RECOMMENDATIONS: 1) Calibrated bedscale wt for accurate CBW 2) Monitor lytes, replete as needed 3) Consider NISS/ accuchecks w/ TF for BG control- h/o DM 4) Rec wound eval / coccyx wound F/up w/ wound eval (3) Cellulitis of scrotum Assessment & Plan: see below (4) Decubitus skin ulcer Assessment & Plan: Patient presents with multiple skin issues. Patient identified to have partial-thickness sacral and right buttock pressure injury and abrasions. He has breakdown of the skin around the right buttock as well. Some of this seemingly from pressure others potentially from incontinence associated dermatitis. No foul order, no significant cellulitis in the sacral buttock area, periwound intact. Furthermore patient presents with a near full- thickness skin breakdown of his scrotal area with some scrotal cellulitis. Furthermore patient has skin breakdown around his G-tube site and some mild cellulitis. The above needs further care to ensure healing. Nutritional support. Wash G-tube site daily with normal saline. Apply skin protectant apply foam dressing applied G-tube site dressing as needed Wash sacral wound daily with normal saline. Apply skin protectant. Apply foam dressing. Daily and as needed saturation. Ensure patient being changed with incontinence Offload heels with pillows and heel protectors as needed Pillow between the thighs and skin protectant as well as foam dressing on the scrotum wound Air mattress Turn every 2 hours We will follow with recommendations Russell Lopez Dec 11, 2018 14:24
--- NOTE | 2018-12-11 14:51 | Infectious Diseases Prog Note ---
Assessment/Plan Assessment/Plan Assessment: Afebrile nl WBC Non functional R Nephrostomy and pyuria/bacteriuria- will treat -u/a wbc tnct, Ucx P. stuarti (S Ceftriaxone, Zosyn) -12/08 CT abd/p: Interval resolution of the diffuse small bowel distention. No evidence of small bowel obstruction and this exam. Moderate to large volume stool in the rectosigmoid region, which may suggest impaction or constipation. No significant fecal retention in the proximal colon. Percutaneous nephrostomy tube with the tip coiled in the right renal pelvis. No hydronephrosis or hydroureter. Percutaneous cystostomy catheter, with expected positioning.. Percutaneous gastrostomy tube in place, with expected positioning. Unchanged appearance of scattered hepatic and left renal cysts. -11/08 SP R nephrostomy --findings: small amount slightly purulent urine sent for C and S. Intraprocedural images demonstrate dilated right renal collecting system. Multiple filling defects are compatible with a calculi demonstrated on recent CT scan Hx of recent Septic shock- SP -MRSA/ P Mirabilis, E. fecalis bacteremia- m/l source UTI from obstructive stone Hx of recent UTI ucx >100k P. mirabilis (Previously reporte as onlyS Genta, Ertapenem, Zosyn; now hs been updated to R Nitrofurantoin and otherwise S) Hx of recent Pneum -sp cx PsA (neri S), MRSA TCP , SP CVA/TIA Dm2 CKD suprapubic catheter DVT hypertensive heart disease [place] resident Plan: -Continue Cefepime #3/ for bacteriuria and non functioning Nephrostomy tube - 11/19 SP Zyvox and Cefepime -11/02 SP Meropenem #4 -11/01 Sp Amikacin #4 , IV Vancomycin #3 -10/29 SP Ertapenem #1, IV Vancomycin x1 -f/u cx ( Bl ,Ur ) -Monitor CBC/CMP, temperatures -aspiration precautions -Uro f/u Thank you for the consult , we will follow Subjective Allergies: Coded Allergies: VANCOMYCIN (Verified Allergy, Mild, Redness , 10/29/18) CIPROFLOXACIN (Verified Allergy, Unknown, 08/23/15) Subjective afebrile no leukocytosis Bcx NTD Objective Vital Signs Last 24 Hour Vital Signs Date Time Temp Pulse Resp B/P (MAP) Pulse Ox O2 Delivery O2 Flow Rate FiO2 12/11/18 12:00 96.2 79 20 121/70 (87) 98 12/11/18 09:00 Room Air 12/11/18 08:56 84 113/80 12/11/18 08:00 96.2 84 20 113/80 (91) 96 12/11/18 04:00 97.3 85 17 136/76 (96) 96 12/11/18 00:00 97.3 87 17 134/80 (98) 96 12/10/18 22:04 80 126/77 12/10/18 21:00 Room Air 12/10/18 20:00 97.2 80 17 126/77 (93) 99 12/10/18 16:00 98.0 83 20 123/74 (90) 97 Height (Feet): 5 Height (Inches): 11.00 Weight (Pounds): 200 Objective General Appearance: WD/WN, no apparent distress Lines, tubes and drains: peripheral, central line, gtube HEENT: normocephalic, atraumatic, anicteric Neck: non-tender, normal alignment Respiratory/Chest: chest wall non-tender, lungs clear Cardiovascular/Chest: normal peripheral pulses, normal rate Abdomen: normal bowel sounds, PEG + : Rt Nephrostomy +( empty bag) , Suprapubic Cath Extremities: contracted Laboratory Tests Test 12/11/18 04:35 White Blood Count 7.2 K/UL (4.8-10.8) Red Blood Count 4.02 M/UL (4.70-6.10) L Hemoglobin 12.0 G/DL (14.2-18.0) L Hematocrit 37.9 % (42.0-52.0) L Mean Corpuscular Volume 94 FL (80-99) Mean Corpuscular Hemoglobin 29.9 PG (27.0-31.0) Mean Corpuscular Hemoglobin Concent 31.8 G/DL (32.0-36.0) L Red Cell Distribution Width 18.1 % (11.6-14.8) H Platelet Count 204 K/UL (150-450) Mean Platelet Volume 9.4 FL (6.5-10.1) Neutrophils (%) (Auto) 41.1 % (45.0-75.0) L Lymphocytes (%) (Auto) 42.1 % (20.0-45.0) Monocytes (%) (Auto) 7.2 % (1.0-10.0) Eosinophils (%) (Auto) 7.4 % (0.0-3.0) H Basophils (%) (Auto) 2.2 % (0.0-2.0) H Sodium Level 147 MMOL/L (136-145) H Potassium Level 4.2 MMOL/L (3.5-5.1) Chloride Level 112 MMOL/L (98-107) H Carbon Dioxide Level 27 MMOL/L (21-32) Anion Gap 8 mmol/L (5-15) Blood Urea Nitrogen 20 mg/dL (7-18) H Creatinine 0.7 MG/DL (0.55-1.30) Estimat Glomerular Filtration Rate > 60 mL/min (>60) Glucose Level 107 MG/DL (74-106) H Calcium Level 8.4 MG/DL (8.5-10.1) L Phosphorus Level 2.2 MG/DL (2.5-4.9) L Magnesium Level 2.4 MG/DL (1.8-2.4) Total Bilirubin 0.2 MG/DL (0.2-1.0) Direct Bilirubin < 0.1 MG/DL (0.0-0.3) Aspartate Amino Transf (AST/SGOT) 34 U/L (15-37) Alanine Aminotransferase (ALT/SGPT) 40 U/L (12-78) Alkaline Phosphatase 63 U/L (46-116) Total Protein 8.0 G/DL (6.4-8.2) Albumin 2.8 G/DL (3.4-5.0) L Current Medications Medications (Trade) Dose Ordered Sig/Fab Route PRN Reason Start Time Stop Time Status Last Admin Dose Admin Bisacodyl (Dulcolax) 10 mg DAILYPRN PRN RECTAL Constipation 12/08/18 18:00 01/07/19 17:59 Carvedilol (Coreg) 6.25 mg EVERY 12 HOURS GT 12/08/18 21:00 01/05/19 20:59 12/11/18 08:56 Cefepime HCl 1 gm/ Dextrose 55 ml @ 110 mls/hr EVERY 12 HOURS IVPB 12/10/18 09:00 12/17/18 08:59 12/11/18 08:58 Dextrose (Dextrose 50%) 25 ml Q30M PRN IV Hypoglycemia 12/08/18 17:45 01/05/19 13:44 Dextrose (Dextrose 50%) 50 ml Q30M PRN IV Hypoglycemia 12/08/18 18:00 01/07/19 17:59 Heparin Sodium (Porcine) (Heparin 5000 units/ml) 5,000 units EVERY 12 HOURS SUBQ 12/08/18 21:00 01/05/19 20:59 12/11/18 08:58 Lansoprazole (Prevacid) 30 mg BID GT 12/09/18 09:00 01/08/19 08:59 12/11/18 08:56 Lorazepam (Ativan 2mg/ml 1ml) 0.5 mg Q4H PRN IV For Anxiety 12/08/18 17:45 12/13/18 13:44 Morphine Sulfate (Morphine Sulfate) 1 mg Q4H PRN IVP For Pain 12/08/18 17:45 12/13/18 13:44 Nystatin (Nystop Powder) 1 applic THREE TIMES A DAY TOPIC 12/09/18 09:00 01/08/19 08:59 12/11/18 13:00 Ondansetron HCl (Zofran) 4 mg Q6H PRN IVP Nausea & Vomiting 12/08/18 18:00 01/05/19 17:59 Sennosides (Senokot) 17.2 mg QHS GT 12/08/18 21:00 01/06/19 20:59 12/10/18 22:04 Dorothea Macario M.D. Dec 11, 2018 14:51
[2018-12-11 16:00] VITALS: BP 136/78
--- NOTE | 2018-12-11 19:34 | NUR ---
HAND-OFF: Report given to CANDI Vera.
--- NOTE | 2018-12-11 19:47 | NUR ---
NURSE NOTES: Patient in bed, awake, confused, unable to make simple needs known. Bed in low and locked position. Kept clean and comfortable. Noted with suprapubic catheter and nephrostomy tube. Suprapubic catheter draining. Skin is warm and dry to touch. Noted with dressings, intact. No s/s of pain or discomfort noted. Respiration is even and unlabored. Gt feeding noted, infusing as ordered. Call light is at bedside. Will continue plan of care.
[2018-12-11 20:00] VITALS: BP 134/91
[2018-12-11] MEDS: Sennosides 8.6mg tab GT SCH (20:28)
[2018-12-12] VITALS (11 sets, daily range): BP systolic 117–150; BP diastolic 79–100
[2018-12-12 06:16] LABS: BASOPHILS % (AUTO) 1.5 % (0.0-2.0); EOSINOPHILS % (AUTO) 5.6 % (0.0-3.0); HEMATOCRIT 40.8 % (42.0-52.0); MEAN CORPUSCULAR VOLUME 93 FL (80-99); MONOCYTES % (AUTO) 11.1 % (1.0-10.0); NEUTROPHILS % (AUTO) 38.8 % (45.0-75.0); PLATELET COUNT 216 K/UL (150-450); RED BLOOD COUNT 4.37 M/UL (4.70-6.10); WHITE BLOOD COUNT 7.2 K/UL (4.8-10.8)
[2018-12-12 06:40] LABS: ANION GAP 7 mmol/L (5-15); BLOOD UREA NITROGEN 24 mg/dL (7-18); CALCIUM 8.7 MG/DL (8.5-10.1); CARBON DIOXIDE 28 MMOL/L (21-32); CHLORIDE 110 MMOL/L (98-107); CREATININE 0.7 MG/DL (0.55-1.30); POTASSIUM 4.5 MMOL/L (3.5-5.1); SODIUM 145 MMOL/L (136-145)
--- NOTE | 2018-12-12 07:01 | NUR ---
HAND-OFF: Report given to CANDI Clark.
--- NOTE | 2018-12-12 07:25 | NUR ---
NURSE NOTES: received report from CANDI Vera. patient in bed. alert. disoriented. verbally responsive. no respiratory distress noted. no pain at this time. GTF running glucerna 1.5@55/hr HOB at all times. gt site intact. supra pubic cath draining. no output from nephrostomy. schedule for nephrostomy phyelostomy and infection today. consent in the chart. IV on RFA 20 intact. p200 ace for skin management. bed in the lowest position. call light within reach. will continue to provide plan of care.
[2018-12-12] MEDS: Cefepime HCl 1 GM in D5W 55 ML IVPB SCH ×2 (08:58→22:19)
[2018-12-12] MEDS: Carvedilol 6.25mg Tab GT SCH ×2 (09:00→22:19)
--- NOTE | 2018-12-12 09:00 | NUR ---
NURSE NOTES: RN held gtube feeding for nephrostomy pyelostomy procedure as ordered.
[2018-12-12] MEDS: Heparin 5000 units/ml inj SUBQ SCH ×3 (09:04→22:20)
[2018-12-12] MEDS: Nystatin Powder 100,000 units/gm 15gm TOPIC SCH ×3 (09:06→17:17)
[2018-12-12] MEDS ORDERED: Lidocaine 1% Plain 30 ml INJ SCH ×2 (09:45→14:00)
[2018-12-12] MEDS ORDERED: Omnipaque-300 100ml vial INJ ONE (09:45)
[2018-12-12] MEDS ORDERED: Heparin1,000 units/500ml Premix(Conc:2 units/ml) INJ ONE (09:45)
--- NOTE | 2018-12-12 11:19 | Nephrology Progress Note ---
Assessment/Plan Problem List: (1) Hypernatremia Assessment: dehydration (2) Gastrostomy tube dependent (3) Obstructive uropathy (4) Suprapubic catheter (5) History of CVA (cerebrovascular accident) Assessment: aphasia Assessment 1) Dehydration (2) HyperNatremia (3) Suprapubic catheter (4) History of CVA (cerebrovascular accident) previous Acute renal failure- resolved previous Sepsis CVA Suprapubic cath / ? Neurogenic bladder HTN DVT UTI Plan K , mag , phos as needed stop [id number]- dehydration improved midodrine prn avoid nephrotoxics monitor renal parameters per consultants Subjective ROS Limited/Unobtainable: No Objective Objective Last 24 Hour Vital Signs Date Time Temp Pulse Resp B/P (MAP) Pulse Ox O2 Delivery O2 Flow Rate FiO2 12/12/18 03:53 98.1 71 20 127/80 (96) 100 12/12/18 00:00 97.8 79 20 117/84 (95) 98 12/11/18 20:34 Room Air 12/11/18 20:28 79 134/91 12/11/18 20:00 97.2 79 20 134/91 (105) 100 12/11/18 16:00 97.7 78 20 136/78 (97) 99 12/11/18 12:00 96.2 79 20 121/70 (87) 98 Intake and Output 12/11/18 12/12/18 18:59 06:59 Intake Total 760 ml 535 ml Output Total 450 ml 700 ml Balance 310 ml -165 ml Intake Free Water 100 ml 150 ml IV Total 110 ml 55 ml Tube Feeding 550 ml 330 ml Output Urine Total 450 ml 700 ml # Voids 2 Laboratory Tests 12/12/18 05:07: White Blood Count 7.2, Red Blood Count 4.37L, Hemoglobin 13.0L, Hematocrit 40.8L , Mean Corpuscular Volume 93, Mean Corpuscular Hemoglobin 29.7, Mean Corpuscular Hemoglobin Concent 31.8L, Red Cell Distribution Width 18.0H, Platelet Count 216, Mean Platelet Volume 9.6, Neutrophils (%) (Auto) 38.8L, Lymphocytes (%) (Auto) 43.0, Monocytes (%) (Auto) 11.1H, Eosinophils (%) (Auto) 5.6H, Basophils (%) (Auto) 1.5, Sodium Level 145, Potassium Level 4.5, Chloride Level 110H, Carbon Dioxide Level 28, Anion Gap 7, Blood Urea Nitrogen 24H, Creatinine 0.7, Estimat Glomerular Filtration Rate > 60, Glucose Level 105, Calcium Level 8.7 Height (Feet): 5 Height (Inches): 11.00 Weight (Pounds): 200 General Appearance: no apparent distress Objective no change Pranav Grady MD Dec 12, 2018 11:19
--- NOTE | 2018-12-12 13:22 | Pulmonology Progress Note ---
Assessment/Plan Problems: (1) Suprapubic catheter dysfunction (2) History of DVT (deep vein thrombosis) (3) Suprapubic catheter (4) Obstructive hydrocephalus (5) COPD (chronic obstructive pulmonary disease) (6) Diabetes mellitus (7) Aphasia (8) Feeding by G-tube (9) History of CVA (cerebrovascular accident) Assessment/Plan change of nephrostomy today awake, looks comfortable urology evaluation continue feeding symptomatic treatment Subjective ROS Limited/Unobtainable: No Constitutional: Reports: no symptoms HEENT: Repors: no symptoms Respiratory: Reports: no symptoms Allergies: Coded Allergies: VANCOMYCIN (Verified Allergy, Mild, Redness , 10/29/18) CIPROFLOXACIN (Verified Allergy, Unknown, 08/23/15) Objective Last 24 Hour Vital Signs Date Time Temp Pulse Resp B/P (MAP) Pulse Ox O2 Delivery O2 Flow Rate FiO2 12/12/18 09:00 Room Air 12/12/18 03:53 98.1 71 20 127/80 (96) 100 12/12/18 00:00 97.8 79 20 117/84 (95) 98 12/11/18 20:34 Room Air 12/11/18 20:28 79 134/91 12/11/18 20:00 97.2 79 20 134/91 (105) 100 12/11/18 16:00 97.7 78 20 136/78 (97) 99 Intake and Output 12/11/18 12/12/18 19:00 07:00 Intake Total 760 ml 480 ml Output Total 450 ml 700 ml Balance 310 ml -220 ml Intake Free Water 100 ml 150 ml IV Total 110 ml 55 ml Tube Feeding 550 ml 275 ml Output Urine Total 450 ml 700 ml # Voids 2 General Appearance: WD/WN HEENT: normocephalic, atraumatic Respiratory/Chest: chest wall non-tender Cardiovascular: normal peripheral pulses, normal rate Abdomen: soft, non tender Extremities: no cyanosis Skin: no rash Laboratory Tests 12/12/18 05:07: White Blood Count 7.2, Red Blood Count 4.37L, Hemoglobin 13.0L, Hematocrit 40.8L , Mean Corpuscular Volume 93, Mean Corpuscular Hemoglobin 29.7, Mean Corpuscular Hemoglobin Concent 31.8L, Red Cell Distribution Width 18.0H, Platelet Count 216, Mean Platelet Volume 9.6, Neutrophils (%) (Auto) 38.8L, Lymphocytes (%) (Auto) 43.0, Monocytes (%) (Auto) 11.1H, Eosinophils (%) (Auto) 5.6H, Basophils (%) (Auto) 1.5, Sodium Level 145, Potassium Level 4.5, Chloride Level 110H, Carbon Dioxide Level 28, Anion Gap 7, Blood Urea Nitrogen 24H, Creatinine 0.7, Estimat Glomerular Filtration Rate > 60, Glucose Level 105, Calcium Level 8.7 Current Medications Medications (Trade) Dose Ordered Sig/Fab Route PRN Reason Start Time Stop Time Status Last Admin Dose Admin Bisacodyl (Dulcolax) 10 mg DAILYPRN PRN RECTAL Constipation 12/08/18 18:00 01/07/19 17:59 Carvedilol (Coreg) 6.25 mg EVERY 12 HOURS GT 12/08/18 21:00 01/05/19 20:59 12/11/18 20:28 Cefepime HCl 1 gm/ Dextrose 55 ml @ 110 mls/hr EVERY 12 HOURS IVPB 12/10/18 09:00 12/17/18 08:59 12/12/18 08:58 Dextrose (Dextrose 50%) 25 ml Q30M PRN IV Hypoglycemia 12/08/18 17:45 01/05/19 13:44 Dextrose (Dextrose 50%) 50 ml Q30M PRN IV Hypoglycemia 12/08/18 18:00 01/07/19 17:59 Heparin Sodium (Porcine) (Heparin 5000 units/ml) 5,000 units EVERY 12 HOURS SUBQ 12/08/18 21:00 01/05/19 20:59 12/11/18 20:31 Lansoprazole (Prevacid) 30 mg BID GT 12/09/18 09:00 01/08/19 08:59 12/12/18 08:57 Lorazepam (Ativan 2mg/ml 1ml) 0.5 mg Q4H PRN IV For Anxiety 12/08/18 17:45 12/13/18 13:44 Morphine Sulfate (Morphine Sulfate) 1 mg Q4H PRN IVP For Pain 12/08/18 17:45 12/13/18 13:44 Nystatin (Nystop Powder) 1 applic THREE TIMES A DAY TOPIC 12/09/18 09:00 01/08/19 08:59 12/12/18 09:06 Ondansetron HCl (Zofran) 4 mg Q6H PRN IVP Nausea & Vomiting 12/08/18 18:00 01/05/19 17:59 Sennosides (Senokot) 17.2 mg QHS GT 12/08/18 21:00 01/06/19 20:59 12/10/18 22:04 Rigoberto Bryant MD Dec 12, 2018 13:22
[2018-12-12] MEDS ORDERED: Heparin1,000 units/500ml Premix(Conc:2 units/ml) INJ PRN (13:52)
--- NOTE | 2018-12-12 13:58 | Pre-Procedure Note/Attestation ---
Pre-Procedure Note/Attestation Complete Prior to Procedure Planned Procedure: right Procedure Narrative: nephrostomy exchange Indications for Procedure Pre-Operative Diagnosis: obstructive uropathy Attestation I attest that I discussed the nature of the procedure; its benefits; risks and complications; and alternatives (and the risks and benefits of such alternatives ), prior to the procedure, with the patient (or the patient's legal circulation representative). I attest that, if there was a reasonable possibility of needing a blood transfusion, the patient (or the patient's legal circulation representative) was given the [facility] standardized written summary, pursuant to the [place] Blood Safety Act ([place] Health and Safety Code # 1645, as amended). I attest that I re-evaluated the patient just prior to the surgery and that there has been no change in the patient's H&P, except as documented below: Discussed by phone with pt's. daughter Harry Curtis MD Dec 12, 2018 13:58
--- NOTE | 2018-12-12 14:05 | General Progress Note ---
Assessment/Plan Problem List: (1) Malfunction of nephrostomy tube ICD Codes: T83.098A - Other mechanical complication of other urinary catheter, initial encounter SNOMED: 431496012 (2) UTI (urinary tract infection) ICD Codes: N39.0 - Urinary tract infection, site not specified SNOMED: 81564142 (3) Hypernatremia ICD Codes: E87.0 - Hyperosmolality and hypernatremia SNOMED: 979994854 (4) Obstructive uropathy ICD Codes: N13.9 - Obstructive and reflux uropathy, unspecified SNOMED: 2350735 (5) Anemia ICD Codes: D64.9 - Anemia, unspecified SNOMED: 632563173 (6) COPD (chronic obstructive pulmonary disease) ICD Codes: J44.9 - Chronic obstructive pulmonary disease, unspecified SNOMED: 38535315 (7) Diabetes mellitus ICD Codes: E11.9 - Type 2 diabetes mellitus without complications SNOMED: 63703569 (8) History of CVA (cerebrovascular accident) ICD Codes: Z86.73 - Personal history of transient ischemic attack (TIA), and cerebral infarction without residual deficits SNOMED: 625752686 (9) History of DVT (deep vein thrombosis) ICD Codes: Z86.718 - Personal history of other venous thrombosis and embolism SNOMED: 618926466 Status: stable, progressing Assessment/Plan: ot pt diet abx neph uro f/u cbc bmp am nephrostomy tube today Subjective Constitutional: Reports: weakness Allergies: Coded Allergies: VANCOMYCIN (Verified Allergy, Mild, Redness , 10/29/18) CIPROFLOXACIN (Verified Allergy, Unknown, 08/23/15) All Systems: reviewed and negative except above Subjective calm in bed Objective Last 24 Hour Vital Signs Date Time Temp Pulse Resp B/P (MAP) Pulse Ox O2 Delivery O2 Flow Rate FiO2 12/12/18 09:00 Room Air 12/12/18 03:53 98.1 71 20 127/80 (96) 100 12/12/18 00:00 97.8 79 20 117/84 (95) 98 12/11/18 20:34 Room Air 12/11/18 20:28 79 134/91 12/11/18 20:00 97.2 79 20 134/91 (105) 100 12/11/18 16:00 97.7 78 20 136/78 (97) 99 Intake and Output 9/4/19 9/5/19 19:00 07:00 Intake Total 760 ml 480 ml Output Total 450 ml 700 ml Balance 310 ml -220 ml Intake Free Water 100 ml 150 ml IV Total 110 ml 55 ml Tube Feeding 550 ml 275 ml Output Urine Total 450 ml 700 ml # Voids 2 Laboratory Tests 12/12/18 05:07: White Blood Count 7.2, Red Blood Count 4.37L, Hemoglobin 13.0L, Hematocrit 40.8L , Mean Corpuscular Volume 93, Mean Corpuscular Hemoglobin 29.7, Mean Corpuscular Hemoglobin Concent 31.8L, Red Cell Distribution Width 18.0H, Platelet Count 216, Mean Platelet Volume 9.6, Neutrophils (%) (Auto) 38.8L, Lymphocytes (%) (Auto) 43.0, Monocytes (%) (Auto) 11.1H, Eosinophils (%) (Auto) 5.6H, Basophils (%) (Auto) 1.5, Sodium Level 145, Potassium Level 4.5, Chloride Level 110H, Carbon Dioxide Level 28, Anion Gap 7, Blood Urea Nitrogen 24H, Creatinine 0.7, Estimat Glomerular Filtration Rate > 60, Glucose Level 105, Calcium Level 8.7 Height (Feet): 5 Height (Inches): 11.00 Weight (Pounds): 200 General Appearance: lethargic EENT: normal ENT inspection Neck: normal alignment Cardiovascular: normal peripheral pulses, normal rate, regular rhythm Respiratory/Chest: chest wall non-tender, lungs clear, normal breath sounds Abdomen: normal bowel sounds, non tender, soft Extremities: normal inspection Edema: no edema noted Arm (L), no edema noted Arm (R), no edema noted Leg (L), no edema noted Leg (R), no edema noted Pedal (L), no edema noted Pedal (R), no edema noted Generalized Neurologic: motor weakness Skin: normal pigmentation, warm/dry Jaylen Bear DO Dec 12, 2018 14:05
--- NOTE | 2018-12-12 14:15 | NUR ---
NURSE NOTES: patient left unit for changing nephrostomy pyelostomy procedure with stable condition. holding tube feeding since 0900. IV on RFA intact.
--- NOTE | 2018-12-12 14:22 | Infectious Diseases Prog Note ---
Assessment/Plan Assessment/Plan Assessment: Afebrile nl WBC Non functional R Nephrostomy and pyuria/bacteriuria- will treat -u/a wbc tnct, Ucx P. stuarti (S Ceftriaxone, Zosyn) -12/08 CT abd/p: Interval resolution of the diffuse small bowel distention. No evidence of small bowel obstruction and this exam. Moderate to large volume stool in the rectosigmoid region, which may suggest impaction or constipation. No significant fecal retention in the proximal colon. Percutaneous nephrostomy tube with the tip coiled in the right renal pelvis. No hydronephrosis or hydroureter. Percutaneous cystostomy catheter, with expected positioning.. Percutaneous gastrostomy tube in place, with expected positioning. Unchanged appearance of scattered hepatic and left renal cysts. -12/06 BCx neg -11/08 SP R nephrostomy --findings: small amount slightly purulent urine sent for C and S. Intraprocedural images demonstrate dilated right renal collecting system. Multiple filling defects are compatible with a calculi demonstrated on recent CT scan Hx of recent Septic shock- SP -MRSA/ P Mirabilis, E. fecalis bacteremia- m/l source UTI from obstructive stone Hx of recent UTI ucx >100k P. mirabilis (Previously reporte as onlyS Genta, Ertapenem, Zosyn; now hs been updated to R Nitrofurantoin and otherwise S) Hx of recent Pneum -sp cx PsA (neri S), MRSA TCP , SP CVA/TIA Dm2 CKD suprapubic catheter DVT hypertensive heart disease [place] resident Plan: -Continue Cefepime #/ for bacteriuria and non functioning Nephrostomy tube - 11/19 SP Zyvox and Cefepime -11/02 SP Meropenem #4 -11/01 Sp Amikacin #4 , IV Vancomycin #3 -10/29 SP Ertapenem #1, IV Vancomycin x1 -f/u cx ( Bl ,Ur ) -Monitor CBC/CMP, temperatures -aspiration precautions -Uro f/u Thank you for the consult , we will follow Subjective Allergies: Coded Allergies: VANCOMYCIN (Verified Allergy, Mild, Redness , 10/29/18) CIPROFLOXACIN (Verified Allergy, Unknown, 08/23/15) Subjective afebrile no leukocytosis Bcx Neg Objective Vital Signs Last 24 Hour Vital Signs Date Time Temp Pulse Resp B/P (MAP) Pulse Ox O2 Delivery O2 Flow Rate FiO2 12/12/18 09:00 Room Air 12/12/18 03:53 98.1 71 20 127/80 (96) 100 12/12/18 00:00 97.8 79 20 117/84 (95) 98 12/11/18 20:34 Room Air 12/11/18 20:28 79 134/91 12/11/18 20:00 97.2 79 20 134/91 (105) 100 12/11/18 16:00 97.7 78 20 136/78 (97) 99 Height (Feet): 5 Height (Inches): 11.00 Weight (Pounds): 200 Objective General Appearance: WD/WN, no apparent distress Lines, tubes and drains: peripheral, central line, gtube HEENT: normocephalic, atraumatic, anicteric Neck: non-tender, normal alignment Respiratory/Chest: chest wall non-tender, lungs clear Cardiovascular/Chest: normal peripheral pulses, normal rate Abdomen: normal bowel sounds, PEG + : Rt Nephrostomy +( empty bag) , Suprapubic Cath Extremities: contracted Laboratory Tests Test 12/12/18 05:07 White Blood Count 7.2 K/UL (4.8-10.8) Red Blood Count 4.37 M/UL (4.70-6.10) L Hemoglobin 13.0 G/DL (14.2-18.0) L Hematocrit 40.8 % (42.0-52.0) L Mean Corpuscular Volume 93 FL (80-99) Mean Corpuscular Hemoglobin 29.7 PG (27.0-31.0) Mean Corpuscular Hemoglobin Concent 31.8 G/DL (32.0-36.0) L Red Cell Distribution Width 18.0 % (11.6-14.8) H Platelet Count 216 K/UL (150-450) Mean Platelet Volume 9.6 FL (6.5-10.1) Neutrophils (%) (Auto) 38.8 % (45.0-75.0) L Lymphocytes (%) (Auto) 43.0 % (20.0-45.0) Monocytes (%) (Auto) 11.1 % (1.0-10.0) H Eosinophils (%) (Auto) 5.6 % (0.0-3.0) H Basophils (%) (Auto) 1.5 % (0.0-2.0) Sodium Level 145 MMOL/L (136-145) Potassium Level 4.5 MMOL/L (3.5-5.1) Chloride Level 110 MMOL/L (98-107) H Carbon Dioxide Level 28 MMOL/L (21-32) Anion Gap 7 mmol/L (5-15) Blood Urea Nitrogen 24 mg/dL (7-18) H Creatinine 0.7 MG/DL (0.55-1.30) Estimat Glomerular Filtration Rate > 60 mL/min (>60) Glucose Level 105 MG/DL (74-106) Calcium Level 8.7 MG/DL (8.5-10.1) Current Medications Medications (Trade) Dose Ordered Sig/Fab Route PRN Reason Start Time Stop Time Status Last Admin Dose Admin Bisacodyl (Dulcolax) 10 mg DAILYPRN PRN RECTAL Constipation 12/08/18 18:00 01/07/19 17:59 Carvedilol (Coreg) 6.25 mg EVERY 12 HOURS GT 12/08/18 21:00 01/05/19 20:59 12/11/18 20:28 Cefepime HCl 1 gm/ Dextrose 55 ml @ 110 mls/hr EVERY 12 HOURS IVPB 12/10/18 09:00 12/17/18 08:59 12/12/18 08:58 Dextrose (Dextrose 50%) 25 ml Q30M PRN IV Hypoglycemia 12/08/18 17:45 01/05/19 13:44 Dextrose (Dextrose 50%) 50 ml Q30M PRN IV Hypoglycemia 12/08/18 18:00 01/07/19 17:59 Heparin Sodium (Porcine) (Heparin 5000 units/ml) 5,000 units EVERY 12 HOURS SUBQ 12/08/18 21:00 01/05/19 20:59 12/11/18 20:31 Heparin Sodium/ Sodium Chloride (Heparin 1000 units/500ml Premix) 1,000 unit ONCE PRN INJ RADIOLOGY 12/12/18 13:52 12/12/18 23:59 Lansoprazole (Prevacid) 30 mg BID GT 12/09/18 09:00 01/08/19 08:59 12/12/18 08:57 Lidocaine HCl (Xylocaine 1% 30ml) 30 ml ONCE INJ 12/12/18 14:00 12/12/18 23:59 Lorazepam (Ativan 2mg/ml 1ml) 0.5 mg Q4H PRN IV For Anxiety 12/08/18 17:45 12/13/18 13:44 Morphine Sulfate (Morphine Sulfate) 1 mg Q4H PRN IVP For Pain 12/08/18 17:45 12/13/18 13:44 Nystatin (Nystop Powder) 1 applic THREE TIMES A DAY TOPIC 12/09/18 09:00 01/08/19 08:59 12/12/18 13:26 Ondansetron HCl (Zofran) 4 mg Q6H PRN IVP Nausea & Vomiting 12/08/18 18:00 01/05/19 17:59 Sennosides (Senokot) 17.2 mg QHS GT 12/08/18 21:00 01/06/19 20:59 12/10/18 22:04 Dorothea Macario M.D. Dec 12, 2018 14:22
--- NOTE | 2018-12-12 15:33 | NUR ---
NURSE NOTES: patient came back to unit after changing nephrostomy pyelostomy procedure with stable condition. rt flank stomy draining. no bleeding. no respiratory distress noted. no c/o pain at this time.
--- NOTE | 2018-12-12 15:56 | Surgery Progress Note ---
Surgery Progress Note Subjective Additional Comments no acute events ressting comfortable labs noted exam stable output from sp cath okay Objective Last 24 Hour Vital Signs Date Time Temp Pulse Resp B/P (MAP) Pulse Ox O2 Delivery O2 Flow Rate FiO2 12/12/18 15:05 88 18 130/91 (104) 100 12/12/18 15:00 90 18 145/87 (106) 100 12/12/18 14:55 87 18 150/100 (117) 100 12/12/18 14:50 91 18 140/93 (109) 100 12/12/18 14:45 88 18 138/92 (107) 100 12/12/18 14:40 93 18 145/95 (112) 100 12/12/18 14:35 90 18 133/94 (107) 100 12/12/18 14:30 89 18 3.0 12/12/18 09:00 Room Air 12/12/18 03:53 98.1 71 20 127/80 (96) 100 12/12/18 00:00 97.8 79 20 117/84 (95) 98 12/11/18 20:34 Room Air 12/11/18 20:28 79 134/91 12/11/18 20:00 97.2 79 20 134/91 (105) 100 12/11/18 16:00 97.7 78 20 136/78 (97) 99 I&O Intake and Output 12/11/18 12/12/18 19:00 07:00 Intake Total 760 ml 535 ml Output Total 450 ml 700 ml Balance 310 ml -165 ml Intake Free Water 100 ml 150 ml IV Total 110 ml 55 ml Tube Feeding 550 ml 330 ml Output Urine Total 450 ml 700 ml # Voids 2 Laboratory Tests Test 12/12/18 05:07 White Blood Count 7.2 K/UL (4.8-10.8) Red Blood Count 4.37 M/UL (4.70-6.10) L Hemoglobin 13.0 G/DL (14.2-18.0) L Hematocrit 40.8 % (42.0-52.0) L Mean Corpuscular Volume 93 FL (80-99) Mean Corpuscular Hemoglobin 29.7 PG (27.0-31.0) Mean Corpuscular Hemoglobin Concent 31.8 G/DL (32.0-36.0) L Red Cell Distribution Width 18.0 % (11.6-14.8) H Platelet Count 216 K/UL (150-450) Mean Platelet Volume 9.6 FL (6.5-10.1) Neutrophils (%) (Auto) 38.8 % (45.0-75.0) L Lymphocytes (%) (Auto) 43.0 % (20.0-45.0) Monocytes (%) (Auto) 11.1 % (1.0-10.0) H Eosinophils (%) (Auto) 5.6 % (0.0-3.0) H Basophils (%) (Auto) 1.5 % (0.0-2.0) Sodium Level 145 MMOL/L (136-145) Potassium Level 4.5 MMOL/L (3.5-5.1) Chloride Level 110 MMOL/L (98-107) H Carbon Dioxide Level 28 MMOL/L (21-32) Anion Gap 7 mmol/L (5-15) Blood Urea Nitrogen 24 mg/dL (7-18) H Creatinine 0.7 MG/DL (0.55-1.30) Estimat Glomerular Filtration Rate > 60 mL/min (>60) Glucose Level 105 MG/DL (74-106) Calcium Level 8.7 MG/DL (8.5-10.1) Plan Problems: (1) Malfunction of nephrostomy tube Assessment & Plan: prior nephrostomy tube for obstructive stone now obstructed tube Urology eval and input cont abx (2) Fecal impaction Assessment & Plan: needs bowel regimen with proper diet DAILY ESTIMATED NEEDS: Needs based on Sepsis/ 76.7kg abw 25-30 kcals/kg 3120-6638 total kcals 1-2 g protein/kg 77-153 g total protein 25-30 mL/kg 4929-0350 total fluid mLs NUTRITION DIAGNOSIS: 1) Swallowing difficulty related to dysphagia s/p cva as evidenced by pt dependent on PEG for all nutrition and hydration needs. CURRENT TF: Jevity 1.2 @30ml ENTERAL NUTRITION RECOMMENDATIONS --->>> Glucerna 1.5 @ 55ml/hr x 24 hrs to provide 1320ml, 1980kcal, 109g prot, 1002ml free water * Rec TF change to Glucerna 1.5. * Start @35ml/hr for 6 hrs, advance as tolerated 10ml/hr q4-6 hrs to goal. * HOB over 30 degrees/ water flush per MD. ----- ADDITIONAL RECOMMENDATIONS: 1) Calibrated bedscale wt for accurate CBW 2) Monitor lytes, replete as needed 3) Consider NISS/ accuchecks w/ TF for BG control- h/o DM 4) Rec wound eval / coccyx wound F/up w/ wound eval (3) Cellulitis of scrotum Assessment & Plan: see below (4) Decubitus skin ulcer Assessment & Plan: Patient presents with multiple skin issues. Patient identified to have partial-thickness sacral and right buttock pressure injury and abrasions. He has breakdown of the skin around the right buttock as well. Some of this seemingly from pressure others potentially from incontinence associated dermatitis. No foul order, no significant cellulitis in the sacral buttock area, periwound intact. Furthermore patient presents with a near full- thickness skin breakdown of his scrotal area with some scrotal cellulitis. Furthermore patient has skin breakdown around his G-tube site and some mild cellulitis. The above needs further care to ensure healing. Nutritional support. Wash G-tube site daily with normal saline. Apply skin protectant apply foam dressing applied G-tube site dressing as needed Wash sacral wound daily with normal saline. Apply skin protectant. Apply foam dressing. Daily and as needed saturation. Ensure patient being changed with incontinence Offload heels with pillows and heel protectors as needed Pillow between the thighs and skin protectant as well as foam dressing on the scrotum wound Air mattress Turn every 2 hours We will follow with recommendations Russell Lopez Dec 12, 2018 15:56
--- NOTE | 2018-12-12 15:58 | Diagnostic Imaging Report ---
INDICATION: Malfunctioning right nephrostomy, needs exchange TECHNIQUE: Informed consent obtained prior to commencement of the procedure from the patient's niece Diann Crain. Procedure timeout performed. Total sterile technique, including sterile gloves and hand hygiene, hat, mask, sterile gown, large sterile drape, and preparation with 2% chlorhexidine utilized. A small amount of contrast was injected through the pre-existing nephrostomy tube, confirming adequate position within the renal collecting system. Local anesthesia with 1% lidocaine. Shaft of the nephrostomy tube was cut. A hydrophilic guidewire was passed through the nephrostomy tube, and the tube was removed. A new 8.5 Colombian nephrostomy was passed over the guidewire, positioned with the pigtail in the renal pelvis. The guidewire and stiffener were removed. The catheter was locked using the retention suture. Contrast was injected, confirming satisfactory position. The patient tolerated the procedure well, without immediate complication. Fluoroscopy time: 74.7 seconds Total dose: 0.15310 mGym2 Total number of images: 2 COMPARISON: None FINDINGS: Initial image documents satisfactory position of the pre-existing catheter, partly within the renal pelvis, particularly within the lower pole infundibulum. Filling defects within the renal pelvis are consistent with known calculi. Final image demonstrates satisfactory position of the new nephrostomy tube, pigtail within the renal pelvis. IMPRESSION: Successful exchange of right nephrostomy under fluoroscopic guidance, as described
--- NOTE | 2018-12-12 17:58 | NUR ---
CASE MANAGEMENT: REVIEW 12/12/2018 SI:OBSTRUCTED NEPHROSTOMY TUBE. T 98.1 HR 71 RR 20 B/P 127/80 SATS 100% ON RA CL 110 BUN 24 IS: COREG GT Q12H CEFEPIME IV Q12H PREVACID GT BID MED/SURG STATUS DCP: PATIENT TO BE DISCHARGED TO SNF ONCE MEDICALLY CLEARED.
--- NOTE | 2018-12-12 18:02 | NUR ---
DISCHARGE PLANNING: NOTE CLINICALS FAXED TO [facility]
--- NOTE | 2018-12-12 19:21 | NUR ---
HAND-OFF: Report given to CANDI Woody.
--- NOTE | 2018-12-12 19:22 | NUR ---
NURSE NOTES: Patient in bed, awake, confused, unable to make simple needs known. Bed in lowest position, locked, side rails x3. Kept clean and comfortable. Noted with suprapubic catheter and nephrostomy tube. Suprapubic catheter draining. Skin is warm and dry to touch. Noted with dressings, intact. No s/s of pain or discomfort noted. Respiration is even and unlabored. Gt feeding noted, infusing as ordered. Call light is at bedside. Will continue plan of care.
[2018-12-12] MEDS: Sennosides 8.6mg tab GT SCH (22:20)
[2018-12-13] VITALS: BP 127/75
[2018-12-13 04:00] VITALS: BP 116/71
[2018-12-13 07:06] LABS: ANION GAP 7 mmol/L (5-15); BLOOD UREA NITROGEN 21 mg/dL (7-18); CALCIUM 8.9 MG/DL (8.5-10.1); CARBON DIOXIDE 27 MMOL/L (21-32); CHLORIDE 106 MMOL/L (98-107); CREATININE 0.8 MG/DL (0.55-1.30); POTASSIUM 5.3 MMOL/L (3.5-5.1); SODIUM 140 MMOL/L (136-145)
[2018-12-13 07:10] LABS: BASOPHILS % (AUTO) 1.8 % (0.0-2.0); EOSINOPHILS % (AUTO) 3.5 % (0.0-3.0); HEMATOCRIT 43.4 % (42.0-52.0); HEMOGLOBIN 13.7 G/DL (14.2-18.0); LYMPHOCYTES % (AUTO) 29.4 % (20.0-45.0); MEAN CORPUSCULAR VOLUME 94 FL (80-99); MONOCYTES % (AUTO) 6.9 % (1.0-10.0); NEUTROPHILS % (AUTO) 58.5 % (45.0-75.0); PLATELET COUNT 228 K/UL (150-450); RED BLOOD COUNT 4.64 M/UL (4.70-6.10); RED CELL DISTRIBUTION WIDTH 17.2 % (11.6-14.8); WHITE BLOOD COUNT 10.4 K/UL (4.8-10.8)
--- NOTE | 2018-12-13 07:24 | NUR ---
HAND-OFF: Report given to Jorge Ac RN
--- NOTE | 2018-12-13 07:25 | NUR ---
NURSE NOTES: DR ENRIQUE AT BEDSIDE AND MADE AWARE OF POTASSIUM 5.3. PER MD, HE WILL LOOK AT LABS. NO NEW ORDERS RECEIVED.
--- NOTE | 2018-12-13 07:58 | Nephrology Progress Note ---
Assessment/Plan Problem List: (1) Hypernatremia Assessment: dehydration (2) Gastrostomy tube dependent (3) Obstructive uropathy (4) Suprapubic catheter (5) History of CVA (cerebrovascular accident) Assessment: aphasia Assessment 1) Dehydration (2) HyperNatremia (3) Suprapubic catheter (4) History of CVA (cerebrovascular accident) previous Acute renal failure- resolved previous Sepsis CVA Suprapubic cath / ? Neurogenic bladder HTN DVT UTI Plan high K likely hemolysed blood K , mag , phos as needed stop [id number]- dehydration improved midodrine prn avoid nephrotoxics monitor renal parameters per consultants Subjective ROS Limited/Unobtainable: No Objective Objective Last 24 Hour Vital Signs Date Time Temp Pulse Resp B/P (MAP) Pulse Ox O2 Delivery O2 Flow Rate FiO2 12/13/18 04:00 98.0 93 18 116/71 (86) 97 12/13/18 00:00 97.8 97 18 127/75 (92) 100 12/12/18 22:19 73 123/79 12/12/18 21:00 Room Air 12/12/18 20:00 97.4 73 18 123/79 (94) 96 12/12/18 15:05 88 18 130/91 (104) 100 12/12/18 15:00 90 18 145/87 (106) 100 12/12/18 14:55 87 18 150/100 (117) 100 12/12/18 14:50 91 18 140/93 (109) 100 12/12/18 14:45 88 18 138/92 (107) 100 12/12/18 14:40 93 18 145/95 (112) 100 12/12/18 14:35 90 18 133/94 (107) 100 12/12/18 14:30 89 18 3.0 12/12/18 09:00 Room Air Intake and Output 12/12/18 12/13/18 19:00 07:00 Intake Total 540 ml Output Total 700 ml Balance 540 ml -700 ml Intake Free Water 100 ml IV Total 110 ml Tube Feeding 330 ml Output Urine Total 700 ml Laboratory Tests 12/13/18 06:45: White Blood Count 10.4, Red Blood Count 4.64L, Hemoglobin 13.7L, Hematocrit 43.4 , Mean Corpuscular Volume 94, Mean Corpuscular Hemoglobin 29.5, Mean Corpuscular Hemoglobin Concent 31.5L, Red Cell Distribution Width 17.2H, Platelet Count 228, Mean Platelet Volume 9.9, Neutrophils (%) (Auto) 58.5, Lymphocytes (%) (Auto) 29.4, Monocytes (%) (Auto) 6.9, Eosinophils (%) (Auto) 3.5H, Basophils (%) (Auto) 1.8, Sodium Level 140, Potassium Level 5.3H, Chloride Level 106, Carbon Dioxide Level 27, Anion Gap 7, Blood Urea Nitrogen 21H, Creatinine 0.8, Estimat Glomerular Filtration Rate > 60, Glucose Level 120H , Calcium Level 8.9 Height (Feet): 5 Height (Inches): 11.00 Weight (Pounds): 200 General Appearance: no apparent distress Objective no change Pranav Grady MD Dec 13, 2018 07:58
[2018-12-13] MEDS ORDERED: Sodium Polystyrene Sulfonate 15gm Powder GT ONE (09:00)
[2018-12-13] MEDS: Carvedilol 6.25mg Tab GT SCH (09:00)
[2018-12-13 09:03] VITALS: BP 97/72
[2018-12-13] MEDS: Nystatin Powder 100,000 units/gm 15gm TOPIC SCH ×3 (09:18→18:04)
[2018-12-13] MEDS: Cefepime HCl 1 GM in D5W 55 ML IVPB SCH (09:19)
--- NOTE | 2018-12-13 09:34 | General Progress Note ---
Assessment/Plan Problem List: (1) Malfunction of nephrostomy tube ICD Codes: T83.098A - Other mechanical complication of other urinary catheter, initial encounter SNOMED: 614924062 (2) UTI (urinary tract infection) ICD Codes: N39.0 - Urinary tract infection, site not specified SNOMED: 94098045 (3) Hypernatremia ICD Codes: E87.0 - Hyperosmolality and hypernatremia SNOMED: 067395878 (4) Obstructive uropathy ICD Codes: N13.9 - Obstructive and reflux uropathy, unspecified SNOMED: 3730858 (5) Anemia ICD Codes: D64.9 - Anemia, unspecified SNOMED: 178049486 (6) COPD (chronic obstructive pulmonary disease) ICD Codes: J44.9 - Chronic obstructive pulmonary disease, unspecified SNOMED: 81791261 (7) Diabetes mellitus ICD Codes: E11.9 - Type 2 diabetes mellitus without complications SNOMED: 96904122 (8) History of CVA (cerebrovascular accident) ICD Codes: Z86.73 - Personal history of transient ischemic attack (TIA), and cerebral infarction without residual deficits SNOMED: 939363202 (9) History of DVT (deep vein thrombosis) ICD Codes: Z86.718 - Personal history of other venous thrombosis and embolism SNOMED: 073329932 Status: stable, progressing Assessment/Plan: ot pt diet abx neph uro f/u dc if clear by uro Subjective Constitutional: Reports: weakness Allergies: Coded Allergies: VANCOMYCIN (Verified Allergy, Mild, Redness , 10/29/18) CIPROFLOXACIN (Verified Allergy, Unknown, 08/23/15) All Systems: reviewed and negative except above Subjective calm in bed Objective Last 24 Hour Vital Signs Date Time Temp Pulse Resp B/P (MAP) Pulse Ox O2 Delivery O2 Flow Rate FiO2 12/13/18 09:03 97.0 87 18 97/72 (80) 97 12/13/18 04:00 98.0 93 18 116/71 (86) 97 12/13/18 00:00 97.8 97 18 127/75 (92) 100 12/12/18 22:19 73 123/79 12/12/18 21:00 Room Air 12/12/18 20:00 97.4 73 18 123/79 (94) 96 12/12/18 15:05 88 18 130/91 (104) 100 12/12/18 15:00 90 18 145/87 (106) 100 12/12/18 14:55 87 18 150/100 (117) 100 12/12/18 14:50 91 18 140/93 (109) 100 12/12/18 14:45 88 18 138/92 (107) 100 12/12/18 14:40 93 18 145/95 (112) 100 12/12/18 14:35 90 18 133/94 (107) 100 12/12/18 14:30 89 18 3.0 Intake and Output 12/12/18 12/13/18 19:00 07:00 Intake Total 540 ml Output Total 700 ml Balance 540 ml -700 ml Intake Free Water 100 ml IV Total 110 ml Tube Feeding 330 ml Output Urine Total 700 ml Laboratory Tests 12/13/18 06:45: White Blood Count 10.4, Red Blood Count 4.64L, Hemoglobin 13.7L, Hematocrit 43.4 , Mean Corpuscular Volume 94, Mean Corpuscular Hemoglobin 29.5, Mean Corpuscular Hemoglobin Concent 31.5L, Red Cell Distribution Width 17.2H, Platelet Count 228, Mean Platelet Volume 9.9, Neutrophils (%) (Auto) 58.5, Lymphocytes (%) (Auto) 29.4, Monocytes (%) (Auto) 6.9, Eosinophils (%) (Auto) 3.5H, Basophils (%) (Auto) 1.8, Sodium Level 140, Potassium Level 5.3H, Chloride Level 106, Carbon Dioxide Level 27, Anion Gap 7, Blood Urea Nitrogen 21H, Creatinine 0.8, Estimat Glomerular Filtration Rate > 60, Glucose Level 120H , Calcium Level 8.9 Height (Feet): 5 Height (Inches): 11.00 Weight (Pounds): 200 General Appearance: lethargic EENT: normal ENT inspection Neck: normal alignment Cardiovascular: normal peripheral pulses, normal rate, regular rhythm Respiratory/Chest: chest wall non-tender, lungs clear, normal breath sounds Abdomen: normal bowel sounds, non tender, soft Extremities: normal inspection Edema: no edema noted Arm (L), no edema noted Arm (R), no edema noted Leg (L), no edema noted Leg (R), no edema noted Pedal (L), no edema noted Pedal (R), no edema noted Generalized Neurologic: motor weakness Skin: normal pigmentation, warm/dry Jaylen Bear DO Dec 13, 2018 09:34
--- NOTE | 2018-12-13 10:51 | NUR ---
NURSE NOTES: PT COMBATIVE WHEN RN ATTEMPTED TO ADMINISTER CEFEPIME 1GM IVPB TO IV ACCESS ON LEFT FOREARM. RN ADMINISTERED PRN ATIVAN 0.5MG IV ORDERED. PT NOW CALM AND RESTING IN BED. RN ABLE TO START CEFEPIME IVPB ORDERED.
[2018-12-13 12:00] VITALS: BP 112/75
--- NOTE | 2018-12-13 12:30 | Infectious Diseases Prog Note ---
Assessment/Plan Assessment/Plan Assessment: Afebrile nl WBC Non functional R Nephrostomy and pyuria/bacteriuria- will treat -12/13 SP Successful exchange of right nephrostomy under fluoroscopic guidance , as described -u/a wbc tnct, Ucx P. stuarti (S Ceftriaxone, Zosyn) -12/08 CT abd/p: Interval resolution of the diffuse small bowel distention. No evidence of small bowel obstruction and this exam. Moderate to large volume stool in the rectosigmoid region, which may suggest impaction or constipation. No significant fecal retention in the proximal colon. Percutaneous nephrostomy tube with the tip coiled in the right renal pelvis. No hydronephrosis or hydroureter. Percutaneous cystostomy catheter, with expected positioning.. Percutaneous gastrostomy tube in place, with expected positioning. Unchanged appearance of scattered hepatic and left renal cysts. -12/06 BCx neg -11/08 SP R nephrostomy --findings: small amount slightly purulent urine sent for C and S. Intraprocedural images demonstrate dilated right renal collecting system. Multiple filling defects are compatible with a calculi demonstrated on recent CT scan Hx of recent Septic shock- SP -MRSA/ P Mirabilis, E. fecalis bacteremia- m/l source UTI from obstructive stone Hx of recent UTI ucx >100k P. mirabilis (Previously reporte as onlyS Genta, Ertapenem, Zosyn; now hs been updated to R Nitrofurantoin and otherwise S) Hx of recent Pneum -sp cx PsA (neri S), MRSA TCP , SP CVA/TIA Dm2 CKD suprapubic catheter DVT hypertensive heart disease [place] resident Plan: -Continue Cefepime #5/ for bacteriuria and non functioning Nephrostomy tube - 11/19 SP Zyvox and Cefepime -11/02 SP Meropenem #4 -11/01 Sp Amikacin #4 , IV Vancomycin #3 -10/29 SP Ertapenem #1, IV Vancomycin x1 -f/u cx ( Bl ,Ur ) -Monitor CBC/CMP, temperatures -aspiration precautions -Uro f/u Thank you for the consult , we will follow Subjective Allergies: Coded Allergies: VANCOMYCIN (Verified Allergy, Mild, Redness , 10/29/18) CIPROFLOXACIN (Verified Allergy, Unknown, 08/23/15) Subjective afebrile no leukocytosis s/p exchange R nephrostomy tube yesterday Objective Vital Signs Last 24 Hour Vital Signs Date Time Temp Pulse Resp B/P (MAP) Pulse Ox O2 Delivery O2 Flow Rate FiO2 12/13/18 09:03 97.0 87 18 97/72 (80) 97 12/13/18 09:00 Room Air 12/13/18 04:00 98.0 93 18 116/71 (86) 97 12/13/18 00:00 97.8 97 18 127/75 (92) 100 12/12/18 22:19 73 123/79 12/12/18 21:00 Room Air 12/12/18 20:00 97.4 73 18 123/79 (94) 96 12/12/18 15:05 88 18 130/91 (104) 100 12/12/18 15:00 90 18 145/87 (106) 100 12/12/18 14:55 87 18 150/100 (117) 100 12/12/18 14:50 91 18 140/93 (109) 100 12/12/18 14:45 88 18 138/92 (107) 100 12/12/18 14:40 93 18 145/95 (112) 100 12/12/18 14:35 90 18 133/94 (107) 100 12/12/18 14:30 89 18 3.0 Height (Feet): 5 Height (Inches): 11.00 Weight (Pounds): 200 Objective General Appearance: WD/WN, no apparent distress Lines, tubes and drains: peripheral, central line, gtube HEENT: normocephalic, atraumatic, anicteric Neck: non-tender, normal alignment Respiratory/Chest: chest wall non-tender, lungs clear Cardiovascular/Chest: normal peripheral pulses, normal rate Abdomen: normal bowel sounds, PEG + : Rt Nephrostomy +( empty bag) , Suprapubic Cath Extremities: contracted Laboratory Tests Test 12/13/18 06:45 White Blood Count 10.4 K/UL (4.8-10.8) Red Blood Count 4.64 M/UL (4.70-6.10) L Hemoglobin 13.7 G/DL (14.2-18.0) L Hematocrit 43.4 % (42.0-52.0) Mean Corpuscular Volume 94 FL (80-99) Mean Corpuscular Hemoglobin 29.5 PG (27.0-31.0) Mean Corpuscular Hemoglobin Concent 31.5 G/DL (32.0-36.0) L Red Cell Distribution Width 17.2 % (11.6-14.8) H Platelet Count 228 K/UL (150-450) Mean Platelet Volume 9.9 FL (6.5-10.1) Neutrophils (%) (Auto) 58.5 % (45.0-75.0) Lymphocytes (%) (Auto) 29.4 % (20.0-45.0) Monocytes (%) (Auto) 6.9 % (1.0-10.0) Eosinophils (%) (Auto) 3.5 % (0.0-3.0) H Basophils (%) (Auto) 1.8 % (0.0-2.0) Sodium Level 140 MMOL/L (136-145) Potassium Level 5.3 MMOL/L (3.5-5.1) H Chloride Level 106 MMOL/L (98-107) Carbon Dioxide Level 27 MMOL/L (21-32) Anion Gap 7 mmol/L (5-15) Blood Urea Nitrogen 21 mg/dL (7-18) H Creatinine 0.8 MG/DL (0.55-1.30) Estimat Glomerular Filtration Rate > 60 mL/min (>60) Glucose Level 120 MG/DL (74-106) H Calcium Level 8.9 MG/DL (8.5-10.1) Current Medications Medications (Trade) Dose Ordered Sig/Fab Route PRN Reason Start Time Stop Time Status Last Admin Dose Admin Bisacodyl (Dulcolax) 10 mg DAILYPRN PRN RECTAL Constipation 12/08/18 18:00 01/07/19 17:59 Carvedilol (Coreg) 6.25 mg EVERY 12 HOURS GT 12/08/18 21:00 01/05/19 20:59 12/12/18 22:19 Cefepime HCl 1 gm/ Dextrose 55 ml @ 110 mls/hr EVERY 12 HOURS IVPB 12/10/18 09:00 12/17/18 08:59 12/13/18 09:19 Dextrose (Dextrose 50%) 25 ml Q30M PRN IV Hypoglycemia 12/08/18 17:45 01/05/19 13:44 Dextrose (Dextrose 50%) 50 ml Q30M PRN IV Hypoglycemia 12/08/18 18:00 01/07/19 17:59 Heparin Sodium (Porcine) (Heparin 5000 units/ml) 5,000 units EVERY 12 HOURS SUBQ 12/08/18 21:00 01/05/19 20:59 12/12/18 22:20 Lansoprazole (Prevacid) 30 mg BID GT 12/09/18 09:00 01/08/19 08:59 12/13/18 09:09 Lorazepam (Ativan 2mg/ml 1ml) 0.5 mg Q4H PRN IV For Anxiety 12/08/18 17:45 12/13/18 13:44 12/13/18 09:46 Morphine Sulfate (Morphine Sulfate) 1 mg Q4H PRN IVP For Pain 12/08/18 17:45 12/13/18 13:44 Nystatin (Nystop Powder) 1 applic THREE TIMES A DAY TOPIC 12/09/18 09:00 01/08/19 08:59 12/13/18 09:18 Ondansetron HCl (Zofran) 4 mg Q6H PRN IVP Nausea & Vomiting 12/08/18 18:00 01/05/19 17:59 Sennosides (Senokot) 17.2 mg QHS GT 12/08/18 21:00 01/06/19 20:59 12/12/18 22:20 Dorothea Macario M.D. Dec 13, 2018 12:30
--- NOTE | 2018-12-13 13:09 | NUR ---
RD ASSESSMENT & RECOMMENDATIONS SEE CARE ACTIVITY FOR COMPLETE ASSESSMENT DAILY ESTIMATED NEEDS: Needs based on Sepsis, wounds/ 76.7kg abw 25-30 kcals/kg 1392-7704 total kcals 1.25-2 g protein/kg 96-153 g total protein 25-30 mL/kg 9210-1852 total fluid mLs NUTRITION DIAGNOSIS: 1) Swallowing difficulty related to dysphagia s/p cva as evidenced by pt dependent on PEG for all nutrition and hydration needs. 2) Increased pro and micronutrient needs r/t wound healing as evidenced by partial-thickness sacral and right buttock, w/ breakdown of the skin around the right buttock, near full-thickness skin breakdown of his scrotal area with some scrotal cellulitis. CURRENT TF:Glucerna 1.5 @55 ENTERAL NUTRITION RECOMMENDATIONS: Glucerna 1.5 @ 55ml/hr x 24 hrs to provide 1320ml, 1980kcal, 109g prot, 1002ml free water * Maintain at goal as tolerated. * Meets 100% est needs * HOB over 30 degrees/ water flush per MD. ADDITIONAL RECOMMENDATIONS: 1) Calibrated bedscale wt for accurate CBW 2) Monitor lytes, replete as needed 3) Consider NISS/ accuchecks w/ TF for BG control- h/o DM 4) Rec wound eval (wound photos noted) Add JASMIN BID via GT + Vit C 250mg BID 5) Monitor / trend K (5.3); need for TF change to NEPRO
--- NOTE | 2018-12-13 13:57 | Pulmonology Progress Note ---
Assessment/Plan Problems: (1) Suprapubic catheter dysfunction (2) History of DVT (deep vein thrombosis) (3) Suprapubic catheter (4) Obstructive hydrocephalus (5) COPD (chronic obstructive pulmonary disease) (6) Diabetes mellitus (7) Aphasia (8) Feeding by G-tube (9) History of CVA (cerebrovascular accident) Assessment/Plan change of nephrostomy yesterday awake, not communicating looks comfortable continue feeding symptomatic treatment Subjective ROS Limited/Unobtainable: No Constitutional: Reports: no symptoms HEENT: Repors: no symptoms Allergies: Coded Allergies: VANCOMYCIN (Verified Allergy, Mild, Redness , 10/29/18) CIPROFLOXACIN (Verified Allergy, Unknown, 08/23/15) Objective Last 24 Hour Vital Signs Date Time Temp Pulse Resp B/P (MAP) Pulse Ox O2 Delivery O2 Flow Rate FiO2 12/13/18 12:00 97.5 86 19 112/75 (87) 95 12/13/18 09:03 97.0 87 18 97/72 (80) 97 12/13/18 09:00 Room Air 12/13/18 04:00 98.0 93 18 116/71 (86) 97 12/13/18 00:00 97.8 97 18 127/75 (92) 100 12/12/18 22:19 73 123/79 12/12/18 21:00 Room Air 12/12/18 20:00 97.4 73 18 123/79 (94) 96 12/12/18 15:05 88 18 130/91 (104) 100 12/12/18 15:00 90 18 145/87 (106) 100 12/12/18 14:55 87 18 150/100 (117) 100 12/12/18 14:50 91 18 140/93 (109) 100 12/12/18 14:45 88 18 138/92 (107) 100 12/12/18 14:40 93 18 145/95 (112) 100 12/12/18 14:35 90 18 133/94 (107) 100 12/12/18 14:30 89 18 3.0 Intake and Output 12/12/18 12/13/18 18:59 06:59 Intake Total 595 ml Output Total 700 ml Balance 595 ml -700 ml Intake Free Water 100 ml IV Total 110 ml Tube Feeding 385 ml Output Urine Total 700 ml General Appearance: WD/WN HEENT: normocephalic, atraumatic Respiratory/Chest: chest wall non-tender, lungs clear Cardiovascular: normal peripheral pulses, normal rate Abdomen: soft, non tender Genitourinary: normal external genitalia Extremities: no cyanosis Skin: no rash Laboratory Tests 12/13/18 06:45: White Blood Count 10.4, Red Blood Count 4.64L, Hemoglobin 13.7L, Hematocrit 43.4 , Mean Corpuscular Volume 94, Mean Corpuscular Hemoglobin 29.5, Mean Corpuscular Hemoglobin Concent 31.5L, Red Cell Distribution Width 17.2H, Platelet Count 228, Mean Platelet Volume 9.9, Neutrophils (%) (Auto) 58.5, Lymphocytes (%) (Auto) 29.4, Monocytes (%) (Auto) 6.9, Eosinophils (%) (Auto) 3.5H, Basophils (%) (Auto) 1.8, Sodium Level 140, Potassium Level 5.3H, Chloride Level 106, Carbon Dioxide Level 27, Anion Gap 7, Blood Urea Nitrogen 21H, Creatinine 0.8, Estimat Glomerular Filtration Rate > 60, Glucose Level 120H , Calcium Level 8.9 Current Medications Medications (Trade) Dose Ordered Sig/Fab Route PRN Reason Start Time Stop Time Status Last Admin Dose Admin Bisacodyl (Dulcolax) 10 mg DAILYPRN PRN RECTAL Constipation 12/08/18 18:00 01/07/19 17:59 Carvedilol (Coreg) 6.25 mg EVERY 12 HOURS GT 12/08/18 21:00 01/05/19 20:59 12/12/18 22:19 Cefepime HCl 1 gm/ Dextrose 55 ml @ 110 mls/hr EVERY 12 HOURS IVPB 12/10/18 09:00 12/17/18 08:59 12/13/18 09:19 Dextrose (Dextrose 50%) 25 ml Q30M PRN IV Hypoglycemia 12/08/18 17:45 01/05/19 13:44 Dextrose (Dextrose 50%) 50 ml Q30M PRN IV Hypoglycemia 12/08/18 18:00 01/07/19 17:59 Heparin Sodium (Porcine) (Heparin 5000 units/ml) 5,000 units EVERY 12 HOURS SUBQ 12/08/18 21:00 01/05/19 20:59 12/12/18 22:20 Lansoprazole (Prevacid) 30 mg BID GT 12/09/18 09:00 01/08/19 08:59 12/13/18 09:09 Nystatin (Nystop Powder) 1 applic THREE TIMES A DAY TOPIC 12/09/18 09:00 01/08/19 08:59 12/13/18 13:23 Ondansetron HCl (Zofran) 4 mg Q6H PRN IVP Nausea & Vomiting 12/08/18 18:00 01/05/19 17:59 Sennosides (Senokot) 17.2 mg QHS GT 12/08/18 21:00 01/06/19 20:59 12/12/18 22:20 Rigoberto Bryant MD Dec 13, 2018 13:57
--- NOTE | 2018-12-13 14:14 | NUR ---
NURSE NOTES: PER DR DAMON, PT IS CLEARED FOR DISCHARGE. RN MADE DR BERRY AWARE OF DISCHARGE ORDER. MRSA AND VRE COLONIZED AND PT TO CONTINUE CEFEPIME 1GM IVPB Q12HR X 3 DAYS.
--- NOTE | 2018-12-13 14:15 | NUR ---
NURSE NOTES: RIGHT NEPHROSTOMY TUBE DRAINING SERO-SANG FLUID BY GRAVITY. IN NO APPARENT DISTRESS AT THIS TIME. WILL CONTINUE TO MONITOR.
--- NOTE | 2018-12-13 14:48 | NUR ---
NURSE NOTES: RN LEFT MESSAGE FOR DR ENRIQUE FOR CLEARANCE FOR DISCHARGE.
[2018-12-13] MEDS ORDERED: LANSOPRAZOLE30 MG ORAL (15:04)
[2018-12-13] MEDS ORDERED: COREG6.25 MG ORAL (15:04)
[2018-12-13] MEDS ORDERED: SENOKOT8.6 MG PO (15:04)
--- NOTE | 2018-12-13 15:05 | Surgery Progress Note ---
Surgery Progress Note Subjective Additional Comments nephrostomy tube changed stable exam unchanged labs noted Objective Last 24 Hour Vital Signs Date Time Temp Pulse Resp B/P (MAP) Pulse Ox O2 Delivery O2 Flow Rate FiO2 12/13/18 12:00 97.5 86 19 112/75 (87) 95 12/13/18 09:03 97.0 87 18 97/72 (80) 97 12/13/18 09:00 Room Air 12/13/18 04:00 98.0 93 18 116/71 (86) 97 12/13/18 00:00 97.8 97 18 127/75 (92) 100 12/12/18 22:19 73 123/79 12/12/18 21:00 Room Air 12/12/18 20:00 97.4 73 18 123/79 (94) 96 12/12/18 15:05 88 18 130/91 (104) 100 I&O Intake and Output 12/12/18 12/13/18 18:59 06:59 Intake Total 595 ml Output Total 700 ml Balance 595 ml -700 ml Intake Free Water 100 ml IV Total 110 ml Tube Feeding 385 ml Output Urine Total 700 ml Dressing: saturated, other Wound: clean, other Drains: other Cardiovascular: RSR Respiratory: clear Abdomen: soft, present bowel sounds, other, non-distended Extremities: no cyanosis, other Laboratory Tests Test 12/13/18 06:45 White Blood Count 10.4 K/UL (4.8-10.8) Red Blood Count 4.64 M/UL (4.70-6.10) L Hemoglobin 13.7 G/DL (14.2-18.0) L Hematocrit 43.4 % (42.0-52.0) Mean Corpuscular Volume 94 FL (80-99) Mean Corpuscular Hemoglobin 29.5 PG (27.0-31.0) Mean Corpuscular Hemoglobin Concent 31.5 G/DL (32.0-36.0) L Red Cell Distribution Width 17.2 % (11.6-14.8) H Platelet Count 228 K/UL (150-450) Mean Platelet Volume 9.9 FL (6.5-10.1) Neutrophils (%) (Auto) 58.5 % (45.0-75.0) Lymphocytes (%) (Auto) 29.4 % (20.0-45.0) Monocytes (%) (Auto) 6.9 % (1.0-10.0) Eosinophils (%) (Auto) 3.5 % (0.0-3.0) H Basophils (%) (Auto) 1.8 % (0.0-2.0) Sodium Level 140 MMOL/L (136-145) Potassium Level 5.3 MMOL/L (3.5-5.1) H Chloride Level 106 MMOL/L (98-107) Carbon Dioxide Level 27 MMOL/L (21-32) Anion Gap 7 mmol/L (5-15) Blood Urea Nitrogen 21 mg/dL (7-18) H Creatinine 0.8 MG/DL (0.55-1.30) Estimat Glomerular Filtration Rate > 60 mL/min (>60) Glucose Level 120 MG/DL (74-106) H Calcium Level 8.9 MG/DL (8.5-10.1) Plan Problems: (1) Malfunction of nephrostomy tube Assessment & Plan: prior nephrostomy tube for obstructive stone now obstructed tube tube changed by IR stable cont abx (2) Fecal impaction Assessment & Plan: needs bowel regimen with proper diet DAILY ESTIMATED NEEDS: Needs based on Sepsis/ 76.7kg abw 25-30 kcals/kg 8178-7223 total kcals 1-2 g protein/kg 77-153 g total protein 25-30 mL/kg 7261-4576 total fluid mLs NUTRITION DIAGNOSIS: 1) Swallowing difficulty related to dysphagia s/p cva as evidenced by pt dependent on PEG for all nutrition and hydration needs. CURRENT TF: Jevity 1.2 @30ml ENTERAL NUTRITION RECOMMENDATIONS --->>> Glucerna 1.5 @ 55ml/hr x 24 hrs to provide 1320ml, 1980kcal, 109g prot, 1002ml free water * Rec TF change to Glucerna 1.5. * Start @35ml/hr for 6 hrs, advance as tolerated 10ml/hr q4-6 hrs to goal. * HOB over 30 degrees/ water flush per MD. ----- ADDITIONAL RECOMMENDATIONS: 1) Calibrated bedscale wt for accurate CBW 2) Monitor lytes, replete as needed 3) Consider NISS/ accuchecks w/ TF for BG control- h/o DM 4) Rec wound eval / coccyx wound F/up w/ wound eval (3) Cellulitis of scrotum Assessment & Plan: see below (4) Decubitus skin ulcer Assessment & Plan: Patient presents with multiple skin issues. Patient identified to have partial-thickness sacral and right buttock pressure injury and abrasions. He has breakdown of the skin around the right buttock as well. Some of this seemingly from pressure others potentially from incontinence associated dermatitis. No foul order, no significant cellulitis in the sacral buttock area, periwound intact. Furthermore patient presents with a near full- thickness skin breakdown of his scrotal area with some scrotal cellulitis. Furthermore patient has skin breakdown around his G-tube site and some mild cellulitis. The above needs further care to ensure healing. Nutritional support. Wash G-tube site daily with normal saline. Apply skin protectant apply foam dressing applied G-tube site dressing as needed Wash sacral wound daily with normal saline. Apply skin protectant. Apply foam dressing. Daily and as needed saturation. Ensure patient being changed with incontinence Offload heels with pillows and heel protectors as needed Pillow between the thighs and skin protectant as well as foam dressing on the scrotum wound Air mattress Turn every 2 hours We will follow with recommendations Additional Comments sree planning okay to d/c from surgical standopint Russell Lopez Dec 13, 2018 15:05
[2018-12-13] MEDS ORDERED: NYSTATIN1 EAC2 MC (15:06)
--- NOTE | 2018-12-13 15:06 | NUR ---
DISCHARGE PLANNING DISCHARGE ORDER NOTED [facility] [address] [place] [address] Bed:17-C Skilled [phone] for Nurse to Nurse report [facility] ETA for transportation: 16:30
[2018-12-13] MEDS ORDERED: CEFEPIME-D1 GM/50 ML IVPB (15:51)
[2018-12-13 16:00] VITALS: BP 115/80
--- NOTE | 2018-12-13 16:03 | NUR ---
NURSE NOTES: TYE Rosales CM, MADE AWARE OF [facility] UNABLE TO ACCEPT PT FOR IV ANTIBIOTICS DUE TO INSURANCE, PER CANDI HOOD.
[2018-12-13] MEDS ORDERED: BACTRIM DS TAB1 EAC1 ORAL (16:37)
--- NOTE | 2018-12-13 17:58 | NUR ---
NURSE NOTES: PER MACO, INFECTION CONTROL NURSE AT [facility], THEY ARE UNABLE TO ACCEPT PT DUE TO POSITIVE CRE. NI GAMBLE RECEIVED ORDER FROM DR BERRY FOR CRE COLONIZATION. MACO MADE AWARE AND RN TO INCLUDE ORDER IN DISCHARGE PACKET. RN LEFT VOICEMAIL FOR SISTER BOZENA DHILLON AND SPOKE TO NIECE EUGENE HERRERA AND MADE AWARE OF DISCHARGE CHRISTINA TO [facility]. IV ACCESS OF LEFT WRIST DISCONTINUED. NO BELONGINGS. WAITING FOR [facility] WHO ARE DELAYED.
--- NOTE | 2018-12-13 19:00 | NUR ---
NURSE NOTES: REPORT WAS GIVEN TO CANDI HOOD. PT DISCHARGED IN STABLE CONDITION.
--- NOTE | 2018-12-15 18:16 | Discharge Summary ---
Discharge Summary Discharge Summary _ DATE OF ADMISSION: 12/06/2018 DATE OF DISCHARGE: 12/13/2018 DISCHARGED BY: Dr. Jaylen Bear CONSULTANTS: Dr. Rsusell Pablo [facility] BRIEF HOSPITAL COURSE: Patient is a 58-year-old male, who resides in [facility], presented to ED due to clogged nephrostomy tube. He has medical history significant for anemia, obstructive uropathy, COPD, hydrocephalus, aphasia, diabetes, CVA, encephalopathy and DVT. Upon evaluation at the ED, vital signs were stable. Blood work did not show any leukocytosis. Hemoglobin and hematocrit were stable. Sodium 156. Glucose 114. Lactic acid 1. EKG was in normal sinus rhythm with no acute changes. Chest x-ray did not show any acute disease. He was given IV fluids. He was then admitted to telemetry for evaluation of malfunctioning gastrostomy tube, hyponatremia and chronic encephalopathy. He was given IV hydration. Electrolytes were monitored. Surgeon was consulted. During last admission, patient had potential volvulus which fortunately resolved and was identified to be likely ileus. At that time , he was noted to have obstructive ureteral stone and a nephrostomy tube was inserted. Currently nephrostomy tube was obstructed. Patient was also identified to have worsening condition as well as peritoneal G-tube cellulitis with skin breakdown, scrotal cellulitis with skin breakdown and sacral decubitus ulcer. He was given wound care. He was placed on air mattress with frequent repositioning and offloading. Nutrition was optimized. ID was consulted. Urine culture showed growth of Providentia. Patient was started on cefepime. Acute renal failure resolved. On 12/12/2018, he underwent nephrostomy exchange by IR. Nephrostogram showed satisfactory position, pigtail within the renal pelvis. He was eventually discharged back to detention. FINAL DIAGNOSES: Suprapubic catheter dysfunction, status post nephrostomy exchange by IR Acute renal failure, resolved Hypernatremia Anemia Cellulitis of scrotum Cellulitis of the G-tube site Sacral and right buttock decubitus ulcer, present on admission Obstructive uropathy COPD Feeding via G-tube Old CVA Diabetes mellitus Old DVT Hypertensive heart disease DISPOSITION: Patient was discharged to a SNF. DISCHARGE MEDICATIONS: Refer to Discharge Medication List. I have been assigned to complete a discharge summary on this account, I was not involved with the patient's management.--TERRA [place] Jacqueline Robles NP Dec 15, 2018 18:16
== END 2018-12-13 18:57 | DRG 466 ==
LOC: EDBD 12:19 → EMR 12:40 → EDBEDREQ 13:03 → EDBEDREQSVC 13:42 → EDBEDREQ 13:42 → 2E 14:03 → 4E 12-08 17:41
PROC: 0T25X0Z Change Drainage Device in Kidney, External Approach (ICD-10-PCS; principal; 2018-12-13)
DX: T83.092A Other mechanical complication of nephrostomy catheter, initial encounter (principal); Y83.8 Other surgical procedures as the cause of abnormal reaction of the patient, or of later complication, without mention of misadventure at the time of the procedure; J44.9 Chronic obstructive pulmonary disease, unspecified; E11.9 Type 2 diabetes mellitus without complications; Z86.718 Personal history of other venous thrombosis and embolism; Z88.1 Allergy status to other antibiotic agents; N39.0 Urinary tract infection, site not specified; E46 Unspecified protein-calorie malnutrition; G91.9 Hydrocephalus, unspecified; I69.320 Aphasia following cerebral infarction; G93.40 Encephalopathy, unspecified; D64.9 Anemia, unspecified; N49.2 Inflammatory disorders of scrotum; L89.159 Pressure ulcer of sacral region, unspecified stage; L89.319 Pressure ulcer of right buttock, unspecified stage; I11.9 Hypertensive heart disease without heart failure; Z43.1 Encounter for attention to gastrostomy; N13.9 Obstructive and reflux uropathy, unspecified; B96.89 Other specified bacterial agents as the cause of diseases classified elsewhere
CPT/HCPCS: 36415; 71045; 74176; 80048; 80053; 80076; 81003; 82607; 82746; 82962; 82977; 83036; 83605; 83735; 83880; 84100; 84443; 84550; 85025; 85610; 85730; 86140; 86850; 86900; 86901; 87040; 87081; 87086; 87181; 93005; 96360; 99285

== ENCOUNTER 2019-01-02 09:23 | Inpatient (IN) | payer MEDICAID ==
[~2019-01-02] VITALS: Ht 170.2 cm; Wt 91.2 kg
[~2019-01-02 09:23] MED LIST changes: +CEFEPIME-D1 GM/50 ML IVPB; +COREG6.25 MG ORAL; +DOCUSATE SODIU250 MG GT; +LANSOPRAZOLE30 MG GT; +NYSTATIN1 EAC2 MC; +SENOKOT8.6 MG PO; +UTI-STAT L3875 MG/31 GT
[2019-01-02 09:28] VITALS: BP 123/89
--- NOTE | 2019-01-02 09:28 | NUR ---
ED Nurse Note: PT BROUGHT IN TO ER TODAY BY ELIAS FROM [facility] DUE TO BLOOD IN NEPHROSTOMY TUBE SINCE LAST NIGHT. PT NOT RESPONSIVE TO QUESTIONS. ON ASSESSMENT, PT PRESENTS WITH PATENT NEPHROSTOMY TUBE TO RIGHT SIDE. BLOOD NOTED IN COLLECTION BAG. PT ALSO PRESENTS WITH CLAMPED G-TUBE AND PATENT SUPRAPUBIC CATHETER DRAINING CLOUDY YELLOW URINE. PT CONTRACTED TO ALL EXTREMITIES AND IS MISSING ONE DIGIT TO LEFT HAND. SKIN ASSESSMENT: DARKENED AREA NOTED TO COCCYX AREA. PHOTO TAKEN AND UPLOADED TO PT'S EMR.
--- NOTE | 2019-01-02 09:36 | Emergency Room Report ---
History of Present Illness General Chief Complaint: General Complaint Source: Medical Record Present Illness HPI Patient is a 58-year-old male brought in by basic annulus from nursing facility. Patient was noted to have prior history of suprapubic catheter as well as nephrostomy presented after increased hematuria. Patient been noted to have increased blood from nephrostomy site for 1 day. Gradual onset. Patient also had some discoloration of urine from suprapubic catheter. Allergies: Coded Allergies: VANCOMYCIN (Verified Allergy, Mild, Redness , 10/29/18) CIPROFLOXACIN (Verified Allergy, Unknown, 08/23/15) Patient History Past Medical History: see triage record Reviewed Nursing Documentation: PMH: Agreed; PSxH: Agreed Nursing Documentation-PMH Past Medical History: No History, Except For Hx Cardiac Problems: Yes - tachycardia, DVT Hx Hypertension: Yes - Hypernatremia Hx COPD: Yes Hx Diabetes: Yes - type 2 Hx Cancer: No Hx Gastrointestinal Problems: Yes - Dysphagia, G-tube, GERD Hx Neurological Problems: Yes - Encephalopathy, hydrocephalus Hx Cerebrovascular Accident: Yes Hx Transient Ischemic Attacks: Yes Hx Seizures: Yes - CRF Hx Paralysis: Yes - paraplegic Hx Speech Problem: Yes Hx Aphasia: Yes Review of Systems All Other Systems: limited - Review of systems: Review systems is limited by patient's being a poor historian Physical Exam Vital Signs Date Time Temp Pulse Resp B/P (MAP) Pulse Ox O2 Delivery O2 Flow Rate FiO2 01/02/19 09:25 97.3 78 16 108/73 (85) 98 Room Air Sp02 EP Interpretation: reviewed, normal General Appearance: alert, Chronically Ill Head: atraumatic ENT: normal ENT inspection, hearing grossly normal, other Neck: supple, no bony tend, limited range of motion Respiratory: lungs clear, normal breath sounds, no respiratory distress, no retraction, no wheezing Cardiovascular #1: regular rate, rhythm, no edema Gastrointestinal: normal inspection, soft, other - Suprapubic catheter with cloudy urine no erythema to the stoma Genitourinary: other - Right nephrostomy tube draining slightly bloody Musculoskeletal: decreased range of motion Neurologic: normal inspection, alert, responsive, other - Garbled speech Psychiatric: normal inspection, judgement/insight normal, mood/affect normal Skin: normal color Medical Decision Making Diagnostic Impression: Primary Impression: Encephalopathy chronic Additional Impression: UTI (urinary tract infection) ER Course Patient presented for increased blood from nephrostomy. Differential diagnosis include was not limited to stone, infection, trauma, among others. Because of complexity of patient's case laboratory tests and imaging studies were ordered. Patient was noted to have a fairly complex picture and had multiple prior infections. Patient was noted to be allergic to ciprofloxacin as well as vancomycin. Blood cultures were obtained. Patient given IV fluids. He was started on IV antibiotics. Patient was noted to have some prior history of nephrostomy placement as well as some evidence of urinary infection laboratory testing. Patient was reexamined and had improvement in his perfusion. Dr. Mo was contacted for urology consult. Dr. Jaylen Bear was contacted for inpatient management due to primary care physician. Labs Test 01/02/19 09:06 01/02/19 09:25 Urine Color Pale yellow Urine Appearance Cloudy Urine pH 8 (4.5-8.0) Urine Specific [place] 1.015 (1.005-1.035) Urine Protein 1+ (NEGATIVE) Urine Glucose (UA) Negative (NEGATIVE) Urine Ketones Negative (NEGATIVE) Urine Blood 5+ (NEGATIVE) Urine Nitrite Positive (NEGATIVE) Urine Bilirubin Negative (NEGATIVE) Urine Urobilinogen Normal MG/DL (0.0-1.0) Urine Leukocyte Esterase 3+ (NEGATIVE) Urine RBC 30-40 /HPF (0 - 0) Urine WBC 5-10 /HPF (0 - 0) Urine Squamous Epithelial Cells Occasional /LPF Urine Triple Phosphate Crystals Many /LPF (NONE) Urine Amorphous Sediment Many /LPF (NONE) Urine Bacteria Many /HPF (NONE) White Blood Count 9.5 K/UL (4.8-10.8) Red Blood Count 4.62 M/UL (4.70-6.10) Hemoglobin 13.2 G/DL (14.2-18.0) Hematocrit 41.5 % (42.0-52.0) Mean Corpuscular Volume 90 FL (80-99) Mean Corpuscular Hemoglobin 28.6 PG (27.0-31.0) Mean Corpuscular Hemoglobin Concent 31.8 G/DL (32.0-36.0) Red Cell Distribution Width 15.2 % (11.6-14.8) Platelet Count 320 K/UL (150-450) Mean Platelet Volume 7.2 FL (6.5-10.1) Neutrophils (%) (Auto) 55.3 % (45.0-75.0) Lymphocytes (%) (Auto) 33.9 % (20.0-45.0) Monocytes (%) (Auto) 4.9 % (1.0-10.0) Eosinophils (%) (Auto) 4.3 % (0.0-3.0) Basophils (%) (Auto) 1.6 % (0.0-2.0) Sodium Level 141 MMOL/L (136-145) Potassium Level 4.5 MMOL/L (3.5-5.1) Chloride Level 103 MMOL/L (98-107) Carbon Dioxide Level 30 MMOL/L (21-32) Anion Gap 8 mmol/L (5-15) Blood Urea Nitrogen 20 mg/dL (7-18) Creatinine 0.8 MG/DL (0.55-1.30) Estimat Glomerular Filtration Rate > 60 mL/min (>60) Glucose Level 104 MG/DL (74-106) Lactic Acid Level 3.40 mmol/L (0.4-2.0) Calcium Level 9.6 MG/DL (8.5-10.1) Phosphorus Level 4.5 MG/DL (2.5-4.9) Magnesium Level 2.4 MG/DL (1.8-2.4) Total Bilirubin 0.3 MG/DL (0.2-1.0) Aspartate Amino Transf (AST/SGOT) 29 U/L (15-37) Alanine Aminotransferase (ALT/SGPT) 15 U/L (12-78) Alkaline Phosphatase 71 U/L (46-116) Total Creatine Kinase 75 U/L (26-308) Creatine Kinase MB < 0.5 NG/ML (0.0-3.6) Creatine Kinase MB Relative Index 0.6 Troponin I 0.000 ng/mL (0.000-0.056) Pro-B-Type Natriuretic Peptide 94 pg/mL (0-125) Total Protein 9.0 G/DL (6.4-8.2) Albumin 3.2 G/DL (3.4-5.0) Globulin 5.8 g/dL Albumin/Globulin Ratio 0.6 (1.0-2.7) EKG Diagnostic Results Rate: normal Rhythm: NSR - 75 ST Segments: other - low voltage Last Vital Signs Date Time Temp Pulse Resp B/P (MAP) Pulse Ox O2 Delivery O2 Flow Rate FiO2 01/02/19 09:25 97.3 78 16 108/73 (85) 98 Room Air Disposition: ADMITTED INPATIENT Condition: Serious Froy Garcia MD Jan 02, 2019 09:36
[2019-01-02] MEDS: Cefepime HCl 2 GM in NS 110 ML IV SCH (10:01)
[2019-01-02 10:08] LABS: BASOPHILS % (AUTO) 1.6 % (0.0-2.0); EOSINOPHILS % (AUTO) 4.3 % (0.0-3.0); HEMATOCRIT 41.5 % (42.0-52.0); HEMOGLOBIN 13.2 G/DL (14.2-18.0); LYMPHOCYTES % (AUTO) 33.9 % (20.0-45.0); MEAN CORPUSCULAR VOLUME 90 FL (80-99); MONOCYTES % (AUTO) 4.9 % (1.0-10.0); NEUTROPHILS % (AUTO) 55.3 % (45.0-75.0); PLATELET COUNT 320 K/UL (150-450); RED BLOOD COUNT 4.62 M/UL (4.70-6.10); RED CELL DISTRIBUTION WIDTH 15.2 % (11.6-14.8); WHITE BLOOD COUNT 9.5 K/UL (4.8-10.8)
[2019-01-02 10:12] LABS: APPEARANCE,URINE CLOUDY; BILIRUBIN, URINE NEGATIVE (NEGATIVE); COLOR,URINE PALE YELLOW; GLUCOSE, URINE (UA) NEGATIVE (NEGATIVE); KETONES,URINE NEGATIVE (NEGATIVE); LEUKOCYTE ESTERASE ,URINE 3+ (NEGATIVE); NITRITE,URINE POSITIVE (NEGATIVE); PH,URINE 8 (4.5-8.0); PROTEIN,URINE 1+ (NEGATIVE); UROBILINOGEN,URINE NORMAL MG/DL (0.0-1.0)
[2019-01-02 10:18] LABS: ANION GAP 8 mmol/L (5-15); BLOOD UREA NITROGEN 20 mg/dL (7-18); CALCIUM 9.6 MG/DL (8.5-10.1); CARBON DIOXIDE 30 MMOL/L (21-32); CHLORIDE 103 MMOL/L (98-107); CREATININE 0.8 MG/DL (0.55-1.30); POTASSIUM 4.5 MMOL/L (3.5-5.1); SODIUM 141 MMOL/L (136-145)
[2019-01-02 10:32] LABS: ALANINE AMINOTRANSFERASE 15 U/L (12-78); ALBUMIN 3.2 G/DL (3.4-5.0); ALBUMIN/GLOBULIN RATIO 0.6 (1.0-2.7); ALKALINE PHOSPHATASE 71 U/L (46-116); ASPARTATE AMINO TRANSFERASE 29 U/L (15-37); BILIRUBIN,TOTAL 0.3 MG/DL (0.2-1.0); CKMB < 0.5 NG/ML (0.0-3.6); CREATINE KINASE 75 U/L (26-308); PHOSPHORUS 4.5 MG/DL (2.5-4.9)
[2019-01-02 11:45] VITALS: BP 131/82
--- NOTE | 2019-01-02 11:51 | Diagnostic Imaging Report ---
Indication: Dyspnea Comparison: 12/06/2018 A single view chest radiograph was obtained. Findings: Heart size is normal. Lungs are clear and hypoinflated. Bones are osteopenic. IMPRESSION: No change from the prior exam. No acute findings
--- NOTE | 2019-01-02 12:11 | NUR ---
ED Nurse Note: report given to CANDI Mckeon
--- NOTE | 2019-01-02 12:41 | NUR ---
ED Nurse Note: PT TAKEN UP TO TELE UNIT VIA GURNEY ON LAN MANAGER WITH ALL BELONGINGS ACCOMPANIED BY PRIMARY RN AND EMT. VSS.
[2019-01-02] MEDS ORDERED: LORazepam Inj 2mg/ml 1ml IV PRN (13:00)
[2019-01-02] MEDS ORDERED: Morphine Sulfate 2mg/ml Inj(IV/IM USE ONLY) IVP PRN (13:00)
--- NOTE | 2019-01-02 13:17 | Consultation ---
Consult Note Consult Note Consult Note HPI 58 y/o M with hx of CVA/TIA, Dm2, CKD, suprapubic catheter, DVT, hypertensive heart disease, [place] resident presented to ED for blood in nephrostomy tube . pt had a recent admission to this medical center for Sepsis and bacteremia. ID cons was requested for possible need for AB Rx and UTI Allergies: Coded Allergies: CIPROFLOXACIN and Vanco Patient History Pmhx: as above Shx: reviewed Fhx: non contributory Meds : on Rocephin Review of Systems All Other Systems: negative except mentioned in HPI Physical Exam Physical Exam Narrative General Appearance: WD/WN, no apparent distress Lines, tubes and drains: peripheral, central line, gtube HEENT: normocephalic, atraumatic, anicteric Neck: non-tender, normal alignment Respiratory/Chest: chest wall non-tender, lungs clear Cardiovascular/Chest: normal peripheral pulses, normal rate Abdomen: normal bowel sounds, PEG + : Rt Nephrostomy +( small amount of blood in Urine bag) , Suprapubic Cath Extremities: contracted Assessment/Plan Assessment: Afebrile nl WBC Blood in R Nephrostomy -12/13 SP Successful exchange of right nephrostomy under fluoroscopic guidance , as described -u/a wbc tnct, Ucx P. stuarti (S Ceftriaxone, Zosyn) -12/08 CT abd/p: Interval resolution of the diffuse small bowel distention. No evidence of small bowel obstruction and this exam. Moderate to large volume stool in the rectosigmoid region, which may suggest impaction or constipation. No significant fecal retention in the proximal colon. Percutaneous nephrostomy tube with the tip coiled in the right renal pelvis. No hydronephrosis or hydroureter. Percutaneous cystostomy catheter, with expected positioning.. Percutaneous gastrostomy tube in place, with expected positioning. Unchanged appearance of scattered hepatic and left renal cysts. -11/08 SP R nephrostomy --findings: small amount slightly purulent urine sent for C and S. Intraprocedural images demonstrate dilated right renal collecting system. Multiple filling defects are compatible with a calculi demonstrated on recent CT scan Hx of recent Septic shock- SP -MRSA/ P Mirabilis, E. fecalis bacteremia- m/l source UTI from obstructive stone Hx of recent UTI ucx >100k P. mirabilis (Previously reporte as onlyS Genta, Ertapenem, Zosyn; now hs been updated to R Nitrofurantoin and otherwise S) Hx of recent Pneum -sp cx PsA (neri S), MRSA TCP , SP CVA/TIA Dm2 CKD suprapubic catheter DVT hypertensive heart disease [place] resident Plan: -Continue Cefepime # 1 ( august DC soon ) , Dc flagyl # 1 - 11/19 SP Zyvox and Cefepime -11/02 SP Meropenem #4 -11/01 Sp Amikacin #4 , IV Vancomycin #3 -10/29 SP Ertapenem #1, IV Vancomycin x1 -f/u cx (Bl ,Ur) -Monitor CBC/CMP, temperatures -aspiration precautions -Uro f/u -Ct of Abd wo contrast Thank you Peterson Cabrera MD Jan 02, 2019 13:17
--- NOTE | 2019-01-02 14:40 | NUR ---
NURSE NOTES: pt received in tele. pt in stable condition, he is awake and non verbal expect the word (NO). Pt on rand cementer no signs of cardiac or respiratory distress. V/s 131/92/ HR 80 T97.3 O2 97 R18. Pt has no belongings. Pt has Gtube, nephrostomy draining tinged red. and suprapubic cath. (draining) yellow urine no sedimentation. skin redness coccyx pressure ulcer.
[2019-01-02] MEDS: D5 1/2NS 1,000 ML IV SCH (16:36)
--- NOTE | 2019-01-02 18:30 | History and Physical Report ---
DATE OF ADMISSION: 01/02/2019 TIME SEEN: 2 p.m. CONSULTANTS: 1. Rigoberto Bryant M.D. 2. Peterson Cabrera M.D. 3. Jameson Mo M.D. 4. Scott Adrian M.D. CHIEF COMPLAINT: Malfunctioning nephrostomy tube. BRIEF HISTORY: This is a 58-year-old male from [facility], presented with bloody nephrostomy tube, came to [facility], diagnosed with the above. Also UTI and pyelonephritis and admitted to telemetry for further care. Currently, calm in bed, confused, not talking much. REVIEW OF SYSTEMS: Unavailable. PAST MEDICAL HISTORY: Includes COPD, obstructive hydrocephalus, diabetes, aphasia, decubitus, DVT, ATN, and encephalopathy. PAST SURGICAL HISTORY: Nephrostomy tube and G-tube. ALLERGIES: Cipro and vancomycin. MEDICATIONS: Include carvedilol, heparin, lorazepam, Zofran, morphine, cefepime, and metronidazole. SOCIAL HISTORY: Unable to obtain secondary to the patient's condition. PHYSICAL EXAMINATION: GENERAL: Lethargic, sleepy in bed, confused, not talking much. VITAL SIGNS: Temperature is 98 degrees, pulse 78, respirations 16, and blood pressure 120/78. CARDIOVASCULAR: No murmurs. LUNGS: Distant and clear. ABDOMEN: Bowel sounds positive. Nontender. Nondistended. EXTREMITIES: No cyanosis. No edema. NEUROLOGIC: The patient moves all extremities. Slightly weak. LABORATORY AND DIAGNOSTIC DATA: Labs at this time show hemoglobin and hematocrit 13/41, otherwise CBC is normal. BMP show BUN 20. Lactic acid 3.4. Albumin 3.2. Urinalysis, 3+ leukocyte esterase. ASSESSMENT: 1. Nephrostomy tube malfunction. 2. Urinary tract infection. 3. Pyelonephritis. 4. Chronic obstructive pulmonary disease. 5. Obstructive hydrocephalus. 6. Malnutrition. 7. Diabetes. 8. Aphasia. 9. Anemia. 10. Decubitus ulcer. 11. DVT. 12. ATN. 13. Encephalopathy. 14. CVA. PLAN: 1. Urology followup. 2. Antibiotics per Infectious Disease. 3. Blood pressure and blood sugar control. 4. Pain control. 5. Dietary followup. 6. PT and OT. 7. CBC and BMP in the morning. Jaylen Bear D.O. DR: AYSE JOB#: [id number] CC:
--- NOTE | 2019-01-02 19:39 | NUR ---
HAND-OFF: Report given to Linda/RN Pt's feeding pump is not working pt needs another pump. Endorsed pt will have cT of the Ab tomorrow and needs to be NPO after midnight.
--- NOTE | 2019-01-02 19:40 | NUR ---
NURSE NOTES: Received report from CANDI Melo. Patient in bed awake HOB 35 deg., showing no signs of acute distress. Pt. is non-verbal. AOx1. Respiration even and non labored on room air. No sob noted. Pt. noted with GTube on Jevity 1.2@30cc/hr patent and intact. No residual noted. Pt. on suprapubic cath. Noted, dressing intact and draining. Pt. noted on nephrostomy drain tube with Serosanguineous drain, dressing intact. IV noted on right FA 20g w/ D5 0.45NS @ 50cc/hr and IV on left ua 20g SL patent and intact. Bed in lowest position, side rails up x2, wheels locked. Call button within reach. All needs attended and met. Will continue plan of care.
[2019-01-02 20:00] VITALS: BP 115/70
[2019-01-02] MEDS: Heparin 5000 units/ml inj SUBQ SCH (21:47)
[2019-01-02] MEDS: Carvedilol 6.25mg Tab GT SCH (21:48)
[2019-01-03] VITALS (9 sets, daily range): BP systolic 120–163; BP diastolic 60–90
--- NOTE | 2019-01-03 00:30 | Consultation ---
DATE OF CONSULTATION: 01/02/2019 UROLOGY CONSULTATION ATTENDING/ PHYSICIAN: Jaylen Bear D.O. CHIEF COMPLAINT/HISTORY OF PRESENT ILLNESS: I was asked by Dr. Bear to evaluate this unfortunate 58-year-old gentleman regarding history of sepsis/infection in the setting of suprapubic catheter and nephrostomy tube. Briefly, the patient has a history of right ureteral stone and a nephrostomy tube placed secondary to same. He also has a history of urethral breakdown and erosion and has a suprapubic catheter which he has used to manage his bladder. He presents to the hospital with evidence of infection and I was asked to change his suprapubic catheter. The patient is essentially nonverbal and cannot provide any useful information secondary to his mental status. Most information is gathered from the chart. PAST MEDICAL HISTORY: 1. Dementia/ aphasia 2. COPD. 3. Obstructive hydrocephalus. 4. Right ureteral stone. 5. Obstructive uropathy/urinary retention. 6. Dysphagia. 7. CVA. 8. Urinary tract infection. 9. DVT. 10. Acute tubular necrosis. 11. Anemia. PAST SURGICAL HISTORY: 1. G-tube placement. 2. SP tube placement. 3. Nephrostomy tube placement. MEDICATIONS: Please see chart for current medications administration details. ALLERGIES: Include ciprofloxacin and vancomycin. The patient has been placed on cefepime for antibiotic coverage. SOCIAL HISTORY: Unobtainable. FAMILY HISTORY: Unobtainable. REVIEW OF SYSTEMS: A 14-system review of systems cannot be done as the patient cannot cooperate with questioning. PHYSICAL EXAMINATION: GENERAL: The patient is an older gentleman, resting comfortably, in no obvious distress, uncertain of orientation. HEENT: NC/AT. NECK: Supple. Oropharynx clear. CHEST: Within normal limits. ABDOMEN: Soft, obese, nontender nondistended. G-tube site clean, dry and intact. SP tube site clean, dry, intact. There is a catheter in place with cloudy output. EXTREMITIES: Warm and well perfused. No cyanosis, clubbing, or edema. BACK: No apparent CVA tenderness to percussion. NEUROLOGIC: Notable for aphasia. The patient cannot cooperate with the remainder of the examination. GENITOURINARY: Circumcised male phallus with midurethral erosion down to the penoscrotal junction. There are bilateral descended testes and cord structures. No masses or tenderness to palpation. LABORATORY DATA: White blood cell count 9.5, hematocrit 41.5, platelets 320. Sodium 141, potassium 4.5, chloride 103, bicarbonate 30, BUN 20, creatinine 0.8, glucose 104, and calcium 9.6. LFTs within normal limits. Troponin negative. Urinalysis, specific gravity 1.015. A pH 8.0. Dip test notable for 1+ protein, 5+ blood, positive nitrites, 3+ leukocyte esterase. Microanalysis with 30 to 40 red and 5 to 10 white blood cells per high-power field, many bacteria seen. Urine culture is pending. DIAGNOSTIC IMAGING: CT scan of the abdomen and pelvis from December 08 reveals percutaneous nephrostomy tube with the tip coiled in the right renal pelvis. There is no hydroureter or hydronephrosis. There is a percutaneous cystostomy catheter with expected positioning. There is a G-tube in place. ASSESSMENT AND PLAN: The patient is a 58-year-old male with history of previous CVA and aphasia. He presents from an outside facility with evidence of sepsis and urinary tract infection. His suprapubic catheter is cloudy and his nephrostomy tube on physical exam does not irrigate indicating that it is clogged. Laboratory data is notable for evidence of urinary tract infection. Diagnostic imaging reveals the findings as described above. Today at the bedside, I changed the patient's suprapubic catheter and irrigated it. I tried to irrigate the patient's nephrostomy tube but it could not do so indicating that the tube was clogged and such it will need to be replaced by Interventional Radiology. I will defer management of antibiotics to ID. Once the patient is otherwise stable, he can be discharged from Urology standpoint. Thank you for allowing to participate in the care of this unfortunate gentleman. Please do not hesitate to contact me for any questions that you may further have regarding his care. I will see him with you as needed. Jameson Mo M.D. DR: Vanessa JOB#: [id number] CC:
[2019-01-03 07:14] LABS: BASOPHILS % (AUTO) 1.9 % (0.0-2.0); EOSINOPHILS % (AUTO) 5.8 % (0.0-3.0); HEMATOCRIT 38.3 % (42.0-52.0); HEMOGLOBIN 12.5 G/DL (14.2-18.0); LYMPHOCYTES % (AUTO) 34.8 % (20.0-45.0); MEAN CORPUSCULAR VOLUME 90 FL (80-99); MONOCYTES % (AUTO) 8.9 % (1.0-10.0); NEUTROPHILS % (AUTO) 48.6 % (45.0-75.0); PLATELET COUNT 285 K/UL (150-450); RED BLOOD COUNT 4.25 M/UL (4.70-6.10); RED CELL DISTRIBUTION WIDTH 13.8 % (11.6-14.8); WHITE BLOOD COUNT 7.8 K/UL (4.8-10.8)
--- NOTE | 2019-01-03 07:30 | NUR ---
HAND-OFF: Report given to CANDI Lizama.
--- NOTE | 2019-01-03 07:31 | NUR ---
NURSE NOTES: Received patient in bed. In no apparent distress. On room air. Kept NPO for CT today. Contact isolation observed. Suprapubic catheter noted, with urine drainage bag to gravity. Will continue plan of care.
--- NOTE | 2019-01-03 07:41 | NUR ---
NURSE NOTES: Dr. Mo called, and he gave telephone order to have IR change the clogged nephrostomy of patient.
[2019-01-03] MEDS: Cefepime HCl 2 GM in NS 110 ML IV SCH (07:50)
[2019-01-03 08:00] LABS: ALANINE AMINOTRANSFERASE 14 U/L (12-78); ALBUMIN 2.8 G/DL (3.4-5.0); ALBUMIN/GLOBULIN RATIO 0.5 (1.0-2.7); ALKALINE PHOSPHATASE 60 U/L (46-116); ANION GAP 10 mmol/L (5-15); ASPARTATE AMINO TRANSFERASE 19 U/L (15-37); BILIRUBIN,TOTAL 0.3 MG/DL (0.2-1.0); BLOOD UREA NITROGEN 12 mg/dL (7-18); CARBON DIOXIDE 24 MMOL/L (21-32); CHLORIDE 104 MMOL/L (98-107); CREATININE 0.6 MG/DL (0.55-1.30); POTASSIUM 3.7 MMOL/L (3.5-5.1); SODIUM 138 MMOL/L (136-145)
--- NOTE | 2019-01-03 08:45 | General Progress Note ---
Assessment/Plan Problem List: (1) Gastrostomy tube dependent ICD Codes: Z93.1 - Gastrostomy status SNOMED: 740664364, 972012777 (2) Obstructive uropathy ICD Codes: N13.9 - Obstructive and reflux uropathy, unspecified SNOMED: 6357986 (3) Obstructive hydrocephalus ICD Codes: G91.1 - Obstructive hydrocephalus SNOMED: 408404138 (4) COPD (chronic obstructive pulmonary disease) ICD Codes: J44.9 - Chronic obstructive pulmonary disease, unspecified SNOMED: 45702633 (5) Diabetes mellitus ICD Codes: E11.9 - Type 2 diabetes mellitus without complications SNOMED: 09356470 (6) Aphasia ICD Codes: R47.01 - Aphasia SNOMED: 13749774 (7) History of CVA (cerebrovascular accident) ICD Codes: Z86.73 - Personal history of transient ischemic attack (TIA), and cerebral infarction without residual deficits SNOMED: 982828158 (8) UTI (urinary tract infection) ICD Codes: N39.0 - Urinary tract infection, site not specified SNOMED: 34664604 (9) ATN (acute tubular necrosis) ICD Codes: N17.0 - Acute kidney failure with tubular necrosis SNOMED: 85026089 Status: stable, progressing Assessment/Plan: abx uro f/u cbc bp am Subjective Constitutional: Reports: weakness Allergies: Coded Allergies: VANCOMYCIN (Verified Allergy, Mild, Redness , 10/29/18) CIPROFLOXACIN (Verified Allergy, Unknown, 08/23/15) All Systems: reviewed and negative except above Subjective sleepy calm Objective Last 24 Hour Vital Signs Date Time Temp Pulse Resp B/P (MAP) Pulse Ox O2 Delivery O2 Flow Rate FiO2 01/03/19 08:00 97.7 58 22 120/74 (89) 98 01/03/19 04:00 60 01/03/19 00:00 98.1 78 18 134/82 (99) 99 01/03/19 00:00 67 01/02/19 21:48 68 115/70 01/02/19 21:00 Non-Rebreather 01/02/19 20:00 97.6 68 18 115/70 (85) 97 01/02/19 16:00 87 01/02/19 15:53 Room Air 01/02/19 12:42 98.0 78 16 128/78 99 Room Air 01/02/19 11:45 97.8 82 14 131/82 98 Room Air 01/02/19 09:28 97.8 78 17 123/89 98 Room Air 01/02/19 09:28 78 17 Room Air 01/02/19 09:25 97.3 78 16 108/73 (85) 98 Room Air Intake and Output 01/02/19 01/03/19 18:59 06:59 Intake Total 130 ml Output Total 1200 ml 650 ml Balance -1070 ml -650 ml Intake Free Water 100 ml Tube Feeding 30 ml Output Urine Total 1200 ml 650 ml # Bowel Movements 2 1 Laboratory Tests 01/02/19 09:06: Urine Color Pale yellow, Urine Appearance Cloudy, Urine pH 8, Urine Specific [place] 1.015, Urine Protein 1+H, Urine Glucose (UA) Negative, Urine Ketones Negative, Urine Blood 5+H, Urine Nitrite PositiveH, Urine Bilirubin Negative, Urine Urobilinogen Normal, Urine Leukocyte Esterase 3+H, Urine RBC 30-40H, Urine WBC 5-10H, Urine Squamous Epithelial Cells Occasional, Urine Triple Phosphate Crystals ManyH, Urine Amorphous Sediment ManyH, Urine Bacteria ManyH 01/02/19 09:25: White Blood Count 9.5, Red Blood Count 4.62L, Hemoglobin 13.2L, Hematocrit 41.5L , Mean Corpuscular Volume 90, Mean Corpuscular Hemoglobin 28.6, Mean Corpuscular Hemoglobin Concent 31.8L, Red Cell Distribution Width 15.2H, Platelet Count 320, Mean Platelet Volume 7.2, Neutrophils (%) (Auto) 55.3, Lymphocytes (%) (Auto) 33.9, Monocytes (%) (Auto) 4.9, Eosinophils (%) (Auto) 4.3H, Basophils (%) (Auto) 1.6, Sodium Level 141, Potassium Level 4.5, Chloride Level 103, Carbon Dioxide Level 30, Anion Gap 8, Blood Urea Nitrogen 20H, Creatinine 0.8, Estimat Glomerular Filtration Rate > 60, Glucose Level 104, Lactic Acid Level 3.40H, Calcium Level 9.6, Phosphorus Level 4.5, Magnesium Level 2.4, Total Bilirubin 0.3, Aspartate Amino Transf (AST/SGOT) 29, Alanine Aminotransferase (ALT/SGPT) 15, Alkaline Phosphatase 71, Total Creatine Kinase 75, Creatine Kinase MB < 0.5, Creatine Kinase MB Relative Index 0.6, Troponin I 0.000, Pro-B-Type Natriuretic Peptide 94, Total Protein 9.0H, Albumin 3.2L, Globulin 5.8, Albumin/Globulin Ratio 0.6L 01/02/19 11:03: Lactic Acid Level 1.10 01/03/19 06:00: White Blood Count 7.8, Red Blood Count 4.25L, Hemoglobin 12.5L, Hematocrit 38.3L , Mean Corpuscular Volume 90, Mean Corpuscular Hemoglobin 29.4, Mean Corpuscular Hemoglobin Concent 32.6, Red Cell Distribution Width 13.8, Platelet Count 285, Mean Platelet Volume 7.7, Neutrophils (%) (Auto) 48.6, Lymphocytes (% ) (Auto) 34.8, Monocytes (%) (Auto) 8.9, Eosinophils (%) (Auto) 5.8H, Basophils (%) (Auto) 1.9, Sodium Level 138, Potassium Level 3.7, Chloride Level 104, Carbon Dioxide Level 24, Anion Gap 10, Blood Urea Nitrogen 12, Creatinine 0.6, Estimat Glomerular Filtration Rate > 60, Glucose Level 102, Calcium Level 9.0, Total Bilirubin 0.3, Aspartate Amino Transf (AST/SGOT) 19, Alanine Aminotransferase (ALT/SGPT) 14, Alkaline Phosphatase 60, Total Protein 8.0, Albumin 2.8L, Globulin 5.2, Albumin/Globulin Ratio 0.5L Height (Feet): 5 Height (Inches): 7.00 Weight (Pounds): 201 General Appearance: lethargic EENT: normal ENT inspection Neck: normal alignment Cardiovascular: normal peripheral pulses, normal rate, regular rhythm Respiratory/Chest: chest wall non-tender, lungs clear, normal breath sounds Abdomen: normal bowel sounds, non tender, soft Extremities: normal inspection Edema: no edema noted Arm (L), no edema noted Arm (R), no edema noted Leg (L), no edema noted Leg (R), no edema noted Pedal (L), no edema noted Pedal (R), no edema noted Generalized Neurologic: motor weakness Skin: normal pigmentation, warm/dry Jaylen Bear DO Jan 03, 2019 08:45
[2019-01-03] MEDS: Carvedilol 6.25mg Tab GT SCH ×2 (08:58→20:55)
[2019-01-03] MEDS: Heparin 5000 units/ml inj SUBQ SCH ×2 (08:59→20:56)
[2019-01-03] MEDS: D5 1/2NS 1,000 ML IV SCH (08:59)
--- NOTE | 2019-01-03 10:20 | NUR ---
PT NOTE Received MD order for PT evaluation, medical record reviewed. Patient at baseline is dependent with all functional mobility, is essentially bedbound, transfers to michelle chair with Eris lift. Skilled inpatient PT intervention not warranted due to dependent level of function, patient discharged from PT, Alda RN notified.
--- NOTE | 2019-01-03 11:14 | Consultation ---
History of Present Illness General Date patient seen: Jan 03, 2019 Chief Complaint: General Complaint Present Illness HPI 58-year-old male with extensive PMHx including nephrostomy, suprapubic catheter , bed bound brought in from nursing facility with CC of hematuria. Patient been noted to have increased blood from nephrostomy site for 1 day. Pt is admitted for further treatment. Allergies: Coded Allergies: VANCOMYCIN (Verified Allergy, Mild, Redness , 10/29/18) CIPROFLOXACIN (Verified Allergy, Unknown, 08/23/15) Medication History Scheduled Bisacodyl (Dulcolax), 10 MG RC PRN, (Reported) Carvedilol (Coreg), 6.25 MG GT EVERY 12 HOURS Carvedilol (Coreg), 6.25 MG ORAL EVERY 12 HOURS, (Reported) Cefepime Hcl/D5w (Cefepime-Dextrose 1 Gm/50 Ml), 1 GM IVPB EVERY 12 HOURS, ( Reported) Cran/Vitc/Mannose/Inulin/Brom (Uti-Stat Liquid), 3,875 MG GT BID, (Reported) Cranberry Fruit Concentrate (Cranberry), 900 MG GT BID, (Reported) Docusate Sodium* (Docusate Sodium*), 250 MG GT DAILY, (Reported) Lansoprazole* (Lansoprazole*), 30 MG GT BID, (Reported) Linezolid* (Zyvox*), 600 MG GT EVERY 12 HOURS Nystatin (Nystatin), 1 EACH MC TID, (Reported) Sennosides (Senna), 8.6 MG GT QHS, (Reported) Sennosides (Senokot), 17.2 MG PO QHS, (Reported) Trimethoprim/Sulfamethoxazole 160/800* (Bactrim Ds Tablet*), 1 TAB GT TWICE A DAY, (Reported) Trimethoprim/Sulfamethoxazole 160/800* (Bactrim Ds Tablet*), 1 TAB ORAL TWICE A DAY, (Reported) Scheduled PRN Acetaminophen (Tylenol), 650 MG GT Q4H PRN for Mild Pain (Pain Scale 1-3), ( Reported) Acetaminophen* (Tylenol Extra Strength*), 2 TAB GT Q4H PRN for Moderate Pain ( Pain Scale 4-6), (Reported) Magnesium Hydroxide* (Milk Of Magnesia*), 30 ML GT QHS PRN for Constipation, ( Reported) Na Phos,M-B/Na Phos,Di-Ba (Fleet Enema), 133 ML RC QOD PRN for Constipation, ( Reported) Patient History Healthcare decision maker Resuscitation status Advanced Directive on File Past Medical/Surgical History Past Medical/Surgical History: (1) Obstructive uropathy (2) Obstructive hydrocephalus (3) COPD (chronic obstructive pulmonary disease) (4) Diabetes mellitus (5) Feeding by G-tube (6) History of CVA (cerebrovascular accident) (7) History of DVT (deep vein thrombosis) (8) Suprapubic catheter (9) Nephrostomy status Review of Systems All Other Systems: negative except mentioned in HPI Physical Exam General Appearance: WD/WN Lines, tubes and drains: peripheral HEENT: normocephalic, atraumatic Neck: non-tender, normal alignment Respiratory/Chest: chest wall non-tender, lungs clear Cardiovascular/Chest: normal peripheral pulses Abdomen: normal bowel sounds, non tender Genitourinary/Rectal: normal genital exam Extremities: normal range of motion Last 24 Hour Vital Signs Date Time Temp Pulse Resp B/P (MAP) Pulse Ox O2 Delivery O2 Flow Rate FiO2 01/03/19 09:00 Non-Rebreather 01/03/19 08:58 58 120/74 01/03/19 08:00 97.7 58 22 120/74 (89) 98 01/03/19 07:43 61 01/03/19 04:00 60 01/03/19 00:00 98.1 78 18 134/82 (99) 99 01/03/19 00:00 67 01/02/19 21:48 68 115/70 01/02/19 21:00 Non-Rebreather 01/02/19 20:00 97.6 68 18 115/70 (85) 97 01/02/19 16:00 87 01/02/19 15:53 Room Air 01/02/19 12:42 98.0 78 16 128/78 99 Room Air 01/02/19 11:45 97.8 82 14 131/82 98 Room Air Intake and Output 01/02/19 01/03/19 18:59 06:59 Intake Total 130 ml Output Total 1200 ml 650 ml Balance -1070 ml -650 ml Intake Free Water 100 ml Tube Feeding 30 ml Output Urine Total 1200 ml 650 ml # Bowel Movements 2 1 Laboratory Tests Test 01/03/19 06:00 White Blood Count 7.8 K/UL (4.8-10.8) Red Blood Count 4.25 M/UL (4.70-6.10) L Hemoglobin 12.5 G/DL (14.2-18.0) L Hematocrit 38.3 % (42.0-52.0) L Mean Corpuscular Volume 90 FL (80-99) Mean Corpuscular Hemoglobin 29.4 PG (27.0-31.0) Mean Corpuscular Hemoglobin Concent 32.6 G/DL (32.0-36.0) Red Cell Distribution Width 13.8 % (11.6-14.8) Platelet Count 285 K/UL (150-450) Mean Platelet Volume 7.7 FL (6.5-10.1) Neutrophils (%) (Auto) 48.6 % (45.0-75.0) Lymphocytes (%) (Auto) 34.8 % (20.0-45.0) Monocytes (%) (Auto) 8.9 % (1.0-10.0) Eosinophils (%) (Auto) 5.8 % (0.0-3.0) H Basophils (%) (Auto) 1.9 % (0.0-2.0) Sodium Level 138 MMOL/L (136-145) Potassium Level 3.7 MMOL/L (3.5-5.1) Chloride Level 104 MMOL/L (98-107) Carbon Dioxide Level 24 MMOL/L (21-32) Anion Gap 10 mmol/L (5-15) Blood Urea Nitrogen 12 mg/dL (7-18) Creatinine 0.6 MG/DL (0.55-1.30) Estimat Glomerular Filtration Rate > 60 mL/min (>60) Glucose Level 102 MG/DL (74-106) Calcium Level 9.0 MG/DL (8.5-10.1) Total Bilirubin 0.3 MG/DL (0.2-1.0) Aspartate Amino Transf (AST/SGOT) 19 U/L (15-37) Alanine Aminotransferase (ALT/SGPT) 14 U/L (12-78) Alkaline Phosphatase 60 U/L (46-116) Total Protein 8.0 G/DL (6.4-8.2) Albumin 2.8 G/DL (3.4-5.0) L Globulin 5.2 g/dL Albumin/Globulin Ratio 0.5 (1.0-2.7) L Height (Feet): 5 Height (Inches): 7.00 Weight (Pounds): 201 Medications Current Medications Medications (Trade) Dose Ordered Sig/Fab Route PRN Reason Start Time Stop Time Status Last Admin Dose Admin Carvedilol (Coreg) 6.25 mg EVERY 12 HOURS GT 01/02/19 21:00 02/01/19 20:59 01/02/19 21:48 Dextrose (Dextrose 50%) 25 ml Q30M PRN IV Hypoglycemia 01/02/19 13:00 02/01/19 12:59 Dextrose (Dextrose 50%) 50 ml Q30M PRN IV Hypoglycemia 01/02/19 13:00 02/01/19 12:59 Dextrose/Sodium Chloride 1,000 ml @ 50 mls/hr Q20H IV 01/02/19 12:55 02/01/19 12:54 01/03/19 08:59 Heparin Sodium (Porcine) (Heparin 5000 units/ml) 5,000 units EVERY 12 HOURS SUBQ 01/02/19 21:00 02/01/19 20:59 01/02/19 21:47 Lorazepam (Ativan 2mg/ml 1ml) 0.5 mg Q4H PRN IV For Anxiety 01/02/19 13:00 01/09/19 12:59 Morphine Sulfate (Morphine Sulfate) 1 mg Q4H PRN IVP For Pain 01/02/19 13:00 01/09/19 12:59 Ondansetron HCl (Zofran) 4 mg Q6H PRN IVP Nausea & Vomiting 01/02/19 13:00 02/01/19 12:59 Assessment/Plan Problem List: (1) Suprapubic catheter dysfunction ICD Codes: T83.010A - Breakdown (mechanical) of cystostomy catheter, initial encounter SNOMED: 160743294 (2) COPD (chronic obstructive pulmonary disease) ICD Codes: J44.9 - Chronic obstructive pulmonary disease, unspecified SNOMED: 63679330 (3) Nephrostomy status ICD Codes: Z93.6 - Other artificial openings of urinary tract status SNOMED: 675051886, 875370443 (4) Suprapubic catheter ICD Codes: Z93.59 - Other cystostomy status SNOMED: 062730944, 669479109 (5) History of DVT (deep vein thrombosis) ICD Codes: Z86.718 - Personal history of other venous thrombosis and embolism SNOMED: 030934287 (6) Obstructive hydrocephalus ICD Codes: G91.1 - Obstructive hydrocephalus SNOMED: 827213587 (7) History of CVA (cerebrovascular accident) ICD Codes: Z86.73 - Personal history of transient ischemic attack (TIA), and cerebral infarction without residual deficits SNOMED: 694013842 (8) Encephalopathy chronic ICD Codes: G93.49 - Other encephalopathy SNOMED: 39169072 (9) Decubitus skin ulcer ICD Codes: L89.90 - Pressure ulcer of unspecified site, unspecified stage SNOMED: 611921938 (10) Feeding by G-tube ICD Codes: Z93.1 - Gastrostomy status SNOMED: 741832096, 269268093 Assessment/Plan: symptomatic treatment f/u urology recommendation Radiology to change nephrostomy tube. Rigoberto Bryant MD Jan 03, 2019 11:14
--- NOTE | 2019-01-03 12:06 | Diagnostic Imaging Report ---
Indication: Abdominal pain. Right nephrostomy Technique: Continuous helical transaxial imaging of the abdomen and pelvis was obtained from the lung bases to the pubic symphysis. No intravenous contrast was administered. Coronal 2-D reformats were also obtained. Automatic Exposure Control was utilized. Total Dose length Product (DLP): [address] Dose Index Volume (CTDIvol): 40 mGy Comparison: 12/08/2018 CT Findings: There is a right percutaneous nephrostomy again demonstrated. The catheter appears to be in good position with the pigtail curled in the renal pelvis. There is no hydronephrosis. The bladder is relatively nondistended. There is a suprapubic cystostomy catheter noted which appears to be in good position. Trace amount of air noted in the bladder lumen. Again there is a cyst in the anterior part of the left kidney noted. There is a tiny hyperdensity in the left kidney which may be a proteinaceous cyst or hemorrhagic cyst. 2.5 cm hypodensity in the liver appear stable. There is minimal basal atelectasis. Tiny gallstone noted. Gastrostomy is present in good position. Bowel gas pattern is nonobstructive. Metallic clips noted in the lower abdomen. Normal appendix demonstrated. There is no free fluid. Aortoiliac calcifications are noted. IMPRESSION: Right percutaneous nephrostomy catheter demonstrated and in good position. No hydronephrosis demonstrated indicating the catheter is functional. Correlate with the catheter output. Suprapubic percutaneous cystostomy in good position. Nondistended bladder. No evidence of renal or intra-abdominal abscess Multiple additional incidental findings as described above. The CT scanner at [facility] is accredited by the [employer] and the scans are performed using dose optimization techniques as appropriate to a performed exam including Automatic Exposure control.
--- NOTE | 2019-01-03 13:11 | NUR ---
RD ASSESSMENT & RECOMMENDATIONS SEE CARE ACTIVITY FOR COMPLETE ASSESSMENT DAILY ESTIMATED NEEDS: Needs based on Cardiac, DM, wasting, obese/ 77.5kg abw 20-25 kcals/kg 4968-9438 total kcals 1.25-1.5 g protein/kg 93-116 g total protein 25-30 mL/kg 4776-2908 total fluid mLs NUTRITION DIAGNOSIS: Swallowing difficulty related to dysphagia s/p cva as evidenced by pt dependent on PEG for all nutrition and hydration needs. CURRENT TF:Jevity 1.2 @30 ENTERAL NUTRITION RECOMMENDATIONS: Glucerna 1.5 @ 50ml/hr x 24 hrs to provide 1200ml, 1800kcal, 99g prot, 911ml free water * Rec TF change d/t h/o DM * as medically able, start Glucerna 1.5 @30ml/hr, advance as tolerated 10ml/hr q4-6 hrs to goal * Meets 100% est needs * HOB over 30 degrees/ water flush per MD. ------ ADDITIONAL RECOMMENDATIONS: 1) Calibrated bedscale wt for accurate CBW 2) Monitor lytes, replete as needed 3) Consider NISS/ accuchecks w/ TF for BG control- h/o DM 4) Rec wound eval (wound photos noted) Add JASMIN BID via GT + Vit C 250mg BID .
[2019-01-03] MEDS ORDERED: Heparin1,000 units/500ml Premix(Conc:2 units/ml) INJ PRN (13:45)
[2019-01-03] MEDS ORDERED: Lidocaine 1% Plain 30 ml INJ PRN (13:45)
[2019-01-03] MEDS ORDERED: Omnipaque-300 100ml vial INJ PRN (14:00)
--- NOTE | 2019-01-03 14:30 | NUR ---
NURSE NOTES: Patient is back from radiology department, s/p right nephrostomy tube replacement. With drainage bag, and yellow output noted.
--- NOTE | 2019-01-03 16:26 | Infectious Diseases Prog Note ---
Assessment/Plan Assessment/Plan Afebrile nl WBC UCX: GNR (Colonizer ) Blood in R Nephrostomy 01/03 sp replacement of Nephrostomy and Supra pubic cath -01/03 -Ct of Abd wo contrast : Right percutaneous nephrostomy catheter demonstrated and in good position. No hydronephrosis demonstrated indicating the catheter is functional. Correlate with the catheter output. -12/13 SP Successful exchange of right nephrostomy under fluoroscopic guidance , as described -u/a wbc tnct, Ucx P. stuarti (S Ceftriaxone, Zosyn) -12/08 CT abd/p: Interval resolution of the diffuse small bowel distention. No evidence of small bowel obstruction and this exam. Moderate to large volume stool in the rectosigmoid region, which may suggest impaction or constipation. No significant fecal retention in the proximal colon. Percutaneous nephrostomy tube with the tip coiled in the right renal pelvis. No hydronephrosis or hydroureter. Percutaneous cystostomy catheter, with expected positioning.. Percutaneous gastrostomy tube in place, with expected positioning. Unchanged appearance of scattered hepatic and left renal cysts. -11/08 SP R nephrostomy --findings: small amount slightly purulent urine sent for C and S. Intraprocedural images demonstrate dilated right renal collecting system. Multiple filling defects are compatible with a calculi demonstrated on recent CT scan Hx of recent Septic shock- SP -MRSA/ P Mirabilis, E. fecalis bacteremia- m/l source UTI from obstructive stone Hx of recent UTI ucx >100k P. mirabilis (Previously reporte as onlyS Genta, Ertapenem, Zosyn; now hs been updated to R Nitrofurantoin and otherwise S) Hx of recent Pneum -sp cx PsA (neri S), MRSA TCP , SP CVA/TIA Dm2 CKD suprapubic catheter DVT hypertensive heart disease [place] resident Plan: DC Cefepime # 2 and monitor pt off of AB RRx - 11/19 SP Zyvox and Cefepime -11/02 SP Meropenem #4 -11/01 Sp Amikacin #4 , IV Vancomycin #3 -10/29 SP Ertapenem #1, IV Vancomycin x1 -f/u cx (Bl ,Ur) -Monitor CBC/CMP, temperatures -aspiration precautions -Uro f/u Subjective Allergies: Coded Allergies: VANCOMYCIN (Verified Allergy, Mild, Redness , 10/29/18) CIPROFLOXACIN (Verified Allergy, Unknown, 08/23/15) Subjective sp replacement of Nephrostomy and Supra pubic cath Objective Vital Signs Last 24 Hour Vital Signs Date Time Temp Pulse Resp B/P (MAP) Pulse Ox O2 Delivery O2 Flow Rate FiO2 01/03/19 13:46 83 18 01/03/19 12:00 98.3 66 21 131/89 (103) 98 01/03/19 09:00 Room Air 01/03/19 08:58 58 120/74 01/03/19 08:00 97.7 58 22 120/74 (89) 98 01/03/19 07:43 61 01/03/19 04:00 60 01/03/19 00:00 98.1 78 18 134/82 (99) 99 01/03/19 00:00 67 01/02/19 21:48 68 115/70 01/02/19 21:00 Non-Rebreather 01/02/19 20:00 97.6 68 18 115/70 (85) 97 Height (Feet): 5 Height (Inches): 7.00 Weight (Pounds): 201 HEENT: mucous membranes moist Respiratory/Chest: no respiratory distress Cardiovascular: regular rhythm Abdomen: soft, non tender Microbiology Date/Time Source Procedure Growth Status 01/02/19 09:06 Urine,Clean Catch Urine Culture - Preliminary Gram Negative Oswaldo Resulted Laboratory Tests Test 01/03/19 06:00 01/03/19 11:25 White Blood Count 7.8 K/UL (4.8-10.8) Red Blood Count 4.25 M/UL (4.70-6.10) L Hemoglobin 12.5 G/DL (14.2-18.0) L Hematocrit 38.3 % (42.0-52.0) L Mean Corpuscular Volume 90 FL (80-99) Mean Corpuscular Hemoglobin 29.4 PG (27.0-31.0) Mean Corpuscular Hemoglobin Concent 32.6 G/DL (32.0-36.0) Red Cell Distribution Width 13.8 % (11.6-14.8) Platelet Count 285 K/UL (150-450) Mean Platelet Volume 7.7 FL (6.5-10.1) Neutrophils (%) (Auto) 48.6 % (45.0-75.0) Lymphocytes (%) (Auto) 34.8 % (20.0-45.0) Monocytes (%) (Auto) 8.9 % (1.0-10.0) Eosinophils (%) (Auto) 5.8 % (0.0-3.0) H Basophils (%) (Auto) 1.9 % (0.0-2.0) Sodium Level 138 MMOL/L (136-145) Potassium Level 3.7 MMOL/L (3.5-5.1) Chloride Level 104 MMOL/L (98-107) Carbon Dioxide Level 24 MMOL/L (21-32) Anion Gap 10 mmol/L (5-15) Blood Urea Nitrogen 12 mg/dL (7-18) Creatinine 0.6 MG/DL (0.55-1.30) Estimat Glomerular Filtration Rate > 60 mL/min (>60) Glucose Level 102 MG/DL (74-106) Calcium Level 9.0 MG/DL (8.5-10.1) Total Bilirubin 0.3 MG/DL (0.2-1.0) Aspartate Amino Transf (AST/SGOT) 19 U/L (15-37) Alanine Aminotransferase (ALT/SGPT) 14 U/L (12-78) Alkaline Phosphatase 60 U/L (46-116) Total Protein 8.0 G/DL (6.4-8.2) Albumin 2.8 G/DL (3.4-5.0) L Globulin 5.2 g/dL Albumin/Globulin Ratio 0.5 (1.0-2.7) L Prothrombin Time 10.7 SEC (9.30-11.50) Prothromb Time International Ratio 1.0 (0.9-1.1) Activated Partial Thromboplast Time 32 SEC (23-33) Current Medications Medications (Trade) Dose Ordered Sig/Fab Route PRN Reason Start Time Stop Time Status Last Admin Dose Admin Carvedilol (Coreg) 6.25 mg EVERY 12 HOURS GT 01/02/19 21:00 02/01/19 20:59 01/02/19 21:48 Dextrose (Dextrose 50%) 25 ml Q30M PRN IV Hypoglycemia 01/02/19 13:00 02/01/19 12:59 Dextrose (Dextrose 50%) 50 ml Q30M PRN IV Hypoglycemia 01/02/19 13:00 02/01/19 12:59 Dextrose/Sodium Chloride 1,000 ml @ 50 mls/hr Q20H IV 01/02/19 12:55 02/01/19 12:54 01/03/19 08:59 Heparin Sodium (Porcine) (Heparin 5000 units/ml) 5,000 units EVERY 12 HOURS SUBQ 01/02/19 21:00 02/01/19 20:59 01/02/19 21:47 Heparin Sodium/ Sodium Chloride (Heparin 1000 units/500ml Premix) 1,000 unit ONCE PRN INJ radiology procedure 01/03/19 13:45 01/05/19 13:44 Iohexol (OMNIPAQUE-300 100ml) 100 ml ONCE PRN INJ radiology procedure 01/03/19 14:00 01/05/19 13:59 Lidocaine HCl (Xylocaine 1% 30ml) 30 ml ONCE PRN INJ radiology procedure 01/03/19 13:45 01/05/19 13:44 Lorazepam (Ativan 2mg/ml 1ml) 0.5 mg Q4H PRN IV For Anxiety 01/02/19 13:00 01/09/19 12:59 Morphine Sulfate (Morphine Sulfate) 1 mg Q4H PRN IVP For Pain 01/02/19 13:00 01/09/19 12:59 Ondansetron HCl (Zofran) 4 mg Q6H PRN IVP Nausea & Vomiting 01/02/19 13:00 02/01/19 12:59 Peterson Cabrera MD Jan 03, 2019 16:26
--- NOTE | 2019-01-03 19:00 | NUR ---
NURSE NOTES: 150 ml ouput noted from nephrostomy. Patient cooperated with bed bath at this time. Skin remains intact. Will continue plan of care.
--- NOTE | 2019-01-03 19:45 | NUR ---
HAND-OFF: Report given to Janette Maya RN.
--- NOTE | 2019-01-03 19:50 | NUR ---
NURSE NOTES: Received report from CANDI Lizama. Patient in bed awake HOB 35 deg., showing no signs of acute distress. Aspiration precaution observed. Pt. is non-verbal. AOx1. Respiration even and non labored on room air. No sob noted. Pt. noted with GTube on Glucerna 1.5 @30cc/hr (goal 50cc/hr) patent and intact. No residual noted. Pt. on suprapubic cath. Noted, dressing intact and draining. Pt. noted on nephrostomy drain tube with Serosanguineous drain, dressing intact. IV noted on right FA 20g w/ D5 0.45NS @ 50cc/hr and IV on left ua 20g SL patent and intact. Bed in lowest position, side rails up x2, wheels locked. Call button within reach. All needs attended and met. Will continue plan of care.
--- NOTE | 2019-01-03 20:04 | NUR ---
CASE MANAGEMENT: REVIEW 58Y/MALE BIBA FROM [facility] CC: BLOOD IN NEPHROSTOMY TUBE DRAIN X1 DAY SI: MALFUNCTIONING NEPHROSTOMY TUBE . UTI T 97.3 HR 78 RR 16 BP 108/73 SAT 98% ROOM AIR H/H 13.2/41.5 LACTIC ACID 3.40 IS: CEFEPIME IV Q12HR NS IVF BOLUS X1 FLAGYL IV X1 PATIENT ADMITTED TO TELEMETRY UNIT 01/02/2019 DCP: PATIENT IS FROM [facility]
[2019-01-04] VITALS: BP 142/72
[2019-01-04 04:00] VITALS: BP 132/102
[2019-01-04] MEDS: D5 1/2NS 1,000 ML IV SCH ×2 (05:46→21:02)
[2019-01-04 07:52] LABS: ANION GAP 8 mmol/L (5-15); BLOOD UREA NITROGEN 8 mg/dL (7-18); CALCIUM 9.4 MG/DL (8.5-10.1); CARBON DIOXIDE 28 MMOL/L (21-32); CHLORIDE 106 MMOL/L (98-107); CREATININE 0.8 MG/DL (0.55-1.30); POTASSIUM 4.4 MMOL/L (3.5-5.1); SODIUM 142 MMOL/L (136-145)
--- NOTE | 2019-01-04 07:52 | NUR ---
HAND-OFF: Report given to Maria E Madison RN.
--- NOTE | 2019-01-04 07:53 | NUR ---
NURSE NOTES: Patient stable. No s/s of distress. RR even and unlabored on RA. Gtube feeding at 50mL/hr. HOB at 30 degrees. Buttock dressing intact. Side rails up x2, bed locked in lowest position. Will continue to monitor.
[2019-01-04 07:56] LABS: BASOPHILS % (AUTO) 1.9 % (0.0-2.0); EOSINOPHILS % (AUTO) 3.8 % (0.0-3.0); HEMATOCRIT 41.4 % (42.0-52.0); HEMOGLOBIN 13.4 G/DL (14.2-18.0); LYMPHOCYTES % (AUTO) 32.7 % (20.0-45.0); MEAN CORPUSCULAR VOLUME 89 FL (80-99); MONOCYTES % (AUTO) 8.3 % (1.0-10.0); NEUTROPHILS % (AUTO) 53.2 % (45.0-75.0); PLATELET COUNT 320 K/UL (150-450); RED BLOOD COUNT 4.66 M/UL (4.70-6.10); RED CELL DISTRIBUTION WIDTH 14.9 % (11.6-14.8); WHITE BLOOD COUNT 8.4 K/UL (4.8-10.8)
[2019-01-04 08:01] VITALS: BP 120/80
[2019-01-04] MEDS: Carvedilol 6.25mg Tab GT SCH ×2 (08:46→21:02)
[2019-01-04] MEDS: Heparin 5000 units/ml inj SUBQ SCH ×3 (08:47→21:03)
--- NOTE | 2019-01-04 09:33 | General Progress Note ---
Assessment/Plan Problem List: (1) Gastrostomy tube dependent ICD Codes: Z93.1 - Gastrostomy status SNOMED: 669070087, 328273770 (2) Obstructive uropathy ICD Codes: N13.9 - Obstructive and reflux uropathy, unspecified SNOMED: 2568155 (3) Obstructive hydrocephalus ICD Codes: G91.1 - Obstructive hydrocephalus SNOMED: 546778429 (4) COPD (chronic obstructive pulmonary disease) ICD Codes: J44.9 - Chronic obstructive pulmonary disease, unspecified SNOMED: 38025367 (5) Diabetes mellitus ICD Codes: E11.9 - Type 2 diabetes mellitus without complications SNOMED: 88444783 (6) Aphasia ICD Codes: R47.01 - Aphasia SNOMED: 23738821 (7) History of CVA (cerebrovascular accident) ICD Codes: Z86.73 - Personal history of transient ischemic attack (TIA), and cerebral infarction without residual deficits SNOMED: 235384785 (8) UTI (urinary tract infection) ICD Codes: N39.0 - Urinary tract infection, site not specified SNOMED: 43535346 (9) ATN (acute tubular necrosis) ICD Codes: N17.0 - Acute kidney failure with tubular necrosis SNOMED: 19653022 Status: stable, progressing Assessment/Plan: abx uro f/u cbc bp am Subjective Constitutional: Reports: weakness Allergies: Coded Allergies: VANCOMYCIN (Verified Allergy, Mild, Redness , 10/29/18) CIPROFLOXACIN (Verified Allergy, Unknown, 08/23/15) All Systems: reviewed and negative except above Subjective sleepy calm Objective Last 24 Hour Vital Signs Date Time Temp Pulse Resp B/P (MAP) Pulse Ox O2 Delivery O2 Flow Rate FiO2 01/04/19 08:46 71 120/80 01/04/19 08:03 Room Air 01/04/19 08:01 71 20 120/80 (93) 97 01/04/19 04:00 65 01/04/19 04:00 97.3 71 19 132/102 (112) 94 01/04/19 00:00 73 01/04/19 00:00 98.2 62 17 142/72 (95) 93 01/03/19 21:00 Room Air 01/03/19 20:55 65 137/80 01/03/19 20:00 71 01/03/19 20:00 98.1 65 18 137/80 (99) 92 01/03/19 16:00 98.2 65 21 126/80 (95) 98 01/03/19 15:23 80 01/03/19 13:55 66 18 145/85 (105) 100 01/03/19 13:50 70 18 138/88 (105) 99 01/03/19 13:46 83 18 01/03/19 13:45 69 20 140/90 (107) 99 01/03/19 12:00 98.3 66 21 131/89 (103) 98 01/03/19 11:29 72 Intake and Output 01/03/19 01/04/19 19:00 07:00 Intake Total 499.1666 ml 350 ml Output Total 1250 ml 900 ml Balance -750.8334 ml -550 ml Intake Free Water 100 ml IV Total 499.1666 ml 200 ml Tube Feeding 50 ml Output Urine Total 1100 ml 700 ml Other 150 ml 200 ml # Bowel Movements 1 Laboratory Tests 01/03/19 11:25: Prothrombin Time 10.7, Prothromb Time International Ratio 1.0, Activated Partial Thromboplast Time 32 01/04/19 07:10: White Blood Count 8.4, Red Blood Count 4.66L, Hemoglobin 13.4L, Hematocrit 41.4L , Mean Corpuscular Volume 89, Mean Corpuscular Hemoglobin 28.8, Mean Corpuscular Hemoglobin Concent 32.4, Red Cell Distribution Width 14.9H, Platelet Count 320, Mean Platelet Volume 7.4, Neutrophils (%) (Auto) 53.2, Lymphocytes (%) (Auto) 32.7, Monocytes (%) (Auto) 8.3, Eosinophils (%) (Auto) 3.8H, Basophils (%) (Auto) 1.9, Sodium Level 142, Potassium Level 4.4, Chloride Level 106, Carbon Dioxide Level 28, Anion Gap 8, Blood Urea Nitrogen 8, Creatinine 0.8, Estimat Glomerular Filtration Rate > 60, Glucose Level 97, Calcium Level 9.4 Height (Feet): 5 Height (Inches): 7.00 Weight (Pounds): 201 General Appearance: lethargic EENT: normal ENT inspection Neck: normal alignment Cardiovascular: normal peripheral pulses, normal rate, regular rhythm Respiratory/Chest: chest wall non-tender, lungs clear, normal breath sounds Abdomen: normal bowel sounds, non tender, soft Extremities: normal inspection Edema: no edema noted Arm (L), no edema noted Arm (R), no edema noted Leg (L), no edema noted Leg (R), no edema noted Pedal (L), no edema noted Pedal (R), no edema noted Generalized Neurologic: motor weakness Skin: normal pigmentation, warm/dry Jaylen Bear DO Jan 04, 2019 09:33
[2019-01-04] MEDS ORDERED: D5 1/2NS 1000ml IV ONE (16:09)
--- NOTE | 2019-01-04 17:51 | NUR ---
NURSE NOTES: Dr. Bear notified that patient is refusing tele and keeps removing tele box and saying "no".
--- NOTE | 2019-01-04 18:59 | NUR ---
NURSE NOTES: Contacted Md Bear and Manny regarding pt refusing cardiac monitoring .. both Md hampton and primary stated he will most likely discharge the pt tomorrow.
--- NOTE | 2019-01-04 19:20 | NUR ---
HAND-OFF: Report given to Cesar Enriquez RN. Patient stable resting comfortably in bed.
--- NOTE | 2019-01-04 19:20 | NUR ---
NURSE NOTES: Received report from CANDI Acosta. GT in place and patent. HOB elevated. will continue plan of care.
[2019-01-04 20:00] VITALS: BP 129/83
[2019-01-05] VITALS: BP 113/72
--- NOTE | 2019-01-05 01:41 | NUR ---
NURSE NOTES: Pt resting in bed, asleep with no acute s/s of distress noted. G tube feed tolerated - Glucerna 1.5 at 50. No gastric residual noted, HOB elevated with suction at bedside. Bed in lowest position, bed alarm on. Call light and belongings within reach.
[2019-01-05 04:00] VITALS: BP 137/70
--- NOTE | 2019-01-05 07:10 | NUR ---
HAND-OFF: Report given to CANDI Chávez. Plan of care endorsed.
--- NOTE | 2019-01-05 07:31 | NUR ---
NURSE NOTES: Received report from CANDI Guerrero. Patient in bed resting, no active s/s cardiac, respiratory distress noticed at this time. Patient AOx0, on room air. G-tube feeding as prescribed rate, tolerating well, no residual at this time. IV on right FA 20G, asymptomatic, patent, intact, IV fluid running as prescribed rate. Suprapubic catheter draining well to gravity, yellow color urine. Right nephrostomy draining well at this time. Endorsed patient refusing behavioral health technician, MD made aware. Bed in lowest position, side rails upx2, call light within reach. Will continue to monitor.
--- NOTE | 2019-01-05 07:40 | General Progress Note ---
Assessment/Plan Problem List: (1) Gastrostomy tube dependent ICD Codes: Z93.1 - Gastrostomy status SNOMED: 769485702, 032903421 (2) Obstructive uropathy ICD Codes: N13.9 - Obstructive and reflux uropathy, unspecified SNOMED: 7829852 (3) Obstructive hydrocephalus ICD Codes: G91.1 - Obstructive hydrocephalus SNOMED: 817292209 (4) COPD (chronic obstructive pulmonary disease) ICD Codes: J44.9 - Chronic obstructive pulmonary disease, unspecified SNOMED: 06077959 (5) Diabetes mellitus ICD Codes: E11.9 - Type 2 diabetes mellitus without complications SNOMED: 32512707 (6) Aphasia ICD Codes: R47.01 - Aphasia SNOMED: 31751227 (7) History of CVA (cerebrovascular accident) ICD Codes: Z86.73 - Personal history of transient ischemic attack (TIA), and cerebral infarction without residual deficits SNOMED: 618944860 (8) UTI (urinary tract infection) ICD Codes: N39.0 - Urinary tract infection, site not specified SNOMED: 43084916 (9) ATN (acute tubular necrosis) ICD Codes: N17.0 - Acute kidney failure with tubular necrosis SNOMED: 07570930 Status: stable, progressing Assessment/Plan: abx uro f/u cbc bp am Subjective Constitutional: Reports: weakness Allergies: Coded Allergies: VANCOMYCIN (Verified Allergy, Mild, Redness , 10/29/18) CIPROFLOXACIN (Verified Allergy, Unknown, 08/23/15) All Systems: reviewed and negative except above Subjective sleepy calm Objective Last 24 Hour Vital Signs Date Time Temp Pulse Resp B/P (MAP) Pulse Ox O2 Delivery O2 Flow Rate FiO2 01/05/19 04:00 97.5 75 18 137/70 (92) 98 01/05/19 00:00 97.5 66 18 113/72 (86) 96 01/04/19 21:02 75 129/83 01/04/19 21:00 Room Air 01/04/19 20:00 97.3 75 18 129/83 (98) 97 01/04/19 15:50 83 01/04/19 12:00 62 01/04/19 08:46 71 120/80 01/04/19 08:03 Room Air 01/04/19 08:01 71 20 120/80 (93) 97 01/04/19 08:00 73 Intake and Output 01/04/19 01/05/19 19:00 07:00 Intake Total 650 ml 1150 ml Output Total 700 ml Balance -50 ml 1150 ml Intake Free Water 300 ml IV Total 50 ml 300 ml Tube Feeding 600 ml 550 ml Output Urine Total 700 ml # Bowel Movements 2 Laboratory Tests 01/05/19 07:20: White Blood Count [Pending], Red Blood Count [Pending], Hemoglobin [Pending], Hematocrit [Pending], Mean Corpuscular Volume [Pending], Mean Corpuscular Hemoglobin [Pending], Mean Corpuscular Hemoglobin Concent [Pending], Red Cell Distribution Width [Pending], Platelet Count [Pending], Mean Platelet Volume [ Pending], Neutrophils (%) (Auto) [Pending], Lymphocytes (%) (Auto) [Pending], Monocytes (%) (Auto) [Pending], Eosinophils (%) (Auto) [Pending], Basophils (%) (Auto) [Pending], Sodium Level [Pending], Potassium Level [Pending], Chloride Level [Pending], Carbon Dioxide Level [Pending], Blood Urea Nitrogen [Pending], Creatinine [Pending], Estimat Glomerular Filtration Rate [Pending], Glucose Level [Pending], Calcium Level [Pending] Height (Feet): 5 Height (Inches): 7.00 Weight (Pounds): 201 General Appearance: lethargic EENT: normal ENT inspection Neck: normal alignment Cardiovascular: normal peripheral pulses, normal rate, regular rhythm Respiratory/Chest: chest wall non-tender, lungs clear, normal breath sounds Abdomen: normal bowel sounds, non tender, soft Extremities: normal inspection Edema: no edema noted Arm (L), no edema noted Arm (R), no edema noted Leg (L), no edema noted Leg (R), no edema noted Pedal (L), no edema noted Pedal (R), no edema noted Generalized Neurologic: responsive Skin: normal pigmentation, warm/dry Jaylen Bear DO Jan 05, 2019 07:40
[2019-01-05 07:57] LABS: ANION GAP 7 mmol/L (5-15); BASOPHILS % (AUTO) 1.7 % (0.0-2.0); BLOOD UREA NITROGEN 11 mg/dL (7-18); CALCIUM 9.3 MG/DL (8.5-10.1); CARBON DIOXIDE 27 MMOL/L (21-32); CHLORIDE 105 MMOL/L (98-107); CREATININE 0.8 MG/DL (0.55-1.30); EOSINOPHILS % (AUTO) 5.1 % (0.0-3.0); HEMATOCRIT 40.8 % (42.0-52.0); HEMOGLOBIN 13.4 G/DL (14.2-18.0); LYMPHOCYTES % (AUTO) 33.5 % (20.0-45.0); MEAN CORPUSCULAR VOLUME 88 FL (80-99); MONOCYTES % (AUTO) 10.4 % (1.0-10.0); NEUTROPHILS % (AUTO) 49.4 % (45.0-75.0); PLATELET COUNT 327 K/UL (150-450); POTASSIUM 4.5 MMOL/L (3.5-5.1); RED BLOOD COUNT 4.62 M/UL (4.70-6.10); RED CELL DISTRIBUTION WIDTH 14.6 % (11.6-14.8); SODIUM 139 MMOL/L (136-145); WHITE BLOOD COUNT 8.7 K/UL (4.8-10.8)
[2019-01-05 08:00] VITALS: BP 139/77
[2019-01-05] MEDS: Carvedilol 6.25mg Tab GT SCH (08:26)
[2019-01-05] MEDS: Heparin 5000 units/ml inj SUBQ SCH (08:28)
--- NOTE | 2019-01-05 10:14 | NUR ---
NURSE NOTES: Per Dr. Cabrera VRE, MRSA colonized. Order noted, entered, carried out.
--- NOTE | 2019-01-05 10:31 | NUR ---
NURSE NOTES: Called and spoke with Moni, supervisor feed house from [facility], informed patient got discharge order. Per Moni, will speak with Admission and DON and will callback. Will continue to monitor, CN made aware.
[2019-01-05 12:00] VITALS: BP 130/75
--- NOTE | 2019-01-05 15:26 | Cardiology Report ---
APPROVED REPORT EKG Measurement Heart [id number] Normal sinus rhythm Inferior infarct, age undetermined Cannot rule out Anterior infarct, age undetermined Abnormal ECG
[2019-01-05] MEDS ORDERED: D5 1/2NS 1000ml IV ONE (15:52)
[2019-01-05 16:00] VITALS: BP 130/84
--- NOTE | 2019-01-05 18:09 | NUR ---
NURSE NOTES: Report given to Moni from [facility] conv. Patient assigned to room 17-C. Family member, Hilton, made aware of discharge. Patient discharged per Dr. Bear to SNF. Patient's ID removed and placed in shredder. IV removed and surveillance monitor returned to front desk monitor. Patient discharge via BLS in a stable condition. Patient has no belonging. Patent suprapubic catheter, right nephrostomy, draining well to gravity, yellow output.
--- NOTE | 2019-01-06 11:07 | Discharge Summary ---
Discharge Summary Discharge Summary _ DATE OF ADMISSION: 01/02/2019 DATE OF DISCHARGE: 01/05/2019 DISCHARGED BY: Dr. Bear REASON FOR ADMISSION: 58 years old male with past medical history of COPD, diabetes mellitus, dysphagia, G-tube, encephalopathy, history of CVA, nephrostomy tube, suprapubic catheter , was brought from the [facility] for evaluation of hematuria. Patient was noted to have increased blood from nephrostomy tube for one day. Also noted urine discoloration in suprapubic catheter. Patient subsequently was sent for evaluation. Upon evaluation patient was afebrile , vital signs were stable. Urinalysis revealed cloudy urine with +1 protein, +5 blood , positive for nitrates, +3 leukocyte esterase. pyuria and bacteria. No leukocytosis , hemoglobin 13.2 hematocrit 41.5. Stable electrolytes. BUN 20, creatinine 0.8, glucose 104. Lactic acid 3.4, repeated 1.1. Stable LFT. Troponin negative. pro BNP 94. EKG revealed sinus rhythm, no acute ischemic changes. Chest x-ray demonstrated no acute cardiopulmonary pathology. In emergency department patient received IV fluids, pancultured and started on empiric antibiotic. Patient subsequently was admitted for further management. CONSULTANTS: hospitalist Dr. Bryant ID specialist Dr. Cabrera urologist Dr. Mo [facility] COURSE: Patient admitted to telemetry floor. Urologist seen and evaluated patient. Per urologist, patient had evidence of sepsis and urinary tract infection . Suprapubic catheter was changed by urologist and irrigated. Urologist was unable to irrigate nephrostomy tube . Patient may require replacement by interventional radiology. CT of the abdomen demonstrated right percutaneous nephrostomy catheter in good position. No hydronephrosis. Suprapubic percutaneous cystostomy in good position. Nondistended bladder. No evidence of renal or intra-abdominal abscess. ID specialist followed. Urine culture revealed Proteus mirabilis ESBL, Klebsiella pneumonia, Providencia stuartii. Blood cultures were negative. Repeated blood culture were negative as well . Repeated urine culture revealed Providencia stuartii, Klebsiella pneumonia and Enterococcus faecalis. Antibiotic regimen initially was provided as per ID specialist recommendation. After two days of antibiotic , ID specialist recommended to keep patient off antibiotics. Per ID specialist urine culture was colonized . Antibiotic stopped. Patient remained afebrile, no leukocytosis. Strict aspiration precautions maintained. Tube feeding formula provided as per intensive care unit registered nurse recommendation. Pulmonary status was closely monitored and remained stable. Pulse oximetry was stable on room air. No signs of respiratory distress. Chest x-ray revealed no evidence of acute cardiopulmonary pathology. Renal parameters and electrolytes were closely monitored and remained stable. DVT prophylaxis provided Beta blockage continued. Pain management was addressed. Supportive care provided. Patient clinically stabilized and was ready for transfer [facility] to [facility] for continuation of care FINAL DIAGNOSES: Suprapubic catheter dysfunction, s/p change Nephrostomy status Recurrent UTI and recent septic shock History of DVT History of CVA Chronic kidney disease Hypertensive heart disease Chronic encephalopathy Dysphagia , feeding by G-tube COPD DISCHARGE MEDICATIONS: List of medication was sent to accepting facility DISCHARGE INSTRUCTIONS: Patient was discharged to the [facility] facility. Follow up with medical doctor at the facility. I have been assigned to dictate discharge summary for this account. I was not involved in the patient's management. Ann Marie Lees NP Jan 06, 2019 11:07
== END 2019-01-05 18:10 | DRG 466 ==
LOC: EDBD 09:23 → EMR 09:40 → 2E 10:08 → EDBEDREQ 11:40 → 2E 01-03 05:16
PROC: 0T2BX0Z Change Drainage Device in Bladder, External Approach (ICD-10-PCS; principal; 2019-01-03)
DX: N99.522 Malfunction of incontinent external stoma of urinary tract (principal); T83.9XXA Unspecified complication of genitourinary prosthetic device, implant and graft, initial encounter; N39.0 Urinary tract infection, site not specified; G93.40 Encephalopathy, unspecified; N12 Tubulo-interstitial nephritis, not specified as acute or chronic; G91.1 Obstructive hydrocephalus; N17.0 Acute kidney failure with tubular necrosis; Y83.3 Surgical operation with formation of external stoma as the cause of abnormal reaction of the patient, or of later complication, without mention of misadventure at the time of the procedure; N13.9 Obstructive and reflux uropathy, unspecified; Z88.1 Allergy status to other antibiotic agents; J44.9 Chronic obstructive pulmonary disease, unspecified; E11.9 Type 2 diabetes mellitus without complications; E46 Unspecified protein-calorie malnutrition; R13.10 Dysphagia, unspecified; Z43.1 Encounter for attention to gastrostomy; Z86.718 Personal history of other venous thrombosis and embolism; I13.10 Hypertensive heart and chronic kidney disease without heart failure, with stage 1 through stage 4 chronic kidney disease, or unspecified chronic kidney disease; N18.9 Chronic kidney disease, unspecified; I69.320 Aphasia following cerebral infarction; B96.4 Proteus (mirabilis) (morganii) as the cause of diseases classified elsewhere; B96.1 Klebsiella pneumoniae [K. pneumoniae] as the cause of diseases classified elsewhere; B96.89 Other specified bacterial agents as the cause of diseases classified elsewhere
CPT/HCPCS: 36415; 71045; 74176; 80048; 80053; 81003; 82550; 82553; 83605; 83735; 83880; 84100; 84484; 85025; 85610; 85730; 87040; 87081; 87086; 87181; 93005; 96365; 96366; 96368; 99285

== ENCOUNTER 2019-05-17 14:48 | Inpatient (IN) | payer MEDICAID ==
[~2019-05-17] VITALS: Ht 177.8 cm; Wt 102.5 kg
[~2019-05-17 14:48] MED LIST changes: +ASCORBIC ACID500 MG GT; +CEFDINIR300 MG PO; +HEPARIN 6,6000 UNIT/ IV; +NOVOLOG100 UNITS1; +ZINC50 M2 GT
[2019-05-17 15:07] VITALS: BP 115/80
--- NOTE | 2019-05-17 15:07 | NUR ---
ED Nurse Note: PTpt brought in by RA Peoples from [facility] for fever x 2 days. Temp 102.9 rectal at triage. PT noted with suprapubic cath and G tube. PT is non verbal at this time.
[2019-05-17] MEDS ORDERED: Cefepime HCl 2 GM in NS 110 ML IV ONE (15:15)
[2019-05-17] MEDS ORDERED: Sodium Chloride 3,400 ML IVLG ONE (15:15)
--- NOTE | 2019-05-17 15:20 | NUR ---
ED Nurse Note: Urine and blood sample sent down to lab
[2019-05-17 15:26] LABS: APPEARANCE,URINE CLOUDY; BILIRUBIN, URINE NEGATIVE (NEGATIVE); COLOR,URINE PALE YELLOW; GLUCOSE, URINE (UA) NEGATIVE (NEGATIVE); KETONES,URINE NEGATIVE (NEGATIVE); LEUKOCYTE ESTERASE ,URINE 3+ (NEGATIVE); NITRITE,URINE NEGATIVE (NEGATIVE); PH,URINE 9 (4.5-8.0); PROTEIN,URINE 3+ (NEGATIVE); UROBILINOGEN,URINE NORMAL MG/DL (0.0-1.0)
--- NOTE | 2019-05-17 15:28 | NUR ---
ED Nurse Note: CXR at bedside.
[2019-05-17 15:32] LABS: HEMATOCRIT 41.3 % (42.0-52.0); MEAN CORPUSCULAR VOLUME 84 FL (80-99); PLATELET COUNT 205 K/UL (150-450); RED BLOOD COUNT 4.93 M/UL (4.70-6.10); RED CELL DISTRIBUTION WIDTH 14.8 % (11.6-14.8); WHITE BLOOD COUNT 16.9 K/UL (4.8-10.8)
[2019-05-17 15:38] LABS: ANION GAP 11 mmol/L (5-15); BLOOD UREA NITROGEN 64 mg/dL (7-18); CALCIUM 9.1 MG/DL (8.5-10.1); CARBON DIOXIDE 27 MMOL/L (21-32); CHLORIDE 107 MMOL/L (98-107); POTASSIUM 4.4 MMOL/L (3.5-5.1); SODIUM 145 MMOL/L (136-145)
--- NOTE | 2019-05-17 15:50 | Emergency Room Report ---
History of Present Illness General Chief Complaint: Fever Source: Patient Present Illness HPI Patient is a 59-year-old male brought in by EMS for increased fever. Patient had been chronically debilitated was sent in from skilled nursing. Patient was noted to have temperature up to 102 at the facility. Prior history of urinary tract infection and previous suprapubic catheter placement. Patient is chronically debilitated and previous tracheostomy. History is markedly limited by patient's mental status. Allergies: Coded Allergies: VANCOMYCIN (Verified Allergy, Mild, Redness , 10/29/18) CIPROFLOXACIN (Verified Allergy, Unknown, 08/23/15) Patient History Reviewed Nursing Documentation: PMH: Agreed; PSxH: Agreed Nursing Documentation-PMH Past Medical History: No History, Except For Hx Cardiac Problems: Yes - DVT Hx Hypertension: Yes - Hypernatremia Hx COPD: Yes Hx Diabetes: Yes - type 2 Hx Cancer: No Hx Gastrointestinal Problems: Yes - Dysphagia, G-tube, GERD Hx Neurological Problems: Yes - Encephalopathy, hydrocephalus Hx Cerebrovascular Accident: Yes Hx Transient Ischemic Attacks: Yes Hx Seizures: Yes - CRF Hx Paralysis: Yes - paraplegic Hx Speech Problem: Yes Hx Aphasia: Yes Review of Systems All Other Systems: negative except mentioned in HPI Physical Exam Vital Signs Date Time Temp Pulse Resp B/P (MAP) Pulse Ox O2 Delivery O2 Flow Rate FiO2 05/17/19 14:58 102.9 130 20 124/84 (97) 96 Room Air 05/17/19 15:07 3.0 Sp02 EP Interpretation: reviewed, normal General Appearance: normal inspection, alert, obese, Chronically Ill Head: atraumatic ENT: hearing grossly normal, other - Old tracheostomy scar Neck: normal inspection, full range of motion, supple, no bony tend Respiratory: normal inspection, no respiratory distress, no retraction, no wheezing Cardiovascular #1: regular rate, rhythm, no edema Gastrointestinal: normal bowel sounds, soft, no guarding, no hernia Genitourinary: no CVA tenderness Musculoskeletal: normal inspection, back normal, normal range of motion Neurologic: alert, motor weakness, responsive Psychiatric: normal inspection, judgement/insight normal, mood/affect normal Skin: no rash Procedures Critical Care Time Critical Care Time Patient had a critical medical condition which untreated could potentially result in life or limb threatening injury. Total critical care time excluding procedures approximately 45 minutes. Medical Decision Making Diagnostic Impression: Primary Impression: UTI (urinary tract infection) Additional Impressions: Suprapubic catheter dysfunction Renal stones ER Course Presented for fever. Differential diagnosis include was not limited to sepsis, urinary tract infection, pneumonia, myocardial infarction among others. Because of complexity of patient's case laboratory tests and imaging studies were ordered. Patient is noted to have prior history of recurrent urinary tract infections and had previous stone forming organisms on prior cultures. He was given IV antibiotics. Was noted to be allergic to Cipro and vancomycin. CT imaging showed some evidence of kidney stone see radiology report for full details.Patient given IV fluids as well as IV antibiotics. Dr. Jaylen Bear was contacted for inpatient management. Labs Test 05/17/19 15:00 05/17/19 15:12 White Blood Count 16.9 K/UL (4.8-10.8) Red Blood Count 4.93 M/UL (4.70-6.10) Hemoglobin 14.0 G/DL (14.2-18.0) Hematocrit 41.3 % (42.0-52.0) Mean Corpuscular Volume 84 FL (80-99) Mean Corpuscular Hemoglobin 28.5 PG (27.0-31.0) Mean Corpuscular Hemoglobin Concent 34.0 G/DL (32.0-36.0) Red Cell Distribution Width 14.8 % (11.6-14.8) Platelet Count 205 K/UL (150-450) Mean Platelet Volume 8.6 FL (6.5-10.1) Neutrophils (%) (Auto) % (45.0-75.0) Lymphocytes (%) (Auto) % (20.0-45.0) Monocytes (%) (Auto) % (1.0-10.0) Eosinophils (%) (Auto) % (0.0-3.0) Basophils (%) (Auto) % (0.0-2.0) Differential Total Cells Counted 100 Neutrophils % (Manual) 94 % (45-75) Lymphocytes % (Manual) 1 % (20-45) Monocytes % (Manual) 0 % (1-10) Eosinophils % (Manual) 0 % (0-3) Basophils % (Manual) 0 % (0-2) Band Neutrophils 5 % (0-8) Platelet Estimate Adequate Platelet Morphology Normal Anisocytosis 1+ Urine Color Pale yellow Urine Appearance Cloudy Urine pH 9 (4.5-8.0) Urine Specific Rescue 1.015 (1.005-1.035) Urine Protein 3+ (NEGATIVE) Urine Glucose (UA) Negative (NEGATIVE) Urine Ketones Negative (NEGATIVE) Urine Blood 5+ (NEGATIVE) Urine Nitrite Negative (NEGATIVE) Urine Bilirubin Negative (NEGATIVE) Urine Urobilinogen Normal MG/DL (0.0-1.0) Urine Leukocyte Esterase 3+ (NEGATIVE) Urine RBC 20-30 /HPF (0 - 0) Urine WBC 40-60 /HPF (0 - 0) Urine Squamous Epithelial Cells Occasional /LPF Urine Bacteria Moderate /HPF (NONE) Sodium Level 145 MMOL/L (136-145) Potassium Level 4.4 MMOL/L (3.5-5.1) Chloride Level 107 MMOL/L (98-107) Carbon Dioxide Level 27 MMOL/L (21-32) Anion Gap 11 mmol/L (5-15) Blood Urea Nitrogen 64 mg/dL (7-18) Creatinine 2.0 MG/DL (0.55-1.30) Estimat Glomerular Filtration Rate 34.1 mL/min (>60) Glucose Level 165 MG/DL (74-106) Lactic Acid Level 1.30 mmol/L (0.4-2.0) Calcium Level 9.1 MG/DL (8.5-10.1) Total Bilirubin 0.5 MG/DL (0.2-1.0) Aspartate Amino Transf (AST/SGOT) 16 U/L (15-37) Alanine Aminotransferase (ALT/SGPT) 17 U/L (12-78) Alkaline Phosphatase 97 U/L (46-116) Total Creatine Kinase 31 U/L (26-308) Creatine Kinase MB < 0.5 NG/ML (0.0-3.6) Creatine Kinase MB Relative Index 1.6 Troponin I 0.000 ng/mL (0.000-0.056) Total Protein 9.4 G/DL (6.4-8.2) Albumin 3.1 G/DL (3.4-5.0) Globulin 6.3 g/dL Albumin/Globulin Ratio 0.5 (1.0-2.7) Arterial Blood pH 7.440 (7.350-7.450) Arterial Blood Partial Pressure CO2 35.2 mmHg (35.0-45.0) Arterial Blood Partial Pressure O2 108.1 mmHg (75.0-100.0) Arterial Blood HCO3 23.4 mmol/L (22.0-26.0) Arterial Blood Oxygen Saturation 98.0 % (95-100) Arterial Blood Base Excess -0.3 (-2-2) Aiden Test Positive EKG Diagnostic Results Rate: tachycardiac Last Vital Signs Date Time Temp Pulse Resp B/P (MAP) Pulse Ox O2 Delivery O2 Flow Rate FiO2 05/17/19 15:07 138 20 Room Air 05/17/19 15:07 102.9 115/80 96 3.0 Status: unchanged Disposition: ADMITTED INPATIENT Condition: Critical Referrals: Jaylen Bear DO (PCP) Froy aGrcia MD May 17, 2019 15:50
[2019-05-17 15:51] LABS: ALANINE AMINOTRANSFERASE 17 U/L (12-78); ALBUMIN 3.1 G/DL (3.4-5.0); ALBUMIN/GLOBULIN RATIO 0.5 (1.0-2.7); ALKALINE PHOSPHATASE 97 U/L (46-116); ASPARTATE AMINO TRANSFERASE 16 U/L (15-37); BILIRUBIN,TOTAL 0.5 MG/DL (0.2-1.0); CKMB < 0.5 NG/ML (0.0-3.6); CREATINE KINASE 31 U/L (26-308)
[2019-05-17] MEDS ORDERED: Acetaminophen 650mg/20.3ml GT ONE (16:00)
--- NOTE | 2019-05-17 16:00 | NUR ---
ED Nurse Note: went to CT
--- NOTE | 2019-05-17 16:18 | NUR ---
ED Nurse Note: Back from CT
--- NOTE | 2019-05-17 16:19 | Diagnostic Imaging Report ---
EXAM: XR Chest, 1 View CLINICAL HISTORY: SOB TECHNIQUE: Frontal view of the chest. COMPARISON: No relevant prior studies available. FINDINGS: Lungs: Reduced lung volumes with accentuation of bronchovascular markings. Pleural space: Unremarkable. No pneumothorax. Heart: Cardiomegaly. Mediastinum: Unremarkable. Bones/joints: No acute fracture. IMPRESSION: Reduced lung volumes with accentuation of bronchovascular markings.
[2019-05-17] MEDS ORDERED: Miralax 17gm pkt ORAL PRN (17:30)
[2019-05-17] MEDS ORDERED: Albuterol/Ipratropium 3ml neb HHN PRN (17:30)
[2019-05-17 17:40] VITALS: BP 99/72
--- NOTE | 2019-05-17 17:58 | Diagnostic Imaging Report ---
EXAM: CT Abdomen and Pelvis Without Intravenous Contrast CLINICAL HISTORY: PAIN TECHNIQUE: Axial computed tomography images of the abdomen and pelvis without intravenous contrast. CTDI is 27.1 mGy and DLP is 1651.4 mGy-cm. One or more of the following dose reduction techniques were used: automated exposure control, adjustment of the mA and/or kV according to patient size, use of iterative reconstruction technique. COMPARISON: No relevant prior studies available. FINDINGS: Lung bases: Unremarkable. ABDOMEN: Liver: Hepatic cysts and other low-attenuation foci. Gallbladder and bile ducts: Cholelithiasis. Pancreas: Unremarkable. Spleen: Unremarkable. Adrenals: Unremarkable. Kidneys and ureters: Bilateral nephrolithiasis. Stones in the bilateral renal pelvises and proximal ureters. 5-6 mm stone in the left mid ureter. Mild-moderate obstructive changes. Stomach and bowel: No rené mural thickening. Some gaseous distention of the colon. PELVIS: Appendix: No findings to suggest acute appendicitis. Bladder: Bladder calculi. Suprapubic catheter in the bladder. Reproductive: Unremarkable. ABDOMEN and PELVIS: Intraperitoneal space: Unremarkable. Bones/joints: Ankylosis of the SI joints. Osteopenia/small osseous lucencies. Old rib fractures. Soft tissues: Unremarkable. Vasculature: Unremarkable. No abdominal aortic aneurysm. Lymph nodes: No enlarged lymph nodes. Tubes, lines and devices: Percutaneous G-tube. IMPRESSION: 1. Cholelithiasis. 2. Bilateral nephrolithiasis. Stones in the bilateral renal pelvises and proximal ureters. 5-6 mm stone in the left mid ureter. Mild- moderate obstructive changes.
--- NOTE | 2019-05-17 19:00 | NUR ---
ED Nurse Note: Report given to Prasanth Merino RN. Endorsed plan of care
--- NOTE | 2019-05-17 19:15 | NUR ---
ED Nurse Note: received report from dipak levin
[2019-05-17 19:21] VITALS: BP 98/71
--- NOTE | 2019-05-17 20:35 | NUR ---
TRANSFER TO FLOOR: Patient transferred to [facility] via gurney accompanied by 2 rn in stable condition as ordered, per admitting md. Report given to rn for [facility]. Belongings sent with patient
--- NOTE | 2019-05-17 20:45 | NUR ---
NURSE NOTES: Pt transferred to unit via [facility]. Belonging checked with the RN. Report received from CANDI Bailey. VS 100/62, HR 93, R 20, SaO2 90%, T 98.5 noted. A/O x1, aphasic, but follows simple command. SR on compliance monitor. GT intact, patent, and flushing, no residual noted. Suprapubic cath noted on L lower quadrant. Sacral partial thickness noted and picture taken. IV on L AC 20G, SL. R FA 20G, SL. Bed in the lowest position. Side rails up x3 and padded. Will continue to monitor.
[2019-05-17 21:00] VITALS: BP 100/62
[2019-05-17] MEDS: Carvedilol 6.25mg Tab GT SCH (21:00)
--- NOTE | 2019-05-17 21:00 | NUR ---
NURSE NOTES: BS of 118 noted. Bed bath given. Large soft brown BM noted. SZ precaution done. Noted 's admitting orders and will be carried out. Will continue to monitor.
[2019-05-17] MEDS: Heparin 5000 units/ml inj SUBQ SCH (21:41)
[2019-05-18] VITALS: BP 110/78
--- NOTE | 2019-05-18 | NUR ---
NURSE NOTES: pt sleeping in the bed. No acute distress noted at this time. VS WNL. No fever, temperature of 98.0 noted. Reposition done q 2 hr. Will continue to monitor. Addendum: 05/18/19 at 0624 by Екатерина Iraheta RN suprapubic catheter leaking noted.
[2019-05-18] MEDS: Carvedilol 6.25mg Tab GT SCH ×3 (03:47→20:21)
[2019-05-18 04:00] VITALS: BP 138/62
--- NOTE | 2019-05-18 04:00 | NUR ---
NURSE NOTES: ST with HR of 135 noted. Pt has fever, 100.5. BP of 157/87 noted. PRN med given. Noted pt restless and shaking upper extremities. Will continue to monitor.
--- NOTE | 2019-05-18 05:07 | NUR ---
NURSE NOTES: Cooling measures done. Bed bath given. ST on ekg monitor tech with HR of 120's noted. T of 99.9 noted. No SOB. BP of 145/87 noted. Will continue to monitor.
[2019-05-18 05:47] LABS: HEMATOCRIT 37.8 % (42.0-52.0); HEMOGLOBIN 12.5 G/DL (14.2-18.0); MEAN CORPUSCULAR VOLUME 85 FL (80-99); PLATELET COUNT 184 K/UL (150-450); RED BLOOD COUNT 4.45 M/UL (4.70-6.10); RED CELL DISTRIBUTION WIDTH 14.8 % (11.6-14.8); WHITE BLOOD COUNT 15.8 K/UL (4.8-10.8)
[2019-05-18 06:14] LABS: ALBUMIN 2.7 G/DL (3.4-5.0); ANION GAP 9 mmol/L (5-15); BLOOD UREA NITROGEN 56 mg/dL (7-18); CALCIUM 8.9 MG/DL (8.5-10.1); CARBON DIOXIDE 27 MMOL/L (21-32); CHLORIDE 111 MMOL/L (98-107); CREATININE 1.9 MG/DL (0.55-1.30); PHOSPHORUS 3.1 MG/DL (2.5-4.9); SODIUM 147 MMOL/L (136-145)
--- NOTE | 2019-05-18 07:02 | NUR ---
HAND-OFF: Report given to Ean Rosales RN. No distress noted at this time.
--- NOTE | 2019-05-18 07:12 | NUR ---
NURSE NOTES: Received report form CANDI Iraheta. Patient is resting in bed, in stable condition. No s/sx SOB, breathing is even and unlabored, pt is on 2LNC with SpO2 98%. Patient is nonverbal, observed no presence of pain or discomfort at this time. Bed is in lowest position, brakes engaged. Call light is kept within easy reach. Will continue to monitor patient.
--- NOTE | 2019-05-18 07:15 | NUR ---
NURSE NOTES: Patient's suprapubic catheter noted leaking from site, chux noted soaked with urine, skin intact. Replaced fenestrated gauze and kept dry. Catheter noted patent and draining into drainage bag. Will continue to monitor patient.
[2019-05-18 08:00] VITALS: BP 100/64
[2019-05-18] MEDS: Heparin 5000 units/ml inj SUBQ SCH ×2 (08:09→20:23)
--- NOTE | 2019-05-18 08:45 | Consultation ---
Consult Note Consult Note asked to eval for renal failure Known to me from his previous admissions ER Patient is a 59-year-old male brought in by EMS for increased fever. Patient had been chronically debilitated [facility] Patient was noted to have temperature up to 102 at the facility. Prior history of urinary tract infection and previous suprapubic catheter placement. Patient is chronically debilitated and previous tracheostomy. History is markedly limited by patient's mental status. Allergies: VANCOMYCIN (Verified Allergy, Mild, Redness , 10/29/18) CIPROFLOXACIN (Verified Allergy, Unknown, 08/23/15) Hx Cardiac Problems: Yes - DVT Hx Hypertension: Yes - Hypernatremia Hx COPD: Yes Hx Diabetes: Yes - type 2 Hx Gastrointestinal Problems: Yes - Dysphagia, G-tube, GERD Hx Neurological Problems: Yes - Encephalopathy, hydrocephalus Hx Cerebrovascular Accident: Yes Hx Transient Ischemic Attacks: Yes Hx Seizures: Yes - CRF Hx Paralysis: Yes - paraplegic Hx Speech Problem: Yes Hx Aphasia: Yes Assessment/Plan acute renal failure UTI SupraPubic Cath Dysfunction Nephro for feeding Hydrate kidneyUTZ skin care per orders Pranav Grady MD May 18, 2019 08:45
[2019-05-18] MEDS ORDERED: Pantoprazole Inj IV SCH (09:00)
[2019-05-18] MEDS: Potassium Chloride 10 MEQ in D5 1/2NS 1,000 ML IV SCH ×2 (09:30→17:04)
--- NOTE | 2019-05-18 09:50 | NUR ---
NURSE NOTES: Called Dr. Cabrera's messenger exchange, spoke with Bryson and left message. Following up regarding antibiotic therapy, patient was admitted for sepsis and currently patient is noted with no antibiotic therapy at this time. Patient is afebrile. Will continue to monitor patient.
--- NOTE | 2019-05-18 10:00 | NUR ---
NURSE NOTES: Dr. Guzman called back, made aware of patient's allergies to ciprofloxacin and vancomycin. Dr. Cabrera acknowledged and ordered Zosyn IV per pharmacy to dose and Zyvox 600 mg IV Q12HR. Called and inquired pharmacy regarding Zosyn IV per pharmacy to dose order, spoke with Whit, pharmacist, per pharmacist does not dose Zosyn. Pharmacist assessed patient's renal function lab and placed patient on Zosyn 3.375 gm IV Q8HR at this time. Will continue to monitor patient.
--- NOTE | 2019-05-18 10:00 | NUR ---
NURSE NOTES: Spoke with Dr. Eldridge via telephone, regarding patient's IVF. Acknowledged. On same phone call informed Dr. Grady that patient's suprapubic catheter is leaking from site. Dr. Grady acknowledged, gave no new orders at this time. Will continue to monitor patient.
--- NOTE | 2019-05-18 10:25 | NUR ---
NURSE NOTES: Called and left message with Brenda regarding patient's positive blood culture 4 bottles positive for gram negative rods, also per pharmacy does not dose Zosyn, need further instructions. Will continue to monitor patient.
[2019-05-18 12:00] VITALS: BP 105/78
--- NOTE | 2019-05-18 13:15 | History and Physical Report ---
DATE OF ADMISSION: 05/17/2019 DATE AND TIME SEEN: 05/18/2019 at 8 a.m. CONSULTANTS: 1. Rigoberto Bryant M.D. 2. Bari Lebron M.D. 3. Peterson Cabrera M.D. 4. Pranav Grady M.D. CHIEF COMPLAINT: Fever, UTI, sepsis, shortness of breath, tachycardia. BRIEF HISTORY: This is a 59-year-old male from [facility], presented with above-mentioned diagnoses, admitted to step-down unit. Currently, calm, sleeping in bed, not talking much. REVIEW OF SYSTEMS: Unavailable. PAST MEDICAL HISTORY: Include obstructive hydrocephalus, COPD, diabetes, CVA, encephalopathy, DVT, decubitus ulcer, and anemia. PAST SURGICAL HISTORY: G-tube and suprapubic catheter. ALLERGIES: Cipro and vancomycin. MEDICATIONS: Include pantoprazole, potassium, carvedilol, heparin, Zofran, albuterol, Tylenol, cefepime, metronidazole. SOCIAL HISTORY: No smoking. No alcohol. No intravenous drug abuse. FAMILY HISTORY: Noncontributory. PHYSICAL EXAMINATION: GENERAL: Lethargic in bed, not answering questions, sleepy. VITAL SIGNS: Temperature is 97 degrees, pulse 98, respirations 20, blood pressure 100/64. Initial T-max is 100.5. CARDIOVASCULAR: No murmur. LUNGS: Poor air exchange. ABDOMEN: Bowel sounds distant. EXTREMITIES: No cyanosis, clubbing, or edema. NEUROLOGIC: The patient is currently sleepy, not following directions. LABORATORY DATA: Labs at this time show white count 15.8, initially 16.9, hemoglobin and hematocrit 12/37, otherwise CBC is normal. BMP is sodium 147, chloride 111, BUN and creatinine 56/1.9, glucose 108. Albumin 2.7. Urinalysis show 5+ blood, 3+ leukocyte esterase. ASSESSMENT: 1. Fever. 2. UTI. 3. Sepsis. 4. Shortness of breath. 5. Suprapubic catheter. 6. Tachycardia. 7. Renal insufficiency. 8. Leukocytosis. 9. . 10. Obstructive hydrocephalus. 11. COPD. 12. Malnutrition. 13. Diabetes. 14. CVA. 15. Encephalopathy. 16. History of DVT. 17. Decubitus ulcer. 18. Anemia. PLAN: 1. O2 and Pulmonary treatment. 2. Antibiotic per Infectious Disease. 3. PT, OT, dietary follow up. 4. Blood pressure, blood sugar control. 5. CBC and BMP in the morning. Jaylen Bear D.O. DR: MUNA JOB#: [id number] CC:
[2019-05-18] MEDS: Piperacillin/Tazobactam 3.375 GM in NS 110 ML IVPB SCH ×2 (13:36→21:58)
--- NOTE | 2019-05-18 14:02 | NUR ---
NURSE NOTES: Patient noted vent settings order per Dr. Bryant, patient does not have vent, no trach. Patient is on room air SpO2 100%. Contacted Dr. Bryant and informed of order. Dr. Bryant acknowledged and ordered to discontinued order. Order discontinued. Will continue to monitor patient.
--- NOTE | 2019-05-18 15:00 | NUR ---
NURSE NOTES: Contacted and informed Dr. Cabrera that per microbiology, patient has blood culture positive for gram negative rods x 4 bottles. Patient is currently on Zosyn 3.375 gm IV Q8HR and Zyvox 600 mg IV Q12HR. BP 111/55, HR 99, Temp 98.2F. Dr. Cabrera acknowledged and gave no new orders at this time. Also informed Dr. Cabrera that per our pharmacy, does not dose Zosyn IV, patient placed on Zosyn 3.375 gm IV Q8HR per [facility] pharmacy at this time. Dr. Cabrera acknowledged, gave no new orders at this time. Will continue to monitor patient.
--- NOTE | 2019-05-18 15:10 | Consultation ---
Consult Note Assessment/Plan Cardiology for Dr. Lebron Full note dictated #[id number] Andreina Castro MD May 18, 2019 15:10
--- NOTE | 2019-05-18 15:54 | NUR ---
NURSE NOTES: Delivered sputum sample for culture to lab. Noted.
[2019-05-18 16:00] VITALS: BP 122/88
[2019-05-18] MEDS: Docusate 100mg/10ml Liq GT SCH (17:24)
--- NOTE | 2019-05-18 19:26 | NUR ---
HAND-OFF: Report given to CANDI Harringtno.
--- NOTE | 2019-05-18 19:27 | NUR ---
NURSE NOTES: received pt from Ismael CHRISTOPHER., pt is awake and AOx 1 confused. pt is on SR to ST. pt is in RA O2sat is at 98%. Gtube site is intact, patnet, clean Nepro is running at 30cc/hr/. pt states no pain at this moment. suprapubic is noted, dressing is clean, intact and patent. Left AC 20G and Right FA 20G intact, clean, and patent. side rails are padded. no s/s of sizure at this moent. call light within reach. bed at the lowest position, alarmed, and locked. will continue to monitor pt with plan of care.
[2019-05-18 19:53] VITALS: BP 138/91
--- NOTE | 2019-05-18 20:15 | Consultation ---
DATE OF CONSULTATION: 05/18/2019 CARDIOLOGY CONSULTATION CONSULTING PHYSICIAN: Andreina Castro M.D. REQUESTING PHYSICIAN: Jaylen Bear D.O. REASON FOR CONSULTATION: Tachycardia. HISTORY OF PRESENT ILLNESS: History is obtained primarily from the chart as the patient is unable to give much history due to cognitive dysfunction. He is a 59-year-old man with a history of hypertension, COPD, previous CVA, quadriplegia, neurogenic bladder, and suprapubic catheter placement, who was transferred from the halfway with a fever up to 102. In the emergency room, his temperature was 102.9, blood pressure 124/84, and pulse 130 beats per minute. Heart rate increased up to as high as 150s. His white blood count was 17,000. Urinalysis was positive for white blood cells 40-60 per HPF, bacteria, and leukocyte esterase. He was diagnosed with urosepsis and has been admitted. Cardiology evaluation was requested for assistance with management of his tachycardia. MEDICATIONS: Currently Protonix 40 mg IV q.12 h., Colace 100 mg p.o. twice daily, Zosyn 3.375 g IV every 8 hours, linezolid q.12 h., potassium 10 mEq intravenous infusion supplement, Coreg 6.25 mg q.12 h., albuterol and Atrovent nebulizer q.4 h. p.r.n., subcutaneous heparin q.12 h., Tylenol p.r.n., and Zofran p.r.n. ALLERGIES: Ciprofloxacin and vancomycin. PAST MEDICAL HISTORY: Per the chart, the patient has history of previous CVA, encephalopathy, paraplegia, aphasia, and history of previous hospitalizations for urinary tract infections. PAST SURGERIES: Include suprapubic tube placement, gastrostomy tube placement, and previous tracheostomy. SOCIAL HISTORY: The patient is a convalescent home resident. No information is available about previous tobacco, alcohol, or drug history. REVIEW OF SYSTEMS: Not obtainable from the patient or chart. PHYSICAL EXAMINATION: VITAL SIGNS: Blood pressure is 105/78, pulse 84 and regular, respirations 20, temperature 97.8, and oxygen saturation 100% on room air. GENERAL: Alert, chronically ill-appearing male, in no acute distress. HEENT: Normocephalic and atraumatic. Pupils are equal, round, and reactive to light. Sclerae anicteric. NECK: Supple. There is a healed tracheostomy scar. No jugular venous distention. Carotid pulses 2+ bilaterally. LUNGS: Clear to auscultation anteriorly. HEART: Regular S1, S2. No murmurs or S3. ABDOMEN: Soft, distended, nontender. G-tube and suprapubic tube in place. SKIN: No rashes or lesions. Pulses 2+ and symmetric. NEUROLOGIC: The patient is alert, responds minimally with one-word answers to some questions, moves all extremities but with flexion contractures and severe weakness, 1/5 movement of the lower extremities bilaterally, and 2-3/5 in the upper extremities bilaterally. LABORATORY AND DIAGNOSTIC DATA: Hemoglobin 12.5, white blood count 15,800, and platelets 184,000. Sodium 147, potassium 4.0, chloride 111, bicarb 27, BUN 56, creatinine 1.9, and glucose 108. Troponin zero. BNP 616,000. Chest x-ray shows reduced lung volumes and cardiomegaly. EKG on admission shows sinus tachycardia at a rate of 132 beats per minute, low-voltage QRS, poor R-wave progression in V1 to V3, and small Q-waves in III and aVF. Telemetry now shows sinus rhythm, rate of 80s and 90s. ASSESSMENT AND RECOMMENDATION: The patient is a 59-year-old man with multiple chronic medical issues as outlined above. He is a halfway resident. He is quadriplegic and nonambulatory. He has chronic gastrostomy tube and suprapubic tube placement. He was admitted with urinary tract infection, urosepsis, and in this setting is noted to be tachycardic, sinus tachycardia. He has been started empirically on intravenous antibiotics. I would favor aggressive intravenous fluid resuscitation, which should improve his heart rate. He remains prerenal with elevated BUN to creatinine ratio, also consistent with intravascular volume depletion. His troponin is zero and EKG does not show any acute ischemic changes. His proBNP is mildly elevated; however, he does not appear with any signs and symptoms of congestive heart failure. Dr. Lebron will continue to follow him for cardiac issues beginning 05/19/2019. Thank you for involving us in his care. Andreina Castro M.D. DR: Iraj JOB#: [id number] CC:
[2019-05-18] MEDS: Pantoprazole Inj IV SCH (20:21)
[2019-05-19] VITALS: BP 131/81
--- NOTE | 2019-05-19 | NUR ---
NURSE NOTES: oral care given, pt is keep moving and pulling inspector advanced composite, educated pt why inspector advanced composite needed at this moment. no SOB noted in RA, no pain per pt. call light within reach. will continue to monitor pt;.
[2019-05-19] MEDS: Potassium Chloride 10 MEQ in D5 1/2NS 1,000 ML IV SCH ×3 (02:32→17:07)
[2019-05-19 03:58] VITALS: BP 135/75
--- NOTE | 2019-05-19 04:06 | NUR ---
NURSE NOTES: oral care given, repositioned pt (Q2hrs), bath given, new gown applied, and pt states no pain at this moment. pt is croatian speaker. call light within reach. will continue to monitor pt with plan of care.
[2019-05-19 04:56] LABS: BASOPHILS % (AUTO) 1.2 % (0.0-2.0); EOSINOPHILS % (AUTO) 1.7 % (0.0-3.0); HEMATOCRIT 36.6 % (42.0-52.0); HEMOGLOBIN 12.2 G/DL (14.2-18.0); LYMPHOCYTES % (AUTO) 18.2 % (20.0-45.0); MEAN CORPUSCULAR VOLUME 85 FL (80-99); MONOCYTES % (AUTO) 13.5 % (1.0-10.0); NEUTROPHILS % (AUTO) 65.5 % (45.0-75.0); PLATELET COUNT 174 K/UL (150-450); RED CELL DISTRIBUTION WIDTH 14.7 % (11.6-14.8); WHITE BLOOD COUNT 12.2 K/UL (4.8-10.8)
[2019-05-19 05:34] LABS: ALANINE AMINOTRANSFERASE 12 U/L (12-78); ALBUMIN 2.4 G/DL (3.4-5.0); ALBUMIN/GLOBULIN RATIO 0.4 (1.0-2.7); ALKALINE PHOSPHATASE 67 U/L (46-116); ANION GAP 9 mmol/L (5-15); ASPARTATE AMINO TRANSFERASE 22 U/L (15-37); BILIRUBIN,TOTAL 0.3 MG/DL (0.2-1.0); BLOOD UREA NITROGEN 41 mg/dL (7-18); CALCIUM 8.5 MG/DL (8.5-10.1); CARBON DIOXIDE 26 MMOL/L (21-32); CHLORIDE 109 MMOL/L (98-107); CREATININE 1.6 MG/DL (0.55-1.30); FERRITIN 215 NG/ML (8-388); PHOSPHORUS 2.2 MG/DL (2.5-4.9); POTASSIUM 4.2 MMOL/L (3.5-5.1); SODIUM 144 MMOL/L (136-145)
[2019-05-19 05:57] LABS: % IRON SATURATION 10 % (15-50); IRON 21 ug/dL (50-175); TOTAL IRON BINDING CAPACITY 216 ug/dL (250-450)
--- NOTE | 2019-05-19 06:00 | NUR ---
NURSE NOTES:WOUND CARE NOTES:Pt
--- NOTE | 2019-05-19 06:00 | NUR ---
NURSE NOTES:WOUND CARE NOTES:Pt with morbid obesity and contractures whom presented on admission with non-blanching erythema with shearing sacrum and R buttocks. Bilat groin and scrotal area without evidence of skin breakdown. Both heels and malleoli are blanchable. No other areas of skin breakdown noted. Tx.plan: Apply Moisture Barrier Paste to bilat grin and scrotal areas with each incontinence care. Apply Moisture Barrier paste to Sacrum, R and L buttocks. Cover Sacrum with Optifoam drsg. Change every 3 days and prn. Apply Cavilon Skin Barrier to both heels. Cover each heel with Optifoam drsg. Change every 7 days and prn. Reposition at least every 2hours or as tolerated. Off-load heels with pillow.
[2019-05-19] MEDS: Piperacillin/Tazobactam 3.375 GM in NS 110 ML IVPB SCH (06:15)
--- NOTE | 2019-05-19 06:59 | NUR ---
NURSE NOTES: Wound nurse sue CHRISTOPHER., seen patient's wound.
[2019-05-19 08:00] VITALS: BP 119/79
--- NOTE | 2019-05-19 08:57 | Nephrology Progress Note ---
Assessment/Plan Problem List: (1) Renal failure (ARF), acute on chronic (2) UTI (urinary tract infection) (3) Suprapubic catheter Assessment acute renal failure UTI SupraPubic Cath Dysfunction leakage Plan Nephro for feeding Hydrate kidneyUTZ skin care per orders Subjective ROS Limited/Unobtainable: No Constitutional: Reports: malaise, weakness Objective Objective Last 24 Hour Vital Signs Date Time Temp Pulse Resp B/P (MAP) Pulse Ox O2 Delivery O2 Flow Rate FiO2 05/19/19 08:00 98.1 100 18 119/79 (92) 100 05/19/19 08:00 Room Air 05/19/19 03:59 Room Air 05/19/19 03:58 98.9 100 18 135/75 (95) 100 05/19/19 03:34 80 05/19/19 00:00 98.6 92 18 131/81 (98) 100 05/19/19 00:00 Room Air 05/18/19 20:21 103 138/91 05/18/19 20:00 Room Air 05/18/19 20:00 102 05/18/19 20:00 101 18 96 Room Air 21 05/18/19 19:53 97.2 103 20 138/91 (107) 100 05/18/19 16:00 Room Air 05/18/19 16:00 97.9 104 20 122/88 (99) 100 05/18/19 16:00 102 05/18/19 12:00 97.8 84 20 105/78 (87) 100 05/18/19 12:00 Room Air 05/18/19 12:00 90 Intake and Output 05/18/19 05/19/19 19:00 07:00 Intake Total 2045.0 ml 1257.5 ml Output Total 300 ml Balance 1745.0 ml 1257.5 ml Free Water 150 ml 100 ml IV Total 1535.0 ml 827.5 ml Tube Feeding 360 ml 330 ml Output Urine Total 300 ml Current Medications Medications (Trade) Dose Ordered Sig/Fab Route PRN Reason Start Time Stop Time Status Last Admin Dose Admin Acetaminophen (Tylenol) 650 mg Q4H PRN ORAL FEVER 05/17/19 17:30 06/16/19 17:29 05/18/19 03:25 Albuterol/ Ipratropium (Albuterol/ Ipratropium) 3 ml Q4H PRN HHN Shortness of Breath 05/17/19 17:30 05/22/19 17:29 Carvedilol (Coreg) 6.25 mg EVERY 12 HOURS GT 05/17/19 21:00 06/16/19 20:59 05/18/19 20:21 Dextrose (Dextrose 50%) 25 ml Q30M PRN IV Hypoglycemia 05/17/19 17:30 06/16/19 17:29 Dextrose (Dextrose 50%) 50 ml Q30M PRN IV Hypoglycemia 05/17/19 17:30 06/16/19 17:29 Docusate Sodium (Colace) 100 mg BID GT 05/18/19 18:00 06/17/19 17:59 05/18/19 17:24 Heparin Sodium (Porcine) (Heparin 5000 units/ml) 5,000 units EVERY 12 HOURS SUBQ 05/17/19 21:00 06/16/19 20:59 05/18/19 20:23 Linezolid 300 ml @ 300 mls/hr Q12HR IVPB 05/18/19 11:00 05/25/19 10:59 05/18/19 20:23 Ondansetron HCl (Zofran) 4 mg Q6H PRN IVP Nausea & Vomiting 05/17/19 17:30 06/16/19 17:29 Pantoprazole (Protonix) 40 mg Q12HR IV 05/18/19 21:00 06/17/19 08:59 05/18/19 20:21 Piperacillin Sod/ Tazobactam Sod 3.375 gm/Sodium Chloride 110 ml @ 27.5 mls/hr EVERY 8 HOURS IVPB 05/18/19 14:00 05/23/19 13:59 05/19/19 06:15 Polyethylene Glycol (Miralax) 17 gm DAILYPRN PRN ORAL Constipation 05/17/19 17:30 06/16/19 17:29 Potassium Chloride 10 meq/ Dextrose/Sodium Chloride 1,005 ml @ 125 mls/hr Q8H3M IV 05/18/19 10:00 06/17/19 09:59 05/19/19 02:32 Laboratory Tests 05/18/19 13:20: Urine Random Sodium 102 05/19/19 03:10: White Blood Count 12.2H, Red Blood Count 4.30L, Hemoglobin 12.2L, Hematocrit 36.6L, Mean Corpuscular Volume 85, Mean Corpuscular Hemoglobin 28.3, Mean Corpuscular Hemoglobin Concent 33.3, Red Cell Distribution Width 14.7, Platelet Count 174, Mean Platelet Volume 9.2, Neutrophils (%) (Auto) 65.5, Lymphocytes (% ) (Auto) 18.2L, Monocytes (%) (Auto) 13.5H, Eosinophils (%) (Auto) 1.7, Basophils (%) (Auto) 1.2, Sodium Level 144, Potassium Level 4.2, Chloride Level 109H, Carbon Dioxide Level 26, Anion Gap 9, Blood Urea Nitrogen 41H, Creatinine 1.6H, Estimat Glomerular Filtration Rate 44.2, Glucose Level 126H, Uric Acid 5.6 , Calcium Level 8.5, Phosphorus Level 2.2L, Magnesium Level 2.9H, Iron Level 21L , Total Iron Binding Capacity 216L, Percent Iron Saturation 10L, Unsaturated Iron Binding 195, Ferritin 215, Total Bilirubin 0.3, Aspartate Amino Transf (AST /SGOT) 22, Alanine Aminotransferase (ALT/SGPT) 12, Alkaline Phosphatase 67, C- Reactive Protein, Quantitative 36.6H, Pro-B-Type Natriuretic Peptide 1386H, Total Protein 8.0, Albumin 2.4L, Globulin 5.6, Albumin/Globulin Ratio 0.4L, Vitamin B12 Level 873, Folate 34.9, Thyroid Stimulating Hormone (TSH) 1.099 Height (Feet): 5 Height (Inches): 10.00 Weight (Pounds): 220 General Appearance: no apparent distress Cardiovascular: tachycardia Respiratory/Chest: decreased breath sounds Abdomen: distended Genitourinary/Rectal: other - supra pubic Pranav Grady MD May 19, 2019 08:57
--- NOTE | 2019-05-19 09:19 | General Progress Note ---
Assessment/Plan Problem List: (1) UTI (urinary tract infection) ICD Codes: N39.0 - Urinary tract infection, site not specified SNOMED: 18500876 (2) Sepsis ICD Codes: A41.9 - Sepsis, unspecified organism SNOMED: 00239259 (3) Suprapubic catheter dysfunction ICD Codes: T83.010A - Breakdown (mechanical) of cystostomy catheter, initial encounter SNOMED: 877860056 (4) Decubitus skin ulcer ICD Codes: L89.90 - Pressure ulcer of unspecified site, unspecified stage SNOMED: 891129733 (5) History of DVT (deep vein thrombosis) ICD Codes: Z86.718 - Personal history of other venous thrombosis and embolism SNOMED: 067510199 (6) Aphasia ICD Codes: R47.01 - Aphasia SNOMED: 65051763 (7) Diabetes mellitus ICD Codes: E11.9 - Type 2 diabetes mellitus without complications SNOMED: 31588119 (8) Obstructive hydrocephalus ICD Codes: G91.1 - Obstructive hydrocephalus SNOMED: 883045881 (9) Renal failure (ARF), acute on chronic ICD Codes: N17.9 - Acute kidney failure, unspecified; N18.9 - Chronic kidney disease, unspecified SNOMED: 568219375 (10) History of CVA (cerebrovascular accident) ICD Codes: Z86.73 - Personal history of transient ischemic attack (TIA), and cerebral infarction without residual deficits SNOMED: 041611229 (11) Encephalopathy chronic ICD Codes: G93.49 - Other encephalopathy SNOMED: 22928761 Status: unchanged Assessment/Plan: pt diet abx uro eval cbc bmp am Subjective Constitutional: Reports: weakness Allergies: Coded Allergies: VANCOMYCIN (Verified Allergy, Mild, Redness , 10/29/18) CIPROFLOXACIN (Verified Allergy, Unknown, 08/23/15) All Systems: reviewed and negative except above Subjective sleepy calm Objective Last 24 Hour Vital Signs Date Time Temp Pulse Resp B/P (MAP) Pulse Ox O2 Delivery O2 Flow Rate FiO2 05/19/19 08:00 98.1 100 18 119/79 (92) 100 05/19/19 08:00 Room Air 05/19/19 03:59 Room Air 05/19/19 03:58 98.9 100 18 135/75 (95) 100 05/19/19 03:34 80 05/19/19 00:00 98.6 92 18 131/81 (98) 100 05/19/19 00:00 Room Air 05/18/19 20:21 103 138/91 05/18/19 20:00 Room Air 05/18/19 20:00 102 05/18/19 20:00 101 18 96 Room Air 21 05/18/19 19:53 97.2 103 20 138/91 (107) 100 05/18/19 16:00 Room Air 05/18/19 16:00 97.9 104 20 122/88 (99) 100 05/18/19 16:00 102 05/18/19 12:00 97.8 84 20 105/78 (87) 100 05/18/19 12:00 Room Air 05/18/19 12:00 90 Intake and Output 05/18/19 05/19/19 19:00 07:00 Intake Total 2045.0 ml 1257.5 ml Output Total 300 ml Balance 1745.0 ml 1257.5 ml Free Water 150 ml 100 ml IV Total 1535.0 ml 827.5 ml Tube Feeding 360 ml 330 ml Output Urine Total 300 ml Laboratory Tests 05/18/19 13:20: Urine Random Sodium 102 05/19/19 03:10: White Blood Count 12.2H, Red Blood Count 4.30L, Hemoglobin 12.2L, Hematocrit 36.6L, Mean Corpuscular Volume 85, Mean Corpuscular Hemoglobin 28.3, Mean Corpuscular Hemoglobin Concent 33.3, Red Cell Distribution Width 14.7, Platelet Count 174, Mean Platelet Volume 9.2, Neutrophils (%) (Auto) 65.5, Lymphocytes (% ) (Auto) 18.2L, Monocytes (%) (Auto) 13.5H, Eosinophils (%) (Auto) 1.7, Basophils (%) (Auto) 1.2, Sodium Level 144, Potassium Level 4.2, Chloride Level 109H, Carbon Dioxide Level 26, Anion Gap 9, Blood Urea Nitrogen 41H, Creatinine 1.6H, Estimat Glomerular Filtration Rate 44.2, Glucose Level 126H, Uric Acid 5.6 , Calcium Level 8.5, Phosphorus Level 2.2L, Magnesium Level 2.9H, Iron Level 21L , Total Iron Binding Capacity 216L, Percent Iron Saturation 10L, Unsaturated Iron Binding 195, Ferritin 215, Total Bilirubin 0.3, Aspartate Amino Transf (AST /SGOT) 22, Alanine Aminotransferase (ALT/SGPT) 12, Alkaline Phosphatase 67, C- Reactive Protein, Quantitative 36.6H, Pro-B-Type Natriuretic Peptide 1386H, Total Protein 8.0, Albumin 2.4L, Globulin 5.6, Albumin/Globulin Ratio 0.4L, Vitamin B12 Level 873, Folate 34.9, Thyroid Stimulating Hormone (TSH) 1.099 Height (Feet): 5 Height (Inches): 10.00 Weight (Pounds): 220 General Appearance: lethargic EENT: normal ENT inspection Neck: normal alignment Cardiovascular: normal peripheral pulses, normal rate, regular rhythm Respiratory/Chest: chest wall non-tender, lungs clear, normal breath sounds Abdomen: normal bowel sounds, non tender, soft Extremities: normal inspection Edema: no edema noted Arm (L), no edema noted Arm (R), no edema noted Leg (L), no edema noted Leg (R), no edema noted Pedal (L), no edema noted Pedal (R), no edema noted Generalized Neurologic: motor weakness Skin: normal pigmentation, warm/dry Jaylen Bear DO May 19, 2019 09:19
[2019-05-19] MEDS: Docusate 100mg/10ml Liq GT SCH ×2 (09:29→17:06)
[2019-05-19] MEDS: Pantoprazole Inj IV SCH ×2 (09:30→20:00)
[2019-05-19] MEDS: Carvedilol 6.25mg Tab GT SCH ×2 (09:30→20:00)
[2019-05-19] MEDS: Heparin 5000 units/ml inj SUBQ SCH ×2 (09:33→20:04)
--- NOTE | 2019-05-19 10:35 | Pulmonology Progress Note ---
Assessment/Plan Problems: (1) Sepsis (2) COPD (chronic obstructive pulmonary disease) (3) Suprapubic catheter dysfunction (4) Renal failure (ARF), acute on chronic (5) Feeding by G-tube (6) Diabetes mellitus (7) History of CVA (cerebrovascular accident) Assessment/Plan respiratory treatment iv abx titrate fio2 to sat of 92% tolerating feeding by Gtube sliding scale sputum induction chest PT f/u wbc Subjective ROS Limited/Unobtainable: No Constitutional: Reports: no symptoms HEENT: Repors: no symptoms Allergies: Coded Allergies: VANCOMYCIN (Verified Allergy, Mild, Redness , 10/29/18) CIPROFLOXACIN (Verified Allergy, Unknown, 08/23/15) Objective Last 24 Hour Vital Signs Date Time Temp Pulse Resp B/P (MAP) Pulse Ox O2 Delivery O2 Flow Rate FiO2 05/19/19 09:30 100 119/79 05/19/19 08:00 98.1 100 18 119/79 (92) 100 05/19/19 08:00 Room Air 05/19/19 03:59 Room Air 05/19/19 03:58 98.9 100 18 135/75 (95) 100 05/19/19 03:34 80 05/19/19 00:00 98.6 92 18 131/81 (98) 100 05/19/19 00:00 Room Air 05/18/19 23:30 99 05/18/19 20:21 103 138/91 05/18/19 20:00 Room Air 05/18/19 20:00 102 05/18/19 20:00 101 18 96 Room Air 21 05/18/19 19:53 97.2 103 20 138/91 (107) 100 05/18/19 16:00 Room Air 05/18/19 16:00 97.9 104 20 122/88 (99) 100 05/18/19 16:00 102 05/18/19 12:00 97.8 84 20 105/78 (87) 100 05/18/19 12:00 Room Air 05/18/19 12:00 90 Intake and Output 05/18/19 05/19/19 19:00 07:00 Intake Total 2045.0 ml 1257.5 ml Output Total 300 ml Balance 1745.0 ml 1257.5 ml Free Water 150 ml 100 ml IV Total 1535.0 ml 827.5 ml Tube Feeding 360 ml 330 ml Output Urine Total 300 ml General Appearance: WD/WN HEENT: normocephalic, atraumatic Respiratory/Chest: chest wall non-tender, crackles/rales Cardiovascular: normal peripheral pulses, normal rate Abdomen: normal bowel sounds, soft, non tender Genitourinary: normal external genitalia Extremities: no cyanosis 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 Resulted 05/17/19 15:00 Urine,Clean Catch Urine Culture - Final Morganella Morg Spp Morganii Complete Laboratory Tests 05/18/19 13:20: Urine Random Sodium 102 05/19/19 03:10: White Blood Count 12.2H, Red Blood Count 4.30L, Hemoglobin 12.2L, Hematocrit 36.6L, Mean Corpuscular Volume 85, Mean Corpuscular Hemoglobin 28.3, Mean Corpuscular Hemoglobin Concent 33.3, Red Cell Distribution Width 14.7, Platelet Count 174, Mean Platelet Volume 9.2, Neutrophils (%) (Auto) 65.5, Lymphocytes (% ) (Auto) 18.2L, Monocytes (%) (Auto) 13.5H, Eosinophils (%) (Auto) 1.7, Basophils (%) (Auto) 1.2, Sodium Level 144, Potassium Level 4.2, Chloride Level 109H, Carbon Dioxide Level 26, Anion Gap 9, Blood Urea Nitrogen 41H, Creatinine 1.6H, Estimat Glomerular Filtration Rate 44.2, Glucose Level 126H, Uric Acid 5.6 , Calcium Level 8.5, Phosphorus Level 2.2L, Magnesium Level 2.9H, Iron Level 21L , Total Iron Binding Capacity 216L, Percent Iron Saturation 10L, Unsaturated Iron Binding 195, Ferritin 215, Total Bilirubin 0.3, Aspartate Amino Transf (AST /SGOT) 22, Alanine Aminotransferase (ALT/SGPT) 12, Alkaline Phosphatase 67, C- Reactive Protein, Quantitative 36.6H, Pro-B-Type Natriuretic Peptide 1386H, Total Protein 8.0, Albumin 2.4L, Globulin 5.6, Albumin/Globulin Ratio 0.4L, Vitamin B12 Level 873, Folate 34.9, Thyroid Stimulating Hormone (TSH) 1.099 Current Medications Medications (Trade) Dose Ordered Sig/Fab Route PRN Reason Start Time Stop Time Status Last Admin Dose Admin Acetaminophen (Tylenol) 650 mg Q4H PRN ORAL FEVER 05/17/19 17:30 06/16/19 17:29 05/18/19 03:25 Albuterol/ Ipratropium (Albuterol/ Ipratropium) 3 ml Q4H PRN HHN Shortness of Breath 05/17/19 17:30 05/22/19 17:29 Carvedilol (Coreg) 6.25 mg EVERY 12 HOURS GT 05/17/19 21:00 06/16/19 20:59 05/19/19 09:30 Dextrose (Dextrose 50%) 25 ml Q30M PRN IV Hypoglycemia 05/17/19 17:30 06/16/19 17:29 Dextrose (Dextrose 50%) 50 ml Q30M PRN IV Hypoglycemia 05/17/19 17:30 06/16/19 17:29 Docusate Sodium (Colace) 100 mg BID GT 05/18/19 18:00 06/17/19 17:59 05/19/19 09:29 Heparin Sodium (Porcine) (Heparin 5000 units/ml) 5,000 units EVERY 12 HOURS SUBQ 05/17/19 21:00 06/16/19 20:59 05/19/19 09:33 Linezolid 300 ml @ 300 mls/hr Q12HR IVPB 05/18/19 11:00 05/25/19 10:59 05/19/19 09:30 Ondansetron HCl (Zofran) 4 mg Q6H PRN IVP Nausea & Vomiting 05/17/19 17:30 06/16/19 17:29 Pantoprazole (Protonix) 40 mg Q12HR IV 05/18/19 21:00 06/17/19 08:59 05/19/19 09:30 Piperacillin Sod/ Tazobactam Sod 3.375 gm/Sodium Chloride 110 ml @ 27.5 mls/hr EVERY 8 HOURS IVPB 05/18/19 14:00 05/23/19 13:59 05/19/19 06:15 Polyethylene Glycol (Miralax) 17 gm DAILYPRN PRN ORAL Constipation 05/17/19 17:30 06/16/19 17:29 Potassium Chloride 10 meq/ Dextrose/Sodium Chloride 1,005 ml @ 125 mls/hr Q8H3M IV 05/18/19 10:00 06/17/19 09:59 05/19/19 09:29 Rigoberto Bryant MD May 19, 2019 10:35
--- NOTE | 2019-05-19 11:10 | NUR ---
NURSE NOTES: Received report from Perlita Goetz RN, pt. received in bed awake, mother at bedside, pt. is A/O x's 1- alert to name, no signs or symptoms of acute cardiac or respiratory distress noted, pt. appears to be sating well on room air - no distress noted, pt. has Nephro 1.8 running at 30cc/hr- no residual noted- via G tube, pt. has supra pubic catheter in place intact but appears to be leaking- per endorsement doctor is aware, bed in ow position and call light within easy each, bed alarm on, side rails up x's 3, side rails padded for seizure precautions- no seizure activity noted upon assessment, LT. AC 20G iv intact and patent, RFA 20G running D5 04/10 ND +10meq kcl at 125mls/ hr- IV intact and patent, safety precautions noted, will continue with plan of care. Addendum: 05/19/19 at 1146 by ELIE MORALES RN RN correction to message above- mother is not at bedside, but everything else is correct.
--- NOTE | 2019-05-19 11:10 | NUR ---
HAND-OFF: Report given to Jeffery CHRISTOPHER. pt is in stable condition.
--- NOTE | 2019-05-19 11:12 | NUR ---
RD ASSESSMENT & RECOMMENDATIONS SEE CARE ACTIVITY FOR COMPLETE ASSESSMENT DAILY ESTIMATED NEEDS: Needs based on obese, bedbound, wound, TF SEARCH COORDINATOR/ 77.5kg 22-25 kcals/kg 6400-1594 total kcals 1.25-1.5 g protein/kg 97-116 g total protein 25-30 mL/kg 7639-2472 total fluid mLs NUTRITION DIAGNOSIS: * Swallowing difficulty related to dysphagia s/p cva as evidenced by pt dependent on PEG for all nutrition and hydration needs. * Increased kcal/prot needs R/T wound healing as evidenced by admitted w/ sacral wound, pending eval CURRENT TF:Nepro @ 30ml/hr x 24 hrs ENTERAL NUTRITION RECOMMENDATIONS: Glucerna 1.5 @ 50ml/hr x 24 hrs to provide 1200ml, 1800kcal, 99g prot, 911ml free water * Rec TF change to SEARCH COORDINATOR TF of Glucerna 1.5 (Renal TF of Nepro is unnecessary) * Initiate TF @ 30ml/hr x 6 hrs, advance 10ml q 4-6 hrs as tolerated to goal * HOB over 30 degrees/ water flush per MD ADDITIONAL RECOMMENDATIONS: 1) Calibrated bedscale wt for accurate CBW 2) F/up wound eval: add Vit C 250mg QD + Stone 1pkt BID 3) Monitor lytes, replete as needed 4) Rec NISS - h/o DM 5) Check A1C for eval of glycemic control . .
--- NOTE | 2019-05-19 11:36 | Consultation ---
History of Present Illness General Date patient seen: May 19, 2019 Chief Complaint: Fever Present Illness HPI 59 y/o M with hx of HTN, COPD, DVT, Dm2, GERD, paraplegia, aphasia, dysphagia s/ p GT, chronic respiratory failure s/p trach dependent, recurrent UTIs, CVA/TIA, quadriplegia, neurogenic bladder s/p suprapubic catheter and nephrostomy tube, MRSA and proteus septic shock/bacteremia 10/2018 from obstructive kidney stone, [place] resident presented to ED with fever up to 102.9, tachycardia up to 150s, leukocytosis up to 17k Of note, patient has had multiple admission for sepsis 2ry to UTI and obstructive kidney stones and malfunctioning nephrostomy tubes Allergies: Coded Allergies: VANCOMYCIN (Verified Allergy, Mild, Redness , 10/29/18) CIPROFLOXACIN (Verified Allergy, Unknown, 08/23/15) Medication History Scheduled Amino Acids/Protein Hydrolys (Pro-Stat Liquid), 30 ML GT TWICE A DAY, (Reported) Ascorbic Acid* (Ascorbic Acid*), 500 MG GT DAILY, (Reported) Bisacodyl (Dulcolax), 10 MG RC PRN, (Reported) Carvedilol (Coreg), 6.25 MG GT EVERY 12 HOURS Carvedilol (Coreg), 6.25 MG ORAL EVERY 12 HOURS, (Reported) Cefdinir (Cefdinir), 300 MG PO BID, (Reported) Cefdinir (Cefdinir), 300 MG PO BID, (Reported) Cefepime Hcl/D5w (Cefepime-Dextrose 1 Gm/50 Ml), 1 GM IVPB EVERY 12 HOURS, ( Reported) Cran/Vitc/Mannose/Inulin/Brom (Uti-Stat Liquid), 3,875 MG GT BID, (Reported) Cranberry Fruit Concentrate (Cranberry), 900 MG GT BID, (Reported) Docusate Sodium* (Docusate Sodium*), 250 MG GT DAILY, (Reported) Lansoprazole* (Lansoprazole*), 30 MG GT BID, (Reported) Linezolid* (Zyvox*), 600 MG GT EVERY 12 HOURS Nystatin (Nystatin), 1 EACH MC TID, (Reported) Sennosides (Senna), 8.6 MG GT QHS, (Reported) Sennosides (Senokot), 17.2 MG PO QHS, (Reported) Trimethoprim/Sulfamethoxazole 160/800* (Bactrim Ds Tablet*), 1 TAB GT TWICE A DAY, (Reported) Trimethoprim/Sulfamethoxazole 160/800* (Bactrim Ds Tablet*), 1 TAB ORAL TWICE A DAY, (Reported) Scheduled PRN Acetaminophen (Tylenol), 650 MG GT Q4H PRN for Mild Pain (Pain Scale 1-3), ( Reported) Acetaminophen* (Tylenol Extra Strength*), 2 TAB GT Q4H PRN for Moderate Pain ( Pain Scale 4-6), (Reported) Magnesium Hydroxide* (Milk Of Magnesia*), 30 ML GT QHS PRN for Constipation, ( Reported) Na Phos,M-B/Na Phos,Di-Ba (Fleet Enema), 133 ML RC QOD PRN for Constipation, ( Reported) Miscellaneous Medications Heparin Sod,Porcine/0.9 % NaCl (Heparin 6,000 Unit/3 ml-Ns Syr), 5,000 UNIT IV, (Reported) Insulin Aspart (Novolog Flexpen), (Reported) Zinc Amino Acid Chelate (Zinc), 220 MG GT, (Reported) Patient History Healthcare decision maker N Resuscitation status Full Code Advanced Directive on File No Patient History Narrative Pmhx: as above Shx: The patient is a convalescent home resident. No information is available about previous tobacco, alcohol, or drug history. Fhx: non contributory Physical Exam Physical Exam Narrative GENERAL: Lethargic in bed, not answering questions, sleepy. CARDIOVASCULAR: No murmur. LUNGS: Poor air exchange. ABDOMEN: Bowel sounds distant. EXTREMITIES: No cyanosis, clubbing, or edema. NEUROLOGIC: The patient is currently sleepy, not following directions. Last 24 Hour Vital Signs Date Time Temp Pulse Resp B/P (MAP) Pulse Ox O2 Delivery O2 Flow Rate FiO2 05/19/19 09:30 100 119/79 05/19/19 08:00 98.1 100 18 119/79 (92) 100 05/19/19 08:00 Room Air 05/19/19 03:59 Room Air 05/19/19 03:58 98.9 100 18 135/75 (95) 100 05/19/19 03:34 80 05/19/19 00:00 98.6 92 18 131/81 (98) 100 05/19/19 00:00 Room Air 05/18/19 23:30 99 05/18/19 20:21 103 138/91 05/18/19 20:00 Room Air 05/18/19 20:00 102 05/18/19 20:00 101 18 96 Room Air 21 05/18/19 19:53 97.2 103 20 138/91 (107) 100 05/18/19 16:00 Room Air 05/18/19 16:00 97.9 104 20 122/88 (99) 100 05/18/19 16:00 102 05/18/19 12:00 97.8 84 20 105/78 (87) 100 05/18/19 12:00 Room Air 05/18/19 12:00 90 Intake and Output 05/18/19 05/19/19 19:00 07:00 Intake Total 2045.0 ml 1257.5 ml Output Total 300 ml Balance 1745.0 ml 1257.5 ml Free Water 150 ml 100 ml IV Total 1535.0 ml 827.5 ml Tube Feeding 360 ml 330 ml Output Urine Total 300 ml Laboratory Tests Test 05/18/19 13:20 05/19/19 03:10 Urine Random Sodium 102 mmol/L (20-110) White Blood Count 12.2 K/UL (4.8-10.8) H Red Blood Count 4.30 M/UL (4.70-6.10) L Hemoglobin 12.2 G/DL (14.2-18.0) L Hematocrit 36.6 % (42.0-52.0) L Mean Corpuscular Volume 85 FL (80-99) Mean Corpuscular Hemoglobin 28.3 PG (27.0-31.0) Mean Corpuscular Hemoglobin Concent 33.3 G/DL (32.0-36.0) Red Cell Distribution Width 14.7 % (11.6-14.8) Platelet Count 174 K/UL (150-450) Mean Platelet Volume 9.2 FL (6.5-10.1) Neutrophils (%) (Auto) 65.5 % (45.0-75.0) Lymphocytes (%) (Auto) 18.2 % (20.0-45.0) L Monocytes (%) (Auto) 13.5 % (1.0-10.0) H Eosinophils (%) (Auto) 1.7 % (0.0-3.0) Basophils (%) (Auto) 1.2 % (0.0-2.0) Sodium Level 144 MMOL/L (136-145) Potassium Level 4.2 MMOL/L (3.5-5.1) Chloride Level 109 MMOL/L (98-107) H Carbon Dioxide Level 26 MMOL/L (21-32) Anion Gap 9 mmol/L (5-15) Blood Urea Nitrogen 41 mg/dL (7-18) H Creatinine 1.6 MG/DL (0.55-1.30) H Estimat Glomerular Filtration Rate 44.2 mL/min (>60) Glucose Level 126 MG/DL (74-106) H Uric Acid 5.6 MG/DL (2.6-7.2) Calcium Level 8.5 MG/DL (8.5-10.1) Phosphorus Level 2.2 MG/DL (2.5-4.9) L Magnesium Level 2.9 MG/DL (1.8-2.4) H Iron Level 21 ug/dL (50-175) L Total Iron Binding Capacity 216 ug/dL (250-450) L Percent Iron Saturation 10 % (15-50) L Unsaturated Iron Binding 195 ug/dL (112-346) Ferritin 215 NG/ML (8-388) Total Bilirubin 0.3 MG/DL (0.2-1.0) Aspartate Amino Transf (AST/SGOT) 22 U/L (15-37) Alanine Aminotransferase (ALT/SGPT) 12 U/L (12-78) Alkaline Phosphatase 67 U/L (46-116) C-Reactive Protein, Quantitative 36.6 mg/dL (0.00-0.90) H Pro-B-Type Natriuretic Peptide 1386 pg/mL (0-125) H Total Protein 8.0 G/DL (6.4-8.2) Albumin 2.4 G/DL (3.4-5.0) L Globulin 5.6 g/dL Albumin/Globulin Ratio 0.4 (1.0-2.7) L Vitamin B12 Level 873 PG/ML (193-986) Folate 34.9 NG/ML (8.6-58.9) Thyroid Stimulating Hormone (TSH) 1.099 uiU/mL (0.358-3.740) Microbiology Date/Time Source Procedure Growth Status 05/18/19 15:40 Sputum Gram Stain Pending Resulted 05/18/19 15:40 Sputum Sputum Culture - Preliminary NORMAL UPPER RESPIRATORY JOÃO AT 24 ... Resulted Height (Feet): 5 Height (Inches): 10.00 Weight (Pounds): 220 Medications Current Medications Medications (Trade) Dose Ordered Sig/Fab Route PRN Reason Start Time Stop Time Status Last Admin Dose Admin Acetaminophen (Tylenol) 650 mg Q4H PRN ORAL FEVER 05/17/19 17:30 06/16/19 17:29 05/18/19 03:25 Albuterol/ Ipratropium (Albuterol/ Ipratropium) 3 ml Q4H PRN HHN Shortness of Breath 05/17/19 17:30 05/22/19 17:29 Carvedilol (Coreg) 6.25 mg EVERY 12 HOURS GT 05/17/19 21:00 06/16/19 20:59 05/19/19 09:30 Dextrose (Dextrose 50%) 25 ml Q30M PRN IV Hypoglycemia 05/17/19 17:30 06/16/19 17:29 Dextrose (Dextrose 50%) 50 ml Q30M PRN IV Hypoglycemia 05/17/19 17:30 06/16/19 17:29 Docusate Sodium (Colace) 100 mg BID GT 05/18/19 18:00 06/17/19 17:59 05/19/19 09:29 Heparin Sodium (Porcine) (Heparin 5000 units/ml) 5,000 units EVERY 12 HOURS SUBQ 05/17/19 21:00 06/16/19 20:59 05/19/19 09:33 Linezolid 300 ml @ 300 mls/hr Q12HR IVPB 05/18/19 11:00 05/25/19 10:59 05/19/19 09:30 Ondansetron HCl (Zofran) 4 mg Q6H PRN IVP Nausea & Vomiting 05/17/19 17:30 06/16/19 17:29 Pantoprazole (Protonix) 40 mg Q12HR IV 05/18/19 21:00 06/17/19 08:59 05/19/19 09:30 Piperacillin Sod/ Tazobactam Sod 3.375 gm/Sodium Chloride 110 ml @ 27.5 mls/hr EVERY 8 HOURS IVPB 05/18/19 14:00 05/23/19 13:59 05/19/19 06:15 Polyethylene Glycol (Miralax) 17 gm DAILYPRN PRN ORAL Constipation 05/17/19 17:30 06/16/19 17:29 Potassium Chloride 10 meq/ Dextrose/Sodium Chloride 1,005 ml @ 125 mls/hr Q8H3M IV 05/18/19 10:00 06/17/19 09:59 05/19/19 09:29 Assessment/Plan Assessment/Plan: Abx: Zosyn 05/18- Linezolid 05/18- Cefepime x1 05/17 Assessment: Severe Sepsis UTI Gram negative bacteremia Obstructive uropathy -05/18 sp cx normal resp joão (prelim) -u/a wbc 40-60, nit neg, leuk +3; Ucx >100k M. morganii (R amp, Ancef, cipro, bactrim; I Levaquin; otherwise S) -05/17 Bcx 07/11 GNR CXR: Reduced lung volumes with accentuation of bronchovascular markings. CT abd/p: Cholelithiasis. Bilateral nephrolithiasis. Stones in the bilateral renal pelvises and proximal ureters. 5-6 mm stone in the left mid ureter. Mild-moderate obstructive changes. Fever Leukocytosis hx of Recurrent malfunctioning R nephrostomy tube -01/21/19 SP removal: Patent right ureter, without evidence of residual ureteral stone disease.Nephrostomy therefore no longer necessary, was removed -01/21/19 Renal US: Limited exam, with only visualization of the right kidney. Negative for right hydronephrosis. Echogenic right renal foci, may represent calculi or the patient's nephrostomy tube, favor the latter. -01/2019 u/a wbc 10-15, nit +, leuk +3; ucx >100k P. stuarti- S AMikacin, Ceftriaxone, Cefepime, Zosyn (likely colonizer) -01/03/19 SP replacement suprapubic catheter and R NT -12/13/18 SP NT exchange hx MRSA and proteus septic shock/bacteremia 10/2018 HTN COPD DVT Dm2 GERD paraplegia aphasia dysphagia s/p GT chronic respiratory failure s/p trach dependent recurrent UTIs CVA/TIA quadriplegia neurogenic bladder s/p suprapubic catheter [place] resident CKD Plan: -Switch Zosyn #2 to MEropenem pending ID and sensi GNR -D/c linezolid #2 as no gram positive growth -f/u cx -Monitor CBC/CMP, temperatures -Uro eval -Trach/peg, SPC care -aspiration precautions Thank you for this consultation. Will continue to follow along with you. Discussed with Dorothea Sharma M.D. May 19, 2019 11:36
[2019-05-19 12:00] VITALS: BP 115/73
[2019-05-19] MEDS: Meropenem 1 GM in NS 55 ML IVPB SCH ×2 (12:02→21:10)
--- NOTE | 2019-05-19 12:31 | Diagnostic Imaging Report ---
Indication:Elevated Bun and Creatinine. Technique: Grayscale and duplex Doppler imaging of the kidneys performed. Comparison: None Findings: The size, contour, and echogenicity of both kidneys are within normal limits. Right renal cyst 1.5 cm noted. There is no hydronephrosis.. The right kidney measures 10.1 cm. in length. The left kidney measures 12.6 cm. in length. There is a 4 cm cyst within the left kidney. There is a nonobstructive stone in the left kidney. The IVC is patent. Urinary bladder mostly collapsed with trace urine. Suprapubic catheter noted. IMPRESSION: No obstructive nephropathy. Bilateral renal cysts. Nonobstructive stones in the left kidney. Suprapubic catheter
--- NOTE | 2019-05-19 13:19 | NUR ---
P.T Note: P.T evaluation completed. Pt is alert orient to person, place but not time however follows simple commands. No indication of pain nor discomfort noted. Pt presented multiple joint contractures on BLE and ( B) hand/finger deformities. Pt is totally dependent in all areas of bed mobility and self care/mobility tasks. Pt is already at baseline and not a candidate for skilled P.T services. Recommend DC to prior living arrangement. DC P.T services.
[2019-05-19 16:00] VITALS: BP 133/90
--- NOTE | 2019-05-19 16:10 | NUR ---
CASE MANAGEMENT: INITIAL REVIEW 59YR OLD MALE BIBA FROM [facility] CONV CC: FEVER X2 DAYS SI:SEPSIS . UTI. SUPRAPUBIC CATHETER DYSFUNCTION . RENAL STONE HX: QUADRIPLEGIC 102.9 LA 130 20 124/84 96% ON RA WBC 16.9 BUN 64 CREAT 2.0 BG 165 ABG: pO2 108.1 IS:IVF NS BOLUS X1 IV CEFEPIME X1 IV FLAGYL X1 TYLENOL GT X1 CT ABD/PEL- CHOLELITHIASIS; BILATERAL NEPHROLITHIASIS; STONES JAVIER RENAL PELVISES X-RAY CHEST \: 2W STEP DOWN UNIT PLAN: BLOOD CX - X2 (+) URINE CX(+) O2 AND PULM TREATMENTS PT EVAL ABX PER ID CASE MANAGEMENT: REVIEW 05/18/19 SI:SEPSIS . UTI. SUPRAPUBIC CATHETER DYSFUNCTION . RENAL STONE 100.5 130 20 138/62 98% ON RA WBC 15.8 H/H 12.5/37.8 NA+ 147 CL- 111 BUN 56 CREAT 1.9 BNP 616 C-REC PRO. >70.0 IS:IV LINEZOLID BID IV ZOSYN Q8HR HEPARIN SQ BID COREG GT BID IV PROTONIX BID IV KCL Q8HR \: 2W STEP DOWN UNIT PLAN: CONSULT CARDIO - TACHYCARDIA SPUTUM CX-PENDING US RENAL CASE MANAGEMENT: REVIEW 05/19/19 SI:SEPSIS . UTI. SUPRAPUBIC CATHETER DYSFUNCTION . RENAL STONE 98.1 100 18 119/79 100% ON RA WBC 12.2 H/H 12.2/36.6 CL- 109 BUN 41 CREAT 1.6 BNP 1386 C-REC PRO. 36.6 PHOS 2.2 MG 2.9 IS:IV MEROPENEM Q8HR HEPARIN SQ BID COREG GT BID IV PROTONIX BID IV KCL Q8HR \: 2W STEP DOWN UNIT PLAN: CONT IV ABX
--- NOTE | 2019-05-19 19:56 | Cardiology Progress Note ---
Assessment/Plan Assessment/Plan gnr bacteremia arf tachycardia volume depletion uri renal stones seem better hr and bp are better on ivabx awake and responsive lab noted egk note tele noted Subjective ROS Limited/Unobtainable: Yes Objective Last 24 Hour Vital Signs Date Time Temp Pulse Resp B/P (MAP) Pulse Ox O2 Delivery O2 Flow Rate FiO2 05/19/19 16:00 Room Air 05/19/19 16:00 97.9 72 22 133/90 (104) 99 05/19/19 15:29 66 05/19/19 12:00 Room Air 05/19/19 12:00 97.7 77 20 115/73 (87) 97 05/19/19 11:32 75 05/19/19 09:30 100 119/79 05/19/19 08:00 98.1 100 18 119/79 (92) 100 05/19/19 08:00 Room Air 05/19/19 07:40 83 05/19/19 03:59 Room Air 05/19/19 03:58 98.9 100 18 135/75 (95) 100 05/19/19 03:34 80 05/19/19 00:00 98.6 92 18 131/81 (98) 100 05/19/19 00:00 Room Air 05/18/19 23:30 99 05/18/19 20:21 103 138/91 05/18/19 20:00 Room Air 05/18/19 20:00 102 05/18/19 20:00 101 18 96 Room Air 21 General Appearance: no apparent distress, other - awake Cardiovascular: normal rate Respiratory/Chest: lungs clear Abdomen: normal bowel sounds, non tender, soft Extremities: no swelling Intake and Output 05/18/19 05/19/19 19:00 07:00 Intake Total 2045.0 ml 1257.5 ml Output Total 300 ml Balance 1745.0 ml 1257.5 ml Free Water 150 ml 100 ml IV Total 1535.0 ml 827.5 ml Tube Feeding 360 ml 330 ml Output Urine Total 300 ml Laboratory Tests Test 05/19/19 03:10 White Blood Count 12.2 K/UL (4.8-10.8) H Red Blood Count 4.30 M/UL (4.70-6.10) L Hemoglobin 12.2 G/DL (14.2-18.0) L Hematocrit 36.6 % (42.0-52.0) L Mean Corpuscular Volume 85 FL (80-99) Mean Corpuscular Hemoglobin 28.3 PG (27.0-31.0) Mean Corpuscular Hemoglobin Concent 33.3 G/DL (32.0-36.0) Red Cell Distribution Width 14.7 % (11.6-14.8) Platelet Count 174 K/UL (150-450) Mean Platelet Volume 9.2 FL (6.5-10.1) Neutrophils (%) (Auto) 65.5 % (45.0-75.0) Lymphocytes (%) (Auto) 18.2 % (20.0-45.0) L Monocytes (%) (Auto) 13.5 % (1.0-10.0) H Eosinophils (%) (Auto) 1.7 % (0.0-3.0) Basophils (%) (Auto) 1.2 % (0.0-2.0) Sodium Level 144 MMOL/L (136-145) Potassium Level 4.2 MMOL/L (3.5-5.1) Chloride Level 109 MMOL/L (98-107) H Carbon Dioxide Level 26 MMOL/L (21-32) Anion Gap 9 mmol/L (5-15) Blood Urea Nitrogen 41 mg/dL (7-18) H Creatinine 1.6 MG/DL (0.55-1.30) H Estimat Glomerular Filtration Rate 44.2 mL/min (>60) Glucose Level 126 MG/DL (74-106) H Uric Acid 5.6 MG/DL (2.6-7.2) Calcium Level 8.5 MG/DL (8.5-10.1) Phosphorus Level 2.2 MG/DL (2.5-4.9) L Magnesium Level 2.9 MG/DL (1.8-2.4) H Iron Level 21 ug/dL (50-175) L Total Iron Binding Capacity 216 ug/dL (250-450) L Percent Iron Saturation 10 % (15-50) L Unsaturated Iron Binding 195 ug/dL (112-346) Ferritin 215 NG/ML (8-388) Total Bilirubin 0.3 MG/DL (0.2-1.0) Aspartate Amino Transf (AST/SGOT) 22 U/L (15-37) Alanine Aminotransferase (ALT/SGPT) 12 U/L (12-78) Alkaline Phosphatase 67 U/L (46-116) C-Reactive Protein, Quantitative 36.6 mg/dL (0.00-0.90) H Pro-B-Type Natriuretic Peptide 1386 pg/mL (0-125) H Total Protein 8.0 G/DL (6.4-8.2) Albumin 2.4 G/DL (3.4-5.0) L Globulin 5.6 g/dL Albumin/Globulin Ratio 0.4 (1.0-2.7) L Vitamin B12 Level 873 PG/ML (193-986) Folate 34.9 NG/ML (8.6-58.9) Thyroid Stimulating Hormone (TSH) 1.099 uiU/mL (0.358-3.740) Microbiology Date/Time Source Procedure Growth Status 05/17/19 15:15 Blood Blood Culture - Preliminary Gram Negative Bacillus 1 Resulted 05/17/19 15:00 Blood Blood Culture - Preliminary Gram Negative Bacillus 1 Resulted 05/18/19 15:40 Sputum Gram Stain Pending Resulted 05/18/19 15:40 Sputum Sputum Culture - Preliminary NORMAL UPPER RESPIRATORY NANCY AT 24 ... Resulted 05/17/19 15:00 Urine,Clean Catch Urine Culture - Final Morganella Morg Spp Morganii Complete Bari Lebron MD May 19, 2019 19:56
[2019-05-19 20:00] VITALS: BP 139/89
--- NOTE | 2019-05-19 23:18 | NUR ---
HAND-OFF: Report given to Phoebe Guevara, RN, pt. remains stable and and no signs of distress noted. No seizure acitivity noted.
--- NOTE | 2019-05-19 23:30 | NUR ---
NURSE NOTES: Received report from Jeffery RN, pt. received in bed awake, A/OX1 No sob or respiratory distress noted, GT feeding infusing well at 30cc/hr. w/no residual noted. Supra pubic catheter in place but appears to be leaking. MD aware. Bed in low position and call light within each, bed alarm on, side rails up x3, side rails padded for seizure precautions- no seizure activity noted. LT. AC 20G iv intact and patent, RFA 20G running D5 1/2 w/10meq kcl infusing well at 125mls/hr. 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 Will continue POC.
[2019-05-20] VITALS: BP 137/79
[2019-05-20] MEDS: Potassium Chloride 10 MEQ in D5 1/2NS 1,000 ML IV SCH ×2 (01:46→09:34)
[2019-05-20 04:00] VITALS: BP 142/87
[2019-05-20 04:34] LABS: EOSINOPHILS % (AUTO) 4.3 % (0.0-3.0); HEMATOCRIT 33.5 % (42.0-52.0); HEMOGLOBIN 11.3 G/DL (14.2-18.0); LYMPHOCYTES % (AUTO) 33.8 % (20.0-45.0); MEAN CORPUSCULAR VOLUME 84 FL (80-99); MONOCYTES % (AUTO) 10.5 % (1.0-10.0); NEUTROPHILS % (AUTO) 49.4 % (45.0-75.0); PLATELET COUNT 191 K/UL (150-450); RED BLOOD COUNT 3.97 M/UL (4.70-6.10); RED CELL DISTRIBUTION WIDTH 14.7 % (11.6-14.8); WHITE BLOOD COUNT 6.9 K/UL (4.8-10.8)
[2019-05-20 05:01] LABS: ALANINE AMINOTRANSFERASE 18 U/L (12-78); ALBUMIN 2.2 G/DL (3.4-5.0); ALBUMIN/GLOBULIN RATIO 0.4 (1.0-2.7); ALKALINE PHOSPHATASE 59 U/L (46-116); ANION GAP 6 mmol/L (5-15); ASPARTATE AMINO TRANSFERASE 14 U/L (15-37); BILIRUBIN,TOTAL 0.2 MG/DL (0.2-1.0); BLOOD UREA NITROGEN 24 mg/dL (7-18); CALCIUM 8.5 MG/DL (8.5-10.1); CARBON DIOXIDE 27 MMOL/L (21-32); CHLORIDE 110 MMOL/L (98-107); CREATININE 1.1 MG/DL (0.55-1.30); POTASSIUM 3.7 MMOL/L (3.5-5.1); SODIUM 143 MMOL/L (136-145)
[2019-05-20] MEDS: Meropenem 1 GM in NS 55 ML IVPB SCH ×3 (05:30→21:35)
--- NOTE | 2019-05-20 07:15 | NUR ---
NURSE NOTES: Received report from Virginia Rodriguez RN. Patient asleep in bed, opens eyes spontaneously, able to answer simple questions. On room air, respirations even and unlabored. GT feeding of Nepro running @ 30 cc/hr, no residuals noted. HoB elevated. Suprapubic catheter in place, leaking. Right forearm 20g IV site infusing D51/2NS with 10 meq KCl @ 125 cc/hr, no s/s of infiltration noted. Left AC 20g saline lock patent and asymptomatic. Bed locked in lowest position with padded side rails up x 3. All needs attended to. Call light within reach. Will continue to monitor.
[2019-05-20 08:00] VITALS: BP 129/83
[2019-05-20] MEDS: Docusate 100mg/10ml Liq GT SCH ×2 (09:32→18:00)
[2019-05-20] MEDS: Pantoprazole Inj IV SCH ×2 (09:32→21:32)
[2019-05-20] MEDS: Carvedilol 6.25mg Tab GT SCH ×2 (09:33→21:32)
--- NOTE | 2019-05-20 09:34 | NUR ---
RADIOLOGY DEPT., CHEST X-RAY DONE.-P.DYE
[2019-05-20] MEDS: Heparin 5000 units/ml inj SUBQ SCH ×2 (09:35→21:33)
--- NOTE | 2019-05-20 10:17 | Pulmonology Progress Note ---
Assessment/Plan Problems: (1) Sepsis (2) COPD (chronic obstructive pulmonary disease) (3) Suprapubic catheter dysfunction (4) Renal failure (ARF), acute on chronic (5) Feeding by G-tube (6) Diabetes mellitus (7) History of CVA (cerebrovascular accident) Assessment/Plan all reviewed WBC decreasing respiratory treatment iv abx titrate fio2 to sat of 92% tolerating feeding by Gtube sliding scale sputum induction chest PT f/u wbc Subjective ROS Limited/Unobtainable: Yes Interval Events: awake, not talking Allergies: Coded Allergies: VANCOMYCIN (Verified Allergy, Mild, Redness , 10/29/18) CIPROFLOXACIN (Verified Allergy, Unknown, 08/23/15) Objective Last 24 Hour Vital Signs Date Time Temp Pulse Resp B/P (MAP) Pulse Ox O2 Delivery O2 Flow Rate FiO2 05/20/19 09:33 66 129/83 05/20/19 08:00 98.2 66 23 129/83 (98) 98 05/20/19 04:00 98.1 97 20 142/87 (105) 99 05/20/19 04:00 Room Air 05/20/19 03:38 74 05/20/19 00:00 98.3 97 20 137/79 (98) 97 05/20/19 00:00 Room Air 05/20/19 00:00 77 05/19/19 20:00 Room Air 05/19/19 20:00 70 139/89 05/19/19 20:00 97.6 70 20 139/89 (106) 97 05/19/19 19:04 87 05/19/19 19:00 100 18 96 Room Air 21 05/19/19 16:00 Room Air 05/19/19 16:00 97.9 72 22 133/90 (104) 99 05/19/19 15:29 66 05/19/19 12:00 Room Air 05/19/19 12:00 97.7 77 20 115/73 (87) 97 05/19/19 11:32 75 Intake and Output 05/19/19 05/20/19 19:00 07:00 Intake Total 1463 ml 1915 ml Output Total 700 ml Balance 763 ml 1915 ml Free Water 50 ml 100 ml IV Total 1173 ml 1485 ml Tube Feeding 240 ml 330 ml Output Urine Total 700 ml General Appearance: WD/WN HEENT: normocephalic Respiratory/Chest: chest wall non-tender, lungs clear Cardiovascular: normal peripheral pulses, normal rate Abdomen: normal bowel sounds, no organomegaly Skin: no rash Microbiology Date/Time Source Procedure Growth Status 05/17/19 15:15 Blood Blood Culture - Preliminary Proteus Mirabilis Resulted 05/17/19 15:00 Blood Blood Culture - Preliminary Proteus Mirabilis Resulted 05/18/19 15:40 Sputum Gram Stain - Final Resulted 05/18/19 15:40 Sputum Culture - Preliminary Gram Negative Bacillus 1 Usual Respiratory Vivian Resulted 05/17/19 18:00 Nasal Nares MRSA Culture - Final Staphylococcus Aureus - Mrsa Complete 05/17/19 15:00 Urine,Clean Catch Urine Culture - Final Morganella Morg Spp Morganii Complete 05/17/19 18:00 Rectum VRE Culture - Final Enterococcus Faecium - Vre Complete 05/17/19 18:00 Rectum - Final NO CARBAPENEM-RESISTANT ENTEROBACTERI... Complete Laboratory Tests 05/20/19 03:45: White Blood Count 6.9, Red Blood Count 3.97L, Hemoglobin 11.3L, Hematocrit 33.5L , Mean Corpuscular Volume 84, Mean Corpuscular Hemoglobin 28.4, Mean Corpuscular Hemoglobin Concent 33.8, Red Cell Distribution Width 14.7, Platelet Count 191, Mean Platelet Volume 9.0, Neutrophils (%) (Auto) 49.4, Lymphocytes (% ) (Auto) 33.8, Monocytes (%) (Auto) 10.5H, Eosinophils (%) (Auto) 4.3H, Basophils (%) (Auto) 2.0, Sodium Level 143, Potassium Level 3.7, Chloride Level 110H, Carbon Dioxide Level 27, Anion Gap 6, Blood Urea Nitrogen 24H, Creatinine 1.1, Estimat Glomerular Filtration Rate > 60, Glucose Level 123H, Calcium Level 8.5, Total Bilirubin 0.2, Aspartate Amino Transf (AST/SGOT) 14L, Alanine Aminotransferase (ALT/SGPT) 18, Alkaline Phosphatase 59, Pro-B-Type Natriuretic Peptide 603H, Total Protein 7.4, Albumin 2.2L, Globulin 5.2, Albumin/Globulin Ratio 0.4L Current Medications Medications (Trade) Dose Ordered Sig/Fab Route PRN Reason Start Time Stop Time Status Last Admin Dose Admin Acetaminophen (Tylenol) 650 mg Q4H PRN ORAL FEVER 05/17/19 17:30 06/16/19 17:29 05/18/19 03:25 Albuterol/ Ipratropium (Albuterol/ Ipratropium) 3 ml Q4H PRN HHN Shortness of Breath 05/17/19 17:30 05/22/19 17:29 Carvedilol (Coreg) 6.25 mg EVERY 12 HOURS GT 05/17/19 21:00 06/16/19 20:59 05/20/19 09:33 Dextrose (Dextrose 50%) 25 ml Q30M PRN IV Hypoglycemia 05/17/19 17:30 06/16/19 17:29 Dextrose (Dextrose 50%) 50 ml Q30M PRN IV Hypoglycemia 05/17/19 17:30 06/16/19 17:29 Docusate Sodium (Colace) 100 mg BID GT 05/18/19 18:00 06/17/19 17:59 05/20/19 09:32 Heparin Sodium (Porcine) (Heparin 5000 units/ml) 5,000 units EVERY 12 HOURS SUBQ 05/17/19 21:00 06/16/19 20:59 05/20/19 09:35 Meropenem 1 gm/ Sodium Chloride 55 ml @ 110 mls/hr Q8HR IVPB 05/19/19 12:30 05/24/19 12:29 05/20/19 05:30 Ondansetron HCl (Zofran) 4 mg Q6H PRN IVP Nausea & Vomiting 05/17/19 17:30 06/16/19 17:29 Pantoprazole (Protonix) 40 mg Q12HR IV 05/18/19 21:00 06/17/19 08:59 05/20/19 09:32 Polyethylene Glycol (Miralax) 17 gm DAILYPRN PRN ORAL Constipation 05/17/19 17:30 06/16/19 17:29 Potassium Chloride 10 meq/ Dextrose/Sodium Chloride 1,005 ml @ 50 mls/hr Q20H6M IV 05/20/19 09:00 06/17/19 08:59 05/20/19 09:34 Rigoberto Bryant MD May 20, 2019 10:17
[2019-05-20 12:00] VITALS: BP 125/81
--- NOTE | 2019-05-20 12:02 | Infectious Diseases Prog Note ---
Assessment/Plan Assessment/Plan Assessment: Severe Sepsis UTI Proteus bacteremia Obstructive uropathy -05/18 sp cx normal resp joão , GNB (colonizer), no PNA on CXR -u/a wbc 40-60, nit neg, leuk +3; Ucx >100k M. morganii (R amp, Ancef, cipro, bactrim; I Levaquin; otherwise S) -05/17 Bcx 07/11 P. mirabilis, probable AmpC (S Zosyn, Meropenem) CXR: Reduced lung volumes with accentuation of bronchovascular markings. CT abd/p: Cholelithiasis. Bilateral nephrolithiasis. Stones in the bilateral renal pelvises and proximal ureters. 5-6 mm stone in the left mid ureter. Mild-moderate obstructive changes. Fever; SP Leukocytosis; SP GILDARDO, improving -Renal US: No obstructive nephropathy. Bilateral renal cysts. Nonobstructive stones in the left kidney. Suprapubic catheter hx of Recurrent malfunctioning R nephrostomy tube -01/21/19 SP removal: Patent right ureter, without evidence of residual ureteral stone disease.Nephrostomy therefore no longer necessary, was removed -01/21/19 Renal US: Limited exam, with only visualization of the right kidney. Negative for right hydronephrosis. Echogenic right renal foci, may represent calculi or the patient's nephrostomy tube, favor the latter. -01/2019 u/a wbc 10-15, nit +, leuk +3; ucx >100k P. stuarti- S AMikacin, Ceftriaxone, Cefepime, Zosyn (likely colonizer) -01/03/19 SP replacement suprapubic catheter and R NT -12/13/18 SP NT exchange hx MRSA and proteus septic shock/bacteremia 10/2018 HTN COPD DVT Dm2 GERD paraplegia aphasia dysphagia s/p GT chronic respiratory failure s/p trach dependent recurrent UTIs CVA/TIA quadriplegia neurogenic bladder s/p suprapubic catheter PA resident CKD MRSA and VRE colonized Plan: -Continue empiric MEropenem #2 for Proteus bacteremia and morganella UTI -05/19 SP linezolid #2, Zosyn #2 -05/17 SP Cefepime x1 -f/u cx -Monitor CBC/CMP, temperatures -Uro eval -Trach/peg, SPC care -aspiration precautions -f/u repeat bcx Thank you for this consultation. Will continue to follow along with you. Discussed with RN Subjective Allergies: Coded Allergies: VANCOMYCIN (Verified Allergy, Mild, Redness , 10/29/18) CIPROFLOXACIN (Verified Allergy, Unknown, 08/23/15) Subjective afebrile >48hrs leukocytosis resolved Cr improving Objective Vital Signs Last 24 Hour Vital Signs Date Time Temp Pulse Resp B/P (MAP) Pulse Ox O2 Delivery O2 Flow Rate FiO2 05/20/19 09:33 66 129/83 05/20/19 08:00 Room Air 05/20/19 08:00 98.2 66 23 129/83 (98) 98 05/20/19 07:40 65 05/20/19 04:00 98.1 97 20 142/87 (105) 99 05/20/19 04:00 Room Air 05/20/19 03:38 74 05/20/19 00:00 98.3 97 20 137/79 (98) 97 05/20/19 00:00 Room Air 05/20/19 00:00 77 05/19/19 20:00 Room Air 05/19/19 20:00 70 139/89 05/19/19 20:00 97.6 70 20 139/89 (106) 97 05/19/19 19:04 87 05/19/19 19:00 100 18 96 Room Air 21 05/19/19 16:00 Room Air 05/19/19 16:00 97.9 72 22 133/90 (104) 99 05/19/19 15:29 66 05/19/19 12:00 Room Air 05/19/19 12:00 97.7 77 20 115/73 (87) 97 Height (Feet): 5 Height (Inches): 10.00 Weight (Pounds): 220 Objective GENERAL: no disterss CARDIOVASCULAR: No murmur. LUNGS: Poor air exchange. ABDOMEN: non tender EXTREMITIES: No cyanosis, clubbing, or edema. Microbiology Date/Time Source Procedure Growth Status 05/17/19 15:15 Blood Blood Culture - Preliminary Proteus Mirabilis Resulted 05/17/19 15:00 Blood Blood Culture - Preliminary Proteus Mirabilis Resulted 05/18/19 15:40 Sputum Gram Stain - Final Resulted 05/18/19 15:40 Sputum Culture - Preliminary Gram Negative Bacillus 1 Usual Respiratory João Resulted 05/17/19 18:00 Nasal Nares MRSA Culture - Final Staphylococcus Aureus - Mrsa Complete 05/17/19 15:00 Urine,Clean Catch Urine Culture - Final Morganella Morg Spp Morganii Complete 05/17/19 18:00 Rectum VRE Culture - Final Enterococcus Faecium - Vre Complete 05/17/19 18:00 Rectum - Final NO CARBAPENEM-RESISTANT ENTEROBACTERI... Complete Laboratory Tests Test 05/20/19 03:45 White Blood Count 6.9 K/UL (4.8-10.8) Red Blood Count 3.97 M/UL (4.70-6.10) L Hemoglobin 11.3 G/DL (14.2-18.0) L Hematocrit 33.5 % (42.0-52.0) L Mean Corpuscular Volume 84 FL (80-99) Mean Corpuscular Hemoglobin 28.4 PG (27.0-31.0) Mean Corpuscular Hemoglobin Concent 33.8 G/DL (32.0-36.0) Red Cell Distribution Width 14.7 % (11.6-14.8) Platelet Count 191 K/UL (150-450) Mean Platelet Volume 9.0 FL (6.5-10.1) Neutrophils (%) (Auto) 49.4 % (45.0-75.0) Lymphocytes (%) (Auto) 33.8 % (20.0-45.0) Monocytes (%) (Auto) 10.5 % (1.0-10.0) H Eosinophils (%) (Auto) 4.3 % (0.0-3.0) H Basophils (%) (Auto) 2.0 % (0.0-2.0) Sodium Level 143 MMOL/L (136-145) Potassium Level 3.7 MMOL/L (3.5-5.1) Chloride Level 110 MMOL/L (98-107) H Carbon Dioxide Level 27 MMOL/L (21-32) Anion Gap 6 mmol/L (5-15) Blood Urea Nitrogen 24 mg/dL (7-18) H Creatinine 1.1 MG/DL (0.55-1.30) Estimat Glomerular Filtration Rate > 60 mL/min (>60) Glucose Level 123 MG/DL (74-106) H Calcium Level 8.5 MG/DL (8.5-10.1) Total Bilirubin 0.2 MG/DL (0.2-1.0) Aspartate Amino Transf (AST/SGOT) 14 U/L (15-37) L Alanine Aminotransferase (ALT/SGPT) 18 U/L (12-78) Alkaline Phosphatase 59 U/L (46-116) Pro-B-Type Natriuretic Peptide 603 pg/mL (0-125) H Total Protein 7.4 G/DL (6.4-8.2) Albumin 2.2 G/DL (3.4-5.0) L Globulin 5.2 g/dL Albumin/Globulin Ratio 0.4 (1.0-2.7) L Current Medications Medications (Trade) Dose Ordered Sig/Fab Route PRN Reason Start Time Stop Time Status Last Admin Dose Admin Acetaminophen (Tylenol) 650 mg Q4H PRN ORAL FEVER 05/17/19 17:30 06/16/19 17:29 05/18/19 03:25 Albuterol/ Ipratropium (Albuterol/ Ipratropium) 3 ml Q4H PRN HHN Shortness of Breath 05/17/19 17:30 05/22/19 17:29 Carvedilol (Coreg) 6.25 mg EVERY 12 HOURS GT 05/17/19 21:00 06/16/19 20:59 05/20/19 09:33 Dextrose (Dextrose 50%) 25 ml Q30M PRN IV Hypoglycemia 05/17/19 17:30 06/16/19 17:29 Dextrose (Dextrose 50%) 50 ml Q30M PRN IV Hypoglycemia 05/17/19 17:30 06/16/19 17:29 Docusate Sodium (Colace) 100 mg BID GT 05/18/19 18:00 06/17/19 17:59 05/20/19 09:32 Heparin Sodium (Porcine) (Heparin 5000 units/ml) 5,000 units EVERY 12 HOURS SUBQ 05/17/19 21:00 06/16/19 20:59 05/20/19 09:35 Meropenem 1 gm/ Sodium Chloride 55 ml @ 110 mls/hr Q8HR IVPB 05/19/19 12:30 05/24/19 12:29 05/20/19 05:30 Ondansetron HCl (Zofran) 4 mg Q6H PRN IVP Nausea & Vomiting 05/17/19 17:30 06/16/19 17:29 Pantoprazole (Protonix) 40 mg Q12HR IV 05/18/19 21:00 06/17/19 08:59 05/20/19 09:32 Polyethylene Glycol (Miralax) 17 gm DAILYPRN PRN ORAL Constipation 05/17/19 17:30 06/16/19 17:29 Potassium Chloride 10 meq/ Dextrose/Sodium Chloride 1,005 ml @ 50 mls/hr Q20H6M IV 05/20/19 09:00 06/17/19 08:59 05/20/19 09:34 Dorothea Macario M.D. May 20, 2019 12:02
--- NOTE | 2019-05-20 13:59 | General Progress Note ---
Assessment/Plan Problem List: (1) UTI (urinary tract infection) ICD Codes: N39.0 - Urinary tract infection, site not specified SNOMED: 45464784 (2) Sepsis ICD Codes: A41.9 - Sepsis, unspecified organism SNOMED: 18404392 (3) Suprapubic catheter dysfunction ICD Codes: T83.010A - Breakdown (mechanical) of cystostomy catheter, initial encounter SNOMED: 604552670 (4) Decubitus skin ulcer ICD Codes: L89.90 - Pressure ulcer of unspecified site, unspecified stage SNOMED: 447868700 (5) History of DVT (deep vein thrombosis) ICD Codes: Z86.718 - Personal history of other venous thrombosis and embolism SNOMED: 980907122 (6) Aphasia ICD Codes: R47.01 - Aphasia SNOMED: 61531379 (7) Diabetes mellitus ICD Codes: E11.9 - Type 2 diabetes mellitus without complications SNOMED: 38650150 (8) Obstructive hydrocephalus ICD Codes: G91.1 - Obstructive hydrocephalus SNOMED: 578134403 (9) Renal failure (ARF), acute on chronic ICD Codes: N17.9 - Acute kidney failure, unspecified; N18.9 - Chronic kidney disease, unspecified SNOMED: 317435642 (10) History of CVA (cerebrovascular accident) ICD Codes: Z86.73 - Personal history of transient ischemic attack (TIA), and cerebral infarction without residual deficits SNOMED: 434094830 (11) Encephalopathy chronic ICD Codes: G93.49 - Other encephalopathy SNOMED: 03074412 Status: stable, progressing Assessment/Plan: pt diet abx uro eval cbc bmp am dc plan if clear id and uro Subjective Allergies: Coded Allergies: VANCOMYCIN (Verified Allergy, Mild, Redness , 10/29/18) CIPROFLOXACIN (Verified Allergy, Unknown, 08/23/15) All Systems: reviewed and negative except above Subjective sleepy calm Objective Last 24 Hour Vital Signs Date Time Temp Pulse Resp B/P (MAP) Pulse Ox O2 Delivery O2 Flow Rate FiO2 05/20/19 12:00 Room Air 05/20/19 12:00 97.7 71 21 125/81 (96) 98 05/20/19 11:40 66 05/20/19 09:33 66 129/83 05/20/19 08:00 Room Air 05/20/19 08:00 98.2 66 23 129/83 (98) 98 05/20/19 07:40 65 05/20/19 04:00 98.1 97 20 142/87 (105) 99 05/20/19 04:00 Room Air 05/20/19 03:38 74 05/20/19 00:00 98.3 97 20 137/79 (98) 97 05/20/19 00:00 Room Air 05/20/19 00:00 77 05/19/19 20:00 Room Air 05/19/19 20:00 70 139/89 05/19/19 20:00 97.6 70 20 139/89 (106) 97 05/19/19 19:04 87 05/19/19 19:00 100 18 96 Room Air 21 05/19/19 16:00 Room Air 05/19/19 16:00 97.9 72 22 133/90 (104) 99 05/19/19 15:29 66 Intake and Output 05/19/19 05/20/19 19:00 07:00 Intake Total 1463 ml 1915 ml Output Total 700 ml Balance 763 ml 1915 ml Free Water 50 ml 100 ml IV Total 1173 ml 1485 ml Tube Feeding 240 ml 330 ml Output Urine Total 700 ml Laboratory Tests 05/20/19 03:45: White Blood Count 6.9, Red Blood Count 3.97L, Hemoglobin 11.3L, Hematocrit 33.5L , Mean Corpuscular Volume 84, Mean Corpuscular Hemoglobin 28.4, Mean Corpuscular Hemoglobin Concent 33.8, Red Cell Distribution Width 14.7, Platelet Count 191, Mean Platelet Volume 9.0, Neutrophils (%) (Auto) 49.4, Lymphocytes (% ) (Auto) 33.8, Monocytes (%) (Auto) 10.5H, Eosinophils (%) (Auto) 4.3H, Basophils (%) (Auto) 2.0, Sodium Level 143, Potassium Level 3.7, Chloride Level 110H, Carbon Dioxide Level 27, Anion Gap 6, Blood Urea Nitrogen 24H, Creatinine 1.1, Estimat Glomerular Filtration Rate > 60, Glucose Level 123H, Calcium Level 8.5, Total Bilirubin 0.2, Aspartate Amino Transf (AST/SGOT) 14L, Alanine Aminotransferase (ALT/SGPT) 18, Alkaline Phosphatase 59, Pro-B-Type Natriuretic Peptide 603H, Total Protein 7.4, Albumin 2.2L, Globulin 5.2, Albumin/Globulin Ratio 0.4L Height (Feet): 5 Height (Inches): 10.00 Weight (Pounds): 220 General Appearance: lethargic EENT: normal ENT inspection Neck: normal alignment Cardiovascular: normal peripheral pulses, normal rate, regular rhythm Respiratory/Chest: chest wall non-tender, lungs clear, normal breath sounds Abdomen: normal bowel sounds, non tender, soft Extremities: normal inspection Edema: no edema noted Arm (L), no edema noted Arm (R), no edema noted Leg (L), no edema noted Leg (R), no edema noted Pedal (L), no edema noted Pedal (R), no edema noted Generalized Neurologic: motor weakness Skin: normal pigmentation, warm/dry Jaylen Bear DO May 20, 2019 13:59
--- NOTE | 2019-05-20 14:02 | Diagnostic Imaging Report ---
. Indication: Dyspnea Technique: One view of the chest Comparison: 05/17/2019 Findings: Left rib fracture deformity is again demonstrated. The lungs and pleural spaces are clear. Heart size is upper limits normal. The aorta is tortuous and ectatic Impression: No acute process
--- NOTE | 2019-05-20 14:57 | Nephrology Progress Note ---
Assessment/Plan Problem List: (1) Renal failure (ARF), acute on chronic (2) UTI (urinary tract infection) (3) Suprapubic catheter Assessment acute renal failure UTI SupraPubic Cath Dysfunction leakage Plan Nepro for feeding lower Hydrate kidneyUTZ No obstructive nephropathy. Bilateral renal cysts. Nonobstructive stones in the left kidney. skin care monitor renal parameters per orders Subjective ROS Limited/Unobtainable: No Constitutional: Reports: malaise, weakness Objective Objective Last 24 Hour Vital Signs Date Time Temp Pulse Resp B/P (MAP) Pulse Ox O2 Delivery O2 Flow Rate FiO2 05/20/19 12:00 Room Air 05/20/19 12:00 97.7 71 21 125/81 (96) 98 05/20/19 11:40 66 05/20/19 09:33 66 129/83 05/20/19 08:00 Room Air 05/20/19 08:00 98.2 66 23 129/83 (98) 98 05/20/19 07:40 65 05/20/19 04:00 98.1 97 20 142/87 (105) 99 05/20/19 04:00 Room Air 05/20/19 03:38 74 05/20/19 00:00 98.3 97 20 137/79 (98) 97 05/20/19 00:00 Room Air 05/20/19 00:00 77 05/19/19 20:00 Room Air 05/19/19 20:00 70 139/89 05/19/19 20:00 97.6 70 20 139/89 (106) 97 05/19/19 19:04 87 05/19/19 19:00 100 18 96 Room Air 21 05/19/19 16:00 Room Air 05/19/19 16:00 97.9 72 22 133/90 (104) 99 05/19/19 15:29 66 Intake and Output 05/19/19 05/20/19 19:00 07:00 Intake Total 1463 ml 1915 ml Output Total 700 ml Balance 763 ml 1915 ml Free Water 50 ml 100 ml IV Total 1173 ml 1485 ml Tube Feeding 240 ml 330 ml Output Urine Total 700 ml Laboratory Tests 05/20/19 03:45: White Blood Count 6.9, Red Blood Count 3.97L, Hemoglobin 11.3L, Hematocrit 33.5L , Mean Corpuscular Volume 84, Mean Corpuscular Hemoglobin 28.4, Mean Corpuscular Hemoglobin Concent 33.8, Red Cell Distribution Width 14.7, Platelet Count 191, Mean Platelet Volume 9.0, Neutrophils (%) (Auto) 49.4, Lymphocytes (% ) (Auto) 33.8, Monocytes (%) (Auto) 10.5H, Eosinophils (%) (Auto) 4.3H, Basophils (%) (Auto) 2.0, Sodium Level 143, Potassium Level 3.7, Chloride Level 110H, Carbon Dioxide Level 27, Anion Gap 6, Blood Urea Nitrogen 24H, Creatinine 1.1, Estimat Glomerular Filtration Rate > 60, Glucose Level 123H, Calcium Level 8.5, Total Bilirubin 0.2, Aspartate Amino Transf (AST/SGOT) 14L, Alanine Aminotransferase (ALT/SGPT) 18, Alkaline Phosphatase 59, Pro-B-Type Natriuretic Peptide 603H, Total Protein 7.4, Albumin 2.2L, Globulin 5.2, Albumin/Globulin Ratio 0.4L Height (Feet): 5 Height (Inches): 10.00 Weight (Pounds): 220 General Appearance: no apparent distress Cardiovascular: normal rate Respiratory/Chest: decreased breath sounds Abdomen: distended Pranav Grady MD May 20, 2019 14:57
[2019-05-20 16:00] VITALS: BP 136/92
--- NOTE | 2019-05-20 16:43 | NUR ---
NURSE NOTES: Dr. Funk contacted for urology consult by Dr. Bear for leaking suprapubic catheter.
--- NOTE | 2019-05-20 17:53 | Cardiology Progress Note ---
Assessment/Plan Assessment/Plan gnr bacteremia arf tachycardia volume depletion uri renal stones seem better hr and bp are better infact bp elevated now on ivabx awake and responsive lab noted egk note tele sinus not tachy renal function is better Subjective ROS Limited/Unobtainable: Yes Objective Last 24 Hour Vital Signs Date Time Temp Pulse Resp B/P (MAP) Pulse Ox O2 Delivery O2 Flow Rate FiO2 05/20/19 16:00 Room Air 05/20/19 12:00 Room Air 05/20/19 12:00 97.7 71 21 125/81 (96) 98 05/20/19 11:40 66 05/20/19 09:33 66 129/83 05/20/19 08:00 Room Air 05/20/19 08:00 98.2 66 23 129/83 (98) 98 05/20/19 07:40 65 05/20/19 04:00 98.1 97 20 142/87 (105) 99 05/20/19 04:00 Room Air 05/20/19 03:38 74 05/20/19 00:00 98.3 97 20 137/79 (98) 97 05/20/19 00:00 Room Air 05/20/19 00:00 77 05/19/19 20:00 Room Air 05/19/19 20:00 70 139/89 05/19/19 20:00 97.6 70 20 139/89 (106) 97 05/19/19 19:04 87 05/19/19 19:00 100 18 96 Room Air 21 General Appearance: no apparent distress, alert Neck: supple Cardiovascular: normal rate, regular rhythm Respiratory/Chest: lungs clear Abdomen: normal bowel sounds, non tender, soft Extremities: no swelling, other - contracted Intake and Output 05/19/19 05/20/19 19:00 07:00 Intake Total 1463 ml 1915 ml Output Total 700 ml Balance 763 ml 1915 ml Free Water 50 ml 100 ml IV Total 1173 ml 1485 ml Tube Feeding 240 ml 330 ml Output Urine Total 700 ml Laboratory Tests Test 05/20/19 03:45 White Blood Count 6.9 K/UL (4.8-10.8) Red Blood Count 3.97 M/UL (4.70-6.10) L Hemoglobin 11.3 G/DL (14.2-18.0) L Hematocrit 33.5 % (42.0-52.0) L Mean Corpuscular Volume 84 FL (80-99) Mean Corpuscular Hemoglobin 28.4 PG (27.0-31.0) Mean Corpuscular Hemoglobin Concent 33.8 G/DL (32.0-36.0) Red Cell Distribution Width 14.7 % (11.6-14.8) Platelet Count 191 K/UL (150-450) Mean Platelet Volume 9.0 FL (6.5-10.1) Neutrophils (%) (Auto) 49.4 % (45.0-75.0) Lymphocytes (%) (Auto) 33.8 % (20.0-45.0) Monocytes (%) (Auto) 10.5 % (1.0-10.0) H Eosinophils (%) (Auto) 4.3 % (0.0-3.0) H Basophils (%) (Auto) 2.0 % (0.0-2.0) Sodium Level 143 MMOL/L (136-145) Potassium Level 3.7 MMOL/L (3.5-5.1) Chloride Level 110 MMOL/L (98-107) H Carbon Dioxide Level 27 MMOL/L (21-32) Anion Gap 6 mmol/L (5-15) Blood Urea Nitrogen 24 mg/dL (7-18) H Creatinine 1.1 MG/DL (0.55-1.30) Estimat Glomerular Filtration Rate > 60 mL/min (>60) Glucose Level 123 MG/DL (74-106) H Calcium Level 8.5 MG/DL (8.5-10.1) Total Bilirubin 0.2 MG/DL (0.2-1.0) Aspartate Amino Transf (AST/SGOT) 14 U/L (15-37) L Alanine Aminotransferase (ALT/SGPT) 18 U/L (12-78) Alkaline Phosphatase 59 U/L (46-116) Pro-B-Type Natriuretic Peptide 603 pg/mL (0-125) H Total Protein 7.4 G/DL (6.4-8.2) Albumin 2.2 G/DL (3.4-5.0) L Globulin 5.2 g/dL Albumin/Globulin Ratio 0.4 (1.0-2.7) L Microbiology Date/Time Source Procedure Growth Status 05/18/19 15:40 Sputum Gram Stain - Final Resulted 05/18/19 15:40 Sputum Culture - Preliminary Gram Negative Bacillus 1 Usual Respiratory Vivian Resulted 05/17/19 18:00 Nasal Nares MRSA Culture - Final Staphylococcus Aureus - Mrsa Complete 05/17/19 18:00 Rectum VRE Culture - Final Enterococcus Faecium - Vre Complete 05/17/19 18:00 Rectum - Final NO CARBAPENEM-RESISTANT ENTEROBACTERI... Complete Bari Lebron MD May 20, 2019 17:53
--- NOTE | 2019-05-20 19:20 | NUR ---
NURSE NOTES: Received pt from CANDI Trujillo. pt is observed resting in bed, eyes open, able to follow simple commands. pt c/o bilateral heel pain at this time, will administer pain med as per MD order. pt is on room air, tolerating well; no s/sx of respiratory distress noted at this time. no acute cardiac distress noted. G-tube site is patent and intact, running Nepro at 30 cc/hr. HOB elevated to 45 degrees, no residual noted. suprapubic catheter noted to be leaking. skin alterations noted. RFA 20 g IV site patent and intact, running D5 1/2 NS with 10 meq KCl at 50 cc/hr. LAC 20 g IV site is patent and intact, asymptomatic. bed in lowest position and locked, padded siderails up X3, call light within reach. will continue to monitor.
--- NOTE | 2019-05-20 19:29 | NUR ---
HAND-OFF: Report given to Virginia Wiggins RN.
[2019-05-20 20:00] VITALS: BP 148/91
[2019-05-21] VITALS: BP 130/83
[2019-05-21 04:00] VITALS: BP 115/77
[2019-05-21] MEDS: Potassium Chloride 10 MEQ in D5 1/2NS 1,000 ML IV SCH ×2 (05:41→06:12)
[2019-05-21] MEDS: Meropenem 1 GM in NS 55 ML IVPB SCH ×3 (05:42→21:38)
[2019-05-21] MEDS ORDERED: D5 1/2NS w/KCL 10meq 1,000 ML IV ONE (06:06)
[2019-05-21 07:03] LABS: BASOPHILS % (AUTO) 0.9 % (0.0-2.0); EOSINOPHILS % (AUTO) 5.2 % (0.0-3.0); HEMATOCRIT 37.1 % (42.0-52.0); HEMOGLOBIN 12.3 G/DL (14.2-18.0); LYMPHOCYTES % (AUTO) 38.2 % (20.0-45.0); MEAN CORPUSCULAR VOLUME 84 FL (80-99); MONOCYTES % (AUTO) 8.8 % (1.0-10.0); NEUTROPHILS % (AUTO) 46.9 % (45.0-75.0); PLATELET COUNT 226 K/UL (150-450); RED BLOOD COUNT 4.41 M/UL (4.70-6.10); RED CELL DISTRIBUTION WIDTH 14.4 % (11.6-14.8); WHITE BLOOD COUNT 6.4 K/UL (4.8-10.8)
[2019-05-21 07:08] LABS: ALANINE AMINOTRANSFERASE 12 U/L (12-78); ALBUMIN 2.4 G/DL (3.4-5.0); ALBUMIN/GLOBULIN RATIO 0.4 (1.0-2.7); ALKALINE PHOSPHATASE 59 U/L (46-116); ANION GAP 9 mmol/L (5-15); ASPARTATE AMINO TRANSFERASE 15 U/L (15-37); BILIRUBIN,TOTAL 0.2 MG/DL (0.2-1.0); BLOOD UREA NITROGEN 20 mg/dL (7-18); CALCIUM 8.8 MG/DL (8.5-10.1); CARBON DIOXIDE 27 MMOL/L (21-32); CHLORIDE 108 MMOL/L (98-107); CREATININE 0.9 MG/DL (0.55-1.30); PHOSPHORUS 3.2 MG/DL (2.5-4.9); POTASSIUM 3.8 MMOL/L (3.5-5.1); SODIUM 144 MMOL/L (136-145)
--- NOTE | 2019-05-21 07:37 | NUR ---
HAND-OFF: Report given to Jenna Rodriguez RN. pt is in stable condition.
--- NOTE | 2019-05-21 07:50 | NUR ---
NURSE NOTES: received pt in the bes, sleeping, vital signs stable, no co pain, no SOB, respiration regular on RA, skin warm and dry to touch, suprapubic catheter, leaking, tolerate GT feeding well, Nepro 30cc/h, no residual, D6
[2019-05-21 08:00] VITALS: BP 130/82
--- NOTE | 2019-05-21 08:00 | NUR ---
NURSE NOTES: bed in low position, call light within reach, HOB elevated.
[2019-05-21] MEDS: Docusate 100mg/10ml Liq GT SCH ×2 (09:01→18:09)
[2019-05-21] MEDS: Carvedilol 6.25mg Tab GT SCH ×2 (09:02→21:38)
[2019-05-21] MEDS: Pantoprazole Inj IV SCH (09:02)
[2019-05-21] MEDS: Heparin 5000 units/ml inj SUBQ SCH ×2 (09:03→21:40)
[2019-05-21 11:57] VITALS: BP 124/81
--- NOTE | 2019-05-21 13:22 | NUR ---
CASE MANAGEMENT: REVIEW 05/20/19 SI:SEPSIS . UTI. SUPRAPUBIC CATHETER DYSFUNCTION . RENAL STONE 98.2 66 23 129/93 98% ON RA H/H 11.3/33.5 CL- 110 BUN 24 BG 123 BNP 603 IS:IV MEROPENEM Q8HR HEPARIN SQ BID COREG GT BID IV PROTONIX BID IV KCL Q8HR \: 2W STEP DOWN UNIT PLAN: CONT IV ABX CASE MANAGEMENT: REVIEW 05/21/19 SI:SEPSIS . UTI. SUPRAPUBIC CATHETER DYSFUNCTION . RENAL STONE 97.5 74 20 130/82 97% ON RA CL- 108 BUN 20 H/H 12.3/37.1 ESR 51 IS:IV MEROPENEM Q8HR HEPARIN SQ BID COREG GT BID IV PROTONIX BID IV KCL @50ML/HR \: 2W STEP DOWN UNIT PLAN: UROLOGY TO CHECK LEAK OF SUPRAPUBIC CATH
--- NOTE | 2019-05-21 13:24 | Nephrology Progress Note ---
Assessment/Plan Problem List: (1) Renal failure (ARF), acute on chronic (2) UTI (urinary tract infection) (3) Suprapubic catheter Assessment acute renal failure UTI SupraPubic Cath Dysfunction leakage Plan Nepro for feeding lower Hydrate kidneyUTZ No obstructive nephropathy. Bilateral renal cysts. Nonobstructive stones in the left kidney. skin care monitor renal parameters per orders Subjective ROS Limited/Unobtainable: No Constitutional: Reports: malaise Objective Objective Last 24 Hour Vital Signs Date Time Temp Pulse Resp B/P (MAP) Pulse Ox O2 Delivery O2 Flow Rate FiO2 05/21/19 12:00 Room Air 05/21/19 12:00 78 05/21/19 11:57 98.1 69 20 124/81 (95) 97 05/21/19 09:02 67 130/82 05/21/19 08:00 67 05/21/19 08:00 Room Air 05/21/19 08:00 97.5 74 20 130/82 (98) 97 05/21/19 04:00 78 05/21/19 04:00 97.5 67 20 115/77 (90) 99 05/21/19 04:00 Room Air 05/21/19 00:12 75 05/21/19 00:00 97.7 79 20 130/83 (99) 97 05/21/19 00:00 Room Air 05/20/19 21:32 81 148/91 05/20/19 20:00 81 05/20/19 20:00 98.1 88 20 148/91 (110) 98 05/20/19 20:00 Room Air 05/20/19 19:06 97 18 97 Room Air 21 05/20/19 16:00 Room Air 05/20/19 16:00 97.9 67 23 136/92 (107) 98 05/20/19 15:28 77 Intake and Output 05/20/19 05/21/19 19:00 07:00 Intake Total 1257.917 ml 915 ml Output Total 150 ml Balance 1257.917 ml 765 ml Free Water 60 ml 100 ml IV Total 777.917 ml 455 ml Tube Feeding 360 ml 360 ml Other 60 ml Output Urine Total 150 ml # Voids 4 1 # Bowel Movements 3 Laboratory Tests 05/21/19 03:19: White Blood Count 6.4, Red Blood Count 4.41L, Hemoglobin 12.3L, Hematocrit 37.1L , Mean Corpuscular Volume 84, Mean Corpuscular Hemoglobin 27.9, Mean Corpuscular Hemoglobin Concent 33.2, Red Cell Distribution Width 14.4, Platelet Count 226, Mean Platelet Volume 7.8, Neutrophils (%) (Auto) 46.9, Lymphocytes (% ) (Auto) 38.2, Monocytes (%) (Auto) 8.8, Eosinophils (%) (Auto) 5.2H, Basophils (%) (Auto) 0.9, Erythrocyte Sedimentation Rate 51H, Sodium Level 144, Potassium Level 3.8, Chloride Level 108H, Carbon Dioxide Level 27, Anion Gap 9, Blood Urea Nitrogen 20H, Creatinine 0.9, Estimat Glomerular Filtration Rate > 60, Glucose Level 102, Calcium Level 8.8, Phosphorus Level 3.2, Magnesium Level 1.8 , Total Bilirubin 0.2, Aspartate Amino Transf (AST/SGOT) 15, Alanine Aminotransferase (ALT/SGPT) 12, Alkaline Phosphatase 59, C-Reactive Protein, Quantitative 6.0H, Total Protein 7.8, Albumin 2.4L, Globulin 5.4, Albumin/ Globulin Ratio 0.4L Height (Feet): 5 Height (Inches): 10.00 Weight (Pounds): 226 Cardiovascular: normal rate Respiratory/Chest: decreased breath sounds Abdomen: distended Pranav Grady MD May 21, 2019 13:24
--- NOTE | 2019-05-21 13:45 | NUR ---
NURSE NOTES: pt resting, no co pain, repositioned, tolerate feeding well, continue monitoring.
--- NOTE | 2019-05-21 14:29 | General Progress Note ---
Assessment/Plan Problem List: (1) UTI (urinary tract infection) ICD Codes: N39.0 - Urinary tract infection, site not specified SNOMED: 41704236 (2) Sepsis ICD Codes: A41.9 - Sepsis, unspecified organism SNOMED: 08158642 (3) Suprapubic catheter dysfunction ICD Codes: T83.010A - Breakdown (mechanical) of cystostomy catheter, initial encounter SNOMED: 580795956 (4) Decubitus skin ulcer ICD Codes: L89.90 - Pressure ulcer of unspecified site, unspecified stage SNOMED: 387147503 (5) History of DVT (deep vein thrombosis) ICD Codes: Z86.718 - Personal history of other venous thrombosis and embolism SNOMED: 512229735 (6) Aphasia ICD Codes: R47.01 - Aphasia SNOMED: 92152864 (7) Diabetes mellitus ICD Codes: E11.9 - Type 2 diabetes mellitus without complications SNOMED: 86626143 (8) Obstructive hydrocephalus ICD Codes: G91.1 - Obstructive hydrocephalus SNOMED: 274556779 (9) Renal failure (ARF), acute on chronic ICD Codes: N17.9 - Acute kidney failure, unspecified; N18.9 - Chronic kidney disease, unspecified SNOMED: 318417676 (10) History of CVA (cerebrovascular accident) ICD Codes: Z86.73 - Personal history of transient ischemic attack (TIA), and cerebral infarction without residual deficits SNOMED: 498489601 (11) Encephalopathy chronic ICD Codes: G93.49 - Other encephalopathy SNOMED: 88252289 Status: stable, progressing Assessment/Plan: pt diet abx uro eval cbc bmp am dc plan if clear id and uro Subjective Constitutional: Reports: weakness Allergies: Coded Allergies: VANCOMYCIN (Verified Allergy, Mild, Redness , 10/29/18) CIPROFLOXACIN (Verified Allergy, Unknown, 08/23/15) All Systems: reviewed and negative except above Subjective sleepy calm Objective Last 24 Hour Vital Signs Date Time Temp Pulse Resp B/P (MAP) Pulse Ox O2 Delivery O2 Flow Rate FiO2 05/21/19 12:00 Room Air 05/21/19 12:00 78 05/21/19 11:57 98.1 69 20 124/81 (95) 97 05/21/19 09:02 67 130/82 05/21/19 08:00 67 05/21/19 08:00 Room Air 05/21/19 08:00 97.5 74 20 130/82 (98) 97 05/21/19 04:00 78 05/21/19 04:00 97.5 67 20 115/77 (90) 99 05/21/19 04:00 Room Air 05/21/19 00:12 75 05/21/19 00:00 97.7 79 20 130/83 (99) 97 05/21/19 00:00 Room Air 05/20/19 21:32 81 148/91 05/20/19 20:00 81 05/20/19 20:00 98.1 88 20 148/91 (110) 98 05/20/19 20:00 Room Air 05/20/19 19:06 97 18 97 Room Air 21 05/20/19 16:00 Room Air 05/20/19 16:00 97.9 67 23 136/92 (107) 98 05/20/19 15:28 77 Intake and Output 05/20/19 05/21/19 19:00 07:00 Intake Total 1257.917 ml 915 ml Output Total 150 ml Balance 1257.917 ml 765 ml Free Water 60 ml 100 ml IV Total 777.917 ml 455 ml Tube Feeding 360 ml 360 ml Other 60 ml Output Urine Total 150 ml # Voids 4 1 # Bowel Movements 3 Laboratory Tests 05/21/19 03:19: White Blood Count 6.4, Red Blood Count 4.41L, Hemoglobin 12.3L, Hematocrit 37.1L , Mean Corpuscular Volume 84, Mean Corpuscular Hemoglobin 27.9, Mean Corpuscular Hemoglobin Concent 33.2, Red Cell Distribution Width 14.4, Platelet Count 226, Mean Platelet Volume 7.8, Neutrophils (%) (Auto) 46.9, Lymphocytes (% ) (Auto) 38.2, Monocytes (%) (Auto) 8.8, Eosinophils (%) (Auto) 5.2H, Basophils (%) (Auto) 0.9, Erythrocyte Sedimentation Rate 51H, Sodium Level 144, Potassium Level 3.8, Chloride Level 108H, Carbon Dioxide Level 27, Anion Gap 9, Blood Urea Nitrogen 20H, Creatinine 0.9, Estimat Glomerular Filtration Rate > 60, Glucose Level 102, Calcium Level 8.8, Phosphorus Level 3.2, Magnesium Level 1.8 , Total Bilirubin 0.2, Aspartate Amino Transf (AST/SGOT) 15, Alanine Aminotransferase (ALT/SGPT) 12, Alkaline Phosphatase 59, C-Reactive Protein, Quantitative 6.0H, Total Protein 7.8, Albumin 2.4L, Globulin 5.4, Albumin/ Globulin Ratio 0.4L Height (Feet): 5 Height (Inches): 10.00 Weight (Pounds): 226 General Appearance: lethargic EENT: normal ENT inspection Neck: normal alignment Cardiovascular: normal peripheral pulses, normal rate, regular rhythm Respiratory/Chest: chest wall non-tender, lungs clear, normal breath sounds Abdomen: normal bowel sounds, non tender, soft Extremities: normal inspection Edema: no edema noted Arm (L), no edema noted Arm (R), no edema noted Leg (L), no edema noted Leg (R), no edema noted Pedal (L), no edema noted Pedal (R), no edema noted Generalized Neurologic: motor weakness Skin: normal pigmentation, warm/dry Jaylen Bear DO May 21, 2019 14:29
--- NOTE | 2019-05-21 15:25 | NUR ---
*-*DISCHARGE PLANNING*-* PATIENT HAS BEEN REFERRED TO: [facility] P: [phone] F: [phone]
[2019-05-21 15:54] VITALS: BP 131/86
[2019-05-21] MEDS ORDERED: Acetaminophen 650mg/20.3ml GT PRN (17:30)
[2019-05-21] MEDS ORDERED: Miralax 17gm pkt GT PRN (17:30)
--- NOTE | 2019-05-21 17:37 | Infectious Diseases Prog Note ---
Assessment/Plan Assessment/Plan Assessment: Severe Sepsis UTI Proteus bacteremia Obstructive uropathy -05/18 sp cx normal resp joão , P mirbailis(R amp, bactrim ancef; I ceftriaxone ; colonizer), no PNA on CXR -u/a wbc 40-60, nit neg, leuk +3; Ucx >100k M. morganii (R amp, Ancef, cipro, bactrim; I Levaquin; otherwise S) -05/17 Bcx 07/11 P. mirabilis, probable AmpC (S Zosyn, Meropenem) CXR: Reduced lung volumes with accentuation of bronchovascular markings. CT abd/p: Cholelithiasis. Bilateral nephrolithiasis. Stones in the bilateral renal pelvises and proximal ureters. 5-6 mm stone in the left mid ureter. Mild-moderate obstructive changes. Fever; SP Leukocytosis; SP GILDARDO, improving -Renal US: No obstructive nephropathy. Bilateral renal cysts. Nonobstructive stones in the left kidney. Suprapubic catheter hx of Recurrent malfunctioning R nephrostomy tube -01/21/19 SP removal: Patent right ureter, without evidence of residual ureteral stone disease.Nephrostomy therefore no longer necessary, was removed -01/21/19 Renal US: Limited exam, with only visualization of the right kidney. Negative for right hydronephrosis. Echogenic right renal foci, may represent calculi or the patient's nephrostomy tube, favor the latter. -01/2019 u/a wbc 10-15, nit +, leuk +3; ucx >100k P. 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 Will continue to follow along with you. Discussed with RN Subjective Allergies: Coded Allergies: VANCOMYCIN (Verified Allergy, Mild, Redness , 10/29/18) CIPROFLOXACIN (Verified Allergy, Unknown, 08/23/15) Subjective afebrile >72hrs no leukocytosis Objective Vital Signs Last 24 Hour Vital Signs Date Time Temp Pulse Resp B/P (MAP) Pulse Ox O2 Delivery O2 Flow Rate FiO2 05/21/19 16:00 70 05/21/19 16:00 Room Air 05/21/19 15:54 97.7 68 20 131/86 (101) 92 05/21/19 12:00 Room Air 05/21/19 12:00 78 05/21/19 11:57 98.1 69 20 124/81 (95) 97 05/21/19 09:02 67 130/82 05/21/19 08:00 67 05/21/19 08:00 Room Air 05/21/19 08:00 97.5 74 20 130/82 (98) 97 05/21/19 04:00 78 05/21/19 04:00 97.5 67 20 115/77 (90) 99 05/21/19 04:00 Room Air 05/21/19 00:12 75 05/21/19 00:00 97.7 79 20 130/83 (99) 97 05/21/19 00:00 Room Air 05/20/19 21:32 81 148/91 05/20/19 20:00 81 05/20/19 20:00 98.1 88 20 148/91 (110) 98 05/20/19 20:00 Room Air 05/20/19 19:06 97 18 97 Room Air 21 Height (Feet): 5 Height (Inches): 10.00 Weight (Pounds): 226 Objective GENERAL: no distress CARDIOVASCULAR: No murmur. S1, S2 normal LUNGS: decreased breath sounds at bases ABDOMEN: non tender EXTREMITIES: No cyanosis, clubbing, or edema. Laboratory Tests Test 05/21/19 03:19 White Blood Count 6.4 K/UL (4.8-10.8) Red Blood Count 4.41 M/UL (4.70-6.10) L Hemoglobin 12.3 G/DL (14.2-18.0) L Hematocrit 37.1 % (42.0-52.0) L Mean Corpuscular Volume 84 FL (80-99) Mean Corpuscular Hemoglobin 27.9 PG (27.0-31.0) Mean Corpuscular Hemoglobin Concent 33.2 G/DL (32.0-36.0) Red Cell Distribution Width 14.4 % (11.6-14.8) Platelet Count 226 K/UL (150-450) Mean Platelet Volume 7.8 FL (6.5-10.1) Neutrophils (%) (Auto) 46.9 % (45.0-75.0) Lymphocytes (%) (Auto) 38.2 % (20.0-45.0) Monocytes (%) (Auto) 8.8 % (1.0-10.0) Eosinophils (%) (Auto) 5.2 % (0.0-3.0) H Basophils (%) (Auto) 0.9 % (0.0-2.0) Erythrocyte Sedimentation Rate 51 MM/HR (0-20) H Sodium Level 144 MMOL/L (136-145) Potassium Level 3.8 MMOL/L (3.5-5.1) Chloride Level 108 MMOL/L (98-107) H Carbon Dioxide Level 27 MMOL/L (21-32) Anion Gap 9 mmol/L (5-15) Blood Urea Nitrogen 20 mg/dL (7-18) H Creatinine 0.9 MG/DL (0.55-1.30) Estimat Glomerular Filtration Rate > 60 mL/min (>60) Glucose Level 102 MG/DL (74-106) Calcium Level 8.8 MG/DL (8.5-10.1) Phosphorus Level 3.2 MG/DL (2.5-4.9) Magnesium Level 1.8 MG/DL (1.8-2.4) Total Bilirubin 0.2 MG/DL (0.2-1.0) Aspartate Amino Transf (AST/SGOT) 15 U/L (15-37) Alanine Aminotransferase (ALT/SGPT) 12 U/L (12-78) Alkaline Phosphatase 59 U/L (46-116) C-Reactive Protein, Quantitative 6.0 mg/dL (0.00-0.90) H Total Protein 7.8 G/DL (6.4-8.2) Albumin 2.4 G/DL (3.4-5.0) L Globulin 5.4 g/dL Albumin/Globulin Ratio 0.4 (1.0-2.7) L Current Medications Medications (Trade) Dose Ordered Sig/Fab Route PRN Reason Start Time Stop Time Status Last Admin Dose Admin Acetaminophen (Tylenol) 650 mg Q4H PRN GT FEVER 05/21/19 17:30 06/20/19 17:29 Albuterol/ Ipratropium (Albuterol/ Ipratropium) 3 ml Q4H PRN HHN Shortness of Breath 05/17/19 17:30 05/22/19 17:29 Carvedilol (Coreg) 6.25 mg EVERY 12 HOURS GT 05/17/19 21:00 06/16/19 20:59 05/21/19 09:02 Dextrose (Dextrose 50%) 25 ml Q30M PRN IV Hypoglycemia 05/17/19 17:30 06/16/19 17:29 Dextrose (Dextrose 50%) 50 ml Q30M PRN IV Hypoglycemia 05/17/19 17:30 06/16/19 17:29 Docusate Sodium (Colace) 100 mg BID GT 05/18/19 18:00 06/17/19 17:59 05/21/19 09:01 Heparin Sodium (Porcine) (Heparin 5000 units/ml) 5,000 units EVERY 12 HOURS SUBQ 05/17/19 21:00 06/16/19 20:59 05/21/19 09:03 Lansoprazole (Prevacid) 30 mg BID GT 05/21/19 18:00 06/20/19 17:59 Meropenem 1 gm/ Sodium Chloride 55 ml @ 110 mls/hr Q8HR IVPB 05/19/19 12:30 05/24/19 12:29 05/21/19 14:08 Ondansetron HCl (Zofran) 4 mg Q6H PRN IVP Nausea & Vomiting 05/17/19 17:30 06/16/19 17:29 Polyethylene Glycol (Miralax) 17 gm DAILYPRN PRN GT Constipation 05/21/19 17:30 06/16/19 17:29 Potassium Chloride 10 meq/ Dextrose/Sodium Chloride 1,005 ml @ 50 mls/hr Q20H6M IV 05/20/19 09:00 06/17/19 08:59 05/21/19 06:12 Dorothea Macario M.D. May 21, 2019 17:37
--- NOTE | 2019-05-21 19:12 | NUR ---
HAND-OFF: Report given to CLAUDE CHRISTOPHER, no distress at this time.
--- NOTE | 2019-05-21 19:20 | NUR ---
NURSE NOTES: Received pt from Jenna Rodriguez RN. pt is observed resting in bed, eyes open, able to respond to simple commands, denies pain at this time. pt is on room air, tolerating well; no s/sx of respiratory distress noted at this time. quality assurance monitor chassis shows SR with current HR of 75; no acute cardiac distress noted. G-tube site is patent and intact, running Nepro at 30 cc/hr. HOB elevated to 45 degrees, no residual noted. suprapubic catheter noted to be leaking; MDs aware. RFA 20 g IV site is patent and intact, running D5 1/2 NS with 10 meq KCl at 50 cc/hr. LAC 20 g IV site is patent and intact, asymptomatic. bed in lowest position and locked, padded siderails up X3, call light within reach. will continue to monitor.
[2019-05-21 20:00] VITALS: BP 135/85
[2019-05-22] VITALS: BP 126/72
[2019-05-22] MEDS: Potassium Chloride 10 MEQ in D5 1/2NS 1,000 ML IV SCH ×2 (01:50→21:48)
[2019-05-22 04:00] VITALS: BP 154/74
[2019-05-22] MEDS: Meropenem 1 GM in NS 55 ML IVPB SCH ×3 (06:02→21:42)
--- NOTE | 2019-05-22 07:56 | NUR ---
HAND-OFF: Report given to Jenna Rodriguez RN. pt is in stable condition.
[2019-05-22 08:00] VITALS: BP 126/77
--- NOTE | 2019-05-22 08:00 | NUR ---
NURSE NOTES: received pt in the bed, awake, confused, vital signs stable, no co pain, no SOB, skin warm and dry to touch, tolerate GT feeding well, Nepro 30cc, suprapubic catheter changed by dr. Funk, bed in low position, call light within reach, HOB elevated.
[2019-05-22] MEDS: Docusate 100mg/10ml Liq GT SCH ×2 (08:25→17:24)
[2019-05-22] MEDS: Carvedilol 6.25mg Tab GT SCH ×2 (08:26→21:44)
[2019-05-22] MEDS: Heparin 5000 units/ml inj SUBQ SCH ×2 (08:28→21:47)
[2019-05-22 08:33] LABS: BASOPHILS % (AUTO) 1.6 % (0.0-2.0); EOSINOPHILS % (AUTO) 5.6 % (0.0-3.0); HEMATOCRIT 36.7 % (42.0-52.0); HEMOGLOBIN 12.1 G/DL (14.2-18.0); LYMPHOCYTES % (AUTO) 30.6 % (20.0-45.0); MEAN CORPUSCULAR VOLUME 84 FL (80-99); MONOCYTES % (AUTO) 8.7 % (1.0-10.0); NEUTROPHILS % (AUTO) 53.5 % (45.0-75.0); PLATELET COUNT 260 K/UL (150-450); RED BLOOD COUNT 4.39 M/UL (4.70-6.10); RED CELL DISTRIBUTION WIDTH 14.3 % (11.6-14.8); WHITE BLOOD COUNT 8.5 K/UL (4.8-10.8)
[2019-05-22 08:51] LABS: ANION GAP 9 mmol/L (5-15); BLOOD UREA NITROGEN 17 mg/dL (7-18); CALCIUM 9.1 MG/DL (8.5-10.1); CARBON DIOXIDE 27 MMOL/L (21-32); CHLORIDE 106 MMOL/L (98-107); CREATININE 0.9 MG/DL (0.55-1.30); POTASSIUM 3.6 MMOL/L (3.5-5.1); SODIUM 142 MMOL/L (136-145)
--- NOTE | 2019-05-22 09:50 | NUR ---
CASE MANAGEMENT: REVIEW 05/22/19 SI:SEPSIS . UTI. SUPRAPUBIC CATHETER DYSFUNCTION . RENAL STONE 97.9 64 20 126/77 98% ON RA H/H 12.1/36.7 BG 124 IS:IV MEROPENEM Q8HR HEPARIN SQ BID COREG GT BID IV PROTONIX BID IV KCL @50ML/HR \: 2W STEP DOWN UNIT PLAN: UROLOGY EXAM COMPLETE- MD CHANGED SUP. CATH ID CLEARED PATIENT- COLONIZED VRE AND MRSA
--- NOTE | 2019-05-22 10:49 | Infectious Diseases Prog Note ---
Assessment/Plan Assessment/Plan Assessment: Severe Sepsis UTI Proteus bacteremia Obstructive uropathy -05/22 SP Suprapubic catheter exchange -05/18 sp cx normal resp joão , P mirabilis(R amp, bactrim ancef; I ceftriaxone ; colonizer), no PNA on CXR -u/a wbc 40-60, nit neg, leuk +3; Ucx >100k M. morganii (R amp, Ancef, cipro, bactrim; I Levaquin; otherwise S) -05/17 Bcx 07/11 P. mirabilis, probable AmpC (S Zosyn, Meropenem); 05/21 Bcx CXR: Reduced lung volumes with accentuation of bronchovascular markings. CT abd/p: Cholelithiasis. Bilateral nephrolithiasis. Stones in the bilateral renal pelvises and proximal ureters. 5-6 mm stone in the left mid ureter. Mild-moderate obstructive changes. Fever; SP Leukocytosis; SP GILDARDO, SP -Renal US: No obstructive nephropathy. Bilateral renal cysts. Nonobstructive stones in the left kidney. Suprapubic catheter hx of Recurrent malfunctioning R nephrostomy tube -01/21/19 SP removal: Patent right ureter, without evidence of residual ureteral stone disease.Nephrostomy therefore no longer necessary, was removed -01/21/19 Renal US: Limited exam, with only visualization of the right kidney. Negative for right hydronephrosis. Echogenic right renal foci, may represent calculi or the patient's nephrostomy tube, favor the latter. -01/2019 u/a wbc 10-15, nit +, leuk +3; ucx >100k P. 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 Will continue to follow along with you. Discussed with RN Subjective Allergies: Coded Allergies: VANCOMYCIN (Verified Allergy, Mild, Redness , 10/29/18) CIPROFLOXACIN (Verified Allergy, Unknown, 08/23/15) Subjective afebrile no leukocytosis suprapubic catheter changed by urology Objective Vital Signs Last 24 Hour Vital Signs Date Time Temp Pulse Resp B/P (MAP) Pulse Ox O2 Delivery O2 Flow Rate FiO2 05/22/19 08:26 71 126/77 05/22/19 08:00 72 05/22/19 08:00 Room Air 05/22/19 08:00 97.9 64 20 126/77 (93) 98 05/22/19 04:00 Room Air 05/22/19 04:00 80 05/22/19 04:00 97.6 79 20 154/74 (100) 99 05/22/19 02:42 72 18 96 Room Air 21 05/22/19 00:00 Room Air 05/22/19 00:00 97.8 69 20 126/72 (90) 99 05/22/19 00:00 73 05/21/19 21:38 70 135/85 05/21/19 20:00 98.7 70 20 135/85 (102) 99 05/21/19 20:00 Room Air 05/21/19 19:02 84 05/21/19 16:00 70 05/21/19 16:00 Room Air 05/21/19 15:54 97.7 68 20 131/86 (101) 92 05/21/19 12:00 Room Air 05/21/19 12:00 78 05/21/19 11:57 98.1 69 20 124/81 (95) 97 Height (Feet): 5 Height (Inches): 10.00 Weight (Pounds): 226 Objective GENERAL: no distress CARDIOVASCULAR: No murmur. S1, S2 normal LUNGS: decreased breath sounds at bases ABDOMEN: non tender EXTREMITIES: No cyanosis, clubbing, or edema. Laboratory Tests Test 05/22/19 08:05 White Blood Count 8.5 K/UL (4.8-10.8) Red Blood Count 4.39 M/UL (4.70-6.10) L Hemoglobin 12.1 G/DL (14.2-18.0) L Hematocrit 36.7 % (42.0-52.0) L Mean Corpuscular Volume 84 FL (80-99) Mean Corpuscular Hemoglobin 27.6 PG (27.0-31.0) Mean Corpuscular Hemoglobin Concent 33.0 G/DL (32.0-36.0) Red Cell Distribution Width 14.3 % (11.6-14.8) Platelet Count 260 K/UL (150-450) Mean Platelet Volume 7.7 FL (6.5-10.1) Neutrophils (%) (Auto) 53.5 % (45.0-75.0) Lymphocytes (%) (Auto) 30.6 % (20.0-45.0) Monocytes (%) (Auto) 8.7 % (1.0-10.0) Eosinophils (%) (Auto) 5.6 % (0.0-3.0) H Basophils (%) (Auto) 1.6 % (0.0-2.0) Sodium Level 142 MMOL/L (136-145) Potassium Level 3.6 MMOL/L (3.5-5.1) Chloride Level 106 MMOL/L (98-107) Carbon Dioxide Level 27 MMOL/L (21-32) Anion Gap 9 mmol/L (5-15) Blood Urea Nitrogen 17 mg/dL (7-18) Creatinine 0.9 MG/DL (0.55-1.30) Estimat Glomerular Filtration Rate > 60 mL/min (>60) Glucose Level 124 MG/DL (74-106) H Calcium Level 9.1 MG/DL (8.5-10.1) Current Medications Medications (Trade) Dose Ordered Sig/Fab Route PRN Reason Start Time Stop Time Status Last Admin Dose Admin Acetaminophen (Tylenol) 650 mg Q4H PRN GT FEVER 05/21/19 17:30 06/20/19 17:29 Albuterol/ Ipratropium (Albuterol/ Ipratropium) 3 ml Q4H PRN HHN Shortness of Breath 05/17/19 17:30 05/22/19 17:29 Carvedilol (Coreg) 6.25 mg EVERY 12 HOURS GT 05/17/19 21:00 06/16/19 20:59 05/22/19 08:26 Dextrose (Dextrose 50%) 25 ml Q30M PRN IV Hypoglycemia 05/17/19 17:30 06/16/19 17:29 Dextrose (Dextrose 50%) 50 ml Q30M PRN IV Hypoglycemia 05/17/19 17:30 06/16/19 17:29 Docusate Sodium (Colace) 100 mg BID GT 05/18/19 18:00 06/17/19 17:59 05/22/19 08:25 Heparin Sodium (Porcine) (Heparin 5000 units/ml) 5,000 units EVERY 12 HOURS SUBQ 05/17/19 21:00 06/16/19 20:59 05/22/19 08:28 Lansoprazole (Prevacid) 30 mg BID GT 05/21/19 18:00 06/20/19 17:59 05/22/19 08:25 Meropenem 1 gm/ Sodium Chloride 55 ml @ 110 mls/hr Q8HR IVPB 05/19/19 12:30 05/24/19 12:29 05/22/19 06:02 Ondansetron HCl (Zofran) 4 mg Q6H PRN IVP Nausea & Vomiting 05/17/19 17:30 06/16/19 17:29 Polyethylene Glycol (Miralax) 17 gm DAILYPRN PRN GT Constipation 05/21/19 17:30 06/16/19 17:29 Potassium Chloride 10 meq/ Dextrose/Sodium Chloride 1,005 ml @ 50 mls/hr Q20H6M IV 05/20/19 09:00 06/17/19 08:59 05/22/19 01:50 Dorothea Macario M.D. May 22, 2019 10:49
--- NOTE | 2019-05-22 11:12 | Nephrology Progress Note ---
Assessment/Plan Problem List: (1) Renal failure (ARF), acute on chronic (2) UTI (urinary tract infection) (3) Suprapubic catheter Assessment acute renal failure UTI SupraPubic Cath Dysfunction leakage Plan Nepro for feeding lower Hydrate kidneyUTZ No obstructive nephropathy. Bilateral renal cysts. Nonobstructive stones in the left kidney. skin care monitor renal parameters per orders Subjective ROS Limited/Unobtainable: No Constitutional: Reports: malaise Objective Objective Last 24 Hour Vital Signs Date Time Temp Pulse Resp B/P (MAP) Pulse Ox O2 Delivery O2 Flow Rate FiO2 05/22/19 08:26 71 126/77 05/22/19 08:00 72 05/22/19 08:00 Room Air 05/22/19 08:00 97.9 64 20 126/77 (93) 98 05/22/19 04:00 Room Air 05/22/19 04:00 80 05/22/19 04:00 97.6 79 20 154/74 (100) 99 05/22/19 02:42 72 18 96 Room Air 21 05/22/19 00:00 Room Air 05/22/19 00:00 97.8 69 20 126/72 (90) 99 05/22/19 00:00 73 05/21/19 21:38 70 135/85 05/21/19 20:00 98.7 70 20 135/85 (102) 99 05/21/19 20:00 Room Air 05/21/19 19:02 84 05/21/19 16:00 70 05/21/19 16:00 Room Air 05/21/19 15:54 97.7 68 20 131/86 (101) 92 05/21/19 12:00 Room Air 05/21/19 12:00 78 05/21/19 11:57 98.1 69 20 124/81 (95) 97 Intake and Output 05/21/19 05/22/19 19:00 07:00 Intake Total 1115 ml 1128.333 ml Balance 1115 ml 1128.333 ml Free Water 150 ml 100 ml IV Total 605 ml 668.333 ml Tube Feeding 360 ml 360 ml # Voids 4 2 Laboratory Tests 05/22/19 08:05: White Blood Count 8.5, Red Blood Count 4.39L, Hemoglobin 12.1L, Hematocrit 36.7L , Mean Corpuscular Volume 84, Mean Corpuscular Hemoglobin 27.6, Mean Corpuscular Hemoglobin Concent 33.0, Red Cell Distribution Width 14.3, Platelet Count 260, Mean Platelet Volume 7.7, Neutrophils (%) (Auto) 53.5, Lymphocytes (% ) (Auto) 30.6, Monocytes (%) (Auto) 8.7, Eosinophils (%) (Auto) 5.6H, Basophils (%) (Auto) 1.6, Sodium Level 142, Potassium Level 3.6, Chloride Level 106, Carbon Dioxide Level 27, Anion Gap 9, Blood Urea Nitrogen 17, Creatinine 0.9, Estimat Glomerular Filtration Rate > 60, Glucose Level 124H, Calcium Level 9.1 Height (Feet): 5 Height (Inches): 10.00 Weight (Pounds): 226 General Appearance: no apparent distress Objective no change Pranav Grady MD May 22, 2019 11:12
[2019-05-22 12:00] VITALS: BP 116/75
--- NOTE | 2019-05-22 14:26 | NUR ---
NURSE NOTES: no distress at this time, repositioned, tolerate feeding well, continue monitoring.
[2019-05-22] MEDS ORDERED: Lidocaine 1% Plain 30 ml INJ PRN (15:09)
[2019-05-22] MEDS ORDERED: Heparin1,000 units/500ml Premix(Conc:2 units/ml) INJ PRN (15:15)
--- NOTE | 2019-05-22 15:30 | Consultation ---
DATE OF CONSULTATION: 05/22/2019 REASON FOR CONSULTATION: Leaking suprapubic tube. HISTORY OF PRESENT ILLNESS: The patient is bedridden gentleman with chronic suprapubic tube. The catheter was not functioning for several days creating lot of leakage around the catheter that was the reason for consultation. REVIEW OF SYMPTOMS: Not done. The patient is not verbal. PHYSICAL EXAMINATION: VITAL SIGNS: The patient is afebrile. Vital signs are stable. LUNGS: Clear to auscultation. CARDIOVASCULAR: Regular rate and rhythm. ABDOMEN: Soft, nontender. GENITOURINARY: Suprapubic tube in place. Leaking urine around the suprapubic tube, wetting several towels. Scrotal exam is normal. PROCEDURE: Old suprapubic catheter was removed after the balloon was deflated. An 18-[place] Kenny catheter was placed into the suprapubic channel without any difficulty. Clear yellow urine was expressed. The wound was filled with 10 mL with water and the suprapubic tube was left indwelling. The patient's dressing was changed. He will be able to be transferred to his nursing facility where he resides at any time. Will Funk M.D. DR: Edis JOB#: [id number] CC:
[2019-05-22 16:00] VITALS: BP 148/92
--- NOTE | 2019-05-22 16:24 | NUR ---
RADIOLOGY NOTE: LEFT UPPER EXTREMITY PICC LINE PLACEMENT BY DR. ANN MARIE LA AT 1525 HRS. FA
--- NOTE | 2019-05-22 16:26 | Diagnostic Imaging Report ---
Indications: Needs long-term IV access Technique: Procedure performed at bedside. Procedural timeout performed. Ultrasound confirms patent compressible left basilic vein. Total sterile technique, including sterile probe cover and sterile gel, sterile gloves, hand hygiene, hat, mask,, sterile gown, large sterile drape, and preparation with 2% chlorhexidine utilized. Local anesthesia with 1% lidocaine. Under real-time ultrasound guidance, puncture left basilic vein using 21-gauge needle, passage 0.018 guidewire, exchange for 4 Libyan peel-away sheath. 4 [place] Bard dual-lumen power PICC cut to 51 cm. It was inserted through the peel-away sheath. Peel-away sheath and guidewire removed. Catheter fixed to the skin. Both catheter ports aspirated and flushed. Patient tolerated procedure well, without immediate complication. Followup chest x-ray obtained, documents catheter tip position at the cavoatrial junction Impression: Successful bedside placement of left arm PICC under sonographic guidance, as described above.
--- NOTE | 2019-05-22 18:30 | NUR ---
NURSE NOTES: GT malfunction, dr. Faust changed GT, PIIC line on left upper arm inserted, OK to use.
--- NOTE | 2019-05-22 19:20 | NUR ---
HAND-OFF: Report given to LISA RN, no distress at this time..
--- NOTE | 2019-05-22 19:21 | NUR ---
NURSE NOTES: received pt from Clover Yan RN., pt is awake and AO x1, pt is in RA and O2sat is at 98%. pt states no pain at this moment. no SOB and no respiratory distress noted at this moment. suprapubic catheter noted draining well with gravity. left upper arm PICC line noted, dressing site intact, clean, and dry. Gtube site intact, clean, and patent. nephro 1.8 is running at 30cc/hr no residual noted. flushes well with water. call light within reach. bed at the lowest position, alarmed, and locked. will continue to monitor pt with plan of care.
[2019-05-22 20:00] VITALS: BP 143/86
--- NOTE | 2019-05-22 20:37 | Cardiology Progress Note ---
Assessment/Plan Assessment/Plan gnr bacteremia arf tachycardia volume depletion uri renal stones seem better hr and bp are better on ivabx awake and responsive lab noted egk note tele sinus not tachy renal function is better will see prn only Subjective ROS Limited/Unobtainable: Yes Objective Last 24 Hour Vital Signs Date Time Temp Pulse Resp B/P (MAP) Pulse Ox O2 Delivery O2 Flow Rate FiO2 05/22/19 16:00 63 05/22/19 16:00 Room Air 05/22/19 16:00 98.0 79 20 148/92 (110) 98 05/22/19 12:00 Room Air 05/22/19 12:00 66 05/22/19 12:00 97.8 63 18 116/75 (89) 100 05/22/19 08:26 71 126/77 05/22/19 08:00 72 05/22/19 08:00 Room Air 05/22/19 08:00 97.9 64 20 126/77 (93) 98 05/22/19 04:00 Room Air 05/22/19 04:00 80 05/22/19 04:00 97.6 79 20 154/74 (100) 99 05/22/19 02:42 72 18 96 Room Air 21 05/22/19 00:00 Room Air 05/22/19 00:00 97.8 69 20 126/72 (90) 99 05/22/19 00:00 73 05/21/19 21:38 70 135/85 General Appearance: no apparent distress, alert Cardiovascular: normal rate Respiratory/Chest: lungs clear Abdomen: normal bowel sounds, non tender, soft Extremities: no swelling Intake and Output 05/21/19 05/22/19 19:00 07:00 Intake Total 1115 ml 1128.333 ml Balance 1115 ml 1128.333 ml Free Water 150 ml 100 ml IV Total 605 ml 668.333 ml Tube Feeding 360 ml 360 ml # Voids 4 2 Laboratory Tests Test 05/22/19 08:05 White Blood Count 8.5 K/UL (4.8-10.8) Red Blood Count 4.39 M/UL (4.70-6.10) L Hemoglobin 12.1 G/DL (14.2-18.0) L Hematocrit 36.7 % (42.0-52.0) L Mean Corpuscular Volume 84 FL (80-99) Mean Corpuscular Hemoglobin 27.6 PG (27.0-31.0) Mean Corpuscular Hemoglobin Concent 33.0 G/DL (32.0-36.0) Red Cell Distribution Width 14.3 % (11.6-14.8) Platelet Count 260 K/UL (150-450) Mean Platelet Volume 7.7 FL (6.5-10.1) Neutrophils (%) (Auto) 53.5 % (45.0-75.0) Lymphocytes (%) (Auto) 30.6 % (20.0-45.0) Monocytes (%) (Auto) 8.7 % (1.0-10.0) Eosinophils (%) (Auto) 5.6 % (0.0-3.0) H Basophils (%) (Auto) 1.6 % (0.0-2.0) Sodium Level 142 MMOL/L (136-145) Potassium Level 3.6 MMOL/L (3.5-5.1) Chloride Level 106 MMOL/L (98-107) Carbon Dioxide Level 27 MMOL/L (21-32) Anion Gap 9 mmol/L (5-15) Blood Urea Nitrogen 17 mg/dL (7-18) Creatinine 0.9 MG/DL (0.55-1.30) Estimat Glomerular Filtration Rate > 60 mL/min (>60) Glucose Level 124 MG/DL (74-106) H Calcium Level 9.1 MG/DL (8.5-10.1) Bari Lebron MD May 22, 2019 20:37
--- NOTE | 2019-05-22 20:54 | General Progress Note ---
Assessment/Plan Problem List: (1) Diabetes mellitus ICD Codes: E11.9 - Type 2 diabetes mellitus without complications SNOMED: 38014150 (2) Aphasia ICD Codes: R47.01 - Aphasia SNOMED: 88232339 (3) Sepsis ICD Codes: A41.9 - Sepsis, unspecified organism SNOMED: 12977299 (4) History of CVA (cerebrovascular accident) ICD Codes: Z86.73 - Personal history of transient ischemic attack (TIA), and cerebral infarction without residual deficits SNOMED: 794845011 (5) UTI (urinary tract infection) ICD Codes: N39.0 - Urinary tract infection, site not specified SNOMED: 81932438 (6) History of DVT (deep vein thrombosis) ICD Codes: Z86.718 - Personal history of other venous thrombosis and embolism SNOMED: 302705066 (7) Anemia ICD Codes: D64.9 - Anemia, unspecified SNOMED: 386333716 (8) Decubitus skin ulcer ICD Codes: L89.90 - Pressure ulcer of unspecified site, unspecified stage SNOMED: 290776935 Status: stable, progressing Assessment/Plan: peg is broken so consulted dr ling to replace it anemia h/o dvt resp insuff no wheezing Subjective ROS Limited/Unobtainable: Yes Allergies: Coded Allergies: VANCOMYCIN (Verified Allergy, Mild, Redness , 10/29/18) CIPROFLOXACIN (Verified Allergy, Unknown, 08/23/15) Objective Last 24 Hour Vital Signs Date Time Temp Pulse Resp B/P (MAP) Pulse Ox O2 Delivery O2 Flow Rate FiO2 05/22/19 16:00 63 05/22/19 16:00 Room Air 05/22/19 16:00 98.0 79 20 148/92 (110) 98 05/22/19 12:00 Room Air 05/22/19 12:00 66 05/22/19 12:00 97.8 63 18 116/75 (89) 100 05/22/19 08:26 71 126/77 05/22/19 08:00 72 05/22/19 08:00 Room Air 05/22/19 08:00 97.9 64 20 126/77 (93) 98 05/22/19 04:00 Room Air 05/22/19 04:00 80 05/22/19 04:00 97.6 79 20 154/74 (100) 99 05/22/19 02:42 72 18 96 Room Air 21 05/22/19 00:00 Room Air 05/22/19 00:00 97.8 69 20 126/72 (90) 99 05/22/19 00:00 73 05/21/19 21:38 70 135/85 Intake and Output 05/21/19 05/22/19 19:00 07:00 Intake Total 1115 ml 1128.333 ml Balance 1115 ml 1128.333 ml Free Water 150 ml 100 ml IV Total 605 ml 668.333 ml Tube Feeding 360 ml 360 ml # Voids 4 2 Laboratory Tests 05/22/19 08:05: White Blood Count 8.5, Red Blood Count 4.39L, Hemoglobin 12.1L, Hematocrit 36.7L , Mean Corpuscular Volume 84, Mean Corpuscular Hemoglobin 27.6, Mean Corpuscular Hemoglobin Concent 33.0, Red Cell Distribution Width 14.3, Platelet Count 260, Mean Platelet Volume 7.7, Neutrophils (%) (Auto) 53.5, Lymphocytes (% ) (Auto) 30.6, Monocytes (%) (Auto) 8.7, Eosinophils (%) (Auto) 5.6H, Basophils (%) (Auto) 1.6, Sodium Level 142, Potassium Level 3.6, Chloride Level 106, Carbon Dioxide Level 27, Anion Gap 9, Blood Urea Nitrogen 17, Creatinine 0.9, Estimat Glomerular Filtration Rate > 60, Glucose Level 124H, Calcium Level 9.1 Height (Feet): 5 Height (Inches): 10.00 Weight (Pounds): 226 Cardiovascular: regular rhythm Respiratory/Chest: lungs clear Abdomen: soft Karina Keen MD May 22, 2019 20:54
[2019-05-22] MEDS ORDERED: Dyna-Hex 2% Top Sol 2oz TOPIC SCH (21:00)
[2019-05-23] VITALS: BP 128/79
--- NOTE | 2019-05-23 01:00 | NUR ---
NURSE NOTES: oral care given, repositioned pt q 2hrs, no sob noted at this moment. call light within reach.
--- NOTE | 2019-05-23 01:03 | NUR ---
NURSE NOTES: dressing changed PICC line with Sterile technique, no s/s of infection. pt states no pain at this moment.
[2019-05-23 04:00] VITALS: BP 148/84
[2019-05-23] MEDS: Meropenem 1 GM in NS 55 ML IVPB SCH (05:30)
[2019-05-23 05:39] LABS: BASOPHILS % (AUTO) 1.6 % (0.0-2.0); EOSINOPHILS % (AUTO) 5.4 % (0.0-3.0); HEMATOCRIT 35.8 % (42.0-52.0); HEMOGLOBIN 12.1 G/DL (14.2-18.0); LYMPHOCYTES % (AUTO) 38.8 % (20.0-45.0); MEAN CORPUSCULAR VOLUME 84 FL (80-99); MONOCYTES % (AUTO) 8.8 % (1.0-10.0); NEUTROPHILS % (AUTO) 45.4 % (45.0-75.0); PLATELET COUNT 294 K/UL (150-450); RED BLOOD COUNT 4.27 M/UL (4.70-6.10); RED CELL DISTRIBUTION WIDTH 14.3 % (11.6-14.8); WHITE BLOOD COUNT 9.3 K/UL (4.8-10.8)
[2019-05-23 06:21] LABS: ALANINE AMINOTRANSFERASE 24 U/L (12-78); ALBUMIN 2.5 G/DL (3.4-5.0); ALBUMIN/GLOBULIN RATIO 0.5 (1.0-2.7); ALKALINE PHOSPHATASE 65 U/L (46-116); ANION GAP 8 mmol/L (5-15); BILIRUBIN,TOTAL 0.2 MG/DL (0.2-1.0); BLOOD UREA NITROGEN 16 mg/dL (7-18); CALCIUM 9.4 MG/DL (8.5-10.1); CARBON DIOXIDE 27 MMOL/L (21-32); CHLORIDE 107 MMOL/L (98-107); CREATININE 0.8 MG/DL (0.55-1.30); POTASSIUM 4.1 MMOL/L (3.5-5.1); SODIUM 142 MMOL/L (136-145)
--- NOTE | 2019-05-23 07:15 | NUR ---
HAND-OFF: Report given to Hunter CHRISTOPHER. pt is in stable condition
--- NOTE | 2019-05-23 07:20 | NUR ---
NURSE NOTES: Received report from Perlita Goetz RN. Observed patient in bed, awake, responsive. On room air, no respiratory distress noted. ekg monitor shows SR with HR of 78. Left upper arm PICC line intact and patent with IV fluids infusing at prescribed rate. GT intact and patent with TF infusing at prescribed rate, HOB elevated. Suprapubic catheter intact and draining well. Bed locked, alarmed, and in lowest position, padded side rails up x2, and call light left within reach. Will continue to monitor.
[2019-05-23 08:00] VITALS: BP 109/69
--- NOTE | 2019-05-23 08:24 | NUR ---
DISCHARGE PLANNING: DISCHARGE HELD [facility] HAS ACCEPTED THE PATIENT BUT IS REQUESTING PICC LINE PLACED ID ORDERED FOR PICC-LINE TO BE PLACED Addendum: 05/23/19 at 0830 by MICHEAL VILLALTA LVN PICC LINE IN PLACE
[2019-05-23] MEDS: Docusate 100mg/10ml Liq GT SCH (08:25)
[2019-05-23] MEDS: Heparin 5000 units/ml inj SUBQ SCH (08:29)
[2019-05-23 08:30] VITALS: BP 105/69
[2019-05-23] MEDS: Carvedilol 6.25mg Tab GT SCH (08:30)
--- NOTE | 2019-05-23 09:04 | General Progress Note ---
Assessment/Plan Problem List: (1) Gastrostomy tube dependent ICD Codes: Z93.1 - Gastrostomy status SNOMED: 654919120, 001927685 (2) Anemia ICD Codes: D64.9 - Anemia, unspecified SNOMED: 606610329 (3) UTI (urinary tract infection) ICD Codes: N39.0 - Urinary tract infection, site not specified SNOMED: 76175011 (4) History of CVA (cerebrovascular accident) ICD Codes: Z86.73 - Personal history of transient ischemic attack (TIA), and cerebral infarction without residual deficits SNOMED: 895361784 (5) Feeding by G-tube ICD Codes: Z93.1 - Gastrostomy status SNOMED: 263047919, 233159342 Status: stable, progressing Assessment/Plan: GT has been replaced GTf GT care fu labs Subjective ROS Limited/Unobtainable: No Allergies: Coded Allergies: VANCOMYCIN (Verified Allergy, Mild, Redness , 10/29/18) CIPROFLOXACIN (Verified Allergy, Unknown, 08/23/15) Objective Last 24 Hour Vital Signs Date Time Temp Pulse Resp B/P (MAP) Pulse Ox O2 Delivery O2 Flow Rate FiO2 05/23/19 08:30 62 105/69 05/23/19 04:00 Room Air 05/23/19 04:00 98.6 67 20 148/84 (105) 99 05/23/19 03:43 78 05/23/19 00:00 98.8 64 20 128/79 (95) 99 05/23/19 00:00 Room Air 05/22/19 23:27 89 05/22/19 21:44 94 143/86 05/22/19 20:02 76 20 94 Room Air 21 05/22/19 20:00 Room Air 05/22/19 20:00 97.7 94 20 143/86 (105) 94 05/22/19 20:00 74 05/22/19 16:00 63 05/22/19 16:00 Room Air 05/22/19 16:00 98.0 79 20 148/92 (110) 98 05/22/19 12:00 Room Air 05/22/19 12:00 66 05/22/19 12:00 97.8 63 18 116/75 (89) 100 Intake and Output 05/22/19 05/23/19 19:00 07:00 Intake Total 905 ml 1030 ml Output Total 900 ml 450 ml Balance 5 ml 580 ml Free Water 150 ml 100 ml IV Total 455 ml 570 ml Tube Feeding 300 ml 360 ml Output Urine Total 900 ml 450 ml # Bowel Movements 1 Laboratory Tests 05/23/19 04:30: White Blood Count 9.3, Red Blood Count 4.27L, Hemoglobin 12.1L, Hematocrit 35.8L , Mean Corpuscular Volume 84, Mean Corpuscular Hemoglobin 28.3, Mean Corpuscular Hemoglobin Concent 33.7, Red Cell Distribution Width 14.3, Platelet Count 294, Mean Platelet Volume 7.6, Neutrophils (%) (Auto) 45.4, Lymphocytes (% ) (Auto) 38.8, Monocytes (%) (Auto) 8.8, Eosinophils (%) (Auto) 5.4H, Basophils (%) (Auto) 1.6, Sodium Level 142, Potassium Level 4.1, Chloride Level 107, Carbon Dioxide Level 27, Anion Gap 8, Blood Urea Nitrogen 16, Creatinine 0.8, Estimat Glomerular Filtration Rate > 60, Glucose Level 115H, Calcium Level 9.4, Total Bilirubin 0.2, Aspartate Amino Transf (AST/SGOT) [Pending], Alanine Aminotransferase (ALT/SGPT) 24, Alkaline Phosphatase 65, Pro-B-Type Natriuretic Peptide 221H, Total Protein 7.7, Albumin 2.5L, Globulin 5.2, Albumin/Globulin Ratio 0.5L Height (Feet): 5 Height (Inches): 10.00 Weight (Pounds): 226 General Appearance: lethargic EENT: normal ENT inspection Neck: supple Cardiovascular: normal rate Respiratory/Chest: decreased breath sounds Abdomen: normal bowel sounds, non tender, soft Extremities: non-tender Deep Faust MD May 23, 2019 09:04
[2019-05-23 09:17] LABS: ASPARTATE AMINO TRANSFERASE 30 U/L (15-37)
--- NOTE | 2019-05-23 10:07 | NUR ---
RD ASSESSMENT & RECOMMENDATIONS SEE CARE ACTIVITY FOR COMPLETE ASSESSMENT DAILY ESTIMATED NEEDS: Needs based on obese, bedbound, wound, TF [employer]/ 77.5kg 22-25 kcals/kg 9233-9927 total kcals 1.25-1.5 g protein/kg 97-116 g total protein 25-30 mL/kg 8354-9323 total fluid mLs NUTRITION DIAGNOSIS: * Swallowing difficulty related to dysphagia s/p cva as evidenced by pt dependent on PEG for all nutrition and hydration needs. * Increased kcal/prot needs R/T wound healing as evidenced by admitted w/ non-blanching erythema with shearing sacrum and R buttocks. CURRENT TF:Nepro @ 30ml/hr x 24 hrs ENTERAL NUTRITION RECOMMENDATIONS: Glucerna 1.5 @ 50ml/hr x 24 hrs to provide 1200ml, 1800kcal, 99g prot, 911ml free water * Rec TF change to [employer] TF of Glucerna 1.5 (Renal TF of Nepro is unnecessary) * Initiate TF @ 30ml/hr x 6 hrs, advance 10ml q 4-6 hrs as tolerated to goal * HOB over 30 degrees/ water flush per MD ADDITIONAL RECOMMENDATIONS: 1) Calibrated bedscale wt for accurate CBW 2) Wound care: add Stone 1pkt BID (mix w/ 4oz water) 3) Monitor lytes, replete as needed 4) Rec NISS - h/o DM 5) Check A1C for eval of glycemic control 6) Rec TF change: Nepro is unnecessary .
--- NOTE | 2019-05-23 10:57 | NUR ---
*-*DISCHARGE PLANNED*-* PATIENT IS BEING DISCHARGED TO: [facility] P: [phone] F: [phone] # 17.C S/W GOOD PER NURSE TO NURSE REPORT P:[phone] SKILLED [facility] [id number] S/W TONY MARCELO 12PM
--- NOTE | 2019-05-23 11:02 | NUR ---
RADIOLOGY DEPT., CHEST X-RAY DONE.-P.DYE
--- NOTE | 2019-05-23 11:19 | NUR ---
NURSE NOTES: Report given to CANDI Finney from [facility] via telephone.
--- NOTE | 2019-05-23 12:20 | Nephrology Progress Note ---
Assessment/Plan Problem List: (1) Renal failure (ARF), acute on chronic (2) UTI (urinary tract infection) (3) Suprapubic catheter Assessment acute renal failure UTI SupraPubic Cath Dysfunction leakage Plan stable from renal stand for Discharge DC IV fluids kidneyUTZ No obstructive nephropathy. Bilateral renal cysts. Nonobstructive stones in the left kidney. skin care monitor renal parameters per orders Subjective ROS Limited/Unobtainable: No Constitutional: Reports: malaise Objective Objective Last 24 Hour Vital Signs Date Time Temp Pulse Resp B/P (MAP) Pulse Ox O2 Delivery O2 Flow Rate FiO2 05/23/19 08:30 62 105/69 05/23/19 08:00 97.7 62 20 109/69 (82) 99 05/23/19 08:00 Room Air 05/23/19 07:43 61 05/23/19 04:00 Room Air 05/23/19 04:00 98.6 67 20 148/84 (105) 99 05/23/19 03:43 78 05/23/19 00:00 98.8 64 20 128/79 (95) 99 05/23/19 00:00 Room Air 05/22/19 23:27 89 05/22/19 21:44 94 143/86 05/22/19 20:02 76 20 94 Room Air 21 05/22/19 20:00 Room Air 05/22/19 20:00 97.7 94 20 143/86 (105) 94 05/22/19 20:00 74 05/22/19 16:00 63 05/22/19 16:00 Room Air 05/22/19 16:00 98.0 79 20 148/92 (110) 98 Intake and Output 05/22/19 05/23/19 19:00 07:00 Intake Total 905 ml 1030 ml Output Total 900 ml 450 ml Balance 5 ml 580 ml Free Water 150 ml 100 ml IV Total 455 ml 570 ml Tube Feeding 300 ml 360 ml Output Urine Total 900 ml 450 ml # Bowel Movements 1 Current Medications Medications (Trade) Dose Ordered Sig/Fab Route PRN Reason Start Time Stop Time Status Last Admin Dose Admin Acetaminophen (Tylenol) 650 mg Q4H PRN GT FEVER 05/21/19 17:30 06/20/19 17:29 Carvedilol (Coreg) 6.25 mg EVERY 12 HOURS GT 05/17/19 21:00 06/16/19 20:59 05/22/19 21:44 Chlorhexidine Gluconate (Licha-Hex 2%) 1 applic DAILY@2000 TOPIC 05/22/19 21:00 06/21/19 20:59 05/22/19 21:42 Dextrose (Dextrose 50%) 25 ml Q30M PRN IV Hypoglycemia 05/17/19 17:30 06/16/19 17:29 Dextrose (Dextrose 50%) 50 ml Q30M PRN IV Hypoglycemia 05/17/19 17:30 06/16/19 17:29 Docusate Sodium (Colace) 100 mg BID GT 05/18/19 18:00 06/17/19 17:59 05/23/19 08:25 Ertapenem 1 gm/ Sodium Chloride 55 ml @ 110 mls/hr Q24H IVPB 05/23/19 21:00 05/28/19 20:59 UNV Heparin Sodium (Porcine) (Heparin 5000 units/ml) 5,000 units EVERY 12 HOURS SUBQ 05/17/19 21:00 06/16/19 20:59 05/23/19 08:29 Lansoprazole (Prevacid) 30 mg BID GT 05/21/19 18:00 06/20/19 17:59 05/23/19 08:26 Meropenem 1 gm/ Sodium Chloride 55 ml @ 110 mls/hr Q8HR IVPB 05/19/19 12:30 05/24/19 12:29 05/23/19 05:30 Ondansetron HCl (Zofran) 4 mg Q6H PRN IVP Nausea & Vomiting 05/17/19 17:30 06/16/19 17:29 Polyethylene Glycol (Miralax) 17 gm DAILYPRN PRN GT Constipation 05/21/19 17:30 06/16/19 17:29 Potassium Chloride 10 meq/ Dextrose/Sodium Chloride 1,005 ml @ 50 mls/hr Q20H6M IV 05/20/19 09:00 06/17/19 08:59 05/22/19 21:48 Laboratory Tests 05/23/19 04:30: White Blood Count 9.3, Red Blood Count 4.27L, Hemoglobin 12.1L, Hematocrit 35.8L , Mean Corpuscular Volume 84, Mean Corpuscular Hemoglobin 28.3, Mean Corpuscular Hemoglobin Concent 33.7, Red Cell Distribution Width 14.3, Platelet Count 294, Mean Platelet Volume 7.6, Neutrophils (%) (Auto) 45.4, Lymphocytes (% ) (Auto) 38.8, Monocytes (%) (Auto) 8.8, Eosinophils (%) (Auto) 5.4H, Basophils (%) (Auto) 1.6, Sodium Level 142, Potassium Level 4.1, Chloride Level 107, Carbon Dioxide Level 27, Anion Gap 8, Blood Urea Nitrogen 16, Creatinine 0.8, Estimat Glomerular Filtration Rate > 60, Glucose Level 115H, Calcium Level 9.4, Total Bilirubin 0.2, Aspartate Amino Transf (AST/SGOT) 30, Alanine Aminotransferase (ALT/SGPT) 24, Alkaline Phosphatase 65, Pro-B-Type Natriuretic Peptide 221H, Total Protein 7.7, Albumin 2.5L, Globulin 5.2, Albumin/Globulin Ratio 0.5L Height (Feet): 5 Height (Inches): 10.00 Weight (Pounds): 226 General Appearance: no apparent distress Cardiovascular: normal rate Respiratory/Chest: decreased breath sounds Abdomen: distended Objective no change Pranav Grady MD May 23, 2019 12:20
[2019-05-23] MEDS ORDERED: NS 275ml ONE (12:39)
[2019-05-23] MEDS ORDERED: NS Irrig 1000ml ONE (12:39)
[2019-05-23] MEDS ORDERED: Tubing IV Secondary IV ONE (12:39)
--- NOTE | 2019-05-23 12:48 | Diagnostic Imaging Report ---
Indication: Dyspnea Comparison: 05/20/2019 A single view chest radiograph was obtained. Findings: No definite infiltrate or pulmonary vascular congestion identified. The lung volumes are low. The heart is enlarged. The aorta is mildly enlarged consistent with atherosclerotic vascular disease. The bones are osteopenic. Impression: No acute disease
--- NOTE | 2019-05-23 13:28 | Infectious Diseases Prog Note ---
Assessment/Plan Assessment/Plan Assessment: Severe Sepsis UTI Proteus bacteremia Obstructive uropathy -05/23 CXR: No acute disease -05/22 SP Suprapubic catheter exchange -05/18 sp cx normal resp joão , P mirabilis(R amp, bactrim ancef; I ceftriaxone ; colonizer), no PNA on CXR -u/a wbc 40-60, nit neg, leuk +3; Ucx >100k M. morganii (R amp, Ancef, cipro, bactrim; I Levaquin; otherwise S) -05/17 Bcx 07/11 P. mirabilis, probable AmpC (S Zosyn, Meropenem); 05/21 Bcx NTD CXR: Reduced lung volumes with accentuation of bronchovascular markings. CT abd/p: Cholelithiasis. Bilateral nephrolithiasis. Stones in the bilateral renal pelvises and proximal ureters. 5-6 mm stone in the left mid ureter. Mild-moderate obstructive changes. Fever; SP Leukocytosis; SP GILDARDO, SP -Renal US: No obstructive nephropathy. Bilateral renal cysts. Nonobstructive stones in the left kidney. Suprapubic catheter hx of Recurrent malfunctioning R nephrostomy tube -01/21/19 SP removal: Patent right ureter, without evidence of residual ureteral stone disease.Nephrostomy therefore no longer necessary, was removed -01/21/19 Renal US: Limited exam, with only visualization of the right kidney. Negative for right hydronephrosis. Echogenic right renal foci, may represent calculi or the patient's nephrostomy tube, favor the latter. -01/2019 u/a wbc 10-15, nit +, leuk +3; ucx >100k P. stuarti- S AMikacin, Ceftriaxone, Cefepime, Zosyn (likely colonizer) -01/03/19 SP replacement suprapubic catheter and R NT -12/13/18 SP NT exchange hx MRSA and proteus septic shock/bacteremia 10/2018 HTN COPD DVT Dm2 GERD paraplegia aphasia dysphagia s/p GT chronic respiratory failure s/p trach dependent recurrent UTIs CVA/TIA quadriplegia neurogenic bladder s/p suprapubic catheter [facility] resident CKD MRSA and VRE colonized Plan: -Continue Ertapenem #1 (abx d #5/14) for Proteus bacteremia and morganella UTI -upon discharge, can transition to IV ertapenem 1g qd -05/22 SP Meropenem #5 -2/10 SP linezolid #2, Zosyn #2 -2/8 SP Cefepime x1 -f/u cx -Monitor CBC/CMP, temperatures -Uro f/u -Trach/peg, SPC care -aspiration precautions -f/u repeat bcx Thank you for this consultation. Will continue to follow along with you. Discussed with RN Subjective Allergies: Coded Allergies: VANCOMYCIN (Verified Allergy, Mild, Redness , 10/29/18) CIPROFLOXACIN (Verified Allergy, Unknown, 08/23/15) Subjective afebrile no leukocytosis repeat Bcx NTD discharge planning Objective Vital Signs Last 24 Hour Vital Signs Date Time Temp Pulse Resp B/P (MAP) Pulse Ox O2 Delivery O2 Flow Rate FiO2 05/23/19 08:30 62 105/69 05/23/19 08:00 97.7 62 20 109/69 (82) 99 05/23/19 08:00 Room Air 05/23/19 07:43 61 05/23/19 04:00 Room Air 05/23/19 04:00 98.6 67 20 148/84 (105) 99 05/23/19 03:43 78 05/23/19 00:00 98.8 64 20 128/79 (95) 99 05/23/19 00:00 Room Air 05/22/19 23:27 89 05/22/19 21:44 94 143/86 05/22/19 20:02 76 20 94 Room Air 21 05/22/19 20:00 Room Air 05/22/19 20:00 97.7 94 20 143/86 (105) 94 05/22/19 20:00 74 05/22/19 16:00 63 05/22/19 16:00 Room Air 05/22/19 16:00 98.0 79 20 148/92 (110) 98 Height (Feet): 5 Height (Inches): 10.00 Weight (Pounds): 226 Objective GENERAL: no distress CARDIOVASCULAR: No murmur. S1, S2 normal LUNGS: decreased breath sounds at bases ABDOMEN: non tender EXTREMITIES: No cyanosis, clubbing, or edema. Microbiology Date/Time Source Procedure Growth Status 05/21/19 19:15 Blood Blood Culture - Preliminary NO GROWTH AFTER 24 HOURS Resulted 05/21/19 19:00 Blood Blood Culture - Preliminary NO GROWTH AFTER 24 HOURS Resulted Laboratory Tests Test 05/23/19 04:30 White Blood Count 9.3 K/UL (4.8-10.8) Red Blood Count 4.27 M/UL (4.70-6.10) L Hemoglobin 12.1 G/DL (14.2-18.0) L Hematocrit 35.8 % (42.0-52.0) L Mean Corpuscular Volume 84 FL (80-99) Mean Corpuscular Hemoglobin 28.3 PG (27.0-31.0) Mean Corpuscular Hemoglobin Concent 33.7 G/DL (32.0-36.0) Red Cell Distribution Width 14.3 % (11.6-14.8) Platelet Count 294 K/UL (150-450) Mean Platelet Volume 7.6 FL (6.5-10.1) Neutrophils (%) (Auto) 45.4 % (45.0-75.0) Lymphocytes (%) (Auto) 38.8 % (20.0-45.0) Monocytes (%) (Auto) 8.8 % (1.0-10.0) Eosinophils (%) (Auto) 5.4 % (0.0-3.0) H Basophils (%) (Auto) 1.6 % (0.0-2.0) Sodium Level 142 MMOL/L (136-145) Potassium Level 4.1 MMOL/L (3.5-5.1) Chloride Level 107 MMOL/L (98-107) Carbon Dioxide Level 27 MMOL/L (21-32) Anion Gap 8 mmol/L (5-15) Blood Urea Nitrogen 16 mg/dL (7-18) Creatinine 0.8 MG/DL (0.55-1.30) Estimat Glomerular Filtration Rate > 60 mL/min (>60) Glucose Level 115 MG/DL (74-106) H Calcium Level 9.4 MG/DL (8.5-10.1) Total Bilirubin 0.2 MG/DL (0.2-1.0) Aspartate Amino Transf (AST/SGOT) 30 U/L (15-37) Alanine Aminotransferase (ALT/SGPT) 24 U/L (12-78) Alkaline Phosphatase 65 U/L (46-116) Pro-B-Type Natriuretic Peptide 221 pg/mL (0-125) H Total Protein 7.7 G/DL (6.4-8.2) Albumin 2.5 G/DL (3.4-5.0) L Globulin 5.2 g/dL Albumin/Globulin Ratio 0.5 (1.0-2.7) L Current Medications Medications (Trade) Dose Ordered Sig/Fab Route PRN Reason Start Time Stop Time Status Last Admin Dose Admin Acetaminophen (Tylenol) 650 mg Q4H PRN GT FEVER 05/21/19 17:30 06/20/19 17:29 Carvedilol (Coreg) 6.25 mg EVERY 12 HOURS GT 05/17/19 21:00 06/16/19 20:59 05/22/19 21:44 Chlorhexidine Gluconate (Licha-Hex 2%) 1 applic DAILY@2000 TOPIC 05/22/19 21:00 06/21/19 20:59 05/22/19 21:42 Dextrose (Dextrose 50%) 25 ml Q30M PRN IV Hypoglycemia 05/17/19 17:30 06/16/19 17:29 Dextrose (Dextrose 50%) 50 ml Q30M PRN IV Hypoglycemia 05/17/19 17:30 06/16/19 17:29 Docusate Sodium (Colace) 100 mg BID GT 05/18/19 18:00 06/17/19 17:59 05/23/19 08:25 Ertapenem 1 gm/ Sodium Chloride 55 ml @ 110 mls/hr Q24H IVPB 05/23/19 15:00 05/28/19 14:59 Heparin Sodium (Porcine) (Heparin 5000 units/ml) 5,000 units EVERY 12 HOURS SUBQ 05/17/19 21:00 06/16/19 20:59 05/23/19 08:29 Lansoprazole (Prevacid) 30 mg BID GT 05/21/19 18:00 06/20/19 17:59 05/23/19 08:26 Ondansetron HCl (Zofran) 4 mg Q6H PRN IVP Nausea & Vomiting 05/17/19 17:30 06/16/19 17:29 Polyethylene Glycol (Miralax) 17 gm DAILYPRN PRN GT Constipation 05/21/19 17:30 06/16/19 17:29 Dorothea Macario M.D.b 14, 2020 13:28
[2019-05-23] MEDS ORDERED: Ertapenem 1 GM in NS 55 ML IVPB SCH (15:00)
--- NOTE | 2019-05-25 16:42 | Discharge Summary ---
Discharge Summary Discharge Summary _ DATE OF ADMISSION: 05/17/2019 DATE OF DISCHARGE: 05/23/2019 DISCHARGED BY: Dr. Jaylen Bear CONSULTANTS: Dr. Dorothea Funk [facility] HOSPITAL COURSE: Patient is a 59-year-old male, from [facility], presented to the ED due to fever. Patient was chronically debilitated and was sent from the [place] [facility]. He was noted to have a temperature of 102 at the facility. Patient has history of urinary tract infection and previous suprapubic catheter placement. He has medical history of DVT, hyponatremia, diabetes, dysphagia, G- tube, encephalopathy, CVA, paraplegia. Upon evaluation at ED, temperature was 102.9. Blood pressure was stable. Heart rate elevated to 130. Blood work showed leukocytosis 17. Hemoglobin and hematocrit were stable. Electrolytes were normal. Creatinine elevated to 2.0. BUN 64. Lactic acid 1.3. Troponin negative. Urinalysis showed 3+ leukocyte esterase, 40-60 urine WBC, 20-[address] of the abdomen and pelvis showed cholelithiasis, bilateral nephrolithiasis with mild to moderate obstructive changes. Patient was then admitted for inpatient care. He was given IV hydration. He was started on tube feeding with Nepro. Patient had tachycardia. He had evidence of intravascular volume depletion. Troponin was negative. EKG did not show any acute ischemic changes. He had a mildly elevated proBNP although he did not appear with any signs and symptoms of congestive heart failure. Patient had multiple admissions for obstructive uropathy. He had history of recurrent malfunctioning right nephrostomy tube. He was initially started on linezolid by ID. Antibiotic was discontinued due to no gram-positive growth. Blood culture with gram-negative rods. Zosyn was changed to meropenem. Urine culture showed growth of Morganella. Kidney. Bilateral renal cysts. Nonobstructive stone in the left kidney. He was given respiratory treatment. He was placed on chest physiotherapy. Sputum culture showed growth of Proteus. Blood culture with growth of Proteus. She was continued on meropenem. PICC line was inserted to the left arm. Urologist was consulted for evaluation of a leaking suprapubic tube. Mild suprapubic catheter was removed. A new Ug[place] Kenny catheter was placed into the suprapubic channel without any difficulty. Tachycardia resolved. Patient was sinus on the monitor. Kidney function improved. Patient was eventually cleared for discharge back to [place] [facility] to continue IV antibiotic ertapenem 1 g daily x10 days. FINAL DIAGNOSES: Severe sepsis UTI Proteus bacteremia Obstructive uropathy Acute on chronic renal failure History of recurrent malfunctioning right nephrostomy tube Status post suprapubic change on 05/22/2019 Tachycardia due to volume depletion DISPOSITION: DC to SNF I have been assigned to complete a discharge summary on this account, I was not involved with the patient's management.--TERRA [place] Jacqueline Robles NP May 25, 2019 16:42
== END 2019-05-23 12:40 | DRG 720 ==
LOC: EDBD 14:48 → EDUNIT# 14:48 → EMR 15:19 → 2W 16:26 → EDBEDREQSVC 16:38 → EDBEDREQ 16:38
DX: A41.59 Other Gram-negative sepsis (principal); G82.50 Quadriplegia, unspecified; N39.0 Urinary tract infection, site not specified; N17.9 Acute kidney failure, unspecified; G91.1 Obstructive hydrocephalus; G93.49 Other encephalopathy; Z86.73 Personal history of transient ischemic attack (TIA), and cerebral infarction without residual deficits; R65.20 Severe sepsis without septic shock; N18.9 Chronic kidney disease, unspecified; Z88.1 Allergy status to other antibiotic agents; Z86.718 Personal history of other venous thrombosis and embolism; E11.22 Type 2 diabetes mellitus with diabetic chronic kidney disease; T83.010A Breakdown (mechanical) of cystostomy catheter, initial encounter; Y83.3 Surgical operation with formation of external stoma as the cause of abnormal reaction of the patient, or of later complication, without mention of misadventure at the time of the procedure; Z86.14 Personal history of Methicillin resistant Staphylococcus aureus infection; R13.10 Dysphagia, unspecified; N31.9 Neuromuscular dysfunction of bladder, unspecified; R47.01 Aphasia; N28.1 Cyst of kidney, acquired; D64.9 Anemia, unspecified; L89.90 Pressure ulcer of unspecified site, unspecified stage; Z43.1 Encounter for attention to gastrostomy
CPT/HCPCS: 36415; 36569; 36600; 71045; 74176; 76770; 76937; 80048; 80053; 80069; 81003; 82550; 82553; 82607; 82728; 82746; 82803; 82962; 83540; 83550; 83605; 83735; 83880; 84100; 84300; 84443; 84484; 84550; 85007; 85025; 85651; 86140; 87040; 87070; 87081; 87086; 87181; 87205; 93005; 94664; 96361; 96365; 96367; 97803; 99291; J7030

== ENCOUNTER 2020-01-26 13:33 | Inpatient (IN) | payer MEDICAID ==
[~2020-01-26] VITALS: Ht 182.9 cm; Wt 92.8 kg
--- NOTE | 2020-01-26 13:41 | NUR ---
ED Nurse Note: Pt LINDAA from [facility] for leaking suprapubic catheter. Pt is mostly nonverbal, can nod yes or no to questions and is alert and ox4. Suprapubic catheter leaking at site. Pt has been seen by EDWAR. Set up on monitor.
[2020-01-26 13:44] VITALS: BP 123/81
--- NOTE | 2020-01-26 14:05 | Emergency Room Report ---
History of Present Illness General Chief Complaint: Male Urogenital Problems Present Illness HPI 59-year-old male with a history of CVA, quadriplegia, chronic indwelling suprapubic catheter here with suprapubic catheter dysfunction. Patient resides at a care home and 3 days ago there was noted to be a large amount of urine leakage around the patient's suprapubic catheter. The catheter was changed with another 18 Polish suprapubic catheter. He however has still had leakage of urine around the tube. Patient is alert and oriented x2 at his normal baseline and has had normal vital signs at the care home. He denies any complaints at this time. Denies fevers, chills, chest pain, palpitations, shortness of breath, back pain, abdominal pain, nausea, vomiting, diarrhea. 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 COVID-19 Screening: PUI COVID-19 COVID-19 Testing Source: at [facility] Nursing Documentation-PMH Hx Cardiac Problems: Yes - DVT Hx Hypertension: Yes - Hypernatremia Hx COPD: Yes Hx Diabetes: Yes - type 2 Hx Cancer: No Hx Gastrointestinal Problems: Yes - Dysphagia, G-tube, GERD Hx Neurological Problems: Yes - Encephalopathy, hydrocephalus Hx Cerebrovascular Accident: Yes Hx Transient Ischemic Attacks: Yes Hx Seizures: Yes - CRF Hx Paralysis: Yes - paraplegic Hx Speech Problem: Yes Hx Aphasia: Yes Review of Systems All Other Systems: negative except mentioned in HPI Physical Exam Vital Signs Date Time Temp Pulse Resp B/P (MAP) Pulse Ox O2 Delivery O2 Flow Rate FiO2 01/26/20 13:33 97.5 68 18 126/88 (101) 97 Room Air Sp02 EP Interpretation: reviewed, normal General Appearance: no apparent distress, non-toxic, other - Chronically ill- appearing but is in no acute distress Head: normocephalic, atraumatic Eyes: bilateral eye normal inspection, bilateral eye PERRL ENT: hearing grossly normal, normal pharynx, no angioedema, normal voice Neck: full range of motion, supple/symm/no masses Respiratory: chest non-tender, lungs clear, normal breath sounds, speaking full sentences Cardiovascular #1: regular rate, rhythm, no edema Cardiovascular #2: 2+ carotid (R), 2+ carotid (L), 2+ radial (R), 2+ radial (L), 2+ dorsalis pedis (R), 2+ dorsalis pedis (L) Gastrointestinal: normal bowel sounds, non tender, soft, non-distended, no guarding, no rebound Rectal: deferred Genitourinary: normal inspection, no CVA tenderness, other - Suprapubic catheter in place with active drainage of urine around the catheter insertion site. No surrounding skin erythema or induration. Small amount of cloudy urine in the catheter collection bag Musculoskeletal: back normal, normal range of motion, calf tenderness, gait/station normal, non-tender Neurologic: alert, motor strength/tone normal, oriented x3, sensory intact, responsive, speech normal Psychiatric: judgement/insight normal, memory normal, mood/affect normal, no suicidal/homicidal ideation Reflexes: 3+ bicep (R), 3+ bicep (L), 3+ tricep (R), 3+ tricep (L), 3+ knee (R), 3+ knee (L) Lymphatic: no adenopathy Medical Decision Making Diagnostic Impression: Primary Impression: Suprapubic catheter dysfunction Additional Impression: UTI (urinary tract infection) ER Course 59-year-old male with suprapubic catheter chronically here with leaking around the suprapubic catheter. The catheter was exchanged 3 days ago because of leakage around the catheter. Here to the emergency department the catheter appeared to be draining urine however there was a significant amount of leakage of urine around the catheter. Patient was in no acute distress and was able to answer questions and stated that he was in no discomfort whatsoever. CBC and CMP were unremarkable. Currently awaiting urinalysis at this time. However the urine appeared cloudy and patient was given a dose of cefepime in the emergency department. Review of previous urine cultures showed Proteus that was sensitive to cefepime. Patient was admitted in [facility]. Last Vital Signs Date Time Temp Pulse Resp B/P (MAP) Pulse Ox O2 Delivery O2 Flow Rate FiO2 01/26/20 13:44 97.5 82 16 123/81 99 Room Air Bandar Cartwright M.D. Jan 26, 2020 14:05
[2020-01-26] MEDS ORDERED: LORazepam Inj 2mg/ml 1ml IV ONE (14:45)
[2020-01-26] MEDS ORDERED: LORazepam Inj 2mg/ml 1ml IM ONE (14:45)
[2020-01-26] MEDS ORDERED: Cefepime HCl 1 GM in D5W 55 ML IVPB ONE (15:30)
[2020-01-26 15:44] LABS: BASOPHILS % (AUTO) 1.8 % (0.0-2.0); EOSINOPHILS % (AUTO) 5.3 % (0.0-3.0); HEMATOCRIT 44.1 % (42.0-52.0); HEMOGLOBIN 14.2 G/DL (14.2-18.0); LYMPHOCYTES % (AUTO) 33.7 % (20.0-45.0); MEAN CORPUSCULAR VOLUME 87 FL (80-99); MONOCYTES % (AUTO) 7.6 % (1.0-10.0); NEUTROPHILS % (AUTO) 51.6 % (45.0-75.0); PLATELET COUNT 212 K/UL (150-450); RED BLOOD COUNT 5.08 M/UL (4.70-6.10); RED CELL DISTRIBUTION WIDTH 15.5 % (11.6-14.8); WHITE BLOOD COUNT 7.4 K/UL (4.8-10.8)
[2020-01-26 16:01] LABS: ANION GAP 7 mmol/L (5-15); BLOOD UREA NITROGEN 21 mg/dL (7-18); CALCIUM 8.9 MG/DL (8.5-10.1); CARBON DIOXIDE 30 MMOL/L (21-32); CHLORIDE 101 MMOL/L (98-107); CREATININE 0.8 MG/DL (0.55-1.30); SODIUM 138 MMOL/L (136-145)
[2020-01-26 16:06] LABS: ALANINE AMINOTRANSFERASE 11 U/L (12-78); ALBUMIN 3.2 G/DL (3.4-5.0); ALBUMIN/GLOBULIN RATIO 0.7 (1.0-2.7); ALKALINE PHOSPHATASE 83 U/L (46-116); ASPARTATE AMINO TRANSFERASE 15 U/L (15-37); BILIRUBIN,TOTAL 0.4 MG/DL (0.2-1.0)
--- NOTE | 2020-01-26 16:43 | NUR ---
report given to clay levin patient is to be transferd to room 418-1 via [facility]
[2020-01-26 17:00] VITALS: BP 124/76
--- NOTE | 2020-01-26 17:19 | Consultation ---
History of Present Illness General Date patient seen: Jan 26, 2020 Chief Complaint: Male Urogenital Problems Present Illness HPI 59 y/o M with hx of HTN, COPD, DVT, Dm2, GERD, paraplegia, aphasia, dysphagia s/p GT, chronic respiratory failure s/p trach dependent, recurrent UTIs, CVA/TIA, quadriplegia, neurogenic bladder s/p suprapubic catheter and nephrostomy tube, MRSA and proteus septic shock/bacteremia 10/2018 from obstructive kidney stone, [place] presented to ED on 01/26/20 with suprapubic cath dysfunction Denied f/c, CP, palpitations, SOB, back pain, abd pain, n/v/d Of note, patient last admitted here on May 2019 for sepsis 2ry to Morganella UTI and Proteus bacteremia. Has had multiple admission for sepsis 2ry to UTI and obstructive kidney stones and malfunctioning nephrostomy tubes Allergies: Coded Allergies: VANCOMYCIN (Verified Allergy, Mild, Redness , 10/29/18) CIPROFLOXACIN (Verified Allergy, Unknown, 08/23/15) Medication History Scheduled Amino Acids/Protein Hydrolys (Pro-Stat Liquid), 30 ML GT TWICE A DAY, (Reported) Ascorbic Acid* (Ascorbic Acid*), 500 MG GT DAILY, (Reported) Bisacodyl (Dulcolax), 10 MG RC PRN, (Reported) Carvedilol (Coreg), 6.25 MG GT EVERY 12 HOURS Carvedilol (Coreg), 6.25 MG ORAL EVERY 12 HOURS, (Reported) Cefdinir (Cefdinir), 300 MG PO BID, (Reported) Cefdinir (Cefdinir), 300 MG PO BID, (Reported) Cefepime Hcl/D5w (Cefepime-Dextrose 1 Gm/50 Ml), 1 GM IVPB EVERY 12 HOURS, (Reported) Cran/Vitc/Mannose/Inulin/Brom (Uti-Stat Liquid), 3,875 MG GT BID, (Reported) Cranberry Fruit Concentrate (Cranberry), 900 MG GT BID, (Reported) Docusate Sodium* (Docusate Sodium*), 250 MG GT DAILY, (Reported) Lansoprazole* (Lansoprazole*), 30 MG GT BID, (Reported) Linezolid* (Zyvox*), 600 MG GT EVERY 12 HOURS Nystatin (Nystatin), 1 EACH MC TID, (Reported) Sennosides (Senna), 8.6 MG GT QHS, (Reported) Sennosides (Senokot), 17.2 MG PO QHS, (Reported) Trimethoprim/Sulfamethoxazole 160/800* (Bactrim Ds Tablet*), 1 TAB GT TWICE A DAY, (Reported) Trimethoprim/Sulfamethoxazole 160/800* (Bactrim Ds Tablet*), 1 TAB ORAL TWICE A DAY, (Reported) Scheduled PRN Acetaminophen (Tylenol), 650 MG GT Q4H PRN for Mild Pain (Pain Scale 1-3), (Reported) Acetaminophen* (Tylenol Extra Strength*), 2 TAB GT Q4H PRN for Moderate Pain (Pain Scale 4-6), (Reported) Magnesium Hydroxide* (Milk Of Magnesia*), 30 ML GT QHS PRN for Constipation, (Reported) Na Phos,M-B/Na Phos,Di-Ba (Fleet Enema), 133 ML RC QOD PRN for Constipation, (Reported) Miscellaneous Medications Heparin Sod,Porcine/0.9 % NaCl (Heparin 6,000 Unit/3 ml-Ns Syr), 5,000 UNIT IV, (Reported) Insulin Aspart (Novolog Flexpen), (Reported) Zinc Amino Acid Chelate (Zinc), 220 MG GT, (Reported) Patient History Healthcare decision maker Resuscitation status Advanced Directive on File Patient History Narrative PMhx: as above Shx: reviewed Fhx: non contributory Review of Systems All Other Systems: negative except mentioned in HPI Physical Exam Physical Exam Narrative General Appearance: no apparent distress, non-toxic, other - Chronically ill- appearing but is in no acute distress Head: normocephalic, atraumatic Eyes: bilateral eye normal inspection, bilateral eye PERRL ENT: hearing grossly normal, normal pharynx, no angioedema, normal voice Neck: full range of motion, supple/symm/no masses Respiratory: chest non-tender, lungs clear, normal breath sounds, speaking full sentences Cardiovascular #1: regular rate, rhythm, no edema Gastrointestinal: normal bowel sounds, non tender, soft, non-distended, no guarding, no rebound Last 24 Hour Vital Signs Date Time Temp Pulse Resp B/P (MAP) Pulse Ox O2 Delivery O2 Flow Rate FiO2 01/26/20 16:49 97.6 82 16 130/80 98 Room Air 01/26/20 15:04 89 16 127/89 96 01/26/20 13:44 97.5 82 16 123/81 99 Room Air 01/26/20 13:33 97.5 68 18 126/88 (101) 97 Room Air Laboratory Tests Test 01/26/20 15:15 01/26/20 16:55 White Blood Count 7.4 K/UL (4.8-10.8) Red Blood Count 5.08 M/UL (4.70-6.10) Hemoglobin 14.2 G/DL (14.2-18.0) Hematocrit 44.1 % (42.0-52.0) Mean Corpuscular Volume 87 FL (80-99) Mean Corpuscular Hemoglobin 27.9 PG (27.0-31.0) Mean Corpuscular Hemoglobin Concent 32.1 G/DL (32.0-36.0) Red Cell Distribution Width 15.5 % (11.6-14.8) H Platelet Count 212 K/UL (150-450) Mean Platelet Volume 9.5 FL (6.5-10.1) Neutrophils (%) (Auto) 51.6 % (45.0-75.0) Lymphocytes (%) (Auto) 33.7 % (20.0-45.0) Monocytes (%) (Auto) 7.6 % (1.0-10.0) Eosinophils (%) (Auto) 5.3 % (0.0-3.0) H Basophils (%) (Auto) 1.8 % (0.0-2.0) Sodium Level 138 MMOL/L (136-145) Potassium Level 4.0 MMOL/L (3.5-5.1) Chloride Level 101 MMOL/L (98-107) Carbon Dioxide Level 30 MMOL/L (21-32) Anion Gap 7 mmol/L (5-15) Blood Urea Nitrogen 21 mg/dL (7-18) H Creatinine 0.8 MG/DL (0.55-1.30) Estimat Glomerular Filtration Rate > 60 mL/min (>60) Glucose Level 101 MG/DL (74-106) Calcium Level 8.9 MG/DL (8.5-10.1) Total Bilirubin 0.4 MG/DL (0.2-1.0) Aspartate Amino Transf (AST/SGOT) 15 U/L (15-37) Alanine Aminotransferase (ALT/SGPT) 11 U/L (12-78) L Alkaline Phosphatase 83 U/L (46-116) Total Protein 7.7 G/DL (6.4-8.2) Albumin 3.2 G/DL (3.4-5.0) L Globulin 4.5 g/dL Albumin/Globulin Ratio 0.7 (1.0-2.7) L Urine Color Pending Urine Appearance Pending Urine pH Pending Urine Specific [place] Pending Urine Protein Pending Urine Glucose (UA) Pending Urine Ketones Pending Urine Blood Pending Urine Nitrite Pending Urine Bilirubin Pending Urine Urobilinogen Pending Urine Leukocyte Esterase Pending Microbiology Date/Time Source Procedure Growth Status 01/26/20 15:11 Nasopharynx SARS-CoV-2 RdRp Gene Assay - Final Complete Height (Feet): 6 Weight (Pounds): 199 Assessment/Plan Assessment/Plan: Abx: Cefepime x1 01/25 Assessment: COVID19 neg x1 (01/25 rapid COVID PCR neg) Afebrile No leukocytosis Suprapubic cath malfunction hx of Sepsis 2ry to Morganella UTI and Proteus bacteremia 05/2019 -05/22 SP Suprapubic catheter exchange -u/a wbc 40-60, nit neg, leuk +3; Ucx >100k M. morganii (R amp, Ancef, cipro, bactrim; I Levaquin; otherwise S) -05/17 Bcx / P. mirabilis, probable AmpC (S Zosyn, Meropenem); 05/[address] abd/p: Cholelithiasis. Bilateral nephrolithiasis. Stones in the bilateral renal pelvises and proximal ureters. 5-6 mm stone in the left mid ureter. Mild-moderate obstructive changes. hx of Recurrent malfunctioning R nephrostomy tube -01/21/19 SP removal: Patent right ureter, without evidence of residual ureteral stone disease.Nephrostomy therefore no longer necessary, was removed -01/21/19 Renal US: Limited exam, with only visualization of the right kidney. Negative for right hydronephrosis. Echogenic right renal foci, may represent calculi or the patient's nephrostomy tube, favor the latter. -01/2019 u/a wbc 10-15, nit +, leuk +3; ucx >100k P. stuarti- S AMikacin, Ceftriaxone, Cefepime, Zosyn (likely colonizer) -01/03/19 SP replacement suprapubic catheter and R NT -12/13/18 SP NT exchange hx MRSA and proteus septic shock/bacteremia 10/2018 HTN COPD DVT Dm2 GERD paraplegia aphasia dysphagia s/p GT chronic respiratory failure s/p trach dependent recurrent UTIs CVA/TIA quadriplegia neurogenic bladder s/p suprapubic catheter [facility] resident ([facility]) CKD hx of MRSA and VRE colonization Plan: -Continue to monitor off abx unless febrile, leukocytosis, HD unstable -f/u u/a and ucx -f/u cx -Monitor CBC/CMP, temperatures -Uro eval Thank you for consulting [facility]. Will continue to follow along with you. Discussed miranda CHRISTOPHER. Dorothea Macario M.D. Jan 26, 2020 17:19
--- NOTE | 2020-01-26 17:30 | NUR ---
ED Nurse Note: Pt transferred to [facility] with all belongings. No acute distress. Cleared by ERMD to be transferred.
[2020-01-26 17:33] LABS: APPEARANCE,URINE TURBID; BILIRUBIN, URINE NEGATIVE (NEGATIVE); GLUCOSE, URINE (UA) NEGATIVE (NEGATIVE); KETONES,URINE NEGATIVE (NEGATIVE); LEUKOCYTE ESTERASE ,URINE 3+ (NEGATIVE); NITRITE,URINE POSITIVE (NEGATIVE); PH,URINE 9 (4.5-8.0); PROTEIN,URINE 3+ (NEGATIVE); UROBILINOGEN,URINE NORMAL MG/DL (0.0-1.0)
[2020-01-26 17:34] LABS: COLOR,URINE PALE YELLOW
[2020-01-26 17:45] VITALS: BP 135/93
--- NOTE | 2020-01-26 18:43 | NUR ---
NURSE NOTES: PATIENT ARRIVED ON THE UNIT FLOOR IN ROOM 418-1 VIA GURNEY FROM ED. A/A/OX2, MUMBLES. NO PERSONAL BELONGINGS NOTED. SKIN IS INTACT. PLACED OPTIFOAM PROPHYLACTIC ON JAVIER HEELS. GTUBE INPLACED AND CLAMPED. SUPRAPUBIC CATHETER DRAINING WITH MODERATE AMOUNT CHANGE DRSG. PATIENT IS INCONTINENT. ADMISSION PROFILE DONE. ADMIT ORDERS RECEIVED AND CARRIED OUT. CONTRACTED ON ALL EXTREMITIES. KEPT BED IN LOWEST POSITION. SIDERAILS ARE UPX3. BED LOCK AND ALARM ACTIVATED. WILL CONT TO MONITOR.
[2020-01-26] MEDS ORDERED: Bactrim-DS 1 tab GT SCH (18:45)
[2020-01-26] MEDS ORDERED: Fleet's Enema 133ml RECTAL PRN (18:45)
[2020-01-26] MEDS ORDERED: Acetaminophen 650mg/20.3ml GT PRN ×2 (18:45)
[2020-01-26] MEDS ORDERED: Bactrim-DS 1 tab ORAL SCH (18:45)
[2020-01-26] MEDS ORDERED: Cefdinir 300mg cap ORAL SCH ×2 (18:45)
[2020-01-26] MEDS ORDERED: Milk of Magnesia 30ml Ud GT PRN (18:45)
--- NOTE | 2020-01-26 19:09 | NUR ---
NURSE HAND-OFF: Important Events on Shift:[ADMISSION PROFILE DONE, ADMIT ORDERS, SKIN ASSESSMENTS DONE, SUPRAPUBIC CATH LEAKAGE, GTUBE INTACT, ] Patient Status: [NEW ADMIT] Diet: [GLUCERNA 1.2 @ 75CC/HR] Pending Orders: [LABS] Pending Results/Labs:[IN AM] Pending MD notification:[] Latest Vital Signs: Temperature 97.7 , Pulse 75 , B/P 135 /93 , Respiratory Rate 18 , O2 SAT 99 , Room Air, O2 Flow Rate . Vital Sign Comment: [] Latest Buck Fall Score: 70 Fall Risk: High Risk Safety Measures: Call light Within Reach, Bed Alarm Zone 2, Side Rails Side Rails x3, Bed position Low and Locked. Fall Precautions: Yellow Socks Yellow Gown Door Sign Patient Fall Education Report given to [ANTHONY].
--- NOTE | 2020-01-26 19:10 | NUR ---
NURSE NOTES: Received report from GLADYS Ramirez. Pt sleeping in bed, on room air. IV intact and running IVF. G tube intact and tolerating well without residual. Suprapubic cath attached to the bag is malfunction and pt is incontinent. Bed locked, lowest position, alarm on, side rails up, call light within reach. Will continue to monitor.
[2020-01-26] MEDS ORDERED: Varibar Thin Liquid powder 148gm MC PRN (19:30)
[2020-01-26] MEDS ORDERED: Varibar Nectar 240ml MC PRN (19:30)
[2020-01-26] MEDS ORDERED: Varibar Honey 250ml MC PRN (19:30)
[2020-01-26] MEDS ORDERED: Varibar Pudding 230ml MC PRN (19:30)
[2020-01-26] MEDS: D5 1/2NS 1,000 ML IV SCH (19:31)
[2020-01-26 20:00] VITALS: BP 99/65
[2020-01-26] MEDS ORDERED: Carvedilol 6.25mg Tab ORAL SCH (21:00)
[2020-01-26] MEDS ORDERED: Sennosides 8.6mg tab GT SCH ×2 (21:00)
[2020-01-26] MEDS ORDERED: NovoLOG Insulin Flexpen SUBQ SCH (21:00)
[2020-01-26] MEDS: NovoLOG Insulin Flexpen SUBQ SCH (21:00)
[2020-01-26] MEDS: Carvedilol 6.25mg Tab GT SCH (21:00)
[2020-01-26] MEDS: Heparin 5000 units/ml inj SUBQ SCH (21:32)
[2020-01-27] VITALS (7 sets, daily range): BP systolic 124–160; BP diastolic 69–90
[2020-01-27] MEDS: NovoLOG Insulin Flexpen SUBQ SCH ×4 (05:36→20:31)
--- NOTE | 2020-01-27 06:35 | NUR ---
NURSE HAND-OFF: Important Events on Shift:Refused accut check, supra pubic cath leaking Patient Status: stable Diet:Glucerna 1.2 75cc/hr Pending Orders: N Pending Results/Labs:AM labs Pending MD notification:N Latest Vital Signs: Temperature 97.0 , Pulse 63 , B/P 156 /90 , Respiratory Rate 16 , O2 SAT 96 , Room Air, O2 Flow Rate . Vital Sign Comment: [] Latest Buck Fall Score: 70 Fall Risk: High Risk Safety Measures: Call light Within Reach, Bed Alarm Zone 1, Side Rails Side Rails x2, Bed position Low and Locked. Fall Precautions: Yellow Socks Yellow Gown Door Sign Patient Fall Education Addendum: 01/27/20 at 4048 by ANTHONY TEJEDA RN RN HAND-OFF: Report given to
--- NOTE | 2020-01-27 08:00 | NUR ---
NURSE NOTES: Patient alert to name,patient able to say hello but after the response not talking .Respirations unlabored.patient has a supra pubic catheter,report given that catheter is leaking,skin care to be given.G-tube feedings as ordered,monitor residuals.IV fluids infusing as ordered.HOB is elevated.Bed alarm on,call light within reach.
--- NOTE | 2020-01-27 10:14 | NUR ---
Speech Pathology Note (Bedside Dysphagia Evaluation) Brief Note: Mr. Conti is a 59 year old male who is a resident of [facility] originally since 05/24/1989 with history of multiple hospitalization in the past. He re-admitted [facility] on 01/26/2020 from [facility] for indwelling suprapubic catheter malfunction. According [facility] admission and physician's order sheet, he is a PEG dependent with oropharyngeal dysphagia likely from CVA in the past. Otherwise his labs and vitals are all stable. Findings: Mr. Antoine is alert and oriented to self, "hospital" by nodding and shaking his head as well as via facial expression. He is able to comprehend and follow one step direction. His oral cavity is clear without mass or secretion. The voice is weak c.w significantly weak cough strength due to quad. The tracheostomy scar is noted with closure. Given him apple sauce and thick liquid, he tolerated without s.s of aspiration. Impression: Mr. Antoine presents with high risk of respiratory failure from aspiration, aspiration induced pneumonia due to quadriplegia with poor cough strength and low lung volume. He is tolerating on G tube feeding at 75cc/hr for calorie. He has oropharyngeal dysphagia without overt s.s of aspiration with clinical trials with me. He cognitive insights are not adequate for safety to manage aspiration precaution with inability to self feed. Safe PO return needs to be carefully monitored by his residency with team and care approach which always had been challenges in any society. Interpretation: 1. oropharyngeal dysphagia with aspiration risk from previous CVA 2. High risk of respiratory distress, failure with history of tracheostomy due to quadriplegia 3. Cognitive impairment for poor insights for safety from previous neurological issues 4. Tolerating on PEG feeding, suggestive for good motility Plan: 1. NPO for now -continue with [employer] while in house for safe PO trials 2. Positioning, aspiration precaution 3. Caregiver, staff support 4. Continue with G tube feeding Dayron Moore
[2020-01-27] MEDS: Heparin 5000 units/ml inj SUBQ SCH ×2 (10:37→20:34)
[2020-01-27] MEDS: Docusate 100mg/10ml Liq GT SCH (10:38)
[2020-01-27] MEDS: Ascorbic Acid 500mg tab GT SCH (10:38)
[2020-01-27] MEDS: Carvedilol 6.25mg Tab GT SCH ×2 (10:47→20:35)
--- NOTE | 2020-01-27 11:24 | NUR ---
P.T NOTE: CONSULT RECEIVED, P.T EVAL COMPLETED, PATIENT CURRENTLY DEPENDENT FOR ALL FUNCTIONAL MOBILITY. PATIENT AT BASELINE. RECOMMEND RETURN TO [facility], NO SKILLED NEEDS, DC PT ORDER.
--- NOTE | 2020-01-27 12:08 | Infectious Diseases Prog Note ---
Assessment/Plan Assessment: COVID19 neg x1 (01/25 rapid COVID PCR neg) Afebrile No leukocytosis Suprapubic cath malfunction- no current UTI at this point -01/25 ua no pyuria, nit +, leuk +3; ucx NTD hx of Sepsis 2ry to Morganella UTI and Proteus bacteremia 05/2019 -05/22 SP Suprapubic catheter exchange -u/a wbc 40-60, nit neg, leuk +3; Ucx >100k M. morganii (R amp, Ancef, cipro, bactrim; I Levaquin; otherwise S) -05/17 Bcx 07/11 P. mirabilis, probable AmpC (S Zosyn, Meropenem); 05/[address] abd/p: Cholelithiasis. Bilateral nephrolithiasis. Stones in the bilateral renal pelvises and proximal ureters. 5-6 mm stone in the left mid ureter. Mild-moderate obstructive changes. hx of Recurrent malfunctioning R nephrostomy tube -01/21/19 SP removal: Patent right ureter, without evidence of residual ureteral stone disease.Nephrostomy therefore no longer necessary, was removed -01/21/19 Renal US: Limited exam, with only visualization of the right kidney. Negative for right hydronephrosis. Echogenic right renal foci, may represent calculi or the patient's nephrostomy tube, favor the latter. -01/2019 u/a wbc 10-15, nit +, leuk +3; ucx >100k P. stuarti- S AMikacin, Ceftriaxone, Cefepime, Zosyn (likely colonizer) -01/03/19 SP replacement suprapubic catheter and R NT -12/13/18 SP NT exchange hx MRSA and proteus septic shock/bacteremia 10/2018 HTN COPD DVT Dm2 GERD paraplegia aphasia dysphagia s/p GT chronic respiratory failure s/p trach dependent recurrent UTIs CVA/TIA quadriplegia neurogenic bladder s/p suprapubic catheter [facility] resident ([facility]) CKD hx of MRSA and VRE colonization Plan: -Continue to monitor off abx unless febrile, leukocytosis, HD unstable -01/25 SP Cefepime x1 -f/u cx -Monitor CBC/CMP, temperatures -Uro eval Thank you for consulting [facility]. Will continue to follow along with you. Discussed wit RN. Subjective Allergies: Coded Allergies: VANCOMYCIN (Verified Allergy, Mild, Redness , 10/29/18) CIPROFLOXACIN (Verified Allergy, Unknown, 08/23/15) afebrile no leuckoytosis Objective Last 24 Hour Vital Signs Date Time Temp Pulse Resp B/P (MAP) Pulse Ox O2 Delivery O2 Flow Rate FiO2 01/27/20 10:47 69 126/83 01/27/20 10:29 Room Air 01/27/20 08:00 97.1 62 18 124/75 (91) 97 01/27/20 04:00 97.0 63 16 156/90 (112) 96 01/27/20 00:00 96.3 63 16 136/79 (98) 98 01/26/20 21:00 53 99/65 01/26/20 21:00 Room Air 01/26/20 20:00 96.8 53 16 99/65 (76) 94 01/26/20 18:09 Room Air 01/26/20 17:45 97.7 75 18 135/93 (107) 99 01/26/20 17:00 97.6 87 18 124/76 99 Room Air 01/26/20 16:49 97.6 82 16 130/80 98 Room Air 01/26/20 15:34 87 18 125/79 98 01/26/20 15:04 89 16 127/89 96 01/26/20 13:44 97.5 82 16 123/81 99 Room Air 01/26/20 13:33 97.5 68 18 126/88 (101) 97 Room Air Height (Feet): 6 Height (Inches): 0.00 Weight (Pounds): 199 General Appearance: no apparent distress, non-toxic, other - Chronically ill- appearing but is in no acute distress Head: normocephalic, atraumatic Eyes: bilateral eye normal inspection, bilateral eye PERRL ENT: hearing grossly normal, normal pharynx, no angioedema, normal voice Neck: full range of motion, supple/symm/no masses Respiratory: chest non-tender, lungs clear, normal breath sounds, speaking full sentences Cardiovascular #1: regular rate, rhythm, no edema Gastrointestinal: normal bowel sounds, non tender, soft, non-distended, no guarding, no rebound Microbiology Date/Time Source Procedure Growth Status 01/26/20 16:55 Urine,Clean Catch Urine Culture - Preliminary NO GROWTH Resulted 01/26/20 15:11 Nasopharynx SARS-CoV-2 RdRp Gene Assay - Final Complete Laboratory Tests Test 01/26/20 15:15 01/26/20 16:55 01/26/20 21:26 White Blood Count 7.4 K/UL (4.8-10.8) Red Blood Count 5.08 M/UL (4.70-6.10) Hemoglobin 14.2 G/DL (14.2-18.0) Hematocrit 44.1 % (42.0-52.0) Mean Corpuscular Volume 87 FL (80-99) Mean Corpuscular Hemoglobin 27.9 PG (27.0-31.0) Mean Corpuscular Hemoglobin Concent 32.1 G/DL (32.0-36.0) Red Cell Distribution Width 15.5 % (11.6-14.8) H Platelet Count 212 K/UL (150-450) Mean Platelet Volume 9.5 FL (6.5-10.1) Neutrophils (%) (Auto) 51.6 % (45.0-75.0) Lymphocytes (%) (Auto) 33.7 % (20.0-45.0) Monocytes (%) (Auto) 7.6 % (1.0-10.0) Eosinophils (%) (Auto) 5.3 % (0.0-3.0) H Basophils (%) (Auto) 1.8 % (0.0-2.0) Sodium Level 138 MMOL/L (136-145) Potassium Level 4.0 MMOL/L (3.5-5.1) Chloride Level 101 MMOL/L (98-107) Carbon Dioxide Level 30 MMOL/L (21-32) Anion Gap 7 mmol/L (5-15) Blood Urea Nitrogen 21 mg/dL (7-18) H Creatinine 0.8 MG/DL (0.55-1.30) Estimat Glomerular Filtration Rate > 60 mL/min (>60) Glucose Level 101 MG/DL (74-106) Calcium Level 8.9 MG/DL (8.5-10.1) Total Bilirubin 0.4 MG/DL (0.2-1.0) Aspartate Amino Transf (AST/SGOT) 15 U/L (15-37) Alanine Aminotransferase (ALT/SGPT) 11 U/L (12-78) L Alkaline Phosphatase 83 U/L (46-116) Total Protein 7.7 G/DL (6.4-8.2) Albumin 3.2 G/DL (3.4-5.0) L Globulin 4.5 g/dL Albumin/Globulin Ratio 0.7 (1.0-2.7) L Urine Color Pale yellow Urine Appearance Turbid Urine pH 9 (4.5-8.0) Urine Specific [place] 1.010 (1.005-1.035) Urine Protein 3+ (NEGATIVE) H Urine Glucose (UA) Negative (NEGATIVE) Urine Ketones Negative (NEGATIVE) Urine Blood Negative (NEGATIVE) Urine Nitrite Positive (NEGATIVE) H Urine Bilirubin Negative (NEGATIVE) Urine Urobilinogen Normal MG/DL (0.0-1.0) Urine Leukocyte Esterase 3+ (NEGATIVE) H Urine RBC 0-2 /HPF (0 - 0) H Urine WBC 0 /HPF (0 - 0) Urine Squamous Epithelial Cells None /LPF (NONE/OCC) Urine Triple Phosphate Crystals Many /LPF (NONE) H Urine Amorphous Sediment Many /LPF (NONE) H Urine Bacteria Many /HPF (NONE) H POC Whole Blood Glucose Pending Current Medications Medications (Trade) Dose Ordered Sig/Fab Route PRN Reason Start Time Stop Time Status Last Admin Dose Admin Acetaminophen (Tylenol) 650 mg Q4H PRN GT Mild Pain (Pain Scale 1-3) 01/26/20 18:45 02/25/20 18:44 Acetaminophen (Tylenol) 650 mg Q4H PRN GT Moderate Pain (Pain Scale 4-6) 01/26/20 18:45 02/25/20 18:44 Ascorbic Acid (Vitamin C) 500 mg DAILY GT 01/27/20 09:00 02/26/20 08:59 01/27/20 10:38 Barium Sulfate (Varibar Honey) 250 ml NOW PRN MC RAD 01/26/20 19:30 01/29/20 19:22 Barium Sulfate (Varibar [place]) 240 ml NOW PRN MC RAD 01/26/20 19:30 01/29/20 19:22 Barium Sulfate (Varibar Pudding) 230 ml NOW PRN MC RAD 01/26/20 19:30 01/29/20 19:22 Barium Sulfate (Varibar Thin Liquid powder) 148 gm NOW PRN MC RAD 01/26/20 19:30 01/29/20 19:22 Bisacodyl (Dulcolax) 10 mg DAILYPRN PRN RECTAL Constipation 01/26/20 18:45 04/25/20 18:44 Carvedilol (Coreg) 6.25 mg EVERY 12 HOURS GT 01/26/20 21:00 02/25/20 20:59 01/27/20 10:47 Dextrose (Dextrose 50%) 25 ml Q30M PRN IV Hypoglycemia 01/26/20 19:00 04/25/20 18:59 Dextrose (Dextrose 50%) 50 ml Q30M PRN IV Hypoglycemia 01/26/20 19:00 04/25/20 18:59 Dextrose/Sodium Chloride 1,000 ml @ 60 mls/hr [id number] IV 01/26/20 18:45 02/25/20 18:44 01/26/20 19:31 Docusate Sodium (Colace) 250 mg DAILY GT 01/27/20 09:00 02/26/20 08:59 01/27/20 10:38 Heparin Sodium (Porcine) (Heparin 5000 units/ml) 5,000 units EVERY 12 HOURS SUBQ 01/26/20 21:00 03/11/20 20:59 01/27/20 10:37 Insulin Aspart (NovoLOG) BEFORE MEALS AND HS SUBQ 01/26/20 21:00 04/25/20 20:59 Lansoprazole (Prevacid) 30 mg BID GT 01/26/20 21:00 02/25/20 20:59 01/27/20 10:38 Magnesium Hydroxide (Mom) 30 ml QHS PRN GT Constipation 01/26/20 18:45 02/25/20 18:44 Sodium Phosphate (Fleet's Sodium Phosl Enema) 133 ml QOD PRN RECTAL Constipation 01/26/20 18:45 02/25/20 18:44 Dorothea Macario M.D. Jan 27, 2020 12:08
--- NOTE | 2020-01-27 12:22 | NUR ---
RD ASSESSMENT & RECOMMENDATIONS SEE CARE ACTIVITY FOR COMPLETE ASSESSMENT DAILY ESTIMATED NEEDS: Needs based on obese, bedbound, TF [employer]/ 75.8kg abw 23-28 kcals/kg 7129-3647 total kcals 1.25-1.5 g protein/kg 95-114 g total protein 25-30 mL/kg 4973-8706 total fluid mLs NUTRITION DIAGNOSIS: * Swallowing difficulty related to dysphagia s/p cva as evidenced by pt dependent on PEG for all nutrition and hydration needs. * Increased kcal/prot needs R/T wound healing as evidenced by admitted w/ non-blanching erythema with shearing sacrum and R buttocks. CURRENT TF: Glucerna 1.2 @75 ENTERAL NUTRITION RECOMMENDATIONS: Glucerna 1.5 @ 50ml/hr x 24 hrs to provide 1200ml, 1800kcal, 99g prot, 911ml free water * Rec TF change to [employer] TF of Glucerna 1.5 to best meet est needs * Initiate TF @ 30ml/hr x 6 hrs, advance 10ml q 4-6 hrs as tolerated to goal * HOB over 30 degrees/ water flush per MD ADDITIONAL RECOMMENDATIONS: 1) Calibrated bedscale wt for accurate CBW 2) WC: Stone 1pkt BID (mix w/ 4oz water); f/up w/ eval 3) Monitor lytes, replete as needed 4) H/o DM, rec checking BG, niss as needed 5) Check A1C for eval of glycemic control . .
--- NOTE | 2020-01-27 15:25 | NUR ---
CASE MANAGEMENT:INITIAL REVIEW 59 YR OLD MALE BIBA FROM [facility] CC;MALE UROGENITAL PROBLEMS SI;CATHETER DYSFUNCTION. UTI. 98.7 89 18 127/89 96% ON RA BUN 21 ALB 3.2 UA+ PROTEIN, NITRITE, LEUKOCYTE ESTERASE, RBC, TRIPLE PHOS CRYSTALS, AMORPHOUS SEDIMENT, BACTERIA CURINE CX ~ NEGATIVE IS;ATIVAN IM ONCE IVF D5NS CEFEPIME IV ADMITTED TO MED SURG MED SURG STATUS DCP;FROM [facility] CONV
[2020-01-27 17:58] LABS: BASOPHILS % (AUTO) 1.9 % (0.0-2.0); EOSINOPHILS % (AUTO) 5.5 % (0.0-3.0); HEMATOCRIT 46.6 % (42.0-52.0); HEMOGLOBIN 15.1 G/DL (14.2-18.0); LYMPHOCYTES % (AUTO) 32.8 % (20.0-45.0); MEAN CORPUSCULAR VOLUME 87 FL (80-99); MONOCYTES % (AUTO) 6.4 % (1.0-10.0); NEUTROPHILS % (AUTO) 53.5 % (45.0-75.0); PLATELET COUNT 207 K/UL (150-450); RED BLOOD COUNT 5.37 M/UL (4.70-6.10); RED CELL DISTRIBUTION WIDTH 15.7 % (11.6-14.8); WHITE BLOOD COUNT 7.4 K/UL (4.8-10.8)
--- NOTE | 2020-01-27 18:00 | NUR ---
NURSE NOTES: Skin care given.Supra Pubic catheter leaking.turned and position.patient tolerating G-tube feedings,scant residual noted.Bed alarm on.
[2020-01-27 18:12] LABS: ANION GAP 6 mmol/L (5-15); BLOOD UREA NITROGEN 22 mg/dL (7-18); CALCIUM 8.8 MG/DL (8.5-10.1); CARBON DIOXIDE 27 MMOL/L (21-32); CHLORIDE 102 MMOL/L (98-107); CREATININE 0.8 MG/DL (0.55-1.30); SODIUM 135 MMOL/L (136-145)
[2020-01-27] MEDS: D5 1/2NS 1,000 ML IV SCH (18:12)
--- NOTE | 2020-01-27 19:35 | NUR ---
NURSE HAND-OFF: Arabella CHRISTOPHER Important Events on Shift:[] Patient Status: [] Diet: [Glucerna 1.2 at 75cc/hr] hold for residual >than 100.H2o flush Pending Orders: [] Pending Results/Labs:[] Pending MD notification:[] Latest Vital Signs: Temperature , Pulse 66 , B/P / , Respiratory Rate , O2 SAT , Room Air, O2 Flow Rate . Vital Sign Comment: [] Latest Buck Fall Score: 70 Fall Risk: High Risk Safety Measures: Call light Within Reach, Bed Alarm Zone 1, Side Rails Side Rails x2, Bed position Low and Locked. Fall Precautions: Yellow Socks Y Yellow Gown Door Sign Y Patient Fall Education bed alarm Report given to [].
--- NOTE | 2020-01-27 19:49 | NUR ---
NURSE NOTES: Received report from CANDI Tang. Pt resting in bed, on room air. IV intact and running IVF. G tube intact and tolerating well without residual. HOB elevated. Suprapubic cath attached to the bag is malfunction and urine is leaking around the cath. Bed locked, lowest position, alarm on, side rails up, call light within reach. Will continue to monitor.
--- NOTE | 2020-01-27 20:00 | History and Physical Report ---
DATE OF ADMISSION: 01/26/2020 DATE AND TIME SEEN: 01/27/2020 at 1 p.m. CONSULTANTS: 1. Dr. Cabrera. 2. Dr. Funk. CHIEF COMPLAINT: Malfunctioning suprapubic catheter, UTI. BRIEF HISTORY: This is a 59-year-old male from [facility], who presented with above-mentioned diagnosis with suprapubic catheter leaking at the facility. The patient was diagnosed with the above and admitted to medical floor. Currently calm in bed, confused, not talking much, in bed. REVIEW OF SYSTEMS: Unavailable. PAST MEDICAL HISTORY: Diabetes, CVA, encephalopathy, COPD, anemia, renal failure. PAST SURGICAL HISTORY: Suprapubic catheter. MEDICATIONS: , ascorbic acid, insulin, lansoprazole, carvedilol, heparin, magnesium, Tylenol, cefepime, and lorazepam. ALLERGIES: Cipro and vancomycin. SOCIAL HISTORY: No smoking. No alcohol. No intravenous drug abuse. FAMILY HISTORY: Noncontributory. PHYSICAL EXAMINATION: GENERAL: Confused in bed, nonverbal. VITAL SIGNS: Temperature 97, pulse 76, respirations 19, blood pressure 132/89. CARDIOVASCULAR: No murmur. LUNGS: Distant and clear. ABDOMEN: Bowel sound positive. Nontender. Nondistended. EXTREMITIES: No cyanosis or edema. NEUROLOGIC: The patient is flaccid in bed, not following directions. LABORATORY AND DIAGNOSTIC DATA: Labs at this time show CBC is normal. BMP shows BUN 21, otherwise normal. Albumin 3.2. Urinalysis shows 3+ leukocyte esterase. ASSESSMENT: 1. Malfunctioning suprapubic catheter. 2. UTI. 3. Malnutrition. 4. Renal failure. 5. Anemia. 6. COPD. 7. Diabetes. 8. CVA. 9. Encephalopathy. PLAN: Resume home medications. Urology followup to adjust suprapubic catheter. Antibiotics per Infectious Disease. IV fluids. Blood sugar control. CBC, BMP in morning. Jaylen Bear D.O. DR: IGGY JOB#: [id number] CC:
[2020-01-27] MEDS ORDERED: HUMALOG100 UNIT/3 SUBQ (20:08)
[2020-01-27] MEDS ORDERED: PANTOPRAZOLE SO40 MG GT (20:08)
[2020-01-27] MEDS ORDERED: MULTI-DAY PLUS1 EAC1 GT (20:08)
[2020-01-27] MEDS ORDERED: LACTULOSE20 GM/301 GT (20:08)
[2020-01-27] MEDS ORDERED: OXYBUTYNIN CHLOR5 M1 GT (20:08)
[2020-01-28] VITALS: BP 131/86
[2020-01-28 04:00] VITALS: BP 121/92
[2020-01-28] MEDS: D5 1/2NS 1,000 ML IV SCH ×2 (05:12→20:22)
[2020-01-28] MEDS: NovoLOG Insulin Flexpen SUBQ SCH ×4 (05:35→20:22)
--- NOTE | 2020-01-28 05:36 | NUR ---
NURSE NOTES: Pt vomited x 2. Tube feeding stopped and residual 0cc noted. Left message Dr. Bear and awaiting call back Addendum: 01/28/20 at 0546 by ANTHONY TEJEDA RN RN NURSE NOTES: Received order Zofran 4mg IVP q4 prn nausea,vomiting. Left message Dr. Faust as well
--- NOTE | 2020-01-28 06:35 | NUR ---
NURSE HAND-OFF: Important Events on Shift:vomiting x 2, stopped tube feeding @ 0400 Patient Status: stable Diet: Glucerna 1.2 Pending Orders: ST eval, wound eval, and PT eval today Pending Results/Labs:AM labs Pending MD notification:Dr. Faust regarding vomiting and awaiting call back Latest Vital Signs: Temperature 96.8 , Pulse 85 , B/P 121 /92 , Respiratory Rate 20 , O2 SAT 97 , Room Air, O2 Flow Rate . Vital Sign Comment: [] Latest Buck Fall Score: 70 Fall Risk: High Risk Safety Measures: Call light Within Reach, Bed Alarm Zone 1, Side Rails Side Rails x2, Bed position Low and Locked. Fall Precautions: Yellow Socks Yellow Gown Door Sign Patient Fall Education Addendum: 01/28/20 at 0714 by ANTHONY TEJEDA RN RN HAND-OFF: Report given to Nazia. Found pt pulled IV when rounding. Endorsed AM nurse
--- NOTE | 2020-01-28 07:13 | NUR ---
NURSE NOTES: Report received from CANDI Bell. Patient in bed, awake, alert and oriented x 1-2 with confusion, no SOB, bed in lowest position with breaks engaged and alarm on, denies any pain at this time, on room air, GT and suprapubic catheter in place, will continue to monitor and proceed with plan of care, call light within reach
[2020-01-28 08:00] VITALS: BP 114/80
[2020-01-28] MEDS: Ascorbic Acid 500mg tab GT SCH (08:29)
[2020-01-28] MEDS: Docusate 100mg/10ml Liq GT SCH (08:29)
[2020-01-28] MEDS: Heparin 5000 units/ml inj SUBQ SCH ×2 (08:30→20:22)
[2020-01-28] MEDS: Carvedilol 6.25mg Tab GT SCH ×2 (08:30→20:21)
--- NOTE | 2020-01-28 09:40 | General Progress Note ---
Subjective Constitutional: Reports: weakness Allergies: Coded Allergies: VANCOMYCIN (Verified Allergy, Mild, Redness , 10/29/18) CIPROFLOXACIN (Verified Allergy, Unknown, 08/23/15) All Systems: reviewed and negative except above Subjective calm in bed Objective Last 24 Hour Vital Signs Date Time Temp Pulse Resp B/P (MAP) Pulse Ox O2 Delivery O2 Flow Rate FiO2 01/28/20 08:30 80 114/80 01/28/20 08:00 97.7 80 20 114/80 (91) 97 01/28/20 04:00 96.8 85 20 121/92 (102) 97 01/28/20 00:00 97.9 70 20 131/86 (101) 96 01/27/20 21:00 Room Air 01/27/20 20:35 74 128/90 01/27/20 20:00 97.5 79 18 130/82 (98) 94 01/27/20 17:55 66 () 01/27/20 16:00 97.1 66 21 133/89 (104) 97 01/27/20 12:00 97.1 76 19 132/89 (103) 99 01/27/20 10:47 69 126/83 01/27/20 10:29 Room Air Intake and Output 01/27/20 01/28/20 19:00 07:00 Intake Total 1680 ml 1460 ml Balance 1680 ml 1460 ml Intake Free Water 300 ml 200 ml IV Total 480 ml 660 ml Tube Feeding 900 ml 600 ml Laboratory Tests 01/27/20 17:00: White Blood Count 7.4, Red Blood Count 5.37, Hemoglobin 15.1, Hematocrit 46.6, Mean Corpuscular Volume 87, Mean Corpuscular Hemoglobin 28.2, Mean Corpuscular Hemoglobin Concent 32.5, Red Cell Distribution Width 15.7H, Platelet Count 207, Mean Platelet Volume 12.0H, Neutrophils (%) (Auto) 53.5, Lymphocytes (%) (Auto) 32.8, Monocytes (%) (Auto) 6.4, Eosinophils (%) (Auto) 5.5H, Basophils (%) (Auto) 1.9, Sodium Level 135L, Potassium Level 4.0, Chloride Level 102, Carbon Dioxide Level 27, Anion Gap 6, Blood Urea Nitrogen 22H, Creatinine 0.8, Estimat Glomerular Filtration Rate > 60, Glucose Level 96, Calcium Level 8.8 01/27/20 18:05: POC Whole Blood Glucose [Pending] 01/27/20 20:31: POC Whole Blood Glucose 112H 01/28/20 05:05: POC Whole Blood Glucose 130H Height (Feet): 6 Height (Inches): 0.00 Weight (Pounds): 199 General Appearance: lethargic EENT: normal ENT inspection Neck: normal alignment Cardiovascular: normal peripheral pulses, normal rate, regular rhythm Respiratory/Chest: chest wall non-tender, lungs clear, normal breath sounds Abdomen: normal bowel sounds, non tender, soft Extremities: normal inspection Edema: no edema noted Arm (L), no edema noted Arm (R), no edema noted Leg (L), no edema noted Leg (R), no edema noted Pedal (L), no edema noted Pedal (R), no edema noted Generalized Neurologic: motor weakness Skin: normal pigmentation, warm/dry Assessment/Plan Problem List: (1) Renal failure (ARF), acute on chronic ICD Codes: N17.9 - Acute kidney failure, unspecified; N18.9 - Chronic kidney disease, unspecified SNOMED: 568319807 (2) COPD (chronic obstructive pulmonary disease) ICD Codes: J44.9 - Chronic obstructive pulmonary disease, unspecified SNOMED: 31159348 (3) Diabetes mellitus ICD Codes: E11.9 - Type 2 diabetes mellitus without complications SNOMED: 07407657 (4) UTI (urinary tract infection) ICD Codes: N39.0 - Urinary tract infection, site not specified SNOMED: 09775369 (5) History of CVA (cerebrovascular accident) ICD Codes: Z86.73 - Personal history of transient ischemic attack (TIA), and cerebral infarction without residual deficits SNOMED: 930945820 (6) Suprapubic catheter dysfunction ICD Codes: T83.010A - Breakdown (mechanical) of cystostomy catheter, initial encounter SNOMED: 513690041 Status: unchanged Assessment/Plan: abx pt diet eval cbc bmp am uro f/u Jaylen Bear DO Jan 28, 2020 09:40
[2020-01-28 12:00] VITALS: BP 135/79
--- NOTE | 2020-01-28 12:30 | NUR ---
NURSE NOTES: Patient noted wit IV out, patient refuses IV line insertion at this time, tried 3x with charge nurse, pt became upset and agitated. Will continue to encourage. No IV line at this time, MD Bear aware.
--- NOTE | 2020-01-28 13:21 | Infectious Diseases Prog Note ---
Assessment/Plan Assessment: COVID19 neg x1 (01/25 rapid COVID PCR neg) Afebrile No leukocytosis Suprapubic cath malfunction- no current UTI at this point -01/25 ua no pyuria, nit +, leuk +3; ucx represents colonization Organism 1 STREP SPECIES, GAMMA-HEMOLYTIC COLONY COUNT: >100,000 CFU/ML Organism 2 GRAM POSITIVE COCCI COLONY COUNT: 30,000 - 40,000 CFU/ML Organism 3 GRAM NEGATIVE OSWALDO COLONY COUNT: <10,000 CFU/ML hx of Sepsis 2ry to Morganella UTI and Proteus bacteremia 05/2019 -05/22 SP Suprapubic catheter exchange -u/a wbc 40-60, nit neg, leuk +3; Ucx >100k M. morganii (R amp, Ancef, cipro, bactrim; I Levaquin; otherwise S) -05/17 Bcx 07/11 P. mirabilis, probable AmpC (S Zosyn, Meropenem); 05/[address] abd/p: Cholelithiasis. Bilateral nephrolithiasis. Stones in the bilateral renal pelvises and proximal ureters. 5-6 mm stone in the left mid ureter. Mild-moderate obstructive changes. hx of Recurrent malfunctioning R nephrostomy tube -01/21/19 SP removal: Patent right ureter, without evidence of residual ureteral stone disease.Nephrostomy therefore no longer necessary, was removed -01/21/19 Renal US: Limited exam, with only visualization of the right kidney. Negative for right hydronephrosis. Echogenic right renal foci, may represent calculi or the patient's nephrostomy tube, favor the latter. -01/2019 u/a wbc 10-15, nit +, leuk +3; ucx >100k P. stuarti- S AMikacin, Ceftriaxone, Cefepime, Zosyn (likely colonizer) -01/03/19 SP replacement suprapubic catheter and R NT -12/13/18 SP NT exchange hx MRSA and proteus septic shock/bacteremia 10/2018 HTN COPD DVT Dm2 GERD paraplegia aphasia dysphagia s/p GT chronic respiratory failure s/p trach dependent recurrent UTIs CVA/TIA quadriplegia neurogenic bladder s/p suprapubic catheter NH resident ([facility]) CKD hx of MRSA and VRE colonization Plan: -Continue to monitor off abx unless febrile, leukocytosis, HD unstable -01/25 SP Cefepime x1 -f/u cx -Monitor CBC/CMP, temperatures -Uro eval Thank you for consulting [facility]. Will continue to follow along with you. Leslie jean RN. Subjective Allergies: Coded Allergies: VANCOMYCIN (Verified Allergy, Mild, Redness , 10/29/18) CIPROFLOXACIN (Verified Allergy, Unknown, 08/23/15) afebrile no leuckoytosis Objective Last 24 Hour Vital Signs Date Time Temp Pulse Resp B/P (MAP) Pulse Ox O2 Delivery O2 Flow Rate FiO2 01/28/20 12:00 97.4 67 20 135/79 (97) 96 01/28/20 09:00 Room Air 01/28/20 08:30 80 114/80 01/28/20 08:00 97.7 80 20 114/80 (91) 97 01/28/20 04:00 96.8 85 20 121/92 (102) 97 01/28/20 00:00 97.9 70 20 131/86 (101) 96 01/27/20 21:00 Room Air 01/27/20 20:35 74 128/90 01/27/20 20:00 97.5 79 18 130/82 (98) 94 01/27/20 17:55 66 () 01/27/20 16:00 97.1 66 21 133/89 (104) 97 Height (Feet): 6 Height (Inches): 0.00 Weight (Pounds): 199 General Appearance: no apparent distress, non-toxic, other - Chronically ill- appearing but is in no acute distress Head: normocephalic, atraumatic Eyes: bilateral eye normal inspection, bilateral eye PERRL ENT: hearing grossly normal, normal pharynx, no angioedema, normal voice Neck: full range of motion, supple/symm/no masses Respiratory: chest non-tender, lungs clear, normal breath sounds, speaking full sentences Cardiovascular #1: regular rate, rhythm, no edema Gastrointestinal: normal bowel sounds, non tender, soft, non-distended, no guarding, no rebound Microbiology Date/Time Source Procedure Growth Status 01/26/20 16:55 Urine,Clean Catch Urine Culture - Preliminary Strep Species, Gamma-Hemolytic Gram Positive Cocci Gram Negative Oswaldo Resulted 01/26/20 15:11 Nasopharynx SARS-CoV-2 RdRp Gene Assay - Final Complete Laboratory Tests Test 01/27/20 17:00 01/27/20 18:05 01/27/20 20:31 01/28/20 05:05 White Blood Count 7.4 K/UL (4.8-10.8) Red Blood Count 5.37 M/UL (4.70-6.10) Hemoglobin 15.1 G/DL (14.2-18.0) Hematocrit 46.6 % (42.0-52.0) Mean Corpuscular Volume 87 FL (80-99) Mean Corpuscular Hemoglobin 28.2 PG (27.0-31.0) Mean Corpuscular Hemoglobin Concent 32.5 G/DL (32.0-36.0) Red Cell Distribution Width 15.7 % (11.6-14.8) H Platelet Count 207 K/UL (150-450) Mean Platelet Volume 12.0 FL (6.5-10.1) H Neutrophils (%) (Auto) 53.5 % (45.0-75.0) Lymphocytes (%) (Auto) 32.8 % (20.0-45.0) Monocytes (%) (Auto) 6.4 % (1.0-10.0) Eosinophils (%) (Auto) 5.5 % (0.0-3.0) H Basophils (%) (Auto) 1.9 % (0.0-2.0) Sodium Level 135 MMOL/L (136-145) L Potassium Level 4.0 MMOL/L (3.5-5.1) Chloride Level 102 MMOL/L (98-107) Carbon Dioxide Level 27 MMOL/L (21-32) Anion Gap 6 mmol/L (5-15) Blood Urea Nitrogen 22 mg/dL (7-18) H Creatinine 0.8 MG/DL (0.55-1.30) Estimat Glomerular Filtration Rate > 60 mL/min (>60) Glucose Level 96 MG/DL (74-106) Calcium Level 8.8 MG/DL (8.5-10.1) POC Whole Blood Glucose Pending 112 MG/DL (74-106) H 130 MG/DL (74-106) H Test 01/28/20 11:32 POC Whole Blood Glucose 111 MG/DL (74-106) H Current Medications Medications (Trade) Dose Ordered Sig/Fab Route PRN Reason Start Time Stop Time Status Last Admin Dose Admin Acetaminophen (Tylenol) 650 mg Q4H PRN GT Mild Pain (Pain Scale 1-3) 01/26/20 18:45 02/25/20 18:44 Acetaminophen (Tylenol) 650 mg Q4H PRN GT Moderate Pain (Pain Scale 4-6) 01/26/20 18:45 02/25/20 18:44 Ascorbic Acid (Vitamin C) 500 mg DAILY GT 01/27/20 09:00 02/26/20 08:59 01/28/20 08:29 Barium Sulfate (Varibar Honey) 250 ml NOW PRN MC RAD 01/26/20 19:30 01/29/20 19:22 Barium Sulfate (Varibar [place]) 240 ml NOW PRN MC RAD 01/26/20 19:30 01/29/20 19:22 Barium Sulfate (Varibar Pudding) 230 ml NOW PRN MC RAD 01/26/20 19:30 01/29/20 19:22 Barium Sulfate (Varibar Thin Liquid powder) 148 gm NOW PRN MC RAD 01/26/20 19:30 01/29/20 19:22 Bisacodyl (Dulcolax) 10 mg DAILYPRN PRN RECTAL Constipation 01/26/20 18:45 04/25/20 18:44 Carvedilol (Coreg) 6.25 mg EVERY 12 HOURS GT 01/26/20 21:00 02/25/20 20:59 01/28/20 08:30 Dextrose (Dextrose 50%) 25 ml Q30M PRN IV Hypoglycemia 01/26/20 19:00 04/25/20 18:59 Dextrose (Dextrose 50%) 50 ml Q30M PRN IV Hypoglycemia 01/26/20 19:00 04/25/20 18:59 Dextrose/Sodium Chloride 1,000 ml @ 60 mls/hr [id number] IV 01/26/20 18:45 02/25/20 18:44 01/28/20 05:12 Docusate Sodium (Colace) 250 mg DAILY GT 01/27/20 09:00 02/26/20 08:59 01/28/20 08:29 Heparin Sodium (Porcine) (Heparin 5000 units/ml) 5,000 units EVERY 12 HOURS SUBQ 01/26/20 21:00 03/11/20 20:59 01/28/20 08:30 Insulin Aspart (NovoLOG) BEFORE MEALS AND HS SUBQ 01/26/20 21:00 04/25/20 20:59 Lansoprazole (Prevacid) 30 mg BID GT 01/26/20 21:00 02/25/20 20:59 01/28/20 08:30 Magnesium Hydroxide (Mom) 30 ml QHS PRN GT Constipation 01/26/20 18:45 02/25/20 18:44 Ondansetron HCl (Zofran) 4 mg Q4H PRN IVP Nausea & Vomiting 01/28/20 05:45 02/27/20 05:44 01/28/20 06:11 Sodium Phosphate (Fleet's Sodium Phosl Enema) 133 ml QOD PRN RECTAL Constipation 01/26/20 18:45 02/25/20 18:44 Dorothea Macario M.D. Jan 28, 2020 13:21
[2020-01-28 16:00] VITALS: BP 121/84
--- NOTE | 2020-01-28 16:31 | NUR ---
CASE MANAGEMENT:REVIEW SI;CATHETER DYSFUNCTION. RENAL FAILURE. UTI. 98.1 92 20 135/79 135/79 96% ON RA IS;ZOFRAN IV Q4 PRN PREVACID GT BID COREG GT Q12 IVF D5NS @ 60 ML/HR MED SURG STATUS DCP;FROM [facility]
--- NOTE | 2020-01-28 16:58 | NUR ---
NURSE NOTES: Called Dr. Funk's office today to ff up on consult and as per alumnae secretary, MD is out of office today and doing surgeries. Will cont to ff up.
--- NOTE | 2020-01-28 19:32 | NUR ---
NURSE HAND-OFF: Important Events on Shift:[awaiting urology consult, turning and repositioning] Patient Status: [stable] Diet: [Glucerna 1.2 at 75 cc/hr] Pending Orders: [] Pending Results/Labs:[] Pending MD notification:[] Latest Vital Signs: Temperature 98.1 , Pulse 92 , B/P 121 /84 , Respiratory Rate 20 , O2 SAT 96 , Room Air, O2 Flow Rate . Vital Sign Comment: [] Latest Buck Fall Score: 70 Fall Risk: High Risk Safety Measures: Call light Within Reach, Bed Alarm Zone 1, Side Rails Side Rails x2, Bed position Low and Locked. Fall Precautions: Yellow Socks Yellow Gown Door Sign Patient Fall Education Report given to [CANDI Tariq].
--- NOTE | 2020-01-28 19:55 | NUR ---
NURSE NOTES: Received patient awake, non-verbal, tolerating his g-tube feeding well. Kept clean and dry.
[2020-01-28 20:17] VITALS: BP 125/81
[2020-01-29 00:15] VITALS: BP 153/55
[2020-01-29 04:00] VITALS: BP 123/78
[2020-01-29] MEDS: NovoLOG Insulin Flexpen SUBQ SCH ×4 (06:19→20:52)
[2020-01-29 06:48] LABS: ANION GAP 8 mmol/L (5-15); BLOOD UREA NITROGEN 19 mg/dL (7-18); CALCIUM 9.2 MG/DL (8.5-10.1); CARBON DIOXIDE 31 MMOL/L (21-32); CHLORIDE 104 MMOL/L (98-107); POTASSIUM 3.7 MMOL/L (3.5-5.1); SODIUM 143 MMOL/L (136-145)
--- NOTE | 2020-01-29 07:15 | NUR ---
HAND-OFF: Report given to Jorge Ac RN.
[2020-01-29 07:34] LABS: BASOPHILS % (AUTO) 1.6 % (0.0-2.0); EOSINOPHILS % (AUTO) 4.7 % (0.0-3.0); HEMATOCRIT 47.1 % (42.0-52.0); HEMOGLOBIN 14.9 G/DL (14.2-18.0); LYMPHOCYTES % (AUTO) 39.8 % (20.0-45.0); MEAN CORPUSCULAR VOLUME 87 FL (80-99); MONOCYTES % (AUTO) 8.6 % (1.0-10.0); NEUTROPHILS % (AUTO) 45.3 % (45.0-75.0); PLATELET COUNT 225 K/UL (150-450); RED BLOOD COUNT 5.41 M/UL (4.70-6.10); RED CELL DISTRIBUTION WIDTH 15.5 % (11.6-14.8)
[2020-01-29 08:00] VITALS: BP 110/64
--- NOTE | 2020-01-29 08:05 | NUR ---
NURSE NOTES: PT AXOX1 (NAME). OPENS EYES SPONTANEOUSLY. PT ONLY ANSWERS "YES" OR "NO" TO RN'S QUESTIONS. GTF GLUCERNA 1.2 RUNNING AT 75ML/HR. NO RESIDUAL NOTED. PT IN HIGH AGUILAR'S POSITION FOR ASPIRATION PRECAUTIONS. PT'S SUPRAPUBIC CATH NOTED TO BE LEAKING. AWAITING UROLOGY CONSULT. BED IN LOWEST POSITION WITH BEDSIDE RAILS X3 RAISED. BED ALARM ON ZONE 1. PT EDUCATED ON HOW TO USE CALL LIGHT FOR ASSISTANCE. PT NODDED HIS HEAD. WILL CONTINUE TO MONITOR.
[2020-01-29] MEDS: Ascorbic Acid 500mg tab GT SCH (08:58)
[2020-01-29] MEDS: Carvedilol 6.25mg Tab GT SCH ×2 (08:58→20:46)
[2020-01-29] MEDS: Docusate 100mg/10ml Liq GT SCH (08:58)
[2020-01-29] MEDS: Heparin 5000 units/ml inj SUBQ SCH ×2 (09:13→20:47)
--- NOTE | 2020-01-29 11:46 | NUR ---
NURSE NOTES: RN LEFT MESSAGE FOR DR GROSSMAN REGARDING NEW CONSULT FOR MALFUNCTIONING SUPRAPUBIC CATHETER.
[2020-01-29 12:00] VITALS: BP 119/77
--- NOTE | 2020-01-29 12:17 | General Progress Note ---
Subjective Constitutional: Reports: weakness Allergies: Coded Allergies: VANCOMYCIN (Verified Allergy, Mild, Redness , 10/29/18) CIPROFLOXACIN (Verified Allergy, Unknown, 08/23/15) All Systems: reviewed and negative except above Subjective calm in bed Objective Last 24 Hour Vital Signs Date Time Temp Pulse Resp B/P (MAP) Pulse Ox O2 Delivery O2 Flow Rate FiO2 01/29/20 09:00 Room Air 01/29/20 08:58 62 110/64 01/29/20 08:00 98.9 62 18 110/64 (79) 96 01/29/20 04:00 97.2 74 20 123/78 (93) 96 01/29/20 00:15 97.0 83 20 153/55 (87) 97 01/28/20 20:39 Room Air 01/28/20 20:21 69 125/81 01/28/20 20:17 97.2 69 18 125/81 (96) 96 01/28/20 16:00 98.1 92 20 121/84 (96) 96 Intake and Output 01/28/20 01/29/20 19:00 07:00 Intake Total 1125 ml 665 ml Output Total 300 ml Balance 1125 ml 365 ml Intake Free Water 300 ml 140 ml Tube Feeding 825 ml 525 ml Output Urine Total 300 ml Laboratory Tests 01/28/20 16:14: POC Whole Blood Glucose 113H 01/29/20 05:43: White Blood Count 7.0, Red Blood Count 5.41, Hemoglobin 14.9, Hematocrit 47.1, Mean Corpuscular Volume 87, Mean Corpuscular Hemoglobin 27.6, Mean Corpuscular Hemoglobin Concent 31.7L, Red Cell Distribution Width 15.5H, Platelet Count 225, Mean Platelet Volume 10.2H, Neutrophils (%) (Auto) 45.3, Lymphocytes (%) (Auto) 39.8, Monocytes (%) (Auto) 8.6, Eosinophils (%) (Auto) 4.7H, Basophils (%) (Auto) 1.6, Sodium Level 143, Potassium Level 3.7, Chloride Level 104, Carbon Dioxide Level 31, Anion Gap 8, Blood Urea Nitrogen 19H, Creatinine 1.0, Estimat Glomerular Filtration Rate > 60, Glucose Level 113H, Calcium Level 9.2 Height (Feet): 6 Height (Inches): 0.00 Weight (Pounds): 199 General Appearance: lethargic EENT: normal ENT inspection Neck: normal alignment Cardiovascular: normal peripheral pulses, normal rate, regular rhythm Respiratory/Chest: chest wall non-tender, lungs clear, normal breath sounds Abdomen: normal bowel sounds, non tender, soft Extremities: normal inspection Edema: no edema noted Arm (L), no edema noted Arm (R), no edema noted Leg (L), no edema noted Leg (R), no edema noted Pedal (L), no edema noted Pedal (R), no edema noted Generalized Neurologic: motor weakness Skin: normal pigmentation, warm/dry Assessment/Plan Problem List: (1) Renal failure (ARF), acute on chronic ICD Codes: N17.9 - Acute kidney failure, unspecified; N18.9 - Chronic kidney disease, unspecified SNOMED: 868660840 (2) COPD (chronic obstructive pulmonary disease) ICD Codes: J44.9 - Chronic obstructive pulmonary disease, unspecified SNOMED: 33391182 (3) Diabetes mellitus ICD Codes: E11.9 - Type 2 diabetes mellitus without complications SNOMED: 62926196 (4) UTI (urinary tract infection) ICD Codes: N39.0 - Urinary tract infection, site not specified SNOMED: 40958653 (5) History of CVA (cerebrovascular accident) ICD Codes: Z86.73 - Personal history of transient ischemic attack (TIA), and cerebral infarction without residual deficits SNOMED: 819166943 (6) Suprapubic catheter dysfunction ICD Codes: T83.010A - Breakdown (mechanical) of cystostomy catheter, initial encounter SNOMED: 338746411 Status: unchanged Assessment/Plan: abx pt diet eval cbc bmp am uro f/u Jaylen Bear DO Jan 29, 2020 12:17
[2020-01-29] MEDS: D5 1/2NS 1,000 ML IV SCH (13:05)
--- NOTE | 2020-01-29 14:19 | NUR ---
CHARGE NURSE NOTE: Message left for to see patient regarding leaking suprapubic catheter.
--- NOTE | 2020-01-29 14:26 | NUR ---
CASE MANAGEMENT:REVIEW SI;CATHETER DYSFUNCTION. RENAL FAILURE. UTI. 98.9 83 20 153/55 96% ON RA BUN 19 IS;PREVACID GT BID HEPARIN SUBQ Q12 COREG GT Q12 IVF D5NS @ 60 ML/HR MED SURG STATUS DCP;FROM [facility]; UROLOGY CONSULT
--- NOTE | 2020-01-29 15:16 | Infectious Diseases Prog Note ---
Assessment/Plan Assessment: COVID19 neg x1 (01/25 rapid COVID PCR neg) Afebrile No leukocytosis Suprapubic cath malfunction- no current UTI at this point -01/25 ua no pyuria, nit +, leuk +3; ucx represents colonization URINE CULTURE Preliminary Organism 1 ENTEROCOCCUS FAECALIS COLONY COUNT: >100,000 CFU/ML Organism 2 STAPHYLOCOCCUS AUREUS COLONY COUNT: 50,000 - 60,000 CFU/ML SENSITIVITY TO FOLLOW ENT FAECAL M.I.C. RX --------- --- AMPICILLIN <=2 S LEVOFLOXACIN >=8 R NITROFURANTOIN <=16 S TETRACYCLINE >=16 R VANCOMYCIN 1 S hx of Sepsis 2ry to Morganella UTI and Proteus bacteremia 05/2019 -05/22 SP Suprapubic catheter exchange -u/a wbc 40-60, nit neg, leuk +3; Ucx >100k M. morganii (R amp, Ancef, cipro, bactrim; I Levaquin; otherwise S) -05/17 Bcx 07/11 P. mirabilis, probable AmpC (S Zosyn, Meropenem); 05/[address] abd/p: Cholelithiasis. Bilateral nephrolithiasis. Stones in the bilateral renal pelvises and proximal ureters. 5-6 mm stone in the left mid ureter. Mild-moderate obstructive changes. hx of Recurrent malfunctioning R nephrostomy tube -01/21/19 SP removal: Patent right ureter, without evidence of residual ureteral stone disease.Nephrostomy therefore no longer necessary, was removed -01/21/19 Renal US: Limited exam, with only visualization of the right kidney. Negative for right hydronephrosis. Echogenic right renal foci, may represent calculi or the patient's nephrostomy tube, favor the latter. -01/2019 u/a wbc 10-15, nit +, leuk +3; ucx >100k P. stuarti- S AMikacin, Ceftriaxone, Cefepime, Zosyn (likely colonizer) -01/03/19 SP replacement suprapubic catheter and R NT -12/13/18 SP NT exchange hx MRSA and proteus septic shock/bacteremia 10/2018 HTN COPD DVT Dm2 GERD paraplegia aphasia dysphagia s/p GT chronic respiratory failure s/p trach dependent recurrent UTIs CVA/TIA quadriplegia neurogenic bladder s/p suprapubic catheter NH resident ([facility]) CKD hx of MRSA and VRE colonization Plan: -Continue to monitor off abx unless febrile, leukocytosis, HD unstable -01/25 SP Cefepime x1 -f/u cx -Monitor CBC/CMP, temperatures -Uro eval Thank you for consulting [facility]. Will continue to follow along with you. Discussed miranda CHRISTOPHER. Subjective Allergies: Coded Allergies: VANCOMYCIN (Verified Allergy, Mild, Redness , 10/29/18) CIPROFLOXACIN (Verified Allergy, Unknown, 08/23/15) afebrile no leuckoytosis Objective Last 24 Hour Vital Signs Date Time Temp Pulse Resp B/P (MAP) Pulse Ox O2 Delivery O2 Flow Rate FiO2 01/29/20 12:00 98.1 69 17 119/77 (91) 99 01/29/20 09:00 Room Air 01/29/20 08:58 62 110/64 01/29/20 08:00 98.9 62 18 110/64 (79) 96 01/29/20 04:00 97.2 74 20 123/78 (93) 96 01/29/20 00:15 97.0 83 20 153/55 (87) 97 01/28/20 20:39 Room Air 01/28/20 20:21 69 125/81 01/28/20 20:17 97.2 69 18 125/81 (96) 96 01/28/20 16:00 98.1 92 20 121/84 (96) 96 Height (Feet): 6 Height (Inches): 0.00 Weight (Pounds): 199 General Appearance: no apparent distress, non-toxic, other - Chronically ill- appearing but is in no acute distress Head: normocephalic, atraumatic Eyes: bilateral eye normal inspection, bilateral eye PERRL ENT: hearing grossly normal, normal pharynx, no angioedema, normal voice Neck: full range of motion, supple/symm/no masses Respiratory: chest non-tender, lungs clear, normal breath sounds, speaking full sentences Cardiovascular #1: regular rate, rhythm, no edema Gastrointestinal: normal bowel sounds, non tender, soft, non-distended, no guarding, no rebound Microbiology Date/Time Source Procedure Growth Status 01/26/20 16:55 Urine,Clean Catch Urine Culture - Preliminary Enterococcus Faecalis Staphylococcus Aureus Resulted Laboratory Tests Test 01/28/20 16:14 01/29/20 05:43 POC Whole Blood Glucose 113 MG/DL (74-106) H White Blood Count 7.0 K/UL (4.8-10.8) Red Blood Count 5.41 M/UL (4.70-6.10) Hemoglobin 14.9 G/DL (14.2-18.0) Hematocrit 47.1 % (42.0-52.0) Mean Corpuscular Volume 87 FL (80-99) Mean Corpuscular Hemoglobin 27.6 PG (27.0-31.0) Mean Corpuscular Hemoglobin Concent 31.7 G/DL (32.0-36.0) L Red Cell Distribution Width 15.5 % (11.6-14.8) H Platelet Count 225 K/UL (150-450) Mean Platelet Volume 10.2 FL (6.5-10.1) H Neutrophils (%) (Auto) 45.3 % (45.0-75.0) Lymphocytes (%) (Auto) 39.8 % (20.0-45.0) Monocytes (%) (Auto) 8.6 % (1.0-10.0) Eosinophils (%) (Auto) 4.7 % (0.0-3.0) H Basophils (%) (Auto) 1.6 % (0.0-2.0) Sodium Level 143 MMOL/L (136-145) Potassium Level 3.7 MMOL/L (3.5-5.1) Chloride Level 104 MMOL/L (98-107) Carbon Dioxide Level 31 MMOL/L (21-32) Anion Gap 8 mmol/L (5-15) Blood Urea Nitrogen 19 mg/dL (7-18) H Creatinine 1.0 MG/DL (0.55-1.30) Estimat Glomerular Filtration Rate > 60 mL/min (>60) Glucose Level 113 MG/DL (74-106) H Calcium Level 9.2 MG/DL (8.5-10.1) Current Medications Medications (Trade) Dose Ordered Sig/Fab Route PRN Reason Start Time Stop Time Status Last Admin Dose Admin Acetaminophen (Tylenol) 650 mg Q4H PRN GT Mild Pain (Pain Scale 1-3) 01/26/20 18:45 02/25/20 18:44 Acetaminophen (Tylenol) 650 mg Q4H PRN GT Moderate Pain (Pain Scale 4-6) 01/26/20 18:45 02/25/20 18:44 Ascorbic Acid (Vitamin C) 500 mg DAILY GT 01/27/20 09:00 02/26/20 08:59 01/29/20 08:58 Barium Sulfate (Varibar Honey) 250 ml NOW PRN RAD 01/26/20 19:30 01/29/20 19:22 Barium Sulfate (Varibar Novinger) 240 ml NOW PRN RAD 01/26/20 19:30 01/29/20 19:22 Barium Sulfate (Varibar Pudding) 230 ml NOW PRN RAD 01/26/20 19:30 01/29/20 19:22 Barium Sulfate (Varibar Thin Liquid powder) 148 gm NOW PRN RAD 01/26/20 19:30 01/29/20 19:22 Bisacodyl (Dulcolax) 10 mg DAILYPRN PRN RECTAL Constipation 01/26/20 18:45 04/25/20 18:44 Carvedilol (Coreg) 6.25 mg EVERY 12 HOURS GT 01/26/20 21:00 02/25/20 20:59 01/28/20 20:21 Dextrose (Dextrose 50%) 25 ml Q30M PRN IV Hypoglycemia 01/26/20 19:00 04/25/20 18:59 Dextrose (Dextrose 50%) 50 ml Q30M PRN IV Hypoglycemia 01/26/20 19:00 04/25/20 18:59 Dextrose/Sodium Chloride 1,000 ml @ 60 mls/hr [id number] IV 01/26/20 18:45 02/25/20 18:44 01/28/20 05:12 Docusate Sodium (Colace) 250 mg DAILY GT 01/27/20 09:00 02/26/20 08:59 01/29/20 08:58 Heparin Sodium (Porcine) (Heparin 5000 units/ml) 5,000 units EVERY 12 HOURS SUBQ 01/26/20 21:00 03/11/20 20:59 01/29/20 09:13 Insulin Aspart (NovoLOG) BEFORE MEALS AND HS SUBQ 01/26/20 21:00 04/25/20 20:59 Lansoprazole (Prevacid) 30 mg BID GT 01/26/20 21:00 02/25/20 20:59 01/29/20 08:58 Magnesium Hydroxide (Mom) 30 ml QHS PRN GT Constipation 01/26/20 18:45 02/25/20 18:44 Ondansetron HCl (Zofran) 4 mg Q4H PRN IVP Nausea & Vomiting 01/28/20 05:45 02/27/20 05:44 01/28/20 06:11 Sodium Phosphate (Fleet's Sodium Phosl Enema) 133 ml QOD PRN RECTAL Constipation 01/26/20 18:45 02/25/20 18:44 Dorothea Macario M.D. Jan 29, 2020 15:16
[2020-01-29 16:00] VITALS: BP 103/75
--- NOTE | 2020-01-29 16:17 | NUR ---
NURSE NOTES:SKIN/WOUND ASSESSMENT Skin intact . Bilateral heels and sacral Optifoam applied for protection . Heels offloaded with pillow.Patient alert and able to help with turning.
--- NOTE | 2020-01-29 19:42 | NUR ---
NURSE HAND-OFF: Important Events on Shift: AWAITING DR GROSSMAN'S EVAL OF LEAKING SUPRAPUBIC CATH. RN LEFT MESSAGE FOR DR MOROCHO AND MD SPOKE WITH CRN REGARDING CONSULT. Patient Status: STATUS Diet: GTF GLUCERNA 1.2 AT 75ML/HR. Pending Orders: N/A Pending Results/Labs:N/A Pending MD notification:N/A Latest Vital Signs: Temperature 97.5 , Pulse 65 , B/P 103 /75 , Respiratory Rate 18 , O2 SAT 98 , Room Air, O2 Flow Rate . Vital Sign Comment: STABLE Latest Buck Fall Score: 70 Fall Risk: High Risk Safety Measures: Call light Within Reach, Bed Alarm Zone 1, Side Rails Side Rails x2, Bed position Low and Locked. Fall Precautions: Yellow Socks Yellow Gown Door Sign Patient Fall Education Report given to Kinza WASHINGTON RN.
--- NOTE | 2020-01-29 19:50 | NUR ---
NURSE NOTES: Received report from MICHAEL RN.The patient is awake but was not verbally responsive when spoken to him. The Resp is even and unlabored and he is room air. He has a suprapubic catheter that was leaking urine and will be seen by Dr. Munoz as indicated in the shift report.The patient also has a Gtube running Glucerna 1.2 @ 75 ml/hr.Placement check was done and it is intact with <8 ml of residual noted.He has a left hand 24g that is patent and asymptomatic.The left heel redness is covered with Optifoam.The bed in low and locked level with call light within easy reach.Bed-siderails is up x3 with bedside alarm on. will continue to monitor
[2020-01-29 20:00] VITALS: BP 109/74
[2020-01-30] VITALS: BP 115/72
[2020-01-30 04:00] VITALS: BP 121/78
--- NOTE | 2020-01-30 04:25 | NUR ---
NURSE NOTES: The is no RAMESH noted tonight. The patient has been sleeping for about 8 hrs and does not seem to be in any distress.The HOB is upright . Will continue to monitor
--- NOTE | 2020-01-30 06:00 | NUR ---
NURSE NOTES: The patient has some episodes of anxiety and agitations.He pulled out his IV line and also refused blood withdrawal. A new line was inserted on the left arm 24g. Will followup with lab for blood withdrawal.
[2020-01-30] MEDS: D5 1/2NS 1,000 ML IV SCH (06:06)
[2020-01-30] MEDS: NovoLOG Insulin Flexpen SUBQ SCH ×3 (06:09→16:30)
--- NOTE | 2020-01-30 07:16 | NUR ---
HAND-OFF: Report given to Jorge CHRISTOPHER.
--- NOTE | 2020-01-30 07:55 | NUR ---
NURSE NOTES: PT AXOX2, RESTING IN BED. IN NO APPARENT DISTRESS AT THIS TIME. PT IS CALM AND ONLY ANSWERS "YES" OR "NO" TO RN'S QUESTIONS. WHEN RN ASKED IF PT WAS DOING OK, PT REPLIED "NO" BUT DID NOT ELABORATE WHEN ASKED TO BE MORE SPECIFIC. NO SIGNS OF DISTRESS OR PAIN. BED IN LOWEST POSITION WITH BEDSIDE RAILS X3 RAISED. BED ALARM ON ZONE 1. PT IN HIGH AGUILAR'S POSITION FOR ASPIRATION PRECAUTIONS. PER HAND-OFF REPORT, PT WAS NOT SEEN BY DR GROSSMAN OVERNIGHT. RN LEFT MESSAGE FOR DR LEÓN REGARDING PENDING EVAL FROM UROLOGY. WILL CONTINUE TO MONITOR.
[2020-01-30 08:00] VITALS: BP 119/78
[2020-01-30] MEDS: Carvedilol 6.25mg Tab GT SCH (09:00)
--- NOTE | 2020-01-30 09:13 | General Progress Note ---
Subjective Constitutional: Reports: weakness Allergies: Coded Allergies: VANCOMYCIN (Verified Allergy, Mild, Redness , 10/29/18) CIPROFLOXACIN (Verified Allergy, Unknown, 08/23/15) All Systems: reviewed and negative except above Subjective calm in bed Objective Last 24 Hour Vital Signs Date Time Temp Pulse Resp B/P (MAP) Pulse Ox O2 Delivery O2 Flow Rate FiO2 01/30/20 08:00 97.4 61 18 119/78 (92) 99 01/30/20 04:00 98.5 64 20 121/78 (92) 96 01/30/20 00:00 97.5 71 18 115/72 (86) 96 01/29/20 21:00 Room Air 01/29/20 20:46 72 123/74 01/29/20 20:00 97.8 70 18 109/74 (86) 97 01/29/20 16:00 97.5 65 18 103/75 (84) 98 01/29/20 12:00 98.1 69 17 119/77 (91) 99 Intake and Output 01/29/20 01/30/20 19:00 07:00 Intake Total 1185 ml 1705 ml Output Total 80 ml Balance 1185 ml 1625 ml Intake Free Water 180 ml 130 ml IV Total 180 ml 600 ml Tube Feeding 825 ml 975 ml Output Urine Total 80 ml Laboratory Tests 01/29/20 16:22: POC Whole Blood Glucose 107H Height (Feet): 6 Height (Inches): 0.00 Weight (Pounds): 199 General Appearance: lethargic EENT: normal ENT inspection Neck: normal alignment Cardiovascular: normal peripheral pulses, normal rate, regular rhythm Respiratory/Chest: chest wall non-tender, lungs clear, normal breath sounds Abdomen: normal bowel sounds, non tender, soft Extremities: normal inspection Edema: no edema noted Arm (L), no edema noted Arm (R), no edema noted Leg (L), no edema noted Leg (R), no edema noted Pedal (L), no edema noted Pedal (R), no edema noted Generalized Neurologic: motor weakness Skin: normal pigmentation, warm/dry Assessment/Plan Problem List: (1) Renal failure (ARF), acute on chronic ICD Codes: N17.9 - Acute kidney failure, unspecified; N18.9 - Chronic kidney disease, unspecified SNOMED: 066025382 (2) COPD (chronic obstructive pulmonary disease) ICD Codes: J44.9 - Chronic obstructive pulmonary disease, unspecified SNOMED: 43180667 (3) Diabetes mellitus ICD Codes: E11.9 - Type 2 diabetes mellitus without complications SNOMED: 36741044 (4) UTI (urinary tract infection) ICD Codes: N39.0 - Urinary tract infection, site not specified SNOMED: 36897168 (5) History of CVA (cerebrovascular accident) ICD Codes: Z86.73 - Personal history of transient ischemic attack (TIA), and cerebral infarction without residual deficits SNOMED: 916739416 (6) Suprapubic catheter dysfunction ICD Codes: T83.010A - Breakdown (mechanical) of cystostomy catheter, initial encounter SNOMED: 145038201 Status: stable, progressing Assessment/Plan: abx pt diet eval cbc bmp am uro f/u dc plan Jaylen Bear DO Jan 30, 2020 09:13
[2020-01-30] MEDS: Ascorbic Acid 500mg tab GT SCH (09:14)
[2020-01-30] MEDS: Docusate 100mg/10ml Liq GT SCH (09:14)
--- NOTE | 2020-01-30 09:18 | NUR ---
RD ASSESSMENT & RECOMMENDATIONS SEE CARE ACTIVITY FOR COMPLETE ASSESSMENT DAILY ESTIMATED NEEDS: Needs based on obese, bedbound, TF [employer]/ 75.8kg abw 23-28 kcals/kg 5820-4895 total kcals 1.25-1.5 g protein/kg 95-114 g total protein 25-30 mL/kg 7468-4279 total fluid mLs NUTRITION DIAGNOSIS: * Swallowing difficulty related to dysphagia s/p cva as evidenced by pt dependent on PEG for all nutrition and hydration needs. * Increased kcal/prot needs R/T wound healing as evidenced by admitted w/ non-blanching erythema with shearing sacrum and R buttocks. CURRENT TF: Glucerna 1.2 @75 ENTERAL NUTRITION RECOMMENDATIONS: Glucerna 1.5 @ 50ml/hr x 24 hrs to provide 1200ml, 1800kcal, 99g prot, 911ml free water * Rec TF change to [employer] TF of Glucerna 1.5 to best meet est needs * Initiate TF @ 30ml/hr x 6 hrs, advance 10ml q 4-6 hrs as tolerated to goal * HOB over 30 degrees/ water flush per MD ADDITIONAL RECOMMENDATIONS: 1) Calibrated bedscale wt for accurate CBW 2) WC: no wounds per eval. 3) Monitor lytes, replete as needed 4) H/o DM, rec checking BG, niss as needed 5) Check A1C for eval of glycemic control . .
[2020-01-30] MEDS: Heparin 5000 units/ml inj SUBQ SCH (09:20)
--- NOTE | 2020-01-30 09:45 | NUR ---
NURSE NOTES: DR GROSSMAN WAS AT BEDSIDE AND CHANGED SUPRAPUBIC CATH. INSERTED 18FR CATHETER. RN TO MONITOR FOR LEAKING. CATHETER DRAINING CLEAR YELLOW URINE BY GRAVITY. G-TUBE SITE EXCORIATION CLEANSED WITH WATER AND SOAP, PATTED DRY LIGHTLY. APPLIED CAVILON WIPE AND TRIAD CREAM. COVERED WITH LOOSE DRY DRESSING. PT IN NO APPARENT DISTRESS AT THIS TIME. WILL CONTINUE TO MONITOR. PT IS TOLERATING G-TUBE FEEDING WITH MINIMAL RESIDUAL.
[2020-01-30 12:00] VITALS: BP 119/81
--- NOTE | 2020-01-30 13:44 | Infectious Diseases Prog Note ---
Assessment/Plan Assessment: COVID19 neg x1 (01/25 rapid COVID PCR neg) Afebrile No leukocytosis Suprapubic cath malfunction- no current UTI at this point -01/29 SP Suprapubic exchange -01/25 ua no pyuria, nit +, leuk +3; ucx >100k E, faecalis (S amp, vanco, macrobid), 50-60k MRSA (S bactrim, vanco, tetracycline, macrobid); represents colonization hx of Sepsis 2ry to Morganella UTI and Proteus bacteremia 05/2019 -05/22 SP Suprapubic catheter exchange -u/a wbc 40-60, nit neg, leuk +3; Ucx >100k M. morganii (R amp, Ancef, cipro, bactrim; I Levaquin; otherwise S) -05/17 Bcx 07/11 P. mirabilis, probable AmpC (S Zosyn, Meropenem); 05/[address] abd/p: Cholelithiasis. Bilateral nephrolithiasis. Stones in the bilateral renal pelvises and proximal ureters. 5-6 mm stone in the left mid ureter. Mild-moderate obstructive changes. hx of Recurrent malfunctioning R nephrostomy tube -01/21/19 SP removal: Patent right ureter, without evidence of residual ureteral stone disease.Nephrostomy therefore no longer necessary, was removed -01/21/19 Renal US: Limited exam, with only visualization of the right kidney. Negative for right hydronephrosis. Echogenic right renal foci, may represent calculi or the patient's nephrostomy tube, favor the latter. -01/2019 u/a wbc 10-15, nit +, leuk +3; ucx >100k P. stuarti- S AMikacin, Ceftriaxone, Cefepime, Zosyn (likely colonizer) -01/03/19 SP replacement suprapubic catheter and R NT -12/13/18 SP NT exchange hx MRSA and proteus septic shock/bacteremia 10/2018 HTN COPD DVT Dm2 GERD paraplegia aphasia dysphagia s/p GT chronic respiratory failure s/p trach dependent recurrent UTIs CVA/TIA quadriplegia neurogenic bladder s/p suprapubic catheter [facility] resident ([facility]) CKD hx of MRSA and VRE colonization Plan: -Given urologic manipulation- start PO Macrobid 100mg bid x3 days -01/25 SP Cefepime x1 -f/u cx -Monitor CBC/CMP, temperatures -Uro f/u Thank you for consulting [facility]. Will continue to follow along with you. Leslie jean RN. Subjective Allergies: Coded Allergies: VANCOMYCIN (Verified Allergy, Mild, Redness , 10/29/18) CIPROFLOXACIN (Verified Allergy, Unknown, 08/23/15) afebrile no leuckoytosis Objective Last 24 Hour Vital Signs Date Time Temp Pulse Resp B/P (MAP) Pulse Ox O2 Delivery O2 Flow Rate FiO2 01/30/20 12:00 98.4 69 19 119/81 (94) 98 01/30/20 09:00 Room Air 01/30/20 09:00 61 119/78 01/30/20 08:00 97.4 61 18 119/78 (92) 99 01/30/20 04:00 98.5 64 20 121/78 (92) 96 01/30/20 00:00 97.5 71 18 115/72 (86) 96 01/29/20 21:00 Room Air 01/29/20 20:46 72 123/74 01/29/20 20:00 97.8 70 18 109/74 (86) 97 01/29/20 16:00 97.5 65 18 103/75 (84) 98 Height (Feet): 6 Height (Inches): 0.00 Weight (Pounds): 199 General Appearance: no apparent distress, non-toxic, other - Chronically ill- appearing but is in no acute distress Head: normocephalic, atraumatic Eyes: bilateral eye normal inspection, bilateral eye PERRL ENT: hearing grossly normal, normal pharynx, no angioedema, normal voice Neck: full range of motion, supple/symm/no masses Respiratory: chest non-tender, lungs clear, normal breath sounds, speaking full sentences Cardiovascular #1: regular rate, rhythm, no edema Gastrointestinal: normal bowel sounds, non tender, soft, non-distended, no guarding, no rebound Laboratory Tests Test 01/29/20 16:22 POC Whole Blood Glucose 107 MG/DL (74-106) H Current Medications Medications (Trade) Dose Ordered Sig/Fab Route PRN Reason Start Time Stop Time Status Last Admin Dose Admin Acetaminophen (Tylenol) 650 mg Q4H PRN GT Mild Pain (Pain Scale 1-3) 01/26/20 18:45 02/25/20 18:44 Acetaminophen (Tylenol) 650 mg Q4H PRN GT Moderate Pain (Pain Scale 4-6) 01/26/20 18:45 02/25/20 18:44 Ascorbic Acid (Vitamin C) 500 mg DAILY GT 01/27/20 09:00 02/26/20 08:59 01/30/20 09:14 Bisacodyl (Dulcolax) 10 mg DAILYPRN PRN RECTAL Constipation 01/26/20 18:45 04/25/20 18:44 Carvedilol (Coreg) 6.25 mg EVERY 12 HOURS GT 01/26/20 21:00 02/25/20 20:59 01/29/20 20:46 Dextrose (Dextrose 50%) 25 ml Q30M PRN IV Hypoglycemia 01/26/20 19:00 04/25/20 18:59 Dextrose (Dextrose 50%) 50 ml Q30M PRN IV Hypoglycemia 01/26/20 19:00 04/25/20 18:59 Dextrose/Sodium Chloride 1,000 ml @ 60 mls/hr [id number] IV 01/26/20 18:45 02/25/20 18:44 01/30/20 06:06 Docusate Sodium (Colace) 250 mg DAILY GT 01/27/20 09:00 02/26/20 08:59 01/30/20 09:14 Heparin Sodium (Porcine) (Heparin 5000 units/ml) 5,000 units EVERY 12 HOURS SUBQ 01/26/20 21:00 03/11/20 20:59 01/30/20 09:20 Insulin Aspart (NovoLOG) BEFORE MEALS AND HS SUBQ 01/26/20 21:00 04/25/20 20:59 Lansoprazole (Prevacid) 30 mg BID GT 01/26/20 21:00 02/25/20 20:59 01/30/20 09:14 Magnesium Hydroxide (Mom) 30 ml QHS PRN GT Constipation 01/26/20 18:45 02/25/20 18:44 Ondansetron HCl (Zofran) 4 mg Q4H PRN IVP Nausea & Vomiting 01/28/20 05:45 02/27/20 05:44 01/28/20 06:11 Sodium Phosphate (Fleet's Sodium Phosl Enema) 133 ml QOD PRN RECTAL Constipation 01/26/20 18:45 02/25/20 18:44 Dorothea Macario M.D. Jan 30, 2020 13:44
--- NOTE | 2020-01-30 14:33 | NUR ---
PACKING INSPECTOR NOTE DR LEÓN INFORMED THAT PATIENT CLEARED BY URO. GAVE ORDER TO DC TO SNF WITH HOSPITAL MEDS. STATED MED RECON HAS BEEN COMPLETED. ORDER NOTED AND CARRIED OUT.
[2020-01-30] MEDS ORDERED: NITROFURANTOIN100 M2 ORAL (14:44)
--- NOTE | 2020-01-30 14:44 | NUR ---
*-*DISCHARGE PLANNED*-* PATIENT HAS BEEN ACCEPTED AND WILL BE DISCHARGED TO: [facility] P: [phone] NURSE TO NURSE REPORT ROOM# 11.A SKILLED [facility] [employer] COORDINATOR SET UP 4:45PM S/W OMKAR [id number].
--- NOTE | 2020-01-30 15:37 | NUR ---
NURSE NOTES: DISCHARGE ORDER NOTED FROM DR LEÓN. PER , HE DID MED RECON. DR GROSSMAN CLEARED PT FOR DISCHARGE. NO LEAKING AT SITE OF SUPRAPUBIC CATH. DR BERRY ALSO CLEARED PT FOR DISCHARGE WITH MACROBID 100MG PO BID X3 DAYS UPON DISCHARGE. RN GAVE REPORT TO MACO AT [facility] AND MADE AWARE OF LEFT HEEL REDNESS AND G-TUBE SITE EXCORIATION. RN SPOKE TO PT'S SISTER HEBERT SEALS AND MADE AWARE OF DISCHARGE. [facility] FOR TACTICAL [facility] CONTROL PARTY ETA 1645 HRS.
[2020-01-30 16:00] VITALS: BP 134/91
--- NOTE | 2020-01-30 19:23 | NUR ---
NURSE HAND-OFF: Important Events on Shift: [facility]. WAITING FOR [facility]. REPORT GIVEN TO MACO. IV ACCESS DISCONTINUED. NO BELONGINGS. RN NOTIFIED NEXT OF KIN. Patient Status: [] Diet: GTF GLUCERNA 1.2 AT 75ML/HR. Pending Orders: N/A Pending Results/Labs:N/A Pending MD notification:N/A Latest Vital Signs: Temperature 97.3 , Pulse 63 , B/P 134 /91 , Respiratory Rate 18 , O2 SAT 99 , Room Air, O2 Flow Rate . Vital Sign Comment: STABLE Latest Buck Fall Score: 70 Fall Risk: High Risk Safety Measures: Call light Within Reach, Bed Alarm Zone 1, Side Rails Side Rails x2, Bed position Low and Locked. Fall Precautions: Yellow Socks Yellow Gown Door Sign Patient Fall Education Report given to Jorge TEJEDA RN.
--- NOTE | 2020-01-30 19:33 | NUR ---
NURSE NOTES: Received report from CANDI Patel. AAO x 2, on room air. Supra pubic cath working well without leaking. G tube feeding stopped for DC. HOB elevated. Ambulance came to sent pt to [facility] view [facility]. ID band, IV access removed. No belongings noted. Vitals stable. Pt discharged with stable condition. Family notified previous shift.
--- NOTE | 2020-01-30 20:15 | Consultation ---
DATE OF CONSULTATION: 01/30/2020 REASON FOR CONSULTATION: Leaking suprapubic catheter. The patient was admitted with multiple medical issues. He was found to have leaking suprapubic tube. I was approached to help with this leakage. PAST MEDICAL HISTORY: From the chart as well as medication list and allergies. The patient is unable to communicate or give any history. PHYSICAL EXAMINATION: He is contracted. His abdomen was slightly distended. Suprapubic fistula is in normal position without any evidence of . His laboratory data was reviewed as well. The balloon of the suprapubic catheter was drained and the catheter was removed. An 18-English suprapubic tube was placed. The balloon was inflated to 20 mL and left indwelling. Bladder was irrigated. No evidence of leakage. The patient tolerated the procedure well and is to be discharged per primary care physician. Will Funk M.D. DR: ANGELA JOB#: [id number] CC:
--- NOTE | 2020-02-01 13:39 | Discharge Summary ---
Discharge Summary Discharge Summary _ DATE OF ADMISSION: 01/26/2020 DATE OF DISCHARGE: 01/30/2020 DISCHARGED BY: Dr. Jaylen Bear CONSULTANTS: Dr. Dorothea Funk BRIEF HOSPITAL COURSE: Patient is a 59-year-old male from [facility], who presented due to a leak in the suprapubic catheter. He has medical history of diabetes, CVA, encephalopathy, COPD, anemia and renal failure. Upon evaluation at the ED, vital signs were stable. Suprapubic catheter was not draining however there was significant amount of leakage of urine around the catheter. Blood work were unremarkable. Urine was noted to be cloudy. He was given cefepime. He had a prior history of Proteus UTI. Rapid Covid PCR was negative. Patient was admitted to medical floor. Infectious disease specialist was consulted. Patient has history of sepsis secondary to Morganella UTI and Proteus bacteremia in May 2019. Patient is currently afebrile and there was no leukocytosis. He was observed off antibiotics. Urologist was consulted. Suprapubic catheter was removed. A new 18 Georgian suprapubic tube was inserted. Bladder was irrigated and there was no evidence of leakage. Patient tolerated procedure well. Due to urologic manipulation, patient was started on Macrobid 100 mg twice daily. Patient was eventually cleared for discharge. FINAL DIAGNOSES: Suprapubic catheter malfunction, status post replacement, no current UTI at this time History of sepsis secondary to Morganella UTI and Proteus bacteremia History of recurrent malfunctioning right nephrostomy tube History of MRSA and Proteus sepsis Hypertension COPD History of DVT Diabetes mellitus GERD Quadriplegia Aphasia Dysphagia with G-tube Chronic respiratory failure status post trach dependent Neurogenic bladder with suprapubic catheter s/p replacement DISPOSITION: DC back to SNF. DISCHARGE MEDICATIONS: Refer to Discharge Medication List. I have been assigned to complete a discharge summary on this account, I was not involved with the patient's management.--TERRA [place] Jacqueline Robles NP Feb 01, 2020 13:39
== END 2020-01-30 19:40 | DRG 466 ==
LOC: EDBD 13:33 → EDUNIT# 13:33 → EMR 14:06 → 4E 14:35 → EDBEDREQ 15:21
PROC: 0T2BX0Z Change Drainage Device in Bladder, External Approach (ICD-10-PCS; principal; 2020-01-30)
DX: T83.090A Other mechanical complication of cystostomy catheter, initial encounter (principal); G82.50 Quadriplegia, unspecified; G93.40 Encephalopathy, unspecified; J96.10 Chronic respiratory failure, unspecified whether with hypoxia or hypercapnia; I12.9 Hypertensive chronic kidney disease with stage 1 through stage 4 chronic kidney disease, or unspecified chronic kidney disease; N18.9 Chronic kidney disease, unspecified; N39.0 Urinary tract infection, site not specified; J44.9 Chronic obstructive pulmonary disease, unspecified; E46 Unspecified protein-calorie malnutrition; E11.9 Type 2 diabetes mellitus without complications; Z79.4 Long term (current) use of insulin; Z86.73 Personal history of transient ischemic attack (TIA), and cerebral infarction without residual deficits; Y83.8 Other surgical procedures as the cause of abnormal reaction of the patient, or of later complication, without mention of misadventure at the time of the procedure; Z86.14 Personal history of Methicillin resistant Staphylococcus aureus infection; Z86.718 Personal history of other venous thrombosis and embolism; K21.9 Gastro-esophageal reflux disease without esophagitis; R47.01 Aphasia; R13.10 Dysphagia, unspecified; N31.9 Neuromuscular dysfunction of bladder, unspecified; Z88.1 Allergy status to other antibiotic agents; N17.9 Acute kidney failure, unspecified
CPT/HCPCS: 36415; 80048; 80053; 81003; 82962; 85025; 87086; 87181; 96365; 96372; 99285; J1815; J2405; U0002